=== PATIENT | female | born 1970 | race Caucasian/White ===

== ENCOUNTER 2022-05-16 16:11 | Outpatient (CLI) | payer OTHER, SELFPAY ==
[2022-05-16 20:01] LABS: Albumin* 4.2 g/dL (3.3-5.0); Chloride* 97 mmol/L (96-114); Sodium* 137 mmol/L (135-149)
[2022-05-16 20:02] LABS: Potassium* 4.3 mmol/L (3.6-5.1)
[2022-05-16 20:04] LABS: Alanine Aminotransferase* 15 U/L (4-35); Alkaline Phosphatase* 95 U/L (40-150); Aspartate Amino Transferase* 21 U/L (12-35); Bilirubin Total* 0.3 mg/dL (0.1-1.5); Blood Urea Nitrogen* 22 mg/dL (7-30); Calcium* 9.1 mg/dL (8.4-10.6); Carbon Dioxide* 30 mmol/L (20-32); Cholesterol* 161 mg/dL (90-199); Creatinine* 1.1 mg/dL (0.5-1.5); Estimated Glomerular Filt Rate 60 ml/min; Glucose* 94 mg/dL (60-115); Total Protein* 7.4 g/dL (6.0-8.3); Triglycerides* 257 mg/dL (40-149)
[2022-05-16 20:05] LABS: HDL Cholesterol* 47 mg/dL (>=50); LDL Cholesterol Calculated 63 mg/dL (<100)
[2022-05-16 20:25] LABS: Vitamin D 25 Hydroxy* 49 ng/mL (30-80)
[2022-05-16 22:07] LABS: Vitamin B12* 378 pg/mL (243-894)
== END 2022-05-16 16:12 | disposition home or self-care (01) ==
PROVIDERS: PCP Family Medicine; Visit Provider Family Medicine
DX: Z00.00 Encounter for general adult medical examination without abnormal findings (principal); I10 Essential (primary) hypertension; R53.83 Other fatigue; E78.5 Hyperlipidemia, unspecified; E53.8 Deficiency of other specified B group vitamins; N18.9 Chronic kidney disease, unspecified
CPT/HCPCS: 80053; 80061; 82306; 82607; 84443

== ENCOUNTER 2022-06-24 12:06 | Outpatient (CLI) | payer OTHER, SELFPAY | END 2022-06-24 12:07 | disposition home or self-care (01) | LOC: NFLDUCREF 06-29 09:51 | PROVIDERS: PCP Family Medicine; Visit Provider Family Medicine | DX: R05.9 Cough, unspecified (principal); R39.89 Other symptoms and signs involving the genitourinary system; N39.0 Urinary tract infection, site not specified | CPT/HCPCS: 87086; 87186 ==

== ENCOUNTER 2022-10-08 12:52 | Outpatient (CLI) | payer OTHER, SELFPAY ==
[2022-10-08 13:01] LABS: Bacteria Urine Few; Squamous Epithelial Cell Urine Few (None-Few); WBC Clumps Urine Few
== END 2022-10-08 12:53 | disposition home or self-care (01) ==
LOC: NFLDUCREF 12:52
PROVIDERS: PCP Family Medicine; Visit Provider Nurse Practitioner Family
DX: R30.0 Dysuria (principal); N39.0 Urinary tract infection, site not specified
CPT/HCPCS: 81015; 87086; 87186

== ENCOUNTER 2022-10-17 15:04 | Outpatient (CLI) | payer OTHER, SELFPAY | END 2022-10-17 15:05 | disposition home or self-care (01) | PROVIDERS: PCP Family Medicine; Visit Provider Family Medicine | DX: R30.0 Dysuria (principal); N39.0 Urinary tract infection, site not specified | CPT/HCPCS: 87086; 87186 ==

== ENCOUNTER 2023-03-29 07:46 | Outpatient (CLI) | payer OTHER, SELFPAY ==
--- NOTE | 2023-03-29 08:15 | CRLHL7_ITS ---
For Patients: As a result of the Century Cures Act, medical imaging exams and procedure reports are released immediately into your electronic medical record. You may view this report before your referring provider. If you have questions, please contact your health care provider. BILATERAL SCREENING MAMMOGRAM WITH COMPUTER-AIDED DETECTION AND TOMOSYNTHESIS TECHNIQUE: CC and MLO views were obtained. These mammographic images have been obtained using full-field digital technique. These mammographic images were interpreted with the benefit of computer-aided detection. Breast Tomosynthesis was used in this interpretation. COMPARISON FILM: 10/13/21, 09/27/20, 07/21/2019. FINDINGS: The breasts are heterogeneously dense, which may obscure small masses IMPRESSION: There is no radiographic evidence for malignancy. ASSESSMENT: BI-RADS Category 2: Benign RECOMMENDATION: Routine screening mammogram in 1 year. A lay language report of this examination will be provided to the patient. Kirk Plunkett M.D. Diagnostic Radiologist [email or web address] BRANDY/Dictated by: Kirk Plunkett MD @ 04/09/2023 8:21:00 AM (Electronically Signed)
== END 2023-03-29 07:47 | disposition home or self-care (01) ==
PROVIDERS: PCP Family Medicine; Visit Provider Family Medicine
DX: Z12.31 Encounter for screening mammogram for malignant neoplasm of breast (principal); R92.2 Inconclusive mammogram
CPT/HCPCS: 77063; 77067

== ENCOUNTER 2023-04-19 07:01 | Outpatient (CLI) | payer OTHER, SELFPAY | END 2023-04-19 07:02 | disposition home or self-care (01) | LOC: NFLDREF 07:02 | PROVIDERS: PCP Family Medicine; Visit Provider Family Medicine | DX: R30.0 Dysuria (principal); N39.0 Urinary tract infection, site not specified | CPT/HCPCS: 87086 ==

== ENCOUNTER 2023-09-13 14:31 | Emergency (ER) | payer OTHER, SELFPAY ==
[2023-09-13] VITALS (20 sets, daily range): BP systolic 111–149; BP diastolic 78–90; PULSE 66–85; RESP 20; TEMP 35.7; O2SAT 92–99; BMI 29.7
--- NOTE | 2023-09-13 16:12 | ED.GENADULT ---
HPI - General Adult General Chief complaint: Weakness Stated complaint: Covid+, weakness Time Seen by Provider: 09/13/23 15:45 History of Present Illness HPI narrative: This is a 52-year-old female with a past medical history including anxiety, depression, chronic pain syndrome (follows with [facility] and is on [place] 1 tablet daily p.r.n.), sleep apnea, vitamin B12 deficiency, migraine headaches, hyperlipidemia, GERD, fibromyalgia. She is positive for coronavirus and is currently on day 6 of illness. She has been vaccinated with the 1st 2 shots of the COVID series and 1 booster but has not had any booster for a couple of years. She 1st developed symptoms on Sunday that included sore throat. Since then she has also developed cough, nasal congestion. She has had fatigue, body aches, nausea and poor appetite. No vomiting. She has had some small volumes of watery diarrhea but no bloody or mucousy stool. She has been fatigued and sleepy or than normal. Today she has also developed a headache that she thinks is turning into 1 of her migraines. She has also developed some sharp and shooting pain affecting the right lateral side of her chest that radiates down to her right flank. This pain has been present throughout the day today continuously since this morning, now more than 8 hours. No clear exertional component. She is not on Paxlovid. Her mother is also ill with COVID. She think she may have picked up COVID at work. No swelling in her legs. No history of DVT or PE. No history of coronary disease. She has been having urinary frequency for the past few days and thinks that she has UTI. She has been using [id number] AZO and as a result her urine has been orange. Related Data Home Medications Medication Instructions Recorded Confirmed estradiol 0.01% (0.1 mg/gram) g vaginal 05/16/22 05/24/23 vaginal cream levetiracetam 500 mg tablet tab PO 05/16/22 05/24/23 medical cannabis PO 05/16/22 05/24/23 onabotulinumtoxinA [Botox] intradermal 05/16/22 05/24/23 pregabalin 150 mg capsule 150 mg PO QDAY 05/16/22 09/13/23 rimegepant 75 mg disintegrating 75 mg PO Q OTHER DAY 05/16/22 09/13/23 [facility]) vitamin B complex (B 1 tab PO QDAY 10/17/22 09/13/23 Complex-Vitamin B12 tablet) desvenlafaxine 100 mg 100 mg PO QDAY 04/19/23 09/13/23 tablet,extended release 24 hr folic acid 400 mcg tablet 0.4 mg PO QDAY 05/24/23 09/13/23 Previous Rx's Medication Instructions Recorded duloxetine 60 mg capsule,delayed 60 mg PO QDAY #90 caps 09/29/22 release trazodone 50 mg tablet 50 mg PO QDAY #90 tabs 09/29/22 lisinopril 20 1 tab PO QDAY #90 tabs 04/17/23 mg-hydrochlorothiazide 25 mg tablet epinephrine 0.3 mg/0.3 mL 0.3 mg (0.3 mL) IM ONCE PRN 05/24/23 injection, auto-injector hypersensitivity reaction #2 ea omeprazole 20 mg capsule,delayed 20 mg PO QDAY #90 caps 05/24/23 release omega-3 acid ethyl esters 1 gram 1 cap PO QDAY #90 caps 07/17/23 capsule metoprolol succinate 25 mg 25 mg PO QDAY #90 tabs 08/07/23 tablet,extended release 24 hr rosuvastatin 20 mg tablet 20 mg PO QDAY #90 tabs 08/17/23 bupropion HCl 150 mg 24 hr tablet, 450 mg (3 x 150 mg) PO QDAY #90 08/22/23 extended release tabs cephalexin 500 mg capsule 500 mg PO BID #10 caps 09/13/23 Allergies Allergy/AdvReac Type Severity Reaction Status Date / Time [facility] d Allergy Severe Uncoded 05/24/23 07:55 flagyl Allergy Intermediate Uncoded 05/24/23 07:55 [facility] Medical History (Updated 09/13/23 @ 19:51 by Osman Bird MD) Urinary tract infection ?N39.0 - Urinary tract infection, site not specified (ICD-10) Intertriginous candidiasis ?B37.2 - Candidiasis of skin and nail (ICD-10) History of diverticulitis of colon (2014) ?Z87.19 - Personal history of other diseases of the digestive system (ICD-10) Frequent UTI ?N39.0 - Urinary tract infection, site not specified (ICD-10) Persistent insomnia ?G47.00 - Insomnia, unspecified (ICD-10) CKD (chronic kidney disease) ?N18.9 - Chronic kidney disease, unspecified (ICD-10) History of basal cell carcinoma (BCC) (2013) ?Z85.828 - Personal history of other malignant neoplasm of skin (ICD-10) Post concussive syndrome (04/16/16) ?F07.81 - Postconcussional syndrome (ICD-10) Major depressive disorder, recurrent episode, moderate (1985) ?F33.1 - Major depressive disorder, recurrent, moderate (ICD-10) History of non anemic vitamin B12 deficiency ?Z86.39 - Personal history of other endocrine, nutritional and metabolic disease (ICD-10) Hyperlipidemia ?E78.5 - Hyperlipidemia, unspecified (ICD-10) History of adenomatous polyp of colon ?Z86.010 - Personal history of colonic polyps (ICD-10) GERD (gastroesophageal reflux disease) ?K21.9 - Gastro-esophageal reflux disease without esophagitis (ICD-10) Fibromyalgia ?M79.7 - Fibromyalgia (ICD-10) Essential hypertension ?I10 - Essential (primary) hypertension (ICD-10) Chronic pain syndrome ?G89.4 - Chronic pain syndrome (ICD-10) Surgical History (Updated 05/16/22 @ 17:01 by Lela Giraldo MD) History of appendectomy (1984) ?Z90.49 - Acquired absence of other specified parts of digestive tract (ICD-10) History of tonsillectomy (1974) ?Z90.89 - Acquired absence of other organs (ICD-10) History of open reduction and internal fixation (ORIF) procedure (2006) ?Z98.890 - Other specified postprocedural states (ICD-10) Hx of LASIK (1993) ?Z98.890 - Other specified postprocedural states (ICD-10) History of total abdominal hysterectomy (1999) ?Z90.710 - Acquired absence of both cervix and uterus (ICD-10) Swallowing study performed (11/24/21) ?Z13.810 - Encounter for screening for upper gastrointestinal disorder (ICD-10) History of lumbar fusion (07/06/16) ?Z98.1 - Arthrodesis status (ICD-10) Family History (Updated 05/16/22 @ 16:56 by Lela Giraldo MD) Unknown History of non anemic vitamin B12 deficiency Father Diabetes Coronary artery disease High blood pressure Anxiety and depression Neuroendocrine cancer Brother Diabetes Asthma High blood pressure Paternal Grandmother Diabetes Hyperlipidemia Mother History of anesthesia reaction Basal cell carcinoma Chronic fatigue syndrome Maternal Grandmother Osteoporosis Uncle Family history of prostate cancer Lymphoma Parkinsonism, Onset Age: 60 Aunt Breast cancer, Onset Age: 47 Ovarian cancer, Onset Age: 47 Family/Other Breast cancer, Onset Age: 62 Social History (Updated 05/24/23 @ 08:22 by Lela Giraldo MD) Narrative: Lives with significant other for of 9 years, 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 [employer], 2 adult children, [employer] daily work, Maritza Thomas smokes 1cigarettes a day started 12 months ago, before then quit at age 29 with 25 pack years, drinks 7 drinks a week, uses marijuana daily Smoking Status: Current every day smoker How often do you have a drink containing alcohol: 2-3 times a week How many standard drinks containing alcohol do you have on a typical day: 1 or 2 How often do you have six or more drinks on one occasion: Never AUDIT-C Alcohol total score: 3 Non-prescribed substance use: denies use Little interest or pleasure in doing things: several days Feeling down, depressed, or hopeless: not at all Exam Narrative: Exam Narrative: Constitutional: Appears well-developed and well-nourished. Alert. Conversant but flat affect. Poor eye contact. Keeping her eyes closed. HENT: Head: Atraumatic. Constitutional: Appears well-developed and well-nourished. Alert. Conversant. Non toxic. HENT: Head: Atraumatic. Nose: Nose normal. Mouth/Throat: Oral mucosa is clear and moist. no trismus. Wearing a face mask because she is COVID positive. Eyes: Conjunctivae normal. EOM normal. Pupils equal, round, and reactive to light. No scleral icterus. Neck: Normal range of motion. Neck supple. No tracheal deviation present. No JVD. Cardiovascular: Normal rate, regular rhythm. No gallop. No friction rub. No murmur heard. Symmetric radial and PT artery pulses Pulmonary/Chest: Effort normal. No stridor. No respiratory distress. No wheezes. No rales. No rhonchi . No ribcage tenderness. Abdominal: Soft. Bowel sounds normal. No distension. No mass. No tenderness. No rebound. No guarding. Musculoskeletal: RUE: Normal range of motion. No tenderness. No deformity LUE: Normal range of motion. No tenderness. No deformity RLE: Normal range of motion. No edema. No tenderness. No deformity LLE: Normal range of motion. No edema. No tenderness. No deformity Lymph: No cervical adenopathy. Neurological: Alert and oriented to person, place, and time. Normal strength. CN II-VII intact. No sensory deficit. GCS eye subscore is 4. GCS verbal subscore is 5. GCS motor subscore is 6. Normal coordination Skin: Skin is warm and dry. No rash noted. No pallor. Normal capillary refill. Psychiatric: Normal mood. Flat affect. Const: Vital Signs, click to edit/add: Vital Signs - 24 hr 09/13/23 14:42 09/13/23 15:47 09/13/23 15:48 Temperature 96.2 F L Pulse Rate 71 73 Pulse Rate [Pulse Oximeter] 85 Respiratory Rate 20 Blood Pressure 119/88 Blood Pressure [Ri ght Upper Arm] 119/81 Pulse Oximetry 97 99 99 Oxygen Delivery Me thod Room Air 09/13/23 16:00 09/13/23 16:01 09/13/23 16:15 Temperature Pulse Rate 73 70 73 Pulse Rate [Pulse Oximeter] Respiratory Rate Blood Pressure 125/89 Blood Pressure [Ri ght Upper Arm] Pulse Oximetry 95 94 92 Oxygen Delivery Me thod 09/13/23 16:30 09/13/23 16:32 09/13/23 16:45 Temperature Pulse Rate 79 78 75 Pulse Rate [Pulse Oximeter] Respiratory Rate Blood Pressure 129/90 H Blood Pressure [Ri ght Upper Arm] Pulse Oximetry 97 96 95 Oxygen Delivery Me thod 09/13/23 17:00 09/13/23 17:02 09/13/23 17:15 Temperature Pulse Rate 76 68 66 Pulse Rate [Pulse Oximeter] Respiratory Rate Blood Pressure 149/88 H Blood Pressure [Ri ght Upper Arm] Pulse Oximetry 99 97 98 Oxygen Delivery Me thod 09/13/23 17:30 09/13/23 17:45 09/13/23 18:00 Temperature Pulse Rate 67 73 77 Pulse Rate [Pulse Oximeter] Respiratory Rate Blood Pressure Blood Pressure [Ri ght Upper Arm] Pulse Oximetry 98 95 95 Oxygen Delivery Me thod 09/13/23 18:02 09/13/23 18:15 09/13/23 18:30 Temperature Pulse Rate 78 76 75 Pulse Rate [Pulse Oximeter] Respiratory Rate Blood Pressure 137/86 Blood Pressure [Ri ght Upper Arm] Pulse Oximetry 95 96 94 Oxygen Delivery Me thod 09/13/23 19:02 09/13/23 20:02 Temperature Pulse Rate Pulse Rate [Pulse Oximeter] Respiratory Rate Blood Pressure 111/78 113/78 Blood Pressure [Ri ght Upper Arm] Pulse Oximetry Oxygen Delivery Me thod Course Course ED Course: Recheck-smiling and more alert after medications for her headache. She endorses feeling much better. Vital Signs Vital signs: Initial Vital Signs Temperature 96.2 F L 09/13/23 14:42 Temperature Source Temporal Artery Scan 09/13/23 14:42 Pulse Rate 85 09/13/23 14:42 Respiratory Rate 20 09/13/23 14:42 Blood Pressure 119/81 09/13/23 14:42 Blood Pressure Mean 93 09/13/23 14:42 Blood Pressure Position Sitting 09/13/23 14:42 Pulse Oximetry 97 09/13/23 14:42 Oxygen Delivery Method Room Air 09/13/23 14:42 Vital Signs Temperature 96.2 F L 09/13/23 14:42 Pulse Rate 85 09/13/23 14:42 Respiratory Rate 20 09/13/23 14:42 Blood Pressure 119/81 09/13/23 14:42 Pulse Oximetry 97 09/13/23 14:42 Oxygen Delivery Method Room Air 09/13/23 14:42 Temperature 96.2 F L 09/13/23 14:42 Pulse Rate 75 09/13/23 18:30 Respiratory Rate 20 09/13/23 14:42 Blood Pressure 113/78 09/13/23 20:02 Pulse Oximetry 94 09/13/23 18:30 Oxygen Delivery Method Room Air 09/13/23 14:42 Medications Administered Medications: Discontinued Medications Generic Name Dose Route Start Last Admin Trade Name Freq PRN Reason Stop Dose Admin Cephalexin HCl 500 mg 09/13/23 19:51 09/13/23 20:00 Cephalexin 500 Mg Capsule PO 09/13/23 19:52 500 mg ONCE ONE Administration Diphenhydramine HCl 25 mg 09/13/23 16:37 09/13/23 17:00 Diphenhydramine 50 Mg/Ml Inj IVP 09/13/23 16:38 25 mg ONCE ONE Administration Sodium Chloride 1,000 mls @ 1,000 mls/hr 09/13/23 16:45 09/13/23 18:00 0.9 % Sodium Chloride 1000 Ml IV 09/13/23 17:44 Infused .Q1H EMIR Infusion Ketorolac Tromethamine 15 mg 09/13/23 16:37 09/13/23 17:00 Ketorolac 15 Mg/Ml Inj IVP 09/13/23 16:38 15 mg ONCE ONE Administration Metoclopramide HCl 10 mg 09/13/23 16:37 09/13/23 17:00 Metoclopramide Hcl 5 Mg/Ml Inj IVP 09/13/23 16:38 10 mg ONCE ONE Administration Medical Decision Making MDM Narrative Medical decision making narrative: This is a 52-year-old female who is generally healthy with a complex presentation. She is COVID positive and currently on day 8 of illness. She does not have any high risk clinical features but has not been on any antiviral treatment with Paxlovid. She now presents with worsening symptoms including right-sided chest pain, headache, as well as generalized weakness. In terms of her chest pain , Differential was broad. No evidence of palpitations, syncope or other cardiac dysrhythmia. We considered possible ACS, however workup with EKG and troponin is negative. Given time since onset of symptoms, I do not think the patient needs to be admitted for further sets of enzymes. EKG shows no evidence for pericarditis. Clinical presentation not suggestive of myocarditis. Chest x-ray shows no evidence for pneumonia, pneumothorax, pulmonary edema, pleural effusion, rib fracture, cardiomegaly. She is not hypoxic to suggest worsening respiratory failure in the setting of COVID. Mediastinum is normal on the x-ray. The patient has no ripping or tearing pain through to the back and has symmetric pulses on exam, no other acute neuro findings so I doubt aortic dissection. Risk of radiation and contrast exposure would outweigh the benefit of CT angiogram. We considered PE for this patient. Screening D-dimer is low low normal so would hold off on CT PA. No wheezing or bronchospasm to suggest COPD/asthma. No signs of chest wall cellulitis, shingles, injury. In terms of her headache, a broad differential diagnosis was considered including tension, migraine, analgesic rebound, occipital neuralgia, etc. Other less common but serious causes considered included meningitis, encephalitis, subarachnoid bleed, stroke, tumor, etc. The patient has no signs of serious headache etiologies at this point. I suspect headache is probably related to her coronavirus infection. No advanced imaging is indicated, nor is CT/lumbar puncture for SAH. Patients questions were answered and they feel improved after above interventions in ED. She was also complaining about possible UTI. Urinalysis shows positive nitrite but otherwise negative for pyuria. Will treat with a course of cephalexin. Clinically I do not think the patient's chest pain or back pain is related to pyelonephritis. At this point would hold off any CT imaging to look for obstructing kidney stones. Cephalexin 500 mg given orally here in the ER. Prescription for cephalexin 500 b.i.d. for 5 days provided. She is feeling better after fluids and meds given here in the ER. She is comfortable discharging home. Lab Data Labs: Lab Results 09/13/23 09/13/23 Range/Units 15:55 17:10 WBC 6.49 (4.50-11.00) K/uL RBC 4.73 (4.00-5.20) m/uL Hgb 14.8 (12.0-16.0) gm/dL Hct 44.1 (33.0-51.0) % MCV 93 (80-100) fL MCH 31 (26-34) pg MCHC 34 (32-36) gm/dL RDW Coeff of Thelma 12.0 (11.5-15.5) % Plt Count 252 (140-440) K/uL Neut % (Auto) 53.9 (42.0-72.0) % Lymph % (Auto) 36.4 (20-44) % [place] % (Auto) 5.7 (0.0-11.0) % Eos % (Auto) 3.5 (0.0-7.0) % Baso % (Auto) 0.5 (0.0-3.0) % Neut # (Auto) 3.50 (1.7-7.0) K/uL Lymph # (Auto) 2.36 (0.90-2.90) K/uL [place] # (Auto) 0.40 (0.00-0.90) K/UL Eos # (Auto) 0.23 (0.00-0.50) K/uL Baso # (Auto) 0.03 (0.00-0.30) K/uL Abs Immat Gran (auto) 0.00 (0.00-0.30) K/uL Imm/Tot Granulo (auto) 0.0 % D-Dimer Quant (PE/DVT) 0.43 (0.00-0.50) ug/ml Sodium 136 (135-149) mmol/L Potassium 3.4 L (3.6-5.1) mmol/L Chloride 101 (96-114) mmol/L Carbon Dioxide 27 (20-32) mmol/L Anion Gap 8 (7-15) mEq/L BUN 10 (7-30) mg/dL Creatinine 1.1 (0.5-1.5) mg/dL Estimated Creat Clear 55.37 Estimated GFR 60 ml/min Glucose 92 (60-115) mg/dL Calcium 8.6 (8.4-10.6) mg/dL Total Bilirubin 0.5 (0.1-1.5) mg/dL AST 33 (12-35) U/L ALT 33 (4-35) U/L Alkaline Phosphatase 102 (40-150) U/L Troponin I < 0.01 L (0.01-0.04) ng/mL Total Protein 7.6 (6.0-8.3) g/dL Albumin 4.5 (3.3-5.0) g/dL Urine Color Barry A (Yellow) Urine Appearance Clear (Clear) Urine pH 7.5 (5.0-8.5) Ur Specific [place] 1.015 (1.000-1.030) Urine Protein 1+ A (Negative) Urine Glucose (UA) Trace A (Negative) Urine Ketones Negative (Negative) Urine Blood Trace-intact A (Negative) Urine Nitrite Positive A (Negative) Urine Bilirubin Negative (Negative) Urine Urobilinogen 2.0 A (0.2-1.0) Ur Leukocyte Esterase Negative (Negative) Urine RBC 0-2 (0-2) Urine WBC 2-5 (0-5) Ur Squamous Epith Cells Few (None-Few) Urine Bacteria Few A (None) ECG Data Attestation: I personally reviewed and interpreted this ECG as follows: Interpretation: Normal sinus rhythm rate 82. Significant artifact from shivering obscures the baseline. OK 142 QRS axis normal axis. No pathologic Q-waves. ST segment/T wave: No ST segment elevation or depression. T-wave inversions leads V2, V3, V4 are nonspecific. QTc: 446 Discharge Plan Discharge Clinical Impression: UTI (urinary tract infection), COVID-19, Chest pain Patient Disposition: Home, Self-Care Condition: Stable Instructions: Chest Pain (DC), Urinary Tract Infection in Women (DC), COVID-19 (Coronavirus Disease 2019) (ED) Additional Instructions: Please return to the ER if you have worsening trouble breathing, oxygen levels below 90%, worsening chest pain, high fever, weakness, uncontrolled vomiting, or if you have any concerns. You do have a urinary tract infection. Please take your antibiotics twice a day for the next 5 days. Prescriptions: New cephalexin 500 mg capsule 500 mg PO BID Qty: 10 0RF No Action duloxetine 60 mg capsule,delayed release(DR/EC) 60 mg PO QDAY Qty: 90 4RF trazodone 50 mg tablet 50 mg PO QDAY Qty: 90 4RF desvenlafaxine 100 mg tablet extended release 24 hr 100 mg PO QDAY pregabalin 150 mg capsule 150 mg PO QDAY estradiol 0.01 % (0.1 mg/gram) cream vaginal levetiracetam 500 mg tablet PO Nurtec ODT 75 mg tablet,disintegrating 75 mg PO Q OTHER DAY onabotulinumtoxinA [Botox] intradermal Rx Instructions: q 3 months medical cannabis PO vitamin B complex [B Complex-Vitamin B12] Tablet 1 tab PO QDAY folic acid 400 mcg tablet 0.4 mg PO QDAY epinephrine 0.3 mg/0.3 mL auto-injector 0.3 mg IM ONCE PRN (Reason: hypersensitivity reaction) Qty: 2 0RF Rx Instructions: as a single dose; may repeat once omeprazole 20 mg capsule,delayed release(DR/EC) 20 mg PO QDAY Qty: 90 2RF lisinopril-hydrochlorothiazide 20-25 mg tablet 1 tab PO QDAY Qty: 90 0RF omega-3 acid ethyl esters 1 gram capsule 1 cap PO QDAY Qty: 90 0RF metoprolol succinate 25 mg tablet extended release 24 hr 25 mg PO QDAY Qty: 90 0RF rosuvastatin 20 mg tablet 20 mg PO QDAY Qty: 90 0RF bupropion HCl 150 mg tablet extended release 24 hr 450 mg PO QDAY Qty: 90 0RF Follow Up/Referrals: Lela Giraldo MD [Primary Care Provider] - Stand Alone Forms: [employer] Info Instructions
[2023-09-13 16:49] LABS: Basophils Absolute Auto 0.03 K/uL (0.00-0.30); Basophils Percent Auto 0.5 % (0.0-3.0); Eosinophils Absolute Auto 0.23 K/uL (0.00-0.50); Eosinophils Percent Auto 3.5 % (0.0-7.0); Hematocrit 44.1 % (33.0-51.0); Hemoglobin* 14.8 gm/dL (12.0-16.0); Lymphocytes Absolute Auto 2.36 K/uL (0.90-2.90); Lymphocytes Percent Auto 36.4 % (20-44); Mean Corpuscular HGB Conc 34 gm/dL (32-36); Mean Corpuscular Hemoglobin 31 pg (26-34); Mean Corpuscular Volume 93 fL (80-100); Monocytes Percent Auto 5.7 % (0.0-11.0); Neutrophils Percent Auto 53.9 % (42.0-72.0); Platelet Count* 252 K/uL (140-440); Red Blood Count 4.73 m/uL (4.00-5.20); White Blood Count* 6.49 K/uL (4.50-11.00)
[2023-09-13 16:52] LABS: Slide Review Reflex No
[2023-09-13] MEDS: diphenhydrAMINE 50 MG/ML inj 25 MG IVP (17:00)
[2023-09-13] MEDS: KETOROLAC 15 MG/ML inj IVP (17:00)
[2023-09-13] MEDS: 0.9 % SODIUM CHLORIDE 1000 ml 1,000 ML IV (17:00)
[2023-09-13] MEDS: METOCLOPRAMIDE HCL 5 MG/ML INJ 10 MG IVP (17:00)
[2023-09-13 17:04] LABS: Albumin* 4.5 g/dL (3.3-5.0); Chloride* 101 mmol/L (96-114); Potassium* 3.4 mmol/L (3.6-5.1); Sodium* 136 mmol/L (135-149)
[2023-09-13 17:06] LABS: Creatinine* 1.1 mg/dL (0.5-1.5); Est. Creatinine Clearance* 55.37; Estimated Glomerular Filt Rate 60 ml/min
[2023-09-13 17:07] LABS: Alanine Aminotransferase* 33 U/L (4-35); Alkaline Phosphatase* 102 U/L (40-150); Anion Gap 8 mEq/L (7-15); Aspartate Amino Transferase* 33 U/L (12-35); Bilirubin Total* 0.5 mg/dL (0.1-1.5); Blood Urea Nitrogen* 10 mg/dL (7-30); Carbon Dioxide* 27 mmol/L (20-32); Glucose* 92 mg/dL (60-115); Total Protein* 7.6 g/dL (6.0-8.3)
[2023-09-13 17:08] LABS: Calcium* 8.6 mg/dL (8.4-10.6); D Dimer Quantitative* 0.43 ug/ml (0.00-0.50)
[2023-09-13 17:20] LABS: Troponin I* < 0.01 ng/mL (0.01-0.04)
[2023-09-13 17:21] LABS: Appearance Urine Clear (Clear); Bilirubin Urine Negative (Negative); Blood Urine Trace-intact (Negative); Color Urine Orange (Yellow); Glucose Urine Trace (Negative); Ketones Urine Negative (Negative); Leukocyte Esterase Urine Negative (Negative); Nitrite Urine Positive (Negative); Protein Urine 1+ (Negative); Specific Gravity Urine 1.015 (1.000-1.030); pH Urine 7.5 (5.0-8.5)
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
--- OUTSIDE RECORDS SUMMARY | 2023-09-13 17:29 | XMS_ITS | Continuity of Care Document ---
Author Name Unknown Organization [facility] Address [address] [address] [place] [address] Phone Care Team Providers Care Supervisor Assembly Room Name Role Phone No Information Unavailable Unavailable [...] Encounter [facility] [address] [address], [place], [id number], [place] tel:[phone] No Information 2 No Information [facility], [address] [address], [place], [id number], [place] tel:[phone] [facility] No Information 0 Tamela Moffett. [address] [facility], [place] [address], [place], [place], [id number], [place]. tel:[phone] Referring Provider: Betina Knapp, [address], [address]. tel:[phone] Offic/outpt E&m Estab Low-mod [facility], [address] [address], [place], [id number], [place] tel:[phone] [facility] GI Symptoms or Concerns (chief complaint) DiarrheaDieta ry counseling and surveillanceE ssential (primary) hypertension 6 [facility] Shivani. [address] [place] [address], [id number], [place]. tel:[phone] Referring Provider: [place], [address] [place] [address], [address]. tel:[phone] [facility], [address] [address], [place], [id number], [place] tel:[phone] [facility] Diverticulosi s of colonDivertic ulosis Of Colon [address] [facility] [address], [id number], [place]. tel:[phone] Referring Provider: Referral Self, USE FOR SELF REFERRALS. Offic/outpt E&m Estab Mod-hi 2 [facility], [address] [address], [place], [id number], [place] tel:[phone] [facility] GI Symptoms or Concerns (chief complaint) DiarrheaDieta ry Surveil/couns el 4 Earle Aragon. [address] [facility], [address], [id number], [place]. tel:[phone] Alessia Wong CNP. tel:[phone] ng Provider: Alessia Wong CNP M, [address] [place], [address]. tel:[phone] [facility], [address] [address], [place], [place], [id number], [place] tel:[phone] [facility] Gastroesophag eal RefluxGastroe sophageal Reflux 3 Katie Mark. [address] [facility], [facility] [address], [place], [place], [id number], [place]. tel:[phone] Init Inpt Cons New/est Mod-hi [facility], [address] [address], [place], [place], [id number], [place] tel:[phone] No Information No Information Referring Provider: Gerson Dias, [address] [place], [address]. tel:[phone] Family History Family Member Type Diagnosis Age [...] free, 3 years or older Fluarix Quad [id number] administered Source: Other Provid er influenza virus [...] Registry Payers Payer name Insurance type Covered democrat ID Authoriza tion(s) No Information Social History [...]
--- OUTSIDE RECORDS SUMMARY | 2023-09-13 17:30 | XMS_ITS | Continuity of Care Document ---
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 Name Role Phone Christy Mendez CNP Unavailable Unavailable Allergies, Adverse Reactions, Alerts Substance Reaction Status Criticality metronidazole itching Active No Information CIPROFLOXACIN HCL itching Active No Informa tion ciprofloxacin itching Active No Information Medications Medication Instructions Dosage Effective Dates (start - stop) Status Comments Ubrelvy 100 mg tablet take 1 tablet by oral route once may repeat dose once after 2 hours if needed, not to exceed 200 mg in24 hours 100 MG - Active Qulipta 60 mg tablet take 1 tablet by oral route every day 60 MG - Active omeprazole 20 mg capsule,delayed release TAKE 1 CAPSULE(20 MG) BY MOUTH DAILY - Active METHYLPREDNISOLONE 4MG DOSPAK 21S FOLLOW PACKAGE DIRECTIONS - Active estradiol 0.01% (0.1 mg/gram) vaginal cream Apply small amount to the vaginal opening and urethra M, W, F @ bedtime - Active levetiracetam 500 mg tablet TAKE ONE TO TWO TABLETS BY MOUTH AT ONSET OF HEADACHE UP TO 7 TIMES PER MONTH - Active promethazine-DM 6.25 mg-15 mg/5 mL oral syrup Take 5 mLs by mouth every 4 hours as needed for cough - Active divalproex ER 250 mg tablet,extended release 24 hr TAKE 1 TABLET BY MOUTH AT NIGHT FOR 7 DAYS THEN TAKE 2 TABLETS BY MOUTH AT NIGHT - Active lisinopril 20 mg-hydrochlorothiazide 25 mg tablet TAKE ONE TABLET BY MOUTH ONCE DAILY - Active omega-3 acid ethyl esters 1 gram capsule Take 2 capsules (2 g) by mouth 2 times daily - Active nystatin 100,000 unit/gram topical cream Apply topically 2 times daily - Active metoprolol succinate ER 25 mg tablet,extended release 24 hr TAKE 1 TABLET(25 MG) BY MOUTH TWICE DAILY - Active rosuvastatin 20 mg tablet Take 1 tablet (20 mg) by mouth At Bedtime - Active EpiPen 2-Champ 0.3 mg/0.3 mL injection, auto-injector Inject 0.3 mLs (0.3 mg) into the muscle as needed for anaphylaxis - Active ondansetron 4 mg disintegrating tablet take 1 tablet by oral route every [address] on top of the tongue where they will dissolve, then swallow 4 MG - Active bupropion HCl XL 150 mg 24 hr tablet, extended release take 1 tablet by oral route every day 150 MG - Active PRILOSEC (unknown strength) Not Available - Active CALCIUM CITRATE-VIT D3 (unknown strength) Not Available - Active Wal-itin D 10 mg-240 mg tablet,extended release take 1 tablet by oral route every day 1.00 tablet - Active duloxetine 60 mg capsule,delayed release take 1 capsule by oral route every day 60 MG - Active trazodone 100 mg tablet take 1 tablet by oral route 2 times every day after meals 100 MG - Active Lyrica 150 mg capsule take 1 capsule by oral route 3 times every day 150 MG - Active pravastatin 20 mg tablet take 1 tablet by oral route every day 20 MG - Active diclofenac sodium 75 mg tablet,delayed release take 1 tablet by oral route 2 times every day 75 MG - Active hydrocodone 5 mg-acetaminophen 325 mg tablet take 1-2 tablets by oral route every 6 hours as needed for chronic pain - No Longer Active Nurtec ODT [address] 1 tablet by translingual route on top of tongue, allow to dissolve then swallow once as needed for migraine; max 1 dose/24 hrs 75 MG - No Longer Active Procedures Procedure Date INJ TRIGGER POINT, / MUSCL Kenalog Triamcinolone acetonide inj OFFICE/OUTPATIENT VISIT, EST Drug Urine Toxology With Chromatography Drug test def 8-14 classes Foll-up eval q3mo opiod tx OFFICE VISIT, EST TELEMEDICINE Foll-up eval q3mo opiod tx OFFICE VISIT, EST TELEMEDICINE Drug Urine Toxology With Chromatography Drug test def 8-14 classes INJ TRIGGER POINT, 09/18 [facility]OC[facility] Foll-up eval q3mo opiod tx OFFICE/OUTPATIENT VISIT, EST Foll-up eval q3mo opiod tx OFFICE VISIT, EST TELEMEDICINE Foll-up eval q3mo opiod tx OFFICE VISIT, EST TELEMEDICINE Drug Urine Toxology With Chromatography Drug test def 8-14 classes INJ TRIGGER POINT, 09/18 [facility] [place] Kenalog Triamcinolone acetonide inj Foll-up eval q3mo opiod tx OFFICE/OUTPATIENT VISIT, EST Foll-up eval q3mo opiod tx OFFICE VISIT, EST TELEMEDICINE Botulinum toxin a per unit Botulinum toxin a per unit Destroy Nerve Face For Chronic Migraine Foll-up eval q3mo opiod tx OFFICE VISIT, EST TELEMEDICINE Foll-up eval q3mo opiod tx OFFICE VISIT, EST TELEMEDICINE 21 Botulinum toxin a per unit Botulinum toxin a per unit Destroy Nerve Face For Chronic Migraine Foll-up eval q3mo opiod tx OFFICE VISIT, EST TELEMEDICINE 21 Foll-up eval q3mo opiod tx OFFICE VISIT, EST TELEMEDICINE 21 INJECT TRIGGER POINTS, =/> 3 Kenalog Triamcinolone acetonide inj Foll-up eval q3mo opiod tx OFFICE/OUTPATIENT VISIT, EST Botulinum toxin a per unit Destroy Nerve Face For Chronic Migraine Botulinum toxin a per unit OFFICE VISIT, EST TELEMEDICINE 21 Foll-up eval q3mo opiod tx INJECT TRIGGER POINTS, =/> 3 Kenalog Triamcinolone acetonide inj OFFICE/OUTPATIENT VISIT, EST Foll-up eval q3mo opiod tx Foll-up eval q3mo opiod tx OFFICE VISIT, EST TELEMEDICINE 21 Botulinum toxin a per unit Destroy Nerve Face For Chronic Migraine Botulinum toxin a per unit OFFICE VISIT, EST TELEMEDICINE 21 Foll-up eval q3mo opiod tx OFFICE VISIT, EST TELEMEDICINE 21 Foll-up eval q3mo opiod tx INJ TRIGGER POINT, 1/2 MUSCL Kenalog Triamcinolone acetonide inj OFFICE/OUTPATIENT VISIT, EST OFFICE VISIT, EST TELEMEDICINE 21 Foll-up eval q3mo opiod tx Drug Urine Toxology With Chromatography Drug test def 8-14 classes Botulinum toxin a per unit Destroy Nerve Face For Chronic Migraine Botulinum toxin a per unit OFFICE VISIT, EST TELEMEDICINE 20 Foll-up eval q3mo opiod tx Foll-up eval q3mo opiod tx OFFICE VISIT, EST TELEMEDICINE OFFICE VISIT, EST TELEMEDICINE 20 Foll-up eval q3mo opiod tx Botulinum toxin a per unit Destroy Nerve Face For Chronic Migraine OFFICE VISIT, EST TELEMEDICINE Foll-up eval q3mo opiod tx INJ TRIGGER POINT, 1/2 MUSCL Kenalog Triamcinolone acetonide inj Foll-up eval q3mo opiod tx OFFICE/OUTPATIENT VISIT, EST OFFICE VISIT, EST TELEMEDICINE 20 Foll-up eval q3mo opiod tx OFFICE VISIT, EST TELEMEDICINE 20 Foll-up eval q3mo opiod tx Botulinum toxin a per unit Destroy Nerve Face For Chronic Migraine Botulinum toxin a per unit INJ TRIGGER POINT, 1/2 MUSCL Kenalog Triamcinolone acetonide inj OFFICE/OUTPATIENT VISIT, EST Foll-up eval q3mo opiod tx OFFICE VISIT, EST TELEMEDICINE 20 Foll-up eval q3mo opiod tx OFFICE VISIT, EST TELEMEDICINE 20 Foll-up eval q3mo opiod tx OFFICE VISIT, EST TELEMEDICINE 20 RT Major Joint Or Bursa Inj With Ultraso und Injection, bupivicaine hydro Kenalog Triamcinolone acetonide inj Drug test def 15-21 classes Drug Urine Toxology With Chromatography Foll-up eval q3mo opiod tx OFFICE/OUTPATIENT VISIT, EST Botulinum toxin a per unit Destroy Nerve Face For Chronic Migraine Botulinum toxin a per unit Foll-up eval q3mo opiod tx OFFICE/OUTPATIENT VISIT, EST Foll-up eval q3mo opiod tx OFFICE/OUTPATIENT VISIT, EST OFFICE/OUTPATIENT VISIT, EST Botulinum toxin a per unit Destroy Nerve Face For Chronic Migraine RT Major Joint Or Bursa Inj With Ultraso und Injection, bupivicaine hydro Kenalog Triamcinolone acetonide inj Lidocaine injection OFFICE/OUTPATIENT VISIT, EST Drug test def 22+ classes Drug Urine Toxology With Chromatography PT-FOCUSED HLTH RISK ASSMT OFFICE CONSULTATION Advance Directives Directive Yes / No Effective Date File Name No Information Encounters Encounter Description Practice Location Reason(s) For Visit Diagnoses Date Provider Providers Copied on Encounter [facility], [address] [place] [address] [place], [id number] , [place] [phone] [facility] [place] No Information 3 Vanessa Christy. [address] [facility] [place], [id number] , [place]. [phone] OFFICE/OUTPAT IENT VISIT, EST [facility], [address] [place], [id number] , [place] [phone] [facility] [place] bilateral hip pain (chief complaint) Chronic migraine without aura, intractable, without status migrainosusChronic pain syndromeTrochanter ic bursitis, right hipMyalgia, other sitePostlaminectom y syndrome, not elsewhere classifiedLong term (current) use of opiate analgesicEncounter for therapeutic drug level monitoring 3 Jacquelyn Gupta. [address], [place], [id number] , [place]. [phone] Referring Provider: George Zurita, [address] [facility] [place], [address] . tel:[phone] [facility], [address] [place], [id number] , [place] tel: [phone] [facility] [place] No Information 3 Jacquelyn Gupta. [address] [place] [address] [address], [facility] [place], [id number] , [place]. tel: [phone] Referring Provider: George Zurita, [address] [place] [address] [place], [address] . tel:[phone] [facility], [address] [place] [address] [place], [id number] , [place] tel: [phone] [facility] No Information 3 Vanessa Harrison. [address] [facility] [place], [id number] , [place]. tel: [phone] OFFICE VISIT, EST TELEMEDICINE [facility], [address] [place] [address] [place], [id number] , [place] tel: [phone] [facility] bilateral hip pain (chief complaint) Chronic migraine without aura, intractable, without status migrainosusChronic pain syndromeTrochanter ic bursitis, right hipMyalgia, other sitePostlaminectom y syndrome, not elsewhere classifiedLong term (current) use of opiate analgesic 3 Jacquelyn Gupta. [address] [place] [address] [address], [facility] [place], [id number] , [place]. tel: [phone] Referring Provider: George Zurita, [address] [place] [address] [place], [address] . tel:[phone] OFFICE VISIT, EST TELEMEDICINE [facility], [address] [place] [address] [place], [id number] , [place] tel: [phone] [facility] [place] bilateral hip pain (chief complaint) Chronic migraine without aura, intractable, without status migrainosusChronic pain syndromeTrochanter ic bursitis, right hipMyalgia, other sitePostlaminectom y syndrome, not elsewhere classifiedLong term (current) use of opiate analgesic 3 Valladares Alonso. [address] [place] [address] [address], [place], [id number] , [place]. tel: [phone] Referring Provider: George Zurita, [address] [place], [address] . tel:[phone] [facility], [address] [place] [address] [place], [id number] , [place] tel: [phone] [facility] No Information 3 Valladares Alonso. [address], [place], [id number] , [place]. tel: [phone] OFFICE/OUTPAT IENT VISIT, [facility], [address] [place] [address] [place], [id number] , [place] tel: [phone] [facility] bilateral hip pain (chief complaint) Chronic migraine without aura, intractable, without status migrainosusChronic pain syndromeTrochanter ic bursitis, right hipMyalgia, other sitePostlaminectom y syndrome, not elsewhere classifiedLong term (current) use of opiate analgesicEncounter for therapeutic drug level monitoringEncounte r for screening for other disorder 3 Jacquelyn Gupta. [address], [place], [id number] , [place]. tel: [phone] Referring Provider: George Zurita, [address] [place] [address] [place], [address] . tel:[phone] OFFICE VISIT, [facility] TELEMEDICINE [facility], [address] [place] [address] [place], [id number] , [place] tel: [phone] [facility] Hip pain (chief complaint) Chronic migraine without aura, intractable, without status migrainosusChronic pain syndromeTrochanter ic bursitis, right hipMyalgia, other sitePostlaminectom y syndrome, not elsewhere classifiedLong term (current) use of opiate analgesic Aug- 2 Tigre Velasquez. [address], [place], [id number] , [place]. tel: [phone] Referring Provider: George Zurita, [address] [place] [address] [place], [address] . tel:[phone] OFFICE VISIT, [facility] TELEMEDICINE [facility], [address] [place] [address], [id number] , [place] tel: [phone] [facility] bilateral hip pain (chief complaint) Chronic migraine without aura, intractable, without status migrainosusChronic pain syndromeTrochanter ic bursitis, right hipMyalgia, other sitePostlaminectom y syndrome, not elsewhere classifiedLong term (current) use of opiate analgesic 0- 2 Tigre Royse. [address] [facility] [address], [place], [place], [id number] , [place]. tel: [phone] Referring Provider: George Zurita, [address] [place] [address] [place], [address] . tel:[phone] [facility], [address] [place] [address], [id number] , [place] tel: [phone] [facility] No Information Sep-0 2 Jacquelyn Gupta. [address] [place] [address] [address], [place], [place], [id number] , [place]. tel: [phone] OFFICE/OUTPAT IENT VISIT, [facility], [address] [place] [address], [id number] , [place] tel: [phone] [facility] bilateral hip pain (chief complaint) Chronic migraine without aura, intractable, without status migrainosusChronic pain syndromeTrochanter ic bursitis, right hipMyalgia, other sitePostlaminectom y syndrome, not elsewhere classifiedLong term (current) use of opiate analgesic Sep-0 2 Jacquelyn Lyleel. [address] [place] [address] [address], [facility] [place], [id number] , [place]. tel: [phone] Referring Provider: George Zurita, [address] [place] [address] [place], [address] . tel:[phone] OFFICE VISIT, EST TELEMEDICINE [facility], [address] [place] [address], [id number] , [place] tel: [phone] [facility] Hip Pain (chief complaint) Chronic migraine without aura, intractable, without status migrainosusChronic pain syndromeTrochanter ic bursitis, right hipMyalgia, other sitePostlaminectom y syndrome, not elsewhere classifiedLong term (current) use of opiate analgesic Nov- 2 Jacquelyn Gupta. [address] [place] [address] [address], [place], [place], [id number] , [place]. tel: [phone] [facility], [address] [place] [address], [id number] , [place] tel: [phone] [facility] Chronic migraine without aura, intractable, without status migrainosus 2 Jacquelyn Gupta. [address] [place] [address] [address], [place], [id number] , [place]. tel: [phone] Referring Provider: George Zurita, [address] [place], [place] [address], [address] . tel:[phone] OFFICE VISIT, EST TELEMEDICINE [facility], [address] [place] [address], [id number] , [place] tel: [phone] [facility] Hip Pain (chief complaint) Chronic pain syndromePostlamine ctomy syndrome, not elsewhere classifiedTrochant jatin bursitis, right hipLong term (current) use of opiate analgesicChronic migraine without aura, intractable, without status migrainosusMyalgia , other site 2 Jacquelyn Gupta. [address] [place] [address] [address], [place], [place], [id number] , [place]. tel: [phone] OFFICE VISIT, EST TELEMEDICINE [facility], [address] [place] [address], [id number] , [place] tel: [phone] [facility] bilateral hip pain (chief complaint) Chronic pain syndromePostlamine ctomy syndrome, not elsewhere classifiedTrochant jatin bursitis, right hipLong term (current) use of opiate analgesicChronic migraine without aura, intractable, without status migrainosusMyalgia , other site 1 Jacquelyn Gupta. [address] [place] [address] [address], [place], [id number] , [place]. tel: [phone] [facility], [address] [place] [address], [id number] , [place] tel: [phone] [facility] Chronic migraine without aura, intractable, without status migrainosus 1 Valladares Alonso. [address] [place] [address] [address], [place], [id number] , [place]. tel: [phone] Referring Provider: George Zurita, [address] [place], [place] [address], [address] . tel:[phone] OFFICE VISIT, EST TELEMEDICINE [facility], [address] [place] [address], [id number] , [place] tel: [phone] [facility] bilateral hip pain (chief complaint) Chronic pain syndromePostlamine ctomy syndrome, not elsewhere classifiedTrochant jatin bursitis, right hipLong term (current) use of opiate analgesicChronic migraine without aura, intractable, without status migrainosusMyalgia , other site 1 Valladares Alonso. [address] [place] [address] [address], [place], [id number] , [place]. tel: [phone] OFFICE VISIT, EST TELEMEDICINE [facility], [address] [place] [address], [id number] , [place] tel: [phone] [facility] Leg Pain (chief complaint) Chronic pain syndromePostlamine ctomy syndrome, not elsewhere classifiedTrochant jatin bursitis, right hipLong term (current) use of opiate analgesicChronic migraine without aura, intractable, without status migrainosusMyalgia , other site 0 1 Valladaresgreg Gupta. [address] [place] [address] [address], [place], [place], [id number] , [place]. tel: [phone] Referring Provider: George Zurita, [address] [place] [address] [place], [address] . tel:[phone] [facility], [address] [place] [address] [place], [id number] , [place] tel: [phone] [facility] [place] Postlaminectomy syndrome, not elsewhere classified 1 Valladares Alonso. [address] [place] [address] [address], [place], [id number] , [place]. tel: [phone] Referring Provider: George Zurita, [address] [place] [address] [place], [address] . tel:[phone] OFFICE/OUTPAT IENT VISIT, [facility], [address] [place] [address] [place], [id number] , [place] tel: [phone] [facility] right leg pain (chief complaint) Postlaminectomy syndrome, not elsewhere classifiedChronic pain syndromeTrochanter ic bursitis, right hipLong term (current) use of opiate analgesicChronic migraine without aura, intractable, without status migrainosusMyalgia , other site 1 Valladares Alonso. [address] [place] [address] [address], [place], [place], [id number] , [place]. tel: [phone] Referring Provider: George Zurita, [address] [place] [address] [place], [address] . tel:[phone] [facility], [address] [place] [address] [place], [place], [id number] , [place] tel: [phone] [facility] Chronic migraine without aura, intractable, without status migrainosus 1 Valladares Alonso. [address] [place] [address] [address], [place], [place], [id number] , [place]. tel: [phone] Referring Provider: George Zurita, [address] [place] [address] [place], [address] . tel:[phone] OFFICE VISIT, EST TELEMEDICINE [facility], [address] [place], [place], [id number] , [place] tel: [phone] [facility] Leg Pain (chief complaint) Postlaminectomy syndrome, not elsewhere classifiedChronic pain syndromeTrochanter ic bursitis, right hipLong term (current) use of opiate analgesicChronic migraine without aura, intractable, without status migrainosusMyalgia , other site 1 Jacquelyn Gupta. [address] [place] [address] [address], [place], [place], [id number] , [place]. tel: [phone] Referring Provider: George Zurita, [address] [place] [address] [place], [address] . tel:[phone] OFFICE/OUTPAT IENT VISIT, [facility], [address] [place] [address] [place], [place], [id number] , [place] tel: [phone] [facility] Leg Pain (chief complaint) Postlaminectomy syndrome, not elsewhere classifiedChronic pain syndromeTrochanter ic bursitis, right hipLong term (current) use of opiate analgesicChronic migraine without aura, intractable, without status migrainosusMyalgia , other site 1 Jacquelyn Gupta. [address] [place] [address] [address], [place], [id number] , [place]. tel: [phone] Referring Provider: George Zurita, [address] [place] [address] [place], [address] . tel:[phone] OFFICE VISIT, [facility], [address] [place] [address], [id number] , [place] tel: [phone] [facility] Leg Pain (chief complaint) Chronic migraine without aura, intractable, without status migrainosusMyalgia , other sitePostlaminectom y syndrome, not elsewhere classifiedChronic pain syndromeTrochanter ic bursitis, right hipLong term (current) use of opiate analgesic 1 Jacquelyn Gupta. [address] [place] [address] [address], [place], [place], [id number] , [place]. tel: [phone] Referring Provider: George Zuriat, [address] [place] [address] [place], [address] . tel:[phone] [facility], [address] [place] [address] [place], [id number] , [place] tel: [phone] [facility] Chronic migraine without aura, intractable, without status migrainosus Apr-0 1 Jacquelyn Gupta. [address] [place] [address] [address], [place], [id number] , [place]. tel: [phone] Referring Provider: George Zurita, [address] [place] [address] [place], [address] . tel:[phone] OFFICE VISIT, EST TELEMEDICINE [facility], [address] [place] [address] [place], [id number] , [place] tel: [phone] [facility] Leg Pain (chief complaint) Chronic migraine without aura, intractable, without status migrainosusMyalgia , other sitePostlaminectom y syndrome, not elsewhere classifiedTrochant jatin bursitis, right hipChronic pain syndromeLong term (current) use of opiate analgesic 1 Jacquelyn Gupta. [address] [place] [address] [address], [place], [id number] , [place]. tel: [phone] Referring Provider: George Zurita, [address] [place] [address] [place], [address] . tel:[phone] OFFICE VISIT, EST TELEMEDICINE [facility], [address] [place] [address] [place], [id number] , [place] tel: [phone] [facility] Leg Pain (chief complaint) Chronic migraine without aura, intractable, without status migrainosusMyalgia , other sitePostlaminectom y syndrome, not elsewhere classifiedTrochant jatin bursitis, right hipChronic pain syndromeLong term (current) use of opiate analgesic 1 Jacquelyn Gupta. [address] [place] [address] [address], [place], [place], [id number] , [place]. [phone] Referring Provider: George Zurita, [address] [place] [address] [place], [address] . tel:[phone] OFFICE/OUTPAT IENT VISIT, [facility], [address] [place] [address] [place], [place], [id number] , [place] tel: [phone] [facility] Leg Pain (chief complaint) Chronic migraine without aura, intractable, without status migrainosusMyalgia , other sitePostlaminectom y syndrome, not elsewhere classifiedTrochant jatin bursitis, right hipChronic pain syndromeLong term (current) use of opiate analgesic 1 Jacquelyn Gupta. [address] [place] [address] [address], SYED Turner, [id number] , [place]. tel: [phone] Referring Provider: George Zurita, [address] [place] [address] [place], [address] . tel:[phone] OFFICE VISIT, [facility] TELEMEDICINE [facility], [address] [place] [address] [place], [place], [id number] , [place] tel:[phone] [facility] Leg Pain (chief complaint) Chronic migraine without aura, intractable, without status migrainosusMyalgia , other sitePostlaminectom y syndrome, not elsewhere classifiedTrochant jaitn bursitis, right hipChronic pain syndromeLong term (current) use of opiate analgesic 1 Jacquelyn Gupta. [address] [place] [address] [address], SYED Turner, [id number] , [place]. tel:[phone] Referring Provider: George Zurita, [address] [place] [address] [place], [address] . tel:[phone] [facility], [address] [place] [address] [place], [place], [id number] , [place] tel:[phone] [facility] No Information 1 Jacquelyn Gupta. [address] [place] [address] [address], SYED Turner, [id number] , [place]. tel: [phone] Referring Provider: George Zurita, [address] [place] [address] [place], [address] . tel:[phone] [facility], [address] [place], [place] [address]Flor[place], [id number] , [place] tel: [phone] [facility] Chronic migraine without aura, intractable, without status migrainosus Jaylan-0 1 Jacquelyn Gupta. [address] [place] [address] [address], [place]i [place], [id number] , [place]. tel: [phone] Referring Provider: George Zurita, [address] [place] [address] [place], [address] . tel:[phone] OFFICE VISIT, EST TELEMEDICINE [facility], [address] [place] [address] [place], [id number] , [place] tel: [phone] [facility] Leg Pain (chief complaint) Myalgia, other siteChronic migraine without aura, intractable, without status migrainosusPostlam inectomy syndrome, not elsewhere classifiedChronic pain syndromeTrochanter ic bursitis, right hipLong term (current) use of opiate analgesic Aug-3 0 Jacquelyn Gupta. [address] [place] [address] [address], [place], [id number] , [place]. tel: [phone] Referring Provider: George Zurita, [address] [place] [address] [place], [address] . tel:[phone] OFFICE VISIT, EST TELEMEDICINE [facility], [address] [place] [address] [place], [id number] , [place] tel: [phone] [facility] [place] Leg Pain (chief complaint) Myalgia, other siteChronic migraine without aura, intractable, without status migrainosusPostlam inectomy syndrome, not elsewhere classifiedChronic pain syndromeTrochanter ic bursitis, right hipLong term (current) use of opiate analgesic Nov-2 0- 0 Jacquelyn Gupta. [address] [place] [address] [address], BurnsSYED shrestha, [id number] , [place]. tel: [phone] Referring Provider: George Zurita, [address] [place] [address] [place], [address] . tel:[phone] OFFICE VISIT, [facility] TELEMEDICINE [facility], [address] [place] [address] [place], [id number] , [place] tel: [phone] [facility] Leg Pain (chief complaint) Chronic migraine without aura, intractable, without status migrainosusPostlam inectomy syndrome, not elsewhere classifiedChronic pain syndromeTrochanter ic bursitis, right hipLong term (current) use of opiate analgesicMyalgia, other site 0 Jacquelyn Gupta. [address] [place] [address] [address], SYED Turner, [id number] , [place]. tel: [phone] Referring Provider: George Zurita, [address] [place] [address] [place], [address] . tel:[phone] [facility], [address] [place] [address] [place], [id number] , [place] tel: [phone] [facility] Chronic migraine without aura, intractable, without status migrainosus 0 Jacquelyn Gupta. [address] [place] [address] [address], SYED Turner, [id number] , [place]. tel: [phone] Referring Provider: George Zurita, [address] [place] [address] [place], [address] . tel:[phone] OFFICE VISIT, [facility] TELEMEDICINE [facility], [address] [place] [address] [place], [id number] , [place] tel: [phone] [facility] Leg Pain (chief complaint) Chronic migraine w/o aura, intractable, w/o stat migrPostlaminectom y syndrome, not elsewhere classifiedChronic pain syndromeTrochanter ic bursitis, right hipLong term (current) use of opiate analgesicMyalgia, other site 0 Jacquelyn Gupta. [address] [place] [address] [address], SYED Turner, [id number] , [place]. tel:[phone] Referring Provider: George Zurita, [address] [place] [address] [place], [address] . tel:[phone] OFFICE/OUTPAT IENT VISIT, [facility], [address] [place] [address] Chand[place], [id number] , [place] tel: [phone] [facility] Leg Pain (chief complaint) Chronic migraine w/o aura, intractable, w/o stat migrPostlaminectom y syndrome, not elsewhere classifiedChronic pain syndromeTrochanter ic bursitis, right hipLong term (current) use of opiate analgesicMyalgia, other site 0 Valladares Alonso. [address] [place] [address] [address], Yanci [place]ss [place], [id number] , [place]. tel: [phone] Referring Provider: George Zurita, [address] [place] [address] [place], [address] . tel:[phone] OFFICE VISIT, [facility], [address] [place] [address] [place], [place], [id number] , [place] tel: [phone] [facility] Leg Pain (chief complaint) Chronic migraine w/o aura, intractable, w/o stat migrPostlaminectom y syndrome, not elsewhere classifiedChronic pain syndromeTrochanter ic bursitis, right hipLong term (current) use of opiate analgesic 0 Jacquelyn Gupta. [address] [place] [address] [address], Yanci ross [place], [id number] , [place]. tel: [phone] Referring Provider: George Zurita, [address] [place] [address] [place], [address] . tel:[phone] OFFICE VISIT, [facility], [address] [place] [address] Chand[place], [id number] , [place] tel: [phone] [facility] Chronic migraine w/o aura, intractable, w/o stat migrPostlaminectom y syndrome, not elsewhere classifiedChronic pain syndromeTrochanter ic bursitis, right hipLong term (current) use of opiate analgesic 0 Jacquelyn Gupta. [address] [place] [address] [address], Yanci ross [place], [id number] , [place]. tel: [phone] Referring Provider: George Zurita, [address] [place] [address] [place], [address] . tel:[phone] [facility], [address] [place] [address] [place], [id number] , [place] tel: [phone] [facility] Chronic migraine w/o aura, intractable, w/o stat migr 0 Jacquelyn Gupta. [address] [place] [address] [address], Yanci [place]ss [place], [id number] , [place]. tel: [phone] Referring Provider: George Zurita, [address] [place] [address] [place], [address] . tel:[phone] OFFICE/OUTPAT IENT VISIT, [facility], [address] [place] [address] [place], [place], [id number] , [place] tel: [phone] [facility] Leg Pain (chief complaint) Postlaminectomy syndrome, not elsewhere classifiedTrochant jatin bursitis, right hipChronic migraine w/o aura, intractable, w/o stat migrLong term (current) use of opiate analgesicChronic pain syndromeMyalgia, other site 0 Jacquelyn Gupta. [address] [place] [address] [address], Y[place]i [place]ss [place], [id number] , [place]. tel: [phone] Referring Provider: George Zurita, [address] [place] [address] [place], [address] . tel:[phone] OFFICE VISIT, EST TELEMEDICINE [facility], [address] [place] [address] [place], [place], [id number] , [place] tel: [phone] [facility] Leg Pain (chief complaint) headache (chief complaint) Postlaminectomy syndrome, not elsewhere classifiedTrochant jatin bursitis, right hipChronic migraine w/o aura, intractable, w/o stat migrLong term (current) use of opiate analgesic 0 Jacquelyn Gupta. [address] [place] [address] [address], Y[place]i [place]ss, [place], [id number] , [place]. tel: [phone] Referring Provider: George Zurita, [address] [place] [address] [place], [address] . tel:[phone] OFFICE VISIT, EST TELEMEDICINE [facility], [address] [place] [address] [place], [place], [id number] , [place] tel: [phone] [facility] Leg Pain (chief complaint) Postlaminectomy syndrome, not elsewhere classifiedTrochant jatin bursitis, right hipChronic migraine w/o aura, intractable, w/o stat migrLong term (current) use of opiate analgesic 0 Valladaresgreg Gupta. [address] [place] [address] [address], Yanci ross [place], [id number] , [place]. tel: [phone] Referring Provider: George Zurita, [address] [place] [address] [place], [address] . tel:[phone] OFFICE VISIT, EST TELEMEDICINE [facility], [address] [place] [address] [place], [place], [id number] , [place] tel: [phone] [facility] Leg Pain (chief complaint) Postlaminectomy syndrome, not elsewhere classifiedTrochant jatin bursitis, right hipChronic migraine w/o aura, intractable, w/o stat migrLong term (current) use of opiate analgesic 0 Jacquelyn Gupta. [address] [place] [address] [address], [place], [place], [id number] , [place]. tel: [phone] Referring Provider: George Zurita, [address] [place] [address] [place], [address] . [phone] [facility], [address] [place] [address] [place], [place], [id number] , [place] tel: [phone] [facility] No Information 0 Glenys Mcfarlane. [facility], [address], [place], [address], [place]. tel: [phone] Referring Provider: George Zurita, [address] [place] [address] [place], [address] . tel:[phone] OFFICE/OUTPAT IENT VISIT, [facility], [address] [place] [address] [place], [place], [id number] , [place] tel: [phone] [facility] Leg Pain (chief complaint) long term acute care registered nurse (current) use of opiate analgesicPostlamin ectomy syndrome, not elsewhere classifiedTrochant jatin bursitis, right hipChronic migraine w/o aura, intractable, w/o stat migr Oct-0 3-202 0 Jacquelyn Gupta. [address] [place] [address] [address], [place], [place], [id number] , [place]. tel: [phone] Referring Provider: George Zurita, [address] [place] [address] [place], [address] . tel:[phone] [facility], [address] [place] [address] [place], [place], [id number] , [place] tel: [phone] [facility] Chronic migraine w/o aura, intractable, w/o stat migr Aug-3 0-201 9 Jacquelyn Gupta. [address] [place] [address] [address], [place], [place], [id number] , [place]. tel: [phone] Referring Provider: George Zurita, [address] [place] [address] [place], [address] . tel:[phone] OFFICE/OUTPAT IENT VISIT, [facility], [address] [place] [address] [place], [place], [id number] , [place] tel: [phone] [facility] Leg Pain (chief complaint) nursing home (current) use of opiate analgesicPostlamin ectomy syndrome, not elsewhere classifiedTrochant jatin bursitis, right hipChronic migraine w/o aura, intractable, w/o stat migr Dec-0 2-201 9 Valladaresgreg Gupta. [address] [place] [address] [address], [place], [place], [id number] , [place]. tel: [phone] Referring Provider: George Zurita, [address] [place], [address] . tel:[phone] OFFICE/OUTPAT IENT VISIT, [facility], [address] [place] [address] [place], [place], [id number] , [place] tel: [phone] [facility] Leg Pain (chief complaint) long term acute care registered nurse (current) use of opiate analgesicPostlamin ectomy syndrome, not elsewhere classifiedTrochant jatin bursitis, right hipChronic migraine w/o aura, intractable, w/o stat migr Nov-0 6-201 9 Jacquelyn Lyleel. [address] [place] [address] [address], [place], [place], [id number] , [place]. tel: [phone] Referring Provider: George Zurita, [address] [place] [address] [place], [address] . tel:[phone] OFFICE/OUTPAT IENT VISIT, [facility], [address] [place] [address] [place], [place], [id number] , [place] tel: [phone] [facility] Leg Pain (chief complaint) Chronic pain syndromeChronic migraine w/o aura, intractable, w/o stat migrTrochanteric bursitis, right hipPostlaminectomy syndrome, not elsewhere classifiedLong term (current) use of opiate analgesic Oct- 0-201 9 Jacquelyn Gupta. [address] [place] [address] [address], [place], [place], [id number] , [place]. tel: [phone] Referring Provider: George Zurita, [place], [address] . tel:[phone] [facility], [address] [place] [address] [place], [place], [id number] , [place] tel: [phone] [facility] Chronic migraine w/o aura, intractable, w/o stat migr Sep-2 3-201 9 Jacquelyn Gupta. [address] [place] [address] [address], [place], [place], [id number] , [place]. tel: [phone] Referring Provider: George Zurita, [address] [place] [address] [place], [address] . tel:[phone] [facility], [address] [place] [address], [id number] , [place] tel: [phone] [facility] No Information Veronicadony Mcfarlane. [facility], [address], [place], [address], [place]. tel: [phone] Referring Provider: George Zurita, [address] [place] [address] [place], [address] . tel:[phone] OFFICE/OUTPAT IENT VISIT, [facility], [address] [place] [address] [place], [place], [id number] , [place] tel: [phone] [facility] Leg Pain (chief complaint) Chronic pain syndromeTrochanter ic bursitis, right hipChronic migraine w/o aura, intractable, w/o stat migrPostlaminectom y syndrome, not elsewhere classifiedLong term (current) use of opiate analgesic Jacquelyn Gupta. [address] [place] [address] [address], [place], [place], [id number] , [place]. tel: [phone] Referring Provider: George Zurita, [address] [place], [place] [address], [address] . tel:[phone] OFFICE CONSULTATION [facility], [address] [place] [address], [id number] , [place] tel: [phone] [facility] Leg Pain (chief complaint) Chronic pain syndromeTrochanter ic bursitis, right hipChronic migraine w/o aura, intractable, w/o stat migrPostlaminectom y syndrome, not elsewhere classifiedEncounte r for therapeutic drug level monitoringLong term (current) use of opiate analgesic Veronicadony Mcfarlane. [facility], [address], [place], [address], [place]. tel: [phone] Referring Provider: Tan Chapa, [facility] [address], [address], [place], [address]. tel:[phone] Family History Family Member Type Diagnosis Age At Onset Father Problem (finding) back pain Payers Payer name Insurance type Covered constitution party ID Maegan osborn(s) [id number] Social History Type Description Quantity Date Captured Comments Alcohol Use Details Unknown Caffeine Use Details Unknown Tobacco Use Status No Information Smoking Status No Information Sex Female Chief Complaint And Reason For Visit No Information Reason For Referral Reason For Referral No Information Plan Of Treatment Date Type Action Status Goal Order Annual PT. 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 Due on due Goal OARS. Due on due Goal ALT (SGPT). Due on due Goal UDT. Due on due Goal SOCIETY EDITOR Scanned. Due on 020 due Goal AST (SGOT). Due on due Goal Creatinine. Due on due Goal Medication Recon ciliation. Due on due Goal Height. Due on d ue Goal Update Social History. Due o n due Goal Review Allergy List. Due on due Goal Weight. Due on d ue Goal Zoster vaccine (1st). Due on due Goal Lipid panel. Due on 023 due Goal HPV. Due on due Goal FIT. Due on due Goal CT-Colonography. Due on due Goal Tobacco Use. Due on due Goal PHQ-9. Due on du e Goal Unhealthy drug u se screening. Due on due Goal FIT-DNA. Due on due Goal Hepatitis C screening. Due o n due Goal Update Social History. Due o n due Goal UDT. Due on due Goal Weight. Due on d ue Goal PHQ-9. Due on du e Goal ALT (SGPT). 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 Due on due Goal Creatinine. Due on due Goal SOCIETY EDITOR Scanned. Due on due Goal FIT. Due on due Goal Lipid panel. Due on due Goal Tobacco Use. Due on due Goal CT-Colonography. Due on due Goal Height. Due on d ue Goal AST (SGOT). Due on due Goal Unhealthy drug u se screening. Due on due Goal Review Allergy List. Due on due Goal Order Annual PT. Due on due Goal OARS. Due on due Goal Medication Recon ciliation. Due on due Goal FIT-DNA. Due on due Goal Hepatitis C screening. Due o n due Goal HPV. Due on due Goal Zoster vaccine (). Due on due Goal Order Annual PT. Due on due Goal Tobacco Use. Due on 022 due Goal HPV. Due on due Goal ALT (SGPT). Due on due Goal AST (SGOT). Due on due Goal Height. Due on d ue Goal Lipid panel. Due on 023 due Goal SOCIETY EDITOR Scanned. Due on 020 due Goal PHQ-9. Due on du e Goal OARS. Due on due Goal FIT. Due on due Goal Creatinine. 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 Due on due Goal Zoster vaccine (1st). Due on due Goal UDT. Due on due Goal Medication Recon ciliation. Due on due Goal Unhealthy drug u se screening. Due on due Goal FIT-DNA. Due on due Goal Weight. Due on d ue Goal CT-Colonography. Due on due Goal Update Social History. Due o n due Goal Review Allergy List. Due on due Goal Hepatitis C screening. Due o n due Goal Creatinine. Due on due Goal Unhealthy drug u se screening. Due on due Goal Zoster vaccine (1st). Due on due Goal HPV. 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 Due on due Goal AST (SGOT). Due on due Goal UDT. Due on due Goal Tobacco Use. Due on due Goal ALT (SGPT). Due on due Goal FIT. Due on due Goal OARS. Due on due Goal FIT-DNA. Due on due Goal Weight. Due on d ue Goal Height. Due on d ue Goal SOCIETY EDITOR Scanned. Due on due Goal Review Allergy List. Due on due Goal Medication Recon ciliation. Due on due Goal Hepatitis C screening. Due o n due Goal Order Annual PT. Due on due Goal PHQ-9. Due on du e Goal Update Social History. Due o n due Goal CT-Colonography. Due on due Goal Lipid panel. Due on 023 due Goal Order Annual PT. 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 Due on due Goal AST (SGOT). Due on due Goal SOCIETY EDITOR Scanned. Due on 020 due Goal UDT. Due on due Goal OARS. Due on due Goal ALT (SGPT). Due on due Goal Medication Recon ciliation. Due on due Goal Creatinine. Due on due Goal Height. Due on d ue Goal Lipid panel. Due on due Goal FIT-DNA. Due on due Goal Unhealthy drug u se screening. Due on due Goal FIT. Due on due Goal HPV. Due on due Goal PHQ-9. Due on du e Goal Update Social History. Due o n due Goal Zoster vaccine (1st). Due on due Goal Weight. Due on d ue Goal Hepatitis C screening. Due o n due Goal Tobacco Use. Due on 022 due Goal Review Allergy List. Due on due Goal CT-Colonography. Due on due Goal SOCIETY EDITOR Scanned. Due on 020 due Goal Medication Recon ciliation. Due on due Goal CT-Colonography. Due on due Goal HPV. Due on due Goal Unhealthy drug u se screening. Due on due Goal FIT-DNA. Due on due Goal Order Annual PT. Due on due Goal FIT. Due on due Goal Creatinine. Due on due Goal AST (SGOT). Due on due Goal Hepatitis C screening. Due o n due Goal Update Social History. Due o n due Goal PHQ-9. Due on du e Goal Height. Due on d ue Goal Weight. Due on d ue Goal OARS. Due on due Goal UDT. Due on due Goal Lipid panel. Due on 023 due Goal Review Allergy List. Due on due Goal Tobacco Use. Due on 022 due Goal ALT (SGPT). 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 Due on due Goal Zoster vaccine (1st). Due on due Goal Tobacco Use. Due on 022 due Goal Review Allergy List. Due on due Goal Unhealthy drug u se screening. Due on due Goal Weight. Due on d ue Goal OARS. Due on due Goal UDT. Due on due Goal FIT. Due on due Goal Update Social History. Due o n due Goal Medication Recon ciliation. Due on due Goal PHQ-9. Due on du e Goal Order Annual PT. Due on due Goal CT-Colonography. Due on due Goal Lipid panel. Due on 023 due Goal AST (SGOT). Due on due Goal Hepatitis C screening. Due o n due Goal Height. Due on d ue Goal SOCIETY EDITOR Scanned. Due on 020 due Goal TRIMMER HELPER Paperwork. Due on due Goal Creatinine. Due on due Goal FIT-DNA. Due on due Goal ALT (SGPT). Due on due Goal HPV. Due on due Goal Zoster vaccine (1st). 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 Due on due Goal UDT. Due on due Goal OARS. Due on due Goal Creatinine. Due on due Goal Order Annual PT. Due on due Goal ALT (SGPT). Due on due Goal Height. Due on d ue Goal Tobacco Use. Due on due Goal Hepatitis C screening. Due o n due Goal HPV. Due on due Goal FIT-DNA. Due on due Goal FIT. Due on due Goal CT-Colonography. Due on due Goal Lipid panel. Due on due Goal Unhealthy drug u se screening. Due on due Goal PHQ-9. Due on du e Goal Medication Recon ciliation. Due on due Goal Update Social History. Due o n due Goal AST (SGOT). Due on due Goal SOCIETY EDITOR Scanned. Due on due Goal Weight. Due on d ue Goal Review Allergy List. Due on due Goal Zoster vaccine (1st). Due on due Goal UDT. Due on due Goal SOCIETY EDITOR Scanned. Due on due Goal OARS. Due on due Goal Creatinine. Due on due Goal ALT (SGPT). Due on due Goal AST (SGOT). 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 Due on due Goal Order Annual PT. Due on due Goal Medication Recon ciliation. Due on due Goal Height. Due on d ue Goal FIT. Due on due Goal Tobacco Use. Due on due Goal Lipid panel. Due on due Goal HPV. Due on due Goal Zoster vaccine (1st). Due on due Goal Unhealthy drug u se screening. Due on due Goal Update Social History. Due o n due Goal Review Allergy List. Due on due Goal Hepatitis C screening. Due o n due Goal FIT-DNA. Due on due Goal PHQ-9. Due on du e Goal CT-Colonography. Due on due Goal Weight. Due on d ue Goal Lipid panel. Due on due Goal ALT (SGPT). Due on due Goal FIT-DNA. Due on due Goal Height. Due on d ue Goal Unhealthy drug u se screening. 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 Due on due Goal Update Social History. Due o n due Goal Creatinine. Due on due Goal Tobacco Use. Due on due Goal OARS. Due on due Goal Hepatitis C screening. Due o n due Goal SOCIETY EDITOR Scanned. Due on due Goal CT-Colonography. Due on due Goal AST (SGOT). Due on due Goal Zoster vaccine (1st). Due on due Goal FIT. Due on due Goal Weight. Due on d ue Goal Review Allergy List. Due on due Goal HPV. Due on due Goal Medication Recon ciliation. Due on due Goal PHQ-9. Due on du e Goal Order Annual PT. Due on due Goal UDT. Due on due Goal UDT. Due on due Goal SOCIETY EDITOR Scanned. 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 Due on due Goal Medication Recon ciliation. Due on due Goal HPV. Due on due Goal Weight. Due on d ue Goal Unhealthy drug u se screening. Due on due Goal Review Allergy List. Due on due Goal CT-Colonography. Due on due Goal PHQ-9. Due on du e Goal Tobacco Use. Due on due Goal Order Annual PT. Due on due Goal Lipid panel. Due on due Goal Hepatitis C screening. Due o n due Goal Height. Due on d ue Goal Update Social History. Due o n due Goal FIT. Due on due Goal ALT (SGPT). Due on due Goal OARS. Due on due Goal AST (SGOT). Due on due Goal Creatinine. Due on due Goal Zoster vaccine (1st). Due on due Goal FIT-DNA. Due on due Goal SOCIETY EDITOR Scanned. Due on due Goal Update Social History. Due o n due Goal Weight. Due on d ue Goal PHQ-9. Due on du e Goal UDT. Due on due Goal Medication Recon ciliation. Due on due Goal Review Allergy List. Due on due Goal Order Annual PT. Due on due Goal Height. Due on d ue Goal Tobacco Use. 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 Due on due Goal ALT (SGPT). Due on due Goal AST (SGOT). Due on due Goal Creatinine. Due on due Goal OARS. Due on due Goal AST (SGOT). Due on due Goal SOCIETY EDITOR Scanned. Due on due Goal Order Annual PT. Due on due Goal Creatinine. 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 Due on due Goal OARS. Due on due Goal ALT (SGPT). Due on due Goal Weight. Due on d ue Goal Height. Due on d ue Goal Review Allergy List. Due on due Goal UDT. Due on due Goal PHQ-9. Due on du e Goal Update Social History. Due o n due Goal Medication Recon ciliation. Due on due Goal Tobacco Use. Due on due Goal Medication Recon ciliation. Due on due Goal Review Allergy List. Due on due Goal Creatinine. Due on due Goal Tobacco Use. Due on due Goal Update Social History. Due o n due Goal UDT. Due on due Goal OARS. Due on due Goal Height. Due on d ue Goal Weight. Due on d ue Goal Order Annual PT. Due on due Goal AST (SGOT). Due on due Goal SOCIETY EDITOR Scanned. 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 Due on due Goal ALT (SGPT). Due on due Goal PHQ-9. Due on du e Goal Order Annual PT. 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 Due on due Goal AST (SGOT). Due on due Goal SOCIETY EDITOR Scanned. Due on due Goal Height. Due on d ue Goal Medication Recon ciliation. Due on due Goal OARS. Due on due Goal Update Social History. Due o n due Goal Tobacco Use. Due on due Goal UDT. Due on due Goal ALT (SGPT). Due on due Goal Review Allergy List. Due on due Goal Weight. Due on d ue Goal Creatinine. Due on due Goal PHQ-9. Due on du e Goal Update Social History. Due o n due Goal TRIMMER HELPER Paperwork. Due on due Goal PHQ-9. Due on du e Goal Creatinine. Due on due Goal OARS. Due on due Goal Tobacco Use. Due on due Goal UDT. Due on due Goal SOCIETY EDITOR Scanned. Due on due Goal Order Annual PT. Due on due Goal Height. Due on d ue Goal Weight. Due on d ue Goal ALT (SGPT). Due on due Goal Review Allergy List. Due on due Goal AST (SGOT). Due on due Goal Medication Recon ciliation. Due on due Goal OARS. Due on due Goal Medication Recon ciliation. Due on due Goal Update Social History. Due o n due Goal PHQ-9. Due on du e Goal Order Annual PT. Due on due Goal Review Allergy List. Due on due Goal ALT (SGPT). Due on due Goal UDT. Due on due Goal Tobacco Use. Due on due Goal Creatinine. Due on due Goal AST (SGOT). 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 Due on due Goal Height. Due on d ue Goal Weight. Due on d ue Goal SOCIETY EDITOR Scanned. Due on due Goal ALT (SGPT). Due on due Goal Creatinine. Due on due Goal UDT. Due on due Goal Order Annual PT. Due on due Goal Tobacco Use. Due on due Goal Weight. Due on d ue Goal SOCIETY EDITOR Scanned. Due on due Goal Review Allergy List. Due on due Goal AST (SGOT). 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 Due on due Goal OARS. Due on due Goal Height. Due on d ue Goal Medication Recon ciliation. Due on due Goal PHQ-9. Due on du e Goal Update Social History. Due o n due Goal ALT (SGPT). Due on due Goal PHQ-9. Due on du e Goal Height. Due on d ue Goal Medication Recon ciliation. Due on due Goal OARS. Due on due Goal AST (SGOT). Due on due Goal Review Allergy List. Due on due Goal Creatinine. Due on due Goal SOCIETY EDITOR Scanned. 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 Due on due Goal Order Annual PT. Due on due Goal UDT. Due on due Goal Weight. Due on d ue Goal Update Social History. Due o n due Goal Tobacco Use. 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 Due on due Goal Order Annual PT. Due on due Goal AST (SGOT). Due on due Goal OARS. Due on due Goal SOCIETY EDITOR Scanned. Due on due Goal ALT (SGPT). Due on due Goal PHQ-9. Due on du e Goal Height. Due on d ue Goal Creatinine. Due on due Goal Review Allergy List. Due on due Goal UDT. Due on due Goal Update Social History. Due o n due Goal Medication Recon ciliation. Due on due Goal Tobacco Use. Due on due Goal Weight. Due on d ue Goal Tobacco Use. Due on due Goal Height. Due on d ue Goal Creatinine. Due on due Goal OARS. Due on due Goal AST (SGOT). Due on due Goal Weight. 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 Due on due Goal Order Annual PT. Due on due Goal Review Allergy List. Due on due Goal Medication Recon ciliation. Due on due Goal UDT. Due on due Goal ALT (SGPT). Due on due Goal SOCIETY EDITOR Scanned. Due on due Goal PHQ-9. Due on du e Goal Update Social History. Due o n due Goal SOCIETY EDITOR Scanned. Due on due Goal Review Allergy List. Due on due Goal Order Annual PT. Due on due Goal AST (SGOT). Due on due Goal PHQ-9. Due on du e Goal UDT. Due on due Goal Height. Due on d ue Goal Creatinine. Due on due Goal Tobacco Use. Due on due Goal ALT (SGPT). Due on due Goal Update Social History. Due o n due Goal Weight. 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 Due on due Goal OARS. Due on due Goal Medication Recon ciliation. Due on due Goal PHQ-9. Due on du e Goal Review Allergy List. Due on due Goal Height. Due on d ue Goal Medication Recon ciliation. Due on due Goal Update Social History. Due o n due Goal Weight. Due on d ue Goal Tobacco Use. Due on due Goal OARS. 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 Due on due Goal Creatinine. Due on due Goal ALT (SGPT). Due on due Goal UDT. Due on due Goal Order Annual PT. Due on due Goal SOCIETY EDITOR Scanned. Due on due Goal AST (SGOT). Due on due Referral Ordered: Kathy Glover -Family Medicine (related to Chronic migraine w/o aura, intractable, w/o stat migr) ordered Referral Referred To: Adalberto[facility] [address] [place], [address] [phone] Ordered: Referrals: Family Medicine. MelisatylerchrisWilliKathy ordered Future Order: Lab Order Drug Kasia t Def 22+ Classes (G0483), Ordered on: Ordered Future Order: Lab Order COMPLIAN CE DRUG ANALYSIS, URINE, WITH MED REPORT ([id number]), Ordered on: Ordered Future Order: Lab Order Drug Kasia t Def 22+ Classes ([id number]), Ordered on: Ordered History Of Present Illness Encounter Date Complaint History Of Prese nt Illness Comments: Yenni is a 52 y/o woman seen in clinic for follow up and medication refill regarding chronic bilateral hip pain and migraines. Also c/o lower back pain. She has not had a follow up since 12/04/2022. Pain has worsened since RADHA, primarily with her hips. Would like to have TPIs in her hips today.States migraines have been ongoing, but has been approved to have Botox at a higher dose and more often.Notes she is enjoying her new job at [employer] in [place]. She will be switching insurances at the end of the year. Also states she has hit her insurance deductible so she is able to have monthly visits.Current medication regimen provides significant pain relief and allows increased functionality. Presents with a small surplus of prescribed medications today as she has #3 tabs left from her November 2022 rx. Reports that she would like to trial Qulipta and Ubrelvy again. Denies side effects from current medication regimen. No other concerns today. bilateral hip pain Duration screen cleaner christine. The problem is worsening. The pain is recurring. Location of pain is bilateral. The client describes the pain as sharp. Symptom is aggravated by lifting weight, standing, housework and twisting. Relieving factors include ice and medications. Pertinent negatives include fever. bilateral hip pain Duration screen cleaner christine. The problem is worsening. It occurs constantly. Location of pain is bilateral lower back. Pertinent negatives include fever. Comments: Yenni is a 52 y/o woman seen virtually for follow up and medication refill regarding chronic bilateral hip pain and migraines. Also c/o lower back pain. Pain has worsened since RADHA and pain level averages 5/10. Continues HEP including stretching. Plans to f/w chiropractic d/t instances of her back going out this past month.Current medication regimen provides 85% pain relief and allows increased functionality. Presents with a small surplus of prescribed medications today. Reports that she decided to hold off on trialling Qulipta and Ubrelvy at this time. Denies side effects from current medication regimen. States that she may hold off on office visits for a few months d/t cost. No other concerns today. bilateral hip pain Severity leve l is mild. Duration chronic. The problem is worsening. It occurs constantly. Location of pain is bilateral. Comments: Yenni is a 51 y/o woman here for virtual follow up and medication refill regarding chronic bilateral hip pain and migraines. Pain has worsened since RADHA and pain level averages 5/10. Continues HEP including stretching. Continues to reports incidents of falls. States that her most recent fall was on 09/30/22 while out shoveling. TPIS completed RADHA provided significant benefit.Completed Botox at [facility] in [place] on 09/26/22.Current medication regimen provides 75% pain relief and allows increased functionality. Presents on track with prescribed medication. Will hold off on starting Qulipta and Ubrelvy for now. Denies side effects from current medication regimen. No other concerns today. bilateral hip pain Duration screen cleaner christine. Location of pain is bilateral. Pertinent negatives include fever. Comments: Yenni is a 51 y/o woman here for follow up consult and medication refill regarding chronic bilateral hip pain and migraines. Pain has worsened since RADHA and pain level averages 5/10. Continues HEP including stretching. Continues to reports incidents of falls. States that her most recent fall was on 09/30/22 while out shoveling.Completed Botox at [facility] in [place] on 09/26/22.Requests provider to check her back in the location where she is experiencing pain.Current medication regimen provides 85% pain relief and allows increased functionality. Denies side effects from current medication regimen.Of note, patient started a new job since last visit. States that it has not been going well thus far.No other concerns today. Comments: Yenni is a 51 y/o woman seen virtually for follow up consult and medication refill regarding chronic bilateral hip pain and migraines. Pain has worsened since RADHA and pain level averages 5/10. Continues HEP including stretching. Reports that she fell on ice last week (week of 08/28/22) which increased her pain level.Scheduled to have Botox at [facility] in [place] on 09/26/22.Current medication regimen provides 85% pain relief and allows increased functionality. Denies side effects from current medication regimen.No other concerns today. Hip pain Duration chronic . The problem is worsening. It occurs constantly. Location of pain is bilateral. Relieving factors include medications. Pertinent negatives include fever. Comments: Yenni is a 51 y/o woman seen virtually for follow up consult and medication refill regarding chronic bilateral hip pain and migraines. This is my first evaluation of the patient who is routinely followed by my colleague, Alonso HARE. Pain is worse since RADHA and pain level averages 7/10. Specifically reports that her migraines have worsened which she notes may be d/t not having Botox injections recently. Reports that she is scheduled to f/w neurologist, Dr. Cao, on 08/23/22 for Botox injections.Current medication regimen provides 80% pain relief and allows increased functionality. Denies side effects from current medication regimen.No other concerns today. bilateral hip pain Duration screen cleaner christine. The problem is worsening. It occurs constantly. Location of pain is bilateral. Pertinent negatives include fever. bilateral hip pain Severity leve l is moderate. Duration chronic. The problem is worsening. It occurs constantly. Location of pain is bilateral. Symptom is aggravated by active movement, climbing stairs, descending stairs, housework and twisting. Relieving factors include rest, lying down, changing positions, heat and meds. Pertinent negatives include fever. Comments: Yenni is here today for follow up and medication management, last seen 12/09/21. She is followed for bilateral hip pain and migraines. States her pain has been worse since last OV. Hopes to continue Botox elsewhere. Requests TPIs today.States she has started a new job and has new insurance. This is why she has not f/u since December. States she tried going without medication, but she struggled.Reports current medication regimen provides 90% pain relief and allows increased functionality. Denies side effects from current medication regimen. Presents d/t of prescribed medication, which is on track as she was d/o 01/07/22. Trialled CBD gummies with significant benefit. No other concerns today. Hip Pain (comments) Yenni is her e today for virtual follow up and medication management. She is followed for bilateral hip pain and migraines. States her pain has been relatively stable since last OV. She states that regular Botox injections continue to provide significant benefit for her chronic migraines. States they have significantly decreased severity and quantity of her migraines. States she has a consult scheduled with [facility] and is hopeful they will take over her Botox injection. Work, caring for her grandkids, and gardening continue to be her primary pain aggravators. Denies additional concerns since last OV. Reports current medication regimen provides 50% pain relief and allows increased functionality. Denies side effects from current medication regimen. No other concerns today. Hip Pain Severity level i s mild. Duration chronic. The problem is showing no change. It occurs constantly. Location of pain is hips, back, migraines. The patient describes the pain as an ache. Symptom is aggravated by lifting weight and housework. Relieving factors include heat, massage and medications. Pertinent negatives include fever. Hip Pain Severity level i s mild. Duration chronic. The problem is showing no change. It occurs constantly. Location of pain is lower back, migraine. The patient describes the pain as an ache. Symptom is aggravated by active movement, lifting weight, housework and bending. Relieving factors include chiro and medications. Pertinent negatives include fever. Hip Pain (comments) Yenni is her e today for follow up and medication management. She is followed for bilateral hip pain and migraines. States her hip pain has been stable and well-managed since last OV. Denies new concerns. States she has not yet established with neurology and requests [facility] to do one last Botox injection. Reports current medication regimen provides 50% pain relief and allows increased functionality. Denies side effects from current medication regimen. No other concerns today. bilateral hip pain Severity lizbet marshall is moderate. Duration chronic. The problem is showing no change. It occurs constantly. Location of pain is back, migraine. The patient describes the pain as an ache and sharp. Symptom is aggravated by bending, housework, lifting and movement. Relieving factors include chiropractic and medications. Pertinent negatives include fever. bilateral hip pain (comments) Funmi miranda is here today for follow up and medication management. Reports >50% relief with their current regimen and denies any side effects.Continues to have bilateral hip pain. States her pain has been stable since last OV. 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 Current medication provides significant relief and allows her to complete her ADLs. She requests a refill today. Patient is not accompanied today and has no other questions or concerns. bilateral hip pain Severity lizbet l is moderate. Duration chronic. It occurs occasionally. Location of pain is bilateral. Symptom is aggravated by active movement, jumping and passive movement. Relieving factors include rest and physical therapy. Pertinent negatives include fever. bilateral hip pain (comments) Funmi miranda is here today for follow up and medication management. Reports >50% relief with their current regimen and denies any side effects.Reports that her headaches has been worsening. Inquires today when she will be able to repeat Botox injections.Continues to have residual bilateral hip pain, s/p TPIs. However, TPIs did provide minimal relief to take the sharpness off. She is requesting imaging today of her hips since this has been present for more than 3 months. 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 Leg Pain Duration: chroni c. Severity level is 3. It occurs intermittently and is stable. Location: lower back and headaches. The pain is aching. The pain is aggravated by lifting and housework. The pain is relieved by chiropractic and medications. Leg Pain (comments) Yenni is her e for a follow up and medications refill. Low back, right leg, and right hip pain persists this month, but medication does help to some extent. Reports overall pain to be stable since last OV. Reports that hip pain worsened immediately following TPIs performed at last OV. However, she states that pain increased pain subsided in a couple days after the injections started working. Reports current medication regimen provides >50% pain relief and allows for increased functionality. Requests an increase in current pain medication regimen. Denies side effects from current medication regimen. 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 Patient is not accompanied. No other concerns today. right leg pain (comments) Yenni is here for a follow up and medications refill. Low back, right leg, and right hip pain persists this month, but medication does help to some extent. Reports that her headaches have improved since her Botox on 04/01. She requests repeat TPIs as her hips having been worse. States that she has been driving her mother back and forth from the [facility] which has aggravated her pain. Notes that she had TPIs on 01/2021 which were very beneficial for her hip and is requesting to repeat them today.Reports current medication regimen provides >50% pain relief and allows for increased functionality. Denies side effects from current medication regimen. Requests a refill of her Haworth which she uses sparingly.Patient is not accompanied. No other concerns today. right leg pain Duration: chroni c. It occurs constantly and is worsening. Location: right. The pain is aching and sharp. The pain is aggravated by bending, climbing (and descending) stairs, lifting, movement, sitting, walking and standing. The pain is relieved by pain/RX meds and rest. Leg Pain (comments) Yenni is her e for follow-up and medication refills. Ongoing back pain persists, tolerable with medication. Pain has returned to baseline since last OV. Notes TPIs started providing significant relief after two weeks. She is looking forward to Botox injections on 04/01/21. She requests a refill of her current medication regimen. Reports current medication regimen provides at least 50% pain relief. Denies side effects from current medication regimen. No other concerns today. Leg Pain Duration: chroni c. It occurs constantly and is stable. Location: bilateral. The pain is aching, burning and sharp. The pain is aggravated by bending, climbing (and descending) stairs, lifting, movement and walking. The pain is relieved by heat, ice, massage, pain/RX meds and rest. Leg Pain (comments) Yenni is her e for follow-up and medication refills. Ongoing hip and back pain persists, tolerable with medication. She reports an increase in L hip pain on both the inside and outside of her hips. She requests repeat TPIs today as they have provided significant relief in the past. She would like to continue with the current medication regimen as it allows her to complete her ADLs. Reports current medication regimen provides at least 50% pain relief. Denies side effects from current medication regimen. No other concerns today. Leg Pain Duration: chroni c. Severity level is 7. It occurs constantly and is stable. Location: bilateral. The pain is aching, burning and sharp. The pain is aggravated by bending, climbing (and descending) stairs, lifting, movement and walking. The pain is relieved by heat, ice, pain/RX meds and rest. Leg Pain Duration: chroni c. Severity level is 8. It occurs constantly and is stable. Location: bilateral. The pain is aching, burning and sharp. The pain is aggravated by bending, climbing (and descending) stairs, lifting, movement and walking. The pain is relieved by heat, ice, pain/RX meds and rest. Leg Pain (comments) Yenni is her e for virtual follow-up and medication refills. Ongoing low back pain persists, tolerable with medication. Pain has been stable. Botox injections administered on 12/24/20 have started providing relief. She requests a refill of her current medication regimen as it allows her to complete her ADLs.Reports current medication regimen provides at least 50% pain relief. Denies side effects from current medication regimen. No other concerns today. Leg Pain (comments) Yenni is her e for follow-up and medication refills. Ongoing low back pain persists, tolerable with medication. Pain has been fluctuating. She has been experiencing a diverticulitis flare and was given antibiotics. Migraines have been stable. She requests a refill of her current medication regimen as it allows her to comlete her ADLs.Reports current medication regimen provides at least 50% pain relief. Denies side effects from current medication regimen. No other concerns today. Leg Pain Duration: chroni c. Severity level is 7. It occurs constantly and is stable. Location: bilateral. The pain is aching, burning and sharp. The pain is aggravated by bending, climbing (and descending) stairs, lifting, movement, walking and standing. The pain is relieved by ice, pain/RX meds and rest. Leg Pain (comments) Yenni is her e for follow-up and medication refills. She presents with migraines which have been worse. She has been experiencing a migraine for the last 5 days but has not gone to the ER yet[facility] and [facility] her stay [facility] at night. Notes steroid paks have been helpful in the past. Requests a refill of her current medication regimen.Reports current medication regimen provides at least 50% pain relief. Denies side effects from current medication regimen. No other concerns today. Leg Pain Duration: chroni c. Severity level is 8. It occurs constantly and is worsening. Location: head and legs. The pain is aching. The pain is aggravated by bending and climbing (and descending) stairs. The pain is relieved by heat, ice and pain/RX meds. Leg Pain Duration: chroni c. It occurs constantly and is worsening. Location: headaches. The pain is aching, burning and sharp. The pain is aggravated by bending, climbing (and descending) stairs, lifting, movement, pushing and walking. The pain is relieved by heat, ice, pain/RX meds and rest. Leg Pain (comments) Yenni is her e for follow-up. She presents with a severe migraine localized behind her L eye which has been occurring since 10/09. She has tried Haworth, cannabis and Levetiracetam and the migraine is only getting worse. She was planning on going to ED this morning if she could not been seen today. She inquires about a Toradol injection or any alternative rescue medication she could trial.She is not accompanied. No other concerns today. Leg Pain Duration: chroni c. Severity level is 5. It occurs constantly and is stable. Location: back. The pain is aching, burning and sharp. The pain is aggravated by bending, climbing (and descending) stairs, lifting, movement, pushing, walking and standing. The pain is relieved by heat, ice and pain/RX meds. Leg Pain (comments) Yenni is her e today for follow up and medication management. Reports 50% relief with their current regimen and denies any side effects. Botox administered on 09/24/2020 provided significant relief of her ongoing headaches. Notes that for approximately 1 month now she has been seeing a chiropractor for her neck, low back and TMJ which has been helpful. Continues to use her Haworth sparingly to maintain her lowest effective dose.Patient is not accompanied today and has no other questions or concerns. Leg Pain Duration: chroni c. Severity level is 6. It occurs constantly and is worsening. Location: headache. The pain is aggravated by climbing (and descending) stairs, lifting, twisting and walking. The pain is relieved by pain/RX meds and chiropractic. Leg Pain (comments) Yenni is her e for virtual follow-up and medication refills. She presents with low back pain and persistent migraines. Pain has been relatively stable besides her low back going out last night. She is planning on going to the chiropractor [facility]. She is looking forward to Botox injections on 09/24. She requests to continue with the current medication regimen as it allows her to complete her ADLs and work without limitations.Reports current medication regimen provides at least 50% pain relief. Denies side effects from current medication regimen. No other concerns today. Leg Pain (comments) Yenni is her e for follow-up and medication refills. She presents with low back and leg pain which has been relatively stable. She notes the changes in the barometric pressure offset her migraines. She continues to follow up with chiropractics which has been beneficial. She would like to continue with the same medication regimen as it allows her to work and complete her ADLS. She is looking forward to Botox injections next month. Reports current medication regimen provides at least 50% pain relief. Denies side effects from current medication regimen. No other concerns today. Leg Pain Duration: chroni c. Severity level is 6. It occurs constantly and is stable. Location: low back. The pain is aggravated by bending, climbing (and descending) stairs, lifting and movement. The pain is relieved by changing positions, chiropractic and medication. Leg Pain Duration: chroni c. Severity level is 3. It occurs constantly and is stable. Location: low back pain. The pain is aching. The pain is aggravated by bending and climbing stairs. The pain is relieved by changing positions and lying down. Leg Pain (comments) Yenni is her e today for follow up and medication management. Reports >50% relief with their current regimen and denies any side effects.Reports that her lumbar pain has been fluctuating this month. Notes that she recently started going to the chiropractor last Sunday and is looking forward to the potential results. Describes her back pain as a constant dull achy which is aggravated with work and housework.Headaches have improved s/p Botox injection on 06/18/2020. Patient is not accompanied today and has no other questions or concerns. Leg Pain It occurs consta ntly and is stable. Location: back, migraines and head. The pain is aching and sharp. The pain is aggravated by lifting, standing and housework. The pain is relieved by lying down and sitting. Leg Pain (comments) Patient is h ere for follow-up and medication refills. She presents with low back pain and consistent migraines. Overall her pain has been stable with occasional flares. Her back pain has returned back to baseline since April. The current medication regimen allows her to function and complete her ADLs. She is looking forward to Botox injections on 06/15.Reports current medication regimen provides at least 50% pain relief. Denies side effects from current medication regimen. No other concerns today. Leg Pain Duration: chroni c. It occurs constantly and is worsening. Location: low back. The pain is sharp. The pain is aggravated by bending, climbing (and descending) stairs, lifting, movement, pushing, sitting, walking and standing. The pain is relieved by pain/RX meds. Leg Pain (comments) Yenni is her e for follow-up and medication refills. She presents with low back pain which radiates to the R leg. Her pain has been worse these last couple days. She requests a Toradol injection as that has helped in the ED. Also requests TPIs as they have been beneficial in the past.Reports current medication regimen provides 50% pain relief. Denies side effects from current medication regimen. No other concerns today. Leg Pain (comments) Patient is h ere for follow-up and medication refills. Ongoing headaches remain stable with occasional flares. She had a severe migraine last Sunday and went to the ED. They would not offer her Toradol shot due to low kidney function. Notes that she believes bariatric pressure contributes to the onset of migraines. She is looking forward to Botox injections scheduled for the end of May. She has also returned to work.Reports current medication regimen provides at least 50% pain relief. Denies side effects from current medication regimen. No other concerns today. Leg Pain Duration: chroni c. Severity level is 4. It occurs constantly and is stable. Location: back and migraines. The pain is aching. The pain is aggravated by lifting, movement and housework. The pain is relieved by ice and pain/RX meds. Leg Pain (comments) Patient is h ere for follow-up and medication refills. She presents with back pain and migraines. Pain is tolerable with the current medication regimen. She reports 3-4 migraines a week and is planning to schedule Botox injections in May. Reports current medication regimen provides #% pain relief. She is interested in medication taper after Botox injection, Denies side effects from current medication regimen. No other concerns today. Leg Pain Duration: chroni c. Severity level is 6. It occurs constantly and is stable. Location: back and head. The pain is aggravated by climbing (and descending) stairs, lifting, movement and housework. The pain is relieved by pain/RX meds, rest and lying down. Leg Pain Duration: chroni c. Severity level is 7. It occurs constantly and is changing in character. The pain is aching, burning and sharp. The pain is aggravated by bending, climbing (and descending) stairs, lifting, housework and twisting. The pain is relieved by pain/RX meds, rest and TENS sitting. Leg Pain (comments) Yenni is her e today for follow up and medication management. Reports >50% relief with their current regimen and denies any side effects.Reports that the side of her hips and migraines have been the most bothersome to her. She is looking forward to repeating Botox on 03/10/2020. 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 Continues to utilize Haworth 5mg tablets sparingly which has been very beneficial and helps her complete her ADLs and extra housework.Patient is not accompanied today and has no other questions or concerns. Leg Pain Duration: chroni c. Severity level is 7. Location: right low back. The pain is aching, burning and sharp. The pain is aggravated by bending, climbing (and descending) stairs, lifting, walking and standing. The pain is relieved by pain/RX meds, rest and sitting. Leg Pain (comments) Yenni presen ts for a followup and medication refill for persistent LE pain. Prescribed medications offer 80% pain relief. Denies SE.C/o worsening persistent migraine attributed to not being able to pursue repeat Botox injections and rainy weather. Lumbar pain has also been worsening and requests to trial TPIs at her next appointment. Describes her back pain has burning and sharp. Her last Botox was completed during August,. Ongoing benefit with medical cannabis at night. Patient is not accompanied today. No further questions or concerns. headache Duration: chroni c. The problem is worse. Pertinent negatives include fever, nausea and vomiting. Leg Pain Duration: chroni c. Severity level is 6. It occurs constantly and is worsening. The pain is aching. The pain is aggravated by bending, climbing (and descending) stairs, lifting, movement, sitting, standing, lying down and housework. The pain is relieved by pain/RX meds. Leg Pain (comments) Yenni presen ts for a followup and medication refill for persistent LE pain. Prescribed medications offer 60% pain relief. Denies SE.C/o worsening persistent migraine attributed to not being able to pursue repeat Botox injections and rainy weather. Also expresses interest in repeat R hip injection when able to schedule. Ongoing benefit with medical cannabis at night. No further questions or concerns. Leg Pain Duration: chroni c. Severity level is 5. It occurs intermittently and is stable. The pain is aching, sharp and numbness. The pain is aggravated by climbing (and descending) stairs, standing and housework. The pain is relieved by pain/RX meds, stretching and sitting. Leg Pain (comments) Yenni is her e today for a followup and medication refill for persistent LE pain. Prescribed medications offer 60% pain relief. Denies SE.LE pain is currently stable. Left GT bursa on 10/27 initially offered significant pain relief however her pain is starting to return. Would be willing to trial repeat when able. With regards to UDT being positive for Tramadol, she states that it was from an old prescription and that she did not realize what the medication was initially when taking it. She is aware that she is to no longer take this. No further questions or concerns. Leg Pain Duration: chroni c. Severity level is 2. It occurs constantly and is worsening. Location: low back. The pain is aching and burning. The pain is aggravated by bending, climbing (and descending) stairs, sitting, walking, standing and housework. Leg Pain (comments) Yenni is her e today for a followup and medication refill for persistent LE pain. She reports her pain today is worse, primarily in low back. Her headaches have been fluctuating, triggered by weather changes. States Botox remains helpful for relieving some of her pain. Also notes increased right hip pain today and requests to repeat right GT Bursa injection.Current medication regimen provides 50% relief and improves daily function. Denies side effects from current medication regimen. Patient is not accompanied today and has no further questions or other concerns. Leg Pain Duration: ongoin g. Severity level is moderate. It occurs constantly and is fluctuating. Location: right. The pain is aching. The pain is aggravated by daily activities. The pain is relieved by pain/RX meds and rest. Leg Pain (comments) Yenni is her e today for a followup and medication refill for ongoing RLE pain. Pain today is fluctuating, tolerable with medications. Migraines have increased in frequency and is looking forward to repeat Botox injections. Inquires today whether she may benefit from medical cannabis.Current medication regimen provides 50% relief and improves daily function. Denies side effects from current medication regimen. Patient is not accompanied today and has no further questions or other concerns. Leg Pain (comments) Yenni is her e today for a followup and medication refill for ongoing LE pain. Current medication regimen provides 60% relief. Denies side effects from current medication regimen. Rib fxs healing and symptoms are improving. Low back and LE pain is fluctuating. States she is receiving ongoing benefit from Botox injections with significant reduction in migraine frequency. Patient is not accompanied today and has no further questions or other concerns. Leg Pain Duration: chroni c. Severity level is 2. It occurs intermittently and is fluctuating. Location: low back. The pain is aggravated by bending, climbing (and descending) stairs, movement, walking, standing and prolonged positioning. The pain is relieved by changing positions, rest, stretching and walking. Leg Pain (comments) Yenni is her e today for a followup and medication refill. She presents with #1 Haworth- surplus. Current medication regimen provides 70% relief. Denies side effects from current medication regimen. Pain today is improving s/p Botox injections 06/09/19. States she has only had three migraines since her injections, and was previously having up to 6 migraines per week. Does report recent R rib fx and inquires about a temporary increase in her Haworth dose as she recovers.Patient is not accompanied today and has no further questions or other concerns. Leg Pain Duration: chroni c. Severity level is 2. It occurs intermittently and is improving. Location: left right rib. The pain is aggravated by climbing (and descending) stairs and standing. The pain is relieved by changing positions, medications and stretching. Leg Pain (comments) Yenni is her e today for a f/u after initial consult regarding RLE pain and chronic migraines. Continues to c/o pain in RLE into R hip. Inquires about PA status of R GT Bursa injection ordered last OV, as she is eager to proceed. States she would like to trial Botox injections for migraines as discussed last visit, noting she continues to have headaches >15 days per month without relief. Would also like to transfer regular SI joint injections, previously completed at [facility], to [facility] in the future. Patient is not accompanied today and has no further questions or other concerns. Leg Pain Duration: chroni c. Severity level is moderate. It occurs intermittently and is changing in character. Location: right head. The pain radiates to the right buttock. The pain is burning. The pain is aggravated by bending, climbing (and descending) stairs, lifting, movement, walking, standing and prolonged positioning. The pain is relieved by massage, pain/RX meds, rest, changing positions and sitting. Leg Pain Onset: gradual. Duration: chronic. Severity level is 5. It occurs intermittently. Location: right head. The pain is stabbing, numbness and stabbing. The pain is aggravated by climbing (and descending) stairs, standing, twisting and housework. The pain is relieved by pain/RX meds and stretching. Leg Pain (comments) Yenni is her e for an initial consult for RLE pain, referred by [facility]. Her pain began gradually 3 years ago without inciting event or injury. Worst of her pain is located in her RLE with radiating pain to R hip. S/p lumbar decompression in 1999, L4-5 fusion in 2015 and revision in 2017. Secondarily complains of chronic migraines and L ankle pain. S/p L ankle fusion which causes frequent swelling and pain at the end of the day.Underwent PT at [facility] in 2016 and [facility] in 2019-- helpful. Completed LESI with [facility]--helpful for 5 months. Reports previous imaging at [facility] imaging and [facility]. Currently managed on Lyrica 150mg 3 tabs nightly. Has also trialed and failed Gabapentin, Cymbalta, codeine, and oxycodone for additional pain relief. Previously following with PCP regarding hydrocodone 5/325mg for PRN use which effectively controls her RLE pain and chronic migraines.Yenni is interested in medication management and would like [facility] to assume management of pain care. Functional Status Date Functional Assessmen t No Information Instructions Date Instruction Additional Infor mation No Information Assessments Type Assessment Date No Information Patient Care Teams Name Effective Dates (start - stop) Status Members No Information
[2023-09-13 17:36] LABS: Bacteria Urine Few; RBC Urine 0-2 (0-2); Squamous Epithelial Cell Urine Few (None-Few)
--- NOTE | 2023-09-13 18:34 | CRLHL7_ITS ---
For Patients: As a result of the Century Cures Act, medical imaging exams and procedure reports are released immediately into your electronic medical record. You may view this report before your referring provider. If you have questions, please contact your health care provider. INDICATIONS: Chest pain. Cough. COVID positive. TECHNIQUE: Chest 1 AP view. COMPARISON: None FINDINGS: No pneumothorax or pleural effusion. Lungs are clear. Cardiac and mediastinal contours are within normal limits. Upper abdomen and osseous structures as imaged show no acute abnormality. IMPRESSION: No evidence of acute cardiopulmonary disease. Dictated by Justin Schwartz MD @ 09/13/2023 8:10:11 PM (Electronically Signed)
[2023-09-13] MEDS: cephALEXin 500 MG CAPSULE PO (20:00)
== END 2023-09-13 20:15 | disposition home or self-care (01) ==
PROVIDERS: Emergency Provider Emergency Medicine; PCP Family Medicine
DX: U07.1 COVID-19 (principal); N39.0 Urinary tract infection, site not specified; R07.9 Chest pain, unspecified
CPT/HCPCS: 36415; 71045; 80053; 81001; 84484; 85025; 85379; 87086; 96374; 96375; 99284; A9270; J1200; J1885; J2765; J7030

== ENCOUNTER 2023-10-02 15:44 | Outpatient (CLI) | payer BC, SELFPAY | END 2023-10-02 15:45 | disposition home or self-care (01) | LOC: NFLDREF 10-03 07:35 | PROVIDERS: PCP Family Medicine; Referring Provider Family Medicine; Visit Provider Internal Medicine | DX: N39.0 Urinary tract infection, site not specified (principal); B96.4 Proteus (mirabilis) (morganii) as the cause of diseases classified elsewhere | CPT/HCPCS: 87086; 87186 ==

== ENCOUNTER 2023-11-15 07:30 | Outpatient (CLI) | payer BC, SELFPAY | END 2023-11-15 07:31 | disposition home or self-care (01) | LOC: NFLDREF 11-30 11:52 | PROVIDERS: PCP Family Medicine; Referring Provider Family Medicine; Visit Provider Family Medicine | DX: E53.8 Deficiency of other specified B group vitamins (principal); E55.9 Vitamin D deficiency, unspecified; E78.5 Hyperlipidemia, unspecified; G89.4 Chronic pain syndrome | CPT/HCPCS: 80053; 80061; 82306; 82607 ==

== ENCOUNTER 2024-01-21 17:31 | Outpatient (CLI) | payer BC, SELFPAY ==
--- OUTSIDE RECORDS SUMMARY | 2024-01-23 09:24 | XMS_ITS ---
Author Name Unknown Organization [facility] Address [address] [place] [address] Care Team Providers Care Rental Representative Name Role Phone Unavailable Unavailable Unavailable Surgery Details Not on file Complications Check Surgery Details section. Procedure Estimated Blood Loss Check Surgery Details section. Procedure Findings Check Surgery Details section. Procedure Specimens Taken Check Surgery Details section.
--- OUTSIDE RECORDS SUMMARY | 2024-01-23 09:24 | XMS_ITS | Clinical Summary ---
Author Name Unknown Organization [facility] Address [address] [place] [phone] Phone Care Team Providers Care Employee Training Specialist Name Role Phone Kathy Glover MD Primary Care Provider Medications Medication Sig Dispensed Refills Start Date End Date Status HYDROcodone-acetamino phen (LORCET PLUS) 10-325 MG per tablet Take 3-4 tabs as needed 0 06/05/2017 Active DULoxetine (CYMBALTA) [address] capsule Take 1 capsule 2 times daily 0 06/05/2017 Active zolpidem (AMBIEN) 5 MG tablet Take 1 tablet by mouth at bedtime as needed for sleep 0 02/22/2017 Active Multiple Vitamins tablet Take 1 tab daily 0 11/23/2017 Active topiramate (TOPAMAX) 100 MG tablet Take 1 tab 2 times daily 0 11/23/2017 Active traZODone (DESYREL) 100 MG tablet Take 2 tablets by mouth at bedtime 0 02/22/2017 Active baclofen (LIORESAL) 10 MG tablet 1 po qhs 0 11/23/2017 Active cetirizine (ZyrTEC ALLERGY) 10 MG tablet 1 po qday 0 11/23/2017 Act danie doxepin (SINEquan) 10 MG capsule Take 1 capsule at bedtime 0 11/23/2017 Active calcium citrate-vitamin D (CALCIUM CITRATE + D) 315-200 MG-UNIT per tablet Take 2 tablets by mouth 2 times daily 0 02/22/2017 Active pravastatin (PRAVACHOL) 20 MG tablet Take 1 tab at bedtime 0 11/23/2017 Active ergocalciferol (VITAMIN D2) 1.25 MG (33489 UT) capsule Take 1 tab weekly 0 11/23/2017 Active omega-3 (FISH OIL) 1000 MG capsule Take 1 tab daily 0 11/23/2017 Act danie buPROPion XL (WELLBUTRIN XL) 150 MG 24 hr tablet Take 1 tab every morning 0 11/23/2017 Active levETIRAcetam (KEPPRA) 500 MG tablet Take 1 tab 2 times daily for migraines as needed 0 11/23/2017 Active raNITIdine (ZANTAC) 150 MG tablet Take 1 tab 2 times daily 0 11/23/2017 Active Active Problems Problem Noted Date Diagnosed Date Chronic kidney disease, stage 3 (moderate) 11/23 Essential (primary) hypertension 02/22/2017 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 Social History Tobacco Use Types Packs/Day Years Used Date Smoking Tobacco: Former Sex and Gender Information Value Date Recorded Sex Assigned at Not on file Gender Identity Not on file Sexual Orientation Not on file Last Filed Vital Signs Vital Sign Reading Time Taken Comments Blood Pressure 114/84 11/23/2017 12:01 AM [employer] Si tting, Left Pulse 80 11/23/2017 12:01 AM [employer] Brac hial Temperature 37 ??C (98.6 ??F) 11/23/2017 12:01 AM [employer] Respiratory Rate - - Oxygen Saturation - - Inhaled Oxygen Concentration - - Weight 79.4 kg (175 lb) 11/23/2017 12:01 AM [employer] Height 167.6 cm (5' 6) 11/23/2017 12:01 AM [employer] Body Mass Index 28.25 11/23/2017 12:01 AM [employer] Plan of Treatment Not on file Care Teams Employee Training Specialist Relationship Specialty Start Date End Date Kathy Glover MD [address] [place] [address] PCP - General 05/11/21
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
--- OUTSIDE RECORDS SUMMARY | 2024-01-23 09:24 | XMS_ITS | Clinical Summary ---
Author Name Unknown Organization [employer] [facility] Address [place], [place] [address] Care Team Providers Care Combustion Engineer Name Role Phone Kathy Glover MD Primary Care Provider [phone] Allergies Active Allergy Reactions Criticality Noted Date Comments Ciprofloxacin Itching 07/23/2017 Cipro and flagyl together Metronidazole In Nacl (Iso-Os) Itching 07/23/2017 Cipro and Flagyl together. Medications Medication Sig Dispensed Refills Start Date End Date Status MULTIVIT,THX,CALCI UM,IRON,MINS (THERA PAUL M ORAL) Take 1 tablet by mouth once daily. Active omega-3 fatty acids (FISH OIL) cap Take 1,000 mg by mouth once daily. Active DULoxetine (CYMBALTA) 60 mg Delayed-release capsule Take 60 mg by mouth 2 times daily. Active traZODone (DESYREL) 100 mg tablet Take 100 mg by mouth at bedtime if needed for Sleep. Active HYDROcodone-acetam inophen, 10-325 mg, (NORCO) 10-325 mg per tablet Take 1 tablet by mouth every 4 hours if needed for Pain Dose is based on hydroxycodone amount, 1 tablet = 10mg. Max acetaminophen 4000mg in 24 hours.( For moderate to severe pain, Max of 4 tablets daily ) Active ranitidine (ZANTAC) 150 mg tablet Take 150 mg by mouth 2 times daily. Active Cetirizine (ZYRTEC) 10 mg cap Take 1 capsule by mouth once daily. Active CALCIUM CITRATE/VITAMIN D3 (CALCIUM CITRATE + D ORAL) Take 2 tablets by mouth 2 times daily. Active ergocalciferol (VITAMIN D2) 50,000 unit capsule Take 50,000 Units by mouth once weekly. Active pravastatin (PRAVACHOL) 20 mg tablet Take 20 mg by mouth once daily with evening meal. Active levETIRAcetam (KEPPRA) 500 mg tablet Take 500 mg by mouth 2 times daily if needed (migraines). Active loperamide (IMODIUM A-D) 2 mg capsule Take 4mg by mouth with 1st loose stool, then 2mg with each subsequent loose stool. Max 16 mg in 24 hrs Active topiramate (TOPAMAX) 50 mg tablet Take 50 mg by mouth 2 times daily. Active doxepin 25 mg capsule TK 1 C PO 1 TIME PER DAY AT BEDTIME 0 08/23/2018 Active HYDROcodone-acetam inophen, 5-325 mg, (NORCO) per tablet TK 1 T PO Q 8 H PRF PAIN. MAX 3 PER DAY 0 08/15/2018 Active Multivits,Ca,[place] als-Iron-FA (THERA M PLUS, FERROUS FUMARAT,) 9 mg iron-400 mcg tablet Take 1 tablet by mouth. Active omega 9-feo-xye-fish oil (FISH OIL) 300-1,000 mg cpDR Take 1,000 mg by mouth. Active AFLURIA QUAD 9845-1249, PF, 60 mcg/0.5 mL IM syringe ADM 0.5ML IM UTD 0 06/20/2018 Active buPROPion (WELLBUTRIN XL) 300 mg Extended-Release tablet TK 1 T PO 1 TIME PER DAY IN THE MORNING 0 08/23/2018 Active amitriptyline (ELAVIL) 25 mg tablet TK 1 - 2 TS PO HS. 0 08/01/2018 Active lisinopril-hydroch lorothiazide (10-12.5 mg) tablet (PRINZIDE; ZESTORETIC)Indicat ions:Acute chest pain,Hypertension Take 1 Tablet by mouth once daily. 30 Tablet 05/27/2021 Active Active Problems Problem Noted Date Diagnosed Date Lumbar pseudoarthrosis Encounters Date Type Department Care Team Description 11/22/2023 Lab Requisition [facility] [phone] Lela Giraldo MD from Last 3 Months Immunizations Name Administration Dates Next Due Influenza Virus, Unspecified 07/03/2014,08/15/20 11 Influenza, IIV3 (Age >=3 years) 07/12/2013,09/30 Influenza, IIV4 07/25/2017,07/14/2016,07/02/2015 Tdap 08/15/2011 Social History Tobacco Use Types Packs/Day Years Used Date Smoking Tobacco: Former Cigarettes 1 20 Smokeless Tobacco: Never Alcohol Use Standard Drinks/Week Comments Yes 0 (1 standard drink = 0.6 oz pur e alcohol) glass wine daily Sex and Gender Information Value Date Recorded Sex Assigned at Not on file Gender Identity Not on file Sexual Orientation Not on file Obstetrics History Last Filed Vital Signs Vital Sign Reading Time Taken Comments Blood Pressure 132/81 05/27/2021 1:36 PM CDT Pulse 68 05/27/2021 11:52 AM CDT Temperature 36.6 ??C (97.8 ??F) 05/27/2021 9:38 AM CD T Respiratory Rate 18 05/27/2021 9:38 AM CDT Oxygen Saturation 96% 05/27/2021 11:45 AM CDT Inhaled Oxygen Concentration - - Weight 90.3 kg (199 lb) 05/27/2021 9:40 AM CDT Height 167.6 cm (5' 6) 05/27/2021 9:40 AM CDT Body Mass Index 32.12 05/27/2021 9:40 AM CDT Plan of Treatment Health Maintenance Due Date Last Done Comments Depression screening for age 12+ 1981 HIV for age 15-65 1984 BMI (ht and wt on same day) for age 18+ 1987 Hepatitis C screening for age 18-79 1987 Colonoscopy through age 75 2014 Lipids for age 45-75 2014 Mammogram for age 45-75 2014 Zoster (shingles) series for age 50+ (1 of 2) 2019 Tetanus booster 08/15/2021 08/15/2011 COVID-19 vaccine series (2022- season) 2023 11/15/2021, 01/30/2021, 01/09/2021 Influenza for age 50-64 05/18/2024 07/25/20 17, 07/14/2016, 07/02/2015, Additional history exists Pap test for age 21-65 11/21/2026 11/22/2023, 2023 Tdap Completed 08/15/2011 Pneumococcal series for age 6-64 Aged Out No longer eligible based on patient's age to complete this topic Medical Devices Implanted Type Area Paperhanger Contractor Device Identifier Shelf Expiration Date Model / Serial / Lot Bone Matrix Md Infuse Bmp - [id number] Implanted:Qty: 1 on 07/24/2017 by Danish Sosa MD at [facility] N/A: Spine Medtronic Spine/Ortho 11/14/2018 [id number]# / / [id number] Bone 15cc Allosource Crushed Canclls - [id number] Implanted:Qty: 1 on 07/24/2017 by Danish Sosa MD at [facility] N/A: Spine Allosource 11/21/2020 [id number]# / / [id number] Bone Matrix 5cc Progenix Plus Putty Dbm - [id number] Implanted:Qty: 1 on 07/24/2017 by Danish Sosa MD at [facility] N/A: Spine Medtronic Spine/Ortho 12/27/2018 [id number]# / / [id number] Plate Lmbr [place]-L Stand Alone Lock - [id number] Implanted:Qty: 1 on 07/24/2017 by Danish Sosa MD at [facility] N/A: Spine Jeromy Spine [id number] 00# / / Screw Lmbr 6x25mm Ancr-L Standalone - [id number] Implanted:Qty: 3 on 07/24/2017 by Danish Sosa MD at [facility] N/A: Spine [place] Spine [id number] 25# / / Spacer Lmbr [id number] 12deg Avs-L Stand Alone - [id number] Implanted:Qty: 1 on 07/24/2017 by Danish Sosa MD at [facility] N/A: Spine [place] Spine [id number] 62# / / Explanted Type Area Paperhanger Contractor Device Identifier Shelf Expiration Date Model / Serial / Lot Hardware Removal Explanted:Qty: 1 on 07/24/2017 by Danish Sosa MD at [facility] N/A: Spine Description:One Piece Spinal Hardware Removed Procedures Procedure Name Priority Date/Time Associated Diagnosis Comments LAB TRACKING EVENT Routine 11/22/2023 8: 06 AM RN GASTROENTEROLOGY LOG RAFT WORKER THIN PREP PAP SCREEN IMAGED Routine 11/22/2023 8:06 AM RN GASTROENTEROLOGY HPV THIN PREP Routine 11/22/2023 8:06 AM RN GASTROENTEROLOGY from Last 3 Months Results * LAB TRACKING EVENT (11/22/2023 8:06 AM RN GASTROENTEROLOGY) Other (Other) Client Collect / Unknown 11/22/2023 8:06 AM RN GASTROENTEROLOGY 11/22/2023 3:32 PM RN GASTROENTEROLOGY Lela Giraldo MD LAB BILL ONLY [facility] [address] [place] [address], * LOG RAFT WORKER THIN PREP PAP SCREEN IMAGED (11/22/2023 8:06 AM RN GASTROENTEROLOGY) Case Report Gynecologic Cytology Report ? Case: [id number] ? Authorizing Provider: ??Lela Giraldo MD ??Collected: ? 11/22/2023 0806 ? Ordering Location: ? [facility] ?Received: ?11/23/2023 0822 ? First Screen: ?Ella Pisano ? Specimen: ?LOG RAFT WORKER ThinPrep Vial Screening, Cervical/Vaginal ? 11/28/2023 5:36 PM CDT [facility] INTERPRETATION /RESULT NEGATIVE FOR INTRAEPITHELIAL LESION OR MALIGNANCY (NIL) (none) 11/28/2023 5:36 PM CDT [facility] IMEN ADEQUACY Satisfactory for evaluation Endocervical component present 11/28/2023 5:36 PM CDT [facility] HPV REQUEST HPV and PAP 11/28/2023 5:36 PM CDT [facility] Date of LMP 11/28/2023 5:36 PM CDT [facility] Comment:unk Last Pap Date 09/23/2020 11/28/2023 5:36 PM CDT [facility] Last Pap Result NIL 11/28/2023 5:36 PM CDT [facility] Abnormal Pap or [place] Bx in last 5 years No 11/28/2023 5:36 PM CDT [facility] Menstrual Status Postmenopausal 11/28/2023 5:36 PM CDT [facility] [place] Bx Done Today No 11/28/2023 5:36 PM CDT [facility] Additional Information 11/28/2023 5:36 PM CDT [facility] Comment: Interpreted at [facility], Central Laboratory - [address], [place] [address] Automated Review Failed 11/28/2023 5:36 PM CDT [facility] Comment:Processing failed, m anual screening required. ThinPrep Imaging System, [employer] ANCILLARY TESTING LOG RAFT WORKER HPV Ordered, Please see separate report 11/28/2023 5:[address] [facility] Note The pap test is a screening technique, not a diagnostic procedure. It is used primarily to screen for squamous cancers and precursor lesions. Published studies have shown that it is subject to both false negative and false positive results. The pap test should not be used as the sole means to diagnose or exclude pre-malignant and malignant lesions. 11/28/2023 5:36 PM CDT [facility] Other (Cervical/Vagina l) 11/22/2023 8:06 AM RN GASTROENTEROLOGY 11/23/2023 8:22 AM RN GASTROENTEROLOGY Lela Giraldo MD PATHOLOGY/CYTOLO GY Performing Organization Address [facility] Co de Phone Number [facility] [address] * HPV HIGH RISK (11/22/2023 8:06 AM RN GASTROENTEROLOGY) TYPE 16 Negative Negative 11/26/2023 5:04 PM CDT [facility] TYPE 18 Negative Negative 11/26/2023 5:04 PM CDT [facility] OTHER HIGH RISK TYPES Negative Negative 11/26/2023 5:04 PM CDT [facility] Other (Cervical/Vagina l) 11/22/2023 8:06 AM RN GASTROENTEROLOGY 11/23/2023 8:22 AM RN GASTROENTEROLOGY Narrative [facility] - 11/26/2023 5:04 PM CDT HPV types 16, 18, 31, 33, 35, 39, 45, 51, 52, 56, 58, 59, 66 and 68 DNA were undetectable or below the pre-set threshold. Methodology: Duane Fatoumata 4800 HPV Test Lela Giraldo MD MICROBIOLOGY Performing Organization Address [facility] Co de Phone Number [facility] [address] [place] [address], from Last 3 Months Advance Directives * Full Code (Latest Code Status on File) Date Activated Date Inactivated Comments 09/27/2018 3:08 PM 09/27/2018 5:47 PM Care Teams Combustion Engineer Relationship Specialty Start Date End Date Kathy Glover MD [address] [place] [id number] PCP - General Family Practice 09/25/18
--- OUTSIDE RECORDS SUMMARY | 2024-01-23 09:24 | XMS_ITS | Referral Summary ---
Author Name Unknown Organization [facility] Address [address] [place] [address] Care Team Providers Care Community Mental Health Worker Name Role Phone Elsewhere, Pcp Primary Care Provider Unavailabl e Source Comments Patient records contain information from all sites at [facility]. For routine questions regarding patient records, call [phone] during business hours, M-F 8:00 AM - 5:00 PM Central Time. Record requests for emergency care only can be directed to [phone] at any time.[facility] Allergies Active Allergy Reactions Criticality Noted Date Comments Cetirizine-Pseudoephedri ne Shortness of breath (Reselect Reaction) High 02/15/2019 Ciprofloxacin Itching,Rash 02/25/2014 Unsure if rash due to Cipro or Flagyl as patient started both at same time. Cipro and flagyl together cipro & flagyl together Metronidazole Itching,Rash 02/25/2014 Unsure if rash due to Cipro or Flagyl as patient started both at same time. cipro & flagyl together Sulfa (Sulfonamide Antibiotics) Itching 05/28/2015 Medications Medication Sig Dispensed Refills Start Date End Date Status UNABLE TO FIND See Admin Instructions (The purpose of this order is to document that the patient reports taking medical cannabis. This is not a prescription, and is not used to certify that the patient has a qualifying medical condition.) Active onabotulinumtoxinA (BOTOX) 200 unit injection Inject as directed every 3 months Active buPROPion XL (WELLBUTRIN XL) 150 mg 24 hr tablet Take 450 mg by mouth. 09/23/2020 Active rosuvastatin (CRESTOR) 20 mg tablet Take 20 mg by mouth. 09/23/2020 Active DULoxetine (CYMBALTA) [address] capsule Take 60 mg by mouth. 09/23/2020 Active omeprazole (PriLOSEC) [address] capsule Take 20 mg by mouth. 09/23/2020 Active HYDROcodone-acetamin ophen (NORCO) 5-325 mg per tablet take 1 tablet by oral route every 6 hours as needed for chronic pain 04/15/2015 Active divalproex (DEPAKOTE ER) 250 mg 24 hr tablet TAKE 1 TABLET BY MOUTH AT NIGHT FOR 7 DAYS THEN TAKE 2 TABLETS BY MOUTH AT NIGHT 12/14/2021 Active EPINEPHrine 0.3 mg/0.3 mL injection syringe Inject 0.3 mg intramuscularly. 02/24/2021 Active estradioL (ESTRACE) 0.1 mg/g (0.01%) vaginal cream Apply small amount to the vaginal opening and urethra M, W, F @ bedtime 12/02/2021 Active lisinopril-hydroCHLO ROthiazide (PRINZIDE,ZESTORETIC ) 20-25 mg per tablet Take 1 tablet by mouth daily. 12/13/2021 Active metoprolol succinate (TOPROL-XL) 25 mg 24 hr tablet Take 1 tablet by mouth 2 (two) times a day. 11/15/2021 Active nystatin (MYCOSTATIN) 100,000 unit/gram cream Apply topically as needed. 11/15/2021 Active omega-3 acid ethyl esters (LOVAZA) 1 gram capsule Take 2 g by mouth. 11/29/2021 Acti ve rimegepant (NURTEC ODT) 75 mg disintegrating tablet Dissolve 1 tablet in the mouth. 12/06/2021 Active traZODone (DESYREL) 50 mg tablet Take 1 tablet by mouth at bedtime. 11/15/2021 Active desvenlafaxine (PRISTIQ) 100 mg 24 hr tablet Take 1 tablet by mouth daily. 06/11/2023 Active tiZANidine (ZANAFLEX) 4 mg tablet Take 4 mg by mouth as needed. 03/30/2023 Active pregabalin (LYRICA) 150 mg capsule Take 1 capsule (150 mg total) by mouth daily. 90 capsule 1 10/18/2023 Active Active Problems Problem Noted Date Diagnosed Date Migraine Headache 08/01/2022 Immunizations Name Administration Dates Next Due Influenza, Unspecified 07/03/2014,07/13/2013, Tdap 08/15/2011 Social History Tobacco Use Types Packs/Day Years Used Date Smoking Tobacco: Every Day Cigarettes Smokeless Tobacco: Never Tobacco Cessation:Ready to Q uit: Not Asked; Counseling Given: Not Answered Alcohol Use Standard Drinks/Week Comments Yes 0 (1 standard drink = 0.6 oz pur e alcohol) 2 wine coolers daily Nutrition Answer Date Recorded Nutrition: EVOO Fat Source Unknown 02/05 Nutrition: Servings of Fruits/Vegetables per Day Not on file 02/05/2021 Dental Answer Date Recorded Dental: Regular Dentist Unknown 02/06/20 Sex and Gender Information Value Date Recorded Sex Assigned at Not on file Gender Identity Not on file Sexual Orientation Not on file Last Filed Vital Signs Vital Sign Reading Time Taken Comments Blood Pressure 117/79 08/01/2022 2:07 PM AUTOMOBILE RENTAL CLERK Pulse 101 08/01/2022 2:07 PM AUTOMOBILE RENTAL CLERK Temperature 36.8 ??C (98.2 ??F) 07/10/2022 4:00 AM CD T Respiratory Rate 18 07/10/2022 4:00 AM CDT Oxygen Saturation 90% 07/10/2022 7:00 AM CDT Inhaled Oxygen Concentration - - Weight 96.1 kg (211 lb 13.8 oz) 08/01/2022 2:07 PM AUTOMOBILE RENTAL CLERK Height 166.5 cm (5' 5.55) 08/01/2022 2:07 PM CS T Body Mass Index 34.67 08/01/2022 2:07 PM AUTOMOBILE RENTAL CLERK Plan of Treatment Not on file Procedures Procedure Name Priority Date/Time Associated Diagnosis Comments BASIC METABOLIC PANEL, S/P STAT 07/10/2022 4:20 AM CDT EXTI LIPID PANEL REFLEX TO DIRECT LDL Routine 11/17/2021 7:16 AM AUTOMOBILE RENTAL CLERK BI BREAST SCREENING BILATERAL WITH TOMOSYNTHESIS Routine 10/13/2021 3:39 PM AUTOMOBILE RENTAL CLERK from Last 3 Months or Most Recently Relevant to Health Maintenance Results * (ABNORMAL) Basic Metabolic Panel (07/10/2022 4:20 AM CDT) Potassium, P 3.6 3.6 - 5.2 mmol/L 07/10/2022 4:40 AM CDT [facility] Sodium, P 135 135 - 145 mmol/L 07/10/2022 4:40 AM CDT [facility] Chloride, P 95(L) 98 - 107 mmol/L 07/10/2022 4:40 AM CDT [facility] Bicarbonate, P 28 22 - 29 mmol/L 07/10/2022 4:40 AM CDT [facility] Anion Gap, P 12 7 - 15 07/10/2022 4:40 AM CDT [facility] BUN (Blood Urea Nitrogen), P 10 6 - 21 mg/dL 07/10/2022 4:40 AM CDT [facility] Creatinine 0.98 0.59 - 1.04 mg/dL 07/10/2022 4:40 AM CDT [facility] Estimated GFR (eGFR) 69 >=60 mL/min/BSA 07/10/2022 4:40 AM CDT [facility] Comment: Estimated GFR calculated using the 2020 CKD_EPI creatinine equation. Calcium, Total, P 8.9 8.6 - 10.0 mg/dL 07/10/2022 4:40 AM CDT [facility] Glucose, P 104 70 - 140 mg/dL 07/10/2022 4:40 AM CDT [facility] Blood (Blood, Venous) 07/10/2022 4:20 AM CDT 07/10/2022 4:23 AM CDT Jorge Browne D.O. LAB BLOOD ADD-ON [facility] [address] [place] [address], [place] NPRG [facility] [address] [place] [address] from Last 3 Months or Most Recently Relevant to Health Maintenance Care Teams Community Mental Health Worker Relationship Specialty Start Date End Date Elsewhere, Pcp PCP - General Internal Medicine 07/10/22
--- OUTSIDE RECORDS SUMMARY | 2024-01-23 09:24 | XMS_ITS | Clinical Summary ---
Author Name Unknown Organization [facility] Address [address] [place] [address] Care Team Providers Care Missing Persons Investigator Name Role Phone Elsewhere, Pcp Primary Care Provider Unavailabl e Source Comments Patient records contain information from all sites at [facility]. For routine questions regarding patient records, call [phone] during business hours, M-F 8:00 AM - 5:00 PM Central Time. Record requests for emergency care only can be directed to [phone] at any time.[facility] Allergies Active Allergy Reactions Criticality Noted Date [...] Next Due Influenza, Unspecified 07/03/2014,07/13/2013, Tdap 08/15/2011 Family History Medical History Relation Name Comments Ovarian cancer Aunt 1 Lucero Breast cancer Aunt 2 Mere Hypertension Brother Depression Father Diabetes Father Hypertension Father Lung cancer Father Cataracts Mother Relation Name Status Comments Aunt 1 Lucero Aunt 2 Mere Brother Father Mother Social History Tobacco Use Types Packs/Day Years [...] Date Recorded Dental: Regular Dentist Unknown 02/06/20 21 Sex and Gender Information Value Date Recorded Sex Assigned at Not on file Gender Identity Not on file Sexual Orientation Not on file Last Filed Vital Signs Vital Sign Reading Time Taken Comments Blood Pressure 117/79 08/01/2022 2:07 PM MACHINE SNELLER Pulse 101 08/01/2022 2:07 PM MACHINE SNELLER Temperature 36.8 ??C (98.2 ??F) 07/10/2022 4:00 AM CD T Respiratory Rate 18 07/10/2022 4:00 AM CDT Oxygen Saturation 90% 07/10/2022 7:00 AM CDT Inhaled Oxygen Concentration - - Weight 96.1 kg (211 lb 13.8 oz) 08/01/2022 2:07 PM MACHINE SNELLER Height 166.5 cm (5' 5.55) 08/01/2022 2:07 PM CS T Body Mass Index 34.67 08/01/2022 2:07 PM MACHINE SNELLER Plan of Treatment Health Maintenance Due Date Last Done Comments CT Colonography 1969 Cologuard 1969 Colonoscopy 1969 Colorectal Cancer Screening 1969 FIT 1969 HIV Screening 1969 Hepatitis C Screening 1969 Tobacco Cessation counseling 1969 Pneumococcal vaccine (0-64 y ears) (1 of 2 - PCV) 1975 Hepatitis B Vaccines (1 of 3 - 19+ 3-dose series) 1988 Mammogram 10/13/2022 10/13/2021, 09/17, 07/21/2019, Additional history exists COVID-19 Vaccine (4 - 2022-2 4 season) 2023 11/15/2021, 01/30/2021, 01/09/2021 Creatinine Level (Kidney Fun ction Test) 07/10/2023 07/10/2022, 11/17/2021, 06/06/2021, Additional history exists Potassium Level 07/10/2023 07/10/2022, 03/0 11/2021, 06/06/2021, Additional history exists Sodium Level 07/10/2023 07/10/2022, 03/0 11/2021, 06/06/2021, Additional history exists Depression Screening (Annual PHQ-2) 09/17/2023 Fasting Glucose for Diabetes Screening 07/10/2025 07/10/2022, 11/17/2021, 06/06/2021, Additional history exists Lipid (Cholesterol) Screening 11/17/2026, 09/23/2020, 01/20/2020, Additional history exists DTaP,Tdap,and Td Vaccines (3 - Td or Tdap) 11/16/2031 11/15/2021, 08/15/2011 Zoster Vaccines Completed 08/04/2020, 05/30/2020 Influenza Vaccine Completed 07/06/2023, , 07/07/2021, Additional history exists Procedures Procedure Name Priority Date/Time Associated Diagnosis Comments BASIC METABOLIC PANEL, S/P STAT 07/10/2022 4:20 AM CDT EXTI LIPID PANEL REFLEX TO DIRECT LDL Routine 11/17/2021 7:16 AM MACHINE SNELLER BI BREAST SCREENING BILATERAL WITH TOMOSYNTHESIS Routine 10/13/2021 3:39 PM MACHINE SNELLER from Last 3 Months or Most Recently [...] CDT Jorge Browne D.O. LAB BLOOD ADD-ON [facility] [address] [place] [address], [facility] [address] [place] [address] from Last 3 Months or Most Recently Relevant to Health Maintenance Care Teams Missing Persons Investigator Relationship Specialty Start Date End Date Elsewhere, Pcp PCP - General Internal Medicine 07/10/22
--- OUTSIDE RECORDS SUMMARY | 2024-01-23 09:24 | XMS_ITS | Encounter Summary ---
Author Name Unknown Organization [facility] Address [address] [place] [address] Care Team Providers Care Embedded Systems Developer Name Role Phone Elsewhere, Pcp Primary Care Provider Unavailabl e Reason for Visit * Reason Comments Med Refill Encounter Details Date Type Department Care Team (Late st Contact Info) Description 10/18/2023 Refill Department of Neurology in [place], [place] [address] [place] [address] Jas Schultz M.D. [address] [phone] Med Refill Social History Tobacco Use Types Packs/Day Years Used Date Smoking Tobacco: Every Day Cigarettes Smokeless Tobacco: Never Alcohol Use Standard Drinks/Week [...] on file Sexual Orientation Not on file documented as of this encounter Plan of Treatment Not on file documented as of this encounter Visit Diagnoses Not on filedocumented in this encounter Additional Health Concerns Assessment Noted Time PHQ-9 Depression Total Score: 8 01/14/20 14 9:14 AM CDT documented as of this encounter Care Teams Embedded Systems Developer Relationship Specialty Start Date End Date Elsewhere, Pcp PCP - General Internal Medicine 07/10/22 documented as of this encounter
--- OUTSIDE RECORDS SUMMARY | 2024-01-23 09:25 | XMS_ITS | Encounter Summary ---
Author Name Unknown [facility] Address [address] [facility] [place] [address] Care Team Providers Care Carpenter General Name Role Phone Toma Arguello YESICA Unavailable [phone] Laura Us MD Unavailable [facility] Primary Care Provider Haven Buckner CNP Unavailable [phone] Jenise España MD Unavailable Unavailable Tierra Cancino-C Unavailable [phone] Luh Acharya PA-C Primary Care Provider + Luh Acharya-C Unavailable [phone] Tierra Cancino-Melissa Unavailable [phone] Haven Buckner CNP Unavailable [phone] Luh Acharya PA-C Unavailable + [phone] Haven Buckner CNP Unavailable [phone] Reason for Visit * Reason Comments Medication Refill Encounter Details Date Type Department Care Team (Late st Contact Info) Description 10/20/[address] [phone] Luh Acharya PA-C [address] [place] [address] Medication Refill Social History Tobacco Use Types Packs/Day Years Used Date Smoking Tobacco: Former Cigarettes 1 20 0 03/17/1988 - 03/17/2008 Smokeless Tobacco: Never Alcohol Use Standard Drinks/Week Comments Yes 0 (1 standard drink = 0.6 oz pur e alcohol) 1-2 per week PHQ-2 Answer Date Recorded PHQ-2 Total Score (Adult) - Positive if 3 or more points; Administer PHQ-9 if positive 1 10/24/2021 Sex and Gender Information Value Date Recorded Sex Assigned at Female 01/18/2019 9:01 AM CDT Gender Identity Female 01/18/2019 9:01 AM CDT Sexual Orientation Straight 01/18/2019 9: 01 AM CDT COVID-19 Exposure Response Date Recorded In the last month, have you been in contact with someone who was confirmed or suspected to have Coronavirus / COVID-19? No / Unsure 10/13/2021 3:21 PM HAIR BOILER OPERATOR documented as of this encounter Miscellaneous Notes * Telephone Encounter - Ellen Retana RN - 10/21/2021 12:09 PM HAIR BOILER OPERATOR LDL Cholesterol Calculated Date Value Ref Range Status 09/23/2020 55 <100 mg/dL Final Comment: Desirable: <100 mg/dl Enedina refill of 30 days given Appointments in Next Year Nov 15, 2021 1:40 PM (Arrive by 1:20 PM) Adult Preventative Visit with Luh Acharya PA-C [facility] ([facility] ) [phone] Ellen Lemon RN [facility] Triage BOILER OPERATOR documented in this encounter Plan of Treatment Not on file documented as of this encounter Visit Diagnoses Diagnosis Hyperlipidemia LDL goal <130 Other and unspecified hyperlipidemia documented in this encounter Additional Health Concerns Infection Onset Date Last Indicated Resolved Time Rule Out COVID-19 12/19/2021 12/19/202112/2012/20/2021 1:02 PM CDT Assessment Noted Time PHQ-9 Depression Total Score: 2 02/23/20 21 8:02 AM CDT documented as of this encounter Care Teams Carpenter General Relationship Specialty Start Date End Date Clinic - [facility] [address] [place] [address] PCP - General 10/06/20 11/20/21 Luh Acharya PA-C [address] [place] [address] PCP - General Family Medicine 11/21/21 01/02/23 Toma Arguello NP [place] [address] [place], [place] [phone] Nurse Practitioner Nurse Practitioner Psych/Mental Health 04/11/17 Laura Us MD [place] [place], [place] [address] Gastroenterology 12/20/18 Haven Buckner, NICOLE [address] [place] [address] [phone] Assigned PCP 05/22/21 11/26/21 Jenise España MD Assigned Heart and Vascular Provider 07/24/21 11/17/22 Tierra Cancino PA-C [address] [place] [address] Physician Secretary Of State Urology 11/17/21 Luh Acharya PA-C [address] [place] [address] Assigned PCP 11/27/21 12/31/21 Tierra Cancino PA-C [address] [place] [address] Assigned Surgical Provider 12/11/21 06/08/23 Haven Buckner, SHELTERED WORKSHOP WORKER [address] [place] [address], [place] [address] Assigned PCP 01/01/22 12/22/22 Luh Acharya PA-C [address] [place] [address], [place] [address] Assigned PCP 12/23/22 05/18/23 Haven Buckner, SHELTERED WORKSHOP WORKER [address] [place] [address], [place] [address] Assigned PCP 05/19/23 documented as of this encounter
--- OUTSIDE RECORDS SUMMARY | 2024-01-23 09:25 | XMS_ITS | Encounter Summary ---
Author Name Unknown Organization [facility] Address [address] [facility] [place] [address] Care Team Providers Care Receiving Lead Name Role Phone Toma Arguello Arun ROBERT Unavailable [phone] Laura Us MD Unavailable Jenise España MD Unavailable Unavailable Tierra Cancino PA-C Unavailable Luh Acharya PA-C Primary Care Provider + Tierra Cancino PA-C Unavailable Haven Buckner CNP Unavailable Luh Acharya PA-C Unavailable Haven Buckner CHILDCARE TEACHER Unavailable Reason for Visit * Reason Comments Medication Refill Encounter Details Date Type Department Care Team (Late st Contact Info) Description 09/07/[address] [phone] Luh Acharya PA-C [address] [place] [address] [phone] Medication Refill Social History Tobacco Use Types Packs/Day Years Used Date Smoking Tobacco: Former Cigarettes 1 20 0 03/17/1988 - 03/17/2008 Smokeless Tobacco: Never Alcohol Use Standard Drinks/Week Comments Yes 0 (1 standard drink = 0.6 oz pur e alcohol) 1-2 per week PHQ-2 Answer Date Recorded PHQ-2 Score 2 12/29/2021 Sex and Gender Information Value Date Recorded Sex Assigned at Female 01/18/2019 9:01 AM CDT Gender Identity Female 01/18/2019 9:01 AM CDT Sexual Orientation Straight 01/18/2019 9: 01 AM CDT documented as of this encounter Miscellaneous Notes * Telephone Encounter - Ellen Retana RN - 09/08/2022 8:59 AM CST Refused-should have one refill on file Ellen Lemon RN [facility] Triage ER KIT ASSEMBLER documented in this encounter Plan of Treatment Not on file documented as of this encounter Visit Diagnoses Diagnosis Gastroesophageal reflux disease, unspecified whether esophagitis present documented in this encounter Additional Health Concerns Assessment Noted Time PHQ-9 Depression Total Score: 5 10/25/19 22 7:03 AM DEICER KIT ASSEMBLER documented as of this encounter Care Teams Receiving Lead Relationship Specialty Start Date End Date Luh Acharya PA-C [address] [place] [address] PCP - General Family Medicine 11/21/21 01/02/23 Toma Arguello NP [facility] [address] [place] [address] Nurse Practitioner Nurse Practitioner Psych/Mental Health 04/11/17 Laura Us MD [facility] [address] [place] [address] Gastroenterology 12/20/18 Jenise España MD Assigned Heart and Vascular Provider 07/24/21 11/17/22 Tierra Cancino PA-C [address] [place] [address] Physician Service Station Console Operator Urology 11/17/21 Tierra Cancino PA-C [address] [place] [address] Assigned Surgical Provider 12/11/21 06/08/23 Haven Buckner, NICOLE [address] [place] [address] Assigned PCP 01/01/22 12/22/22 Luh Acharya PA-C [address] [place] [address] Assigned PCP 12/23/22 05/18/23 Haven Buckner, NICOLE [address] [place] [address] Assigned PCP 05/19/23 documented as of this encounter
--- OUTSIDE RECORDS SUMMARY | 2024-01-23 09:25 | XMS_ITS | Encounter Summary ---
Author Name Unknown [facility] Address [address] [facility] [address] Care Team Providers Care Adjunct Physical Education Instructor Name Role Phone Toma Arguello YESICA Unavailable [phone] Laura Us MD Unavailable [facility] Primary Care Provider Haven Buckner CNP Unavailable [phone] Jenise España MD Unavailable Unavailable Tierra Cancino-C Unavailable [phone] Luh Acharya PA-C Primary Care Provider + Luh Acharya-C Unavailable [phone] Tierra Cancino-Melissa Unavailable [phone] Haven Buckner CNP Unavailable [phone] Luh Acharya PA-C Unavailable + [phone] Havne Buckner CNP Unavailable [phone] Reason for Visit * Reason Comments Medication Refill Encounter Details Date Type Department Care Team (Late st Contact Info) Description 10/14/[address] [phone] Luh Acharya PA-C [address] [place] [address] [place] [address] Medication Refill Social History Tobacco Use Types Packs/Day Years Used Date Smoking Tobacco: Former Cigarettes 1 20 0 03/17/1988 - 03/17/2008 Smokeless Tobacco: Never Alcohol Use Standard Drinks/Week Comments Yes 0 (1 standard drink = 0.6 oz pur e alcohol) 1-2 per week PHQ-2 Answer Date Recorded PHQ-2 Score 0 02/22/2021 Sex and Gender Information Value Date Recorded Sex Assigned at Female 01/18/2019 9:01 AM CDT Gender Identity Female 01/18/2019 9:01 AM CDT Sexual Orientation Straight 01/18/2019 9: 01 AM CDT COVID-19 Exposure Response Date Recorded In the last month, have you been in contact with someone who was confirmed or suspected to have Coronavirus / COVID-19? No / Unsure 10/13/2021 3:21 PM DEVELOPMENT EXPERT documented as of this encounter Miscellaneous Notes * Telephone Encounter - Nancy Monte RN - 10/17/2021 5:44 PM CST Prescription approved per [facility] Refill Protocol. Next 5 appointments (look out 90 days) Nov 15, 2021 1:40 PM (Arrive by 1:20 PM) Adult Preventative Visit with Luh Acharya PA-C [facility] ([facility] ) [address] [place] [address]. [place] [address] Nancy Monte RN [facility] LOPMENT EXPERT documented in this encounter Plan of Treatment Not on file documented as of this encounter Visit Diagnoses Diagnosis Gastroesophageal reflux disease, unspecified whether esophagitis present documented in this encounter Additional Health Concerns Infection Onset Date Last Indicated Resolved Time Rule Out COVID-19 12/19/2021 12/19/2021 12/20/2021 1:02 PM CDT Assessment Noted Time PHQ-9 Depression Total Score: 2 02/23/20 21 8:02 AM CDT documented as of this encounter Care Teams Adjunct Physical Education Instructor Relationship Specialty Start Date End Date Clinic - [facility] [address] [place] [address] [phone] PCP - General 10/06/20 11/20/21 Luh Acharya PA-C [address] [place] [address] [phone] PCP - General Family Medicine 11/21/21 01/02/23 Toma Arguello NP [address] [address] Nurse Practitioner Nurse Practitioner Psych/Mental Health 04/11/17 Laura Us MD [address] [address] Gastroenterology 12/20/18 Haven Buckner, BANDAGE MAKER [address] [place] [address] 886152 Assigned PCP 05/22/21 11/26/21 Jenise España MD Assigned Heart and Vascular Provider 07/24/21 11/17/22 Tierra Cancino PA-C [address] [place], [place] [address] Physician Home Based Assistant Urology 11/17/21 Luh Acharya PA-C [address] [place] [address] Assigned PCP 11/27/21 12/31/21 Tierra Cancino PA-C [address] [place] [address] Assigned Surgical Provider 12/11/21 06/08/23 Haven Buckner, BANDAGE MAKER [address] [place] [address] Assigned PCP 01/01/22 12/22/22 Luh Acharya PA-C [address] [place] [address] Assigned PCP 12/23/22 05/18/23 Haven Buckner, BANDAGE MAKER [address] [place] [address] Assigned PCP 05/19/23 documented as of this encounter
--- OUTSIDE RECORDS SUMMARY | 2024-01-23 09:25 | XMS_ITS | Encounter Summary ---
Author Name Unknown Organization [facility] Address [address] [facility] [place] [address] Care Team Providers Care Hand Stonecutter Name Role Phone Toma Arguello YESICA Unavailable [phone] Laura Us MD Unavailable Jenise España MD Unavailable Unavailable Tierra CancinoC Unavailable Luh Acharya PA-C Primary Care Provider + Luh Acharya PA-C Unavailable [phone] Tierra Cancino PA-C Unavailable Haven Buckner CNP Unavailable Luh Acharya PA-C Unavailable [phone] Haven Buckner CNP Unavailable Encounter Details Date Type Department Care Team (Late st Contact Info) Description 11/29/2021 [facility] [address] [phone] Luh Acharya PA-C [address] [place] [address] [phone] Social History Tobacco Use Types Packs/Day Years Used Date Smoking Tobacco: Former Cigarettes 1 20 0 03/17/1988 - 03/17/2008 Smokeless Tobacco: Never Alcohol Use Standard Drinks/Week Comments Yes 0 (1 standard drink = 0.6 oz pur e alcohol) 1-2 per week PHQ-2 Answer Date Recorded PHQ-2 Score 0 11/15/2021 Sex and Gender Information Value Date Recorded Sex Assigned at Female 01/18/2019 9:01 AM CDT Gender Identity Female 01/18/2019 9:01 AM CDT Sexual Orientation Straight 01/18/2019 9: 01 AM CDT COVID-19 Exposure Response Date Recorded In the last month, have you been in contact with someone who was confirmed or suspected to have Coronavirus / COVID-19? No / Unsure 12/02/2021 3:16 PM CDT documented as of this encounter Miscellaneous Notes * Telephone Encounter - Manisha Patel RN - 11/29/2021 1:04 PM CDT Please see my chart message below Please review and advise Thank you Manisha Patel RN, BSN [place] Triage documented in this encounter Plan of Treatment Not on file documented as of this encounter Visit Diagnoses Not on filedocumented in this encounter Additional Health Concerns Infection Onset Date Last Indicated Resolved Time Rule Out COVID-19 12/19/2021 12/19/2021 12/20/2021 1:02 PM CDT Assessment Noted Time PHQ-9 Depression Total Score: 5 10/25/19 22 7:03 AM DENTAL COORDINATOR documented as of this encounter Care Teams Hand Stonecutter Relationship Specialty Start Date End Date Luh Acharya PA-C [address] [place] [address] PCP - General Family Medicine 11/21/21 01/02/23 Toma Arguello NP [address] [phone] Nurse Practitioner Nurse Practitioner Psych/Mental Health 04/11/17 Laura Us MD [address] [address] Gastroenterology 12/20/18 Jenise España MD Assigned Heart and Vascular Provider 07/24/21 11/17/22 Tierra Cancino PA-C [address] [place] [address] Physician Account Solutions Analyst Urology 11/17/21 Luh Acharya PA-C [address] [place] [address] Assigned PCP 11/27/21 12/31/21 Tierra Cancino PA-C [address] [place] [address] Assigned Surgical Provider 12/11/21 06/08/23 Haven Buckner, NICOLE [address] [place] [address] Assigned PCP 01/01/22 12/22/22 Luh Acharya PA-C [address] [place] [address] Assigned PCP 12/23/22 05/18/23 Haven Buckner, NICOLE [address] [place] [address] Assigned PCP 05/19/23 documented as of this encounter
--- OUTSIDE RECORDS SUMMARY | 2024-01-23 09:25 | XMS_ITS | Encounter Summary ---
Author Name Unknown Organization [place] Address [address] [facility] [place] [place] [address] Care Team Providers Care Cash Management Specialist Name Role Phone Toma Arguello YESICA Unavailable [phone] Laura Us MD Unavailable Jenise España MD Unavailable Unavailable Tierra Cancino-C Unavailable Luh Acharya PA-C Primary Care Provider + Luh Acharya PA-C Unavailable Tierra Cancino-C Unavailable Haven Buckner CNP Unavailable Luh Acharya PA-C Unavailable [phone] Haven Buckner CNP Unavailable Reason for Visit * Reason Onset Date Comments MyChart Communication 12/06/2021 Encounter Details Date Type Department Care Team (Late st Contact Info) Description 12/06/2021 [facility] [address] [phone] Luh Acharya PA-C [address] [place] [address] [phone] MyChart Communication Social History Tobacco Use Types Packs/Day Years [...] PM CDT documented as of this encounter Plan of Treatment Not on file documented as of this encounter Visit Diagnoses Not on filedocumented in this encounter Additional Health Concerns Infection Onset Date Last Indicated Resolved Time Rule Out COVID-19 12/19/2021 12/19/2021 12/20/2021 1:02 PM CDT Assessment Noted Time PHQ-9 Depression Total Score: 5 10/25/19 22 7:03 AM COMBATANT DIVER QUALIFIED documented as of this encounter Care Teams Cash Management Specialist Relationship Specialty Start Date End Date Luh Acharya PA-C [address] [place], [place] [address] PCP - General Family Medicine 11/21/21 01/02/23 Toma Arguello NP [address] [address] Nurse Practitioner Nurse Practitioner Psych/Mental Health 04/11/17 Laura Us MD [address] [address] Gastroenterology 12/20/18 Jenise España MD Assigned Heart and Vascular Provider 07/24/21 11/17/22 Tierra Cancino PA-C [address] [place] [address] Physician Barrel Rifler Hook Urology 11/17/21 Luh Acharya PA-C [address] [place] [address], [place] [address] Assigned PCP 11/27/21 12/31/21 Tierra Cancino PA-C [address] [place] [address] Assigned Surgical Provider 12/11/21 06/08/23 Haven Buckner, MIXER OPERATOR VACUUM PAN SALT [address] [place] [address], [place] [address] Assigned PCP 01/01/22 12/22/22 Luh Acharya PA-C [address] [place] [address], [place] [address] Assigned PCP 12/23/22 05/18/23 Haven Bucnker, MIXER OPERATOR VACUUM PAN SALT [address] [place] [address], [place] [address] Assigned PCP 05/19/23 documented as of this encounter
--- OUTSIDE RECORDS SUMMARY | 2024-01-23 09:25 | XMS_ITS | Encounter Summary ---
Author Name Unknown [facility] Address [address] [facility] [place] [address] Care Team Providers Care Acetylene Plant Operator Name Role Phone Toma Arguello YESICA Unavailable [phone] Laura Us MD Unavailable [facility] Primary Care Provider Haven Buckner CNP Unavailable [phone] Jenise España MD Unavailable Unavailable Tierra Cancino-C Unavailable [phone] Luh Acharya PA-C Primary Care Provider + Luh Acharya-C Unavailable +[phone] Tierra Cancino-C Unavailable [phone] Haven Buckner CNP Unavailable [phone] Luh Acharya PA-C Unavailable [phone] Haven Buckner CNP Unavailable [phone] Reason for Visit * Reason Comments Medication Refill Encounter Details Date Type Department Care Team (Late st Contact Info) Description 10/19/2021 [facility] [address] [place] [phone] Luh Acharya PA-C [address] [place] [address] Medication Refill Social History Tobacco Use Types [...] COVID-19? No / Unsure 10/13/2021 3:21 PM POT OPERATOR documented as of this encounter Miscellaneous Notes * Telephone Encounter - Juan Pablo Hinton RN - 10/20/2021 1:29 PM CST Prescription approved per [facility] Refill Protocol. Juan Pablo Hinton RN [facility] Triage OPERATOR documented in this encounter Plan of Treatment Not on file documented as of this encounter Visit Diagnoses Diagnosis Tachycardia Tachycardia, unspecified Essential hypertension Unspecified essential hypertension LAZARO (generalized anxiety disorder) Generalized anxiety disorder documented in this encounter Additional Health Concerns Infection Onset Date Last Indicated Resolved Time Rule Out COVID-19 12/19/2021 12/19/2021 12/20/2021 1:02 PM CDT Assessment Noted Time PHQ-9 Depression Total Score: 2 02/23/20 21 8:02 AM CDT documented as of this encounter Care Teams Acetylene Plant Operator Relationship Specialty Start Date End Date Clinic - [facility] [address] [place] [address] PCP - General 10/06/20 11/20/21 Luh Acharya PA-C [address] [place] [address] PCP - General Family Medicine 11/21/21 01/02/23 Toma Arguello SHIP UNLOADER [place] [address] [place] [address] Nurse Practitioner Nurse Practitioner Psych/Mental Health 04/11/17 Laura Us MD [place] [address] [place] [address] Gastroenterology 12/20/18 Haven Buckner, LOT BOSS [address] [place] [address] Assigned PCP 05/22/21 11/26/21 Jenise España MD Assigned Heart and Vascular Provider 07/24/21 11/17/22 Tierra Cancino PA-C [address] [place] [address] Physician Athletic Shoe Designer Urology 11/17/21 Luh Acharya PA-C [address] [place] [address] Assigned PCP 11/27/21 12/31/21 Tierra Cancino PA-C [address] [place] [address] Assigned Surgical Provider 12/11/21 06/08/23 Haven Buckner CNP [address] [place] [address] Assigned PCP 01/01/22 12/22/22 Luh Acharya PA-C [address] [place] [address] Assigned PCP 12/23/22 05/18/23 Haven Buckner CNP [address] [place] [address] Assigned PCP 05/19/23 documented as of this encounter
--- OUTSIDE RECORDS SUMMARY | 2024-01-23 09:25 | XMS_ITS | Encounter Summary ---
Author Name Unknown Organization [place] Address [address] [facility] [place] [address] Care Team Providers Care Plant Operations Vice President Name Role Phone Toma Arguello Arun ROBERT Unavailable [phone] Laura Us MD Unavailable Tierra Cancino PA-C Unavailable Luh Acharya PA-C Primary Care Provider + Tierra Cancino PA-C Unavailable Luh Acharya PA-C Unavailable [phone] Haven Buckner CNP Unavailable Reason for Visit * Reason Comments Medication Refill Encounter Details Date Type Department Care Team (Late st Contact Info) Description 12/30/[address] [phone] Luh Acharya PA-C [address] [place] [address] [phone] Medication Refill Social History Tobacco Use Types [...] encounter Miscellaneous Notes * Telephone Encounter - Luh Acharya PA-C - 01/02/2023 4:37 PM CDT Images from the original note were not included. 90 days sent to pharmacy. Please advise pt due for fasting physical further fills. Luh Acharya MBA, MS, REFUGIO [facility] * Telephone Encounter - Haven Pike CMA - 01/02/2023 2:12 PM CDT No longer a patient here. She will call her pharmacy and have them update pcp Haven Pike CMA * Telephone Encounter - Ellen Retana RN - 01/02/2023 7:27 AM CDT Please call patient to schedule an appointment Due for an Office visit for further refills. Last yearly physical appointment was RADHA 12/29/21 Medication be be purchased over the counter. Please route to provider after appointment has been made so lesley refills can be provided Drug does not pass the [facility] refill protocol Thank you! Ellen Lemon RN [facility] Triage documented in this encounter Plan of Treatment Not on file documented as of this encounter Visit Diagnoses Diagnosis Gastroesophageal reflux disease, unspecified whether esophagitis present documented in this encounter Additional Health Concerns Assessment Noted Time PHQ-9 Depression Total Score: 5 10/25/19 22 7:03 AM CARD PUNCHING MACHINE OPERATOR documented as of this encounter Care Teams Plant Operations Vice President Relationship Specialty Start Date End Date Luh Acharya PA-C [address] [place] [address] PCP - General Family Medicine 11/21/21 01/02/23 Toma Arguello NP [place] [place] [address] Nurse Practitioner Nurse Practitioner Psych/Mental Health 04/11/17 Laura Us MD [place] [address] [place] [address] Gastroenterology 12/20/18 Tierra Cancino PA-C [address] [place] [address] Physician Radio Repairman Urology 11/17/21 Tierra Cancino PA-C [address] [place] [address] Assigned Surgical Provider 12/11/21 06/08/23 Luh Acharya PA-C [address] [place] [address] Assigned PCP 12/23/22 05/18/23 Haven Buckner, INTERNATIONAL TRAVEL CONSULTANT [address] [place] [address] Assigned PCP 05/19/23 documented as of this encounter
--- OUTSIDE RECORDS SUMMARY | 2024-01-23 09:25 | XMS_ITS | Encounter Summary ---
Author Name Unknown Organization [place] Address [address] [facility] [place] [address] Care Team Providers Care Elementary Math Tutor Name Role Phone Toma Arguello YESICA Unavailable [phone] Laura Us MD Unavailable [facility] Primary Care Provider Haven Buckner PRINT COLOR MATCHER Unavailable [phone] Jenise España MD Unavailable Unavailable Tierra Cancino-C Unavailable [phone] Luh Acharya-Melissa Primary Care Provider + Luh Acharya-C Unavailable [phone] Tierra Cancino-C Unavailable [phone] Haven Buckner CNP Unavailable [phone] Luh Acharya PA-C Unavailable [phone] Haven Buckner CNP Unavailable [phone] Encounter Details Date Type Department Care Team (Late st Contact Info) Description 10/23/2021 [facility] [address] [address] Shivani Sparrow RN Social History Tobacco Use Types Packs/Day Years [...] COVID-19? No / Unsure 10/13/2021 3:21 PM CLINICAL SAFETY SPECIALIST documented as of this encounter Plan of Treatment Not on file documented as of this encounter Visit Diagnoses Not on filedocumented in this encounter Additional Health Concerns Infection Onset Date Last Indicated Resolved Time Rule Out COVID-19 12/19/2021 12/19/2021 12/20/2021 1:02 PM CDT Assessment Noted Time PHQ-9 Depression Total Score: 5 10/25/19 22 7:03 AM CLINICAL SAFETY SPECIALIST documented as of this encounter Care Teams Elementary Math Tutor Relationship Specialty Start Date End Date [facility] - [address] [phone] PCP - General 10/06/20 11/20/21 Luh Acharya PA-C [address] [place] [address] [phone] PCP - General Family Medicine 11/21/21 01/02/23 Tmoa Arguello NP [address] [address] Nurse Practitioner Nurse Practitioner Psych/Mental Health 04/11/17 Laura Us MD [address] [address] Gastroenterology 12/20/18 Haven Buckner, PRINT COLOR MATCHER [address] [place] [address] Assigned PCP 05/22/21 11/26/21 Jenise España MD Assigned Heart and Vascular Provider 07/24/21 11/17/22 Tierra Cancino PA-C [address] [place] [address] Physician Ui Software Developer Urology 11/17/21 Luh Acharya PA-C [address] [place] [address] Assigned PCP 11/27/21 12/31/21 Tierra Cancino PA-C [address] [place] [address] Assigned Surgical Provider 12/11/21 06/08/23 Haven Buckner, PRINT COLOR MATCHER [address] [place] [address] Assigned PCP 01/01/22 12/22/22 Luh Acharya PA-C [address] [place] [address] Assigned PCP 12/23/22 05/18/23 Haven Buckner, PRINT COLOR MATCHER [address] [place] [address] Assigned PCP 05/19/23 documented as of this encounter
--- OUTSIDE RECORDS SUMMARY | 2024-01-23 09:25 | XMS_ITS | Encounter Summary ---
Author Name Unknown Organization [place] Address [address] [facility] [place] [address] Care Team Providers Care Small Engine Trainer Name Role Phone Toma Arguello YESIAC Unavailable [phone] Laura Us MD Unavailable [facility] Primary Care Provider Haven Buckner CNP Unavailable [phone] Jenise España MD Unavailable Unavailable Tierra Cancino-C Unavailable [phone] Luh Acharya PA-C Primary Care Provider + Luh Acharya PA-C Unavailable [phone] Tierra Cancino-Melissa Unavailable [phone] Haven Buckner CNP Unavailable [phone] Luh Acharya PA-C Unavailable [phone] Haven Buckner CNP Unavailable [phone] Reason for Visit * Reason Comments Medication Refill Encounter Details Date Type Department Care Team (Late st Contact Info) Description 09/07/[address] [phone] Haven Buckner, SCHOOL AIDE [address] [place], [place] [address] Medication Refill Social History Tobacco Use Types [...] encounter Miscellaneous Notes * Telephone Encounter - Tiffanie Hayward RN - 09/08/2021 3:35 PM CST Prescription approved per [facility] Refill Protocol. GN ARCHITECT documented in this encounter Plan of Treatment Not on file documented as of this encounter Visit Diagnoses Diagnosis Persistent insomnia Persistent disorder of initiating or maintaining sleep documented in this encounter Additional Health Concerns Infection Onset Date Last Indicated Resolved Time Rule Out COVID-19 12/19/2021 12/19/2021 12/20/2021 1:02 PM CDT Assessment Noted Time PHQ-9 Depression Total Score: 2 02/23/20 21 8:02 AM CDT documented as of this encounter Care Teams Small Engine Trainer Relationship Specialty Start Date End Date Clinic - [facility] [address] [place] [phone] PCP - General 10/06/20 11/20/21 Luh Acharya PA-C [address] [place] [address] PCP - General Family Medicine 11/21/21 01/02/23 Toma Arguello V/STOL LANDING SIGNAL OFFICER [facility] [address] [place] [address] Nurse Practitioner Nurse Practitioner Psych/Mental Health 04/11/[address] [facility] [address] [place] [address] Gastroenterology 12/20/18 Haven Buckner, SCHOOL AIDE [address] [place] [address] [phone] Assigned PCP 05/22/21 11/26/21 Jenise España MD Assigned Heart and Vascular Provider 07/24/21 11/17/22 Tierra Cancino PA-C [address] [place] [address] Physician Unloader Operator Urology 11/17/21 Luh Acharya PA-C [address] [place] [address] Assigned PCP 11/27/21 12/31/21 Tierra Cancino PA-C [address] [place] [address] Assigned Surgical Provider 12/11/21 06/08/23 Haven Buckner, SCHOOL AIDE [address] [place] [address] Assigned PCP 01/01/22 12/22/22 Luh Acharya PA-C [address] [place] [address] Assigned PCP 12/23/22 05/18/23 Haven Buckner, NICOLE [address] [place] [address] Assigned PCP 05/19/23 documented as of this encounter
--- OUTSIDE RECORDS SUMMARY | 2024-01-23 09:25 | XMS_ITS | Referral Summary ---
Author Name Unknown Organization [place] Address [address] [facility] [place] [address] Care Team Providers Care Global Marketing Intern Name Role Phone SaundraToyinTomagaetano Dias NP Unavailable [phone] Laura Us MD Unavailable Tierra Cancino PA-C Unavailable [phone] Haven Buckner ASSEMBLER FOR PULLER OVER MACHINE Unavailable [phone] Allergies Active Allergy Reactions Criticality Noted Date [...] 180 tablet 3 11/15/2021 Active nystatin (MYCOSTATIN) [id number] UNIT/GM external creamIndications:I ntertriginous candidiasis Apply topically [...] and replacement with titanium plate 07/24/2017 at [facility] 07/11/2017 Class 1 obesity with serious comorbidity [...] her. She's working with her neurologist at [facility] and [facility].for postconcussion therapy and evaluation. Did an EEG [...] .- discontinued by the chronic pain clinic -[facility] 04/2017 Maximum quantity per month: #30 Clinic visit frequency required: Q 6 months Controlled substance agreement on file: Yes Date(s): 01/05/2017 Pain Clinic evaluation in the past: No DIRE Total Score(s): 06/03/2015 [address] Score [address] [facility] website verification: done on 01/05/2017 https://[facility].Condition One/ Intractable migraine without aura and without status migrainosus- [facility] - every 4-6 weeks 06/03/2015 Chronic bilateral low back p ain with right-sided sciatica-- resolved s/p spine surgery with Dr. Sosa 07/24/2017 06/03/2015 Overview: Not going to [facility] at all for her chronic [...] c low back pain - managed by [facility] 06/03/2015 Skin cancer, basal [...] 11/15/2021,08/15/2011 Zoster recombinant adjuvante d (SHINGRIX) 08/04/2020,05/30/2020 Social History Tobacco Use Types Packs/Day Years [...] 12/19/2021 9:41 AM CDT Plan of Treatment Not on file Procedures Procedure Name Priority Date/Time Associated Diagnosis Comments URINALYSIS MACROSCOPIC Routine 12/02/2021 3:23 PM CDT Recurrent UTI TSH WITH FREE T4 REFLEX Routine 11/17/2021 7:16 AM MEETING FACILITATOR Other fatigue ALBUMIN RANDOM URINE QUANTITATIVE Routine 11/17/2021 7:16 AM MEETING FACILITATOR Essential hypertension LIPID REFLEX TO DIRECT LDL PANEL Routine 11/17/2021 7:16 AM MEETING FACILITATOR Hyperlipidemia LDL goal <130 COMPREHENSIVE METABOLIC PANEL Routine 11/17/2021 7:16 AM MEETING FACILITATOR Hyperlipidemia LDL goal <130 Essential hypertension Essential hypertension with goal blood pressure less than 140/90 MA SCREENING BILATERAL W/ SUNNY Routine 10/13/2021 3:39 PM MEETING FACILITATOR Visit for screening mammogram CBC WITH PLATELETS AND DIFFERENTIAL STAT 06/06/2021 1:10 PM CDT Tachycardia SOB (shortness of breath) CBC WITH PLATELETS & DIFFERENTIAL STAT 06/06/2021 1:10 PM CDT Tachycardia SOB (shortness of breath) HEPATITIS C SCREEN REFLEX TO HCV RNA QUANT AND GENOTYPE Routine 09/23/2020 9:03 AM MEETING FACILITATOR Need for hepatitis C screening test HPV HIGH RISK TYPES DNA CERVICAL Routine 09/23/2020 8:44 AM MEETING FACILITATOR Screening for malignant neoplasm of cervix PAP IMAGED THIN LAYER SCREEN Routine 09/23/2020 8:34 AM MEETING FACILITATOR Screening for malignant neoplasm of cervix COLONOSCOPY Routine 09/29/2019 8:14 AM MEETING FACILITATOR PHQ-9 DEPRESSION SCREENING ORDER Routine 07/23/2019 URINE [...] Maintenance Results * (ABNORMAL) UA without Microscopic [[id number]] (12/02/2021 3:23 PM CDT) Color Urine Yellow [...] 3:57 PM CDT [facility] Specific [place] Urine 1.020 1.003 - 1.035 12/02/2021 3:57 [...] URINE O RDERABLES [facility] [address] [facility] [address] [place] [address], [facility] [phone] * TSH with free T4 reflex (11/17/2021 7:16 AM MEETING FACILITATOR) TSH 0.69 0.40 - 4.00 mU/L 11/18/2021 4:49 PM MEETING FACILITATOR [facility] Blood STRUCTURE OF RIGHT UPPER LIMB / Unknown Venipuncture / Unknown 11/17/2021 7:16 AM MEETING FACILITATOR 11/17/2021 7:16 AM MEETING FACILITATOR Chance Bundy PA-C LAB - BLOOD ORDE JENNIFER [facility] [place] [facility] [address] [facility], [address] [place] [address], [facility] [phone] * Albumin Random Urine Quantitative with Creat Ratio (11/17/2021 7:16 AM MEETING FACILITATOR) Creatinine Urine mg/dL 70 mg/dL 11/17/2021 4:27 PM MEETING FACILITATOR [facility] Albumin Urine mg/L <5 mg/L 11/17/2021 4:27 PM MEETING FACILITATOR [facility] Albumin Urine mg/g Cr 11/17/2021 4:27 PM MEETING FACILITATOR [facility] Comment:Unable to calculate: ??Urine creatinine or albumin value below detectable level Urine MID-STREAM URINE SPECIMEN / Unknown Non-blood Collection / Unknown 11/17/2021 7:16 AM MEETING FACILITATOR 11/17/2021 7:16 AM MEETING FACILITATOR Chance Bundy PA-C LAB - URINE ORDE JENNIFER [facility] [address] Lab (no room number, 1st floor of clinic) [place] [address], [place] [phone] * (ABNORMAL) Lipid panel reflex to direct LDL Fasting (11/17/2021 7:16 AM MEETING FACILITATOR) Cholesterol 152 <200 mg/dL 11/18/2021 4:49 PM MEETING FACILITATOR [facility] Triglycerides 308(H) <150 mg/dL 11/18/2021 4:49 PM MEETING FACILITATOR [facility] Direct Measure HDL 36(L) >=50 mg/dL 11/18/2021 4:49 PM MEETING FACILITATOR [facility] LDL Cholesterol Calculated 54 <=100 mg/dL 11/18/2021 4:49 PM MEETING FACILITATOR [facility] Non HDL Cholesterol 116 <130 mg/dL 11/18/2021 4:49 PM MEETING FACILITATOR [facility] Patient Fasting > 8hrs? Yes 11/18/2021 4:49 PM MEETING FACILITATOR [facility] Blood STRUCTURE OF RIGHT UPPER LIMB / Unknown Venipuncture / Unknown 11/17/2021 7:16 AM MEETING FACILITATOR 11/17/2021 7:16 AM MEETING FACILITATOR Narrative [facility] - 11/18/2021 4:49 PM MEETING FACILITATOR Cholesterol Desirable: ??<200 mg/dL Triglycerides Normal: ??Less [...] LAB - BLOOD ANNA RODRIGUEZ [facility] [place] [facility] [address] [facility] [address], [address] [place] [address], [facility] [phone] LABORATORY [facility] [place] [facility] [address] Lab (no room number, 1st floor of clinic) [place] [address], [facility] [phone] * (ABNORMAL) Comprehensive metabolic panel (BMP + Alb, Alk Phos, ALT, AST, Total. Bili, TP) (11/17/2021 7:16 AM MEETING FACILITATOR) Sodium 138 133 - 144 mmol/L 11/18/2021 4:49 PM MEETING FACILITATOR [facility] Potassium 4.7 3.4 - 5.3 mmol/L 11/18/2021 4:49 PM MEETING FACILITATOR [facility] Chloride 103 94 - 109 mmol/L 11/18/2021 4:49 PM MEETING FACILITATOR [facility] Carbon Dioxide (CO2) 27 20 - 32 mmol/L 11/18/2021 4:49 PM MEETING FACILITATOR [facility] Anion Gap 8 3 - 14 mmol/L 11/18/2021 4:49 PM MEETING FACILITATOR [facility] Urea Nitrogen 16 7 - 30 mg/dL 11/18/2021 4:49 PM MEETING FACILITATOR [facility] Creatinine 1.24(H) 0.52 - 1.04 mg/dL 11/18/2021 4:49 PM MEETING FACILITATOR [facility] Calcium 9.1 8.5 - 10.1 mg/dL 11/18/2021 4:49 PM MEETING FACILITATOR [facility] Glucose 78 70 - 99 mg/dL 11/18/2021 4:49 PM MEETING FACILITATOR [facility] Alkaline Phosphatase 100 40 - 150 U/L 11/18/2021 4:49 PM MEETING FACILITATOR [facility] AST 21 0 - 45 U/L 11/18/2021 4:49 PM MEETING FACILITATOR [facility] ALT 26 0 - 50 U/L 11/18/2021 4:49 PM MEETING FACILITATOR [facility] Protein Total 7.4 6.8 - 8.8 g/dL 11/18/2021 4:49 PM MEETING FACILITATOR [facility] Albumin 3.6 3.4 - 5.0 g/dL 11/18/2021 4:49 PM MEETING FACILITATOR [facility] Bilirubin Total 0.4 0.2 - 1.3 mg/dL 11/18/2021 4:49 PM MEETING FACILITATOR [facility] GFR Estimate 52(L) >60 mL/min/1.7 3m2 11/18/2021 4:49 PM MEETING FACILITATOR [facility] Comment:Effective August 182020 eGFRcr in adults is calculated using the 2020 CKD-EPI creatinine equation which includes age and gender (Gloria et al., NEJM, DOI: 10.1056/GRRAox5140001) Blood STRUCTURE OF RIGHT UPPER LIMB / Unknown Venipuncture / Unknown 11/17/2021 7:16 AM MEETING FACILITATOR 11/17/2021 7:16 AM MEETING FACILITATOR Chance Bundy PA-C LAB - BLOOD ANNA RODRIGUEZ U LABORATORY [facility] Core Lab [address] [facility], [address] [address], [facility] [phone] * MA Screen Bilateral w/Sunny (10/13/2021 3:39 PM MEETING FACILITATOR) Anatomical Region Laterality Modality Breast Bilateral Mammography Narrative 10/14/2021 8:52 AM MEETING FACILITATOR BILATERAL FULL FIELD DIGITAL SCREENING MAMMOGRAM WITH [...] LAB - BLOOD ANNA RODRIGUEZ RH LABORAT[facility] Lab [address] Lab (1st floor, no room number) [place] [address], [facility] [phone] * Hepatitis C Screen Reflex to HCV RNA Quant and Genotype (09/23/2020 9:03 AM MEETING FACILITATOR) Hepatitis C Antibody Nonreactive NR^Nonre active 09/23/2020 4:55 PM MEETING FACILITATOR [facility] Comment: Assay performance characteristics have not been established for newborns, infants, and children Blood specimen (specimen) 09/23/2020 9:03 AM MEETING FACILITATOR 09/23/2020 9:04 AM MEETING FACILITATOR Chance Bundy PA-C LAB - BLOOD ANNA RODRIGUEZ [address] [address] * HPV High Risk Types DNA Cervical (09/23/2020 8:44 AM MEETING FACILITATOR) HPV Source [facility] 09/23/2020 8:34 AM MEETING FACILITATOR [facility] HPV 16 DNA Negative NEG^Nega tive 09/29/2020 3:34 PM MEETING FACILITATOR [facility] HPV 18 DNA Negative NEG^Nega tive 09/29/2020 3:34 PM MEETING FACILITATOR [facility] Other HR HPV Negative NEG^Nega tive 09/29/2020 3:34 PM MEETING FACILITATOR [facility] Final Diagnosis This patient's sample is negative for HPV DNA. 09/29/2020 3:34 PM MEETING FACILITATOR [facility] Comment: This test was developed and its performance characteristics determined by the [facility], Molecular Diagnostics Laboratory. It has [...] Specimen Description Cervical Cells 09/23/2020 8:34 AM MEETING FACILITATOR [facility] Cervical Cells CERVIX UTERI STRUCTURE / Unknown 09/23/2020 8:44 AM MEETING FACILITATOR 09/23/2020 9:03 AM MEETING FACILITATOR Chance Bundy PA-C LAB - BLOOD ANNA RODRIGUEZ [address] [address] [address] * Pap imaged thin layer screen with HPV - recommended age 30 - 65 years (select HPV order below) (09/23/2020 8:34 AM MEETING FACILITATOR) PAP ELISEO Pastor Report Patient Name: YENNI DYSON MR#: [id number] Specimen #: [id number] Collected: 09/23/2020 Received: 09/24/2020 [...] adenocarcinomas or other cancers. COLLECTION SITE: Client: ??[facility] Location: [facility] () The technical component of this testing was completed at the [facility], with the professional component performed at the [facility], [address] [place] [phone] ([phone]) COPATH Cytologic material (specimen) 09/23/2020 8:34 AM MEETING FACILITATOR 09/24/2020 11:15 AM MEETING FACILITATOR Chance Bundy PA-C LAB - OPTIME CLI NICAL SPECIMEN COPATH * COLONOSCOPY (09/29/2019 8:14 AM MEETING FACILITATOR) COLONOSCOPY [facility] Patient Name: Yenni Dyson ? Procedure Date: [...] # [id number], ?[place] # [id number], SN # [id number] was introduced through ?the anus and advanced [...] Note Initiated On: 09/29/2019 8:14 AM MRN: ?[id number] Procedure Date: ? 09/29/2019 8:14:18 AM Scope Withdrawal Time: 0 hours 13 minutes 33 seconds Total Procedure Duration: 0 hours 19 minutes 46 seconds Estimated Blood Loss: ? none Scope In: 9:00:41 AM Scope Out: 9:20:27 AM RADIOLOGY RESULTS 09/29/2019 8:14 AM MEETING FACILITATOR Heber Glover MD PROCEDURES RADIOLOGY RESULTS * PHQ-9 DEPRESSION SCREENING ORDER (07/23/2019) PHQ9 SCORE 5 Narrative Caro Marino - 07/23/2019 [facility] VISIT NOTE Provider Outside OTHER * (ABNORMAL) Drug Abuse Screen Panel 13, Urine (Pain Care Package) (07/11/2018 2:01 PM CDT) Cannabinoids (94-oge-5-carboxy- 9-THC) Not Detected NDET^Not Detected ng/mL 07/11/2018 5:33 PM CDT [facility] Comment:Cutoff for a negativ e cannabinoid is 50 ng/mL or less. Phencyclidine (Phencyclidine) Not Detected NDET^Not Detected ng/mL 07/11/2018 5:33 PM CDT [facility] Comment:Cutoff for a negativ e PCP is 25 ng/mL or less. Cocaine (Benzoylecgonine) Not Detected NDET^Not Detected ng/mL 07/11/2018 5:33 PM CDT [facility] Comment:Cutoff for a negativ e cocaine is 150 ng/ml or less. Methamphetamine (d-Methamphetamine ) Not Detected NDET^Not Detected ng/mL 07/11/2018 5:33 PM CDT [facility] Comment:Cutoff for a negativ e methamphetamine is 500 ng/ml or less. Opiates (Morphine) Detected, Abnormal Result(A) NDET^Not Detected ng/mL 07/11/2018 5:33 PM CDT [facility] Comment: Cutoff for a positive opiate is greater than 100 ng/ml. This is an unconfirmed screening result to be used for medical purposes only. Order [id number] for confirmation or individual confirmation tests to [facility]. Amphetamine (d-Amphetamine) Not Detected NDET^Not Detected ng/mL 07/11/2018 5:33 PM CDT [facility] Comment:Cutoff for a negativ e amphetamine is 500 ng/mL or less. Benzodiazepines (Nordiazepam) Not Detected NDET^Not Detected ng/mL 07/11/2018 5:33 PM CDT [facility] Comment:Cutoff for a negativ e benzodiazepine is 150 ng/ml or less. Tricyclic Antidepressants (Desipramine) Detected, Abnormal Result(A) NDET^Not Detected ng/mL 07/11/2018 5:33 PM CDT [facility] Comment: Cutoff for a positive tricyclic antidepressant is greater than 300 ng/ml. This is an unconfirmed screening result to be used for medical purposes only. Order [id number] for confirmation or individual confirmation tests to [facility]. Methadone (Methadone) Not Detected NDET^Not Detected ng/mL 07/11/2018 5:33 PM CDT [facility] Comment:Cutoff for a negativ e methadone is 200 ng/ml or less. Barbiturates (Butalbital) Not Detected NDET^Not Detected ng/mL 07/11/2018 5:33 PM CDT [facility] Comment:Cutoff for a negativ e barbituate is 200 ng/ml or less. Oxycodone (Oxycodone) Not Detected NDET^Not Detected ng/mL 07/11/2018 5:33 PM CDT [facility] Comment:Cutoff for a negativ e Oxycodone is 100 ng/mL or less. Propoxyphene (Norpropoxyphene) Not Detected NDET^Not Detected ng/mL 07/11/2018 5:33 PM CDT [facility] Comment:Cutoff for a negativ e propoxyphene is 300 ng/ml or less Buprenorphine (Buprenorphine) Not Detected NDET^Not Detected ng/mL 07/11/2018 5:33 PM CDT [facility] Comment:Cutoff for a negativ e buprenorphine is 10 ng/ml or less Urine specimen (specimen) 07/11/2018 2:01 PM CDT 07/11/2018 2:02 PM CDT Heber Glover MD LAB - URINE ORD ERABLES [facility] [address] [place] [address] * HIV Screening (07/11/2018 10:09 AM CDT) HIV Antigen Antibody Combo Nonreactive NR^Nonrea ctive 07/12/2018 9:42 AM CDT [facility] Comment:HIV-1 p24 Ag & HIV-1 /HIV-2 Ab Not Detected Blood specimen (specimen) 07/11/2018 10:09 AM CDT 07/11/2018 10:10 AM CDT Heber Glover MD LAB - BLOOD ORD ERABLES Performing Organization Address City/[facility]/ZIP Co de Phone Number [facility] [address] [place], [place] [address] * CT Chest/Abdomen/Pelvis w Contrast (04/16/2016 3:09 [...] Advance Directives For more information, please contact: [phone] * Full Code (Latest Code Status on File) Date Activated Date Inactivated Comments 06/27/2017 4:33 PM 06/28/2017 4:51 PM * Full Code Date Activated Date Inactivated Comments 07/07/2016 2:47 PM 06/27/2017 4:33 PM * Full Code Date Activated Date Inactivated Comments 07/06/2016 5:24 PM 07/07/2016 2:47 PM Care Teams Global Marketing Intern Relationship Specialty Start Date End Date Toma Arguello NP [facility] [address] [place] [address] Nurse Practitioner Nurse Practitioner Psych/Mental Health 04/11/17 Laura Us MD [facility] [address] [place] [address] Gastroenterology 12/20/18 Tierra Cancino PA-C [address] [facility] [address] [place] [address] Physician Informatics Nurse Urology 11/17/21 Haven Buckner, NICOLE [address] [place] [phone] Assigned PCP 05/19/23
--- OUTSIDE RECORDS SUMMARY | 2024-01-23 09:26 | XMS_ITS | Encounter Summary ---
Author Name Unknown Organization [facility] Address [address] [facility] [place] [address] Care Team Providers Care Insurance Defense Paralegal Name Role Phone Kathy Glover MD Primary Care Provider SaundraToma ruiz NP Unavailable Kathy Glover MD Unavailable [phone] Laura Us MD Unavailable Luh AcharyaC Unavailable + [phone] Kathy Glover MD Unavailable [phone] Luh Acharya-C Unavailable + [phone] Edward Marlow MD Unavailable [phone] [facility] Primary Care Provider Jas Bojorquez DO Unavailable +[phone] Haven Buckner CNP Unavailable +[phone] Jenise España MD Unavailable Unavailable Tierra Cancino PA-C Unavailable Luh AcharyaC Primary Care Provider + Luh Acharya-C Unavailable Tierra CancinoC Unavailable Haven Buckner CNP Unavailable +[phone] Marck Luh Enedina BAUTISTAC Unavailable +[phone] BucknerHaven lofton CNP Unavailable +[phone] Reason for Visit * Reason Onset Date Comments MyChart Communication 01/09/2019 fibromyalg ia testing Encounter Details Date Type Department Care Team (Latest Contact Info) Description 01/09/2019 MyC Medical Advice [address] [phone] Marcy Smith, KARMEN MyChart Communication (fibromyalgia testing) Social History Tobacco Use Types Packs/Day Years Used Date Smoking Tobacco: Former Cigarettes 1 20 0 03/17/1988 - 03/17/2008 Smokeless Tobacco: Never Alcohol Use Standard Drinks/Week Comments Yes 0 (1 standard drink = 0.6 oz pur e alcohol) glass of wine at night PHQ-2 Answer Date Recorded PHQ-2 Score 4 09/24/2018 Sex and Gender Information Value Date Recorded Sex Assigned at Female 01/18/2019 9:01 AM CDT Gender Identity Female 01/18/2019 9:01 AM CDT Sexual Orientation Straight 01/18/2019 9: 01 AM CDT documented as of this encounter Miscellaneous Notes * Telephone Encounter - Marcy Smith RN - 01/09/2019 2:36 PM CDT Noted. Dona Smith RN [place] Triage documented in this encounter Plan of Treatment Not on file documented as of this encounter Visit Diagnoses Not on filedocumented in this encounter Additional Health Concerns Infection Onset Date Last Indicated Resolved Time Rule Out COVID-19 06/06/2021 06/06/2021 06/06/2021 5:30 PM CDT Rule Out COVID-19 12/19/2021 12/19/2021 12/20/2021 1:02 PM CDT Assessment Noted Time PHQ-9 Depression Total Score: 5 11/22/19 19 7:06 AM THERAPIST documented as of this encounter Care Teams Insurance Defense Paralegal Relationship Specialty Start Date End Date Kathy Glover MD [address] [place] [address] PCP - General Family Practice 06/03/15 10/05/[address] [address] PCP - General 10/06/20 11/20/21 Luh Acharya PA-C [address] [place] [address] PCP - General Family Medicine 11/21/21 01/02/23 Toma Arguello NP [address] [address] Nurse Practitioner Nurse Practitioner Psych/Mental Health 04/11/17 Kathy Glover MD [address] [place] [address] 65347 Assigned PCP 07/25/15 12/20/19 Laura Us MD [address] [place] [address]401 Gastroenterology 12/20/18 Luh Acharya PA-C [address] [place] [address] 70233 Assigned PCP 12/21/19 01/17/20 Kathy Glover MD [address] [place] [address] 68124 Assigned PCP 01/18/20 06/19/20 Luh Acharya PA-C [address] [place] [address] 25813 Assigned PCP 06/20/20 03/31/21 Edward Marlow [place] [address] Assigned Surgical Provider 07/09/20 07/31/20 Jas Bojorquez DO [address] [place] [address]70 Assigned PCP 04/01/21 05/21/21 Haven Buckner CNP [address] [place] [address] 49136 Assigned PCP 05/22/21 11/26/21 Jenise España MD Assigned Heart and Vascular Provider 07/24/21 11/17/22 Tierra Cancino PA-C [address] [place] [address] Physician Lining Strap Closer Urology 11/17/21 Luh Acharya PA-C [address] [place] [address] Assigned PCP 11/27/21 12/31/21 Tierra Cancino PA-C [address] [place] [address] Assigned Surgical Provider 12/11/21 06/08/23 Haven Buckner, NICOLE [address] [place] [address] 32762 Assigned PCP 01/01/22 12/22/22 Luh Acharya PA-C [address] [place] [address]206 Assigned PCP 12/23/22 05/18/23 Haven Buckner, NICOLE [address] [place] [address] 10597 Assigned PCP 05/19/23 documented as of this encounter
--- OUTSIDE RECORDS SUMMARY | 2024-01-23 09:26 | XMS_ITS | Encounter Summary ---
Author Name Unknown Organization [facility] Address [address] [facility] [place] [address] Care Team Providers Care Social Worker Assistant Name Role Phone Kathy Glover MD Primary Care Provider Toma Arguello NP Unavailable [phone] Laura Us MD Unavailable Luh Acharya-C Unavailable + [phone] [facility] Primary Care Provider Jas Bojorquez DO Unavailable [phone] Haven Buckner AUTO BODY REPAIRER Unavailable +[phone] Jenise España MD Unavailable Unavailable Tierra Cancino-C Unavailable [phone] Luh Acharya-C Primary Care Provider + Luh Acharya-C Unavailable + [phone] Tierra Cancino-C Unavailable Haven Buckner AUTO BODY REPAIRER Unavailable +[phone] Luh Acharya-C Unavailable + [phone] Haven Buckner CNP Unavailable [phone] Reason for Visit * Reason Comments Medication Refill Encounter Details Date Type Department Care Team (Late st Contact Info) Description 08/15/[address] [phone] [place] [address] [place] [address] Medication Refill Social History Tobacco Use Types Packs/Day Years Used Date Smoking Tobacco: Former Cigarettes 1 20 0 03/17/1988 - 03/17/2008 Smokeless Tobacco: Never Alcohol Use Standard Drinks/Week Comments Yes 0 (1 standard drink = 0.6 oz pur e alcohol) 1-2 per week PHQ-2 Answer Date Recorded PHQ-2 Score 0 07/27/2020 Sex and Gender Information Value Date Recorded Sex Assigned at Female 01/18/2019 9:01 AM CDT Gender Identity Female 01/18/2019 9:01 AM CDT Sexual Orientation Straight 01/18/2019 9: 01 AM CDT documented as of this encounter Miscellaneous Notes * Telephone Encounter - Raina Thomas - 08/18/2020 9:23 AM CST [facility] message sent to patient to call and schedule follow up visit Raina Thomas/ Loading Rack Supervisor DOZER PRESS OPERATOR * Telephone Encounter - Haven Navarro APRN CNP - 08/16/2020 5:03 PM BULLDOZER PRESS OPERATOR Images from the original note were not included. Due for physical wellness exam with pap; please help patient get this set up. #90 day fill. STELLA Johnson-SINCERE DOZER PRESS OPERATOR * Telephone Encounter - Agustina Mares RN - 08/16/2020 2:09 PM CST Routing refill request to provider for review/approval because: Drug interaction warning DOZER PRESS OPERATOR documented in this encounter Plan of Treatment Not on file documented as of this encounter Visit Diagnoses Diagnosis Persistent insomnia- managed by [facility] - Dr. Cao Persistent disorder of initiating or maintaining sleep Major depressive disorder, recurrent episode, moderate (H) Major depressive disorder, recurrent episode, moderate LAZARO (generalized anxiety disorder) Generalized anxiety disorder documented in this encounter Additional Health Concerns Infection Onset Date Last Indicated Resolved Time Rule Out COVID-19 06/06/2021 06/06/2021 06/06/2021 5:30 PM CDT Rule Out COVID-19 12/19/2021 12/19/2021 12/20/2021 1:02 PM CDT Assessment Noted Time PHQ-9 Depression Total Score: 1 07/27/20 2:05 PM BULLDOZER PRESS OPERATOR documented as of this encounter Care Teams Social Worker Assistant Relationship Specialty Start Date End Date Kathy Glover MD [address] [place] [address] [phone] PCP - General Family Practice 06/03/15 10/05/20 Clinic - [address] 250432 PCP - General 10/06/20 11/20/21 Luh Acharya PA-C [address] [place] [address] [phone] PCP - General Family Medicine 11/21/21 01/02/23 Toma Arguello NP [address] 975377 Nurse Practitioner Nurse Practitioner Psych/Mental Health 04/11/17 Laura Us MD [address] [phone] Gastroenterology 12/20/18 Luh Acharya PA-C [address] [place] [address] Assigned PCP 06/20/20 03/31/21 Jas Bojorquez DO [address] [place] [address] Assigned PCP 04/01/21 05/21/21 Haven Buckner, AUTO BODY REPAIRER [address] [place] [address] Assigned PCP 05/22/21 11/26/21 Jenise España MD Assigned Heart and Vascular Provider 07/24/21 11/17/22 Tierra Cancino PA-C [address] [place] [address] Physician Technology Architect Urology 11/17/21 Luh Acharya PA-C [address] [place] [address] Assigned PCP 11/27/21 12/31/21 Tierra Cancino PA-C [address] [place] [address] Assigned Surgical Provider 12/11/21 06/08/23 Havne Buckner, AUTO BODY REPAIRER [address] [place] [address] Assigned PCP 01/01/22 12/22/22 Luh Acharya PA-C [address] [place] [address] Assigned PCP 12/23/22 05/18/23 Haven Buckner, NICOLE [address] [place] [address] Assigned PCP 05/19/23 documented as of this encounter
--- OUTSIDE RECORDS SUMMARY | 2024-01-23 09:26 | XMS_ITS | Encounter Summary ---
Author Name Unknown Organization [facility] Address [address] [facility] [place] [address] Care Team Providers Care Journeyman Pressman Name Role Phone Toma Arguello Arun ROBERT Unavailable [phone] Laura Us MD Unavailable [facility] Primary Care Provider aJs Bojorquez DO Unavailable [phone] BucknerHaven lofton MANUFACTURERS SERVICE REPRESENTATIVE Unavailable [phone] Jenise España MD Unavailable Unavailable Tierra Cancino PA-C Unavailable [phone] Luh Acharya-C Primary Care Provider + Luh Acharya-C Unavailable +[phone] Tierra Cancino-C Unavailable [phone] Haven Buckner CNP Unavailable [phone] Luh Acharya-C Unavailable +[phone] Haven Bucnker CNP Unavailable Encounter Details Date Type Department Care Team (Late st Contact Info) Description 04/15/2021 [facility] [place] [address] [place] [phone] Luh Acharya PA-C [address] [place] [address] [phone] Social History Tobacco Use Types Packs/Day Years [...] Telephone Encounter - Manisha Patel RN - 04/18/2021 4:25 PM CDT My chart message sent Awaiting reply Manisha Patel RN, [facility] [place] Triage documented in this encounter Plan of [...] documented as of this encounter Care Teams Journeyman Pressman Relationship Specialty Start Date End Date Clinic - [facility] [address] [address] PCP - General 10/06/20 11/20/21 Luh Acharya PA-C [address] [place] [address] PCP - General Family Medicine 11/21/21 01/02/23 Toma Arguello [employer] [place] [address] [place] [address] Nurse Practitioner Nurse Practitioner Psych/Mental Health 04/11/17 Laura Us MD [place] [address] [place], [place] 175937 Gastroenterology 12/20/18 Jas Bojorquez DO [address] [place] [address] [phone] Assigned PCP 04/01/21 05/21/21 Haven Buckner, MANUFACTURERS SERVICE REPRESENTATIVE [address] [place] [address] [phone] Assigned PCP 05/22/21 11/26/21 Jenise España MD Assigned Heart and Vascular Provider 07/24/21 11/17/22 Tierra Cancino PA-C [address] [address] Physician Greens Picker Urology 11/17/21 Luh Acharya PA-C [address] [place] [address] Assigned PCP 11/27/21 12/31/21 Tierra Cancino PA-C [address] [place], [place] [address] Assigned Surgical Provider 12/11/21 06/08/23 Haven Buckner, NICOLE [address] [place] [address], [place] [address] Assigned PCP 01/01/22 12/22/22 Luh Ahcarya PA-C [address] [place] [address], [place] [address] Assigned PCP 12/23/22 05/18/23 Haven Buckner, NICOLE [address] [place] [address], [place] [address] Assigned PCP 05/19/23 documented as of this encounter
--- OUTSIDE RECORDS SUMMARY | 2024-01-23 09:26 | XMS_ITS | Encounter Summary ---
Author Name Unknown Organization [facility] Address [address] [facility] [place] [address] Care Team Providers Care Supply Chain Design Manager Name Role Phone Kathy Glover MD Primary Care Provider SaundraToma ruiz NP Unavailable [phone] Laura Us MD Unavailable Luh Acharya-C Unavailable + [phone] Edward Marlow MD Unavailable [phone] [facility] Primary Care Provider Jas Bojorquez DO Unavailable [phone] Haven Buckner WASHING MACHINE MECHANIC Unavailable +[phone] Jenise España MD Unavailable Unavailable Tierra Cancino PA-C Unavailable [phone] Luh Acharya-C Primary Care Provider + Luh Acharya-C Unavailable + [phone] Tierra Cancino PA-C Unavailable Haven Buckner WASHING MACHINE MECHANIC Unavailable +-[phone] Luh Acharya-C Unavailable Haven Buckner WASHING MACHINE MECHANIC Unavailable Encounter Details Date Type Department Care Team (Late st Contact Info) Description 07/23/2020 [facility] [address] [phone] Juan Pablo Hinton RN Social History Tobacco Use Types Packs/Day [...] AM CDT documented as of this encounter Plan of Treatment Not on file documented as of this encounter Visit Diagnoses Not on filedocumented in this encounter Additional Health Concerns Infection Onset Date Last Indicated Resolved Time Rule Out COVID-19 06/06/2021 06/06/2021 06/06/2021 5:30 PM CDT Rule Out COVID-19 12/19/2021 12/19/2021 12/20/2021 1:02 PM CDT Assessment Noted Time PHQ-9 Depression Total Score: 1 07/27/20 20 2:05 PM DIALYSIS RN documented as of this encounter Care Teams Supply Chain Design Manager Relationship Specialty Start Date End Date Kathy Glover MD [address] [place] [phone] PCP - General Family Practice 06/03/15 10/05/20 Clinic - [place] [address] [address] PCP - General 10/06/20 11/20/21 Luh Acharya PA-C [address] [place] [address] PCP - General Family Medicine 11/21/21 01/02/23 Toma Arguello NP [facility] [address] [place] [address] Nurse Practitioner Nurse Practitioner Psych/Mental Health 04/11/17 Laura Us MD [facility] [address] [place] [address] Gastroenterology 12/20/18 Luh Acharya PA-C [address] [place] [address] [phone] Assigned PCP 06/20/20 03/31/21 Edward Marlow MD [address] [place] [address] Assigned Surgical Provider 07/09/20 07/31/20 Jas Bojorquez DO [address] [place] [address] [phone] Assigned PCP 04/01/21 05/21/21 Haven Buckner, NICOLE [address] [place] [address] [phone] Assigned PCP 05/22/21 11/26/21 Jenies España MD Assigned Heart and Vascular Provider 07/24/21 11/17/22 Tierra Cancino PA-C [address] [place] [address] Physician Colloid Mill Operator Urology 11/17/21 Luh Acharya PA-C [address] [place] [address], [place] [address] Assigned PCP 11/27/21 12/31/21 Tierra Cancino PA-C [address] [address] Assigned Surgical Provider 12/11/21 06/08/23 Haven Buckner, NICOLE [address] [place] [address] Assigned PCP 01/01/22 12/22/22 Luh Acharya PA-C [address] [place] [address], [place] [address] Assigned PCP 12/23/22 05/18/23 Haven Buckner, NICOLE [address] [place] [address] Assigned PCP 05/19/23 documented as of this encounter
--- OUTSIDE RECORDS SUMMARY | 2024-01-23 09:26 | XMS_ITS | Encounter Summary ---
Author Name Unknown Organization [place] Address [address] [facility] [place] [address] Care Team Providers Care Medical Sales Associate Name Role Phone Toma Arguello YESICA Unavailable [phone] Laura Us MD Unavailable Luh Acharya-C Unavailable +- [phone] [facility] Primary Care Provider Jas Bojorquez DO Unavailable +[phone] Haven Buckner CNP Unavailable +[phone] Jenise España MD Unavailable Unavailable Tierra Cancino-C Unavailable [phone] Luh Acharya-C Primary Care Provider + Luh Acharya-C Unavailable + [phone] Tierra Cancino-C Unavailable [phone] Haven Buckner CNP Unavailable [phone] Luh Acharya-C Unavailable + [phone] Haven Buckner CNP Unavailable +[phone] Reason for Visit * Reason Comments Medication Refill Encounter Details Date Type Department Care Team (Late st Contact Info) Description 02/01/2021 Refill [facility] [address] [place] [phone] Haven Buckner, EXTERNAL GRINDER [address] [place] [address] Medication Refill Social History Tobacco Use Types [...] encounter Miscellaneous Notes * Telephone Encounter - Renay Barlow RN - 02/01/2021 12:39 PM CDT Outpatient Medication Detail Disp Refills Start End NAIMA eszopiclone (LUNESTA) 1 MG tablet 30 tablet 0 01/06/2021 -- Sig - Route: Take 1 tablet (1 mg) by mouth At Bedtime - Oral Problem List Complete: Yes Last Office Visit with [facility] primary care provider: 01/06/2021 Future Office visit: Controlled substance agreement: Encounter-Level CSA - 01/05/2017: Controlled Substance Agreement - Scan on 01/12/2017 10:39 AM: CONTROLLED SUBSTANCE AGREEMENT Encounter-Level CSA - 06/03/2015: Controlled Substance Agreement - Scan on 06/09/2015 1:50 PM: Controlled Substance Agreement 06/03/15 Patient-Level CSA: There are no patient-level csa. Last Urine Drug Screen: No results found for: CDAUT, No results found for: COMDAT, Cannabinoids ([id number]) Date Value Ref Range Status 07/11/2018 Not Detected NDET^Not Detected ng/mL Final Comment: Cutoff for a negative cannabinoid is 50 ng/mL or less. Phencyclidine (Phencyclidine) Date Value Ref Range Status 07/11/2018 Not Detected NDET^Not Detected ng/mL Final Comment: Cutoff for a negative PCP is 25 ng/mL or less. Cocaine (Benzoylecgonine) Date Value Ref Range Status 07/11/2018 Not Detected NDET^Not Detected ng/mL Final Comment: Cutoff for a negative cocaine is 150 ng/ml or less. Methamphetamine (d-Methamphetamine) Date Value Ref Range Status 07/11/2018 Not Detected NDET^Not Detected ng/mL Final Comment: Cutoff for a negative methamphetamine is 500 ng/ml or less. Opiates (Morphine) Date Value Ref Range Status 07/11/2018 Detected, Abnormal Result (A) NDET^Not Detected ng/mL Final Comment: Cutoff for a positive opiate is greater than 100 ng/ml. This is an unconfirmed screening result to be used for medical purposes only. Order [id number] for confirmation or individual confirmation tests to [facility]. Amphetamine (d-Amphetamine) Date Value Ref Range Status 07/11/2018 Not Detected NDET^Not Detected ng/mL Final Comment: Cutoff for a negative amphetamine is 500 ng/mL or less. Benzodiazepines (Nordiazepam) Date Value Ref Range Status 07/11/2018 Not Detected NDET^Not Detected ng/mL Final Comment: Cutoff for a negative benzodiazepine is 150 ng/ml or less. Tricyclic Antidepressants (Desipramine) Date Value Ref Range Status 07/11/2018 Detected, Abnormal Result (A) NDET^Not Detected ng/mL Final Comment: Cutoff for a positive tricyclic antidepressant is greater than 300 ng/ml. This is an unconfirmed screening result to be used for medical purposes only. Order [id number] for confirmation or individual confirmation tests to [facility]. Methadone (Methadone) Date Value Ref Range Status 07/11/2018 Not Detected NDET^Not Detected ng/mL Final Comment: Cutoff for a negative methadone is 200 ng/ml or less. Barbiturates (Butalbital) Date Value Ref Range Status 07/11/2018 Not Detected NDET^Not Detected ng/mL Final Comment: Cutoff for a negative barbituate is 200 ng/ml or less. Oxycodone (Oxycodone) Date Value Ref Range Status 07/11/2018 Not Detected NDET^Not Detected ng/mL Final Comment: Cutoff for a negative Oxycodone is 100 ng/mL or less. Propoxyphene (Norpropoxyphene) Date Value Ref Range Status 07/11/2018 Not Detected NDET^Not Detected ng/mL Final Comment: Cutoff for a negative propoxyphene is 300 ng/ml or less Buprenorphine (Buprenorphine) Date Value Ref Range Status 07/11/2018 Not Detected NDET^Not Detected ng/mL Final Comment: Cutoff for a negative buprenorphine is 10 ng/ml or less Processing: Rx to be electronically transmitted to pharmacy by provider [email or web address] Routing refill request to provider for review/approval because: Drug not on the [facility] refill protocol Renay Barlow RN [facility] documented in this encounter Plan of Treatment [...] Total Score: 1 07/27/20 20 2:05 PM LIFT MECHANIC documented as of this encounter Care Teams Medical Sales Associate Relationship Specialty Start Date End Date Clinic - [facility] [address] [place] [address] PCP - General 10/06/20 11/20/21 Luh Acharya PA-C [address] [place] [address] PCP - General Family Medicine 11/21/21 01/02/23 Toma Arguello NP [address] [address] Nurse Practitioner Nurse Practitioner Psych/Mental Health 04/11/17 Laura Us MD [address] [address] Gastroenterology 12/20/18 Luh Acharya PA-C [address] [place] [address] 607902 Assigned PCP 06/20/20 03/31/21 Jas Bojorquez DO [address] [place] [address] [phone] Assigned PCP 04/01/21 05/21/21 Haven Buckner, NICOLE [address] [place] [address] [phone] Assigned PCP 05/22/21 11/26/21 Jenise España MD Assigned Heart and Vascular Provider 07/24/21 11/17/22 Tierra Cancino PA-C [address] [place] [address] Physician Offset Plate Preparation Supervisor Urology 11/17/21 Luh Acharya PA-C [address] [place] [address] Assigned PCP 11/27/21 12/31/21 Tierra Cancino PA-C [address] [place] [address] Assigned Surgical Provider 12/11/21 06/08/23 Haven Buckner, NICOLE [address] [place] [address] Assigned PCP 01/01/22 12/22/22 Luh Acharya PA-C [address] [place] [address] Assigned PCP 12/23/22 05/18/23 Haven Buckner, NICOLE [address] [place] [address] Assigned PCP 05/19/23 documented as of this encounter
--- OUTSIDE RECORDS SUMMARY | 2024-01-23 09:26 | XMS_ITS | Encounter Summary ---
Author Name Unknown Organization [place] Address [address] [facility] [place] [address] Care Team Providers Care Raimann Machine Operator Name Role Phone Kathy Glover MD Primary Care Provider Toma Arguello NP Unavailable [phone] Laura Us MD Unavailable Luh Acharya-C Unavailable + [phone] [facility] Primary Care Provider Jas Bojorquez DO Unavailable +[phone] Haven Buckner LINER ROLL CHANGER Unavailable +-[phone] Jenise España MD Unavailable Unavailable Tierra Cancino-C Unavailable [phone] Luh Acharya-C Primary Care Provider + Luh Acharya-C Unavailable + [phone] Tierra Cancino-C Unavailable Haven Buckner LINER ROLL CHANGER Unavailable +-[phone] Luh Acharya-C Unavailable + [phone] Haven Buckner CNP Unavailable +[phone] Encounter Details Date Type Department Care Team (Late st Contact Info) Description 08/18/2020 [facility] [place] [address] [phone] Raina Thomas Social History Tobacco Use Types Packs/Day Years [...] Total Score: 1 07/27/20 20 2:05 PM LOAN COORDINATOR documented as of this encounter Care Teams Raimann Machine Operator Relationship Specialty Start Date End Date Kathy Glover MD [address] [place] [address] PCP - General Family Practice 06/03/15 10/05/20 [facility] - [address] [address] PCP - General 10/06/20 11/20/21 Luh Acharya PA-C [address] [place] [address] PCP - General Family Medicine 11/21/21 01/02/23 Toma Arguello NP [address] [address] Nurse Practitioner Nurse Practitioner Psych/Mental Health 04/11/17 Laura Us MD [address] [address] Gastroenterology 12/20/18 Luh Acharya PA-C [address] [place] [address] 633552 Assigned PCP 06/20/20 03/31/21 Jas Bojorquez DO [address] [place] [address] [phone] Assigned PCP 04/01/21 05/21/21 Haven Bcukner CNP [address] [place] [address] [phone] Assigned PCP 05/22/21 11/26/21 Jenise España MD Assigned Heart and Vascular Provider 07/24/21 11/17/22 Tierra Cancino PA-C [address] [place], [place] [address] Physician Plant Breeder Scientist Urology 11/17/21 Luh Acharya PA-C [address] [place] [address]498 Assigned PCP 11/27/21 12/31/21 Tierra Cancnio PA-C [address] [place] [address] Assigned Surgical Provider 12/11/21 06/08/23 Haven Buckner, LINER ROLL CHANGER [address] [place] [address]63 Assigned PCP 01/01/22 12/22/22 Luh Acharya PA-C [address] [place] [address] Assigned PCP 12/23/22 05/18/23 Haven Buckner, LINER ROLL CHANGER [address] [place] [address]39 Assigned PCP 05/19/23 documented as of this encounter
--- OUTSIDE RECORDS SUMMARY | 2024-01-23 09:26 | XMS_ITS | Encounter Summary ---
Author Name Unknown Organization [place] Address [address] [facility] [place] [address] Care Team Providers Care Phlebotomist Supervisor/Instructor Name Role Phone Kathy Glover MD Primary Care Provider SaundraToma ruiz NP Unavailable [phone] Kathy Glover MD Unavailable +[phone] Laura Us MD Unavailable Luh AcharyaC Unavailable + [phone] Kathy Glover MD Unavailable +[phone] Luh cAharya-C Unavailable + [phone] Edward Marlow MD Unavailable [facility] Primary Care Provider Jas Bojorquez DO Unavailable +[phone] Haven Buckner CNP Unavailable +[phone] Jenise España MD Unavailable Unavailable Tierra Cancino PA-C Unavailable Luh AcharyaC Primary Care Provider + Luh Acharya-C Unavailable Tierra Cancino PA-C Unavailable [phone] Haven Buckner CNP Unavailable +[phone] Luh Acharya PA-C Unavailable [phone] Haven Buckner CNP Unavailable [phone] Encounter Details Date Type Department Care Team (Late st Contact Info) Description 07/14/2019 [facility] [address] [phone] Renay Barlow RN Social History Tobacco Use Types Packs/Day Years Used Date Smoking Tobacco: Former Cigarettes 1 20 0 03/17/1988 - 03/17/2008 Smokeless Tobacco: Never Alcohol Use Standard Drinks/Week Comments Yes 0 (1 standard drink = 0.6 oz pur e alcohol) SOCIAL PHQ-2 Answer Date Recorded PHQ-2 Score 0 07/03/2019 Sex and Gender Information Value Date Recorded [...] Assessment Noted Time PHQ-9 Depression Total Score: 0 07/10/20 19 10:06 AM CDT documented as of this encounter Care Teams Phlebotomist Supervisor/Instructor Relationship Specialty Start Date End Date Kathy Glover MD [address] [place] [address] [phone] PCP - General Family Practice 06/03/15 10/05/20 Clinic - [address] [address] PCP - General 10/06/20 11/20/21 Luh Acharya PA-C [address] [place] [address] PCP - General Family Medicine 11/21/21 01/02/23 Toma Arguello SALESPERSON AUTOMOBILES [address] [address] Nurse Practitioner Nurse Practitioner Psych/Mental Health 04/11/17 Kathy Glover MD [address] [place] [address]13 Assigned PCP 07/25/15 12/20/19 Laura Us MD [address] [place] [address] Gastroenterology 12/20/18 Luh Acharya PA-C [address] [place] [address] Assigned PCP 12/21/19 01/17/20 Kathy Glover MD [address] [place] [address] 26087 Assigned PCP 01/18/20 06/19/20 Luh Acharya PA-C [address] [place] [address] 25714 Assigned PCP 06/20/20 03/31/21 Edward Marlow MD [address] [place] [address] Assigned Surgical Provider 07/09/20 07/31/20 Jas Bojorquez DO [address] [place] [address] Assigned PCP 04/01/21 05/21/21 Haven Buckner, FRONT FACER [address] [place] [address] 924022 Assigned PCP 05/22/21 11/26/21 Jenise España MD Assigned Heart and Vascular Provider 07/24/21 11/17/22 Tierra Cancino PA-C [address] [place] [address] Physician Plant Utility Person Urology 11/17/21 Luh Acharya PA-C [address] [place] [address] Assigned PCP 11/27/21 12/31/21 Tierra Cancino PA-C [address] [place] [address] Assigned Surgical Provider 12/11/21 06/08/23 Haven Buckner, NICOLE [address] [place] [address] Assigned PCP 01/01/22 12/22/22 Luh Acharya PA-C [address] [place] [address] Assigned PCP 12/23/22 05/18/23 Haven Buckner, FRONT FACER [address] [place] [address] Assigned PCP 05/19/23 documented as of this encounter
--- OUTSIDE RECORDS SUMMARY | 2024-01-23 09:26 | XMS_ITS | Encounter Summary ---
Author Name Unknown Organization [place] Address [address] [facility] [place] [place] [address] Care Team Providers Care Electronics Department Manager Name Role Phone Kathy Glover MD Primary Care Provider SaundraToma ruiz NP Unavailable [phone] Kathy Glover MD Unavailable +[phone] Laura Us MD Unavailable Luh AcharyaC Unavailable + [phone] Kathy Glover MD Unavailable +[phone] Luh Acharya-C Unavailable + [phone] Edward Marlow MD Unavailable +[phone] [facility] Primary Care Provider Jas Bojorquez DO Unavailable +[phone] Haven Buckner CNP Unavailable +[phone] Jenise España MD Unavailable Unavailable Tierra Cancino PA-C Unavailable Luh AcharyaC Primary Care Provider + Luh Acharya-C Unavailable [phone] Tierra CancinoC Unavailable Haven Buckner MUSIC COMPOSER Unavailable +[phone] Acharya Luh Enedina BAUTISTAC Unavailable [phone] BucknerHaven lofton MUSIC COMPOSER Unavailable [phone] Reason for Visit * Reason Onset Date Comments MyChart Communication 01/17/2019 Encounter Details Date Type Department Care Team (Late st Contact Info) Description 01/17/2019 My[facility] Medical Advice [address] [phone] [place] [address] [place] [address] MyChart Communication Social History Tobacco Use Types [...] Telephone Encounter - Marcy Smith RN - 01/20/2019 7:23 AM CDT mychart sent. Dona Smith RN [place] Triage * Telephone Encounter - Renay Barlow RN - 01/17/2019 4:55 PM CDT MyChart Message sent Awaiting response Rneay Barlow RN [place] Triage * Telephone Encounter - Coty Doan RN - 01/17/2019 9:40 AM CDT Mychart note sent to patient. TAYLA Simmons, RN, PHN [facility] Triage ) [phone] documented in this encounter Plan of Treatment Not on file documented as of this encounter Visit Diagnoses Not on filedocumented in this encounter Additional Health Concerns Infection Onset Date Last Indicated Resolved Time Rule Out COVID-19 06/06/2021 06/06/2021 06/06/2021 5:30 PM CDT Rule Out COVID-19 12/19/2021 12/19/2021 12/20/2021 1:02 PM CDT Assessment Noted Time PHQ-9 Depression Total Score: 5 11/22/19 19 7:06 AM SNUFF GRINDER documented as of this encounter Care Teams Electronics Department Manager Relationship Specialty Start Date End Date Kathy Glover MD [address] [place] [address] [phone] PCP - General Family Practice 06/03/15 10/05/[address] 810352 PCP - General 10/06/20 11/20/21 Luh Acharya PA-C [address] [place] [address] [phone] PCP - General Family Medicine 11/21/21 01/02/23 Toma Arguello NP [address] [address] Nurse Practitioner Nurse Practitioner Psych/Mental Health 04/11/17 Kathy Glover MD [address] [place] [address], [place] [address] Assigned PCP 07/25/15 12/20/19 Laura Us MD [address] [place] [address], [place] [address] Gastroenterology 12/20/18 Luh Acharya PA-C [address] [place] [address], [place] [phone] Assigned PCP 12/21/19 01/17/20 Kathy Glover MD [address] [place] [address] Assigned PCP 01/18/20 06/19/20 Luh Acharya, REFUGIO [address] [place] [address], [place] [phone] Assigned PCP 06/20/20 03/31/21 Edward Marlow MD [facility] [place] [address] Assigned Surgical Provider 07/09/20 07/31/20 Jas Bojorquez DO [address] [place] [address], [place] 390352 Assigned PCP 04/01/21 05/21/21 Haven Buckner, MUSIC COMPOSER [address] [place] [address], [place] [address] Assigned PCP 05/22/21 11/26/21 Jenise España MD Assigned Heart and Vascular Provider 07/24/21 11/17/22 Tierra Cancino PA-C [address] [place] [address] Physician Air Battle Manager Urology 11/17/21 Luh Acharya PA-C [address] [place] [address], [place] [address] Assigned PCP 11/27/21 12/31/21 Tierra Cancino PA-C [address] [place] [address] Assigned Surgical Provider 12/11/21 06/08/23 Haven Buckner, NICOLE [address] [place] [address], [place] [address] Assigned PCP 01/01/22 12/22/22 Luh Acharya PA-C [address] [place] [address] Assigned PCP 12/23/22 05/18/23 Haven Buckner, MUSIC COMPOSER [address] [place] [address], [place] [address] Assigned PCP 05/19/23 documented as of this encounter
--- OUTSIDE RECORDS SUMMARY | 2024-01-23 09:26 | XMS_ITS | Encounter Summary ---
Author Name Unknown Organization [place] Address [address] [facility] [place] [address] Care Team Providers Care Manager Enterprise Content Management Name Role Phone Toma Arguello YESICA Unavailable [phone] Laura Us MD Unavailable Luh Acharya-C Unavailable +- [phone] [facility] Primary Care Provider Jas Bojorquez DO Unavailable +[phone] Haven Buckner CNP Unavailable +[phone] Jenise España MD Unavailable Unavailable Tierra Cancino-C Unavailable [phone] Luh Acharya-C Primary Care Provider + Luh Acharya-C Unavailable +- [phone] Tierra Cancino-C Unavailable [phone] Haven Buckner CNP Unavailable +[phone] Luh Acharya-C Unavailable +- [phone] Haven Buckner CNP Unavailable Reason for Visit * Reason Onset Date Comments MyChart Communication 02/21/2021 Encounter Details Date Type Department Care Team (Late st Contact Info) Description 02/21/2021 MyC Medical Advice [address] [phone] Haven Bcukner, SUPERVISOR MOLD YARD [address] [place] [address] MyChart Communication Social History Tobacco Use Types [...] have Coronavirus / COVID-19? No / Unsure 02/24/2021 7:52 AM CDT documented as of this encounter Miscellaneous Notes * Telephone Encounter - Manisha Patel RN - 02/22/2021 1:18 PM CDT Please see my chart message below Please review and advise Thank you Manisha Patel RN, BSN [place] Triage documented in this encounter Plan of Treatment Not on file documented as of this encounter Visit Diagnoses Diagnosis Persistent insomnia- Primary Persistent disorder of initiating or maintaining sleep documented in this encounter Additional Health Concerns Infection Onset Date Last Indicated Resolved Time Rule Out COVID-19 06/06/2021 06/06/2021 06/06/2021 5:30 PM CDT Rule Out COVID-19 12/19/2021 12/19/2021 12/20/2021 1:02 PM CDT Assessment Noted Time PHQ-9 Depression Total Score: 1 07/27/20 20 2:05 PM PARTS ADMINISTRATOR documented as of this encounter Care Teams Manager Enterprise Content Management Relationship Specialty Start Date End Date Clinic - [address] [address] PCP - General 10/06/20 11/20/21 Luh Acharya PA-C [address] [place] [address] PCP - General Family Medicine 11/21/21 01/02/23 Toma Arguello NP [address] [address] Nurse Practitioner Nurse Practitioner Psych/Mental Health 04/11/17 Laura Us MD [address] [address] Gastroenterology 12/20/18 Luh Acharya PA-C [address] [place] [address] Assigned PCP 06/20/20 03/31/21 Jas Bojorquez DO [address] [place] [address] Assigned PCP 04/01/21 05/21/21 Haven Buckner, NICOLE [address] [place] [address] Assigned PCP 05/22/21 11/26/21 Jenise España MD Assigned Heart and Vascular Provider 07/24/21 11/17/22 Tierra Cancino PA-C [address] [place] [address] Physician Bogger Operator Urology 11/17/21 Luh Acharya PA-C [address] [place] [address] Assigned PCP 11/27/21 12/31/21 Tierra Cancino PA-C [address] [place] [address] Assigned Surgical Provider 12/11/21 06/08/23 Haven Buckner, NICOLE [address] [place] [address] Assigned PCP 01/01/22 12/22/22 Luh Acharya PA-C [address] [place] [address] Assigned PCP 12/23/22 05/18/23 Haven Buckner, NICOLE [address] [place] [address] Assigned PCP 05/19/23 documented as of this encounter
--- OUTSIDE RECORDS SUMMARY | 2024-01-23 09:26 | XMS_ITS | Encounter Summary ---
Author Name Unknown Organization [place] Address [address] [facility] [place] [address] Care Team Providers Care Photographic Artist Name Role Phone Kathy Glover MD Primary Care Provider SaundraToma ruiz NP Unavailable [phone] Laura Us MD Unavailable Luh AcharyaC Unavailable + [phone] Kathy Glover MD Unavailable +[phone] Luh AcharyaC Unavailable + [phone] Edward Marlow MD Unavailable [phone] [facility] Primary Care Provider Jas Bojorquez DO Unavailable +[phone] Haven Buckner CNP Unavailable +[phone] Jenise España MD Unavailable Unavailable Tierra Cancino-C Unavailable [phone] Luh AcharyaC Primary Care Provider + Luh Acharya-C Unavailable + [phone] Tierra Cancino-Melissa Unavailable Haven Buckner NICOLE Unavailable +1-- Luh Acharya PA-C Unavailable +[phone] Haven Buckner INSTALLATION TECHNICIAN Unavailable +1- Encounter Details Date Type Department Care Team (Late st Contact Info) Description 01/09/2020 MyC Medical Advice [address] [phone] Amber Marc Social History Tobacco Use Types Packs/Day Years Used Date Smoking Tobacco: Former Cigarettes 1 20 0 03/17/1988 - 03/17/2008 Smokeless Tobacco: Never Alcohol Use Standard Drinks/Week Comments Yes 0 (1 standard drink = 0.6 oz pur e alcohol) 1-2 per week PHQ-2 Answer Date Recorded PHQ-2 Score 2 01/09/2020 Sex and Gender Information Value Date Recorded [...] Assessment Noted Time PHQ-9 Depression Total Score: 3 01/09/20 20 2:35 PM CDT documented as of this encounter Care Teams Photographic Artist Relationship Specialty Start Date End Date Kathy Glover MD [address] [place] [address] [phone] PCP - General Family Practice 06/03/15 10/05/20 Clinic - [address] [phone] PCP - General 10/06/20 11/20/21 Luh Acharya PA-C [address] [place] [address] PCP - General Family Medicine 11/21/21 01/02/23 Toma Arguello NP [address] [address] Nurse Practitioner Nurse Practitioner Psych/Mental Health 04/11/17 Laura Us MD [address] [address] Gastroenterology 12/20/18 Luh Acharya PA-C [address] [place] [address] Assigned PCP 12/21/19 01/17/20 Kathy Glover MD [address] [place] [address] Assigned PCP 01/18/20 06/19/20 Luh Acharya PA-C [address] [place] [address] Assigned PCP 06/20/20 03/31/21 Edward Marlow MD [address] [place] [address] Assigned Surgical Provider 07/09/20 07/31/20 Jas Bojorquez DO [address] [place] [address] Assigned PCP 04/01/21 05/21/21 Haven Buckner, NICOLE [address] [place] [address] Assigned PCP 05/22/21 11/26/21 Jenise España MD Assigned Heart and Vascular Provider 07/24/21 11/17/22 Tierra Cancino PA-C [address] [place] [address] Physician Residency Director Urology 11/17/21 Luh Acharya PA-C [address] [place] [address] Assigned PCP 11/27/21 12/31/21 Tierra Cancino PA-C [address] [place] [address] Assigned Surgical Provider 12/11/21 06/08/23 Haven Buckner CNP [address] [place] [address] Assigned PCP 01/01/22 12/22/22 Luh Acharya PA-C [address] [place] [address] Assigned PCP 12/23/22 05/18/23 Haven Buckner, NICOLE [address] [place] [address] Assigned PCP 05/19/23 documented as of this encounter
--- OUTSIDE RECORDS SUMMARY | 2024-01-23 09:26 | XMS_ITS | Encounter Summary ---
Author Name Unknown Organization [place] Address [address] [facility] [place] [address] Care Team Providers Care Caregivers Non Medical Name Role Phone Toma Arguello YESICA Unavailable [phone] Laura Us MD Unavailable Luh Acharya-C Unavailable +- [phone] [facility] Primary Care Provider Jas Bojorquez DO Unavailable +[phone] Haven Buckner CNP Unavailable +[phone] Jenise España MD Unavailable Unavailable Tierra Cancino-C Unavailable [phone] Luh Acharya-C Primary Care Provider + Luh Acharya-C Unavailable +- [phone] Tierra Cancino-C Unavailable +[phone] Haven Buckner CNP Unavailable +[phone] Luh Acharya-C Unavailable +- [phone] Haven Buckner CNP Unavailable +[phone] Reason for Visit * Reason Onset Date Comments MyChart Communication 12/22/2020 Encounter Details Date Type Department Care Team (Late st Contact Info) Description 12/22/2020 MyC Medical Advice M [address] [phone] Luh Acharya PA-C [address] [place] [address] [phone] MyChart Communication Social History Tobacco Use Types [...] Encounter - Juan Pablo Hinton RN - 12/23/2020 1:18 PM CDT Mychart sent to advise OV/VV Awaiting reply. Juan Pablo Hernandez RN [facility] Triage * Telephone Encounter - Haven Navarro APRN CNP - 12/23/2020 12:57 PM CDT Images from the original note were not included. Would not recommend doubling trazodone without advisement from her PCP given all her other medicaitons. Trazodone and duloxetine can have an interaction and I would not advise her to be on high dose trazodone. Per Luh Acharya's last office notes. Persistent insomnia- managed by [facility] - Dr. Nash Chin. No longer following with neurology. Continue current regimen. - traZODone (DESYREL) 100 MG tablet; Take 1 tablet (100 mg) by mouth At Bedtime - LYRICA 50 MG capsule; Take 3 capsules (150 mg) by mouth At Bedtime Takes 3 tablet at night Please have her continue current 100 mg trazodone as prescribed. Can help her set up virtual or office visit with Luh upon her return to discuss this and possible alternatives. Haven Navarro, STELLA- * Telephone Encounter - Manisha Patel RN - 12/22/2020 10:55 AM CDT 11/18/2020 Please see my chart message below Please review and advise Thank you Manisha Patel RN, BSN [place] Triage documented in this encounter Plan of [...] Total Score: 1 07/27/20 20 2:05 PM VIDEO NETWORK ENGINEER documented as of this encounter Care Teams Caregivers Non Medical Relationship Specialty Start Date End Date Clinic - [address] [address] PCP - General 10/06/20 11/20/21 Luh Acharya PA-C [address] [place] [address] 614842 PCP - General Family Medicine 11/21/21 01/02/23 Toma Arguelol NP [address] [address] Nurse Practitioner Nurse Practitioner Psych/Mental Health 04/11/17 Laura Us MD [address] [address] Gastroenterology 12/20/18 Luh Acharya PA-C [address] [place] [address] Assigned PCP 06/20/20 03/31/21 Jas Bojorquez DO [address] [place] [address] Assigned PCP 04/01/21 05/21/21 Haven Buckner CNP [address] [place] [address] Assigned PCP 05/22/21 11/26/21 Jenise España MD Assigned Heart and Vascular Provider 07/24/21 11/17/22 Tierra Cancino PA-C [address] [place] [address] Physician Surveyor Rod Helper Urology 11/17/21 Luh Acharya PA-C [address] [place] [address] Assigned PCP 11/27/21 12/31/21 Tierra Cancino PA-C [address] [place] [address] Assigned Surgical Provider 12/11/21 06/08/23 Haven Buckner, NICOLE [address] [place] [address] Assigned PCP 01/01/22 12/22/22 Luh Acharya PA-C [address] [place] [address] 108402 Assigned PCP 12/23/22 05/18/23 Haven Buckner, NICOLE [address] [place] [address] Assigned PCP 05/19/23 documented as of this encounter
--- OUTSIDE RECORDS SUMMARY | 2024-01-23 09:26 | XMS_ITS | Encounter Summary ---
Author Name Unknown Organization [place] Address [address] [place] [address] Care Team Providers Care Security Alarm Installer Name Role Phone Kathy Glover MD Primary Care Provider SaundraToma ruiz NP Unavailable [phone] Kathy Glover MD Unavailable +[phone] Laura Us MD Unavailable Luh AcharyaC Unavailable + [phone] Kathy Glover MD Unavailable [phone] Luh Acharya-C Unavailable + [phone] Edward Marlow MD Unavailable [facility] Primary Care Provider Jas Bojorquez DO Unavailable +[phone] Haven Buckner CNP Unavailable +[phone] Jenise España MD Unavailable Unavailable Tierra Cancino PA-C Unavailable [phone] Luh AcharyaC Primary Care Provider + Luh Acharya-C Unavailable Tierra Cancino PA-C Unavailable +[phone] Haven Buckner CNP Unavailable [phone] Luh Acharya PA-C Unavailable +[phone] Haven Buckner CNP Unavailable +[phone] Reason for Visit * Reason Comments Medication Refill Encounter Details Date Type Department Care Team (Late st Contact Info) Description 12/10/2019 [facility] [address] [phone] Luh Acharya PA-C [address] [place] [address] Medication Refill Social History Tobacco Use Types [...] Time PHQ-9 Depression Total Score: 0 07/10/20 10:06 AM CDT documented as of this encounter Care Teams Security Alarm Installer Relationship Specialty Start Date End Date Kathy Glover MD [address] [place] [address] 18968 PCP - General Family Practice 06/03/15 10/05/[address] [address] PCP - General 10/06/20 11/20/21 Luh Acharya PA-C [address] [place] [address] 20723 PCP - General Family Medicine 11/21/21 01/02/23 Toma Arguello NP [address] [address] Nurse Practitioner Nurse Practitioner Psych/Mental Health 04/11/17 Kathy Glover MD [address] [place] [address] 12868 Assigned PCP 07/25/15 12/20/19 Laura Us MD [address] [place] [address]69 Gastroenterology 12/20/18 Luh Acharya PA-C [address] [place] [address] 47929 Assigned PCP 12/21/19 01/17/20 Kathy Glover MD [address] [place] [address] 75956 Assigned PCP 01/18/20 06/19/20 Luh Acharya PA-C [address] [place] [address] 11387 Assigned PCP 06/20/20 03/31/21 Edward Mar[place] [address] Assigned Surgical Provider 07/09/20 07/31/20 Jas Bojorquez DO [address] [place] [address] [phone] Assigned PCP 04/01/21 05/21/21 Haven Buckner, VICE SQUAD POLICE OFFICER [address] [place] [address] 32493 Assigned PCP 05/22/21 11/26/21 Jenise España MD Assigned Heart and Vascular Provider 07/24/21 11/17/22 Tierra Cancino PA-C [address] [place] [address] Physician Sales Account Manager Urology 11/17/21 Luh Acharya PA-C [address] [place] [address] Assigned PCP 11/27/21 12/31/21 Tierra Cancino PA-C [address] [place] [address] Assigned Surgical Provider 12/11/21 06/08/23 Haven Buckner CNP [address] [place] [address] [place] [address] Assigned PCP 01/01/22 12/22/22 Luh Acharya PA-C [address] [place] [address] Assigned PCP 12/23/22 05/18/23 Haven Buckner, VICE SQU[employer] POLICE OFFICER [address] [place] [address] Assigned PCP 05/19/23 documented as of this encounter
--- OUTSIDE RECORDS SUMMARY | 2024-01-23 09:26 | XMS_ITS | Encounter Summary ---
Author Name Unknown Organization [place] Address [address] [facility] [place] [address] Care Team Providers Care Used Car Make Ready Mechanic Name Role Phone Toma Arguello YESICA Unavailable [phone] Laura Us MD Unavailable [facility] Primary Care Provider Jas Bojorquez DO Unavailable +[phone] Haven Buckner DESIZING MACHINE OPERATOR HEAD END Unavailable +[phone] Jenise España MD Unavailable Unavailable Tierra Cancino PA-C Unavailable [phone] Luh Acharya-C Primary Care Provider + Luh Acharya-C Unavailable +- [phone] Tierra Cancino-C Unavailable [phone] Haven Buckner CNP Unavailable +[phone] Luh Acharya-C Unavailable +- [phone] Haven Buckner CNP Unavailable Reason for Visit * Reason Onset Date Comments MyChart Communication 04/14/2021 Encounter Details Date Type Department Care Team (Latest Contact Info) Description 04/14/2021 MyC Medical Advice [address] [phone] Judd Waller Communication Social History Tobacco Use Types Packs/Day [...] documented as of this encounter Care Teams Used Car Make Ready Mechanic Relationship Specialty Start Date End Date [facility] - [address] [phone] PCP - General 10/06/20 11/20/21 Luh Acharya PA-C [address] [place] [address] [phone] PCP - General Family Medicine 11/21/21 01/02/23 Toma Arguello NP [place] [address] [place] [address] Nurse Practitioner Nurse Practitioner Psych/Mental Health 04/11/17 Laura Us MD [address] [address] Gastroenterology 12/20/18 Jas Bojorquez DO [address] [place] [address] Assigned PCP 04/01/21 05/21/21 Haven Buckner, DESIZING MACHINE OPERATOR HEAD END [address] [place] [address] Assigned PCP 05/22/21 11/26/21 Jenise España MD Assigned Heart and Vascular Provider 07/24/21 11/17/22 Tierra Cancino PA-C [address] [place] [address] Physician Collection Team Lead Urology 11/17/21 Luh Acharya PA-C [address] [place] [address] Assigned PCP 11/27/21 12/31/21 Tierra Cancino PA-C [address] [place] [address] Assigned Surgical Provider 12/11/21 06/08/23 Haven Buckner, NICOLE [address] [place] [address] Assigned PCP 01/01/22 12/22/22 Luh Acharya PA-C [address] [place] [address] Assigned PCP 12/23/22 05/18/23 Haven Buckner, NICOLE [address] [place] [address] Assigned PCP 05/19/23 documented as of this encounter
--- OUTSIDE RECORDS SUMMARY | 2024-01-23 09:26 | XMS_ITS | Encounter Summary ---
Author Name Unknown Organization [place] Address [address] [facility] [place] [address] Care Team Providers Care Manager Social Work Name Role Phone Toma Arguello YESICA Unavailable [phone] Laura Us MD Unavailable [facility] Primary Care Provider Haven Buckner CNP Unavailable [phone] Jenise España MD Unavailable Unavailable Tierra Cancino-C Unavailable [phone] Luh Acharya PA-C Primary Care Provider + Luh Acharya PA-C Unavailable +- [phone] Tierra Cancino-Melissa Unavailable [phone] Haven Buckner CNP Unavailable [phone] Luh Acharya PA-C Unavailable + [phone] Haven Buckner CNP Unavailable [phone] Reason for Visit * Reason Comments Medication Refill Encounter Details Date Type Department Care Team (Late st Contact Info) Description 08/30/[address] [phone] Haven Buckner, CRYPTOANALYSIS TEACHER [address] [place] [address] Medication Refill Social History Tobacco Use Types [...] Telephone Encounter - Manisha Patel RN - 09/01/2021 10:07 PM POLISHING WHEEL SETTER Due for an Office visit for further refills, only fill for 30 days Manisha Patel RN, BSN [facility] Triage SHING WHEEL SETTER documented in this encounter Plan of Treatment Not on file documented as of this encounter Visit Diagnoses Diagnosis Essential hypertension with goal blood pressure less than 140/90 documented in this encounter Additional Health Concerns Infection Onset Date Last Indicated Resolved Time Rule Out COVID-19 12/19/2021 12/19/2021 12/20/2021 1:02 PM CDT Assessment Noted Time PHQ-9 Depression Total Score: 2 02/23/20 21 8:02 AM CDT documented as of this encounter Care Teams Manager Social Work Relationship Specialty Start Date End Date Clinic - [facility] [address] 958222 PCP - General 10/06/20 11/20/21 Luh Acharya PA-C [address] [place] [address] 549652 PCP - General Family Medicine 11/21/21 01/02/23 Toma Arguello LAUNDRY OPERATOR [place] [address] [place] [address] Nurse Practitioner Nurse Practitioner Psych/Mental Health 04/11/17 Laura Us MD [place] [address] [place] [address] Gastroenterology 12/20/18 Haven Buckner, CRYPTOANALYSIS TEACHER [address] [place] [address] Assigned PCP 05/22/21 11/26/21 Jenise España MD Assigned Heart and Vascular Provider 07/24/21 11/17/22 Tierra Cancino PA-C [address] [place] [address] Physician Recruitment Assistant Urology 11/17/21 Luh Acharya PA-C [address] [place] [address] Assigned PCP 11/27/21 12/31/21 Tierra Cancino PA-C [address] [place] [address] Assigned Surgical Provider 12/11/21 06/08/23 Haven Buckner, NICOLE [address] [place] [address] Assigned PCP 01/01/22 12/22/22 Luh Acharya PA-C [address] [place] [address] Assigned PCP 12/23/22 05/18/23 Haven Buckner, CRYPTOANALYSIS TEACHER [address] [place] [address] Assigned PCP 05/19/23 documented as of this encounter
--- OUTSIDE RECORDS SUMMARY | 2024-01-23 09:26 | XMS_ITS | Encounter Summary ---
Author Name Unknown Organization [place] Address [address] [place] [address] Care Team Providers Care Residential Case Manager Name Role Phone Kathy lGover MD Primary Care Provider Toma Arguello NP Unavailable [phone] Laura Us MD Unavailable Luh Acharya-C Unavailable + [phone] [facility] Primary Care Provider Jas Bojorquez DO Unavailable [phone] Haven Buckner HEDGE FUND TRADER Unavailable +-[phone] Jenise España MD Unavailable Unavailable Tierra Cancino-C Unavailable [phone] Luh Acharya-C Primary Care Provider + Luh Acharya-C Unavailable + [phone] Tierra Cancino-C Unavailable Haven Buckner HEDGE FUND TRADER Unavailable +-[phone] Luh Acharya-C Unavailable + [phone] Haven Buckner CNP Unavailable [phone] Encounter Details Date Type Department Care Team (Late st Contact Info) Description 09/28/2020 Orders [place] [address] [place] [phone] Diaz Camargo MD [facility] [address] [place] [address] Encounter for screening for other viral diseases Social History Tobacco Use Types Packs/Day Years [...] have Coronavirus / COVID-19? No / Unsure 09/27/2020 9:59 AM HELPER METAL HANGING documented as of this encounter Plan of Treatment Not on file documented as of this encounter Results * Asymptomatic COVID-19 Virus (Coronavirus) by PCR (10/03/2020 1:26 PM HELPER METAL HANGING) COVID-19 Virus PCR to [facility] - Source Nasopharyngeal 10/03/2020 1:26 PM HELPER METAL HANGING [facility] COVID-19 Virus PCR to [facility] - Result Test received-See reflex to IDDL test SARS CoV2 (COVID-19) Virus RT-PCR 10/03/2020 3:28 PM HELPER METAL HANGING [facility], [facility] Specimen from nasopharyngeal structure (specimen) 10/03/2020 1:26 PM HELPER METAL HANGING 10/03/2020 1:27 PM HELPER METAL HANGING Diaz Camargo MD LAB - MICRO GENERAL ORDERABLES [facility] [address] [place] [address], [facility] [address] [place], [place] [address] [phone] documented in this encounter Visit Diagnoses Diagnosis Encounter for screening for other viral diseases documented in this encounter Additional Health Concerns Infection Onset Date Last Indicated Resolved Time Rule Out COVID-19 06/06/2021 06/06/2021 06/06/2021 5:30 PM CDT Rule Out COVID-19 12/19/2021 12/19/2021 12/20/2021 1:02 PM CDT Assessment Noted Time PHQ-9 Depression Total Score: 1 07/27/20 2:05 PM HELPER METAL HANGING documented as of this encounter Care Teams Residential Case Manager Relationship Specialty Start Date End Date Kathy Glover MD [address] [place] [address] [phone] PCP - General Family Practice 06/03/15 10/05/20 Clinic - [address] [phone] PCP - General 10/06/20 11/20/21 Luh Acharya PA-C [address] [place] [address] [phone] PCP - General Family Medicine 11/21/21 01/02/23 Toma Arguello NP [facility] [address] [place] [address] Nurse Practitioner Nurse Practitioner Psych/Mental Health 04/11/17 Laura Us MD [facility] [address] [place] [address] Gastroenterology 12/20/18 Luh Acharya PA-C [address] [place] [address], [place] [address] Assigned PCP 06/20/20 03/31/21 Jas Bojorquez DO [address] [place] [address], [place] [address] Assigned PCP 04/01/21 05/21/21 Haven Buckner, HEDGE FUND TRADER [address] [place] [address], [place] [address] Assigned PCP 05/22/21 11/26/21 Jenise España MD Assigned Heart and Vascular Provider 07/24/21 11/17/22 Tierra Cancino PA-C [address] [place] [address] Physician National Insurance Officer Urology 11/17/21 Luh Acharya PA-C [address] [place] [address] Assigned PCP 11/27/21 12/31/21 Tierra Cancino PA-C [address] [place] [address] Assigned Surgical Provider 12/11/21 06/08/23 Haven Buckner, HEDGE FUND TRADER [address] [place] [address], [place] [address] Assigned PCP 01/01/22 12/22/22 Luh Acharya PA-C [address] [place] [address] Assigned PCP 12/23/22 05/18/23 Haven Buckner, HEDGE FUND TRADER [address] [place] [address] Assigned PCP 05/19/23 documented as of this encounter
--- OUTSIDE RECORDS SUMMARY | 2024-01-23 09:26 | XMS_ITS | Encounter Summary ---
Author Name Unknown Organization [place] Address [address] [facility] [place] [address] Care Team Providers Care Postal Inspector Name Role Phone Kathy Glover MD Primary Care Provider SaundraToma ruiz NP Unavailable [phone] Laura Us MD Unavailable Kathy Glover MD Unavailable [phone] Luh AcharyaC Unavailable + [phone] Edward Marlow MD Unavailable [phone] [facility] Primary Care Provider Jas Bojorquez DO Unavailable +[phone] Haven Buckner CNP Unavailable +-[phone] Jneise España MD Unavailable Unavailable Tierra Cancino-C Unavailable [phone] Luh Acharya PA-C Primary Care Provider + Luh Acharya-C Unavailable + [phone] Tierra Cancino-C Unavailable Haven Buckner CNP Unavailable +1- Luh Acharya PA-C Unavailable +[phone] Haven Buckner CNP Unavailable [phone] Encounter Details Date Type Department Care Team (Late st Contact Info) Description 04/14/2020 MyC Medical Advice [address] [phone] Kathy Glover MD [address] [place] [address] [phone] Social History Tobacco Use Types Packs/Day Years [...] documented as of this encounter Care Teams Postal Inspector Relationship Specialty Start Date End Date Kathy Glover MD [address] [place] [address] [phone] PCP - General Family Practice 06/03/15 10/05/20 Clinic - [address] [address] PCP - General 10/06/20 11/20/21 Luh Acharya PA-C [address] [place] [address] PCP - General Family Medicine 11/21/21 01/02/23 Toma Arguello NP [address] [address] Nurse Practitioner Nurse Practitioner Psych/Mental Health 04/11/17 Laura Us MD [address] [address] Gastroenterology 12/20/18 Kathy Glover MD [address] [place] [address] Assigned PCP 01/18/20 06/19/20 Luh Acharya PA-C [address] [place] [address] Assigned PCP 06/20/20 03/31/21 Edward Marlow MD [address] [place] [address] Assigned Surgical Provider 07/09/20 07/31/20 Jas Bojorquez DO [address] [place] [address] Assigned PCP 04/01/21 05/21/21 Haven Buckner CNP [address] [place] [address], [place] [address] Assigned PCP 05/22/21 11/26/21 Jenise España MD Assigned Heart and Vascular Provider 07/24/21 11/17/22 Tierra Cancino PA-C [address] [place] [address] Physician Armament Repairer Urology 11/17/21 Luh Acharya PA-C [address] [place] [address], [place] [address] Assigned PCP 11/27/21 12/31/21 Tierra Cancino PA-C [address] [place] [address] Assigned Surgical Provider 12/11/21 06/08/23 Haven Buckner CNP [address] [place] [address], [place] [address] Assigned PCP 01/01/22 12/22/22 Luh Acharya PA-C [address] [place] [address], [place] [address] Assigned PCP 12/23/22 05/18/23 Haven Buckner, NICOLE [address] [place] [address], [place] [address] Assigned PCP 05/19/23 documented as of this encounter
--- OUTSIDE RECORDS SUMMARY | 2024-01-23 09:26 | XMS_ITS | Encounter Summary ---
Author Name Unknown [facility] Address [address] [facility] [place] [place] [address] Care Team Providers Care Overhauler Bus Truck Name Role Phone Toma Arguello YESICA Unavailable [phone] Laura Us MD Unavailable [facility] Primary Care Provider Haven Buckner CNP Unavailable +[phone] Jenise España MD Unavailable Unavailable Tierra Cancino-C Unavailable [phone] Luh Acharya PA-C Primary Care Provider + Luh Acharya-C Unavailable +[phone] Tierra Cancino-C Unavailable [phone] Haven Buckner CNP Unavailable +[phone] Luh Acharya PA-C Unavailable +[phone] Haven Buckner CNP Unavailable [phone] Reason for Visit * Reason Comments Medication Refill Encounter Details Date Type Department Care Team (Late st Contact Info) Description 07/20/2021 [facility] [address] [place] [phone] Luh Acharya PA-C [address] [place] [address] Medication Refill Social History Tobacco Use Types [...] have Coronavirus / COVID-19? No / Unsure 07/14/2021 3:21 PM CDT documented as of this encounter Miscellaneous Notes * Telephone Encounter - Manisha Patel RN - 07/23/2021 11:44 PM CDT Refill per RN protocol Manisha Patel RN, BSN [place] Triage documented in this encounter Plan of Treatment Not on file documented as of this encounter Visit Diagnoses Diagnosis Tachycardia Tachycardia, unspecified Essential hypertension Unspecified essential hypertension documented in this encounter Additional Health Concerns Infection Onset Date Last Indicated Resolved Time Rule Out COVID-19 12/19/2021 12/19/2021 12/20/2021 1:02 PM CDT Assessment Noted Time PHQ-9 Depression Total Score: 2 02/23/20 21 8:02 AM CDT documented as of this encounter Care Teams Overhauler Bus Truck Relationship Specialty Start Date End Date Clinic - [facility] [address] [place] [address] PCP - General 10/06/20 11/20/21 Luh Acharya PA-C [address] [place] [address] PCP - General Family Medicine 11/21/21 01/02/23 Toma Arguello CLIENT EXPERIENCE MANAGER [facility] [address] [place] [address] Nurse Practitioner Nurse Practitioner Psych/Mental Health 04/11/17 Laura Us MD [facility] [address] [place] [address] Gastroenterology 12/20/18 Haven Buckner, MATERIALS PLANNING ANALYST [address] [place] [address] Assigned PCP 05/22/21 11/26/21 Jenise España MD Assigned Heart and Vascular Provider 07/24/21 11/17/22 Tierra Cancino PA-C [address] [place] [address] Physician Poultry Offal Icer Urology 11/17/21 Luh Acharya PA-C [address] [place] [address] Assigned PCP 11/27/21 12/31/21 Tierra Cancino PA-C [address] [place] [address] Assigned Surgical Provider 12/11/21 06/08/23 Haven Buckner, NICOLE [address] [place] [address], [place] [address] Assigned PCP 01/01/22 12/22/22 Luh Acharya PA-C [address] [place] [address], [place] [address] Assigned PCP 12/23/22 05/18/23 Haven Buckner, NICOLE [address] [place] [address], [place] [address] Assigned PCP 05/19/23 documented as of this encounter
--- OUTSIDE RECORDS SUMMARY | 2024-01-23 09:26 | XMS_ITS | Encounter Summary ---
Author Name Unknown Organization [place] Address [address] [place] [address] Care Team Providers Care Technical Marketing Engineer Name Role Phone Toma Arguello YESICA Unavailable [phone] Laura Us MD Unavailable [facility] Primary Care Provider Haven Buckner CNP Unavailable [phone] Jenise España MD Unavailable Unavailable Tierra Cancino-C Unavailable [phone] Luh Acharya PA-C Primary Care Provider + Luh Acharya-C Unavailable +- [phone] Tierra Cancino-C Unavailable +[phone] Haven Buckner CNP Unavailable [phone] Luh Acharya PA-C Unavailable + [phone] Haven Buckner CNP Unavailable [phone] Reason for Visit * Reason Onset Date Comments Refill Request 08/26/2021 Encounter Details Date Type Department Care Team (Late st Contact Info) Description [facility]2021 [facility] [address] [place] [phone] Luh Acharya PA-C [address] [place] [address] [phone] Refill Request Social History Tobacco Use Types Packs/Day Years [...] Telephone Encounter - Manisha Patel RN - 08/31/2021 10:35 AM GUEST SERVICES MANAGER Due for an Office visit for further refills, only fill for 30 days aMnisha Patel RN, BSN [facility] [place] Triage T SERVICES MANAGER documented in this encounter Plan of Treatment Not on file documented as of this encounter Visit Diagnoses Diagnosis LAZARO (generalized anxiety disorder) Generalized anxiety disorder Major depressive disorder, recurrent episode, moderate (H) Major depressive disorder, recurrent episode, moderate documented in this encounter Additional Health Concerns Infection Onset Date Last Indicated Resolved Time Rule Out COVID-19 12/19/2021 12/19/2021 12/20/2021 1:02 PM CDT Assessment Noted Time PHQ-9 Depression Total Score: 2 02/23/20 21 8:02 AM CDT documented as of this encounter Care Teams Technical Marketing Engineer Relationship Specialty Start Date End Date Clinic - [facility] [address] [address] PCP - General 10/06/20 11/20/21 Luh Acharya PA-C [address] [place] [address] PCP - General Family Medicine 11/21/21 01/02/23 Toma Arguello NP [place] [place] [address] Nurse Practitioner Nurse Practitioner Psych/Mental Health 04/11/17 Laura Us MD [place] [address] [place], [place] [address] Gastroenterology 12/20/18 Haven Buckner, [employer] [address] [place] [address] Assigned PCP 05/22/21 11/26/21 Jensie España MD Assigned Heart and Vascular Provider 07/24/21 11/17/22 Tierra Cancino PA-C [address] [place] [address] Physician Vendor Management Consultant Urology 11/17/21 Luh Acharya PA-C [address] [place] [address] Assigned PCP 11/27/21 12/31/21 Tierra Cancino PA-C [address] [place] [address] Assigned Surgical Provider 12/11/21 06/08/23 Haven Buckner, [employer] [address] [place] [address] Assigned PCP 01/01/22 12/22/22 Luh Acharya PA-C [address] [place] [address], [place] [address] Assigned PCP 12/23/22 05/18/23 Haven Buckner, NICOLE [address] [place] [address], [place] [address] Assigned PCP 05/19/23 documented as of this encounter
--- OUTSIDE RECORDS SUMMARY | 2024-01-23 09:27 | XMS_ITS | Encounter Summary ---
Author Name Unknown Organization [place] Address [address] [facility] [place] [address] Care Team Providers Care Funeral Home Attendant Name Role Phone Kathy Glover MD Primary Care Provider SaundraToma ruiz NP Unavailable [phone] Kathy Glover MD Unavailable [phone] Kathy Glover MD Unavailable +[phone] Laura Us MD Unavailable Luh AcharyaC Unavailable + [phone] Kathy Glover MD Unavailable +[phone] Luh AcharyaC Unavailable + [phone] Edward Marlow MD Unavailable [phone] [facility] Primary Care Provider Jas Bojorquez DO Unavailable +[phone] Haven Buckner CNP Unavailable +[phone] Jenise España MD Unavailable Unavailable Tierra Cancino-C Unavailable Luh Acharya PA-C Primary Care Provider + Luh Acharya PA-C Unavailable [phone] Tierra Cancino PA-C Unavailable Haven Buckner CNP Unavailable +1--2 Luh Acharya PA-C Unavailable +1- BucknerHaven lofton CNP Unavailable +1-- Encounter Details Date Type Department Care Team (Latest Contact Info) Description 01/02/2017 Historic Results Social History Tobacco Use Types Packs/Day Years Used Date Smoking Tobacco: Former Cigarettes 1 20 Smokeless Tobacco: Never Alcohol Use Standard Drinks/Week Comments Yes 0 (1 standard drink = 0.6 oz pur e alcohol) 1 glass wine daily Sex and Gender Information [...] Assessment Noted Time PHQ-9 Depression Total Score: 9 07/01/20 16 7:21 AM CDT documented as of this encounter Care Teams Funeral Home Attendant Relationship Specialty Start Date End Date Kathy Glover MD [address] [place] [address] [phone] PCP - General Family Practice 06/03/15 10/05/20 Kathy Glover MD [address] [place] [address] [phone] PCP - Assigned PCP 07/25/15 11/19/18 [facility] [address] [place] [address] 16605 PCP - General 10/06/20 11/20/21 Luh Acharya PA-C [address] [place] [address] 04349 PCP - General Family Medicine 11/21/21 01/02/23 Toma Arguello C D REACTOR OPERATOR [address] [address] Nurse Practitioner Nurse Practitioner Psych/Mental Health 04/11/17 Kathy Glover MD [address] [place] [address] 56540 Assigned PCP 07/25/15 12/20/19 Laura Us MD [address] [place] [address] [phone] Gastroenterology 12/20/18 Luh Acharya PA-C [address] [place] [address] 27577 Assigned PCP 12/21/19 01/17/20 Kathy Glover MD [address] [place] [address] 25938 Assigned PCP 01/18/20 06/19/20 Luh Acharya PA-C [address] [place] [address] 05154 Assigned PCP 06/20/20 03/31/21 Edward Marlow MD [address] [place] [address] Assigned Surgical Provider 07/09/20 07/31/20 Jas Bojorquez DO [address] [place] [address] [phone] Assigned PCP 04/01/21 05/21/21 Haven Buckner, FIELD SERVICE TECHNICIAN [address] [place] [address] [phone] Assigned PCP 05/22/21 11/26/21 Jenise España MD Assigned Heart and Vascular Provider 07/24/21 11/17/22 Tierra Cancino PA-C [address] [place] [address] Physician Hand Scraper Urology 11/17/21 Luh Acharya PA-C [address] [place] [address] 03047 Assigned PCP 11/27/21 12/31/21 Tierra Cancino PA-C [address] [place] [address] Assigned Surgical Provider 12/11/21 06/08/23 Haven Buckner, FIELD SERVICE TECHNICIAN [address] [place] [address]24 Assigned PCP 01/01/22 12/22/22 Luh Acharya PA-C [address] [place] [address] Assigned PCP 12/23/22 05/18/23 Haven Buckner, FIELD SERVICE TECHNICIAN [address] [place] [address]89 Assigned PCP 05/19/23 documented as of this encounter
--- OUTSIDE RECORDS SUMMARY | 2024-01-23 09:27 | XMS_ITS | Encounter Summary ---
Author Name Unknown Organization [place] Address [address] [facility] [place] [address] Care Team Providers Care Commercial Leasing Manager Name Role Phone Kathy Glover MD Primary Care Provider SaundraToma ruiz NP Unavailable [phone] Kathy Glover MD Unavailable [phone] Kathy Glover MD Unavailable +[phone] Laura Us MD Unavailable Luh AcharyaC Unavailable + [phone] Kathy Glover MD Unavailable +[phone] Luh AcharyaC Unavailable + [phone] Edward Marlow MD Unavailable [phone] [facility] Primary Care Provider Jas Bojorquez DO Unavailable +[phone] Haven Buckner CNP Unavailable +[phone] Jenise España MD Unavailable Unavailable Tierra Cancino-C Unavailable [phone] Luh Acharya PA-C Primary Care Provider + Luh Acharya PA-C Unavailable [phone] Barak Tierra Man PA-C Unavailable Haven Buckner CNP Unavailable +1--2 Luh Acharya PA-C Unavailable [phone] BucknerHaven lofton CNP Unavailable +1-- Encounter Details Date Type Department Care Team (Late st Contact Info) Description 03/16/2017 MyC Medical Advice [address] [address] Kathy Glover MD [address] [place] [address] Social History Tobacco Use Types Packs/Day Years [...] Assessment Noted Time PHQ-9 Depression Total Score: 22 017 7:05 AM CDT documented as of this encounter Care Teams Commercial Leasing Manager Relationship Specialty Start Date End Date Kathy Glover MD [address] [place] [address] PCP - General Family Practice 06/03/15 10/05/20 Kathy Glover MD [address] [place] [address] [phone] PCP - Assigned PCP 07/25/15 11/19/[address] [phone] PCP - General 10/06/20 11/20/21 Luh Acharya PA-C [address] [place] [address] [phone] PCP - General Family Medicine 11/21/21 01/02/23 Toma Arguello NP [address] [phone] Nurse Practitioner Nurse Practitioner Psych/Mental Health 04/11/17 Kathy Glover MD [address] [place] [address] [phone] Assigned PCP 07/25/15 12/20/19 Laura Us MD [address] [place] [address] 57642 Gastroenterology 12/20/18 Luh Acharya PA-C [address] [place] [address] 60465 Assigned PCP 12/21/19 01/17/20 Kathy Glover MD [address] [place] [address] [phone] Assigned PCP 01/18/20 06/19/20 Luh Acharya PA-C [address] [place] [address] 22610 Assigned PCP 06/20/20 03/31/21 Edward Marlow [place] [address] Assigned Surgical Provider 07/09/20 07/31/20 Jas Bojorquez DO [address] [place] [address] 15174 Assigned PCP 04/01/21 05/21/21 Haven Buckner CNP [address] [place] [address] Assigned PCP 05/22/21 11/26/21 Jenise España MD Assigned Heart and Vascular Provider 07/24/21 11/17/22 Tierra Cancino PA-C [address] [place] [address] Physician Dewatering Filtering Supervisor Urology 11/17/21 Luh Acharya PA-C [address] [place] [address] Assigned PCP 11/27/21 12/31/21 Tierra Cancino PA-C [address] [place] [address] Assigned Surgical Provider 12/11/21 06/08/23 Haven Buckner CNP [address] [place] [address] Assigned PCP 01/01/22 12/22/22 Luh Acharya PA-C [address] [place] [address] 15836 Assigned PCP 12/23/22 05/18/23 Haven Buckner CNP [address] [place] [address] Assigned PCP 05/19/23 documented as of this encounter
--- OUTSIDE RECORDS SUMMARY | 2024-01-23 09:27 | XMS_ITS | Encounter Summary ---
Author Name Unknown Organization [place] Address [address] [place] [address] Care Team Providers Care Manager Card Name Role Phone Kathy Glover MD Primary Care Provider SaundraToma ruiz NP Unavailable [phone] Kathy Glover MD Unavailable [phone] Kathy Glover MD Unavailable +[phone] Laura Us MD Unavailable Luh AcharyaC Unavailable + [phone] Kathy Glover MD Unavailable +[phone] Luh AcharyaC Unavailable + [phone] Edward Marlow MD Unavailable [phone] [facility] Primary Care Provider Jas Bojorquez DO Unavailable +[phone] Haven Buckner CNP Unavailable +[phone] Jenise España MD Unavailable Unavailable Tierra Cancino-C Unavailable [phone] Luh Acharya PA-C Primary Care Provider + AcharyaLuhC Unavailable [phone] Tierra Cancinojose guadalupe BAUTISTAC Unavailable Haven Buckner CNP Unavailable [phone] Karri Acharyakirsty BAUTISTAC Unavailable [phone] BucknerHaven lofton CNP Unavailable [phone] Reason for Visit * Reason Onset Date Comments MyChart Communication 01/18/2017 referrals Encounter Details Date Type Department Care Team (Late st Contact Info) Description 01/18/2017 MyC Medical Advice [address] [address] [place] [address] [place] [address] MyChart Communication (referrals) Social History Tobacco Use Types Packs/Day Years [...] Telephone Encounter - Marcy Smith RN - 01/18/2017 12:44 PM CDT mychart sent with information. Dona Smith RN documented in this encounter Plan of Treatment Not on file documented as of this encounter Visit Diagnoses Not on filedocumented in this encounter Additional Health Concerns Infection Onset Date Last Indicated Resolved Time Rule Out COVID-19 06/06/2021 06/06/2021 06/06/2021 5:30 PM CDT Rule Out COVID-19 12/19/2021 12/19/2021 12/20/2021 1:02 PM CDT Assessment Noted Time PHQ-9 Depression Total Score: 017 7:05 AM CDT documented as of this encounter Care Teams Manager Card Relationship Specialty Start Date End Date Kathy Glover MD [address] [place] [address] PCP - General Family Practice 06/03/15 10/05/20 Kathy Glover MD [address] [place] [address] [phone] PCP - Assigned PCP 07/25/15 11/19/[address] [phone] PCP - General 10/06/20 11/20/21 Luh Acharya PA-C [address] [place] [address] [phone] PCP - General Family Medicine 11/21/21 01/02/23 Toma Arguello NP [address] [address] Nurse Practitioner Nurse Practitioner Psych/Mental Health 04/11/17 Kathy Glover MD [address] [place] [address] 24761 Assigned PCP 07/25/15 12/20/19 Laura Us MD [address] [place] [address] 22451 Gastroenterology 12/20/18 Luh Acharya PA-C [address] [place] [address] [phone] Assigned PCP 12/21/19 01/17/20 Kathy Glover MD [address] [place] [address] 640392 Assigned PCP 01/18/20 06/19/20 Luh Acharya PA-C [address] [place] [address] 614502 Assigned PCP 06/20/20 03/31/21 Edward Marlow MD [address] [place], [place] 140867 Assigned Surgical Provider 07/09/20 07/31/20 Jas Bojorquez DO [address] [place] [address] 347002 Assigned PCP 04/01/21 05/21/21 Haven Bukcner, NICOLE [address] [place] [address] [phone] Assigned PCP 05/22/21 11/26/21 Jenise España MD Assigned Heart and Vascular Provider 07/24/21 11/17/22 Tierra Cancino PA-C [address] [facility] [address] [address] Physician Rounding Machine Operator Urology 11/17/21 Luh Acharya PA-C [address] [place] [place] [address] Assigned PCP 11/27/21 12/31/21 Tierra Cancino PA-C [address] [place] [address] Assigned Surgical Provider 12/11/21 06/08/23 Haven Buckner, CREDIT UNION TELLER [address] [facility] [place] [address] Assigned PCP 01/01/22 12/22/22 Luh Acharya PA-C [address] [facility] [place] [address] Assigned PCP 12/23/22 05/18/23 Haven Buckner, CREDIT UNION TELLER [facility] [place] [place] [address] Assigned PCP 05/19/23 documented as of this encounter
--- OUTSIDE RECORDS SUMMARY | 2024-01-23 09:27 | XMS_ITS | Encounter Summary ---
Author Name Unknown Organization [place] Address [address] [facility] [place] [address] Care Team Providers Care Intermediate Teacher Name Role Phone Kathy Glover MD Primary Care Provider SaundraToma ruiz NP Unavailable [phone] Kathy Glover MD Unavailable [phone] Kathy Glover MD Unavailable +[phone] Laura Us MD Unavailable Luh AcharyaC Unavailable + [phone] Kathy Glover MD Unavailable +[phone] Luh AcharyaC Unavailable + [phone] Edward Marlow MD Unavailable [phone] [facility] Primary Care Provider Jas Bojorquez DO Unavailable [phone] Haven Buckner CNP Unavailable +[phone] Jenise España MD Unavailable Unavailable Tierra Cancino-C Unavailable Luh Acharya PA-C Primary Care Provider + Luh Acharya PA-C Unavailable [phone] Tierra Cancinojose guadalupe HUFF Unavailable [phone] Haven Buckner CNP Unavailable +1--2 Luh Acharya PA-C Unavailable +1- BucknerHaven lofton CNP Unavailable +[phone] Reason for Referral * Diagnostic Imaging MRI - Closed Specialty Diagnoses / Procedures Referred By Contac t Referred To Contact Radiology. Diagnoses Complex cyst of right ovary Procedures MR Pelvis (KEYBOARD INSTRUMENT REPAIRER) wo & w Contrast MR Pelvis (KEYBOARD INSTRUMENT REPAIRER) w Contrast Kathy Glover MD [address] [place] [address] M[address] [place] [address] Referral ID Status Reason Start Date Expiration Date Visits Re quested Visits Authorized [id number] Closed 08/19/2018 08/19/2019 1 1 LITHOGRAPHER Reason for Visit * Reason Onset Date Comments MyChart Communication 08/15/2018 Re: MRI re sults back specialist Encounter Details Date Type Department Care Team (Late st Contact Info) Description 08/15/2018 MyC Medical Advice [address] [place] [phone] Kathy Glover MD [address] [place] [address] MyChart Communication (Re: MRI results bennett... Social History Tobacco Use Types Packs/Day Years Used Date Smoking Tobacco: Former Cigarettes 1 20 Smokeless Tobacco: Never Alcohol Use Standard Drinks/Week Comments Yes 0 (1 standard drink = 0.6 oz pur e alcohol) glass of wine at night Sex and Gender Information Value Date Recorded Sex Assigned at Female 01/18/2019 9:01 AM CDT Gender Identity Female 01/18/2019 9:01 AM CDT Sexual Orientation Straight 01/18/2019 9: 01 AM CDT documented as of this encounter Miscellaneous Notes * Telephone Encounter - Coty Doan RN - 08/19/2018 9:42 AM CST [place] message sent to patient with recommendation below. TAYLA Simmons, RN, PHN [facility] [phone] LITHOGRAPHER * Telephone Encounter - Kathy Glover MD - 08/19/2018 6:19 AM JOB LITHOGRAPHER Possible hemorrhagic right adnexal cysts noted on MRI lumbar spine - radiology recommended MR of pelvis to better discern. Ordered. Please inform patient. LITHOGRAPHER * Telephone Encounter - Coty Doan RN - 08/15/2018 12:56 PM JOB LITHOGRAPHER Forwarded to J. Please review patient's [employer] message and advise. Coty Doan RN, BS, PHN LITHOGRAPHER documented in this encounter Plan of Treatment Not on file documented as of this encounter Results * MR Pelvis (KEYBOARD INSTRUMENT REPAIRER) wo & w Contrast (08/27/2018 8:13 AM JOB LITHOGRAPHER) Anatomical Region Laterality Modality Abdomen/Pelvis, SUBRAD MR BODY, UMP MR BODY, RAD MR Magnetic Resonance Impressions 08/27/2018 4:09 PM JOB LITHOGRAPHER IMPRESSION: 1. Grouping of cysts at the right upper pelvis may arise from the right ovary versus adnexa. Two of these have elevated T1 signal suggesting hemorrhagic cysts while another is a small simple cyst. 2. The uterus is absent. The left ovary is not visualized for assessment. 3. A few scattered colonic diverticula. JAXON STAPLES MD Narrative 08/27/2018 4:09 PM JOB LITHOGRAPHER MR PELVIS (KEYBOARD INSTRUMENT REPAIRER) WITH AND WITHOUT CONTRAST August 27, 2018 8:13 AM HISTORY: Complex cysts near right adnexa noted on MRI lumbar spine. Rule out hemorrhagic/endometriosis. TECHNIQUE: Multiplanar, multiecho MRI was performed using T1, T2, and in- and mdx-al-fzbqm imaging. Pre- and postcontrast T1 images were acquired after the administration of 8 mL Gadavist IV. COMPARISON: CT abdomen and pelvis 04/04/2019. FINDINGS: Uterus is absent. Grouping of cystic structures at the right upper pelvis anterior to the external iliac vasculature noted. Two of these appear to have elevated T1 signal with the largest measuring 2.1 cm series 10 image 20. The second small lesion with elevated T1 signal is 0.7 cm on series 10 image 9. A more simple cystic lesion is identified on series 7 image 13 on the right measuring 1.7 cm. The left ovary is not able to be identified. A few colonic diverticula. No acute inflammatory change. No free pelvic fluid. No evidence for lymph node enlargement. Spine surgical changes. Procedure Note Jaxon Staples MD - 08/27/2018 MR PELVIS (KEYBOARD INSTRUMENT REPAIRER) WITH AND WITHOUT CONTRAST August 27, 2018 8:13 AM HISTORY: Complex cysts near right adnexa noted on MRI lumbar spine. Rule out hemorrhagic/endometriosis. TECHNIQUE: Multiplanar, multiecho MRI was performed using T1, T2, and in- and ewj-jq-ytzes imaging. Pre- and postcontrast T1 images were acquired after the administration of 8 mL Gadavist IV. COMPARISON: CT abdomen and pelvis 04/04/2019. FINDINGS: Uterus is absent. Grouping of cystic structures at the right upper pelvis anterior to the external iliac vasculature noted. Two of these appear to have elevated T1 signal with the largest measuring 2.1 cm series 10 image 20. The second small lesion with elevated T1 signal is 0.7 cm on series 10 image 9. A more simple cystic lesion is identified on series 7 image 13 on the right measuring 1.7 cm. The left ovary is not able to be identified. A few colonic diverticula. No acute inflammatory change. No free pelvic fluid. No evidence for lymph node enlargement. Spine surgical changes. IMPRESSION: 1. Grouping of cysts at the right upper pelvis may arise from the right ovary versus adnexa. Two of these have elevated T1 signal suggesting hemorrhagic cysts while another is a small simple cyst. 2. The uterus is absent. The left ovary is not visualized for assessment. 3. A few scattered colonic diverticula. JAXON STAPLES MD Kathy Glover MD IMG MRI ORDERAB LES documented in this encounter Visit Diagnoses Diagnosis Complex cysts of right ovary /adnexa - ? endometriosis vs. other- Primary Complex cysts of right ovary /adnexa - ? endometriosis vs. other documented in this encounter Additional Health Concerns Infection Onset Date Last Indicated Resolved Time Rule Out COVID-19 06/06/2021 06/06/2021 06/06/2021 5:30 PM CDT Rule Out COVID-19 12/19/2021 12/19/2021 12/20/2021 1:02 PM CDT Assessment Noted Time PHQ-9 Depression Total Score: 11 07/11/ 018 3:34 PM CDT documented as of this encounter Care Teams Intermediate Teacher Relationship Specialty Start Date End Date Kathy Glover MD [address] [place] [address] [phone] PCP - General Family Practice 06/03/15 10/05/20 Kathy Glover MD [address] [place] [address] [phone] PCP - Assigned PCP 07/25/15 11/19/[address] 155892 PCP - General 10/06/20 11/20/21 Luh Acharya PA-C [address] [place] [address] [phone] PCP - General Family Medicine 11/21/21 01/02/23 Toma Arguello NP [address] [address] Nurse Practitioner Nurse Practitioner Psych/Mental Health 04/11/17 Kathy Glover MD [address] [place] [address] Assigned PCP 07/25/15 12/20/19 Laura Us MD [address] [place] [address] Gastroenterology 12/20/18 Luh Acharya PA-C [address] [place] [address] 91605 Assigned PCP 12/21/19 01/17/20 Kathy Glover MD [address] [place] [address] Assigned PCP 01/18/20 06/19/20 Luh Acharya PA-C [address] [place] [address] Assigned PCP 06/20/20 03/31/21 Edward Marlow MD [facility] [place] [address] Assigned Surgical Provider 07/09/20 07/31/20 Jas Bojorquez DO [address] [place] [address] Assigned PCP 04/01/21 05/21/21 Haven Buckner, IP LITIGATION PARALEGAL [address] [place] [address], [place] [address] Assigned PCP 05/22/21 11/26/21 Jenise España MD Assigned Heart and Vascular Provider 07/24/21 11/17/22 Tierra Cancino PA-C [address] [place] [address] Physician Solar Technician Urology 11/17/21 Luh Acharya PA-C [address] [place] [address] Assigned PCP 11/27/21 12/31/21 Tierra Cancino PA-C [address] [place] [address] Assigned Surgical Provider 12/11/21 06/08/23 Haven Buckner CNP [address] [place] [address] Assigned PCP 01/01/22 12/22/22 Luh Acharya PA-C [address] [place] [address] 147[address] Assigned PCP 12/23/22 05/18/23 Haven Buckner CNP [address] [place] [address] Assigned PCP 05/19/23 documented as of this encounter
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
--- OUTSIDE RECORDS SUMMARY | 2024-01-23 09:27 | XMS_ITS | Encounter Summary ---
Author Name Unknown Organization [place] Address [address] [facility] [place] [address] Care Team Providers Care Accounting Technician Name Role Phone Kathy Glover MD Primary Care Provider SaundraToma ruiz NP Unavailable [phone] Kathy Glover MD Unavailable +[phone] Kathy Glover MD Unavailable +[phone] Laura Us MD Unavailable Luh AcharyaC Unavailable + [phone] Kathy Glover MD Unavailable +[phone] Luh AcharyaC Unavailable + [phone] Edward Marlow MD Unavailable [phone] [facility] Primary Care Provider Jas Bojorquez DO Unavailable +[phone] Haven Buckner CNP Unavailable +[phone] Jenise España MD Unavailable Unavailable Tierra Cancino-C Unavailable Luh Acharya PA-C Primary Care Provider + Luh AcharyaC Unavailable +[phone] Shaniamando Tierra Magda HUFF Unavailable +[phone] BucknerHaven lofton CNP Unavailable +1--2 Luh AcharyaC Unavailable +1- BucknerHaven lofton CNP Unavailable +[phone] Reason for Visit * Reason Comments Medication Refill Encounter Details Date Type Department Care Team (Late st Contact Info) Description 06/27/2018 Refill [facility] & [facility] [address] [facility] [address] [place] [address] [place] [address] [place] [address] Medication Refill Social History Tobacco Use Types Packs/Day Years Used Date Smoking Tobacco: Former Cigarettes 1 20 Smokeless Tobacco: Never Alcohol Use Standard Drinks/Week Comments No 0 (1 standard drink = 0.6 oz pur e alcohol) Sex and Gender Information Value Date Recorded [...] Assessment Noted Time PHQ-9 Depression Total Score: 16 018 7:37 AM CDT documented as of this encounter Care Teams Accounting Technician Relationship Specialty [place] [address] [place] [address] [phone] PCP - General Family Practice 06/03/15 10/05/20 Kathy Glover MD [address] [place] [address] PCP - Assigned PCP 07/25/15 11/19/[address] [phone] PCP - General 10/06/20 11/20/21 Luh Acharya PA-C [address] [place] [address] PCP - General Family Medicine 11/21/21 01/02/23 Toma Arguello NP [address] [address] Nurse Practitioner Nurse Practitioner Psych/Mental Health 04/11/17 Kathy Glover MD [address] [place] [address] Assigned PCP 07/25/15 12/20/19 Laura Us MD [address] [place] [address] Gastroenterology 12/20/18 Luh Acharya PA-C [address] [place] [address] Assigned PCP 12/21/19 01/17/20 Kathy Glover MD [address] [place] [address] Assigned PCP 01/18/20 06/19/20 Luh Acharya PA-C [address] [place] [address] Assigned PCP 06/20/20 03/31/21 Edward Marlow [place] [address] Assigned Surgical Provider 07/09/20 07/31/20 Jas Bojorquez DO [address] [place] [address] Assigned PCP 04/01/21 05/21/21 Haven Buckner CNP [address] [place] [address] Assigned PCP 05/22/21 11/26/21 Jenise España MD Assigned Heart and Vascular Provider 07/24/21 11/17/22 Tierra Cancino PA-C [address] [place] [address] Physician Valve Setter Urology 11/17/21 Luh Acharya PA-C [address] [place] [address] Assigned PCP 11/27/21 12/31/21 Tierra Cancino PA-C [address] [place] [address] Assigned Surgical Provider 12/11/21 06/08/23 Haven Buckner, NICOLE [address] [place] [address] Assigned PCP 01/01/22 12/22/22 Luh Acharya PA-C [address] [place] [address] Assigned PCP 12/23/22 05/18/23 Haven Buckner, NICOLE [address] [place] [address] Assigned PCP 05/19/23 documented as of this encounter
--- OUTSIDE RECORDS SUMMARY | 2024-01-23 09:27 | XMS_ITS | Encounter Summary ---
Author Name Unknown Organization [place] Address [address] [place] [address] Care Team Providers Care Inserting Press Operator Name Role Phone Kathy Glover MD Primary Care Provider SaundraToma ruiz NP Unavailable [phone] Kathy Glover MD Unavailable +[phone] Kathy Glover MD Unavailable +[phone] Laura Us MD Unavailable Luh AcharyaC Unavailable + [phone] Kathy Glover MD Unavailable +[phone] Luh AcharyaC Unavailable + [phone] Edward Marlow MD Unavailable [phone] [facility] Primary Care Provider Jas Bojorquez DO Unavailable +[phone] Haven Buckner CNP Unavailable +[phone] Jenise España MD Unavailable Unavailable Tierra Cancino-C Unavailable Luh Acharya PA-C Primary Care Provider + Luh Acharya PA-C Unavailable Shaniamando Tierra Magdajose guadalupe HUFF Unavailable BucknerHaven lofton CNP Unavailable [phone] Luh Acharya PA-C Unavailable [phone] BucknerHaven lofton CNP Unavailable +[phone] Reason for Visit * Reason Comments Medication Refill Gabapentin Encounter Details Date Type Department Care Team (Late st Contact Info) Description 03/05/[address] [address] [place] [address] [place] [address] Medication Refill (Gabapentin) Social History Tobacco Use Types Packs/Day Years [...] encounter Miscellaneous Notes * Telephone Encounter - Gracie Gipson CMA - 03/05/2017 2:13 PM CDT Controlled Substance Refill Request for Gabapentin Problem List Complete: Yes Last Written Prescription Date: 02/07/2017 Last Fill Quantity: 90, # refills: 0 Last Office Visit with [facility] primary care provider: 02/22/17 (evisit) 01/05/17 (in- office visit) Clinic visit frequency required: Q 6 months Future Office visit: Controlled substance agreement on file: Yes: Date 01/05/17. Processing: Fax Rx to [facility] pharmacy SUPERVISOR BUFFING AND PASTING checked in past 6 months? No, route to KARMEN Gipson CMA documented in this encounter Plan of Treatment Not on file documented as of this encounter Visit Diagnoses Diagnosis Other chronic pain documented in this encounter Additional Health Concerns Infection Onset Date Last Indicated Resolved Time Rule Out COVID-19 06/06/2021 06/06/2021 06/06/2021 5:30 PM CDT Rule Out COVID-19 12/19/2021 12/19/2021 12/20/2021 1:02 PM CDT Assessment Noted Time PHQ-9 Depression Total Score: 017 7:05 AM CDT documented as of this encounter Care Teams Inserting Press Operator Relationship Specialty Start Date End Date Kathy Glover MD [address] [place] [address] 935702 PCP - General Family Practice 06/03/15 10/05/20 Kathy Glover MD [address] [place] [address] 805172 PCP - Assigned PCP 07/25/15 11/19/[address] 942182 PCP - General 10/06/20 11/20/21 Luh Acharya PA-C [address] [place] [address] 729862 PCP - General Family Medicine 11/21/21 01/02/23 Toma Arguello NP [address] [address] Nurse Practitioner Nurse Practitioner Psych/Mental Health 04/11/17 Kathy Glover MD [address] [place] [address], [place] [address] Assigned PCP 07/25/15 12/20/19 Laura Us MD [address] [place] [address], [place] [address] Gastroenterology 12/20/18 Luh Acharya PA-C [address] [place] [address], [place] [address] Assigned PCP 12/21/19 01/17/20 Kathy Glover MD [address] [place] [address], [place] [address] Assigned PCP 01/18/20 06/19/20 Luh Acharya PA-C [address] [place] [address], [place] [address] Assigned PCP 06/20/20 03/31/21 [place] [address] Assigned Surgical Provider 07/09/20 07/31/20 Jas Bojorquez DO [address] [place] [address], [place] [address] Assigned PCP 04/01/21 05/21/21 Haven Buckner, SALES ASSISTANT DISPLAYS [address] [place] [address], [place] [address] Assigned PCP 05/22/21 11/26/21 Jenise España MD Assigned Heart and Vascular Provider 07/24/21 11/17/22 Tierra Cancino PA-C [address] [place] [address] Physician Quill Stripper Urology 11/17/21 Luh Acharya PA-C [address] [place] [address] Assigned PCP 11/27/21 12/31/21 Tierra Cancino PA-C [address] [place] [address] Assigned Surgical Provider 12/11/21 06/08/23 Haven Buckner CNP [address] [place] [address] Assigned PCP 01/01/22 12/22/22 Luh Acharya PA-C [address] [place] [address] Assigned PCP 12/23/22 05/18/23 Haven Buckner CNP [address] [place] [address] Assigned PCP 05/19/23 documented as of this encounter
--- OUTSIDE RECORDS SUMMARY | 2024-01-23 09:27 | XMS_ITS | Encounter Summary ---
Author Name Unknown Organization [place] Address [address] [facility] [place] [address] Care Team Providers Care Behaviorist Name Role Phone Kathy Glover MD Primary Care Provider SaundraToma ruiz NP Unavailable [phone] Kathy Glover MD Unavailable +[phone] Kathy Glover MD Unavailable +[phone] Laura Us MD Unavailable Luh AcharyaC Unavailable + [phone] Kathy Glover MD Unavailable +[phone] Luh AcharyaC Unavailable + [phone] Edward Marlow MD Unavailable [phone] [facility] Primary Care Provider Jas Bojorquez DO Unavailable +[phone] Haven Buckner CNP Unavailable +[phone] Jenise España MD Unavailable Unavailable Tierra Cancino-C Unavailable [phone] Luh Acharya PA-C Primary Care Provider + Luh AcharyaC Unavailable Barak Tierra BAUTISTAC Unavailable Haven Buckner CNP Unavailable +[phone] Luh AcharyaC Unavailable [phone] BucknerHaven lofton CNP Unavailable [phone] Reason for Visit * Reason Onset Date Comments Call To Schedule Appointment 07/29/2018 Lef t message to schedule DEXA Encounter Details Date Type Department Care Team (Late st Contact Info) Description 07/29/[address] [place] [address] Kathy Glover MD [address] [place] [address] Call To Schedule Appointment (Left message to schedule DEXA) Social History Tobacco Use Types Packs/Day Years [...] encounter Miscellaneous Notes * Telephone Encounter - Aminah Montero - 07/29/2018 4:25 PM CST Left message to schedule DEXA 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 ROD MECHANIC documented in this encounter Plan of Treatment Not on file documented as of this encounter Visit Diagnoses Not on filedocumented in this encounter Additional Health Concerns Infection Onset Date Last Indicated Resolved Time Rule Out COVID-19 06/06/2021 06/06/2021 06/06/2021 5:30 PM CDT Rule Out COVID-19 12/19/2021 12/19/2021 12/20/2021 1:02 PM CDT Assessment Noted Time PHQ-9 Depression Total Score: 11 018 3:34 PM CDT documented as of this encounter Care Teams Behaviorist Relationship Specialty Start Date End Date Kathy Glover MD [address] [place] [address] PCP - General Family Practice 06/03/15 10/05/20 Kathy Glover MD [address] [place] [address] PCP - Assigned PCP 07/25/15 11/19/[address] [address] PCP - General 10/06/20 11/20/21 Luh Acharya PA-C [address] [place] [address] 423752 PCP - General Family Medicine 11/21/21 01/02/23 Toma Arguello NP [address] [phone] Nurse Practitioner Nurse Practitioner Psych/Mental Health 04/11/17 Kathy Glover MD [address] [place] [address] Assigned PCP 07/25/15 12/20/19 Laura Us MD [address] [place] [address] Gastroenterology 12/20/18 Luh Acharya PA-C [address] [place] [address] Assigned PCP 12/21/19 01/17/20 Kathy Glover MD [address] [place] [address] 033542 Assigned PCP 01/18/20 06/19/20 Luh Acharya PA-C [address] [place] [address] 897362 Assigned PCP 06/20/20 03/31/21 Edward Marlow MD [address] [place] [address] Assigned Surgical Provider 07/09/20 07/31/20 Jas Bojorquez DO [address] [place] [address] 972252 Assigned PCP 04/01/21 05/21/21 Haven Buckner, NICOLE [address] [place] [address] 125442 Assigned PCP 05/22/21 11/26/21 Jenise España MD Assigned Heart and Vascular Provider 07/24/21 11/17/22 Tierra Cancino PA-C [address] [facility] [place] [address] Physician Assistant Corporate Secretary Urology 11/17/21 Luh Acharya PA-C [address] [place] [address], [place] [address] Assigned PCP 11/27/21 12/31/21 Tierra Cancino PA-C [address] [place] [address] Assigned Surgical Provider 12/11/21 06/08/23 Haven Buckner, EGG CRATER [address] [place] [address], [place] [address] Assigned PCP 01/01/22 12/22/22 Luh Acharya PA-C [address] [place] [address], [place] [address] Assigned PCP 12/23/22 05/18/23 Haven Buckner, EGG CRATER [address] [place] [address], [place] [address] Assigned PCP 05/19/23 documented as of this encounter
--- OUTSIDE RECORDS SUMMARY | 2024-01-23 09:27 | XMS_ITS | Encounter Summary ---
Author Name Unknown Organization [place] Address [address] [place] [address] Care Team Providers Care Associate Of Science In Nursing Name Role Phone Kathy Glover MD Primary Care Provider SaundraToma ruiz NP Unavailable Kathy Glover MD Unavailable [phone] Kathy Glover MD Unavailable +[phone] Laura Us MD Unavailable Luh AcharyaC Unavailable + [phone] Kathy Glover MD Unavailable +[phone] Luh AcharyaC Unavailable + [phone] Edward Marlow MD Unavailable [phone] [facility] Primary Care Provider Jas Bojorquez DO Unavailable +[phone] Haven Buckner CNP Unavailable +[phone] Jenise España MD Unavailable Unavailable Tierra Cancino-C Unavailable Luh Acharya PA-C Primary Care Provider + Luh Acharya PA-C Unavailable +[phone] Tierra Cancino PA-C Unavailable +[phone] Haven Buckner CNP Unavailable +1--2 Luh Acharya PA-C Unavailable +1- BucknerHaven lofton CNP Unavailable +1--2 Encounter Details Date Type Department Care Team (Late st Contact Info) Description 01/11/2017 Records - [facility] CONVERSION Scan, Non-Provider Social History Tobacco Use Types Packs/Day Years [...] documented as of this encounter Care Teams Associate Of Science In Nursing Relationship Specialty Start Date End Date Kathy Glover MD [address] [place] [address] 240432 PCP - General Family Practice 06/03/15 10/05/20 Kathy Glover MD [address] [place] [address] PCP - Assigned PCP 07/25/15 11/19/[address] [address] PCP - General 10/06/20 11/20/21 Luh Acharya PA-C [address] [place] [address] PCP - General Family Medicine 11/21/21 01/02/23 Toma Arguello STOCK SUPERVISOR [address] [address] Nurse Practitioner Nurse Practitioner Psych/Mental Health 04/11/17 Kathy Glover MD [address] [place] [address] Assigned PCP 07/25/15 12/20/19 Laura Us MD [address] [place] [address] [phone] Gastroenterology 12/20/18 Luh Acharya PA-C [address] [place] [address] Assigned PCP 12/21/19 01/17/20 Kathy Glover MD [address] [place] [address] 76876 Assigned PCP 01/18/20 06/19/20 Luh Acharya PA-C [address] [place] [address] 19369 Assigned PCP 06/20/20 03/31/21 Edward Marlow [place] [address] Assigned Surgical Provider 07/09/20 07/31/20 Jas Bojorquez DO [address] [place] [address] 533712 Assigned PCP 04/01/21 05/21/21 Haven Buckner, SENIOR MASTER SCHEDULER [address] [place] [address] 461732 Assigned PCP 05/22/21 11/26/21 Jenise España MD Assigned Heart and Vascular Provider 07/24/21 11/17/22 Tierra Cancino PA-C [address] [place] [address] Physician Mower Operator Urology 11/17/21 Luh Acharya PA-C [address] [place] [address] Assigned PCP 11/27/21 12/31/21 Tierra Cancino PA-C [address] [place] [address] Assigned Surgical Provider 12/11/21 06/08/23 Haven Buckner, SENIOR MASTER SCHEDULER [address] [place] [address] Assigned PCP 01/01/22 12/22/22 Luh Acharya PA-C [address] [place] [address] Assigned PCP 12/23/22 05/18/23 Haven Buckner, NICOLE [address] [place] [address] Assigned PCP 05/19/23 documented as of this encounter
--- OUTSIDE RECORDS SUMMARY | 2024-01-23 09:27 | XMS_ITS | Encounter Summary ---
Author Name Unknown Organization [place] Address [address] [facility] [place] [address] Care Team Providers Care Weigher Bulker Name Role Phone Kathy Glover MD Primary Care Provider SaundraToma ruiz NP Unavailable [phone] Kathy Glover MD Unavailable [phone] Kathy Glover MD Unavailable [phone] Laura Us MD Unavailable Luh AcharyaC Unavailable + [phone] Kathy Glover MD Unavailable +[phone] Luh AcharyaC Unavailable + [phone] Edward Marlow MD Unavailable [phone] [facility] Primary Care Provider Jas Bojorquez DO Unavailable [phone] Haven Buckner CNP Unavailable +[phone] Jenise España MD Unavailable Unavailable Tierra Cancino-C Unavailable [phone] Luh Acharya PA-C Primary Care Provider + Luh AcharyaC Unavailable [phone] Tierra Cancinovandana BAUTISTAC Unavailable Haven Buckner CNP Unavailable [phone] Acharya Luhkirsty BAUTISTAC Unavailable [phone] BucknerHaven lofton CNP Unavailable [phone] Reason for Visit * Reason Onset Date Comments MyChart Communication 02/15/2017 migraine t reatments Encounter Details Date Type Department Care Team (Late st Contact Info) Description 02/15/2017 MyC Medical Advice [address] [address] [place] [address] [place] [address] MyChart Communication (migraine treatments) Social History Tobacco Use Types Packs/Day Years [...] Telephone Encounter - Coty Doan RN - 02/26/2017 8:53 AM CDT Mychart reply sent to patient with PCP recommendations. TAYLA Simmons, RN, N [place] Triage * Telephone Encounter - Kathy Glover MD - 02/23/2017 5:43 PM CDT midrin is no longer being manufactured and is off the market , per our pharmacist. Other option besides the hydrocodone/apap would be fioricet with codeine . Please offer that to pt. * Telephone Encounter - Coty Doan RN - 02/21/2017 10:04 AM CDT RN spoke with patient and advised her of PCP recommendations below. Script walked to [facility]. Patient asked if appeal letter had been written for her Midrin. I see that Midrin PA was denied on 01/17/2017. I do not see an appeal letter in chart so unsure of status. Will route to . TAYLA Simmons, RN, [place] Triage * Telephone Encounter - Marcy Smith RN - 02/21/2017 8:28 AM CDT Received signed script. Attempt #1 to call pt. Marcy Smith contacted Yenni on 02/21/17 and left a message. If patient calls back please contact RN team. Put script on [facility] desk incase pt calls back. Dona Smith RN * Telephone Encounter - Marcy Smith RN - 02/21/2017 7:55 AM CDT Prescription put on [facility] desk for signature to then give to triage to alert pt of below. Dona Smith RN * Telephone Encounter - Kathy Glover MD - 02/21/2017 12:20 AM CDT Done for #20 tabs for severe pain - try to just take 1/2 tab for migraines, if needed. rx at [facility], please bring to me later this am when back in clinic and I'll sign. rx needs to bi picked up or walked over to our pharmacy. Await results of referral from neurology. * Telephone Encounter - Coty Doan RN - 02/16/2017 3:28 PM CDT Please review patient's mychart message. TAYLA Simmons, RN, PHN [place] Triage * Telephone Encounter - Coty Doan RN - 02/16/2017 2:40 PM CDT Mychart note sent to patient with provider recommendations below. TAYLA Simmons, RN, PHN [place] Triage * Telephone Encounter - Kathy Glover MD - 02/16/2017 2:29 PM CDT ? Is pt doing the postconcussion program either through [facility] or via [facility] concussion cafeteria aide? Would highly recommend the [facility] program. If pt desires to do medical marijuana, unfortunately, we cannot prescribe this , nor can we certifyfor it. Pt needs to find an authorized certifying provider and dispensary on her own. Sorry! Is pt out of midrin and/or hydrocodone for severe pain? * Telephone Encounter - Marcy Smith RN - 02/15/2017 4:09 PM CDT Routing to PCP for further review/recommendations/orders. Dona Smith RN documented in this encounter Plan of Treatment Not on file documented as of this encounter Visit Diagnoses Diagnosis Chronic pain syndrome-Chronic low back pain - CSA - 06/03/2015 - #30 norco /month -see q6 month med check appointments Chronic pain syndrome Status post lumbar spinal fusion Arthrodesis status documented in this encounter Additional Health Concerns Infection Onset Date Last Indicated Resolved Time Rule Out COVID-19 06/06/2021 06/06/2021 06/06/2021 5:30 PM CDT Rule Out COVID-19 12/19/2021 12/19/2021 12/20/2021 1:02 PM CDT Assessment Noted Time PHQ-9 Depression Total Score: 017 7:05 AM CDT documented as of this encounter Care Teams Weigher Bulker Relationship Specialty Start Date End Date Kathy Glover MD [address] [place] [address] PCP - General Family Practice 06/03/15 10/05/20 Kathy Glover MD [address] [place] [address] [id number] PCP - Assigned PCP 07/25/15 11/19/[address] 341102 PCP - General 10/06/20 11/20/21 Luh Acharya PA-C [address] [place] [address] [phone] PCP - General Family Medicine 11/21/21 01/02/23 Toma Arguello NP [address] [address] Nurse Practitioner Nurse Practitioner Psych/Mental Health 04/11/17 Kathy Glover MD [address] [place] [address] Assigned PCP 07/25/15 12/20/19 Laura Us MD [address] [place] [address] [id number] Gastroenterology 12/20/18 Luh Acharya PA-C [address] [place] [address] [phone] Assigned PCP 12/21/19 01/17/20 Kathy Glover MD [address] [place] [address] 146802 Assigned PCP 01/18/20 06/19/20 Luh Acharya PA-C [address] [place] [address] [phone] Assigned PCP 06/20/20 03/31/21 Edward [place] [address] Assigned Surgical Provider 07/09/20 07/31/20 Jas Bojorquez DO [address] [place] [address] [id number] Assigned PCP 04/01/21 05/21/21 Haven Buckner, LOGISTICS PLANNER [address] [place] [address] 395672 Assigned PCP 05/22/21 11/26/21 Jenise España MD Assigned Heart and Vascular Provider 07/24/21 11/17/22 Tierra Cancino PA-C [address] [place] [address] Physician Management Lead Urology 11/17/21 Luh Acharya PA-C [address] [place] [address], [place] [address] Assigned PCP 11/27/21 12/31/21 Tierra Cancino PA-C [address] [place] [address] Assigned Surgical Provider 12/11/21 06/08/23 Haven Buckner, LOGISTICS PLANNER [address] [place] [address] Assigned PCP 01/01/22 12/22/22 Luh Acharya PA-C [address] [place] [address], [place] [address] Assigned PCP 12/23/22 05/18/23 Haven Buckner, LOGISTICS PLANNER [address] [place] [address] Assigned PCP 05/19/23 documented as of this encounter
--- OUTSIDE RECORDS SUMMARY | 2024-01-23 09:27 | XMS_ITS | Encounter Summary ---
Author Name Unknown Organization [place] Address [address] [facility] [place] [address] Care Team Providers Care Secretary Name Role Phone Kathy Glover MD Primary Care Provider SaundraToma ruiz NP Unavailable [phone] Kathy Glover MD Unavailable [phone] Kathy Glover MD Unavailable [phone] Laura Us MD Unavailable Luh AcharyaC Unavailable + [phone] Kathy Glover MD Unavailable +[phone] Luh AcharyaC Unavailable + [phone] Edward Marlow MD Unavailable [phone] [facility] Primary Care Provider Jas Bojorquez DO Unavailable [phone] Haven Buckner CNP Unavailable [phone] Jenise España MD Unavailable Unavailable Tierra Cancino-C Unavailable Luh Acharya PA-C Primary Care Provider + Luh Acharya-C Unavailable Tierra Cancinovonnvandana DUMONT-C Unavailable [phone] Haven Buckner CNP Unavailable +[phone] Luh Acharya-C Unavailable [phone] BucknerHaven lofton CNP Unavailable [phone] Reason for Visit * Reason Onset Date Comments Refill Request 04/18/2018 topiramate (TOPA MAX) 50 MG tablet Encounter Details Date Type Department Care Team (Late st Contact Info) Description 04/18/2018 Refill [facility] [address] [place] [address] [place] [address] [place] [address] Refill Request (topiramate (TOPAMAX) 50 MG tablet) Social History Tobacco Use Types Packs/Day Years [...] encounter Miscellaneous Notes * Telephone Encounter - Kathy Glover MD - 04/25/2018 12:49 PM CDT Wt Readings from Last 5 Encounters: 04/25/18 178 lb 8 oz (81 kg) 01/17/18 173 lb (78.5 kg) 12/05/17 178 lb 14.4 oz (81.1 kg) 11/02/17 176 lb (79.8 kg) 10/09/17 181 lb (82.1 kg) * Telephone Encounter - Marcy Smith RN - 04/25/2018 8:12 AM CDT Pt seen for appt this am. See note that was forwarded from weight check today. Dona Smith RN [place] Triage * Telephone Encounter - Giovanna Casey - 04/24/2018 3:24 PM CDT Left non-detailed message for patient to call back. Please schedule follow up when patient calls back. (see previous notes for details) Giovanna Casey Security Systems Administrator * Telephone Encounter - Tiffanie Darby RN - 04/23/2018 10:58 AM CDT Giovanna, can you find an appointment for her? Franca Darby RN- Triage [employer] * Telephone Encounter - Kathy Glover MD - 04/19/2018 5:29 PM CDT Nope this is from - for weight loss and migraines. Wt Readings from Last 5 Encounters: 01/17/18 173 lb (78.5 kg) 12/05/17 178 lb 14.4 oz (81.1 kg) 11/02/17 176 lb (79.8 kg) 10/09/17 181 lb (82.1 kg) 10/01/17 179 lb 9.6 oz (81.5 kg) Need to have pt come in for weight check this month and needs to see me back this fall - 05/2018 or 06/2018 for recheck on this medication to see how it is or is not working for her. Please assist pt in making appt to be seen. * Telephone Encounter - Coty Doan RN - 04/19/2018 4:14 PM CDT Routing refill request to provider for review/approval because: Should patient be getting this from neurology? TAYLA Simmons, RN, N [facility] [phone] * Telephone Encounter - Nery Chua - 04/19/2018 8:34 AM CDT Requested Prescriptions Pending Prescriptions Disp Refills ??? topiramate (TOPAMAX) 50 MG tablet [Pharmacy Med Name: TOPIRAMATE 50MG TABLETS] Last Written Prescription Date: 03/26/18 Last Fill Quantity: 120, # refills: 0 Last office visit: 01/07/2018 with prescribing provider: Adalberto Future Office Visit: 120 tablet 0 Sig: TAKE 2 TABLETS BY MOUTH TWICE DAILY Anti-Seizure Meds Protocol Failed 04/18/2018 2:05 PM Failed - Review Authorizing provider's last note. Refer to last progress notes: confirm request is for original authorizing provider (cannot be through other providers). Passed - Recent (12 mo) or future (30 days) visit within the authorizing provider's specialty Patient had office visit in the last 12 months or has a visit in the next 30 days with authorizing provider or within the authorizing provider's specialty. See Patient Info tab in inbasket, or Choose Columns in Meds & Orders section of the refill encounter. Passed - Normal CBC on file in past 26 months Recent Labs Lab Test 08/23/17 1040 WBC 7.1 RBC 3.94 HGB 12.6 HCT 38.9 PLT 342 For [facility] ONLY: FSCT304 = WBC, MFZF749 = RBC Passed - Normal ALT or AST on file in past 26 months Recent Labs Lab Test 09/24/17 1004 ALT 42 Recent Labs Lab Test 09/24/17 1004 AST 27 Passed - Normal platelet count on file in past 26 months Recent Labs Lab Test 08/23/17 1040 PLT 342 Passed - No active on record Passed - No positive test in last 12 months documented in this encounter Plan of Treatment Not on file documented as of this encounter Visit Diagnoses Diagnosis Loss of weight- with Topamax and s/p surgery on her back 07/24/2017- Primary Loss of weight Intractable migraine without aura and without status migrainosus- now seeing Dr. Damian - BRANDI - used to see Dr. Eliseo Dubon [facility] clinic of Neurology Migraine without aura, with intractable migraine, so stated, without mention of status migrainosus documented in this encounter Additional Health Concerns Infection Onset Date Last Indicated Resolved Time Rule Out COVID-19 06/06/2021 06/06/2021 06/06/2021 5:30 PM CDT Rule Out COVID-19 12/19/2021 12/19/2021 12/20/2021 1:02 PM CDT Assessment Noted Time PHQ-9 Depression Total Score: 16 018 7:37 AM CDT documented as of this encounter Care Teams Secretary Relationship Specialty Start Date End Date Kathy Glover MD [address] [place] [address] [phone] PCP - General Family Practice 06/03/15 10/05/20 Kathy Glover MD [address] [place] [address] [phone] PCP - Assigned PCP 07/25/15 11/19/[address] 213682 PCP - General 10/06/20 11/20/21 Luh Acharya PA-C [address] [place] [address] [phone] PCP - General Family Medicine 11/21/21 01/02/23 Toma Arguello NP [address] [address] Nurse Practitioner Nurse Practitioner Psych/Mental Health 04/11/17 Kathy Glover MD [address] [place] [address] Assigned PCP 07/25/15 12/20/19 Laura Us MD [address] [place] [address] Gastroenterology 12/20/18 Luh Acharya PA-C [address] [place] [address] Assigned PCP 12/21/19 01/17/20 Kathy Glover MD [address] [place] [address] Assigned PCP 01/18/20 06/19/20 Luh Acharya PA-C [address] [place] [address] Assigned PCP 06/20/20 03/31/21 Edward Marlow MD [address] [place] [address] Assigned Surgical Provider 07/09/20 07/31/20 Jas Bojorquez DO [address] [place] [address] Assigned PCP 04/01/21 05/21/21 Haven Buckner, CREDIT VERIFIER [address] [place] [address], [place] [address] Assigned PCP 05/22/21 11/26/21 Jenise España MD Assigned Heart and Vascular Provider 07/24/21 11/17/22 Tierra Cancino PA-C [address] [place] [address] Physician Retirement Benefits Specialist Urology 11/17/21 Luh Acharya PA-C [address] [place] [address] Assigned PCP 11/27/21 12/31/21 Tierra Cancino PA-C [address] [place] [address] Assigned Surgical Provider 12/11/21 06/08/23 Haven Buckner CNP [address] [place] [address] Assigned PCP 01/01/22 12/22/22 Luh Acharya PA-C [address] [place] [address] Assigned PCP 12/23/22 05/18/23 Haven Buckner, NICOLE [address] [place] [address] Assigned PCP 05/19/23 documented as of this encounter
--- OUTSIDE RECORDS SUMMARY | 2024-01-23 09:27 | XMS_ITS | Encounter Summary ---
Author Name Unknown Organization [place] Address [address] [facility] [place] [address] Care Team Providers Care Exhibition Designer Name Role Phone Kathy Glover MD Primary Care Provider SaundraToma ruiz NP Unavailable Kathy Glover MD Unavailable [phone] Kathy Glover MD Unavailable [phone] Laura Us MD Unavailable Luh AcharyaC Unavailable + [phone] Kathy Glover MD Unavailable [phone] Luh AcharyaC Unavailable + [phone] Edward Marlow MD Unavailable [phone] [facility] Primary Care Provider Jas Bojorquez DO Unavailable [phone] Haven Buckner CNP Unavailable [phone] Jenise España MD Unavailable Unavailable Tierra Cancino-C Unavailable Luh Acharya PA-C Primary Care Provider + Luh AcharyaC Unavailable [phone] Barak Tierra Man PA-C Unavailable Haven Buckner CNP Unavailable +1-- Luh AcharyaC Unavailable +1- BucknerHaven lofton CNP Unavailable +1- Encounter Details Date Type Department Care Team (Late st Contact Info) Description 02/28/2017 MyC Medical Advice [address] [phone] Marcy Smith RN Social History Tobacco Use Types Packs/Day [...] documented as of this encounter Care Teams Exhibition Designer Relationship Specialty Start Date End Date Kathy Glover MD [address] [place] [address] PCP - General Family Practice 06/03/15 10/05/20 Kathy Glover MD [address] [place] [address] PCP - Assigned PCP 07/25/15 11/19/[address] [address] PCP - General 10/06/20 11/20/21 Luh Acharya PA-C [address] [place] [address] PCP - General Family Medicine 11/21/21 01/02/23 Toma Arguello NP [address] [address] Nurse Practitioner Nurse Practitioner Psych/Mental Health 04/11/17 Kathy Glover MD [address] [place] [address] Assigned PCP 07/25/15 12/20/19 Laura Us MD [address] [place] [address] Gastroenterology 12/20/18 Luh Acharya PA-C [address] [place] [address] Assigned PCP 12/21/19 01/17/20 Kathy Glover MD [address] [place] [address] Assigned PCP 01/18/20 06/19/20 Luh Acharya PA-C [address] [place] [address] Assigned PCP 06/20/20 03/31/21 Edward Marlow [place] [address] Assigned Surgical Provider 07/09/20 07/31/20 Jas Bojorquez DO [address] [place] [address] 311782 Assigned PCP 04/01/21 05/21/21 Haven Buckner, NICOLE [address] [place] [address] Assigned PCP 05/22/21 11/26/21 Jenise España MD Assigned Heart and Vascular Provider 07/24/21 11/17/22 Tierra Cancino PA-C [address] [place] [address] Physician Restaurant Area Director Urology 11/17/21 Luh Acharya PA-C [address] [place] [address] Assigned PCP 11/27/21 12/31/21 Tierra Cancino PA-C [address] [place] [address] Assigned Surgical Provider 12/11/21 06/08/23 Haven Buckner CNP [address] [place] [address] Assigned PCP 01/01/22 12/22/22 Luh Acharya PA-C [address] [place] [address], [place] [address] Assigned PCP 12/23/22 05/18/23 Haven Buckner, ENGRAVING PLATE MAKER [address] [place] [address], [place] [address] Assigned PCP 05/19/23 documented as of this encounter
--- OUTSIDE RECORDS SUMMARY | 2024-01-23 09:27 | XMS_ITS | Encounter Summary ---
Author Name Unknown Organization [place] Address [address] [facility] [place] [address] Care Team Providers Care Logistics Manager Name Role Phone Kathy Glover MD Primary Care Provider SaundraToma ruiz NP Unavailable Kathy Glover MD Unavailable [phone] Kathy Glover MD Unavailable [phone] Laura Us MD Unavailable Luh AcharyaC Unavailable + [phone] Kathy Glover MD Unavailable [phone] Luh AcharyaC Unavailable + [phone] Edward Marlow MD Unavailable [phone] [facility] Primary Care Provider Jas Bojorquez DO Unavailable [phone] Haven Buckner CNP Unavailable +[phone] Jenise España MD Unavailable Unavailable Tierra Cancino-C Unavailable Luh Acharya PA-C Primary Care Provider + Luh Acharya PA-C Unavailable Tierra Cancino MICHELEC Unavailable Haven Buckner CNP Unavailable [phone] Luh AcharyaC Unavailable [phone] BucknerHaven lofton CNP Unavailable [phone] Reason for Visit * Reason Onset Date Comments MyChart Communication 01/23/2017 Re: TIM for [facility] Encounter Details Date Type Department Care Team (Late st Contact Info) Description 01/23/2017 MyC Medical Advice [address] [address] [place] [address] [place] [address] MyChart Communication (Re: TIM for [place]) Social History Tobacco Use Types Packs/Day Years [...] Telephone Encounter - Coty Doan RN - 01/30/2017 2:59 PM CDT I spoke with [facility] and was advised it would need to be a doctor to doctor call to discuss if sooner appointment is needed. You can call [phone] and ask that on-call provider be paged. Coty Doan, BS, RN, PHN [place] Triage * Telephone Encounter - Coty Doan RN - 01/26/2017 4:17 PM CDT VM left for nurses line at [facility] to call us back. Detailed message left with PCP note below. TAYLA Simmons, RN, PHN [place] Triage * Telephone Encounter - Kathy Glover MD - 01/26/2017 3:26 PM CDT BP Readings from Last 6 Encounters: 01/05/17 130/80 10/16/16 132/85 09/16/16 116/82 07/14/16 116/66 07/07/16 116/66 06/30/16 120/86 bp well controlled. Please call [facility]ants re: pt's increasing creatinine and decreasing GFR of unknown causesince - worsening slowly , to see if pt ok to wait to 04/17/2017 to be seen by nephrology there. I think with slow rate of increase, it is ok, but just want to confirm with them. I'm happy to speak with one of the nephrologists about this. Pt desiring to be seen sooner, worried. Creatinine Date Value Ref Range Status 01/18/2017 1.25 (H) 0.52 - 1.04 mg/dL Final 01/05/2017 1.18 (H) 0.52 - 1.04 mg/dL Final 10/16/2016 1.09 (H) 0.52 - 1.04 mg/dL Final 06/27/2016 0.98 0.52 - 1.04 mg/dL Final 04/27/2016 0.86 0.52 - 1.04 mg/dL Final GFR Estimate Date Value Ref Range Status 01/18/2017 46 (L) >60 mL/min/1.7m2 Final Comment: Non GFR Calc 01/05/2017 49 (L) >60 mL/min/1.7m2 Final Comment: Non GFR Calc 10/16/2016 54 (L) >60 mL/min/1.7m2 Final Comment: Non GFR Calc * Telephone Encounter - Coty Doan RN - 01/26/2017 11:03 AM CDT Forwarded to Dr. Glover. Please review patient's Mychart message and advise. Coty Doan, RN, BS, PHN * Telephone Encounter - Marcy Smith RN - 01/25/2017 3:35 PM CDT Routing to PCP for further [...] documented as of this encounter Care Teams Logistics Manager Relationship Specialty Start Date End Date Kathy Glover MD [address] [place] [address] PCP - General Family Practice 06/03/15 10/05/20 Kathy Glover MD [address] [place] [address] PCP - Assigned PCP 07/25/15 11/19/[address] [address] PCP - General 10/06/20 11/20/21 Luh Acharya PA-C [address] [place] [address] PCP - General Family Medicine 11/21/21 01/02/23 Toma Arguello [facility] [place] [address] [place] [address] Nurse Practitioner Nurse Practitioner Psych/Mental Health 04/11/17 Kathy Glover MD [address] [place] [address] Assigned PCP 07/25/15 12/20/19 Laura Us MD [address] [place] [address] 999322 Gastroenterology 12/20/18 Luh Acharya PA-C [address] [place] [address] 082212 Assigned PCP 12/21/19 01/17/20 Kathy Glover MD [address] [place] [address] [phone] Assigned PCP 01/18/20 06/19/20 Luh Acharya PA-C [address] [place] [address] 774502 Assigned PCP 06/20/20 03/31/21 Edward Marlow MD [facility] [place] [address] Assigned Surgical Provider 07/09/20 07/31/20 Jas Bojorquez DO [address] [place] [address], [place] [address] Assigned PCP 04/01/21 05/21/21 Haven Buckner, FRONT WORKER [address] [place] [address], [place] [address] Assigned PCP 05/22/21 11/26/21 Jenise España MD Assigned Heart and Vascular Provider 07/24/21 11/17/22 Tierra Cancino PA-C [address] [place] [address] Physician Image Scientist Urology 11/17/21 Luh Acharya PA-C [address] [place] [address], [place] [address] Assigned PCP 11/27/21 12/31/21 Tierra Cancino PA-C [address] [place] [address] Assigned Surgical Provider 12/11/21 06/08/23 Haven Buckner, FRONT WORKER [address] [place] [address], [place] [address] Assigned PCP 01/01/22 12/22/22 Luh Acharya PA-C [address] [place] [address], [place] [address] Assigned PCP 12/23/22 05/18/23 Haven Buckner, FRONT WORKER [address] [place] [address] Assigned PCP 05/19/23 documented as of this encounter
--- OUTSIDE RECORDS SUMMARY | 2024-01-23 09:27 | XMS_ITS | Encounter Summary ---
Author Name Unknown Organization [place] Address [address] [facility] [place] [address] Care Team Providers Care Automotive Tire Worker Name Role Phone Kathy Glover MD Primary Care Provider SaundraToma ruiz NP Unavailable [phone] Kathy Glover MD Unavailable +[phone] Laura Us MD Unavailable Luh AcharyaC Unavailable + [phone] Kathy Glover MD Unavailable +[phone] Luh Acharya-C Unavailable + [phone] Edward Marlow MD Unavailable [facility] Primary Care Provider Jas Bojorquez DO Unavailable +[phone] Haven Buckner CNP Unavailable +[phone] Jenise España MD Unavailable Unavailable Tierar Cancino PA-C Unavailable Luh AcharyaC Primary Care Provider + Luh Acharya-C Unavailable +[phone] Tierra Cancino PA-C Unavailable +[phone] Haven Buckner CNP Unavailable +[phone]- Luh Acharya PA-C Unavailable +[phone] Haven Buckner CNP Unavailable +[phone] Encounter Details Date Type Department Care Team (Late st Contact Info) Description 01/08/2019 [facility] [address] [phone] Marcy Smith RN Social History Tobacco Use [...] Total Score: 5 11/22/19 19 7:06 AM BEAM DYER RECESSED VAT documented as of this encounter Care Teams Automotive Tire Worker Relationship Specialty Start Date End Date Kathy Glover MD [address] [place] [address] [phone] PCP - General Family Practice 06/03/15 10/05/20 Clinic - [address] [place] [address] PCP - General 10/06/20 11/20/21 Luh Acharya PA-C [address] [place] [address] PCP - General Family Medicine 11/21/21 01/02/23 Toma Arguello [employer] [address] [address] Nurse Practitioner Nurse Practitioner Psych/Mental Health 04/11/17 Kathy Glover MD [address] [place] [address] 18558 Assigned PCP 07/25/15 12/20/19 Laura Us MD [address] [place] [address] Gastroenterology 12/20/18 Luh Acharya PA-C [address] [place] [address] 23190 Assigned PCP 12/21/19 01/17/20 Kathy Glover MD [address] [place] [address] 17823 Assigned PCP 01/18/20 06/19/20 Luh Acharya PA-C [address] [place] [address] 80934 Assigned PCP 06/20/20 03/31/21 Edward Marlow MD [address] [place] [address] Assigned Surgical Provider 07/09/20 07/31/20 Jas Bojorquez DO [address] [place] [address] [phone] Assigned PCP 04/01/21 05/21/21 Haven Buckner, LOSS PREVENTION RESEARCH ENGINEER [address] [place] [address] [phone] Assigned PCP 05/22/21 11/26/21 Jenise España MD Assigned Heart and Vascular Provider 07/24/21 11/17/22 Tierra Cancino PA-C [address] [place] [address] Physician Chainstitch Seat Joiner Urology 11/17/21 Luh Acharya PA-C [address] [place] [address] Assigned PCP 11/27/21 12/31/21 Tierra Cancino PA-C [address] [place] [address] Assigned Surgical Provider 12/11/21 06/08/23 Haven Buckner, LOSS PREVENTION RESEARCH ENGINEER [address] [place] [address] 39[address] Assigned PCP 01/01/22 12/22/22 Luh Acharya PA-C [facility] [place] [address] Assigned PCP 12/23/22 05/18/23 Haven Buckner, LOSS PREVENTION RESEARCH ENGINEER [address] [place] [address] Assigned PCP 05/19/23 documented as of this encounter
--- OUTSIDE RECORDS SUMMARY | 2024-01-23 09:27 | XMS_ITS | Encounter Summary ---
Author Name Unknown Organization [place] Address [address] [facility] [place] [address] Care Team Providers Care Research Quality Assurance Specialist Name Role Phone Kathy Glover MD Primary Care Provider SaundraToma ruiz NP Unavailable [phone] Kathy Glover MD Unavailable +[phone] Kathy Glover MD Unavailable +[phone] Laura Us MD Unavailable Luh AcharyaC Unavailable + [phone] Kathy Glover MD Unavailable +[phone] Luh AcharyaC Unavailable + [phone] Edward Marlow MD Unavailable +[phone] [facility] Primary Care Provider Jas Bojorquez DO Unavailable +[phone] Haven Buckner CNP Unavailable +[phone] Jenise España MD Unavailable Unavailable Tierra Cancino-C Unavailable Luh Acharya PA-C Primary Care Provider + Luh Acharya PA-C Unavailable +1- Tierra Cancinojose guadalupe HUFF Unavailable BucknerHaven loftonzarosa maria RIVERA Unavailable +1--2 Luh Acharya PA-C Unavailable +1- BucknerHaven lofton CNP Unavailable +1-2 Reason for Visit * Reason Comments Medication Refill Encounter Details Date Type Department Care Team (Late st Contact Info) Description 03/14/2018 Refill [facility] [address] [facility] [address] [place] [address] [place] [address] [place], [place] [phone] Medication Refill Social History Tobacco Use Types [...] encounter Miscellaneous Notes * Telephone Encounter - Nessa Qiuntana RN - 03/14/2018 11:43 AM CDT Will forward to PCP for review and to address refill request. Patient was unable to follow-up with Toma Arguello, due to provider being on medical leave. documented in this encounter Plan of Treatment [...] documented as of this encounter Care Teams Research Quality Assurance Specialist Relationship Specialty Start Date End Date Kathy Glover MD [address] [place] [address] 268[address] PCP - General Family Practice 06/03/15 10/05/20 Kathy Glover MD [address] [place] [address] [phone] PCP - Assigned PCP 07/25/15 11/19/[address] 615262 PCP - General 10/06/20 11/20/21 Luh Acharya PA-C [address] [place] [address] [phone] PCP - General Family Medicine 11/21/21 01/02/23 Toma Arguello NP [address] [address] Nurse Practitioner Nurse Practitioner Psych/Mental Health 04/11/17 Kathy Glover MD [address] [place] [address] 19974 Assigned PCP 07/25/15 12/20/19 Laura Us MD [address] [place] [address] Gastroenterology 12/20/18 Luh Acharya PA-C [address] [place] [address] [phone] Assigned PCP 12/21/19 01/17/20 Kathy Glover MD [address] [place] [address] 039362 Assigned PCP 01/18/20 06/19/20 Luh Acharya PA-C [address] [place] [address] 775842 Assigned PCP 06/20/20 03/31/21 Edward Marlow MD [address] [place] [address] Assigned Surgical Provider 07/09/20 07/31/20 Jas Bojorquez DO [address] [place] [address] 404252 Assigned PCP 04/01/21 05/21/21 Haven Buckner, SCHEDULE ANALYST [address] [place] [address] 760202 Assigned PCP 05/22/21 11/26/21 Jenise España MD Assigned Heart and Vascular Provider 07/24/21 11/17/22 Tierra Cancino PA-C [address] [facility] [place] [address] Physician Shirt Cleaner Urology 11/17/21 Luh Acharya PA-C [address] [place] [address], [place] [address] Assigned PCP 11/27/21 12/31/21 Tierra Cancino PA-C [address] [place] [address] Assigned Surgical Provider 12/11/21 06/08/23 Haven Buckner, SCHEDULE ANALYST [address] [place] [address], [place] [address] Assigned PCP 01/01/22 12/22/22 Luh Acharya PA-C [address] [place] [address], [place] [address] Assigned PCP 12/23/22 05/18/23 Haven Buckner, SCHEDULE ANALYST [address] [place] [address], [place] [address] Assigned PCP 05/19/23 documented as of this encounter
--- OUTSIDE RECORDS SUMMARY | 2024-01-23 09:27 | XMS_ITS | Encounter Summary ---
Author Name Unknown Organization [place] Address [address] [place] [address] Care Team Providers Care Hydraulic Bull Riveter Operator Name Role Phone Kathy Glover MD Primary Care Provider SaundraToma ruiz NP Unavailable Kathy Glover MD Unavailable +[phone] Kathy Glover MD Unavailable +[phone] Laura Us MD Unavailable Luh AcharyaC Unavailable + [phone] Kathy Glover MD Unavailable +[phone] Luh AcharyaC Unavailable + [phone] Edward Marlow MD Unavailable [phone] [facility] Primary Care Provider Jas Bojorquez DO Unavailable +[phone] Haven Buckner CNP Unavailable +[phone] Jenise España MD Unavailable Unavailable Tierra Cancino-C Unavailable Luh Acharya PA-C Primary Care Provider + Karri Acharyaa Enedina BAUTISTAC Unavailable Tierra Cancinovandana BAUTISTAC Unavailable BucknerHaven lofton CNP Unavailable +1-2-2 Luh Acharya Enedina BAUTISTAC Unavailable [phone] BucknerHaven lofton CNP Unavailable [phone] Reason for Visit * Reason Onset Date Comments MyChart Communication 02/22/[address] recommendation Encounter Details Date Type Department Care Team (Late st Contact Info) Description 02/22/2017 MyC Medical Advice [address] [address] [place] [address] [place] [address] MyChart Communication (psychiatrist recomm... Social History Tobacco Use Types Packs/Day Years [...] Telephone Encounter - Marcy Smith RN - 02/22/2017 1:26 PM CDT Noted, see Evisit request. Dona Smith RN * Telephone Encounter - Marcy Smith RN - 02/22/2017 11:20 AM CDT Routing to PCP for further review/recommendations/orders. [...] documented as of this encounter Care Teams Hydraulic Bull Riveter Operator Relationship Specialty Start Date End Date Kathy Glover MD [address] [place] [address] [phone] PCP - General Family Practice 06/03/15 10/05/20 Kathy Glover MD [address] [place] [address] 564672 PCP - Assigned PCP 07/25/15 11/19/[address] 734262 PCP - General 10/06/20 11/20/21 Luh Acharya PA-C [address] [place] [address] [phone] PCP - General Family Medicine 11/21/21 01/02/23 Toma Arguello NP [address] [address] Nurse Practitioner Nurse Practitioner Psych/Mental Health 04/11/17 Kathy Glover MD [address] [place] [address] 33213 Assigned PCP 07/25/15 12/20/19 Laura Us MD [address] [place] [address] Gastroenterology 12/20/18 Luh Acharya PA-C [address] [place] [address] 31038 Assigned PCP 12/21/19 01/17/20 Kathy Glover MD [address] [place] [address] Assigned PCP 01/18/20 06/19/20 Luh Acharya PA-C [address] [place] [address] Assigned PCP 06/20/20 03/31/21 Edward Marlow MD [facility] [place] [address] Assigned Surgical Provider 07/09/20 07/31/20 Jas Bojorquez DO [address] [place] [address]2025 Assigned PCP 04/01/21 05/21/21 Haven Buckner, STEAM OVEN OPERATOR [address] [place] [address] Assigned PCP 05/22/21 11/26/21 Jenise España MD Assigned Heart and Vascular Provider 07/24/21 11/17/22 Tierra Cancino PA-C [address] [place] [address] Physician Ophthalmology Surgical Technician Urology 11/17/21 Luh Acahrya PA-C [address] [place] [address] Assigned PCP 11/27/21 12/31/21 Tierra Cancino PA-C [address] [place] [address] Assigned Surgical Provider 12/11/21 06/08/23 Haven Buckner, NICOLE [address] [place] [address] 15458 Assigned PCP 01/01/22 12/22/22 Luh Acharya PA-C [address] [place] [address] Assigned PCP 12/23/22 05/18/23 Haven Buckner, NICOLE [address] [place] [address] Assigned PCP 05/19/23 documented as of this encounter
--- OUTSIDE RECORDS SUMMARY | 2024-01-23 09:28 | XMS_ITS | Encounter Summary ---
Author Name Unknown Organization [place] Address [address] [facility] [place] [address] Care Team Providers Care Beater Tender Name Role Phone Kathy Glover MD Primary Care Provider SaundraToma ruiz NP Unavailable [phone] Kathy Glover MD Unavailable +[phone] Kathy Glover MD Unavailable +[phone] Laura Us MD Unavailable Luh AcharyaC Unavailable + [phone] Kathy Glover MD Unavailable +[phone] Luh AcharyaC Unavailable + [phone] Edward Marlow MD Unavailable [phone] [facility] Primary Care Provider aJs Bojorquez DO Unavailable +[phone] Haven Buckner CNP Unavailable +[phone] Jenise España MD Unavailable Unavailable Tierra Cancino-C Unavailable Luh Acharya PA-C Primary Care Provider + Luh AcharyaC Unavailable [phone] ShaniTierra goel Magda BAUTISTAC Unavailable Haven Buckner CNP Unavailable +1-2-2 Luh AcharyaC Unavailable [phone] BucknerHaven lofton CNP Unavailable +1--2 Reason for Visit * Reason Comments Medication Refill traZODone (DESYREL) 100 MG tablet Encounter Details Date Type Department Care Team (Late st Contact Info) Description 01/19/[address] [address] [place] [address] [place] [address] Medication Refill (traZODone (DESYREL) 100 MG tablet ) Social History Tobacco Use Types Packs/Day Years [...] Telephone Encounter - Manisha Patel RN - 01/20/2016 3:43 PM CDT Please see message below Please review and advise Thank you Manisha Patel RN, BSN [place] Triage * Telephone Encounter - Renay Barlow RN - 01/20/2016 11:32 AM CDT traZODone (DESYREL) 100 MG tablet Rx was D/C on 11/18/15 due to Dosage Adjustment - Pt wanted to go down to 50mg Last Written Prescription Date: 06/02/15 Last Fill Quantity: n/a; # refills: n/a Last [facility] Visit with [facility] or [facility] prescribing provider: 11/18/15 Next 5 appointments (look out 90 days) January 29, 2016 8:45 AM Office Visit with Kathy Glover MD [facility] [address] [place] [phone] Last PHQ-9 score on record= PHQ-9 SCORE 11/18/2015 Total Score 5 AST 39 11/18/2015 ALT 78 11/18/2015 Renay Barlow Patient Assistant County Engineer documented in this encounter Plan of Treatment Not on file documented as of this encounter Visit Diagnoses Diagnosis Primary insomnia- Primary Persistent disorder of initiating or maintaining sleep documented in this encounter Additional Health Concerns Infection Onset Date Last Indicated Resolved Time Rule Out COVID-19 06/06/2021 06/06/2021 06/06/2021 5:30 PM CDT Rule Out COVID-19 12/19/2021 12/19/2021 12/20/2021 1:02 PM CDT Assessment Noted Time PHQ-9 Depression Total Score: 5 11/19/19 16 7:51 AM LADLE HANDLER documented as of this encounter Care Teams Beater Tender Relationship Specialty Start Date End Date Kathy Glover MD [address] [place] [address] PCP - General Family Practice 06/03/15 10/05/20 Kathy Glover MD [address] [place] [address]80 PCP - Assigned PCP 07/25/15 11/19/[address] [address] PCP - General 10/06/20 11/20/21 Luh Acharya PA-C [address] [place] [address] PCP - General Family Medicine 11/21/21 01/02/23 Toma Arguello NP [address] [address] Nurse Practitioner Nurse Practitioner Psych/Mental Health 04/11/17 Kathy Glover MD [address] [place] [address]05 Assigned PCP 07/25/15 12/20/19 Laura Us MD [address] [place] [address] Gastroenterology 12/20/18 Luh Acharya PA-C [address] [place] [address]752 Assigned PCP 12/21/19 01/17/20 Kathy Glover MD [address] [place] [address] 20052 Assigned PCP 01/18/20 06/19/20 Luh Acharya PA-C [address] [place] [address] 28172 Assigned PCP 06/20/20 03/31/21 Edward Marlow MD [address] [place] [address] Assigned Surgical Provider 07/09/20 07/31/20 Jas Bojorquez DO [address] [place] [address] Assigned PCP 04/01/21 05/21/21 Haven Buckner, EDUCATION REVIEWER [address] [place] [address]851 Assigned PCP 05/22/21 11/26/21 Jenise España MD Assigned Heart and Vascular Provider 07/24/21 11/17/22 Tierra Cancino PA-C [address] [place] [address] Physician Insurance Verify Rep Urology 11/17/21 Luh Acharya PA-C [address] [place] [address] Assigned PCP 11/27/21 12/31/21 Tierra Cancino PA-C [address] [place] [address] Assigned Surgical Provider 12/11/21 06/08/23 Haven Buckner, NICOLE [address] [place] [address] Assigned PCP 01/01/22 12/22/22 Luh Acharya PA-C [address] [place] [address] Assigned PCP 12/23/22 05/18/23 Haven Buckner, EDUCATION REVIEWER [address] [place] [address] Assigned PCP 05/19/23 documented as of this encounter
--- OUTSIDE RECORDS SUMMARY | 2024-01-23 09:28 | XMS_ITS | Encounter Summary ---
Author Name Unknown Organization [place] Address [address] [facility] [place] [address] Care Team Providers Care Beauty Specialist Name Role Phone Kathy Glover MD Primary Care Provider SaundraToma uriz NP Unavailable [phone] Kathy Glover MD Unavailable +[phone] Kathy Glover MD Unavailable +[phone] Laura Us MD Unavailable Luh AcharyaC Unavailable + [phone] Kathy Glover MD Unavailable +[phone] Luh AcharyaC Unavailable + [phone] Edward Marlow MD Unavailable [phone] [facility] Primary Care Provider Jas Bojorquez DO Unavailable +[phone] Haven Buckner CNP Unavailable +[phone] Jenise España MD Unavailable Unavailable Tierra Cancino-C Unavailable Luh Acharya PA-C Primary Care Provider + Luh Acharya PA-C Unavailable [phone] Shaniamando Tierra Magda HUFF Unavailable [phone] Haven Buckner CNP Unavailable +1-2-2 Luh Acharya PA-C Unavailable +[phone] BucknerHaven lofton CNP Unavailable +1-83-2 Reason for Visit * Reason Comments Medication Refill Encounter Details Date Type Department Care Team (Late st Contact Info) Description 05/09/[address] [address] Kathy Glovre MD [address] [place] [address] Medication Refill Social History Tobacco Use [...] Total Score: 5 11/19/19 16 7:51 AM SURGICAL GARMENT ASSEMBLY SUPERVISOR documented as of this encounter Care Teams Beauty Specialist Relationship Specialty Start Date End Date Kathy Glover MD [address] [place] [address] PCP - General Family Practice 06/03/15 10/05/20 Kathy Glover MD [address] [place] [address] 032442 PCP - Assigned PCP 07/25/15 11/19/[address] [phone] PCP - General 10/06/20 11/20/21 Luh Acharya PA-C [address] [place] [address] 113132 PCP - General Family Medicine 11/21/21 01/02/23 Toma Arguello NP [address] [address] Nurse Practitioner Nurse Practitioner Psych/Mental Health 04/11/17 Kathy Glover MD [address] [place] [address]654 Assigned PCP 07/25/15 12/20/19 Laura Us MD [address] [place] [address]90 Gastroenterology 12/20/18 Luh Acharya PA-C [address] [place] [address] 6[address] Assigned PCP 12/21/19 01/17/20 Kathy Glover MD [address] [place] [address] 83986 Assigned PCP 01/18/20 06/19/20 Luh Acharya PA-C [address] [place] [address] 61559 Assigned PCP 06/20/20 03/31/21 Edward Marlow [place] [address] Assigned Surgical Provider 07/09/20 07/31/20 Jas Bojorquez DO [address] [place] [address] 45278 Assigned PCP 04/01/21 05/21/21 Haven Buckner, CHILD DEVELOPMENT SPECIALIST [address] [place] [address] 67[address] Assigned PCP 05/22/21 11/26/21 Jenise España MD Assigned Heart and Vascular Provider 07/24/21 11/17/22 Tierra Cancino PA-C [address] [place] [address] Physician Diagnostic Radiologic Technologist Urology 11/17/21 Luh Acharya PA-C [address] [place] [address] Assigned PCP 11/27/21 12/31/21 Tierra Cancino PA-C [address] [place] [address] Assigned Surgical Provider 12/11/21 06/08/23 Haven Buckner CNP [address] [place] [address] 65598 Assigned PCP 01/01/22 12/22/22 Luh Acharya PA-C [address] [place] [address] Assigned PCP 12/23/22 05/18/23 Haven Buckner CNP [address] [place] [address] 35513 Assigned PCP 05/19/23 documented as of this encounter
--- OUTSIDE RECORDS SUMMARY | 2024-01-23 09:28 | XMS_ITS | Encounter Summary ---
Author Name Unknown Organization [place] Address [address] [facility] [place] [address] Care Team Providers Care Home [employer]ot Rep Name Role Phone Kathy Glover MD Primary Care Provider SaundraToma ruiz NP Unavailable [phone] Kathy Glover MD Unavailable +[phone] Kathy Glover MD Unavailable +[phone] Laura Us MD Unavailable Luh AcharyaC Unavailable + [phone] Kathy Glover MD Unavailable +[phone] Luh AcharyaC Unavailable + [phone] Edward Marlow MD Unavailable [phone] [facility] Primary Care Provider Jas Bojorquez DO Unavailable +[phone] Haven Buckner CNP Unavailable +[phone] Jenise España MD Unavailable Unavailable Tierra Cancino-C Unavailable [phone] Luh Acharya PA-C Primary Care Provider + Luh Acharya PA-C Unavailable Tierra Cancino PA-C Unavailable +[phone] Haven Buckner CNP Unavailable +[phone] Luh Acharya PA-C Unavailable [phone] BucknerHaven lofton CNP Unavailable +1-32-2 Reason for Visit * Reason Onset Date Comments Refill Request 05/09/2016 flexeril Encounter Details Date Type Department Care Team (Late st Contact Info) Description 05/09/[address] [address] Kathy Glover MD [address] [place] [address] Refill Request (flexeril) Social History Tobacco Use Types Packs/Day Years [...] Telephone Encounter - Marcy Smith RN - 05/09/2016 2:10 PM CDT Routing refill request to provider for review/approval because: Drug not on the [facility] refill protocol not on med list for RN protocol. Dona Smith RN * Telephone Encounter - Krunal Whitehead - 05/09/2016 9:18 AM CDT cyclobenzaprine (FLEXERIL) 5 MG tablet Last Written Prescription Date: 01.01.16 Last Fill Quantity: 42, # refills: 0 Last Office Visit with [facility] provider: 04.27.16 documented in this encounter Plan of Treatment Not on file documented as of this encounter Visit Diagnoses Diagnosis Essential hypertension with goal blood pressure less than 140/90- Primary Intractable migraine without aura and without status migrainosus Migraine without aura, with intractable migraine, so stated, without mention of status migrainosus documented in this encounter Additional Health Concerns Infection Onset Date Last Indicated Resolved Time Rule Out COVID-06/06/2021 06/06/2021 06/06/2021 5:30 PM CDT Rule Out COVID-19 12/19/2021 12/19/2021 12/20/2021 1:02 PM CDT Assessment Noted Time PHQ-9 Depression Total Score: 5 11/19/19 16 7:51 AM HAIR SPINNING MACHINE OPERATOR documented as of this encounter Care Teams Home [employer]ot Rep Relationship Specialty Start Date End Date Kathy Glover MD [address] [place] [address] PCP - General Family Practice 06/03/15 10/05/20 Kathy Glover MD [address] [place] [address] PCP - Assigned PCP 07/25/15 11/19/[address] [address] PCP - General 10/06/20 11/20/21 Luh Acharya PA-C [address] [place] [address] PCP - General Family Medicine 11/21/21 01/02/23 Toma Arguello NP [facility] [address] [place] [address] Nurse Practitioner Nurse Practitioner Psych/Mental Health 04/11/17 Kathy Glover MD [address] [place] [address] Assigned PCP 07/25/15 12/20/19 Laura Us MD [address] [place] [address] [phone] Gastroenterology 12/20/18 Luh Acharya PA-C [address] [place] [address]45 Assigned PCP 12/21/19 01/17/20 Kathy Glover MD [address] [place] [address] 980272 Assigned PCP 01/18/20 06/19/20 Luh Acharya PA-C [address] [place] [address] Assigned PCP 06/20/20 03/31/21 Edward Marlow MD [address] [place] [address] Assigned Surgical Provider 07/09/20 07/31/20 Jas Bojorquez DO [address] [place] [address] Assigned PCP 04/01/21 05/21/21 Haven Buckner, NICOLE [address] [place] [address], [place] [address] Assigned PCP 05/22/21 11/26/21 Jenise España MD Assigned Heart and Vascular Provider 07/24/21 11/17/22 Tierra Cancino PA-C [address] [place] [address] Physician Numerical Analysis Group Manager Urology 11/17/21 Luh Acharya PA-C [address] [place] [address], [place] [address] Assigned PCP 11/27/21 12/31/21 Tierra Cancino PA-C [address] [place] [address] Assigned Surgical Provider 12/11/21 06/08/23 Haven Buckner CNP [address] [place] [address], [place] [address] Assigned PCP 01/01/22 12/22/22 Luh Acharya PA-C [address] [place] [address], [place] [address] Assigned PCP 12/23/22 05/18/23 Haven Buckner, NICOLE [address] [place] [address], [place] [address] Assigned PCP 05/19/23 documented as of this encounter
--- OUTSIDE RECORDS SUMMARY | 2024-01-23 09:28 | XMS_ITS | Encounter Summary ---
Author Name Unknown Organization [facility] Address [address] [facility] [place] [address] Care Team Providers Care Electric Relay Tester Name Role Phone Kathy Glover MD Primary Care Provider SaundraToma ruiz NP Unavailable [phone] Kathy Glover MD Unavailable [phone] Kathy Glover MD Unavailable +[phone] Laura Us MD Unavailable Luh AcharyaC Unavailable + [phone] Kathy Glover MD Unavailable +[phone] Luh AcharyaC Unavailable + [phone] Edward Marlow MD Unavailable [phone] [facility] Primary Care Provider Jas Bojorquez DO Unavailable +[phone] Haven Buckner CNP Unavailable +[phone] Jenise España MD Unavailable Unavailable Tierra Cancino-C Unavailable Luh Acharya PA-C Primary Care Provider + Luh Acharya Enedina BAUTISTAC Unavailable Tierra Cancinovandana BAUTISTAC Unavailable Haven Buckner CNP Unavailable +-2 Karri Acharyakirsty BAUTISTAC Unavailable + SitaHaven CNP Unavailable +- Reason for Visit * Reason Onset Date Comments Medication Request 05/23/2016 Encounter Details Date Type Department Care Team (Late st Contact Info) Description 05/23/2016 MyC Medical Advice [address] [phone] Dona Davidson, plate conditioner Request Social History Tobacco Use Types Packs/Day [...] encounter Miscellaneous Notes * Telephone Encounter - Dona Davidson RN - 06/01/2016 4:28 PM CDT Medication had been sent to Luh Acharya for review and refilled Dona Davidson RN, BSN [facility] documented in this encounter Plan of Treatment Not on file documented as of this encounter Visit Diagnoses Not on filedocumented in this encounter Additional Health Concerns Infection Onset Date Last Indicated Resolved Time Rule Out COVID-19 06/06/2021 06/06/2021 06/06/2021 5:30 PM CDT Rule Out COVID-19 12/19/2021 12/19/2021 12/20/2021 1:02 PM CDT Assessment Noted Time PHQ-9 Depression Total Score: 11 016 7:20 AM CDT documented as of this encounter Care Teams Electric Relay Tester Relationship Specialty Start Date End Date Kathy Glover MD [address] [place] [address] 12084 PCP - General Family Practice 06/03/15 10/05/20 Kathy Glover MD [address] [place] [address] 095[address] PCP - Assigned PCP 07/25/15 11/19/[address] [id number] PCP - General 10/06/20 11/20/21 Luh Acharya PA-C [address] [place] [address] 11820 PCP - General Family Medicine 11/21/21 01/02/23 Toam Arguello NP [address] [address] Nurse Practitioner Nurse Practitioner Psych/Mental Health 04/11/17 Kahty Glover MD [address] [place] [address]339 Assigned PCP 07/25/15 12/20/19 Laura Us MD [address] [place] [address]66 Gastroenterology 12/20/18 Luh Acharya PA-C [address] [place] [address] 8[address]34 Assigned PCP 12/21/19 01/17/20 Kathy Glover MD [address] [place] [address] 81418 Assigned PCP 01/18/20 06/19/20 Luh Acharya PA-C [address] [place] [address] 05684 Assigned PCP 06/20/20 03/31/21 [place] [address] Assigned Surgical Provider 07/09/20 07/31/20 Jas Bojorquez DO [address] [place] [address] 607452 Assigned PCP 04/01/21 05/21/21 Haven Buckner, NICOLE [address] [place] [address] [phone] Assigned PCP 05/22/21 11/26/21 Jenise España MD Assigned Heart and Vascular Provider 07/24/21 11/17/22 Tierra Cancino PA-C [address] [place], [place] [address] Physician Photo Checker And Assembler Urology 11/17/21 Luh Acharya PA-C [address] [place] [address] [phone] Assigned PCP 11/27/21 12/31/21 Tierra Cancino PA-C [address] [place] [address] Assigned Surgical Provider 12/11/21 06/08/23 Haven Buckner, WELDER ASSISTANT [address] [place] [address] 30018 Assigned PCP 01/01/22 12/22/22 Luh Acharya PA-C [address] [place] [address] 8[address]28 Assigned PCP 12/23/22 05/18/23 Haven Buckner, WELDER ASSISTANT [address] [place] [address] 81504 Assigned PCP 05/19/23 documented as of this encounter
--- OUTSIDE RECORDS SUMMARY | 2024-01-23 09:28 | XMS_ITS | Encounter Summary ---
Author Name Unknown Organization [facility] Address [address] [facility] [place] [address] Care Team Providers Care Baggageman Name Role Phone Kathy Glover MD Primary Care Provider SaundraToma ruiz NP Unavailable [phone] Kathy Glover MD Unavailable [phone] Kathy Glover MD Unavailable +[phone] Laura Us MD Unavailable Luh AcharyaC Unavailable + [phone] Kathy Glover MD Unavailable +[phone] Luh AcharyaC Unavailable + [phone] Edward Marlow MD Unavailable [phone] [facility] Primary Care Provider Jas Bojorquez DO Unavailable +[phone] Haven Buckner CNP Unavailable +[phone] Jenise España MD Unavailable Unavailable Tierra Cancino-C Unavailable Luh Acharya PA-C Primary Care Provider + Luh Acharya PA-C Unavailable [phone] Barak Tierra Man PA-C Unavailable Haven Buckner CNP Unavailable +1-2-2 Luh Acharya PA-C Unavailable [phone] BucknerHaven lofton CNP Unavailable +[phone] Encounter Details Date Type Department Care Team (Late st Contact Info) Description 06/30/2016 MyC Medical Advice [address] [phone] Mahesh Cuevas Jr., MD [address] [place] [address] Social History Tobacco Use Types Packs/Day [...] documented as of this encounter Care Teams Baggageman Relationship Specialty Start Date End Date Kathy Glover MD [address] [place] [address] PCP - General Family Practice 9/17/15 1/19/21 Kathy Glover MD [address] [place] [address]06 PCP - Assigned PCP 07/25/15 11/19/[address] [address] PCP - General 10/06/20 11/20/21 Luh Acharya PA-C [address] [place] [address] [phone] PCP - General Family Medicine 11/21/21 01/02/23 Toma Arguello NP [address] [phone] Nurse Practitioner Nurse Practitioner Psych/Mental Health 04/11/17 Kathy Glover MD [address] [place] [address] [phone] Assigned PCP 07/25/15 12/20/19 Laura Us MD [address] [place] [address] Gastroenterology 12/20/18 Luh Acharya PA-C [address] [place] [address] 35391 Assigned PCP 12/21/19 01/17/20 Kathy Glover MD [address] [place] [address] Assigned PCP 01/18/20 06/19/20 Luh Acharya PA-C [address] [place] [address] Assigned PCP 06/20/20 03/31/21 Edward Marlow [place] [address] Assigned Surgical Provider 07/09/20 07/31/20 Jas Bojorquez DO [address] [place] [address] Assigned PCP 04/01/21 05/21/21 Haven Buckner CNP [address] [place] [address] Assigned PCP 05/22/21 11/26/21 Jenise España MD Assigned Heart and Vascular Provider 07/24/21 11/17/22 Tierra Cancino PA-C [address] [place] [address] Physician Jboss Architect Urology 11/17/21 Luh Acharya PA-C [address] [place] [address] Assigned PCP 11/27/21 12/31/21 Tierra Cancino PA-C [address] [place] [address] Assigned Surgical Provider 12/11/21 06/08/23 Haven Buckner CNP [address] [place] [address] Assigned PCP 01/01/22 12/22/22 Luh Acharya PA-C [address] [place] [address] Assigned PCP 12/23/22 05/18/23 Haven Buckner CNP [address] [place] [address] Assigned PCP 05/19/23 documented as of this encounter
== END 2024-01-21 17:32 | disposition home or self-care (01) ==
LOC: NFLDREF 01-23 09:22
PROVIDERS: PCP Family Medicine; Referring Provider Family Medicine; Visit Provider Nurse Practitioner
DX: N30.01 Acute cystitis with hematuria (principal); B96.20 Unspecified Escherichia coli [E. coli] as the cause of diseases classified elsewhere
CPT/HCPCS: 87086; 87186

== ENCOUNTER 2024-03-26 15:22 | Outpatient (CLI) | payer BC, SELFPAY | END 2024-03-26 15:23 | disposition home or self-care (01) | LOC: NFLDREF 03-27 07:53 | PROVIDERS: PCP Family Medicine; Referring Provider Family Medicine; Visit Provider Physician Assistant | DX: N39.0 Urinary tract infection, site not specified (principal) | CPT/HCPCS: 87086; 87186 ==

== ENCOUNTER 2024-04-10 08:13 | Outpatient (CLI) | payer BC, SELFPAY ==
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
--- OUTSIDE RECORDS SUMMARY | 2024-04-10 08:18 | XMS_ITS | Continuity of Care Document ---
Author Organization [facility] christine Address [address] [facility] [place] [address] Phone Care Team Providers Care Line Prep Cook Name Role Phone Alonso Dillon Unavailable Unavailable Allergies, Adverse Reactions, Alerts Substance Reaction Status Criticality metronidazole itching Active No Information CIPROFLOXACIN HCL itching Active No Informa tion ciprofloxacin itching Active No Information Medications Medication Instructions Dosage Effective Dates (start - stop) Status Comments UBRELVY 100MG TABLETS TAKE 1 TABLET BY MOUTH 1 TIME. MAY REPEAT DOSE 1 TIME AFTER 2 HOURS NEEDED. NOT TO EXCEED 200 MG IN 24 HOURS - Active omeprazole 20 mg capsule,delayed release [...] by mouth 2 times daily - Active rosuvastatin 20 mg tablet Take 1 tablet (20 mg) by mouth At Bedtime - Active metoprolol succinate ER 25 mg tablet,extended release 24 hr TAKE 1 TABLET(25 MG) BY MOUTH TWICE DAILY - Active nystatin 100,000 unit/gram topical cream Apply topically 2 times daily - Active EpiPen 2-Champ 0.3 mg/0.3 mL injection, auto-injector Inject 0.3 mLs (0.3 mg) into the muscle as needed for anaphylaxis - Active ondansetron 4 mg disintegrating tablet take 1 tablet by oral route every [address] on top of the tongue where they will dissolve, then swallow 4 MG - Active duloxetine 20 mg capsule,delayed release take 1 capsule by oral route 2 times every day 20 MG - Active bupropion HCl XL 150 mg 24 hr tablet, extended release take 1 tablet by oral route every day 150 MG - Active CALCIUM CITRATE-VIT D3 (unknown strength) Not Available - Active Wal-itin D 10 mg-240 mg tablet,extended release take 1 tablet by oral route every day 1.00 tablet - Active diclofenac sodium 75 mg tablet,delayed release take 1 tablet by oral route 2 times every day 75 MG - Active pravastatin 20 mg tablet take 1 tablet by oral route every day 20 MG - Active Lyrica 150 mg capsule take 1 capsule by oral route 3 times every day 150 MG - Active hydrocodone 5 mg-acetaminophen 325 mg tablet take 1-2 tablets by oral route every 6 hours as needed for chronic pain - No Longer Active Procedures Procedure Date OFFICE/OUTPATIENT VISIT, EST INJ TRIGGER POINT, 09/18 [facility] OFFICE/OUTPATIENT VISIT, EST Drug test def 8-14 classes Drug Urine Toxology With Chromatography INJ TRIGGER POINT, 09/18 [facility] Kenalog Triamcinolone acetonide inj OFFICE/OUTPATIENT VISIT, EST Drug test def 8-14 classes Drug Urine Toxology With Chromatography Foll-up eval q3mo opiod tx OFFICE VISIT, EST TELEMEDICINE Foll-up eval q3mo opiod tx OFFICE VISIT, EST TELEMEDICINE Drug Urine Toxology With Chromatography Drug test def 8-14 classes INJ TRIGGER POINT, 1/2 [facility] PT-FOCUSED HLTH RISK ASSMT Foll-up eval q3mo opiod tx OFFICE/OUTPATIENT VISIT, EST Foll-up eval q3mo opiod tx OFFICE VISIT, EST TELEMEDICINE Foll-up eval q3mo opiod tx OFFICE VISIT, EST TELEMEDICINE Drug Urine Toxology With Chromatography Drug test def 8-14 classes INJ TRIGGER POINT, / MUSCL Kenalog Triamcinolone acetonide inj Foll-up eval [...] q3mo opiod tx OFFICE VISIT, EST TELEMEDICINE INJECT TRIGGER POINTS, =/> 3 Kenalog Triamcinolone [...] VISIT, EST TELEMEDICINE OFFICE VISIT, EST TELEMEDICINE Oct-19-20 20 Foll-up eval q3mo opiod tx Botulinum toxin a per unit Destroy Nerve Face For Chronic Migraine OFFICE VISIT, EST TELEMEDICINE 20 Foll-up eval q3mo opiod tx INJ TRIGGER POINT, 1/2 [facility] Kenalog Triamcinolone acetonide inj Foll-up eval q3mo opiod tx OFFICE/OUTPATIENT VISIT, EST OFFICE VISIT, EST TELEMEDICINE 20 Foll-up eval q3mo opiod tx OFFICE VISIT, EST TELEMEDICINE 20 Foll-up eval q3mo opiod tx Botulinum toxin a per unit Destroy Nerve Face For Chronic Migraine Botulinum toxin a per unit INJ TRIGGER POINT, /2 MUSCL Kenalog Triamcinolone acetonide inj OFFICE/OUTPATIENT VISIT, [...] Diagnoses Date Provider Providers Copied on Encounter [facility], [address] [place] [address], [id number] , [place] tel:[phone] Telehealth No Information 4 Jacquelyn Gupta. 1455 [facility] [address], [id number], [place]. tel:[phone] OFFICE/OUTPAT IENT VISIT, [facility], [address] [place] [address], [id number] , [place] tel:[phone] [facility] low back pain (chief complaint) Chronic pain syndromePostlami nectomy syndrome, not elsewhere classifiedMyalgi a, other siteLong term (current) use of opiate analgesic 4 Leatha Rosette. [address] [facility] 11, [facility] [address], [place], [id number], [place]. tel:[phone] Referring Provider: George Zurita, [address] [facility], [address] . tel:[phone] OFFICE/OUTPAT IENT VISIT, [facility], [address] [place] [address], [id number] , [place] tel:[phone] [facility] low back pain (chief complaint) Chronic pain syndromePostlami nectomy syndrome, not elsewhere classifiedMyalgi a, other siteLong term (current) use of opiate analgesicEncount er for therapeutic drug level monitoring 4 Jin Summers. [address] [facility] [address], [place], [place], [id number], [place]. tel:[phone] Referring Provider: George Zurita, [address] [place] [address] [place], [address] . tel:[phone] OFFICE/OUTPAT IENT VISIT, EST [facility], [address] [place] [address] [place], [id number] , [place] tel:[phone] [facility] [place] bilateral hip pain (chief complaint) Chronic migraine without aura, intractable, without status migrainosusChron ic pain syndromeTrochant jatin bursitis, right hipMyalgia, other sitePostlaminect asuncion syndrome, not elsewhere classifiedLong term (current) use of opiate analgesicEncount er for therapeutic drug level monitoring 3 Valladares Alonso. 1455 [facility] [address], [place], [id number], [place]. tel:[phone] Referring Provider: George Zurita, [address] [place] [address] [place], [address] . tel:[phone] [facility], [address] [place] [address] [place], [id number] , [place] [phone] [facility] No Information 3 Jacquelyn Gupta. 1455 [facility] [address], [place], [place], [id number], [place]. tel:[phone] Referring Provider: George Zurita, [address] [place] [address] [place], [address] . tel:[phone] [facility], [address] [place] [address] [place], [id number] , [place] [phone] Telehealth No Information 3 Vanessa Harrison. [address] [place] [address] [place], [id number], [place]. tel:[phone] OFFICE VISIT, EST TELEMEDICINE [facility], [address] [place] [address] [place], [place], [id number] , [place] tel:[phone] [facility] bilateral hip pain (chief complaint) Chronic migraine without aura, intractable, without status migrainosusChron ic pain syndromeTrochant jatin bursitis, right hipMyalgia, other sitePostlaminect asuncion syndrome, not elsewhere classifiedLong term (current) use of opiate analgesic 3 Valladaresgreg Gupta. [address] [facility] [address], [place], [place], [id number], [place]. tel:[phone] Referring Provider: George Zurita, [address] [place] [address] [place], [address] . tel:[phone] OFFICE VISIT, EST TELEMEDICINE [facility], [address] [place] [address], [id number] , [place] tel:[phone] [facility] bilateral hip pain (chief complaint) Chronic migraine without aura, intractable, without status migrainosusChron ic pain syndromeTrochant jatin bursitis, right hipMyalgia, other sitePostlaminect asuncion syndrome, not elsewhere classifiedLong term (current) use of opiate analgesic 3 Valladares Alonso. [address] [place] [address] [address], [place], [id number], [place]. tel:[phone] Referring Provider: George Zurita, [address] [place] [address] [place], [address] . tel:[phone] [facility], [address] [place] [address], [id number] , [place] tel:[phone] [facility] No Information 3 Valladares Alonso. [address] [place] [address] [address], [place], [id number], [place]. tel:[phone] OFFICE/OUTPAT IENT VISIT, EST [facility], [address] [place] [address], [id number] , [place] [phone] [facility] bilateral hip pain (chief complaint) Chronic migraine without aura, intractable, without status migrainosusChron ic pain syndromeTrochant jatin bursitis, right hipMyalgia, other sitePostlaminect asuncion syndrome, not elsewhere classifiedLong term (current) use of opiate analgesicEncount er for therapeutic drug level monitoringEncoun ter for screening for other disorder 3 Jacquelyn Lyleel. 1455 [facility] [address], [place], [id number], [place]. tel:[phone] Referring Provider: George Zurita, [address] [place] [address] [place], [address] . tel:[phone] OFFICE VISIT, EST TELEMEDICINE [facility], [address] [place] [address], [id number] , [place] tel:[phone] [facility] Hip pain (chief complaint) Chronic migraine without aura, intractable, without status migrainosusChron ic pain syndromeTrochant jatin bursitis, right hipMyalgia, other sitePostlaminect asuncion syndrome, not elsewhere classifiedLong term (current) use of opiate analgesic 2 Tigre Eva. [address] [facility] [address], [id number], [place]. tel:[phone] Referring Provider: George Zurita, [address] [place] [address] [place], [address] . tel:[phone] OFFICE VISIT, [facility] TELEMEDICINE [facility], [address] [place] [address], [id number] , [place] tel:[phone] [facility] bilateral hip pain (chief complaint) Chronic migraine without aura, intractable, without status migrainosusChron ic pain syndromeTrochant jatin bursitis, right hipMyalgia, other sitePostlaminect asuncion syndrome, not elsewhere classifiedLong term (current) use of opiate analgesic 2 Tigre Eva. [address] [facility] 11 [facility] [address], [place], [id number], [place]. tel:[phone] Referring Provider: George Zurita, [address] [facility] [place], [address] . tel:[phone] [facility], [address] [place] [address], [id number] , [place] tel: [phone] [facility] [place] No Information Sep-0 2 Jacquelyn Gupta. 1455 [facility] [address], [place], [id number], [place]. tel:[phone] OFFICE/OUTPAT IENT VISIT, [facility], [address] [place] [address], [id number] , [place] tel: [phone] [facility] bilateral hip pain (chief complaint) Chronic migraine without aura, intractable, without status migrainosusChron ic pain syndromeTrochant jatin bursitis, right hipMyalgia, other sitePostlaminect asuncion syndrome, not elsewhere classifiedLong term (current) use of opiate analgesic Sep-0 2 Valladaresgreg Gupta. [address] [place] [address], [id number], [place]. tel:[phone] Referring Provider: George Zurita, [address] [place] [address], [address] . tel:[phone] OFFICE VISIT, [facility] TELEMEDICINE [facility], [address] [place] [address], [id number] , [place] tel: [phone] [facility] Hip Pain (chief complaint) Chronic migraine without aura, intractable, without status migrainosusChron ic pain syndromeTrochant jatni bursitis, right hipMyalgia, other sitePostlaminect asuncion syndrome, not elsewhere classifiedLong term (current) use of opiate analgesic Nov-2 2 Valladares Alonso. [address] [place] [address] [address], [place], [id number], [place]. tel:[phone] [facility], [address] [place] [address], [id number] , [place] tel:[phone] [facility] Chronic migraine without aura, intractable, without status migrainosus Feb- 2 Valladaresdony Gupta. 1455 [facility] [address], [place], [place], [id number], [place]. tel: [phone] Referring Provider: George Zurita, [address] [place] [address] [place], [address] . tel:[phone] OFFICE VISIT, EST TELEMEDICINE [facility], [address] [place] [address], [id number] , [place] tel: [phone] [facility] Hip Pain (chief complaint) Chronic pain syndromePostlami nectomy syndrome, not elsewhere classifiedTrocha nteric bursitis, right hipLong term (current) use of opiate analgesicChronic migraine without aura, intractable, without status migrainosusMyalg ia, other site 2 Jacquelyn Gupta. [address] [place] [address] [address], [place], [id number], [place]. tel: [phone] OFFICE VISIT, EST TELEMEDICINE [facility], [address] [place] [address], [id number] , [place] tel: [phone] [facility] bilateral hip pain (chief complaint) Chronic pain syndromePostlami nectomy syndrome, not elsewhere classifiedTrocha nteric bursitis, right hipLong term (current) use of opiate analgesicChronic migraine without aura, intractable, without status migrainosusMyalg ia, other site 1 Jacquelyn Gupta. [address] [place] [address] [address], [place], [id number], [place]. tel: [phone] [facility], [address] [place] [address], [id number] , [place] tel: [phone] [facility] Chronic migraine without aura, intractable, without status migrainosus 1 Jacquelyn Gupta. [address] [place] [address] [address], [place], [id number], [place]. tel:[phone] Referring Provider: George Zurita, [address] [place] [address] [place], [address] . tel:[phone] OFFICE VISIT, EST TELEMEDICINE [facility], [address] [place] [address], [id number] , [place] tel: [phone] [facility] bilateral hip pain (chief complaint) Chronic pain syndromePostlami nectomy syndrome, not elsewhere classifiedTrocha nteric bursitis, right hipLong term (current) use of opiate analgesicChronic migraine without aura, intractable, without status migrainosusMyalg ia, other site 1 Valladaresgreg Gupta. [address] [place] [address] [address], [place], [id number], [place]. tel:[phone] OFFICE VISIT, EST TELEMEDICINE [facility], [address] [place] [address], [id number] , [place] tel:[phone] [facility] Leg Pain (chief complaint) Chronic pain syndromePostlami nectomy syndrome, not elsewhere classifiedTrocha nteric bursitis, right hipLong term (current) use of opiate analgesicChronic migraine without aura, intractable, without status migrainosusMyalg ia, other site 0 1 Valladares Alonso. [address] [place] [address] 11 [facility] [address], [place], [id number], [place]. tel:[phone] Referring Provider: George Zurita, [address] [place] [address], [address] . tel:[phone] [facility], [address] [place] [address], [id number] , [place] tel:[phone] [facility] Postlaminectomy syndrome, not elsewhere classified 1 Jacquelyn Gupta. [address] [place] [address] [address], [place], [id number], [place]. [phone] Referring Provider: George Zurita, [address] [place] [address], [address] . tel:[phone] OFFICE/OUTPAT IENT VISIT, [facility], [address] [place] [address], [id number] , [place] tel:[phone] [facility] right leg pain (chief complaint) Postlaminectomy syndrome, not elsewhere classifiedChroni c pain syndromeTrochant jatin bursitis, right hipLong term (current) use of opiate analgesicChronic migraine without aura, intractable, without status migrainosusMyalg ia, other site 1 Valladaresgreg Lyleel. [address] [place] [address], [id number], . tel:[phone] Referring Provider: George Zurita, [address] [place] [address] [place], [address] . tel:[phone] [facility], [address] [place] [address], [id number] , [place] tel:[phone] [facility] Chronic migraine without aura, intractable, without status migrainosus 1 Valladares Alonso. [address] [place] [address], [id number], [place]. tel:[phone] Referring Provider: George Zurita, [address] [place] [address] [place], [address] . tel:[phone] OFFICE VISIT, [facility], [address] [place] [address], [id number] , [place] [phone] [facility] Leg Pain (chief complaint) Postlaminectomy syndrome, not elsewhere classifiedChroni c pain syndromeTrochant jatin bursitis, right hipLong term (current) use of opiate analgesicChronic migraine without aura, intractable, without status migrainosusMyalg ia, other site 1 Jacquelyn Gupta. [address] [place] [address] 11 [facility] [address], [place], [id number], [place]. tel:[phone] Referring Provider: George Zurita, [address] [place], [place] [address], [address] . tel:[phone] OFFICE/OUTPAT IENT VISIT, [facility], [address] [place] [address], [id number] , [place] [phone] [facility] Leg Pain (chief complaint) Postlaminectomy syndrome, not elsewhere classifiedChroni c pain syndromeTrochant jatin bursitis, right hipLong term (current) use of opiate analgesicChronic migraine without aura, intractable, without status migrainosusMyalg ia, other site May- 1 Jacquelyn Gupta. [address] [place] [address], [id number], . tel:[phone] Referring Provider: George Zurita, [address] [place], [place] [address], [address] . tel:[phone] OFFICE VISIT, [facility] TELEMEDICINE [facility], [address] [place] [address], [id number] , [place] [phone] [facility] Leg Pain (chief complaint) Chronic migraine without aura, intractable, without status migrainosusMyalg ia, other sitePostlaminect asuncion syndrome, not elsewhere classifiedChroni c pain syndromeTrochant jatin bursitis, right hipLong term (current) use of opiate analgesic Apr- 1 Jacquelyn Gupta. [address] [place] [address], [id number], [place]. tel:[phone] Referring Provider: George Zurita, [address] [place], [place] [address], [address] . tel:[phone] [facility], [address] [place] [address], [id number] , [place] tel:[phone] [facility] Chronic migraine without aura, intractable, without status migrainosus Apr-0 1 Jacquelyn Gupta. [address] [place] [address], [id number], [place]. tel:[phone] Referring Provider: George Zurita, [address] [place], [place] [address], [address] . tel:[phone] OFFICE VISIT, [facility] TELEMEDICINE [facility], [address] [place] [address], [id number] , [place] tel:[phone] [facility] Leg Pain (chief complaint) Chronic migraine without aura, intractable, without status migrainosusMyalg ia, other sitePostlaminect asuncion syndrome, not elsewhere classifiedTrocha nteric bursitis, right hipChronic pain syndromeLong term (current) use of opiate analgesic 1 Valladaresgreg Lyelel. [address] [place] [address], [id number], [place]. tel:[phone] Referring Provider: George Zurita, [address] [place] [address] [place], [address] . tel:[phone] OFFICE VISIT, [facility], [address] [place] [address], [id number] , [place] tel:[phone] [facility] Leg Pain (chief complaint) Chronic migraine without aura, intractable, without status migrainosusMyalg ia, other sitePostlaminect asuncion syndrome, not elsewhere classifiedTrocha nteric bursitis, right hipChronic pain syndromeLong term (current) use of opiate analgesic 1 Jacquelyn Gupta. [address] [place] [address], [id number], [place]. tel:[phone] Referring Provider: George Zurita, [address] [place] [address] [place], [address] . tel:[phone] OFFICE/OUTPAT IENT VISIT, [facility], [address] [place] [address], [id number] , [place] [phone] [facility] Leg Pain (chief complaint) Chronic migraine without aura, intractable, without status migrainosusMyalg ia, other sitePostlaminect asuncion syndrome, not elsewhere classifiedTrocha nteric bursitis, right hipChronic pain syndromeLong term (current) use of opiate analgesic 1 Jacquelyn Gupta. [address] [place] [address], [id number], [place]. tel:[phone] Referring Provider: George Zurita, [address] [place] [address] [place], [address] . tel:[phone] OFFICE VISIT, [facility], [address] [place] [address], [id number] , [place] tel:[phone] [facility] Leg Pain (chief complaint) Chronic migraine without aura, intractable, without status migrainosusMyalg ia, other sitePostlaminect asuncion syndrome, not elsewhere classifiedTrocha nteric bursitis, right hipChronic pain syndromeLong term (current) use of opiate analgesic 1 Jacquelyn Gupta. [address] [place] [address], [place], [id number], [place]. tel:[phone] Referring Provider: George Zurita, [address] [place], [place] [address], [address] . tel:[phone] [facility], [address] [place] [address] [place], [id number] , [place] tel:[phone] [facility] No Information 1 Jacquelyn Gupta. [address] [place] [address], [id number], [place]. tel:[phone] Referring Provider: George Zurita, [address] [place] [address] [place], [address] . tel:[phone] [facility], [address] [place] [address], [id number] , [place] tel:[phone] [facility] Chronic migraine without aura, intractable, without status migrainosus 1 Jacquelyn Gupta. [address] [place] [address], [id number], [place]. tel:[phone] Referring Provider: George Zurita, [address] [place] [address] [place], [address] . tel:[phone] OFFICE VISIT, EST TELEMEDICINE [facility], [address] [place] [address] [place], [id number] , [place] tel:[phone] [facility] Leg Pain (chief complaint) Myalgia, other siteChronic migraine without aura, intractable, without status migrainosusPostl aminectomy syndrome, not elsewhere classifiedChroni c pain syndromeTrochant jatin bursitis, right hipLong term (current) use of opiate analgesic Aug-3 0- 0 Valladares Alonso. [facility], [place], [place], [id number], [place]. tel:[phone] Referring Provider: George Zurita, [address] [place] [address] [place], [address] . tel:[phone] OFFICE VISIT, [facility] TELEMEDICINE [facility], [address] [place] [address], [id number] , [place] [phone] [facility] Leg Pain (chief complaint) Myalgia, other siteChronic migraine without aura, intractable, without status migrainosusPostl aminectomy syndrome, not elsewhere classifiedChroni c pain syndromeTrochant jatin bursitis, right hipLong term (current) use of opiate analgesic Jul- 0 Valladares Alonso. [address] [place] [address] [address], [place], [place], [id number], [place]. tel:[phone] Referring Provider: George Zurita, [address] [place] [address] [place], [address] . tel:[phone] OFFICE VISIT, [facility] TELEMEDICINE [facility], [address] [place] [address], [id number] , [place] [phone] [facility] Leg Pain (chief complaint) Chronic migraine without aura, intractable, without status migrainosusPostl aminectomy syndrome, not elsewhere classifiedChroni c pain syndromeTrochant jatin bursitis, right hipLong term (current) use of opiate analgesicMyalgia , other site 0 Valladares Alonso. [address] [place] [address] [address], [place], [place], [id number], [place]. tel:[phone] Referring Provider: George Zurita, [address] [place] [address] [place], [address] . tel:[phone] [facility], [address] [place] [address], [id number] , [place] [phone] [facility] Chronic migraine without aura, intractable, without status migrainosus 2 0 Jacquelyn Gupta. [address], [place], [place], [id number], [place]. tel:[phone] Referring Provider: George Zurita, [address] [facility] [place], [address] . tel:[phone] OFFICE VISIT, [facility] TELEMEDICINE [facility], [address] [place] [address], [id number] , [place] [phone] [facility] Leg Pain (chief complaint) Chronic migraine w/o aura, intractable, w/o stat migrPostlaminect asuncion syndrome, not elsewhere classifiedChroni c pain syndromeTrochant jatin bursitis, right hipLong term (current) use of opiate analgesicMyalgia , other site 0 Jacquelyn Gupta. [address] [facility] [address], [place], [place], [id number], [place]. tel:[phone] Referring Provider: George Zurita, [address] [place] [address] [place], [address] . tel:[phone] OFFICE/OUTPAT IENT VISIT, [facility], [address] [place] [address], [id number] , [place] tel:[phone] [facility] Leg Pain (chief complaint) Chronic migraine w/o aura, intractable, w/o stat migrPostlaminect asuncion syndrome, not elsewhere classifiedChroni c pain syndromeTrochant jatin bursitis, right hipLong term (current) use of opiate analgesicMyalgia , other site 0 Valladaresgreg Gupta. [address], [place], [place], [id number], [place]. tel:[phone] Referring Provider: George Zurita, [address] [place] [address] [place], [address] . tel:[phone] OFFICE VISIT, [facility], [address] [place] [address], [id number] , [place] tel:[phone] [facility] Leg Pain (chief complaint) Chronic migraine w/o aura, intractable, w/o stat migrPostlaminect asuncion syndrome, not elsewhere classifiedChroni c pain syndromeTrochant jatin bursitis, right hipLong term (current) use of opiate analgesic 0 Valladares Alonso. [address] [place] [address] [address], [place], [place], [id number], . [phone] Referring Provider: George Zurita, [address] [place] [address] [place], [address] . tel:[phone] OFFICE VISIT, EST TELEMEDICINE [facility], [address] [place] [address], [id number] , [place] tel: [phone] [facility] Leg Pain (chief complaint) Chronic migraine w/o aura, intractable, w/o stat migrPostlaminect asuncion syndrome, not elsewhere classifiedChroni c pain syndromeTrochant jatin bursitis, right hipLong term (current) use of opiate analgesic 0 Valladares Alonso. [address] [place] [address] [address], [place], [id number], [place]. [phone] Referring Provider: George Zurita, [address] [place] [address] [place], [address] . tel:[phone] [facility], [address] [place] [address] [place], [id number] , [place] tel: [phone] [facility] Chronic migraine w/o aura, intractable, w/o stat migr Feb- 0 Valladares Alonso. [address] [place] [address] [address], [place], [id number], [place]. [phone] Referring Provider: George Zurita, [address] [place] [address] [place], [address] . tel:[phone] OFFICE/OUTPAT IENT VISIT, EST [facility], [address] [place] [address] [place], [place], [id number] , [place] tel: [phone] [facility] (chief complaint) Postlaminectomy syndrome, not elsewhere classifiedTrocha nteric bursitis, right hipChronic migraine w/o aura, intractable, w/o stat migrLong term (current) use of opiate analgesicChronic pain syndromeMyalgia, other site 0 Jacquelyn Gupta. [address] [facility] [address], [place], [place], [id number], [place]. tel:[phone] Referring Provider: George Zurita, [address] [place] [address] [place], [address] . tel:[phone] OFFICE VISIT, EST TELEMEDICINE [facility], [address] [place] [address], [id number] , [place] tel:[phone] [facility] Leg Pain (chief complaint) headache (chief complaint) Postlaminectomy syndrome, not elsewhere classifiedTrocha nteric bursitis, right hipChronic migraine w/o aura, intractable, w/o stat migrLong term (current) use of opiate analgesic 0 Jacquelyn Gupta. [address] [place] [address] [address], [place], [id number], [place]. tel:[phone] Referring Provider: George Zurita, [address] [place], [place] [address], [address] . tel:[phone] OFFICE VISIT, EST TELEMEDICINE [facility], [address] [place] [address], [id number] , [place] tel:[phone] [facility] Leg Pain (chief complaint) Postlaminectomy syndrome, not elsewhere classifiedTrocha nteric bursitis, right hipChronic migraine w/o aura, intractable, w/o stat migrLong term (current) use of opiate analgesic 0 Valladares Alonso. [address] [facility] [address], [place], [id number], [place]. tel:[phone] Referring Provider: George Zurita, [address] [place], [place] [address], [address] . tel:[phone] OFFICE VISIT, EST TELEMEDICINE [facility], [address] [place] [address], [id number] , [place] [phone] [facility] Leg Pain (chief complaint) Postlaminectomy syndrome, not elsewhere classifiedTrocha nteric bursitis, right hipChronic migraine w/o aura, intractable, w/o stat migrLong term (current) use of opiate analgesic Nov-3 0- 0 Valladaresgreg Lyleel. [address], [place], [place], [id number], [place]. tel:[phone] Referring Provider: George Zurita, [address] [place], [place] [address], [address] . tel:[phone] [facility], [address] [place] [address], [id number] , [place] tel:[phone] [facility] No Information 0 Glenys Mcfarlane. [facility], [address] [facility] [address], [place], [address], [place]. tel:[phone] Referring Provider: George Zurita, [address] [place] [address] [place], [address] . tel:[phone] OFFICE/OUTPAT IENT VISIT, [facility], [address] [place] [address], [id number] , [place] [phone] [facility] Leg Pain (chief complaint) halfway (current) use of opiate analgesicPostlam inectomy syndrome, not elsewhere classifiedTrocha nteric bursitis, right hipChronic migraine w/o aura, intractable, w/o stat migr Feb-0 - 0 Jacquelyn Gupta. [address] [place] [address] [address], [place], [place], [id number], [place]. tel:[phone] Referring Provider: George Zurita, [address] [place] [address] [place], [address] . tel:[phone] [facility], [address] [place] [address], [id number] , [place] tel:[phone] [facility] Chronic migraine w/o aura, intractable, w/o stat migr Dec-3 0-201 9 Valladares Alonso. [address] [place] [address] [address], [place], [id number], [place]. tel:[phone] Referring Provider: George Zurita, [address] [place] [address] [place], [address] . tel:[phone] OFFICE/OUTPAT IENT VISIT, [facility], [address] [place] [address], [id number] , [place] tel: [phone] [facility] Leg Pain (chief complaint) continuous churn buttermaker (current) use of opiate analgesicPostlam inectomy syndrome, not elsewhere classifiedTrocha nteric bursitis, right hipChronic migraine w/o aura, intractable, w/o stat migr Dec-0 2-201 9 Valladares Alonso. [address] [place] [address], [id number], [place]. [phone] Referring Provider: George Zurita, [address] [place], [place] [address], [address] . tel:[phone] OFFICE/OUTPAT IENT VISIT, [facility], [address] [place] [address], [id number] , [place] tel: [phone] [facility] Leg Pain (chief complaint) halfway (current) use of opiate analgesicPostlam inectomy syndrome, not elsewhere classifiedTrocha nteric bursitis, right hipChronic migraine w/o aura, intractable, w/o stat migr Nov-0 6-201 9 Valladares Alonso. [address] [place] [address], [id number], [place]. tel:[phone] Referring Provider: George Zurita, [address] [place] [address] [place], [address] . tel:[phone] OFFICE/OUTPAT IENT VISIT, [facility], [address] [place] [address], [id number] , [place] tel: [phone] [facility] Leg Pain (chief complaint) Chronic pain syndromeChronic migraine w/o aura, intractable, w/o stat migrTrochanteric bursitis, right hipPostlaminecto my syndrome, not elsewhere classifiedLong term (current) use of opiate analgesic Oct 0-201 9 Jacquelyn Gupta. [address] [place] [address] [address], [place], [id number], [place]. tel:[phone] Referring Provider: George Zurita, [address] [place], [place] [address], [address] . [phone] [facility], [address] [place] [address], [id number] , [place] tel:[phone] [facility] Chronic migraine w/o aura, intractable, w/o stat migr Sep-2 3 9 Jacquelyn Gupta. [address] [place] [address] [address], [place], [id number], [place]. tel:[phone] Referring Provider: George Zurita, [address] [place] [address] [place], [address] . tel:[phone] [facility], [address] [place] [address], [id number] , [place] tel:[phone] [facility] No Information May-0 - 9 Glenys Mcfarlane. [facility], [address] [facility] [address] [facility] [address], [place], [address], [place]. tel:[phone] Referring Provider: George Zurita, [address] [place], [place] [address], [address] . tel:[phone] OFFICE/OUTPAT IENT VISIT, EST [facility], [address] [place] [address], [id number] , [place] tel:[phone] [facility] Leg Pain (chief complaint) Chronic pain syndromeTrochant jatin bursitis, right hipChronic migraine w/o aura, intractable, w/o stat migrPostlaminect asuncion syndrome, not elsewhere classifiedLong term (current) use of opiate analgesic 9 Jacquelyn Gupta. [address], [place], [place], [id number], [place]. tel:[phone] Referring Provider: George Zurita, [address] [facility] [place], [address] . tel:[phone] OFFICE CONSULTATION [facility], [address] [place], [place], [id number] , [place] tel:[phone] [facility] [place] Leg Pain (chief complaint) Chronic pain syndromeTrochant jatin bursitis, right hipChronic migraine w/o aura, intractable, w/o stat migrPostlaminect asuncion syndrome, not elsewhere classifiedEncoun ter for therapeutic drug level monitoringLong term (current) use of opiate analgesic Veronicamary ann Mcfarlane. [facility], [address], [place], [address], [place]. tel:[phone] Referring Provider: Tan Chapa, [facility] [address], [address], [place], [address]. tel:[phone] Family History Family Member Type Diagnosis Age At Onset Father Problem (finding) back pain Payers Payer name Insurance type Covered alliance party ID Authoriza timinnie(s) [facility] [id number] Social History Type Description Quantity Date Captured Comments Sex Female Smoking Status No Information Chief Complaint And Reason For Visit No Information Reason For Referral Reason For Referral No Information Plan Of Treatment Date Type Action Status Goal SAUSAGE INSPECTOR Scanned. Due on 020 due Goal FIBER GLASS WORKER Paperwork. Due on due Goal AST (SGOT). Due on [address]-Colonography. Due on due Goal FIT. Due on due Goal Hepatitis C scre ening. Due on due Goal Lipid panel. Due on 024 due Goal PHQ-9. Due on du e Goal Height. Due on d ue Goal Review Allergy List. Due on due Goal Medication Recon ciliation. Due on due Goal Zoster vaccine ( 1st). Due on due Goal Update Social Hi story. Due on due Goal Weight. Due on d ue Goal Tobacco Use. Due on 022 due Goal Unhealthy drug u se screening. Due on due Goal FIT-DNA. Due on due Goal Order Annual PT. Due on due Goal UDT. Due on due Goal Creatinine. Due on due Goal ALT (SGPT). Due on due Goal OARS. Due on due Goal Order Annual PT. Due on due Goal Zoster vaccine ( 1st). Due on due Goal Lipid panel. Due on due Goal OARS. Due on due Goal ALT (SGPT). Due on due Goal FIBER GLASS WORKER Paperwork. Due on due Goal UDT. Due on due Goal SAUSAGE INSPECTOR Scanned. Due on due Goal AST (SGOT). Due on due Goal Creatinine. Due on due Goal FIT-DNA. Due on due Goal Tobacco Use. Due on due Goal PHQ-9. Due on du e Goal Hepatitis C scre ening. Due on due Goal Unhealthy drug u se screening. Due on due Goal CT-Colonography. Due on due Goal HPV. Due on due Goal FIT. Due on due Goal Medication Recon ciliation. Due on due Goal Height. Due on d ue Goal Update Social Hi story. Due on due Goal Review Allergy List. Due on due Goal Weight. Due on d ue Goal Lifestyle education regardin g diet completed Goal Creatinine. Due on due Goal FIBER GLASS WORKER Paperwork. Due on due Goal Tobacco Use. Due on due Goal HPV. Due on due Goal Update Social Hi story. Due on due Goal Zoster vaccine ( 1st). Due on due Goal Medication Recon ciliation. Due on due Goal Unhealthy drug u se screening. Due on due Goal FIT-DNA. Due on due Goal Review Allergy List. Due on due Goal Hepatitis C scre ening. Due on due Goal Height. Due on d ue Goal Lipid panel. Due on due Goal PHQ-9. Due on du e Goal FIT. Due on due Goal Weight. Due on d ue Goal CT-Colonography. Due on due Goal ALT (SGPT). Due on due Goal Order Annual PT. Due on due Goal UDT. Due on due Goal AST (SGOT). Due on due Goal SAUSAGE INSPECTOR Scanned. Due on due Goal OARS. Due on due Goal SAUSAGE INSPECTOR Scanned. Due on due Goal Creatinine. Due on due Goal Zoster vaccine ( 1st). Due on due Goal Lipid panel. Due on due Goal Height. Due on d ue Goal Medication Recon ciliation. Due on due Goal FIT. Due on due Goal HPV. Due on due Goal Tobacco Use. Due on due Goal PHQ-9. Due on du e Goal UDT. Due on due Goal FIBER GLASS WORKER Paperwork. Due on due Goal AST (SGOT). Due on due Goal Order Annual PT. Due on due Goal OARS. Due on due Goal ALT (SGPT). Due on due Goal Update Social Hi story. Due on due Goal Review Allergy List. Due on due Goal CT-Colonography. Due on due Goal Hepatitis C scre ening. Due on due Goal Weight. Due on d ue Goal FIT-DNA. Due on due Goal Unhealthy drug u se screening. Due on due Goal Order Annual PT. Due on due Goal Zoster vaccine ( 1st). Due on due Goal Weight. Due on d ue Goal FIBER GLASS WORKER Paperwork. Due on due Goal AST (SGOT). Due on due Goal SAUSAGE INSPECTOR Scanned. Due on due Goal UDT. Due on due Goal OARS. Due on due Goal ALT (SGPT). Due on due Goal Creatinine. Due on due Goal Tobacco Use. Due on due Goal Review Allergy List. Due on due Goal Hepatitis C scre ening. Due on due Goal CT-Colonography. Due on due Goal Unhealthy drug u se screening. Due on due Goal FIT. Due on due Goal HPV. Due on due Goal PHQ-9. Due on du e Goal Update Social Hi story. Due on due Goal Medication Recon ciliation. Due on due Goal Height. Due on d ue Goal Lipid panel. Due on 023 due Goal FIT-DNA. Due on due Goal SAUSAGE INSPECTOR Scanned. Due on 020 due Goal Tobacco Use. Due on 022 due Goal Zoster vaccine ( 1st). Due on due Goal Order Annual PT. Due on due Goal Creatinine. Due on due Goal AST (SGOT). Due on due Goal OARS. Due on due Goal UDT. Due on due Goal ALT (SGPT). Due on due Goal FIBER GLASS WORKER Paperwork. Due on due Goal Medication Recon ciliation. Due on due Goal CT-Colonography. Due on due Goal HPV. Due on due Goal Unhealthy drug u se screening. Due on due Goal FIT-DNA. Due on due Goal FIT. Due on due Goal Hepatitis C scre ening. Due on due Goal Update Social Hi story. Due on due Goal PHQ-9. Due on du e Goal Height. Due on d ue Goal Weight. Due on d ue Goal Lipid panel. Due on 023 due Goal Review Allergy List. Due on due Goal FIT-DNA. Due on due Goal FIT. Due on due Goal PHQ-9. Due on du e Goal CT-Colonography. Due on due Goal Review Allergy List. Due on due Goal Height. Due on d ue Goal Weight. Due on d ue Goal Medication Recon ciliation. Due on due Goal Update Social Hi story. Due on due Goal Tobacco Use. Due on 022 due Goal Unhealthy drug u se screening. Due on due Goal Hepatitis C scre ening. Due on due Goal HPV. Due on due Goal Zoster vaccine ( 1st). Due on due Goal AST (SGOT). Due on due Goal Order Annual PT. Due on due Goal Creatinine. Due on due Goal FIBER GLASS WORKER Paperwork. Due on due Goal UDT. Due on due Goal SAUSAGE INSPECTOR Scanned. Due on due Goal OARS. Due on due Goal ALT (SGPT). Due on due Goal Lipid panel. Due on due Goal FIBER GLASS WORKER Paperwork. Due on due Goal Hepatitis C scre ening. Due on due Goal Tobacco Use. Due on due Goal SAUSAGE INSPECTOR Scanned. Due on due Goal CT-Colonography. Due on due Goal Lipid panel. Due on due Goal Unhealthy drug u se screening. Due on due Goal PHQ-9. Due on du e Goal Height. Due on d ue Goal Review Allergy List. Due on due Goal HPV. Due on due Goal Weight. Due on d ue Goal Medication Recon ciliation. Due on due Goal Update Social Hi story. Due on due Goal Zoster vaccine ( 1st). Due on due Goal FIT. Due on due Goal FIT-DNA. Due on due Goal Creatinine. Due on due Goal Order Annual PT. Due on due Goal ALT (SGPT). Due on due Goal AST (SGOT). Due on due Goal OARS. Due on due Goal UDT. Due on due Goal Zoster vaccine ( 1st). Due on due Goal Update Social Hi story. Due on due Goal Height. Due on d ue Goal FIT-DNA. Due on due Goal Lipid panel. Due on due Goal PHQ-9. Due on du e Goal Unhealthy drug u se screening. Due on due Goal Review Allergy List. Due on due Goal Tobacco Use. Due on due Goal Medication Recon ciliation. Due on due Goal FIBER GLASS WORKER Paperwork. Due on due Goal ALT (SGPT). Due on due Goal HPV. Due on due Goal Weight. Due on d ue Goal FIT. Due on due Goal Hepatitis C scre ening. Due on due Goal CT-Colonography. Due on due Goal Order Annual PT. Due on due Goal OARS. Due on due Goal Creatinine. Due on due Goal UDT. Due on due Goal AST (SGOT). Due on due Goal SAUSAGE INSPECTOR Scanned. Due on due Goal Order Annual PT. Due on due Goal Medication Recon ciliation. Due on due Goal PHQ-9. Due on du e Goal UDT. Due on due Goal Lipid panel. Due on due Goal FIT-DNA. Due on due Goal Height. Due on d ue Goal ALT (SGPT). Due on due Goal FIBER GLASS WORKER Paperwork. Due on due Goal Creatinine. Due on due Goal OARS. Due on due Goal SAUSAGE INSPECTOR Scanned. Due on due Goal AST (SGOT). Due on due Goal Unhealthy drug u se screening. Due on due Goal Update Social Hi story. Due on due Goal Tobacco Use. Due on due Goal Hepatitis C scre ening. Due on due Goal CT-Colonography. Due on due Goal Zoster vaccine ( 1st). Due on due Goal FIT. Due on due Goal Weight. Due on d ue Goal Review Allergy List. Due on due Goal HPV. Due on due Goal AST (SGOT). Due on due Goal CT-Colonography. Due on due Goal PHQ-9. Due on du e Goal Creatinine. Due on due Goal UDT. Due on due Goal Order Annual PT. Due on due Goal ALT (SGPT). Due on due Goal OARS. Due on due Goal SAUSAGE INSPECTOR Scanned. Due on due Goal FIBER GLASS WORKER Paperwork. Due on due Goal Tobacco Use. Due on due Goal Zoster vaccine ( 1st). Due on due Goal FIT-DNA. Due on due Goal Lipid panel. Due on due Goal Hepatitis C scre ening. Due on due Goal Height. Due on d ue Goal Update Social Hi story. Due on due Goal FIT. Due on due Goal Medication Recon ciliation. Due on due Goal HPV. Due on due Goal Weight. Due on d ue Goal Unhealthy drug u se screening. Due on due Goal Review Allergy List. Due on due Goal SAUSAGE INSPECTOR Scanned. Due on due Goal Unhealthy drug u se screening. Due on due Goal Zoster vaccine ( 1st). Due on due Goal UDT. Due on due Goal Order Annual PT. Due on due Goal FIBER GLASS WORKER Paperwork. Due on due Goal ALT (SGPT). Due on due Goal AST (SGOT). Due on due Goal Creatinine. Due on due Goal OARS. Due on due Goal Update Social Hi story. Due on due Goal Weight. Due on d ue Goal PHQ-9. Due on du e Goal Medication Recon ciliation. Due on due Goal Review Allergy List. Due on due Goal Height. Due on d ue Goal Tobacco Use. Due on due Goal CT-Colonography. Due on due Goal FIT. Due on due Goal FIT-DNA. Due on due Goal Hepatitis C scre ening. Due on due Goal HPV. Due on due Goal Lipid panel. Due on due Goal Order Annual PT. Due on due Goal SAUSAGE INSPECTOR Scanned. Due on due Goal AST (SGOT). Due on due Goal FIBER GLASS WORKER Paperwork. Due on due Goal Creatinine. Due on due Goal ALT (SGPT). Due on due Goal UDT. Due on due Goal OARS. Due on due Goal PHQ-9. Due on du e Goal Review Allergy List. Due on due Goal Height. Due on d ue Goal Medication Recon ciliation. Due on due Goal Weight. Due on d ue Goal Tobacco Use. Due on due Goal Update Social Hi story. Due on due Goal Height. Due on d ue Goal Medication Recon ciliation. Due on due Goal Weight. Due on d ue Goal Tobacco Use. Due on due Goal Update Social Hi story. Due on due Goal Order Annual PT. Due on due Goal SAUSAGE INSPECTOR Scanned. Due on due Goal AST (SGOT). Due on due Goal FIBER GLASS WORKER Paperwork. Due on due Goal Creatinine. Due on due Goal ALT (SGPT). Due on due Goal UDT. Due on due Goal OARS. Due on due Goal PHQ-9. Due on du e Goal Review Allergy List. Due on due Goal UDT. Due on due Goal OARS. Due on due Goal PHQ-9. Due on du e Goal Review Allergy List. Due on due Goal Height. Due on d ue Goal Medication Recon ciliation. Due on due Goal Weight. Due on d ue Goal Tobacco Use. Due on due Goal Update Social Hi story. Due on due Goal Order Annual PT. Due on due Goal SAUSAGE INSPECTOR Scanned. Due on due Goal AST (SGOT). Due on due Goal FIBER GLASS WORKER Paperwork. Due on due Goal Creatinine. Due on due Goal ALT (SGPT). Due on due Goal SAUSAGE INSPECTOR Scanned. Due on due Goal AST (SGOT). Due on due Goal FIBER GLASS WORKER Paperwork. Due on due Goal Order Annual PT. Due on due Goal ALT (SGPT). Due on due Goal UDT. Due on due Goal OARS. Due on due Goal PHQ-9. Due on du e Goal Review Allergy List. Due on due Goal Height. Due on d ue Goal Medication Recon ciliation. Due on due Goal Weight. Due on d ue Goal Tobacco Use. Due on due Goal Update Social Hi story. Due on due Goal Creatinine. Due on due Goal Weight. Due on d ue Goal Tobacco Use. Due on due Goal Update Social Hi story. Due on due Goal Order Annual PT. Due on due Goal SAUSAGE INSPECTOR Scanned. Due on due Goal AST (SGOT). Due on due Goal FIBER GLASS WORKER Paperwork. Due on due Goal Creatinine. Due on due Goal ALT (SGPT). Due on due Goal UDT. Due on due Goal OARS. Due on due Goal PHQ-9. Due on du e Goal Review Allergy List. Due on due Goal Height. Due on d ue Goal Medication Recon ciliation. Due on due Goal UDT. Due on due Goal OARS. Due on due Goal PHQ-9. Due on du e Goal Review Allergy List. Due on due Goal Height. Due on d ue Goal Medication Recon ciliation. Due on due Goal Weight. Due on d ue Goal Tobacco Use. Due on due Goal Update Social Hi story. Due on due Goal Order Annual PT. Due on due Goal SAUSAGE INSPECTOR Scanned. Due on due Goal AST (SGOT). Due on due Goal FIBER GLASS WORKER Paperwork. Due on due Goal Creatinine. Due on due Goal ALT (SGPT). Due on due Goal UDT. Due on due Goal OARS. Due on due Goal PHQ-9. Due on du e Goal Review Allergy List. Due on due Goal Height. Due on d ue Goal Medication Recon ciliation. Due on due Goal Weight. Due on d ue Goal Tobacco Use. Due on due Goal Order Annual PT. Due on due Goal SAUSAGE INSPECTOR Scanned. Due on due Goal AST (SGOT). Due on due Goal FIBER GLASS WORKER Paperwork. Due on due Goal Creatinine. Due on due Goal ALT (SGPT). Due on due Goal Update Social Hi story. Due on due Goal Order Annual PT. Due on due Goal SAUSAGE INSPECTOR Scanned. Due on due Goal AST (SGOT). Due on due Goal FIBER GLASS WORKER Paperwork. Due on due Goal Creatinine. Due on due Goal ALT (SGPT). Due on due Goal UDT. Due on due Goal OARS. Due on due Goal PHQ-9. Due on du e Goal Review Allergy List. Due on due Goal Height. Due on d ue Goal Medication Recon ciliation. Due on due Goal Weight. Due on d ue Goal Tobacco Use. Due on due Goal Update Social Hi story. Due on due Goal UDT. Due on due Goal OARS. Due on due Goal PHQ-9. Due on du e Goal Order Annual PT. Due on due Goal SAUSAGE INSPECTOR Scanned. Due on due Goal AST (SGOT). Due on due Goal FIBER GLASS WORKER Paperwork. Due on due Goal Creatinine. Due on due Goal ALT (SGPT). Due on due Goal Review Allergy List. Due on due Goal Height. Due on d ue Goal Medication Recon ciliation. Due on due Goal Weight. Due on d ue Goal Tobacco Use. Due on due Goal Update Social Hi story. Due on due Goal UDT. Due on due Goal OARS. Due on due Goal PHQ-9. Due on du e Goal Review Allergy List. Due on due Goal Height. Due on d ue Goal Medication Recon ciliation. Due on due Goal Weight. Due on d ue Goal Tobacco Use. Due on due Goal Update Social Hi story. Due on due Goal Order Annual PT. Due on due Goal SAUSAGE INSPECTOR Scanned. Due on due Goal AST (SGOT). Due on due Goal FIBER GLASS WORKER Paperwork. Due on due Goal Creatinine. Due on due Goal ALT (SGPT). Due on due Goal UDT. Due on due Goal OARS. Due on due Goal PHQ-9. Due on du e Goal Review Allergy List. Due on due Goal Height. Due on d ue Goal Medication Recon ciliation. Due on due Goal Weight. Due on d ue Goal Tobacco Use. Due on due Goal Update Social Hi story. Due on due Goal Order Annual PT. Due on due Goal SAUSAGE INSPECTOR Scanned. Due on due Goal AST (SGOT). Due on due Goal FIBER GLASS WORKER Paperwork. Due on due Goal Creatinine. Due on due Goal ALT (SGPT). Due on due Goal OARS. Due on due Goal UDT. Due on due Goal ALT (SGPT). Due on due Goal Creatinine. Due on due Goal FIBER GLASS WORKER Paperwork. Due on due Goal AST (SGOT). Due on due Goal SAUSAGE INSPECTOR Scanned. Due on due Goal Order Annual PT. Due on due Goal Update Social Hi story. Due on due Goal Tobacco Use. Due on 021 due Goal Weight. Due on d ue Goal Medication Recon ciliation. Due on due Goal Height. Due on d ue Goal Review Allergy List. Due on due Goal PHQ-9. Due on du e Referral Ordered: Kathy Glover -Family Medicine (related to Chronic migraine w/o aura, intractable, w/o stat migr) ordered Referral Referred To: Kathy Glover [address] [place] [address], [id number] [phone] Ordered: Referrals: Family Medicine. Kathy Glover ordered Future Order: Lab Order Drug Kasia t Def 22+ Classes ([id number]), Ordered on: Ordered Future Order: Lab Order COMPLIAN CE DRUG ANALYSIS, URINE, WITH MED REPORT ([id number]), Ordered on: Ordered Future Order: Lab Order Drug Kasia t Def 22+ Classes ([id number]), Ordered on: Ordered History Of Present Illness Encounter Date Complaint History Of Prese nt Illness low back pain Severity level i s 4. Duration: chronic. Location of pain is lower back and legs. Symptoms are aggravated by standing and housework. Symptoms are relieved by pain meds/drugs and rest. Comments: This i s my first evaluation of the patient whose care is routinely managed by my colleague, Jf Valladares PA-C. Yenni is a 53 y/o female who presents for follow up and pain management in the setting of chronic migraines, low back pain with radiation into the RLE, and BL hip pain (R>L). Was last seen on 12/10/23. Pain has been stable this month.Denies any other health or medication changes since last visit. Pain well controlled with current plan of care. No changes to her pain. Continues to use Rewey sparingly. May use up to QID some days, but otherwise can go days without use. Is on Lyrica for fibro through her psychiatrist. Found this addition helpful. No other concerns today. Comments: This i s my first evaluation of the patient whose care is routinely managed by my colleague, Jf Valladares PA-C. All previous clinic notes and records were reviewed.Yenni is a 53 y/o female who presents for follow up and pain management in the setting of chronic migraines, low back pain with radiation into the RLE, and BL hip pain (R>L). Was last seen on 05/10/23. 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 Notes she was trying to vacuum the cobwebs and had strained herself trying to reach up. She states bending forward and backwards aggravates the pain. Willing to be prescribed a muscle relaxant and receive TPIs. No other concerns today. low back pain Severity level i s 5. Duration: chronic. The problem is worsening. It occurs persistently. The client describes the pain as sharp. Symptoms are aggravated by bending, lifting, sitting, standing, twisting, walking, housework, movement, rising from sitting position, stairs and prolonged positioning. Comments: Yenni is a 52 y/o woman [...] she is enjoying her new job at [employer] in [place]. She will be switching insurances at the [...] other concerns today. 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 The problem is worsening. The pain is recurring. Location of pain is bilateral. The client describes the pain as sharp. Symptom is aggravated by lifting weight, standing, housework and twisting. Relieving factors include ice and medications. Pertinent negatives include fever. 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 The problem is worsening. It occurs [...] completed RADHA provided significant benefit.Completed Botox at [facility] in [place] on 09/26/22.Current medication regimen provides 75% pain relief and allows increased functionality. Presents on track with prescribed medication. Will hold off on starting Qulipta and Ubrelvy for now. Denies side effects from current medication regimen. No other concerns today. Comments: Yenni is a 51 y/o woman here for follow up consult and medication refill regarding chronic bilateral hip pain and migraines. Pain has worsened since RADHA and pain level averages 5/10. Continues HEP including stretching. Continues to reports incidents of falls. States that her most recent fall was on 09/30/22 while out shoveling.Completed Botox at [facility] in [place] on 09/26/22.Requests provider to check her back in the location where she is experiencing pain.Current medication regimen provides 85% pain relief and allows increased functionality. Denies side effects from current medication regimen.Of note, patient started a new job since last visit. States that it has not been going well thus far.No other concerns today. 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 Location of pain is bilateral. Pertinent [...] her pain level.Scheduled to have Botox at [facility] in [place] on 09/26/22.Current medication regimen provides 85% pain [...] other concerns today. 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 The problem is worsening. It occurs [...] benefit. No other concerns today. Hip Pain Severity [...] States she has a consult scheduled with [facility] and is hopeful they will [...] not yet established with neurology and requests [facility] to do one last Botox injection. Reports current medication regimen provides 50% pain relief and allows increased functionality. Denies side effects from current medication regimen. No other concerns today. bilateral hip pain (comments) Funmi miranda is here today for follow up and medication management. Reports >50% relief with their current regimen and denies any side effects.Continues to have bilateral hip pain. States her pain has been stable since last OV. 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 Current medication provides significant relief and allows her to complete her ADLs. She requests a refill today. Patient is not accompanied today and has no other questions or concerns. bilateral hip pain Severity leve l is [...] Severity leve l is moderate. Duration chronic. It occurs [...] more than 3 months. 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 Leg Pain (comments) Yenni is her [...] medication regimen. She has been participating in skin care specialist which has also helped with her pain. Patient is not accompanied. No other concerns today. Leg Pain Duration: chroni c. Severity level is 3. It occurs intermittently and is stable. Location: lower back and headaches. The pain is aching. The pain is aggravated by lifting and housework. The pain is relieved by chiropractic and medications. right leg pain (comments) Yenni is here [...] her mother back and forth from the [facility] which has aggravated her pain. Notes that she had TPIs on 01/2021 which were very beneficial for her hip and is requesting to repeat them today.Reports current medication regimen provides >50% pain relief and allows for increased functionality. Denies side effects from current medication regimen. Requests a refill of her Rewey which she uses sparingly.Patient is not accompanied. [...] has not gone to the ER yet. [facility] and [facility] [...] been occurring since 10/09. She has tried Rewey, cannabis and Levetiracetam and the migraine is [...] has been helpful. Continues to use her Rewey sparingly to maintain her lowest effective dose.Patient [...] is planning on going to the chiropractor [facility]. She is looking forward to Botox injections [...] changing positions, chiropractic and medication. Leg Pain (comments) Yenni is her e [...] changing positions and lying down. Leg Pain It occurs consta ntly and [...] relieved by pain/RX meds. Leg Pain (comments) Patient is [...] by ice and pain/RX meds. Leg Pain Duration: chroni c. Severity level is 6. It occurs constantly and is stable. Location: back and head. The pain is aggravated by climbing (and descending) stairs, lifting, movement and housework. The pain is relieved by pain/RX meds, rest and lying down. 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 Continues to utilize Rewey 5mg tablets sparingly which has been very [...] No further questions or concerns. Leg Pain (comments) Yenni is her [...] sitting, walking, standing and housework. Leg Pain Duration: ongoin g. Severity level [...] and medication refill. She presents with #1 Rewey- surplus. Current medication regimen provides 70% relief. Denies side effects from current medication regimen. Pain today is improving s/p Botox injections 06/09/19. States she has only had three migraines since her injections, and was previously having up to 6 migraines per week. Does report recent R rib fx and inquires about a temporary increase in her Rewey dose as she recovers.Patient is not accompanied [...] rest, changing positions and sitting. Leg Pain (comments) Yenni is [...] regular SI joint injections, previously completed at [facility], to [facility] in the future. Patient is not accompanied today and has no further questions or other concerns. Leg Pain Onset: gradual. Duration: chronic. Severity [...] to R hip. S/p lumbar decompression in 2000, L4-5 fusion in 2015 and revision in 2017. Secondarily complains of chronic migraines and L ankle pain. S/p L ankle fusion which causes frequent swelling and pain at the end of the day.Underwent PT at [facility] in 2016 and [facility] in 2019-- helpful. Completed LESI with [facility]--helpful for 5 months. Reports previous imaging at [facility] [place] [facility] and [facility]. Currently managed on Lyrica 150mg 3 tabs nightly. Has also trialed and failed Gabapentin, Cymbalta, codeine, and oxycodone for additional pain relief. Previously following with PCP regarding hydrocodone 5/325mg for PRN use which effectively controls her RLE pain and chronic migraines.Yenni is interested in medication management and would like [facility] to assume management of pain care. Functional Status Date Functional Assessmen t No Information Instructions Date Instruction Additional Infor lara Lifestyle education regarding di et Related to Body mass index [BMI] 28.0-28.9, adult Assessments Type Assessment Date No Information Patient Care Teams Name Effective Dates (start - stop) Status Members No Information
--- OUTSIDE RECORDS SUMMARY | 2024-04-10 08:19 | XMS_ITS | Referral Summary ---
Author Organization [facility] Address [address] [facility] [address] Care Team Providers Care Price Lister Name Role Phone Saundra Toma Dias NP Unavailable [phone] Laura Us MD Unavailable Tierra Cancino PA-C Unavailable [phone] Haven Buckner STUFFING MACHINE OPERATOR Unavailable [phone] Allergies Active Allergy Reactions Criticality Noted Date [...] 180 tablet 3 11/15/2021 Active nystatin (MYCOSTATIN) [id number] UNIT/GM external creamIndications:I ntertriginous candidiasis Apply topically [...] and replacement with titanium plate 07/24/2017 at [place] 07/11/2017 Class 1 obesity with serious comorbidity [...] her. She's working with her neurologist at [facility] and [place].for postconcussion therapy and evaluation. Did an EEG [...] .- discontinued by the chronic pain clinic -[facility] 04/2017 Maximum quantity per month: #30 Clinic visit frequency required: Q 6 months Controlled substance agreement on file: Yes Date(s): 01/05/2017 Pain Clinic evaluation in the past: No DIRE Total Score(s): 06/03/2015 Total Score 20 Last [facility] website verification: done on 01/05/2017 [email or web address] Intractable migraine without aura and without status migrainosus- [facility] - every 4-6 weeks 06/03/2015 Chronic bilateral low back p ain with right-sided sciatica-- resolved s/p spine surgery with Dr. Sosa 07/24/2017 06/03/2015 Overview: Not going to [facility] at all for her chronic pain - [...] c low back pain - managed by [facility] 06/03/2015 Skin cancer, basal cell [...] FREE T4 REFLEX Routine 11/17/2021 7:16 AM STONE TRIMMER Other fatigue ALBUMIN RANDOM URINE QUANTITATIVE Routine 11/17/2021 7:16 AM STONE TRIMMER Essential hypertension LIPID REFLEX TO DIRECT LDL PANEL Routine 11/17/2021 7:16 AM STONE TRIMMER Hyperlipidemia LDL goal <130 COMPREHENSIVE METABOLIC PANEL Routine 11/17/2021 7:16 AM STONE TRIMMER Hyperlipidemia LDL goal <130 Essential hypertension Essential hypertension with goal blood pressure less than 140/90 MA SCREENING BILATERAL W/ SUNNY Routine 10/13/2021 3:39 PM STONE TRIMMER Visit for screening mammogram CBC WITH PLATELETS AND DIFFERENTIAL STAT 06/06/2021 1:10 PM CDT Tachycardia SOB (shortness of breath) CBC WITH PLATELETS & DIFFERENTIAL STAT 06/06/2021 1:10 PM CDT Tachycardia SOB (shortness of breath) HEPATITIS C SCREEN REFLEX TO HCV RNA QUANT AND GENOTYPE Routine 09/23/2020 9:03 AM STONE TRIMMER Need for hepatitis C screening test HPV HIGH RISK TYPES DNA CERVICAL Routine 09/23/2020 8:44 AM STONE TRIMMER Screening for malignant neoplasm of cervix PAP IMAGED THIN LAYER SCREEN Routine 09/23/2020 8:34 AM STONE TRIMMER Screening for malignant neoplasm of cervix COLONOSCOPY Routine 09/29/2019 8:14 AM STONE TRIMMER PHQ-9 DEPRESSION SCREENING ORDER Routine 07/23/2019 URINE [...] Maintenance Results * (ABNORMAL) UA without Microscopic [[id number]] (12/02/2021 3:23 PM CDT) Color Urine Yellow [...] 3:57 PM CDT [facility] CONTRER[facility] Specific [place] Urine 1.020 1.003 - 1.035 12/02/2021 3:57 [...] LAB - URINE O RDERABLES [facility] [address] [place] [address], [facility] [phone] * TSH with free T4 reflex (11/17/2021 7:16 AM STONE TRIMMER) TSH 0.69 0.40 - 4.00 mU/L 11/18/2021 4:49 PM STONE TRIMMER [facility] Blood STRUCTURE OF RIGHT UPPER LIMB / Unknown Venipuncture / Unknown 11/17/2021 7:16 AM STONE TRIMMER 11/17/2021 7:16 AM STONE TRIMMER Chance Bundy PA-C LAB - BLOOD ORDE JENNIFER [facility] Core Lab [address] [facility], [address] [place] [address], [facility] [phone] * Albumin Random Urine Quantitative with Creat Ratio (11/17/2021 7:16 AM STONE TRIMMER) Creatinine Urine mg/dL 70 mg/dL 11/17/2021 4:27 PM STONE TRIMMER [facility] Albumin Urine mg/L <5 mg/L 11/17/2021 4:27 PM STONE TRIMMER [facility] Albumin Urine mg/g Cr 11/17/2021 4:27 PM STONE TRIMMER [facility] Comment:Unable to calculate: ??Urine creatinine or albumin value below detectable level Urine MID-STREAM URINE SPECIMEN / Unknown Non-blood Collection / Unknown 11/17/2021 7:16 AM STONE TRIMMER 11/17/2021 7:16 AM STONE TRIMMER Chance Bundy PA-C LAB - URINE ORDE JENNIFER [facility] [address] Lab (no room number, 1st floor of clinic) [place] [address], [place] [phone] * (ABNORMAL) Lipid panel reflex to direct LDL Fasting (11/17/2021 7:16 AM STONE TRIMMER) Cholesterol 152 <200 mg/dL 11/18/2021 4:49 PM STONE TRIMMER [facility] Triglycerides 308(H) <150 mg/dL 11/18/2021 4:49 PM STONE TRIMMER [facility] Direct Measure HDL 36(L) >=50 mg/dL 11/18/2021 4:49 PM STONE TRIMMER [facility] LDL Cholesterol Calculated 54 <=100 mg/dL 11/18/2021 4:49 PM STONE TRIMMER [facility] Non HDL Cholesterol 116 <130 mg/dL 11/18/2021 4:49 PM STONE TRIMMER [facility] Patient Fasting > 8hrs? Yes 11/18/2021 4:49 PM STONE TRIMMER [facility] Blood STRUCTURE OF RIGHT UPPER LIMB / Unknown Venipuncture / Unknown 11/17/2021 7:16 AM STONE TRIMMER 11/17/2021 7:16 AM STONE TRIMMER Narrative [facility] - 11/18/2021 4:49 PM STONE TRIMMER Cholesterol Desirable: ??<200 mg/dL Triglycerides Normal: ??Less [...] LAB - BLOOD ANNA RODRIGUEZ [facility] [place] Core Lab [address] [facility], [address] [place] [address], [place] [phone] LABORATORY [facility] [place] [address] Lab (no room number, 1st floor of clinic) [place] [address], [facility] [phone] * (ABNORMAL) Comprehensive metabolic panel (BMP + Alb, Alk Phos, ALT, AST, Total. Bili, TP) (11/17/2021 7:16 AM STONE TRIMMER) Sodium 138 133 - 144 mmol/L 11/18/2021 4:49 PM STONE TRIMMER [facility] Potassium 4.7 3.4 - 5.3 mmol/L 11/18/2021 4:49 PM STONE TRIMMER [facility] Chloride 103 94 - 109 mmol/L 11/18/2021 4:49 PM STONE TRIMMER [facility] Carbon Dioxide (CO2) 27 20 - 32 mmol/L 11/18/2021 4:49 PM STONE TRIMMER [facility] Anion Gap 8 3 - 14 mmol/L 11/18/2021 4:49 PM STONE TRIMMER [facility] Urea Nitrogen 16 7 - 30 mg/dL 11/18/2021 4:49 PM STONE TRIMMER [facility] Creatinine 1.24(H) 0.52 - 1.04 mg/dL 11/18/2021 4:49 PM STONE TRIMMER [facility] Calcium 9.1 8.5 - 10.1 mg/dL 11/18/2021 4:49 PM STONE TRIMMER [facility] Glucose 78 70 - 99 mg/dL 11/18/2021 4:49 PM STONE TRIMMER [facility] Alkaline Phosphatase 100 40 - 150 U/L 11/18/2021 4:49 PM STONE TRIMMER [facility] AST 21 0 - 45 U/L 11/18/2021 4:49 PM STONE TRIMMER [facility] ALT 26 0 - 50 U/L 11/18/2021 4:49 PM STONE TRIMMER [facility] Protein Total 7.4 6.8 - 8.8 g/dL 11/18/2021 4:49 PM STONE TRIMMER [facility] Albumin 3.6 3.4 - 5.0 g/dL 11/18/2021 4:49 PM STONE TRIMMER [facility] Bilirubin Total 0.4 0.2 - 1.3 mg/dL 11/18/2021 4:49 PM STONE TRIMMER [facility] GFR Estimate 52(L) >60 mL/min/1.7 3m2 11/18/2021 4:49 PM STONE TRIMMER [facility] Comment:Effective August 182020 eGFRcr in adults is calculated using the 2020 CKD-EPI creatinine equation which includes age and gender (Gloria et al., NEJM, DOI: 10.1056/GXPLmk1546488) Blood STRUCTURE OF RIGHT UPPER LIMB / Unknown Venipuncture / Unknown 11/17/2021 7:16 AM STONE TRIMMER 11/17/2021 7:16 AM STONE TRIMMER Chance Bundy PA-C LAB - BLOOD ANNA RODRIGUEZ LABORATORY [facility] Core Lab [address] [facility], [address] [place] [address], [facility] [phone] * MA Screen Bilateral w/Sunny (10/13/2021 3:39 PM STONE TRIMMER) Anatomical Region Laterality Modality Breast Bilateral Mammography Narrative 10/14/2021 8:52 AM STONE TRIMMER BILATERAL FULL FIELD DIGITAL SCREENING MAMMOGRAM WITH [...] NRBCs 0.0 10e3/uL 06/06/2021 1:21 PM CDT LABORATORY Blood STRUCTURE OF LEFT UPPER LIMB / Unknown Venipuncture / Unknown 06/06/2021 1:10 PM CDT 06/06/2021 1:18 PM CDT Chance Bundy PA-C LAB - BLOOD ANNA RODRIGUEZ RH LABORATORY [facility] Lab [address] Lab (1st floor, no room number) [place] [address], [facility] [phone] * Hepatitis C Screen Reflex to HCV RNA Quant and Genotype (09/23/2020 9:03 AM STONE TRIMMER) Hepatitis C Antibody Nonreactive NR^Nonre active 09/23/2020 4:55 PM STONE TRIMMER [facility] Comment: Assay performance characteristics have not been established for newborns, infants, and children Blood specimen (specimen) 09/23/2020 9:03 AM STONE TRIMMER 09/23/2020 9:04 AM STONE TRIMMER Chance Bundy PA-C LAB - BLOOD ANNA RODRIGUEZ [facility] [address] [place] [address] * HPV High Risk Types DNA Cervical (09/23/2020 8:44 AM STONE TRIMMER) HPV Source [facility] 09/23/2020 8:34 AM STONE TRIMMER [facility] HPV 16 DNA Negative NEG^Nega tive 09/29/2020 3:34 PM STONE TRIMMER [facility] HPV 18 DNA Negative NEG^Nega tive 09/29/2020 3:34 PM STONE TRIMMER [facility] Other HR HPV Negative NEG^Nega tive 09/29/2020 3:34 PM STONE TRIMMER [facility] Final Diagnosis This patient's sample is negative for HPV DNA. 09/29/2020 3:34 PM STONE TRIMMER [facility] Comment: This test was developed and its performance characteristics determined by the [facility], Molecular Diagnostics Laboratory. It has not been [...] Specimen Description Cervical Cells 09/23/2020 8:34 AM STONE TRIMMER [facility] Cervical Cells CERVIX UTERI STRUCTURE / Unknown 09/23/2020 8:44 AM STONE TRIMMER 09/23/2020 9:03 AM STONE TRIMMER Chance Bundy PA-C LAB - BLOOD ANNA RODRIGUEZ [address] [address] * Pap imaged thin layer screen with HPV - recommended age 30 - 65 years (select HPV order below) (09/23/2020 8:34 AM STONE TRIMMER) PAP ELISEO Pastor Report Patient Name: YENNI DYSON MR#: [id number] Specimen #: [id number] Collected: 09/23/2020 Received: 09/24/2020 [...] adenocarcinomas or other cancers. COLLECTION SITE: Client: ??[facility] Location: [facility] () The technical component of this testing was [facility], with the professional component performed at the [facility], [address] [place] [id number] ([phone]) COPATH Cytologic material (specimen) 09/23/2020 8:34 AM STONE TRIMMER 09/24/2020 11:15 AM STONE TRIMMER Chance Bundy PA-C LAB - OPTIME CLI NICAL SPECIMEN COPATH * COLONOSCOPY (09/29/2019 8:14 AM STONE TRIMMER) COLONOSCOPY [facility] Patient Name: Yenni Dyson ? Procedure Date: [...] # [id number], ?[place] # [id number], SN # [id number] was introduced through ?the anus and advanced [...] Note Initiated On: 09/29/2019 8:14 AM MRN: ?[id number] Procedure Date: ? 09/29/2019 8:14:18 AM Scope Withdrawal Time: 0 hours 13 minutes 33 seconds Total Procedure Duration: 0 hours 19 minutes 46 seconds Estimated Blood Loss: ? none Scope In: 9:00:41 AM Scope Out: 9:20:27 AM RADIOLOGY RESULTS 09/29/2019 8:14 AM STONE TRIMMER Heber Glover MD PROCEDURES RADIOLOGY RESULTS * PHQ-9 DEPRESSION SCREENING ORDER (07/23/2019) PHQ9 SCORE 5 Narrative Caro Marino - 07/23/2019 [facility] VISIT NOTE Provider Outside OTHER * (ABNORMAL) Drug Abuse Screen Panel 13, Urine (Pain Care Package) (07/11/2018 2:01 PM CDT) Cannabinoids (51-eya-5-carboxy- 9-THC) Not Detected NDET^Not Detected ng/mL 07/11/2018 5:[address] [facility] Comment:Cutoff for a negativ e cannabinoid is 50 ng/mL or less. Phencyclidine (Phencyclidine) Not Detected NDET^Not Detected ng/mL 07/11/2018 5:[address] [facility] Comment:Cutoff for a negativ e PCP is 25 ng/mL or less. Cocaine (Benzoylecgonine) Not Detected NDET^Not Detected ng/mL 07/11/2018 5:[address] [facility] Comment:Cutoff for a negativ e cocaine is 150 ng/ml or less. Methamphetamine (d-Methamphetamine ) Not Detected NDET^Not Detected ng/mL 07/11/2018 5:[address] [facility] Comment:Cutoff for a negativ e methamphetamine is 500 ng/ml or less. Opiates (Morphine) Detected, Abnormal Result(A) NDET^Not Detected ng/mL 07/11/2018 5:[address] [facility] Comment: Cutoff for a positive opiate is greater than 100 ng/ml. This is an unconfirmed screening result to be used for medical purposes only. Order [id number] for confirmation or individual confirmation tests to [facility]. Amphetamine (d-Amphetamine) Not Detected NDET^Not Detected ng/mL 07/11/2018 5:[address] [facility] Comment:Cutoff for a negativ e amphetamine is 500 ng/mL or less. Benzodiazepines (Nordiazepam) Not Detected NDET^Not Detected ng/mL 07/11/2018 5:[address] [facility] Comment:Cutoff for a negativ e benzodiazepine is 150 ng/ml or less. Tricyclic Antidepressants (Desipramine) Detected, Abnormal Result(A) NDET^Not Detected ng/mL 07/11/2018 5:[address] [facility] Comment: Cutoff for a positive tricyclic antidepressant is greater than 300 ng/ml. This is an unconfirmed screening result to be used for medical purposes only. Order [id number] for confirmation or individual confirmation tests to [facility]. Methadone (Methadone) Not Detected NDET^Not Detected ng/mL 07/11/2018 5:[address] [facility] Comment:Cutoff for a negativ e methadone is 200 ng/ml or less. Barbiturates (Butalbital) Not Detected NDET^Not Detected ng/mL 07/11/2018 5:[address] [facility] Comment:Cutoff for a negativ e barbituate is 200 ng/ml or less. Oxycodone (Oxycodone) Not Detected NDET^Not Detected ng/mL 07/11/2018 5:[address] [facility] Comment:Cutoff for a negativ e Oxycodone is 100 ng/mL or less. Propoxyphene (Norpropoxyphene) Not Detected NDET^Not Detected ng/mL 07/11/2018 5:[address] [facility] Comment:Cutoff for a negativ e propoxyphene is 300 ng/ml or less Buprenorphine (Buprenorphine) Not Detected NDET^Not Detected ng/mL 07/11/2018 5:[address] [facility] Comment:Cutoff for a negativ e buprenorphine is 10 ng/ml or less Urine specimen (specimen) 07/11/2018 2:01 PM CDT 07/11/2018 2:02 PM CDT Heber Glover MD LAB - URINE ORD ERABLES [facility] [address] [place] [address] * HIV Screening (07/11/2018 10:09 AM CDT) HIV Antigen Antibody Combo Nonreactive NR^Nonrea ctive 07/12/2018 9:42 AM CDT [facility] Comment:HIV-1 p24 Ag & HIV-1 /HIV-2 Ab Not Detected Blood specimen (specimen) 07/11/2018 10:09 AM CDT 07/11/2018 10:10 AM CDT Heber Glover MD LAB - BLOOD ORD ERABLES Performing Organization Address City/[facility]/ZIP Co de Phone Number [facility] [address] [place], [place] [address] * CT Chest/Abdomen/Pelvis w Contrast (04/16/2016 3:09 [...] Advance Directives For more information, please contact: [phone] * Full Code (Latest Code Status on File) Date Activated Date Inactivated Comments 06/27/2017 4:33 PM 06/28/2017 4:51 PM * Full Code Date Activated Date Inactivated Comments 07/07/2016 2:47 PM 06/27/2017 4:33 PM * Full Code Date Activated Date Inactivated Comments 07/06/2016 5:24 PM 07/07/2016 2:47 PM Care Teams Price Lister Relationship Specialty Start Date End Date Toma Arguello NP [address] [place] [address] Nurse Practitioner Nurse Practitioner Psych/Mental Health 04/11/17 Laura Us MD [facility] [address] [place] [address] Gastroenterology 12/20/18 Tierra Cancino PA-C [address] [facility] [address] [address] Physician Pump Servicer Urology 11/17/21 Haven Buckner, NICOLE [address] [place] [address] [id number] Assigned PCP 05/19/23
--- OUTSIDE RECORDS SUMMARY | 2024-04-10 08:19 | XMS_ITS | Referral Summary ---
Author Organization [facility] Address [address] [place] [address] Care Team Providers Care Grocery Department Manager Name Role Phone Elsewhere, Pcp Primary Care Provider Unavailabl e Source Comments Patient records contain information from all sites at [facility]. For routine questions regarding patient records, call [phone] during business hours, M-F 8:00 AM - 5:00 PM Central Time. Record requests for emergency care only can be directed to [phone] at any time.[facility] Allergies Active Allergy Reactions Criticality Noted [...] Comments Blood Pressure 117/79 08/01/2022 2:07 PM TOUR GUIDE Pulse 101 08/01/2022 2:07 PM TOUR GUIDE Temperature 36.8 ??C (98.2 ??F) 07/10/2022 4:00 AM CD T Respiratory Rate 18 07/10/2022 4:00 AM CDT Oxygen Saturation 90% 07/10/2022 7:00 AM CDT Inhaled Oxygen Concentration - - Weight 96.1 kg (211 lb 13.8 oz) 08/01/2022 2:07 PM TOUR GUIDE Height 166.5 cm (5' 5.55) 08/01/2022 2:07 PM CS T Body Mass Index 34.67 08/01/2022 2:07 PM TOUR GUIDE Plan of Treatment Not on file Procedures Procedure Name Priority Date/Time Associated Diagnosis Comments BASIC METABOLIC PANEL, S/P STAT 07/10/2022 4:20 AM CDT BI BREAST SCREENING BILATERAL Routine 01/21/2015 8:30 AM CDT LIPID PANEL, S Routine 12/17/2014 9:20 AM CDT from Last 3 Months or Most [...] CDT Jorge Browne D.O. LAB BLOOD ADD-ON [facility] [address] [place] [address], [facility] NPRG [facility] [address] [place] [address] * BI Breast Screening Bilateral (01/21/2015 8:30 AM CDT) Anatomical Region Laterality Modality Breast Bilateral Mammography 01/21/2015 8:30 AM CDT Impressions 01/21/2015 9:03 AM CDT 1. Stable examination with no mammographic evidence of malignancy. 2. Annual screening mammography is recommended. BIRADS: Code 2, ??Benign Findings BREAST MAMMOGRAPHY-GENERAL OBSERVATION: The false negative rate for mammography is 15 to 20%. It cannot be used, therefore, to replace regular physical examination. A normal or noncontributory mammogram report should also not deter the aggressive further workup of any suspected palpable masses. Narrative 01/21/2015 9:03 AM CDT Bilateral craniocaudal and oblique views of the breasts were obtained digitally, and compared to the patient's prior studies of January 14, 2014 and prior. Previous right breast ultrasound studies reviewed. FINDINGS: The breast parenchyma remains heterogeneously dense with a stable appearance relative to prior studies. Scar marker overlies the upper outer quadrant right breast. There are no new or suspicious grouping of calcifications, dominant nodules, areas of skin thickening or nipple retraction to suggest malignancy. Stable bilateral calcifications. Computer Aided Detection was utilized during the interpretation of this exam. Procedure Note Ortiz Mcbride M.D. / Ondina Choi M.D. - 01/24/2017 Bilateral craniocaudal and oblique views of the breasts were obtained digitally, and compared to the patient's prior studies of January 14, 2014 and prior. Previous right breast ultrasound studies reviewed. FINDINGS: The breast parenchyma remains heterogeneously dense with a stable appearance relative to prior studies. Scar marker overlies the upper outer quadrant right breast. There are no new or suspicious grouping of calcifications, dominant nodules, areas of skin thickening or nipple retraction to suggest malignancy. Stable bilateral calcifications. Computer Aided Detection was utilized during the interpretation of this exam. IMPRESSION: 1. Stable examination with no mammographic evidence of malignancy. 2. Annual screening mammography is recommended. BIRADS: Code 2, Benign Findings BREAST MAMMOGRAPHY-GENERAL OBSERVATION: The false negative rate for mammography is 15 to 20%. It cannot be used, therefore, to replace regular physical examination. A normal or noncontributory mammogram report should also not deter the aggressive further workup of any suspected palpable masses. Alessia Hernandez(R)(CT), RKodiTKodi(R)(M) IMG BI PROCEDURES * (ABNORMAL) Lipid Panel (12/17/2014 9:20 AM CDT) Cholesterol, Total 220(H) <=199 MGDL POWERCHART Comment: The National Cholesterol Education Program (NCEP) has set the following guidelines for Cholesterol in adults age 18 and up: Desirable < 200 mg/dL Borderline High 200-239 mg/dL High > or = 240 mg/dL The National Cholesterol Education Program (NCEP) has set the following guidelines for Cholesterol in children ages 2 to 17: Desirable < 170 mg/dL Borderline High 170-199 mg/dL High > or = 200 mg/dL HX HDL 37(L) >=40 MGDL POWERCHART Comment: The National Cholesterol Education Program (NCEP) has set the following guidelines for HDL in adults age 18 and up: Low < 40 mg/dL Normal 40-60 mg/dL High > 60 mg/dL The National Cholesterol Education Program (NCEP) has set the following guidelines for HDL in children ages 2 to 17: Low < 40 mg/dL Borderline Low 40-59 mg/dL Normal > or = 60 mg/dL Values > 60 mg/dL are considered a negative risk factor for coronary heart disease (CHD) and are considered protective. Values < 40 mg/dL correlate with increased risk for CHD. Triglycerides 400(H) <=149 MGDL POWERCHART Comment: The National Cholesterol Education Program (NCEP) has set the following guidelines for Triglycerides in adults ages 18 and up: Normal <150 mg/dL Borderline 150-199 mg/dL High 200-499 mg/dL Very High > or = 500 mg/dL The National Cholesterol Education Program (NCEP) has set the following guidelines for Triglycerides in children ages 2 to 17. Normal <90 mg/dL Borderline 90-129 mg/dL High > or = 130 mg/dL Calculated LDL 103(H) <=99 MGDL POWERCHART Comment: The National Cholesterol Education Program (NCEP) has set the following guidelines for LDL-C in adults age 18 and up: Optimal < 100 mg/dL* Near Optimal 100-129 mg/dL Borderline High 130-159 mg/dL High 160-189 mg/dL Very High > or = 190 mg/dL *In patients with a history of heart disease and/or diabetes an LDL-C goal of < 70 mg/dL should be considered. The National Cholesterol Education Program (NCEP) has set the following guidelines for LDL-C in children ages 2 to 17: Desirable < 110 mg/dL Borderline High 110-129 mg/dL High > or = 130 mg/dL Blood 12/17/2014 9:20 AM CDT Fabiola E Tiegs M.D. LAB BLOOD ADD-ON POWERCHART from Last 3 Months or Most Recently Relevant to Health Maintenance Care Teams Grocery Department Manager Relationship Specialty Start Date End Date Elsewhere, Pcp PCP - General Internal Medicine 07/10/22
--- OUTSIDE RECORDS SUMMARY | 2024-04-10 08:19 | XMS_ITS | Clinical Summary ---
Author Organization [facility] Address [address] [place] [address] Phone Care Team Providers Care Outcome Analyst Name Role Phone Kathy Golver MD Primary Care Provider Medications Medication Sig [...] 11/23/2017 Active ergocalciferol (VITAMIN D2) 1.25 MG (87138 UT) capsule Take 1 tab weekly 0 [...] Comments Blood Pressure 114/84 11/23/2017 12:01 AM CEO AND PRESIDENT Si tting, Left Pulse 80 11/23/2017 12:01 AM CEO AND PRESIDENT Brac hial Temperature 37 ??C (98.6 ??F) 11/23/2017 12:01 AM CEO AND PRESIDENT Respiratory Rate - - Oxygen Saturation - - Inhaled Oxygen Concentration - - Weight 79.4 kg (175 lb) 11/23/2017 12:01 AM CEO AND PRESIDENT Height 167.6 cm (5' 6) 11/23/2017 12:01 AM CEO AND PRESIDENT Body Mass Index 28.25 11/23/2017 12:01 AM CEO AND PRESIDENT Plan of Treatment Not on file Care Teams Outcome Analyst Relationship Specialty Start Date End Date Kathy Glover MD [address] [place] [address] PCP - General 05/11/21
--- OUTSIDE RECORDS SUMMARY | 2024-04-10 08:19 | XMS_ITS | Clinical Summary ---
Author Organization [facility] Address [place], [place] [address] Care Team Providers Care Market Risk Manager Name Role Phone Kathy Glover MD Primary Care Provider [phone] Allergies Active Allergy Reactions Criticality Noted Date [...] MAX 3 PER DAY 0 08/15/2018 Active Multivits,Ca,Chickaloon als-Iron-FA (THERA M PLUS, FERROUS FUMARAT,) 9 mg iron-400 mcg tablet Take 1 tablet by mouth. Active omega 9-via-srw-fish oil (FISH OIL) 300-1,000 mg cpDR Take 1,000 mg by mouth. Active AFLURIA QUAD 4734-3052, PF, 60 mcg/0.5 mL IM syringe ADM [...] Problem Noted Date Diagnosed Date Lumbar pseudoarthrosis Immunizations Name Administration Dates Next Due Influenza [...] Tetanus booster 08/15/2021 08/15/2011 COVID-19 vaccine series ( season) 2023 11/15/2021, 01/30/2021, 01/09/2021 Influenza for age 50-64 05/18/2024 07/25/20 17, 07/14/2016, 07/02/2015, Additional history exists Pap test for age 21-65 11/21/2026 11/22/2023, 2023 Tdap Completed 08/15/2011 Pneumococcal series for age 6-64 Aged Out No longer eligible based on patient's age to complete this topic Medical Devices Implanted Type Area Slitter Cut Off Operator Device Identifier Shelf Expiration Date Model / Serial / Lot Bone Matrix Md Infuse Bmp - [id number] Implanted:Qty: 1 on 07/24/2017 by Danish Sosa MD at [facility] N/A: Spine Medtronic Spine/Ortho 11/14/2018 [id number] / / [id number] Bone 15cc Allosource Crushed Canclls - [id number] Implanted:Qty: 1 on 07/24/2017 by Danish Sosa MD at [facility] N/A: Spine Allosource 11/21/2020 [id number]# / / [id number] Bone Matrix 5cc Progenix Plus Putty Dbm - [id number] Implanted:Qty: 1 on 07/24/2017 by Danish Sosa MD at [facility] N/A: Spine Medtronic Spine/Ortho 12/27/2018 [id number]# / / [id number] Plate Lmbr Milton-L Stand Alone Lock - [id number] Implanted:Qty: 1 on 07/24/2017 by Danish Sosa MD at [facility] N/A: Spine Quecreek Spine [id number] 00# / / Screw Lmbr 6x25mm Ancr-L Standalone - [id number] Implanted:Qty: 3 on 07/24/2017 by Danish Sosa MD at [facility] N/A: Spine Quecreek Spine [id number] 25# / / Spacer Lmbr [id number] 12deg Avs-L Stand Alone - [id number] Implanted:Qty: 1 on 07/24/2017 by Danish Sosa MD at [facility] N/A: Spine Jeromy Spine [id number] 62# / / Explanted Type Area Slitter Cut Off Operator Device Identifier Shelf Expiration Date Model / Serial / Lot Hardware Removal Explanted:Qty: 1 on 07/24/2017 by Danish Sosa MD at [facility] N/A: Spine Description:One Piece Spinal Hardware Removed Procedures Procedure Name Priority Date/Time Associated Diagnosis Comments HPV THIN PREP Routine 11/22/2023 8:06 AM VOLCANOLOGY TEACHER from Last 3 Months or Most Recently Relevant to Health Maintenance Results * HPV HIGH RISK (11/22/2023 8:06 AM VOLCANOLOGY TEACHER) TYPE 16 Negative Negative 11/26/2023 5:04 PM CDT [facility] TYPE 18 Negative Negative 11/26/2023 5:04 PM CDT [facility] OTHER HIGH RISK TYPES Negative Negative 11/26/2023 5:04 PM CDT [facility] Other (Cervical/Vagina l) 11/22/2023 8:06 AM VOLCANOLOGY TEACHER 11/23/2023 8:22 AM VOLCANOLOGY TEACHER Narrative [facility] - 11/26/2023 5:04 PM CDT HPV types 16, 18, 31, 33, 35, 39, 45, 51, 52, 56, 58, 59, 66 and 68 DNA were undetectable or below the pre-set threshold. Methodology: Duane Fatoumata 4800 HPV Test Lela Giraldo MD MICROBIOLOGY [facility] [address] [place] [address], from Last 3 Months or Most Recently Relevant to Health Maintenance Advance Directives * Full Code (Latest Code Status on File) Date Activated Date Inactivated Comments 09/27/2018 3:08 PM 09/27/2018 5:47 PM Care Teams Market Risk Manager Relationship Specialty Start Date End Date Kathy Glover MD [address] [place] [id number] PCP - General Family Practice 09/25/18
--- OUTSIDE RECORDS SUMMARY | 2024-04-10 08:19 | XMS_ITS | Encounter Summary ---
Author Organization [facility] Address [address] [facility] [place] [address] Care Team Providers Care Upper Shaper Name Role Phone Toma Arguello Arun ROBERT Unavailable [phone] Laura Us MD Unavailable Tierra Cancino PA-C Unavailable Luh Acharya PA-C Primary Care Provider + iTerra Cancino PA-C Unavailable Luh Acharya PA-C Unavailable Haven Buckner CNP Unavailable Reason for Visit * Reason Comments Medication Refill Encounter Details Date Type Department Care Team (Late st Contact Info) Description 12/30/[address] [phone] Luh Acharya PA-C [address] [place] [address] [phone] Medication Refill Social History Tobacco Use Types [...] further fills. Luh Acharya MBA, MS, REFUGIO [facility] * Telephone Encounter - Haven Pike CMA [...] be provided Drug does not pass the [facility] refill protocol Thank you! Ellen Lemon RN [facility] Triage documented in this encounter Plan of Treatment Not on file documented as of this encounter Visit Diagnoses Diagnosis Gastroesophageal reflux disease, unspecified whether esophagitis present documented in this encounter Additional Health Concerns Assessment Noted Time PHQ-9 Depression Total Score: 5 02/08/20 22 7:03 AM BIODIESEL PRODUCTION ASSOCIATE documented as of this encounter Care Teams Upper Shaper Relationship Specialty Start Date End Date Luh Acharya PA-C [address] [place] [phone] PCP - General Family Medicine 11/21/21 01/02/23 Toma Arguello NP [address] [place] [address] Nurse Practitioner Nurse Practitioner Psych/Mental Health 04/11/17 Laura Us MD [address] [place] [address] Gastroenterology 12/20/18 iTerra Cancino PA-C [address] [place] [address] Physician String Studies Director Urology 11/17/21 Tierra Cancino PA-C [address] [place] [address] Assigned Surgical Provider 12/11/21 06/08/23 Luh Acharya PA-C [address] [place] [phone] Assigned PCP 12/23/22 05/18/23 Haven Buckner, NICOLE [address] [place] [phone] Assigned PCP 05/19/23 documented as of this encounter
--- OUTSIDE RECORDS SUMMARY | 2024-04-10 08:19 | XMS_ITS | Clinical Summary ---
Author Organization [facility] Address [address] [facility] [address] Care Team Providers Care Gym Teacher Name Role Phone Saundra Toma Dias NP Unavailable [phone] Laura Us MD Unavailable Tierra Cancino PA-C Unavailable Haven Buckner ASBESTOS REMOVER Unavailable [phone] Allergies Active Allergy Reactions Criticality Noted Date [...] 180 tablet 3 11/15/2021 Active nystatin (MYCOSTATIN) 186167 UNIT/GM external creamIndications:I ntertriginous candidiasis Apply topically [...] and replacement with titanium plate 07/24/2017 at [place] 07/11/2017 Class 1 obesity with serious comorbidity [...] her. She's working with her neurologist at [facility] and [place].for postconcussion therapy and evaluation. Did an EEG [...] .- discontinued by the chronic pain clinic -[facility] 04/2017 Maximum quantity per month: #30 Clinic visit frequency required: Q 6 months Controlled substance agreement on file: Yes Date(s): 01/05/2017 Pain Clinic evaluation in the past: No DIRE Total Score(s): 06/03/2015 Total Score 20 Last [facility] website verification: done on 01/05/2017 [email or web address] ([email or web address] Intractable migraine without aura and without status migrainosus- [facility] pain [facility] - every 4-6 weeks 06/03/2015 Chronic bilateral low back p ain with right-sided sciatica-- resolved s/p spine surgery with Dr. Sosa 07/24/2017 06/03/2015 Overview: Not going to [facility] at all for her chronic pain [...] c low back pain - managed by [facility] 06/03/2015 Skin cancer, basal cell [...] 11/18/2020, Additional history exists LIPID 11/17/2022 11/17/2021, 0 03/2021, 01/20/2020, Additional history exists MICROALBUMIN 11/17/2022 11/17/2021, 0 03/2021, 01/20/2020, Additional history exists TSH W/FREE T4 REFLEX 11/17/2022 11/17/2021, 06/06/2021, 05/13/2021, Additional history exists COVID-19 Vaccine ( season) 2023 11/15/2021, 01/30/2021, 01/09/2021 INFLUENZA VACCINE (#1) 2024 , 05/30/2020, 07/10/2019, Additional history exists COLONOSCOPY 09/29/2024 09/29/2019, 09/17, 08/24/2014 COLORECTAL CANCER SCREENING 09/29/2024 GLUCOSE 11/17/2024 11/17/2021, 05/19, 05/27/2021, Additional history exists HPV TEST 09/23/2025 09/23/2020, 01/05/2017 PAP 09/23/2025 09/23/2020, 12/17, 01/03/2013, Additional history [...] 11/18/2020, Additional history exists URINALYSIS Completed 12/02/2021, 11/2021, 05/30/2021, Additional history exists HPV IMMUNIZATION [...] FREE T4 REFLEX Routine 11/17/2021 7:16 AM SOFTWARE DEVELOPER Other fatigue ALBUMIN RANDOM URINE QUANTITATIVE Routine 11/17/2021 7:16 AM SOFTWARE DEVELOPER Essential hypertension LIPID REFLEX TO DIRECT LDL PANEL Routine 11/17/2021 7:16 AM SOFTWARE DEVELOPER Hyperlipidemia LDL goal <130 COMPREHENSIVE METABOLIC PANEL Routine 11/17/2021 7:16 AM SOFTWARE DEVELOPER Hyperlipidemia LDL goal <130 Essential hypertension Essential hypertension with goal blood pressure less than 140/90 MA SCREENING BILATERAL W/ SUNNY Routine 10/13/2021 3:39 PM SOFTWARE DEVELOPER Visit for screening mammogram CBC WITH PLATELETS AND DIFFERENTIAL STAT 06/06/2021 1:10 PM CDT Tachycardia SOB (shortness of breath) CBC WITH PLATELETS & DIFFERENTIAL STAT 06/06/2021 1:10 PM CDT Tachycardia SOB (shortness of breath) HEPATITIS C SCREEN REFLEX TO HCV RNA QUANT AND GENOTYPE Routine 09/23/2020 9:03 AM SOFTWARE DEVELOPER Need for hepatitis C screening test HPV HIGH RISK TYPES DNA CERVICAL Routine 09/23/2020 8:44 AM SOFTWARE DEVELOPER Screening for malignant neoplasm of cervix PAP IMAGED THIN LAYER SCREEN Routine 09/23/2020 8:34 AM SOFTWARE DEVELOPER Screening for malignant neoplasm of cervix COLONOSCOPY Routine 09/29/2019 8:14 AM SOFTWARE DEVELOPER PHQ-9 DEPRESSION SCREENING ORDER Routine 07/23/2019 URINE [...] Maintenance Results * (ABNORMAL) UA without Microscopic [[id number]] (12/02/2021 3:23 PM CDT) Color Urine Yellow [...] 3:57 PM CDT [facility] Specific [place] Urine 1.020 1.003 - 1.035 12/02/2021 3:57 [...] URINE O RDERABLES [facility] [address] [facility] [phone] * TSH with free T4 reflex (11/17/2021 7:16 AM SOFTWARE DEVELOPER) TSH 0.69 0.40 - 4.00 mU/L 11/18/2021 4:49 PM SOFTWARE DEVELOPER [facility] Blood STRUCTURE OF RIGHT UPPER LIMB / Unknown Venipuncture / Unknown 11/17/2021 7:16 AM SOFTWARE DEVELOPER 11/17/2021 7:16 AM SOFTWARE DEVELOPER Chance Bundy PA-C LAB - BLOOD ORDE JENNIFER [facility] [address] [facility], [address] [place] [phone], [facility] [phone] * Albumin Random Urine Quantitative with Creat Ratio (11/17/2021 7:16 AM SOFTWARE DEVELOPER) Creatinine Urine mg/dL 70 mg/dL 11/17/2021 4:27 PM SOFTWARE DEVELOPER [facility] Albumin Urine mg/L <5 mg/L 11/17/2021 4:27 PM SOFTWARE DEVELOPER [facility] Albumin Urine mg/g Cr 11/17/2021 4:27 PM SOFTWARE DEVELOPER [facility] Comment:Unable to calculate: ??Urine creatinine or albumin value below detectable level Urine MID-STREAM URINE SPECIMEN / Unknown Non-blood Collection / Unknown 11/17/2021 7:16 AM SOFTWARE DEVELOPER 11/17/2021 7:16 AM SOFTWARE DEVELOPER Chance Bundy PA-C LAB - URINE ORDE RABAMANDA [facility] [address] [place] [address] Lab (no room number, 1st floor of clinic) [place] [address], [facility] [phone] * (ABNORMAL) Lipid panel reflex to direct LDL Fasting (11/17/2021 7:16 AM SOFTWARE DEVELOPER) Cholesterol 152 <200 mg/dL 11/18/2021 4:49 PM SOFTWARE DEVELOPER [facility] Triglycerides 308(H) <150 mg/dL 11/18/2021 4:49 PM SOFTWARE DEVELOPER [facility] Direct Measure HDL 36(L) >=50 mg/dL 11/18/2021 4:49 PM SOFTWARE DEVELOPER [facility] LDL Cholesterol Calculated 54 <=100 mg/dL 11/18/2021 4:49 PM SOFTWARE DEVELOPER [facility] Non HDL Cholesterol 116 <130 mg/dL 11/18/2021 4:49 PM SOFTWARE DEVELOPER [facility] Patient Fasting > 8hrs? Yes 11/18/2021 4:49 PM SOFTWARE DEVELOPER [facility] Blood STRUCTURE OF RIGHT UPPER LIMB / Unknown Venipuncture / Unknown 11/17/2021 7:16 AM SOFTWARE DEVELOPER 11/17/2021 7:16 AM SOFTWARE DEVELOPER Narrative [facility] - 11/18/2021 4:49 PM SOFTWARE DEVELOPER Cholesterol Desirable: ??<200 mg/dL Triglycerides Normal: ??Less [...] BLOOD ANNA RODRIGUEZ [facility] [address] [facility] [address], [address] [place] [address], [place] [phone] LABORATORY [facility] [address] Lab (no room number, 1st floor of clinic) [place] [address], [place] [phone] * (ABNORMAL) Comprehensive metabolic panel (BMP + Alb, Alk Phos, ALT, AST, Total. Bili, TP) (11/17/2021 7:16 AM SOFTWARE DEVELOPER) Sodium 138 133 - 144 mmol/L 11/18/2021 4:49 PM SOFTWARE DEVELOPER [facility] Potassium 4.7 3.4 - 5.3 mmol/L 11/18/2021 4:49 PM SOFTWARE DEVELOPER [facility] Chloride 103 94 - 109 mmol/L 11/18/2021 4:49 PM SOFTWARE DEVELOPER [facility] Carbon Dioxide (CO2) 27 20 - 32 mmol/L 11/18/2021 4:49 PM SOFTWARE DEVELOPER [facility] Anion Gap 8 3 - 14 mmol/L 11/18/2021 4:49 PM SOFTWARE DEVELOPER [facility] Urea Nitrogen 16 7 - 30 mg/dL 11/18/2021 4:49 PM SOFTWARE DEVELOPER [facility] Creatinine 1.24(H) 0.52 - 1.04 mg/dL 11/18/2021 4:49 PM SOFTWARE DEVELOPER [facility] Calcium 9.1 8.5 - 10.1 mg/dL 11/18/2021 4:49 PM SOFTWARE DEVELOPER [facility] Glucose 78 70 - 99 mg/dL 11/18/2021 4:49 PM SOFTWARE DEVELOPER [facility] Alkaline Phosphatase 100 40 - 150 U/L 11/18/2021 4:49 PM SOFTWARE DEVELOPER [facility] AST 21 0 - 45 U/L 11/18/2021 4:49 PM SOFTWARE DEVELOPER [facility] ALT 26 0 - 50 U/L 11/18/2021 4:49 PM SOFTWARE DEVELOPER [facility] Protein Total 7.4 6.8 - 8.8 g/dL 11/18/2021 4:49 PM SOFTWARE DEVELOPER [facility] Albumin 3.6 3.4 - 5.0 g/dL 11/18/2021 4:49 PM SOFTWARE DEVELOPER [facility] Bilirubin Total 0.4 0.2 - 1.3 mg/dL 11/18/2021 4:49 PM SOFTWARE DEVELOPER [facility] GFR Estimate 52(L) >60 mL/min/1.7 3m2 11/18/2021 4:49 PM SOFTWARE DEVELOPER [facility] Comment:Effective August 182020 eGFRcr in adults is calculated using the 2020 CKD-EPI creatinine equation which includes age and gender (Gloria et al., NEJ, DOI: 10.1056/TIEOse7104306) Blood STRUCTURE OF RIGHT UPPER LIMB / Unknown Venipuncture / Unknown 11/17/2021 7:16 AM SOFTWARE DEVELOPER 11/17/2021 7:16 AM SOFTWARE DEVELOPER Chance Bundy PA-C LAB - BLOOD ANNA RODRIGUEZ [facility] [address] [facility], [address] [phone] [phone] * MA Screen Bilateral w/Sunny (10/13/2021 3:39 PM SOFTWARE DEVELOPER) Anatomical Region Laterality Modality Breast Bilateral Mammography Narrative 10/14/2021 8:52 AM SOFTWARE DEVELOPER BILATERAL FULL FIELD DIGITAL SCREENING MAMMOGRAM WITH [...] LAB - BLOOD ANNA RODRIGUEZ RH LABORATORY [facility] [address] Lab (1st floor, no room number) [place] [address], [facility] [phone] * Hepatitis C Screen Reflex to HCV RNA Quant and Genotype (09/23/2020 9:03 AM SOFTWARE DEVELOPER) Hepatitis C Antibody Nonreactive NR^Nonre active 09/23/2020 4:55 PM SOFTWARE DEVELOPER [facility] Comment: Assay performance characteristics have not been established for newborns, infants, and children Blood specimen (specimen) 09/23/2020 9:03 AM SOFTWARE DEVELOPER 09/23/2020 9:04 AM SOFTWARE DEVELOPER Chance Bundy PA-C LAB - BLOOD ANNA RODRIGUEZ [facility] [address] [place] [address] * HPV High Risk Types DNA Cervical (09/23/2020 8:44 AM SOFTWARE DEVELOPER) HPV Source [facility] 09/23/2020 8:34 AM SOFTWARE DEVELOPER [facility] HPV 16 DNA Negative NEG^Nega tive 09/29/2020 3:34 PM SOFTWARE DEVELOPER [facility] HPV 18 DNA Negative NEG^Nega tive 09/29/2020 3:34 PM SOFTWARE DEVELOPER [facility] Other HR HPV Negative NEG^Nega tive 09/29/2020 3:34 PM SOFTWARE DEVELOPER [facility] Final Diagnosis This patient's sample is negative for HPV DNA. 09/29/2020 3:34 PM SOFTWARE DEVELOPER [facility] Comment: This test was developed and its performance characteristics determined by the [facility], Molecular Diagnostics Laboratory. It has not [...] Specimen Description Cervical Cells 09/23/2020 8:34 AM SOFTWARE DEVELOPER [facility] Cervical Cells CERVIX UTERI STRUCTURE / Unknown 09/23/2020 8:44 AM SOFTWARE DEVELOPER 09/23/2020 9:03 AM SOFTWARE DEVELOPER Chance Bundy PA-C LAB - BLOOD ANNA RODRIGUEZ [address] [address] * Pap imaged thin layer screen with HPV - recommended age 30 - 65 years (select HPV order below) (09/23/2020 8:34 AM SOFTWARE DEVELOPER) PAP ELISEO Pastor Report Patient Name: YENNI DYSON MR#: [id number] Specimen #: [id number] Collected: 09/23/2020 Received: 09/24/2020 [...] adenocarcinomas or other cancers. COLLECTION SITE: Client: ??[facility] Location: [facility]) The technical component of this testing was completed at the [facility], with the professional component performed at the [facility], [address] [place] [phone] ([phone]) COPATH Cytologic material (specimen) 09/23/2020 8:34 AM SOFTWARE DEVELOPER 09/24/2020 11:15 AM SOFTWARE DEVELOPER Chance Bundy PA-C LAB - OPTIME CLI NICAL SPECIMEN COPATH * COLONOSCOPY (09/29/2019 8:14 AM SOFTWARE DEVELOPER) COLONOSCOPY [facility] Patient Name: Yenni Dyson ? Procedure Date: [...] # [id number], ?[place] # [id number], SN # [id number] was introduced through ?the anus and advanced [...] Electronically signed by Danielle Rapp M.D. _ Beitna Rapp MD 09/29/2019 9:24:22 AM I was physically present for the entire viewing portion of the exam. Betina Rapp MD Number of Addenda: 0 Note Initiated On: 09/29/2019 8:14 AM MRN: ?[id number] Procedure Date: ? 09/29/2019 8:14:18 AM Scope Withdrawal Time: 0 hours 13 minutes 33 seconds Total Procedure Duration: 0 hours 19 minutes 46 seconds Estimated Blood Loss: ? none Scope In: 9:00:41 AM Scope Out: 9:20:27 AM RADIOLOGY RESULTS 09/29/2019 8:14 AM SOFTWARE DEVELOPER Heber Glover MD PROCEDURES RADIOLOGY RESULTS * PHQ-9 DEPRESSION SCREENING ORDER (07/23/2019) Pathologist [facility] PHQ9 SCORE 5 Narrative Caro Marino - 07/23/2019 [facility] VISIT NOTE Provider Outside OTHER * (ABNORMAL) Drug Abuse Screen Panel 13, Urine (Pain Care Package) (07/11/2018 2:01 PM CDT) Pathologist [facility] Cannabinoids (99-pfw-0-carboxy- 9-THC) Not Detected NDET^Not Detected ng/mL 07/11/2018 5:33 PM CDT [facility] Comment:Cutoff for a negativ e cannabinoid is 50 ng/mL or less. Phencyclidine (Phencyclidine) Not Detected NDET^Not Detected ng/mL 07/11/2018 5:33 PM CDT [facility] Comment:Cutoff for a negativ e PCP is 25 ng/mL or less. Cocaine (Benzoylecgonine) Not Detected NDET^Not Detected ng/mL 07/11/2018 5:33 PM CDT [facility] Comment:Cutoff for a negativ e cocaine is 150 ng/ml or less. Methamphetamine (d-Methamphetamine ) Not Detected NDET^Not Detected ng/mL 07/11/2018 5:33 PM CDT [facility] Comment:Cutoff for a negativ e methamphetamine is 500 ng/ml or less. Opiates (Morphine) Detected, Abnormal Result(A) NDET^Not Detected ng/mL 07/11/2018 5:33 PM CDT [facility] Comment: Cutoff for a positive opiate is greater than 100 ng/ml. This is an unconfirmed screening result to be used for medical purposes only. Order [id number] for confirmation or individual confirmation tests to [facility]. Amphetamine (d-Amphetamine) Not Detected NDET^Not Detected ng/mL 07/11/2018 5:33 PM CDT [facility] Comment:Cutoff for a negativ e amphetamine is 500 ng/mL or less. Benzodiazepines (Nordiazepam) Not Detected NDET^Not Detected ng/mL 07/11/2018 5:33 PM CDT [facility] Comment:Cutoff for a negativ e benzodiazepine is 150 ng/ml or less. Tricyclic Antidepressants (Desipramine) Detected, Abnormal Result(A) NDET^Not Detected ng/mL 07/11/2018 5:33 PM CDT [facility] Comment: Cutoff for a positive tricyclic antidepressant is greater than 300 ng/ml. This is an unconfirmed screening result to be used for medical purposes only. Order [id number] for confirmation or individual confirmation tests to [facility]. Methadone (Methadone) Not Detected NDET^Not Detected ng/mL 07/11/2018 5:33 PM CDT [facility] Comment:Cutoff for a negativ e methadone is 200 ng/ml or less. Barbiturates (Butalbital) Not Detected NDET^Not Detected ng/mL 07/11/2018 5:33 PM CDT [facility] Comment:Cutoff for a negativ e barbituate is 200 ng/ml or less. Oxycodone (Oxycodone) Not Detected NDET^Not Detected ng/mL 07/11/2018 5:33 PM CDT [facility] Comment:Cutoff for a negativ e Oxycodone is 100 ng/mL or less. Propoxyphene (Norpropoxyphene) Not Detected NDET^Not Detected ng/mL 07/11/2018 5:33 PM CDT [facility] Comment:Cutoff for a negativ e propoxyphene is 300 ng/ml or less Buprenorphine (Buprenorphine) Not Detected NDET^Not Detected ng/mL 07/11/2018 5:33 PM CDT [facility] Comment:Cutoff for a negativ e buprenorphine is 10 ng/ml or less Urine specimen (specimen) 07/11/2018 2:01 PM CDT 07/11/2018 2:02 PM CDT Heber Glover MD LAB - URINE ORD ERABLES [facility] [address] [place] [address] * HIV Screening (07/11/2018 10:09 AM CDT) HIV Antigen Antibody Combo Nonreactive NR^Nonrea ctive 07/12/2018 9:42 AM CDT [facility] Comment:HIV-1 p24 Ag & HIV-1 /HIV-2 Ab Not Detected Blood specimen (specimen) 07/11/2018 10:09 AM CDT 07/11/2018 10:10 AM CDT Heber Glover MD LAB - BLOOD ORD ERABLES Performing Organization Address City/[facility] Co de Phone Number [facility] [address] [place], [place] [phone] [place] [address] * CT Chest/Abdomen/Pelvis w Contrast (04/16/2016 3:09 [...] Advance Directives For more information, please contact: [phone] * Full Code (Latest Code Status on File) Date Activated Date Inactivated Comments 06/27/2017 4:33 PM 06/28/2017 4:51 PM * Full Code Date Activated Date Inactivated Comments 07/07/2016 2:47 PM 06/27/2017 4:33 PM * Full Code Date Activated Date Inactivated Comments 07/06/2016 5:24 PM 07/07/2016 2:47 PM Care Teams Gym Teacher Relationship Specialty Start Date End Date Toma Arguello NP [facility] [address] [place] [address] Nurse Practitioner Nurse Practitioner Psych/Mental Health 04/11/17 Laura Us MD [facility] [address] [place] [address] Gastroenterology 12/20/18 Tierra Cancino PA-C [address] [place] [address] Physician Teaching Music Lessons Urology 11/17/21 Haven Buckner, ASBESTOS REMOVER [address] [place] [address] [id number] Assigned PCP 05/19/23
--- OUTSIDE RECORDS SUMMARY | 2024-04-10 08:19 | XMS_ITS | Clinical Summary ---
Author Organization [facility] Address [address] [place] [address] Care Team Providers Care Reuse Technician Name Role Phone Elsewhere, Pcp Primary Care Provider Unavailabl e Source Comments Patient records contain information from all sites at [facility]. For routine questions regarding patient records, call [phone] during business hours, M-F 8:00 AM - 5:00 PM Central Time. Record requests for emergency care only can be directed to [phone] at any time.[facility] Allergies Active Allergy Reactions Criticality Noted Date [...] Comments Blood Pressure 117/79 08/01/2022 2:07 PM POWER HAIR CLIPPER Pulse 101 08/01/2022 2:07 PM POWER HAIR CLIPPER Temperature 36.8 ??C (98.2 ??F) 07/10/2022 4:00 AM CD T Respiratory Rate 18 07/10/2022 4:00 AM CDT Oxygen Saturation 90% 07/10/2022 7:00 AM CDT Inhaled Oxygen Concentration - - Weight 96.1 kg (211 lb 13.8 oz) 08/01/2022 2:07 PM POWER HAIR CLIPPER Height 166.5 cm (5' 5.55) 08/01/2022 2:07 PM CS T Body Mass Index 34.67 08/01/2022 2:07 PM POWER HAIR CLIPPER Plan of Treatment Health Maintenance Due Date [...] history exists Depression Screening (Annual PHQ-2) 09/17/2023 Influenza Vaccine (#1) 2024 , 07/27/2022, 07/07/2021, Additional history exists Fasting Glucose for Diabetes Screening 07/10/2025 07/10/2022, 11/17/2021, 06/06/2021, Additional history exists Lipid (Cholesterol) Screening 11/17/2026, 09/23/2020, 01/20/2020, Additional history exists DTaP,Tdap,and Td Vaccines (3 - Td or Tdap) 11/16/2031 11/15/2021, 08/15/2011 Zoster Vaccines Completed 08/04/2020, 05/30/2020 Procedures Procedure Name Priority Date/Time Associated Diagnosis [...] CDT Jorge Browne D.O. LAB BLOOD ADD-ON [facility] [address] [place] [address], [facility] NPRG [facility] [address] [place] [address] * BI Breast Screening Bilateral (01/21/2015 8:30 [...] mg/dL Blood 12/17/2014 9:20 AM CDT Fabiola Zapata M.D. LAB BLOOD ADD-ON POWERCHART from Last 3 Months or Most Recently Relevant to Health Maintenance Care Teams Reuse Technician Relationship Specialty Start Date End Date Elsewhere, Pcp PCP - General Internal Medicine 07/10/22
--- OUTSIDE RECORDS SUMMARY | 2024-04-10 08:19 | XMS_ITS ---
Author Organization [facility] Address [address] [place] [address] Care Team Providers Care Quality Cloth Tester Name Role Phone Unavailable Unavailable Unavailable Surgery Details Not on file Complications Check Surgery Details section. Procedure Estimated Blood Loss Check Surgery Details section. Procedure Findings Check Surgery Details section. Procedure Specimens Taken Check Surgery Details section.
--- OUTSIDE RECORDS SUMMARY | 2024-04-10 08:20 | XMS_ITS | Encounter Summary ---
Author Organization [place] Address [address] [facility] [place] [address] Care Team Providers Care Entry Level Java Developer Name Role Phone Toma Arguello Arun ROBERT Unavailable [phone] Laura Us MD Unavailable [facility] Primary Care Provider Jas Bojorquez DO Unavailable [phone] CNP Unavailable [phone] Jenise España MD Unavailable Unavailable Tierra Cancino PA-C Unavailable [phone] Luh Acharya-C Primary Care Provider + Luh Acharya PA-C Unavailable [phone] Tierra Cancino PA-C Unavailable [phone] Haven Buckner CNP Unavailable Luh Acharya-C Unavailable [phone] Haven Buckner CNP Unavailable Reason for Visit * Reason Onset Date Comments everbillt Communication 04/14/2021 Encounter Details Date Type Department Care Team (Latest Contact Info) Description 04/14/2021 MyC Medical Advice [address] [phone] Judd Waller Communication Social History Tobacco Use [...] documented as of this encounter Care Teams Entry Level Java Developer Relationship Specialty Start Date End Date [facility] - [address] [phone] PCP - General 10/06/20 11/20/21 Luh Acharya PA-C [address] [place] [address] [phone] PCP - General Family Medicine 11/21/21 01/02/23 Toma Arguello NP [address] 992177 Nurse Practitioner Nurse Practitioner Psych/Mental Health 04/11/17 Laura Us MD [address] [address] Gastroenterology 12/20/18 Jas Bojorquez DO [address] [place] [address] Assigned PCP 04/01/21 05/21/21 Haven Buckner, HOSPITAL MORTICIAN [address] [place] [address] Assigned PCP 05/22/21 11/26/21 Jenise España MD Assigned Heart and Vascular Provider 07/24/21 11/17/22 Tierra Cancino PA-C [address] [place] [address] Physician Floral Designer Salesperson Urology 11/17/21 Luh Acharya PA-C [address] [place] [address] Assigned PCP 11/27/21 12/31/21 Tierra Cancino PA-C [address] [place] [address] Assigned Surgical Provider 12/11/21 06/08/23 Haven Buckner, HOSPITAL MORTICIAN [address] [place] [address] Assigned PCP 01/01/22 12/22/22 Luh Acharya PA-C [address] [place] [address] Assigned PCP 12/23/22 05/18/23 Haven Buckner, NICOLE [address] [place] [address] Assigned PCP 05/19/23 documented as of this encounter
--- OUTSIDE RECORDS SUMMARY | 2024-04-10 08:20 | XMS_ITS | Encounter Summary ---
Author Organization [place] Address [address] [place] [address] Care Team Providers Care Insolvency Practitioner Name Role Phone Toma Arguello YESICA Unavailable [phone] Laura Us MD Unavailable Luh Acharya-C Unavailable +- [phone] [facility] Primary Care Provider Jas Bojorquez DO Unavailable +[phone] Haven Buckner CNP Unavailable [phone] Jenise España MD Unavailable Unavailable Tierra Cancino PA-C Unavailable [phone] Luh Acharya-C Primary Care Provider + Luh Acharya-C Unavailable +- [phone] Tierra Cancino-C Unavailable [phone] Haven Buckner CNP Unavailable [phone] Luh Acharya-C Unavailable [phone] Haven Buckner CNP Unavailable Reason for Visit * Reason Onset Date Comments MyChart Communication 02/21/2021 Encounter Details Date Type Department Care Team (Late st Contact Info) Description 02/21/2021 MyC Medical Advice [address] [phone] Haven Buckner, ELECTRONIC COILS SUPERVISOR [address] [place] [address] MyChart Communication Social History Tobacco Use Types [...] advise Thank you Manisha Patel RN, BSN [place] Triage documented in this encounter Plan of [...] Total Score: 1 07/27/20 20 2:05 PM PRESS HAND SUPERVISOR documented as of this encounter Care Teams Insolvency Practitioner Relationship Specialty Start Date End Date Clinic - [address] [address] PCP - General 10/06/20 11/20/21 Luh Acharya PA-C [address] [place] [address] PCP - General Family Medicine 11/21/21 01/02/23 Toma Arguello NP [address] [address] Nurse Practitioner Nurse Practitioner Psych/Mental Health 04/11/17 Laura Us MD [address] [address] Gastroenterology 12/20/18 Luh Acharya PA-C [address] [place] [address] Assigned PCP 06/20/20 03/31/21 Jas Bojorquez DO [address] [place] [address] Assigned PCP 04/01/21 05/21/21 Haven Buckner, NICOLE [address] [place] [address] Assigned PCP 05/22/21 11/26/21 Jenise España MD Assigned Heart and Vascular Provider 07/24/21 11/17/22 Tierra Cancino PA-C [address] [place] [address] Physician Supervisor Offset Plate Preparation Urology 11/17/21 Luh Acharya PA-C [address] [place] [address], [place] [address] Assigned PCP 11/27/21 12/31/21 Tierra Cancino PA-C [address] [place] [address] Assigned Surgical Provider 12/11/21 06/08/23 Haven Buckner, NICOLE [address] [place] [address] Assigned PCP 01/01/22 12/22/22 Luh Acharya PA-C [address] [place] [address] Assigned PCP 12/23/22 05/18/23 Haven Buckner, NICOLE [address] [place] [address] Assigned PCP 05/19/23 documented as of this encounter
--- OUTSIDE RECORDS SUMMARY | 2024-04-10 08:20 | XMS_ITS | Encounter Summary ---
Author Organization [place] Address [address] [place] [address] Care Team Providers Care Beam Saw Operator Name Role Phone Toma Arguello YESICA Unavailable [phone] Laura Us MD Unavailable [facility] Primary Care Provider Haven Buckner CNP Unavailable [phone] Jenise España MD Unavailable Unavailable Tierra Cancino-C Unavailable [phone] Luh Acharya-C Primary Care Provider + Luh Acharya PA-C Unavailable +- [phone] Tierra Cancino-C Unavailable [phone] Haven Buckner CNP Unavailable [phone] Luh Acharya PA-C Unavailable + [phone] Haven Buckner CNP Unavailable [phone] Reason for Visit * Reason Comments Medication Refill Encounter Details Date Type Department Care Team (Late st Contact Info) Description 10/20/[address] [phone] Luh Acharya PA-C [address] [place], [place] [address] Medication Refill Social History Tobacco Use Types [...] COVID-19? No / Unsure 10/13/2021 3:21 PM SINGING TELEGRAM PERFORMER documented as of this encounter Miscellaneous Notes * Telephone Encounter - Ellen Retana RN - 10/21/2021 12:09 PM SINGING TELEGRAM PERFORMER LDL Cholesterol Calculated Date Value Ref Range Status 09/23/2020 55 <100 mg/dL Final Comment: Desirable: <100 mg/dl Enedina refill of 30 days given Appointments in Next Year Nov 15, 2021 1:40 PM (Arrive by 1:20 PM) Adult Preventative Visit with Luh Acharya PA-C [facility] ([facility] ) [phone] Ellen Lemon RN [facility] Triage ING TELEGRAM PERFORMER documented in this encounter Plan of Treatment Not on file documented as of this encounter Visit Diagnoses Diagnosis Hyperlipidemia LDL goal <130 Other and unspecified hyperlipidemia documented in this encounter Additional Health Concerns Infection Onset Date Last Indicated Resolved Time Rule Out COVID-19 12/19/2021 12/19/2021 12/20/2021 1:02 PM CDT Assessment Noted Time PHQ-9 Depression Total Score: 2 02/23/20 8:02 AM CDT documented as of this encounter Care Teams Beam Saw Operator Relationship Specialty Start Date End Date Clinic - [facility] [address] [place] [address] PCP - General 10/06/20 11/20/21 Luh Acharya PA-C [address] [place] [address] PCP - General Family Medicine 11/21/21 01/02/23 Toma Arguello NP [address] [address] [place] [address] Nurse Practitioner Nurse Practitioner Psych/Mental Health 04/11/17 Laura Us MD [address] [place], [place] 742947 Gastroenterology 12/20/18 Haven Buckner, NICOLE [address] [place] [address] [phone] Assigned PCP 05/22/21 11/26/21 Jenise España MD Assigned Heart and Vascular Provider 07/24/21 11/17/22 Tierra Cancino PA-C [address] [place] [address] Physician Printing Roller Polisher Urology 11/17/21 Luh Acharya PA-C [address] [place] [address] Assigned PCP 11/27/21 12/31/21 Tierra Cancino PA-C [address] [place] [address] Assigned Surgical Provider 12/11/21 06/08/23 Haven Buckner, INFRASTRUCTURE SOLUTIONS ARCHITECT [address] [place] [address] Assigned PCP 01/01/22 12/22/22 Luh Acharya PA-C [address] [place] [address] Assigned PCP 12/23/22 05/18/23 Haven Buckner, INFRASTRUCTURE SOLUTIONS ARCHITECT [address] [place] [address] Assigned PCP 05/19/23 documented as of this encounter
--- OUTSIDE RECORDS SUMMARY | 2024-04-10 08:20 | XMS_ITS | Encounter Summary ---
Author Organization [place] Address [address] [facility] [place] [address] Care Team Providers Care Lithographing Machine Operator Name Role Phone Toma Arguello YESICA Unavailable [phone] Laura Us MD Unavailable Luh Acharya-C Unavailable +- [phone] [facility] Primary Care Provider Jas Bojorquez DO Unavailable +[phone] Haven Buckner CNP Unavailable +[phone] Jenise España MD Unavailable Unavailable Tierra Cancino-C Unavailable [phone] Luh Acharya-C Primary Care Provider + Luh Acharya-C Unavailable + [phone] Tierra Cancino-C Unavailable [phone] Haven Buckner CNP Unavailable [phone] Luh Acharya-C Unavailable + [phone] Haven Buckner CNP Unavailable [phone] Reason for Visit * Reason Comments Medication Refill Encounter Details Date Type Department Care Team ([facility] st Contact Info) Description 02/01/2021 Refill [facility] [address] [place] [address] [phone] Haven Buckner, MINK RANCHER [address] [place] [address] Medication Refill Social History Tobacco Use Types [...] List Complete: Yes Last Office Visit with [facility] primary care provider: 01/06/2021 Future Office visit: [...] CDAUT, No results found for: COMDAT, Cannabinoids (50-[id number]-5-[id number]) Date Value Ref Range Status 07/11/2018 Not [...] be used for medical purposes only. Order [id number] for confirmation or individual confirmation tests to [facility]. Amphetamine (d-Amphetamine) Date Value Ref Range Status [...] be used for medical purposes only. Order [id number] for confirmation or individual confirmation tests to [facility]. Methadone (Methadone) Date Value Ref Range Status [...] be electronically transmitted to pharmacy by provider [email or web address] Routing refill request to provider for review/approval because: Drug not on the [facility] refill protocol Renay Barlow RN [facility] documented in this encounter Plan of Treatment [...] Total Score: 1 07/27/20 20 2:05 PM LEAD SOLUTIONS ARCHITECT documented as of this encounter Care Teams Lithographing Machine Operator Relationship Specialty Start Date End Date Clinic - [address] [address] PCP - General 10/06/20 11/20/21 Luh Acharya PA-C [address] [place] [address] 080532 PCP - General Family Medicine 11/21/21 01/02/23 Toma Arguello NP [address] [address] [place] [address] Nurse Practitioner Nurse Practitioner Psych/Mental Health 04/11/17 Laura Us MD [address] [address] Gastroenterology 12/20/18 Luh Acharya, REFUGIO [address] [place] [address] 947192 Assigned PCP 06/20/20 03/31/21 Jas Bojorquez DO [address] [place] [address] [id number] Assigned PCP 04/01/21 05/21/21 Haven Buckner CNP [address] [place] [address] [phone] Assigned PCP 05/22/21 11/26/21 Jenise España MD Assigned Heart and Vascular Provider 07/24/21 11/17/22 Tierra Cancino PA-C [address] [place] [address] Physician Dissolver Operator Urology 11/17/21 Luh Acharya PA-C [address] [place] [address] Assigned PCP 11/27/21 12/31/21 Tierra Cancino PA-C [address] [place] [address] Assigned Surgical Provider 12/11/21 06/08/23 Haven Buckner, MINK RANCHER [address] [facility] [place] [address] Assigned PCP 01/01/22 12/22/22 Luh Acharya PA-C [address] [place] [place] [address], [place] [address] Assigned PCP 12/23/22 05/18/23 Haven Buckner, MINK RANCHER [address] [place] [place] [address], [place] [address] Assigned PCP 05/19/23 documented as of this encounter
--- OUTSIDE RECORDS SUMMARY | 2024-04-10 08:20 | XMS_ITS | Encounter Summary ---
Author Organization [place] Address [address] [facility] [place] [address] Care Team Providers Care Shellfish Shucker Name Role Phone Toma Arguello YESICA Unavailable [phone] Laura Us MD Unavailable Jenise España [...] st Contact Info) Description 12/06/2021 [facility] [address] [phone] Luh Acharya PA-C [address] [place] [address] 198492 MyChart Communication Social History Tobacco Use Types [...] Total Score: 5 10/25/19 22 7:03 AM PLASTIC SHEETING CUTTER documented as of this encounter Care Teams Shellfish Shucker Relationship Specialty Start Date End Date Luh Acharya PA-C [address] [place] [address] 899262 PCP - General Family Medicine 11/21/21 01/02/23 Toma Arguello NP [address] [address] Nurse Practitioner Nurse Practitioner Psych/Mental Health 04/11/17 Laura Us MD [place] [place] [address] Gastroenterology 12/20/18 Jenise España MD Assigned Heart and Vascular Provider 07/24/21 11/17/22 Tierra Cancino PA-C [address] [place] [address] Physician Scheduling Administrator Urology 11/17/21 Luh Acharya PA-C [address] [place] [address], [place] [address] Assigned PCP 11/27/21 12/31/21 Tierra Cancino PA-C [address] [place] [address] Assigned Surgical Provider 12/11/21 06/08/23 Haven Buckner, IT PROGRAM MANAGER [address] [place] [address], [place] [address] Assigned PCP 01/01/22 12/22/22 Luh Acharya PA-C [address] [place] [address], [place] [address] Assigned PCP 12/23/22 05/18/23 Haven Buckner, IT PROGRAM MANAGER [address] [place] [address], [place] [address] Assigned PCP 05/19/23 documented as of this encounter
--- OUTSIDE RECORDS SUMMARY | 2024-04-10 08:20 | XMS_ITS | Encounter Summary ---
Author Organization [place] Address [address] [facility] [place] [address] Care Team Providers Care Roller Name Role Phone Toma Arguello YESICA Unavailable [phone] Laura Us MD Unavailable Luh Acharya-C Unavailable +- [phone] [facility] Primary Care Provider Jas Bojorquez DO Unavailable +[phone] Haven Buckner CNP Unavailable [phone] Jneise España MD Unavailable Unavailable Tierra Cancino PA-C Unavailable [phone] Luh Acharya-C Primary Care Provider + Luh Acharya-C Unavailable +- [phone] Tierra Cancino-C Unavailable [phone] Haven Buckner CNP Unavailable [phone] Luh Acharya-C Unavailable [phone] Haven Buckner CNP Unavailable Reason for Visit * Reason Onset Date Comments MyChart Communication 12/22/2020 Encounter Details Date Type Department Care Team (Late st Contact Info) Description 12/22/2020 MyC Medical Advice M [address] [phone] Luh Acharya PA-C [address] [place] [address] MyChart Communication Social History Tobacco Use Types [...] Hinton RN - 12/23/2020 1:18 PM CDT [employer] sent to advise OV/VV Awaiting reply. Juan Pablo Hernandez RN [facility] Triage * Telephone Encounter - Haven Navarro [...] last office notes. Persistent insomnia- managed by [facility] of Neurology - Dr. Nash Chin. [...] discuss this and possible alternatives. Haven Navarro, ROD HANGER-BC * Telephone Encounter - Manisha Patel RN - 12/22/2020 10:55 AM CDT 11/18/2020 Please see my chart message below Please review and advise Thank you Manisha Patel RN, BSN [place] Triage documented in this encounter Plan of [...] Total Score: 1 07/27/20 20 2:05 PM AUTO ADJUDICATION SPECIALIST documented as of this encounter Care Teams Roller Relationship Specialty Start Date End Date Clinic - [address] [phone] PCP - General 10/06/20 11/20/21 Luh Acharya PA-C [address] [place] [address] [phone] PCP - General Family Medicine 11/21/21 01/02/23 Toma Arguello NP [address] [address] Nurse Practitioner Nurse Practitioner Psych/Mental Health 04/11/17 Laura Us MD [address] [address] Gastroenterology 12/20/18 Luh Acharya PA-C [address] [place] [address] Assigned PCP 06/20/20 03/31/21 Jas Bojorquez DO [address] [place] [address] Assigned PCP 04/01/21 05/21/21 Haven Buckner CNP [address] [place] [address] Assigned PCP 05/22/21 11/26/21 Jenise España MD Assigned Heart and Vascular Provider 07/24/21 11/17/22 Tierra Cancino PA-C [address] [place] [address] Physician Dray Truck Driver Urology 11/17/21 Luh Acharya PA-C [address] [place] [address] Assigned PCP 11/27/21 12/31/21 Tierra Cancino PA-C [address] [place] [address] Assigned Surgical Provider 12/11/21 06/08/23 Haven Buckner CNP [address] [place] [address] Assigned PCP 01/01/22 12/22/22 Luh Acharya PA-C [address] [place] [address] Assigned PCP 12/23/22 05/18/23 Haven Buckner CNP [address] [place] [address] Assigned PCP 05/19/23 documented as of this encounter
--- OUTSIDE RECORDS SUMMARY | 2024-04-10 08:20 | XMS_ITS | Encounter Summary ---
Author Organization [place] Address [address] [facility] [place] [address] Care Team Providers Care Hairspring Studder Name Role Phone Toma Arguello Arun ROBERT Unavailable [phone] Laura Us MD Unavailable [facility] Primary Care Provider Jas Bojorquez DO Unavailable +[phone] BACKUP OPERATOR Unavailable [phone] Jenise España MD Unavailable Unavailable Tierra Cancino PA-C Unavailable [phone] Luh Acharya-C Primary Care Provider + Luh Acharya PA-C Unavailable +- [phone] Tierra Cancino PA-C Unavailable [phone] Haven Buckner CNP Unavailable [phone] Luh Acharya-C Unavailable +- [phone] Haven Buckner CNP Unavailable Encounter Details Date Type Department Care Team (Late st Contact Info) Description 04/15/2021 MyC Medical Advice [address] [facility] [place] [phone] Luh Acharya PA-C [address] [place] [address] [phone] Social History Tobacco Use Types Packs/Day Years [...] message sent Awaiting reply Manisha Patel RN, BSN [facility] [place] Triage documented in this encounter Plan of [...] documented as of this encounter Care Teams Hairspring Studder Relationship Specialty Start Date End Date Clinic - [facility] [address] [address] PCP - General 10/06/20 11/20/21 Luh Acharya PA-C [address] [place] [address] PCP - General Family Medicine 11/21/21 01/02/23 Toma Arguello PEOPLESOFT ANALYST [place] [place] [address] Nurse Practitioner Nurse Practitioner Psych/Mental Health 04/11/17 Laura Us MD [place] [address] [place], [place] 0850[address] Gastroenterology 12/20/18 Jas Bojorquez DO [address] [place] [address] [phone] Assigned PCP 04/01/21 05/21/21 Haven Buckner, BACKUP OPERATOR [address] [place] [address] 285322 Assigned PCP 05/22/21 11/26/21 Jenise España MD Assigned Heart and Vascular Provider 07/24/21 11/17/22 Tierra Cancino PA-C [address] [place] [address] Physician Reporting Coordinator Urology 11/17/21 Lhu Acharya PA-C [address] [place] [address] Assigned PCP 11/27/21 12/31/21 Tierra Cancino PA-C [address] [place], [place] [address] Assigned Surgical Provider 12/11/21 06/08/23 Haven Buckner, NICOLE [address] [place] [address], [place] [address] Assigned PCP 01/01/22 12/22/22 Luh Acharya PA-C [address] [place] [address], [place] [address] Assigned PCP 12/23/22 05/18/23 Haven Buckner, NICOLE [address] [place] [address] Assigned PCP 05/19/23 documented as of this encounter
--- OUTSIDE RECORDS SUMMARY | 2024-04-10 08:20 | XMS_ITS | Encounter Summary ---
Author Organization [place] Address [address] [facility] [place] [address] Care Team Providers Care Undercover Agent Name Role Phone Kathy Glover MD Primary Care Provider Toma Arguello NP Unavailable [phone] Laura Us MD Unavailable Luh Acharya-C Unavailable + [phone] [facility] Primary Care Provider Jas Bojorquez DO Unavailable [phone] MATE FIRST Unavailable +[phone] Jenise España MD Unavailable Unavailable Tierra Cancino-C Unavailable [phone] Luh Acharya-C Primary Care Provider + Luh Acharya-C Unavailable + [phone] Tierra Cancino-C Unavailable Haven Buckner MATE FIRST Unavailable [phone] Luh Acharya-C Unavailable +[phone] Haven Buckner MATE FIRST Unavailable [phone] Encounter Details Date Type Department Care Team (Late st Contact Info) Description 08/18/2020 MyC Medical Advice [address] [phone] Raina Thomas Social History Tobacco Use Types [...] Total Score: 1 07/27/20 20 2:05 PM BUILD MANAGER documented as of this encounter Care Teams Undercover Agent Relationship Specialty Start Date End Date Kathy Glover MD [address] [place] [address] PCP - General Family Practice 06/03/15 10/05/20 Clinic - [address] [address] PCP - General 10/06/20 11/20/21 Luh Acharya PA-C [address] [place] [address] 235[address] PCP - General Family Medicine 11/21/21 01/02/23 Toma Arguello NP [address] [address] Nurse Practitioner Nurse Practitioner Psych/Mental Health 04/11/17 Laura Us MD [address] [address] Gastroenterology 12/20/18 Luh Acharya PA-C [address] [place] [address] [phone] Assigned PCP 06/20/20 03/31/21 Jas Bojorquez DO [address] [place] [address] [phone] Assigned PCP 04/01/21 05/21/21 Haven Buckner, NICOLE [address] [place] [address] 476812 Assigned PCP 05/22/21 11/26/21 Jenise España MD Assigned Heart and Vascular Provider 07/24/21 11/17/22 Tierra Cancino PA-C [address] [place], [place] 515[address] Physician It Engineer Urology 11/17/21 Luh Acharya PA-C [address] [place] [address] 388962 Assigned PCP 11/27/21 12/31/21 Tierra Cancino PA-C [address] [place] [address] Assigned Surgical Provider 12/11/21 06/08/23 Haven Buckner, MATE FIRST [address] [place] [address]663 Assigned PCP 01/01/22 12/22/22 Luh Acharya PA-C [address] [place] [address] Assigned PCP 12/23/22 05/18/23 Haven Buckner, MATE FIRST [address] [place] [address] 22872 Assigned PCP 05/19/23 documented as of this encounter
--- OUTSIDE RECORDS SUMMARY | 2024-04-10 08:20 | XMS_ITS | Encounter Summary ---
Author Organization [place] Address [address] [facility] [place] [place] [address] Care Team Providers Care Interventional Radiology Rn Name Role Phone Toma Arguello YESICA Unavailable [phone] Laura Us MD Unavailable [facility] Primary Care Provider Haven Buckner CNP Unavailable [phone] Jenise España MD Unavailable Unavailable Tierra Cancino-C Unavailable [phone] Luh Acharya-C Primary Care Provider + Luh Acharya-C Unavailable +[phone] Tierra Cancino-C Unavailable [phone] Haven Buckner CNP Unavailable [phone] Luh Acharya PA-C Unavailable +[phone] Haven Buckner CNP Unavailable [phone] Reason for Visit * Reason Comments Medication Refill Encounter Details Date Type Department Care Team (Late st Contact Info) Description 07/20/2021 [facility] [address] [facility] [address] [place] [phone] Luh Acharya PA-C [address] [place] [address] Medication Refill Social History Tobacco Use Types [...] per RN protocol Manisha Patel RN, BSN [place] Triage documented in this encounter Plan of [...] documented as of this encounter Care Teams Interventional Radiology Rn Relationship Specialty Start Date End Date Clinic - [facility] [address] [place] [address] PCP - General 10/06/20 11/20/21 Luh Acharya PA-C [address] [place] [address] PCP - General Family Medicine 11/21/21 01/02/23 Toma Arguello TILE SETTER SUPERVISOR [facility] [address] [place] [address] Nurse Practitioner Nurse Practitioner Psych/Mental Health 04/11/17 Laura Us MD [facility] [address] [place] [address] Gastroenterology 12/20/18 Haven Buckner, NICOLE [address] [place] [address] Assigned PCP 05/22/21 11/26/21 Jenise España MD Assigned Heart and Vascular Provider 07/24/21 11/17/22 Tierra Cancino PA-C [address] [place] [address] Physician Drop Hammer Pile Driver Operator Urology 11/17/21 Luh Acharya PA-C [address] [place] [address] Assigned PCP 11/27/21 12/31/21 Tierra Cancino PA-C [address] [place] [address] Assigned Surgical Provider 12/11/21 06/08/23 Haven Buckner, NICOLE [address] [place] [address], [place] [address] Assigned PCP 01/01/22 12/22/22 Luh Acharya PA-C [address] [place] [address], [place] [address] Assigned PCP 12/23/22 05/18/23 Haven Buckner, NICOLE [address] [place] [address], [place] [address] Assigned PCP 05/19/23 documented as of this encounter
--- OUTSIDE RECORDS SUMMARY | 2024-04-10 08:20 | XMS_ITS | Encounter Summary ---
Author Organization [place] Address [address] [facility] [place] [address] Care Team Providers Care Retail Shift Leader Name Role Phone Toma Arguello YESICA Unavailable Laura Us MD Unavailable [facility] Primary Care Provider Haven Buckner CNP Unavailable [phone] Jenise España MD Unavailable Unavailable Tierra Cancino-C Unavailable [phone] Luh Acharya-C Primary Care Provider + Luh Acharya-C Unavailable +- [phone] Tierra Cancino-C Unavailable [phone] Haven Buckner CNP Unavailable [phone] Luh Acharya PA-C Unavailable [phone] Haven Buckner CNP Unavailable [phone] Reason for Visit * Reason Onset Date Comments Refill Request 08/26/2021 Encounter Details Date Type Department Care Team (Late st Contact Info) Description 08/26/2021 [address] [place] [phone] Luh Acharya PA-C [address] [place] [address] [phone] Refill Request Social History Tobacco Use Types [...] Manisha Patel RN - 08/31/2021 10:35 AM ARMATURE INSPECTOR Due for an Office visit for further refills, only fill for 30 days Manisha Patel RN, BSN [facility] [place] Triage TURE INSPECTOR documented in this encounter Plan of Treatment [...] documented as of this encounter Care Teams Retail Shift Leader Relationship Specialty Start Date End Date Clinic - [facility] [address] [address] PCP - General 10/06/20 11/20/21 Luh Acharya PA-C [address] [place] [address] PCP - General Family Medicine 11/21/21 01/02/23 Toma Arguello NP [place] [address] [place] [address] Nurse Practitioner Nurse Practitioner Psych/Mental Health 04/11/17 Laura Us MD [place] [address] [place], [place] 732697 Gastroenterology 12/20/18 Haven Buckner, SERVER ADMINISTRATOR [address] [place] [address] Assigned PCP 05/22/21 11/26/21 Jenise España MD Assigned Heart and Vascular Provider 07/24/21 11/17/22 Tierra Cancino PA-C [address] [place] [address] Physician Semiconductor Testing Group Leader Urology 11/17/21 Luh Acharya PA-C [address] [place] [address] Assigned PCP 11/27/21 12/31/21 Tierra Cancino PA-C [address] [place] [address] Assigned Surgical Provider 12/11/21 06/08/23 Haven Buckner, NICOLE [address] [facility] [place] [address] Assigned PCP 01/01/22 12/22/22 Luh Acharya PA-C [address] [facility] [place] [address] Assigned PCP 12/23/22 05/18/23 Haven Buckner, SERVER ADMINISTRATOR [address] [place] [address], [place] [address] Assigned PCP 05/19/23 documented as of this encounter
--- OUTSIDE RECORDS SUMMARY | 2024-04-10 08:20 | XMS_ITS | Encounter Summary ---
Author Organization [place] Address [address] [facility] [place] [address] Care Team Providers Care Crate Builder Name Role Phone Toma Arguello YESICA Unavailable [phone] Laura Us MD Unavailable [facility] Primary Care Provider Haven Buckner CNP Unavailable [phone] Jenise España MD Unavailable Unavailable Tierra Cancino-C Unavailable [phone] Luh Acharya-C Primary Care Provider + Luh Acharya PA-C Unavailable +- [phone] Tierra Cancino-C Unavailable [phone] Haven Buckner CNP Unavailable [phone] Luh Acharya PA-C Unavailable + [phone] Haven Buckner CNP Unavailable [phone] Reason for Visit * Reason Comments Medication Refill Encounter Details Date Type Department Care Team (Late st Contact Info) Description 09/07/[address] [phone] Haven Buckner, SHANK BURNISHER [address] [place] [address] [phone] Medication Refill Social History Tobacco Use Types [...] 09/08/2021 3:35 PM CST Prescription approved per [facility] Refill Protocol. NCE WHEEL ARM BURNISHER documented in this encounter Plan of Treatment [...] documented as of this encounter Care Teams Crate Builder Relationship Specialty Start Date End Date Clinic - [address] [address] PCP - General 10/06/20 11/20/21 Luh Acharya PA-C [address] [place] [address] PCP - General Family Medicine 11/21/21 01/02/23 Toma Arguello TENNIS CAMP INSTRUCTOR [facility] [address] [place] [address] Nurse Practitioner Nurse Practitioner Psych/Mental Health 04/11/17 Laura Us MD [facility] [address] [place] [address] Gastroenterology 12/20/18 Haven Buckner, SHANK BURNISHER [address] [place] [address] Assigned PCP 05/22/21 11/26/21 Jenise España MD Assigned Heart and Vascular Provider 07/24/21 11/17/22 Tierra Cancino PA-C [address] [place] [address] Physician Commercial Account Executive Urology 11/17/21 Luh Acharya PA-C [address] [place] [address] Assigned PCP 11/27/21 12/31/21 Tierra Cancino PA-C [address] [place] [address] Assigned Surgical Provider 12/11/21 06/08/23 Haven Buckner, SHANK BURNISHER [address] [place] [address] Assigned PCP 01/01/22 12/22/22 Luh Acharya PA-C [address] [place] [address] Assigned PCP 12/23/22 05/18/23 Haven Buckner, NICOLE [address] [place] [address] Assigned PCP 05/19/23 documented as of this encounter
--- OUTSIDE RECORDS SUMMARY | 2024-04-10 08:20 | XMS_ITS | Encounter Summary ---
Author Organization [place] Address [address] [facility] [place] [address] Care Team Providers Care Credit Charge Authorizer Name Role Phone Toma Arguello YESICA Unavailable [phone] Laura Us MD Unavailable [facility] Primary Care Provider Haven Buckner CNP Unavailable [phone] Jenise España MD Unavailable Unavailable Tierra Cancino-C Unavailable [phone] Luh Acharya-C Primary Care Provider + Luh Acharya-C Unavailable +- [phone] Tierra Cancino-C Unavailable [phone] Haven Buckner CNP Unavailable [phone] Luh Acharya PA-C Unavailable +-[phone] Haven Buckner CNP Unavailable [phone] Reason for Visit * Reason Comments Medication Refill Encounter Details Date Type Department Care Team (Late st Contact Info) Description 10/19/2021 [facility] [address] [facility] [address] [place] [address] Luh Acharya PA-C [address] [place] [address] Medication Refill Social History Tobacco Use Types [...] COVID-19? No / Unsure 10/13/2021 3:21 PM BRICK LAYER documented as of this encounter Miscellaneous Notes * Telephone Encounter - Juan Pablo Hinton RN - 10/20/2021 1:29 PM CST Prescription approved per [facility] Refill Protocol. Juan Pablo Hinton RN [facility] Triage K LAYER documented in this encounter Plan of Treatment [...] documented as of this encounter Care Teams Credit Charge Authorizer Relationship Specialty Start Date End Date Clinic - [facility] [address] [place] [address] PCP - General 10/06/20 11/20/21 Luh Acharya PA-C [address] [place] [address] PCP - General Family Medicine 11/21/21 01/02/23 Toma Arguello QUALITY ASSURANCE MONITOR [facility] [place] [address] [place] [address] Nurse Practitioner Nurse Practitioner Psych/Mental Health 04/11/17 Laura Us MD [place] [address] [place] [address] Gastroenterology 12/20/18 Haven Buckner, FREEZING MACHINE OPERATOR [address] [place] [address] Assigned PCP 05/22/21 11/26/21 Jenise España MD Assigned Heart and Vascular Provider 07/24/21 11/17/22 Tierra Cancino PA-C [address] [place] [address] Physician Lining Maker Urology 11/17/21 Luh Acharya PA-C [address] [place] [address] Assigned PCP 11/27/21 12/31/21 Tierra Cancino PA-C [address] [place] [address] Assigned Surgical Provider 12/11/21 06/08/23 Haven Buckner, NICOLE [address] [place] [address] Assigned PCP 01/01/22 12/22/22 Luh Acharya PA-C [address] [place] [address] Assigned PCP 12/23/22 05/18/23 Haven Buckner, NICOLE [address] [place] [address] Assigned PCP 05/19/23 documented as of this encounter
--- OUTSIDE RECORDS SUMMARY | 2024-04-10 08:20 | XMS_ITS | Encounter Summary ---
Author Organization [place] Address [address] [facility] [place] [address] Care Team Providers Care Fiberglass Dowel Drawing Operator Name Role Phone Toma Arguello Arun ROBERT Unavailable [phone] Laura Us MD Unavailable Jenise España MD Unavailable Unavailable Tierra Cancino PA-C Unavailable Luh Acharya PA-C Primary Care Provider + Tierra Cancino PA-C Unavailable Haven Buckner CNP Unavailable [phone] Luh Acharya PA-C Unavailable [phone] Haven Buckner CNP Unavailable Reason for Visit * Reason Comments Medication Refill Encounter Details Date Type Department Care Team (Late st Contact Info) Description 09/07/[address] [phone] Luh Acharya PA-C [address] [place] [address] [phone] Medication Refill Social History Tobacco Use Types [...] one refill on file Ellen Lemon RN [facility] Triage ACE TAPPER documented in this encounter Plan of Treatment Not on file documented as of this encounter Visit Diagnoses Diagnosis Gastroesophageal reflux disease, unspecified whether esophagitis present documented in this encounter Additional Health Concerns Assessment Noted Time PHQ-9 Depression Total Score: 5 10/25/19 22 7:03 AM FURNACE TAPPER documented as of this encounter Care Teams Fiberglass Dowel Drawing Operator Relationship Specialty Start Date End Date Luh Acharya PA-C [address] [place] [address] PCP - General Family Medicine 11/21/21 01/02/23 Toma Arguello NP [address] [address] Nurse Practitioner Nurse Practitioner Psych/Mental Health 04/11/17 Laura Us MD [place] [address] [place] [address] Gastroenterology 12/20/18 Jenise España MD Assigned Heart and Vascular Provider 07/24/21 11/17/22 Tierra Cancino PA-C [address] [place] [address] Physician Block Handler Urology 11/17/21 Tierra Cancino PA-C [address] [place] [address] Assigned Surgical Provider 12/11/21 06/08/23 Haven Buckner, JOB DEVELOPER [address] [place] [address] Assigned PCP 01/01/22 12/22/22 Luh Acharya PA-C [address] [place] [address] Assigned PCP 12/23/22 05/18/23 Haven Buckner, NICOLE [address] [place] [address] Assigned PCP 05/19/23 documented as of this encounter
--- OUTSIDE RECORDS SUMMARY | 2024-04-10 08:20 | XMS_ITS | Encounter Summary ---
Author Organization [place] Address [address] [facility] [place] [address] Care Team Providers Care Police Reserves Commander Name Role Phone Toma Arguello YESICA Unavailable [phone] Laura Us MD Unavailable Jenise España MD Unavailable Unavailable Tierra Cancino PA-C Unavailable Luh Acharya PA-C Primary Care Provider + Luh Acharya PA-C Unavailable [phone] Tierra Cancino PA-C Unavailable Haven Buckner CNP Unavailable Luh Acharya PA-C Unavailable [phone] Haven Buckner CNP Unavailable Encounter Details Date Type Department Care Team (Late st Contact Info) Description 11/29/2021 [facility] [address] [place] [address] Luh Acharya PA-C [address] [place] [address] 112152 Social History Tobacco Use Types Packs/Day Years [...] advise Thank you Manisha Patel RN, BSN [place] Triage documented in this encounter Plan of Treatment Not on file documented as of this encounter Visit Diagnoses Not on filedocumented in this encounter Additional Health Concerns Infection Onset Date Last Indicated Resolved Time Rule Out COVID-19 12/19/2021 12/19/2021 12/20/2021 1:02 PM CDT Assessment Noted Time PHQ-9 Depression Total Score: 5 10/25/19 22 7:03 AM MEDIA SUPERVISOR documented as of this encounter Care Teams Police Reserves Commander Relationship Specialty Start Date End Date Luh Acharya PA-C [address] [place] [address] [phone] PCP - General Family Medicine 11/21/21 01/02/23 Toma Arguello NP [place] [address] [place], [place] 526897 Nurse Practitioner Nurse Practitioner Psych/Mental Health 04/11/17 Laura Us MD [address] [address] Gastroenterology 12/20/18 Jenise España MD Assigned Heart and Vascular Provider 07/24/21 11/17/22 Tierra Cancino PA-C [address] [place] [address] Physician Piercing Machine Operator Urology 11/17/21 Luh Acharya PA-C [address] [place] [address] Assigned PCP 11/27/21 12/31/21 Tierra Cancino PA-C [address] [place] [address] Assigned Surgical Provider 12/11/21 06/08/23 Haven Buckner, NICOLE [address] [place] [address] Assigned PCP 01/01/22 12/22/22 Luh Acharya PA-C [address] [place] [address] Assigned PCP 12/23/22 05/18/23 Haven Buckner, NICOLE [address] [place] [address] Assigned PCP 05/19/23 documented as of this encounter
--- OUTSIDE RECORDS SUMMARY | 2024-04-10 08:20 | XMS_ITS | Encounter Summary ---
Author Organization [place] Address [address] [facility] [address] Care Team Providers Care Lime Mixer Tender Name Role Phone Toma Arguello YESICA Unavailable [phone] Laura Us MD Unavailable [facility] Primary Care Provider Haven Buckner CNP Unavailable [phone] Jenise España MD Unavailable Unavailable Tierra Cancino-C Unavailable [phone] Luh Acharya-C Primary Care Provider + Luh Acharya PA-C Unavailable +[phone] Tierra Cancino-C Unavailable [phone] Haven Buckner CNP Unavailable [phone] Luh Acharya PA-C Unavailable + [phone] Haven Buckner CNP Unavailable [phone] Reason for Visit * Reason Comments Medication Refill Encounter Details Date Type Department Care Team (Late st Contact Info) Description 10/14/[address] [phone] Luh Acharya PA-C [address] [place] [address] Medication Refill Social History Tobacco Use Types [...] COVID-19? No / Unsure 10/13/2021 3:21 PM RACING CAR DRIVER documented as of this encounter Miscellaneous Notes * Telephone Encounter - Nancy Monte RN - 10/17/2021 5:44 PM CST Prescription approved per [facility] Refill Protocol. Next 5 appointments (look out 90 days) Nov 15, 2021 1:40 PM (Arrive by 1:20 PM) Adult Preventative Visit with Luh Acharya PA-C [facility] [address] [place] [address]. [facility] [phone] Nancy Monte RN [facility] NG CAR DRIVER documented in this encounter Plan of Treatment [...] documented as of this encounter Care Teams Lime Mixer Tender Relationship Specialty Start Date End Date Clinic - [facility] [address] [place] [address] [phone] PCP - General 10/06/20 11/20/21 Luh Acharya PA-C [address] [place] [address] 724282 PCP - General Family Medicine 11/21/21 01/02/23 Toma Arguello NP [address] 252197 Nurse Practitioner Nurse Practitioner Psych/Mental Health 04/11/17 Laura Us MD [address] [address] Gastroenterology 12/20/18 Haven Buckner, NICOLE [address] [place] [address] 952332 Assigned PCP 05/22/21 11/26/21 Jenise España MD Assigned Heart and Vascular Provider 07/24/21 11/17/22 Tierra Cancino PA-C [address] [place], [place] [address] Physician Staff Trainer Urology 11/17/21 Luh Acharya PA-C [address] [place] [address] Assigned PCP 11/27/21 12/31/21 Tierra Cancino PA-C [address] [place] [address] Assigned Surgical Provider 12/11/21 06/08/23 Haven Buckner, VETERINARIAN EPIDEMIOLOGIST [address] [place] [address] Assigned PCP 01/01/22 12/22/22 Luh Acharya PA-C [address] [place] [address] Assigned PCP 12/23/22 05/18/23 Haven Buckner, VETERINARIAN EPIDEMIOLOGIST [address] [place] [address] Assigned PCP 05/19/23 documented as of this encounter
--- OUTSIDE RECORDS SUMMARY | 2024-04-10 08:20 | XMS_ITS | Encounter Summary ---
Author Organization [place] Address [address] [facility] [place] [address] Care Team Providers Care Echo Vascular Tech Name Role Phone Toma Arguello YESICA Unavailable [phone] Laura Us MD Unavailable [facility] Primary Care Provider Haven Buckner CNP Unavailable [phone] Jenise España MD Unavailable Unavailable Tierra Cancino-C Unavailable [phone] Luh Acharya-C Primary Care Provider + Luh Acharya PA-C Unavailable +- [phone] Tierra Cancino-C Unavailable [phone] Haven Buckner CNP Unavailable [phone] Luh Acharya PA-C Unavailable + [phone] Haven Buckner CNP Unavailable [phone] Reason for Visit * Reason Comments Medication Refill Encounter Details Date Type Department Care Team (Late st Contact Info) Description 08/30/[address] [phone] Haven Buckner, MEAT COUNTER WORKER [address] [place], [place] [phone] Medication Refill Social History Tobacco Use Types [...] Manisha Patel RN - 09/01/2021 10:07 PM SILK SCREEN FRAME ASSEMBLER Due for an Office visit for further refills, only fill for 30 days Manisha Patel RN, BSN [facility] Triage SCREEN FRAME ASSEMBLER documented in this encounter Plan of [...] documented as of this encounter Care Teams Echo Vascular Tech Relationship Specialty Start Date End Date Clinic - Home [address] [address] PCP - General 10/06/20 11/20/21 Luh Acharya PA-C [address] [place] [address] 134852 PCP - General Family Medicine 11/21/21 01/02/23 Toma Arguello NP [address] [address] Nurse Practitioner Nurse Practitioner Psych/Mental Health 04/11/17 Laura Us MD [address] [address] Gastroenterology 12/20/18 Haven Buckner, MEAT COUNTER WORKER [address] [place] [address] Assigned PCP 05/22/21 11/26/21 Jenise España MD Assigned Heart and Vascular Provider 07/24/21 11/17/22 Tierra Cancino PA-C [address] [place] [address] Physician Expeller Operator Urology 11/17/21 Luh Acharya PA-C [address] [place] [address] Assigned PCP 11/27/21 12/31/21 Tierra Cancino PA-C [address] [place] [address] Assigned Surgical Provider 12/11/21 06/08/23 Haven Buckner, NICOLE [address] [place] [address] Assigned PCP 01/01/22 12/22/22 Luh Acharya PA-C [address] [place] [address] 216272 Assigned PCP 12/23/22 05/18/23 Haven Buckner, MEAT COUNTER WORKER [address] [place] [address] 618692 Assigned PCP 05/19/23 documented as of this encounter
--- OUTSIDE RECORDS SUMMARY | 2024-04-10 08:20 | XMS_ITS | Encounter Summary ---
Author Organization [place] Address [address] [facility] [place] [address] Care Team Providers Care Senior Physician Name Role Phone Toma Arguello YESICA Unavailable [phone] Laura Us MD Unavailable [facility] Primary Care Provider Haven Buckner FIELD TRAINER Unavailable [phone] Jenise España MD Unavailable Unavailable Tierra Cancino-C Unavailable +[phone] Luh Acharya-C Primary Care Provider + Luh Acharya-C Unavailable +- [phone] Tierra Cancino-C Unavailable [phone] Haven Buckner CNP Unavailable [phone] Luh AcharyaC Unavailable + [phone] Haven Buckner CNP Unavailable [phone] Encounter Details Date Type Department Care Team (Late st Contact Info) Description 10/23/2021 [facility] [address] [address] Shivani Sparrow RN Social History [...] COVID-19? No / Unsure 10/13/2021 3:21 PM PRECISION MACHINE OPERATOR documented as of this encounter Plan of Treatment Not on file documented as of this encounter Visit Diagnoses Not on filedocumented in this encounter Additional Health Concerns Infection Onset Date Last Indicated Resolved Time Rule Out COVID-19 12/19/2021 12/19/2021 12/20/2021 1:02 PM CDT Assessment Noted Time PHQ-9 Depression Total Score: 5 10/25/19 22 7:03 AM PRECISION MACHINE OPERATOR documented as of this encounter Care Teams Senior Physician Relationship Specialty Start Date End Date [facility] - [address] [phone] PCP - General 10/06/20 11/20/21 Luh Acharya PA-C [address] [place] [address] 469102 PCP - General Family Medicine 11/21/21 01/02/23 Toma Arguello NP [facility] [address] [place] [address] Nurse Practitioner Nurse Practitioner Psych/Mental Health 04/11/17 Laura Us MD [address] [address] Gastroenterology 12/20/18 Haven Buckner, FIELD TRAINER [address] [place] [address] Assigned PCP 05/22/21 11/26/21 Jenise España MD Assigned Heart and Vascular Provider 07/24/21 11/17/22 Tierra Cancino PA-C [address] [place] [address] Physician Pole Tester Urology 11/17/21 Luh Acharya PA-C [address] [place] [address] Assigned PCP 11/27/21 12/31/21 Tierra Cancino PA-C [address] [place] [address] Assigned Surgical Provider 12/11/21 06/08/23 Haven Buckner, FIELD TRAINER [address] [place] [address] Assigned PCP 01/01/22 12/22/22 Luh Acharya PA-C [address] [place] [address] Assigned PCP 12/23/22 05/18/23 Haven Buckner, FIELD TRAINER [address] [place] [address] Assigned PCP 05/19/23 documented as of this encounter
--- OUTSIDE RECORDS SUMMARY | 2024-04-10 08:20 | XMS_ITS | Encounter Summary ---
Author Organization [place] Address [address] [facility] [place] [address] Care Team Providers Care Remotely Piloted Vehicle Controller Name Role Phone Kathy Glover MD Primary Care Provider Toma Arguello NP Unavailable [phone] Laura Us MD Unavailable Luh Acharya-C Unavailable + [phone] [facility] Primary Care Provider Jas Bojorquez DO Unavailable +[phone] BucknerHaven lofton SUPERVISOR GARAGE Unavailable +-[phone] Jenise España MD Unavailable Unavailable Tierra Cancino-C Unavailable [phone] Luh Acharya-C Primary Care Provider + Luh Acharya-C Unavailable + [phone] Tierra Cancino-C Unavailable Haven Buckner SUPERVISOR GARAGE Unavailable +[phone] Luh Acharya-C Unavailable +[phone] Haven Bcukner SUPERVISOR GARAGE Unavailable +[phone] Encounter Details Date Type Department Care Team (Late st Contact Info) Description 09/28/2020 Orders Only [address] [place] [address] Diaz Camargo MD [facility] [address] [place] [address] Encounter for screening for other viral diseases [...] COVID-19? No / Unsure 09/27/2020 9:59 AM COMPLAINT EVALUATION OFFICER documented as of this encounter Plan of Treatment Not on file documented as of this encounter Results * Asymptomatic COVID-19 Virus (Coronavirus) by PCR (10/03/2020 1:26 PM COMPLAINT EVALUATION OFFICER) COVID-19 Virus PCR to [facility] - Source Nasopharyngeal 10/03/2020 1:26 PM COMPLAINT EVALUATION OFFICER [facility] COVID-19 Virus PCR to [facility] - Result Test received-See reflex to IDDL test SARS CoV2 (COVID-19) Virus RT-PCR 10/03/2020 3:28 PM COMPLAINT EVALUATION OFFICER [facility] Specimen from nasopharyngeal structure (specimen) 10/03/2020 1:26 PM COMPLAINT EVALUATION OFFICER 10/03/2020 1:27 PM COMPLAINT EVALUATION OFFICER Diaz Camargo MD LAB - MICRO GENERAL ORDERABLES [facility], [facility] [address] [place] [address], [facility] [address] [place], [place] [address] [phone] documented in this encounter Visit Diagnoses Diagnosis Encounter for screening for other viral diseases documented in this encounter Additional Health Concerns Infection Onset Date Last Indicated Resolved Time Rule Out COVID-19 06/06/2021 06/06/2021 06/06/2021 5:30 PM CDT Rule Out COVID-19 12/19/2021 12/19/2021 12/20/2021 1:02 PM CDT Assessment Noted Time PHQ-9 Depression Total Score: 1 07/27/20 2:05 PM COMPLAINT EVALUATION OFFICER documented as of this encounter Care Teams Remotely Piloted Vehicle Controller Relationship Specialty Start Date End Date Kathy Glover MD [address] [place] [address] [phone] PCP - General Family Practice 06/03/15 10/05/20 Clinic - [facility] [address] [place] [address] 109772 PCP - General 10/06/20 11/20/21 Luh Acharya PA-C [address] [place] [address] [phone] PCP - General Family Medicine 11/21/21 01/02/23 Toma Arguello NP [facility] [address] [place] [address] Nurse Practitioner Nurse Practitioner Psych/Mental Health 04/11/17 Laura Us MD [facility] [address] [place] [address] Gastroenterology 12/20/18 Luh Acharya PA-C [facility] [place] [address] Assigned PCP 06/20/20 03/31/21 Jas Bojorquez DO [address] [place] [address], [place] [address] Assigned PCP 04/01/21 05/21/21 Haven Buckner, SUPERVISOR GARAGE [address] [place] [address], [place] [address] Assigned PCP 05/22/21 11/26/21 Jenise España MD Assigned Heart and Vascular Provider 07/24/21 11/17/22 Tierra Cancino PA-C [address] [place] [address] Engineer Urology 11/17/21 Luh Acharya PA-C [address] [place] [address], [place] [address] Assigned PCP 11/27/21 12/31/21 Tierra Cancino PA-C [address] [place] [address] Assigned Surgical Provider 12/11/21 06/08/23 Haven Buckner, SUPERVISOR GARAGE [address] [place] [address], [place] [address] Assigned PCP 01/01/22 12/22/22 Luh Acharya PA-C [address] [place] [address] Assigned PCP 12/23/22 05/18/23 Haven Buckner, NICOLE [address] [place] [address] Assigned PCP 05/19/23 documented as of this encounter
--- OUTSIDE RECORDS SUMMARY | 2024-04-10 08:21 | XMS_ITS | Encounter Summary ---
Author Organization [place] Address [address] [facility] [place] [address] Care Team Providers Care Account Developer Name Role Phone Kathy Glover MD Primary Care Provider Toma Arguello NP Unavailable [phone] Laura Us MD Unavailable Luh Acharya-C Unavailable + [phone] Edward Marlow MD Unavailable [phone] [facility] Primary Care Provider Jas Bojorquez DO Unavailable +[phone] Haven Buckner VP BIOLOGY Unavailable +-[phone] Jenise España MD Unavailable Unavailable Tierra Cancino PA-C Unavailable [phone] Luh Acharya-C Primary Care Provider + Luh Acharya-C Unavailable + [phone] Tierra Cancino-C Unavailable Haven Buckner CNP Unavailable +-[phone] Luh Acharya-C Unavailable [phone] Haven Buckner VP BIOLOGY Unavailable Encounter Details Date Type Department Care Team (Late st Contact Info) Description 07/23/2020 MyC Medical Advice [address] [phone] Juan Pablo Hinton RN Social History Tobacco [...] Total Score: 1 07/27/20 20 2:05 PM EXECUTIVE PERSONAL ASSISTANT documented as of this encounter Care Teams Account Developer Relationship Specialty Start Date End Date Kathy Glover MD [address] [place] [address] PCP - General Family Practice 06/03/15 10/05/20 Clinic - [address] [address] PCP - General 10/06/20 11/20/21 Luh Acharya PA-C [address] [place] [address] PCP - General Family Medicine 11/21/21 01/02/23 Toma Arguello NP [facility] [address] [place] [address] Nurse Practitioner Nurse Practitioner Psych/Mental Health 04/11/17 Laura Us MD [facility] [address] [place] [address] Gastroenterology 12/20/18 Luh Acharya PA-C [address] [place] [address] Assigned PCP 06/20/20 03/31/21 Edward Marlow MD [facility] [place] [address] Assigned Surgical Provider 07/09/20 07/31/20 Jas Bojorquez DO [address] [place] [address] 070762 Assigned PCP 04/01/21 05/21/21 Haven Buckner, NICOLE [address] [place] [address] [phone] Assigned PCP 05/22/21 11/26/21 Jenise España MD Assigned Heart and Vascular Provider 07/24/21 11/17/22 Tierra Cancino PA-C [address] [place] [address] Physician Activities Manager Urology 11/17/21 Luh Acharya PA-C [address] [place] [address], [place] [address] Assigned PCP 11/27/21 12/31/21 Tierra Cancino PA-C [address] [place] [address] Assigned Surgical Provider 12/11/21 06/08/23 Haven Buckner, NICOLE [address] [place] [address], [place] [address] Assigned PCP 01/01/22 12/22/22 Luh Acharya PA-C [address] [place] [address], [place] [address] Assigned PCP 12/23/22 05/18/23 Haven Buckner, NICOLE [address] [place] [address], [place] [address] Assigned PCP 05/19/23 documented as of this encounter
--- OUTSIDE RECORDS SUMMARY | 2024-04-10 08:21 | XMS_ITS | Encounter Summary ---
Author Organization [place] Address [address] [facility] [address] Care Team Providers Care Home Visitor Name Role Phone Kathy Glover MD Primary Care Provider Toma Arguello NP Unavailable Kathy Glover MD Unavailable [phone] Kathy Glover MD Unavailable +[phone] Laura Us MD Unavailable Luh AcharyaC Unavailable + [phone] Kathy Glover MD Unavailable + [phone] Luh AcharyaC Unavailable + [phone] Edward Marlow MD Unavailable +[phone] [facility] Primary Care Provider Jas Bojorquez DO Unavailable +[phone] Haven Buckner CNP Unavailable +[phone] Jenise España MD Unavailable Unavailable Tierra Cancino PA-C Unavailable Luh AcharyaC Primary Care Provider + Luh AcharyaC Unavailable [phone] Shaniamando Tierra Magda HUFF Unavailable +[phone] Haven Buckner CNP Unavailable +1-2-2 Luh AcharyaC Unavailable +[phone] BucknerHaven lofton CNP Unavailable +1--2 Encounter Details Date Type Department Care Team (Late st Contact Info) Description 03/16/2017 MyC Medical Advice [address] [address] Kathy Glover MD [address] [place] [address] [phone] Social History Tobacco Use Types Packs/Day Years [...] as of this encounter Care Teams Home Visitor Relationship Specialty Start Date End Date Kathy Glover MD [address] [place] [address] [phone] PCP - General Family Practice 06/03/15 10/05/20 Kathy Glover MD [address] [place] [address] PCP - Assigned PCP 07/25/15 11/19/[address] [address] PCP - General 10/06/20 11/20/21 Luh Acharya PA-C [address] [place] [address] [phone] PCP - General Family Medicine 11/21/21 01/02/23 Toma Arguello NP [address] 004[address] Nurse Practitioner Nurse Practitioner Psych/Mental Health 04/11/17 Kahty Glover MD [address] [place] [address] Assigned PCP 07/25/15 12/20/19 Laura Us MD [address] [place] [address] Gastroenterology 12/20/18 Luh Acharya PA-C [address] [place] [address] Assigned PCP 12/21/19 01/17/20 Kathy Glover MD [address] [place] [address] Assigned PCP 01/18/20 06/19/20 Luh Acharya PA-C [address] [place] [address] Assigned PCP 06/20/20 03/31/21 [place] [address] Assigned Surgical Provider 07/09/20 07/31/20 Jas Bojorquez DO [address] [place] [address] 155672 Assigned PCP 04/01/21 05/21/21 Haven Buckner CNP [address] [place] [address] Assigned PCP 05/22/21 11/26/21 Jenise España MD Assigned Heart and Vascular Provider 07/24/21 11/17/22 Tierra Cancino PA-C [address] [place] [address] Physician Neurology Teacher Urology 11/17/21 Luh Acharya PA-C [address] [place] [address] Assigned PCP 11/27/21 12/31/21 Tierra Cancino PA-C [address] [place] [address] Assigned Surgical Provider 12/11/21 06/08/23 Haven Buckner CNP [address] [place] [address] Assigned PCP 01/01/22 12/22/22 Luh Acharya PA-C [address] [place] [address] Assigned PCP 12/23/22 05/18/23 Haven Buckner CNP [address] [place] [address] Assigned PCP 05/19/23 documented as of this encounter
--- OUTSIDE RECORDS SUMMARY | 2024-04-10 08:21 | XMS_ITS | Encounter Summary ---
Author Organization [place] Address [address] [facility] [place] [address] Care Team Providers Care Charter Bus Driver Name Role Phone Kathy Glover MD Primary Care Provider Toma Arguello NP Unavailable [phone] Laura Us MD Unavailable Kathy Glover MD Unavailable +[phone] Luh AcharyaC Unavailable + [phone] Edward Marlow MD Unavailable [phone] [facility] Primary Care Provider Jas Bojorquez DO Unavailable +[phone] Haven Buckner CNP Unavailable +-[phone] Jenise España MD Unavailable Unavailable Tierra Cancino-C Unavailable +[phone] Luh Acharya PA-C Primary Care Provider + Luh Acharya PA-C Unavailable + [phone] Tierra Cancino-C Unavailable Haven Buckner CNP Unavailable +1- Luh Acharya PA-C Unavailable +[phone] Haven Buckner CNP Unavailable +-[phone] Encounter Details Date Type Department Care Team (Late st Contact Info) Description 04/14/2020 MyC Medical Advice [address] [phone] Kathy Glover MD [address] [place] [address] [phone] Social History Tobacco Use Types Packs/Day Years [...] documented as of this encounter Care Teams Charter Bus Driver Relationship Specialty Start Date End Date Kathy Glover MD [address] [place] [address] [phone] PCP - General Family Practice 06/03/15 10/05/20 Clinic - [address] [address] PCP - General 10/06/20 11/20/21 Luh Acharya PA-C [address] [place] [address] PCP - General Family Medicine 11/21/21 01/02/23 Toma Arguello NP [address] [address] Nurse Practitioner Nurse Practitioner Psych/Mental Health 04/11/17 Laura Us MD [address] [address] Gastroenterology 12/20/18 Kathy Glover MD [address] [place] [address] Assigned PCP 01/18/20 06/19/20 Luh Acharya PA-C [address] [place] [address] Assigned PCP 06/20/20 03/31/21 Edward Marlow MD [address] [place] [address] Assigned Surgical Provider 07/09/20 07/31/20 Jas Bojorquez DO [address] [place] [address] Assigned PCP 04/01/21 05/21/21 Haven Buckner, NOVELTY TWISTER OPERATOR [address] [place] [address], [place] [address] Assigned PCP 05/22/21 11/26/21 Jenise Epsaña MD Assigned Heart and Vascular Provider 07/24/21 11/17/22 Tierra Cancino PA-C [address] [place] [address] Physician Space Scheduler Urology 11/17/21 Luh Acharya PA-C [address] [place] [address], [place] [address] Assigned PCP 11/27/21 12/31/21 Tierra Cancino PA-C [address] [place] [address] Assigned Surgical Provider 12/11/21 06/08/23 Haven Buckner CNP [address] [place] [address], [place] [address] Assigned PCP 01/01/22 12/22/22 Luh Acharya PA-C [address] [place] [address], [place] [address] Assigned PCP 12/23/22 05/18/23 Haven Buckner CNP [address] [place] [address], [place] [address] Assigned PCP 05/19/23 documented as of this encounter
--- OUTSIDE RECORDS SUMMARY | 2024-04-10 08:21 | XMS_ITS | Encounter Summary ---
Author Organization [place] Address [address] [place] [address] Care Team Providers Care Grease Man Name Role Phone Kathy Glover MD Primary Care Provider Toma Arguello NP Unavailable [phone] Kathy Glover MD Unavailable [phone] Kathy Glover MD Unavailable +[phone] Laura Us MD Unavailable Luh AcharyaC Unavailable + [phone] Kathy Glover MD Unavailable + [phone] Luh AcharyaC Unavailable + [phone] Edward Marlow MD Unavailable [phone] [facility] Primary Care Provider Jas Bojorquez DO Unavailable +[phone] Haven Buckner CNP Unavailable +[phone] Jenise España MD Unavailable Unavailable Tierra Cancino PA-C Unavailable Luh AcharyaC Primary Care Provider + Luh AcharyaC Unavailable +[phone] EdchandanTierra goeljose guadalupe BAUTISTAC Unavailable Haven Buckner CNP Unavailable +1-- Luh AcharyaC Unavailable +1- BucknerHaven lofton CNP Unavailable +1 Encounter Details Date Type Department Care Team (Late st Contact Info) Description 02/28/2017 MyC Medical Advice [address] [phone] Marcy Smith RN Social History Tobacco Use [...] documented as of this encounter Care Teams Grease Man Relationship Specialty Start Date End Date Kathy Glover MD [address] [place] [address] 268642 PCP - General Family Practice 06/03/15 10/05/20 Kathy Glover MD [address] [place] [address] PCP - Assigned PCP 07/25/15 11/19/[address] [address] PCP - General 10/06/20 11/20/21 Luh Acharya PA-C [address] [place] [address] PCP - General Family Medicine 11/21/21 01/02/23 Toma Arguello NP [address] [address] Nurse Practitioner Nurse Practitioner Psych/Mental Health 04/11/17 Kathy Glover MD [address] [place] [address]651 Assigned PCP 07/25/15 12/20/19 Laura Us MD [address] [place] [address] Gastroenterology 12/20/18 Luh Acharya PA-C [address] [place] [address] Assigned PCP 12/21/19 01/17/20 Kathy Glover MD [address] [place] [address] Assigned PCP 01/18/20 06/19/20 Luh Acharya PA-C [address] [place] [address] Assigned PCP 06/20/20 03/31/21 Edward [place] [address] Assigned Surgical Provider 07/09/20 07/31/20 Jas Bojorquez DO [address] [place] [address] 933162 Assigned PCP 04/01/21 05/21/21 Haven Buckner, NICOLE [address] [place] [address] Assigned PCP 05/22/21 11/26/21 Jenise España MD Assigned Heart and Vascular Provider 07/24/21 11/17/22 Tierra Cancino PA-C [address] [place] [address] Physician [employer] Urology 11/17/21 Luh Acharya PA-C [address] [place] [address] Assigned PCP 11/27/21 12/31/21 Tierra Cancino PA-C [address] [place] [address] Assigned Surgical Provider 12/11/21 06/08/23 Haven Buckner CNP [address] [place] [address], [place] [address] Assigned PCP 01/01/22 12/22/22 Luh Acharya PA-C [address] [place] [address] Assigned PCP 12/23/22 05/18/23 Haven Buckner, WORKSITE WELLNESS PRACTITIONER [address] [place] [address] Assigned PCP 05/19/23 documented as of this encounter
--- OUTSIDE RECORDS SUMMARY | 2024-04-10 08:21 | XMS_ITS | Encounter Summary ---
Author Organization [place] Address [address] [facility] [place] [address] Care Team Providers Care Aquaculture Program Director Name Role Phone Kathy Glover MD Primary Care Provider Toma Arguello NP Unavailable [phone] Kathy Glover MD Unavailable +[phone] Laura Us MD Unavailable Luh AcharyaC Unavailable + [phone] Kathy Glover MD Unavailable +[phone] Luh AcharyaC Unavailable + [phone] Edward Marlow MD Unavailable [phone] [facility] Primary Care Provider Jas Bojorquez DO Unavailable +[phone] Haven Buckner CNP Unavailable +[phone] Jenise España MD Unavailable Unavailable Tierra Cancino-C Unavailable Luh Acharya PA-C Primary Care Provider + Luh AcharyaC Unavailable Tierra Cancino PA-C Unavailable Haven Buckner CNP Unavailable +[phone] Marck Luhkirsty Mcconnell PA-C Unavailable [phone] BucknerHaven lofton CNP Unavailable +-2 Reason for Visit * Reason Onset Date Comments MyChart Communication 01/09/2019 fibromyalg ia testing Encounter Details Date Type Department Care Team (Latest Contact Info) Description 01/09/2019 MyC Medical Advice [address] [phone] Marcy Smith, KARMEN MyChart Communication (fibromyalgia testing) [...] 2:36 PM CDT Noted. Dona Smith RN Hood Triage documented in this encounter Plan of [...] Total Score: 5 11/22/19 19 7:06 AM ACCESSIONER documented as of this encounter Care Teams Aquaculture Program Director Relationship Specialty Start Date End Date Kathy Glover MD [address] [place] [address] PCP - General Family Practice 06/03/15 10/05/[address] 835112 PCP - General 10/06/20 11/20/21 Luh Acharya PA-C [address] [place] [address] 561942 PCP - General Family Medicine 11/21/21 01/02/23 Toma Arguello NP [address] [address] Nurse Practitioner Nurse Practitioner Psych/Mental Health 04/11/17 Kathy Glover MD [address] [place] [address] Assigned PCP 07/25/15 12/20/19 Laura Us MD [address] [place] [address] Gastroenterology 12/20/18 Luh Acharya PA-C [address] [place] [address] Assigned PCP 12/21/19 01/17/20 Kathy Glover MD [address] [place] [address] Assigned PCP 01/18/20 06/19/20 Luh Acharya PA-C [address] [place] [address] Assigned PCP 06/20/20 03/31/21 [place] [address] Assigned Surgical Provider 07/09/20 07/31/20 Jas Bojorquez DO [address] [place] [address] Assigned PCP 04/01/21 05/21/21 Haven Buckner CNP [address] [place] [address] Assigned PCP 05/22/21 11/26/21 Jenise España MD Assigned Heart and Vascular Provider 07/24/21 11/17/22 Tierra Cancion PA-C [address] [place] [address] Physician Supervisor [employer] Urology 11/17/21 Luh Acharya PA-C [address] [place] [address] Assigned PCP 11/27/21 12/31/21 Tierra Cancino PA-C [address] [place] [address] Assigned Surgical Provider 12/11/21 06/08/23 Haven Buckner, NICOLE [address] [place] [address] Assigned PCP 01/01/22 12/22/22 Luh Acharya PA-C [address] [place] [address] Assigned PCP 12/23/22 05/18/23 Haven Buckner, NICOLE [address] [place] [address] Assigned PCP 05/19/23 documented as of this encounter
--- OUTSIDE RECORDS SUMMARY | 2024-04-10 08:21 | XMS_ITS | Encounter Summary ---
Author Organization [place] Address [address] [facility] [place] [address] Care Team Providers Care Parimutuel Clerk Name Role Phone Kathy Glover MD Primary Care Provider Toma Arguello NP Unavailable [phone] Katyh Glover MD Unavailable +[phone] Kathy Glover MD Unavailable +[phone] Laura Us MD Unavailable Luh AcharyaC Unavailable + [phone] Kathy Glover MD Unavailable + [phone] Luh AcharyaC Unavailable + [phone] Edward Marlow MD Unavailable +[phone] [facility] Primary Care Provider Jas Bojorquez DO Unavailable +[phone] Haven Bukcner CNP Unavailable +[phone] Jenise España MD Unavailable Unavailable Tierra Cancino PA-C Unavailable Luh AcharyaC Primary Care Provider + Luh AcharyaC Unavailable ShaniTierra goel Magda BAUTISTAC Unavailable Haven Buckner CNP Unavailable +1-2-2 Luh Acharya-C Unavailable +[phone] BucknerHaven lofton CNP Unavailable +[phone] Reason for Visit * Reason Onset Date Comments Call To Schedule Appointment 07/29/2018 Lef t message to schedule DEXA Encounter Details Date Type Department Care Team (Late st Contact Info) Description 07/29/[address] [place] [address] Kathy Glover MD [address] [place] [address] Call To Schedule Appointment (Left [...] PM CST Left message to schedule DEXA H TOOL MAKER documented in this encounter Plan of Treatment [...] documented as of this encounter Care Teams Parimutuel Clerk Relationship Specialty Start Date End Date Kathy Glover MD [address] [place] [address] 32959 PCP - General Family Practice 06/03/15 10/05/20 Kathy Glover MD [address] [place] [address] 61484 PCP - Assigned PCP 07/25/15 11/19/[address] [address] PCP - General 10/06/20 11/20/21 Luh Acharya PA-C [address] [place] [address] 20692 PCP - General Family Medicine 11/21/21 01/02/23 Toma Arguello NP [address] [address] Nurse Practitioner Nurse Practitioner Psych/Mental Health 04/11/17 Kathy Glover MD [address] [place] [address] 45076 Assigned PCP 07/25/15 12/20/19 Laura Us MD [address] [place] [address] 98548 Gastroenterology 12/20/18 Luh Acharya PA-C [address] [place] [address] 24212 Assigned PCP 12/21/19 01/17/20 Kathy Glover MD [address] [place] [address] [phone] Assigned PCP 01/18/20 06/19/20 Luh Acharya PA-C [address] [place] [address] 212562 Assigned PCP 06/20/20 03/31/21 Edward Mar[place] [address] Assigned Surgical Provider 07/09/20 07/31/20 Jas Bojorquez DO [address] [place] [address] [phone] Assigned PCP 04/01/21 05/21/21 Haven Buckner, ELECTRICAL CONSTRUCTION PROJECT MANAGER [address] [place] [address] [phone] Assigned PCP 05/22/21 11/26/21 Jenise España MD Assigned Heart and Vascular Provider 07/24/21 11/17/22 Tierra Cancino PA-C [address] [facility] [place] [address] Physician Lithographic Proofer Urology 11/17/21 Luh Acharya PA-C [address] [place] [address] [place] [address] Assigned PCP 11/27/21 12/31/21 Tierra Cancino PA-C [address] [place] [address] Assigned Surgical Provider 12/11/21 06/08/23 Haven Buckner, ELECTRICAL CONSTRUCTION PROJECT MANAGER [address] [place] [address], [place] [address] Assigned PCP 01/01/22 12/22/22 Luh Acharya PA-C [address] [place] [address], [place] [address] Assigned PCP 12/23/22 05/18/23 Haven Buckner, ELECTRICAL CONSTRUCTION PROJECT MANAGER [address] [place] [address], [place] [address] Assigned PCP 05/19/23 documented as of this encounter
--- OUTSIDE RECORDS SUMMARY | 2024-04-10 08:21 | XMS_ITS | Encounter Summary ---
Author Organization [place] Address [address] [facility] [place] [address] Care Team Providers Care Fence Installer Name Role Phone Kathy Glover MD Primary Care Provider Toma Arguello NP Unavailable [phone] Kathy Glover MD Unavailable +[phone] Laura Us MD Unavailable Luh AcharyaC Unavailable + [phone] Kathy Glover MD Unavailable +[phone] Luh AcharyaC Unavailable + [phone] Edward Marlow MD Unavailable +[phone] [facility] Primary Care Provider Jas Bojorquez DO Unavailable +[phone] Haven Buckner CNP Unavailable +[phone] Jenise España MD Unavailable Unavailable Tierra Cancino-C Unavailable Luh Acharya PA-C Primary Care Provider + Luh AcharyaC Unavailable Tierra Cancino PA-C Unavailable Haven Buckner LIFESTYLE DIRECTOR Unavailable +[phone] Acharya Luh Enedina BAUTISTAC Unavailable +[phone] BucknerHaven lofton LIFESTYLE DIRECTOR Unavailable [phone] Reason for Visit * Reason Onset Date Comments MyChart Communication 01/17/2019 Encounter Details Date Type Department Care Team (Late st Contact Info) Description 01/17/2019 MyC Medical Advice [address] [address] [place] [address] [place] [address] MyChart Communication Social History Tobacco Use [...] AM CDT mychart sent. Dona Smith RN Standard Triage * Telephone Encounter - Renay Barlow RN - 01/17/2019 4:55 PM CDT MyChart Message sent Awaiting response Renay Barlow RN Standard Triage * Telephone Encounter - Coty Doan RN - 01/17/2019 9:40 AM CDT Mychart note sent to patient. Coty Doan BS, RN, PHN [facility] Triage ) [phone] documented in this encounter Plan of Treatment Not on file documented as of this encounter Visit Diagnoses Not on filedocumented in this encounter Additional Health Concerns Infection Onset Date Last Indicated Resolved Time Rule Out COVID-19 06/06/2021 06/06/2021 06/06/2021 5:30 PM CDT Rule Out COVID-19 12/19/2021 12/19/2021 12/20/2021 1:02 PM CDT Assessment Noted Time PHQ-9 Depression Total Score: 5 11/22/19 19 7:06 AM FOREST AND CONSERVATION WORKER documented as of this encounter Care Teams Fence Installer Relationship Specialty Start Date End Date Kathy Glover MD [address] [place] [address] 872152 PCP - General Family Practice 06/03/15 10/05/[address] [phone] PCP - General 10/06/20 11/20/21 Luh Acharya PA-C [address] [place] [address] 244952 PCP - General Family Medicine 11/21/21 01/02/23 Toma Arguello NP [address] [address] Nurse Practitioner Nurse Practitioner Psych/Mental Health 04/11/17 Kathy Glover MD [address] [place] [address], [place] [address] Assigned PCP 07/25/15 12/20/19 Laura Us MD [address] [place] [address] Gastroenterology 12/20/18 Luh Acharya PA-C [address] [place] [address], [place] [address] Assigned PCP 12/21/19 01/17/20 Kathy Glover MD [address] [place] [address] Assigned PCP 01/18/20 06/19/20 Luh Acharya, REFUGIO [address] [place] [address] [phone] Assigned PCP 06/20/20 03/31/21 Edward Marlow MD [facility] [place] [address] Assigned Surgical Provider 07/09/20 07/31/20 Jas Bojorquez DO [address] [place] [address] 979502 Assigned PCP 04/01/21 05/21/21 Haven Buckner, LIFESTYLE DIRECTOR [address] [place] [address] Assigned PCP 05/22/21 11/26/21 Jenise España MD Assigned Heart and Vascular Provider 07/24/21 11/17/22 Tierra Cancino PA-C [address] [place] [address] Physician Web Design Intern Urology 11/17/21 Luh Acharya PA-C [address] [place] [address], [place] [address] Assigned PCP 11/27/21 12/31/21 Tierra Cancino PA-C [address] [place] [address] Assigned Surgical Provider 12/11/21 06/08/23 Haven Buckner, NICOLE [address] [place] [address], [place] [address] Assigned PCP 01/01/22 12/22/22 Luh Acharya PA-C [address] [place] [address], [place] [address] Assigned PCP 12/23/22 05/18/23 Haven Buckner, NICOLE [address] [place] [address], [place] [address] Assigned PCP 05/19/23 documented as of this encounter
--- OUTSIDE RECORDS SUMMARY | 2024-04-10 08:21 | XMS_ITS | Encounter Summary ---
Author Organization [place] Address [address] [facility] [place] [address] Care Team Providers Care Directional Survey Drafter Name Role Phone Kathy Glover MD Primary Care Provider Toma Arguello NP Unavailable Laura Us MD Unavailable Luh Acharya-C Unavailable + [phone] [facility] Primary Care Provider Jas Bojorquez DO Unavailable +[phone] BucknerHaven lofton CRYSTAL CUTTER Unavailable +-[phone] Jenise España MD Unavailable Unavailable Tierra Cancino-C Unavailable [phone] Luh Acharya-C Primary Care Provider + Luh Acharya-C Unavailable + [phone] Tierra Cancino-C Unavailable Haven Buckner CRYSTAL CUTTER Unavailable +12-2 [phone] Luh Acharya-C Unavailable +[phone] Haven Buckner CRYSTAL CUTTER Unavailable +[phone] Reason for Visit * Reason Comments Medication Refill Encounter Details Date Type Department Care Team (Late st Contact Info) Description 08/15/[address] [address] [place] [address] [place] [address] Medication Refill Social History Tobacco Use Types [...] Raina Thomas - 08/18/2020 9:23 AM CST [employer] message sent to patient to call and schedule follow up visit Raina Thomas/ Back End Web Developer HER AIDE * Telephone Encounter - Haven Navarro APRN CNP - 08/16/2020 5:03 PM TEACHER AIDE Images from the original note were not included. Due for physical wellness exam with pap; please help patient get this set up. #90 day fill. NIDIA Johnson HER AIDE * Telephone Encounter - Agustina Mares RN - 08/16/2020 2:09 PM CST Routing refill request to provider for review/approval because: Drug interaction warning HER AIDE documented in this encounter Plan of Treatment Not on file documented as of this encounter Visit Diagnoses Diagnosis Persistent insomnia- managed by [facility] Clinic of Neurology - Dr. Cao Persistent [...] Depression Total Score: 1 07/27/20 2:05 PM TEACHER AIDE documented as of this encounter Care Teams Directional Survey Drafter Relationship Specialty Start Date End Date Kathy Glover MD [address] [place] [address] [phone] PCP - General Family Practice 06/03/15 10/05/20 Clinic - [address] [phone] PCP - General 10/06/20 11/20/21 Luh Acharya PA-C [address] [place] [address] 501702 PCP - General Family Medicine 11/21/21 01/02/23 Toma Arguello NP [address] 450647 Nurse Practitioner Nurse Practitioner Psych/Mental Health 04/11/17 Laura Us MD [address] 075967 Gastroenterology 12/20/18 Luh Acharya PA-C [address] [place] [address] Assigned PCP 06/20/20 03/31/21 Jas Bojorquez DO [address] [place] [address] 576482 Assigned PCP 04/01/21 05/21/21 Haven Buckner, CRYSTAL CUTTER [address] [place] [address] 227462 Assigned PCP 05/22/21 11/26/21 Jenise España MD Assigned Heart and Vascular Provider 07/24/21 11/17/22 Tierra Cancino PA-C [address] [place] [address] Physician Assurance Assistant Urology 11/17/21 Luh Acharya PA-C [address] [place] [address] Assigned PCP 11/27/21 12/31/21 Tierra Cancino PA-C [address] [place] [address] Assigned Surgical Provider 12/11/21 06/08/23 Haven Buckner, CRYSTAL CUTTER [address] [place] [address] 31444 Assigned PCP 01/01/22 12/22/22 Luh Acharya PA-C [address] [place] [address] Assigned PCP 12/23/22 05/18/23 Haven Buckner, CRYSTAL CUTTER [address] [place] [address] Assigned PCP 05/19/23 documented as of this encounter
--- OUTSIDE RECORDS SUMMARY | 2024-04-10 08:21 | XMS_ITS | Encounter Summary ---
Author Organization [place] Address [address] [facility] [place] [address] Care Team Providers Care Drainage Engineer Name Role Phone Kathy Glover MD Primary Care Provider Toma Arguello NP Unavailable [phone] Kathy Glover MD Unavailable +[phone] Kathy Glover MD Unavailable +[phone] Laura Us MD Unavailable Luh AcharyaC Unavailable + [phone] Kathy Glover MD Unavailable + -[phone] Luh AcharyaC Unavailable + [phone] Edward Marlow MD Unavailable [phone] [facility] Primary Care Provider Jas Bojorquez DO Unavailable +[phone] Haven Buckner CNP Unavailable +2-2 [phone] Jenise España MD Unavailable Unavailable Tierra Cancino PA-C Unavailable +[phone] Luh AcharyaC Primary Care Provider + Luh Acharya-C Unavailable [phone] Tierra Cancinojose guadalupe BAUTISTAC Unavailable +[phone] BucknerHaven lofton CNP Unavailable +1--2 AcharyaLuh jerome-C Unavailable +1- BucknerHaven lofton CNP Unavailable +1-2 Reason for Visit * Reason Comments Medication Refill Encounter Details Date Type Department Care Team (Late st Contact Info) Description 06/27/2018 Refill [facility] [address] [facility] [address] [place] [address] [place] [address] [place], [place] [phone] Medication Refill Social History Tobacco Use Types [...] documented as of this encounter Care Teams Drainage Engineer Relationship Specialty [place] [address] [place] [address] PCP - General Family Practice 06/03/15 10/05/20 Kathy Glover MD [address] [place] [address] PCP - Assigned PCP 07/25/15 11/19/[address] 756582 PCP - General 10/06/20 11/20/21 Luh Acharya PA-C [address] [place] [address] [phone] PCP - General Family Medicine 11/21/21 01/02/23 Toma Arguello NP [address] [address] Nurse Practitioner Nurse Practitioner Psych/Mental Health 04/11/17 Kathy Glover MD [address] [place] [address] Assigned PCP 07/25/15 12/20/19 Laura Us MD [address] [place] [address]68 Gastroenterology 12/20/18 Luh Acharya PA-C [address] [place] [address]375 Assigned PCP 12/21/19 01/17/20 Kathy Glover MD [address] [place] [address]17 Assigned PCP 01/18/20 06/19/20 Luh Acharya PA-C [address] [place] [address] Assigned PCP 06/20/20 03/31/21 Edward Marlow [place] [address] Assigned Surgical Provider 07/09/20 07/31/20 Jas Bojorquez DO [address] [place] [address] Assigned PCP 04/01/21 05/21/21 Haven Buckner CNP [address] [place] [address] Assigned PCP 05/22/21 11/26/21 Jenise España MD Assigned Heart and Vascular Provider 07/24/21 11/17/22 Tierra Cancino PA-C [address] [place] [address] Physician Retirement Plan Counselor Urology 11/17/21 Luh Acharya PA-C [address] [place] [address] Assigned PCP 11/27/21 12/31/21 Tierra Cancino PA-C [address] [place] [address] Assigned Surgical Provider 12/11/21 06/08/23 Haven Buckner, NICOLE [address] [place] [address] Assigned PCP 01/01/22 12/22/22 Luh Acharya PA-C [address] [place] [address] Assigned PCP 12/23/22 05/18/23 Haven Buckner, NICOLE [address] [place] [address] Assigned PCP 05/19/23 documented as of this encounter
--- OUTSIDE RECORDS SUMMARY | 2024-04-10 08:21 | XMS_ITS | Encounter Summary ---
Author Organization [place] Address [address] [facility] [place] [address] Care Team Providers Care Security Officer Name Role Phone Kathy Glover MD Primary Care Provider Toma Arguello NP Unavailable [phone] Kathy Glover MD Unavailable +[phone] Laura Us MD Unavailable Luh AcharyaC Unavailable + [phone] Kathy Glover MD Unavailable +[phone] Luh AcharyaC Unavailable + [phone] Edward Marlow MD Unavailable [phone] [facility] Primary Care Provider Jas Bojorquez DO Unavailable +[phone] Haven Buckner CNP Unavailable +[phone] Jenise España MD Unavailable Unavailable Tierra Cancino-C Unavailable Luh Acharya PA-C Primary Care Provider + Luh AcharyaC Unavailable + [phone] Tierra Cancino PA-C Unavailable +[phone] Haven Buckner CNP Unavailable +1-13-2 Luh Acharya PA-C Unavailable +[phone] BucknerHaven lofton CNP Unavailable +[phone]- Encounter Details Date Type Department Care Team (Late st Contact Info) Description 07/14/2019 [facility] [address] [phone] Renay Barlow RN Social History Tobacco Use [...] as of this encounter Care Teams Security Officer Relationship Specialty Start Date End Date Kathy Glover MD [address] [place] [address] [phone] PCP - General Family Practice 06/03/15 10/05/20 Clinic - [address] [address] PCP - General 10/06/20 11/20/21 Luh Acharya PA-C [address] [place] [address] PCP - General Family Medicine 11/21/21 01/02/23 Toma Arguello NP [address] [address] Nurse Practitioner Nurse Practitioner Psych/Mental Health 04/11/17 Kathy Glover MD [address] [place] [address] 13097 Assigned PCP 07/25/15 12/20/19 Laura Us MD [address] [place] [address]197 Gastroenterology 12/20/18 Luh Acharya PA-C [address] [place] [address] 32080 Assigned PCP 12/21/19 01/17/20 Kathy Glover MD [address] [place] [address] Assigned PCP 01/18/20 06/19/20 Luh Acharya PA-C [address] [place] [address] 5[address] Assigned PCP 06/20/20 03/31/21 Edward Marlow MD [place] [address] Assigned Surgical Provider 07/09/20 07/31/20 Jas Bojorquez DO [address] [place] [address] Assigned PCP 04/01/21 05/21/21 Haven Buckner, PROCEDURE TECH [address] [place] [address] 936222 Assigned PCP 05/22/21 11/26/21 Jenise España MD Assigned Heart and Vascular Provider 07/24/21 11/17/22 Tierra Cancino PA-C [address] [place] [address] Physician Yard Switch Operator Urology 11/17/21 Luh Acharya PA-C [address] [place] [address] Assigned PCP 11/27/21 12/31/21 Tierra Cancino PA-C [address] [facility] [address] [place] [address] Assigned Surgical Provider 12/11/21 06/08/23 Havne Buckner, NICOLE [address] [place] [address] 489[address] Assigned PCP 01/01/22 12/22/22 Luh Acharya PA-C [address] [place] [address] Assigned PCP 12/23/22 05/18/23 Haven Buckner, PROCEDURE TECH [address] [place] [address] Assigned PCP 05/19/23 documented as of this encounter
--- OUTSIDE RECORDS SUMMARY | 2024-04-10 08:21 | XMS_ITS | Encounter Summary ---
Author Organization [place] Address [address] [facility] [place] [address] Care Team Providers Care Battery Recharger Name Role Phone Kathy Glover MD Primary Care Provider Toma Arguello NP Unavailable Kathy Glover MD Unavailable [phone] Kathy Glover MD Unavailable +[phone] Laura Us MD Unavailable Luh AcharyaC Unavailable + [phone] Kathy Glover MD Unavailable + [phone] Luh AcharyaC Unavailable + [phone] Edward Marlow MD Unavailable +[phone] [facility] Primary Care Provider Jas Bojorquez DO Unavailable +[phone] Haven Buckner CNP Unavailable +2-2 [phone] Jenise España MD Unavailable Unavailable Tierra Cancino PA-C Unavailable +[phone] Luh AcharyaC Primary Care Provider + Luh Acharya PA-C Unavailable ShaniTierra goeljose guadalupe HUFF Unavailable Haven Buckner CNP Unavailable +[phone] Luh Acharya PA-C Unavailable +[phone] BucknerHaven loftno CNP Unavailable +[phone] Reason for Visit * Reason Comments Medication Refill Gabapentin Encounter Details Date Type Department Care Team (Late st Contact Info) Description 03/05/[address] [address] Kathy Glover MD [address] [place] [address] Medication Refill (Gabapentin) Social History Tobacco [...] # refills: 0 Last Office Visit with [facility] primary care provider: 02/22/17 (evisit) 01/05/17 (in- office visit) Clinic visit frequency required: Q 6 months Future Office visit: Controlled substance agreement on file: Yes: Date 01/05/17. Processing: Fax Rx to [facility] pharmacy PSYCHOLOGY FELLOW checked in past 6 months? No, route to KARMEN Gispon CMA documented in this encounter Plan of [...] documented as of this encounter Care Teams Battery Recharger Relationship Specialty Start Date End Date Kathy Glover MD [address] [place] [address] PCP - General Family Practice 06/03/15 10/05/20 Kathy Golver MD [address] [place] [address] 25545 PCP - Assigned PCP 07/25/15 11/19/[address] 939512 PCP - General 10/06/20 11/20/21 Luh Acharya PA-C [address] [place] [address] 232642 PCP - General Family Medicine 11/21/21 01/02/23 Toma Arguello NP [address] [address] Nurse Practitioner Nurse Practitioner Psych/Mental Health 04/11/17 Kathy Glover MD [address] [place] [address] [place] [address] Assigned PCP 07/25/15 12/20/19 Laura Us MD [address] [place] [address], [place] [address] Gastroenterology 12/20/18 Luh Acharya PA-C [address] [place] [address], [place] [address] Assigned PCP 12/21/19 01/17/20 Kathy Glover MD [address] [place] [address] Assigned PCP 01/18/20 06/19/20 Luh Acharya PA-C [address] [place] [address], [place] [address] Assigned PCP 06/20/20 03/31/21 Edward Marlow MD [facility] [place] [address] Assigned Surgical Provider 07/09/20 07/31/20 Jas Bojorquez DO [address] [place] [address], [place] [address] Assigned PCP 04/01/21 05/21/21 Haven Buckner, COMEDIAN [address] [place] [address] Assigned PCP 05/22/21 11/26/21 Jenise España MD Assigned Heart and Vascular Provider 07/24/21 11/17/22 Tierra Cancino PA-C [address] [place] [address] Physician Psychologist Educational Urology 11/17/21 Luh Acharya PA-C [address] [place] [address] Assigned PCP 11/27/21 12/31/21 Tierra Cancino PA-C [address] [place] [address] Assigned Surgical Provider 12/11/21 06/08/23 Haven Buckner, NICOLE [address] [place] [address] Assigned PCP 01/01/22 12/22/22 Luh Acharya PA-C [address] [place] [address] Assigned PCP 12/23/22 05/18/23 Haven Buckner, COMEDIAN [address] [place] [address] Assigned PCP 05/19/23 documented as of this encounter
--- OUTSIDE RECORDS SUMMARY | 2024-04-10 08:21 | XMS_ITS | Encounter Summary ---
Author Organization [place] Address [address] [place] [address] Care Team Providers Care Boiler Repairman Name Role Phone Kathy Glover MD Primary Care Provider Toma Arguello NP Unavailable [phone] Kathy Glover MD Unavailable +[phone] Kathy Glover MD Unavailable +[phone] Laura Us MD Unavailable Luh AcharyaC Unavailable + [phone] Kathy Glover MD Unavailable + -[phone] Luh AcharyaC Unavailable + [phone] Edward Marlow MD Unavailable +[phone] [facility] Primary Care Provider Jas Bojorquez DO Unavailable +-[phone] Haven Buckner CNP Unavailable +2-2 [phone] Jenise España MD Unavailable Unavailable Tierra Cancino PA-C Unavailable Luh AcharyaC Primary Care Provider + Luh Acharya PA-C Unavailable [phone] Tierra Cancinoe PA-C Unavailable Haven Buckner INSTALLER INTERIOR ASSEMBLIES Unavailable +1-2-2 [phone] Luh Acharya PA-C Unavailable [phone] BucknerHaven lofton INSTALLER INTERIOR ASSEMBLIES Unavailable +1-2-2 [phone] Reason for Visit * Reason Onset Date Comments Refill Request 04/18/2018 topiramate (TOPA MAX) 50 MG tablet Encounter Details Date Type Department Care Team (Late st Contact Info) Description 04/18/2018 Refill [facility] Heart [address] [place] [address] Kathy Glover MD [address] [place] [address] Refill Request (topiramate (TOPAMAX) 50 MG [...] from weight check today. Dona Smith RN [place] Triage * Telephone Encounter - Giovanna Casey - 04/24/2018 3:24 PM CDT Left non-detailed message for patient to call back. Please schedule follow up when patient calls back. (see previous notes for details) Giovanna Casey Training Representative * Telephone Encounter - Tiffanie Darby RN - 04/23/2018 10:58 AM CDT Giovanna, can you find an appointment for her? Franca Darby RN- Triage [employer] * Telephone Encounter - Kathy Glover MD - 04/19/2018 5:29 PM CDT Nope this is from us - for weight loss and migraines. Wt [...] getting this from neurology? TAYLA Simmons, RN, PHN [facility] [phone] * Telephone Encounter - Nery Chua - [...] HCT 38.9 PLT 342 For GICH ONLY: [id number] = WBC, [id number] = RBC Passed - Normal ALT or [...] status migrainosus- now seeing Dr. Damian - [facility] - used to see Dr. Eliseo Dubon [email or web address] clinic of Neurology Migraine without aura, with [...] documented as of this encounter Care Teams Boiler Repairman Relationship Specialty Start Date End Date Kathy Glover MD [address] [place] [address] [phone] PCP - General Family Practice 06/03/15 10/05/20 Kathy Glover MD [address] [place] [address] 387462 PCP - Assigned PCP 07/25/15 11/19/[address] [phone] PCP - General 10/06/20 11/20/21 Luh Acharya PA-C [address] [place] [address] [phone] PCP - General Family Medicine 11/21/21 01/02/23 Toma Arguello NP [address] [address] Nurse Practitioner Nurse Practitioner Psych/Mental Health 04/11/17 Kathy Glover MD [address] [place] [address] 81247 Assigned PCP 07/25/15 12/20/19 Laura Us MD [address] [place] [address] 66135 Gastroenterology 12/20/18 Luh Acharya PA-C [address] [place] [address] 44149 Assigned PCP 12/21/19 01/17/20 Kathy Glover MD [address] [place] [address] 65557 Assigned PCP 01/18/20 06/19/20 Luh Acharya PA-C [address] [place] [address] 95033 Assigned PCP 06/20/20 03/31/21 Edward Marlow MD [address] [place] [address] 52203 Assigned Surgical Provider 07/09/20 07/31/20 Jas Bojorquez DO [address] [place] [address] 55422 Assigned PCP 04/01/21 05/21/21 Haven Buckner, INSTALLER INTERIOR ASSEMBLIES [address] [place] [address] 22220 Assigned PCP 05/22/21 11/26/21 Jenise España MD Assigned Heart and Vascular Provider 07/24/21 11/17/22 Tirera Cancino PA-C [address] [place] [address] Physician Auto Clutch Rebuilder Urology 11/17/21 Luh Acharya PA-C [address] [place] [address] 70171 Assigned PCP 11/27/21 12/31/21 Tierra Cancino PA-C [address] [place] [address] Assigned Surgical Provider 12/11/21 06/08/23 Haven Buckner CNP [address] [place] [address] 27731 Assigned PCP 01/01/22 12/22/22 Luh Acharya PA-C [address] [place] [address] 93224 Assigned PCP 12/23/22 05/18/23 Haven Buckner CNP [address] [place] [address] 55819 Assigned PCP 05/19/23 documented as of this encounter
--- OUTSIDE RECORDS SUMMARY | 2024-04-10 08:21 | XMS_ITS | Encounter Summary ---
Author Organization [place] Address [address] [facility] [place] [address] Care Team Providers Care Signal And Communications Maintainer Name Role Phone Kathy Glover MD Primary Care Provider Toma Arguello NP Unavailable [phone] Laura Us MD Unavailable Luh Acharya-C Unavailable + [phone] Kathy Glover MD Unavailable +-[phone] Luh Acharya-C Unavailable + [phone] Edward Marlow MD Unavailable [phone] [facility] Primary Care Provider Jas Bojorquez DO Unavailable +[phone] Haven Buckner CNP Unavailable +2-2 [phone] Jenise España MD Unavailable Unavailable Tierra Cancino-C Unavailable +[phone] Luh AcharyaC Primary Care Provider + Luh Acharya-C Unavailable + [phone] Tierra Cancino-C Unavailable BucknerHavenzarosa maria RIVERA Unavailable +1- Luh Acharya PA-C Unavailable +1- Haven Bucknerlolita RIVERA Unavailable +1 Encounter Details Date Type Department Care Team (Late st Contact Info) Description 01/09/2020 [facility] Medical Advice [address] [phone] Amber Marc Social History Tobacco Use Types [...] documented as of this encounter Care Teams Signal And Communications Maintainer Relationship Specialty Start Date End Date Kathy Glover MD [address] [place] [address] [phone] PCP - General Family Practice 06/03/15 10/05/20 Clinic - [address] [phone] PCP - General 10/06/20 11/20/21 Luh Acharya PA-C [address] [place] [address] 74483 PCP - General Family Medicine 11/21/21 01/02/23 Toma Arguello NP [address] [address] Nurse Practitioner Nurse Practitioner Psych/Mental Health 04/11/17 Laura Us MD [address] [address] Gastroenterology 12/20/18 Luh Acharya PA-C [address] [place] [address] 51120 Assigned PCP 12/21/19 01/17/20 Kathy Glover MD [address] [place] [address] 04530 Assigned PCP 01/18/20 06/19/20 Luh Acharya PA-C [address] [place] [address] 72538 Assigned PCP 06/20/20 03/31/21 Edward Marlow MD [address] [place] [address] 37662 Assigned Surgical Provider 07/09/20 07/31/20 Jas Bojorquez DO [address] [place] [address] 93646 Assigned PCP 04/01/21 05/21/21 Haven Buckner, NICOLE [address] [place] [address], [place] [address] Assigned PCP 05/22/21 11/26/21 Jenise España MD Assigned Heart and Vascular Provider 07/24/21 11/17/22 Tierra Cancino PA-C [address] [place] [address] Physician Audio Visual Facilities Engineer Urology 11/17/21 Luh Acharya PA-C [address] [place] [address] 36065 Assigned PCP 11/27/21 12/31/21 Tierra Cancino PA-C [address] [place] [address] Assigned Surgical Provider 12/11/21 06/08/23 Haven Buckner CNP [address] [place] [address], [place] [address] Assigned PCP 01/01/22 12/22/22 uLh Acharya PA-C [address] [place] [address], [place] [address] Assigned PCP 12/23/22 05/18/23 Haven Buckner, NICOLE [address] [place] [address] 97153 Assigned PCP 05/19/23 documented as of this encounter
--- OUTSIDE RECORDS SUMMARY | 2024-04-10 08:21 | XMS_ITS | Encounter Summary ---
Author Organization [place] Address [address] [facility] [place] [address] Care Team Providers Care Cloth Baler Name Role Phone Kathy Glover MD Primary Care Provider Toma Arguello NP Unavailable [phone] Kathy Glover MD Unavailable +[phone] Kathy Glover MD Unavailable +[phone] Laura Us MD Unavailable Luh AcharyaC Unavailable + [phone] Kathy Glover MD Unavailable + -[phone] Luh AcharyaC Unavailable + [phone] Edward Marlow MD Unavailable +[phone] [facility] Primary Care Provider Jas Bojorquez DO Unavailable +-[phone] Haven Buckner CNP Unavailable +2-2 26-2600 Jenise España MD Unavailable Unavailable Tierra Cancino PA-C Unavailable [phone] Luh AcharyaC Primary Care Provider + Luh AcharyaC Unavailable +1-- [phone] iTerra Cancinovandana BAUTISTAC Unavailable +[phone] BucknerHaven lofton Meaghan CNP Unavailable +12-2 Luh AcharyaC Unavailable +1-- [phone] BucknerHaven lofton CNP Unavailable +12-2 Reason for Visit * Reason Comments Medication Refill Encounter Details Date Type Department Care Team (Late st Contact Info) Description 03/14/2018 Refill [facility] Mental Health & [facility] [address] [facility] [address] [place] [address] [place] [address] [place] [address] Medication Refill Social History Tobacco Use Types [...] Miscellaneous Notes * Telephone Encounter - Nessa Quintana RN - 03/14/2018 11:43 AM CDT Will [...] documented as of this encounter Care Teams Cloth Baler Relationship Specialty Start Date End Date Kathy Glover MD [address] [place] [address] 36658 PCP - General Family Practice 06/03/15 10/05/20 Kathy Glover MD [address] [place] [address] [phone] PCP - Assigned PCP 07/25/15 11/19/[address] 701872 PCP - General 10/06/20 11/20/21 Luh Acharya PA-C [address] [place] [address] 082832 PCP - General Family Medicine 11/21/21 01/02/23 Toma Arguello NP [address] [address] Nurse Practitioner Nurse Practitioner Psych/Mental Health 04/11/17 Kathy Glover MD [address] [place] [address] 35853 Assigned PCP 07/25/15 12/20/19 Laura Us MD [address] [place] [address] 27727 Gastroenterology 12/20/18 Luh Acharya PA-C [address] [place] [address] 585412 Assigned PCP 12/21/19 01/17/20 Kathy Glover MD [address] [place] [address] 575692 Assigned PCP 01/18/20 06/19/20 Luh Acharya PA-C [address] [place] [address] [phone] Assigned PCP 06/20/20 03/31/21 Edward Marlow MD [address] [place], [place] 936727 Assigned Surgical Provider 07/09/20 07/31/20 Jas Bojorquez DO [address] [place] [address] 373232 Assigned PCP 04/01/21 05/21/21 Haven Buckner, CANDY DIPPER [address] [place] [address] 188412 Assigned PCP 05/22/21 11/26/21 Jenise España MD Assigned Heart and Vascular Provider 07/24/21 11/17/22 Tierra Cancino PA-C [address] [address] Physician Senior Commissions Analyst Urology 11/17/21 Luh Acharya PA-C [address] [facility] [place] [address] Assigned PCP 11/27/21 12/31/21 Tierra Cancino PA-C [address] [place] [address] Assigned Surgical Provider 12/11/21 06/08/23 Haven Buckner, CANDY DIPPER [facility] [place] [address] Assigned PCP 01/01/22 12/22/22 Luh Acharya PA-C [address] [place] [address], [place] [address] Assigned PCP 12/23/22 05/18/23 Haven Buckner, CANDY DIPPER [address] [place] [address], [place] [address] Assigned PCP 05/19/23 documented as of this encounter
--- OUTSIDE RECORDS SUMMARY | 2024-04-10 08:21 | XMS_ITS | Encounter Summary ---
Author Organization [place] Address [address] [facility] [place] [address] Care Team Providers Care Senior Research Project Manager Name Role Phone Kathy Glover MD Primary Care Provider Toma Arguello NP Unavailable [phone] Kathy Glover MD Unavailable +[phone] Laura Us MD Unavailable Luh AcharyaC Unavailable + [phone] Kathy Glover MD Unavailable +[phone] Luh AcharyaC Unavailable + [phone] Edward Marlow MD Unavailable +[phone] [facility] Primary Care Provider Jas Bojorquez DO Unavailable +-[phone] Haven Buckner CNP Unavailable +[phone] Jenise España MD Unavailable Unavailable Tierra Cancino-C Unavailable Luh Acharya PA-C Primary Care Provider + Luh AcharyaC Unavailable +[phone] Tierra Cancino PA-C Unavailable Haven Buckner CNP Unavailable +1-08-2 Luh Acharya PA-C Unavailable +[phone] Haven Buckner CNP Unavailable +1-84- Encounter Details Date Type Department Care Team (Late st Contact Info) Description 01/08/[address] [facility] [address] [phone] Marcy Smith RN Social History Tobacco Use [...] Total Score: 5 11/22/19 19 7:06 AM OLD COIN DEALER documented as of this encounter Care Teams Senior Research Project Manager Relationship Specialty Start Date End Date Kathy Glover MD [address] [place] [address] [phone] PCP - General Family Practice 06/03/15 10/05/20 Clinic - [address] [address] PCP - General 10/06/20 11/20/21 Luh Acharya PA-C [address] [place] [address] 99927 PCP - General Family Medicine 11/21/21 01/02/23 Toma Arguello STOCK CHASER [address] [address] Nurse Practitioner Nurse Practitioner Psych/Mental Health 04/11/17 Kathy Glover MD [address] [place] [address] 29055 Assigned PCP 07/25/15 12/20/19 Laura Us MD [address] [place] [address] Gastroenterology 12/20/18 Luh Acharya PA-C [address] [place] [address] 98879 Assigned PCP 12/21/19 01/17/20 Kathy Glover MD [address] [place] [address] 52792 Assigned PCP 01/18/20 06/19/20 Luh Acharya PA-C [address] [place] [address] 81931 Assigned PCP 06/20/20 03/31/21 Edward Marlow MD [address] [place] [address] Assigned Surgical Provider 07/09/20 07/31/20 Jas Bojorquez DO [address] [place] [address] 082872 Assigned PCP 04/01/21 05/21/21 Haven Buckner, ASSEMBLY CLEANER [address] [place] [address] 102182 Assigned PCP 05/22/21 11/26/21 Jenise España MD Assigned Heart and Vascular Provider 07/24/21 11/17/22 Tierra Cancino PA-C [address] [place] [address] Physician Devops Engineer Urology 11/17/21 Luh Acharya PA-C [address] [place] [address] 43922 Assigned PCP 11/27/21 12/31/21 Tierra Cancino PA-C [address] [facility] [address] [place] [address] Assigned Surgical Provider 12/11/21 06/08/23 Haven Buckner, NICOLE [address] [place] [address] Assigned PCP 01/01/22 12/22/22 Luh Acharya PA-C [address] [facility] [place] [address] Assigned PCP 12/23/22 05/18/23 Haven Buckner, ASSEMBLY CLEANER [address] [facility] [place] [address] Assigned PCP 05/19/23 documented as of this encounter
--- OUTSIDE RECORDS SUMMARY | 2024-04-10 08:21 | XMS_ITS | Encounter Summary ---
Author Organization [place] Address [address] [facility] [place] [address] Care Team Providers Care Washer Carcass Name Role Phone Kathy Glover MD Primary Care Provider Toma Arguello NP Unavailable [phone] Kathy Glover MD Unavailable +[phone] Kathy Glover MD Unavailable +[phone] Laura Us MD Unavailable Luh AcharyaC Unavailable + [phone] Kathy Glover MD Unavailable + -[phone] Luh AcharyaC Unavailable + [phone] Edward Marlow MD Unavailable +[phone] [facility] Primary Care Provider Jas Bojorquez DO Unavailable +-[phone] Haven Buckner CNP Unavailable +2-2 26-2600 Jenise España MD Unavailable Unavailable Tierra Cancino PA-C Unavailable Luh AcharyaC Primary Care Provider + Luh Acharyace PA-C Unavailable +[phone] Tierra Cancinovandana BAUTISTAC Unavailable BucknerHaven lofton CORPORATE STRATEGY INTERN Unavailable +1-2-2 260 Luh Acharya Enedina DUMONT-C Unavailable +[phone] BucknerHaven lofton CORPORATE STRATEGY INTERN Unavailable +12-2 Reason for Visit * Reason Onset Date Comments MyChart Communication 02/22/[address] recommendation Encounter Details Date Type Department Care Team (Late st Contact Info) Description 02/22/2017 MyC Medical Advice [address] [phone] Kathy Glover MD [address] [place] [address] MyChart Communication (psychiatrist recomm... Social History [...] documented as of this encounter Care Teams Washer Carcass Relationship Specialty Start Date End Date Kathy Glover MD [address] [place] [address] [phone] PCP - General Family Practice 06/03/15 10/05/20 Kathy Glover MD [address] [place] [address] [phone] PCP - Assigned PCP 07/25/15 11/19/[address] 530882 PCP - General 10/06/20 11/20/21 Luh Acharya PA-C [address] [place] [address] 979192 PCP - General Family Medicine 11/21/21 01/02/23 Toma Arguello NP [address] 440077 Nurse Practitioner Nurse Practitioner Psych/Mental Health 04/11/17 Kathy Glover MD [address] [place] [address] 32883 Assigned PCP 07/25/15 12/20/19 Laura Us MD [address] [place] [address]389 Gastroenterology 12/20/18 Luh Acharya PA-C [address] [place] [address] 47262 Assigned PCP 12/21/19 01/17/20 Kathy Glover MD [address] [place] [address]324 Assigned PCP 01/18/20 06/19/20 Luh Acharya PA-C [address] [place] [address] 56347 Assigned PCP 06/20/20 03/31/21 Edward Marlow MD [address] [place] [address] Assigned Surgical Provider 07/09/20 07/31/20 Jas Bojorquez DO [address] [place] [address] 24519 Assigned PCP 04/01/21 05/21/21 Haven Buckner, CORPORATE STRATEGY INTERN [address] [place] [address] Assigned PCP 05/22/21 11/26/21 Jenise España MD Assigned Heart and Vascular Provider 07/24/21 11/17/22 Tierra Cancino PA-C [address] [place] [address] Physician Auditor/Quality Urology 11/17/21 Luh Acharya PA-C [address] [place] [address], [place] [address] Assigned PCP 11/27/21 12/31/21 Tierra Cancino PA-C [address] [place] [address] Assigned Surgical Provider 12/11/21 06/08/23 Haven Buckner, NICOLE [address] [place] [address] 69185 Assigned PCP 01/01/22 12/22/22 Luh Acharya PA-C [address] [place] [address] 71930 Assigned PCP 12/23/22 05/18/23 Haven Buckner, NICOLE [address] [place] [address] 18464 Assigned PCP 05/19/23 documented as of this encounter
--- OUTSIDE RECORDS SUMMARY | 2024-04-10 08:21 | XMS_ITS | Encounter Summary ---
Author Organization [place] Address [address] [facility] [place] [address] Care Team Providers Care Cut Off Saw Operator Metal Name Role Phone Kathy Glover MD Primary Care Provider Toma Arguello NP Unavailable [phone] Kathy Glover MD Unavailable +[phone] Kathy Glover MD Unavailable +[phone] Laura Us MD Unavailable Luh AcharyaC Unavailable + [phone] Kathy Glover MD Unavailable + -[phone] Luh AcharyaC Unavailable + [phone] Edward Marlow MD Unavailable +[phone] [facility] Primary Care Provider Jas Bojorquez DO Unavailable +-[phone] Haven Buckner CNP Unavailable +2-2 26-2600 Jenise España MD Unavailable Unavailable Tierra Cancino PA-C Unavailable +[phone] Luh AcharyaC Primary Care Provider + Luh AcharyaC Unavailable +[phone] Tierra Cancinojose guadalupe BAUTISTAC Unavailable +[phone] Haven Buckner CNP Unavailable +1--2 Luh AcharyaC Unavailable +1- BucknerHaven lofton CNP Unavailable +1- Reason for Referral * Diagnostic Imaging MRI - Closed Specialty Diagnoses / Procedures Referred By Contlidia t Referred To Contact Radiology. Diagnoses Complex cyst of right ovary Procedures MR Pelvis (HOTEL SERVER) wo & w Contrast MR Pelvis (HOTEL SERVER) w Contrast Kathy Glover MD [address] [place] [address] Mri [address] [place] [address] Referral ID Status Reason Start Date Expiration Date Visits Re quested Visits Authorized [id number] Closed 08/19/2018 08/19/2019 1 1 D MAP EDITOR Reason for Visit * Reason Onset Date Comments MyChart Communication 08/15/2018 Re: MRI re sults back specialist Encounter Details Date Type Department Care Team (Late st Contact Info) Description 08/15/2018 MyC Medical Advice [address] [place] [address] Kathy Glover MD [address] [place] [address] MyChart Communication (Re: MRI results bennett... [...] Doan RN - 08/19/2018 9:42 AM CST [employer] message sent to patient with recommendation below. TAYLA Simmons, RN, PHN [facility] [phone] D MAP EDITOR * Telephone Encounter - Kathy Glover MD - 08/19/2018 6:19 AM FIELD MAP EDITOR Possible hemorrhagic right adnexal cysts noted on MRI lumbar spine - radiology recommended MR of pelvis to better discern. Ordered. Please inform patient. D MAP EDITOR * Telephone Encounter - Coty Doan RN - 08/15/2018 12:56 PM FIELD MAP EDITOR Forwarded to . Please review patient's [employer] message and advise. Coty Dona RN, BS, PHN D MAP EDITOR documented in this encounter Plan of Treatment Not on file documented as of this encounter Results * MR Pelvis (HOTEL SERVER) wo & w Contrast (08/27/2018 8:13 AM FIELD MAP EDITOR) Anatomical Region Laterality Modality Abdomen/Pelvis, SUBRAD MR BODY, UMP MR BODY, RAD MR Magnetic Resonance Impressions 08/27/2018 4:09 PM FIELD MAP EDITOR IMPRESSION: 1. Grouping of cysts at the right upper pelvis may arise from the right ovary versus adnexa. Two of these have elevated T1 signal suggesting hemorrhagic cysts while another is a small simple cyst. 2. The uterus is absent. The left ovary is not visualized for assessment. 3. A few scattered colonic diverticula. JAXON STAPLES MD Narrative 08/27/2018 4:09 PM FIELD MAP EDITOR MR PELVIS (HOTEL SERVER) WITH AND WITHOUT CONTRAST August 27, 2018 8:13 AM HISTORY: Complex cysts near right adnexa noted on MRI lumbar spine. Rule out hemorrhagic/endometriosis. TECHNIQUE: Multiplanar, multiecho MRI was performed using T1, T2, and in- and tqc-ts-osnfy imaging. Pre- and postcontrast T1 images were [...] Jaxon Staples MD - 08/27/2018 MR PELVIS (HOTEL SERVER) WITH AND WITHOUT CONTRAST August 27, 2018 8:13 AM HISTORY: Complex cysts near right adnexa noted on MRI lumbar spine. Rule out hemorrhagic/endometriosis. TECHNIQUE: Multiplanar, multiecho MRI was performed using T1, T2, and in- and sqm-ek-tjong imaging. Pre- and postcontrast T1 images were [...] documented as of this encounter Care Teams Cut Off Saw Operator Metal Relationship Specialty Start Date End Date Kathy Glover MD [address] [place] [address] [phone] PCP - General Family Practice 06/03/15 10/05/20 Kathy Glover MD [address] [place] [address] 980272 PCP - Assigned PCP 07/25/15 11/19/[address] 109302 PCP - General 10/06/20 11/20/21 Luh Acharya PA-C [address] [place] [address] [phone] PCP - General Family Medicine 11/21/21 01/02/23 Toma Arguello NP [address] 839477 Nurse Practitioner Nurse Practitioner Psych/Mental Health 04/11/17 Kathy Glover MD [address] [place] [address] Assigned PCP 07/25/15 12/20/19 Laura Us MD [address] [place] [address] Gastroenterology 12/20/18 Luh Acharya PA-C [address] [place] [address] 550[address] Assigned PCP 12/21/19 01/17/20 Kathy Glover MD [address] [place] [address] 23483 Assigned PCP 01/18/20 06/19/20 Luh Acharya PA-C [address] [place] [address] 31659 Assigned PCP 06/20/20 03/31/21 Edward Marlow MD [address] [place] [address] Assigned Surgical Provider 07/09/20 07/31/20 Jas Bojorquez DO [address] [place] [address] Assigned PCP 04/01/21 05/21/21 Haven Buckner, LATEX DIPPER [address] [place] [address] [place] [address] Assigned PCP 05/22/21 11/26/21 Jenise España MD Assigned Heart and Vascular Provider 07/24/21 11/17/22 Tierra Cancino PA-C [address] [place] [address] Physician Enrollment Management Manager Urology 11/17/21 Luh Acharya PA-C [address] [place] [address] Assigned PCP 11/27/21 12/31/21 Tierra Cancino PA-C [address] [place] [address] Assigned Surgical Provider 12/11/21 06/08/23 Haven Buckner CNP [address] [place] [address] Assigned PCP 01/01/22 12/22/22 Luh Acharya PA-C [address] [place] [address] Assigned PCP 12/23/22 05/18/23 Haven Buckner CNP [address] [place] [address] Assigned PCP 05/19/23 documented as of this encounter
--- OUTSIDE RECORDS SUMMARY | 2024-04-10 08:21 | XMS_ITS | Encounter Summary ---
Author Organization [place] Address [address] [facility] [place] [address] Care Team Providers Care Licensed Sales Assistant Name Role Phone Kathy Glover MD Primary Care Provider Toma Arguello NP Unavailable [phone] Kathy Glover MD Unavailable +[phone] Laura Us MD Unavailable Luh AcharyaC Unavailable + [phone] Kathy Glover MD Unavailable +[phone] Luh AcharyaC Unavailable + [phone] Edward Marlow MD Unavailable +[phone] [facility] Primary Care Provider Jas Bojorquez DO Unavailable +[phone] Haven Buckner CNP Unavailable +[phone] Jenise España MD Unavailable Unavailable Tierra Cancino-C Unavailable Luh Acharya PA-C Primary Care Provider + Luh AcharyaC Unavailable Tierra Cancino PA-C Unavailable Haven Buckner CNP Unavailable +[phone] Luh Acharya PA-C Unavailable [phone] Haven Buckner CNP Unavailable +[phone] Reason for Visit * Reason Comments Medication Refill Encounter Details Date Type Department Care Team (Late st Contact Info) Description [facility] [address] [phone] Luh Acharya PA-C [address] [place] [address] Medication Refill Social History Tobacco Use [...] documented as of this encounter Care Teams Licensed Sales Assistant Relationship Specialty Start Date End Date Kathy Glover MD [address] [place] [address] 70773 PCP - General Family Practice 06/03/15 10/05/[address] [address] PCP - General 10/06/20 11/20/21 Luh Acharya PA-C [address] [place] [address]37 PCP - General Family Medicine 11/21/21 01/02/23 Toma Arguello NP [address] [address] Nurse Practitioner Nurse Practitioner Psych/Mental Health 04/11/17 Kathy Glover MD [address] [place] [address] 45248 Assigned PCP 07/25/15 12/20/19 Laura Us MD [address] [place] [address] 44999 Gastroenterology 12/20/18 Luh Acharya PA-C [address] [place] [address] 76844 Assigned PCP 12/21/19 01/17/20 Kathy Glover MD [address] [place] [address] 13334 Assigned PCP 01/18/20 06/19/20 Luh Acharya PA-C [address] [place] [address] 80068 Assigned PCP 06/20/20 03/31/21 Edward [place] [address] Assigned Surgical Provider 07/09/20 07/31/20 Jas Bojorquez DO [address] [place] [address] 65788 Assigned PCP 04/01/21 05/21/21 Haven Buckner, AFTER SCHOOL COUNSELOR [address] [place] [address] 68233 Assigned PCP 05/22/21 11/26/21 Jenise España MD Assigned Heart and Vascular Provider 07/24/21 11/17/22 Tierra Cancino PA-C [address] [place] [address] Physician Clean Out Driller Helper Urology 11/17/21 Luh Acharya PA-C [address] [place] [address] 67516 Assigned PCP 11/27/21 12/31/21 Tierra Cancino PA-C [address] [place] [address] Assigned Surgical Provider 12/11/21 06/08/23 Haven Buckner, NICOLE [address] [place] [address] 92418 Assigned PCP 01/01/22 12/22/22 Luh Acharya PA-C [address] [place] [address] 61799 Assigned PCP 12/23/22 05/18/23 Haven Buckner, AFTER SCHOOL COUNSELOR [address] [place] [address] 11914 Assigned PCP 05/19/23 documented as of this encounter
--- OUTSIDE RECORDS SUMMARY | 2024-04-10 08:22 | XMS_ITS | Encounter Summary ---
Author Organization [place] Address [address] [facility] [place] [address] Care Team Providers Care Noc Engineer Name Role Phone Kathy Glover MD Primary Care Provider Toma Arguello NP Unavailable [phone] Kathy Glover MD Unavailable +[phone] Kathy Glover MD Unavailable +[phone] Laura Us MD Unavailable Luh AcharyaC Unavailable + [phone] Kathy Glover MD Unavailable + [phone] Luh AcharyaC Unavailable + [phone] Edward Marlow MD Unavailable [phone] [facility] Primary Care Provider Jas Bojorquez DO Unavailable +[phone] Haven Buckner CNP Unavailable +[phone] Jenise España MD Unavailable Unavailable Tierra Cancino PA-C Unavailable [phone] Luh AcharyaC Primary Care Provider + Luh AcharyaC Unavailable +[phone] Tierra Cancinojose guadalupe HUFF Unavailable +[phone] Haven Buckner CNP Unavailable +1--2 Luh AcharyaC Unavailable +[phone] BucknerHaven lofton CNP Unavailable +[phone] Reason for Visit * Reason Comments Medication Refill Encounter Details Date Type Department Care Team (Late st Contact Info) Description 05/09/[address] [phone] Kathy Glover MD [address] [place] [address] [phone] Medication Refill Social History Tobacco Use Types [...] Total Score: 5 11/19/19 16 7:51 AM BOARD FINISHER documented as of this encounter Care Teams Noc Engineer Relationship Specialty Start Date End Date Kathy Glover MD [address] [place] [address] PCP - General Family Practice 06/03/15 10/05/20 Kathy Glover MD [address] [place] [address] [phone] PCP - Assigned PCP 07/25/15 11/19/[address] 820802 PCP - General 10/06/20 11/20/21 Luh Acharya PA-C [address] [place] [address] 233882 PCP - General Family Medicine 11/21/21 01/02/23 Toma Arguello NP [address] [address] Nurse Practitioner Nurse Practitioner Psych/Mental Health 04/11/17 Kathy Glover MD [address] [place] [address] 13689 Assigned PCP 07/25/15 12/20/19 Laura Us MD [address] [place] [address] 07550 Gastroenterology 12/20/18 Luh Acharya PA-C [address] [place] [address] 83996 Assigned PCP 12/21/19 01/17/20 Kathy Glover MD [address] [place] [address] 11747 Assigned PCP 01/18/20 06/19/20 Luh Acharya PA-C [address] [place] [address] 07451 Assigned PCP 06/20/20 03/31/21 Edward [place] [address] Assigned Surgical Provider 07/09/20 07/31/20 Jas Bojorquez DO [address] [place] [address] 40339 Assigned PCP 04/01/21 05/21/21 Haven Buckner, NICOLE [address] [place] [address] 32395 Assigned PCP 05/22/21 11/26/21 Jenise España MD Assigned Heart and Vascular Provider 07/24/21 11/17/22 Tierra Cancino PA-C [address] [place] [address] Physician Aboriginal Community Council Member Urology 11/17/21 Luh Acharya PA-C [address] [place] [address] 18321 Assigned PCP 11/27/21 12/31/21 Tierra Cancino PA-C [address] [place] [address] Assigned Surgical Provider 12/11/21 06/08/23 Haven Buckner, NICOLE [address] [place] [address] 38357 Assigned PCP 01/01/22 12/22/22 Luh Acharya PA-C [address] [place] [address] 84002 Assigned PCP 12/23/22 05/18/23 Haven Buckner CNP [address] [place] [address] 65812 Assigned PCP 05/19/23 documented as of this encounter
--- OUTSIDE RECORDS SUMMARY | 2024-04-10 08:22 | XMS_ITS | Encounter Summary ---
Author Organization [place] Address [address] [place] [address] Care Team Providers Care Men'S Furnishings Salesperson Name Role Phone Kathy Glover MD Primary Care Provider Toma Arguello NP Unavailable [phone] Kathy Glover MD Unavailable +[phone] Kathy Glover MD Unavailable +[phone] Laura Us MD Unavailable Luh AcharyaC Unavailable + [phone] Kathy Glover MD Unavailable + [phone] Luh AcharyaC Unavailable + [phone] Edward Marlow MD Unavailable +[phone] [facility] Primary Care Provider Jas Bojorquez DO Unavailable +[phone] Haven Buckner CNP Unavailable +2-2 [phone] Jenise España MD Unavailable Unavailable Tierra Cancino PA-C Unavailable Luh AcharyaC Primary Care Provider + Luh AcharyaC Unavailable [phone] Tierra Cancino MICHELEC Unavailable +[phone] Haven Buckner CNP Unavailable +1-2-2 [phone] Karri Acharyakirsty BAUTISTAC Unavailable +[phone] BucknerHaven lofton CNP Unavailable +12-2 Reason for Visit * Reason Onset Date Comments MyChart Communication 02/15/2017 migraine t reatments Encounter Details Date Type Department Care Team (Late st Contact Info) Description 02/15/2017 MyC Medical Advice [address] [phone] Kathy Glover MD [address] [place] [address] MyChart Communication (migraine treatments) Social History [...] with PCP recommendations. TAYLA Simmons, RN, [place] Triage * Telephone Encounter - Kathy Glover [...] of PCP recommendations below. Script walked to [facility]. Patient asked if appeal letter had been written for her Midrin. I see that Midrin PA was denied on 01/17/2017. I do not see an appeal letter in chart so unsure of status. Will route to . TAYLA Simmons, RN, [place] Triage * Telephone Encounter - Marcy Smith RN - 02/21/2017 8:28 AM CDT Received signed script. Attempt #1 to call pt. Marcy Smith contacted Yenni on 02/21/17 and left a message. If patient calls back please contact RN team. Put script on [facility] desk incase pt calls back. Dona Smith RN * Telephone Encounter - Marcy Smith RN - 02/21/2017 7:55 AM CDT Prescription put on [facility] desk for signature to then give to triage to alert pt of below. Dona Smith RN * Telephone Encounter - Kathy Glover MD - 02/21/2017 12:20 AM CDT Done for #20 tabs for severe pain - try to just take 1/2 tab for migraines, if needed. rx at [facility], please bring to me later this am when back in clinic and I'll sign. rx needs to bi picked up or walked over to our pharmacy. Await results of referral from neurology. * Telephone Encounter - Coty Doan RN - 02/16/2017 3:28 PM CDT Please review patient's mychart message. TAYLA Simmons, RN, PHN [place] Triage * Telephone Encounter - Coty Doan RN - 02/16/2017 2:40 PM CDT Mychart note sent to patient with provider recommendations below. TAYLA Simmons, RN, PHN [place] Triage * Telephone Encounter - Kathy Glover MD - 02/16/2017 2:29 PM CDT ? Is pt doing the postconcussion program either through [facility] or via [facility] concussion wellness ambassador? Would highly recommend the [facility] program. If pt desires to do medical [...] - CSA - 06/03/2015 - #30 norco 5//month -see q6 month med check appointments Chronic [...] documented as of this encounter Care Teams Men'S Furnishings Salesperson Relationship Specialty Start Date End Date Kathy Glover MD [address] [place] [address] PCP - General Family Practice 06/03/15 10/05/20 Kathy Glover MD [address] [place] [address] 472162 PCP - Assigned PCP 07/25/15 11/19/[address] [phone] PCP - General 10/06/20 11/20/21 Luh Acharya PA-C [address] [place] [address] 627912 PCP - General Family Medicine 11/21/21 01/02/23 Toma Arguello NP [address] [address] Nurse Practitioner Nurse Practitioner Psych/Mental Health 04/11/17 Kathy Glover MD [address] [place] [address]38 Assigned PCP 07/25/15 12/20/19 Laura Us MD [address] [place] [address] 08337 Gastroenterology 12/20/18 Luh Acharya PA-C [address] [place] [address] 09859 Assigned PCP 12/21/19 01/17/20 Kathy Glover MD [address] [place] [address] 832382 Assigned PCP 01/18/20 06/19/20 Luh Acharya PA-C [address] [place] [address] 488462 Assigned PCP 06/20/20 03/31/21 [place] [address] Assigned Surgical Provider 07/09/20 07/31/20 Jas Bojorquez DO [address] [place] [address] 796832 Assigned PCP 04/01/21 05/21/21 Haven Buckner, NICOLE [address] [place] [address] 192592 Assigned PCP 05/22/21 11/26/21 Jenise España MD Assigned Heart and Vascular Provider 07/24/21 11/17/22 Tierra Cancino PA-C [address] [place] [address] Physician Automotive Brake Specialist Urology 11/17/21 Luh Acharya PA-C [address] [place] [address], [place] [address] Assigned PCP 11/27/21 12/31/21 Tierra Cancino PA-C [address] [place] [address] Assigned Surgical Provider 12/11/21 06/08/23 Havne Buckner, FLOAT PHLEBOTOMIST [address] [place] [address], [place] [address] Assigned PCP 01/01/22 12/22/22 Luh Acharya PA-C [address] [place] [address], [place] [address] Assigned PCP 12/23/22 05/18/23 Haven Buckner, FLOAT PHLEBOTOMIST [address] [place] [address]44 Assigned PCP 05/19/23 documented as of this encounter
--- OUTSIDE RECORDS SUMMARY | 2024-04-10 08:22 | XMS_ITS | Encounter Summary ---
Author Organization [place] Address [address] [facility] [place] [address] Care Team Providers Care Evp Managing Director Name Role Phone Kathy Glover MD Primary Care Provider Toma Arguello NP Unavailable [phone] Kathy Glover MD Unavailable +[phone] Kathy Glover MD Unavailable +[phone] Laura Us MD Unavailable Luh AcharyaC Unavailable + [phone] Katyh Glover MD Unavailable + [phone] Luh AcharyaC Unavailable + [phone] Edward Marlow MD Unavailable +[phone] [facility] Primary Care Provider Jas Bojorquez DO Unavailable +[phone] Haven Buckner CNP Unavailable +2-2 [phone] Jenise España MD Unavailable Unavailable Tierra Cancino PA-C Unavailable Lhu AcharyaC Primary Care Provider + Luh Acharyace PA-C Unavailable [phone] Tierra Cancinovandana DUMONT-C Unavailable +[phone] BucknerHaven lofton CNP Unavailable +[phone] Luh Acharya Enedina DUMONT-C Unavailable [phone] Sita Haven Harding CNP Unavailable +1-2-2 [phone] Reason for Visit * Reason Onset Date Comments MyChart Communication 01/18/2017 referrals Encounter Details Date Type Department Care Team (Late st Contact Info) Description 01/18/2017 MyC Medical Advice [address] [phone] [place] [address] [place] [address] MyChart Communication (referrals) Social History Tobacco [...] Smith RN - 01/18/2017 12:44 PM CDT [facility] sent with information. Dona Smith RN documented [...] documented as of this encounter Care Teams Evp Managing Director Relationship Specialty Start Date End Date Kathy Glover MD [address] [place] [address]47 PCP - General Family Practice 06/03/15 10/05/20 Kathy Glover MD [address] [place] [address] 394672 PCP - Assigned PCP 07/25/15 11/19/[address] 742102 PCP - General 10/06/20 11/20/21 Luh Acharya PA-C [address] [place] [address] 309392 PCP - General Family Medicine 11/21/21 01/02/23 Toma Arguello NP [address] [address] Nurse Practitioner Nurse Practitioner Psych/Mental Health 04/11/17 Kathy Glover MD [address] [place] [address] Assigned PCP 07/25/15 12/20/19 Laura Us MD [address] [place] [address] 07781 Gastroenterology 12/20/18 Luh Acharya PA-C [address] [place] [address] 19554 Assigned PCP 12/21/19 01/17/20 Kathy Glover MD [address] [place] [address] 652082 Assigned PCP 01/18/20 06/19/20 Luh Acharya PA-C [address] [place] [address] 752122 Assigned PCP 06/20/20 03/31/21 Edward Marlow MD [address] [place] [address] Assigned Surgical Provider 07/09/20 07/31/20 Jas Bojorquez DO [address] [place] [address] 139902 Assigned PCP 04/01/21 05/21/21 Haven Buckner, NICOLE [address] [place] [address] 855532 Assigned PCP 05/22/21 11/26/21 Jenise España MD Assigned Heart and Vascular Provider 07/24/21 11/17/22 Tierra Cancino PA-C [address] [address] Physician Quality Assurance Qa Lab Technician Urology 11/17/21 Luh Acharya PA-C [address] [facility] [place] [address] Assigned PCP 11/27/21 12/31/21 Tierra Cancino PA-C [address] [place] [address] Assigned Surgical Provider 12/11/21 06/08/23 Haven Buckner, ADULT SERVICES LIBRARIAN [address] [facility] [place] [address] Assigned PCP 01/01/22 12/22/22 Luh Acharya PA-C [address] [facility] [place] [address] Assigned PCP 12/23/22 05/18/23 Haven Buckner, ADULT SERVICES LIBRARIAN [facility] [facility] [place] [address] Assigned PCP 05/19/23 documented as of this encounter
--- OUTSIDE RECORDS SUMMARY | 2024-04-10 08:22 | XMS_ITS | Encounter Summary ---
Author Organization [place] Address [address] [facility] [address] Care Team Providers Care Administrative Operations Coordinator Name Role Phone Kathy Glover MD Primary Care Provider Toma Arguello NP Unavailable [phone] Kathy Glover MD Unavailable +[phone] Kathy Glover MD Unavailable +[phone] Laura Us MD Unavailable Luh AcharyaC Unavailable + [phone] Kathy Glover MD Unavailable + [phone] Luh AcharyaC Unavailable + [phone] Edward Marlow MD Unavailable [phone] [facility] Primary Care Provider Jas Bojorquez DO Unavailable +[phone] Haven Buckner CNP Unavailable +2-2 [phone] Jenise España MD Unavailable Unavailable Tierra Cancino PA-C Unavailable Luh AcharyaC Primary Care Provider + Luh AcharyaC Unavailable Barak Tierra Man PA-C Unavailable [phone] Haven Buckner CNP Unavailable +1-2-2 Luh AcharyaC Unavailable +[phone] BucknerHaven lofton CNP Unavailable +[phone] Reason for Visit * Reason Onset Date Comments Refill Request 05/09/2016 flexeril Encounter Details Date Type Department Care Team (Late st Contact Info) Description 05/09/[address] [phone] [place] [address] [place] [address] Refill Request (flexeril) Social History Tobacco [...] for review/approval because: Drug not on the [facility] refill protocol not on med list for RN protocol. 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 documented as of this encounter Care Teams Administrative Operations Coordinator Relationship Specialty Start Date End Date Kathy Glover MD [address] [place] [address] PCP - General Family Practice 06/03/15 10/05/20 Kathy Glover MD [address] [place] [address] PCP - Assigned PCP 07/25/15 11/19/[address] [address] PCP - General 10/06/20 11/20/21 Luh Acharya PA-C [address] [place] [address] PCP - General Family Medicine 11/21/21 01/02/23 Toma Arguello NP [facility] [address] [place] [address] Nurse Practitioner Nurse Practitioner Psych/Mental Health 04/11/17 Kathy Glover MD [address] [place] [address] Assigned PCP 07/25/15 12/20/19 Laura Us MD [address] [place] [address] 495[address] Gastroenterology 12/20/18 Luh Acharya PA-C [address] [place] [address] Assigned PCP 12/21/19 01/17/20 Kathy Glover MD [address] [place] [address] 442252 Assigned PCP 01/18/20 06/19/20 Luh Acharya PA-C [address] [place] [address] Assigned PCP 06/20/20 03/31/21 Edward Marlow MD [address] [place] [address] Assigned Surgical Provider 07/09/20 07/31/20 Jas Bojorquez DO [address] [place] [address] Assigned PCP 04/01/21 05/21/21 Haven Buckner, NICOLE [address] [place] [address], [place] [address] Assigned PCP 05/22/21 11/26/21 Jenise España MD Assigned Heart and Vascular Provider 07/24/21 11/17/22 Tierra Cancino PA-C [address] [place] [address] Physician Flying Ii Instructor Urology 11/17/21 Luh Acharya PA-C [address] [place] [address], [place] [address] Assigned PCP 11/27/21 12/31/21 Tierra Cancino PA-C [address] [place] [address] Assigned Surgical Provider 12/11/21 06/08/23 Haven Buckner CNP [address] [place] [address], [place] [address] Assigned PCP 01/01/22 12/22/22 Luh Acharya PA-C [address] [place] [address], [place] [address] Assigned PCP 12/23/22 05/18/23 Haven Buckner, NICOLE [address] [place] [address], [place] [address] Assigned PCP 05/19/23 documented as of this encounter
--- OUTSIDE RECORDS SUMMARY | 2024-04-10 08:22 | XMS_ITS | Encounter Summary ---
Author Organization [place] Address [address] [facility] [place] [address] Care Team Providers Care Health Unit Clerk Name Role Phone Kathy Glover MD Primary Care Provider Toma Arguello NP Unavailable [phone] Kathy Glover MD Unavailable +[phone] Kathy Glover MD Unavailable +[phone] Laura Us MD Unavailable Luh AcharyaC Unavailable + [phone] Kathy Glover MD Unavailable + -[phone] Luh AcharyaC Unavailable + [phone] Edward Marlow MD Unavailable +[phone] [facility] Primary Care Provider Jas Bojorquez DO Unavailable +[phone] Haven Buckner CNP Unavailable +[phone] Jenise España MD Unavailable Unavailable Tierra Cancino PA-C Unavailable Luh AcharyaC Primary Care Provider + Luh AcharyaC Unavailable Tierra Cancino MICHELEC Unavailable Haven Buckner CNP Unavailable [phone] Luh Acharya-C Unavailable +[phone] BucknerHaven lofton CNP Unavailable +[phone] Reason for Visit * Reason Onset Date Comments MyChart Communication 01/23/2017 Re: TIM for Midtheresa Encounter Details Date Type Department Care Team (Late st Contact Info) Description 01/23/2017 My[facility] [address] [address] [place] [address] [place] [address] MyChart Communication (Re: TIM for Midrin) Social History Tobacco Use Types Packs/Day Years [...] sooner appointment is needed. You can call [phone] and ask that on-call provider be paged. Coty Doan, BS, RN, PHN [place] Triage * Telephone Encounter - Coty Doan RN - 01/26/2017 4:17 PM CDT VM left for nurses line at [facility] to call us back. Detailed message left with PCP note below. TAYLA Simmons, RN, PHN [place] Triage * Telephone Encounter - Kathy Glover MD - 01/26/2017 3:26 PM CDT BP Readings from Last 6 Encounters: 01/05/17 130/80 10/16/16 132/85 09/16/16 116/82 07/14/16 116/66 07/07/16 116/66 06/30/16 120/86 bp well controlled. Please call [facility] re: pt's increasing creatinine and decreasing [...] Non GFR Calc * Telephone Encounter - Ctoy Doan RN - 01/26/2017 11:03 AM CDT [...] documented as of this encounter Care Teams Health Unit Clerk Relationship Specialty Start Date End Date Kathy Glover MD [address] [place] [address] PCP - General Family Practice 06/03/15 10/05/20 Kathy Glover MD [address] [place] [address] 61455 PCP - Assigned PCP 07/25/15 11/19/[address] [address] PCP - General 10/06/20 11/20/21 Luh Acharya PA-C [address] [place] [address] 56509 PCP - General Family Medicine 11/21/21 01/02/23 Toma Arguello NP [place] [address] [place] [address] Nurse Practitioner Nurse Practitioner Psych/Mental Health 04/11/17 Kathy Glover MD [address] [place] [address] 35028 Assigned PCP 07/25/15 12/20/19 Laura Us MD [address] [place] [address] 888312 Gastroenterology 12/20/18 Luh Acharya PA-C [address] [place] [address] 239232 Assigned PCP 12/21/19 01/17/20 Kathy Glover MD [address] [place] [address] [phone] Assigned PCP 01/18/20 06/19/20 Luh Acharya PA-C [address] [place] [address] 088362 Assigned PCP 06/20/20 03/31/21 Edward Marlow MD [facility] [place] [address] Assigned Surgical Provider 07/09/20 07/31/20 Jas Bojorquez DO [address] [place] [address], [place] [address] Assigned PCP 04/01/21 05/21/21 Haven Buckner, HUMAN RESOURCES EXECUTIVE [address] [place] [address], [place] [address] Assigned PCP 05/22/21 11/26/21 Jenise España MD Assigned Heart and Vascular Provider 07/24/21 11/17/22 Tierra Cancino PA-C [address] [place] [address] Physician Tobacco Roller Urology 11/17/21 Luh Acharya PA-C [address] [place] [address], [place] [address] Assigned PCP 11/27/21 12/31/21 Tierra Cancino PA-C [address] [place] [address] Assigned Surgical Provider 12/11/21 06/08/23 Haven Buckner, HUMAN RESOURCES EXECUTIVE [address] [place] [address], [place] [address] Assigned PCP 01/01/22 12/22/22 Luh Acharya PA-C [address] [place] [address], [place] [address] Assigned PCP 12/23/22 05/18/23 Haven Buckner, NICOLE [address] [place] [address] Assigned PCP 05/19/23 documented as of this encounter
--- OUTSIDE RECORDS SUMMARY | 2024-04-10 08:22 | XMS_ITS | Encounter Summary ---
Author Organization [place] Address [address] [facility] [place] [address] Care Team Providers Care Boat Engines Installer Name Role Phone Kathy Glover MD Primary Care Provider Toma Arguello NP Unavailable [phone] Kathy Glover MD Unavailable +[phone] Kathy Glover MD Unavailable +[phone] Laura Us MD Unavailable Luh AcharyaC Unavailable + [phone] Kathy Glover MD Unavailable + [phone] Luh AcharyaC Unavailable + [phone] Edward Marlow MD Unavailable +[phone] [facility] Primary Care Provider Jas Bojorquez DO Unavailable +[phone] Haven Buckner CNP Unavailable +[phone] Jenise España MD Unavailable Unavailable Tierra Cancino PA-C Unavailable [phone] Luh AcharyaC Primary Care Provider + Luh Acharyace PA-C Unavailable +[phone] Tierra Cancino TIM-C Unavailable BucknerHaven lofton Meaghan CNP Unavailable +- Luh Acharya Enedina DUMONT-C Unavailable + Haven Buckner PRECISION MACHINE OPERATOR Unavailable +- Reason for Visit * Reason Onset Date Comments Medication Request 05/23/2016 Encounter Details Date Type Department Care Team (Late st Contact Info) Description 05/23/2016 MyC Medical Advice [address] [phone] oDna Davidson, package delivery driver Request Social History Tobacco Use Types Packs/Day [...] review and refilled Dona Davidson RN, BSN [facility] documented in this encounter Plan of [...] documented as of this encounter Care Teams Boat Engines Installer Relationship Specialty Start Date End Date Kathy Glover MD [address] [place] [address] PCP - General Family Practice 06/03/15 10/05/20 Kathy Glover MD [address] [place] [address] [phone] PCP - Assigned PCP 07/25/15 11/19/[address] [phone] PCP - General 10/06/20 11/20/21 Luh Acharya PA-C [address] [place] [address] PCP - General Family Medicine 11/21/21 01/02/23 Tmoa Arguello NP [address] [address] Nurse Practitioner Nurse Practitioner Psych/Mental Health 04/11/17 Kathy Glover MD [address] [place] [address] Assigned PCP 07/25/15 12/20/19 Laura Us MD [address] [place] [address] 54081 Gastroenterology 12/20/18 Luh Acharya PA-C [address] [place] [address] 24633 Assigned PCP 12/21/19 01/17/20 Kathy Glover MD [address] [place] [address] 23211 Assigned PCP 01/18/20 06/19/20 Luh Acharya PA-C [address] [place] [address] 00403 Assigned PCP 06/20/20 03/31/21 [place] [address] Assigned Surgical Provider 07/09/20 07/31/20 Jas Bojorquez DO [address] [place] [address] [phone] Assigned PCP 04/01/21 05/21/21 Haven Buckner, NICOLE [address] [place] [address] [phone] Assigned PCP 05/22/21 11/26/21 Jenise España MD Assigned Heart and Vascular Provider 07/24/21 11/17/22 Tierra Cancino PA-C [address] [place] [address] Physician Substitute Teacher Urology 11/17/21 Luh Acharya PA-C [address] [place] [address] 108322 Assigned PCP 11/27/21 12/31/21 Tierra Cancino PA-C [address] [place] [address] Assigned Surgical Provider 12/11/21 06/08/23 Haven Buckner, PRECISION MACHINE OPERATOR [address] [place] [address] 77448 Assigned PCP 01/01/22 12/22/22 Luh Acharya PA-C [address] [place] [address] Assigned PCP 12/23/22 05/18/23 Haven Buckner, PRECISION MACHINE OPERATOR [address] [place] [address] 27335 Assigned PCP 05/19/23 documented as of this encounter
--- OUTSIDE RECORDS SUMMARY | 2024-04-10 08:22 | XMS_ITS | Encounter Summary ---
Author Organization [place] Address [address] [facility] [place] [address] Care Team Providers Care Acting Section Chief Name Role Phone Kathy Glover MD Primary Care Provider Toma Arguello NP Unavailable [phone] Kathy Glover MD Unavailable +[phone] Kathy Glover MD Unavailable +[phone] Laura Us MD Unavailable Luh AcharyaC Unavailable + [phone] Katyh Glover MD Unavailable + -[phone] Luh AcharyaC Unavailable + [phone] Edward Marlow MD Unavailable +[phone] [facility] Primary Care Provider Jas Bojorquez DO Unavailable +[phone] Haven Buckner CNP Unavailable +2-2 [phone] Jenise España MD Unavailable Unavailable Tierra Cancino PA-C Unavailable [phone] Luh AcharyaC Primary Care Provider + Luh AcharyaC Unavailable +[phone] Shaniamando Tierra Magda HUFF Unavailable Haven Buckner CNP Unavailable +1-2-2 Luh AcharyaC Unavailable +[phone] BucknerHaven lofton CNP Unavailable +[phone] Encounter Details Date Type Department Care Team (Late st Contact Info) Description 06/30/2016 MyC Medical Advice [address] [address] Mahesh Cuevas Jr., MD [address] [place] [address] [phone] Social History Tobacco Use Types Packs/Day Years [...] documented as of this encounter Care Teams Acting Section Chief Relationship Specialty Start Date End Date Kathy Glover MD [address] [place] [address] [phone] PCP - General Family Practice 06/03/15 10/05/20 Kathy Glover MD [address] [place] [address] 8[address]11 PCP - Assigned PCP 07/25/15 11/19/[address] [address] PCP - General 10/06/20 11/20/21 Luh Acharya PA-C [address] [place] [address] [phone] PCP - General Family Medicine 11/21/21 01/02/23 Toma Arguello NP [address] 819157 Nurse Practitioner Nurse Practitioner Psych/Mental Health 04/11/17 Kathy Glover MD [address] [place] [address] Assigned PCP 07/25/15 12/20/19 Laura Us MD [address] [place] [address] 17534 Gastroenterology 12/20/18 Luh Acharya PA-C [address] [place] [address] 40443 Assigned PCP 12/21/19 01/17/20 Kathy Glover MD [address] [place] [address] 42128 Assigned PCP 01/18/20 06/19/20 Luh Acharya PA-C [address] [place] [address] 49188 Assigned PCP 06/20/20 03/31/21 Edward Marlow [place] [address] Assigned Surgical Provider 07/09/20 07/31/20 Jas Bojorquez DO [address] [place] [address] 97506 Assigned PCP 04/01/21 05/21/21 Haven Buckner CNP [address] [place] [address] 99221 Assigned PCP 05/22/21 11/26/21 Jenise España MD Assigned Heart and Vascular Provider 07/24/21 11/17/22 Tierra Cancino PA-C [address] [place] [address] Physician Machine Plaster Mixer Urology 11/17/21 Luh Acharya PA-C [address] [place] [address] 67697 Assigned PCP 11/27/21 12/31/21 Tierra Cancino PA-C [address] [place] [address] Assigned Surgical Provider 12/11/21 06/08/23 Haven Buckner, NICOLE [address] [place] [address] 36349 Assigned PCP 01/01/22 12/22/22 Luh Acharya PA-C [address] [place] [address] 487542 Assigned PCP 12/23/22 05/18/23 Haven Buckner, NICOLE [address] [place] [address] 38232 Assigned PCP 05/19/23 documented as of this encounter
--- OUTSIDE RECORDS SUMMARY | 2024-04-10 08:22 | XMS_ITS | Encounter Summary ---
Author Organization [place] Address [address] [place] [address] Care Team Providers Care Transformation Manager Name Role Phone Kathy Glover MD Primary Care Provider Toma Arguello NP Unavailable [phone] Kathy Glover MD Unavailable +[phone] Kathy Glover MD Unavailable +[phone] Laura Us MD Unavailable Luh AcharyaC Unavailable + [phone] Kathy Glover MD Unavailable + -[phone] Luh AcharyaC Unavailable + [phone] Edward Marlow MD Unavailable [phone] [facility] Primary Care Provider Jas Bojorquez DO Unavailable +[phone] Haven Buckner CNP Unavailable +[phone] Jenise España MD Unavailable Unavailable Tierra Cancino PA-C Unavailable Luh AcharyaC Primary Care Provider + Luh AcharyaC Unavailable [phone] Barak Tierra Man PA-C Unavailable Haven Buckner [...] documented as of this encounter Care Teams Transformation Manager Relationship Specialty Start Date End Date Kathy Glover MD [address] [place] [address] [phone] PCP - General Family Practice 06/03/15 10/05/20 Kathy Glover MD [address] [place] [address] [phone] PCP - Assigned PCP 07/25/15 11/19/[address] [address] PCP - General 10/06/20 11/20/21 Luh Acharya PA-C [address] [place] [address] 31497 PCP - General Family Medicine 11/21/21 01/02/23 Toma Arguello ROLLER CHECKER [address] 436857 Nurse Practitioner Nurse Practitioner Psych/Mental Health 04/11/17 Kathy Glover MD [address] [place] [address] 209132 Assigned PCP 07/25/15 12/20/19 Laura Us MD [address] [place] [address] [phone] Gastroenterology 12/20/18 Lhu Acharya PA-C [address] [place] [address] 657932 Assigned PCP 12/21/19 01/17/20 Kathy Glover MD [address] [place] [address] 55077 Assigned PCP 01/18/20 06/19/20 Luh Acharya PA-C [address] [place] [address] 18740 Assigned PCP 06/20/20 03/31/21 Edward Marlow MD [address] [place], [place] 912[address] Assigned Surgical Provider 07/09/20 07/31/20 Jas Bojorquez DO [address] [place] [address] [phone] Assigned PCP 04/01/21 05/21/21 Haven Buckner, SUPERINTENDENT HOUSE [address] [place] [address] [phone] Assigned PCP 05/22/21 11/26/21 Jenise España MD Assigned Heart and Vascular Provider 07/24/21 11/17/22 Tierra Cancino PA-C [address] [place] [address] Physician Bobbin Sorter Urology 11/17/21 Luh Acharya PA-C [address] [place] [address] 03165 Assigned PCP 11/27/21 12/31/21 Tierra Cancino PA-C [address] [place] [address] Assigned Surgical Provider 12/11/21 06/08/23 Haven Buckner, SUPERINTENDENT HOUSE [address] [place] [address] 72793 Assigned PCP 01/01/22 12/22/22 Luh Acharya PA-C [address] [place] [address] Assigned PCP 12/23/22 05/18/23 Haven Buckner, NICOLE [address] [place] [address] 23416 Assigned PCP 05/19/23 documented as of this encounter
--- OUTSIDE RECORDS SUMMARY | 2024-04-10 08:22 | XMS_ITS | Encounter Summary ---
Author Organization [place] Address [address] [facility] [place] [address] Care Team Providers Care Driver Service Technician Name Role Phone Kathy Glover MD Primary Care Provider Toma Arguello NP Unavailable [phone] Kathy Glover MD Unavailable +[phone] Kathy Glover MD Unavailable +[phone] Laura Us MD Unavailable Luh AcharyaC Unavailable + [phone] Kathy Glover MD Unavailable + -[phone] Luh AcharyaC Unavailable + [phone] Edward Marlow MD Unavailable [phone] [facility] Primary Care Provider Jas Bojorquez DO Unavailable +[phone] Haven Buckner CNP Unavailable +2-2 [phone] Jenise España MD Unavailable Unavailable Tierra Cancino PA-C Unavailable +[phone] Luh AcharyaC Primary Care Provider + Luh AcharyaC Unavailable Tierra Cancinojose guadalupe BAUTISTAC Unavailable Haven Buckner CNP Unavailable +1-2-2 Luh AcharyaC Unavailable +[phone] BucknerHaven lofton CNP Unavailable +1--2 Reason for Visit * Reason Comments Medication Refill traZODone (DESYREL) 100 MG tablet Encounter Details Date Type Department Care Team (Late st Contact Info) Description 01/19/[address] [phone] Kathy Glover MD [address] [place] [address] Medication Refill (traZODone (DESYREL) 100 MG [...] advise Thank you Manisha Patel RN, BSN [place] Triage * Telephone Encounter - Renay Barlow RN - 01/20/2016 11:32 AM CDT traZODone (DESYREL) 100 MG tablet Rx was D/C on 11/18/15 due to Dosage Adjustment - Pt wanted to go down to 50mg Last Written Prescription Date: 06/02/15 Last Fill Quantity: n/a; # refills: n/a Last Office Visit with [facility], [facility] or [facility] prescribing provider: 11/18/15 Next 5 appointments (look out 90 days) January 29, 2016 8:45 AM Office Visit with Kathy Glover MD [facility] ([facility] [address] [place] [phone] Last PHQ-9 score on record= PHQ-9 SCORE 11/18/2015 Total Score 5 AST 39 11/18/2015 ALT 78 11/18/2015 Renay Barlow Patient Fashion Intern documented in this encounter Plan of Treatment [...] Total Score: 5 11/19/19 16 7:51 AM BARLEY STEEPER documented as of this encounter Care Teams Driver Service Technician Relationship Specialty Start Date End Date Kathy Glover MD [address] [place] [address]34 PCP - General Family Practice 06/03/15 10/05/20 Kathy Glover MD [address] [place] [address] 38901 PCP - Assigned PCP 07/25/15 11/19/[address] [address] PCP - General 10/06/20 11/20/21 Luh Acharya PA-C [address] [place] [address]258 PCP - General Family Medicine 11/21/21 01/02/23 Toma Arguello NP [address] [address] Nurse Practitioner Nurse Practitioner Psych/Mental Health 04/11/17 Kathy Glover MD [address] [place] [address] 33474 Assigned PCP 07/25/15 12/20/19 Laura Us MD [address] [place] [address] 00166 Gastroenterology 12/20/18 Luh Acharya PA-C [address] [place] [address] Assigned PCP 12/21/19 01/17/20 Kathy Glover MD [address] [place] [address] 24777 Assigned PCP 01/18/20 06/19/20 Luh Acharya PA-C [address] [place] [address] 90113 Assigned PCP 06/20/20 03/31/21 Edward Marlow MD [address] [place] [address] Assigned Surgical Provider 07/09/20 07/31/20 Jas Bojorquez DO [address] [place] [address] 06789 Assigned PCP 04/01/21 05/21/21 Haven Buckner, MANAGER DOCUMENT [address] [place] [address] 58554 Assigned PCP 05/22/21 11/26/21 Jenise España MD Assigned Heart and Vascular Provider 07/24/21 11/17/22 Tierra Cancino PA-C [address] [place] [address] Physician Homoeopath Urology 11/17/21 Luh Acharya PA-C [address] [place] [address] 79894 Assigned PCP 11/27/21 12/31/21 Tierra Cancino PA-C [address] [facility] [address] [place] [address] Assigned Surgical Provider 12/11/21 06/08/23 Haven Buckner, NICOLE [address] [place] [address] 68689 Assigned PCP 01/01/22 12/22/22 Luh Acharya PA-C [address] [place] [address] 11726 Assigned PCP 12/23/22 05/18/23 Haven Buckner, MANAGER DOCUMENT [address] [place] [address] 39618 Assigned PCP 05/19/23 documented as of this encounter
--- OUTSIDE RECORDS SUMMARY | 2024-04-10 08:22 | XMS_ITS | Encounter Summary ---
Author Organization [place] Address [address] [facility] [place] [address] Care Team Providers Care Manager Telemetry Name Role Phone Kathy Glover MD Primary Care Provider Toma Arguello NP Unavailable Kathy Glover MD Unavailable [phone] Kathy Glover MD Unavailable +[phone] Laura Us MD Unavailable Luh AcharyaC Unavailable + [phone] Kathy Glover MD Unavailable + [phone] Luh AcharyaC Unavailable + [phone] Edward Marlow MD Unavailable +[phone] [facility] Primary Care Provider Jas Bojorquez DO Unavailable +[phone] Haven Buckner CNP Unavailable +[phone] Jenise España MD Unavailable Unavailable Tierra Cancino PA-C Unavailable Luh AcharyaC Primary Care Provider + Luh Acharya PA-C Unavailable [phone] Barak Tierra Man PA-C Unavailable +[phone] Haven Buckner CNP Unavailable +1--2 Luh Acharay PA-C Unavailable +1- BucknerHaven lofton CNP Unavailable [...] as of this encounter Care Teams Manager Telemetry Relationship Specialty [place] [address] [place] [address] 224352 PCP - General Family Practice 06/03/15 10/05/20 Kathy Glover MD [address] [place] [address] [phone] PCP - Assigned PCP 07/25/15 11/19/[address] [address] PCP - General 10/06/20 11/20/21 Luh Acharya PA-C [address] [place] [address] 42746 PCP - General Family Medicine 11/21/21 01/02/23 Toma Arguello NP [address] [address] Nurse Practitioner Nurse Practitioner Psych/Mental Health 04/11/17 Kathy Glover MD [address] [place] [address] 42619 Assigned PCP 07/25/15 12/20/19 Laura Us MD [address] [place] [address] 18421 Gastroenterology 12/20/18 Luh Acharya PA-C [address] [place] [address] 62753 Assigned PCP 12/21/19 01/17/20 Kathy Glover MD [address] [place] [address] 89275 Assigned PCP 01/18/20 06/19/20 Luh Acharya PA-C [address] [place] [address] 33530 Assigned PCP 06/20/20 03/31/21 Edward Marlow MD [address] [place] [address] Assigned Surgical Provider 07/09/20 07/31/20 Jas Bojorquez DO [address] [place] [address] 27664 Assigned PCP 04/01/21 05/21/21 Haven Buckner, BAIT MAN [address] [place] [address] 27884 Assigned PCP 05/22/21 11/26/21 Jenise España MD Assigned Heart and Vascular Provider 07/24/21 11/17/22 Tierra Cancino PA-C [address] [place] [address] Physician Plate Put In Worker Urology 11/17/21 Luh Acharya PA-C [address] [place] [address]66 Assigned PCP 11/27/21 12/31/21 Tierra Cancino PA-C [address] [place] [address] Assigned Surgical Provider 12/11/21 06/08/23 Haven Buckner, BAIT MAN [address] [place] [address] Assigned PCP 01/01/22 12/22/22 Luh Acharya PA-C [address] [place] [address] Assigned PCP 12/23/22 05/18/23 Haven Buckner, BAIT MAN [address] [place] [address] 16191 Assigned PCP 05/19/23 documented as of this encounter
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
--- NOTE | 2024-04-10 08:45 | CRLHL7_ITS ---
For Patients: As a result of the Century Cures Act, medical imaging exams and procedure reports are released immediately into your electronic medical record. You may view this report before your referring provider. If you have questions, please contact your health care provider. BILATERAL SCREENING MAMMOGRAM WITH COMPUTER-AIDED DETECTION AND TOMOSYNTHESIS TECHNIQUE: CC and MLO views were obtained. These mammographic images have been obtained using full-field digital technique. These mammographic images were interpreted with the benefit of computer-aided detection. Breast tomosynthesis was used in this interpretation. COMPARISON FILM: 03/29/23, 10/13/21, 09/27/20. FINDINGS: The breasts are heterogeneously dense, which may obscure small masses. IMPRESSION: There is no radiographic evidence for malignancy. ASSESSMENT: BI-RADS Category 2: Benign RECOMMENDATION: Routine screening mammogram in 1 year. A lay language report of this examination will be provided to the patient. KIRK ISRAEL M.D. Diagnostic Radiologist [email or web address] Transcribed: 2:[address]/Dictated by: Kirk Israel MD @ 04/10/2024 9:31:00 AM (Electronically Signed)
== END 2024-04-10 08:14 | disposition home or self-care (01) ==
LOC: MAMMO 08:13
PROVIDERS: PCP Family Medicine; Visit Provider Family Medicine
DX: Z12.31 Encounter for screening mammogram for malignant neoplasm of breast (principal); R92.2 Inconclusive mammogram
CPT/HCPCS: 77063; 77067

== ENCOUNTER 2024-04-20 10:04 | Outpatient (CLI) | payer BC, SELFPAY | END 2024-04-20 10:05 | disposition home or self-care (01) | LOC: NFLDREF 04-21 13:00 | PROVIDERS: PCP Family Medicine; Referring Provider Family Medicine; Visit Provider Family Medicine | DX: R30.0 Dysuria (principal); N15.9 Renal tubulo-interstitial disease, unspecified; N39.0 Urinary tract infection, site not specified; N12 Tubulo-interstitial nephritis, not specified as acute or chronic | CPT/HCPCS: 87086; 87186 ==

== ENCOUNTER 2024-05-01 06:06 | Outpatient (CLI) | payer BC, SELFPAY ==
--- OUTSIDE RECORDS SUMMARY | 2024-05-01 06:10 | XMS_ITS | Referral Summary ---
Author Organization [facility] Address [address] [place] [address] Care Team Providers Care Edger Technician Name Role Phone Elsewhere, Pcp Primary Care Provider Unavailabl e Source Comments Patient records contain information from all sites at [facility]. For routine questions regarding patient records, call [phone] during business hours, M-F 8:00 AM - 5:00 PM Central Time. Record requests for emergency care only can be directed to [phone] at any time.[facility] Allergies Active Allergy Reactions Criticality Noted Date [...] Comments Blood Pressure 117/79 08/01/2022 2:07 PM SLEEVE TAILOR Pulse 101 08/01/2022 2:07 PM SLEEVE TAILOR Temperature 36.8 ??C (98.2 ??F) 07/10/2022 4:00 AM CD T Respiratory Rate 18 07/10/2022 4:00 AM CDT Oxygen Saturation 90% 07/10/2022 7:00 AM CDT Inhaled Oxygen Concentration - - Weight 96.1 kg (211 lb 13.8 oz) 08/01/2022 2:07 PM SLEEVE TAILOR Height 166.5 cm (5' 5.55) 08/01/2022 2:07 PM CS T Body Mass Index 34.67 08/01/2022 2:07 PM SLEEVE TAILOR Plan of Treatment Not on file Procedures [...] CDT Jorge Browne D.O. LAB BLOOD ADD-ON [facility] [address] [place] [address], [facility] NPRG [facility] [address] [place] [address] * BI Breast Screening Bilateral (01/21/2015 8:30 [...] Recently Relevant to Health Maintenance Care Teams Edger Technician Relationship Specialty Start Date End Date Elsewhere, Pcp PCP - General Internal Medicine 07/10/22
--- OUTSIDE RECORDS SUMMARY | 2024-05-01 06:10 | XMS_ITS ---
Author Organization [facility] Address [address] [place] [address] Care Team Providers Care Racing Secretary Name Role Phone Unavailable Unavailable Unavailable Surgery Details Not on file Complications Check Surgery Details section. Procedure Estimated Blood Loss Check Surgery Details section. Procedure Findings Check Surgery Details section. Procedure Specimens Taken Check Surgery Details section.
--- OUTSIDE RECORDS SUMMARY | 2024-05-01 06:10 | XMS_ITS | Clinical Summary ---
Author Organization [facility] Address [address] [place] [address] Care Team Providers Care Director Of Graduate Medical Education Name Role Phone Elsewhere, Pcp Primary Care Provider Unavailabl e Source Comments Patient records contain information from all sites at [facility]. For routine questions regarding patient records, call [phone] during business hours, M-F 8:00 AM - 5:00 PM Central Time. Record requests for emergency care only can be directed to [phone] at any time.[facility] Allergies Active Allergy Reactions Criticality Noted Date [...] Comments Blood Pressure 117/79 08/01/2022 2:07 PM CHIEF ACCOUNTING OFFICER Pulse 101 08/01/2022 2:07 PM CHIEF ACCOUNTING OFFICER Temperature 36.8 ??C (98.2 ??F) 07/10/2022 4:00 AM CD T Respiratory Rate 18 07/10/2022 4:00 AM CDT Oxygen Saturation 90% 07/10/2022 7:00 AM CDT Inhaled Oxygen Concentration - - Weight 96.1 kg (211 lb 13.8 oz) 08/01/2022 2:07 PM CHIEF ACCOUNTING OFFICER Height 166.5 cm (5' 5.55) 08/01/2022 2:07 PM CS T Body Mass Index 34.67 08/01/2022 2:07 PM CHIEF ACCOUNTING OFFICER Plan of Treatment Health Maintenance Due Date [...] CDT Jorge Browne D.O. LAB BLOOD ADD-ON [facility] [address] [place] [address], [facility] NPRG [facility] [address] [place] [address] * BI Breast Screening Bilateral (01/21/2015 8:30 [...] Recently Relevant to Health Maintenance Care Teams Director Of Graduate Medical Education Relationship Specialty Start Date End Date Elsewhere, Pcp PCP - General Internal Medicine 07/10/22
--- OUTSIDE RECORDS SUMMARY | 2024-05-01 06:10 | XMS_ITS | Clinical Summary ---
Author Organization [facility] Address [place], [place] [address] Care Team Providers Care Medical Collector Name Role Phone Kathy Glover MD Primary Care Provider [phone] Allergies Active Allergy Reactions Criticality Noted Date [...] MAX 3 PER DAY 0 08/15/2018 Active Multivits,Ca,Needle Polisher als-Iron-FA (THERA M PLUS, FERROUS FUMARAT,) 9 mg iron-400 mcg tablet Take 1 tablet by mouth. Active omega 7-hwk-sew-fish oil (FISH OIL) 300-1,000 mg cpDR Take 1,000 mg by mouth. Active AFLURIA QUAD 0401-5996, PF, 60 mcg/0.5 mL IM syringe ADM [...] this topic Medical Devices Implanted Type Area Combination Welder Device Identifier Shelf Expiration Date Model / Serial / Lot Bone Matrix Md Infuse Bmp - [id number] Implanted:Qty: 1 on 07/24/2017 by Danish Sosa MD at [facility] N/A: Spine Medtronic Spine/Ortho 11/14/2018 [id number]# / / [id number] Bone 15cc Allosource Crushed Canclls - [id number] Implanted:Qty: 1 on 07/24/2017 by Danish Sosa MD at [facility] N/A: Spine Allosource 11/21/2020 [id number]# / / [id number] Bone Matrix 5cc Progenix Plus Putty Dbm - [id number] Implanted:Qty: 1 on 07/24/2017 by Danish Sosa MD at [facility] N/A: Spine Medtronic Spine/Ortho 12/27/2018 [id number]# / / [id number] Plate Lmbr [place]-L Stand Alone Lock - [id number] Implanted:Qty: 1 on 07/24/2017 by Danish Sosa MD at [facility] N/A: Spine Jeromy Spine [id number] 00# / / Screw Lmbr 6x25mm Ancr-L Standalone - [id number] Implanted:Qty: 3 on 07/24/2017 by Danish Sosa MD at [facility] N/A: Spine Jeromy Spine [id number] 25# / / Spacer Lmbr [id number] 12deg Avs-L Stand Alone - [id number] Implanted:Qty: 1 on 07/24/2017 by Danish Sosa MD at [facility] N/A: Spine Jeromy Spine [id number] 62# / / Explanted Type Area Combination Welder Device Identifier Shelf Expiration Date Model / Serial / Lot Hardware Removal Explanted:Qty: 1 on 07/24/2017 by Danish Sosa MD at [facility] N/A: Spine Description:One Piece Spinal Hardware Removed Procedures Procedure Name Priority Date/Time Associated Diagnosis Comments HPV THIN PREP Routine 11/22/2023 8:06 AM LABOR COMMISSIONER from Last 3 Months or Most Recently Relevant to Health Maintenance Results * HPV HIGH RISK (11/22/2023 8:06 AM LABOR COMMISSIONER) TYPE 16 Negative Negative 11/26/2023 5:04 PM CDT [facility] TRAL LABORATORY TYPE 18 Negative Negative 11/26/2023 5:04 PM CDT [facility] TRAL LABORATORY OTHER HIGH RISK TYPES Negative Negative 11/26/2023 5:04 PM CDT [facility] TRA LABORATORY Other (Cervical/Vagina l) 11/22/2023 8:06 AM LABOR COMMISSIONER 11/23/2023 8:22 AM LABOR COMMISSIONER Narrative [facility] - 11/26/2023 5:04 PM CDT HPV types 16, 18, 31, 33, 35, 39, 45, 51, 52, 56, 58, 59, 66 and 68 DNA were undetectable or below the pre-set threshold. Methodology: Duane Fatoumata 4800 HPV Test Lela Giraldo MD MICROBIOLOGY [facility] [address] [place] [address], from Last 3 Months or Most Recently Relevant to Health Maintenance Advance Directives * Full Code (Latest Code Status on File) Date Activated Date Inactivated Comments 09/27/2018 3:08 PM 09/27/2018 5:47 PM Care Teams Medical Collector Relationship Specialty Start Date End Date Kathy Glover MD [address] [place] [address] PCP - General Family Practice 09/25/18
--- OUTSIDE RECORDS SUMMARY | 2024-05-01 06:10 | XMS_ITS | Clinical Summary ---
Author Organization [facility] Address [address] [place] [address] Phone Care Team Providers Care Director Of Religious Life Name Role Phone Kathy Glover MD Primary [...] 11/23/2017 Active ergocalciferol (VITAMIN D2) 1.25 MG (65411 UT) capsule Take 1 tab weekly 0 [...] Comments Blood Pressure 114/84 11/23/2017 12:01 AM PRICING STRATEGIST Si tting, Left Pulse 80 11/23/2017 12:01 AM PRICING STRATEGIST Brac hial Temperature 37 ??C (98.6 ??F) 11/23/2017 12:01 AM PRICING STRATEGIST Respiratory Rate - - Oxygen Saturation - - Inhaled Oxygen Concentration - - Weight 79.4 kg (175 lb) 11/23/2017 12:01 AM PRICING STRATEGIST Height 167.6 cm (5' 6) 11/23/2017 12:01 AM PRICING STRATEGIST Body Mass Index 28.25 11/23/2017 12:01 AM PRICING STRATEGIST Plan of Treatment Not on file Care Teams Director Of Religious Life Relationship Specialty Start Date End Date Kathy Glover MD [address] [place] [address] PCP - General 05/11/21
--- OUTSIDE RECORDS SUMMARY | 2024-05-01 06:10 | XMS_ITS | Clinical Summary ---
Author Organization [place] Address [address] [facility] [place] [address] Care Team Providers Care Loan Workout Officer Name Role Phone Saundra Toma Dias NP Unavailable [phone] Laura Us MD Unavailable Tierra Cancino PA-C Unavailable Haven Buckner REAR LOAD TRUCK DRIVER Unavailable [phone] Allergies Active Allergy Reactions Criticality Noted Date [...] 180 tablet 3 11/15/2021 Active nystatin (MYCOSTATIN) [id number] UNIT/GM external creamIndications:I ntertriginous candidiasis Apply topically [...] and replacement with titanium plate 07/24/2017 at [place] 07/11/2017 Class 1 obesity with serious comorbidity [...] her. She's working with her neurologist at [facility] and [place].for postconcussion therapy and evaluation. Did an EEG [...] .- discontinued by the chronic pain clinic -[facility] 04/2017 Maximum quantity per month: #30 Clinic visit frequency required: Q 6 months Controlled substance agreement on file: Yes Date(s): 01/05/2017 Pain Clinic evaluation in the past: No DIRE Total Score(s): 06/03/2015 Total Score 20 Last [facility] website verification: done on 01/05/2017 [email or web address] Intractable migraine without aura and without status migrainosus- [facility] - every 4-6 weeks 06/03/2015 Chronic bilateral low back p ain with right-sided sciatica-- resolved s/p spine surgery with Dr. Sosa 07/24/2017 06/03/2015 Overview: Not going to [facility] at all for her chronic pain [...] c low back pain - managed by [facility] 06/03/2015 Skin cancer, basal [...] FREE T4 REFLEX Routine 11/17/2021 7:16 AM NEEDLE LOOM TENDER Other fatigue ALBUMIN RANDOM URINE QUANTITATIVE Routine 11/17/2021 7:16 AM NEEDLE LOOM TENDER Essential hypertension LIPID REFLEX TO DIRECT LDL PANEL Routine 11/17/2021 7:16 AM NEEDLE LOOM TENDER Hyperlipidemia LDL goal <130 COMPREHENSIVE METABOLIC PANEL Routine 11/17/2021 7:16 AM NEEDLE LOOM TENDER Hyperlipidemia LDL goal <130 Essential hypertension Essential hypertension with goal blood pressure less than 140/90 MA SCREENING BILATERAL W/ SUNNY Routine 10/13/2021 3:39 PM NEEDLE LOOM TENDER Visit for screening mammogram CBC WITH PLATELETS AND DIFFERENTIAL STAT 06/06/2021 1:10 PM CDT Tachycardia SOB (shortness of breath) CBC WITH PLATELETS & DIFFERENTIAL STAT 06/06/2021 1:10 PM CDT Tachycardia SOB (shortness of breath) HEPATITIS C SCREEN REFLEX TO HCV RNA QUANT AND GENOTYPE Routine 09/23/2020 9:03 AM NEEDLE LOOM TENDER Need for hepatitis C screening test HPV HIGH RISK TYPES DNA CERVICAL Routine 09/23/2020 8:44 AM NEEDLE LOOM TENDER Screening for malignant neoplasm of cervix PAP IMAGED THIN LAYER SCREEN Routine 09/23/2020 8:34 AM NEEDLE LOOM TENDER Screening for malignant neoplasm of cervix COLONOSCOPY Routine 09/29/2019 8:14 AM NEEDLE LOOM TENDER PHQ-9 DEPRESSION SCREENING ORDER Routine 07/23/2019 URINE [...] Maintenance Results * (ABNORMAL) UA without Microscopic [[id number]] (12/02/2021 3:23 PM CDT) Color Urine Yellow [...] 3:57 PM CDT [facility] Specific [place] Urine 1.020 1.003 - 1.035 12/02/2021 3:57 [...] URINE O RDERABLES [facility] [address] [facility] [phone] * TSH with free T4 reflex (11/17/2021 7:16 AM NEEDLE LOOM TENDER) TSH 0.69 0.40 - 4.00 mU/L 11/18/2021 4:49 PM NEEDLE LOOM TENDER [facility] Blood STRUCTURE OF RIGHT UPPER LIMB / Unknown Venipuncture / Unknown 11/17/2021 7:16 AM NEEDLE LOOM TENDER 11/17/2021 7:16 AM NEEDLE LOOM TENDER Chance Bundy PA-C LAB - BLOOD ORDE JENNIFER [facility] [place] [facility] [address] [facility], [address] [place] [address], [facility] [phone] * Albumin Random Urine Quantitative with Creat Ratio (11/17/2021 7:16 AM NEEDLE LOOM TENDER) Creatinine Urine mg/dL 70 mg/dL 11/17/2021 4:27 PM NEEDLE LOOM TENDER [facility] Albumin Urine mg/L <5 mg/L 11/17/2021 4:27 PM NEEDLE LOOM TENDER [facility] Albumin Urine mg/g Cr 11/17/2021 4:27 PM NEEDLE LOOM TENDER [facility] Comment:Unable to calculate: ??Urine creatinine or albumin value below detectable level Urine MID-STREAM URINE SPECIMEN / Unknown Non-blood Collection / Unknown 11/17/2021 7:16 AM NEEDLE LOOM TENDER 11/17/2021 7:16 AM NEEDLE LOOM TENDER Chance Bundy PA-C LAB - URINE ORDE RABAMANDA [facility] [address] [place] [address] Lab (no room number, 1st floor of clinic) [place] [address], [facility] [phone] * (ABNORMAL) Lipid panel reflex to direct LDL Fasting (11/17/2021 7:16 AM NEEDLE LOOM TENDER) Cholesterol 152 <200 mg/dL 11/18/2021 4:49 PM NEEDLE LOOM TENDER [facility] Triglycerides 308(H) <150 mg/dL 11/18/2021 4:49 PM NEEDLE LOOM TENDER [facility] Direct Measure HDL 36(L) >=50 mg/dL 11/18/2021 4:49 PM NEEDLE LOOM TENDER [facility] LDL Cholesterol Calculated 54 <=100 mg/dL 11/18/2021 4:49 PM NEEDLE LOOM TENDER [facility] Non HDL Cholesterol 116 <130 mg/dL 11/18/2021 4:49 PM NEEDLE LOOM TENDER [facility] Patient Fasting > 8hrs? Yes 11/18/2021 4:49 PM NEEDLE LOOM TENDER [facility] Blood STRUCTURE OF RIGHT UPPER LIMB / Unknown Venipuncture / Unknown 11/17/2021 7:16 AM NEEDLE LOOM TENDER 11/17/2021 7:16 AM NEEDLE LOOM TENDER Narrative [facility] - 11/18/2021 4:49 PM NEEDLE LOOM TENDER Cholesterol Desirable: ??<200 mg/dL Triglycerides Normal: ??Less [...] LAB - BLOOD ANNA RODRIGUEZ [facility] [place] [facility] [address] [facility] [address], [address] [place] [address], [place] [phone] [facility] [address] Lab (no room number, 1st floor of clinic) [place] [address], [place] [phone] * (ABNORMAL) Comprehensive metabolic panel (BMP + Alb, Alk Phos, ALT, AST, Total. Bili, TP) (11/17/2021 7:16 AM NEEDLE LOOM TENDER) Sodium 138 133 - 144 mmol/L 11/18/2021 4:49 PM NEEDLE LOOM TENDER [facility] Potassium 4.7 3.4 - 5.3 mmol/L 11/18/2021 4:49 PM NEEDLE LOOM TENDER [facility] Chloride 103 94 - 109 mmol/L 11/18/2021 4:49 PM NEEDLE LOOM TENDER [facility] Carbon Dioxide (CO2) 27 20 - 32 mmol/L 11/18/2021 4:49 PM NEEDLE LOOM TENDER [facility] Anion Gap 8 3 - 14 mmol/L 11/18/2021 4:49 PM NEEDLE LOOM TENDER [facility] Urea Nitrogen 16 7 - 30 mg/dL 11/18/2021 4:49 PM NEEDLE LOOM TENDER [facility] Creatinine 1.24(H) 0.52 - 1.04 mg/dL 11/18/2021 4:49 PM NEEDLE LOOM TENDER [facility] Calcium 9.1 8.5 - 10.1 mg/dL 11/18/2021 4:49 PM NEEDLE LOOM TENDER [facility] Glucose 78 70 - 99 mg/dL 11/18/2021 4:49 PM NEEDLE LOOM TENDER [facility] Alkaline Phosphatase 100 40 - 150 U/L 11/18/2021 4:49 PM NEEDLE LOOM TENDER [facility] AST 21 0 - 45 U/L 11/18/2021 4:49 PM NEEDLE LOOM TENDER [facility] ALT 26 0 - 50 U/L 11/18/2021 4:49 PM NEEDLE LOOM TENDER [facility] Protein Total 7.4 6.8 - 8.8 g/dL 11/18/2021 4:49 PM NEEDLE LOOM TENDER [facility] Albumin 3.6 3.4 - 5.0 g/dL 11/18/2021 4:49 PM NEEDLE LOOM TENDER [facility] Bilirubin Total 0.4 0.2 - 1.3 mg/dL 11/18/2021 4:49 PM NEEDLE LOOM TENDER [facility] GFR Estimate 52(L) >60 mL/min/1.7 3m2 11/18/2021 4:49 PM NEEDLE LOOM TENDER [facility] Comment:Effective August 182020 eGFRcr in adults is calculated using the 2020 CKD-EPI creatinine equation which includes age and gender (Gloria et al., NEJ, DOI: 10.1056/SOFYju3991272) Blood STRUCTURE OF RIGHT UPPER LIMB / Unknown Venipuncture / Unknown 11/17/2021 7:16 AM NEEDLE LOOM TENDER 11/17/2021 7:16 AM NEEDLE LOOM TENDER Chance Bundy PA-C LAB - BLOOD ANNA RODRIGUEZ [facility] [place] [facility] [address] [facility], [address] [phone] [phone] * MA Screen Bilateral w/Sunny (10/13/2021 3:39 PM NEEDLE LOOM TENDER) Anatomical Region Laterality Modality Breast Bilateral Mammography Narrative 10/14/2021 8:52 AM NEEDLE LOOM TENDER BILATERAL FULL FIELD DIGITAL SCREENING MAMMOGRAM WITH [...] LAB - BLOOD ANNA RODRIGUEZ RH LABORATORY [facility] [address] Lab (1st floor, no room number) [place] [address], [facility] [phone] * Hepatitis C Screen Reflex to HCV RNA Quant and Genotype (09/23/2020 9:03 AM NEEDLE LOOM TENDER) Hepatitis C Antibody Nonreactive NR^Nonre active 09/23/2020 4:55 PM NEEDLE LOOM TENDER [facility] Comment: Assay performance characteristics have not been established for newborns, infants, and children Blood specimen (specimen) 09/23/2020 9:03 AM NEEDLE LOOM TENDER 09/23/2020 9:04 AM NEEDLE LOOM TENDER Chance Bundy PA-C LAB - BLOOD ANNA RODRIGUEZ [facility] [address] [place] [address] * HPV High Risk Types DNA Cervical (09/23/2020 8:44 AM NEEDLE LOOM TENDER) HPV Source [facility] 09/23/2020 8:34 AM NEEDLE LOOM TENDER [facility] HPV 16 DNA Negative NEG^Nega tive 09/29/2020 3:34 PM NEEDLE LOOM TENDER [facility] HPV 18 DNA Negative NEG^Nega tive 09/29/2020 3:34 PM NEEDLE LOOM TENDER [facility] Other HR HPV Negative NEG^Nega tive 09/29/2020 3:34 PM NEEDLE LOOM TENDER [facility] Final Diagnosis This patient's sample is negative for HPV DNA. 09/29/2020 3:34 PM NEEDLE LOOM TENDER [facility] Comment: This test was developed and its performance characteristics determined by the [facility], Molecular Diagnostics Laboratory. It has [...] Specimen Description Cervical Cells 09/23/2020 8:34 AM NEEDLE LOOM TENDER [facility] Cervical Cells CERVIX UTERI STRUCTURE / Unknown 09/23/2020 8:44 AM NEEDLE LOOM TENDER 09/23/2020 9:03 AM NEEDLE LOOM TENDER Chance Bundy PA-C LAB - BLOOD ANNA RODRIGUEZ [address] [address] * Pap imaged thin layer screen with HPV - recommended age 30 - 65 years (select HPV order below) (09/23/2020 8:34 AM NEEDLE LOOM TENDER) PAP ELISEO Pastor Report Patient Name: YENNI DYSON MR#: [id number] Specimen #: [id number] Collected: 09/23/2020 Received: 09/24/2020 [...] adenocarcinomas or other cancers. COLLECTION SITE: Client: ??[facility] Location: [facility]) The technical component of this testing was completed at the [facility], with the professional component performed at the [facility], [address] [place] [phone] ([phone]) COPATH Cytologic material (specimen) 09/23/2020 8:34 AM NEEDLE LOOM TENDER 09/24/2020 11:15 AM NEEDLE LOOM TENDER Chance Bundy PA-C LAB - OPTIME CLI NICAL SPECIMEN COPATH * COLONOSCOPY (09/29/2019 8:14 AM NEEDLE LOOM TENDER) COLONOSCOPY [facility] Patient Name: [...] # [id number], ?[place] # [id number], SN # [id number] was introduced through ?the anus and advanced [...] Note Initiated On: 09/29/2019 8:14 AM MRN: ?[id number] Procedure Date: ? 09/29/2019 8:14:18 AM Scope Withdrawal Time: 0 hours 13 minutes 33 seconds Total Procedure Duration: 0 hours 19 minutes 46 seconds Estimated Blood Loss: ? none Scope In: 9:00:41 AM Scope Out: 9:20:27 AM RADIOLOGY RESULTS 09/29/2019 8:14 AM NEEDLE LOOM TENDER Heber Glover MD PROCEDURES RADIOLOGY RESULTS * PHQ-9 DEPRESSION SCREENING ORDER (07/23/2019) Pathologist [facility] PHQ9 SCORE 5 Narrative Caro Marino - 07/23/2019 [facility] PAIN [facility] VISIT NOTE Provider Outside OTHER * (ABNORMAL) Drug Abuse Screen Panel 13, Urine (Pain Care Package) (07/11/2018 2:01 PM CDT) Pathologist [facility] Cannabinoids (11-fht-1-carboxy- 9-THC) Not Detected NDET^Not Detected ng/mL 07/11/2018 5:33 PM CDT [facility] Comment:Cutoff for a negativ e cannabinoid is 50 ng/mL or less. Phencyclidine (Phencyclidine) Not Detected NDET^Not Detected ng/mL 07/11/2018 5:33 PM CDT [facility] Comment:Cutoff for a negativ e PCP is 25 ng/mL or less. Cocaine (Benzoylecgonine) Not Detected NDET^Not Detected ng/mL 07/11/2018 5:33 PM CDT [facility] Comment:Cutoff for a negativ e cocaine is 150 ng/ml or less. Methamphetamine (d-Methamphetamine ) Not Detected NDET^Not Detected ng/mL 07/11/2018 5:33 PM CDT [facility] Comment:Cutoff for a negativ e methamphetamine is 500 ng/ml or less. Opiates (Morphine) Detected, Abnormal Result(A) NDET^Not Detected ng/mL 07/11/2018 5:33 PM CDT [facility] Comment: Cutoff for a positive opiate is greater than 100 ng/ml. This is an unconfirmed screening result to be used for medical purposes only. Order [id number] for confirmation or individual confirmation tests to [facility]. Amphetamine (d-Amphetamine) Not Detected NDET^Not Detected ng/mL 07/11/2018 5:33 PM CDT [facility] Comment:Cutoff for a negativ e amphetamine is 500 ng/mL or less. Benzodiazepines (Nordiazepam) Not Detected NDET^Not Detected ng/mL 07/11/2018 5:33 PM CDT [facility] Comment:Cutoff for a negativ e benzodiazepine is 150 ng/ml or less. Tricyclic Antidepressants (Desipramine) Detected, Abnormal Result(A) NDET^Not Detected ng/mL 07/11/2018 5:33 PM CDT [facility] Comment: Cutoff for a positive tricyclic antidepressant is greater than 300 ng/ml. This is an unconfirmed screening result to be used for medical purposes only. Order [id number] for confirmation or individual confirmation tests to [facility]. Methadone (Methadone) Not Detected NDET^Not Detected ng/mL 07/11/2018 5:33 PM CDT [facility] Comment:Cutoff for a negativ e methadone is 200 ng/ml or less. Barbiturates (Butalbital) Not Detected NDET^Not Detected ng/mL 07/11/2018 5:33 PM CDT [facility] Comment:Cutoff for a negativ e barbituate is 200 ng/ml or less. Oxycodone (Oxycodone) Not Detected NDET^Not Detected ng/mL 07/11/2018 5:33 PM CDT [facility] Comment:Cutoff for a negativ e Oxycodone is 100 ng/mL or less. Propoxyphene (Norpropoxyphene) Not Detected NDET^Not Detected ng/mL 07/11/2018 5:33 PM CDT [facility] Comment:Cutoff for a negativ e propoxyphene is 300 ng/ml or less Buprenorphine (Buprenorphine) Not Detected NDET^Not Detected ng/mL 07/11/2018 5:33 PM CDT [facility] Comment:Cutoff for a negativ e buprenorphine is 10 ng/ml or less Urine specimen (specimen) 07/11/2018 2:01 PM CDT 07/11/2018 2:02 PM CDT Heber Glover MD LAB - URINE ORD ERABLES [facility] [address] [place] [address] [place] [address] * HIV Screening (07/11/2018 10:09 AM CDT) HIV Antigen Antibody Combo Nonreactive NR^Nonrea ctive 07/12/2018 9:42 AM CDT [facility] Comment:HIV-1 p24 Ag & HIV-1 /HIV-2 Ab Not Detected Blood specimen (specimen) 07/11/2018 10:09 AM CDT 07/11/2018 10:10 AM CDT Heber Glover MD LAB - BLOOD ORD ERABLES Performing Organization Address City/[facility] Co de Phone Number [facility] [address] [place], [place] [id number] [place] [address] * CT Chest/Abdomen/Pelvis w Contrast (04/16/2016 3:09 [...] Advance Directives For more information, please contact: [phone] * Full Code (Latest Code Status on File) Date Activated Date Inactivated Comments 06/27/2017 4:33 PM 06/28/2017 4:51 PM * Full Code Date Activated Date Inactivated Comments 07/07/2016 2:47 PM 06/27/2017 4:33 PM * Full Code Date Activated Date Inactivated Comments 07/06/2016 5:24 PM 07/07/2016 2:47 PM Care Teams Loan Workout Officer Relationship Specialty Start Date End Date Toma Arguello NP [facility] [address] [place] [address] Nurse Practitioner Nurse Practitioner Psych/Mental Health 04/11/17 Laura Us MD [facility] [address] [place] [address] Gastroenterology 12/20/18 Tierra Cancino PA-C [address] [place] [address] Physician Senior Scheduler Urology 11/17/21 Haven Buckner, REAR LOAD TRUCK DRIVER [address] [place] [address] [phone] Assigned PCP 05/19/23
--- OUTSIDE RECORDS SUMMARY | 2024-05-01 06:11 | XMS_ITS | Encounter Summary ---
Author Organization [place] Address [address] [facility] [place] [address] Care Team Providers Care Exterior Interior Specialist Name Role Phone Toma Arguello YESICA Unavailable [phone] Laura Us MD Unavailable Luh Acharya-C Unavailable [phone] [facility] Primary Care Provider Jas Bojorquez DO Unavailable [phone] Haven Buckner CNP Unavailable [phone] Jenise España MD Unavailable Unavailable Tierra Cancino PA-C Unavailable [phone] Luh Acharya-C Primary Care Provider + Luh Acharya-C Unavailable [phone] Tierra Cancino-C Unavailable [phone] Haven Buckner CNP Unavailable [phone] Luh Acharya-C Unavailable [phone] Haven Buckner CNP Unavailable Reason for Visit * Reason Onset Date Comments MyChart Communication 02/21/2021 Encounter Details Date Type Department Care Team (Late st Contact Info) Description 02/21/2021 MyC Medical Advice [address] [phone] Haven Buckner, APPRAISER IRRIGATION TAX [address] [place] [address] MyChart Communication Social History Tobacco Use Types [...] advise Thank you Manisha Patel RN, BSN [place] Triage documented in this encounter Plan of [...] Total Score: 1 07/27/20 20 2:05 PM PROPERTY CLERK documented as of this encounter Care Teams Exterior Interior Specialist Relationship Specialty Start Date End Date Clinic - [address] [address] PCP - General 10/06/20 11/20/21 Luh Acharya PA-C [address] [place] [address] PCP - General Family Medicine 11/21/21 01/02/23 Toma Arguello NP [address] [address] Nurse Practitioner Nurse Practitioner Psych/Mental Health 04/11/17 Laura Us MD [address] [address] Gastroenterology 12/20/18 Luh Acharya PA-C [address] [place] [address] Assigned PCP 06/20/20 03/31/21 Jas Bojorquez DO [address] [place] [phone] Assigned PCP 04/01/21 05/21/21 Haven Buckner, NICOLE [address] [place] [address] Assigned PCP 05/22/21 11/26/21 Jenise España MD Assigned Heart and Vascular Provider 07/24/21 11/17/22 Tierra Cancino PA-C [address] [place] [address] Physician Smooth Stucco Resurfacer Urology 11/17/21 Luh Acharya PA-C [address] [place] [address], [place] [address] Assigned PCP 11/27/21 12/31/21 Tierra Cancino PA-C [address] [place] [address] Assigned Surgical Provider 12/11/21 06/08/23 Haven Buckner, NICOLE [address] [place] [address] Assigned PCP 01/01/22 12/22/22 Luh Acharya PA-C [address] [place] [phone] Assigned PCP 12/23/22 05/18/23 Haven Buckner, NICOLE [address] [place] [phone] Assigned PCP 05/19/23 documented as of this encounter
--- OUTSIDE RECORDS SUMMARY | 2024-05-01 06:11 | XMS_ITS | Encounter Summary ---
Author Organization [place] Address [address] [place] [address] Care Team Providers Care Sales Assistant Entertainment And Media Name Role Phone Toma Arguello YESICA Unavailable [phone] Laura Us MD Unavailable Luh Acharya-C Unavailable [phone] [facility] Primary Care Provider [...] Encounter Details Date Type Department Care Team ([facility] st Contact Info) Description 02/01/2021 Refill [facility] [address] [place] [phone] Haven Buckner, GRADER PATROL [address] [place] [address] Medication Refill Social History Tobacco Use Types [...] List Complete: Yes Last Office Visit with [facility] primary care provider: 01/06/2021 Future Office visit: [...] CDAUT, No results found for: COMDAT, Cannabinoids (45-bup-5-tuvbgdg-5-SCP) Date Value Ref Range Status 07/11/2018 Not [...] be used for medical purposes only. Order [id number] for confirmation or individual confirmation tests to [facility]. Amphetamine (d-Amphetamine) Date Value Ref Range Status [...] be used for medical purposes only. Order [id number] for confirmation or individual confirmation tests to [facility]. Methadone (Methadone) Date Value Ref Range Status [...] be electronically transmitted to pharmacy by provider [email or web address] Routing refill request to provider for review/approval because: Drug not on the [facility] refill protocol Renay Barlow RN [facility] documented in this encounter Plan of [...] Total Score: 1 07/27/20 20 2:05 PM ELECTROLESS PLATER documented as of this encounter Care Teams Sales Assistant Entertainment And Media Relationship Specialty Start Date End Date Clinic - [address] [address] PCP - General 10/06/20 11/20/21 Luh Acharya PA-C [address] [place] [address] [phone] PCP - General Family Medicine 11/21/21 01/02/23 Toma Arguello NP [place] [address] [place] [address] Nurse Practitioner Nurse Practitioner Psych/Mental Health 04/11/17 Laura Us MD [address] [address] Gastroenterology 12/20/18 Luh Acharya, REFUGIO [address] [place] [address] [phone] Assigned PCP 06/20/20 03/31/21 Jas Bojorquez DO [address] [place] [address] [phone] Assigned PCP 04/01/21 05/21/21 Haven Buckner CNP [address] [place] [address] [phone] Assigned PCP 05/22/21 11/26/21 Jenise España MD Assigned Heart and Vascular Provider 07/24/21 11/17/22 Tierra Cancino PA-C [address] [place] [address] Physician Director Of Quality Urology 11/17/21 Luh Acharya PA-C [address] [place] [address] Assigned PCP 11/27/21 12/31/21 Tierra Cancino PA-C [address] [place] [address] Assigned Surgical Provider 12/11/21 06/08/23 Haven Buckner, GRADER PATROL [address] [place] [address] Assigned PCP 01/01/22 12/22/22 Luh Acharya PA-C [address] [place] [address], [place] [address] Assigned PCP 12/23/22 05/18/23 Haven Buckner, GRADER PATROL [address] [place] [address], [place] [address] Assigned PCP 05/19/23 documented as of this encounter
--- OUTSIDE RECORDS SUMMARY | 2024-05-01 06:11 | XMS_ITS | Encounter Summary ---
Author Organization [place] Address [address] [facility] [place] [address] Care Team Providers Care Accounts Payable Administrator Name Role Phone Toma Arguello YESICA Unavailable [phone] Laura Us MD Unavailable [facility] Primary Care Provider Haven Buckner CNP Unavailable [phone] Jenise España MD Unavailable Unavailable Tierra Cancino-C Unavailable [phone] Luh Acharya-C Primary Care Provider + Luh Acharya PA-C Unavailable +- [phone] Tierra Cancino-Melissa Unavailable [phone] Haven Buckner CNP Unavailable [phone] Luh Acharya PA-C Unavailable + [phone] Haven Buckner CNP Unavailable [phone] Reason for Visit * Reason Comments Medication Refill Encounter Details Date Type Department Care Team (Late st Contact Info) Description 08/30/[address] [phone] Haven Buckner, UM RN [address] [place], [place] [phone] Medication Refill Social History Tobacco Use Types [...] Manisha Patel RN - 09/01/2021 10:07 PM GOVERNMENT AFFAIRS FELLOW Due for an Office visit for further refills, only fill for 30 days Manisha Patel RN, BSN [facility] Triage RNMENT AFFAIRS FELLOW documented in this encounter Plan of Treatment [...] documented as of this encounter Care Teams Accounts Payable Administrator Relationship Specialty Start Date End Date Clinic - Home [address] [phone] PCP - General 10/06/20 11/20/21 Luh Acharya PA-C [address] [place] [address] [phone] PCP - General Family Medicine 11/21/21 01/02/23 Toma Arguello NP [address] [address] Nurse Practitioner Nurse Practitioner Psych/Mental Health 04/11/17 Laura Us MD [address] [address] Gastroenterology 12/20/18 Haven Buckner, UM RN [address] [place] [address]19 Assigned PCP 05/22/21 11/26/21 Jenise España MD Assigned Heart and Vascular Provider 07/24/21 11/17/22 Tierra Cancino PA-C [address] [place] [address] Physician Jet Aircraft Servicer Urology 11/17/21 Luh Acharya PA-C [address] [place] [address] Assigned PCP 11/27/21 12/31/21 Tierra Cancino PA-C [address] [place] [address] Assigned Surgical Provider 12/11/21 06/08/23 Haven Buckner, NICOLE [address] [place] [address] Assigned PCP 01/01/22 12/22/22 Luh Acharya PA-C [address] [place] [address] 888122 Assigned PCP 12/23/22 05/18/23 Haven Buckner, UM RN [address] [place] [address] [phone] Assigned PCP 05/19/23 documented as of this encounter
--- OUTSIDE RECORDS SUMMARY | 2024-05-01 06:11 | XMS_ITS | Encounter Summary ---
Author Organization [place] Address [address] [facility] [address] Care Team Providers Care Disk Grinder Name Role Phone Toma Arguello Arun ROBERT Unavailable [phone] Laura Us MD Unavailable Jenise España MD Unavailable Unavailable Tierra Cancino PA-C Unavailable Luh Acharya PA-C Primary Care Provider + Tierra Cancino PA-C Unavailable Haven Buckner CNP Unavailable [phone] Luh Acharya PA-C Unavailable [phone] Haven Buckner CNP Unavailable Reason for Visit * Reason Comments Medication Refill Encounter Details Date Type Department Care Team (Late st Contact Info) Description 09/07/[address] [phone] Luh Acharya PA-C [address] [place] [address] [phone] Medication Refill Social History Tobacco Use Types [...] one refill on file Ellen Lemon RN [facility] Triage ARY MONITOR documented in this encounter Plan of Treatment Not on file documented as of this encounter Visit Diagnoses Diagnosis Gastroesophageal reflux disease, unspecified whether esophagitis present documented in this encounter Additional Health Concerns Assessment Noted Time PHQ-9 Depression Total Score: 5 10/25/19 22 7:03 AM LIBRARY MONITOR documented as of this encounter Care Teams Disk Grinder Relationship Specialty Start Date End Date Luh Acharya PA-C [address] [place] [address] PCP - General Family Medicine 11/21/21 01/02/23 Toma Arguello NP [address] [address] Nurse Practitioner Nurse Practitioner Psych/Mental Health 04/11/17 Laura Us MD [place] [address] [place] [address] Gastroenterology 12/20/18 Jenise España MD Assigned Heart and Vascular Provider 07/24/21 11/17/22 Tierra Cancino PA-C [address] [place] [address] Physician Veneer Drier Urology 11/17/21 Tierra Cancino PA-C [address] [place] [address] Assigned Surgical Provider 12/11/21 06/08/23 Haven Buckner, CREDIT NEGOTIATOR [address] [place] [address] Assigned PCP 01/01/22 12/22/22 Luh Acharya PA-C [address] [place] [address] 28770 Assigned PCP 12/23/22 05/18/23 Haven Buckner, CREDIT NEGOTIATOR [address] [place] [address] Assigned PCP 05/19/23 documented as of this encounter
--- OUTSIDE RECORDS SUMMARY | 2024-05-01 06:11 | XMS_ITS | Encounter Summary ---
Author Organization [place] Address [address] [facility] [place] [address] Care Team Providers Care Cellophane Bag Machine Operator Name Role Phone Toma Arguello YESICA Unavailable [phone] Laura Us MD Unavailable [facility] Primary Care Provider Haven Buckner CNP Unavailable [phone] Jenise España MD Unavailable Unavailable Tierra Cancino-C Unavailable [phone] Luh Acharya-C Primary Care Provider + Luh Acharya PA-C Unavailable +[phone] Tierra Cancino-C Unavailable [phone] Haven Buckner CNP Unavailable [phone] Luh Acharya PA-C Unavailable + [phone] Haven Buckner CNP Unavailable [phone] Reason for Visit * Reason Comments Medication Refill Encounter Details Date Type Department Care Team (Late st Contact Info) Description 10/20/[address] [phone] Luh Acharya PA-C [address] [place], [place] [phone] Medication Refill Social History Tobacco Use Types [...] COVID-19? No / Unsure 10/13/2021 3:21 PM FRONT CLERK documented as of this encounter Miscellaneous Notes * Telephone Encounter - Ellen Retana RN - 10/21/2021 12:09 PM FRONT CLERK LDL Cholesterol Calculated Date Value Ref Range Status 09/23/2020 55 <100 mg/dL Final Comment: Desirable: <100 mg/dl Enedina refill of 30 days given Appointments in Next Year Nov 15, 2021 1:40 PM (Arrive by 1:20 PM) Adult Preventative Visit with Luh Acharya PA-C [facility] ([facility] ) [phone] Ellen Lemon RN [facility] Triage T CLERK documented in this encounter Plan of Treatment [...] documented as of this encounter Care Teams Cellophane Bag Machine Operator Relationship Specialty Start Date End Date Clinic - [facility] [address] [place] [address] PCP - General 10/06/20 11/20/21 Luh Acharya PA-C [address] [place] [address] PCP - General Family Medicine 11/21/21 01/02/23 Toma Arguello NP [place] [address] [place] [address] Nurse Practitioner Nurse Practitioner Psych/Mental Health 04/11/17 Laura Us MD [place] [address] [place], [place] [address] Gastroenterology 12/20/18 Haven Buckner, NICOLE [address] [place] [address] [phone] Assigned PCP 05/22/21 11/26/21 Jenise España MD Assigned Heart and Vascular Provider 07/24/21 11/17/22 Tierra Cancino PA-C [address] [place] [address] Physician Ammunition Supervisor Urology 11/17/21 Luh Acharya PA-C [address] [place] [address] Assigned PCP 11/27/21 12/31/21 Tierra Cancino PA-C [address] [place] [address] Assigned Surgical Provider 12/11/21 06/08/23 Haven Buckner, HERBICIDE SERVICE SALES REPRESENTATIVE [address] [place] [address] Assigned PCP 01/01/22 12/22/22 Luh Acharya PA-C [address] [place] [address] Assigned PCP 12/23/22 05/18/23 Haven Buckner, HERBICIDE SERVICE SALES REPRESENTATIVE [address] [place] [address] Assigned PCP 05/19/23 documented as of this encounter
--- OUTSIDE RECORDS SUMMARY | 2024-05-01 06:11 | XMS_ITS | Encounter Summary ---
Author Organization [place] Address [address] [facility] [place] [address] Care Team Providers Care Incinerator Operator Name Role Phone Toma Arguello Arun ROBERT Unavailable [phone] Laura Us MD Unavailable [facility] Primary Care Provider Jas Bojorquez DO Unavailable [phone] BRAKE LINING DRILLER Unavailable [phone] Jenise España MD Unavailable Unavailable Tierra Cancino PA-C Unavailable [phone] Luh Acharya-C Primary Care Provider + Luh Acharya-C Unavailable +[phone] Tierra Cancino PA-C Unavailable [phone] Haven Buckner CNP Unavailable [phone] Luh Acharya-C Unavailable +[phone] Haven Buckner CNP Unavailable Encounter Details Date Type Department Care Team (Late st Contact Info) Description 04/15/2021 MyC Medical Advice [address] [facility] [place] [phone] Luh Acharya PA-C [address] [place] [address] [phone] Social History Tobacco Use Types Packs/Day Years [...] sent Awaiting reply Manisha Patel RN, BSN [facility] [place] Triage documented in this encounter Plan of [...] documented as of this encounter Care Teams Incinerator Operator Relationship Specialty Start Date End Date Clinic - Home [facility] [address] [address] PCP - General 10/06/20 11/20/21 Luh Acharya PA-C [address] [place] [address] PCP - General Family Medicine 11/21/21 01/02/23 Toma Arguello FERTILIZER MIXER [place] [address] [place] [address] Nurse Practitioner Nurse Practitioner Psych/Mental Health 04/11/17 Laura Us MD [place] [address] [place], [place] 446[address] Gastroenterology 12/20/18 Jas Bojorquez DO [address] [place] [address] 238302 Assigned PCP 04/01/21 05/21/21 Haven Buckner, BRAKE LINING DRILLER [address] [place] [address] [phone] Assigned PCP 05/22/21 11/26/21 Jenise España MD Assigned Heart and Vascular Provider 07/24/21 11/17/22 Tierra Cancino PA-C [address] [place] [address] Physician Genetic Technologist Urology 11/17/21 Luh Acharya PA-C [address] [place] [address] Assigned PCP 11/27/21 12/31/21 Tierra Cancino PA-C [address] [place], [place] [address] Assigned Surgical Provider 12/11/21 06/08/23 Haven Buckner, NICOLE [address] [place] [address], [place] [address] Assigned PCP 01/01/22 12/22/22 Luh Acharya PA-C [address] [place] [address], [place] [address] Assigned PCP 12/23/22 05/18/23 Haven Buckner, NICOLE [address] [place] [address] Assigned PCP 05/19/23 documented as of this encounter
--- OUTSIDE RECORDS SUMMARY | 2024-05-01 06:11 | XMS_ITS | Encounter Summary ---
Author Organization [place] Address [address] [facility] [place] [address] Care Team Providers Care Trailer Park Manager Name Role Phone Toma Arguello YESICA Unavailable [phone] Laura Us MD Unavailable [facility] Primary Care Provider Haven Buckner WELCOME WAGON HOST/HOSTESS Unavailable [phone] Jenise España MD Unavailable Unavailable Tierra Cancino-C Unavailable [phone] Luh Acharya-C Primary Care Provider + Luh Acharya-C Unavailable +[phone] Tierra Cancino-C Unavailable [phone] Haven Buckner CNP Unavailable [phone] Luh Acharya PA-C Unavailable + [phone] Haven Buckner CNP Unavailable [phone] Encounter Details Date Type Department Care Team (Late st Contact Info) Description 10/23/2021 [facility] [address] [phone] Shivani Sparrow RN Social History [...] COVID-19? No / Unsure 10/13/2021 3:21 PM OPERATION MANAGER documented as of this encounter Plan of Treatment Not on file documented as of this encounter Visit Diagnoses Not on filedocumented in this encounter Additional Health Concerns Infection Onset Date Last Indicated Resolved Time Rule Out COVID-19 12/19/2021 12/19/2021 12/20/2021 1:02 PM CDT Assessment Noted Time PHQ-9 Depression Total Score: 5 10/25/19 22 7:03 AM OPERATION MANAGER documented as of this encounter Care Teams Trailer Park Manager Relationship Specialty Start Date End Date [facility] - [address] [phone] PCP - General 10/06/20 11/20/21 Luh Acharya PA-C [address] [place] [address] [phone] PCP - General Family Medicine 11/21/21 01/02/23 Toma Arguello NP [place] [address] [place] [address] Nurse Practitioner Nurse Practitioner Psych/Mental Health 04/11/17 Laura Us MD [address] [address] Gastroenterology 12/20/18 Haven Buckner, WELCOME WAGON HOST/HOSTESS [address] [place] [address] Assigned PCP 05/22/21 11/26/21 Jenise España MD Assigned Heart and Vascular Provider 07/24/21 11/17/22 Tierra Cancino PA-C [address] [place] [address] Physician Extension Division Director Urology 11/17/21 Luh Acharya PA-C [address] [place] [address] Assigned PCP 11/27/21 12/31/21 Tierra Cancino PA-C [address] [place] [address] Assigned Surgical Provider 12/11/21 06/08/23 Haven Buckenr, WELCOME WAGON HOST/HOSTESS [address] [place] [address] Assigned PCP 01/01/22 12/22/22 Luh Acharya PA-C [address] [place] [address] Assigned PCP 12/23/22 05/18/23 Haven Buckner, WELCOME WAGON HOST/HOSTESS [address] [place] [address] Assigned PCP 05/19/23 documented as of this encounter
--- OUTSIDE RECORDS SUMMARY | 2024-05-01 06:11 | XMS_ITS | Encounter Summary ---
Author Organization [place] Address [address] [facility] [place] [address] Care Team Providers Care Berry Grower Name Role Phone Toma Arguello Arun ROBERT Unavailable [phone] Laura Us MD Unavailable [facility] Primary Care Provider Jas Bojorquez DO Unavailable [phone] CNP Unavailable [phone] Jenise España MD Unavailable Unavailable Tierra Cancino PA-C Unavailable [phone] Luh Acharya-C Primary Care Provider + Luh Acharya PA-C Unavailable [phone] Tierra Cancino PA-C Unavailable [phone] Haven Buckner CNP Unavailable Luh Acharya-C Unavailable [phone] Haven Buckner CNP Unavailable Reason for Visit * Reason Onset Date Comments Metailt Communication 04/14/2021 Encounter Details Date Type Department Care Team (Latest Contact Info) Description 04/14/2021 MyC Medical Advice [address] [phone] Judd Waller Communication Social History Tobacco Use [...] documented as of this encounter Care Teams Berry Grower Relationship Specialty Start Date End Date [facility] - [address] [phone] PCP - General 10/06/20 11/20/21 Luh Acharya PA-C [address] [place] [address] [phone] PCP - General Family Medicine 11/21/21 01/02/23 Toma Arguello NP [address] 590227 Nurse Practitioner Nurse Practitioner Psych/Mental Health 04/11/17 Laura Us MD [address] [address] Gastroenterology 12/20/18 Jas Bojorquez DO [address] [place] [address] Assigned PCP 04/01/21 05/21/21 Haven Buckner, TELETYPE OPERATOR [address] [place] [address]30 Assigned PCP 05/22/21 11/26/21 Jenise España MD Assigned Heart and Vascular Provider 07/24/21 11/17/22 Tierra Cancino PA-C [address] [place] [address] Physician Pasteurizer Urology 11/17/21 Luh Acharya PA-C [address] [place] [address] Assigned PCP 11/27/21 12/31/21 Tierra Cancino PA-C [address] [place] [address] Assigned Surgical Provider 12/11/21 06/08/23 Haven Buckner, TELETYPE OPERATOR [address] [place] [address] 19876 Assigned PCP 01/01/22 12/22/22 Luh Acharya PA-C [address] [place] [address] Assigned PCP 12/23/22 05/18/23 Haven Buckner, NICOLE [address] [place] [address] Assigned PCP 05/19/23 documented as of this encounter
--- OUTSIDE RECORDS SUMMARY | 2024-05-01 06:11 | XMS_ITS | Encounter Summary ---
Author Organization [place] Address [address] [facility] [place] [address] Care Team Providers Care Property Management Coordinator Name Role Phone Toma Arguello YESICA Unavailable [phone] Laura Us MD Unavailable Jenise España [...] st Contact Info) Description 12/06/2021 [facility] [address] [phone] Luh Acharya PA-C [address] [place] [address] [phone] MyChart Communication Social History Tobacco Use Types [...] Total Score: 5 10/25/19 22 7:03 AM DATA COMMUNICATIONS ENGINEER documented as of this encounter Care Teams Property Management Coordinator Relationship Specialty Start Date End Date Luh Acharya PA-C [address] [place] [address] [phone] PCP - General Family Medicine 11/21/21 01/02/23 Toma Arguello NP [address] [address] Nurse Practitioner Nurse Practitioner Psych/Mental Health 04/11/17 Laura Us MD [place] [place] [address] Gastroenterology 12/20/18 Jenise España MD Assigned Heart and Vascular Provider 07/24/21 11/17/22 Tierra Cancino PA-C [address] [place] [address] Physician Human Insights Lead Ads Marketing Urology 11/17/21 Luh Acharya PA-C [address] [place] [address], [place] [address] Assigned PCP 11/27/21 12/31/21 Tierra Cancino PA-C [address] [place] [address] Assigned Surgical Provider 12/11/21 06/08/23 Haven Buckner, EYE DROPPER ASSEMBLER [address] [place] [address], [place] [address] Assigned PCP 01/01/22 12/22/22 Luh Acharya PA-C [address] [place] [address], [place] [address] Assigned PCP 12/23/22 05/18/23 Haven Buckner, EYE DROPPER ASSEMBLER [address] [place] [address], [place] [address] Assigned PCP 05/19/23 documented as of this encounter
--- OUTSIDE RECORDS SUMMARY | 2024-05-01 06:11 | XMS_ITS | Encounter Summary ---
Author Organization [place] Address [address] [facility] [place] [address] Care Team Providers Care Glass Glazier Name Role Phone Toma Arguello YESICA Unavailable [phone] Laura Us MD Unavailable [facility] Primary Care Provider Haven Buckner CNP Unavailable [phone] Jenise España MD Unavailable Unavailable Tierra Cancino-C Unavailable [phone] Luh Acharya-C Primary Care Provider + Luh Acharya-C Unavailable +[phone] Tierra Cancino-C Unavailable [phone] Haven Buckner CNP Unavailable [phone] Luh Acharya PA-C Unavailable [phone] Haven Buckner CNP Unavailable [phone] Reason for Visit * Reason Onset Date Comments Refill Request 08/26/2021 Encounter Details Date Type Department Care Team (Late st Contact Info) Description 08/26/2021 Cyndie [facility] [address] [place] [phone] Luh Acharya PA-C [address] [place] [address] 980902 Refill Request Social History Tobacco Use Types [...] Manisha Patel RN - 08/31/2021 10:35 AM COLD HEADER OPERATOR Due for an Office visit for further refills, only fill for 30 days Manisha Patel RN, BSN [facility] [place] Triage HEADER OPERATOR documented in this encounter Plan of [...] documented as of this encounter Care Teams Glass Glazier Relationship Specialty Start Date End Date Clinic - Home [facility] [address] [address] PCP - General 10/06/20 11/20/21 Luh Acharya PA-C [address] [place] [address] PCP - General Family Medicine 11/21/21 01/02/23 Toma Arguello NP [place] [address] [place] [address] Nurse Practitioner Nurse Practitioner Psych/Mental Health 04/11/17 Laura Us MD [place] [address] [place], [place] 846[address] Gastroenterology 12/20/18 Haven Buckner, PRESS TOOL MAKER [address] [place] [address] Assigned PCP 05/22/21 11/26/21 Jenise España MD Assigned Heart and Vascular Provider 07/24/21 11/17/22 Tierra Cancino PA-C [address] [place] [address] Physician Teacher'S Aide Urology 11/17/21 Luh Acharya PA-C [address] [place] [address] Assigned PCP 11/27/21 12/31/21 Tierra Cancino PA-C [address] [place] [address] Assigned Surgical Provider 12/11/21 06/08/23 Haven Buckner, NICOLE [address] [facility] [place] [address] Assigned PCP 01/01/22 12/22/22 Luh Acharya PA-C [address] [facility] [place] [address] Assigned PCP 12/23/22 05/18/23 Haven Buckner, PRESS TOOL MAKER [address] [place] [address], [place] [address] Assigned PCP 05/19/23 documented as of this encounter
--- OUTSIDE RECORDS SUMMARY | 2024-05-01 06:11 | XMS_ITS | Encounter Summary ---
Author Organization [place] Address [address] [facility] [place] [address] Care Team Providers Care Elevator Repair Mechanic Name Role Phone Toma Arguello YESICA Unavailable [phone] Laura Us MD Unavailable [facility] [...] Team (Late st Contact Info) Description 09/07/[address] [phone] Haven Buckner, CERTIFIED CORPORATE TRAVEL EXECUTIVE [address] [place] [address] [phone] Medication Refill Social History Tobacco Use Types [...] 09/08/2021 3:35 PM CST Prescription approved per [facility] Refill Protocol. L ENGINE TRAINER documented in this encounter Plan of Treatment [...] documented as of this encounter Care Teams Elevator Repair Mechanic Relationship Specialty Start Date End Date Clinic - [address] [address] PCP - General 10/06/20 11/20/21 Luh Acharya PA-C [address] [place] [address] PCP - General Family Medicine 11/21/21 01/02/23 Toma Arguello DESKTOP SUPPORT MANAGER [facility] [address] [place] [address] Nurse Practitioner Nurse Practitioner Psych/Mental Health 04/11/17 Laura Us MD [facility] [address] [place] [address] Gastroenterology 12/20/18 Haven Buckner, CERTIFIED CORPORATE TRAVEL EXECUTIVE [address] [place] [address] Assigned PCP 05/22/21 11/26/21 Jenise España MD Assigned Heart and Vascular Provider 07/24/21 11/17/22 Tierra Cancino PA-C [address] [place] [address] Physician News Clipping Cutter Urology 11/17/21 Luh Acharya PA-C [address] [place] [address] Assigned PCP 11/27/21 12/31/21 Tierra Cancino PA-C [address] [place] [address] Assigned Surgical Provider 12/11/21 06/08/23 Haven Buckner, CERTIFIED CORPORATE TRAVEL EXECUTIVE [address] [place] [address] Assigned PCP 01/01/22 12/22/22 Luh Acharya PA-C [address] [place] [address] Assigned PCP 12/23/22 05/18/23 Haven Buckner, NICOLE [address] [place] [address] Assigned PCP 05/19/23 documented as of this encounter
--- OUTSIDE RECORDS SUMMARY | 2024-05-01 06:11 | XMS_ITS | Referral Summary ---
Author Organization [place] Address [address] [facility] [place] [address] Care Team Providers Care Pipe Connector Name Role Phone Saundra Toma Dias NP Unavailable [phone] Laura Us MD Unavailable Tierra Cancino PA-C Unavailable Haven Buckner UNDERGROUND UTILITY LOCATOR Unavailable [phone] Allergies Active Allergy Reactions Criticality Noted Date [...] 180 tablet 3 11/15/2021 Active nystatin (MYCOSTATIN) [id number] UNIT/GM external creamIndications:I ntertriginous candidiasis Apply topically [...] and replacement with titanium plate 07/24/2017 at [place] 07/11/2017 Class 1 obesity with serious comorbidity [...] her. She's working with her neurologist at [facility] and [place].for postconcussion therapy and evaluation. Did an EEG [...] .- discontinued by the chronic pain clinic -[facility] 04/2017 Maximum quantity per month: #30 Clinic visit frequency required: Q 6 months Controlled substance agreement on file: Yes Date(s): 01/05/2017 Pain Clinic evaluation in the past: No DIRE Total Score(s): 06/03/2015 Total Score 20 Last [facility] website verification: done on 01/05/2017 [email or web address] Intractable migraine without aura and without status migrainosus- [facility] - every 4-6 weeks 06/03/2015 Chronic bilateral low back p ain with right-sided sciatica-- resolved s/p spine surgery with Dr. Sosa 07/24/2017 06/03/2015 Overview: Not going to [facility] at all for her chronic pain [...] c low back pain - managed by [facility] 06/03/2015 Skin cancer, basal [...] FREE T4 REFLEX Routine 11/17/2021 7:16 AM ASSET PROTECTION GREETER Other fatigue ALBUMIN RANDOM URINE QUANTITATIVE Routine 11/17/2021 7:16 AM ASSET PROTECTION GREETER Essential hypertension LIPID REFLEX TO DIRECT LDL PANEL Routine 11/17/2021 7:16 AM ASSET PROTECTION GREETER Hyperlipidemia LDL goal <130 COMPREHENSIVE METABOLIC PANEL Routine 11/17/2021 7:16 AM ASSET PROTECTION GREETER Hyperlipidemia LDL goal <130 Essential hypertension Essential hypertension with goal blood pressure less than 140/90 MA SCREENING BILATERAL W/ SUNNY Routine 10/13/2021 3:39 PM ASSET PROTECTION GREETER Visit for screening mammogram CBC WITH PLATELETS AND DIFFERENTIAL STAT 06/06/2021 1:10 PM CDT Tachycardia SOB (shortness of breath) CBC WITH PLATELETS & DIFFERENTIAL STAT 06/06/2021 1:10 PM CDT Tachycardia SOB (shortness of breath) HEPATITIS C SCREEN REFLEX TO HCV RNA QUANT AND GENOTYPE Routine 09/23/2020 9:03 AM ASSET PROTECTION GREETER Need for hepatitis C screening test HPV HIGH RISK TYPES DNA CERVICAL Routine 09/23/2020 8:44 AM ASSET PROTECTION GREETER Screening for malignant neoplasm of cervix PAP IMAGED THIN LAYER SCREEN Routine 09/23/2020 8:34 AM ASSET PROTECTION GREETER Screening for malignant neoplasm of cervix COLONOSCOPY Routine 09/29/2019 8:14 AM ASSET PROTECTION GREETER PHQ-9 DEPRESSION SCREENING ORDER Routine 07/23/2019 URINE [...] Maintenance Results * (ABNORMAL) UA without Microscopic [[id number]] (12/02/2021 3:23 PM CDT) Color Urine Yellow [...] 3:57 PM CDT [facility] Specific [place] Urine 1.020 1.003 - 1.035 12/02/2021 3:57 [...] LAB - URINE O RDERABLES [facility] [address] [place] [address], [facility] [phone] * TSH with free T4 reflex (11/17/2021 7:16 AM ASSET PROTECTION GREETER) TSH 0.69 0.40 - 4.00 mU/L 11/18/2021 4:49 PM ASSET PROTECTION GREETER [facility] Blood STRUCTURE OF RIGHT UPPER LIMB / Unknown Venipuncture / Unknown 11/17/2021 7:16 AM ASSET PROTECTION GREETER 11/17/2021 7:16 AM ASSET PROTECTION GREETER Chance Bundy PA-C LAB - BLOOD ORDE JENNIFER [facility] Core Lab [address] [facility], [address] [place] [address], [facility] [phone] * Albumin Random Urine Quantitative with Creat Ratio (11/17/2021 7:16 AM ASSET PROTECTION GREETER) Creatinine Urine mg/dL 70 mg/dL 11/17/2021 4:27 PM ASSET PROTECTION GREETER [facility] Albumin Urine mg/L <5 mg/L 11/17/2021 4:27 PM ASSET PROTECTION GREETER [facility] Albumin Urine mg/g Cr 11/17/2021 4:27 PM ASSET PROTECTION GREETER [facility] Comment:Unable to calculate: ??Urine creatinine or albumin value below detectable level Urine MID-STREAM URINE SPECIMEN / Unknown Non-blood Collection / Unknown 11/17/2021 7:16 AM ASSET PROTECTION GREETER 11/17/2021 7:16 AM ASSET PROTECTION GREETER Chance Bundy PA-C LAB - URINE ORDE JENNIFER [facility] [address] Lab (no room number, 1st floor of clinic) [place] [address], [place] [phone] * (ABNORMAL) Lipid panel reflex to direct LDL Fasting (11/17/2021 7:16 AM ASSET PROTECTION GREETER) Cholesterol 152 <200 mg/dL 11/18/2021 4:49 PM ASSET PROTECTION GREETER [facility] Triglycerides 308(H) <150 mg/dL 11/18/2021 4:49 PM ASSET PROTECTION GREETER [facility] Direct Measure HDL 36(L) >=50 mg/dL 11/18/2021 4:49 PM ASSET PROTECTION GREETER [facility] LDL Cholesterol Calculated 54 <=100 mg/dL 11/18/2021 4:49 PM ASSET PROTECTION GREETER [facility] Non HDL Cholesterol 116 <130 mg/dL 11/18/2021 4:49 PM ASSET PROTECTION GREETER [facility] Patient Fasting > 8hrs? Yes 11/18/2021 4:49 PM ASSET PROTECTION GREETER [facility] Blood STRUCTURE OF RIGHT UPPER LIMB / Unknown Venipuncture / Unknown 11/17/2021 7:16 AM ASSET PROTECTION GREETER 11/17/2021 7:16 AM ASSET PROTECTION GREETER Narrative [facility] - 11/18/2021 4:49 PM ASSET PROTECTION GREETER Cholesterol Desirable: ??<200 mg/dL Triglycerides Normal: ??Less [...] LAB - BLOOD ANNA RODRIGUEZ [facility] Core Lab [address] [facility], [address] [place] [address], [place] [phone] LABORATORY [facility] [address] Lab (no room number, 1st floor of clinic) [place] [address], [facility] [phone] * (ABNORMAL) Comprehensive metabolic panel (BMP + Alb, Alk Phos, ALT, AST, Total. Bili, TP) (11/17/2021 7:16 AM ASSET PROTECTION GREETER) Sodium 138 133 - 144 mmol/L 11/18/2021 4:49 PM ASSET PROTECTION GREETER [facility] Potassium 4.7 3.4 - 5.3 mmol/L 11/18/2021 4:49 PM ASSET PROTECTION GREETER [facility] Chloride 103 94 - 109 mmol/L 11/18/2021 4:49 PM ASSET PROTECTION GREETER [facility] Carbon Dioxide (CO2) 27 20 - 32 mmol/L 11/18/2021 4:49 PM ASSET PROTECTION GREETER [facility] Anion Gap 8 3 - 14 mmol/L 11/18/2021 4:49 PM ASSET PROTECTION GREETER [facility] Urea Nitrogen 16 7 - 30 mg/dL 11/18/2021 4:49 PM ASSET PROTECTION GREETER [facility] Creatinine 1.24(H) 0.52 - 1.04 mg/dL 11/18/2021 4:49 PM ASSET PROTECTION GREETER [facility] Calcium 9.1 8.5 - 10.1 mg/dL 11/18/2021 4:49 PM ASSET PROTECTION GREETER [facility] Glucose 78 70 - 99 mg/dL 11/18/2021 4:49 PM ASSET PROTECTION GREETER [facility] Alkaline Phosphatase 100 40 - 150 U/L 11/18/2021 4:49 PM ASSET PROTECTION GREETER [facility] AST 21 0 - 45 U/L 11/18/2021 4:49 PM ASSET PROTECTION GREETER [facility] ALT 26 0 - 50 U/L 11/18/2021 4:49 PM ASSET PROTECTION GREETER [facility] Protein Total 7.4 6.8 - 8.8 g/dL 11/18/2021 4:49 PM ASSET PROTECTION GREETER [facility] Albumin 3.6 3.4 - 5.0 g/dL 11/18/2021 4:49 PM ASSET PROTECTION GREETER [facility] Bilirubin Total 0.4 0.2 - 1.3 mg/dL 11/18/2021 4:49 PM ASSET PROTECTION GREETER [facility] GFR Estimate 52(L) >60 mL/min/1.7 3m2 11/18/2021 4:49 PM ASSET PROTECTION GREETER [facility] Comment:Effective August 182020 eGFRcr in adults is calculated using the 2020 CKD-EPI creatinine equation which includes age and gender (Gloria et al., NEJM, DOI: 10.1056/PQDGoq8377926) Blood STRUCTURE OF RIGHT UPPER LIMB / Unknown Venipuncture / Unknown 11/17/2021 7:16 AM ASSET PROTECTION GREETER 11/17/2021 7:16 AM ASSET PROTECTION GREETER Chance Bundy PA-C LAB - BLOOD ANNA RODRIGUEZ LAB[facility]AT[facility] Core Lab [address] [facility], Room [address] [place] [address], [facility] [phone] * MA Screen Bilateral w/Sunny (10/13/2021 3:39 PM ASSET PROTECTION GREETER) Anatomical Region Laterality Modality Breast Bilateral Mammography Narrative 10/14/2021 8:52 AM ASSET PROTECTION GREETER BILATERAL FULL FIELD DIGITAL SCREENING MAMMOGRAM WITH [...] LAB - BLOOD ANNA RODRIGUEZ RH [facility]ORAT[facility] Acute Care Lab [address] Lab (1st floor, no room number) [place] [address], [facility] [phone] * Hepatitis C Screen Reflex to HCV RNA Quant and Genotype (09/23/2020 9:03 AM ASSET PROTECTION GREETER) Hepatitis C Antibody Nonreactive NR^Nonre active 09/23/2020 4:55 PM ASSET PROTECTION GREETER [facility] Comment: Assay performance characteristics have not been established for newborns, infants, and children Blood specimen (specimen) 09/23/2020 9:03 AM ASSET PROTECTION GREETER 09/23/2020 9:04 AM ASSET PROTECTION GREETER Chance Bundy PA-C LAB - BLOOD ANNA RODRIGUEZ [facility] [address] [place] [address] * HPV High Risk Types DNA Cervical (09/23/2020 8:44 AM ASSET PROTECTION GREETER) HPV Source [facility] 09/23/2020 8:34 AM ASSET PROTECTION GREETER [facility] HPV 16 DNA Negative NEG^Nega tive 09/29/2020 3:34 PM ASSET PROTECTION GREETER [facility] HPV 18 DNA Negative NEG^Nega tive 09/29/2020 3:34 PM ASSET PROTECTION GREETER [facility] Other HR HPV Negative NEG^Nega tive 09/29/2020 3:34 PM ASSET PROTECTION GREETER [facility] Final Diagnosis This patient's sample is negative for HPV DNA. 09/29/2020 3:34 PM ASSET PROTECTION GREETER [facility] Comment: This test was developed and its performance characteristics determined by the [facility], Molecular Diagnostics Laboratory. It has not been [...] Specimen Description Cervical Cells 09/23/2020 8:34 AM ASSET PROTECTION GREETER [facility] Cervical Cells CERVIX UTERI STRUCTURE / Unknown 09/23/2020 8:44 AM ASSET PROTECTION GREETER 09/23/2020 9:03 AM ASSET PROTECTION GREETER Chance Bundy PA-C LAB - BLOOD ANNA RODRIGUEZ [address] [address] [address] * Pap imaged thin layer screen with HPV - recommended age 30 - 65 years (select HPV order below) (09/23/2020 8:34 AM ASSET PROTECTION GREETER) PAP ELISEO Pastor Report Patient Name: YENNI DYSON MR#: [id number] Specimen #: [id number] Collected: 09/23/2020 Received: 09/24/2020 [...] or other cancers. COLLECTION SITE: Client: ??[facility] Location: [facility] () The technical component of this testing was completed at the [facility], with the professional component performed at the [facility], [address] [place] [phone] ([phone]) [facility] Cytologic material (specimen) 09/23/2020 8:34 AM ASSET PROTECTION GREETER 09/24/2020 11:15 AM ASSET PROTECTION GREETER Chance Bundy PA-C LAB - OPTIME CLI NICAL SPECIMEN COPATH * COLONOSCOPY (09/29/2019 8:14 AM ASSET PROTECTION GREETER) COLONOSCOPY [facility] Patient Name: Yenni Dyson ? [...] # [id number], ?[place] # [id number], SN # [id number] was introduced through ?the anus and advanced [...] Note Initiated On: 09/29/2019 8:14 AM MRN: ?[id number] Procedure Date: ? 09/29/2019 8:14:18 AM Scope Withdrawal Time: 0 hours 13 minutes 33 seconds Total Procedure Duration: 0 hours 19 minutes 46 seconds Estimated Blood Loss: ? none Scope In: 9:00:41 AM Scope Out: 9:20:27 AM RADIOLOGY RESULTS 09/29/2019 8:14 AM ASSET PROTECTION GREETER Heber Glover MD PROCEDURES RADIOLOGY RESULTS * PHQ-9 DEPRESSION SCREENING ORDER (07/23/2019) PHQ9 SCORE 5 Narrative Caro Marino - 07/23/2019 [facility]IN [facility] VISIT NOTE Provider Outside OTHER * (ABNORMAL) Drug Abuse Screen Panel 13, Urine (Pain Care Package) (07/11/2018 2:01 PM CDT) Cannabinoids (58-seq-0-carboxy- 9-THC) Not Detected NDET^Not Detected ng/mL 07/11/2018 5:33 PM CDT [facility] Comment:Cutoff for a negativ e cannabinoid is 50 ng/mL or less. Phencyclidine (Phencyclidine) Not Detected NDET^Not Detected ng/mL 07/11/2018 5:33 PM CDT [facility] Comment:Cutoff for a negativ e PCP is 25 ng/mL or less. Cocaine (Benzoylecgonine) Not Detected NDET^Not Detected ng/mL 07/11/2018 5:33 PM CDT [facility] Comment:Cutoff for a negativ e cocaine is 150 ng/ml or less. Methamphetamine (d-Methamphetamine ) Not Detected NDET^Not Detected ng/mL 07/11/2018 5:33 PM CDT [facility] Comment:Cutoff for a negativ e methamphetamine is 500 ng/ml or less. Opiates (Morphine) Detected, Abnormal Result(A) NDET^Not Detected ng/mL 07/11/2018 5:33 PM CDT [facility] Comment: Cutoff for a positive opiate is greater than 100 ng/ml. This is an unconfirmed screening result to be used for medical purposes only. Order [id number] for confirmation or individual confirmation tests to [facility]. Amphetamine (d-Amphetamine) Not Detected NDET^Not Detected ng/mL 07/11/2018 5:33 PM CDT [facility] Comment:Cutoff for a negativ e amphetamine is 500 ng/mL or less. Benzodiazepines (Nordiazepam) Not Detected NDET^Not Detected ng/mL 07/11/2018 5:33 PM CDT [facility] Comment:Cutoff for a negativ e benzodiazepine is 150 ng/ml or less. Tricyclic Antidepressants (Desipramine) Detected, Abnormal Result(A) NDET^Not Detected ng/mL 07/11/2018 5:33 PM CDT [facility] Comment: Cutoff for a positive tricyclic antidepressant is greater than 300 ng/ml. This is an unconfirmed screening result to be used for medical purposes only. Order [id number] for confirmation or individual confirmation tests to [facility]. Methadone (Methadone) Not Detected NDET^Not Detected ng/mL 07/11/2018 5:33 PM CDT [facility] Comment:Cutoff for a negativ e methadone is 200 ng/ml or less. Barbiturates (Butalbital) Not Detected NDET^Not Detected ng/mL 07/11/2018 5:33 PM CDT [facility] Comment:Cutoff for a negativ e barbituate is 200 ng/ml or less. Oxycodone (Oxycodone) Not Detected NDET^Not Detected ng/mL 07/11/2018 5:33 PM CDT [facility] Comment:Cutoff for a negativ e Oxycodone is 100 ng/mL or less. Propoxyphene (Norpropoxyphene) Not Detected NDET^Not Detected ng/mL 07/11/2018 5:33 PM CDT [facility] Comment:Cutoff for a negativ e propoxyphene is 300 ng/ml or less Buprenorphine (Buprenorphine) Not Detected NDET^Not Detected ng/mL 07/11/2018 5:33 PM CDT [facility] Comment:Cutoff for a negativ e buprenorphine is 10 ng/ml or less Urine specimen (specimen) 07/11/2018 2:01 PM CDT 07/11/2018 2:02 PM CDT Heber Glover MD LAB - URINE ORD ERABLES [facility] [address] [place] [address] * HIV Screening (07/11/2018 10:09 AM CDT) HIV Antigen Antibody Combo Nonreactive NR^Nonrea ctive 07/12/2018 9:42 AM CDT [facility] Comment:HIV-1 p24 Ag & HIV-1 /HIV-2 Ab Not Detected Blood specimen (specimen) 07/11/2018 10:09 AM CDT 07/11/2018 10:10 AM CDT Heber Glover MD LAB - BLOOD ORD ERABLES Performing Organization Address City/[facility]/ZIP Co de Phone Number [facility] [address] [place], [place] [address] * CT Chest/Abdomen/Pelvis w Contrast (04/16/2016 3:09 [...] Advance Directives For more information, please contact: [phone] * Full Code (Latest Code Status on File) Date Activated Date Inactivated Comments 06/27/2017 4:33 PM 06/28/2017 4:51 PM * Full Code Date Activated Date Inactivated Comments 07/07/2016 2:47 PM 06/27/2017 4:33 PM * Full Code Date Activated Date Inactivated Comments 07/06/2016 5:24 PM 07/07/2016 2:47 PM Care Teams Pipe Connector Relationship Specialty Start Date End Date Toma Arguello NP [address] [place] [address] Nurse Practitioner Nurse Practitioner Psych/Mental Health 04/11/17 Laura Us MD [facility] [address] [place] [address] Gastroenterology 12/20/18 Tierra Cancino PA-C [address] [facility] [address] [address] Physician Windows Vmware Engineer Urology 11/17/21 Haven Buckner, NICOLE [address] [place] [address] [phone] Assigned PCP 05/19/23
--- OUTSIDE RECORDS SUMMARY | 2024-05-01 06:11 | XMS_ITS | Encounter Summary ---
Author Organization [place] Address [address] [facility] [place] [address] Care Team Providers Care Visor Installer Name Role Phone Toma Arguello YESICA Unavailable [phone] Laura Us MD Unavailable Jenise España MD Unavailable Unavailable Tierra Cancino PA-C Unavailable Luh Acharya PA-C Primary Care Provider + Luh Acharya PA-C Unavailable [phone] Tierra Cancino PA-C Unavailable Haven Buckner CNP Unavailable Luh Acharya PA-C Unavailable [phone] Haven Buckner CNP Unavailable Encounter Details Date Type Department Care Team (Late st Contact Info) Description 11/29/2021 [facility] [address] [place] [address] Luh Acharya PA-C [address] [place] [address] [phone] Social History Tobacco Use Types Packs/Day Years [...] advise Thank you Manisha Patel RN, BSN [place] Triage documented in this encounter Plan of Treatment Not on file documented as of this encounter Visit Diagnoses Not on filedocumented in this encounter Additional Health Concerns Infection Onset Date Last Indicated Resolved Time Rule Out COVID-19 12/19/2021 12/19/2021 12/20/2021 1:02 PM CDT Assessment Noted Time PHQ-9 Depression Total Score: 5 10/25/19 22 7:03 AM DRY ROOM OPERATOR documented as of this encounter Care Teams Visor Installer Relationship Specialty Start Date End Date Luh Acharya PA-C [address] [place] [address] [phone] PCP - General Family Medicine 11/21/21 01/02/23 Toma Arguello NP [place] [address] [place], [place] [phone] Nurse Practitioner Nurse Practitioner Psych/Mental Health 04/11/17 Laura Us MD [address] [address] Gastroenterology 12/20/18 Jenise España MD Assigned Heart and Vascular Provider 07/24/21 11/17/22 Tierra Cancino PA-C [address] [place] [address] Physician Workers Compensation Claims Adjuster Urology 11/17/21 Luh Acharya PA-C [address] [place] [address] Assigned PCP 11/27/21 12/31/21 Tierra Cancino PA-C [address] [place] [address] Assigned Surgical Provider 12/11/21 06/08/23 Haven Buckner, NICOLE [address] [place] [phone] Assigned PCP 01/01/22 12/22/22 Luh Acharya PA-C [address] [place] [id number] Assigned PCP 12/23/22 05/18/23 Haven Buckner, NICOLE [address] [place] [phone] Assigned PCP 05/19/23 documented as of this encounter
--- OUTSIDE RECORDS SUMMARY | 2024-05-01 06:11 | XMS_ITS | Encounter Summary ---
Author Organization [place] Address [address] [facility] [place] [address] Care Team Providers Care Outside Machinist Helper Name Role Phone Toma Arguello Arun ROBERT Unavailable [phone] Laura Us MD Unavailable Tierra Cancino PA-C Unavailable [phone] Luh Acharya PA-C Primary Care Provider + Tierra Cancino PA-C Unavailable Luh Acharya PA-C Unavailable [phone] Haven Buckner CNP Unavailable Reason for Visit * Reason Comments Medication Refill Encounter Details Date Type Department Care Team (Late st Contact Info) Description 12/30/[address] [phone] Luh Acharya PA-C [address] [place] [address] [phone] Medication Refill Social History Tobacco Use Types [...] further fills. Luh Acharya MBA, MS, REFUGIO [facility] * Telephone Encounter - Haven Pike CMA [...] provided Drug does not pass the [facility] refill protocol Thank you! Ellen Lemon RN [facility] Triage documented in this encounter Plan of Treatment Not on file documented as of this encounter Visit Diagnoses Diagnosis Gastroesophageal reflux disease, unspecified whether esophagitis present documented in this encounter Additional Health Concerns Assessment Noted Time PHQ-9 Depression Total Score: 5 02/08/20 22 7:03 AM COAT CHECKER documented as of this encounter Care Teams Outside Machinist Helper Relationship Specialty Start Date End Date Luh Acharya PA-C [address] [place] [phone] PCP - General Family Medicine 11/21/21 01/02/23 Toma Arguello NP [place] [address] [place] [address] Nurse Practitioner Nurse Practitioner Psych/Mental Health 04/11/17 Laura Us MD [place] [address] [place] [address] Gastroenterology 12/20/18 Tierra Cancino PA-C [address] [place] [address] Physician Hand Ii Thermal Cutter Urology 11/17/21 Tierra Cancino PA-C [address] [place] [address] Assigned Surgical Provider 12/11/21 06/08/23 Luh Acharya PA-C [address] [place] [id number] Assigned PCP 12/23/22 05/18/23 Haven Buckner, NICOLE [address] [place] [phone] Assigned PCP 05/19/23 documented as of this encounter
--- OUTSIDE RECORDS SUMMARY | 2024-05-01 06:11 | XMS_ITS | Encounter Summary ---
Author Organization [place] Address [address] [facility] [address] Care Team Providers Care Pipe Roller Name Role Phone Toma Arguello YESICA Unavailable Laura Us MD Unavailable Luh Acharya-C Unavailable +- [phone] [facility] Primary Care Provider Jas Bojorquez DO Unavailable +[phone] Haven Buckner CNP Unavailable +[phone] Jenise España MD Unavailable Unavailable Tierra Cancino PA-C Unavailable [phone] Luh Acharya-C Primary Care Provider + Luh Acharya-C Unavailable +- [phone] Tierra Cancino-C Unavailable [phone] Haven Buckner CNP Unavailable +[phone] Luh Acharya-C Unavailable +[phone] Haven Buckner CNP Unavailable Reason for Visit * Reason Onset Date Comments MyChart Communication 12/22/2020 Encounter Details Date Type Department Care Team (Late st Contact Info) Description 12/22/2020 MyC Medical Advice M [address] [phone] Luh Acharya PA-C [address] [place] [address] MyChart Communication Social History Tobacco Use Types [...] Hinton RN - 12/23/2020 1:18 PM CDT [employer] sent to advise OV/VV Awaiting reply. Juan Pablo Hernandez RN [facility] [place] Triage * Telephone Encounter - Haven Navarro [...] last office notes. Persistent insomnia- managed by [facility] Clinic of Neurology - Dr. [...] discuss this and possible alternatives. Haven Navarro, THIRD GRADE TEACHER-BC * Telephone Encounter - Manisha Patel RN - 12/22/2020 10:55 AM CDT 11/18/2020 Please see my chart message below Please review and advise Thank you Manisha Patel RN, BSN [place] Triage documented in this encounter Plan of [...] Total Score: 1 07/27/20 20 2:05 PM MANAGER COMMUNITY RELATIONS documented as of this encounter Care Teams Pipe Roller Relationship Specialty Start Date End Date Clinic - [address] [phone] PCP - General 10/06/20 11/20/21 Luh Acharya PA-C [address] [place] [address] [phone] PCP - General Family Medicine 11/21/21 01/02/23 Toma Arguello NP [address] [address] Nurse Practitioner Nurse Practitioner Psych/Mental Health 04/11/17 Laura Us MD [address] [address] Gastroenterology 12/20/18 uLh Acharya PA-C [address] [place] [address] Assigned PCP 06/20/20 03/31/21 Jas Bojorquez DO [address] [place] [address] Assigned PCP 04/01/21 05/21/21 Haven Buckner CNP [address] [place] [address] Assigned PCP 05/22/21 11/26/21 Jenise España MD Assigned Heart and Vascular Provider 07/24/21 11/17/22 Tierra Cancino PA-C [address] [place] [address] Physician Senior Consumer Insights Consultant Urology 11/17/21 Luh Acharya PA-C [address] [place] [address] Assigned PCP 11/27/21 12/31/21 Tierra Cancino PA-C [address] [place] [address] Assigned Surgical Provider 12/11/21 06/08/23 Haven Buckner CNP [address] [place] [address] Assigned PCP 01/01/22 12/22/22 Luh Acharya PA-C [address] [place] [address]60 Assigned PCP 12/23/22 05/18/23 Haven Buckner CNP [address] [place] [address] Assigned PCP 05/19/23 documented as of this encounter
--- OUTSIDE RECORDS SUMMARY | 2024-05-01 06:11 | XMS_ITS | Encounter Summary ---
Author Organization [place] Address [address] [facility] [place] [address] Care Team Providers Care Tail Sawyer Name Role Phone Toma Arguello YESICA Unavailable [phone] Laura Us MD Unavailable [facility] Primary Care Provider Haven Buckner CNP Unavailable +[phone] Jenise España MD Unavailable Unavailable Tierra Cancino-C Unavailable [phone] Luh Acharya-C Primary Care Provider + Luh Acharya-Melissa Unavailable +-[phone] Tierra Cancino-C Unavailable [phone] Haven Buckner CNP Unavailable +[phone] Luh Acharya PA-C Unavailable +-[phone] Haven Buckner CNP Unavailable [phone] Reason for Visit * Reason Comments Medication Refill Encounter Details Date Type Department Care Team (Late st Contact Info) Description 07/20/2021 [facility] [address] [facility] [address] [place] [phone] Luh Acharya PA-C [address] [place] [address] Medication Refill Social History Tobacco Use Types [...] per RN protocol Manisha Patel RN, BSN [place] Triage documented in this encounter Plan of [...] documented as of this encounter Care Teams Tail Sawyer Relationship Specialty Start Date End Date Clinic - [facility] [address] [place] [address] PCP - General 10/06/20 11/20/21 Luh Acharya PA-C [address] [place] [address] PCP - General Family Medicine 11/21/21 01/02/23 Toma Arguello SCARF AND ANNEAL OPERATOR [facility] [address] [place] [address] Nurse Practitioner Nurse Practitioner Psych/Mental Health 04/11/17 Laura Us MD [facility] [address] [place] [address] Gastroenterology 12/20/18 Haven Buckner, NICOLE [address] [place] [address] Assigned PCP 05/22/21 11/26/21 Jenise España MD Assigned Heart and Vascular Provider 07/24/21 11/17/22 Tierra Cancino PA-C [address] [place] [address] Physician Automobile Or Truck Rental Dispatcher Urology 11/17/21 Luh Acharya PA-C [address] [place] [address] Assigned PCP 11/27/21 12/31/21 Tierra Cancino PA-C [address] [place] [address] Assigned Surgical Provider 12/11/21 06/08/23 Haven Buckner, NICOLE [address] [place] [address], [place] [address] Assigned PCP 01/01/22 12/22/22 Luh Acharya PA-C [address] [place] [address], [place] [address] Assigned PCP 12/23/22 05/18/23 Haven Buckner, NICOLE [address] [place] [address], [place] [address] Assigned PCP 05/19/23 documented as of this encounter
--- OUTSIDE RECORDS SUMMARY | 2024-05-01 06:11 | XMS_ITS | Encounter Summary ---
Author Organization [place] Address [address] [facility] [place] [address] Care Team Providers Care Charge Histotechnologist Name Role Phone Toma Arguello YESICA Unavailable [phone] Laura Us MD Unavailable [facility] Primary Care Provider Haven Buckner CNP Unavailable +[phone] Jenise España MD Unavailable Unavailable Tierra Cancino-C Unavailable [phone] Luh Acharya-C Primary Care Provider + Luh Acharya-C Unavailable +-[phone] Tierra Cancino-C Unavailable [phone] Haven Buckner CNP Unavailable +[phone] Luh Acharya PA-C Unavailable +-[phone] Haven Buckner CNP Unavailable [phone] Reason for Visit * Reason Comments Medication Refill Encounter Details Date Type Department Care Team (Late st Contact Info) Description 10/19/2021 [facility] [address] [facility] [address] [place] [address] Luh Acharya PA-C [address] [place] [address] Medication Refill Social History Tobacco Use Types [...] COVID-19? No / Unsure 10/13/2021 3:21 PM CENTRAL COMMUNICATIONS SPECIALIST documented as of this encounter Miscellaneous Notes * Telephone Encounter - Juan Pablo Hinton RN - 10/20/2021 1:29 PM CST Prescription approved per [facility] Refill Protocol. Juan Pablo Hinton RN [facility] Triage RAL COMMUNICATIONS SPECIALIST documented in this encounter Plan of Treatment [...] documented as of this encounter Care Teams Charge Histotechnologist Relationship Specialty Start Date End Date Clinic - [facility] [address] [place] [address] PCP - General 10/06/20 11/20/21 Luh Acharya PA-C [address] [place] [address] PCP - General Family Medicine 11/21/21 01/02/23 Toma Arguello STUDIO RECEPTIONIST [place] [address] [place] [address] Nurse Practitioner Nurse Practitioner Psych/Mental Health 04/11/17 Laura Us MD [place] [address] [place] [address] Gastroenterology 12/20/18 Haven Buckner, POWER LINEMAN [address] [place] [address] Assigned PCP 05/22/21 11/26/21 Jenise España MD Assigned Heart and Vascular Provider 07/24/21 11/17/22 Tierra Cancino PA-C [address] [place] [address] Physician Pre Fabricator Urology 11/17/21 Luh Acharya PA-C [address] [place] [address] Assigned PCP 11/27/21 12/31/21 Tierra Cancino PA-C [address] [place] [address] Assigned Surgical Provider 12/11/21 06/08/23 Haven Buckner, NICOLE [address] [place] [address] Assigned PCP 01/01/22 12/22/22 Luh Acharya PA-C [address] [place] [address] Assigned PCP 12/23/22 05/18/23 Haven Buckner, NICOLE [address] [place] [address] Assigned PCP 05/19/23 documented as of this encounter
--- OUTSIDE RECORDS SUMMARY | 2024-05-01 06:11 | XMS_ITS | Encounter Summary ---
Author Organization [place] Address [address] [facility] [place] [address] Care Team Providers Care Distribution Engineering Technologist Name Role Phone Kathy Glover MD Primary Care Provider Toma Arguello NP Unavailable [phone] Laura Us MD Unavailable Luh Acharya-C Unavailable + [phone] [facility] Primary Care Provider Jas Bojorquez DO Unavailable [phone] BucknerHaven lofton INSTITUTION DIRECTOR Unavailable +-[phone] Jenise España MD Unavailable Unavailable Tierra Cancino-C Unavailable [phone] Luh Acharya-C Primary Care Provider + Luh Acharya-C Unavailable + [phone] Tierra Cancino-C Unavailable Haven Buckner INSTITUTION DIRECTOR Unavailable +[phone] Luh Acharya-C Unavailable +[phone] Haven Buckner INSTITUTION DIRECTOR Unavailable [phone] Encounter Details Date Type Department Care Team (Late st Contact Info) Description 09/28/2020 Orders Only [address] [place] [address] Diaz Camargo MD [facility] [address] [place] [address] Encounter for screening for other viral diseases [...] COVID-19? No / Unsure 09/27/2020 9:59 AM INSTALLATION SUPERVISOR documented as of this encounter Plan of Treatment Not on file documented as of this encounter Results * Asymptomatic COVID-19 Virus (Coronavirus) by PCR (10/03/2020 1:26 PM INSTALLATION SUPERVISOR) COVID-19 Virus PCR to [facility] - Source Nasopharyngeal 10/03/2020 1:26 PM INSTALLATION SUPERVISOR [facility] COVID-19 Virus PCR to [facility] - Result Test received-See reflex to IDDL test SARS CoV2 (COVID-19) Virus RT-PCR 10/03/2020 3:28 PM INSTALLATION SUPERVISOR [facility] Specimen from nasopharyngeal structure (specimen) 10/03/2020 1:26 PM INSTALLATION SUPERVISOR 10/03/2020 1:27 PM INSTALLATION SUPERVISOR Diaz Camargo MD LAB - MICRO GENERAL ORDERABLES [facility] [address] [place] [address], [facility] [address] [place], [place] [address] [phone] documented in this encounter Visit Diagnoses Diagnosis Encounter for screening for other viral diseases documented in this encounter Additional Health Concerns Infection Onset Date Last Indicated Resolved Time Rule Out COVID-19 06/06/2021 06/06/2021 06/06/2021 5:30 PM CDT Rule Out COVID-19 12/19/2021 12/19/2021 12/20/2021 1:02 PM CDT Assessment Noted Time PHQ-9 Depression Total Score: 1 07/27/20 2:05 PM INSTALLATION SUPERVISOR documented as of this encounter Care Teams Distribution Engineering Technologist Relationship Specialty Start Date End Date Kathy Glover MD [address] [place] [address] [phone] PCP - General Family Practice 06/03/15 10/05/20 Clinic - [facility] [address] [place] [address] [phone] PCP - General 10/06/20 11/20/21 Luh Acharya PA-C [address] [place] [address] [phone] PCP - General Family Medicine 11/21/21 01/02/23 Toma Arguello NP [facility] [address] [place] [address] Nurse Practitioner Nurse Practitioner Psych/Mental Health 04/11/17 Laura Us MD [facility] [address] [place] [address] Gastroenterology 12/20/18 Luh Acharya PA-C [facility] [place] [address] Assigned PCP 06/20/20 03/31/21 Jas Bojorquez DO [address] [place] [address], [place] [address] Assigned PCP 04/01/21 05/21/21 Haven Buckner, INSTITUTION DIRECTOR [address] [place] [address], [place] [address] Assigned PCP 05/22/21 11/26/21 Jenise España MD Assigned Heart and Vascular Provider 07/24/21 11/17/22 Tierra Cancino PA-C [address] [place] [address] Physician Leather Goods Sales Representative Urology 11/17/21 Luh Acharya PA-C [address] [place] [address], [place] [address] Assigned PCP 11/27/21 12/31/21 Tierra Cancino PA-C [address] [place] [address] Assigned Surgical Provider 12/11/21 06/08/23 Havne Buckner, INSTITUTION DIRECTOR [address] [place] [address], [place] [address] Assigned PCP 01/01/22 12/22/22 Luh Acharya PA-C [address] [place] [address] Assigned PCP 12/23/22 05/18/23 Haven Buckner, NICOLE [address] [place] [address] Assigned PCP 05/19/23 documented as of this encounter
--- OUTSIDE RECORDS SUMMARY | 2024-05-01 06:11 | XMS_ITS | Encounter Summary ---
Author Organization [place] Address [address] [place] [address] Care Team Providers Care Blanker Press Operator Name Role Phone Toma Arguello YESICA Unavailable [phone] Laura sU MD Unavailable [facility] Primary Care Provider Haven Buckner CNP Unavailable [...] Team (Late st Contact Info) Description 10/14/[address] [phone] Luh Acharya PA-C [address] [place] [address] Medication Refill Social History Tobacco Use Types [...] COVID-19? No / Unsure 10/13/2021 3:21 PM ROCK CRUSHING MACHINE OPERATOR documented as of this encounter Miscellaneous Notes * Telephone Encounter - Nancy Monte RN - 10/17/2021 5:44 PM CST Prescription approved per [facility] [place] Refill Protocol. Next 5 appointments (look out 90 days) Nov 15, 2021 1:40 PM (Arrive by 1:20 PM) Adult Preventative Visit with Luh Acharya PA-C [facility] ([facility] ) [address] [place] [address]. [facility] [phone] Nancy Monte RN [facility] CRUSHING MACHINE OPERATOR documented in this encounter Plan of [...] documented as of this encounter Care Teams Blanker Press Operator Relationship Specialty Start Date End Date Clinic - [facility] [address] [place] [address] [phone] PCP - General 10/06/20 11/20/21 Luh Acharya PA-C [address] [place] [address] 240262 PCP - General Family Medicine 11/21/21 01/02/23 Toma Arguello NP [address] 649387 Nurse Practitioner Nurse Practitioner Psych/Mental Health 04/11/17 Laura Us MD [address] [address] Gastroenterology 12/20/18 Haven Buckner, NICOLE [address] [place] [address] [phone] Assigned PCP 05/22/21 11/26/21 Jenise España MD Assigned Heart and Vascular Provider 07/24/21 11/17/22 Tierra Cancino PA-C [address] [place], [place] 126[address] Physician Computer Systems Auditor Urology 11/17/21 Luh Acharya PA-C [address] [place] [address] Assigned PCP 11/27/21 12/31/21 Tierra Cancino PA-C [address] [place] [address] Assigned Surgical Provider 12/11/21 06/08/23 Haven Buckner, DIRECTOR OF VALUATION [address] [place] [address] Assigned PCP 01/01/22 12/22/22 Luh Acharya PA-C [address] [place] [address]661 Assigned PCP 12/23/22 05/18/23 Haven Buckner, DIRECTOR OF VALUATION [address] [place] [address] Assigned PCP 05/19/23 documented as of this encounter
--- OUTSIDE RECORDS SUMMARY | 2024-05-01 06:12 | XMS_ITS | Encounter Summary ---
Author Organization [place] Address [address] [facility] [place] [address] Care Team Providers Care Veterinary Attendant Name Role Phone Kathy Glover MD Primary Care Provider Toma Arguello NP Unavailable [phone] Kathy Glover MD Unavailable [phone] Kathy Glover MD Unavailable +[phone] Laura Us MD Unavailable Luh AcharyaC Unavailable + [phone] Kathy Glover MD Unavailable + [phone] Luh AcharyaC Unavailable + [phone] Edward Marlow MD Unavailable [phone] [facility] Primary Care Provider Jas Bojorquez DO Unavailable +[phone] Haven Buckner CNP Unavailable +[phone] Jenise España MD Unavailable Unavailable Tierra Cancino PA-C Unavailable [phone] Luh AcharyaC Primary Care Provider + Luh AcharyaC Unavailable [phone] Shaniamando Tierra Magda HUFF Unavailable Haven Buckner CNP Unavailable +1-2-2 Luh AcharyaC Unavailable +[phone] BucknerHaven lofton CNP Unavailable +1--2 Encounter Details Date Type Department Care Team (Late st Contact Info) Description 03/16/2017 MyC Medical Advice [address] [address] Kathy Glover MD [address] [place] [address] [phone] Social History Tobacco Use Types Packs/Day Years [...] documented as of this encounter Care Teams Veterinary Attendant Relationship Specialty Start Date End Date Kathy Glover MD [address] [place] [address] [phone] PCP - General Family Practice 06/03/15 10/05/20 Kathy Glover MD [address] [place] [address] 42968 PCP - Assigned PCP 07/25/15 11/19/[address] [address] PCP - General 10/06/20 11/20/21 Luh Acharya PA-C [address] [place] [address] 150312 PCP - General Family Medicine 11/21/21 01/02/23 Toma Arguello NP [address] 276927 Nurse Practitioner Nurse Practitioner Psych/Mental Health 04/11/17 Kathy Glover MD [address] [place] [address] Assigned PCP 07/25/15 12/20/19 Laura Us MD [address] [place] [address] Gastroenterology 12/20/18 Luh Acharya PA-C [address] [place] [address] 97138 Assigned PCP 12/21/19 01/17/20 Kathy Glover MD [address] [place] [address] Assigned PCP 01/18/20 06/19/20 Luh Acharya PA-C [address] [place] [address] 14942 Assigned PCP 06/20/20 03/31/21 Edward [place] [address] Assigned Surgical Provider 07/09/20 07/31/20 Jas Bojorquez DO [address] [place] [address] [phone] Assigned PCP 04/01/21 05/21/21 Haven Buckner CNP [address] [place] [address]115 Assigned PCP 05/22/21 11/26/21 Jenise España MD Assigned Heart and Vascular Provider 07/24/21 11/17/22 Tierra Cancino PA-C [address] [place] [address] Physician School Bus Mechanic Urology 11/17/21 Luh Acharya PA-C [address] [place] [address] Assigned PCP 11/27/21 12/31/21 Tierra Cancino PA-C [address] [place] [address] Assigned Surgical Provider 12/11/21 06/08/23 Haven Buckner CNP [address] [place] [address]87 Assigned PCP 01/01/22 12/22/22 Luh Acharya PA-C [address] [place] [address] 77843 Assigned PCP 12/23/22 05/18/23 Haven Buckner CNP [address] [place] [address] 49453 Assigned PCP 05/19/23 documented as of this encounter
--- OUTSIDE RECORDS SUMMARY | 2024-05-01 06:12 | XMS_ITS | Encounter Summary ---
Author Organization [place] Address [address] [facility] [place] [address] Care Team Providers Care Internal Consultant Name Role Phone Kathy Glover MD Primary Care Provider Toma Arguello NP Unavailable [phone] Kathy Glover MD Unavailable [phone] Laura Us MD Unavailable Luh AcharyaC Unavailable + [phone] Kathy Glover MD Unavailable +[phone] Luh AcharyaC Unavailable + [phone] Edward Marlow MD Unavailable [phone] [facility] Primary Care Provider Jas Bojorquez DO Unavailable +[phone] Haven Buckner CNP Unavailable +[phone] Jenise España MD Unavailable Unavailable Tierra Cancino-C Unavailable Luh Acharya PA-C Primary Care Provider + Luh AcharyaC Unavailable [phone] Tierra Cancino PA-C Unavailable Haven Buckner MEDICAL HISTORIAN Unavailable +[phone] Acharya Luh Enedina BAUTISTAC Unavailable +[phone] BucknerHaven lofton MEDICAL HISTORIAN Unavailable [phone] Reason for Visit * Reason Onset Date Comments MyChart Communication 01/17/2019 Encounter Details Date Type Department Care Team (Late st Contact Info) Description 01/17/2019 MyC Medical Advice [address] [address] [place] [address] [place] [address] MyChart Communication Social History Tobacco Use [...] AM CDT mychart sent. Dona Smith RN [place] Triage * Telephone Encounter - Renay Barlow RN - 01/17/2019 4:55 PM CDT MyChart Message sent Awaiting response Renay Barlow RN [place] Triage * Telephone Encounter - Coty Doan RN - 01/17/2019 9:40 AM CDT Mychart note sent to patient. Coty Doan BS, RN, PHN [facility] Triage ) [phone] documented in this encounter Plan of Treatment Not on file documented as of this encounter Visit Diagnoses Not on filedocumented in this encounter Additional Health Concerns Infection Onset Date Last Indicated Resolved Time Rule Out COVID-19 06/06/2021 06/06/2021 06/06/2021 5:30 PM CDT Rule Out COVID-19 12/19/2021 12/19/2021 12/20/2021 1:02 PM CDT Assessment Noted Time PHQ-9 Depression Total Score: 5 11/22/19 19 7:06 AM DIRECTOR OF PHARMACY documented as of this encounter Care Teams Internal Consultant Relationship Specialty Start Date End Date Kathy Glover MD [address] [place] [address] [phone] PCP - General Family Practice 06/03/15 10/05/[address] [phone] PCP - General 10/06/20 11/20/21 Luh Acharya PA-C [address] [place] [address] [phone] PCP - General Family Medicine 11/21/21 01/02/23 Toma Arguello NP [address] [address] Nurse Practitioner Nurse Practitioner Psych/Mental Health 04/11/17 Kathy Glover MD [address] [place] [address], [place] [address] Assigned PCP 07/25/15 12/20/19 Lauar Us MD [address] [place] [address] Gastroenterology 12/20/18 Luh Acharya PA-C [address] [place] [address], [place] [address] Assigned PCP 12/21/19 01/17/20 Kathy Glover MD [address] [place] [address] 28[address] Assigned PCP 01/18/20 06/19/20 Luh Acharya, REFUGIO [address] [place] [address] 827952 Assigned PCP 06/20/20 03/31/21 Edward Marlow MD [facility] [place] [address] Assigned Surgical Provider 07/09/20 07/31/20 Jas Bojorquez DO [address] [place] [address] [phone] Assigned PCP 04/01/21 05/21/21 Haven Buckner, MEDICAL HISTORIAN [address] [place] [address] 5[address] Assigned PCP 05/22/21 11/26/21 Jenise España MD Assigned Heart and Vascular Provider 07/24/21 11/17/22 Tierra Cancino PA-C [address] [place] [address] Physician Chiropractor Assistant Urology 11/17/21 Luh Acharya PA-C [address] [place] [address], [place] [address] Assigned PCP 11/27/21 12/31/21 Tierra Cancino PA-C [address] [place] [address] Assigned Surgical Provider 12/11/21 06/08/23 Havne Buckner, NICOLE [address] [place] [address], [place] [address] Assigned PCP 01/01/22 12/22/22 Luh Acharya PA-C [address] [place] [address], [place] [address] Assigned PCP 12/23/22 05/18/23 Haven Buckner, NICOLE [address] [place] [address], [place] [address] Assigned PCP 05/19/23 documented as of this encounter
--- OUTSIDE RECORDS SUMMARY | 2024-05-01 06:12 | XMS_ITS | Encounter Summary ---
Author Organization [place] Address [address] [facility] [place] [address] Care Team Providers Care Talent Acquisition Administrator Name Role Phone Kathy Glover MD Primary Care Provider Toma Arguello NP Unavailable [phone] Kathy Glover MD Unavailable +[phone] Kathy Glover MD Unavailable +[phone] Laura Us MD Unavailable Luh AcharyaC Unavailable + [phone] Kathy Glover MD Unavailable + -[phone] Luh AcharyaC Unavailable + [phone] Edward Marlow MD Unavailable [phone] [facility] Primary Care Provider Jas Bojorquez DO Unavailable +[phone] Haven Buckner CNP Unavailable +[phone] Jenise España MD Unavailable Unavailable Tierra Cancino PA-C Unavailable Luh AcharyaC Primary Care Provider + Luh Acharya PA-C Unavailable [phone] T[place] PA-C Unavailable Haven Buckner SEAFOOD PROCESS WORKER Unavailable +[phone] Luh Acharya PA-C Unavailable [phone] BucknerHaven lofton SEAFOOD PROCESS WORKER Unavailable +[phone] Reason for Visit * Reason Onset Date Comments Refill Request 04/18/2018 topiramate (TOPA MAX) 50 MG tablet Encounter Details Date Type Department Care Team (Late st Contact Info) Description 04/18/2018 Refill [facility] [address] [place] [address] Kathy Glover MD [address] [place] [address] Refill Request (topiramate (TOPAMAX) 50 [...] from weight check today. Dona Smith RN [place] Triage * Telephone Encounter - Giovanna Casey - 04/24/2018 3:24 PM CDT Left non-detailed message for patient to call back. Please schedule follow up when patient calls back. (see previous notes for details) Giovanna Casey Sponsorship Manager * Telephone Encounter - Tiffanie Darby RN [...] this from neurology? TAYLA Simmons, RN, [facility] [phone] * Telephone Encounter - Nery Chua - [...] HCT 38.9 PLT 342 For GICH ONLY: GATZ004 = WBC, CMTW564 = RBC Passed - Normal ALT or [...] status migrainosus- now seeing Dr. Damian - [facility] - used to see Dr. Eliseo Dubon [facility] clinic of Neurology Migraine without aura, with [...] documented as of this encounter Care Teams Talent Acquisition Administrator Relationship Specialty Start Date End Date Kathy Glover MD [address] [place] [address] [phone] PCP - General Family Practice 06/03/15 10/05/20 Kathy Glover MD [address] [place] [address] [phone] PCP - Assigned PCP 07/25/15 11/19/[address] 677122 PCP - General 10/06/20 11/20/21 Luh Acharya PA-C [address] [place] [address] 692322 PCP - General Family Medicine 11/21/21 01/02/23 Toma Arguello NP [address] [address] Nurse Practitioner Nurse Practitioner Psych/Mental Health 04/11/17 Kathy Glover MD [address] [place] [address] 26493 Assigned PCP 07/25/15 12/20/19 Laura Us MD [address] [place] [address] 82221 Gastroenterology 12/20/18 Luh Acharya PA-C [address] [place] [address] 67887 Assigned PCP 12/21/19 01/17/20 Kathy Glover MD [address] [place] [address] 00736 Assigned PCP 01/18/20 06/19/20 Luh Acharya PA-C [address] [place] [address] 45171 Assigned PCP 06/20/20 03/31/21 Edward Marlow MD [address] [place] [address] 46937 Assigned Surgical Provider 07/09/20 07/31/20 Jas Bojorquez DO [address] [place] [address] 06676 Assigned PCP 04/01/21 05/21/21 Haven Buckner, SEAFOOD PROCESS WORKER [address] [place] [address] 55754 Assigned PCP 05/22/21 11/26/21 Jenise España MD Assigned Heart and Vascular Provider 07/24/21 11/17/22 Tierra Cancino PA-C [address] [place] [address] Physician Thread Winder Automatic Urology 11/17/21 Luh Acharya PA-C [address] [place] [address] 51980 Assigned PCP 11/27/21 12/31/21 Tierra Cancino PA-C [address] [place] [address] Assigned Surgical Provider 12/11/21 06/08/23 Haven Buckner CNP [address] [place] [address] 95346 Assigned PCP 01/01/22 12/22/22 Luh Acharya PA-C [address] [place] [address] 25785 Assigned PCP 12/23/22 05/18/23 Haven Buckner CNP [address] [place] [address] 49694 Assigned PCP 05/19/23 documented as of this encounter
--- OUTSIDE RECORDS SUMMARY | 2024-05-01 06:12 | XMS_ITS | Encounter Summary ---
Author Organization [place] Address [address] [facility] [address] Care Team Providers Care Fire Hydrant Operator Name Role Phone Kathy Glover MD Primary Care Provider Toma Arguello NP Unavailable [phone] Kathy Glover MD Unavailable +[phone] Laura Us MD Unavailable Luh AcharyaC Unavailable + [phone] Kathy Glover MD Unavailable +[phone] Luh AcharyaC Unavailable + [phone] Edward Marlow MD Unavailable +[phone] [facility] Primary Care Provider Jas Bojorquez DO Unavailable +[phone] Haven Buckner CNP Unavailable +[phone] Jenise España MD Unavailable Unavailable Tierra Cancino-C Unavailable Luh Acharya PA-C Primary Care Provider + Luh AcharyaC Unavailable Tierra Cancino PA-C Unavailable Haven Buckner CNP Unavailable +[phone] Luh Acharya PA-C Unavailable [phone] Haven Buckner CNP Unavailable +[phone] Reason for Visit * Reason Comments Medication Refill Encounter Details Date Type Department Care Team (Late st Contact Info) Description [facility]/10/[facility] [address] [phone] Luh Acharya PA-C [address] [place] [address] Medication Refill Social History Tobacco Use [...] documented as of this encounter Care Teams Fire Hydrant Operator Relationship Specialty Start Date End Date Kathy Glover MD [address] [place] [address] 38396 PCP - General Family Practice 06/03/15 10/05/[address] [address] PCP - General 10/06/20 11/20/21 Luh Acharya PA-C [address] [place] [address] 40761 PCP - General Family Medicine 11/21/21 01/02/23 Toma Arguello NP [address] [address] Nurse Practitioner Nurse Practitioner Psych/Mental Health 04/11/17 Kathy Glover MD [address] [place] [address] 34903 Assigned PCP 07/25/15 12/20/19 Laura Us MD [address] [place] [address] 34851 Gastroenterology 12/20/18 Luh Acharya PA-C [address] [place] [address] 23323 Assigned PCP 12/21/19 01/17/20 Kathy Glover MD [address] [place] [address] 91300 Assigned PCP 01/18/20 06/19/20 Luh Acharya PA-C [address] [place] [address] 73933 Assigned PCP 06/20/20 03/31/21 Edward Marlow MD [place] [address] Assigned Surgical Provider 07/09/20 07/31/20 Jas Bojorquez DO [address] [place] [address] 48525 Assigned PCP 04/01/21 05/21/21 Haven Buckner, MICROWAVE OVEN ASSEMBLER [address] [place] [address] 59502 Assigned PCP 05/22/21 11/26/21 Jenise España MD Assigned Heart and Vascular Provider 07/24/21 11/17/22 Tierra Cancino PA-C [address] [place] [address] Physician Painter And Body Mechanic Apprentice Urology 11/17/21 Luh Acharya PA-C [address] [place] [address] 71977 Assigned PCP 11/27/21 12/31/21 Tierra Cancino PA-C [address] [place] [address] Assigned Surgical Provider 12/11/21 06/08/23 Haven Buckner, NICOLE [address] [place] [address] 64405 Assigned PCP 01/01/22 12/22/22 Luh Acharya PA-C [address] [place] [address] 41067 Assigned PCP 12/23/22 05/18/23 Haven Buckner, MICROWAVE OVEN ASSEMBLER [address] [place] [address] 92892 Assigned PCP 05/19/23 documented as of this encounter
--- OUTSIDE RECORDS SUMMARY | 2024-05-01 06:12 | XMS_ITS | Encounter Summary ---
Author Organization [place] Address [address] [facility] [place] [address] Care Team Providers Care Set Up Worker Name Role Phone Kathy Glover MD Primary Care Provider Toma Arguello NP Unavailable [phone] Laura Us MD Unavailable Luh Acharya-C Unavailable + [phone] [facility] Primary Care Provider Jas Bojorquez DO Unavailable +[phone] BucknerHaven lofton ENTRY LEVEL TRUCK DRIVER Unavailable +-[phone] Jenise España MD Unavailable Unavailable Tierra Cancino-C Unavailable [phone] Luh Acharya-C Primary Care Provider + Luh Acharya-C Unavailable + [phone] Tierra Cancino-C Unavailable Haven Buckner ENTRY LEVEL TRUCK DRIVER Unavailable +[phone] Luh Acharya-C Unavailable +[phone] Haven uBckner ENTRY LEVEL TRUCK DRIVER Unavailable +[phone] Reason for Visit * Reason Comments Medication Refill Encounter Details Date Type Department Care Team (Late st Contact Info) Description 08/15/[address] [phone] [place] [address] [place] [address] Medication Refill Social History Tobacco Use Types [...] Raina Thomas - 08/18/2020 9:23 AM CST Carma message sent to patient to call and schedule follow up visit Raina Thoams/ Steam Oven Operator ING COUNSELOR * Telephone Encounter - Haven Navarro APRN CNP - 08/16/2020 5:03 PM HOUSING COUNSELOR Images from the original note were not included. Due for physical wellness exam with pap; please help patient get this set up. #90 day fill. NIDIA Johnson ING COUNSELOR * Telephone Encounter - Agustina Mares RN - 08/16/2020 2:09 PM CST Routing refill request to provider for review/approval because: Drug interaction warning ING COUNSELOR documented in this encounter Plan of Treatment Not on file documented as of this encounter Visit Diagnoses Diagnosis Persistent insomnia- managed by [facility] Clinic of Neurology - Dr. Cao [...] Depression Total Score: 1 07/27/20 2:05 PM HOUSING COUNSELOR documented as of this encounter Care Teams Set Up Worker Relationship Specialty Start Date End Date Kathy Glover MD [address] [place] [address] 363802 PCP - General Family Practice 06/03/15 10/05/20 Clinic - [address] 394172 PCP - General 10/06/20 11/20/21 Luh Acharya PA-C [address] [place] [address] 132182 PCP - General Family Medicine 11/21/21 01/02/23 Toma Arguello NP [address] 052357 Nurse Practitioner Nurse Practitioner Psych/Mental Health 04/11/17 Laura Us MD [address] 209427 Gastroenterology 12/20/18 Luh Acharya PA-C [address] [place] [address] 75803 Assigned PCP 06/20/20 03/31/21 Jas Bojorquez DO [address] [place] [address] 839762 Assigned PCP 04/01/21 05/21/21 Haven Buckner, ENTRY LEVEL TRUCK DRIVER [address] [place] [address] 278712 Assigned PCP 05/22/21 11/26/21 Jenise España MD Assigned Heart and Vascular Provider 07/24/21 11/17/22 Tierra Cancino PA-C [address] [place] [address] Physician Stunt Person Urology 11/17/21 Luh Acharya PA-C [address] [place] [address] 93139 Assigned PCP 11/27/21 12/31/21 Tierra Cancino PA-C [address] [place] [address] Assigned Surgical Provider 12/11/21 06/08/23 Haven Buckner, ENTRY LEVEL TRUCK DRIVER [address] [place] [address]258 Assigned PCP 01/01/22 12/22/22 Luh Acharya PA-C [address] [place] [address] Assigned PCP 12/23/22 05/18/23 Haven Buckner, ENTRY LEVEL TRUCK DRIVER [address] [place] [address] 36259 Assigned PCP 05/19/23 documented as of this encounter
--- OUTSIDE RECORDS SUMMARY | 2024-05-01 06:12 | XMS_ITS | Encounter Summary ---
Author Organization [place] Address [address] [facility] [place] [address] Care Team Providers Care Electrician Wiring Name Role Phone Kathy Glover MD Primary Care Provider Toma Arguello NP Unavailable [phone] Laura Us MD Unavailable Luh Acharya-C Unavailable + [phone] Edward Marlow MD Unavailable [phone] [facility] Primary Care Provider Jas Bojorquez DO Unavailable +[phone] Haven Buckner RECRUITMENT AND OUTREACH ASSISTANT Unavailable +-[phone] Jenise España MD Unavailable Unavailable Tierra Cancino PA-C Unavailable [phone] Luh Acharya-C Primary Care Provider + Luh Acharya-C Unavailable + [phone] Tierra Cancino-C Unavailable Haven Buckner CNP Unavailable +-[phone] Luh Acharya-C Unavailable Haven Buckner RECRUITMENT AND OUTREACH ASSISTANT Unavailable Encounter Details Date Type Department Care Team (Late st Contact Info) Description 07/23/2020 MyC Medical Advice [address] [phone] Juan Pablo Hinton RN Social History Tobacco [...] Total Score: 1 07/27/20 20 2:05 PM PROGRAM PROJECT MANAGER documented as of this encounter Care Teams Electrician Wiring Relationship Specialty Start Date End Date Kathy Glover MD [address] [place] [address] PCP - General Family Practice 06/03/15 10/05/20 Clinic - [address] [address] PCP - General 10/06/20 11/20/21 Luh Acharya PA-C [address] [place] [address] PCP - General Family Medicine 11/21/21 01/02/23 Toma Arguello NP [facility] [address] [place] [address] Nurse Practitioner Nurse Practitioner Psych/Mental Health 04/11/17 Laura Us MD [facility] [address] [place] [address] Gastroenterology 12/20/18 Luh Acharya PA-C [address] [place] [address] Assigned PCP 06/20/20 03/31/21 Edward Marlow MD [facility] [place] [address] Assigned Surgical Provider 07/09/20 07/31/20 Jas Bojorquez DO [address] [place] [address] 950712 Assigned PCP 04/01/21 05/21/21 Haven Buckner, NICOLE [address] [place] [address] 910042 Assigned PCP 05/22/21 11/26/21 Jenise España MD Assigned Heart and Vascular Provider 07/24/21 11/17/22 Tierra Cancino PA-C [address] [place] [address] Physician Supervisor Instrument Repair Urology 11/17/21 Luh Acharya PA-C [address] [place] [address], [place] [address] Assigned PCP 11/27/21 12/31/21 Tierra Cancino PA-C [address] [place] [address] Assigned Surgical Provider 12/11/21 06/08/23 Haven Buckner, NICOLE [address] [place] [address], [place] [address] Assigned PCP 01/01/22 12/22/22 Luh Acharya PA-C [address] [place] [address], [place] [address] Assigned PCP 12/23/22 05/18/23 Haven Buckner, NICOLE [address] [place] [address], [place] [address] Assigned PCP 05/19/23 documented as of this encounter
--- OUTSIDE RECORDS SUMMARY | 2024-05-01 06:12 | XMS_ITS | Encounter Summary ---
Author Organization [place] Address [address] [facility] [place] [address] Care Team Providers Care Lawn Sprinkler Installer Name Role Phone Kathy Glover MD Primary Care Provider Toma Arguello NP Unavailable [phone] Kathy Glover MD Unavailable +[phone] Kathy Glover MD Unavailable +[phone] Laura Us MD Unavailable Luh AcharyaC Unavailable + [phone] Kathy Glover MD Unavailable + [phone] Luh AcharyaC Unavailable + [phone] Edward Marlow MD Unavailable [phone] [facility] Primary Care Provider Jas Bojorquez DO Unavailable +[phone] Haven Buckner CNP Unavailable +[phone] Jenise España MD Unavailable Unavailable Tierra Cancino PA-C Unavailable [phone] Luh AcharyaC Primary Care Provider + Luh AcharyaC Unavailable +[phone] EdchandanTierra goeljose guadalupe BAUTISTAC Unavailable Haven Buckner CNP Unavailable +1-- Luh AcharyaC Unavailable +1- BucknerHaven lofton CNP Unavailable +1 Encounter Details Date Type Department Care Team (Late st Contact Info) Description 02/28/2017 MyC Medical Advice [address] [phone] Marcy Smith RN Social History Tobacco Use [...] documented as of this encounter Care Teams Lawn Sprinkler Installer Relationship Specialty Start Date End Date Kathy Glover MD [address] [place] [address] 833752 PCP - General Family Practice 06/03/15 10/05/20 Kathy Glover MD [address] [place] [address] 77789 PCP - Assigned PCP 07/25/15 11/19/[address] [address] PCP - General 10/06/20 11/20/21 Luh Acharya PA-C [address] [place] [address]63 PCP - General Family Medicine 11/21/21 01/02/23 Toma Arguello NP [address] [address] Nurse Practitioner Nurse Practitioner Psych/Mental Health 04/11/17 Kathy Glover MD [address] [place] [address] 75377 Assigned PCP 07/25/15 12/20/19 Laura Us MD [address] [place] [address] 95242 Gastroenterology 12/20/18 Luh Acharya PA-C [address] [place] [address] 50620 Assigned PCP 12/21/19 01/17/20 Kathy Glover MD [address] [place] [address] 89694 Assigned PCP 01/18/20 06/19/20 Luh Acharya PA-C [address] [place] [address] 96562 Assigned PCP 06/20/20 03/31/21 Edward Marlow MD [place] [address] Assigned Surgical Provider 07/09/20 07/31/20 Jas Bojorquez DO [address] [place] [address] 861342 Assigned PCP 04/01/21 05/21/21 Haven Buckner, NICOLE [address] [place] [address] 65515 Assigned PCP 05/22/21 11/26/21 Jenise España MD Assigned Heart and Vascular Provider 07/24/21 11/17/22 Tierra Cacnino PA-C [address] [place] [address] Physician Celebrity Manager Urology 11/17/21 Luh Acharya PA-C [address] [place] [address] 36927 Assigned PCP 11/27/21 12/31/21 Tierra Cancino PA-C [address] [place] [address] Assigned Surgical Provider 12/11/21 06/08/23 Haven Buckner CNP [address] [place] [address], [place] [address] Assigned PCP 01/01/22 12/22/22 Luh Acharya PA-C [address] [place] [address] 49083 Assigned PCP 12/23/22 05/18/23 Haven Buckner, COATING OPERATOR [address] [place] [address] 22380 Assigned PCP 05/19/23 documented as of this encounter
--- OUTSIDE RECORDS SUMMARY | 2024-05-01 06:12 | XMS_ITS | Encounter Summary ---
Author Organization [place] Address [address] [facility] [place] [address] Care Team Providers Care Deputy K 9 Name Role Phone Kathy Glover MD Primary Care Provider Toma Arguello NP Unavailable [phone] Kathy Glover MD Unavailable +[phone] Laura Us MD Unavailable Luh AcharyaC Unavailable + [phone] Kathy Glover MD Unavailable +[phone] Luh AcharyaC Unavailable + [phone] Edward Marlow MD Unavailable [phone] [facility] Primary Care Provider Jas Bojorquez DO Unavailable +[phone] Haven Buckner CNP Unavailable +[phone] Jenise España MD Unavailable Unavailable Tierra Cancino-C Unavailable Luh Acharya PA-C Primary Care Provider + Luh AcharyaC Unavailable + [phone] Tierra Cancino PA-C Unavailable Haven Buckner CNP Unavailable +[phone] Luh Acharya PA-C Unavailable +[phone] BucknerHaven lofton CNP Unavailable +1-16- Encounter Details Date Type Department Care Team (Late st Contact Info) Description 07/14/2019 [facility] [address] [phone] Renay Barlow RN Social History Tobacco Use [...] documented as of this encounter Care Teams Deputy K 9 Relationship Specialty Start Date End Date Kathy Glvoer MD [address] [place] [address] 400952 PCP - General Family Practice 06/03/15 10/05/20 Clinic - [address] [address] PCP - General 10/06/20 11/20/21 Luh Acharya PA-C [address] [place] [address] 32980 PCP - General Family Medicine 11/21/21 01/02/23 Toma Arguello NP [address] [address] Nurse Practitioner Nurse Practitioner Psych/Mental Health 04/11/17 Kathy Glover MD [address] [place] [address] 20564 Assigned PCP 07/25/15 12/20/19 Laura Us MD [address] [place] [address] 21269 Gastroenterology 12/20/18 Luh Acharya PA-C [address] [place] [address] 15013 Assigned PCP 12/21/19 01/17/20 Kathy Glover MD [address] [place] [address] 95331 Assigned PCP 01/18/20 06/19/20 Luh Acharya PA-C [address] [place] [address] 0[address]35 Assigned PCP 06/20/20 03/31/21 Edward [place] [address] Assigned Surgical Provider 07/09/20 07/31/20 Jas Bojorquez DO [address] [place] [address] 88366 Assigned PCP 04/01/21 05/21/21 Haven Buckner, VALVE INSPECTOR [address] [place] [address] 660192 Assigned PCP 05/22/21 11/26/21 Jenise España MD Assigned Heart and Vascular Provider 07/24/21 11/17/22 Tierra Cancino PA-C [address] [place] [address] Physician Associate Merchandiser Urology 11/17/21 Luh Acharya PA-C [address] [place] [address] 18548 Assigned PCP 11/27/21 12/31/21 Tierra Cancino PA-C [address] [facility] [address] [place] [address] Assigned Surgical Provider 12/11/21 06/08/23 Haven Buckner, NICOLE [address] [place] [address] Assigned PCP 01/01/22 12/22/22 Luh Acharya PA-C [address] [place] [address] Assigned PCP 12/23/22 05/18/23 Haven Buckner, VALVE INSPECTOR [address] [place] [address] 15376 Assigned PCP 05/19/23 documented as of this encounter
--- OUTSIDE RECORDS SUMMARY | 2024-05-01 06:12 | XMS_ITS | Encounter Summary ---
Author Organization [place] Address [address] [facility] [place] [address] Care Team Providers Care Food Analyst Name Role Phone Kathy Glover MD Primary Care Provider Toma Arguello NP Unavailable [phone] Kathy Glover MD Unavailable +[phone] Laura Us MD Unavailable Luh AcharyaC Unavailable + [phone] Kathy Glover MD Unavailable +[phone] Luh AcharyaC Unavailable + [phone] Edward Marlow MD Unavailable [phone] [facility] Primary Care Provider Jas Bojorquez DO Unavailable +[phone] Haven Buckner CNP Unavailable +[phone] Jenise España MD Unavailable Unavailable Tierra Cancino-C Unavailable +[phone] Luh Acharya PA-C Primary Care Provider + Luh AcharyaC Unavailable +[phone] Tierra Cancino PA-C Unavailable Haven Buckner CNP Unavailable +1-90-2 Luh Acharya PA-C Unavailable +[phone] Haven Buckner CNP Unavailable +1-54- Encounter Details Date Type Department Care Team (Late st Contact Info) Description 01/08/2019 [facility] [address] [phone] Marcy Smith RN Social History Tobacco Use [...] Total Score: 5 11/22/19 19 7:06 AM COOK MAYONNAISE documented as of this encounter Care Teams Food Analyst Relationship Specialty Start Date End Date Kathy Glover MD [address] [place] [address] 724862 PCP - General Family Practice 06/03/15 10/05/20 Clinic - [address] [address] PCP - General 10/06/20 11/20/21 Luh Acharya PA-C [address] [place] [address] PCP - General Family Medicine 11/21/21 01/02/23 Toma Arguello CANDLE WICKER [address] [address] Nurse Practitioner Nurse Practitioner Psych/Mental Health 04/11/17 Kathy Glover MD [address] [place] [address]225[address] Assigned PCP 07/25/15 12/20/19 Laura Us MD [address] [place] [address] Gastroenterology 12/20/18 Luh Acharya PA-C [address] [place] [address] 43513 Assigned PCP 12/21/19 01/17/20 Kathy Glover MD [address] [place] [address] 40392 Assigned PCP 01/18/20 06/19/20 Luh Acharya PA-C [address] [place] [address] 19393 Assigned PCP 06/20/20 03/31/21 Edward Marlow MD [address] [place] [address] Assigned Surgical Provider 07/09/20 07/31/20 Jas Bojorquez DO [address] [place] [address] 927152 Assigned PCP 04/01/21 05/21/21 Haven Buckner, WAX ROOM SUPERVISOR [address] [place] [address] 234742 Assigned PCP 05/22/21 11/26/21 Jenise España MD Assigned Heart and Vascular Provider 07/24/21 11/17/22 Tierra Cancino PA-C [address] [place] [address] Physician Orthopedic Nurse Practitioner Urology 11/17/21 Luh Acharya PA-C [address] [place] [address] 40732 Assigned PCP 11/27/21 12/31/21 Tierra Cancino PA-C [address] [facility] [address] [place] [address] Assigned Surgical Provider 12/11/21 06/08/23 Haven Buckner, NICOLE [address] [place] [address] Assigned PCP 01/01/22 12/22/22 Luh Acharya PA-C [address] [facility] [place] [place] [address] Assigned PCP 12/23/22 05/18/23 Haven Buckner, WAX ROOM SUPERVISOR [address] [facility] [place] [address] Assigned PCP 05/19/23 documented as of this encounter
--- OUTSIDE RECORDS SUMMARY | 2024-05-01 06:12 | XMS_ITS | Encounter Summary ---
Author Organization [place] Address [address] [facility] [place] [address] Care Team Providers Care Patient Escort Name Role Phone Kathy Glover MD Primary Care Provider Toma Arguello NP Unavailable [phone] Kathy Glover MD Unavailable [phone] Kathy Glover MD Unavailable +[phone] Laura Us MD Unavailable Luh AcharyaC Unavailable + [phone] Kathy Glover MD Unavailable + -[phone] Luh AcharyaC Unavailable + [phone] Edward Marlow MD Unavailable [phone] [facility] Primary Care Provider Jas Bojorquez DO Unavailable +[phone] Haven Buckner CNP Unavailable +[phone] Jenise España MD Unavailable Unavailable Tierra Cancino PA-C Unavailable Luh AcharyaC Primary Care Provider + Luh AcharyaC Unavailable +[phone] ShaniTierra goel Magda BAUTISTAC Unavailable Haven Buckner CNP Unavailable +1-2-2 Luh Acharya-C Unavailable +[phone] BucknerHaven lofton CNP Unavailable [phone] Reason for Visit * Reason Onset Date Comments Call To Schedule Appointment 07/29/2018 Lef t message to schedule DEXA Encounter Details Date Type Department Care Team (Late st Contact Info) Description 07/29/[address] [place] [address] Kathy Glover MD [address] [place] [address] Call To Schedule Appointment (Left [...] PM CST Left message to schedule DEXA LEATER documented in this encounter Plan of Treatment [...] documented as of this encounter Care Teams Patient Escort Relationship Specialty Start Date End Date Kathy Glover MD [address] [place] [address] 61087 PCP - General Family Practice 06/03/15 10/05/20 Kathy Glover MD [address] [place] [address] 89051 PCP - Assigned PCP 07/25/15 11/19/[address] [address] PCP - General 10/06/20 11/20/21 Luh Acharya PA-C [address] [place] [address] 10137 PCP - General Family Medicine 11/21/21 01/02/23 Toma Arguello NP [address] [address] Nurse Practitioner Nurse Practitioner Psych/Mental Health 04/11/17 Kathy Glover MD [address] [place] [address] 30062 Assigned PCP 07/25/15 12/20/19 Laura Us MD [address] [place] [address] 66830 Gastroenterology 12/20/18 Luh Acharya PA-C [address] [place] [address] 92638 Assigned PCP 12/21/19 01/17/20 Kathy Glover MD [address] [place] [address] [phone] Assigned PCP 01/18/20 06/19/20 Luh Acharya PA-C [address] [place] [address] 779772 Assigned PCP 06/20/20 03/31/21 [place] [address] Assigned Surgical Provider 07/09/20 07/31/20 Jas Bojorquez DO [address] [place] [address] [phone] Assigned PCP 04/01/21 05/21/21 Haven Buckner, HYDROELECTRIC POWERPLANT SUPERVISOR [address] [place] [address] 865372 Assigned PCP 05/22/21 11/26/21 Jenise España MD Assigned Heart and Vascular Provider 07/24/21 11/17/22 Tierra Cancino PA-C [address] [facility] [place] [address] Physician Dispatcher Bus And Trolley Urology 11/17/21 Luh Acharya PA-C [address] [place] [address] [place] [address] Assigned PCP 11/27/21 12/31/21 Tierra Cancino PA-C [address] [place] [place] [address] Assigned Surgical Provider 12/11/21 06/08/23 Haven Buckner, HYDROELECTRIC POWERPLANT SUPERVISOR [address] [place] [address], [place] [address] Assigned PCP 01/01/22 12/22/22 Luh Acharya PA-C [address] [place] [address], [place] [address] Assigned PCP 12/23/22 05/18/23 Haven Buckner, HYDROELECTRIC POWERPLANT SUPERVISOR [address] [place] [address], [place] [address] Assigned PCP 05/19/23 documented as of this encounter
--- OUTSIDE RECORDS SUMMARY | 2024-05-01 06:12 | XMS_ITS | Encounter Summary ---
Author Organization [place] Address [address] [facility] [place] [address] Care Team Providers Care Kitchen Operator Name Role Phone Kathy Glover MD Primary Care Provider Toma Arguello NP Unavailable [phone] Laura Us MD Unavailable Luh Acharya-C Unavailable + [phone] Kathy Glover MD Unavailable +[phone] Luh AcharyaC Unavailable + [phone] Edward Marlow MD Unavailable [phone] [facility] Primary Care [...] Team (Late st Contact Info) Description 01/09/2020 [facility] [place] [address] [phone] Amber Marc Social History Tobacco Use Types [...] documented as of this encounter Care Teams Kitchen Operator Relationship Specialty Start Date End Date Kathy Glover MD [address] [place] [address] 528362 PCP - General Family Practice 06/03/15 10/05/20 Clinic - [address] 384902 PCP - General 10/06/20 11/20/21 Luh Acharya PA-C [address] [place] [address] PCP - General Family Medicine 11/21/21 01/02/23 Toma Arguello NP [address] [address] Nurse Practitioner Nurse Practitioner Psych/Mental Health 04/11/17 Laura Us MD [address] [address] Gastroenterology 12/20/18 Luh Acharya PA-C [address] [place] [address] 20806 Assigned PCP 12/21/19 01/17/20 Kathy Glover MD [address] [place] [address] 51082 Assigned PCP 01/18/20 06/19/20 Luh Acharya PA-C [address] [place] [address] 89045 Assigned PCP 06/20/20 03/31/21 Edward Marlow MD [address] [place] [address] Assigned Surgical Provider 07/09/20 07/31/20 Jas Bojorquez DO [address] [place] [address] 46590 Assigned PCP 04/01/21 05/21/21 Haven Buckner, NICOLE [address] [place] [address], [place] [address] Assigned PCP 05/22/21 11/26/21 Jenise España MD Assigned Heart and Vascular Provider 07/24/21 11/17/22 Tierra Cancino PA-C [address] [place] [address] Physician Pecan Sheller Urology 11/17/21 Luh Acharya PA-C [address] [place] [address] Assigned PCP 11/27/21 12/31/21 Tierra Cancino PA-C [address] [place] [address] Assigned Surgical Provider 12/11/21 06/08/23 Haven Buckner CNP [address] [place] [address], [place] [address] Assigned PCP 01/01/22 12/22/22 Luh Acharya PA-C [address] [place] [address], [place] [address] Assigned PCP 12/23/22 05/18/23 Haven Buckner, NICOLE [address] [place] [address] Assigned PCP 05/19/23 documented as of this encounter
--- OUTSIDE RECORDS SUMMARY | 2024-05-01 06:12 | XMS_ITS | Encounter Summary ---
Author Organization [place] Address [address] [facility] [place] [address] Care Team Providers Care Product/Device Technologist Name Role Phone Kathy Glover MD Primary Care Provider Toma Arguello NP Unavailable [phone] Laura Us MD Unavailable Kathy Glover MD Unavailable +[phone] Luh AcharyaC Unavailable + [phone] Edward Marlow MD Unavailable [phone] [facility] Primary Care Provider Jas Bojorquez DO Unavailable +[phone] Haven Buckner CNP Unavailable +-[phone] Jenise España MD Unavailable Unavailable Tierra Cancino-C Unavailable [phone] Luh Acharya PA-C Primary Care Provider + Luh Acharya PA-C Unavailable + [phone] Tierra Cancino-C Unavailable Haven Buckner CNP Unavailable +1- Luh Acharya PA-C Unavailable +[phone] Haven Buckner CNP Unavailable [phone] Encounter Details Date Type Department Care Team (Late st Contact Info) Description 04/14/2020 MyC Medical Advice [address] [phone] Kathy Glover MD [address] [place] [address] [phone] Social History Tobacco Use Types Packs/Day Years [...] documented as of this encounter Care Teams Product/Device Technologist Relationship Specialty Start Date End Date Kathy Glover MD [address] [place] [address] 193162 PCP - General Family Practice 06/03/15 10/05/20 Clinic - [address] [address] PCP - General 10/06/20 11/20/21 Luh Acharya PA-C [address] [place] [address] PCP - General Family Medicine 11/21/21 01/02/23 Toma Arguello NP [address] [address] Nurse Practitioner Nurse Practitioner Psych/Mental Health 04/11/17 Laura Us MD [address] [address] Gastroenterology 12/20/18 Kathy Glover MD [address] [place] [address] Assigned PCP 01/18/20 06/19/20 Luh Acharya PA-C [address] [place] [address]555 Assigned PCP 06/20/20 03/31/21 Edward Marlow MD [address] [place] [address] Assigned Surgical Provider 07/09/20 07/31/20 Jas Bojorquez DO [address] [place] [address] 28683 Assigned PCP 04/01/21 05/21/21 Haven Buckner, WEB APPLICATIONS PROGRAMMER [address] [place] [address], [place] [address] Assigned PCP 05/22/21 11/26/21 Jenise España MD Assigned Heart and Vascular Provider 07/24/21 11/17/22 Tierra Cancino PA-C [address] [place] [address] Physician Dimension Quarry Supervisor Urology 11/17/21 Luh Acharya PA-C [address] [place] [address], [place] [address] Assigned PCP 11/27/21 12/31/21 Tierra Cancino PA-C [address] [place] [address] Assigned Surgical Provider 12/11/21 06/08/23 Haven Buckner CNP [address] [place] [address], [place] [address] Assigned PCP 01/01/22 12/22/22 Luh Acharya PA-C [address] [place] [address], [place] [address] Assigned PCP 12/23/22 05/18/23 Haven Buckner CNP [address] [place] [address], [place] [address] Assigned PCP 05/19/23 documented as of this encounter
--- OUTSIDE RECORDS SUMMARY | 2024-05-01 06:12 | XMS_ITS | Encounter Summary ---
Author Organization [place] Address [address] [facility] [place] [address] Care Team Providers Care Territory Outside Sales Manager Name Role Phone Kathy Glover MD Primary Care Provider Toma Arguello NP Unavailable [phone] Kathy Glover MD Unavailable +[phone] Kathy Glover MD Unavailable +[phone] Laura Us MD Unavailable Luh AcharyaC Unavailable + [phone] Kathy Glover MD Unavailable + [phone] Luh AcharyaC Unavailable + [phone] Edward Marlow MD Unavailable [phone] [facility] Primary Care Provider Jas Bojorquez DO Unavailable +[phone] Haven Buckner CNP Unavailable +2-2 [phone] Jenise España MD Unavailable Unavailable Tierra Cancino PA-C Unavailable Luh AcharyaC Primary Care Provider + Luh Acharya-C Unavailable [phone] Tierra Cancinojose guadalupe BAUTISTAC Unavailable BucknerHaven lofton CNP Unavailable +1--2 AcharyaLuh jerome-C Unavailable +1- BuckneraHven lofton CNP Unavailable +1-2 Reason for Visit * Reason Comments Medication Refill Encounter Details Date Type Department Care Team (Late st Contact Info) Description 06/27/2018 Refill [facility] Mental Health & Addiction [facility] [address] [facility] [address] [place] [address] [place] [address] [place], [place] [phone] Medication Refill Social History Tobacco Use Types [...] documented as of this encounter Care Teams Territory Outside Sales Manager Relationship Specialty [place] [address] [place] [address] PCP - General Family Practice 06/03/15 10/05/20 Kathy Glover MD [address] [place] [address]016 PCP - Assigned PCP 07/25/15 11/19/[address] 720452 PCP - General 10/06/20 11/20/21 Luh Acharya PA-C [address] [place] [address] 936342 PCP - General Family Medicine 11/21/21 01/02/23 Toma Arguello NP [address] [address] Nurse Practitioner Nurse Practitioner Psych/Mental Health 04/11/17 Kathy Glover MD [address] [place] [address] 95858 Assigned PCP 07/25/15 12/20/19 Laura Us MD [address] [place] [address]707 Gastroenterology 12/20/18 Luh Acharya PA-C [address] [place] [address] 38982 Assigned PCP 12/21/19 01/17/20 Kathy Glover MD [address] [place] [address]61 Assigned PCP 01/18/20 06/19/20 Luh Acharya PA-C [address] [place] [address] 14760 Assigned PCP 06/20/20 03/31/21 [place] [address] Assigned Surgical Provider 07/09/20 07/31/20 Jas Bojorquez DO [address] [place] [address]4630 Assigned PCP 04/01/21 05/21/21 Haven Buckner CNP [address] [place] [address] 85798 Assigned PCP 05/22/21 11/26/21 Jenise España MD Assigned Heart and Vascular Provider 07/24/21 11/17/22 Tierra Cancino PA-C [address] [place] [address] Physician Integrity Analyst Urology 11/17/21 Luh Acharya PA-C [address] [place] [address]1653 Assigned PCP 11/27/21 12/31/21 Tierra Cancino PA-C [address] [place] [address] Assigned Surgical Provider 12/11/21 06/08/23 Haven Buckner, NICOLE [address] [place] [address] 30759 Assigned PCP 01/01/22 12/22/22 Luh Acharya PA-C [address] [place] [address] 92748 Assigned PCP 12/23/22 05/18/23 Haven Buckner, NICOLE [address] [place] [address] 33800 Assigned PCP 05/19/23 documented as of this encounter
--- OUTSIDE RECORDS SUMMARY | 2024-05-01 06:12 | XMS_ITS | Encounter Summary ---
Author Organization [place] Address [address] [facility] [place] [address] Care Team Providers Care Hand Cloth Examiner Name Role Phone Kathy Glover MD Primary Care Provider Toma Arguello NP Unavailable [phone] Laura Us MD Unavailable Luh Acharya-C Unavailable + [phone] [facility] Primary Care Provider Jas Bojorquez DO Unavailable +[phone] BucknerHaven lofton CONCIERGE RECEPTIONIST Unavailable +-2 [phone] Jenise España MD Unavailable Unavailable Tierra Cancino-C Unavailable [phone] Luh Acharya-C Primary Care Provider + Luh Acharya-C Unavailable + [phone] Tierra Cancino-C Unavailable Haven Buckner CONCIERGE RECEPTIONIST Unavailable +[phone] Luh Acharya-C Unavailable +1 [phone] Haven Buckner CONCIERGE RECEPTIONIST Unavailable +[phone] Encounter Details Date Type Department Care Team (Late st Contact Info) Description 08/18/2020 MyC Medical Advice [address] [phone] Raina Thomas Social History Tobacco Use Types [...] Total Score: 1 07/27/20 20 2:05 PM PRODUCTION MAINTENANCE MECHANIC documented as of this encounter Care Teams Hand Cloth Examiner Relationship Specialty Start Date End Date Kathy Glover MD [address] [place] [address] PCP - General Family Practice 06/03/15 10/05/20 Clinic - [address] [address] PCP - General 10/06/20 11/20/21 Luh Acharya PA-C [address] [place] [address] PCP - General Family Medicine 11/21/21 01/02/23 Toma Arguello NP [address] [address] Nurse Practitioner Nurse Practitioner Psych/Mental Health 04/11/17 Laura Us MD [address] [address] Gastroenterology 12/20/18 Luh Acharya PA-C [address] [place] [address] 399652 Assigned PCP 06/20/20 03/31/21 Jas Bojorquez DO [address] [place] [address] [phone] Assigned PCP 04/01/21 05/21/21 Haven Buckner, NICOLE [address] [place] [address] 148932 Assigned PCP 05/22/21 11/26/21 Jenise España MD Assigned Heart and Vascular Provider 07/24/21 11/17/22 Tierra Cancino PA-C [address] [place] [place], [place] 2675[address] Physician Spinning Bath Patroller Urology 11/17/21 Luh Acharya PA-C [address] [place] [address] 335042 Assigned PCP 11/27/21 12/31/21 Tierra Cancino PA-C [address] [place] [address] Assigned Surgical Provider 12/11/21 06/08/23 Haven Buckner, CONCIERGE RECEPTIONIST [address] [place] [address] Assigned PCP 01/01/22 12/22/22 Luh Acharya PA-C [address] [place] [address]78 Assigned PCP 12/23/22 05/18/23 Haven Buckner, CONCIERGE RECEPTIONIST [address] [place] [address]156 Assigned PCP 05/19/23 documented as of this encounter
--- OUTSIDE RECORDS SUMMARY | 2024-05-01 06:12 | XMS_ITS | Encounter Summary ---
Author Organization [place] Address [address] [facility] [place] [address] Care Team Providers Care Liquid Yeast Supervisor Name Role Phone Kathy Glover MD Primary Care Provider Toma Arguello NP Unavailable [phone] Kathy Glover MD Unavailable +[phone] Kathy Glover MD Unavailable +[phone] Laura Us MD Unavailable Luh AcharyaC Unavailable + [phone] Kathy Glover MD Unavailable + [phone] Luh AcharyaC Unavailable + [phone] Edward Marlow MD Unavailable [phone] [facility] Primary Care Provider Jas Bojorquez DO Unavailable +[phone] Haven Buckner CNP Unavailable +2-2 [phone] Jenise España MD Unavailable Unavailable Tierra Cancino PA-C Unavailable Luh AcharyaC Primary Care Provider + Luh AcharyaC Unavailable [phone] Tierra Cancinojose guadalupe BAUTISTAC Unavailable Haven Buckner CNP Unavailable +1--2 Luh AcharyaC Unavailable +1- BucknerHaven lofton CNP Unavailable +1- Reason for Referral * Diagnostic Imaging MRI - Closed Specialty Diagnoses / Procedures Referred By Contlidia t Referred To Contact Radiology. Diagnoses Complex cyst of right ovary Procedures MR Pelvis (SALOON KEEPER) wo & w Contrast MR Pelvis (SALOON KEEPER) w Contrast Kathy Glover MD [address] [place] [address] Mri [address] [place] [address] Referral ID Status Reason Start Date Expiration Date Visits Re quested Visits Authorized [id number] Closed 08/19/2018 08/19/2019 1 1 GER TESTING Reason for Visit * Reason Onset Date Comments MyChart Communication 08/15/2018 Re: MRI re sults back specialist Encounter Details Date Type Department Care Team (Late st Contact Info) Description 08/15/2018 MyC Medical Advice [address] [place] [address] Kathy Glover MD [address] [place] [address] MyChart Communication (Re: MRI results bennett... [...] Doan RN - 08/19/2018 9:42 AM CST PAK message sent to patient with recommendation below. TAYLA Simmosn, RN, PHN [facility] [phone] GER TESTING * Telephone Encounter - Kathy Glover MD - 08/19/2018 6:19 AM MANAGER TESTING Possible hemorrhagic right adnexal cysts noted on MRI lumbar spine - radiology recommended MR of pelvis to better discern. Ordered. Please inform patient. GER TESTING * Telephone Encounter - Coty Doan RN - 08/15/2018 12:56 PM MANAGER TESTING Forwarded to . Please review patient's Talentodayhart message and advise. Coty Doan RN, BS, PHN GER TESTING documented in this encounter Plan of Treatment Not on file documented as of this encounter Results * MR Pelvis (SALOON KEEPER) wo & w Contrast (08/27/2018 8:13 AM MANAGER TESTING) Anatomical Region Laterality Modality Abdomen/Pelvis, SUBRAD MR BODY, UMP MR BODY, RAD MR Magnetic Resonance Impressions 08/27/2018 4:09 PM MANAGER TESTING IMPRESSION: 1. Grouping of cysts at the right upper pelvis may arise from the right ovary versus adnexa. Two of these have elevated T1 signal suggesting hemorrhagic cysts while another is a small simple cyst. 2. The uterus is absent. The left ovary is not visualized for assessment. 3. A few scattered colonic diverticula. JAXON STAPLES MD Narrative 08/27/2018 4:09 PM MANAGER TESTING MR PELVIS (SALOON KEEPER) WITH AND WITHOUT CONTRAST August 27, 2018 8:13 AM HISTORY: Complex cysts near right adnexa noted on MRI lumbar spine. Rule out hemorrhagic/endometriosis. TECHNIQUE: Multiplanar, multiecho MRI was performed using T1, T2, and in- and uuh-wo-ahoqi imaging. Pre- and postcontrast T1 images were [...] Jaxon Staples MD - 08/27/2018 MR PELVIS (SALOON KEEPER) WITH AND WITHOUT CONTRAST August 27, 2018 8:13 AM HISTORY: Complex cysts near right adnexa noted on MRI lumbar spine. Rule out hemorrhagic/endometriosis. TECHNIQUE: Multiplanar, multiecho MRI was performed using T1, T2, and in- and tsw-jp-[id number] imaging. Pre- and postcontrast T1 images were [...] documented as of this encounter Care Teams Liquid Yeast Supervisor Relationship Specialty Start Date End Date Kathy Glover MD [address] [place] [address] [phone] PCP - General Family Practice 06/03/15 10/05/20 Kathy Glover MD [address] [place] [address] [phone] PCP - Assigned PCP 07/25/15 11/19/[address] [phone] PCP - General 10/06/20 11/20/21 Luh Acharya PA-C [address] [place] [address] [phone] PCP - General Family Medicine 11/21/21 01/02/23 Toma Arguello NP [address] 584207 Nurse Practitioner Nurse Practitioner Psych/Mental Health 04/11/17 Kathy Glover MD [address] [place] [address] Assigned PCP 07/25/15 12/20/19 Laura Us MD [address] [place] [address] Gastroenterology 12/20/18 Luh Acharya PA-C [address] [place] [address] 43076 Assigned PCP 12/21/19 01/17/20 Kathy Glover MD [address] [place] [address] 00528 Assigned PCP 01/18/20 06/19/20 Luh Acharya PA-C [address] [place] [address] 57956 Assigned PCP 06/20/20 03/31/21 Edward Marlow MD [address] [place] [address] 12897 Assigned Surgical Provider 07/09/20 07/31/20 Jas Bojorquez DO [address] [place] [address] 66832 Assigned PCP 04/01/21 05/21/21 Haven Buckner, PUBLIC SAFETY DIRECTOR [address] [place] [address] [place] [address] Assigned PCP 05/22/21 11/26/21 Jenise España MD Assigned Heart and Vascular Provider 07/24/21 11/17/22 Tierra Cancino PA-C [address] [place] [address] Physician Admitting Counselor Urology 11/17/21 Luh Acharya PA-C [address] [place] [address] Assigned PCP 11/27/21 12/31/21 Tierra Cancino PA-C [address] [place] [address] Assigned Surgical Provider 12/11/21 06/08/23 Haven Buckner CNP [address] [place] [address] Assigned PCP 01/01/22 12/22/22 Luh Acharya PA-C [address] [place] [address]46 Assigned PCP 12/23/22 05/18/23 Haven Buckner CNP [address] [place] [address]23 Assigned PCP 05/19/23 documented as of this encounter
--- OUTSIDE RECORDS SUMMARY | 2024-05-01 06:12 | XMS_ITS | Encounter Summary ---
Author Organization [place] Address [address] [facility] [place] [address] Care Team Providers Care Lottery Office Manager Name Role Phone Kathy Glover MD Primary Care Provider Toma Arguello NP Unavailable [phone] Kathy Glover MD Unavailable +[phone] Kathy Glover MD Unavailable +[phone] Laura Us MD Unavailable Luh AcharyaC Unavailable + [phone] Kathy Glover MD Unavailable + [phone] Luh AcharyaC Unavailable + [phone] Edward Marlow MD Unavailable [phone] [facility] Primary Care Provider Jas Bojorquez DO Unavailable +[phone] Haven Buckner CNP Unavailable +2-2 [phone] Jenise España MD Unavailable Unavailable Tierra Cancino PA-C Unavailable Luh AcharyaC Primary Care Provider + Luh AcharyaC Unavailable +1-- [phone] Tierra Cancinovandana BAUTISTAC Unavailable BucknerHaven lofton Meaghan CNP Unavailable +12-2 Luh AcharyaC Unavailable +1-- [phone] BucknerHaven lofton CNP Unavailable +12-2 Reason for Visit * Reason Comments Medication Refill Encounter Details Date Type Department Care Team (Late st Contact Info) Description 03/14/2018 Refill [facility] [address] [facility] [address] [place] [address] [place] [address] [place] [address] Medication Refill Social History Tobacco Use Types [...] documented as of this encounter Care Teams Lottery Office Manager Relationship Specialty Start Date End Date Kathy Glover MD [address] [place] [address] PCP - General Family Practice 06/03/15 10/05/20 Kathy Glover MD [address] [place] [address] [id number] PCP - Assigned PCP 07/25/15 11/19/[address] 214502 PCP - General 10/06/20 11/20/21 Luh Acharya PA-C [address] [place] [address] 400632 PCP - General Family Medicine 11/21/21 01/02/23 Toma Arguello NP [address] [address] Nurse Practitioner Nurse Practitioner Psych/Mental Health 04/11/17 Kathy Glover MD [address] [place] [address] 04926 Assigned PCP 07/25/15 12/20/19 Laura Us MD [address] [place] [address] 78407 Gastroenterology 12/20/18 Luh Acharya PA-C [address] [place] [address] 832072 Assigned PCP 12/21/19 01/17/20 Kathy Glover MD [address] [place] [address] 137032 Assigned PCP 01/18/20 06/19/20 Luh Acharya PA-C [address] [place] [address] 615042 Assigned PCP 06/20/20 03/31/21 Edward Marlow MD [address] [place], [place] 939547 Assigned Surgical Provider 07/09/20 07/31/20 Jas Bojorquez DO [address] [place] [address] 700182 Assigned PCP 04/01/21 05/21/21 Haven Buckner, EXECUTIVE ADMIN [address] [place] [address] 938932 Assigned PCP 05/22/21 11/26/21 Jenise España MD Assigned Heart and Vascular Provider 07/24/21 11/17/22 Tierra Cancino PA-C [address] [address] Physician Cigarette Lighter Repairer Urology 11/17/21 Luh Acharya PA-C [address] [place] [address] Assigned PCP 11/27/21 12/31/21 Tierra Cancino PA-C [address] [place] [address] Assigned Surgical Provider 12/11/21 06/08/23 Haven Buckner, EXECUTIVE ADMIN [facility] [place] [address] Assigned PCP 01/01/22 12/22/22 Luh Acharya PA-C [address] [place] [address], [place] [address] Assigned PCP 12/23/22 05/18/23 Haven Buckner, EXECUTIVE ADMIN [address] [place] [address], [place] [address] Assigned PCP 05/19/23 documented as of this encounter
--- OUTSIDE RECORDS SUMMARY | 2024-05-01 06:12 | XMS_ITS | Encounter Summary ---
Author Organization [place] Address [address] [facility] [place] [address] Care Team Providers Care Transitional Nurse Name Role Phone Kathy Glover MD Primary Care Provider Toma Arguello NP Unavailable [phone] Kathy Glover MD Unavailable +[phone] Kathy Glover MD Unavailable +[phone] Laura Us MD Unavailable Luh AcharyaC Unavailable + [phone] Kathy Glover MD Unavailable + -[phone] Luh AcharyaC Unavailable + [phone] Edward Marlow MD Unavailable [phone] [facility] Primary Care Provider Jas Bojorquez DO Unavailable +[phone] Haven Buckner CNP Unavailable +2-2 [phone] Jenise España MD Unavailable Unavailable Tierra Cancino PA-C Unavailable Luh AcharyaC Primary Care Provider + Luh Acharya PA-C Unavailable +[phone] ShaniTierra goeljose guadalupe HUFF Unavailable +[phone] Haven Buckner CNP Unavailable +[phone] Luh Acharya PA-C Unavailable +[phone] BucknerHaven lofton CNP Unavailable +145-2 Reason for Visit * Reason Comments Medication Refill Gabapentin Encounter Details Date Type Department Care Team (Late st Contact Info) Description 03/05/[address] [address] Kathy Glover MD [address] [place] [address] Medication Refill (Gabapentin) Social History [...] # refills: 0 Last Office Visit with [facility] primary care provider: 02/22/17 (evisit) 01/05/17 (in- office visit) Clinic visit frequency required: Q 6 months Future Office visit: Controlled substance agreement on file: Yes: Date 01/05/17. Processing: Fax Rx to [facility] pharmacy TERMITE RENEWAL INSPECTOR checked in past 6 months? No, route [...] documented as of this encounter Care Teams Transitional Nurse Relationship Specialty Start Date End Date Kathy Glover MD [address] [place] [address] PCP - General Family Practice 06/03/15 10/05/20 Kathy Glover MD [address] [place] [address] PCP - Assigned PCP 07/25/15 11/19/[address] 110812 PCP - General 10/06/20 11/20/21 Luh Acharya PA-C [address] [place] [address] 487762 PCP - General Family Medicine 11/21/21 01/02/23 Toma Arguello NP [address] [address] Nurse Practitioner Nurse Practitioner Psych/Mental Health 04/11/17 Kathy Glover MD [address] [place] [address] [place] [address] Assigned PCP 07/25/15 12/20/19 Laura Us MD [address] [place] [address], [place] [address] Gastroenterology 12/20/18 Luh Acharya PA-C [address] [place] [address], [place] [address] Assigned PCP 12/21/19 01/17/20 Kathy Glover MD [address] [place] [address] Assigned PCP 01/18/20 06/19/20 Luh Acharya PA-C [address] [place] [address], [place] [address] Assigned PCP 06/20/20 03/31/21 Edward Marlow [place] [address] Assigned Surgical Provider 07/09/20 07/31/20 Jas Bojorquez DO [address] [place] [address], [place] [address] Assigned PCP 04/01/21 05/21/21 Haven Buckner, COMMUNICATIONS CONSULTANT [address] [place] [address]19 Assigned PCP 05/22/21 11/26/21 Jenise España MD Assigned Heart and Vascular Provider 07/24/21 11/17/22 Tierra Cancino PA-C [address] [place] [address] Physician Deputy Coroner Investigator Urology 11/17/21 Luh Acharya PA-C [address] [place] [address] Assigned PCP 11/27/21 12/31/21 Tierra Cancino PA-C [address] [place] [address] Assigned Surgical Provider 12/11/21 06/08/23 Haven Buckner, NICOLE [address] [place] [address] Assigned PCP 01/01/22 12/22/22 Luh Acharya PA-C [address] [place] [address] 549[address] Assigned PCP 12/23/22 05/18/23 Haven Buckner, COMMUNICATIONS CONSULTANT [address] [place] [address] Assigned PCP 05/19/23 documented as of this encounter
--- OUTSIDE RECORDS SUMMARY | 2024-05-01 06:12 | XMS_ITS | Encounter Summary ---
Author Organization [place] Address [address] [facility] [place] [address] Care Team Providers Care Clinical Informatics Spec Name Role Phone Kathy Glover MD Primary Care Provider Toma Arguello NP Unavailable [phone] Kathy Glover MD Unavailable +[phone] Laura Us MD Unavailable Luh AcharyaC Unavailable + [phone] Kathy Glover MD Unavailable +[phone] Luh AcharyaC Unavailable + [phone] Edward Marlow MD Unavailable +[phone] [facility] Primary Care Provider Jas Bojorquez DO Unavailable +-[phone] Haven Buckner CNP Unavailable +12-2 [phone] Jenise España MD Unavailable Unavailable Tierra Cancino-C Unavailable +[phone] Luh Acharya PA-C Primary Care Provider + Luh AcharyaC Unavailable Tierra Cancino PA-C Unavailable Haven Buckner CNP Unavailable +[phone] Marck Luhkirsty Mcconnell PA-C Unavailable [phone] BucknerHaven lofton CNP Unavailable +-2 Reason for Visit * Reason Onset Date Comments MyChart Communication 01/09/2019 fibromyalg ia testing Encounter Details Date Type Department Care Team (Latest Contact Info) Description 01/09/2019 MyC Medical Advice [address] [address] Marcy Smith, KARMEN MyChart Communication [...] 2:36 PM CDT Noted. Dona Smith RN [place] Triage documented in this encounter Plan of [...] Total Score: 5 11/22/19 19 7:06 AM MUNICIPAL SERVICES MANAGER documented as of this encounter Care Teams Clinical Informatics Spec Relationship Specialty Start Date End Date Kathy Glover MD [address] [place] [address] PCP - General Family Practice 06/03/15 10/05/[address] [phone] PCP - General 10/06/20 11/20/21 Luh Acharya PA-C [address] [place] [address] 429162 PCP - General Family Medicine 11/21/21 01/02/23 Toma Arguello NP [address] [address] Nurse Practitioner Nurse Practitioner Psych/Mental Health 04/11/17 Kathy Glover MD [address] [place] [address] Assigned PCP 07/25/15 12/20/19 Laura Us MD [address] [place] [address]51 Gastroenterology 12/20/18 Luh Acharya PA-C [address] [place] [address] 50230 Assigned PCP 12/21/19 01/17/20 Kathy Glover MD [address] [place] [address]26 Assigned PCP 01/18/20 06/19/20 Luh Acharya PA-C [address] [place] [address] 7[address] Assigned PCP 06/20/20 03/31/21 [place] [address] Assigned Surgical Provider 07/09/20 07/31/20 Jas Bojorquez DO [address] [place] [address] Assigned PCP 04/01/21 05/21/21 Haven Buckner CNP [address] [place] [address] 95256 Assigned PCP 05/22/21 11/26/21 Jenise España MD Assigned Heart and Vascular Provider 07/24/21 11/17/22 Tierra Cancino PA-C [address] [place] [address] Physician Merchandise Clerk Urology 11/17/21 Luh Acharya PA-C [address] [place] [address] 467[address] Assigned PCP 11/27/21 12/31/21 Tierra Cancino PA-C [address] [place] [address] Assigned Surgical Provider 12/11/21 06/08/23 Haven Buckner, NICOLE [address] [place] [address] 85[address] Assigned PCP 01/01/22 12/22/22 Luh Acharya PA-C [address] [place] [address] 6[address]12 Assigned PCP 12/23/22 05/18/23 Haven Buckner, NICOLE [address] [place] [address] 9[address]43 Assigned PCP 05/19/23 documented as of this encounter
--- OUTSIDE RECORDS SUMMARY | 2024-05-01 06:13 | XMS_ITS | Encounter Summary ---
Author Organization [place] Address [address] [facility] [place] [address] Care Team Providers Care Sketcher Name Role Phone Kathy Glover MD Primary Care Provider Toma Arguello NP Unavailable Kathy Glover MD Unavailable [phone] Kathy Glover MD Unavailable +[phone] Laura Us MD Unavailable Luh AcharyaC Unavailable + [phone] Kathy Glover MD Unavailable + -[phone] Luh AcharyaC Unavailable + [phone] Edward Marlow MD Unavailable +[phone] [facility] Primary Care Provider Jas Bojorquez DO Unavailable +-[phone] Haven Buckner CNP Unavailable +2-2 [phone] Jenise España MD Unavailable Unavailable Tierra Cancino PA-C Unavailable Luh AcharyaC Primary Care Provider + Luh AcharyaC Unavailable [phone] Tierra Cancino MICHELEC Unavailable Haven Buckner CNP Unavailable +1-2-2 [phone] Karri Acharyakirsty BAUTISTAC Unavailable +1-260 BucknerHaven lofton CNP Unavailable +12-2 Reason for Visit * Reason Onset Date Comments MyChart Communication 02/15/2017 migraine t reatments Encounter Details Date Type Department Care Team (Late st Contact Info) Description 02/15/2017 MyC Medical Advice [address] [address] Kathy Glover MD [address] [place] [address] MyChart Communication (migraine treatments) Social History [...] with PCP recommendations. TAYLA Simmons, RN, N [place] Triage * Telephone Encounter - Kathy Glover [...] of PCP recommendations below. Script walked to [facility]. Patient asked if appeal letter had been written for her Midrin. I see that Midrin PA was denied on 01/17/2017. I do not see an appeal letter in chart so unsure of status. Will route to . TAYLA Simmons, RN, [place] Triage * Telephone Encounter - Marcy Smith RN - 02/21/2017 8:28 AM CDT Received signed script. Attempt #1 to call pt. Marcy Smith contacted Yenni on 02/21/17 and left a message. If patient calls back please contact RN team. Put script on [facility] desk incase pt calls back. Dona Smith RN * Telephone Encounter - Marcy Smith RN - 02/21/2017 7:55 AM CDT Prescription put on [facility] desk for signature to then give to triage to alert pt of below. Dona Smith RN * Telephone Encounter - Kathy Glover MD - 02/21/2017 12:20 AM CDT Done for #20 tabs for severe pain - try to just take 1/2 tab for migraines, if needed. rx at [facility], please bring to me later this am when back in clinic and I'll sign. rx needs to bi picked up or walked over to our pharmacy. Await results of referral from neurology. * Telephone Encounter - Coty Doan RN - 02/16/2017 3:28 PM CDT Please review patient's mychart message. TAYLA Simmons, RN, PHN [place] Triage * Telephone Encounter - Coty Doan RN - 02/16/2017 2:40 PM CDT Mychart note sent to patient with provider recommendations below. TAYLA Simmons, RN, PHN [place] Triage * Telephone Encounter - Kathy Glover MD - 02/16/2017 2:29 PM CDT ? Is pt doing the postconcussion program either through [facility] or via [place] concussion planner chief? Would highly recommend the [place] program. If pt desires to do medical [...] documented as of this encounter Care Teams Sketcher Relationship Specialty Start Date End Date Kathy Glover MD [address] [place] [address] PCP - General Family Practice 06/03/15 10/05/20 Kathy Glover MD [address] [place] [address] 826672 PCP - Assigned PCP 07/25/15 11/19/[address] [phone] PCP - General 10/06/20 11/20/21 uLh Acharya PA-C [address] [place] [address] 351302 PCP - General Family Medicine 11/21/21 01/02/23 Toma Arguello NP [address] [address] Nurse Practitioner Nurse Practitioner Psych/Mental Health 04/11/17 Kathy Glover MD [address] [place] [address] 08686 Assigned PCP 07/25/15 12/20/19 Laura Us MD [address] [place] [address] 49531 Gastroenterology 12/20/18 Luh Acharya PA-C [address] [place] [address] Assigned PCP 12/21/19 01/17/20 Kathy Glover MD [address] [place] [address] 346562 Assigned PCP 01/18/20 06/19/20 Luh Acharya PA-C [address] [place] [address] 051992 Assigned PCP 06/20/20 03/31/21 [place] [address] Assigned Surgical Provider 07/09/20 07/31/20 Jas Bojorquez DO [address] [place] [address] 286962 Assigned PCP 04/01/21 05/21/21 Haven Buckner, NICOLE [address] [place] [address] 931622 Assigned PCP 05/22/21 11/26/21 Jenise España MD Assigned Heart and Vascular Provider 07/24/21 11/17/22 Tierra Cancino PA-C [address] [place] [address] Physician Chassis Engineer Urology 11/17/21 Luh Acharya PA-C [address] [place] [address], [place] [address] Assigned PCP 11/27/21 12/31/21 Tierra Cancino PA-C [address] [place] [address] Assigned Surgical Provider 12/11/21 06/08/23 Haven Buckner, MANAGER [employer] [address] [place] [address], [place] [address] Assigned PCP 01/01/22 12/22/22 Luh Acharya PA-C [address] [place] [address], [place] [address] Assigned PCP 12/23/22 05/18/23 Haven Buckner, MANAGER [employer] [address] [place] [address] Assigned PCP 05/19/23 documented as of this encounter
--- OUTSIDE RECORDS SUMMARY | 2024-05-01 06:13 | XMS_ITS | Encounter Summary ---
Author Organization [place] Address [address] [place] [address] Care Team Providers Care Professor Of Biological Sciences Name Role Phone Kathy Glover MD Primary Care Provider Toma Arguello NP Unavailable [phone] Kathy Glover MD Unavailable +[phone] Kathy Glover MD Unavailable +[phone] Laura Us MD Unavailable Luh AcharyaC Unavailable + [phone] Kathy Glover MD Unavailable + -[phone] Luh AcharyaC Unavailable + [phone] Edward Marlow MD Unavailable [phone] [facility] Primary Care Provider Jas Bojorquez DO Unavailable +-[phone] Haven Buckner CNP Unavailable +2-2 [phone] Jenise España MD Unavailable Unavailable Tierra Cancino PA-C Unavailable Luh AcharyaC Primary Care Provider + Luh AcharyaC Unavailable [phone] Tierra Cancinojose guadalupe HUFF Unavailable +[phone] Haven Buckner CNP Unavailable +1--2 Luh AcharyaC Unavailable +1-260 BucknerHaven lofton CNP Unavailable +113-2 Reason for Visit * Reason Comments Medication Refill Encounter Details Date Type Department Care Team (Late st Contact Info) Description 05/09/[address] [phone] Kathy Glover MD [address] [place] [address] [phone] Medication Refill Social History Tobacco Use Types [...] Total Score: 5 11/19/19 16 7:51 AM POWER PLANT ENGINEER documented as of this encounter Care Teams Professor Of Biological Sciences Relationship Specialty Start Date End Date Kathy Glover MD [address] [place] [address] PCP - General Family Practice 06/03/15 10/05/20 Kathy Glover MD [address] [place] [address] 946842 PCP - Assigned PCP 07/25/15 11/19/[address] [address] PCP - General 10/06/20 11/20/21 Luh Acharya PA-C [address] [place] [address] 193812 PCP - General Family Medicine 11/21/21 01/02/23 Toma Arguello NP [address] [address] Nurse Practitioner Nurse Practitioner Psych/Mental Health 04/11/17 Kathy Glover MD [address] [place] [address] Assigned PCP 07/25/15 12/20/19 Luara Us MD [address] [place] [address] Gastroenterology 12/20/18 Luh Acharya PA-C [address] [place] [address] Assigned PCP 12/21/19 01/17/20 Kathy Glover MD [address] [place] [address] Assigned PCP 01/18/20 06/19/20 Luh Acharya PA-C [address] [place] [address] Assigned PCP 06/20/20 03/31/21 Edward Marlow [place] [address] Assigned Surgical Provider 07/09/20 07/31/20 Jas Bojorquez DO [address] [place] [address] Assigned PCP 04/01/21 05/21/21 Haven Buckner, NICOLE [address] [place] [address] 77925 Assigned PCP 05/22/21 11/26/21 Jenise España MD Assigned Heart and Vascular Provider 07/24/21 11/17/22 Tierra Cancino PA-C [address] [place] [address] Physician Computer Systems Auditor Urology 11/17/21 Luh Acharya PA-C [address] [place] [address] Assigned PCP 11/27/21 12/31/21 Tierra Cancino PA-C [address] [place] [address] Assigned Surgical Provider 12/11/21 06/08/23 Haven Buckner, NICOLE [address] [place] [address] Assigned PCP 01/01/22 12/22/22 Luh Acharya PA-C [address] [place] [address]65 Assigned PCP 12/23/22 05/18/23 Haven Buckner CNP [address] [place] [address] Assigned PCP 05/19/23 documented as of this encounter
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
--- OUTSIDE RECORDS SUMMARY | 2024-05-01 06:13 | XMS_ITS | Encounter Summary ---
Author Organization [place] Address [address] [facility] [place] [address] Care Team Providers Care Improvement Intern Name Role Phone Kathy Glover MD Primary Care Provider Toma Arguello NP Unavailable [phone] Kathy Glover MD Unavailable +[phone] Kathy Glvoer MD Unavailable +[phone] Laura Us MD Unavailable Luh AcharyaC Unavailable + [phone] Kathy Glover MD Unavailable + [phone] Luh AcharyaC Unavailable + [phone] Edward Marlow MD Unavailable [phone] [facility] Primary Care Provider Jas Bojorquez DO Unavailable +[phone] Haven Buckner CNP Unavailable +[phone] Jenise España MD Unavailable Unavailable Tierra Cancino PA-C Unavailable Luh AcharyaC Primary Care Provider + Luh Acharyace PA-C Unavailable [phone] Tierra Cancinovandana BAUTISTAC Unavailable BucknerHaven lofton PAYMENT PROCESSOR Unavailable +[phone] Luh Acharya Enedina DUMONT-C Unavailable [phone] BucknerHaven lofton PAYMENT PROCESSOR Unavailable +12-2 Reason for Visit * Reason Onset Date Comments MyChart Communication 02/22/[address] recommendation Encounter Details Date Type Department Care Team (Late st Contact Info) Description 02/22/2017 MyC Medical Advice [address] [address] Kathy Glover MD [address] [place] [address] MyChart Communication (psychiatrist recomm... Social History [...] documented as of this encounter Care Teams Improvement Intern Relationship Specialty Start Date End Date Kathy Glover MD [address] [place] [address] 479302 PCP - General Family Practice 06/03/15 10/05/20 Kathy Glover MD [address] [place] [address] 340802 PCP - Assigned PCP 07/25/15 11/19/[address] 354002 PCP - General 10/06/20 11/20/21 Luh Acharya PA-C [address] [place] [address] 686102 PCP - General Family Medicine 11/21/21 01/02/23 Toma Arguello NP [address] [phone] Nurse Practitioner Nurse Practitioner Psych/Mental Health 04/11/17 Kathy Glover MD [address] [place] [address] 67169 Assigned PCP 07/25/15 12/20/19 Laura Us MD [address] [place] [address] 31829 Gastroenterology 12/20/18 Luh Acharya PA-C [address] [place] [address] 24936 Assigned PCP 12/21/19 01/17/20 Kathy Glover MD [address] [place] [address] 10779 Assigned PCP 01/18/20 06/19/20 Luh Acharya PA-C [address] [place] [address] 58712 Assigned PCP 06/20/20 03/31/21 Edward Marlow MD [address] [place] [address] 60541 Assigned Surgical Provider 07/09/20 07/31/20 Jas Bojorquez DO [address] [place] [address] 43069 Assigned PCP 04/01/21 05/21/21 Haven Buckner, PAYMENT PROCESSOR [address] [place] [address] 34293 Assigned PCP 05/22/21 11/26/21 Jenise España MD Assigned Heart and Vascular Provider 07/24/21 11/17/22 Tierra Cancino PA-C [address] [place] [address] Physician Accountant Helper Urology 11/17/21 Luh Acharya PA-C [address] [place] [address], [place] [address] Assigned PCP 11/27/21 12/31/21 Tierra Cancino PA-C [address] [place] [address] Assigned Surgical Provider 12/11/21 06/08/23 Haven Buckner, NICOLE [address] [place] [address] 34618 Assigned PCP 01/01/22 12/22/22 Luh Acharya PA-C [address] [place] [address] 73265 Assigned PCP 12/23/22 05/18/23 Haven Buckner, NICOLE [address] [place] [address] 13577 Assigned PCP 05/19/23 documented as of this encounter
--- OUTSIDE RECORDS SUMMARY | 2024-05-01 06:13 | XMS_ITS | Encounter Summary ---
Author Organization [place] Address [address] [place] [address] Care Team Providers Care Blower Feeder Dyed Raw Stock Name Role Phone Kathy Glover MD Primary Care Provider Toma Arguello NP Unavailable [phone] Kathy Glover MD Unavailable +[phone] Kathy Glover MD Unavailable +[phone] Laura Us MD Unavailable Luh AcharyaC Unavailable + [phone] Kathy Glover MD Unavailable + [phone] Luh AcharyaC Unavailable + [phone] Edward Marlow MD Unavailable [phone] [facility] Primary Care Provider Jas Bojorquez DO Unavailable +[phone] Haven Buckner CNP Unavailable +[phone] Jenise España MD Unavailable Unavailable Tierra Cancino PA-C Unavailable [phone] Luh AcharyaC Primary Care Provider + Luh Acharyace PA-C Unavailable +[phone] Tierra Cancino TIM-C Unavailable BucknerHaven lofton Meaghan CNP Unavailable +- Luh Acharya Enedina DUMONT-C Unavailable + Haven Buckner DIGITAL SALES ASSISTANT Unavailable +- Reason for Visit * Reason Onset Date Comments Medication Request 05/23/2016 Encounter Details Date Type Department Care Team (Late st Contact Info) Description 05/23/2016 MyC Medical Advice [address] [phone] Dona Davidson, ergonomics engineer Request Social History Tobacco Use Types Packs/Day [...] review and refilled Dona Davidson RN, BSN [facility] documented in this encounter Plan of Treatment [...] documented as of this encounter Care Teams Blower Feeder Dyed Raw Stock Relationship Specialty Start Date End Date Kathy Glover MD [address] [place] [address] 66071 PCP - General Family Practice 06/03/15 10/05/20 Kathy Glover MD [address] [place] [address] 734192 PCP - Assigned PCP 07/25/15 11/19/[address] 446372 PCP - General 10/06/20 11/20/21 Luh Acharya PA-C [address] [place] [address] 50647 PCP - General Family Medicine 11/21/21 01/02/23 Toma Arguello NP [address] [address] Nurse Practitioner Nurse Practitioner Psych/Mental Health 04/11/17 Kathy Glover MD [address] [place] [address] 51769 Assigned PCP 07/25/15 12/20/19 Laura Us MD [address] [place] [address] 44695 Gastroenterology 12/20/18 Luh Acharya PA-C [address] [place] [address] 89153 Assigned PCP 12/21/19 01/17/20 Kathy Glover MD [address] [place] [address] 79990 Assigned PCP 01/18/20 06/19/20 Luh Acharya PA-C [address] [place] [address] 88973 Assigned PCP 06/20/20 03/31/21 [place] [address] Assigned Surgical Provider 07/09/20 07/31/20 Jas Bojorquez DO [address] [place] [address] 385732 Assigned PCP 04/01/21 05/21/21 Haven Buckner, NICOLE [address] [place] [address] [phone] Assigned PCP 05/22/21 11/26/21 Jenise España MD Assigned Heart and Vascular Provider 07/24/21 11/17/22 Tierra Cancino PA-C [address] [place], [place] 5[address] Physician Dope Edger Urology 11/17/21 Luh Acharya PA-C [address] [place] [address] 653542 Assigned PCP 11/27/21 12/31/21 Tierra Cancino PA-C [address] [place] [place] [address] Assigned Surgical Provider 12/11/21 06/08/23 Haven Buckner, DIGITAL SALES ASSISTANT [address] [place] [address] 17206 Assigned PCP 01/01/22 12/22/22 Luh Acharya PA-C [address] [place] [address] 56239 Assigned PCP 12/23/22 05/18/23 Haven Buckner, DIGITAL SALES ASSISTANT [address] [place] [address] 75596 Assigned PCP 05/19/23 documented as of this encounter
--- OUTSIDE RECORDS SUMMARY | 2024-05-01 06:13 | XMS_ITS | Encounter Summary ---
Author Organization [place] Address [address] [facility] [place] [address] Care Team Providers Care Computer Systems Analyst Name Role Phone Kathy Glover MD Primary Care Provider Toma Arguello NP Unavailable [phone] Kathy Glover MD Unavailable +[phone] Kathy Glover MD Unavailable +[phone] Laura Us MD Unavailable Luh AcharyaC Unavailable + [phone] Kathy Glover MD Unavailable + -[phone] Luh AcharyaC Unavailable + [phone] Edward Marlow MD Unavailable +[phone] [facility] Primary Care Provider Jas Bojorquez DO Unavailable +-[phone] Haven Buckner CNP Unavailable +[phone] Jenise España MD Unavailable Unavailable Tierra Cancino PA-C Unavailable Luh AcharyaC Primary Care Provider + Luh AcharyaC Unavailable Tierra Cancinojose guadalupe BAUTISTAC Unavailable [phone] Haven Buckner CNP Unavailable +1-2-2 Luh AcharyaC Unavailable +[phone] BucknerHaven lofton CNP Unavailable +1--2 Reason for Visit * Reason Comments Medication Refill traZODone (DESYREL) 100 MG tablet Encounter Details Date Type Department Care Team (Late st Contact Info) Description 01/19/[address] [address] Kathy Glover MD [address] [place] [address] Medication Refill (traZODone (DESYREL) 100 MG [...] advise Thank you Manisha Patel RN, BSN [place] Triage * Telephone Encounter - Renay Barlow RN - 01/20/2016 11:32 AM CDT traZODone (DESYREL) 100 MG tablet Rx was D/C on 11/18/15 due to Dosage Adjustment - Pt wanted to go down to 50mg Last Written Prescription Date: 06/02/15 Last Fill Quantity: n/a; # refills: n/a Last Office Visit with [facility], [facility] or [facility] prescribing provider: 11/18/15 Next 5 appointments (look out 90 days) January 29, 2016 8:45 AM Office Visit with Kathy Glover MD [facility] [address] [place] [phone] Last PHQ-9 score on record= PHQ-9 SCORE 11/18/2015 Total Score 5 AST 39 11/18/2015 ALT 78 11/18/2015 Renay Barlow Patient Infrastructure Engineer documented in this encounter Plan of [...] Total Score: 5 11/19/19 16 7:51 AM LINOTYPER documented as of this encounter Care Teams Computer Systems Analyst Relationship Specialty Start Date End Date Kathy Glover MD [address] [place] [address]23 PCP - General Family Practice 06/03/15 10/05/20 Kathy Glover MD [address] [place] [address]191 PCP - Assigned PCP 07/25/15 11/19/[address] [address] PCP - General 10/06/20 11/20/21 Luh Acharya PA-C [address] [place] [address] 33111 PCP - General Family Medicine 11/21/21 01/02/23 Toma Arguello NP [address] [address] Nurse Practitioner Nurse Practitioner Psych/Mental Health 04/11/17 Kathy Glover MD [address] [place] [address] 74641 Assigned PCP 07/25/15 12/20/19 Laura Us MD [address] [place] [address] 48411 Gastroenterology 12/20/18 Luh Acharya PA-C [address] [place] [address] 83369 Assigned PCP 12/21/19 01/17/20 Kathy Glover MD [address] [place] [address]6587 Assigned PCP 01/18/20 06/19/20 Luh Acharya PA-C [address] [place] [address] 83030 Assigned PCP 06/20/20 03/31/21 Edward Marlow MD [address] [place] [address] Assigned Surgical Provider 07/09/20 07/31/20 Jas Bojorquez DO [address] [place] [address] 14174 Assigned PCP 04/01/21 05/21/21 Haven Buckner, DREDGE MECHANIC [address] [place] [address] 81459 Assigned PCP 05/22/21 11/26/21 Jenise España MD Assigned Heart and Vascular Provider 07/24/21 11/17/22 Tierra Cancino PA-C [address] [place] [address] Physician Stem Setter Urology 11/17/21 Luh Acharya PA-C [address] [place] [address] 30100 Assigned PCP 11/27/21 12/31/21 Tierra Cancino PA-C [address] [facility] [address] [place] [address] Assigned Surgical Provider 12/11/21 06/08/23 Haven Buckner, NICOLE [address] [place] [address] 08889 Assigned PCP 01/01/22 12/22/22 Luh Acharya PA-C [address] [place] [address] 54367 Assigned PCP 12/23/22 05/18/23 Haven Buckner, DREDGE MECHANIC [address] [place] [address] Assigned PCP 05/19/23 documented as of this encounter
--- OUTSIDE RECORDS SUMMARY | 2024-05-01 06:13 | XMS_ITS | Encounter Summary ---
Author Organization [place] Address [address] [facility] [place] [address] Care Team Providers Care Home Sales Consultant Name Role Phone Kathy Glover MD Primary Care Provider Toma Arguello NP Unavailable [phone] Kathy Glover MD Unavailable +[phone] Kathy Glover MD Unavailable +[phone] Laura Us MD Unavailable Luh AcharyaC Unavailable + [phone] Kathy Glover MD Unavailable + -[phone] Luh AcharyaC Unavailable + [phone] Edward Marlow MD Unavailable [phone] [facility] Primary Care Provider Jas Bojorquez DO Unavailable +-[phone] Haven Buckner CNP Unavailable +2-2 [phone] Jenise Esapña MD Unavailable Unavailable Tierra Cancino PA-C Unavailable Luh AcharyaC Primary Care Provider + Luh AcharyaC Unavailable [phone] Barak Tierra Man PA-C Unavailable Haven Buckner CNP Unavailable +1-2-2 Luh AcharyaC Unavailable +[phone] BucknerHaven lofton CNP Unavailable +[phone] Reason for Visit * Reason Onset Date Comments Refill Request 05/09/2016 flexeril Encounter Details Date Type Department Care Team (Late st Contact Info) Description 05/09/[address] [address] [place] [address] [place] [address] Refill Request (flexeril) Social History Tobacco [...] for review/approval because: Drug not on the [facility] refill protocol not on med list for RN protocol. Dona Smith RN * Telephone Encounter - Krunal Whitehead - 05/09/2016 9:18 AM CDT cyclobenzaprine (FLEXERIL) 5 MG tablet Last Written Prescription Date: 01.01.16 Last Fill Quantity: 42, # refills: 0 Last Office Visit with G, [facility] or [facility] prescribing provider: 8.11.16 documented in this [...] Total Score: 5 11/19/19 16 7:51 AM FLIPPING MACHINE OPERATOR documented as of this encounter Care Teams Home Sales Consultant Relationship Specialty Start Date End Date Kathy Glover MD [address] [place] [address] 12070 PCP - General Family Practice 06/03/15 10/05/20 Kathy Glover MD [address] [place] [address] 51596 PCP - Assigned PCP 07/25/15 11/19/[address] [address] PCP - General 10/06/20 11/20/21 Luh Acharya PA-C [address] [place] [address] 56567 PCP - General Family Medicine 11/21/21 01/02/23 Toma Argulelo NP [facility] [address] [place] [address] Nurse Practitioner Nurse Practitioner Psych/Mental Health 04/11/17 Kathy Glover MD [address] [place] [address] 14941 Assigned PCP 07/25/15 12/20/19 Laura Us MD [address] [place] [address] 58119 Gastroenterology 12/20/18 Luh Acharya PA-C [address] [place] [address] 79228 Assigned PCP 12/21/19 01/17/20 Kathy Glover MD [address] [place] [address] 525652 Assigned PCP 01/18/20 06/19/20 Luh Acharya PA-C [address] [place] [address] 49964 Assigned PCP 06/20/20 03/31/21 Edward Marlow MD [address] [place] [address] Assigned Surgical Provider 07/09/20 07/31/20 Jas Bojorquez DO [address] [place] [address] 09286 Assigned PCP 04/01/21 05/21/21 Haven Buckner, NICOLE [address] [place] [address], [place] [address] Assigned PCP 05/22/21 11/26/21 Jenise España MD Assigned Heart and Vascular Provider 07/24/21 11/17/22 Tierra Cancino PA-C [address] [place] [address] Physician Transfer Worker Urology 11/17/21 Luh Acharya PA-C [address] [place] [address], [place] [address] Assigned PCP 11/27/21 12/31/21 Tierra Cancino PA-C [address] [place] [address] Assigned Surgical Provider 12/11/21 06/08/23 Haven Buckner CNP [address] [place] [address], [place] [address] Assigned PCP 01/01/22 12/22/22 Luh Acharya PA-C [address] [place] [address], [place] [address] Assigned PCP 12/23/22 05/18/23 Haven Buckner, NICOLE [address] [place] [address], [place] [address] Assigned PCP 05/19/23 documented as of this encounter
--- OUTSIDE RECORDS SUMMARY | 2024-05-01 06:13 | XMS_ITS | Encounter Summary ---
Author Organization [place] Address [address] [facility] [place] [address] Care Team Providers Care Retread Technician Name Role Phone Kathy Glover MD Primary Care Provider Toma Arguello NP Unavailable [phone] Kathy Glover MD Unavailable [phone] Kathy Glover MD Unavailable +[phone] Laura Us MD Unavailable Luh AcharyaC Unavailable + [phone] Kathy Glover MD Unavailable + -[phone] Luh AcharyaC Unavailable + [phone] Edward Marlow MD Unavailable [phone] [facility] Primary Care Provider Jas Bojorquez DO Unavailable +[phone] Haven Buckner CNP Unavailable +2-2 26-2600 Jenise España MD Unavailable Unavailable Tierra Cancino PA-C Unavailable Luh AcharyaC Primary Care Provider + Luh Acharyace PA-C Unavailable Tierra Cancinovandana DUMONT-C Unavailable BucknerHaven lofton CNP Unavailable [phone] Luh Acharya Enedina DUMONT-C Unavailable +[phone] Sita Haven Harding CNP Unavailable [phone] Reason for Visit * Reason Onset Date Comments MyChart Communication 01/18/2017 referrals Encounter Details Date Type Department Care Team (Late st Contact Info) Description 01/18/2017 MyC Medical Advice [address] [phone] [place] [address] [place] [address] MyChart Communication (referrals) Social History Tobacco [...] Smith RN - 01/18/2017 12:44 PM CDT [employer] sent with information. Dona Smith RN documented [...] documented as of this encounter Care Teams Retread Technician Relationship Specialty Start Date End Date Kathy Glover MD [address] [place] [address] PCP - General Family Practice 06/03/15 10/05/20 Kathy Glover MD [address] [place] [address] 736802 PCP - Assigned PCP 07/25/15 11/19/[address] [phone] PCP - General 10/06/20 11/20/21 Luh Acharya PA-C [address] [place] [address] 039382 PCP - General Family Medicine 11/21/21 01/02/23 Toma Arguello NP [address] [address] Nurse Practitioner Nurse Practitioner Psych/Mental Health 04/11/17 Kathy Glover MD [address] [place] [address] 28386 Assigned PCP 07/25/15 12/20/19 Laura Us MD [address] [place] [address] 65078 Gastroenterology 12/20/18 Luh Acharya PA-C [address] [place] [address] 27540 Assigned PCP 12/21/19 01/17/20 Kathy Glover MD [address] [place] [address] 531782 Assigned PCP 01/18/20 06/19/20 Luh Acharya PA-C [address] [place] [address] 860382 Assigned PCP 06/20/20 03/31/21 Edward Marlow MD [address] [place] [address] Assigned Surgical Provider 07/09/20 07/31/20 Jas Bojorquez DO [address] [place] [address] 713812 Assigned PCP 04/01/21 05/21/21 Haven Buckner, NICOLE [address] [place] [address] 492852 Assigned PCP 05/22/21 11/26/21 Jenise España MD Assigned Heart and Vascular Provider 07/24/21 11/17/22 Tierra Cancino PA-C [address] [address] Physician Supervisor Compressed Yeast Urology 11/17/21 Luh Acharya PA-C [address] [facility] [place] [address] Assigned PCP 11/27/21 12/31/21 Tierra Cancino PA-C [address] [place] [address] Assigned Surgical Provider 12/11/21 06/08/23 Haven Buckner, HEDIS COORDINATOR [address] [facility] [place] [address] Assigned PCP 01/01/22 12/22/22 Luh Acharya PA-C [address] [facility] [place] [address] Assigned PCP 12/23/22 05/18/23 Haven Buckner, HEDIS COORDINATOR [facility] [facility] [place] [place] [address] Assigned PCP 05/19/23 documented as of this encounter
--- OUTSIDE RECORDS SUMMARY | 2024-05-01 06:13 | XMS_ITS | Encounter Summary ---
Author Organization [place] Address [address] [facility] [place] [address] Care Team Providers Care Generator Repairer Name Role Phone Kathy Glover MD Primary Care Provider Toma Arguello NP Unavailable [phone] Kathy Glover MD Unavailable [phone] Kathy Glover MD Unavailable +[phone] Laura Us MD Unavailable Luh AcharyaC Unavailable + [phone] Kathy Glover MD Unavailable + -[phone] Luh AcharyaC Unavailable + [phone] Edward Marlow MD Unavailable [phone] [facility] Primary Care Provider Jas Bojorquez DO Unavailable +[phone] Haven Buckner CNP Unavailable +[phone] Jenise España MD Unavailable Unavailable Tierra Cancino PA-C Unavailable Luh AcharyaC Primary Care Provider + Luh AcharyaC Unavailable [phone] Tierra Cancino MICHELEC Unavailable Haven Buckner CNP Unavailable +[phone] Luh Acharya-C Unavailable +[phone] BucknerHaven lofton CNP Unavailable +[phone] Reason for Visit * Reason Onset Date Comments MyChart Communication 01/23/2017 Re: TIM for Midtheresa Encounter Details Date Type Department Care Team (Late st Contact Info) Description 01/23/2017 MyC Medical [address] [address] [place] [address] [place] [address] MyChart Communication (Re: TIM for Midrin) [...] sooner appointment is needed. You can call [phone] and ask that on-call provider be paged. Coty Doan, BS, RN, PHN [place] Triage * Telephone Encounter - Coty Doan RN - 01/26/2017 4:17 PM CDT VM left for nurses line at [facility] to call us back. Detailed message left with PCP note below. TAYLA Simmons, RN, PHN [place] Triage * Telephone Encounter - Kathy Glover MD - 01/26/2017 3:26 PM CDT BP Readings from Last 6 Encounters: 01/05/17 130/80 10/16/16 132/85 09/16/16 116/82 07/14/16 116/66 07/07/16 116/66 06/30/16 120/86 bp well controlled. Please call [facility] Consultants re: pt's increasing creatinine [...] documented as of this encounter Care Teams Generator Repairer Relationship Specialty Start Date End Date Kathy Glvoer MD [address] [place] [address] PCP - General Family Practice 06/03/15 10/05/20 Kathy Glover MD [address] [place] [address] PCP - Assigned PCP 07/25/15 11/19/[address] [address] PCP - General 10/06/20 11/20/21 Luh Acharya PA-C [address] [place] [address]45[address] PCP - General Family Medicine 11/21/21 01/02/23 Toma Arguello NP [place] [place] [address] [place] [address] Nurse Practitioner Nurse Practitioner Psych/Mental Health 04/11/17 Kathy Glover MD [address] [place] [address] Assigned PCP 07/25/15 12/20/19 Laura Us MD [address] [place] [address] 763162 Gastroenterology 12/20/18 Luh Acharya PA-C [address] [place] [address] 386352 Assigned PCP 12/21/19 01/17/20 Kathy Glover MD [address] [place] [address] 055262 Assigned PCP 01/18/20 06/19/20 Luh Acharya PA-C [address] [place] [address] 762312 Assigned PCP 06/20/20 03/31/21 Edward Marlow MD [facility] [place] [address] Assigned Surgical Provider 07/09/20 07/31/20 Jas Bojorquez DO [address] [place] [address], [place] [address] Assigned PCP 04/01/21 05/21/21 Haven Buckner, APPLIED EXERCISE PHYSIOLOGIST [address] [place] [address], [place] [address] Assigned PCP 05/22/21 11/26/21 Jenise España MD Assigned Heart and Vascular Provider 07/24/21 11/17/22 Tierra Cancino PA-C [address] [place] [address] Physician Component Assembler Supervisor Urology 11/17/21 Luh Acharya PA-C [address] [place] [address], [place] [address] Assigned PCP 11/27/21 12/31/21 Tierra Cancino PA-C [address] [place] [address] Assigned Surgical Provider 12/11/21 06/08/23 Haven Buckner, APPLIED EXERCISE PHYSIOLOGIST [address] [place] [address], [place] [address] Assigned PCP 01/01/22 12/22/22 Luh Acharya PA-C [address] [place] [address], [place] [address] Assigned PCP 12/23/22 05/18/23 Haven Buckner, NICOLE [address] [place] [address] Assigned PCP 05/19/23 documented as of this encounter
--- OUTSIDE RECORDS SUMMARY | 2024-05-01 06:13 | XMS_ITS | Encounter Summary ---
Author Organization [facility] Address [address] [place] [address] Care Team Providers Care Bakery Decorator Name Role Phone Kathy Glover MD Primary Care Provider Toma Arguello NP Unavailable [phone] Kathy Glover MD Unavailable [phone] Kathy Glover MD Unavailable [phone] Laura Us MD Unavailable Luh AcharyaC Unavailable + [phone] Kathy Glover MD Unavailable + [phone] Luh AcharyaC Unavailable + [phone] Edward Marlow MD Unavailable [phone] [facility] Primary Care Provider Jas Bojorquez DO Unavailable +[phone] Haven Buckner CNP Unavailable +[phone] Jenise España MD Unavailable Unavailable Tierra Cancino PA-C Unavailable [phone] Luh AcharyaC Primary Care Provider + Luh AcharyaC Unavailable [phone] Barak Tierra Man PA-C Unavailable Haven Buckner [...] documented as of this encounter Care Teams Bakery Decorator Relationship Specialty Start Date End Date Kathy Glover MD [address] [place] [address] [phone] PCP - General Family Practice 06/03/15 10/05/20 Kathy Glover MD [address] [place] [address] [phone] PCP - Assigned PCP 07/25/15 11/19/[address] [address] PCP - General 10/06/20 11/20/21 Luh Acharya PA-C [address] [place] [address] 91528 PCP - General Family Medicine 11/21/21 01/02/23 Toma Arguello EXERCISE EQUIPMENT SPECIALIST [address] [id number] Nurse Practitioner Nurse Practitioner Psych/Mental Health 04/11/17 Kathy Glover MD [address] [place] [address] [phone] Assigned PCP 07/25/15 12/20/19 Laura Us MD [address] [place] [address] [phone] Gastroenterology 12/20/18 Luh Acharya PA-C [address] [place] [address] [phone] Assigned PCP 12/21/19 01/17/20 Kathy Glover MD [address] [place] [address] 08353 Assigned PCP 01/18/20 06/19/20 Luh Acharya PA-C [address] [place] [address] 01083 Assigned PCP 06/20/20 03/31/21 Edward Marlow MD [address] [place], [place] 773487 Assigned Surgical Provider 07/09/20 07/31/20 Jas Bojorquez DO [address] [place] [address] [phone] Assigned PCP 04/01/21 05/21/21 Haven Buckner, POT PRESS OPERATOR [address] [place] [address] [phone] Assigned PCP 05/22/21 11/26/21 Jenise España MD Assigned Heart and Vascular Provider 07/24/21 11/17/22 Tierra Cancino PA-C [address] [place] [address] Physician Hot Punch Press Operator Urology 11/17/21 Luh Acharya PA-C [address] [place] [address]24 Assigned PCP 11/27/21 12/31/21 Tierra Cancino PA-C [address] [place] [address] Assigned Surgical Provider 12/11/21 06/08/23 Haven Buckner, POT PRESS OPERATOR [address] [place] [address] 90128 Assigned PCP 01/01/22 12/22/22 Luh Acharya PA-C [address] [place] [address] Assigned PCP 12/23/22 05/18/23 Haven Buckner, NICOLE [address] [place] [address] 30837 Assigned PCP 05/19/23 documented as of this encounter
--- OUTSIDE RECORDS SUMMARY | 2024-05-01 06:13 | XMS_ITS | Encounter Summary ---
Author Organization [facility] Address [address] [place] [address] Care Team Providers Care Turning Sander Tender Name Role Phone Kathy Glover MD Primary Care Provider Toma Arguello NP Unavailable [phone] Kathy Glover MD Unavailable [phone] Kathy Glover MD Unavailable [phone] Laura Us MD Unavailable Luh AcharyaC Unavailable + [phone] Kathy Glover MD Unavailable + [phone] Luh AcharyaC Unavailable + [phone] Edward Marlow MD Unavailable [phone] [facility] Primary Care Provider Jas Bojorquez DO Unavailable +[phone] Haven Buckner CNP Unavailable [phone] Jenise España MD Unavailable Unavailable Tierra Cancino PA-C Unavailable Luh AcharyaC Primary Care Provider + Luh AcharyaC Unavailable [phone] Shaniamando Tierra Magda HUFF Unavailable Haven Buckner CNP Unavailable +[phone] Luh AcharyaC Unavailable [phone] BucknerHaven lofton CNP Unavailable [phone] Encounter Details Date Type Department Care Team (Late st Contact Info) Description 06/30/2016 [facility] Medical Advice [address] [address] Mahesh Cuevas Jr., MD [address] [place] [address] [phone] Social History Tobacco Use Types Packs/Day Years [...] documented as of this encounter Care Teams Turning Sander Tender Relationship Specialty Start Date End Date Kathy Glover MD [address] [place] [address] [phone] PCP - General Family Practice 06/03/15 10/05/20 Kathy Glover MD [address] [place] [address] PCP - Assigned PCP 07/25/15 11/19/[address] [address] PCP - General 10/06/20 11/20/21 Luh Acharya PA-C [address] [place] [address] [phone] PCP - General Family Medicine 11/21/21 01/02/23 Toma Arguello NP [address] [phone] Nurse Practitioner Nurse Practitioner Psych/Mental Health 04/11/17 Kathy Glover MD [address] [place] [address] Assigned PCP 07/25/15 12/20/19 Laura Us MD [address] [place] [address] Gastroenterology 12/20/18 Luh Acahrya PA-C [address] [place] [address] 02646 Assigned PCP 12/21/19 01/17/20 Kathy Glover MD [address] [place] [address] 58374 Assigned PCP 01/18/20 06/19/20 Luh Acharya PA-C [address] [place] [address] 23909 Assigned PCP 06/20/20 03/31/21 [place] [address] Assigned Surgical Provider 07/09/20 07/31/20 Jas Bojorquez DO [address] [place] [address]46 Assigned PCP 04/01/21 05/21/21 Haven Buckner CNP [address] [place] [address] 21689 Assigned PCP 05/22/21 11/26/21 Jenise España MD Assigned Heart and Vascular Provider 07/24/21 11/17/22 Tierra Cancino PA-C [address] [place] [address] Physician Compensation Supervisor Urology 11/17/21 Luh Acharya PA-C [address] [place] [address] Assigned PCP 11/27/21 12/31/21 Tierra Cancino PA-C [address] [place] [address] Assigned Surgical Provider 12/11/21 06/08/23 Haven Buckner, NICOLE [address] [place] [address] Assigned PCP 01/01/22 12/22/22 Luh Acharya PA-C [address] [place] [address] [phone] Assigned PCP 12/23/22 05/18/23 Haven Buckner, NICOLE [address] [place] [address] 66[address] Assigned PCP 05/19/23 documented as of this encounter
--- OUTSIDE RECORDS SUMMARY | 2024-05-01 06:13 | XMS_ITS | Encounter Summary ---
Author Organization [facility] Address [address] [place] [address] Care Team Providers Care Personal Coach Name Role Phone Kathy Glover MD Primary Care Provider Toma Arguello NP Unavailable [phone] Kathy Glover MD Unavailable [phone] Kathy Glover MD Unavailable [phone] Laura Us MD Unavailable Luh AcharyaC Unavailable + [phone] Kathy Glover MD Unavailable + [phone] Luh AcharyaC Unavailable + [phone] Edward Marlow MD Unavailable [phone] [facility] Primary Care Provider Jas Bojorquez DO Unavailable +[phone] Haven Buckner CNP Unavailable +[phone] Jenise España MD Unavailable Unavailable Tierra Cancino PA-C Unavailable Luh AcharyaC Primary Care Provider + Luh Acharya PA-C Unavailable [phone] Barak Tierra Man PA-C Unavailable Haven Buckner [...] documented as of this encounter Care Teams Personal Coach Relationship Specialty [place] [address] [place] [address] [phone] PCP - General Family Practice 06/03/15 10/05/20 Kathy Glover MD [address] [place] [address] 247652 PCP - Assigned PCP 07/25/15 11/19/[address] [address] PCP - General 10/06/20 11/20/21 Luh Acharya PA-C [address] [place] [address]92 PCP - General Family Medicine 11/21/21 01/02/23 Toma Arguello NP [address] [address] Nurse Practitioner Nurse Practitioner Psych/Mental Health 04/11/17 Kathy Glover MD [address] [place] [address]1966 Assigned PCP 07/25/15 12/20/19 Laura Us MD [address] [place] [address] Gastroenterology 12/20/18 Luh Acharya PA-C [address] [place] [address] 58359 Assigned PCP 12/21/19 01/17/20 Kathy Glover MD [address] [place] [address]93 Assigned PCP 01/18/20 06/19/20 Luh Acharya PA-C [address] [place] [address] 18665 Assigned PCP 06/20/20 03/31/21 Edward Marlow MD [address] [place] [address] Assigned Surgical Provider 07/09/20 07/31/20 Jas Bojorquez DO [address] [place] [address] 11363 Assigned PCP 04/01/21 05/21/21 Haven Buckner, NEEDLE BOARD REPAIRER [address] [place] [address] 93389 Assigned PCP 05/22/21 11/26/21 Jenise España MD Assigned Heart and Vascular Provider 07/24/21 11/17/22 Tierra Cancino PA-C [address] [place] [address] Physician Centrifugal Spinner Urology 11/17/21 Luh Acharya PA-C [address] [place] [address] 05359 Assigned PCP 11/27/21 12/31/21 Tierra Cancino PA-C [address] [place] [address] Assigned Surgical Provider 12/11/21 06/08/23 Haven Buckner, NEEDLE BOARD REPAIRER [address] [place] [address] 14530 Assigned PCP 01/01/22 12/22/22 Luh Acharya PA-C [address] [place] [address] Assigned PCP 12/23/22 05/18/23 Haven Buckner, NEEDLE BOARD REPAIRER [address] [place] [address] 7[address] Assigned PCP 05/19/23 documented as of this encounter
== END 2024-05-01 06:07 | disposition home or self-care (01) ==
PROVIDERS: PCP Family Medicine; Visit Provider Family Medicine
DX: N39.0 Urinary tract infection, site not specified (principal)
CPT/HCPCS: 87086

== ENCOUNTER 2024-05-06 07:29 | Outpatient (CLI) | payer BC, SELFPAY ==
--- OUTSIDE RECORDS SUMMARY | 2024-05-06 07:32 | XMS_ITS | Clinical Summary ---
Author Organization [facility] Address [address] [place] [address] Care Team Providers Care Terrazzo Finisher Name Role Phone Elsewhere, Pcp Primary Care Provider Unavailabl e Source Comments Patient records contain information from all sites at [facility]. For routine questions regarding patient records, call [phone] during business hours, M-F 8:00 AM - 5:00 PM Central Time. Record requests for emergency care only can be directed to [phone] at any time.[facility] Allergies Active Allergy Reactions Criticality Noted Date [...] Comments Blood Pressure 117/79 08/01/2022 2:07 PM DEVELOPER ADVISOR Pulse 101 08/01/2022 2:07 PM DEVELOPER ADVISOR Temperature 36.8 ??C (98.2 ??F) 07/10/2022 4:00 AM CD T Respiratory Rate 18 07/10/2022 4:00 AM CDT Oxygen Saturation 90% 07/10/2022 7:00 AM CDT Inhaled Oxygen Concentration - - Weight 96.1 kg (211 lb 13.8 oz) 08/01/2022 2:07 PM DEVELOPER ADVISOR Height 166.5 cm (5' 5.55) 08/01/2022 2:07 PM CS T Body Mass Index 34.67 08/01/2022 2:07 PM DEVELOPER ADVISOR Plan of Treatment Health Maintenance Due Date [...] CDT Jorge Browne D.O. LAB BLOOD ADD-ON [facility] [address] [place] [address], [email or web address] NPRG [facility] [address] [place] [address] * BI Breast Screening Bilateral (01/21/2015 8:30 [...] Recently Relevant to Health Maintenance Care Teams Terrazzo Finisher Relationship Specialty Start Date End Date Elsewhere, Pcp PCP - General Internal Medicine 07/10/22
--- OUTSIDE RECORDS SUMMARY | 2024-05-06 07:32 | XMS_ITS | Clinical Summary ---
Author Organization [facility] Address [address] [place] [phone] Phone Care Team Providers Care Multimedia Designer Name Role Phone Kathy Glover MD [...] 11/23/2017 Active ergocalciferol (VITAMIN D2) 1.25 MG (58825 UT) capsule Take 1 tab weekly 0 [...] Comments Blood Pressure 114/84 11/23/2017 12:01 AM DIESEL POWERPLANT MECHANIC Si tting, Left Pulse 80 11/23/2017 12:01 AM DIESEL POWERPLANT MECHANIC Brac hial Temperature 37 ??C (98.6 ??F) 11/23/2017 12:01 AM DIESEL POWERPLANT MECHANIC Respiratory Rate - - Oxygen Saturation - - Inhaled Oxygen Concentration - - Weight 79.4 kg (175 lb) 11/23/2017 12:01 AM DIESEL POWERPLANT MECHANIC Height 167.6 cm (5' 6) 11/23/2017 12:01 AM DIESEL POWERPLANT MECHANIC Body Mass Index 28.25 11/23/2017 12:01 AM DIESEL POWERPLANT MECHANIC Plan of Treatment Not on file Care Teams Multimedia Designer Relationship Specialty Start Date End Date Kathy Glover MD [address] [place] [address] PCP - General 05/11/21
--- OUTSIDE RECORDS SUMMARY | 2024-05-06 07:33 | XMS_ITS | Encounter Summary ---
Author Organization [place] Address [address] [place] [address] Care Team Providers Care Light Out Examiner Name Role Phone Toma Arguello Arun ROBERT Unavailable [phone] Laura Us MD Unavailable Tierra Cancino PA-C Unavailable Luh Acharya PA-C Primary Care Provider + Tierra Cancino PA-C Unavailable Luh Acharya PA-C Unavailable Haven Buckner CNP Unavailable Reason for Visit * Reason Comments Medication Refill Encounter Details Date Type Department Care Team (Late st Contact Info) Description 12/30/[address] [phone] Luh Acharya PA-C [address] [place] [address] [phone] Medication Refill Social History Tobacco Use Types [...] further fills. Luh Acharya MBA, MS, REFUGIO [facility] * Telephone Encounter - Haven Pike CMA [...] be provided Drug does not pass the [facility] [place] Thank you! Ellen Lemon RN [facility] Triage documented in this encounter Plan of Treatment Not on file documented as of this encounter Visit Diagnoses Diagnosis Gastroesophageal reflux disease, unspecified whether esophagitis present documented in this encounter Additional Health Concerns Assessment Noted Time PHQ-9 Depression Total Score: 5 02/08/20 22 7:03 AM CUSTOMER SERVICE REPRESENTATIVE TELLER documented as of this encounter Care Teams Light Out Examiner Relationship Specialty Start Date End Date Luh Acharya PA-C [address] [place] [address] PCP - General Family Medicine 11/21/21 01/02/23 Toma Arguello NP [place] [address] [place] [address] Nurse Practitioner Nurse Practitioner Psych/Mental Health 04/11/17 Laura Us MD [place] [place] [address] Gastroenterology 12/20/18 Tierra Cancino PA-C [address] [place] [address] Physician Underwriting Service Representative Urology 11/17/21 Tierra Cancino PA-C [address] [place] [address] Assigned Surgical Provider 12/11/21 06/08/23 Luh Acharya PA-C [address] [place] [address] Assigned PCP 12/23/22 05/18/23 Haven Buckner, NICOLE [address] [place] [address] Assigned PCP 05/19/23 documented as of this encounter
--- OUTSIDE RECORDS SUMMARY | 2024-05-06 07:33 | XMS_ITS | Encounter Summary ---
Author Organization [facility] Address [address] [facility] [place] [address] Care Team Providers Care Senior Landscape Architect Name Role Phone Toam Arguello YESICA Unavailable Laura Us MD Unavailable Jenise España MD [...] st Contact Info) Description 12/06/2021 [facility] [address] [address] Luh Acharya PA-C [address] [place] [address] [phone] MyChart Communication Social History Tobacco Use Types [...] Total Score: 5 10/25/19 22 7:03 AM MAIL PROCESSING ASSOCIATE documented as of this encounter Care Teams Senior Landscape Architect Relationship Specialty Start Date End Date Luh Acharya PA-C [address] [place] [address] 398772 PCP - General Family Medicine 11/21/21 01/02/23 Toma Arguello NP [address] [address] Nurse Practitioner Nurse Practitioner Psych/Mental Health 04/11/17 Laura Us MD [place] [address] [place] [address] Gastroenterology 12/20/18 Jenise España MD Assigned Heart and Vascular Provider 07/24/21 11/17/22 Tierra Cancino PA-C [address] [place] [address] Physician Director Radio News Urology 11/17/21 Luh Acharya PA-C [address] [place] [address], [place] [address] Assigned PCP 11/27/21 12/31/21 Tierra Cancino PA-C [address] [place] [address] Assigned Surgical Provider 12/11/21 06/08/23 Haven Buckner, CHEMICAL RECOVERY OPERATOR [address] [place] [address], [place] [address] Assigned PCP 01/01/22 12/22/22 Luh Acharya PA-C [address] [place] [address], [place] [address] Assigned PCP 12/23/22 05/18/23 Haven Buckner, CHEMICAL RECOVERY OPERATOR [address] [place] [address], [place] [address] Assigned PCP 05/19/23 documented as of this encounter
--- OUTSIDE RECORDS SUMMARY | 2024-05-06 07:33 | XMS_ITS | Referral Summary ---
Author Organization [facility] Address [address] [place] [address] Care Team Providers Care Transportation Engineering Technician Name Role Phone Elsewhere, Pcp Primary Care Provider Unavailabl e Source Comments Patient records contain information from all sites at [facility]. For routine questions regarding patient records, call [phone] during business hours, M-F 8:00 AM - 5:00 PM Central Time. Record requests for emergency care only can be directed to [phone] at any time.[facility] Allergies Active Allergy Reactions Criticality [...] Comments Blood Pressure 117/79 08/01/2022 2:07 PM SLABBER Pulse 101 08/01/2022 2:07 PM SLABBER Temperature 36.8 ??C (98.2 ??F) 07/10/2022 4:00 AM CD T Respiratory Rate 18 07/10/2022 4:00 AM CDT Oxygen Saturation 90% 07/10/2022 7:00 AM CDT Inhaled Oxygen Concentration - - Weight 96.1 kg (211 lb 13.8 oz) 08/01/2022 2:07 PM SLABBER Height 166.5 cm (5' 5.55) 08/01/2022 2:07 PM CS T Body Mass Index 34.67 08/01/2022 2:07 PM SLABBER Plan of Treatment Not on file Procedures [...] CDT Jorge Browne D.O. LAB BLOOD ADD-ON [facility] [address] [place] [address], [facility] NPRG [facility] [address] [place] [address] * BI Breast Screening Bilateral (01/21/2015 8:30 [...] Recently Relevant to Health Maintenance Care Teams Transportation Engineering Technician Relationship Specialty Start Date End Date Elsewhere, Pcp PCP - General Internal Medicine 07/10/22
--- OUTSIDE RECORDS SUMMARY | 2024-05-06 07:33 | XMS_ITS | Encounter Summary ---
Author Organization [place] Address [address] [facility] [place] [address] Care Team Providers Care C++ Professor Name Role Phone Toma Arguello Arun ROBERT Unavailable [phone] Laura Us MD Unavailable Jenise España MD Unavailable Unavailable iTerra Cancino PA-C Unavailable Luh Acharya PA-C Primary Care Provider + Tierra Cancino PA-C Unavailable Haven Buckner CNP Unavailable Luh Acharya PA-C Unavailable [phone] Haven Buckner CNP Unavailable Reason for Visit * Reason Comments Medication Refill Encounter Details Date Type Department Care Team (Late st Contact Info) Description 09/07/[address] [phone] Luh Acharya PA-C [address] [place] [address] [phone] Medication Refill Social History Tobacco Use Types [...] one refill on file Ellen Lemon RN [facility] Triage HT MECHANIC documented in this encounter Plan of Treatment Not on file documented as of this encounter Visit Diagnoses Diagnosis Gastroesophageal reflux disease, unspecified whether esophagitis present documented in this encounter Additional Health Concerns Assessment Noted Time PHQ-9 Depression Total Score: 5 10/25/19 22 7:03 AM FLIGHT MECHANIC documented as of this encounter Care Teams C++ Professor Relationship Specialty Start Date End Date Luh Acharya PA-C [address] [place] [address] PCP - General Family Medicine 11/21/21 01/02/23 Toma Arguello NP [address] [address] Nurse Practitioner Nurse Practitioner Psych/Mental Health 04/11/17 Laura Us MD [place] [place] [address] Gastroenterology 12/20/18 Jenise España MD Assigned Heart and Vascular Provider 07/24/21 11/17/22 Tierra Cancino PA-C [address] [place] [address] Physician Supplier Engineer Urology 11/17/21 Tierra Cancino PA-C [address] [place] [address] Assigned Surgical Provider 12/11/21 06/08/23 Haven Buckner, MECHANICAL LEAD [address] [place] [address] Assigned PCP 01/01/22 12/22/22 Luh Acharya PA-C [address] [place] [address] Assigned PCP 12/23/22 05/18/23 Haven Buckner, MECHANICAL LEAD [address] [place] [address] Assigned PCP 05/19/23 documented as of this encounter
--- OUTSIDE RECORDS SUMMARY | 2024-05-06 07:33 | XMS_ITS | Clinical Summary ---
Author Organization [facility] Address [address] [place] [address] Care Team Providers Care Electric Motor Control Assembler Name Role Phone Saundra Toma Dias NP Unavailable [phone] Laura Us MD Unavailable Tierra Cancino PA-C Unavailable [phone] Haven Buckner FISH AND WILDLIFE BIOLOGIST Unavailable [phone] Allergies Active Allergy Reactions Criticality Noted Date [...] 180 tablet 3 11/15/2021 Active nystatin (MYCOSTATIN) 134329 UNIT/GM external creamIndications:I ntertriginous candidiasis Apply topically [...] and replacement with titanium plate 07/24/2017 at [place] 07/11/2017 Class 1 obesity with serious comorbidity [...] her. She's working with her neurologist at [facility] and [facility].for postconcussion therapy and evaluation. Did an EEG [...] .- discontinued by the chronic pain clinic -[facility] 04/2017 Maximum quantity per month: #30 Clinic visit frequency required: Q 6 months Controlled substance agreement on file: Yes Date(s): 01/05/2017 Pain Clinic evaluation in the past: No DIRE Total Score(s): 06/03/2015 Total Score 20 Last [facility] website verification: done on 01/05/2017 [email or web address] Intractable migraine without aura and without status migrainosus- [facility] - every 4-6 weeks 06/03/2015 Chronic bilateral low back p ain with right-sided sciatica-- resolved s/p spine surgery with Dr. Sosa 07/24/2017 06/03/2015 Overview: Not going to [facility] at all for her chronic [...] low back pain - managed by [facility] 06/03/2015 Skin cancer, basal [...] FREE T4 REFLEX Routine 11/17/2021 7:16 AM CHANNEL CEMENTER Other fatigue ALBUMIN RANDOM URINE QUANTITATIVE Routine 11/17/2021 7:16 AM CHANNEL CEMENTER Essential hypertension LIPID REFLEX TO DIRECT LDL PANEL Routine 11/17/2021 7:16 AM CHANNEL CEMENTER Hyperlipidemia LDL goal <130 COMPREHENSIVE METABOLIC PANEL Routine 11/17/2021 7:16 AM CHANNEL CEMENTER Hyperlipidemia LDL goal <130 Essential hypertension Essential hypertension with goal blood pressure less than 140/90 MA SCREENING BILATERAL W/ SUNNY Routine 10/13/2021 3:39 PM CHANNEL CEMENTER Visit for screening mammogram CBC WITH PLATELETS AND DIFFERENTIAL STAT 06/06/2021 1:10 PM CDT Tachycardia SOB (shortness of breath) CBC WITH PLATELETS & DIFFERENTIAL STAT 06/06/2021 1:10 PM CDT Tachycardia SOB (shortness of breath) HEPATITIS C SCREEN REFLEX TO HCV RNA QUANT AND GENOTYPE Routine 09/23/2020 9:03 AM CHANNEL CEMENTER Need for hepatitis C screening test HPV HIGH RISK TYPES DNA CERVICAL Routine 09/23/2020 8:44 AM CHANNEL CEMENTER Screening for malignant neoplasm of cervix PAP IMAGED THIN LAYER SCREEN Routine 09/23/2020 8:34 AM CHANNEL CEMENTER Screening for malignant neoplasm of cervix COLONOSCOPY Routine 09/29/2019 8:14 AM CHANNEL CEMENTER PHQ-9 DEPRESSION SCREENING ORDER Routine 07/23/2019 URINE [...] Maintenance Results * (ABNORMAL) UA without Microscopic [[id number]] (12/02/2021 3:23 PM CDT) Color Urine Yellow [...] 3:57 PM CDT [facility] Specific [place] Urine 1.020 1.003 - 1.035 12/02/2021 3:57 [...] URINE O RDERABLES [facility] [address] [facility] [phone] * TSH with free T4 reflex (11/17/2021 7:16 AM CHANNEL CEMENTER) TSH 0.69 0.40 - 4.00 mU/L 11/18/2021 4:49 PM CHANNEL CEMENTER [facility] Blood STRUCTURE OF RIGHT UPPER LIMB / Unknown Venipuncture / Unknown 11/17/2021 7:16 AM CHANNEL CEMENTER 11/17/2021 7:16 AM CHANNEL CEMENTER Chance Bundy PA-C LAB - BLOOD ORDE JENNIFER [facility] [address] [facility], [address] [place] [address], [facility] [phone] * Albumin Random Urine Quantitative with Creat Ratio (11/17/2021 7:16 AM CHANNEL CEMENTER) Creatinine Urine mg/dL 70 mg/dL 11/17/2021 4:27 PM CHANNEL CEMENTER [facility] Albumin Urine mg/L <5 mg/L 11/17/2021 4:27 PM CHANNEL CEMENTER [facility] Albumin Urine mg/g Cr 11/17/2021 4:27 PM CHANNEL CEMENTER [facility] Comment:Unable to calculate: ??Urine creatinine or albumin value below detectable level Urine MID-STREAM URINE SPECIMEN / Unknown Non-blood Collection / Unknown 11/17/2021 7:16 AM CHANNEL CEMENTER 11/17/2021 7:16 AM CHANNEL CEMENTER Chance Bundy PA-C LAB - URINE ORDE RABAMANDA [facility] [address] [place] [address] Lab (no room number, 1st floor of clinic) [place] [address], [facility] [phone] * (ABNORMAL) Lipid panel reflex to direct LDL Fasting (11/17/2021 7:16 AM CHANNEL CEMENTER) Cholesterol 152 <200 mg/dL 11/18/2021 4:49 PM CHANNEL CEMENTER [facility] Triglycerides 308(H) <150 mg/dL 11/18/2021 4:49 PM CHANNEL CEMENTER [facility] Direct Measure HDL 36(L) >=50 mg/dL 11/18/2021 4:49 PM CHANNEL CEMENTER [facility] LDL Cholesterol Calculated 54 <=100 mg/dL 11/18/2021 4:49 PM CHANNEL CEMENTER [facility] Non HDL Cholesterol 116 <130 mg/dL 11/18/2021 4:49 PM CHANNEL CEMENTER [facility] Patient Fasting > 8hrs? Yes 11/18/2021 4:49 PM CHANNEL CEMENTER [facility] Blood STRUCTURE OF RIGHT UPPER LIMB / Unknown Venipuncture / Unknown 11/17/2021 7:16 AM CHANNEL CEMENTER 11/17/2021 7:16 AM CHANNEL CEMENTER Narrative [facility] - 11/18/2021 4:49 PM CHANNEL CEMENTER Cholesterol Desirable: ??<200 mg/dL Triglycerides Normal: ??Less [...] LAB - BLOOD ANNA RODRIGUEZ [facility] [address] [facility] [address], [address] [place] [address], [place] [phone] LABORATORY [facility] [address] Lab (no room number, 1st floor of clinic) [place] [address], [place] [phone] * (ABNORMAL) Comprehensive metabolic panel (BMP + Alb, Alk Phos, ALT, AST, Total. Bili, TP) (11/17/2021 7:16 AM CHANNEL CEMENTER) Sodium 138 133 - 144 mmol/L 11/18/2021 4:49 PM CHANNEL CEMENTER [facility] Potassium 4.7 3.4 - 5.3 mmol/L 11/18/2021 4:49 PM CHANNEL CEMENTER [facility] Chloride 103 94 - 109 mmol/L 11/18/2021 4:49 PM CHANNEL CEMENTER [facility] Carbon Dioxide (CO2) 27 20 - 32 mmol/L 11/18/2021 4:49 PM CHANNEL CEMENTER [facility] Anion Gap 8 3 - 14 mmol/L 11/18/2021 4:49 PM CHANNEL CEMENTER [facility] Urea Nitrogen 16 7 - 30 mg/dL 11/18/2021 4:49 PM CHANNEL CEMENTER [facility] Creatinine 1.24(H) 0.52 - 1.04 mg/dL 11/18/2021 4:49 PM CHANNEL CEMENTER [facility] Calcium 9.1 8.5 - 10.1 mg/dL 11/18/2021 4:49 PM CHANNEL CEMENTER [facility] Glucose 78 70 - 99 mg/dL 11/18/2021 4:49 PM CHANNEL CEMENTER [facility] Alkaline Phosphatase 100 40 - 150 U/L 11/18/2021 4:49 PM CHANNEL CEMENTER [facility] AST 21 0 - 45 U/L 11/18/2021 4:49 PM CHANNEL CEMENTER [facility] ALT 26 0 - 50 U/L 11/18/2021 4:49 PM CHANNEL CEMENTER [facility] Protein Total 7.4 6.8 - 8.8 g/dL 11/18/2021 4:49 PM CHANNEL CEMENTER [facility] Albumin 3.6 3.4 - 5.0 g/dL 11/18/2021 4:49 PM CHANNEL CEMENTER [facility] Bilirubin Total 0.4 0.2 - 1.3 mg/dL 11/18/2021 4:49 PM CHANNEL CEMENTER [facility] GFR Estimate 52(L) >60 mL/min/1.7 3m2 11/18/2021 4:49 PM CHANNEL CEMENTER [facility] Comment:Effective August 182020 eGFRcr in adults is calculated using the 2020 CKD-EPI creatinine equation which includes age and gender (Gloria et al., NEJ, DOI: 10.1056/GRZTpy4937119) Blood STRUCTURE OF RIGHT UPPER LIMB / Unknown Venipuncture / Unknown 11/17/2021 7:16 AM CHANNEL CEMENTER 11/17/2021 7:16 AM CHANNEL CEMENTER Chance Bundy PA-C LAB - BLOOD ANNA RODRIGUEZ [facility] [address] [facility], [address] [address] [phone] * MA Screen Bilateral w/Sunny (10/13/2021 3:39 PM CHANNEL CEMENTER) Anatomical Region Laterality Modality Breast Bilateral Mammography Narrative 10/14/2021 8:52 AM CHANNEL CEMENTER BILATERAL FULL FIELD DIGITAL SCREENING MAMMOGRAM WITH [...] examination will be communicated to the patient. hCance Bundy PA-C IMG MAMMOGRAPHY ORDERABLES * (ABNORMAL) [...] LAB - BLOOD ANNA RODRIGUEZ RH [facility]ORATORY [facility] [address] Lab (1st floor, no room number) [place] [address], [facility] [phone] * Hepatitis C Screen Reflex to HCV RNA Quant and Genotype (09/23/2020 9:03 AM CHANNEL CEMENTER) Hepatitis C Antibody Nonreactive NR^Nonre active 09/23/2020 4:55 PM CHANNEL CEMENTER [facility] Comment: Assay performance characteristics have not been established for newborns, infants, and children Blood specimen (specimen) 09/23/2020 9:03 AM CHANNEL CEMENTER 09/23/2020 9:04 AM CHANNEL CEMENTER Chance Bundy PA-C LAB - BLOOD ANNA RODRIGUEZ [facility] [address] [place] [address] * HPV High Risk Types DNA Cervical (09/23/2020 8:44 AM CHANNEL CEMENTER) HPV Source SurePath 09/23/2020 8:34 AM CHANNEL CEMENTER [facility] HPV 16 DNA Negative NEG^Nega tive 09/29/2020 3:34 PM CHANNEL CEMENTER [facility] HPV 18 DNA Negative NEG^Nega tive 09/29/2020 3:34 PM CHANNEL CEMENTER [facility] Other HR HPV Negative NEG^Nega tive 09/29/2020 3:34 PM CHANNEL CEMENTER [facility] Final Diagnosis This patient's sample is negative for HPV DNA. 09/29/2020 3:34 PM CHANNEL CEMENTER [facility] Comment: This test was developed and [...] Specimen Description Cervical Cells 09/23/2020 8:34 AM CHANNEL CEMENTER [facility] Cervical Cells CERVIX UTERI STRUCTURE / Unknown 09/23/2020 8:44 AM CHANNEL CEMENTER 09/23/2020 9:03 AM CHANNEL CEMENTER Chance Bundy PA-C LAB - BLOOD ANNA RODRIGUEZ [address] [address] * Pap imaged thin layer screen with HPV - recommended age 30 - 65 years (select HPV order below) (09/23/2020 8:34 AM CHANNEL CEMENTER) PAP ELISEO Pastor Report Patient Name: YENNI DYSON MR#: [id number] Specimen #: [id number] Collected: 09/23/2020 Received: 09/24/2020 [...] COLLECTION SITE: Client: ??[facility] Location: [facility]) The technical component of this testing was completed at the [facility], with the professional component performed at the [facility], [address] [place] [phone] ([phone]) COPATH Cytologic material (specimen) 09/23/2020 8:34 AM CHANNEL CEMENTER 09/24/2020 11:15 AM CHANNEL CEMENTER Chance Bundy PA-C LAB - OPTIME CLI NICAL SPECIMEN COPATH * COLONOSCOPY (09/29/2019 8:14 AM CHANNEL CEMENTER) COLONOSCOPY [facility] Patient Name: Yenni Dyson ? Procedure Date: [...] # [id number], ?[place] # [id number], SN # [id number] was introduced through ?the anus and advanced [...] Note Initiated On: 09/29/2019 8:14 AM MRN: ?[id number] Procedure Date: ? 09/29/2019 8:14:18 AM Scope Withdrawal Time: 0 hours 13 minutes 33 seconds Total Procedure Duration: 0 hours 19 minutes 46 seconds Estimated Blood Loss: ? none Scope In: 9:00:41 AM Scope Out: 9:20:27 AM RADIOLOGY RESULTS 09/29/2019 8:14 AM CHANNEL CEMENTER Heber Glover MD PROCEDURES RADIOLOGY RESULTS * PHQ-9 DEPRESSION SCREENING ORDER (07/23/2019) Pathologist [facility] PHQ9 SCORE 5 Narrative Caro Marino - 07/23/2019 [facility] VISIT NOTE Provider Outside OTHER * (ABNORMAL) Drug Abuse Screen Panel 13, Urine (Pain Care Package) (07/11/2018 2:01 PM CDT) Pathologist [facility] Cannabinoids (09-hhe-3-carboxy- 9-THC) Not Detected NDET^Not Detected ng/mL 07/11/2018 5:33 PM CDT [facility] Comment:Cutoff for a negativ e cannabinoid is 50 ng/mL or less. Phencyclidine (Phencyclidine) Not Detected NDET^Not Detected ng/mL 07/11/2018 5:33 PM CDT [facility] Comment:Cutoff for a negativ e PCP is 25 ng/mL or less. Cocaine (Benzoylecgonine) Not Detected NDET^Not Detected ng/mL 07/11/2018 5:33 PM CDT [facility] Comment:Cutoff for a negativ e cocaine is 150 ng/ml or less. Methamphetamine (d-Methamphetamine ) Not Detected NDET^Not Detected ng/mL 07/11/2018 5:33 PM CDT [facility] Comment:Cutoff for a negativ e methamphetamine is 500 ng/ml or less. Opiates (Morphine) Detected, Abnormal Result(A) NDET^Not Detected ng/mL 07/11/2018 5:33 PM CDT [facility] Comment: Cutoff for a positive opiate is greater than 100 ng/ml. This is an unconfirmed screening result to be used for medical purposes only. Order [id number] for confirmation or individual confirmation tests to [facility]. Amphetamine (d-Amphetamine) Not Detected NDET^Not Detected ng/mL 07/11/2018 5:33 PM CDT [facility] Comment:Cutoff for a negativ e amphetamine is 500 ng/mL or less. Benzodiazepines (Nordiazepam) Not Detected NDET^Not Detected ng/mL 07/11/2018 5:33 PM CDT [facility] Comment:Cutoff for a negativ e benzodiazepine is 150 ng/ml or less. Tricyclic Antidepressants (Desipramine) Detected, Abnormal Result(A) NDET^Not Detected ng/mL 07/11/2018 5:33 PM CDT [facility] Comment: Cutoff for a positive tricyclic antidepressant is greater than 300 ng/ml. This is an unconfirmed screening result to be used for medical purposes only. Order [id number] for confirmation or individual confirmation tests to [facility]. Methadone (Methadone) Not Detected NDET^Not Detected ng/mL 07/11/2018 5:33 PM CDT [facility] Comment:Cutoff for a negativ e methadone is 200 ng/ml or less. Barbiturates (Butalbital) Not Detected NDET^Not Detected ng/mL 07/11/2018 5:33 PM CDT [facility] Comment:Cutoff for a negativ e barbituate is 200 ng/ml or less. Oxycodone (Oxycodone) Not Detected NDET^Not Detected ng/mL 07/11/2018 5:33 PM CDT [facility] Comment:Cutoff for a negativ e Oxycodone is 100 ng/mL or less. Propoxyphene (Norpropoxyphene) Not Detected NDET^Not Detected ng/mL 07/11/2018 5:33 PM CDT [facility] Comment:Cutoff for a negativ e propoxyphene is 300 ng/ml or less Buprenorphine (Buprenorphine) Not Detected NDET^Not Detected ng/mL 07/11/2018 5:33 PM CDT [facility] Comment:Cutoff for a negativ e buprenorphine is 10 ng/ml or less Urine specimen (specimen) 07/11/2018 2:01 PM CDT 07/11/2018 2:02 PM CDT Heber Glover MD LAB - URINE ORD ERABLES [facility] [address] [place] [address] * HIV Screening (07/11/2018 10:09 AM CDT) HIV Antigen Antibody Combo Nonreactive NR^Nonrea ctive 07/12/2018 9:42 AM CDT [facility] Comment:HIV-1 p24 Ag & HIV-1 /HIV-2 Ab Not Detected Blood specimen (specimen) 07/11/2018 10:09 AM CDT 07/11/2018 10:10 AM CDT Heber Glover MD LAB - BLOOD ORD ERABLES Performing Organization Address City/[facility] Co de Phone Number [facility] [address] [place], [place] [phone] [place] [address] * CT Chest/Abdomen/Pelvis w Contrast (04/16/2016 3:09 [...] Advance Directives For more information, please contact: [phone] * Full Code (Latest Code Status on File) Date Activated Date Inactivated Comments 06/27/2017 4:33 PM 06/28/2017 4:51 PM * Full Code Date Activated Date Inactivated Comments 07/07/2016 2:47 PM 06/27/2017 4:33 PM * Full Code Date Activated Date Inactivated Comments 07/06/2016 5:24 PM 07/07/2016 2:47 PM Care Teams Electric Motor Control Assembler Relationship Specialty Start Date End Date Toma Arguello NP [facility] [address] [place] [address] Nurse Practitioner Nurse Practitioner Psych/Mental Health 04/11/17 Laura Us MD [facility] [address] [place] [address] Gastroenterology 12/20/18 Tierra Cancino PA-C [address] [place] [address] Physician Geophysicist Urology 11/17/21 Haven Buckner, FISH AND WILDLIFE BIOLOGIST [address] [place] [id number] Assigned PCP 05/19/23
--- OUTSIDE RECORDS SUMMARY | 2024-05-06 07:33 | XMS_ITS ---
Author Organization [facility] Address [address] [place] [address] Care Team Providers Care Grade Foreman Name Role Phone Unavailable Unavailable Unavailable Surgery Details Not on file Complications Check Surgery Details section. Procedure Estimated Blood Loss Check Surgery Details section. Procedure Findings Check Surgery Details section. Procedure Specimens Taken Check Surgery Details section.
--- OUTSIDE RECORDS SUMMARY | 2024-05-06 07:33 | XMS_ITS | Clinical Summary ---
Author Organization [employer] [facility] Address [place], [place] [address] Care Team Providers Care Forestry Worker Name Role Phone Kathy Glover MD Primary Care Provider [phone] Allergies Active Allergy Reactions Criticality Noted Date [...] MAX 3 PER DAY 0 08/15/2018 Active Multivits,Ca,Water Safety Instructor als-Iron-FA (THERA M PLUS, FERROUS FUMARAT,) 9 mg iron-400 mcg tablet Take 1 tablet by mouth. Active omega 3-kgu-hkh-fish oil (FISH OIL) 300-1,000 mg cpDR Take 1,000 mg by mouth. Active AFLURIA QUAD 1732-3270, PF, 60 mcg/0.5 mL IM syringe ADM [...] this topic Medical Devices Implanted Type Area Astronomy Professor Device Identifier Shelf Expiration Date Model / Serial / Lot Bone Matrix Md Infuse Bmp - [id number] Implanted:Qty: 1 on 07/24/2017 by Danish Sosa MD at [facility] N/A: Spine Medtronic Spine/Ortho 11/14/2018 [id number]# / / [id number] Bone 15cc Allosource Crushed Canclls - [id number] Implanted:Qty: 1 on 07/24/2017 by Danish Sosa MD at [facility] N/A: Spine Allosource 11/21/2020 [id number]# / / [id number] Bone Matrix 5cc Progenix Plus Putty Dbm - [id number] Implanted:Qty: 1 on 07/24/2017 by Danish Sosa MD at [facility] N/A: Spine Medtronic Spine/Ortho 12/27/2018 [id number]# / / [id number] Plate Lmbr Ovid-L Stand Alone Lock - [id number] Implanted:Qty: 1 on 07/24/2017 by Danish Sosa MD at [facility] N/A: Spine Jeromy Spine [id number] 00# / / Screw Lmbr 6x25mm Ancr-L Standalone - [id number] Implanted:Qty: 3 on 07/24/2017 by Danish Sosa MD at [facility] N/A: Spine Jeromy Spine [id number] 25# / / Spacer Lmbr [id number] 12deg Avs-L Stand Alone - [id number] Implanted:Qty: 1 on 07/24/2017 by Danish Sosa MD at [facility] N/A: Spine Jeromy Spine [id number] 62# / / Explanted Type Area Astronomy Professor Device Identifier Shelf Expiration Date Model / Serial / Lot Hardware Removal Explanted:Qty: 1 on 07/24/2017 by Danish Sosa MD at [facility] N/A: Spine Description:One Piece Spinal Hardware Removed Procedures Procedure Name Priority Date/Time Associated Diagnosis Comments HPV THIN PREP Routine 11/22/2023 8:06 AM INSTRUCTOR ADJUNCT SURGICAL TECHNICIAN from Last 3 Months or Most Recently Relevant to Health Maintenance Results * HPV HIGH RISK (11/22/2023 8:06 AM INSTRUCTOR ADJUNCT SURGICAL TECHNICIAN) TYPE 16 Negative Negative 11/26/2023 5:04 PM CDT [facility] TYPE 18 Negative Negative 11/26/2023 5:04 PM CDT [facility] OTHER HIGH RISK TYPES Negative Negative 11/26/2023 5:04 PM CDT [facility] Other (Cervical/Vagina l) 11/22/2023 8:06 AM INSTRUCTOR ADJUNCT SURGICAL TECHNICIAN 11/23/2023 8:22 AM INSTRUCTOR ADJUNCT SURGICAL TECHNICIAN Narrative [facility] - 11/26/2023 5:04 PM CDT HPV types 16, 18, 31, 33, 35, 39, 45, 51, 52, 56, 58, 59, 66 and 68 DNA were undetectable or below the pre-set threshold. Methodology: Duane Fatoumata 4800 HPV Test Lela Giraldo MD MICROBIOLOGY [facility] [address] [place] [address], from Last 3 Months or Most Recently Relevant to Health Maintenance Advance Directives * Full Code (Latest Code Status on File) Date Activated Date Inactivated Comments 09/27/2018 3:08 PM 09/27/2018 5:47 PM Care Teams Forestry Worker Relationship Specialty Start Date End Date Kathy Glover MD [address] [place] [id number] PCP - General Family Practice 09/25/18
--- OUTSIDE RECORDS SUMMARY | 2024-05-06 07:33 | XMS_ITS | Referral Summary ---
Author Organization [place] Address [address] [facility] [place] [address] Care Team Providers Care Farm Contractor Buyer Name Role Phone Saundra Toma Dias NP Unavailable Laura Us MD Unavailable Tierra Cancino PA-C Unavailable Haven Buckner COURTESY CAR DRIVER Unavailable [phone] Allergies Active Allergy Reactions Criticality Noted Date [...] 180 tablet 3 11/15/2021 Active nystatin (MYCOSTATIN) 465517 UNIT/GM external creamIndications:I ntertriginous candidiasis Apply topically [...] and replacement with titanium plate 07/24/2017 at [place] 07/11/2017 Class 1 obesity with serious comorbidity [...] her. She's working with her neurologist at [facility] and [place].for postconcussion therapy and evaluation. 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 Sosa 07/24/2017 06/03/2015 Overview: Not going to [facility] at all for her chronic pain [...] c low back pain - managed by [facility] Pain [facility] 06/03/2015 Skin cancer, [...] FREE T4 REFLEX Routine 11/17/2021 7:16 AM GROUND SUPPORT AGENT Other fatigue ALBUMIN RANDOM URINE QUANTITATIVE Routine 11/17/2021 7:16 AM GROUND SUPPORT AGENT Essential hypertension LIPID REFLEX TO DIRECT LDL PANEL Routine 11/17/2021 7:16 AM GROUND SUPPORT AGENT Hyperlipidemia LDL goal <130 COMPREHENSIVE METABOLIC PANEL Routine 11/17/2021 7:16 AM GROUND SUPPORT AGENT Hyperlipidemia LDL goal <130 Essential hypertension Essential hypertension with goal blood pressure less than 140/90 MA SCREENING BILATERAL W/ SUNNY Routine 10/13/2021 3:39 PM GROUND SUPPORT AGENT Visit for screening mammogram CBC WITH PLATELETS AND DIFFERENTIAL STAT 06/06/2021 1:10 PM CDT Tachycardia SOB (shortness of breath) CBC WITH PLATELETS & DIFFERENTIAL STAT 06/06/2021 1:10 PM CDT Tachycardia SOB (shortness of breath) HEPATITIS C SCREEN REFLEX TO HCV RNA QUANT AND GENOTYPE Routine 09/23/2020 9:03 AM GROUND SUPPORT AGENT Need for hepatitis C screening test HPV HIGH RISK TYPES DNA CERVICAL Routine 09/23/2020 8:44 AM GROUND SUPPORT AGENT Screening for malignant neoplasm of cervix PAP IMAGED THIN LAYER SCREEN Routine 09/23/2020 8:34 AM GROUND SUPPORT AGENT Screening for malignant neoplasm of cervix COLONOSCOPY Routine 09/29/2019 8:14 AM GROUND SUPPORT AGENT PHQ-9 DEPRESSION SCREENING ORDER Routine 07/23/2019 URINE [...] Maintenance Results * (ABNORMAL) UA without Microscopic [[id number]] (12/02/2021 3:23 PM CDT) Color Urine Yellow [...] 3:57 PM CDT [facility] CONTR[place] Specific [place] Urine 1.020 1.003 - 1.035 12/02/2021 3:57 [...] LAB - URINE O RDERABLES [facility] [address] [place] [address], [facility] [phone] * TSH with free T4 reflex (11/17/2021 7:16 AM GROUND SUPPORT AGENT) TSH 0.69 0.40 - 4.00 mU/L 11/18/2021 4:49 PM GROUND SUPPORT AGENT [facility] Blood STRUCTURE OF RIGHT UPPER LIMB / Unknown Venipuncture / Unknown 11/17/2021 7:16 AM GROUND SUPPORT AGENT 11/17/2021 7:16 AM GROUND SUPPORT AGENT Chance Bundy PA-C LAB - BLOOD ORDE JENNIFER [facility] Core Lab [address] [facility], [address] [place] [address], [facility] [phone] * Albumin Random Urine Quantitative with Creat Ratio (11/17/2021 7:16 AM GROUND SUPPORT AGENT) Creatinine Urine mg/dL 70 mg/dL 11/17/2021 4:27 PM GROUND SUPPORT AGENT [facility] Albumin Urine mg/L <5 mg/L 11/17/2021 4:27 PM GROUND SUPPORT AGENT [facility] Albumin Urine mg/g Cr 11/17/2021 4:27 PM GROUND SUPPORT AGENT [facility] Comment:Unable to calculate: ??Urine creatinine or albumin value below detectable level Urine MID-STREAM URINE SPECIMEN / Unknown Non-blood Collection / Unknown 11/17/2021 7:16 AM GROUND SUPPORT AGENT 11/17/2021 7:16 AM GROUND SUPPORT AGENT Chance Bundy PA-C LAB - URINE ORDE JENNIFER [facility] [address] Lab (no room number, 1st floor of clinic) [place] [address], [place] [phone] * (ABNORMAL) Lipid panel reflex to direct LDL Fasting (11/17/2021 7:16 AM GROUND SUPPORT AGENT) Cholesterol 152 <200 mg/dL 11/18/2021 4:49 PM GROUND SUPPORT AGENT [facility] Triglycerides 308(H) <150 mg/dL 11/18/2021 4:49 PM GROUND SUPPORT AGENT [facility] Direct Measure HDL 36(L) >=50 mg/dL 11/18/2021 4:49 PM GROUND SUPPORT AGENT [facility] LDL Cholesterol Calculated 54 <=100 mg/dL 11/18/2021 4:49 PM GROUND SUPPORT AGENT [facility] Non HDL Cholesterol 116 <130 mg/dL 11/18/2021 4:49 PM GROUND SUPPORT AGENT [facility] Patient Fasting > 8hrs? Yes 11/18/2021 4:49 PM GROUND SUPPORT AGENT [facility] Blood STRUCTURE OF RIGHT UPPER LIMB / Unknown Venipuncture / Unknown 11/17/2021 7:16 AM GROUND SUPPORT AGENT 11/17/2021 7:16 AM GROUND SUPPORT AGENT Narrative [facility] - 11/18/2021 4:49 PM GROUND SUPPORT AGENT Cholesterol Desirable: ??<200 mg/dL Triglycerides Normal: ??Less [...] LAB - BLOOD ANNA RODRIGUEZ [facility] Core Lab [address] [facility] [address] [facility], [address] [place] [address], [place] [phone] LABORATORY [facility] Lab [address] Lab (no room number, 1st floor of clinic) [place] [address], [facility] [phone] * (ABNORMAL) Comprehensive metabolic panel (BMP + Alb, Alk Phos, ALT, AST, Total. Bili, TP) (11/17/2021 7:16 AM GROUND SUPPORT AGENT) Sodium 138 133 - 144 mmol/L 11/18/2021 4:49 PM GROUND SUPPORT AGENT [facility] Potassium 4.7 3.4 - 5.3 mmol/L 11/18/2021 4:49 PM GROUND SUPPORT AGENT [facility] Chloride 103 94 - 109 mmol/L 11/18/2021 4:49 PM GROUND SUPPORT AGENT [facility] Carbon Dioxide (CO2) 27 20 - 32 mmol/L 11/18/2021 4:49 PM GROUND SUPPORT AGENT [facility] Anion Gap 8 3 - 14 mmol/L 11/18/2021 4:49 PM GROUND SUPPORT AGENT [facility] Urea Nitrogen 16 7 - 30 mg/dL 11/18/2021 4:49 PM GROUND SUPPORT AGENT [facility] Creatinine 1.24(H) 0.52 - 1.04 mg/dL 11/18/2021 4:49 PM GROUND SUPPORT AGENT [facility] Calcium 9.1 8.5 - 10.1 mg/dL 11/18/2021 4:49 PM GROUND SUPPORT AGENT [facility] Glucose 78 70 - 99 mg/dL 11/18/2021 4:49 PM GROUND SUPPORT AGENT [facility] Alkaline Phosphatase 100 40 - 150 U/L 11/18/2021 4:49 PM GROUND SUPPORT AGENT [facility] AST 21 0 - 45 U/L 11/18/2021 4:49 PM GROUND SUPPORT AGENT [facility] ALT 26 0 - 50 U/L 11/18/2021 4:49 PM GROUND SUPPORT AGENT [facility] Protein Total 7.4 6.8 - 8.8 g/dL 11/18/2021 4:49 PM GROUND SUPPORT AGENT [facility] Albumin 3.6 3.4 - 5.0 g/dL 11/18/2021 4:49 PM GROUND SUPPORT AGENT [facility] Bilirubin Total 0.4 0.2 - 1.3 mg/dL 11/18/2021 4:49 PM GROUND SUPPORT AGENT [facility] GFR Estimate 52(L) >60 mL/min/1.7 3m2 11/18/2021 4:49 PM GROUND SUPPORT AGENT [facility] Comment:Effective August 182020 eGFRcr in adults is calculated using the 2020 CKD-EPI creatinine equation which includes age and gender (Gloria et al., NEJM, DOI: 10.1056/IKUPdg2609266) Blood STRUCTURE OF RIGHT UPPER LIMB / Unknown Venipuncture / Unknown 11/17/2021 7:16 AM GROUND SUPPORT AGENT 11/17/2021 7:16 AM GROUND SUPPORT AGENT Chance Bundy PA-C LAB - BLOOD ANNA RODRIGUEZ LABORATORY [facility] Core Lab [address] [facility], [address] [place] [address], [facility] [phone] * MA Screen Bilateral w/Sunny (10/13/2021 3:39 PM GROUND SUPPORT AGENT) Anatomical Region Laterality Modality Breast Bilateral Mammography Narrative 10/14/2021 8:52 AM GROUND SUPPORT AGENT BILATERAL FULL FIELD DIGITAL SCREENING MAMMOGRAM WITH [...] LAB - BLOOD ANNA RODRIGUEZ RH LABORATORY [facility] Lab [address] Lab (1st floor, no room number) [place] [address], [facility] [phone] * Hepatitis C Screen Reflex to HCV RNA Quant and Genotype (09/23/2020 9:03 AM GROUND SUPPORT AGENT) Hepatitis C Antibody Nonreactive NR^Nonre active 09/23/2020 4:55 PM GROUND SUPPORT AGENT [facility] Comment: Assay performance characteristics have not been established for newborns, infants, and children Blood specimen (specimen) 09/23/2020 9:03 AM GROUND SUPPORT AGENT 09/23/2020 9:04 AM GROUND SUPPORT AGENT Chance Bundy PA-C LAB - BLOOD ANNA RODRIGUEZ [facility] [address] [place] [address] * HPV High Risk Types DNA Cervical (09/23/2020 8:44 AM GROUND SUPPORT AGENT) HPV Source [facility] 09/23/2020 8:34 AM GROUND SUPPORT AGENT [facility] HPV 16 DNA Negative NEG^Nega tive 09/29/2020 3:34 PM GROUND SUPPORT AGENT [facility] HPV 18 DNA Negative NEG^Nega tive 09/29/2020 3:34 PM GROUND SUPPORT AGENT [facility] Other HR HPV Negative NEG^Nega tive 09/29/2020 3:34 PM GROUND SUPPORT AGENT [facility] Final Diagnosis This patient's sample is negative for HPV DNA. 09/29/2020 3:34 PM GROUND SUPPORT AGENT [facility] Comment: This test was developed and its performance characteristics determined by the [facility], Molecular Diagnostics Laboratory. It has not [...] Specimen Description Cervical Cells 09/23/2020 8:34 AM GROUND SUPPORT AGENT [facility] Cervical Cells CERVIX UTERI STRUCTURE / Unknown 09/23/2020 8:44 AM GROUND SUPPORT AGENT 09/23/2020 9:03 AM GROUND SUPPORT AGENT Chance Bundy PA-C LAB - BLOOD ANNA RODRIGUEZ [address] [address] * Pap imaged thin layer screen with HPV - recommended age 30 - 65 years (select HPV order below) (09/23/2020 8:34 AM GROUND SUPPORT AGENT) PAP ELISEO Pastor Report Patient Name: YENNI DYSON MR#: [id number] Specimen #: [id number] Collected: 09/23/2020 Received: 09/24/2020 [...] adenocarcinomas or other cancers. COLLECTION SITE: Client: ??[facility] Location: [facility] () The technical component of this testing was completed at the [facility], with the professional component performed at the [facility], [address] [place] [phone] ([phone]) COPATH Cytologic material (specimen) 09/23/2020 8:34 AM GROUND SUPPORT AGENT 09/24/2020 11:15 AM GROUND SUPPORT AGENT Chance Bundy PA-C LAB - OPTIME CLI NICAL SPECIMEN COPATH * COLONOSCOPY (09/29/2019 8:14 AM GROUND SUPPORT AGENT) COLONOSCOPY [facility] Patient Name: Yenni Dyson ? Procedure [...] # [id number], ?[place] # [id number], SN # [id number] was introduced through ?the anus and advanced [...] Note Initiated On: 09/29/2019 8:14 AM MRN: ?[id number] Procedure Date: ? 09/29/2019 8:14:18 AM Scope Withdrawal Time: 0 hours 13 minutes 33 seconds Total Procedure Duration: 0 hours 19 minutes 46 seconds Estimated Blood Loss: ? none Scope In: 9:00:41 AM Scope Out: 9:20:27 AM RADIOLOGY RESULTS 09/29/2019 8:14 AM GROUND SUPPORT AGENT Heber Glover MD PROCEDURES RADIOLOGY RESULTS * PHQ-9 DEPRESSION SCREENING ORDER (07/23/2019) PHQ9 SCORE 5 Narrative Caro Marino - 07/23/2019 [facility] VISIT NOTE Provider Outside OTHER * (ABNORMAL) Drug Abuse Screen Panel 13, Urine (Pain Care Package) (07/11/2018 2:01 PM CDT) Cannabinoids (94-uxc-6-carboxy- 9-THC) Not Detected NDET^Not Detected ng/mL 07/11/2018 5:[address] [facility] Comment:Cutoff for a negativ e cannabinoid is 50 ng/mL or less. Phencyclidine (Phencyclidine) Not Detected NDET^Not Detected ng/mL 07/11/2018 5:[address] [facility] Comment:Cutoff for a negativ e PCP is 25 ng/mL or less. Cocaine (Benzoylecgonine) Not Detected NDET^Not Detected ng/mL 07/11/2018 5:[address] [facility] Comment:Cutoff for a negativ e cocaine is 150 ng/ml or less. Methamphetamine (d-Methamphetamine ) Not Detected NDET^Not Detected ng/mL 07/11/2018 5:[address] [facility] Comment:Cutoff for a negativ e methamphetamine is 500 ng/ml or less. Opiates (Morphine) Detected, Abnormal Result(A) NDET^Not Detected ng/mL 07/11/2018 5:[address] [facility] Comment: Cutoff for a positive opiate is greater than 100 ng/ml. This is an unconfirmed screening result to be used for medical purposes only. Order [id number] for confirmation or individual confirmation tests to [facility]. Amphetamine (d-Amphetamine) Not Detected NDET^Not Detected ng/mL 07/11/2018 5:[address] [facility] Comment:Cutoff for a negativ e amphetamine is 500 ng/mL or less. Benzodiazepines (Nordiazepam) Not Detected NDET^Not Detected ng/mL 07/11/2018 5:[address] [facility] Comment:Cutoff for a negativ e benzodiazepine is 150 ng/ml or less. Tricyclic Antidepressants (Desipramine) Detected, Abnormal Result(A) NDET^Not Detected ng/mL 07/11/2018 5:[address] [facility] Comment: Cutoff for a positive tricyclic antidepressant is greater than 300 ng/ml. This is an unconfirmed screening result to be used for medical purposes only. Order [id number] for confirmation or individual confirmation tests to [facility]. Methadone (Methadone) Not Detected NDET^Not Detected ng/mL 07/11/2018 5:[address] [facility] Comment:Cutoff for a negativ e methadone is 200 ng/ml or less. Barbiturates (Butalbital) Not Detected NDET^Not Detected ng/mL 07/11/2018 5:[address] [facility] Comment:Cutoff for a negativ e barbituate is 200 ng/ml or less. Oxycodone (Oxycodone) Not Detected NDET^Not Detected ng/mL 07/11/2018 5:[address] [facility] Comment:Cutoff for a negativ e Oxycodone is 100 ng/mL or less. Propoxyphene (Norpropoxyphene) Not Detected NDET^Not Detected ng/mL 07/11/2018 5:[address] [facility] Comment:Cutoff for a negativ e propoxyphene is 300 ng/ml or less Buprenorphine (Buprenorphine) Not Detected NDET^Not Detected ng/mL 07/11/2018 5:[address] [facility] Comment:Cutoff for a negativ e buprenorphine is 10 ng/ml or less Urine specimen (specimen) 07/11/2018 2:01 PM CDT 07/11/2018 2:02 PM CDT Heber Glover MD LAB - URINE ORD ERABLES [facility] [address] [place] [address] * HIV Screening (07/11/2018 10:09 AM CDT) HIV Antigen Antibody Combo Nonreactive NR^Nonrea ctive 07/12/2018 9:42 AM CDT [facility] Comment:HIV-1 p24 Ag & HIV-1 /HIV-2 Ab Not Detected Blood specimen (specimen) 07/11/2018 10:09 AM CDT 07/11/2018 10:10 AM CDT Heber Glover MD LAB - BLOOD ORD ERABLES Performing Organization Address City/[facility]/ZIP Co de Phone Number [facility] [address] [place], [place] [address] * CT Chest/Abdomen/Pelvis w Contrast (04/16/2016 3:09 [...] Advance Directives For more information, please contact: [phone] * Full Code (Latest Code Status on File) Date Activated Date Inactivated Comments 06/27/2017 4:33 PM 06/28/2017 4:51 PM * Full Code Date Activated Date Inactivated Comments 07/07/2016 2:47 PM 06/27/2017 4:33 PM * Full Code Date Activated Date Inactivated Comments 07/06/2016 5:24 PM 07/07/2016 2:47 PM Care Teams Farm Contractor Buyer Relationship Specialty Start Date End Date Toma Arguello NP [address] [place] [address] Nurse Practitioner Nurse Practitioner Psych/Mental Health 04/11/17 Laura Us MD [facility] [address] [place] [address] Gastroenterology 12/20/18 Tierra Cancino PA-C [address] [facility] [address] [address] Physician Catering Truck Driver Urology 11/17/21 Haven Buckner, NICOLE [address] [place] [address] [phone] Assigned PCP 05/19/23
--- OUTSIDE RECORDS SUMMARY | 2024-05-06 07:33 | XMS_ITS | Encounter Summary ---
Author Organization [place] Address [address] [place] [address] Care Team Providers Care Hospice Fellow Name Role Phone Toma Arguello YESICA Unavailable [phone] Laura Us MD Unavailable Jenise España MD Unavailable Unavailable Tierra Cancino PA-C Unavailable Luh Acharya PA-C Primary Care Provider + Luh Acharya PA-C Unavailable [phone] Tierra Cancino PA-C Unavailable Haven Buckner CNP Unavailable Luh Acharya PA-C Unavailable [phone] Haven Buckner CNP Unavailable Encounter Details Date Type Department Care Team (Late st Contact Info) Description 11/29/2021 [facility] [address] [place] [address] Luh Acharya PA-C [address] [place] [address] [phone] Social History Tobacco Use Types Packs/Day Years [...] advise Thank you Manisha Patel RN, BSN [place] Triage documented in this encounter Plan of Treatment Not on file documented as of this encounter Visit Diagnoses Not on filedocumented in this encounter Additional Health Concerns Infection Onset Date Last Indicated Resolved Time Rule Out COVID-19 12/19/2021 12/19/2021 12/20/2021 1:02 PM CDT Assessment Noted Time PHQ-9 Depression Total Score: 5 10/25/19 22 7:03 AM INFORMATION ARCHITECT documented as of this encounter Care Teams Hospice Fellow Relationship Specialty Start Date End Date Luh Acharya PA-C [address] [place] [address] [phone] PCP - General Family Medicine 11/21/21 01/02/23 Toma Arguello NP [facility] [address] [place], [place] [phone] Nurse Practitioner Nurse Practitioner Psych/Mental Health 04/11/17 Laura Us MD [address] [address] Gastroenterology 12/20/18 Jenise España MD Assigned Heart and Vascular Provider 07/24/21 11/17/22 Tierra Cancino PA-C [address] [place] [address] Physician School Guidance Counselor Urology 11/17/21 Luh Acharya PA-C [address] [place] [address] Assigned PCP 11/27/21 12/31/21 Tierra Cancino PA-C [address] [place] [address] Assigned Surgical Provider 12/11/21 06/08/23 Haven Buckner, NICOLE [address] [place] [address] Assigned PCP 01/01/22 12/22/22 Luh Acharya PA-C [address] [place] [address] Assigned PCP 12/23/22 05/18/23 Haven Buckner, NICOLE [address] [place] [address] Assigned PCP 05/19/23 documented as of this encounter
--- OUTSIDE RECORDS SUMMARY | 2024-05-06 07:34 | XMS_ITS | Encounter Summary ---
Author Organization [place] Address [address] [facility] [place] [address] Care Team Providers Care Guest Services Attendant Name Role Phone Toma Arguello YESICA Unavailable [phone] Laura Us MD Unavailable [facility] Primary Care Provider Haven Buckner CNP Unavailable [phone] Jenise España MD Unavailable Unavailable Tierra Cancino-C Unavailable [phone] Luh Acharya-C Primary Care Provider + Luh Acharya PA-C Unavailable [phone] Tierra Cancino-C Unavailable [phone] Haven Buckner CNP Unavailable [phone] Luh Acharya PA-C Unavailable [phone] Haven Buckner CNP Unavailable [phone] Reason for Visit * Reason Comments Medication Refill Encounter Details Date Type Department Care Team (Late st Contact Info) Description 10/14/[address] [phone] Luh Acharya PA-C [address] [place] [phone] Medication Refill Social History Tobacco Use Types [...] COVID-19? No / Unsure 10/13/2021 3:21 PM ELECTRICIAN JOURNEYMAN WIREMAN documented as of this encounter Miscellaneous Notes * Telephone Encounter - Nancy Monte RN - 10/17/2021 5:44 PM CST Prescription approved per [facility] Refill Protocol. Next 5 appointments (look out 90 days) Nov 15, 2021 1:40 PM (Arrive by 1:20 PM) Adult Preventative Visit with Luh Acharya PA-C [facility] [address] [place] [address]. [facility] [phone] Nancy Monte RN [facility] TRICIAN JOURNEYMAN WIREMAN documented in this encounter Plan of Treatment [...] documented as of this encounter Care Teams Guest Services Attendant Relationship Specialty Start Date End Date Clinic - [facility] [address] [place] [address] [phone] PCP - General 10/06/20 11/20/21 Luh Acharya PA-C [address] [place] [address] [phone] PCP - General Family Medicine 11/21/21 01/02/23 Toma Arguello NP [address] [phone] Nurse Practitioner Nurse Practitioner Psych/Mental Health 04/11/17 Laura Us MD [address] [address] Gastroenterology 12/20/18 Haven Buckner, NICOLE [address] [place] [address] [phone] Assigned PCP 05/22/21 11/26/21 Jenise España MD Assigned Heart and Vascular Provider 07/24/21 11/17/22 Tierra Cancino PA-C [address] [place], [place] [address] Physician Sole Rounding Machine Operator Urology 11/17/21 Luh Acharya PA-C [address] [place] [address] Assigned PCP 11/27/21 12/31/21 Tierra Cancino PA-C [address] [place] [address] Assigned Surgical Provider 12/11/21 06/08/23 Haven Buckner, CHIROPRACTOR ASSISTANT [address] [place] [address] Assigned PCP 01/01/22 12/22/22 Luh Acharya PA-C [address] [place] [address] Assigned PCP 12/23/22 05/18/23 Haven Buckner, CHIROPRACTOR ASSISTANT [address] [place] [address] Assigned PCP 05/19/23 documented as of this encounter
--- OUTSIDE RECORDS SUMMARY | 2024-05-06 07:34 | XMS_ITS | Encounter Summary ---
Author Organization [place] Address [address] [facility] [place] [address] Care Team Providers Care Clinical Office Technician Name Role Phone Toma Arguello YESICA Unavailable [phone] Laura Us MD Unavailable [facility] Primary Care Provider Haven Buckner STUDENT Unavailable [phone] Jenise España MD Unavailable Unavailable Tierra Cancino-C Unavailable [phone] Luh Acharya-C Primary Care Provider + Luh Acharya-C Unavailable +[phone] Tierra Cancino-C Unavailable [phone] Haven Buckner CNP Unavailable [phone] Luh Acharya PA-C Unavailable + [phone] Haven Buckner CNP Unavailable [phone] Encounter Details Date Type Department Care Team (Late st Contact Info) Description 10/23/2021 [facility] [address] [address] Shivani Sparrow RN Social History [...] COVID-19? No / Unsure 10/13/2021 3:21 PM CELL TUBER MACHINE documented as of this encounter Plan of Treatment Not on file documented as of this encounter Visit Diagnoses Not on filedocumented in this encounter Additional Health Concerns Infection Onset Date Last Indicated Resolved Time Rule Out COVID-19 12/19/2021 12/19/2021 12/20/2021 1:02 PM CDT Assessment Noted Time PHQ-9 Depression Total Score: 5 10/25/19 22 7:03 AM CELL TUBER MACHINE documented as of this encounter Care Teams Clinical Office Technician Relationship Specialty Start Date End Date [facility] - [address] 248222 PCP - General 10/06/20 11/20/21 Luh Acharya PA-C [address] [place] [address] [phone] PCP - General Family Medicine 11/21/21 01/02/23 Toma Arguello NP [place] [address] [place] [address] Nurse Practitioner Nurse Practitioner Psych/Mental Health 04/11/17 Laura Us MD [address] [address] Gastroenterology 12/20/18 Haven Buckner, STUDENT [address] [place] [address] Assigned PCP 05/22/21 11/26/21 Jenise España MD Assigned Heart and Vascular Provider 07/24/21 11/17/22 Tierra Cancino PA-C [address] [place] [address] Physician Woodyard Operator Urology 11/17/21 Luh Acharya PA-C [address] [place] [address] Assigned PCP 11/27/21 12/31/21 Tierra Cancino PA-C [address] [place] [address] Assigned Surgical Provider 12/11/21 06/08/23 Haven Buckner, STUDENT [address] [place] [address] Assigned PCP 01/01/22 12/22/22 Luh Acharya PA-C [address] [place] [address] Assigned PCP 12/23/22 05/18/23 Haven Buckner, STUDENT [address] [place] [address] Assigned PCP 05/19/23 documented as of this encounter
--- OUTSIDE RECORDS SUMMARY | 2024-05-06 07:34 | XMS_ITS | Encounter Summary ---
Author Organization [place] Address [address] [facility] [place] [address] Care Team Providers Care Sheetmetal Worker Name Role Phone Toma Arguello YESICA Unavailable [phone] Laura Us MD Unavailable [facility] Primary Care Provider Haven Buckner CNP [...] 10/19/2021 [facility] [address] [facility] [address] [place] [address] Luh Acharya PA-C [address] [place] [address] Medication Refill Social History Tobacco Use Types [...] COVID-19? No / Unsure 10/13/2021 3:21 PM SELENIUM PLANT OPERATOR documented as of this encounter Miscellaneous Notes * Telephone Encounter - Juan Pablo Hinton RN - 10/20/2021 1:29 PM CST Prescription approved per [facility] Refill Protocol. Juan Pablo Hinton RN [facility] Triage NIUM PLANT OPERATOR documented in this encounter Plan of [...] documented as of this encounter Care Teams Sheetmetal Worker Relationship Specialty Start Date End Date Clinic - [facility] [address] [place] [address] PCP - General 10/06/20 11/20/21 Luh Acharya PA-C [address] [place] [address] PCP - General Family Medicine 11/21/21 01/02/23 Toma Arguello LOSS CONTROL TECHNICIAN [place] [address] [place] [address] Nurse Practitioner Nurse Practitioner Psych/Mental Health 04/11/17 Laura Us MD [place] [address] [place] [address] Gastroenterology 12/20/18 Haven Buckner, POOLING OPERATOR [address] [place] [address] Assigned PCP 05/22/21 11/26/21 Jenise España MD Assigned Heart and Vascular Provider 07/24/21 11/17/22 Tierra Cancino PA-C [address] [place] [address] Physician Leather Patcher Urology 11/17/21 Luh Acharya PA-C [address] [place] [address] Assigned PCP 11/27/21 12/31/21 Tierra Cancino PA-C [address] [place] [address] Assigned Surgical Provider 12/11/21 06/08/23 Haven Buckner, NICOLE [address] [place] [address] Assigned PCP 01/01/22 12/22/22 Luh Acharya PA-C [address] [place] [address] Assigned PCP 12/23/22 05/18/23 Haven Buckner, NICOLE [address] [place] [address] Assigned PCP 05/19/23 documented as of this encounter
--- OUTSIDE RECORDS SUMMARY | 2024-05-06 07:34 | XMS_ITS | Encounter Summary ---
Author Organization [place] Address [address] [facility] [place] [address] Care Team Providers Care Operator Automated Process Name Role Phone Toma Arguello Arun ROBERT Unavailable [phone] Laura Us MD Unavailable [facility] Primary Care Provider [...] for Visit * Reason Onset Date Comments [email or web address] Communication 04/14/2021 Encounter Details Date Type Department Care Team (Latest Contact Info) Description 04/14/2021 MyC Medical Advice [address] [phone] Judd Waller Communication Social History Tobacco Use [...] documented as of this encounter Care Teams Operator Automated Process Relationship Specialty Start Date End Date [facility] - [address] [phone] PCP - General 10/06/20 11/20/21 Luh Acharya PA-C [address] [place] [address] 089962 PCP - General Family Medicine 11/21/21 01/02/23 Toma Arguello NP [address] [phone] Nurse Practitioner Nurse Practitioner Psych/Mental Health 04/11/17 Laura Us MD [address] [address] Gastroenterology 12/20/18 Jas Bojorquez DO [address] [place] [address] Assigned PCP 04/01/21 05/21/21 Haven Buckner, VIOLIN TEACHER [address] [place] [address] Assigned PCP 05/22/21 11/26/21 Jenise España MD Assigned Heart and Vascular Provider 07/24/21 11/17/22 Tierra Cancino PA-C [address] [place] [address] Physician Accounts Receivable Supervisor Urology 11/17/21 Luh Acharya PA-C [address] [place] [address] Assigned PCP 11/27/21 12/31/21 Tierra Cancino PA-C [address] [place] [address] Assigned Surgical Provider 12/11/21 06/08/23 Haven Buckner, VIOLIN TEACHER [address] [place] [address] Assigned PCP 01/01/22 12/22/22 Luh Acharya PA-C [address] [place] [address] Assigned PCP 12/23/22 05/18/23 Haven Buckner, NICOLE [address] [place] [address] Assigned PCP 05/19/23 documented as of this encounter
--- OUTSIDE RECORDS SUMMARY | 2024-05-06 07:34 | XMS_ITS | Encounter Summary ---
Author Organization [place] Address [address] [facility] [place] [address] Care Team Providers Care Recreational Therapist Name Role Phone Toma Arguello YESICA Unavailable Laura Us MD Unavailable Luh Acharya-C Unavailable [phone] [facility] Primary Care Provider [...] Encounter Details Date Type Department Care Team ([facility] st Contact Info) Description 02/01/[address] [facility] [address] [place] [phone] Haven Buckner, GALLEY WORKER [address] [place] [address] Medication Refill Social History Tobacco Use Types [...] List Complete: Yes Last Office Visit with [facility] [place] care [place]: 01/06/2021 Future Office visit: [...] CDAUT, No results found for: COMDAT, Cannabinoids ([id number]) Date Value Ref Range Status 07/11/2018 Not [...] be used for medical purposes only. Order [id number] for confirmation or individual confirmation tests to [facility]. Amphetamine (d-Amphetamine) Date Value Ref Range Status [...] be used for medical purposes only. Order [id number] for confirmation or individual confirmation tests to [facility] Methadone (Methadone) Date Value Ref Range Status [...] be electronically transmitted to pharmacy by provider [email or web address] Routing refill request to provider for review/approval because: Drug not on the [facility] refill protocol Renay Barlow RN [facility] documented in this encounter Plan of [...] Total Score: 1 07/27/20 20 2:05 PM TANK PUMPER documented as of this encounter Care Teams Recreational Therapist Relationship Specialty Start Date End Date Clinic - [address] [address] PCP - General 10/06/20 11/20/21 Luh Acharya PA-C [address] [place] [address] 207192 PCP - General Family Medicine 11/21/21 01/02/23 Toma Arguello NP [place] [address] [place] [address] Nurse Practitioner Nurse Practitioner Psych/Mental Health 04/11/17 Laura Us MD [address] [address] Gastroenterology 12/20/18 Luh Acharya, REFUGIO [address] [place] [address] 677622 Assigned PCP 06/20/20 03/31/21 Jas Bojorquez DO [address] [place] [address] 682362 Assigned PCP 04/01/21 05/21/21 Haven Buckner CNP [address] [place] [address] 602692 Assigned PCP 05/22/21 11/26/21 Jenise España MD Assigned Heart and Vascular Provider 07/24/21 11/17/22 Tierra Cancino PA-C [address] [place] [address] Physician Story Editor Urology 11/17/21 Luh Acharya PA-C [address] [place] [address] Assigned PCP 11/27/21 12/31/21 Tierra Cancino PA-C [address] [place] [address] Assigned Surgical Provider 12/11/21 06/08/23 Haven Buckner, GALLEY WORKER [address] [place] [address] Assigned PCP 01/01/22 12/22/22 Luh Acharya PA-C [address] [place] [address], [place] [address] Assigned PCP 12/23/22 05/18/23 Haven Buckner, GALLEY WORKER [address] [place] [address], [place] [address] Assigned PCP 05/19/23 documented as of this encounter
--- OUTSIDE RECORDS SUMMARY | 2024-05-06 07:34 | XMS_ITS | Encounter Summary ---
Author Organization [place] Address [address] [facility] [place] [address] Care Team Providers Care Arts And Crafts Instructor Name Role Phone Toma Arguello Arun ROBERT Unavailable [phone] Laura Us MD Unavailable [facility] Primary Care Provider Jas Bojorquez DO Unavailable [phone] OFFICE ADMINISTRATION INSTRUCTOR Unavailable [phone] Jenise España MD Unavailable Unavailable Tierra Cancino PA-C Unavailable [phone] Luh Acharya-C Primary Care Provider + Luh Acharya-C Unavailable +- [phone] Tierra Cancino PA-C Unavailable [phone] Haven Buckner CNP Unavailable [phone] Luh Acharya-C Unavailable +- [phone] Haven Buckner CNP Unavailable Encounter Details Date Type Department Care Team (Late st Contact Info) Description 04/15/2021 MyC Medical Advice [address] [facility] [place] [phone] Luh Acharya PA-C [address] [place] [address] [phone] Social History Tobacco Use Types Packs/Day Years [...] sent Awaiting reply Manisha Patel RN, BSN [facility] [place] Triage documented in this encounter Plan of [...] documented as of this encounter Care Teams Arts And Crafts Instructor Relationship Specialty Start Date End Date Clinic - [facility] [address] [address] PCP - General 10/06/20 11/20/21 Luh Acharya PA-C [address] [place] [address] PCP - General Family Medicine 11/21/21 01/02/23 Toma Arguello TRAUMA DOCTOR [place] [place] [address] Nurse Practitioner Nurse Practitioner Psych/Mental Health 04/11/17 Laura Us MD [place] [address] [place], [place] 063787 Gastroenterology 12/20/18 Jas Bojorquez DO [address] [place] [address] 938952 Assigned PCP 04/01/21 05/21/21 Haven Buckner, OFFICE ADMINISTRATION INSTRUCTOR [address] [place] [address] 607682 Assigned PCP 05/22/21 11/26/21 Jenise España MD Assigned Heart and Vascular Provider 07/24/21 11/17/22 Tierra Cancino PA-C [address] [place] [address] Physician Public Health Outreach Worker Urology 11/17/21 Luh Acharya PA-C [address] [place] [address] Assigned PCP 11/27/21 12/31/21 Tierra Cancino PA-C [address] [place], [place] [address] Assigned Surgical Provider 12/11/21 06/08/23 Haven Buckner, NICOLE [address] [place] [address], [place] [address] Assigned PCP 01/01/22 12/22/22 Luh Acharya PA-C [address] [place] [address], [place] [address] Assigned PCP 12/23/22 05/18/23 Haven Buckner, NICOLE [address] [place] [address] Assigned PCP 05/19/23 documented as of this encounter
--- OUTSIDE RECORDS SUMMARY | 2024-05-06 07:34 | XMS_ITS | Encounter Summary ---
Author Organization [place] Address [address] [place] [address] Care Team Providers Care Electrophysiology Tech Name Role Phone Kathy Glover MD Primary Care Provider Toma Arguello NP Unavailable [phone] Laura Us MD Unavailable Luh Acharya-C Unavailable + [phone] [facility] Primary Care Provider Jas Bojorquez DO Unavailable [phone] TRANSPORTATION SPECIALIST Unavailable [phone] Jenise España MD Unavailable Unavailable Tierra Cancino-C Unavailable [phone] Luh Acharya-C Primary Care Provider + Luh Acharya-C Unavailable + [phone] Tierra Cancino-C Unavailable Haven Buckner TRANSPORTATION SPECIALIST Unavailable [phone] Luh Acharya-C Unavailable +[phone] Haven Buckner TRANSPORTATION SPECIALIST Unavailable [phone] Encounter Details Date Type Department Care Team (Late st Contact Info) Description 09/28/2020 Orders Only [address] [place] [address] Diaz Camargo MD [facility] [address] [place] [address] Encounter for screening for other viral diseases [...] COVID-19? No / Unsure 09/27/2020 9:59 AM PORT SURVEYOR documented as of this encounter Plan of Treatment Not on file documented as of this encounter Results * Asymptomatic COVID-19 Virus (Coronavirus) by PCR (10/03/2020 1:26 PM PORT SURVEYOR) COVID-19 Virus PCR to [facility] - Source Nasopharyngeal 10/03/2020 1:26 PM PORT SURVEYOR [facility] COVID-19 Virus PCR to [facility] - Result Test received-See reflex to IDDL test SARS CoV2 (COVID-19) Virus RT-PCR 10/03/2020 3:28 PM PORT SURVEYOR [facility], [facility] Specimen from nasopharyngeal structure (specimen) 10/03/2020 1:26 PM PORT SURVEYOR 10/03/2020 1:27 PM PORT SURVEYOR Diaz Camargo MD LAB - MICRO GENERAL ORDERABLES INFECTIOUS DISEASES [facility], [facility] [address] [place] [address], [facility] [address] [place], [place] [address] [phone] documented in this encounter Visit Diagnoses Diagnosis Encounter for screening for other viral diseases documented in this encounter Additional Health Concerns Infection Onset Date Last Indicated Resolved Time Rule Out COVID-19 06/06/2021 06/06/2021 06/06/2021 5:30 PM CDT Rule Out COVID-19 12/19/2021 12/19/2021 12/20/2021 1:02 PM CDT Assessment Noted Time PHQ-9 Depression Total Score: 1 07/27/20 2:05 PM PORT SURVEYOR documented as of this encounter Care Teams Electrophysiology Tech Relationship Specialty Start Date End Date Kathy Glover MD [address] [place] [address] 709182 PCP - General Family Practice 06/03/15 10/05/20 Clinic - [facility] [address] [place] [address] [phone] PCP - General 10/06/20 11/20/21 Luh Acharya PA-C [address] [place] [address] 374222 PCP - General Family Medicine 11/21/21 01/02/23 Toma Arguello NP [facility] [address] [place] [address] Nurse Practitioner Nurse Practitioner Psych/Mental Health 04/11/17 Laura Us MD [facility] [address] [place] [address] Gastroenterology 12/20/18 Luh Acharya PA-C [facility] [place] [address] Assigned PCP 06/20/20 03/31/21 Jas Bojorquez DO [address] [place] [address], [place] [address] Assigned PCP 04/01/21 05/21/21 Haven Buckner, TRANSPORTATION SPECIALIST [address] [place] [address], [place] [address] Assigned PCP 05/22/21 11/26/21 Jenise España MD Assigned Heart and Vascular Provider 07/24/21 11/17/22 Tierra Cancino PA-C [address] [place] [address] Physician Pipe Caulker Urology 11/17/21 Luh Acharya PA-C [address] [place] [address], [place] [address] Assigned PCP 11/27/21 12/31/21 Tierra Cancino PA-C [address] [place] [address] Assigned Surgical Provider 12/11/21 06/08/23 Haven Buckner, TRANSPORTATION SPECIALIST [address] [place] [address], [place] [address] Assigned PCP 01/01/22 12/22/22 Luh Acharya PA-C [address] [place] [address] Assigned PCP 12/23/22 05/18/23 Haven Buckner, NICOLE [address] [place] [address] Assigned PCP 05/19/23 documented as of this encounter
--- OUTSIDE RECORDS SUMMARY | 2024-05-06 07:34 | XMS_ITS | Encounter Summary ---
Author Organization [place] Address [address] [facility] [place] [address] Care Team Providers Care Spiral Spring Winder Name Role Phone Kathy Glover MD Primary Care Provider Toma Arguello NP Unavailable Kathy Glover MD Unavailable [phone] Laura Us MD Unavailable Luh AcharyaC Unavailable + [phone] Kathy Glover MD Unavailable [phone] Luh AcharyaC Unavailable + [phone] Edward Marlow MD Unavailable [phone] [facility] Primary Care Provider Jas Bojorquez DO Unavailable [phone] Haven Buckner CNP Unavailable [phone] Jenise España MD Unavailable Unavailable Tierra Cancino-C Unavailable Luh Acharya PA-C Primary Care Provider + Luh AcharyaC Unavailable Tierra Cancino PA-C Unavailable [phone] Haven Buckner CNP Unavailable [phone] Luh Acharya PA-C Unavailable [phone] Haven Buckner CNP Unavailable +[phone] Reason for Visit * Reason Comments Medication Refill Encounter Details Date Type Department Care Team (Late st Contact Info) Description [facility] [address] [phone] Luh Acharya PA-C [address] [place] [address] Medication Refill Social History Tobacco Use [...] documented as of this encounter Care Teams Spiral Spring Winder Relationship Specialty Start Date End Date Kathy Glover MD [address] [place] [address] PCP - General Family Practice 06/03/15 10/05/[address] [address] PCP - General 10/06/20 11/20/21 Luh Acharya PA-C [address] [place] [address] PCP - General Family Medicine 11/21/21 01/02/23 Toma Arguello NP [address] [address] Nurse Practitioner Nurse Practitioner Psych/Mental Health 04/11/17 Kathy Glover MD [address] [place] [address] Assigned PCP 07/25/15 12/20/19 Laura Us MD [address] [place] [address] Gastroenterology 12/20/18 Luh Acharya PA-C [address] [place] [address] Assigned PCP 12/21/19 01/17/20 Kathy Glover MD [address] [place] [address] Assigned PCP 01/18/20 06/19/20 Luh Acharya PA-C [address] [place] [address] Assigned PCP 06/20/20 03/31/21 Edward Marlow MD [place] [address] Assigned Surgical Provider 07/09/20 07/31/20 Jas Bojorquez DO [address] [place] [address] Assigned PCP 04/01/21 05/21/21 Haven Buckner, TURNER SPLITTER MACHINE OPERATOR [address] [place] [address] Assigned PCP 05/22/21 11/26/21 Jenise España MD Assigned Heart and Vascular Provider 07/24/21 11/17/22 Tierra Cancino PA-C [address] [place] [address] Physician Signal Integrity Engineer Urology 11/17/21 Luh Acharya PA-C [address] [place] [address] Assigned PCP 11/27/21 12/31/21 Tierra Cancino PA-C [address] [place] [address] Assigned Surgical Provider 12/11/21 06/08/23 Haven Buckner, NICOLE [address] [place] [address] Assigned PCP 01/01/22 12/22/22 Luh Acharya PA-C [address] [place] [address] Assigned PCP 12/23/22 05/18/23 Haven Buckner, TURNER SPLITTER MACHINE OPERATOR [address] [place] [address] Assigned PCP 05/19/23 documented as of this encounter
--- OUTSIDE RECORDS SUMMARY | 2024-05-06 07:34 | XMS_ITS | Encounter Summary ---
Author Organization [place] Address [address] [facility] [place] [address] Care Team Providers Care Statement Clerks Manager Name Role Phone Kathy Glover MD Primary Care Provider Toma Arguello NP Unavailable [phone] Laura Us MD Unavailable Luh Acharya-C Unavailable + [phone] Kathy Glover MD Unavailable [phone] Luh AcharyaC Unavailable + [phone] Edward Marlow MD Unavailable [phone] [facility] Primary Care Provider Jas Bojorquez DO Unavailable [...] Team (Late st Contact Info) Description 01/09/2020 [facility] Medical Advice [address] [phone] Amber Marc Social History Tobacco Use Types [...] documented as of this encounter Care Teams Statement Clerks Manager Relationship Specialty Start Date End Date Kathy Glover MD [address] [place] [address] 386392 PCP - General Family Practice 06/03/15 10/05/20 Clinic - [address] 069592 PCP - General 10/06/20 11/20/21 Luh Acharya PA-C [address] [place] [address] PCP - General Family Medicine 11/21/21 01/02/23 Toma Arguello NP [address] [address] Nurse Practitioner Nurse Practitioner Psych/Mental Health 04/11/17 Laura Us MD [address] [address] Gastroenterology 12/20/18 Luh Acharya PA-C [address] [place] [address] Assigned PCP 12/21/19 01/17/20 Kathy Glover MD [address] [place] [address] Assigned PCP 01/18/20 06/19/20 Luh Acharya PA-C [address] [place] [address] Assigned PCP 06/20/20 03/31/21 Edward Marlow MD [address] [place] [address] Assigned Surgical Provider 07/09/20 07/31/20 Jas Bojorquez DO [address] [place] [address] Assigned PCP 04/01/21 05/21/21 Haven Buckner, NICOLE [address] [place] [address], [place] [address] Assigned PCP 05/22/21 11/26/21 Jenise España MD Assigned Heart and Vascular Provider 07/24/21 11/17/22 Tierra Cancino PA-C [address] [place] [address] Physician Yoghurt Maker Urology 11/17/21 Luh Acharya PA-C [address] [place] [address] Assigned PCP 11/27/21 12/31/21 Tierra Cancino PA-C [address] [place] [address] Assigned Surgical Provider 12/11/21 06/08/23 Haven Buckner CNP [address] [place] [address], [place] [address] Assigned PCP 01/01/22 12/22/22 Luh Acharya PA-C [address] [place] [address], [place] [address] Assigned PCP 12/23/22 05/18/23 Haven Buckner, NICOLE [address] [place] [address] Assigned PCP 05/19/23 documented as of this encounter
--- OUTSIDE RECORDS SUMMARY | 2024-05-06 07:34 | XMS_ITS | Encounter Summary ---
Author Organization [place] Address [address] [facility] [place] [address] Care Team Providers Care Court Recording Monitor Name Role Phone Toma Arguello YESICA Unavailable [phone] Laura Us MD Unavailable Luh Acharya-C Unavailable +- [phone] [facility] Primary Care Provider Jas Bojorquez DO Unavailable +[phone] Haven Buckner CNP Unavailable +[phone] Jenise España MD Unavailable Unavailable Tierra Cancino PA-C Unavailable [phone] Luh Acharya-C Primary Care Provider + Luh Acharya-C Unavailable +- [phone] Tierra Cancino-C Unavailable [phone] Haven Buckner CNP Unavailable +[phone] Luh Acharya-C Unavailable +[phone] Haven Buckner CNP Unavailable Reason for Visit * Reason Onset Date Comments MyChart Communication 12/22/2020 Encounter Details Date Type Department Care Team (Late st Contact Info) Description 12/22/2020 MyC Medical Advice M [address] [phone] Luh Acharya PA-C [address] [place] [address] MyChart Communication Social History Tobacco Use Types [...] Hinton RN - 12/23/2020 1:18 PM CDT Vortalhart sent to advise OV/VV Awaiting reply. Juan Pablo Hernandez RN [facility] [place] Triage * Telephone Encounter - Haven Navarro [...] last office notes. Persistent insomnia- managed by [facility] Neurology - Dr. Nash [...] discuss this and possible alternatives. Haven Navarro, CODING AUDITOR-BC * Telephone Encounter - Manisha Patel RN - 12/22/2020 10:55 AM CDT 11/18/2020 Please see my chart message below Please review and advise Thank you Manisha Patel RN, BSN [place] Triage documented in this encounter Plan of [...] Total Score: 1 07/27/20 20 2:05 PM ASSISTANT MEN'S LACROSSE COACH documented as of this encounter Care Teams Court Recording Monitor Relationship Specialty Start Date End Date Clinic - [address] [phone] PCP - General 10/06/20 11/20/21 Luh Acharya PA-C [address] [place] [address] [phone] PCP - General Family Medicine 11/21/21 01/02/23 Toma Arguello NP [address] [address] Nurse Practitioner Nurse Practitioner Psych/Mental Health 04/11/17 Laura Us MD [address] [address] Gastroenterology 12/20/18 Luh Acharya PA-C [address] [place] [address] Assigned PCP 06/20/20 03/31/21 Jas Bojorquez DO [address] [place] [address]22 Assigned PCP 04/01/21 05/21/21 Haven Buckner CNP [address] [place] [address] Assigned PCP 05/22/21 11/26/21 Jenise España MD Assigned Heart and Vascular Provider 07/24/21 11/17/22 Tierra Cancino PA-C [address] [place] [address] Physician Wrapper Hands Sprayer Urology 11/17/21 Luh Acharya PA-C [address] [place] [address] Assigned PCP 11/27/21 12/31/21 Tierra Cancino PA-C [address] [place] [address] Assigned Surgical Provider 12/11/21 06/08/23 Haven Buckner CNP [address] [place] [address] Assigned PCP 01/01/22 12/22/22 Luh Acharya PA-C [address] [place] [address] Assigned PCP 12/23/22 05/18/23 Haven Buckner CNP [address] [place] [address] Assigned PCP 05/19/23 documented as of this encounter
--- OUTSIDE RECORDS SUMMARY | 2024-05-06 07:34 | XMS_ITS | Encounter Summary ---
Author Organization [place] Address [address] [facility] [place] [address] Care Team Providers Care Assistant Corporate Controller Name Role Phone Kathy Glover MD Primary Care Provider Toma Arguello NP Unavailable [phone] Laura Us MD Unavailable Luh Acharya-C Unavailable + [phone] [facility] Primary Care Provider Jas Bojorquez DO Unavailable +[phone] BucknerHaven lofton JOB INTERVIEWER Unavailable +-[phone] Jenise España MD Unavailable Unavailable Tierra Cancino-C Unavailable [phone] Luh Acharya-C Primary Care Provider + Lhu Acharya-C Unavailable + [phone] Tierra Cancino-C Unavailable Haven Buckner JOB INTERVIEWER Unavailable +[phone] Luh Acharya-C Unavailable +[phone] Haven Buckner JOB INTERVIEWER Unavailable +[phone] Encounter Details Date Type Department Care Team (Late st Contact Info) Description 08/18/2020 MyC Medical Advice [address] [phone] Raina Thomas Social History Tobacco Use Types [...] Total Score: 1 07/27/20 20 2:05 PM MARKETING ROTATION ASSOCIATE documented as of this encounter Care Teams Assistant Corporate Controller Relationship Specialty Start Date End Date Kathy Glover MD [address] [place] [address] PCP - General Family Practice 06/03/15 10/05/20 Clinic - [address] [address] PCP - General 10/06/20 11/20/21 Luh Acharya PA-C [address] [place] [address] PCP - General Family Medicine 11/21/21 01/02/23 Toma Arguello NP [address] [address] Nurse Practitioner Nurse Practitioner Psych/Mental Health 04/11/17 Laura Us MD [address] [address] Gastroenterology 12/20/18 Luh Acharya PA-C [address] [place] [address] 724672 Assigned PCP 06/20/20 03/31/21 Jas Bojorquez DO [address] [place] [address] 294172 Assigned PCP 04/01/21 05/21/21 Haven Buckner, NICOLE [address] [place] [address] [phone] Assigned PCP 05/22/21 11/26/21 Jenise España MD Assigned Heart and Vascular Provider 07/24/21 11/17/22 Tierra Cancino PA-C [address] [place], [place] 45[address] Physician Deployment Specialist Urology 11/17/21 Luh Acharya PA-C [address] [place] [address] 426272 Assigned PCP 11/27/21 12/31/21 Tierra Cancino PA-C [address] [place] [address] Assigned Surgical Provider 12/11/21 06/08/23 Haven Buckner, JOB INTERVIEWER [address] [place] [address] Assigned PCP 01/01/22 12/22/22 Luh Acharya PA-C [address] [place] [address] Assigned PCP 12/23/22 05/18/23 Haven Buckner, JOB INTERVIEWER [address] [place] [address] Assigned PCP 05/19/23 documented as of this encounter
--- OUTSIDE RECORDS SUMMARY | 2024-05-06 07:34 | XMS_ITS | Encounter Summary ---
Author Organization [place] Address [address] [facility] [place] [address] Care Team Providers Care Conveyor Tender Concrete Mixing Plant Name Role Phone Toma Arguello YESICA Unavailable [phone] Laura Us MD Unavailable [facility] Primary Care Provider Haven Buckner CNP Unavailable [phone] Jenise España MD Unavailable Unavailable Tierra Cancino-C Unavailable [phone] Luh Acharya-C Primary Care Provider + Luh Acharya PA-C Unavailable +- [phone] Tierra Cancino-Melissa Unavailable [phone] Haven Buckner CNP Unavailable [phone] Luh Acharya PA-C Unavailable + [phone] Haven Buckner CNP Unavailable +[phone] Reason for Visit * Reason Comments Medication Refill Encounter Details Date Type Department Care Team (Late st Contact Info) Description 08/30/[address] [phone] Haven Buckner, REHABILITATION PHYSICIAN [address] [place], [place] 8[address] Medication Refill Social History Tobacco Use Types [...] Manisha Patel RN - 09/01/2021 10:07 PM AGENT TICKETING GATE Due for an Office visit for further refills, only fill for 30 days Manisha Patel RN, BSN [facility] Triage T TICKETING GATE documented in this encounter Plan of Treatment [...] documented as of this encounter Care Teams Conveyor Tender Concrete Mixing Plant Relationship Specialty Start Date End Date Clinic - [address] [phone] PCP - General 10/06/20 11/20/21 Luh Acharya PA-C [address] [place] [address] [phone] PCP - General Family Medicine 11/21/21 01/02/23 Toma Arguello NP [address] [address] Nurse Practitioner Nurse Practitioner Psych/Mental Health 04/11/17 Laura Us MD [address] [address] Gastroenterology 12/20/18 Haven Buckner, REHABILITATION PHYSICIAN [address] [place] [address] Assigned PCP 05/22/21 11/26/21 Jenise España MD Assigned Heart and Vascular Provider 07/24/21 11/17/22 Tierra Cancino PA-C [address] [place] [address] Physician Stem Dryer Maintainer Urology 11/17/21 Luh Acharya PA-C [address] [place] [address] Assigned PCP 11/27/21 12/31/21 Tierra Cancino PA-C [address] [place] [address] Assigned Surgical Provider 12/11/21 06/08/23 Haven Buckner, NICOLE [address] [place] [address] Assigned PCP 01/01/22 12/22/22 Luh Acharya PA-C [address] [place] [address] [phone] Assigned PCP 12/23/22 05/18/23 Haven Buckner, REHABILITATION PHYSICIAN [address] [place] [address] 505862 Assigned PCP 05/19/23 documented as of this encounter
--- OUTSIDE RECORDS SUMMARY | 2024-05-06 07:34 | XMS_ITS | Encounter Summary ---
Author Organization [place] Address [address] [facility] [place] [address] Care Team Providers Care Noc Technician Name Role Phone Toma Arguello YESICA Unavailable [phone] Laura Us MD Unavailable [facility] Primary Care Provider Haven [...] Team (Late st Contact Info) Description 07/20/2021 [facility] [address] [facility] [address] [place] [phone] Luh Acharya PA-C [address] [place] [address] Medication Refill Social History Tobacco Use Types [...] per RN protocol Manisha Patel RN, BSN [place] Triage documented in this encounter Plan of [...] as of this encounter Care Teams Noc Technician Relationship Specialty Start Date End Date Clinic - [facility] [address] [place] [address] PCP - General 10/06/20 11/20/21 Luh Acharya PA-C [address] [place] [address] PCP - General Family Medicine 11/21/21 01/02/23 Toma Arguello DIRECTOR OF RESTAURANTS [facility] [address] [place] [address] Nurse Practitioner Nurse Practitioner Psych/Mental Health 04/11/17 Laura Us MD [facility] [address] [place] [address] Gastroenterology 12/20/18 Haven Buckner, NICOLE [address] [place] [address] Assigned PCP 05/22/21 11/26/21 Jenise España MD Assigned Heart and Vascular Provider 07/24/21 11/17/22 Tierra Cancino PA-C [address] [place] [address] Physician Hazardous Waste Technician Urology 11/17/21 Luh Acharya PA-C [address] [place] [address] Assigned PCP 11/27/21 12/31/21 Tierra Cancino PA-C [address] [place] [address] Assigned Surgical Provider 12/11/21 06/08/23 Haven Buckner, NICOLE [address] [place] [address], [place] [address] Assigned PCP 01/01/22 12/22/22 Luh Acharya PA-C [address] [place] [address], [place] [address] Assigned PCP 12/23/22 05/18/23 Haven Buckner, NICOLE [address] [place] [address], [place] [address] Assigned PCP 05/19/23 documented as of this encounter
--- OUTSIDE RECORDS SUMMARY | 2024-05-06 07:34 | XMS_ITS | Encounter Summary ---
Author Organization [place] Address [address] [facility] [place] [address] Care Team Providers Care Local Company Flatbed Truck Driver Name Role Phone Kathy Glover MD Primary Care Provider Toma Arguello NP Unavailable [phone] Kathy Glover MD Unavailable [phone] Laura Us MD Unavailable Luh AcharyaC Unavailable + [phone] Kathy Glover MD Unavailable +[phone] Luh AcharyaC Unavailable + [phone] Edward Marlow MD Unavailable [phone] [facility] Primary Care Provider Jas Bojorquez DO Unavailable +[phone] Haven Buckner CNP Unavailable +[phone] Jenise España MD Unavailable Unavailable Tierra Cancino-C Unavailable Luh Acharya PA-C Primary Care Provider + Luh AcharyaC Unavailable + [phone] Tierra Cancino PA-C Unavailable Haven Buckner CNP Unavailable +[phone] Luh Acharya PA-C Unavailable +[phone] BucknerHaven lofton CNP Unavailable +[phone]- Encounter Details Date Type Department Care Team (Late st Contact Info) Description 07/14/2019 [facility] [address] [phone] Renay Barlow RN Social History Tobacco Use [...] documented as of this encounter Care Teams Local Company Flatbed Truck Driver Relationship Specialty Start Date End Date Kathy Glover MD [address] [place] [address] 670482 PCP - General Family Practice 06/03/15 10/05/20 Clinic - [address] [address] PCP - General 10/06/20 11/20/21 Luh Acharya PA-C [address] [place] [address] PCP - General Family Medicine 11/21/21 01/02/23 Toma Arguello NP [address] [address] Nurse Practitioner Nurse Practitioner Psych/Mental Health 04/11/17 Kathy Glover MD [address] [place] [address] Assigned PCP 07/25/15 12/20/19 Laura Us MD [address] [place] [address] Gastroenterology 12/20/18 Luh Acharya PA-C [address] [place] [address] Assigned PCP 12/21/19 01/17/20 Kathy Glover MD [address] [place] [address] Assigned PCP 01/18/20 06/19/20 Luh Acharya PA-C [address] [place] [address]37 Assigned PCP 06/20/20 03/31/21 Edward Marlow [place] [address] Assigned Surgical Provider 07/09/20 07/31/20 Jas Bojorquez DO [address] [place] [address] Assigned PCP 04/01/21 05/21/21 Haven Buckner, RAILROAD SUPERVISOR OF ENGINES [address] [place] [address] [phone] Assigned PCP 05/22/21 11/26/21 Jenise España MD Assigned Heart and Vascular Provider 07/24/21 11/17/22 Tierra Cancino PA-C [address] [place] [address] Physician Director Of Strategy & Mobile Urology 11/17/21 Luh Acharya PA-C [address] [place] [address] Assigned PCP 11/27/21 12/31/21 Tierra Cancino PA-C [address] [facility] [facility] [address] [place] [address] Assigned Surgical Provider 12/11/21 06/08/23 Haven Buckner, NICOLE [address] [place] [address] Assigned PCP 01/01/22 12/22/22 Luh Acharya PA-C [address] [place] [address] Assigned PCP 12/23/22 05/18/23 Haven Buckner, RAILROAD SUPERVISOR OF ENGINES [address] [place] [address] Assigned PCP 05/19/23 documented as of this encounter
--- OUTSIDE RECORDS SUMMARY | 2024-05-06 07:34 | XMS_ITS | Encounter Summary ---
Author Organization [place] Address [address] [place] [address] Care Team Providers Care Workforce Development Vice President Name Role Phone Kathy Glover MD Primary Care Provider Toma Arguello NP Unavailable [phone] Laura Us MD Unavailable Luh Acharya-C Unavailable + [phone] Edward Marlow MD Unavailable [phone] [facility] Primary Care Provider Jas Bojorquez DO Unavailable +[phone] Haven Buckner HELPER SHEAR OPERATOR Unavailable +-[phone] Jenise España MD Unavailable Unavailable Tierra Cancino PA-C Unavailable [phone] Luh Acharya-C Primary Care Provider + Luh Acharya-C Unavailable + [phone] Tierra Cancino-C Unavailable Haven Buckner CNP Unavailable +-[phone] Luh Acharya-C Unavailable Haven Buckner HELPER SHEAR OPERATOR Unavailable Encounter Details Date Type Department Care Team (Late st Contact Info) Description 07/23/2020 MyC Medical Advice [address] [phone] Juan Pablo Hinton RN Social History Tobacco [...] Total Score: 1 07/27/20 20 2:05 PM CLIMATE CHANGE ANALYST documented as of this encounter Care Teams Workforce Development Vice President Relationship Specialty Start Date End Date Kathy Glover MD [address] [place] [address] PCP - General Family Practice 06/03/15 10/05/20 Clinic - [address] [address] PCP - General 10/06/20 11/20/21 Luh Acharya PA-C [address] [place] [address] PCP - General Family Medicine 11/21/21 01/02/23 Toma Arguello NP [facility] [address] [place] [address] Nurse Practitioner Nurse Practitioner Psych/Mental Health 04/11/17 Laura Us MD [facility] [address] [place] [address] Gastroenterology 12/20/18 Luh Acharya PA-C [address] [place] [address] Assigned PCP 06/20/20 03/31/21 Edward Marlow MD [facility] [place] [address] Assigned Surgical Provider 07/09/20 07/31/20 Jas Bojorquez DO [address] [place] [address] 793232 Assigned PCP 04/01/21 05/21/21 Haven Buckner, NICOLE [address] [place] [address] 467162 Assigned PCP 05/22/21 11/26/21 Jenise España MD Assigned Heart and Vascular Provider 07/24/21 11/17/22 Tierra Cancino PA-C [address] [place] [address] Physician Edi Consultant Urology 11/17/21 Luh Acharya PA-C [address] [place] [address], [place] [address] Assigned PCP 11/27/21 12/31/21 Tierra Cancino PA-C [address] [place] [address] Assigned Surgical Provider 12/11/21 06/08/23 Haven Buckner, NICOLE [address] [place] [address], [place] [address] Assigned PCP 01/01/22 12/22/22 Luh Acharya PA-C [address] [place] [address], [place] [address] Assigned PCP 12/23/22 05/18/23 Haven Buckner, NICOLE [address] [place] [address], [place] [address] Assigned PCP 05/19/23 documented as of this encounter
--- OUTSIDE RECORDS SUMMARY | 2024-05-06 07:34 | XMS_ITS | Encounter Summary ---
Author Organization [place] Address [address] [facility] [place] [address] Care Team Providers Care Supervisor Cigar Processing Name Role Phone Toma Arguello YESICA Unavailable [phone] Laura Us MD Unavailable Luh Acharya-C Unavailable +- [phone] [facility] Primary Care Provider Jas Bojorquez DO Unavailable +[phone] Haven Buckner CNP Unavailable +[phone] Jenise España MD Unavailable Unavailable Tierra Cancino PA-C Unavailable [phone] Luh Acharya-C Primary Care Provider + Luh Acharya-C Unavailable +- [phone] Tierra Cancino-C Unavailable +[phone] Haven Buckner CNP Unavailable +[phone] Luh Acharya-C Unavailable +[phone] Haven Buckner CNP Unavailable Reason for Visit * Reason Onset Date Comments MyChart Communication 02/21/2021 Encounter Details Date Type Department Care Team (Late st Contact Info) Description 02/21/2021 MyC Medical Advice [address] [phone] Haven Buckner, DATABASE MARKETING SPECIALIST [address] [place] [address] MyChart Communication Social History Tobacco Use Types [...] advise Thank you Manisha Patel RN, BSN [place] Triage documented in this encounter Plan of [...] Total Score: 1 07/27/20 20 2:05 PM POULTRY SCIENTIST documented as of this encounter Care Teams Supervisor Cigar Processing Relationship Specialty Start Date End Date Clinic - [address] [address] PCP - General 10/06/20 11/20/21 Luh Acharya PA-C [address] [place] [address] PCP - General Family Medicine 11/21/21 01/02/23 Toma Arguello NP [address] [address] Nurse Practitioner Nurse Practitioner Psych/Mental Health 04/11/17 Laura Us MD [address] [address] Gastroenterology 12/20/18 Luh Acharya PA-C [address] [place] [address] Assigned PCP 06/20/20 03/31/21 Jas Bojorquez DO [address] [place] [address] Assigned PCP 04/01/21 05/21/21 Haven Buckner, NICOLE [address] [place] [address] Assigned PCP 05/22/21 11/26/21 Jenise España MD Assigned Heart and Vascular Provider 07/24/21 11/17/22 Tierra Cancino PA-C [address] [place] [address] Physician Back Tender Insulation Board Urology 11/17/21 Luh Acharya PA-C [address] [place] [address], [place] [address] Assigned PCP 11/27/21 12/31/21 Tierra Cancino PA-C [address] [place] [address] Assigned Surgical Provider 12/11/21 06/08/23 Haven Buckner, NICOLE [address] [place] [address] Assigned PCP 01/01/22 12/22/22 Luh Acharya PA-C [address] [place] [address] Assigned PCP 12/23/22 05/18/23 Haven Buckner, NICOLE [address] [place] [address] Assigned PCP 05/19/23 documented as of this encounter
--- OUTSIDE RECORDS SUMMARY | 2024-05-06 07:34 | XMS_ITS | Encounter Summary ---
Author Organization [place] Address [address] [facility] [place] [address] Care Team Providers Care Barrel Roller Name Role Phone Toma Arguello YESICA Unavailable [phone] Laura Us MD Unavailable [facility] Primary Care Provider Haven Buckner CNP [...] Team (Late st Contact Info) Description 10/20/[address] [phone] Luh Acharya PA-C [address] [place], [place] 8[address] Medication Refill Social History Tobacco Use Types [...] COVID-19? No / Unsure 10/13/2021 3:21 PM FRAMING MACHINE TENDER documented as of this encounter Miscellaneous Notes * Telephone Encounter - Ellen Retana RN - 10/21/2021 12:09 PM FRAMING MACHINE TENDER LDL Cholesterol Calculated Date Value Ref Range Status 09/23/2020 55 <100 mg/dL Final Comment: Desirable: <100 mg/dl Enedina refill of 30 days given Appointments in Next Year Nov 15, 2021 1:40 PM (Arrive by 1:20 PM) Adult Preventative Visit with Luh Acharya PA-C [facility] ) [phone] [facility] Triage ING MACHINE TENDER documented in this encounter Plan of Treatment [...] documented as of this encounter Care Teams Barrel Roller Relationship Specialty Start Date End Date Clinic - [facility] [address] [place] [address] PCP - General 10/06/20 11/20/21 Luh Acharya PA-C [address] [place] [address] PCP - General Family Medicine 11/21/21 01/02/23 Toma Arguello NP [place] [address] [place] [address] Nurse Practitioner Nurse Practitioner Psych/Mental Health 04/11/17 Laura Us MD [place] [address] [place], [place] 0589[address] Gastroenterology 12/20/18 Haven Buckner, NICOLE [address] [place] [address] 296302 Assigned PCP 05/22/21 11/26/21 Jenise España MD Assigned Heart and Vascular Provider 07/24/21 11/17/22 Tierra Cancino PA-C [address] [place] [address] Physician Junior Automation Engineer Urology 11/17/21 Luh Acharya PA-C [address] [place] [address] Assigned PCP 11/27/21 12/31/21 Tierra Cancino PA-C [address] [address] Assigned Surgical Provider 12/11/21 06/08/23 Haven Buckner, TRIMMING CUTTER MACHINE [address] [place] [address] Assigned PCP 01/01/22 12/22/22 Luh Acharay PA-C [address] [place] [address] Assigned PCP 12/23/22 05/18/23 Haven Buckner, TRIMMING CUTTER MACHINE [address] [place] [address] Assigned PCP 05/19/23 documented as of this encounter
--- OUTSIDE RECORDS SUMMARY | 2024-05-06 07:34 | XMS_ITS | Encounter Summary ---
Author Organization [place] Address [address] [facility] [place] [place] [address] Care Team Providers Care Museum Specialist Name Role Phone Kathy Glover MD Primary Care Provider Toma Arguello NP Unavailable [phone] Laura sU MD Unavailable Luh Acharya-C Unavailable + [phone] [facility] Primary Care Provider Jas Bojorquez DO Unavailable +[phone] [facility] CORPORATE RESPONSIBILITY OFFICER Unavailable +[phone] Jenise España MD Unavailable Unavailable Tierra Cancino-C Unavailable [phone] Luh Acharya-C Primary Care Provider + Luh Acharya-C Unavailable + [phone] Tierra Cancino-C Unavailable Haven Buckner CORPORATE RESPONSIBILITY OFFICER Unavailable +[phone] Luh Acharya-C Unavailable +[phone] Haven Buckner CORPORATE RESPONSIBILITY OFFICER Unavailable +[phone] Reason for Visit * Reason Comments Medication Refill Encounter Details Date Type Department Care Team (Late st Contact Info) Description 08/15/[address] [phone] [place] [address] [place] [address] Medication Refill Social History Tobacco Use Types [...] Raina Thomas - 08/18/2020 9:23 AM CST [employer] message sent to patient to call and schedule follow up visit Raina Thomas/ Latex Dipper RER OPERATOR * Telephone Encounter - Haven Navarro APRN CNP - 08/16/2020 5:03 PM LABORER OPERATOR Images from the original note were not included. Due for physical wellness exam with pap; please help patient get this set up. #90 day fill. NIDIA Johnson RER OPERATOR * Telephone Encounter - Agustina Mares RN - 08/16/2020 2:09 PM CST Routing refill request to provider for review/approval because: Drug interaction warning RER OPERATOR documented in this encounter Plan of Treatment Not on file documented as of this encounter Visit Diagnoses Diagnosis Persistent insomnia- managed by [facility] Clinic of Neurology - Dr. Cao Persistent [...] Depression Total Score: 1 07/27/20 2:05 PM LABORER OPERATOR documented as of this encounter Care Teams Museum Specialist Relationship Specialty Start Date End Date Kathy Glover MD [address] [place] [address] 344502 PCP - General Family Practice 06/03/15 10/05/20 Clinic - [address] 597482 PCP - General 10/06/20 11/20/21 Luh Acharya PA-C [address] [place] [address] 975222 PCP - General Family Medicine 11/21/21 01/02/23 Toma Arguello NP [address] 016697 Nurse Practitioner Nurse Practitioner Psych/Mental Health 04/11/17 Laura Us MD [address] 480907 Gastroenterology 12/20/18 Luh Acharya PA-C [address] [place] [address] 11743 Assigned PCP 06/20/20 03/31/21 Jas Bojorquez DO [address] [place] [address] 670602 Assigned PCP 04/01/21 05/21/21 Haven Buckner, CORPORATE RESPONSIBILITY OFFICER [address] [place] [address] [phone] Assigned PCP 05/22/21 11/26/21 Jenise España MD Assigned Heart and Vascular Provider 07/24/21 11/17/22 Tierra Cancino PA-C [address] [place] [address] Physician Data Communications Engineer Urology 11/17/21 Luh Acharya PA-C [address] [place] [address] 13653 Assigned PCP 11/27/21 12/31/21 Tierra Cancino PA-C [address] [place] [address] Assigned Surgical Provider 12/11/21 06/08/23 Haven Buckner, CORPORATE RESPONSIBILITY OFFICER [address] [place] [address] Assigned PCP 01/01/22 12/22/22 Luh Acharya PA-C [address] [place] [address] Assigned PCP 12/23/22 05/18/23 Haven Buckner, CORPORATE RESPONSIBILITY OFFICER [address] [place] [address]876 Assigned PCP 05/19/23 documented as of this encounter
--- OUTSIDE RECORDS SUMMARY | 2024-05-06 07:34 | XMS_ITS | Encounter Summary ---
Author Organization [place] Address [address] [facility] [place] [place] [address] Care Team Providers Care Investment Professional Name Role Phone Toma Arguello YESICA Unavailable Laura Us MD Unavailable [facility] [...] Team (Late st Contact Info) Description 09/07/[address] [phone] Haven Buckner, HAIR COLORIST [address] [place] [address] [phone] Medication Refill Social History Tobacco Use Types [...] 09/08/2021 3:35 PM CST Prescription approved per [facility] Refill Protocol. SORSHIP MANAGER documented in this encounter Plan of [...] documented as of this encounter Care Teams Investment Professional Relationship Specialty Start Date End Date Clinic - [address] [address] PCP - General 10/06/20 11/20/21 Luh Acharya PA-C [address] [place] [address] PCP - General Family Medicine 11/21/21 01/02/23 Toma Arguello RESTAURANT INSPECTOR [facility] [address] [place] [address] Nurse Practitioner Nurse Practitioner Psych/Mental Health 04/11/17 Laura Us MD [facility] [address] [place] [address] Gastroenterology 12/20/18 Haven Buckner, HAIR COLORIST [address] [place] [address]22 Assigned PCP 05/22/21 11/26/21 Jenise España MD Assigned Heart and Vascular Provider 07/24/21 11/17/22 Tierra Cancino PA-C [address] [place] [address] Physician Creative Art Director Urology 11/17/21 Luh Acharya PA-C [address] [place] [address] Assigned PCP 11/27/21 12/31/21 Tierra Cancino PA-C [address] [place] [address] Assigned Surgical Provider 12/11/21 06/08/23 Haven Buckner, HAIR COLORIST [address] [place] [address] Assigned PCP 01/01/22 12/22/22 Luh Acharya PA-C [address] [place] [address] Assigned PCP 12/23/22 05/18/23 Haven Buckner, NICOLE [address] [place] [address]94 Assigned PCP 05/19/23 documented as of this encounter
--- OUTSIDE RECORDS SUMMARY | 2024-05-06 07:34 | XMS_ITS | Encounter Summary ---
Author Organization [place] Address [address] [place] [address] Care Team Providers Care Encyclopedia Research Worker Name Role Phone Toma Arguello YESICA Unavailable [phone] Laura Us MD Unavailable [facility] Primary Care Provider Haven Buckner CNP Unavailable [phone] Jenise España MD Unavailable Unavailable Tierra Cancino-C Unavailable [phone] Luh Acharya-C Primary Care Provider + Luh Acharya-C Unavailable +- [phone] Tierra Cancino-C Unavailable [phone] Haven Buckner CNP Unavailable [phone] Luh Acharya PA-C Unavailable +[phone] Haven Buckner CNP Unavailable [phone] Reason for Visit * Reason Onset Date Comments Refill Request 08/26/2021 Encounter Details Date Type Department Care Team (Late st Contact Info) Description 08/26/2021 Cyndie Kow[address] [place] [phone] Luh Acharya PA-C [address] [place] [address] [phone] Refill Request Social History Tobacco Use Types [...] Manisha Patel RN - 08/31/2021 10:35 AM PITCH WORKER Due for an Office visit for further refills, only fill for 30 days Manisha Patel RN, BSN [facility] [place] Triage H WORKER documented in this encounter Plan of Treatment [...] documented as of this encounter Care Teams Encyclopedia Research Worker Relationship Specialty Start Date End Date Clinic - [facility] [place] [address] [address] PCP - General 10/06/20 11/20/21 Luh Acharya PA-C [address] [place] [address] PCP - General Family Medicine 11/21/21 01/02/23 Toma Arguello NP [address] [place] [address] Nurse Practitioner Nurse Practitioner Psych/Mental Health 04/11/17 Laura Us MD [address] [place], [place] 448007 Gastroenterology 12/20/18 Haven Buckner, BEHAVIORAL TECHNICIAN [address] [place] [address] Assigned PCP 05/22/21 11/26/21 Jenise España MD Assigned Heart and Vascular Provider 07/24/21 11/17/22 Tierra Cancino PA-C [address] [place] [address] Physician Metal Furnace Operator Urology 11/17/21 Luh Acharya PA-C [address] [place] [address] Assigned PCP 11/27/21 12/31/21 Tierra Cancino PA-C [address] [place] [address] Assigned Surgical Provider 12/11/21 06/08/23 Haven Buckner, NICOLE [address] [facility] [place] [address] Assigned PCP 01/01/22 12/22/22 Luh Acharya PA-C [address] [facility] [place] [address] Assigned PCP 12/23/22 05/18/23 Haven Buckner, BEHAVIORAL TECHNICIAN [address] [place] [address], [place] [address] Assigned PCP 05/19/23 documented as of this encounter
--- OUTSIDE RECORDS SUMMARY | 2024-05-06 07:34 | XMS_ITS | Encounter Summary ---
Author Organization [place] Address [address] [place] [address] Care Team Providers Care Advanced Clinical Specialist Name Role Phone Kathy Glover MD Primary Care Provider Toma Arguello NP Unavailable [phone] Laura Us MD Unavailable Kathy Glover MD Unavailable [phone] Luh AcharyaC Unavailable + [phone] Edward Marlow MD Unavailable [phone] [facility] Primary Care Provider Jas Bojorquez DO Unavailable +[phone] Haven Buckner CNP Unavailable +[phone] Jenise España MD Unavailable Unavailable Tierra Cancino-C Unavailable [phone] Luh Acharya PA-C Primary Care Provider + Luh Acharya PA-C Unavailable + [phone] Tierra Cancino-Melissa Unavailable Haven Buckner CNP Unavailable +1- Luh Acharya PA-C Unavailable +[phone] Haven Buckner CNP Unavailable [phone] Encounter Details Date Type Department Care Team (Late st Contact Info) Description 04/14/2020 MyC Medical Advice [address] [phone] Kathy Glover MD [address] [place] [address] [phone] Social History Tobacco Use Types Packs/Day Years [...] documented as of this encounter Care Teams Advanced Clinical Specialist Relationship Specialty Start Date End Date Kathy Glover MD [address] [place] [address] 518102 PCP - General Family Practice 06/03/15 10/05/20 Clinic - [address] [address] PCP - General 10/06/20 11/20/21 Luh Acharya PA-C [address] [place] [address] PCP - General Family Medicine 11/21/21 01/02/23 Toma Arguello NP [address] [address] Nurse Practitioner Nurse Practitioner Psych/Mental Health 04/11/17 Laura Us MD [address] [address] Gastroenterology 12/20/18 Kathy Glover MD [address] [place] [address] Assigned PCP 01/18/20 06/19/20 Luh Acharya PA-C [address] [place] [address] Assigned PCP 06/20/20 03/31/21 Edward Marlow MD [address] [place] [address] Assigned Surgical Provider 07/09/20 07/31/20 Jas Bojorquez DO [address] [place] [address] Assigned PCP 04/01/21 05/21/21 Haven Buckner, WIND UP OPERATOR [address] [place] [address], [place] [address] Assigned PCP 05/22/21 11/26/21 Jenise España MD Assigned Heart and Vascular Provider 07/24/21 11/17/22 Tierra Cancino PA-C [address] [place] [address] Physician Dewaxer Urology 11/17/21 Luh Acharya PA-C [address] [place] [address], [place] [address] Assigned PCP 11/27/21 12/31/21 Tierra Cancino PA-C [address] [place] [address] Assigned Surgical Provider 12/11/21 06/08/23 Haven Buckner CNP [address] [place] [address], [place] [address] Assigned PCP 01/01/22 12/22/22 Luh Acharya PA-C [address] [place] [address], [place] [address] Assigned PCP 12/23/22 05/18/23 Haven Buckner CNP [address] [place] [address], [place] [address] Assigned PCP 05/19/23 documented as of this encounter
--- OUTSIDE RECORDS SUMMARY | 2024-05-06 07:35 | XMS_ITS | Encounter Summary ---
Author Organization [place] Address [address] [place] [address] Care Team Providers Care Tool Tender Name Role Phone Kathy Glover MD Primary Care Provider Toma Arguello NP Unavailable Kathy Glover MD Unavailable [phone] Laura Us MD Unavailable Luh AcharyaC Unavailable + [phone] Kathy Glover MD Unavailable +[phone] Luh AcharyaC Unavailable + [phone] Edward Marlow MD Unavailable [phone] [facility] Primary Care Provider Jas Bojorquez DO Unavailable +[phone] Haven Buckner CNP Unavailable +[phone] Jenise España MD Unavailable Unavailable Tierra Cancino-C Unavailable Luh Acharya PA-C Primary Care Provider + Luh AcharyaC Unavailable Tierra Cancino PA-C Unavailable [phone] Haven Buckner CNP Unavailable +[phone] [phone] Luhkirsty Mcconnell PA-C Unavailable [phone] BucknerHaven lofton CNP Unavailable +-2 Reason for Visit * Reason Onset Date Comments MyChart Communication 01/09/2019 fibromyalg ia testing Encounter Details Date Type Department Care Team (Latest Contact Info) Description 01/09/2019 MyC Medical Advice [address] [phone] Marcy Smith, KARMEN MyChart Communication [...] 2:36 PM CDT Noted. Dona Smith RN [place] Triage documented in this encounter Plan of [...] Total Score: 5 11/22/19 19 7:06 AM MANAGER MANAGEMENT documented as of this encounter Care Teams Tool Tender Relationship Specialty Start Date End Date Kathy Glover MD [address] [place] [address] PCP - General Family Practice 06/03/15 10/05/[address] 677472 PCP - General 10/06/20 11/20/21 Luh Acharya PA-C [address] [place] [address] 247382 PCP - General Family Medicine 11/21/21 01/02/23 Toma Arguello NP [address] [address] Nurse Practitioner Nurse Practitioner Psych/Mental Health 04/11/17 Kathy Glover MD [address] [place] [address] Assigned PCP 07/25/15 12/20/19 Laura Us MD [address] [place] [address] Gastroenterology 12/20/18 Luh Acharya PA-C [address] [place] [address] Assigned PCP 12/21/19 01/17/20 Kathy lGover MD [address] [place] [address]41 Assigned PCP 01/18/20 06/19/20 Luh Acharya PA-C [address] [place] [address] 23535 Assigned PCP 06/20/20 03/31/21 Edward [place] [address] Assigned Surgical Provider 07/09/20 07/31/20 Jas Bojorquez DO [address] [place] [address] Assigned PCP 04/01/21 05/21/21 Hvaen Buckner CNP [address] [place] [address] Assigned PCP 05/22/21 11/26/21 Jenise España MD Assigned Heart and Vascular Provider 07/24/21 11/17/22 Tierra Cancino PA-C [address] [place] [address] Physician Bull Driver Urology 11/17/21 Luh Acharya PA-C [address] [place] [address] Assigned PCP 11/27/21 12/31/21 Tierra Cancino PA-C [address] [place] [address] Assigned Surgical Provider 12/11/21 06/08/23 Haven Buckner, NICOLE [address] [place] [address] Assigned PCP 01/01/22 12/22/22 Luh Acharya PA-C [address] [place] [address] Assigned PCP 12/23/22 05/18/23 Haven Buckner, NICOLE [address] [place] [address] Assigned PCP 05/19/23 documented as of this encounter
--- OUTSIDE RECORDS SUMMARY | 2024-05-06 07:35 | XMS_ITS | Encounter Summary ---
Author Organization [place] Address [address] [facility] [place] [address] Care Team Providers Care Pre Owned Sales Consultant Name Role Phone Kathy Glover MD Primary Care Provider Toma Arguello NP Unavailable [phone] Kathy Glover MD Unavailable [phone] Kathy Glover MD Unavailable +[phone] Laura Us MD Unavailable Luh AcharyaC Unavailable + [phone] Kathy Glover MD Unavailable + [phone] Luh AcharyaC Unavailable + [phone] Edward Marlow MD Unavailable [phone] [facility] Primary Care Provider Jas Bojorquez DO Unavailable +[phone] Haven Buckner CNP Unavailable +[phone] Jenise España MD Unavailable Unavailable Tierra Cancino PA-C Unavailable [phone] Luh AcharyaC Primary Care Provider + Luh Acharyace PA-C Unavailable +[phone] Tierra Cancinovandana BAUTISTAC Unavailable BucknerHaven lofton PRINTED CIRCUIT PHOTOGRAPHER Unavailable +[phone] Luh Acharya Enedina DUMONT-C Unavailable [phone] BucknerHaven lofton PRINTED CIRCUIT PHOTOGRAPHER Unavailable +12-2 Reason for Visit * Reason Onset Date Comments MyChart Communication 02/22/[address] recommendation Encounter Details Date Type Department Care Team (Late st Contact Info) Description 02/22/2017 MyC Medical Advice [address] [phone] Kathy Glover MD [address] [place] [address] MyChart Communication (psychiatrist recomm... Social History [...] documented as of this encounter Care Teams Pre Owned Sales Consultant Relationship Specialty Start Date End Date Kathy Glover MD [address] [place] [address] 618762 PCP - General Family Practice 06/03/15 10/05/20 Kathy Glover MD [address] [place] [address] 260672 PCP - Assigned PCP 07/25/15 11/19/[address] 129942 PCP - General 10/06/20 11/20/21 Luh Acharya PA-C [address] [place] [address] 289922 PCP - General Family Medicine 11/21/21 01/02/23 Toma Arguello NP [address] 428137 Nurse Practitioner Nurse Practitioner Psych/Mental Health 04/11/17 Kathy Glover MD [address] [place] [address] Assigned PCP 07/25/15 12/20/19 Laura Us MD [address] [place] [address] Gastroenterology 12/20/18 Luh Acharya PA-C [address] [place] [address] 48557 Assigned PCP 12/21/19 01/17/20 Kathy Glover MD [address] [place] [address] Assigned PCP 01/18/20 06/19/20 Luh Acharya PA-C [address] [place] [address] Assigned PCP 06/20/20 03/31/21 Edward Marlow MD [address] [place] [address] Assigned Surgical Provider 07/09/20 07/31/20 Jas Bojorquez DO [address] [place] [address]649 Assigned PCP 04/01/21 05/21/21 Haven Buckner, PRINTED CIRCUIT PHOTOGRAPHER [address] [place] [address] 264[address] Assigned PCP 05/22/21 11/26/21 Jenise España MD Assigned Heart and Vascular Provider 07/24/21 11/17/22 Tierra Cancino PA-C [address] [place] [address] Physician Senior Financial Consultant Urology 11/17/21 Luh Acharya PA-C [address] [place] [address], [place] [address] Assigned PCP 11/27/21 12/31/21 Tierra Cancino PA-C [address] [place] [address] Assigned Surgical Provider 12/11/21 06/08/23 Haven Buckner, NICOLE [address] [place] [address] Assigned PCP 01/01/22 12/22/22 Luh Acharya PA-C [address] [place] [address] 08694 Assigned PCP 12/23/22 05/18/23 Haven Buckner, NICOLE [address] [place] [address] 35745 Assigned PCP 05/19/23 documented as of this encounter
--- OUTSIDE RECORDS SUMMARY | 2024-05-06 07:35 | XMS_ITS | Encounter Summary ---
Author Organization [place] Address [address] [facility] [place] [address] Care Team Providers Care Chute Puller Name Role Phone Kathy Glover MD Primary Care Provider Toma Arguello NP Unavailable [phone] Kathy Glover MD Unavailable [phone] Kathy Glover MD Unavailable [phone] Laura Us MD Unavailable Luh AcharyaC Unavailable + [phone] Kathy Glover MD Unavailable + [phone] Luh AcharyaC Unavailable + [phone] Edward Marlow MD Unavailable [phone] [facility] Primary Care Provider Jas Bojorquez [...] (Late st Contact Info) Description 03/14/2018 Refill [facility] Mental Health & [facility] [address] [facility] [address] [place] [address] [place] [address] [place] [address] Medication Refill Social History Tobacco Use Types [...] documented as of this encounter Care Teams Chute Puller Relationship Specialty Start Date End Date Kathy Glover MD [address] [place] [address] PCP - General Family Practice 06/03/15 10/05/20 Kathy Glover MD [address] [place] [address] [phone] PCP - Assigned PCP 07/25/15 11/19/[address] 507342 PCP - General 10/06/20 11/20/21 Lhu Acharya PA-C [address] [place] [address] 753172 PCP - General Family Medicine 11/21/21 01/02/23 Toma Arguello NP [address] [address] Nurse Practitioner Nurse Practitioner Psych/Mental Health 04/11/17 Kathy Glover MD [address] [place] [address] Assigned PCP 07/25/15 12/20/19 Laura Us MD [address] [place] [address] Gastroenterology 12/20/18 Luh Acharya PA-C [address] [place] [address] 410402 Assigned PCP 12/21/19 01/17/20 Kathy Glover MD [address] [place] [address] 674382 Assigned PCP 01/18/20 06/19/20 Luh Acharya PA-C [address] [place] [address] 239612 Assigned PCP 06/20/20 03/31/21 Edward Marlow MD [address] [place], [place] 282267 Assigned Surgical Provider 07/09/20 07/31/20 Jas Bojorquez DO [address] [place] [address] 669592 Assigned PCP 04/01/21 05/21/21 Haven Buckner, PHOTOGRAPHY AND PRINTS CURATOR [address] [place] [address] 561612 Assigned PCP 05/22/21 11/26/21 Jenise España MD Assigned Heart and Vascular Provider 07/24/21 11/17/22 Tierra Cancino PA-C [address] [address] Physician Giant Tire Repairer Urology 11/17/21 Luh Acharya PA-C [address] [place] [address] Assigned PCP 11/27/21 12/31/21 Tierra Cancino PA-C [address] [place] [address] Assigned Surgical Provider 12/11/21 06/08/23 Haven Buckner, PHOTOGRAPHY AND PRINTS CURATOR [facility] [place] [address] Assigned PCP 01/01/22 12/22/22 Luh Acharya PA-C [address] [place] [address], [place] [address] Assigned PCP 12/23/22 05/18/23 Haven Buckner, PHOTOGRAPHY AND PRINTS CURATOR [address] [place] [address], [place] [address] Assigned PCP 05/19/23 documented as of this encounter
--- OUTSIDE RECORDS SUMMARY | 2024-05-06 07:35 | XMS_ITS | Encounter Summary ---
Author Organization [place] Address [address] [place] [address] Care Team Providers Care Flame Burner Name Role Phone Kathy Glover MD Primary Care Provider Toma Arguello NP Unavailable [phone] Kathy Glover MD Unavailable [phone] Kathy Glover MD Unavailable +[phone] Laura Us MD Unavailable Luh AcharyaC Unavailable + [phone] Kathy Glover MD Unavailable + [phone] Luh AcharyaC Unavailable + [phone] Edward Marlow MD Unavailable +[phone] [facility] Primary Care Provider Jas Bojorquez DO Unavailable +[phone] Haven Buckner CNP Unavailable +[phone] Jenise España MD Unavailable Unavailable Tierra Cancino PA-C Unavailable Luh AcharyaC Primary Care Provider + Luh AcharyaC Unavailable [phone] Tierra Cancino MICHELEC Unavailable Haven Buckner CNP Unavailable +[phone] Karri Acharyakirsty BAUTISTAC Unavailable +[phone] BucknerHaven lofton CNP Unavailable +12-2 Reason for Visit * Reason Onset Date Comments MyChart Communication 02/15/2017 migraine t reatments Encounter Details Date Type Department Care Team (Late st Contact Info) Description 02/15/2017 MyC Medical Advice [address] [address] Kathy Glover MD [address] [place] [address] MyChart Communication (migraine treatments) Social History [...] with PCP recommendations. TAYLA Simmons, RN, [place] Triage * Telephone Encounter - Kathy Glover [...] of PCP recommendations below. Script walked to [facility]. Patient asked if appeal letter had been written for her Midrin. I see that Midrin PA was denied on 01/17/2017. I do not see an appeal letter in chart so unsure of status. Will route to . TAYLA Simmons, RN, [place] Triage * Telephone Encounter - Marcy Smith RN - 02/21/2017 8:28 AM CDT Received signed script. Attempt #1 to call pt. Marcy Smith contacted Yenni on 02/21/17 and left a message. If patient calls back please contact RN team. Put script on [facility] desk incase pt calls back. Dona Smith RN * Telephone Encounter - Marcy Smith RN - 02/21/2017 7:55 AM CDT Prescription put on [facility] desk for signature to then give to triage to alert pt of below. Dona Smith RN * Telephone Encounter - Kathy Glover MD - 02/21/2017 12:20 AM CDT Done for #20 tabs for severe pain - try to just take 1/2 tab for migraines, if needed. rx at [facility], please bring to me later this am when back in clinic and I'll sign. rx needs to bi picked up or walked over to our pharmacy. Await results of referral from neurology. * Telephone Encounter - Coty Doan RN - 02/16/2017 3:28 PM CDT Please review patient's mychart message. TAYLA Simmons, RN, PHN [place] Triage * Telephone Encounter - Coty Doan RN - 02/16/2017 2:40 PM CDT Mychart note sent to patient with provider recommendations below. TAYLA Simmons, RN, PHN [place] Triage * Telephone Encounter - Kathy Glover MD - 02/16/2017 2:29 PM CDT ? Is pt doing the postconcussion program either through [facility] or via [place] concussion powerhouse operator? Would highly recommend the [place] program. If pt desires to do medical [...] documented as of this encounter Care Teams Flame Burner Relationship Specialty Start Date End Date Kathy Glover MD [address] [place] [address] PCP - General Family Practice 06/03/15 10/05/20 Kathy Glover MD [address] [place] [address] [phone] PCP - Assigned PCP 07/25/15 11/19/[address] 306002 PCP - General 10/06/20 11/20/21 Luh Acharya PA-C [address] [place] [address] 411182 PCP - General Family Medicine 11/21/21 01/02/23 Toma Arguello NP [address] [address] Nurse Practitioner Nurse Practitioner Psych/Mental Health 04/11/17 Kathy Glover MD [address] [place] [address] 48231 Assigned PCP 07/25/15 12/20/19 Laura Us MD [address] [place] [address] 42148 Gastroenterology 12/20/18 Luh Acharya PA-C [address] [place] [address] 43793 Assigned PCP 12/21/19 01/17/20 Kathy Glover MD [address] [place] [address] 837312 Assigned PCP 01/18/20 06/19/20 Luh Acharya PA-C [address] [place] [address] 830602 Assigned PCP 06/20/20 03/31/21 [place] [address] Assigned Surgical Provider 07/09/20 07/31/20 Jas Bojorquez DO [address] [place] [address] 739032 Assigned PCP 04/01/21 05/21/21 Haven Buckner, NICOLE [address] [place] [address] 488162 Assigned PCP 05/22/21 11/26/21 Jenise España MD Assigned Heart and Vascular Provider 07/24/21 11/17/22 Tierra Cancino PA-C [address] [place] [address] Physician Knot Borer Urology 11/17/21 Luh Acharya PA-C [address] [place] [address], [place] [address] Assigned PCP 11/27/21 12/31/21 Tierra Cancino PA-C [address] [place] [address] Assigned Surgical Provider 12/11/21 06/08/23 Haven Buckner, RESIDENT CARE TECHNICIAN [address] [place] [address], [place] [address] Assigned PCP 01/01/22 12/22/22 Luh Acharya PA-C [address] [place] [address], [place] [address] Assigned PCP 12/23/22 05/18/23 Haven Buckner, RESIDENT CARE TECHNICIAN [address] [place] [address] Assigned PCP 05/19/23 documented as of this encounter
--- OUTSIDE RECORDS SUMMARY | 2024-05-06 07:35 | XMS_ITS | Encounter Summary ---
Author Organization [place] Address [address] [place] [address] Care Team Providers Care Corporate Legal Manager Name Role Phone Kathy Glover MD Primary Care Provider Toma Arguello NP Unavailable [phone] Kathy Glover MD Unavailable [phone] Kathy Glover MD Unavailable +[phone] Laura Us MD Unavailable Luh AcharyaC Unavailable + [phone] Kathy Glover MD Unavailable + [phone] Luh AcharyaC Unavailable + [phone] Edward Marlow MD Unavailable [phone] [facility] [place] Primary Care Provider Jas Bojorquez DO Unavailable +[phone] Haven Buckner CNP Unavailable +[phone] Jenise España MD Unavailable Unavailable Tierra Cancino PA-C Unavailable [phone] Luh AcharyaC Primary Care Provider + Luh Acharya-C Unavailable [phone] Tierra Cancinojose guadalupe BAUTISTAC Unavailable [phone] BucknerHaven lofton CNP Unavailable +1--2 AcharyaLuh jerome-C Unavailable +1- BucknerHaven lofton CNP Unavailable +1-2 Reason for Visit * Reason Comments Medication Refill Encounter Details Date Type Department Care Team (Late st Contact Info) Description 06/27/2018 Refill [facility] [address] [facility] [address] [place] [address] [place] [address] [place], [place] [phone] Medication Refill Social History Tobacco Use Types [...] documented as of this encounter Care Teams Corporate Legal Manager Relationship Specialty [place] [address] [place] [address] PCP - General Family Practice 06/03/15 10/05/20 Kathy Glover MD [address] [place] [address] PCP - Assigned PCP 07/25/15 11/19/[address] 826982 PCP - General 10/06/20 11/20/21 Luh Acharya PA-C [address] [place] [address] 952072 PCP - General Family Medicine 11/21/21 01/02/23 Toma Arguello NP [address] [address] Nurse Practitioner Nurse Practitioner Psych/Mental Health 04/11/17 Kathy Glover MD [address] [place] [address] 41915 Assigned PCP 07/25/15 12/20/19 Laura Us MD [address] [place] [address] 82995 Gastroenterology 12/20/18 Luh Acharya PA-C [address] [place] [address] 94378 Assigned PCP 12/21/19 01/17/20 Kathy Glover MD [address] [place] [address] 50209 Assigned PCP 01/18/20 06/19/20 Luh Acharya PA-C [address] [place] [address] 26866 Assigned PCP 06/20/20 03/31/21 Edward Mar[place] [address] Assigned Surgical Provider 07/09/20 07/31/20 Jas Bojorquez DO [address] [place] [address] 49427 Assigned PCP 04/01/21 05/21/21 Haven Buckner CNP [address] [place] [address] 05727 Assigned PCP 05/22/21 11/26/21 Jenise España MD Assigned Heart and Vascular Provider 07/24/21 11/17/22 Tierra Cancino PA-C [address] [place] [address] Physician Procurement Accountant Urology 11/17/21 Luh Acharya PA-C [address] [place] [address] 31471 Assigned PCP 11/27/21 12/31/21 Tierra Cancino PA-C [address] [place] [address] Assigned Surgical Provider 12/11/21 06/08/23 Haven Buckner, NICOLE [address] [place] [address] 66680 Assigned PCP 01/01/22 12/22/22 Luh Acharya PA-C [address] [place] [address] Assigned PCP 12/23/22 05/18/23 Haven Buckner, NICOLE [address] [place] [address] 99303 Assigned PCP 05/19/23 documented as of this encounter
--- OUTSIDE RECORDS SUMMARY | 2024-05-06 07:35 | XMS_ITS | Encounter Summary ---
Author Organization [place] Address [address] [facility] [address] Care Team Providers Care Tool Designer Apprentice Name Role Phone Kathy Glover MD Primary Care Provider Toma Arguello NP Unavailable [phone] Kathy Glover MD Unavailable +[phone] Laura Us MD Unavailable Luh AcharyaC Unavailable + [phone] Kathy Glover MD Unavailable +[phone] Luh AcharyaC Unavailable + [phone] Edward Marlow MD Unavailable [phone] [facility] Primary Care Provider Jas Bojorquez DO Unavailable +[phone] Haven Buckner CNP Unavailable +[phone] Jenise España MD Unavailable Unavailable Tierra Cancino-C Unavailable [phone] Luh Acharya PA-C Primary Care Provider + Luh AcharyaC Unavailable [phone] Tierra Cancino PA-C Unavailable Haven Buckner PNEUMATIC TUBE OPERATOR Unavailable +[phone] Acharya Luh Enedina BAUTISTAC Unavailable [phone] BucknerHaven lofton PNEUMATIC TUBE OPERATOR Unavailable [phone] Reason for Visit * Reason Onset Date Comments MyChart Communication 01/17/2019 Encounter Details Date Type Department Care Team (Late st Contact Info) Description 01/17/2019 MyC Medical Advice [address] [address] [place] [address] [place] [address] MyChart Communication Social History Tobacco Use [...] AM CDT mychart sent. Dona Smith RN [place] Triage * Telephone Encounter - Renay Barlow RN - 01/17/2019 4:55 PM CDT MyChart Message sent Awaiting response Renay Barlow RN [place] Triage * Telephone Encounter - Coty Doan RN - 01/17/2019 9:40 AM CDT Mychart note sent to patient. Coty Doan BS, RN, PHN [facility] Triage ) [phone] documented in this encounter Plan of Treatment Not on file documented as of this encounter Visit Diagnoses Not on filedocumented in this encounter Additional Health Concerns Infection Onset Date Last Indicated Resolved Time Rule Out COVID-19 06/06/2021 06/06/2021 06/06/2021 5:30 PM CDT Rule Out COVID-19 12/19/2021 12/19/2021 12/20/2021 1:02 PM CDT Assessment Noted Time PHQ-9 Depression Total Score: 5 11/22/19 19 7:06 AM OFFENSIVE COORDINATOR documented as of this encounter Care Teams Tool Designer Apprentice Relationship Specialty Start Date End Date Kathy Glover MD [address] [place] [address] [phone] PCP - General Family Practice 06/03/15 10/05/[address] 034012 PCP - General 10/06/20 11/20/21 Luh Acharya PA-C [address] [place] [address] 472932 PCP - General Family Medicine 11/21/21 01/02/23 Toma Arguello NP [address] [address] Nurse Practitioner Nurse Practitioner Psych/Mental Health 04/11/17 aKthy Glover MD [address] [place] [address], [place] [address] Assigned PCP 07/25/15 12/20/19 Laura Us MD [address] [place] [address] 76899 Gastroenterology 12/20/18 Luh Acharya PA-C [address] [place] [address], [place] [address] Assigned PCP 12/21/19 01/17/20 Kathy Glover MD [address] [place] [address] 36[address] Assigned PCP 01/18/20 06/19/20 Luh Acharya, REFUGIO [address] [place] [address] 719142 Assigned PCP 06/20/20 03/31/[address] [facility] [place] [address] Assigned Surgical Provider 07/09/20 07/31/20 Jas Bojorquez DO [address] [place] [address] 660302 Assigned PCP 04/01/21 05/21/21 Haven Buckner, PNEUMATIC TUBE OPERATOR [address] [place] [address] Assigned PCP 05/22/21 11/26/21 Jenise España MD Assigned Heart and Vascular Provider 07/24/21 11/17/22 Tierra Cancino PA-C [address] [place] [address] Physician Meat And Poultry Inspector Urology 11/17/21 Luh Acharya PA-C [address] [place] [address], [place] [address] Assigned PCP 11/27/21 12/31/21 Tierra Cancino PA-C [address] [place] [address] Assigned Surgical Provider 12/11/21 06/08/23 Haven Buckner, NICOLE [address] [place] [address], [place] [address] Assigned PCP 01/01/22 12/22/22 Luh Acharya PA-C [address] [place] [address], [place] [address] Assigned PCP 12/23/22 05/18/23 Haven Buckner, NICOLE [address] [place] [address], [place] [address] Assigned PCP 05/19/23 documented as of this encounter
--- OUTSIDE RECORDS SUMMARY | 2024-05-06 07:35 | XMS_ITS | Encounter Summary ---
Author Organization [place] Address [address] [facility] [place] [address] Care Team Providers Care Leather Production Machine Operator Name Role Phone Kathy Glover MD Primary Care Provider Toma Arguello NP Unavailable [phone] Kathy Glover MD Unavailable [phone] Kathy Glover MD Unavailable +[phone] Laura Us MD Unavailable Luh AcharyaC Unavailable + [phone] Kathy Glover MD Unavailable + [phone] Luh AcharyaC Unavailable + [phone] Edward Marlow MD Unavailable [phone] [facility] Primary Care Provider Jas Bojorquez DO Unavailable +[phone] Haven Buckner CNP Unavailable +[phone] Jenise España MD Unavailable Unavailable Tierra Cancino PA-C Unavailable Luh AcharyaC Primary Care Provider + Luh AcharyaC Unavailable [phone] Tierra Cancinojose guadalupe BAUTISTAC Unavailable Haven Buckner CNP Unavailable +1--2 Luh AcharyaC Unavailable +1- BucknerHaven lofton CNP Unavailable +1- Reason for Referral * Diagnostic Imaging MRI - Closed Specialty Diagnoses / Procedures Referred By Contlidia t Referred To Contact Radiology. Diagnoses Complex cyst of right ovary Procedures MR Pelvis (MANAGER SOURCING) wo & w Contrast MR Pelvis (MANAGER SOURCING) w Contrast Kathy Glover MD [address] [place] [address] Mri [address] [place] [address] Referral ID Status Reason Start Date Expiration Date Visits Re quested Visits Authorized [id number] Closed 08/19/2018 08/19/2019 1 1 LE TAILSTOCK TURRET LATHE OPERATOR Reason for Visit * Reason Onset Date Comments MyChart Communication 08/15/2018 Re: MRI re sults back specialist Encounter Details Date Type Department Care Team (Late st Contact Info) Description 08/15/2018 MyC Medical Advice [address] [place] [address] Kathy Glover MD [address] [place] [address] MyChart Communication (Re: MRI results bennett... [...] Doan RN - 08/19/2018 9:42 AM CST [employer] message sent to patient with recommendation below. TAYLA Simmons, RN, PHN [facility] [phone] LE TAILSTOCK TURRET LATHE OPERATOR * Telephone Encounter - Kathy Glover MD - 08/19/2018 6:19 AM TUMBLE TAILSTOCK TURRET LATHE OPERATOR Possible hemorrhagic right adnexal cysts noted on MRI lumbar spine - radiology recommended MR of pelvis to better discern. Ordered. Please inform patient. LE TAILSTOCK TURRET LATHE OPERATOR * Telephone Encounter - Coty Doan RN - 08/15/2018 12:56 PM TUMBLE TAILSTOCK TURRET LATHE OPERATOR Forwarded to . Please review patient's Hyper [employer] Level User [employer] message and advise. Coty Doan RN, BS, PHN LE TAILSTOCK TURRET LATHE OPERATOR documented in this encounter Plan of Treatment Not on file documented as of this encounter Results * MR Pelvis (MANAGER SOURCING) wo & w Contrast (08/27/2018 8:13 AM TUMBLE TAILSTOCK TURRET LATHE OPERATOR) Anatomical Region Laterality Modality Abdomen/Pelvis, SUBRAD MR BODY, UMP MR BODY, RAD MR Magnetic Resonance Impressions 08/27/2018 4:09 PM TUMBLE TAILSTOCK TURRET LATHE OPERATOR IMPRESSION: 1. Grouping of cysts at the right upper pelvis may arise from the right ovary versus adnexa. Two of these have elevated T1 signal suggesting hemorrhagic cysts while another is a small simple cyst. 2. The uterus is absent. The left ovary is not visualized for assessment. 3. A few scattered colonic diverticula. JAXON STAPLES MD Narrative 08/27/2018 4:09 PM TUMBLE TAILSTOCK TURRET LATHE OPERATOR MR PELVIS (MANAGER SOURCING) WITH AND WITHOUT CONTRAST August 27, 2018 8:13 AM HISTORY: Complex cysts near right adnexa noted on MRI lumbar spine. Rule out hemorrhagic/endometriosis. TECHNIQUE: Multiplanar, multiecho MRI was performed using T1, T2, and in- and fwt-xh-jxnlc imaging. Pre- and postcontrast T1 images were [...] Jaxon Staples MD - 08/27/2018 MR PELVIS (MANAGER SOURCING) WITH AND WITHOUT CONTRAST August 27, 2018 8:13 AM HISTORY: Complex cysts near right adnexa noted on MRI lumbar spine. Rule out hemorrhagic/endometriosis. TECHNIQUE: Multiplanar, multiecho MRI was performed using T1, T2, and in- and oqz-co-dkeom imaging. Pre- and postcontrast T1 images were [...] documented as of this encounter Care Teams Leather Production Machine Operator Relationship Specialty Start Date End Date Kathy Glover MD [address] [place] [address] [phone] PCP - General Family Practice 06/03/15 10/05/20 Kathy Glover MD [address] [place] [address] [phone] PCP - Assigned PCP 07/25/15 11/19/[address] 578402 PCP - General 10/06/20 11/20/21 Luh Acharya PA-C [address] [place] [address] [phone] PCP - General Family Medicine 11/21/21 01/02/23 Toma Arguello NP [address] 477637 Nurse Practitioner Nurse Practitioner Psych/Mental Health 04/11/17 Kathy Glover MD [address] [place] [address] 9[address]11 Assigned PCP 07/25/15 12/20/19 Laura Us MD [address] [place] [address] 23969 Gastroenterology 12/20/18 Luh Acharya PA-C [address] [place] [address] 04708 Assigned PCP 12/21/19 01/17/20 Kathy Glover MD [address] [place] [address] 36990 Assigned PCP 01/18/20 06/19/20 Luh Acharya PA-C [address] [place] [address] 80616 Assigned PCP 06/20/20 03/31/21 Edward Marlow MD [address] [place] [address] 12618 Assigned Surgical Provider 07/09/20 07/31/20 Jas Bojorquez DO [address] [place] [address] 55845 Assigned PCP 04/01/21 05/21/21 Haven Buckner, TRAIN STATION SERVER [address] [place] [address] [place] [address] Assigned PCP 05/22/21 11/26/21 Jenise España MD Assigned Heart and Vascular Provider 07/24/21 11/17/22 Tierra Cancino PA-C [address] [place] [address] Physician Sewer Line Repairer Urology 11/17/21 Luh Acharya PA-C [address] [place] [address] 21369 Assigned PCP 11/27/21 12/31/21 Tierra Cancino PA-C [address] [place] [address] Assigned Surgical Provider 12/11/21 06/08/23 Haven Buckner CNP [address] [place] [address] 40150 Assigned PCP 01/01/22 12/22/22 Luh Acharya PA-C [address] [place] [address] 26973 Assigned PCP 12/23/22 05/18/23 Haven Buckner CNP [address] [place] [address] 34213 Assigned PCP 05/19/23 documented as of this encounter
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
--- OUTSIDE RECORDS SUMMARY | 2024-05-06 07:35 | XMS_ITS | Encounter Summary ---
Author Organization [place] Address [address] [place] [address] Care Team Providers Care Fashion Editor Name Role Phone Kathy Glover MD Primary Care Provider Toma Arguello NP Unavailable [phone] Kathy Glover MD Unavailable +[phone] Kathy Glover MD Unavailable +[phone] Laura Us MD Unavailable Luh AcharyaC Unavailable + [phone] Kathy Glover MD Unavailable + [phone] Luh AcharyaC Unavailable + [phone] Edward Marlow MD Unavailable +[phone] [facility] Primary Care Provider Jas Bojorquez DO Unavailable +[phone] Haven Buckner CNP Unavailable +[phone] Jenise España MD Unavailable Unavailable Tierra Cancino PA-C Unavailable Luh AcharyaC Primary Care Provider + Luh AcharyaC Unavailable ShaniTierra goel Magda BAUTISTAC Unavailable Haven Buckner CNP Unavailable +1-2-2 Luh Acharya-C Unavailable +[phone] BucknerHaven lofton CNP Unavailable [phone] Reason for Visit * Reason Onset Date Comments Call To Schedule Appointment 07/29/2018 Lef t message to schedule DEXA Encounter Details Date Type Department Care Team (Late st Contact Info) Description 07/29/[address] [place] [address] Kathy Glover MD [address] [place] [address] Call To Schedule Appointment (Left [...] PM CST Left message to schedule DEXA ER SERVICES REPRESENTATIVE documented in this encounter Plan of Treatment [...] documented as of this encounter Care Teams Fashion Editor Relationship Specialty Start Date End Date Kathy Glover MD [address] [place] [address]147 PCP - General Family Practice 06/03/15 10/05/20 Kathy Glover MD [address] [place] [address] PCP - Assigned PCP 07/25/15 11/19/[address] [address] PCP - General 10/06/20 11/20/21 Luh Acharya PA-C [address] [place] [address] 25141 PCP - General Family Medicine 11/21/21 01/02/23 Toma Arguello NP [address] [address] Nurse Practitioner Nurse Practitioner Psych/Mental Health 04/11/17 Kathy Glover MD [address] [place] [address] 98292 Assigned PCP 07/25/15 12/20/19 Laura Us MD [address] [place] [address] 73396 Gastroenterology 12/20/18 Luh Acharya PA-C [address] [place] [address] 63415 Assigned PCP 12/21/19 01/17/20 Kathy Glover MD [address] [place] [address] 632452 Assigned PCP 01/18/20 06/19/20 Luh Acharya PA-C [address] [place] [address] 097152 Assigned PCP 06/20/20 03/31/21 [place] [address] Assigned Surgical Provider 07/09/20 07/31/20 Jas Bojorquez DO [address] [place] [address] 226762 Assigned PCP 04/01/21 05/21/21 Haven Buckner, WIRE PULLER [address] [place] [address] 389212 Assigned PCP 05/22/21 11/26/21 Jenise España MD Assigned Heart and Vascular Provider 07/24/21 11/17/22 Tierra Cancino PA-C [address] [facility] [place] [address] Physician Hematology Oncology Consultant Urology 11/17/21 Luh Acharya PA-C [address] [place] [address] [place] [address] Assigned PCP 11/27/21 12/31/21 Tierra Cancino PA-C [address] [place] [place] [address] Assigned Surgical Provider 12/11/21 06/08/23 Haven Buckner, WIRE PULLER [address] [place] [address], [place] [address] Assigned PCP 01/01/22 12/22/22 Luh Acharya PA-C [address] [place] [address], [place] [address] Assigned PCP 12/23/22 05/18/23 Haven Buckner, WIRE PULLER [address] [place] [address], [place] [address] Assigned PCP 05/19/23 documented as of this encounter
--- OUTSIDE RECORDS SUMMARY | 2024-05-06 07:35 | XMS_ITS | Encounter Summary ---
Author Organization [place] Address [address] [facility] [place] [address] Care Team Providers Care Journalist Name Role Phone Kathy Glover MD Primary Care Provider Toma Arguello NP Unavailable [phone] Kathy Glover MD Unavailable +[phone] Laura Us MD Unavailable Luh AcharyaC Unavailable + [phone] Kathy Glover MD Unavailable +[phone] Luh AcharyaC Unavailable + [phone] Edward Marlow MD Unavailable +[phone] [facility] Primary Care Provider Jas Bojorquez DO Unavailable +[phone] Haven Buckner CNP Unavailable +[phone] Jenise España MD Unavailable Unavailable Tierra Cancino-C Unavailable [phone] Luh Acharya PA-C Primary Care Provider + Luh AcharyaC Unavailable +[phone] Tierra Cancino PA-C Unavailable Haven Buckner CNP Unavailable +[phone] Luh Acharya PA-C Unavailable +[phone] Haven Buckner CNP Unavailable +[phone] Encounter Details Date Type Department Care Team (Late st Contact Info) Description 01/08/2019 [facility] [address] [phone] Marcy Smith RN Social History Tobacco Use [...] Total Score: 5 11/22/19 19 7:06 AM SALES ACCOUNT SPECIALIST documented as of this encounter Care Teams Journalist Relationship Specialty Start Date End Date Kathy Glover MD [address] [place] [address] 688602 PCP - General Family Practice 06/03/15 10/05/20 Clinic - [address] [address] PCP - General 10/06/20 11/20/21 Luh Acharya PA-C [address] [place] [address] PCP - General Family Medicine 11/21/21 01/02/23 Toma Arguello LICENSED LOAN OFFICER [address] [address] Nurse Practitioner Nurse Practitioner Psych/Mental Health 04/11/17 Kathy Glover MD [address] [place] [address]154 Assigned PCP 07/25/15 12/20/19 Laura Us MD [address] [place] [address] 0[address]67 Gastroenterology 12/20/18 Luh Acharya PA-C [address] [place] [address] 51552 Assigned PCP 12/21/19 01/17/20 Kathy Glover MD [address] [place] [address] 32072 Assigned PCP 01/18/20 06/19/20 Luh Acharya PA-C [address] [place] [address] 54282 Assigned PCP 06/20/20 03/31/21 Edward Marlow MD [address] [place] [address] Assigned Surgical Provider 07/09/20 07/31/20 Jas Bojorquez DO [address] [place] [address] 692412 Assigned PCP 04/01/21 05/21/21 Haven Buckner, RAG GRADER [address] [place] [address] 382742 Assigned PCP 05/22/21 11/26/21 Jenise España MD Assigned Heart and Vascular Provider 07/24/21 11/17/22 Tierra Cancino PA-C [address] [place] [address] Physician Management Developer Urology 11/17/21 Luh Acharya PA-C [address] [place] [address] 12550 Assigned PCP 11/27/21 12/31/21 Tierra Cancino PA-C [facility] [facility] [address] [place] [address] Assigned Surgical Provider 12/11/21 06/08/23 Haven Buckner, NICOLE [address] [place] [address] 29850 Assigned PCP 01/01/22 12/22/22 Luh Acharya PA-C [address] [place] [address] Assigned PCP 12/23/22 05/18/23 Haven Buckner, RAG GRADER [address] [place] [address] Assigned PCP 05/19/23 documented as of this encounter
--- OUTSIDE RECORDS SUMMARY | 2024-05-06 07:35 | XMS_ITS | Encounter Summary ---
Author Organization [place] Address [address] [place] [address] Care Team Providers Care Machine Stone Polisher Apprentice Name Role Phone Kathy Glover MD Primary Care Provider Toma Arguello NP Unavailable [phone] Kathy Glover MD Unavailable +[phone] Kathy Glover MD Unavailable +[phone] Laura Us MD Unavailable Luh AcharyaC Unavailable + [phone] Kathy Glover MD Unavailable + [phone] Luh AcharyaC Unavailable + [phone] Edward Marlow MD Unavailable +[phone] [facility] Primary Care Provider Jas Bojorquez DO Unavailable +[phone] Haven Buckner CNP Unavailable +[phone] Jenise España MD Unavailable Unavailable Tierra Cancino PA-C Unavailable Luh AcharyaC Primary Care Provider + Luh Acharya PA-C Unavailable [phone] Barak Tierra Man PA-C Unavailable Haven Buckner [...] documented as of this encounter Care Teams Machine Stone Polisher Apprentice Relationship Specialty [place] [address] [place] [address] 440482 PCP - General Family Practice 06/03/15 10/05/20 Kathy Glover MD [address] [place] [address] 846342 PCP - Assigned PCP 07/25/15 11/19/[address] [address] PCP - General 10/06/20 11/20/21 Luh Acharya PA-C [address] [place] [address] 88015 PCP - General Family Medicine 11/21/21 01/02/23 Toma Arguello NP [address] [address] Nurse Practitioner Nurse Practitioner Psych/Mental Health 04/11/17 Kathy Glover MD [address] [place] [address] 24669 Assigned PCP 07/25/15 12/20/19 Laura Us MD [address] [place] [address] 44164 Gastroenterology 12/20/18 Luh Acharya PA-C [address] [place] [address] 02475 Assigned PCP 12/21/19 01/17/20 Kathy Glover MD [address] [place] [address] 19690 Assigned PCP 01/18/20 06/19/20 Luh Acharya PA-C [address] [place] [address] 70669 Assigned PCP 06/20/20 03/31/21 Edward Marlow MD [address] [place] [address] Assigned Surgical Provider 07/09/20 07/31/20 Jas Bojorquez DO [address] [place] [address] 70168 Assigned PCP 04/01/21 05/21/21 Haven Buckner, INDOOR LANDSCAPER/GARDENER [address] [place] [address] 0[address]62 Assigned PCP 05/22/21 11/26/21 Jenise España MD Assigned Heart and Vascular Provider 07/24/21 11/17/22 Tierra Cancino PA-C [address] [place] [address] Physician Instant Potato Processing Supervisor Urology 11/17/21 Luh Acharya PA-C [address] [place] [address] 416[address] Assigned PCP 11/27/21 12/31/21 Tierra Cancino PA-C [address] [place] [address] Assigned Surgical Provider 12/11/21 06/08/23 Haven Buckner, INDOOR LANDSCAPER/GARDENER [address] [place] [address] Assigned PCP 01/01/22 12/22/22 Luh Acharya PA-C [address] [place] [address] Assigned PCP 12/23/22 05/18/23 Haven Buckner, INDOOR LANDSCAPER/GARDENER [address] [place] [address] 17269 Assigned PCP 05/19/23 documented as of this encounter
--- OUTSIDE RECORDS SUMMARY | 2024-05-06 07:35 | XMS_ITS | Encounter Summary ---
Author Organization [place] Address [address] [facility] [place] [address] Care Team Providers Care Top Lift Scourer Name Role Phone Kathy Glover MD Primary Care Provider Toma Arguello NP Unavailable Kathy Glover MD Unavailable [phone] Kathy Glover MD Unavailable +[phone] Laura Us MD Unavailable Luh AcharyaC Unavailable + [phone] Kathy Glover MD Unavailable + [phone] Luh AcharyaC Unavailable + [phone] Edward Marlow MD Unavailable [phone] [facility] Primary Care Provider Jas Bojorquez DO Unavailable +[phone] Haven Buckner CNP Unavailable +[phone] Jenise España MD Unavailable Unavailable Tierra Cancino PA-C Unavailable Luh AcharyaC Primary Care Provider + Luh AcharyaC Unavailable Tierra Cancino MICHELEC Unavailable Haven Buckner CNP Unavailable [phone] Luh Acharya-C Unavailable [phone] BucknerHaven lofton CNP Unavailable +[phone] Reason for Visit * Reason Onset Date Comments MyChart Communication 01/23/2017 Re: TIM for Midtheresa Encounter Details Date Type Department Care Team (Late st Contact Info) Description 01/23/2017 My[facility] [address] [address] [place] [address] [place] [address] MyChart Communication (Re: TIM for Midrin) [...] sooner appointment is needed. You can call [phone] and ask that on-call provider be paged. Coty Doan, BS, RN, PHN Kimberly Triage * Telephone Encounter - Coty Doan RN - 01/26/2017 4:17 PM CDT VM left for nurses line at [facility] to call us back. Detailed message left with PCP note below. TAYLA Simmons, RN, PHN Kimberly Triage * Telephone Encounter - Kathy Glover MD - 01/26/2017 3:26 PM CDT BP Readings from Last 6 Encounters: 01/05/17 130/80 10/16/16 132/85 09/16/16 116/82 07/14/16 116/66 07/07/16 116/66 06/30/16 120/86 bp well controlled. Please call [facility] Consultants re: pt's increasing creatinine and decreasing [...] CDT Routing to PCP for further review/recommendations/orders. Dnoa Smith RN documented in this encounter Plan [...] documented as of this encounter Care Teams Top Lift Scourer Relationship Specialty Start Date End Date Kathy Glover MD [address] [place] [address] PCP - General Family Practice 06/03/15 10/05/20 Kathy Glover MD [address] [place] [address] PCP - Assigned PCP 07/25/15 11/19/[address] [address] PCP - General 10/06/20 11/20/21 Luh Acharya PA-C [address] [place] [address] PCP - General Family Medicine 11/21/21 01/02/23 Toma Arguello NP [place] [address] [place] [address] Nurse Practitioner Nurse Practitioner Psych/Mental Health 04/11/17 Kathy Glover MD [address] [place] [address] Assigned PCP 07/25/15 12/20/19 Laura Us MD [address] [place] [address] 121632 Gastroenterology 12/20/18 Luh Acharya PA-C [address] [place] [address] 517422 Assigned PCP 12/21/19 01/17/20 Kathy Glover MD [address] [place] [address] 575222 Assigned PCP 01/18/20 06/19/20 Luh Acharya PA-C [address] [place] [address] 289012 Assigned PCP 06/20/20 03/31/21 Edward Marlow MD [facility] [place] [address] Assigned Surgical Provider 07/09/20 07/31/20 Jas Bojorquez DO [address] [place] [address], [place] [address] Assigned PCP 04/01/21 05/21/21 Haven Buckner, PHOTOENGRAVER [address] [place] [address], [place] [address] Assigned PCP 05/22/21 11/26/21 Jenise España MD Assigned Heart and Vascular Provider 07/24/21 11/17/22 Tierra Cancino PA-C [address] [place] [address] Physician Director Of Analytical Development Urology 11/17/21 Luh Acharya PA-C [address] [place] [address], [place] [address] Assigned PCP 11/27/21 12/31/21 Tierra Cancino PA-C [address] [place] [address] Assigned Surgical Provider 12/11/21 06/08/23 Haven Buckner, PHOTOENGRAVER [address] [place] [address], [place] [address] Assigned PCP 01/01/22 12/22/22 Luh Acharya PA-C [address] [place] [address], [place] [address] Assigned PCP 12/23/22 05/18/23 Haven Buckner, NICOLE [address] [place] [address] Assigned PCP 05/19/23 documented as of this encounter
--- OUTSIDE RECORDS SUMMARY | 2024-05-06 07:35 | XMS_ITS | Encounter Summary ---
Author Organization [place] Address [address] [facility] [place] [address] Care Team Providers Care Fish Skinning Machine Feeder Name Role Phone Kathy Glover MD Primary Care Provider Toma Arguello NP Unavailable [phone] Kathy Glover MD Unavailable +[phone] Kathy Glover MD Unavailable +[phone] Laura Us MD Unavailable Luh AcharyaC Unavailable + [phone] Kathy Glover MD Unavailable + [phone] Luh AcharyaC Unavailable + [phone] Edward Marlow MD Unavailable [phone] [facility] Primary Care Provider Jas Bojorquez DO Unavailable +[phone] Haven Buckner CNP Unavailable +[phone] Jenise España MD Unavailable Unavailable Tierra Cancino PA-C Unavailable Luh AcharyaC Primary Care Provider + Luh AcharyaC Unavailable +[phone] Shaniamando Tierra Magda HUFF Unavailable +[phone] Haven Buckner CNP Unavailable +1-2-2 Luh AcharyaC Unavailable +[phone] BucknerHaven lofton CNP Unavailable +1--2 Encounter Details Date Type Department Care Team (Late st Contact Info) Description 03/16/2017 MyC Medical Advice [address] [address] Kathy Glover MD [address] [place] [address] [phone] Social History Tobacco Use Types Packs/Day Years [...] documented as of this encounter Care Teams Fish Skinning Machine Feeder Relationship Specialty Start Date End Date Kathy Glover MD [address] [place] [address] [id number] PCP - General Family Practice 06/03/15 10/05/20 Kathy Glover MD [address] [place] [address] 22599 PCP - Assigned PCP 07/25/15 11/19/[address] [address] PCP - General 10/06/20 11/20/21 Luh Acharya PA-C [address] [place] [address] [phone] PCP - General Family Medicine 11/21/21 01/02/23 Toma Arguello NP [address] 546037 Nurse Practitioner Nurse Practitioner Psych/Mental Health 04/11/17 Kathy Glover MD [address] [place] [address] Assigned PCP 07/25/15 12/20/19 Laura Us MD [address] [place] [address]68 Gastroenterology 12/20/18 Luh Acharya PA-C [address] [place] [address] Assigned PCP 12/21/19 01/17/20 Kathy Glover MD [address] [place] [address] 19985 Assigned PCP 01/18/20 06/19/20 Luh Acharya PA-C [address] [place] [address] 43301 Assigned PCP 06/20/20 03/31/21 Edward Mar[place] [address] Assigned Surgical Provider 07/09/20 07/31/20 Jas Bojorquez DO [address] [place] [address] 828392 Assigned PCP 04/01/21 05/21/21 Haven Buckner CNP [address] [place] [address]96 Assigned PCP 05/22/21 11/26/21 Jenise España MD Assigned Heart and Vascular Provider 07/24/21 11/17/22 Tierra Cancino PA-C [address] [place] [address] Physician Director Of Outpatient Services Urology 11/17/21 Luh Acharya PA-C [address] [place] [address] Assigned PCP 11/27/21 12/31/21 Tierra Cancino PA-C [address] [place] [address] Assigned Surgical Provider 12/11/21 06/08/23 Haven Buckner CNP [address] [place] [address]654 Assigned PCP 01/01/22 12/22/22 Luh Acharya PA-C [address] [place] [address] 45063 Assigned PCP 12/23/22 05/18/23 Haven Buckner CNP [address] [place] [address]40 Assigned PCP 05/19/23 documented as of this encounter
--- OUTSIDE RECORDS SUMMARY | 2024-05-06 07:35 | XMS_ITS | Encounter Summary ---
Author Organization [place] Address [address] [facility] [place] [address] Care Team Providers Care Blood Splatter Analyst Name Role Phone Kathy Glover MD Primary Care Provider Toma Arguello NP Unavailable [phone] Kathy Glover MD Unavailable +[phone] Kathy Glover MD Unavailable +[phone] Laura Us MD Unavailable Luh AcharyaC Unavailable + [phone] Kathy Glover MD Unavailable + [phone] Luh AcharyaC Unavailable + [phone] Edward Marlow MD Unavailable [phone] [facility] Primary Care Provider Jas Bojorquez DO Unavailable +[phone] Haven Buckner CNP Unavailable +[phone] Jenise España MD Unavailable Unavailable Tierra Cancino PA-C Unavailable Luh AcharyaC Primary Care Provider + Luh Acharyace PA-C Unavailable [phone] Tierra Cancinovandana DUMONT-C Unavailable BucknerHaven lofton CNP Unavailable [phone] Luh Acharya Enedina DUMONT-C Unavailable +[phone] Sita Haven Harding CNP Unavailable [phone] Reason for Visit * Reason Onset Date Comments MyChart Communication 01/18/2017 referrals Encounter Details Date Type Department Care Team (Late st Contact Info) Description 01/18/2017 MyC Medical Advice [address] [address] [place] [address] [place] [address] MyChart Communication (referrals) Social History Tobacco [...] Smith RN - 01/18/2017 12:44 PM CDT [employer] sent with information. Dona Smith RN documented [...] documented as of this encounter Care Teams Blood Splatter Analyst Relationship Specialty Start Date End Date Kathy Glover MD [address] [place] [address] PCP - General Family Practice 06/03/15 10/05/20 Kathy Glover MD [address] [place] [address] 895162 PCP - Assigned PCP 07/25/15 11/19/[address] 104982 PCP - General 10/06/20 11/20/21 Luh Acharya PA-C [address] [place] [address] 169442 PCP - General Family Medicine 11/21/21 01/02/23 Toma Arguello NP [address] [address] Nurse Practitioner Nurse Practitioner Psych/Mental Health 04/11/17 Kathy Glover MD [address] [place] [address] Assigned PCP 07/25/15 12/20/19 Laura Us MD [address] [place] [address] Gastroenterology 12/20/18 Luh Acharya PA-C [address] [place] [address] 64[address] Assigned PCP 12/21/19 01/17/20 Kathy Glover MD [address] [place] [address] 477492 Assigned PCP 01/18/20 06/19/20 Luh Acharya PA-C [address] [place] [address] 903632 Assigned PCP 06/20/20 03/31/21 Edward Marlow MD [address] [place] [address] Assigned Surgical Provider 07/09/20 07/31/20 Jas Bojorquez DO [address] [place] [address] [id number] Assigned PCP 04/01/21 05/21/21 Haven Buckner, NICOLE [address] [place] [address] 291612 Assigned PCP 05/22/21 11/26/21 Jenise España MD Assigned Heart and Vascular Provider 07/24/21 11/17/22 Tierra Cancino PA-C [address] [address] Physician Automation Qtp Tester Urology 11/17/21 Luh Acharya PA-C [address] [facility] [place] [address] Assigned PCP 11/27/21 12/31/21 Tierra Cancino PA-C [address] [place] [address] Assigned Surgical Provider 12/11/21 06/08/23 Haven Buckner, WEB PRESS OPERATOR HELPER OFFSET [address] [facility] [place] [address] Assigned PCP 01/01/22 12/22/22 Luh Acharya PA-C [address] [facility] [place] [address] Assigned PCP 12/23/22 05/18/23 Haven Buckner, WEB PRESS OPERATOR HELPER OFFSET [facility] [place] [address] Assigned PCP 05/19/23 documented as of this encounter
--- OUTSIDE RECORDS SUMMARY | 2024-05-06 07:35 | XMS_ITS | Encounter Summary ---
Author Organization [place] Address [address] [facility] [place] [address] Care Team Providers Care Entry Tech Name Role Phone Kathy Glover MD Primary Care Provider Toma Arguello NP Unavailable [phone] Kathy Glover MD Unavailable [phone] Kathy Glover MD Unavailable +[phone] Laura Us MD Unavailable Luh AcharyaC Unavailable + [phone] Kathy Glover MD Unavailable + [phone] Luh AcharyaC Unavailable + [phone] Edward Marlow MD Unavailable [phone] [facility] Primary Care Provider Jas Bojorquez DO Unavailable +[phone] Haven Buckner CNP Unavailable +[phone] Jenise España MD Unavailable Unavailable Tierra Cancino PA-C Unavailable [phone] Luh AcharyaC Primary Care Provider + Luh AcharyaC Unavailable [phone] Barak Tierra Man PA-C Unavailable Haven Buckner [...] as of this encounter Care Teams Entry Tech Relationship Specialty Start Date End Date Kathy Glover MD [address] [place] [address] [phone] PCP - General Family Practice 06/03/15 10/05/20 Kathy Glover MD [address] [place] [address] [phone] PCP - Assigned PCP 07/25/15 11/19/[address] [address] PCP - General 10/06/20 11/20/21 Luh Acharya PA-C [address] [place] [address] PCP - General Family Medicine 11/21/21 01/02/23 Toma Arguello TIN CAN LABORER [address] 478847 Nurse Practitioner Nurse Practitioner Psych/Mental Health 04/11/17 Kathy Glvoer MD [address] [place] [address] [phone] Assigned PCP 07/25/15 12/20/19 Laura Us MD [address] [place] [address] 725092 Gastroenterology 12/20/18 Luh Acharya PA-C [address] [place] [address] [phone] Assigned PCP 12/21/19 01/17/20 Kathy Glover MD [address] [place] [address] 06658 Assigned PCP 01/18/20 06/19/20 Luh Acharya PA-C [address] [place] [address] 038[address] Assigned PCP 06/20/20 03/31/21 Edward Marlow MD [address] [place], [place] 484297 Assigned Surgical Provider 07/09/20 07/31/20 Jas Bojorquez DO [address] [place] [address] 179882 Assigned PCP 04/01/21 05/21/21 Haven Buckner, OB/GYN [address] [place] [address] 573172 Assigned PCP 05/22/21 11/26/21 Jenise España MD Assigned Heart and Vascular Provider 07/24/21 11/17/22 Tierra Cancino PA-C [address] [facility] [place] [address] Physician Floor Representative Urology 11/17/21 Luh Acharya PA-C [address] [place] [address] Assigned PCP 11/27/21 12/31/21 Tierra Cancino PA-C [address] [place] [address] Assigned Surgical Provider 12/11/21 06/08/23 Haven Buckner, OB/GYN [address] [place] [address] Assigned PCP 01/01/22 12/22/22 Luh Acharya PA-C [address] [place] [address] Assigned PCP 12/23/22 05/18/23 Haven Buckner, NICOLE [address] [place] [address] Assigned PCP 05/19/23 documented as of this encounter
--- OUTSIDE RECORDS SUMMARY | 2024-05-06 07:35 | XMS_ITS | Encounter Summary ---
Author Organization [place] Address [address] [facility] [place] [address] Care Team Providers Care Lens Engraver Name Role Phone Kathy Glover MD Primary Care Provider Toma Arguello NP Unavailable [phone] Kathy Glover MD Unavailable +[phone] Kathy Glover MD Unavailable +[phone] Laura Us MD Unavailable Luh AcharyaC Unavailable + [phone] Kathy Glover MD Unavailable + -[phone] Luh AcharyaC Unavailable + [phone] Edward Marlow MD Unavailable +[phone] [facility] Primary Care Provider Jas Bojorquez DO Unavailable +[phone] Haven Buckner CNP Unavailable +2-2 [phone] Jenise España MD Unavailable Unavailable Tierra Cancino PA-C Unavailable Luh AcharyaC Primary Care Provider + Luh Acharya PA-C Unavailable [phone] Tierra Cancinoe PA-C Unavailable Haven Buckner CONTOUR STITCHER Unavailable +1-2-2 [phone] Luh Acharya PA-C Unavailable [phone] BucknerHaven lofton CONTOUR STITCHER Unavailable +1-2-2 [phone] Reason for Visit * Reason Onset Date Comments Refill Request 04/18/2018 topiramate (TOPA MAX) 50 MG tablet Encounter Details Date Type Department Care Team (Late st Contact Info) Description 04/18/2018 Refill [facility] [address] [place] [address] Kathy Glover MD [address] [place] [address] Refill Request (topiramate (TOPAMAX) 50 [...] from weight check today. Dona Smith RN [place] Triage * Telephone Encounter - Giovanna Casey - 04/24/2018 3:24 PM CDT Left non-detailed message for patient to call back. Please schedule follow up when patient calls back. (see previous notes for details) [facility] Pediatric Physician * Telephone Encounter - Tiffanie Darby RN [...] this from neurology? TAYLA Simmons, RN, PHN [facility] [phone] * Telephone Encounter - Nery Chua - [...] HCT 38.9 PLT 342 For GICH ONLY: [id number] = WBC, [id number] = RBC Passed - Normal ALT or [...] status migrainosus- now seeing Dr. Damian - [facility] - used to see Dr. Eliseo Dubon [facility] clinic of Neurology Migraine without aura, with [...] documented as of this encounter Care Teams Lens Engraver Relationship Specialty Start Date End Date Kathy Glover MD [address] [place] [address] [phone] PCP - General Family Practice 06/03/15 10/05/20 Kathy Glover MD [address] [place] [address] [phone] PCP - Assigned PCP 07/25/15 11/19/[address] 131272 PCP - General 10/06/20 11/20/21 Luh Acharya PA-C [address] [place] [address] [phone] PCP - General Family Medicine 11/21/21 01/02/23 Toma Arguello NP [address] [address] Nurse Practitioner Nurse Practitioner Psych/Mental Health 04/11/17 Kathy Glover MD [address] [place] [address] 19430 Assigned PCP 07/25/15 12/20/19 Laura Us MD [address] [place] [address] 04119 Gastroenterology 12/20/18 Luh Acharya PA-C [address] [place] [address] 77772 Assigned PCP 12/21/19 01/17/20 Kathy Glover MD [address] [place] [address] 67667 Assigned PCP 01/18/20 06/19/20 Luh Acharya PA-C [address] [place] [address] 84691 Assigned PCP 06/20/20 03/31/21 Edward Marlow MD [address] [place] [address] 03467 Assigned Surgical Provider 07/09/20 07/31/20 Jas Bojorquez DO [address] [place] [address] 79028 Assigned PCP 04/01/21 05/21/21 Haven Buckner, CONTOUR STITCHER [address] [place] [address] 37990 Assigned PCP 05/22/21 11/26/21 Jenise España MD Assigned Heart and Vascular Provider 07/24/21 11/17/22 Tierra Cancino PA-C [address] [place] [address] Physician Ground Crew Chief Urology 11/17/21 Luh Acharya PA-C [address] [place] [address] 62878 Assigned PCP 11/27/21 12/31/21 Tierra Cancino PA-C [address] [place] [address] Assigned Surgical Provider 12/11/21 06/08/23 Haven Buckenr CNP [address] [place] [address] 95163 Assigned PCP 01/01/22 12/22/22 Luh Acharya PA-C [address] [place] [address] 37422 Assigned PCP 12/23/22 05/18/23 Haven Buckner CNP [address] [place] [address] 45295 Assigned PCP 05/19/23 documented as of this encounter
--- OUTSIDE RECORDS SUMMARY | 2024-05-06 07:35 | XMS_ITS | Encounter Summary ---
Author Organization [place] Address [address] [facility] [place] [address] Care Team Providers Care Spearer Name Role Phone Kathy Glover MD Primary Care Provider Toma Arguello NP Unavailable Kathy Glover MD Unavailable [phone] Kathy Glover MD Unavailable +[phone] Laura Us MD Unavailable Luh AcharyaC Unavailable + [phone] Kathy Glover MD Unavailable + [phone] Luh AcharyaC Unavailable + [phone] Edward Marlow MD Unavailable [phone] [facility] Primary Care Provider Jas Bojorquez DO Unavailable +[phone] Haven Buckner CNP Unavailable +2-2 [phone] Jenise España MD Unavailable Unavailable Tierra Cancino PA-C Unavailable Luh AcharyaC Primary Care Provider + Luh AcharyaC Unavailable [phone] EdchandanTierra goeljose guadalupe BAUTISTAC Unavailable Haven Buckner CNP Unavailable +1-- Luh AcharyaC Unavailable +1- BucknerHaven lofton CNP Unavailable +1 Encounter Details Date Type Department Care Team (Late st Contact Info) Description 02/28/2017 My[facility] Medical Advice [address] [phone] Marcy Smith RN Social History Tobacco Use [...] documented as of this encounter Care Teams Spearer Relationship Specialty Start Date End Date Kathy Glover MD [address] [place] [address] [phone] PCP - General Family Practice 06/03/15 10/05/20 Kathy Glover MD [address] [place] [address] 82999 PCP - Assigned PCP 07/25/15 11/19/[address] [address] PCP - General 10/06/20 11/20/21 Luh Acharya PA-C [address] [place] [address] 99375 PCP - General Family Medicine 11/21/21 01/02/23 Toma Arguello NP [address] [address] Nurse Practitioner Nurse Practitioner Psych/Mental Health 04/11/17 Kathy Glover MD [address] [place] [address] 91732 Assigned PCP 07/25/15 12/20/19 Laura Us MD [address] [place] [address] 86027 Gastroenterology 12/20/18 Luh Acharya PA-C [address] [place] [address] 23870 Assigned PCP 12/21/19 01/17/20 Kathy Glover MD [address] [place] [address] 54696 Assigned PCP 01/18/20 06/19/20 Luh Acharya PA-C [address] [place] [address] 56895 Assigned PCP 06/20/20 03/31/21 Edward Mar[place] [address] Assigned Surgical Provider 07/09/20 07/31/20 Jas Bojorquez DO [address] [place] [address] [phone] Assigned PCP 04/01/21 05/21/21 Haven Buckner, NICOLE [address] [place] [address] 03111 Assigned PCP 05/22/21 11/26/21 Jenise España MD Assigned Heart and Vascular Provider 07/24/21 11/17/22 Tierra Cancino PA-C [address] [place] [address] Physician Buckle Assembler Urology 11/17/21 Luh Acharya PA-C [address] [place] [address] 85758 Assigned PCP 11/27/21 12/31/21 Tierra Cancino PA-C [address] [place] [address] Assigned Surgical Provider 12/11/21 06/08/23 Haven Buckner CNP [address] [place] [address], [place] [address] Assigned PCP 01/01/22 12/22/22 Luh Acharya PA-C [address] [place] [address] 53576 Assigned PCP 12/23/22 05/18/23 Haven Buckner, MANAGER CT [address] [place] [address] 25873 Assigned PCP 05/19/23 documented as of this encounter
--- OUTSIDE RECORDS SUMMARY | 2024-05-06 07:35 | XMS_ITS | Encounter Summary ---
Author Organization [place] Address [address] [facility] [place] [address] Care Team Providers Care Garbage Collector Driver Name Role Phone Kathy Glover MD Primary Care Provider Toma Arguello NP Unavailable [phone] Kathy Glover MD Unavailable +[phone] Kathy Glover MD Unavailable +[phone] Laura Us MD Unavailable Luh AcharyaC Unavailable + [phone] Kathy Glover MD Unavailable + -[phone] Luh AcharyaC Unavailable + [phone] Edward Marlow MD Unavailable [phone] [facility] Primary Care Provider Jas Bojorquez DO Unavailable +[phone] Haven Buckner CNP Unavailable +2-2 [phone] Jenise España MD Unavailable Unavailable Tierra Cancino PA-C Unavailable Luh AcharyaC Primary Care Provider + Luh Acharya PA-C Unavailable ShaniTierra goeljose guadalupe HUFF Unavailable Haven Buckner CNP Unavailable +12-2 [phone] Luh Acharya PA-C Unavailable +[phone] BucknerHaven lofton CNP Unavailable +118-2 Reason for Visit * Reason Comments Medication Refill Gabapentin Encounter Details Date Type Department Care Team (Late st Contact Info) Description 03/05/[address] [address] Kathy Glover MD [address] [place] [address] Medication Refill (Gabapentin) Social History [...] # refills: 0 Last Office Visit with [facility] primary care provider: 02/22/17 (evisit) 01/05/17 (in- office visit) Clinic visit frequency required: Q 6 months Future Office visit: Controlled substance agreement on file: Yes: Date 01/05/17. Processing: Fax Rx to [facility] pharmacy [employer] POL[employer] RESERVES checked in past 6 months? No, route [...] documented as of this encounter Care Teams Garbage Collector Driver Relationship Specialty Start Date End Date Kathy Glover MD [address] [place] [address]80 PCP - General Family Practice 06/03/15 10/05/20 Kathy Glover MD [address] [place] [address] 36696 PCP - Assigned PCP 07/25/15 11/19/[address] 975352 PCP - General 10/06/20 11/20/21 Luh Acharya PA-C [address] [place] [address] 050082 PCP - General Family Medicine 11/21/21 01/02/23 Toma Arguello NP [address] [address] Nurse Practitioner Nurse Practitioner Psych/Mental Health 04/11/17 Kathy Glover MD [address] [place] [address] [place] [address] Assigned PCP 07/25/15 12/20/19 Laura Us MD [address] [place] [address], [place] [address] Gastroenterology 12/20/18 Luh Acharya PA-C [address] [place] [address], [place] [address] Assigned PCP 12/21/19 01/17/20 Kathy Glover MD [address] [place] [address] 31726 Assigned PCP 01/18/20 06/19/20 Luh Acharya PA-C [address] [place] [address], [place] [address] Assigned PCP 06/20/20 03/31/21 Edward Marlow MD [facility] [place] [address] Assigned Surgical Provider 07/09/20 07/31/20 Jas Bojorquez DO [address] [place] [address], [place] [address] Assigned PCP 04/01/21 05/21/21 Haven Buckner, BENCH WORKER APPRENTICE [address] [place] [address] 24594 Assigned PCP 05/22/21 11/26/21 Jenise España MD Assigned Heart and Vascular Provider 07/24/21 11/17/22 Tierra Cancino PA-C [address] [place] [address] Physician Inspector Open Die Urology 11/17/21 Luh Acharya PA-C [address] [place] [address] 86903 Assigned PCP 11/27/21 12/31/21 Tierra Cancino PA-C [address] [place] [address] Assigned Surgical Provider 12/11/21 06/08/23 Haven Buckner, NICOLE [address] [place] [address] 20543 Assigned PCP 01/01/22 12/22/22 Luh Acharya PA-C [address] [place] [address] 93583 Assigned PCP 12/23/22 05/18/23 Haven Buckner, BENCH WORKER APPRENTICE [address] [place] [address] 65407 Assigned PCP 05/19/23 documented as of this encounter
--- OUTSIDE RECORDS SUMMARY | 2024-05-06 07:36 | XMS_ITS | Encounter Summary ---
Author Organization [place] Address [address] [facility] [place] [address] Care Team Providers Care Hospital Medicine Director Name Role Phone Kathy Glover MD Primary Care Provider Toma Arguello NP Unavailable [phone] Kathy Glover MD Unavailable +[phone] Kathy Glover MD Unavailable +[phone] Laura Us MD Unavailable Luh AcharyaC Unavailable + [phone] Kathy Glover MD Unavailable + -[phone] Luh AcharyaC Unavailable + [phone] Edward Marlow MD Unavailable [phone] [facility] Primary Care Provider Jas Bojorquez DO Unavailable +-[phone] Haven Buckner CNP Unavailable +2-2 26-2600 Jenise España MD Unavailable Unavailable Tierra Cancino PA-C Unavailable [phone] Luh AcharyaC Primary Care Provider + Luh AcharyaC Unavailable [phone] Barak Tierra Man PA-C Unavailable Haven Buckner CNP Unavailable +1-2-2 Luh AcharyaC Unavailable +[phone] BucknerHaven lofton CNP Unavailable +181-2 Reason for Visit * Reason Onset Date Comments Refill Request 05/09/2016 flexeril Encounter Details Date Type Department Care Team (Late st Contact Info) Description 05/09/[address] [address] [place] [address] [place] [address] Refill Request (flexeril) Social History Tobacco [...] for review/approval because: Drug not on the [facility] [place] not on med list for RN protocol. Dona Smith RN * Telephone Encounter - Krunal Whitehead - 05/09/2016 9:18 AM CDT cyclobenzaprine (FLEXERIL) 5 MG tablet Last Written Prescription Date: 01.01.16 Last Fill Quantity: 42, # refills: 0 Last Office Visit with [facility] or [facility] prescribing provider: 8.11.16 documented in this [...] Total Score: 5 11/19/19 16 7:51 AM LIDAR SCIENTIST documented as of this encounter Care Teams Hospital Medicine Director Relationship Specialty Start Date End Date Kathy Glover MD [address] [place] [address] PCP - General Family Practice 06/03/15 10/05/20 Kathy Glover MD [address] [place] [address] PCP - Assigned PCP 07/25/15 11/19/[address] [address] PCP - General 10/06/20 11/20/21 Luh Acharya PA-C [address] [place] [address] PCP - General Family Medicine 11/21/21 01/02/23 Toma Arguello NP [facility] [address] [place] [address] Nurse Practitioner Nurse Practitioner Psych/Mental Health 04/11/17 Kathy Glover MD [address] [place] [address] Assigned PCP 07/25/15 12/20/19 Laura Us MD [address] [place] [address] Gastroenterology 12/20/18 Luh Acharya PA-C [address] [place] [address]57 Assigned PCP 12/21/19 01/17/20 Kathy Glover MD [address] [place] [address] 244122 Assigned PCP 01/18/20 06/19/20 Luh Acharya PA-C [address] [place] [address] Assigned PCP 06/20/20 03/31/21 Edward Marlow MD [address] [place] [address] Assigned Surgical Provider 07/09/20 07/31/20 Jas Bojorquez DO [address] [place] [address]325 Assigned PCP 04/01/21 05/21/21 Haven Buckner, NICOLE [address] [place] [address], [place] [address] Assigned PCP 05/22/21 11/26/21 Jenise España MD Assigned Heart and Vascular Provider 07/24/21 11/17/22 Tierra Cancino PA-C [address] [place] [address] Physician Direct Care Professional Urology 11/17/21 Luh Acharya PA-C [address] [place] [address], [place] [address] Assigned PCP 11/27/21 12/31/21 Tierra Cancino PA-C [address] [place] [address] Assigned Surgical Provider 12/11/21 06/08/23 Haven Buckner CNP [address] [place] [address], [place] [address] Assigned PCP 01/01/22 12/22/22 Luh Acharya PA-C [address] [place] [address], [place] [address] Assigned PCP 12/23/22 05/18/23 Haven Buckner, NICOLE [address] [place] [address], [place] [address] Assigned PCP 05/19/23 documented as of this encounter
--- OUTSIDE RECORDS SUMMARY | 2024-05-06 07:36 | XMS_ITS | Encounter Summary ---
Author Organization [place] Address [address] [facility] [place] [address] Care Team Providers Care Culinary Instructor Name Role Phone Kathy Glover MD Primary Care Provider Toma Arguello NP Unavailable Kathy Glover MD Unavailable [phone] Kathy Glover MD Unavailable +[phone] Laura Us MD Unavailable Luh AcharyaC Unavailable + [phone] Kathy Glover MD Unavailable + [phone] Luh AcharyaC Unavailable + [phone] Edward Marlow MD Unavailable [phone] [facility] Primary Care Provider Jas Bojorquez DO Unavailable +[phone] Haven Buckner CNP Unavailable +2-2 [phone] Jenise España MD Unavailable Unavailable Tierra Cancino PA-C Unavailable Luh AcharyaC Primary Care Provider + Luh AcharyaC Unavailable [phone] Tierra Cancinojose guadalupe HUFF Unavailable Haven Buckner CNP Unavailable +1--2 Luh AcharyaC Unavailable +[phone] BucknerHaven lofton CNP Unavailable +162-2 Reason for Visit * Reason Comments Medication Refill Encounter Details Date Type Department Care Team (Late st Contact Info) Description 05/09/[address] [phone] Kathy Glover MD [address] [place] [address] [phone] Medication Refill Social History Tobacco Use Types [...] Total Score: 5 11/19/19 16 7:51 AM IT INFRASTRUCTURE SPECIALIST documented as of this encounter Care Teams Culinary Instructor Relationship Specialty Start Date End Date Kathy Glover MD [address] [place] [address] PCP - General Family Practice 06/03/15 10/05/20 Kathy Glover MD [address] [place] [address] [phone] PCP - Assigned PCP 07/25/15 11/19/[address] 354822 PCP - General 10/06/20 11/20/21 Luh Acharya PA-C [address] [place] [address] [phone] PCP - General Family Medicine 11/21/21 01/02/23 Toma Arguello NP [address] [address] Nurse Practitioner Nurse Practitioner Psych/Mental Health 04/11/17 Kathy Glover MD [address] [place] [address] 34480 Assigned PCP 07/25/15 12/20/19 Laura Us MD [address] [place] [address] 51065 Gastroenterology 12/20/18 Luh Acharya PA-C [address] [place] [address] 34828 Assigned PCP 12/21/19 01/17/20 Kathy Glover MD [address] [place] [address] 21141 Assigned PCP 01/18/20 06/19/20 Luh Acharya PA-C [address] [place] [address] 11185 Assigned PCP 06/20/20 03/31/21 Edward Mar[place] [address] Assigned Surgical Provider 07/09/20 07/31/20 Jas Bojorquez DO [address] [place] [address]11 Assigned PCP 04/01/21 05/21/21 Haven Buckner, NICOLE [address] [place] [address] 19017 Assigned PCP 05/22/21 11/26/21 Jenise España MD Assigned Heart and Vascular Provider 07/24/21 11/17/22 Tierra Cancino PA-C [address] [place] [address] Physician Retort Furnace Helper Urology 11/17/21 Luh Acharya PA-C [address] [place] [address] 42718 Assigned PCP 11/27/21 12/31/21 Tierra Cancino PA-C [address] [place] [address] Assigned Surgical Provider 12/11/21 06/08/23 Haven Buckner, NICOLE [address] [place] [address]62 Assigned PCP 01/01/22 12/22/22 Luh Acharya PA-C [address] [place] [address] 34333 Assigned PCP 12/23/22 05/18/23 Haven Buckner CNP [address] [place] [address] 26969 Assigned PCP 05/19/23 documented as of this encounter
--- OUTSIDE RECORDS SUMMARY | 2024-05-06 07:36 | XMS_ITS | Encounter Summary ---
Author Organization [place] Address [address] [facility] [place] [address] Care Team Providers Care Network Technician Name Role Phone Kathy Glover MD Primary Care Provider Toma Arguello NP Unavailable [phone] Kathy Glover MD Unavailable [phone] Kathy Glover MD Unavailable +[phone] Laura Us MD Unavailable Luh AcharyaC Unavailable + [phone] Kathy Glover MD Unavailable + -[phone] Luh AcharyaC Unavailable + [phone] Edward Marlow MD Unavailable [phone] [facility] Primary Care Provider Jas Bojorquez DO Unavailable +[phone] Haven Buckner CNP Unavailable +2-2 [phone] Jenise España MD Unavailable Unavailable Tierra Cancino PA-C Unavailable [phone] Luh AcharyaC Primary Care Provider + Luh AcharyaC Unavailable Tierra Cancinojose guadalupe BAUTISTAC Unavailable Haven Buckner CNP Unavailable +1-2-2 Luh AcharyaC Unavailable +[phone] BucknerHaven lofton CNP Unavailable +1--2 Reason for Visit * Reason Comments Medication Refill traZODone (DESYREL) 100 MG tablet Encounter Details Date Type Department Care Team (Late st Contact Info) Description 01/19/[address] [phone] Kathy Glover MD [address] [place] [address] Medication Refill (traZODone (DESYREL) 100 MG [...] advise Thank you Manisha Patel RN, BSN [place] Triage * Telephone Encounter - Renay Barlow RN - 01/20/2016 11:32 AM CDT traZODone (DESYREL) 100 MG tablet Rx was D/C on 11/18/15 due to Dosage Adjustment - Pt wanted to go down to 50mg Last Written Prescription Date: 06/02/15 Last Fill Quantity: n/a; # refills: n/a Last Office Visit with [facility] or [facility] prescribing provider: 11/18/15 Next 5 appointments (look out 90 days) January 29, 2016 8:45 AM Office Visit with Kathy Glover MD [facility] [address] [place] [phone] Last PHQ-9 score on record= PHQ-9 SCORE 11/18/2015 Total Score 5 AST 39 11/18/2015 ALT 78 11/18/2015 Renay Barlow Patient Associate Spa Director documented in this encounter Plan of Treatment [...] Total Score: 5 11/19/19 16 7:51 AM ANSWERING SERVICE OPERATOR documented as of this encounter Care Teams Network Technician Relationship Specialty Start Date End Date Kathy Glover MD [address] [place] [address] PCP - General Family Practice 06/03/15 10/05/20 Kathy Glover MD [address] [place] [address] PCP - Assigned PCP 07/25/15 11/19/[address] [address] PCP - General 10/06/20 11/20/21 Luh Acharya PA-C [address] [place] [address] 30987 PCP - General Family Medicine 11/21/21 01/02/23 Toma Arguello NP [address] [address] Nurse Practitioner Nurse Practitioner Psych/Mental Health 04/11/17 Kathy Glover MD [address] [place] [address] Assigned PCP 07/25/15 12/20/19 Laura Us MD [address] [place] [address]326 Gastroenterology 12/20/18 Luh Acharya PA-C [address] [place] [address] Assigned PCP 12/21/19 01/17/20 Kathy Glover MD [address] [place] [address]1984 Assigned PCP 01/18/20 06/19/20 Luh Acharya PA-C [address] [place] [address] Assigned PCP 06/20/20 03/31/21 Edward Marlow MD [address] [place] [address]219 Assigned Surgical Provider 07/09/20 07/31/20 Jas Bojorquez DO [address] [place] [address] Assigned PCP 04/01/21 05/21/21 Haven Buckner, PIERCE AND SHAVE PRESS OPERATOR [address] [place] [address] Assigned PCP 05/22/21 11/26/21 Jenise España MD Assigned Heart and Vascular Provider 07/24/21 11/17/22 Tierra Cancino PA-C [address] [place] [address] Physician Student Outreach Coordinator Urology 11/17/21 Luh Acharya PA-C [address] [place] [address] Assigned PCP 11/27/21 12/31/21 Tierra Cancino PA-C [address] [facility] [address] [place] [address] Assigned Surgical Provider 12/11/21 06/08/23 Haven Buckner, NICOLE [address] [place] [address] Assigned PCP 01/01/22 12/22/22 Luh Acharya PA-C [address] [place] [address] Assigned PCP 12/23/22 05/18/23 Haven Buckner, PIERCE AND SHAVE PRESS OPERATOR [address] [place] [address] Assigned PCP 05/19/23 documented as of this encounter
--- OUTSIDE RECORDS SUMMARY | 2024-05-06 07:36 | XMS_ITS | Encounter Summary ---
Author Organization [place] Address [address] [facility] [place] [address] Care Team Providers Care Cost Control Supervisor Name Role Phone Kathy Glover MD Primary Care Provider Toma Arguello NP Unavailable [phone] Kathy Glover MD Unavailable [phone] Kathy Glover MD Unavailable +[phone] Laura Us MD Unavailable Luh AcharyaC Unavailable + [phone] Kathy Glover MD Unavailable + [phone] Luh AcharyaC Unavailable + [phone] Edward Marlow MD Unavailable [phone] [facility] Primary Care Provider Jas Bojorquez DO Unavailable +[phone] Haven Buckner CNP Unavailable +2-2 [phone] Jenise España MD Unavailable Unavailable Tierra Cancino PA-C Unavailable Luh AcharyaC Primary Care Provider + Luh AcharyaC Unavailable [phone] Shaniamando Tierra Magda HUFF Unavailable Haven Buckner CNP Unavailable +1-2-2 Luh AcharyaC Unavailable +[phone] BucknerHaven lofton CNP Unavailable +[phone] Encounter Details Date Type Department Care Team (Late st Contact Info) Description 06/30/2016 MyC Medical Advice [address] [phone] Mahesh Cuevas Jr., MD [address] [place] [address] [phone] Social History Tobacco Use Types Packs/Day Years [...] documented as of this encounter Care Teams Cost Control Supervisor Relationship Specialty Start Date End Date Kathy Glover MD [address] [place] [address] [phone] PCP - General Family Practice 06/03/15 10/05/20 Kathy Glover MD [address] [place] [id number] PCP - Assigned PCP 07/25/15 11/19/[address] [address] PCP - General 10/06/20 11/20/21 Luh Acharya PA-C [address] [place] [address] [phone] PCP - General Family Medicine 11/21/21 01/02/23 Toma Arguello NP [address] [phone] Nurse Practitioner Nurse Practitioner Psych/Mental Health 04/11/17 Kathy Glover MD [address] [place] [address] Assigned PCP 07/25/15 12/20/19 Laura Us MD [address] [place] [address]17 Gastroenterology 12/20/18 Luh Acharya PA-C [address] [place] [address] 47183 Assigned PCP 12/21/19 01/17/20 Kathy Glover MD [address] [place] [address] Assigned PCP 01/18/20 06/19/20 Luh Acharya PA-C [address] [place] [address] 75235 Assigned PCP 06/20/20 03/31/21 Edward Marlow MD [place] [address] Assigned Surgical Provider 07/09/20 07/31/20 Jas Bojorquez DO [address] [place] [address] 52955 Assigned PCP 04/01/21 05/21/21 Haven Buckner CNP [address] [place] [address] 08371 Assigned PCP 05/22/21 11/26/21 Jenise España MD Assigned Heart and Vascular Provider 07/24/21 11/17/22 Tierra Cancino PA-C [address] [place] [address] Physician Cardiograph Operator Urology 11/17/21 Luh Acharya PA-C [address] [place] [address] Assigned PCP 11/27/21 12/31/21 Tierra Cancino PA-C [address] [place] [address] Assigned Surgical Provider 12/11/21 06/08/23 Haven Buckner, NICOLE [address] [place] [address] 60994 Assigned PCP 01/01/22 12/22/22 Luh Acharya PA-C [address] [place] [address] [phone] Assigned PCP 12/23/22 05/18/23 Haven Buckner, NICOLE [address] [place] [address] Assigned PCP 05/19/23 documented as of this encounter
--- OUTSIDE RECORDS SUMMARY | 2024-05-06 07:36 | XMS_ITS | Encounter Summary ---
Author Organization [place] Address [address] [facility] [place] [address] Care Team Providers Care Optimization Specialist Name Role Phone Kathy Glover MD Primary Care Provider Toma Arguello NP Unavailable [phone] Kathy Glover MD Unavailable [phone] Kathy Glover MD Unavailable +[phone] Laura Us MD Unavailable Luh AcharyaC Unavailable + [phone] Kathy Glover MD Unavailable + [phone] Luh AcharyaC Unavailable + [phone] Edward Marlow MD Unavailable [phone] [facility] Primary Care Provider Jas Bojorquez DO Unavailable +[phone] Haven Buckner CNP Unavailable +[phone] Jenise España MD Unavailable Unavailable Tierra Cancino PA-C Unavailable Luh AcharyaC Primary Care Provider + Luh Acharyace PA-C Unavailable [phone] Tierra Cancino TIM-C Unavailable BucknerHaven lofton Meaghan CNP Unavailable +- Luh Acharay Enedina DUMONT-C Unavailable + Haven Buckner HVAC SERVICE MANAGER Unavailable +- Reason for Visit * Reason Onset Date Comments Medication Request 05/23/2016 Encounter Details Date Type Department Care Team (Late st Contact Info) Description 05/23/2016 MyC Medical Advice [address] [phone] Dona Davidson, micro computer data processor Request Social History Tobacco Use Types Packs/Day [...] review and refilled Dona Davidson RN, BSN [facility] documented in this encounter Plan of Treatment [...] documented as of this encounter Care Teams Optimization Specialist Relationship Specialty Start Date End Date Kathy Glover MD [address] [place] [address] PCP - General Family Practice 06/03/15 10/05/20 Kathy Glover MD [address] [place] [address] [phone] PCP - Assigned PCP 07/25/15 11/19/[address] [phone] PCP - General 10/06/20 11/20/21 Luh Acharya PA-C [address] [place] [address]74 PCP - General Family Medicine 11/21/21 01/02/23 Toma Arguello NP [address] [address] Nurse Practitioner Nurse Practitioner Psych/Mental Health 04/11/17 Kathy Glover MD [address] [place] [address] 55548 Assigned PCP 07/25/15 12/20/19 Laura Us MD [address] [place] [address] Gastroenterology 12/20/18 Luh Acharya PA-C [address] [place] [address] 21484 Assigned PCP 12/21/19 01/17/20 Kathy Glover MD [address] [place] [address] 29622 Assigned PCP 01/18/20 06/19/20 Luh Acharya PA-C [address] [place] [address] 77709 Assigned PCP 06/20/20 03/31/21 [place] [address] Assigned Surgical Provider 07/09/20 07/31/20 Jas Bojorquez DO [address] [place] [address] [phone] Assigned PCP 04/01/21 05/21/21 Haven Buckner, NICOLE [address] [place] [address] [phone] Assigned PCP 05/22/21 11/26/21 Jenise España MD Assigned Heart and Vascular Provider 07/24/21 11/17/22 Tierra Cancino PA-C [address] [place], [place] [phone] Physician Buoy Tender Urology 11/17/21 Luh Acharya PA-C [address] [place] [address] [phone] Assigned PCP 11/27/21 12/31/21 Tierra Cancino PA-C [address] [place] [address] Assigned Surgical Provider 12/11/21 06/08/23 Haven Buckner, HVAC SERVICE MANAGER [address] [place] [address] Assigned PCP 01/01/22 12/22/22 Luh Acharya PA-C [address] [place] [address] 72700 Assigned PCP 12/23/22 05/18/23 Haven Buckner, HVAC SERVICE MANAGER [address] [place] [address] 36546 Assigned PCP 05/19/23 documented as of this encounter
== END 2024-05-06 07:30 | disposition home or self-care (01) ==
PROVIDERS: PCP Family Medicine; Visit Provider Family Medicine
DX: N39.0 Urinary tract infection, site not specified (principal)
CPT/HCPCS: 87086; 87186

== ENCOUNTER 2024-11-11 16:32 | Outpatient (CLI) | payer BC, SELFPAY | END 2024-11-11 16:33 | disposition home or self-care (01) | LOC: NFLDREF 11-13 06:42 | PROVIDERS: PCP Family Medicine; Referring Provider Family Medicine | DX: N39.0 Urinary tract infection, site not specified (principal); R10.9 Unspecified abdominal pain; N12 Tubulo-interstitial nephritis, not specified as acute or chronic | CPT/HCPCS: 87086 ==

== ENCOUNTER 2024-11-14 08:49 | Outpatient (CLI) | payer BC, SELFPAY | END 2024-11-14 08:50 | disposition home or self-care (01) | LOC: NFLDREF 08:50 | PROVIDERS: PCP Family Medicine; Visit Provider Family Medicine | DX: I10 Essential (primary) hypertension (principal); E87.6 Hypokalemia; D64.9 Anemia, unspecified | CPT/HCPCS: 80048 ==

== ENCOUNTER 2024-11-20 07:35 | Outpatient (CLI) | payer BC, SELFPAY | END 2024-11-20 07:36 | disposition home or self-care (01) | LOC: NFLDREF 11-21 07:19 | PROVIDERS: PCP Family Medicine; Referring Provider Family Medicine; Visit Provider Family Medicine | DX: E53.8 Deficiency of other specified B group vitamins (principal); E78.5 Hyperlipidemia, unspecified; I10 Essential (primary) hypertension; D64.9 Anemia, unspecified; M81.0 Age-related osteoporosis without current pathological fracture; Z86.39 Personal history of other endocrine, nutritional and metabolic disease | CPT/HCPCS: 80053; 80061; 82306; 82607 ==

== ENCOUNTER 2024-12-04 12:46 | Outpatient (CLI) | payer BC, SELFPAY ==
--- NOTE | 2024-12-04 13:52 | P.ANES_ITS ---
Anesthesia Charges Start Date/Time Anesthesia Start Date: 12/04/24 Anesthesia Start Time: 14:00 Stop Date/Time Anesthesia Stop Date: 12/04/24 Anesthesia Stop Time: 14:35 Coding CPT Codes CPT Codes: GUILLERMO LWTiki INTST NDSC NOS - 47437 ([id number]) P2 - PATIENT W/MILD SYST DISEASE, QX - WELDER/INSTALLER SVC W/ MD MED DIRECTION, QK - APPLICATIONS TRAINER 2-4 CNCRNT ANES PROC
--- NOTE | 2024-12-04 13:52 | W.ANESCHARGE ---
Anesthesia Charges Start Date/Time Anesthesia Start Date: 12/04/24 Anesthesia Start Time: 14:00 Stop Date/Time Anesthesia Stop Date: 12/04/24 Anesthesia Stop Time: 14:35 Coding CPT Codes CPT Codes: GUILLERMO LWTiki INTST NDSC NOS - 59812 ([id number]) P2 - PATIENT W/MILD SYST DISEASE, QX - PRESS PIPE INSPECTOR SVC W/ MD MED DIRECTION, QK - IMMIGRATION SERVICES OFFICER 2-4 CNCRNT ANES PROC
--- NOTE | 2024-12-04 15:04 | P.ANES_ITS ---
Anesthesia Charges Start Date/Time Anesthesia Start Date: 12/04/24 Anesthesia Start Time: 14:00 Stop Date/Time Anesthesia Stop Date: 12/04/24 Anesthesia Stop Time: 14:35 Coding CPT Codes CPT Codes: GUILLERMO LWR INTST NDSC NOS - 41128 ([id number]) P2 - PATIENT W/MILD SYST DISEASE, QK - SIDE GLUER 2-4 CNCRNT ANES PROC, QX - WATCH PARTS GRINDER SVC W/ MD MED DIRECTION
--- NOTE | 2024-12-04 15:04 | W.ANESCHARGE ---
Anesthesia Charges Start Date/Time Anesthesia Start Date: 12/04/24 Anesthesia Start Time: 14:00 Stop Date/Time Anesthesia Stop Date: 12/04/24 Anesthesia Stop Time: 14:35 Coding CPT Codes CPT Codes: GUILLERMO LWR INTST NDSC NOS - 99403 ([id number]) P2 - PATIENT W/MILD SYST DISEASE, QK - SNOWMOBILE MECHANIC 2-4 CNCRNT ANES PROC, QX - TOWER AIR TRAFFIC CONTROL SPECIALIST SVC W/ MD MED DIRECTION
== END 2024-12-04 12:47 | disposition home or self-care (01) ==
LOC: OP CLINIC 12:47
PROVIDERS: PCP Family Medicine; Visit Provider Surgery
DX: Z12.11 Encounter for screening for malignant neoplasm of colon (principal); D12.3 Benign neoplasm of transverse colon; D12.5 Benign neoplasm of sigmoid colon; K63.89 Other specified diseases of intestine; K57.30 Diverticulosis of large intestine without perforation or abscess without bleeding; Z86.0100 Personal history of colon polyps, unspecified
CPT/HCPCS: 00811; 45380; 45385; 88305; J2704

== ENCOUNTER 2025-03-30 17:42 | Outpatient (CLI) | payer BC, SELFPAY | END 2025-03-30 17:43 | disposition home or self-care (01) | LOC: NFLDREF 04-01 15:31 | PROVIDERS: PCP Family Medicine; Referring Provider Family Medicine | DX: N30.90 Cystitis, unspecified without hematuria (principal); B96.20 Unspecified Escherichia coli [E. coli] as the cause of diseases classified elsewhere | CPT/HCPCS: 87086 ==

== ENCOUNTER 2025-04-02 11:04 | Emergency (ER) | payer BC, SELFPAY ==
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
--- OUTSIDE RECORDS SUMMARY | 2021-12-09 23:30 | XMS_ITS | Continuity of Care Document ---
Author Organization [facility] Address [address] [address] [place] [address] Phone Care Team Providers Care M1 Armor Crewman Name Role Phone No Information Unavailable Unavailable [...] Encounter [facility] [address] [address], [place], [id number], [place] tel:[phone] No Information Mar-2 6-202 2 No Information [facility], [address] [address], [place], [id number], [place] tel:[phone] [facility] No Information 0 Tamela Moffett. [address] [facility], [address] [address], [place], [place], [id number], [place]. tel:[phone] Referring Provider: Betina Knapp, [address] [address], [place], [address]. tel:[phone] Offic/outpt E&m Estab Low-mod [facility], [address] [address], [place], [id number], [place] tel:[phone] [facility] GI Symptoms or Concerns (chief complaint) DiarrheaDieta ry counseling and surveillanceE ssential (primary) hypertension 6 [place] [facility] Shivani. [address] [facility], [address], [id number], [place]. tel:[phone] Referring Provider: [place], [address] [place] [address], [address]. tel:[phone] [facility], [address] [address], [place], [id number], [place] tel:[phone] [facility] Diverticulosi s of colonDivertic ulosis Of Colon 4 Tamela Moffett. [address] [facility], [address], [id number], [place]. tel:[phone] Referring Provider: Referral Self, USE FOR SELF REFERRALS. Offic/outpt E&m Estab Mod-hi [address] [facility], [address] [address], [place], [id number], [place] tel:[phone] [facility] GI Symptoms or Concerns (chief complaint) DiarrheaDieta ry Surveil/couns el 6201 4 Earle [place]. [address] [facility], [address] [address], [place], [place], [id number], [place]. tel:[phone] Alessia Wong CNP. tel:[phone] ng Provider: Alessia Wong CNP M, [address], [place], [address]. tel:[phone] [facility], [address] [address], [place], [place], [id number], [place] tel:[phone] [facility] Gastroesophag eal RefluxGastroe sophageal Reflux 3 Katie Mark. [address] [facility], [facility] [address], [place], [id number], [place]. tel:[phone] Init Inpt Cons New/est Mod-hi [facility], [address] [address], [place], [place], [id number], [place] tel:[phone] No Information No Information Referring Provider: Gerson Dias, [address] [place], [address]. tel:[phone] Family History Family Member Type Diagnosis Age [...] free, 3 years or older Fluarix Quad [id number] administered Source: Other Provid er influenza virus [...] Registry Payers Payer name Insurance type Covered alliance party ID Authoriza tion(s) No Information Social History [...]
--- OUTSIDE RECORDS SUMMARY | 2021-12-09 23:30 | XMS_ITS | Continuity of Care Document ---
Author Organization [facility] Address [address] [address] [place] [address] Phone Care Team Providers Care Dumpcart Driver Name Role Phone No Information Unavailable Unavailable [...] Encounter [facility] [address] [address], [place], [id number], [place] tel:[phone] No Information Mar-2 6-202 2 No Information [facility], [address] [address], [place], [id number], [place] tel:[phone] [facility] No Information 0 Tamela Moffett. [address] [facility], [address] [address], [place], [place], [id number], [place]. tel:[phone] Referring Provider: Betina Knapp, [address] [address], [place], [address]. tel:[phone] Offic/outpt E&m Estab Low-mod [facility], [address] [address], [place], [id number], [place] tel:[phone] [facility] GI Symptoms or Concerns (chief complaint) DiarrheaDieta ry counseling and surveillanceE ssential (primary) hypertension 6 [place] [facility] Shivani. [address] [facility], [address], [id number], [place]. tel:[phone] Referring Provider: [place], [address] [place] [address], [address]. tel:[phone] [facility], [address] [address], [place], [id number], [place] tel:[phone] [facility] Diverticulosi s of colonDivertic ulosis Of Colon 4 Tamela Moffett. [address] [facility], [address], [id number], [place]. tel:[phone] Referring Provider: Referral Self, USE FOR SELF REFERRALS. Offic/outpt E&m Estab Mod-hi 2 [facility], [address] [address], [place], [id number], [place] tel:[phone] [facility] GI Symptoms or Concerns (chief complaint) DiarrheaDieta ry Surveil/couns el 6201 4 Earle [place]. [address] [facility], [address] [address], [place], [place], [id number], [place]. tel:[phone] Alessia Wong CNP. tel:[phone] ng Provider: Alessia Wong CNP M, [address], [place], [address]. tel:[phone] [facility], [address] [address], [place], [place], [id number], [place] tel:[phone] [facility] Gastroesophag eal RefluxGastroe sophageal Reflux 3 Katie Mark. [address] [facility], [facility] [address], [place], [id number], [place]. tel:[phone] Init Inpt Cons New/est Mod-hi [facility], [address] [address], [place], [place], [id number], [place] tel:[phone] No Information No Information Referring Provider: Gerson Dias, [address] [place], [address]. tel:[phone] Family History Family Member Type Diagnosis Age [...] free, 3 years or older Fluarix Quad [id number] administered Source: Other Provid er influenza virus [...] Registry Payers Payer name Insurance type Covered green party ID Authoriza tion(s) No Information Social [...]
--- OUTSIDE RECORDS SUMMARY | 2025-03-31 06:32 | XMS_ITS | Continuity of Care Document ---
Author Organization [facility] christine Address [address] [place] [address] Phone Care Team Providers Care Adobe Flex Developer Name Role Phone Will MD VILLARREAL, George [...] route every day 1.00 tablet - Active pravastatin 20 mg tablet take 1 tablet b y oral route every day 20 MG - Active diclofenac sodium 75 mg tablet,delayed release take 1 tablet by oral route 2 times every day 75 MG - Active Procedures Procedure Date OFFICE [...] Diagnoses Date Provider Providers Copied on Encounter [facility], [address] [place] [address], [id number] , [place] tel:[phone] [facility] No Information 5 Evelio Vazquez. [address] [place] [address], [id number], [place]. tel:[phone] OFFICE VISIT, [facility] TELEMEDICINE [facility], [address] [place] [address], [id number] , [place] tel:[phone] [facility] low back pain (chief complaint) Chronic pain syndromePostlami nectomy syndrome, not elsewhere classifiedMyalgi a, other siteLong term (current) use of opiate analgesicPain in left hipPain in right hip Nov-0 5 Fernando Oliver. [address], [address], [place], [place], [id number], [place]. tel:[phone] Referring Provider: George Zurita, [address] [facility] [place], [address] . tel:[phone] OFFICE/OUTPAT IENT VISIT, [facility], [address] [place] [address], [id number] , [place] tel:[phone] [facility] low back pain (chief complaint) Chronic pain syndromePostlami nectomy syndrome, not elsewhere classifiedMyalgi a, other siteLong term (current) use of opiate analgesic 4 Jin Summers. [address], [place], [place], [id number], [place]. tel:[phone] Referring Provider: George Zurita, [address] [place] [address] [place], [address] . tel:[phone] OFFICE/OUTPAT IENT VISIT, [facility], [address] [place] [address], [id number] , [place] tel:[phone] [facility] low back pain (chief complaint) Chronic pain syndromePostlami nectomy syndrome, not elsewhere classifiedMyalgi a, other siteLong term (current) use of opiate analgesicBody mass index [BMI]30.0-30.9, adultEncounter for therapeutic drug level monitoring 4 Andrew Gallardo. [address] [place] [address], [id number], [place]. tel:[phone] Referring Provider: George Zurita, [address] [place] [address] [place], [address] . tel:[phone] [facility], [address] [place] [address], [id number] , [place] tel:[phone] [facility] No Information 4 Jacquelyn Rhoades. [place], [address] [place], [address], [place]. tel:[phone] OFFICE/OUTPAT IENT VISIT, [facility], [address] [place] [address], [id number] , [place] tel:[phone] [facility] low back pain (chief complaint) Chronic pain syndromePostlami nectomy syndrome, not elsewhere classifiedMyalgi a, other siteLong term (current) use of opiate analgesic 4 Leatha Dinero. [address], [address], [place], [place], [id number], [place]. tel:[phone] Referring Provider: George Zurita, [address] [facility] [place], [address] . tel:[phone] OFFICE/OUTPAT IENT VISIT, [facility], [address] [place] [address], [id number] , [place] tel: [phone] [facility] low back pain (chief complaint) Chronic pain syndromePostlami nectomy syndrome, not elsewhere classifiedMyalgi a, other siteLong term (current) use of opiate analgesicEncount er for therapeutic drug level monitoring 4 Idcholo Summers. [address], [place], [place], [id number], [place]. [phone] Referring Provider: George Zurita, [address] [place] [address] [place], [address] . tel:[phone] OFFICE/OUTPAT IENT VISIT, [facility], [address] [place] [address], [id number] , [place] tel: [phone] [facility] bilateral hip pain (chief complaint) Chronic migraine without aura, intractable, without status migrainosusChron ic pain syndromeTrochant jatin bursitis, right hipMyalgia, other sitePostlaminect asuncion syndrome, not elsewhere classifiedLong term (current) use of opiate analgesicEncount er for therapeutic drug level monitoring 3 Jacquelyn Rhoades. [place], [address] [place], [address], [place]. [phone] Referring Provider: George Zurita, [address] [place] [address] [place], [address] . tel:[phone] [facility], [address] [place] [address], [id number] , [place] tel:[phone] [facility] No Information 3 Jacquelyn Rhoades. [place], [address] [place], [address], [place]. [phone] Referring Provider: George Zurita, [address] [place] [address] [place], [address] . tel:[phone] [facility], [address] [facility] [place], [id number] , [place] tel:[phone] [facility] No Information 3 Vanessa Harrison. [address] [facility] [place], [place], [id number], [place]. [phone] OFFICE VISIT, EST TELEMEDICINE [facility], [address] [place] [address] [place], [place], [id number] , [place] tel:[phone] [facility] bilateral hip pain (chief complaint) Chronic migraine without aura, intractable, without status migrainosusChron ic pain syndromeTrochant jatin bursitis, right hipMyalgia, other sitePostlaminect asuncion syndrome, not elsewhere classifiedLong term (current) use of opiate analgesic 3 Jacquelyn Hutson [place], [address] [place], [address], [place]. tel:[phone] Referring Provider: George Zurita, [address] [place] [address] [place], [address] . tel:[phone] OFFICE VISIT, EST TELEMEDICINE [facility], [address] [place] [address], [id number] , [place] tel:[phone] [facility] bilateral hip pain (chief complaint) Chronic migraine without aura, intractable, without status migrainosusChron ic pain syndromeTrochant jatin bursitis, right hipMyalgia, other sitePostlaminect asuncion syndrome, not elsewhere classifiedLong term (current) use of opiate analgesic 3 Jacquelyn Hutson [place], [address] [place], [address], [place]. tel:[phone] Referring Provider: George Zurita, [address] [place] [address] [place], [address] . tel:[phone] [facility], [address] [place] [address], [id number] , [place] tel:[phone] [facility] No Information 3 Jacquelyn Hutson [place], [address], [place], [facility], [place]. tel:[phone] OFFICE/OUTPAT IENT VISIT, [facility], [address] [place] [address], [id number] , [place] [phone] [facility] bilateral hip pain (chief complaint) Chronic migraine without aura, intractable, without status migrainosusChron ic pain syndromeTrochant jatin bursitis, right hipMyalgia, other sitePostlaminect asuncion syndrome, not elsewhere classifiedLong term (current) use of opiate analgesicEncount er for therapeutic drug level monitoringEncoun ter for screening for other disorder 3 Jacquelyn Hutson [place], [address], [place], [facility], [place]. tel:[phone] Referring Provider: George Zurita, [address] [place], [place] [address], [address] . tel:[phone] OFFICE VISIT, [facility], [address] [place] [address], [id number] , [place] tel:[phone] [facility] Hip pain (chief complaint) Chronic migraine without aura, intractable, without status migrainosusChron ic pain syndromeTrochant jatin bursitis, right hipMyalgia, other sitePostlaminect asuncion syndrome, not elsewhere classifiedLong term (current) use of opiate analgesic 2 Tigre Velasquez. [address], [place], [place], [id number], [place]. tel:[phone] Referring Provider: George Zurita, [address] [place], [place] [address], [address] . tel:[phone] OFFICE VISIT, [facility], [address] [place] [address], [id number] , [place] tel:[phone] [facility] bilateral hip pain (chief complaint) Chronic migraine without aura, intractable, without status migrainosusChron ic pain syndromeTrochant jatin bursitis, right hipMyalgia, other sitePostlaminect asuncion syndrome, not elsewhere classifiedLong term (current) use of opiate analgesic Nov-1 0- 2 Tigre Velasquez. [address], [place], [place], [id number], [place]. tel:[phone] Referring Provider: George Zruita, [address] [place], [place] [address], [address] . tel:[phone] [facility], [address] [place] [address], [id number] , [place] tel:[phone] [facility] No Information Sep-0 2 Jacquelyn [place], [address] [place], [address], [place]. [phone] OFFICE/OUTPAT IENT VISIT, [facility], [address] [place] [address], [id number] , [place] tel:[phone] [facility] bilateral hip pain (chief complaint) Chronic migraine without aura, intractable, without status migrainosusChron ic pain syndromeTrochant jatin bursitis, right hipMyalgia, other sitePostlaminect asuncion syndrome, not elsewhere classifiedLong term (current) use of opiate analgesic Sep-0 2 Jacquelyn [place], [address] [facility], [place], [address], [place]. [phone] Referring Provider: George Zurita, [address] [facility] [place], [address] . tel:[phone] OFFICE VISIT, EST TELEMEDICINE [facility], [address] [place] [address], [id number] , [place] tel:[phone] [facility] Hip Pain (chief complaint) Chronic migraine without aura, intractable, without status migrainosusChron ic pain syndromeTrochant jatin bursitis, right hipMyalgia, other sitePostlaminect asuncion syndrome, not elsewhere classifiedLong term (current) use of opiate analgesic Mar-2 2 Jacquelyn Suggs, [address] [place], [address], [place]. tel:[phone] [facility], [address] [place] [address], [id number] , [place] tel: [phone] [facility] Chronic migraine without aura, intractable, without status migrainosus 2 Valladaresgreg [place], [address] [facility] [facility], [place], [address], [place]. tel: [phone] Referring Provider: George Zurita, [address] [place], [place] [address], [address] . tel:[phone] OFFICE VISIT, [facility] TELEMEDICINE [facility], [address] [place] [address], [id number] , [place] tel: [phone] [facility] Hip Pain (chief complaint) Chronic pain syndromePostlami nectomy syndrome, not elsewhere classifiedTrocha nteric bursitis, right hipLong term (current) use of opiate analgesicChronic migraine without aura, intractable, without status migrainosusMyalg ia, other site 2 Valladaresgreg [place], [address] [facility], [place], [address], [place]. tel:[phone] OFFICE VISIT, EST TELEMEDICINE [facility], [address] [place] [address], [id number] , [place] tel: [phone] [facility] bilateral hip pain (chief complaint) Chronic pain syndromePostlami nectomy syndrome, not elsewhere classifiedTrocha nteric bursitis, right hipLong term (current) use of opiate analgesicChronic migraine without aura, intractable, without status migrainosusMyalg ia, other site 1 Valladaresgreg [place], [address], [place], [address], [place]. tel:[phone] [facility], [address] [place] [address], [id number] , [place] tel: [phone] [facility] Chronic migraine without aura, intractable, without status migrainosus 1 Jacquelyn Suggs, [address] [place], [address], [place]. tel:[phone] Referring Provider: George Zurita, [address] [place] [address] [place], [address] . tel:[phone] OFFICE VISIT, [facility] TELEMEDICINE [facility], [address] [place] [address], [id number] , [place] tel:[phone] [facility] bilateral hip pain (chief complaint) Chronic pain syndromePostlami nectomy syndrome, not elsewhere classifiedTrocha nteric bursitis, right hipLong term (current) use of opiate analgesicChronic migraine without aura, intractable, without status migrainosusMyalg ia, other site 1 Valladaresgreg Rhoades. [place], [address] [place], [address], [place]. tel:[phone] OFFICE VISIT, EST [facility], [address] [place] [address], [id number] , [place] tel:[phone] [facility] Leg Pain (chief complaint) Chronic pain syndromePostlami nectomy syndrome, not elsewhere classifiedTrocha nteric bursitis, right hipLong term (current) use of opiate analgesicChronic migraine without aura, intractable, without status migrainosusMyalg ia, other site 1 Jacquelyn Rhoades. [place], [address] [place], [address], [place]. [phone] Referring Provider: George Zurita, [address] [place], [place] [address], [address] . tel:[phone] [facility], [address] [place] [address], [id number] , [place] [phone] [facility] Postlaminectomy syndrome, not elsewhere classified 1 Jacquelyn Hutson [place], [address] [place], [address], [place]. [phone] Referring Provider: George Zurita, [address] [place] [address] [place], [address] . tel:[phone] OFFICE/OUTPAT IENT VISIT, [facility], [address] [place] [address], [id number] , [place] [phone] [facility] right leg pain (chief complaint) Postlaminectomy syndrome, not elsewhere classifiedChroni c pain syndromeTrochant jatin bursitis, right hipLong term (current) use of opiate analgesicChronic migraine without aura, intractable, without status migrainosusMyalg ia, other site 1 Jacquelyn Hutson [place], [address] [place], [address], [place]. tel:[phone] Referring Provider: George Zurita, [address] [place], [place] [address], [address] . tel:[phone] [facility], [address] [place] [address], [id number] , [place] [phone] [facility] Chronic migraine without aura, intractable, without status migrainosus 1 Jacquelyn Hutson [place], [address] [place], [address], [place]. tel:[phone] Referring Provider: George Zurita, [address] [place], [place] [address], [address] . tel:[phone] OFFICE VISIT, [facility] TELEMEDICINE [facility], [address] [place], [place], [id number] , [place] [phone] [facility] Leg Pain (chief complaint) Postlaminectomy syndrome, not elsewhere classifiedChroni c pain syndromeTrochant jatin bursitis, right hipLong term (current) use of opiate analgesicChronic migraine without aura, intractable, without status migrainosusMyalg ia, other site 1 Jacquelyn Hutson [place], [address] [place], [address], [place]. tel:[phone] Referring Provider: George Zurita, [address] [facility] [place], [address] . tel:[phone] OFFICE/OUTPAT IENT VISIT, [facility], [address] [place] [address], [id number] , [place] tel: [phone] [facility] Leg Pain (chief complaint) Postlaminectomy syndrome, not elsewhere classifiedChroni c pain syndromeTrochant jatin bursitis, right hipLong term (current) use of opiate analgesicChronic migraine without aura, intractable, without status migrainosusMyalg ia, other site 1 Valladares Jf. [place], [address] [place], [address], [place]. tel:[phone] Referring Provider: George Zurita, [address] [place], [place] [address], [address] . tel:[phone] OFFICE VISIT, [facility] TELEMEDICINE [facility], [address] [place] [address], [id number] , [place] tel: [phone] [facility] Leg Pain (chief complaint) Chronic migraine without aura, intractable, without status migrainosusMyalg ia, other sitePostlaminect asuncion syndrome, not elsewhere classifiedChroni c pain syndromeTrochant jatin bursitis, right hipLong term (current) use of opiate analgesic Dec- 1 Valladares Jf. [place], [address] [place], [address], [place]. tel:[phone] Referring Provider: George Zurita, [address] [place], [place] [address], [address] . tel:[phone] [facility], [address] [place] [address], [id number] , [place] [phone] [facility] Chronic migraine without aura, intractable, without status migrainosus Apr-0 1 Valladares Jf. [place], [address] [place], [address], [place]. tel:[phone] Referring Provider: George Zurita, [address] [place] [address] [place], [address] . tel:[phone] OFFICE VISIT, [facility], [address] [place], [place], [id number] , [place] tel:[phone] [facility] Leg Pain (chief complaint) Chronic migraine without aura, intractable, without status migrainosusMyalg ia, other sitePostlaminect asuncion syndrome, not elsewhere classifiedTrocha nteric bursitis, right hipChronic pain syndromeLong term (current) use of opiate analgesic 1 Jacquelyn Hutson [place], [address] [place], [address], [place]. tel:[phone] Referring Provider: George Zurita, [address] [place], [place] [address], [address] . tel:[phone] OFFICE VISIT, [facility], [address] [place] [address], [id number] , [place] tel:[phone] [facility] Leg Pain (chief complaint) Chronic migraine without aura, intractable, without status migrainosusMyalg ia, other sitePostlaminect asuncion syndrome, not elsewhere classifiedTrocha nteric bursitis, right hipChronic pain syndromeLong term (current) use of opiate analgesic 1 Jacquelyn [place], [address] [place], [address], [place]. tel:[phone] Referring Provider: George Zurita, [address] [facility] [place], [address] . tel:[phone] OFFICE/OUTPAT IENT VISIT, [facility], [address] [place] [address], [id number] , [place] [phone] [facility] Leg Pain (chief complaint) Chronic migraine without aura, intractable, without status migrainosusMyalg ia, other sitePostlaminect asuncion syndrome, not elsewhere classifiedTrocha nteric bursitis, right hipChronic pain syndromeLong term (current) use of opiate analgesic 1 Jacquelyn Hutson [place], [address] [place], [address], [place]. tel:[phone] Referring Provider: George Zurita, [address] [place] [address] [place], [address] . tel:[phone] OFFICE VISIT, [facility] TELEMEDIC[facility], [address] [place] [address], [id number] , [place] [phone] [facility] Leg Pain (chief complaint) Chronic migraine without aura, intractable, without status migrainosusMyalg ia, other sitePostlaminect asuncion syndrome, not elsewhere classifiedTrocha nteric bursitis, right hipChronic pain syndromeLong term (current) use of opiate analgesic 1 Jacquelyn Rhoades. [place], [address] [place], [address], [place]. tel:[phone] Referring Provider: George Zurita, [address] [place] [address] [place], [address] . tel:[phone] [facility], [address] [place] [address], [id number] , [place] [phone] [facility] No Information 1 Jacquelyn Rhoades. [place], [address] [place], [address], [place]. tel:[phone] Referring Provider: George Zurita, [address] [place] [address] [place], [address] . tel:[phone] [facility], [address] [place] [address], [id number] , [place] [phone] [facility] Chronic migraine without aura, intractable, without status migrainosus 1 Jacquelyn Hutson [place], [address] [place], [address], [place]. tel:[phone] Referring Provider: George Zurita, [address] [place] [address] [place], [address] . tel:[phone] OFFICE VISIT, EST TELEMEDICINE [facility], [address] [place], [place], [id number] , [place] tel: [phone] [facility] [place] Leg Pain (chief complaint) Myalgia, other siteChronic migraine without aura, intractable, without status migrainosusPostl aminectomy syndrome, not elsewhere classifiedChroni c pain syndromeTrochant jatin bursitis, right hipLong term (current) use of opiate analgesic Dec-3 0- 0 Jacquelyn [place], [address] [place], [address], [place]. [phone] Referring Provider: George Zurita, [address] [place], [place] [address], [address] . tel:[phone] OFFICE VISIT, [facility], [address] [place] [address], [id number] , [place] tel:[phone] [facility] [place] Leg Pain (chief complaint) Myalgia, other siteChronic migraine without aura, intractable, without status migrainosusPostl aminectomy syndrome, not elsewhere classifiedChroni c pain syndromeTrochant jatin bursitis, right hipLong term (current) use of opiate analgesic Nov-2 0 0 Jacquelyn Suggs, [address] [place], [address], [place]. [phone] Referring Provider: George Zurita, [address] [place], [place] [address], [address] . tel:[phone] OFFICE VISIT, EST TELEMEDICINE [facility], [address] [place] [address], [id number] , [place] tel:[phone] [facility] Leg Pain (chief complaint) Chronic migraine without aura, intractable, without status migrainosusPostl aminectomy syndrome, not elsewhere classifiedChroni c pain syndromeTrochant jatin bursitis, right hipLong term (current) use of opiate analgesicMyalgia , other site Oct- 0 Jacquelyn Suggs, [address] [place], [address], [place]. tel:[phone] Referring Provider: George Zurita, [address] [place], [place] [address], [address] . tel:[phone] [facility], [address] [place] [address], [id number] , [place] tel:[phone] [facility] Chronic migraine without aura, intractable, without status migrainosus 0 Jacquelyn [place], [address] [place], [address], [place]. tel:[phone] Referring Provider: George Zurita, [address] [place], [place] [address], [address] . tel:[phone] OFFICE VISIT, [facility] TELE[facility]ICINE [facility], [address] [place] [address], [id number] , [place] [phone] [facility] Leg Pain (chief complaint) Chronic migraine w/o aura, intractable, w/o stat migrPostlaminect asuncion syndrome, not elsewhere classifiedChroni c pain syndromeTrochant jatin bursitis, right hipLong term (current) use of opiate analgesicMyalgia , other site 0 Jacquelyn Suggs, [address] [place], [address], [place]. tel:[phone] Referring Provider: George Zurita, [address] [place], [place] [address], [address] . tel:[phone] OFFICE/OUTPAT IENT VISIT, [facility], [address] [place] [address], [id number] , [place] [phone] [facility] Leg Pain (chief complaint) Chronic migraine w/o aura, intractable, w/o stat migrPostlaminect asuncion syndrome, not elsewhere classifiedChroni c pain syndromeTrochant jatin bursitis, right hipLong term (current) use of opiate analgesicMyalgia , other site 0 Jacquelyn [place], [address] [place], [address], [place]. tel:[phone] Referring Provider: Goerge Zurita, [address] [place], [place] [address], [address] . tel:[phone] OFFICE VISIT, [facility] TELE[facility], [address] [place] [address], [id number] , [place] [phone] [facility] Leg Pain (chief complaint) Chronic migraine w/o aura, intractable, w/o stat migrPostlaminect asuncion syndrome, not elsewhere classifiedChroni c pain syndromeTrochant jatin bursitis, right hipLong term (current) use of opiate analgesic Apr- 0 Valladares Dan. [place], [address] [place], [address], [place]. tel:[phone] Referring Provider: George Zurita, [address] [place], [place] [address], [address] . tel:[phone] OFFICE VISIT, [facility]LE[facility], [address] [place] [address], [id number] , [place] [phone] [facility] (chief complaint) Chronic migraine w/o aura, intractable, w/o stat migrPostlaminect asuncion syndrome, not elsewhere classifiedChroni c pain syndromeTrochant jatin bursitis, right hipLong term (current) use of opiate analgesic 0 Jacquelyn [place], [address] [place], [address], [place]. tel:[phone] Referring Provider: George Zurita, [address] [place], [place] [address], [address] . tel:[phone] [facility], [address] [place] [address], [id number] , [place] tel:[phone] [facility] Chronic migraine w/o aura, intractable, w/o stat migr Dell- 0 Valladaresgreg Hutson [place], [address] [place], [address], [place]. tel:[phone] Referring Provider: George Zurita, [address] [place] [address] [facility] [place], [address] . tel:[phone] OFFICE/OUTPAT IENT VISIT, [facility], [address] [place] [address], [id number] , tel:[phone] [facility] Leg Pain (chief complaint) Postlaminectomy syndrome, not elsewhere classifiedTrocha nteric bursitis, right hipChronic migraine w/o aura, intractable, w/o stat migrLong term (current) use of opiate analgesicChronic pain syndromeMyalgia, other site 0 Jacquelyn [place], [address] [place], [address], [place]. tel:[phone] Referring Provider: George Zurita, [address] [place] [address] [place], [address] . tel:[phone] OFFICE VISIT, [facility], [address] [place] [address], [id number] , [place] tel:[phone] [facility] Leg Pain (chief complaint) headache (chief complaint) Postlaminectomy syndrome, not elsewhere classifiedTrocha nteric bursitis, right hipChronic migraine w/o aura, intractable, w/o stat migrLong term (current) use of opiate analgesic 0 Jacquelyn Suggs, [address] [place], [address], [place]. tel:[phone] Referring Provider: George Zurita, [address] [place] [address] [facility] [place], [address] . tel:[phone] OFFICE VISIT, [facility], [address] [place] [address], [id number] , [place] tel:[phone] [facility] Leg Pain (chief complaint) Postlaminectomy syndrome, not elsewhere classifiedTrocha nteric bursitis, right hipChronic migraine w/o aura, intractable, w/o stat migrLong term (current) use of opiate analgesic 0 Jacquelyn Suggs, [address] [facility], [place], [address], [place]. [phone] Referring Provider: George Zurita, [address] [place] [address] [place], [address] . tel:[phone] OFFICE VISIT, [facility], [address] [place] [address], [id number] , [place] tel:[phone] [facility] Leg Pain (chief complaint) Postlaminectomy syndrome, not elsewhere classifiedTrocha nteric bursitis, right hipChronic migraine w/o aura, intractable, w/o stat migrLong term (current) use of opiate analgesic Mar-3 0- 0 Jacquelyn [place], [address] [place], [address], [place]. tel:[phone] Referring Provider: George Zurita, [address] [place] [address] [place], [address] . tel:[phone] [facility], [address] [place] [address], [id number] , [place] tel:[phone] [facility] No Information 0 Glenys Mcfarlane. [facility], [address] [facility] [address] [facility] [address], [place], [address], [place]. tel:[phone] Referring Provider: George Zurita, [address] [place] [address] [place], [address] . tel:[phone] OFFICE/OUTPAT IENT VISIT, [facility], [address] [place] [address], [id number] , [place] [phone] [facility] Leg Pain (chief complaint) emt intermediate (current) use of opiate analgesicPostlam inectomy syndrome, not elsewhere classifiedTrocha nteric bursitis, right hipChronic migraine w/o aura, intractable, w/o stat migr Feb-0 0 Jacquelyn [place], [address] [facility], [place], [address], [place]. tel:[phone] Referring Provider: George Zurita, [address] [place] [address] [place], [address] . tel:[phone] [facility], [address] [place] [address], [id number] , tel:[phone] [facility] Chronic migraine w/o aura, intractable, w/o stat migr Dec-3 0-201 9 Valladares JfKodi [place], [address], [place], [facility], [place]. [phone] Referring Provider: George Zurita, [address] [place] [address] [place], [address] . tel:[phone] OFFICE/OUTPAT IENT VISIT, [facility], [address] [place] [address], [id number] , [place] tel: [phone] [facility] Leg Pain (chief complaint) custodial (current) use of opiate analgesicPostlam inectomy syndrome, not elsewhere classifiedTrocha nteric bursitis, right hipChronic migraine w/o aura, intractable, w/o stat migr Dec-0 2-201 9 Valladares Jf. [place], [address], [place], [facility], [place]. [phone] Referring Provider: George Zurita, [address] [place] [address] [place], [address] . tel:[phone] OFFICE/OUTPAT IENT VISIT, [facility], [address] [place] [address], [id number] , [place] tel:[phone] [facility] Leg Pain (chief complaint) custodial (current) use of opiate analgesicPostlam inectomy syndrome, not elsewhere classifiedTrocha nteric bursitis, right hipChronic migraine w/o aura, intractable, w/o stat migr Nov-0 6-201 9 Valladares Jf. [place], [address], [place], [facility], [place]. [phone] Referring Provider: George Zurita, [address] [place] [address] [place], [address] . tel:[phone] OFFICE/OUTPAT IENT VISIT, [facility], [address] [place] [address] [place], [id number] , [place] tel:[phone] [facility] Leg Pain (chief complaint) Chronic pain syndromeChronic migraine w/o aura, intractable, w/o stat migrTrochanteric bursitis, right hipPostlaminecto my syndrome, not elsewhere classifiedLong term (current) use of opiate analgesic Oct- 0-201 9 Valladares Jf. [place], [address] [place], [address], [place]. [phone] Referring Provider: George Zurita, [address] [place] [address] [place], [address] . [phone] [facility], [address] [place] [address], [id number] , [place] tel:[phone] [facility] Chronic migraine w/o aura, intractable, w/o stat migr Sep-2 3-201 9 Valladares Jf. [place], [address] [place], [address], [place]. tel:[phone] Referring Provider: George Zurita, [address] [place] [address] [place], [address] . [phone] [facility], [address] [place] [address], [id number] , [place] [phone] [facility] No Information Sep-0 9-201 9 Glenys Mcfarlane. [facility], [address] [facility] [address] [facility] [address], [place], [address], [place]. tel:[phone] Referring Provider: George Zurita, [address] [place] [address] [place], [address] . tel:[phone] OFFICE/OUTPAT IENT VISIT, [facility], [address] [place] [address] [place], [id number] , [place] tel:[phone] [facility] [place] Leg Pain (chief complaint) Chronic pain syndromeTrochant jatin bursitis, right hipChronic migraine w/o aura, intractable, w/o stat migrPostlaminect asuncion syndrome, not elsewhere classifiedLong term (current) use of opiate analgesic 9 Jacquelyn Rhoades. [place], [address] [facility], [place], [address], [place]. tel:[phone] Referring Provider: George Zurita, [address] [place], [address] . tel:[phone] [facility], [address] [place], [place], [id number] , [place] [phone] [facility] Leg Pain (chief complaint) Chronic pain syndromeTrochant jatin bursitis, right hipChronic migraine w/o aura, intractable, w/o stat migrPostlaminect asuncion syndrome, not elsewhere classifiedEncoun ter for therapeutic drug level monitoringLong term (current) use of opiate analgesic 9 Veronica Denys. [employer] [facility], [address] [facility] [address], [place], [address], [place]. tel:[phone] Referring Provider: Tan Chapa, [facility] [address], [address], [place], [address]. tel:[phone] Family History Family Member Type Diagnosis Age At Onset Father Problem (finding) back pain Payers Payer name Insurance type Covered democrat ID Maegan osborn(s) [facility] [id number] Social History Type Description Quantity Date Captured Comments Alcohol Use Details Unknown Caffeine Use Details Unknown Tobacco Use Status Smoking Status No Information Sex Female Chief Complaint And Reason For Visit No Information Reason For Referral Reason For Referral No Information Plan Of Treatment Date Type Action Status Goal UDT. Due on due Goal Order Annual PT. Due on due Goal ORDNANCE MECHANIC Scanned. Due on due Goal OARS. Due on due Goal ALT (SGPT). Due on due Goal AST (SGOT). Due on due Goal Creatinine. Due on due Goal CATCHER HELPER Paperwork. Due on due Goal Weight. Due [...] due Goal UDT. Due on due Goal ORDNANCE MECHANIC Scanned. Due on due Goal OARS. Due on due Goal Creatinine. Due on due Goal AST (SGOT). Due on due Goal ALT (SGPT). Due on due Goal CATCHER HELPER Paperwork. Due on due Goal Order [...] Tobacco Use. Due on 022 due Goal Update Social Hi story. Due on due Goal PHQ-9. Due on du e Goal CT-Colonography. Due on due Goal Zoster vaccine ( 1st). Due on due Goal Unhealthy drug u se screening. Due on due Goal CATCHER HELPER Paperwork. Due on due Goal AST (SGOT). Due on due Goal Creatinine. Due on due Goal OARS. Due on due Goal UDT. Due on due Goal Order Annual PT. Due on due Goal ALT (SGPT). Due on due Goal ORDNANCE MECHANIC Scanned. Due on due Goal Height. Due on d ue Goal Medication Recon ciliation. Due on due Goal FIT. Due on due Goal Zoster vaccine ( 1st). Due on due Goal Unhealthy drug u [...] Goal Lipid panel. Due on due Goal Weight. Due on d ue Goal Creatinine. Due on due Goal ORDNANCE MECHANIC Scanned. Due on due Goal UDT. Due on due Goal Order Annual PT. Due on due Goal OARS. Due on due Goal AST (SGOT). Due on due Goal CATCHER HELPER Paperwork. Due on due Goal ALT (SGPT). Due on due Goal Medication Recon ciliation. Due on due Goal Hepatitis C scre ening. Due on due Goal Review Allergy L ist. Due on due Goal Unhealthy drug u se screening. Due on due Goal Zoster vaccine ( 1st). Due on due Goal Height. Due on d ue Goal FIT. Due on due Goal Weight. Due on d ue Goal Lipid panel. Due on due Goal Tobacco Use. Due on due Goal Update Social Hi story. Due on due Goal CT-Colonography. Due on due Goal FIT-DNA. Due on due Goal PHQ-9. Due on du e Goal Lifestyle educat ion regarding diet completed Goal Tobacco cessation counseling completed Goal OARS. Due on due Goal ALT (SGPT). Due on due Goal Creatinine. Due on due Goal UDT. Due on due Goal Order Annual PT. Due on due Goal ORDNANCE MECHANIC Scanned. Due on due Goal CATCHER HELPER Paperwork. Due on due Goal AST [...] Goal ALT (SGPT). Due on due Goal CATCHER HELPER Paperwork. Due on due Goal UDT. Due on due Goal ORDNANCE MECHANIC Scanned. Due on due Goal AST (SGOT). [...] on d ue Goal Zoster vaccine ( ). Due on due Goal Lipid panel. Due on due Goal Lifestyle educat ion regarding diet completed Goal ALT (SGPT). Due on due Goal Order Annual PT. Due on due Goal UDT. Due on due Goal AST (SGOT). Due on due Goal ORDNANCE MECHANIC Scanned. Due on due Goal OARS. Due on due Goal Creatinine. Due on due Goal CATCHER HELPER Paperwork. Due on due Goal Tobacco Use. [...] ue Goal CT-Colonography. Due on due Goal UDT. Due on due Goal CATCHER HELPER Paperwork. Due on due Goal AST (SGOT). Due on due Goal Order Annual PT. Due on due Goal OARS. Due on due Goal ALT (SGPT). Due on due Goal ORDNANCE MECHANIC Scanned. Due on due Goal Creatinine. Due on due Goal Zoster vaccine ( 1st). Due on due Goal Lipid panel. Due on 023 due Goal Height. Due on d ue Goal Medication Recon ciliation. Due on due Goal FIT. Due on due Goal HPV. Due on due Goal Tobacco Use. Due on 022 due Goal PHQ-9. Due on du e Goal CT-Colonography. Due on due Goal Hepatitis C scre ening. Due on due Goal Weight. Due on d ue Goal FIT-DNA. Due on due Goal Unhealthy drug u se screening. Due on due Goal Update Social Hi story. Due on due Goal Review Allergy L ist. Due on due Goal Order Annual PT. Due on due Goal CATCHER HELPER Paperwork. Due on due Goal AST (SGOT). Due on due Goal ORDNANCE MECHANIC Scanned. Due on due Goal UDT. Due on due Goal OARS. Due on due Goal ALT (SGPT). Due on due Goal Creatinine. Due on due Goal Tobacco Use. Due on 022 due Goal Review Allergy L ist. Due [...] due Goal FIT-DNA. Due on due Goal Zoster vaccine ( 1st). Due on due Goal Weight. Due on d ue Goal ORDNANCE MECHANIC Scanned. Due on 020 due Goal Order Annual PT. Due on due Goal Creatinine. Due on due Goal AST (SGOT). Due on due Goal OARS. Due on due Goal UDT. Due on due Goal ALT (SGPT). Due on due Goal CATCHER HELPER Paperwork. Due on due Goal Medication [...] due Goal Creatinine. Due on due Goal CATCHER HELPER Paperwork. Due on due Goal UDT. Due on due Goal ORDNANCE MECHANIC Scanned. Due on due Goal OARS. Due [...] vaccine ( ). Due on due Goal Creatinine. Due on due Goal Order Annual PT. Due on due Goal ALT (SGPT). Due on due Goal AST (SGOT). Due on due Goal OARS. Due on due Goal UDT. Due on due Goal CATCHER HELPER Paperwork. Due on due Goal ORDNANCE MECHANIC Scanned. Due on [address]-Colonography. Due on due Goal Lipid panel. Due on 023 due Goal Unhealthy drug u se screening. [...] Goal Tobacco Use. Due on due Goal CATCHER HELPER Paperwork. Due on due Goal ALT (SGPT). Due on due Goal Order Annual PT. Due on due Goal OARS. Due on due Goal Creatinine. Due on due Goal UDT. Due on due Goal AST (SGOT). Due on due Goal ORDNANCE MECHANIC Scanned. Due on due Goal Zoster vaccine [...] Goal ALT (SGPT). Due on due Goal CATCHER HELPER Paperwork. Due on due Goal Creatinine. Due on due Goal OARS. Due on due Goal ORDNANCE MECHANIC Scanned. Due on due Goal AST (SGOT). [...] Goal PHQ-9. Due on du e Goal AST (SGOT). Due on due Goal Creatinine. Due on due Goal UDT. Due on due Goal Order Annual PT. Due on due Goal ALT (SGPT). Due on due Goal OARS. Due on due Goal ORDNANCE MECHANIC Scanned. Due on due Goal CATCHER HELPER Paperwork. Due on due Goal Tobacco Use. [...] Goal PHQ-9. Due on du e Goal ORDNANCE MECHANIC Scanned. Due on due Goal UDT. Due on due Goal Order Annual PT. Due on due Goal CATCHER HELPER Paperwork. Due on due Goal ALT [...] Order Annual PT. Due on due Goal ORDNANCE MECHANIC Scanned. Due on due Goal AST (SGOT). Due on due Goal CATCHER HELPER Paperwork. Due on due Goal Creatinine. [...] Tobacco Use. Due on 022 due Goal Update Social Hi story. Due on due Goal Order Annual PT. Due on due Goal ORDNANCE MECHANIC Scanned. Due on 020 due Goal AST (SGOT). Due on due Goal CATCHER HELPER Paperwork. Due on due Goal Creatinine. [...] Order Annual PT. Due on due Goal ORDNANCE MECHANIC Scanned. Due on due Goal AST (SGOT). Due on due Goal CATCHER HELPER Paperwork. Due on due Goal Creatinine. [...] Order Annual PT. Due on due Goal ORDNANCE MECHANIC Scanned. Due on due Goal AST (SGOT). Due on due Goal CATCHER HELPER Paperwork. Due on due Goal Creatinine. [...] Order Annual PT. Due on due Goal ORDNANCE MECHANIC Scanned. Due on due Goal AST (SGOT). Due on due Goal CATCHER HELPER Paperwork. Due on due Goal Creatinine. [...] Order Annual PT. Due on due Goal ORDNANCE MECHANIC Scanned. Due on due Goal AST (SGOT). Due on due Goal CATCHER HELPER Paperwork. Due on due Goal Creatinine. [...] Order Annual PT. Due on due Goal ORDNANCE MECHANIC Scanned. Due on due Goal AST (SGOT). Due on due Goal CATCHER HELPER Paperwork. Due on due Goal Creatinine. [...] Order Annual PT. Due on due Goal ORDNANCE MECHANIC Scanned. Due on due Goal AST (SGOT). Due on due Goal CATCHER HELPER Paperwork. Due on due Goal Creatinine. [...] Order Annual PT. Due on due Goal ORDNANCE MECHANIC Scanned. Due on due Goal AST (SGOT). Due on due Goal CATCHER HELPER Paperwork. Due on due Goal Creatinine. [...] Order Annual PT. Due on due Goal ORDNANCE MECHANIC Scanned. Due on due Goal AST (SGOT). Due on due Goal CATCHER HELPER Paperwork. Due on due Goal Creatinine. [...] Order Annual PT. Due on due Goal ORDNANCE MECHANIC Scanned. Due on due Goal AST (SGOT). Due on due Goal CATCHER HELPER Paperwork. Due on due Goal Creatinine. [...] Order Annual PT. Due on due Goal ORDNANCE MECHANIC Scanned. Due on due Goal AST (SGOT). Due on due Goal CATCHER HELPER Paperwork. Due on due Goal Creatinine. Due on due Goal ALT (SGPT). Due on due Goal UDT. Due on due Goal OARS. Due on due Referral Ordered: Kathy Glover -Family Medicine (related to Chronic migraine w/o aura, intractable, w/o stat migr) ordered Referral Referred To: Kathy Glover [address] [place], [address] [phone] Ordered: Referrals: Family Medicine. Kathy Glover ordered Future Order: Radiology Order XR Hips [employer] Pelvis 2V ([id number]), Sent on: Sent Future Order: Lab Order Drug Kasia t Def 22+ Classes (G0483), Ordered on: Ordered Future Order: Lab Order COMPLIAN CE DRUG ANALYSIS, URINE, WITH MED REPORT ([id number]), Ordered on: Ordered Future Order: Lab Order Drug Kasia t Def 22+ Classes ([id number]), Ordered on: Ordered History Of Present Illness Encounter Date Complaint History Of Prese nt Illness Comments: This i s my first evaluation [...] allowing for increased functionality. Continues to use Vancleve 5/325 sparingly. Presents on track today. No SE noted. No other concerns today. low back pain [...] interested at this time. Continues to use Vancleve sparingly. Presents with a surplus. Also utilizes [...] changes to her pain. Continues to use Vancleve sparingly. No other concerns today. low back [...] changes to her pain. Continues to use Vancleve sparingly. May use up to QID some days, but otherwise can go days without use. Is on Lyrica for fibro through her psychiatrist. Found this addition helpful. No other concerns today. low back pain Severity level i s 5. Duration: chronic. The problem is worsening. It occurs persistently. The client describes the pain as sharp. Symptoms are aggravated by bending, lifting, sitting, standing, twisting, walking, housework, movement, rising from sitting position, stairs and prolonged positioning. 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 Notes she was trying to vacuum the cobwebs and had strained herself trying to reach up. She states bending forward and backwards aggravates the pain. Willing to be prescribed a muscle relaxant and receive TPIs. No other concerns today. Comments: Yenni is a 52 y/o woman seen in clinic for follow up and medication refill regarding chronic bilateral hip pain and migraines. Also c/o lower back pain. She has not had a follow up since 12/04/2022. Pain has worsened since [facility], primarily with her hips. Would like to have TPIs in her hips today.States migraines have been ongoing, but has been approved to have Botox at a higher dose and more often.Notes she is enjoying her new job at [employer] in [place]. She will be switching insurances at the [...] other concerns today. bilateral hip pain Duration personal development coach christine. The problem is worsening. The pain is recurring. Location of pain is bilateral. The client describes the pain as sharp. Symptom is aggravated by lifting weight, standing, housework and twisting. Relieving factors include ice and medications. Pertinent negatives include fever. bilateral hip pain Duration personal development coach christine. The problem is worsening. It occurs constantly. Location of pain is bilateral lower back. Pertinent negatives include fever. Comments: Yenni is a 52 y/o woman seen virtually for follow up and medication refill regarding chronic bilateral hip pain and migraines. Also c/o lower back pain. Pain has worsened since [facility] and pain level averages 5/10. Continues HEP [...] completed RADHA provided significant benefit.Completed Botox at [facility] in [place] on 09/26/22.Current medication regimen provides 75% pain relief and allows increased functionality. Presents on track with prescribed medication. Will hold off on starting Qulipta and Ubrelvy for now. Denies side effects from current medication regimen. No other concerns today. bilateral hip pain Duration personal development coach christine. Location of pain is bilateral. Pertinent [...] on 09/30/22 while out shoveling.Completed Botox at [facility] in [place] on 09/26/22.Requests provider to check her back [...] her pain level.Scheduled to have Botox at [facility] in [place] on 09/26/22.Current medication regimen provides 85% pain [...] other concerns today. bilateral hip pain Duration personal development coach christine. The problem is worsening. It occurs [...] States she has a consult scheduled with [facility] and is hopeful they will [...] not yet established with neurology and requests [facility] to do one last Botox [...] stable since last OV. 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 Current medication provides significant relief and allows her to complete her ADLs. She requests a refill today. Patient is not accompanied today and has no other questions or concerns. bilateral hip pain Severity lizbet marshall is moderate. Duration chronic. It occurs occasionally. [...] more than 3 months. 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 She has been participating in acute care assistant which has also helped with her pain. [...] her mother back and forth from the [facility] which has aggravated her pain. Notes that she had TPIs on 01/2021 which were very beneficial for her hip and is requesting to repeat them today.Reports current medication regimen provides >50% pain relief and allows for increased functionality. Denies side effects from current medication regimen. Requests a refill of her Vancleve which she uses sparingly.Patient is not accompanied. [...] [facility] not [facility] [...] been occurring since 10/09. She has tried Vancleve, cannabis and Levetiracetam and the migraine is [...] has been helpful. Continues to use her Vancleve sparingly to maintain her lowest effective dose.Patient [...] is planning on going to the chiropractor [facility]. 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 Continues to utilize Vancleve 5mg tablets sparingly which has been very [...] by pain/RX meds. Leg Pain (comments) Yenni cong loyola for a followup and medication refill for [...] and medication refill. She presents with #1 Vancleve- surplus. Current medication regimen provides 70% relief. Denies side effects from current medication regimen. Pain today is improving s/p Botox injections 06/09/19. States she has only had three migraines since her injections, and was previously having up to 6 migraines per week. Does report recent R rib fx and inquires about a temporary increase in her Vancleve dose as she recovers.Patient is not accompanied [...] regular SI joint injections, previously completed at [facility], to [facility] in the future. Patient is [...] the end of the day.Underwent PT at [facility] in 2016 and [facility] in 2019-- helpful. Completed LESI with [facility]--helpful for 5 months. Reports previous imaging at [facility] and [facility]. Currently managed on Lyrica 150mg 3 tabs nightly. Has also trialed and failed Gabapentin, Cymbalta, codeine, and oxycodone for additional pain relief. Previously following with PCP regarding hydrocodone 5/325mg for PRN use which effectively controls her RLE pain and chronic migraines.Yenni is interested in medication management and would like [facility] to assume management of pain [...]
--- OUTSIDE RECORDS SUMMARY | 2025-03-31 06:32 | XMS_ITS | Continuity of Care Document ---
Author Organization [facility] christine Address [address] [facility] [place] [address] Phone Care Team Providers Care Part Maker Name Role Phone Will MD VILLARREAL, George [...] opiod tx OFFICE VISIT, EST TELEMEDICINE Drug test def 8-14 classes Drug Urine Toxology With Chromatography INJ TRIGGER POINT, / MUSCL Kenalog Triamcinolone [...] Diagnoses Date Provider Providers Copied on Encounter [facility], [address] [place] [address], [id number] , [place] tel:[phone] [facility] No Information 5 Evelio Vazquez. [address] [place] [address], [id number], [place]. tel:[phone] OFFICE VISIT, [facility] TELEMEDICINE [facility], [address] [place] [address], [id number] , [place] tel:[phone] [facility] low back pain (chief complaint) Chronic pain syndromePostlami nectomy syndrome, not elsewhere classifiedMyalgi a, other siteLong term (current) use of opiate analgesicPain in left hipPain in right hip Nov-0 5 Fernando Oliver. [address], [address], [place], [place], [id number], [place]. tel:[phone] Referring Provider: George Zurita, [address] [facility] [place], [address] . tel:[phone] OFFICE/OUTPAT IENT VISIT, [facility], [address] [place] [address], [id number] , [place] tel:[phone] [facility] low back pain (chief complaint) Chronic pain syndromePostlami nectomy syndrome, not elsewhere classifiedMyalgi a, other siteLong term (current) use of opiate analgesic 4 Jin Summers. [address] [facility] [address] [address], [place], [place], [id number], [place]. tel:[phone] Referring Provider: George Zurita, [address] [place] [address] [place], [address] . tel:[phone] OFFICE/OUTPAT IENT VISIT, [facility], [address] [place] [address], [id number] , [place] tel:[phone] [facility] low back pain (chief complaint) Chronic pain syndromePostlami nectomy syndrome, not elsewhere classifiedMyalgi a, other siteLong term (current) use of opiate analgesicBody mass index [BMI]30.0-30.9, adultEncounter for therapeutic drug level monitoring 4 Andrew Gallardo. [address] [place] [address], [id number], [place]. tel:[phone] Referring Provider: George Zurita, [address] [place] [address] [place], [address] . tel:[phone] [facility], [address] [place] [address], [id number] , [place] tel:[phone] [facility] No Information 4 Jacquelyn Rhoades. [place], [address] [place], [address], [place]. tel:[phone] OFFICE/OUTPAT IENT VISIT, [facility], [address] [place] [address], [id number] , [place] tel:[phone] [facility] low back pain (chief complaint) Chronic pain syndromePostlami nectomy syndrome, not elsewhere classifiedMyalgi a, other siteLong term (current) use of opiate analgesic 4 Leatha Dinero. [address], [place], [place], [id number], [place]. tel:[phone] Referring Provider: George Zurita, [address] [facility] [place], [address] . tel:[phone] OFFICE/OUTPAT IENT VISIT, [facility], [address] [place] [address], [id number] , [place] tel: [phone] [facility] low back pain (chief complaint) Chronic pain syndromePostlami nectomy syndrome, not elsewhere classifiedMyalgi a, other siteLong term (current) use of opiate analgesicEncount er for therapeutic drug level monitoring 4 Flcholo Summers. [address] [facility] [facility] [address] [facility] [address] [address], [place], [place], [id number], [place]. [phone] Referring Provider: George Zurita, [address] [place] [address] [place], [address] . tel:[phone] OFFICE/OUTPAT IENT VISIT, [facility], [address] [place] [address], [id number] , [place] tel: [phone] [facility] bilateral hip pain (chief complaint) Chronic migraine without aura, intractable, without status migrainosusChron ic pain syndromeTrochant jatin bursitis, right hipMyalgia, other sitePostlaminect asuncion syndrome, not elsewhere classifiedLong term (current) use of opiate analgesicEncount er for therapeutic drug level monitoring 3 Jacquelyn Rhoades. [place], [address] [place], [address], [place]. [phone] Referring Provider: George Zurita, [address] [place] [address] [place], [address] . tel:[phone] [facility], [address] [place] [address], [id number] , [place] tel:[phone] [facility] No Information 3 Jacquelyn Rhoades. [place], [address] [place], [address], [place]. [phone] Referring Provider: George Zurita, [address] [place] [address] [place], [address] . tel:[phone] [facility], [address] [facility] [place], [id number] , [place] tel:[phone] [facility] No Information 3 Vanessa Harrison. [address] [facility] [place], [place], [id number], [place]. [phone] OFFICE VISIT, EST TELEMEDICINE [facility], [address] [place] [address] [place], [place], [id number] , [place] tel:[phone] [facility] bilateral hip pain (chief complaint) Chronic migraine without aura, intractable, without status migrainosusChron ic pain syndromeTrochant jatin bursitis, right hipMyalgia, other sitePostlaminect asuncion syndrome, not elsewhere classifiedLong term (current) use of opiate analgesic 3 Jacquelyn Hutson [place], [address] [place], [address], [place]. tel:[phone] Referring Provider: George Zurita, [address] [place] [address] [place], [address] . tel:[phone] OFFICE VISIT, EST TELEMEDICINE [facility], [address] [place] [address], [id number] , [place] tel:[phone] [facility] bilateral hip pain (chief complaint) Chronic migraine without aura, intractable, without status migrainosusChron ic pain syndromeTrochant jatin bursitis, right hipMyalgia, other sitePostlaminect asuncion syndrome, not elsewhere classifiedLong term (current) use of opiate analgesic 3 Jacquelyn Hutson [place], [address] [place], [address], [place]. tel:[phone] Referring Provider: George Zurita, [address] [place] [address] [place], [address] . tel:[phone] [facility], [address] [place] [address], [id number] , [place] tel:[phone] [facility] No Information 3 Jacquelyn Hutson [place], [address] [place], [place], [facility], [place]. tel:[phone] OFFICE/OUTPAT IENT VISIT, [facility], [address] [place] [address], [id number] , [place] [phone] [facility] bilateral hip pain (chief complaint) Chronic migraine without aura, intractable, without status migrainosusChron ic pain syndromeTrochant jatin bursitis, right hipMyalgia, other sitePostlaminect asuncion syndrome, not elsewhere classifiedLong term (current) use of opiate analgesicEncount er for therapeutic drug level monitoringEncoun ter for screening for other disorder 3 Jacquelyn Hutson [place], [address] [place], [place], [facility], [place]. tel:[phone] Referring Provider: George Zurita, [address] [place], [place] [address], [address] . tel:[phone] OFFICE VISIT, [facility], [address] [place] [address], [id number] , [place] tel:[phone] [facility] Hip pain (chief complaint) Chronic migraine without aura, intractable, without status migrainosusChron ic pain syndromeTrochant jatin bursitis, right hipMyalgia, other sitePostlaminect asuncion syndrome, not elsewhere classifiedLong term (current) use of opiate analgesic 2 Tigre Velasquez. [address] [address], [place], [place], [id number], [place]. tel:[phone] Referring Provider: George Zurita, [address] [place], [place] [address], [address] . tel:[phone] OFFICE VISIT, [facility], [address] [place] [address], [id number] , [place] tel:[phone] [facility] bilateral hip pain (chief complaint) Chronic migraine without aura, intractable, without status migrainosusChron ic pain syndromeTrochant jatin bursitis, right hipMyalgia, other sitePostlaminect asuncion syndrome, not elsewhere classifiedLong term (current) use of opiate analgesic Nov-1 0- 2 Tigre Velasquez. [address] [facility] [address] [facility] [address] [address], [place], [place], [id number], [place]. tel:[phone] Referring Provider: George Zurita, [address] [place], [place] [address], [address] . tel:[phone] [facility], [address] [place] [address], [id number] , [place] tel:[phone] [facility] No Information Sep-0 2 Jacquelyn [place], [address] [place], [address], [place]. [phone] OFFICE/OUTPAT IENT VISIT, [facility], [address] [place] [address], [id number] , [place] tel:[phone] [facility] bilateral hip pain (chief complaint) Chronic migraine without aura, intractable, without status migrainosusChron ic pain syndromeTrochant jatni bursitis, right hipMyalgia, other sitePostlaminect asuncion syndrome, not elsewhere classifiedLong term (current) use of opiate analgesic Sep-0 2 Jacquelyn [place], [address] [facility], [place], [address], [place]. [phone] Referring Provider: George Zurita, [address] [facility], [address] . tel:[phone] OFFICE VISIT, EST TELEMEDICINE [facility], [address] [place] [address], [id number] , [place] tel:[phone] [facility] Hip Pain (chief complaint) Chronic migraine without aura, intractable, without status migrainosusChron ic pain syndromeTrochant jatin bursitis, right hipMyalgia, other sitePostlaminect asuncion syndrome, not elsewhere classifiedLong term (current) use of opiate analgesic Mar-2 2 Jacquelyn Suggs, [address] [place], [address], [place]. tel:[phone] [facility], [address] [place] [address], [id number] , [place] tel: [phone] [facility] Chronic migraine without aura, intractable, without status migrainosus 2 Valladaresgreg [place], [address] [facility], [place], [address], [place]. tel: [phone] Referring Provider: George Zurita, [address] [place], [place] [address], [address] . tel:[phone] OFFICE VISIT, [facility] TELEMEDICINE [facility], [address] [place] [address], [id number] , [place] tel: [phone] [facility] Hip Pain (chief complaint) Chronic pain syndromePostlami nectomy syndrome, not elsewhere classifiedTrocha nteric bursitis, right hipLong term (current) use of opiate analgesicChronic migraine without aura, intractable, without status migrainosusMyalg ia, other site 2 Valladaresgreg [place], [address] [facility], [place], [address], [place]. tel:[phone] OFFICE VISIT, EST TELEMEDICINE [facility], [address] [place] [address], [id number] , [place] tel: [phone] [facility] bilateral hip pain (chief complaint) Chronic pain syndromePostlami nectomy syndrome, not elsewhere classifiedTrocha nteric bursitis, right hipLong term (current) use of opiate analgesicChronic migraine without aura, intractable, without status migrainosusMyalg ia, other site 1 Valladaresgreg [place], [address], [place], [address], [place]. tel:[phone] [facility], [address] [place] [address], [id number] , [place] tel: [phone] [facility] Chronic migraine without aura, intractable, without status migrainosus 1 Jacquelyn Suggs, [address] [place], [address], [place]. tel:[phone] Referring Provider: George Zurita, [address] [place] [address] [place], [address] . tel:[phone] OFFICE VISIT, [facility] TELEMEDICINE [facility], [address] [place] [address], [id number] , [place] tel:[phone] [facility] bilateral hip pain (chief complaint) Chronic pain syndromePostlami nectomy syndrome, not elsewhere classifiedTrocha nteric bursitis, right hipLong term (current) use of opiate analgesicChronic migraine without aura, intractable, without status migrainosusMyalg ia, other site 1 Valladaresgreg Rhoades. [place], [address] [place], [address], [place]. tel:[phone] OFFICE VISIT, EST [facility], [address] [place] [address], [id number] , [place] tel:[phone] [facility] Leg Pain (chief complaint) Chronic pain syndromePostlami nectomy syndrome, not elsewhere classifiedTrocha nteric bursitis, right hipLong term (current) use of opiate analgesicChronic migraine without aura, intractable, without status migrainosusMyalg ia, other site 1 Jacquelyn Rhoades. [place], [address] [place], [address], [place]. [phone] Referring Provider: George Zurita, [address] [place], [place] [address], [address] . tel:[phone] [facility], [address] [place] [address], [id number] , [place] [phone] [facility] Postlaminectomy syndrome, not elsewhere classified 1 Jacquelyn Hutson [place], [address] [place], [address], [place]. [phone] Referring Provider: George Zurita, [address] [place] [address] [place], [address] . tel:[phone] OFFICE/OUTPAT IENT VISIT, [facility], [address] [place] [address], [id number] , [place] [phone] [facility] right leg pain (chief complaint) Postlaminectomy syndrome, not elsewhere classifiedChroni c pain syndromeTrochant jatin bursitis, right hipLong term (current) use of opiate analgesicChronic migraine without aura, intractable, without status migrainosusMyalg ia, other site 1 Jacquelyn Hutson [place], [address] [place], [address], [place]. tel:[phone] Referring Provider: George Zurita, [address] [place], [place] [address], [address] . tel:[phone] [facility], [address] [place] [address], [id number] , [place] [phone] [facility] Chronic migraine without aura, intractable, without status migrainosus 1 Jacquelyn Hutson [place], [address] [place], [address], [place]. tel:[phone] Referring Provider: George Zurita, [address] [place], [place] [address], [address] . tel:[phone] OFFICE VISIT, [facility] TELEMEDICINE [facility], [address] [place], [id number] , [place] [phone] [facility] Leg Pain (chief complaint) Postlaminectomy syndrome, not elsewhere classifiedChroni c pain syndromeTrochant jatin bursitis, right hipLong term (current) use of opiate analgesicChronic migraine without aura, intractable, without status migrainosusMyalg ia, other site 1 Jacquelny Hutson [place], [address] [place], [address], [place]. tel:[phone] Referring Provider: George Zurita, [address] [facility] [place], [address] . tel:[phone] OFFICE/OUTPAT IENT VISIT, [facility], [address] [place] [address], [id number] , [place] tel: [phone] [facility] Leg Pain (chief complaint) Postlaminectomy syndrome, not elsewhere classifiedChroni c pain syndromeTrochant jatin bursitis, right hipLong term (current) use of opiate analgesicChronic migraine without aura, intractable, without status migrainosusMyalg ia, other site 1 Valladares Jf. [place], [address] [place], [address], [place]. tel:[phone] Referring Provider: George Zurita, [address] [place], [place] [address], [address] . tel:[phone] OFFICE VISIT, [facility] TELEMEDICINE [facility], [address] [place] [address], [id number] , [place] tel: [phone] [facility] Leg Pain (chief complaint) Chronic migraine without aura, intractable, without status migrainosusMyalg ia, other sitePostlaminect asuncion syndrome, not elsewhere classifiedChroni c pain syndromeTrochant jatin bursitis, right hipLong term (current) use of opiate analgesic Dec- 1 Valladares Jf. [place], [address] [place], [address], [place]. tel:[phone] Referring Provider: George Zurita, [address] [place], [place] [address], [address] . tel:[phone] [facility], [address] [place] [address], [id number] , [place] [phone] [facility] Chronic migraine without aura, intractable, without status migrainosus Apr-0 1 Valladares Jf. [place], [address] [place], [address], [place]. tel:[phone] Referring Provider: George Zurita, [address] [place] [address] [place], [address] . tel:[phone] OFFICE VISIT, [facility], [address] [place], [place], [id number] , [place] tel:[phone] [facility] Leg Pain (chief complaint) Chronic migraine without aura, intractable, without status migrainosusMyalg ia, other sitePostlaminect asuncion syndrome, not elsewhere classifiedTrocha nteric bursitis, right hipChronic pain syndromeLong term (current) use of opiate analgesic 1 Jacquelyn Hutson [place], [address] [place], [address], [place]. tel:[phone] Referring Provider: George Zurita, [address] [place], [place] [address], [address] . tel:[phone] OFFICE VISIT, [facility], [address] [place] [address], [id number] , [place] tel:[phone] [facility] Leg Pain (chief complaint) Chronic migraine without aura, intractable, without status migrainosusMyalg ia, other sitePostlaminect asuncion syndrome, not elsewhere classifiedTrocha nteric bursitis, right hipChronic pain syndromeLong term (current) use of opiate analgesic 1 Jacquelyn [place], [address] [place], [address], [place]. tel:[phone] Referring Provider: George Zurita, [address] [place], [address] . tel:[phone] OFFICE/OUTPAT IENT VISIT, [facility], [address] [place] [address], [id number] , [place] [phone] [facility] Leg Pain (chief complaint) Chronic migraine without aura, intractable, without status migrainosusMyalg ia, other sitePostlaminect asuncion syndrome, not elsewhere classifiedTrocha nteric bursitis, right hipChronic pain syndromeLong term (current) use of opiate analgesic 1 Jacquelyn Hutson [place], [address] [place], [address], [place]. tel:[phone] Referring Provider: George Zurita, [address] [place] [address] [place], [address] . tel:[phone] OFFICE VISIT, [facility] TELEMEDICINE [facility], [address] [place] [address], [id number] , [place] [phone] [facility] Leg Pain (chief complaint) Chronic migraine without aura, intractable, without status migrainosusMyalg ia, other sitePostlaminect asuncion syndrome, not elsewhere classifiedTrocha nteric bursitis, right hipChronic pain syndromeLong term (current) use of opiate analgesic 1 Jacquelyn Rhoades. [place], [address] [place], [address], [place]. tel:[phone] Referring Provider: George Zurita, [address] [place] [address] [place], [address] . tel:[phone] [facility], [address] [place] [address], [id number] , [place] [phone] [facility] No Information 1 Jacquelyn Rhoades. [place], [address] [place], [address], [place]. tel:[phone] Referring Provider: George Zurita, [address] [place] [address] [place], [address] . tel:[phone] [facility], [address] [place] [address], [id number] , [place] [phone] [facility] Chronic migraine without aura, intractable, without status migrainosus 1 Jacquelyn Hutson [place], [address] [place], [address], [place]. tel:[phone] Referring Provider: George Zurita, [address] [place] [address] [place], [address] . tel:[phone] OFFICE VISIT, EST TELEMEDICINE [facility], [address] [place], [place], [id number] , [place] tel: [phone] [facility] Leg Pain (chief complaint) Myalgia, other siteChronic migraine without aura, intractable, without status migrainosusPostl aminectomy syndrome, not elsewhere classifiedChroni c pain syndromeTrochant jatin bursitis, right hipLong term (current) use of opiate analgesic Dec-3 0- 0 Jacquelyn [place], [address] [place], [address], [place]. [phone] Referring Provider: George Zurita, [address] [place], [place] [address], [address] . tel:[phone] OFFICE VISIT, [facility], [address] [place] [address], [id number] , [place] tel:[phone] [facility] Leg Pain (chief complaint) Myalgia, other siteChronic migraine without aura, intractable, without status migrainosusPostl aminectomy syndrome, not elsewhere classifiedChroni c pain syndromeTrochant jatin bursitis, right hipLong term (current) use of opiate analgesic Nov-2 0 0 Jacquelyn Suggs, [address] [place], [address], [place]. [phone] Referring Provider: George Zurita, [address] [place], [place] [address], [address] . tel:[phone] OFFICE VISIT, EST TELEMEDICINE [facility], [address] [place] [address], [id number] , [place] tel:[phone] [facility] Leg Pain (chief complaint) Chronic migraine without aura, intractable, without status migrainosusPostl aminectomy syndrome, not elsewhere classifiedChroni c pain syndromeTrochant jatin bursitis, right hipLong term (current) use of opiate analgesicMyalgia , other site Oct- 0 Jacquelyn Suggs, [address] [place], [address], [place]. tel:[phone] Referring Provider: George Zurita, [address] [place], [place] [address], [address] . tel:[phone] [facility], [address] [place] [address], [id number] , [place] tel:[phone] [facility] Chronic migraine without aura, intractable, without status migrainosus 0 Jacquelyn [place], [address] [place], [address], [place]. tel:[phone] Referring Provider: George Zurita, [address] [place], [place] [address], [address] . tel:[phone] OFFICE VISIT, [facility] TELEMEDICINE [facility], [address] [place] [address], [id number] , [place] [phone] [facility] Leg Pain (chief complaint) Chronic migraine w/o aura, intractable, w/o stat migrPostlaminect asuncion syndrome, not elsewhere classifiedChroni c pain syndromeTrochant jatin bursitis, right hipLong term (current) use of opiate analgesicMyalgia , other site 0 Jacquelyn Suggs, [address] [place], [address], [place]. tel:[phone] Referring Provider: George Zurita, [address] [place], [place] [address], [address] . tel:[phone] OFFICE/OUTPAT IENT VISIT, [facility], [address] [place] [address], [id number] , [place] [phone] [facility] Leg Pain (chief complaint) Chronic migraine w/o aura, intractable, w/o stat migrPostlaminect asuncion syndrome, not elsewhere classifiedChroni c pain syndromeTrochant jatin bursitis, right hipLong term (current) use of opiate analgesicMyalgia , other site 0 Jacquelyn [place], [address] [place], [address], [place]. tel:[phone] Referring Provider: George Zurita, [address] [place], [place] [address], [address] . tel:[phone] OFFICE VISIT, [facility] TELEMEDICINE [facility], [address] [place] [address], [id number] , [place] [phone] [facility] Leg Pain (chief complaint) Chronic migraine w/o aura, intractable, w/o stat migrPostlaminect asuncion syndrome, not elsewhere classifiedChroni c pain syndromeTrochant jatin bursitis, right hipLong term (current) use of opiate analgesic Apr- 0 Valladares Dan. [place], [address] [place], [address], [place]. tel:[phone] Referring Provider: George Zurita, [address] [place], [place] [address], [address] . tel:[phone] OFFICE VISIT, [facility] TELEMEDICINE [facility], [address] [place] [address], [id number] , [place] [phone] [facility] (chief complaint) Chronic migraine w/o aura, intractable, w/o stat migrPostlaminect asuncion syndrome, not elsewhere classifiedChroni c pain syndromeTrochant jatin bursitis, right hipLong term (current) use of opiate analgesic 0 Jacquelyn [place], [address] [place], [address], [place]. tel:[phone] Referring Provider: George Zurita, [address] [place], [place] [address], [address] . tel:[phone] [facility], [address] [place] [address], [id number] , [place] tel:[phone] [facility] Chronic migraine w/o aura, intractable, w/o stat migr Dell- 0 Valladaresgreg [place], [address] [place], [address], [place]. tel:[phone] Referring Provider: George Zurita, [address] [place] [address] [facility] [place], [address] . tel:[phone] OFFICE/OUTPAT IENT VISIT, [facility], [address] [place] [address], [id number] , tel:[phone] [facility] Leg Pain (chief complaint) Postlaminectomy syndrome, not elsewhere classifiedTrocha nteric bursitis, right hipChronic migraine w/o aura, intractable, w/o stat migrLong term (current) use of opiate analgesicChronic pain syndromeMyalgia, other site 0 Jacquelyn [place], [address] [place], [address], [place]. tel:[phone] Referring Provider: George Zurita, [address] [place] [address] [place], [address] . tel:[phone] OFFICE VISIT, [facility], [address] [place] [address], [id number] , [place] tel:[phone] [facility] Leg Pain (chief complaint) headache (chief complaint) Postlaminectomy syndrome, not elsewhere classifiedTrocha nteric bursitis, right hipChronic migraine w/o aura, intractable, w/o stat migrLong term (current) use of opiate analgesic 0 Jacquelyn Suggs, [address] [place], [address], [place]. tel:[phone] Referring Provider: George Zurita, [address] [place] [address] [facility], [address] . tel:[phone] OFFICE VISIT, [facility], [address] [place] [address], [id number] , [place] tel:[phone] [facility] Leg Pain (chief complaint) Postlaminectomy syndrome, not elsewhere classifiedTrocha nteric bursitis, right hipChronic migraine w/o aura, intractable, w/o stat migrLong term (current) use of opiate analgesic 0 Jacquelyn Suggs, [address] [facility], [place], [address], [place]. [phone] Referring Provider: George Zuriat, [address] [place] [address] [place], [address] . tel:[phone] OFFICE VISIT, [facility] TELEMEDICINE [facility], [address] [place] [address], [id number] , [place] tel:[phone] [facility] Leg Pain (chief complaint) Postlaminectomy syndrome, not elsewhere classifiedTrocha nteric bursitis, right hipChronic migraine w/o aura, intractable, w/o stat migrLong term (current) use of opiate analgesic Mar-3 0- 0 Jacquelyn [place], [address] [place], [address], [place]. tel:[phone] Referring Provider: George Zurita, [address] [place] [address] [place], [address] . tel:[phone] [facility], [address] [place] [address], [id number] , [place] tel:[phone] [facility] No Information 0 Glenys Mcfarlane. [facility], [address] [facility] [address] [facility] [address], [place], [address], [place]. tel:[phone] Referring Provider: George Zurita, [address] [place] [address] [place], [address] . 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 tel:[phone] Referring Provider: George Zurita, [address] [place] [address] [place], [address] . tel:[phone] [facility], [address] [place] [address], [id number] , tel:[phone] [facility] Chronic migraine w/o aura, intractable, w/o stat migr Dec-3 0-201 9 Valladares JfKodi [place], [address] [place], [place], [facility], [place]. [phone] Referring Provider: George Zurita, [address] [place] [address] [place], [address] . tel:[phone] OFFICE/OUTPAT IENT VISIT, [facility], [address] [place] [address], [id number] , [place] tel: [phone] [facility] Leg Pain (chief complaint) penitentiary (current) use of opiate analgesicPostlam inectomy syndrome, not elsewhere classifiedTrocha nteric bursitis, right hipChronic migraine w/o aura, intractable, w/o stat migr Dec-0 2-201 9 Valladares Jf. [place], [address] [place], [place], [facility], [place]. [phone] Referring Provider: George Zurita, [address] [place] [address] [place], [address] . tel:[phone] OFFICE/OUTPAT IENT VISIT, [facility], [address] [place] [address], [id number] , [place] [phone] [facility] Leg Pain (chief complaint) penitentiary (current) use of opiate analgesicPostlam inectomy syndrome, not elsewhere classifiedTrocha nteric bursitis, right hipChronic migraine w/o aura, intractable, w/o stat migr Nov-0 6-201 9 Valladares Jf. [place], [address] [place], [place], [facility], [place]. [phone] Referring Provider: George Zurita, [address] [place] [address] [place], [address] . tel:[phone] OFFICE/OUTPAT IENT VISIT, [facility], [address] [place] [address] [place], [id number] , [place] tel:[phone] [facility] Leg Pain (chief complaint) Chronic pain syndromeChronic migraine w/o aura, intractable, w/o stat migrTrochanteric bursitis, right hipPostlaminecto my syndrome, not elsewhere classifiedLong term (current) use of opiate analgesic Oct- 0-201 9 Valladares Jf. [place], [address] [place], [address], [place]. [phone] Referring Provider: George Zurita, [address] [place] [address] [place], [address] . [phone] [facility], [address] [place] [address], [id number] , [place] tel:[phone] [facility] Chronic migraine w/o aura, intractable, w/o stat migr Sep-2 3-201 9 Valladares Jf. [place], [address] [place], [address], [place]. tel:[phone] Referring Provider: George Zurita, [address] [place] [address] [place], [address] . tel:[phone] [facility], [address] [place] [address], [id number] , [place] tel:[phone] [facility] No Information Sep-0 9-201 9 Glenys Mcfarlane. [facility], [address] [facility] [address] [facility] [address], [place], [address], [place]. tel:[phone] Referring Provider: George Zurita, [address] [place] [address] [place], [address] . tel:[phone] OFFICE/OUTPAT IENT VISIT, [facility], [address] [place] [address] [place], [id number] , [place] tel:[phone] [facility] Leg Pain (chief complaint) Chronic pain syndromeTrochant jatin bursitis, right hipChronic migraine w/o aura, intractable, w/o stat migrPostlaminect asuncion syndrome, not elsewhere classifiedLong term (current) use of opiate analgesic 9 Jacquelyn Rhoades. [place], [address] [facility], [place], [address], [place]. tel:[phone] Referring Provider: George Zurita, [address] [place], [address] . tel:[phone] OFFICE CONSULTATION [facility], [address] [place], [place], [id number] , [place] [phone] [facility] Leg Pain (chief complaint) Chronic pain syndromeTrochant jatin bursitis, right hipChronic migraine w/o aura, intractable, w/o stat migrPostlaminect asuncion syndrome, not elsewhere classifiedEncoun ter for therapeutic drug level monitoringLong term (current) use of opiate analgesic 9 Veronica Denys. [facility], [address], [place], [address], [place]. tel:[phone] Referring Provider: Tan Chapa, [facility] [address], [place], [address]. tel:[phone] Family History Family Member Type Diagnosis Age At Onset Father Problem (finding) back pain Payers Payer name Insurance type Covered republican ID Maegan osborn(s) [facility] [id number] Social History Type Description Quantity Date Captured Comments Alcohol Use Details Unknown Caffeine Use Details Unknown Tobacco Use Status Smoking Status No Information Sex Female Chief Complaint And Reason For Visit No Information Reason For Referral Reason For Referral No Information Plan Of Treatment Date Type Action Status Goal Review Allergy L ist. Due on [...] Order Annual PT. Due on due Goal GEOSPATIAL PROGRAM MANAGEMENT OFFICER Scanned. Due on due Goal OARS. Due on due Goal ALT (SGPT). Due on due Goal AST (SGOT). Due on due Goal Creatinine. Due on due Goal INDUSTRIAL BOILERMAKER Paperwork. Due on due Goal Weight. Due on d ue Goal Zoster vaccine ( 1st). Due on due Goal GEOSPATIAL PROGRAM MANAGEMENT OFFICER Scanned. Due on due Goal OARS. Due on due Goal Creatinine. Due on due Goal AST (SGOT). Due on due Goal ALT (SGPT). Due on 25 due Goal INDUSTRIAL BOILERMAKER Paperwork. Due on due Goal Order Annual [...] due Goal UDT. Due on due Goal Unhealthy drug u [...] Goal Lipid panel. Due on due Goal INDUSTRIAL BOILERMAKER Paperwork. Due on due Goal AST (SGOT). Due on due Goal Creatinine. Due on due Goal OARS. Due on due Goal UDT. Due on due Goal Order Annual PT. Due on due Goal ALT (SGPT). Due on due Goal GEOSPATIAL PROGRAM MANAGEMENT OFFICER Scanned. Due on due Goal Height. Due [...] e Goal Creatinine. Due on due Goal GEOSPATIAL PROGRAM MANAGEMENT OFFICER Scanned. Due on due Goal UDT. Due on due Goal Order Annual PT. Due on due Goal OARS. Due on due Goal AST (SGOT). Due on due Goal INDUSTRIAL BOILERMAKER Paperwork. Due on due Goal Lifestyle educat ion regarding diet completed Goal Tobacco cessation counseling completed Goal GEOSPATIAL PROGRAM MANAGEMENT OFFICER Scanned. Due on due Goal INDUSTRIAL BOILERMAKER Paperwork. Due on due Goal AST (SGOT). [...] Goal ALT (SGPT). Due on due Goal INDUSTRIAL BOILERMAKER Paperwork. Due on due Goal UDT. Due on due Goal GEOSPATIAL PROGRAM MANAGEMENT OFFICER Scanned. Due on due Goal AST (SGOT). Due on due Goal Creatinine. Due on due Goal FIT-DNA. Due on due Goal Tobacco Use. Due on due Goal PHQ-9. Due on du e Goal Hepatitis C scre ening. Due on due Goal Lifestyle educat ion regarding diet completed Goal Height. Due on d ue Goal Lipid panel. Due on due Goal PHQ-9. Due on du e Goal FIT. Due on due Goal Weight. Due on d ue Goal CT-Colonography. Due on due Goal FIT-DNA. Due on due Goal Review Allergy L ist. Due on due Goal Hepatitis C scre ening. Due on due Goal ALT (SGPT). Due on due Goal Order Annual PT. Due on due Goal UDT. Due on due Goal AST (SGOT). Due on due Goal GEOSPATIAL PROGRAM MANAGEMENT OFFICER Scanned. Due on due Goal OARS. Due on due Goal Creatinine. Due on due Goal INDUSTRIAL BOILERMAKER Paperwork. Due on due Goal Tobacco Use. Due on due Goal HPV. Due on due Goal Update Social Hi story. Due on due Goal Zoster vaccine ( ). Due on due Goal Medication Recon ciliation. Due on due Goal Unhealthy drug u se screening. Due on due Goal OARS. Due on due Goal GEOSPATIAL PROGRAM MANAGEMENT OFFICER Scanned. Due on due Goal Creatinine. Due [...] e Goal UDT. Due on due Goal INDUSTRIAL BOILERMAKER Paperwork. Due on due Goal AST (SGOT). [...] Goal Weight. Due on d ue Goal GEOSPATIAL PROGRAM MANAGEMENT OFFICER Scanned. Due on 020 due Goal UDT. [...] Order Annual PT. Due on due Goal INDUSTRIAL BOILERMAKER Paperwork. Due on due Goal UDT. Due on due Goal ALT (SGPT). Due on due Goal INDUSTRIAL BOILERMAKER Paperwork. Due on due Goal Medication Recon ciliation. Due on due Goal GEOSPATIAL PROGRAM MANAGEMENT OFFICER Scanned. Due on 020 due Goal Order Annual PT. Due on due Goal Creatinine. Due on due Goal AST (SGOT). Due on due Goal OARS. Due on due Goal Tobacco Use. Due on 022 due Goal Zoster vaccine ( 1st). Due on due Goal CT-Colonography. Due on [...] Allergy L ist. Due on due Goal FIT. Due on [...] due Goal Creatinine. Due on due Goal INDUSTRIAL BOILERMAKER Paperwork. Due on due Goal UDT. Due on due Goal GEOSPATIAL PROGRAM MANAGEMENT OFFICER Scanned. Due on 020 due Goal OARS. Due on due Goal ALT (SGPT). Due on due Goal Lipid panel. Due on due Goal FIT-DNA. Due on due Goal OARS. Due on due Goal INDUSTRIAL BOILERMAKER Paperwork. Due on due Goal GEOSPATIAL PROGRAM MANAGEMENT OFFICER Scanned. Due on due Goal CT-Colonography. Due [...] Goal AST (SGOT). Due on due Goal HPV. Due on due Goal Weight. Due on d ue Goal FIT. Due on due Goal Hepatitis C scre ening. Due on due Goal CT-Colonography. Due on due Goal Update Social Hi story. Due on due Goal Height. Due on d ue Goal Creatinine. Due on due Goal UDT. Due on due Goal AST (SGOT). Due on due Goal INDUSTRIAL BOILERMAKER Paperwork. Due on due Goal ALT (SGPT). Due on due Goal Order Annual PT. Due on due Goal OARS. Due on due Goal GEOSPATIAL PROGRAM MANAGEMENT OFFICER Scanned. Due on due Goal Zoster vaccine [...] Tobacco Use. Due on 022 due Goal Hepatitis C scre ening. Due [...] Goal ALT (SGPT). Due on due Goal INDUSTRIAL BOILERMAKER Paperwork. Due on due Goal Creatinine. Due on due Goal OARS. Due on due Goal GEOSPATIAL PROGRAM MANAGEMENT OFFICER Scanned. Due on due Goal AST (SGOT). Due on due Goal Order Annual PT. Due on due Goal UDT. Due on due Goal FIT-DNA. Due on due Goal Lipid panel. Due on 022 due Goal AST (SGOT). Due on due Goal CT-Colonography. Due on due Goal PHQ-9. Due on du e Goal Creatinine. Due on due Goal UDT. Due on due Goal Order Annual PT. Due on due Goal ALT (SGPT). Due on due Goal OARS. Due on due Goal GEOSPATIAL PROGRAM MANAGEMENT OFFICER Scanned. Due on due Goal INDUSTRIAL BOILERMAKER Paperwork. Due on due Goal Tobacco Use. Due on due Goal Zoster vaccine ( ). Due on due Goal FIT-DNA. Due on [...] Allergy L ist. Due on due Goal OARS. Due on due Goal Unhealthy drug u se screening. Due on due Goal Zoster vaccine ( ). Due on due Goal Update Social Hi story. Due on due Goal GEOSPATIAL PROGRAM MANAGEMENT OFFICER Scanned. Due on due Goal UDT. Due [...] Order Annual PT. Due on due Goal INDUSTRIAL BOILERMAKER Paperwork. Due on due Goal ALT (SGPT). Due on due Goal AST (SGOT). Due on due Goal Creatinine. Due on due Goal Order Annual PT. Due on due Goal GEOSPATIAL PROGRAM MANAGEMENT OFFICER Scanned. Due on due Goal AST (SGOT). Due on due Goal INDUSTRIAL BOILERMAKER Paperwork. Due on due Goal Creatinine. Due [...] Order Annual PT. Due on due Goal GEOSPATIAL PROGRAM MANAGEMENT OFFICER Scanned. Due on due Goal AST (SGOT). [...] Goal Tobacco Use. Due on due Goal INDUSTRIAL BOILERMAKER Paperwork. Due on due Goal Update Social Hi story. Due on due Goal OARS. Due on [...] Order Annual PT. Due on due Goal GEOSPATIAL PROGRAM MANAGEMENT OFFICER Scanned. Due on due Goal AST (SGOT). Due on due Goal INDUSTRIAL BOILERMAKER Paperwork. Due on due Goal Creatinine. Due on due Goal ALT (SGPT). Due on due Goal Review Allergy L ist. Due on due Goal Height. Due on d ue Goal Medication Recon ciliation. Due on due Goal Weight. Due on d ue Goal Tobacco Use. Due on due Goal Update Social Hi story. Due on due Goal Order Annual PT. Due on due Goal GEOSPATIAL PROGRAM MANAGEMENT OFFICER Scanned. Due on due Goal AST (SGOT). Due on due Goal INDUSTRIAL BOILERMAKER Paperwork. Due on due Goal Creatinine. Due [...] Order Annual PT. Due on due Goal GEOSPATIAL PROGRAM MANAGEMENT OFFICER Scanned. Due on due Goal AST (SGOT). Due on due Goal INDUSTRIAL BOILERMAKER Paperwork. Due on due Goal Creatinine. Due on due Goal ALT (SGPT). Due on due Goal UDT. Due on due Goal OARS. Due on due Goal PHQ-9. Due on du e Goal Review Allergy L ist. Due on due Goal Height. Due on d ue Goal AST (SGOT). Due on due Goal INDUSTRIAL BOILERMAKER Paperwork. Due on due Goal Creatinine. Due [...] Order Annual PT. Due on due Goal GEOSPATIAL PROGRAM MANAGEMENT OFFICER Scanned. Due on due Goal Order Annual PT. Due on due Goal GEOSPATIAL PROGRAM MANAGEMENT OFFICER Scanned. Due on due Goal AST (SGOT). Due on due Goal INDUSTRIAL BOILERMAKER Paperwork. Due on due Goal Creatinine. Due [...] Medication Recon ciliation. Due on due Goal Order Annual PT. Due on due Goal GEOSPATIAL PROGRAM MANAGEMENT OFFICER Scanned. Due on due Goal AST (SGOT). Due on due Goal INDUSTRIAL BOILERMAKER Paperwork. Due on due Goal Creatinine. Due on due Goal ALT (SGPT). Due on due Goal UDT. Due on due Goal OARS. Due on due Goal Weight. Due on d ue Goal Tobacco Use. Due on due Goal Update Social Hi story. Due on due Goal UDT. Due on due Goal OARS. Due on due Goal PHQ-9. Due on du e Goal Review Allergy L ist. Due on due Goal Order Annual PT. Due on due Goal GEOSPATIAL PROGRAM MANAGEMENT OFFICER Scanned. Due on due Goal AST (SGOT). Due on due Goal INDUSTRIAL BOILERMAKER Paperwork. Due on due Goal Creatinine. Due on due Goal ALT (SGPT). Due on due Goal Height. Due on d ue Goal Medication Recon ciliation. Due on due Goal Weight. Due on d ue Goal Tobacco Use. Due on due Goal Update Social Hi story. Due on due Goal AST (SGOT). Due on due Goal INDUSTRIAL BOILERMAKER Paperwork. Due on due Goal Creatinine. Due [...] Social Hi story. Due on due Goal GEOSPATIAL PROGRAM MANAGEMENT OFFICER Scanned. Due on due Goal Order Annual PT. Due on due Goal Height. Due on d ue Goal Medication Recon ciliation. Due on due Goal Weight. Due on d ue Goal Tobacco Use. Due on due Goal Update Social Hi story. Due on due Goal Order Annual PT. Due on due Goal GEOSPATIAL PROGRAM MANAGEMENT OFFICER Scanned. Due on due Goal AST (SGOT). Due on due Goal INDUSTRIAL BOILERMAKER Paperwork. Due on due Goal Creatinine. Due on due Goal ALT (SGPT). Due on due Goal UDT. Due on due Goal OARS. Due on due Goal PHQ-9. Due on du e Goal Review Allergy L ist. Due on due Goal OARS. Due on due Goal UDT. Due on due Goal ALT (SGPT). Due on due Goal Creatinine. Due on due Goal INDUSTRIAL BOILERMAKER Paperwork. Due on due Goal AST (SGOT). Due on due Goal GEOSPATIAL PROGRAM MANAGEMENT OFFICER Scanned. Due on due Goal Order Annual [...] migr) ordered Referral Referred To: Kathy Glover [facility] [place], [address] [phone] Ordered: Referrals: Family Medicine. Kathy Glover ordered Future Order: Radiology Order XR Hips [employer] Pelvis 2V ([id number]), Sent on: Sent Future Order: Lab Order Drug Kasia t Def 22+ Classes ([id number]), Ordered on: Ordered Future Order: Lab Order COMPLIAN CE DRUG ANALYSIS, URINE, WITH MED REPORT ([id number]), Ordered on: Ordered Future Order: Lab Order [...] allowing for increased functionality. Continues to use [place] 5/325 sparingly. Presents on track today. No [...] interested at this time. Continues to use [place] sparingly. Presents with a surplus. Also utilizes [...] changes to her pain. Continues to use [place] sparingly. No other concerns today. low back [...] changes to her pain. Continues to use [place] sparingly. 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 Notes she was trying to vacuum the [...] she is enjoying her new job at [employer] in [place]. She will be switching insurances at the [...] other concerns today. bilateral hip pain Duration pasteurizing supervisor christine. The problem is worsening. The pain is recurring. Location of pain is bilateral. The client describes the pain as sharp. Symptom is aggravated by lifting weight, standing, housework and twisting. Relieving factors include ice and medications. Pertinent negatives include fever. Comments: Yenni [...] other concerns today. bilateral hip pain Duration pasteurizing supervisor christine. The problem is worsening. It occurs constantly. Location of pain is bilateral lower back. Pertinent negatives include fever. bilateral hip pain [...] completed RADHA provided significant benefit.Completed Botox at [facility] in [place] on 09/26/22.Current medication regimen provides 75% pain [...] on 09/30/22 while out shoveling.Completed Botox at [facility] in [place] on 09/26/22.Requests provider to check her back in the location where she is experiencing pain.Current medication regimen provides 85% pain relief and allows increased functionality. Denies side effects from current medication regimen.Of note, patient started a new job since last visit. States that it has not been going well thus far.No other concerns today. bilateral hip pain Duration pasteurizing supervisor christine. Location of pain is bilateral. Pertinent [...] her pain level.Scheduled to have Botox at [facility] in [place] on 09/26/22.Current medication regimen provides 85% pain relief and allows increased functionality. Denies side effects from current medication regimen.No other concerns today. Hip pain Duration chronic . The problem is worsening. It occurs constantly. Location of pain is bilateral. Relieving factors include medications. Pertinent negatives include fever. Nov-10-2022 bilateral hip pain Duration pasteurizing supervisor christine. The problem is worsening. It occurs [...] regimen.No other concerns today. bilateral hip pain Severity [...] States she has a consult scheduled with [facility] and is hopeful they [...] not yet established with neurology and requests [facility] to do one last Botox [...] stable since last OV. 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 Current medication provides significant relief and allows her to complete her ADLs. She requests a refill today. Patient is not accompanied today and has no other questions or concerns. bilateral hip pain (comments) Funmi miranda is [...] more than 3 months. 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 bilateral hip pain Severity lizbet marshall is moderate. Duration chronic. It occurs occasionally. Location of pain is bilateral. Symptom is aggravated by active movement, jumping and passive movement. Relieving factors include rest and physical therapy. Pertinent negatives include fever. Leg Pain (comments) Yenni is her e [...] medication regimen. She has been participating in caretaker grounds which has also helped with her pain. [...] her mother back and forth from the [facility] which has aggravated her pain. Notes that she had TPIs on 01/2021 which were very beneficial for her hip and is requesting to repeat them today.Reports current medication regimen provides >50% pain relief and allows for increased functionality. Denies side effects from current medication regimen. Requests a refill of her Ledgewood which she uses sparingly.Patient is not accompanied. [...] has not gone to the ER yet. [place] has been providing some relief and helping [...] been occurring since 10/09. She has tried Ledgewood, cannabis and Levetiracetam and the migraine is [...] has been helpful. Continues to use her Ledgewood sparingly to maintain her lowest effective dose.Patient [...] is planning on going to the chiropractor [facility]. 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 Continues to utilize Ledgewood 5mg tablets sparingly which has been very beneficial and helps her complete her ADLs and extra housework.Patient is not accompanied today and has no other questions or concerns. Leg Pain (comments) Yenni presen ts for [...] accompanied today. No further questions or concerns. Leg Pain Duration: chroni c. Severity level is 7. Location: right low back. The pain is aching, burning and sharp. The pain is aggravated by bending, climbing (and descending) stairs, lifting, walking and standing. The pain is relieved by pain/RX meds, rest and sitting. headache Duration: chroni c. The problem is worse. Pertinent negatives include fever, nausea and vomiting. Leg Pain (comments) Yenni presen ts for [...] questions or other concerns. Leg Pain Duration: cornelius torres Severity level is moderate. It occurs constantly [...] questions or other concerns. Leg Pain Duration: surekha velasco. Severity level is 2. It occurs intermittently [...] and medication refill. She presents with #1 Ledgewood- surplus. Current medication regimen provides 70% relief. Denies side effects from current medication regimen. Pain today is improving s/p Botox injections 06/09/19. States she has only had three migraines since her injections, and was previously having up to 6 migraines per week. Does report recent R rib fx and inquires about a temporary increase in her Ledgewood dose as she recovers.Patient is not accompanied [...] regular SI joint injections, previously completed at [facility], to [facility] in the future. Patient is [...] the end of the day.Underwent PT at [facility] in 2016 and [facility] in 2019-- helpful. Completed LESI with [facility]--helpful for 5 months. Reports previous imaging at [facility] and [facility]. Currently managed on Lyrica 150mg 3 tabs nightly. Has also trialed and failed Gabapentin, Cymbalta, codeine, and oxycodone for additional pain relief. Previously following with PCP regarding hydrocodone 5/325mg for PRN use which effectively controls her RLE pain and chronic migraines.Yenni is interested in medication management and would like [facility] to assume management of pain [...]
--- OUTSIDE RECORDS SUMMARY | 2025-04-02 11:07 | XMS_ITS | Encounter Summary ---
Author Organization [place] Address [address] [facility] [place] [address] Care Team Providers Care Take Away Worker Name Role Phone Toma Arguello YESICA Unavailable [phone] Laura Us MD Unavailable Tierra Cancino PA-C Unavailable Luh Acharya PA-C Primary Care Provider + Tierra Cancino PA-C Unavailable [phone] Luh Acharya PA-C Unavailable [phone] Haven Buckner CNP Unavailable Reason for Visit * Reason Comments Medication Refill Encounter Details Date Type Department Care Team (Late st Contact Info) Description 12/30/[address] [phone] Luh Acharya PA-C [address] [place] [address] [phone] Medication Refill Social History Tobacco Use Types Packs/Day Years Used Date Smoking Tobacco: Former Cigarettes 1 20 0 03/17/1988 - 03/17/2008 Smokeless Tobacco: Never Alcohol Use Standard Drinks/Week Comments Yes 0 (1 standard drink = 0.6 oz pur e alcohol) 1-2 per week PHQ-2 Answer Date Recorded PHQ-2 Score 2 12/29/2021 Comments No Sex and Gender Information Value Date Recorded Sex Assigned at Female 01/18/2019 9:01 AM CDT Legal Sex Female 3:41 AM DRAFTER REFRIGERATION Gender Identity Female 01/18/2019 9:01 AM CDT Sexual Orientation Straight 01/18/2019 9: 01 AM CDT 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 90 days sent to pharmacy. Please advise pt due for fasting physical further fills. Luh Acharya MBA, MS, PAC[facility]uelo [facility] * Telephone Encounter - Haven Pike CMA [...] be provided Drug does not pass the [facility] refill protocol Thank you! Ellen Lemon RN [facility] Triage documented in this encounter Plan of Treatment Not on file documented as of this encounter Visit Diagnoses Diagnosis Gastroesophageal reflux disease, unspecified whether esophagitis present documented in this encounter Additional Health Concerns Assessment Noted Time PHQ-9 Depression Total Score: 5 10/25/19 22 7:03 AM DRAFTER REFRIGERATION documented as of this encounter Care Teams Take Away Worker Relationship Specialty Start Date End Date Luh Acharya PA-C [address] [place] [address] PCP - General Family Medicine 11/21/21 01/02/23 Toma Arguello NP [address] [place] [address] Nurse Practitioner Nurse Practitioner Psych/Mental Health 04/11/17 Laura Us MD [address] [place] [address] Gastroenterology 12/20/18 Tierra Cancino PA-C [address] [place] [address] Physician Online Facilitator Urology 11/17/21 Tierra Cancino PA-C [address] [place] [address] Assigned Surgical Provider 12/11/21 06/08/23 Luh Acharya PA-C [address] [place] [address] 39410 Assigned PCP 12/23/22 05/18/23 Haven Buckner, APPLICATIONS SYSTEM ANALYST [address] [place] [address] 30487 Assigned PCP 05/19/23 02/05/25 documented as of this encounter
--- OUTSIDE RECORDS SUMMARY | 2025-04-02 11:07 | XMS_ITS | Patient Health Record ---
Author Organization [facility] Address [address] [place] [address] Care Team Providers Care Cardiographer Name Role Phone Kathy Glover Primary Care Provider KARISSA Velasquez Unavailable [phone] Allergies Allergen (clinical drug ingredient) Drug/Non Drug Allergy documented on EMR Reaction Allergy Type Onset Date Status metronidazole Flagyl Unknown Drug Allergy Act danie Adhesive Bandages Unknown Drug Allergy Active Reason For Referral No Information Medications Medication SIG (Take, Route, Frequency, Duration) Notes Start Date End Date Status Metoprolol Succinate ER Active Yzueitnkojfje-Mxqxeknsn-NPOL Active HYDROcodone-Acetaminophen Active Calcium Active Vitamin D3 Active Pantoprazole Sodium Active hydroCHLOROthiazide Active tiZANidine HCl Activ e Venlafaxine HCl ER A ctive Ginkoba Active Gabapentin Active Vitamin D Active Zolpidem Tartrate Ac tive Narcosoft Herbal Lax Active traZODone HCl Active Naproxen Active Social History Social History : Social Info Question Answer Notes How often do you consume alcohol? Answer: less th an 6 per week Recreational drug use Social Info Question Answer Notes Did you ever use recreational drugs? Answer: No Problems Problem Type SNOMED Code ICD Code Onset Dates Problem Status W/U Status Risk Notes Problem Mass in neck (R22.1) Active confirmed Plan Of Treatment No Information Insurance Providers Payer Name Payer Address Payer Phone Subscriber Number Group Number Insured Name Patient Relationship to Insured Coverage Start Date Coverage End Date PREFERRED ONE [address] [facility] [id number] Yenni Dyson Self - patient is the insured Medical (General) History Medical History History ICD Code Sleep apnea Easy bleeding or bruising Surgical History Surgery Date(Month/Year) Back fusion 2016 Tonsilectomy 1974 Appendectomy 1984 Partial hysterectomy 1992
--- OUTSIDE RECORDS SUMMARY | 2025-04-02 11:07 | XMS_ITS | Encounter Summary ---
Author Organization [place] Address [address] [facility] [place] [address] Care Team Providers Care Customs Port Director Name Role Phone Kathy Glover MD Primary Care Provider Toma Arguello NP Unavailable [phone] Kathy Glover MD Unavailable [phone] Laura Us MD Unavailable Luh AcharyaC Unavailable + [phone] Kathy Glover MD Unavailable [phone] Luh AcharyaC Unavailable + [phone] Edward Marlow MD Unavailable [phone] [facility] Primary Care Provider Jas Bojorquez DO Unavailable [phone] Haven Buckner DEPUTY FIRE CHIEF Unavailable [phone] Jenise España MD Unavailable Unavailable Tierra Cancino-C Unavailable [phone] Luh AcharyaC Primary Care Provider + Luh AcharyaC Unavailable + [phone] Tierra Cancino PA-C Unavailable [phone] Haven Buckner CNP Unavailable + Luh Acharya PA-C Unavailable + BucknerHaven lofton CNP Unavailable + Encounter Details Date Type Department Care Team (Late st Contact Info) Description 07/14/2019 MyC Medical Advice [address] [place] [phone] Renay Barlow RN Social History Tobacco Use Types Packs/Day Years Used Date Smoking Tobacco: Former Cigarettes 1 20 0 03/17/1988 - 03/17/2008 Smokeless Tobacco: Never Alcohol Use Standard Drinks/Week Comments Yes 0 (1 standard drink = 0.6 oz pur e alcohol) SOCIAL PHQ-2 Answer Date Recorded PHQ-2 Score 0 07/03/2019 Comments No Sex and Gender Information Value Date Recorded Sex Assigned at Female 01/18/2019 9:01 AM CDT 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 Gender Identity Female 01/18/2019 9:01 AM CDT [...] documented as of this encounter Care Teams Customs Port Director Relationship Specialty Start Date End Date Kathy Glover MD [address] [place] [address] [phone] PCP - General Family Practice 06/03/15 10/05/20 [facility] - [address] [phone] PCP - General 10/06/20 11/20/21 Luh Acharya PA-C [address] [place] [address] 16514 PCP - General Family Medicine 11/21/21 01/02/23 Toma Arguello NP [address] [address] Nurse Practitioner Nurse Practitioner Psych/Mental Health 04/11/17 Kathy Glover MD [address] [place] [address] 18815 Assigned PCP 07/25/15 12/20/19 Laura Us MD [address] [place] [address] 07697 Gastroenterology 12/20/18 Luh Acharya PA-C [address] [place] [address] 18600 Assigned PCP 12/21/19 01/17/20 Kathy Glover MD [address] [place] [address] 55510 Assigned PCP 01/18/20 06/19/20 Luh Acharya PA-C [address] [place] [address] 29207 Assigned PCP 06/20/20 03/31/21 Edward Marlow [place] [address] Assigned Surgical Provider 07/09/20 07/31/20 Jas Bojorquez DO [address] [place] [address] 14108 Assigned PCP 04/01/21 05/21/21 Haven Buckner, DEPUTY FIRE CHIEF [address] [place] [address] 13851 Assigned PCP 05/22/21 11/26/21 Jenise España MD Assigned Heart and Vascular Provider 07/24/21 11/17/22 Tierra Cancino PA-C [address] [place] [address] Physician Sterile Preparation Technician Urology 11/17/21 Luh Acharya PA-C [address] [place] [address] 05995 Assigned PCP 11/27/21 12/31/21 Tierra Cancino PA-C [address] [place] [address] Assigned Surgical Provider 12/11/21 06/08/23 Haven Buckner CNP [address] [place] [address] 24516 Assigned PCP 01/01/22 12/22/22 Luh Acharya PA-C [address] [place] [address] 60640 Assigned PCP 12/23/22 05/18/23 Haven Buckner, DEPUTY FIRE CHIEF [address] [place] [address] 70095 Assigned PCP 05/19/23 02/05/25 documented as of this encounter
--- OUTSIDE RECORDS SUMMARY | 2025-04-02 11:07 | XMS_ITS | Encounter Summary ---
Author Organization [place] Address [address] [facility] [place] [address] Care Team Providers Care Accountant Cost Name Role Phone Kathy Glover MD Primary Care Provider Toma Arguello NP Unavailable Kathy Glover MD Unavailable +[phone] Laura Us MD Unavailable Luh AcharyaC Unavailable + [phone] Kathy Glover MD Unavailable [phone] Luh AcharyaC Unavailable + [phone] Edward Marlow MD Unavailable [phone] [facility] Primary Care Provider Jas Bojorquez DO Unavailable [phone] Haven Buckner MEDICAL ASSISTING INSTRUCTOR Unavailable [phone] Jenise España MD Unavailable Unavailable Tierra Cancino-C Unavailable Luh AcharyaC Primary Care Provider + Luh AcharyaC Unavailable + [phone] Tierra Cancino PA-C Unavailable Haven Buckner CNP Unavailable + Luh Acharya PA-C Unavailable + Haven Buckner CNP Unavailable + Encounter Details Date Type Department Care Team (Late st Contact Info) Description 01/08/2019 MyC Medical Advice [address] [phone] Marcy Smith RN Social History Tobacco Use Types Packs/Day Years Used Date Smoking Tobacco: Former Cigarettes 1 20 0 03/17/1988 - 03/17/2008 Smokeless Tobacco: Never Alcohol Use Standard Drinks/Week Comments Yes 0 (1 standard drink = 0.6 oz pur e alcohol) glass of wine at night PHQ-2 Answer Date Recorded PHQ-2 Score 4 09/24/2018 Comments No Sex and Gender Information Value Date Recorded Sex Assigned at Female 01/18/2019 9:01 AM CDT 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 Female 3:41 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 DATA 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 Gender Identity Female 01/18/2019 9:01 AM CDT [...] Score: 5 11/22/19 19 7:06 AM DIRECTOR DATA ANALYTICS documented as of this encounter Care Teams Accountant Cost Relationship Specialty Start Date End Date Kathy Glover MD [address] [place] [address] [id number] PCP - General Family Practice 06/03/15 10/05/20 [facility] - [address] [phone] PCP - General 10/06/20 11/20/21 Luh Acharya PA-C [address] [place] [address] 61707 PCP - General Family Medicine 11/21/21 01/02/23 Toma Arguello NP [address] [address] Nurse Practitioner Nurse Practitioner Psych/Mental Health 04/11/17 Kathy Glover MD [address] [place] [address] 43023 Assigned PCP 07/25/15 12/20/19 Laura Us MD [address] [place] [address] 81598 Gastroenterology 12/20/18 Luh Acharya PA-C [address] [place] [address] 47204 Assigned PCP 12/21/19 01/17/20 Kathy Glover MD [address] [place] [address] 31715 Assigned PCP 01/18/20 06/19/20 Luh Acharya PA-C [address] [place] [address] 61394 Assigned PCP 06/20/20 03/31/21 Edward Mar[place] [address] Assigned Surgical Provider 07/09/20 07/31/20 Jas Bojorquez DO [address] [place] [address] 35059 Assigned PCP 04/01/21 05/21/21 Haven Buckner, MEDICAL ASSISTING INSTRUCTOR [address] [place] [address] 69335 Assigned PCP 05/22/21 11/26/21 Jenise España MD Assigned Heart and Vascular Provider 07/24/21 11/17/22 Tierra Cancino PA-C [address] [place] [address] Physician Mechanic Field Service Urology 11/17/21 Luh Acharya PA-C [address] [place] [address] 64532 Assigned PCP 11/27/21 12/31/21 Tierra Cancino PA-C [address] [place] [address] Assigned Surgical Provider 12/11/21 06/08/23 Haven Buckner, NICOLE [address] [place] [address] 10484 Assigned PCP 01/01/22 12/22/22 Luh Acahrya PA-C [address] [place] [address], [place] [address] Assigned PCP 12/23/22 05/18/23 Haven Buckner, MEDICAL ASSISTING INSTRUCTOR [address] [place] [address], [place] [address] Assigned PCP 05/19/23 02/05/25 documented as of this encounter
--- OUTSIDE RECORDS SUMMARY | 2025-04-02 11:07 | XMS_ITS | Encounter Summary ---
Author Organization [place] Address [address] [facility] [place] [address] Care Team Providers Care Cable Hooker Name Role Phone Kathy Glover MD Primary Care Provider [place] Arguello NP Unavailable [phone] Kathy Glover MD Unavailable +[phone] Laura Us MD Unavailable Luh AcharyaC Unavailable + [phone] Kathy Glover MD Unavailable +[phone] Luh AcharyaC Unavailable + [phone] Edward Marlow MD Unavailable [phone] [facility] Primary Care Provider Jas Bojorquez DO Unavailable +[phone] Haven Buckner BACK DIGGER OPERATOR Unavailable +[phone] Jenise España MD Unavailable Unavailable Tierra Cancino-C Unavailable Luh AcharyaC Primary Care Provider + Luh AcharyaC Unavailable + [phone] Tierra Cancino PA-C Unavailable Haven Buckner CNP Unavailable [phone] Marck Luhkirsty BAUTISTAC Unavailable [phone] BucknerHaven lofton BACK DIGGER OPERATOR Unavailable +[phone] Reason for Visit * Reason Onset Date Comments MyChart Communication 01/17/2019 Encounter Details Date Type Department Care Team (Late st Contact Info) Description 01/17/2019 MyC Medical Advice [address] [phone] [place] [address] [place] [address] MyChart Communication Social History Tobacco Use [...] AM CDT 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 Dona Smith RN [facility] * Telephone Encounter - Renay Barlow RN - 01/17/2019 4:55 PM CDT MyChart Message sent Awaiting response Renay Barlow RN [facility] * Telephone Encounter - Coty Doan RN - 01/17/2019 9:40 AM CDT Mychart note sent to patient. TAYLA Simmons, RN, [facility] Triage ) [phone] documented in this encounter Plan of Treatment Not on file documented as of this encounter Visit Diagnoses Not on filedocumented in this encounter Additional Health Concerns Infection Onset Date Last Indicated Resolved Time Rule Out COVID-19 06/06/2021 06/06/2021 06/06/2021 5:30 PM CDT Rule Out COVID-19 12/19/2021 12/19/2021 12/20/2021 1:02 PM CDT Assessment Noted Time PHQ-9 Depression Total Score: 5 11/22/19 19 7:06 AM OUTPATIENT SURGERY RN documented as of this encounter Care Teams Cable Hooker Relationship Specialty Start Date End Date Kathy Glover MD [address] [place] [address] [phone] PCP - General Family Practice 06/03/15 10/05/[address] [address] PCP - General 10/06/20 11/20/21 Luh Acharya PA-C [address] [place] [address] 101202 PCP - General Family Medicine 11/21/21 01/02/23 Toma Arguello NP [address] [address] Nurse Practitioner Nurse Practitioner Psych/Mental Health 04/11/17 Kathy Glover MD [address] [place] [address] 99193 Assigned PCP 07/25/15 12/20/19 Laura Us MD [address] [place] [address]3966 Gastroenterology 12/20/18 Luh Acharya PA-C [address] [place] [address] 21701 Assigned PCP 12/21/19 01/17/20 Kathy Glover MD [address] [place] [address] 80741 Assigned PCP 01/18/20 06/19/20 Luh Acharya PA-C [address] [place] [address] 19291 Assigned PCP 06/20/20 03/31/21 [place] [address] Assigned Surgical Provider 07/09/20 07/31/20 Jas Bojorquez DO [address] [place] [address] 25817 Assigned PCP 04/01/21 05/21/21 Haven Buckner, BACK DIGGER OPERATOR [address] [place] [address], [place] [address] Assigned PCP 05/22/21 11/26/21 Jenise España MD Assigned Heart and Vascular Provider 07/24/21 11/17/22 Tierra Cancino PA-C [address] [place] [address] Physician Paper Bag Inspector Urology 11/17/21 Luh Acharya PA-C [address] [place] [address], [place] [address] Assigned PCP 11/27/21 12/31/21 Tierra Cancino PA-C [address] [place] [address] Assigned Surgical Provider 12/11/21 06/08/23 Haven Buckner, NICOLE [address] [place] [address], [place] [address] Assigned PCP 01/01/22 12/22/22 Luh Acharya PA-C [address] [place] [address], [place] [address] Assigned PCP 12/23/22 05/18/23 Haven Buckner, NICOLE [address] [place] [address], [place] [address] Assigned PCP 05/19/23 02/05/25 documented as of this encounter
--- OUTSIDE RECORDS SUMMARY | 2025-04-02 11:07 | XMS_ITS | Encounter Summary ---
Author Organization [place] Address [address] [facility] [place] [address] Care Team Providers Care Patternmaker Sample Name Role Phone Kathy Glover MD Primary Care Provider Toma Arguello NP Unavailable [phone] Kathy Glover MD Unavailable +[phone] Kathy Glover MD Unavailable [phone] Laura Us MD Unavailable Luh Acharya PA-C Unavailable +[phone] Kathy Glover MD Unavailable [phone] Luh Acharya PA-C Unavailable +[phone] Edward Marlow MD Unavailable [facility] Primary Care Provider Jas Bojorquez DO Unavailable [phone] Haven Buckner CNP Unavailable Jenise España MD Unavailable Unavailable Tierra CancinoC Unavailable [phone] Luh Acharya PA-C Primary Care Provider + Luh AcharyaC Unavailable +[phone] Tierra Cancinojose guadalupe BAUTISTAC Unavailable Haven Buckner CNP Unavailable +[phone] Marck Luh DUMONT-C Unavailable +1- BucknerHaven lofton CNP Unavailable +1- Encounter Details Date Type Department Care Team (Late st Contact Info) Description 06/30/2016 MyC Medical Advice [address] [phone] Mahesh Cuevas Jr., MD [address] [place] [address] Social History Tobacco Use Types Packs/Day Years Used Date Smoking Tobacco: Former Cigarettes 1 20 Smokeless Tobacco: Never Alcohol Use Standard Drinks/Week Comments Yes 0 (1 standard drink = 0.6 oz pur e alcohol) 1 glass wine daily Comments No Sex and Gender Information Value Date Recorded Sex Assigned at Female 01/18/2019 9:01 AM CDT 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 Gender Identity Female 01/18/2019 9:01 AM CDT [...] documented as of this encounter Care Teams Patternmaker Sample Relationship Specialty Start Date End Date Kathy Glover MD [address] [place] [address] PCP - General Family Practice 06/03/15 10/05/20 Kathy Glover MD [address] [place] [address] 465122 PCP - Assigned PCP 07/25/15 11/19/[address] [phone] PCP - General 10/06/20 11/20/21 Luh Acharya PA-C [address] [place] [address] 827442 PCP - General Family Medicine 11/21/21 01/02/23 Toma Arguello NP [address] [address] Nurse Practitioner Nurse Practitioner Psych/Mental Health 04/11/17 Kathy Glover MD [address] [place] [address] 52696 Assigned PCP 07/25/15 12/20/19 Laura Us MD [address] [place] [address] 04368 Gastroenterology 12/20/18 Luh Acharya PA-C [address] [place] [address] 03179 Assigned PCP 12/21/19 01/17/20 Kathy Glover MD [address] [place] [address]3515 Assigned PCP 01/18/20 06/19/20 Luh Acharya PA-C [address] [place] [address] 19155 Assigned PCP 06/20/20 03/31/21 Edward Marlow MD [address] [place] [address] Assigned Surgical Provider 07/09/20 07/31/20 Jas Bojorquez DO [address] [place] [address]6417 Assigned PCP 04/01/21 05/21/21 Haven Buckner, NICOLE [address] [place] [address] 13092 Assigned PCP 05/22/21 11/26/21 Jenise España MD Assigned Heart and Vascular Provider 07/24/21 11/17/22 Tierra Cancino PA-C [address] [place] [address] Physician Literacy Specialist Urology 11/17/21 Luh Acharya PA-C [address] [place] [address]76 Assigned PCP 11/27/21 12/31/21 Tierra Cancino PA-C [address] [place] [address] Assigned Surgical Provider 12/11/21 06/08/23 Haven Buckner, NICOLE [address] [place] [address] 32858 Assigned PCP 01/01/22 12/22/22 Luh Acharya PA-C [address] [place] [address] 6[address]64 Assigned PCP 12/23/22 05/18/23 Haven Buckner, NICOLE [address] [place] [address] 23145 Assigned PCP 05/19/23 02/05/25 documented as of this encounter
--- OUTSIDE RECORDS SUMMARY | 2025-04-02 11:07 | XMS_ITS | Encounter Summary ---
Author Organization [place] Address [address] [facility] [place] [address] Care Team Providers Care Trade Sales Assistant Name Role Phone Kathy Glover MD Primary Care Provider [place] Arguello NP Unavailable [phone] Kathy Glover MD Unavailable +[phone] Kathy Glover MD Unavailable [phone] Laura Us MD Unavailable Luh Acharya PA-C Unavailable +[phone] Kathy Glover MD Unavailable [phone] Luh Acharya PA-C Unavailable +[phone] Edward Marlow MD Unavailable [phone] [facility] Primary Care Provider Jas Bojorquez DO Unavailable [phone] Haven Buckner CNP Unavailable Jenise España MD Unavailable Unavailable Tierra CancinoC Unavailable Luh Acharya PA-C Primary Care Provider + Luh Acharya-C Unavailable [phone] Tierra Cancinovandana DUMONT-C Unavailable BucknerHaven Meaghan CNP Unavailable +[phone] Luh Acharya Enedina DUMONT-C Unavailable [phone] Haven Bucknerlolita RIVERA Unavailable [phone] Reason for Visit * Reason Onset Date Comments MyChart Communication 01/18/2017 referrals Encounter Details Date Type Department Care Team (Late st Contact Info) Description 01/18/2017 MyC Medical Advice [address] [phone] [place] [address] [place] [address] MyChart Communication (referrals) Social History Tobacco [...] AM CDT 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 Female 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 AM 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 Gender Identity Female 01/18/2019 9:01 AM CDT [...] documented as of this encounter Care Teams Trade Sales Assistant Relationship Specialty Start Date End Date Kathy Glover MD [address] [place] [address] PCP - General Family Practice 06/03/15 10/05/20 Kathy Glover MD [address] [place] [address] [phone] PCP - Assigned PCP 07/25/15 11/19/[address] [phone] PCP - General 10/06/20 11/20/21 Luh Acharya PA-C [address] [place] [address] [phone] PCP - General Family Medicine 11/21/21 01/02/23 Toma Arguello NP [address] 598477 Nurse Practitioner Nurse Practitioner Psych/Mental Health 04/11/17 Kathy Glover MD [address] [place] [address] [phone] Assigned PCP 07/25/15 12/20/19 Laura Us MD [address] [place] [address] 555992 Gastroenterology 12/20/18 Luh Acharya PA-C [address] [place] [address] 087572 Assigned PCP 12/21/19 01/17/20 Kathy Glover MD [address] [place] [address] 448202 Assigned PCP 01/18/20 06/19/20 Luh Acharya PA-C [address] [place] [address] 523902 Assigned PCP 06/20/20 03/31/21 Edward Marlow MD [address] [place] [address] Assigned Surgical Provider 07/09/20 07/31/20 Jas Bojorquez DO [address] [place] [address] [phone] Assigned PCP 04/01/21 05/21/21 Haven Buckner, COIL ASSEMBLER [address] [place] [address] [phone] Assigned PCP 05/22/21 11/26/21 Jenise España MD Assigned Heart and Vascular Provider 07/24/21 11/17/22 Tierra Cancino PA-C [address] [facility] [address] Physician Medical Care Manager Urology 11/17/21 Luh Acharya PA-C [address] [place] [address], [place] [address] Assigned PCP 11/27/21 12/31/21 Tierra Cancino PA-C [address] [place] [address] Assigned Surgical Provider 12/11/21 06/08/23 Haven Buckner, COIL ASSEMBLER [address] [place] [address], [place] [address] Assigned PCP 01/01/22 12/22/22 Luh Acharya PA-C [address] [place] [address], [place] [address] Assigned PCP 12/23/22 05/18/23 Haven Buckner, COIL ASSEMBLER [address] [place] [address], [place] [address] Assigned PCP 05/19/23 02/05/25 documented as of this encounter
--- OUTSIDE RECORDS SUMMARY | 2025-04-02 11:07 | XMS_ITS | Encounter Summary ---
Author Organization [place] Address [address] [facility] [place] [address] Care Team Providers Care Electric Sign Wirer Name Role Phone Kathy Glover MD Primary Care Provider Toma Arguello NP Unavailable [phone] Kathy Glover MD Unavailable [phone] Kathy Glover MD Unavailable [phone] Laura Us MD Unavailable Luh Acharya PA-C Unavailable [phone] Kathy Glover MD Unavailable [phone] Luh Acharya PA-C Unavailable [phone] Edward Marlow MD Unavailable [facility] Primary Care Provider Jas Bojorquez DO Unavailable [phone] Haven Buckner CNP Unavailable Jenise España MD Unavailable Unavailable Tierra CancinoC Unavailable Luh Acharya PA-C Primary Care Provider + Luh Acharya-C Unavailable [phone] Tierra Cancino TIM-C Unavailable SitaHaven Meaghan VULCANIZING MACHINE OPERATOR Unavailable [phone] Luh Acharya Enedina PA-C Unavailable [phone] Haven Bucknerth VULCANIZING MACHINE OPERATOR Unavailable [phone] Reason for Visit * Reason Onset Date Comments MyChart Communication 02/22/[address] recommendation Encounter Details Date Type Department Care Team (Late st Contact Info) Description 02/22/2017 MyC Medical Advice [address] [address] [place] [address] [place] [address] MyChart Communication (psychiatrist recomm... 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 Dona Smith RN * Telephone Encounter - Marcy Smith RN - 02/22/2017 11:20 AM CDT Routing to PCP for further review/recommendations/orders. Dona Batdorf, RN documented in this encounter Plan of [...] as of this encounter Care Teams Electric Sign Wirer Relationship Specialty Start Date End Date Kathy Glover MD [address] [place] [address]231 PCP - General Family Practice 06/03/15 10/05/20 Kathy Glover MD [address] [place] [address] 25275 PCP - Assigned PCP 07/25/15 11/19/[address] 383182 PCP - General 10/06/20 11/20/21 Luh Acharya PA-C [address] [place] [address] [phone] PCP - General Family Medicine 11/21/21 01/02/23 Toma Arguello NP [address] [address] Nurse Practitioner Nurse Practitioner Psych/Mental Health 04/11/17 Kathy Glover MD [address] [place] [address], [place] [address] Assigned PCP 07/25/15 12/20/19 Laura Us MD [address] [place] [address], [place] [address] Gastroenterology 12/20/18 Luh Acharya PA-C [address] [place] [address], [place] [address] Assigned PCP 12/21/19 01/17/20 Kathy Glover MD [address] [place] [address], [place] [address] Assigned PCP 01/18/20 06/19/20 Luh Acharya PA-C [address] [place] [address], [place] [address] Assigned PCP 06/20/20 03/31/21 Edward [place] [address] Assigned Surgical Provider 07/09/20 07/31/20 Jas Bojorquez DO [address] [place] [address], [place] [address] Assigned PCP 04/01/21 05/21/21 Haven Buckner, VULCANIZING MACHINE OPERATOR [address] [place] [address], [place] [address] Assigned PCP 05/22/21 11/26/21 Jenise España MD Assigned Heart and Vascular Provider 07/24/21 11/17/22 Tierra Cancino PA-C [address] [place] [address] Physician Park Interpreter Urology 11/17/21 Luh Acharya PA-C [address] [place] [address]702 Assigned PCP 11/27/21 12/31/21 Tierra Cancino PA-C [address] [place] [address] Assigned Surgical Provider 12/11/21 06/08/23 Haven Buckner, NICOLE [address] [place] [address] 16164 Assigned PCP 01/01/22 12/22/22 Luh Acharya PA-C [address] [place] [address] Assigned PCP 12/23/22 05/18/23 Haven Buckner, NICOLE [address] [place] [address] Assigned PCP 05/19/23 02/05/25 documented as of this encounter
--- OUTSIDE RECORDS SUMMARY | 2025-04-02 11:07 | XMS_ITS | Encounter Summary ---
Author Organization [place] Address [address] [facility] [place] [address] Care Team Providers Care Customer Training Specialist Name Role Phone Kathy Glover MD Primary Care Provider Toma Arguello NP Unavailable [phone] Kathy Glover MD Unavailable [phone] Laura Us MD Unavailable Luh AcharyaC Unavailable + [phone] Kathy Glover MD Unavailable [phone] Luh AcharyaC Unavailable + [phone] Edward Marlow MD Unavailable [phone] [facility] Primary Care Provider Jas Bojorquez DO Unavailable [phone] Haven Buckner NUT PACKER Unavailable [phone] Jenise España MD Unavailable Unavailable Tierra Cancino-C Unavailable Luh AcharyaC Primary Care Provider + Luh AcharyaC Unavailable + [phone] Tierra CancinoC Unavailable Haven Buckner CNP Unavailable +-[phone] Luh Acharya PA-C Unavailable +1 BucknerHaven lofton CNP Unavailable +- Reason for Visit * Reason Onset Date Comments MyChart Communication 01/09/2019 fibromyalg ia testing Encounter Details Date Type Department Care Team (Latest Contact Info) Description 01/09/2019 MyC Medical Advice [address] [address] Marcy Smith, RN MyChart Communication (fibromyalgia testing) Social History Tobacco [...] AM CDT Legal Sex Female 3:41 AM 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 Dona Smith RN [place] Triage documented in this encounter Plan of [...] Total Score: 5 11/22/19 19 7:06 AM GRAIN ELEVATOR OPERATOR documented as of this encounter Care Teams Customer Training Specialist Relationship Specialty Start Date End Date Kathy Glover MD [address] [place] [address] PCP - General Family Practice 06/03/15 10/05/[address] 553132 PCP - General 10/06/20 11/20/21 Luh Acharya PA-C [address] [place] [address] 580352 PCP - General Family Medicine 11/21/21 01/02/23 Toma Arguello NP [address] 249797 Nurse Practitioner Nurse Practitioner Psych/Mental Health 04/11/17 Kathy Glover MD [address] [place] [address] 930762 Assigned PCP 07/25/15 12/20/19 Laura Us MD [address] [place] [address] [phone] Gastroenterology 12/20/18 Luh Acharya, PA-C [address] [place] [address] 173112 Assigned PCP 12/21/19 01/17/20 Kathy Glover MD [address] [place] [address] 568242 Assigned PCP 01/18/20 06/19/20 Luh Acharya PA-C [address] [place] [address] [phone] Assigned PCP 06/20/20 03/31/21 [place] [address] Assigned Surgical Provider 07/09/20 07/31/20 Jas Bojorquez DO [address] [place] [address] [phone] Assigned PCP 04/01/21 05/21/21 Haven Buckner, NUT PACKER [address] [place] [address] [phone] Assigned PCP 05/22/21 11/26/21 Jenise España MD Assigned Heart and Vascular Provider 07/24/21 11/17/22 Tierra Cancino PA-C [address] [phone] Physician Language Tutor Urology 11/17/21 Luh Acharya PA-C [address] [place] [address] Assigned PCP 11/27/21 12/31/21 Tierra Cancino PA-C [address] [place] [address] Assigned Surgical Provider 12/11/21 06/08/23 Haven Buckner, NUT PACKER [address] [place] [address] Assigned PCP 01/01/22 12/22/22 Luh Acharya PA-C [address] [place] [address]79 Assigned PCP 12/23/22 05/18/23 Haven Buckner, NUT PACKER [address] [place] [address] Assigned PCP 05/19/23 02/05/25 documented as of this encounter
--- OUTSIDE RECORDS SUMMARY | 2025-04-02 11:07 | XMS_ITS | Encounter Summary ---
Author Organization [place] Address [address] [facility] [place] [address] Care Team Providers Care Paint Roller Covers Supervisor Name Role Phone Kathy Glover MD Primary Care Provider Toma Arguello NP Unavailable [phone] Kathy Glover MD Unavailable [phone] Kathy Glover MD Unavailable [phone] Laura Us MD Unavailable Luh Acharya PA-C Unavailable [phone] Kathy Glover MD Unavailable [phone] Luh Acharya PA-C Unavailable [phone] dEward Marlow MD Unavailable [facility] Primary Care Provider Jas Bojorquez DO Unavailable [phone] Haven Buckner CNP Unavailable Jenise España MD Unavailable Unavailable Tierra CancnioC Unavailable Luh Acharya PA-C Primary Care Provider + Luh Acharya-C Unavailable [phone] Tierra Cancinojose guadalupe DUMONT-C Unavailable Haven Buckner CNP Unavailable +[phone] Marck Luh DUMONT-C Unavailable +1- BucknerHaven lofton CNP Unavailable +1- Encounter Details Date Type Department Care Team (Late st Contact Info) Description 02/28/2017 MyC Medical Advice [address] [address] Marcy Smith RN Social History Tobacco Use Types Packs/Day Years Used Date Smoking Tobacco: Former Cigarettes 1 20 Smokeless Tobacco: Never Alcohol Use Standard Drinks/Week Comments Yes 0 (1 standard drink = 0.6 oz pur e alcohol) 1 glass wine daily Comments No Sex and Gender Information Value Date Recorded Sex Assigned at Female 01/18/2019 9:01 AM CDT Legal Sex Female 3:41 AM 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 CAPTAIN Gender Identity Female 01/18/2019 9:01 AM CDT [...] documented as of this encounter Care Teams Paint Roller Covers Supervisor Relationship Specialty Start Date End Date Kathy Glover MD [address] [place] [address] [phone] PCP - General Family Practice 06/03/15 10/05/20 Kathy Glover MD [address] [place] [address] PCP - Assigned PCP 07/25/15 11/19/[address] [address] PCP - General 10/06/20 11/20/21 Luh Acharya PA-C [address] [place] [address] 94[address] PCP - General Family Medicine 11/21/21 01/02/23 Toma Arguello NP [address] [phone] Nurse Practitioner Nurse Practitioner Psych/Mental Health 04/11/17 Kathy Glover MD [address] [place] [address] 49796 Assigned PCP 07/25/15 12/20/19 Laura Us MD [address] [place] [address] 09387 Gastroenterology 12/20/18 Luh Acharya PA-C [address] [place] [address] 44422 Assigned PCP 12/21/19 01/17/20 Kathy Glover MD [address] [place] [address] 21633 Assigned PCP 01/18/20 06/19/20 Luh Acharya PA-C [address] [place] [address] Assigned PCP 06/20/20 03/31/21 Edward [place] [address] Assigned Surgical Provider 07/09/20 07/31/20 Jas Bojorquez DO [address] [place] [address] [phone] Assigned PCP 04/01/21 05/21/21 Haven Buckner, CARD MOUNTER [address] [place] [address] 740502 Assigned PCP 05/22/21 11/26/21 Jenise España MD Assigned Heart and Vascular Provider 07/24/21 11/17/22 Tierra Cancino PA-C [address] [place] [address] Physician Department Administrator Urology 11/17/21 Luh Acharya PA-C [address] [place] [address] Assigned PCP 11/27/21 12/31/21 Tierra Cancino PA-C [address] [place] [address] Assigned Surgical Provider 12/11/21 06/08/23 Haven Buckner, CARD MOUNTER [address] [place] [address] Assigned PCP 01/01/22 12/22/22 Luh Acharya PA-C [address] [place] [address], [place] [address] Assigned PCP 12/23/22 05/18/23 Haven Buckner, CARD MOUNTER [address] [place] [address], [place] [address] Assigned PCP 05/19/23 02/05/25 documented as of this encounter
--- OUTSIDE RECORDS SUMMARY | 2025-04-02 11:07 | XMS_ITS | Encounter Summary ---
Author Organization [place] Address [address] [facility] [place] [address] Care Team Providers Care Filling Mixer Name Role Phone Kathy Glover MD Primary Care Provider Toma Arguello NP Unavailable Kathy Glover MD Unavailable [phone] Kathy Glover MD Unavailable [phone] Laura Us MD Unavailable Luh Acharya PA-C Unavailable [phone] Kathy Glover MD Unavailable [phone] Luh Acharya PA-C Unavailable [phone] Edward Marlow MD Unavailable [facility] Primary Care Provider Jas Bojorquez DO Unavailable [phone] Haven Buckner CNP Unavailable Jenise España MD Unavailable Unavailable Tierra CancinoC Unavailable Luh Acharya PA-C Primary Care Provider + Luh Acharya-C Unavailable [phone] Tierra Cancino MICHELEC Unavailable Haven Buckner CNP Unavailable [phone] Luh Acharya-C Unavailable [phone] BucknerHaven lofton CNP Unavailable [phone] Reason for Visit * Reason Onset Date Comments MyChart Communication 01/23/2017 Re: TIM for Midtheresa Encounter Details Date Type Department Care Team (Late st Contact Info) Description 01/23/2017 [facility] Medical Advice [address] [address] Kathy Glover MD [address] [place] [address] MyChart Communication (Re: TIM for Midrin) [...] AM CDT Legal Sex Female 3:41 AM 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 You can call [phone] and ask that on-call provider be paged. Coty Doan, BS, RN, PHN [place] Triage * Telephone Encounter - Coty Doan RN - 01/26/2017 4:17 PM CDT VM left for nurses line at [facility] to call us back. Detailed message left with PCP note below. Coty Doan, BS, RN, PHN [place] Triage * Telephone Encounter - Kathy Glover MD - 01/26/2017 3:26 PM CDT BP Readings from Last 6 Encounters: 01/05/17 130/80 10/16/16 132/85 09/16/16 116/82 07/14/16 116/66 07/07/16 116/66 06/30/16 120/86 bp well controlled. Please call [facility] re: pt's increasing creatinine and decreasing [...] review patient's Mychart message and advise. Coty Doan RN, BS, PHN * Telephone Encounter - [...] documented as of this encounter Care Teams Filling Mixer Relationship Specialty Start Date End Date Kathy Glover MD [address] [place] [address] [phone] PCP - General Family Practice 06/03/15 10/05/20 Kathy Glover MD [address] [place] [address] [phone] PCP - Assigned PCP 07/25/15 11/19/[address] 334982 PCP - General 10/06/20 11/20/21 Luh Acharya PA-C [address] [place] [address] PCP - General Family Medicine 11/21/21 01/02/23 Toma Arguello NP [address] 849277 Nurse Practitioner Nurse Practitioner Psych/Mental Health 04/11/17 Kathy Glover MD [address] [place] [address] Assigned PCP 07/25/15 12/20/19 Laura Us MD [address] [place] [address] Gastroenterology 12/20/18 Luh Acharya PA-C [address] [place] [address] 45261 Assigned PCP 12/21/19 01/17/20 Kathy Glover MD [address] [place] [address] Assigned PCP 01/18/20 06/19/20 Luh Acharya PA-C [address] [place] [address] 79366 Assigned PCP 06/20/20 03/31/21 Edward Marlow MD [address] [place] [address]643 Assigned Surgical Provider 07/09/20 07/31/20 Jas Bojorquez DO [address] [place] [address] Assigned PCP 04/01/21 05/21/21 Haven Buckner, GROOVER AND STRIPER OPERATOR [address] [place] [address] Assigned PCP 05/22/21 11/26/21 Jenise España MD Assigned Heart and Vascular Provider 07/24/21 11/17/22 Tierra Cancino PA-C [address] [place] [address] Physician Prepared Foods Service Team Member Urology 11/17/21 Luh Acharya PA-C [address] [place] [address] Assigned PCP 11/27/21 12/31/21 Tierra Cancino PA-C [address] [place] [address] Assigned Surgical Provider 12/11/21 06/08/23 Haven Buckner, NICOLE [address] [place] [address] 46721 Assigned PCP 01/01/22 12/22/22 Luh Acharya PA-C [address] [place] [address] 19849 Assigned PCP 12/23/22 05/18/23 Haven Buckner, GROOVER AND STRIPER OPERATOR [address] [place] [address] Assigned PCP 05/19/23 02/05/25 documented as of this encounter
--- OUTSIDE RECORDS SUMMARY | 2025-04-02 11:07 | XMS_ITS | Clinical Summary ---
Author Organization [employer] Address [address] [place] [address] Care Team Providers Care Dental Prosthetist Name Role Phone Kathy Glover MD Primary Care Provider [phone] Allergies Active Allergy Reactions Criticality Noted Date Comments Ciprofloxacin Itching 07/23/2017 Cipro and flagyl together Metronidazole In Nacl (Iso-Os) Itching 07/23/2017 Cipro and Flagyl together. Medications MULTIVIT,THX,C ALCIUM,IRON,IA NS (THERA PAUL M ORAL) Take 1 tablet by mouth once daily. Active omega-3 fatty acids (FISH OIL) cap Take 1,000 mg by mouth once daily. Active DULoxetine (CYMBALTA) 60 mg Delayed-releas e capsule Take 60 mg by mouth 2 times daily. Active traZODone (DESYREL) 100 mg tablet Take 100 mg by mouth at bedtime if needed for Sleep. Active HYDROcodone-ac etaminophen, 10-325 mg, (NORCO) 10-325 mg per tablet [...] capsule by mouth once daily. Active CALCIUM CITRATE/VITAMI N D3 (CALCIUM CITRATE + D ORAL) Take [...] 1 TIME PER DAY AT BEDTIME 0 8 Active HYDROcodone-ac etaminophen, 5-325 mg, (NORCO) per tablet TK 1 T PO Q 8 H PRF PAIN. MAX 3 PER DAY 0 8 Active Multivits,Ca,M fshpszu-Tzlx-X A (THERA M PLUS, FERROUS FUMARAT,) 9 mg iron-400 mcg tablet Take 1 tablet by mouth. Active omega 8-bao-kwr-fish oil (FISH OIL) 300-1,000 mg cpDR Take 1,000 mg by mouth. Active AFLURIA QUAD 9148-3839, PF, 60 mcg/0.5 mL IM syringe ADM 0.5ML IM UTD 0 8 Active buPROPion (WELLBUTRIN XL) 300 mg Extended-Relea se tablet TK 1 T PO 1 TIME PER DAY IN THE MORNING 0 8 Active amitriptyline (ELAVIL) 25 mg tablet TK 1 - 2 TS PO HS. 0 8 Active lisinopril-hyd rochlorothiazi de (10-12.5 mg) tablet (PRINZIDE; ZESTORETIC)Ind ications:Acute chest pain,Hypertens ion Take 1 Tablet by mouth once daily. 30 Tablet 1 Active Active Problems Problem Noted Date Diagnosed Date Lumbar pseudoarthrosis Immunizations Immunization Administration Dates Next Due Influenza Virus, Unspecified 07/03/2014,08/15/20 11 Influenza, IIV3 (Age >=3 years) 07/12/2013,09/30 Influenza, IIV4 07/25/2017,07/14/2016,07/02/2015 Tdap 08/15/2011 Social History Tobacco Use Types Packs/Day Years Used Date Smoking Tobacco: Former Cigarettes 1 20 Smokeless Tobacco: Never Alcohol Use Standard Drinks/Week Comments Yes 0 (1 standard drink = 0.6 oz pur e alcohol) glass wine daily Comments No Sex and Gender Information Value Date Recorded Sex Assigned at Not on file Legal Sex Female 6:50 AM MORTGAGE LOAN ORIGINATOR Gender Identity Not on file Sexual Orientation Not on file Obstetrics History Last Filed Vital Signs Vital Sign Reading Time Taken Comments Blood Pressure 132/81 05/27/2021 1:36 PM CDT Pulse 68 05/27/2021 11:52 AM CDT Temperature 36.6 C (97.8 F) 05/27/2021 9:38 AM CDT Respiratory Rate 18 05/27/2021 9:38 AM CDT [...] age 18+ 1987 Hepatitis C screening for ag e 18-79 1987 Hepatitis B series for 19+ ( 1 of 3 - 19+ 3-dose series) 1988 Colonoscopy through age 75 2014 Lipids for age 45-75 2014 Mammogram for age 45-75 2014 Pneumococcal series for age 50+ (1 of 1 - PCV) 2019 Zoster (shingles) series for age 50+ (1 of 2) 2019 Tetanus booster 08/15/2021 08/15/2011 COVID-19 vaccine series ( - 2023- season) 2024 11/15/2021, 01/30/2021, 01/09/2021 Influenza Vaccine (#1) 2025 7, 07/14/2016, 07/02/2015, Additional history exists Pap test for age 21-65 11/21/2026 11/22/2023, 2023 Medical Devices Implanted Type Area Hot Dip Plater Device Identifier Shelf Expiration Date Model / Serial / Lot Bone Matrix Md Infuse Bmp - [id number] Implanted:Qty: 1 on 07/24/2017 by Danish Sosa MD at [facility] N/A: Spine Medtronic Spine/Ortho 11/14/2018 [id number]# / / [id number] Bone 15cc Allosource Crushed Canclls - [id number] Implanted:Qty: 1 on 07/24/2017 by Danish Sosa MD at [facility] N/A: Spine Allosource 11/21/2020 [id number]# / / [id number] Bone Matrix 5cc Progenix Plus Putty Dbm - [id number] Implanted:Qty: 1 on 07/24/2017 by Danish Sosa MD at [facility] N/A: Spine Medtronic Spine/Ortho 12/27/2018 [id number]# / / [id number] Plate Lmbr Garrett-L Stand Alone Lock - [id number] Implanted:Qty: 1 on 07/24/2017 by Danish Sosa MD at [facility] N/A: Spine [employer] Spine [id number] 00# / / Screw Lmbr 6x25mm Ancr-L Standalone - [id number] Implanted:Qty: 3 on 07/24/2017 by Danish Sosa MD at [facility] N/A: Spine [employer] Spine [id number]# / / Spacer Lmbr [id number] 12deg Avs-L Stand Alone - [id number] Implanted:Qty: 1 on 07/24/2017 by Danish Sosa MD at [facility] N/A: Spine [employer] Spine [id number] 62# / / Explanted Type Area Hot Dip Plater Device Identifier Shelf Expiration Date Model / Serial / Lot Hardware Removal Explanted:Qty: 1 on 07/24/2017 by Danish Sosa MD at [facility] N/A: Spine Description:One Piece Spinal Hardware Removed Procedures Procedure Name Priority Date/Time Associated Diagnosis Comments HPV HIGH RISK Routine 11/22/2023 8:06 AM MORTGAGE LOAN ORIGINATOR from Last 3 Months or Most Recently Relevant to Health Maintenance Results * HPV HIGH RISK (11/22/2023 8:06 AM MORTGAGE LOAN ORIGINATOR) TYPE 16 Negative Negative 11/26/2023 5:04 PM CDT [facility] TYPE 18 Negative Negative 11/26/2023 5:04 PM CDT [facility] OTHER HIGH RISK TYPES Negative Negative 11/26/2023 5:04 PM CDT [facility] TRA [facility] Other (Cervical/Vagina l) 11/22/2023 8:06 AM MORTGAGE LOAN ORIGINATOR 11/23/2023 8:22 AM MORTGAGE LOAN ORIGINATOR Narrative [facility] - 11/26/2023 5:04 PM CDT HPV types 16, 18, 31, 33, 35, 39, 45, 51, 52, 56, 58, 59, 66 and 68 DNA were undetectable or below the pre-set threshold. Methodology: Duane Fatoumata 4800 HPV Test us Lela Giraldo MD MICROBIOLOGY Final Re sult [facility] [address] [place] [address], from Last 3 Months or Most Recently Relevant to Health Maintenance Advance Directives * Full Code (Latest Code Status on File) Date Activated Date Inactivated Comments 09/27/2018 3:08 PM 09/27/2018 5:47 PM Care Teams Dental Prosthetist Relationship Specialty Start Date End Date Kathy Glover MD PCP - General Family Practice 09/25/18
--- OUTSIDE RECORDS SUMMARY | 2025-04-02 11:07 | XMS_ITS | Encounter Summary ---
Author Organization [place] Address [address] [place] [address] Care Team Providers Care Slipper Maker Name Role Phone Toma Arguello YESICA Unavailable [phone] Laura Us MD Unavailable [facility] Primary Care Provider Jas Bojorquez DO Unavailable [phone] lofton BUMBOATER Unavailable +[phone] Jenise España MD Unavailable Unavailable Tierra Cancino PA-C Unavailable [phone] Luh Acharya-C Primary Care Provider + Luh Acharya-C Unavailable + [phone] Tierra Cancino-C Unavailable [phone] Haven Buckner BUMBOATER Unavailable +[phone] Luh Acharya-C Unavailable + [phone] Haven Buckner CNP Unavailable +[phone] Encounter Details Date Type Department Care Team (Late st Contact Info) Description 04/15/2021 [facility] Medical Advice [address] [place] [address] Luh Acharya PA-C [address] [place] [address] [id number] Social History Tobacco Use Types Packs/Day Years Used Date Smoking Tobacco: Former Cigarettes 1 20 0 03/17/1988 - 03/17/2008 Smokeless Tobacco: Never Alcohol Use Standard Drinks/Week Comments Yes 0 (1 standard drink = 0.6 oz pur e alcohol) 1-2 per week PHQ-2 Answer Date Recorded PHQ-2 Score 0 02/22/2021 Comments No Sex and Gender Information Value Date Recorded Sex Assigned at Female 01/18/2019 9:01 AM CDT Legal Sex Female 3:41 AM JAVA SECURITY ENGINEER Gender Identity Female 01/18/2019 9:01 AM CDT [...] sent Awaiting reply Manisha Patel RN, BSN [facility] Triage documented in this encounter Plan [...] documented as of this encounter Care Teams Slipper Maker Relationship Specialty Start Date End Date Clinic - Home [facility] [address] [address] PCP - General 10/06/20 11/20/21 Luh Acharya PA-C [address] [place] [address] PCP - General Family Medicine 11/21/21 01/02/23 Toma Arguello, SALES REPRESENTATIVE SUPERVISOR [place] [address] [place] [address] Nurse Practitioner Nurse Practitioner Psych/Mental Health 04/11/17 Laura Us MD [place] [address] [place] [address] Gastroenterology 12/20/18 Jas Bojorquez DO [address] [place] [address] Assigned PCP 04/01/21 05/21/21 Haven Buckner, NICOLE [address] [place] [address] Assigned PCP 05/22/21 11/26/21 Jenise España MD Assigned Heart and Vascular Provider 07/24/21 11/17/22 Tierra Cancino PA-C [address] [place], [place] [phone] Physician Heavy Media Operator Urology 11/17/21 Luh Acharya PA-C [address] [place] [address] Assigned PCP 11/27/21 12/31/21 Tierra Cancino PA-C [address] [place] [address] Assigned Surgical Provider 12/11/21 06/08/23 Haven Buckner, BUMBOATER [address] [place] [address] Assigned PCP 01/01/22 12/22/22 Luh Acharya PA-C [address] [place] [address] Assigned PCP 12/23/22 05/18/23 Haven Buckner, BUMBOATER [address] [place] [address] Assigned PCP 05/19/23 02/05/25 documented as of this encounter
--- OUTSIDE RECORDS SUMMARY | 2025-04-02 11:07 | XMS_ITS | Encounter Summary ---
Author Organization [place] Address [address] [place] [address] Care Team Providers Care Song Plugger Name Role Phone Kathy Glover MD Primary Care Provider Toma Arguello NP Unavailable [phone] Kathy Glover MD Unavailable [phone] Kathy Glover MD Unavailable [phone] Laura Us MD Unavailable Luh Acharya PA-C Unavailable +[phone] Kathy Glover MD Unavailable [phone] Luh Acharya PA-C Unavailable +[phone] Edward Marlow MD Unavailable [phone] [facility] Primary Care Provider Jas Bojorquez DO Unavailable [phone] Haven Buckner CNP Unavailable Jenise España MD Unavailable Unavailable Tierra CancinoC Unavailable Luh Acharya PA-C Primary Care Provider + Luh Acharya-C Unavailable [phone] Tierra Cancinovandana BAUTISTAC Unavailable BucknerHaven lofton Meaghan CNP Unavailable +-2 Luh Acharya Enedina DUMONT-C Unavailable + Sita Haven Harding CNP Unavailable +- Reason for Visit * Reason Onset Date Comments Medication Request 05/23/2016 Encounter Details Date Type Department Care Team (Late st Contact Info) Description 05/23/2016 [facility] Medical Advice [address] [phone] Dona Davidson, roving hauler Request Social History Tobacco Use Types Packs/Day Years Used Date Smoking Tobacco: Former Cigarettes 1 20 Smokeless Tobacco: Never Alcohol Use Standard Drinks/Week Comments Yes 0 (1 standard drink = 0.6 oz pur e alcohol) 1 glass wine daily Comments No Sex and Gender Information Value Date Recorded Sex Assigned at Female 01/18/2019 9:01 AM CDT Legal Sex Female 3:41 AM SENIOR INSTRUCTIONAL DESIGNER Gender Identity Female 01/18/2019 9:01 AM CDT Sexual Orientation Straight 01/18/2019 9: 01 AM CDT documented as of this encounter Miscellaneous Notes * Telephone Encounter - Dona Davidson RN - 06/01/2016 4:28 PM CDT Medication had been sent to Luh Acharya for review and refilled Dona Davidson RN, BSN [facility] documented in this encounter Plan of [...] documented as of this encounter Care Teams Song Plugger Relationship Specialty Start Date End Date Kathy Glover MD [address] [place] [address] PCP - General Family Practice 06/03/15 10/05/20 Kathy Glover MD [address] [place] [address] PCP - Assigned PCP 07/25/15 11/19/[address] [address] PCP - General 10/06/20 11/20/21 Luh Ahcarya PA-C [address] [place] [address] PCP - General Family Medicine 11/21/21 01/02/23 Toma Arguello NP [address] [address] Nurse Practitioner Nurse Practitioner Psych/Mental Health 04/11/17 Kathy Glover MD [address] [place] [address] Assigned PCP 07/25/15 12/20/19 Laura Us MD [address] [place] [address] Gastroenterology 12/20/18 Luh Acharya PA-C [address] [place] [address], [place] [address] Assigned PCP 12/21/19 01/17/20 Kathy Glover MD [address] [place] [address] Assigned PCP 01/18/20 06/19/20 Luh Acharya PA-C [address] [place] [address] 720162 Assigned PCP 06/20/20 03/31/21 Edward Marlow [place] [address] Assigned Surgical Provider 07/09/20 07/31/20 Jas Bojorquez DO [address] [place] [address] 589182 Assigned PCP 04/01/21 05/21/21 Haven Buckner, NICOLE [address] [place] [address] 971782 Assigned PCP 05/22/21 11/26/21 Jenise España MD Assigned Heart and Vascular Provider 07/24/21 11/17/22 Tierra Cancino PA-C [address] [place] [address] Physician Scuba Instructor Urology 11/17/21 Luh Acharya PA-C [address] [place] [address] Assigned PCP 11/27/21 12/31/21 Tierra Cancino PA-C [address] [place] [place] [address] Assigned Surgical Provider 12/11/21 06/08/23 Haven Buckner, ESTIMATING ENGINEER [address] [place] [address], [place] [address] Assigned PCP 01/01/22 12/22/22 Luh Acharya PA-C [address] [place] [address], [place] [address] Assigned PCP 12/23/22 05/18/23 Haven Buckner, ESTIMATING ENGINEER [address] [place] [address], [place] [address] Assigned PCP 05/19/23 02/05/25 documented as of this encounter
--- OUTSIDE RECORDS SUMMARY | 2025-04-02 11:07 | XMS_ITS | Encounter Summary ---
Author Organization [place] Address [address] [facility] [place] [address] Care Team Providers Care Industrial Trainer Name Role Phone Kathy Glover MD Primary Care Provider Toma Arguello NP Unavailable [phone] Laura Us MD Unavailable Luh Acharya-C Unavailable +[phone] Kathy Glover MD Unavailable +[phone] Luh Acharya-C Unavailable + [phone] Edward Marlow MD Unavailable [phone] [facility] Primary Care Provider Jas Bojorquez DO Unavailable [phone] Haven Buckner CNP Unavailable [phone] Jenise España MD Unavailable Unavailable Tierra Cancino-C Unavailable [phone] Luh Acharya-C Primary Care Provider + Luh Acharya-C Unavailable + [phone] Tierra Cancino-C Unavailable [phone] BucknerHaven lofton CNP Unavailable + Luh Acharya PA-C Unavailable +[phone] SitaHavenzarosa maria RIVERA Unavailable [phone] Encounter Details Date Type Department Care Team (Late st Contact Info) Description 01/09/2020 [facility] Medical Advice [address] [phone] Amber Marc Social History Tobacco Use Types Packs/Day Years Used Date Smoking Tobacco: Former Cigarettes 1 20 0 03/17/1988 - 03/17/2008 Smokeless Tobacco: Never Alcohol Use Standard Drinks/Week Comments Yes 0 (1 standard drink = 0.6 oz pur e alcohol) 1-2 per week PHQ-2 Answer Date Recorded PHQ-2 Score 2 01/09/2020 Comments No Sex and Gender Information Value Date Recorded Sex Assigned at Female 01/18/2019 9:01 AM CDT 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 Gender Identity Female 01/18/2019 9:01 AM CDT [...] documented as of this encounter Care Teams Industrial Trainer Relationship Specialty Start Date End Date Kathy Glover MD [address] [place] [address] 274682 PCP - General Family Practice 06/03/15 10/05/20 Clinic - [facility] [address] [place] [address] PCP - General 10/06/20 11/20/21 Luh Acharya PA-C [address] [place] [address] PCP - General Family Medicine 11/21/21 01/02/23 Toma Arguello NP [address] [address] Nurse Practitioner Nurse Practitioner Psych/Mental Health 04/11/17 Laura Us MD [address] [address] Gastroenterology 12/20/18 Luh Acharya PA-C [address] [place] [address] Assigned PCP 12/21/19 01/17/20 Kathy Glover MD [address] [place] [address] Assigned PCP 01/18/20 06/19/20 Luh Acharya PA-C [address] [place] [address] Assigned PCP 06/20/20 03/31/21 Edward Marlow MD [address] [place] [address] Assigned Surgical Provider 07/09/20 07/31/20 Jas Bojorquez DO [address] [place] [address], [place] [address] Assigned PCP 04/01/21 05/21/21 Havne Buckner, SPOUTER [address] [place] [address], [place] [address] Assigned PCP 05/22/21 11/26/21 Jenise España MD Assigned Heart and Vascular Provider 07/24/21 11/17/22 Tierra Cancino PA-C [address] [place] [address] Physician Decision Support Analyst Urology 11/17/21 Luh Acharya PA-C [address] [place] [address], [place] [address] Assigned PCP 11/27/21 12/31/21 Tierra aCncino PA-C [address] [place] [address] Assigned Surgical Provider 12/11/21 06/08/23 Haven Buckner, SPOUTER [address] [place] [address], [place] [address] Assigned PCP 01/01/22 12/22/22 Luh Acharya PA-C [address] [place] [address], [place] [address] Assigned PCP 12/23/22 05/18/23 Haven Buckner, SPOUTER [address] [place] [address] Assigned PCP 05/19/23 02/05/25 documented as of this encounter
--- OUTSIDE RECORDS SUMMARY | 2025-04-02 11:07 | XMS_ITS | Encounter Summary ---
Author Organization [place] Address [address] [facility] [place] [address] Care Team Providers Care Medical Director Name Role Phone Kathy Glover MD Primary Care Provider Toma Arguello NP Unavailable Kathy Glover MD Unavailable [phone] Kathy Glover MD Unavailable [phone] Laura Us MD Unavailable Luh Acharya PA-C Unavailable [phone] Kathy Glover MD Unavailable [phone] Luh Acharya PA-C Unavailable +[phone] Edward Marlow MD Unavailable [facility] Primary Care Provider Jas Bojorquez DO Unavailable [phone] Haven Buckner CNP Unavailable Jenise España MD Unavailable Unavailable Tierra CancinoC Unavailable Luh Acharya PA-C Primary Care Provider + Luh AcharyaC Unavailable +[phone] Tierra Cancinojose guadalupe BAUTISTAC Unavailable [phone] Haven Buckner CNP Unavailable +[phone] Luh AcharyaC Unavailable +1- BucknerHaven lofton CNP Unavailable +1- Encounter Details Date Type Department Care Team (Late st Contact Info) Description 03/16/2017 [facility] Medical Advice [address] [phone] Kathy Glover MD [address] [place] [address] Social History Tobacco Use Types Packs/Day Years Used Date Smoking Tobacco: Former Cigarettes 1 20 Smokeless Tobacco: Never Alcohol Use Standard Drinks/Week Comments Yes 0 (1 standard drink = 0.6 oz pur e alcohol) 1 glass wine daily Comments No Sex and Gender Information Value Date Recorded Sex Assigned at Female 01/18/2019 9:01 AM CDT 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 Gender Identity Female 01/18/2019 9:01 AM CDT [...] as of this encounter Care Teams Medical Director Relationship Specialty Start Date End Date Kathy Glover MD [address] [place] [address] PCP - General Family Practice 06/03/15 10/05/20 Kathy Glover MD [address] [place] [address] PCP - Assigned PCP 07/25/15 11/19/[address] 701312 PCP - General 10/06/20 11/20/21 Luh Acharya PA-C [address] [place] [address] 436012 PCP - General Family Medicine 11/21/21 01/02/23 Toma Arguello NP [address] [address] Nurse Practitioner Nurse Practitioner Psych/Mental Health 04/11/17 Kathy Glover MD [address] [place] [address] Assigned PCP 07/25/15 12/20/19 Laura Us MD [address] [place] [address] Gastroenterology 12/20/18 Luh Acharya PA-C [address] [place] [address] Assigned PCP 12/21/19 01/17/20 Kathy Glover MD [address] [place] [address] Assigned PCP 01/18/20 06/19/20 Luh Acharya PA-C [address] [place] [address] Assigned PCP 06/20/20 03/31/21 Edward [place] [address] Assigned Surgical Provider 07/09/20 07/31/20 Jas Bojorquez DO [address] [place] [address] Assigned PCP 04/01/21 05/21/21 Haven Buckner CNP [address] [place] [address] Assigned PCP 05/22/21 11/26/21 Jenise España MD Assigned Heart and Vascular Provider 07/24/21 11/17/22 Tierra Cancino PA-C [address] [place] [address] Physician Mining Plant Operator Urology 11/17/21 Luh Acharya PA-C [address] [place] [address] Assigned PCP 11/27/21 12/31/21 Tierra Cancino PA-C [address] [place] [address] Assigned Surgical Provider 12/11/21 06/08/23 Haven Buckner, NICOLE [address] [place] [address] Assigned PCP 01/01/22 12/22/22 Luh Acharya PA-C [address] [place] [address] Assigned PCP 12/23/22 05/18/23 Haven Buckner, NICOLE [address] [place] [address] Assigned PCP 05/19/23 02/05/25 documented as of this encounter
--- OUTSIDE RECORDS SUMMARY | 2025-04-02 11:07 | XMS_ITS | Encounter Summary ---
Author Organization [place] Address [address] [facility] [place] [address] Care Team Providers Care Priest Name Role Phone Kathy Glover MD Primary Care Provider Toma Arguello NP Unavailable [phone] Kathy Glover MD Unavailable +[phone] Kathy Glover MD Unavailable [phone] Laura Us MD Unavailable Luh Acharya PA-C Unavailable +[phone] Kathy Glover MD Unavailable [phone] Luh Acharya PA-C Unavailable +[phone] Edward Marlow MD Unavailable [phone] [facility] Primary Care Provider Jas Bojorquez DO Unavailable [phone] Haven Buckner CNP Unavailable Jenise España MD Unavailable Unavailable Tierra CancinoC Unavailable Luh Acharya PA-C Primary Care Provider + Luh AcharyaC Unavailable [phone] Tierra Cancinovonnvandana BAUTISTAC Unavailable Haven Buckner CNP Unavailable +[phone] AcharyaLuh-C Unavailable +[phone] BucknerHaven lofton CNP Unavailable +[phone] Reason for Referral * Diagnostic Imaging MRI - Closed Specialty Diagnoses / Procedures Referred By Rafa t Referred To Contact Radiology. Diagnoses Complex cyst of right ovary Procedures MR Pelvis (REGISTRAR MUSEUM) wo & w Contrast MR Pelvis (REGISTRAR MUSEUM) w Contrast Kathy Glover MD [address] [place] [address] Phone: tel: fax: [facility] [address] [place] [address] Phone: tel: fax: Referral ID Status Reason Start Date Expiration Date Visits Re quested Visits Authorized [id number] Closed 08/19/2018 08/19/2019 1 1 CE SUPERVISOR Reason for Visit * Reason Onset Date Comments MyChart Communication 08/15/2018 Re: MRI re sults back specialist Encounter Details Date Type Department Care Team (Late st Contact Info) Description 08/15/2018 [facility] Medical Advice [address] [place] [phone] Kathy Glover MD [address] [place] [address] MyChart Communication (Re: MRI results bennett... 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 TAYLA Simmons, RN, PHN [facility] [phone] CE SUPERVISOR * Telephone Encounter - Kathy Glover MD - 08/19/2018 6:19 AM OFFICE SUPERVISOR Possible hemorrhagic right adnexal cysts noted on MRI lumbar spine - radiology recommended MR of pelvis to better discern. Ordered. Please inform patient. CE SUPERVISOR * Telephone Encounter - Coty Doan RN - 08/15/2018 12:56 PM OFFICE SUPERVISOR Forwarded to J. Please review patient's [employer] message and advise. Coty Doan RN, BS, PHN CE SUPERVISOR documented in this encounter Plan of Treatment Not on file documented as of this encounter Results * MR Pelvis (REGISTRAR MUSEUM) wo & w Contrast (08/27/2018 8:13 AM OFFICE SUPERVISOR) Anatomical Region Laterality Modality Abdomen/Pelvis, SUBRAD MR BODY, UMP MR BODY, RAD MR Magnetic Resonance Impressions 08/27/2018 4:09 PM OFFICE SUPERVISOR IMPRESSION: 1. Grouping of cysts at the right upper pelvis may arise from the right ovary versus adnexa. Two of these have elevated T1 signal suggesting hemorrhagic cysts while another is a small simple cyst. 2. The uterus is absent. The left ovary is not visualized for assessment. 3. A few scattered colonic diverticula. JAXON STAPLES MD Narrative 08/27/2018 4:09 PM OFFICE SUPERVISOR MR PELVIS (REGISTRAR MUSEUM) WITH AND WITHOUT CONTRAST August 27, 2018 8:13 AM HISTORY: Complex cysts near right adnexa noted on MRI lumbar spine. Rule out hemorrhagic/endometriosis. TECHNIQUE: Multiplanar, multiecho MRI was performed using T1, T2, and in- and [id number] imaging. Pre- and postcontrast T1 images were [...] Jaxon Staples MD - 08/27/2018 MR PELVIS (REGISTRAR MUSEUM) WITH AND WITHOUT CONTRAST August 27, 2018 8:13 AM HISTORY: Complex cysts near right adnexa noted on MRI lumbar spine. Rule out hemorrhagic/endometriosis. TECHNIQUE: Multiplanar, multiecho MRI was performed using T1, T2, and in- and [id number]-bx-[id number] imaging. Pre- and postcontrast T1 images were [...] few scattered colonic diverticula. JAXON STAPLES MD us Kathy Glover MD IMG MRI ORDERABLES Adalgisa l Result documented in this encounter Visit Diagnoses Diagnosis [...] documented as of this encounter Care Teams Priest Relationship Specialty Start Date End Date Kathy Glover MD [address] [place] [address] PCP - General Family Practice 06/03/15 10/05/20 Kathy Glover MD [address] [place] [address] PCP - Assigned PCP 07/25/15 11/19/[address] [address] PCP - General 10/06/20 11/20/21 Luh Acharya PA-C [address] [place] [address] PCP - General Family Medicine 11/21/21 01/02/23 Toma Arguello NP [address] [address] Nurse Practitioner Nurse Practitioner Psych/Mental Health 04/11/17 Kathy Glover MD [address] [place] [address] Assigned PCP 07/25/15 12/20/19 Laura Us MD [address] [place] [address] Gastroenterology 12/20/18 Luh Acharya PA-C [address] [place] [address] Assigned PCP 12/21/19 01/17/20 Kathy Glover MD [address] [place] [address] Assigned PCP 01/18/20 06/19/20 Luh Acharya PA-C [address] [place] [address] Assigned PCP 06/20/20 03/31/21 Edward Marlow MD [address] [place] [address] Assigned Surgical Provider 07/09/20 07/31/20 Jas Bojorquez DO [address] [place] [address], [place] [address] Assigned PCP 04/01/21 05/21/21 Haven Buckner, NICOLE [address] [place] [address], [place] [address] Assigned PCP 05/22/21 11/26/21 Jenise España MD Assigned Heart and Vascular Provider 07/24/21 11/17/22 Tierra Cancino PA-C [address] [place] [address] Physician Snuff Packing Machine Operator Urology 11/17/21 Luh Acharya PA-C [address] [place] [address] Assigned PCP 11/27/21 12/31/21 Tierra Cancino PA-C [address] [place] [address] Assigned Surgical Provider 12/11/21 06/08/23 Haven Buckner, NICOLE [address] [place] [address], [place] [address] Assigned PCP 01/01/22 12/22/22 Luh Acharya PA-C [address] [place] [address], [place] [address] Assigned PCP 12/23/22 05/18/23 Haven Buckner, NICOLE [address] [place] [address] Assigned PCP 05/19/23 02/05/25 documented as of this encounter
--- OUTSIDE RECORDS SUMMARY | 2025-04-02 11:07 | XMS_ITS | Encounter Summary ---
Author Organization [place] Address [address] [facility] [place] [address] Care Team Providers Care Nurse Name Role Phone Kathy Glover MD Primary Care Provider Toma Arguello NP Unavailable [phone] Kathy Glover MD Unavailable [phone] Kathy Glover MD Unavailable [phone] Laura Us MD Unavailable Luh Acharya PA-C Unavailable [phone] Kathy Glover MD Unavailable [phone] Luh Acharya PA-C Unavailable [phone] Edward Marlow MD Unavailable [facility] Primary Care Provider Jas Bojorquez DO Unavailable [phone] Haven Buckner CNP Unavailable Jenise España MD Unavailable Unavailable Tierra CancinoC Unavailable [phone] Luh Acharya PA-C Primary Care Provider + Luh Acharya-C Unavailable [phone] Tierra Cancino TIM-C Unavailable [phone] Sita Haven Harding BID WRITER Unavailable [phone] Luh Acharya Enedina DUMONT-C Unavailable [phone] Haven Buckner BID WRITER Unavailable [phone] Reason for Visit * Reason Onset Date Comments MyChart Communication 02/15/2017 migraine t reatments Encounter Details Date Type Department Care Team (Late st Contact Info) Description 02/15/2017 MyC Medical Advice [address] [phone] Kathy Glover MD [address] [place] [address] MyChart Communication (migraine treatments) Social History [...] AM CDT 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 TAYLA Simmons, RN, PHN [place] Triage * Telephone Encounter - Kathy Glover [...] of PCP recommendations below. Script walked to [facility]. Patient asked if appeal letter had been written for her Midrin. I see that Midrin PA was denied on 01/17/2017. I do not see an appeal letter in chart so unsure of status. Will route to . TAYLA Simmons, RN, N [place] Triage * Telephone Encounter - Marcy Smith RN - 02/21/2017 8:28 AM CDT Received signed script. Attempt #1 to call pt. Marcy Smith contacted Yenni on 02/21/17 and left a message. If patient calls back please contact RN team. Put script on [facility] desk incase pt calls back. Dona Smith RN * Telephone Encounter - Marcy Smith RN - 02/21/2017 7:55 AM CDT Prescription put on [facility] desk for signature to then give to triage to alert pt of below. Dona Smith RN * Telephone Encounter - Kathy Glover MD - 02/21/2017 12:20 AM CDT Done for #20 tabs for severe pain - try to just take 1/2 tab for migraines, if needed. rx at [facility], please bring to me later this am when back in clinic and I'll sign. rx needs to bi picked up or walked over to our pharmacy. Await results of referral from neurology. * Telephone Encounter - Coty Doan RN - 02/16/2017 3:28 PM CDT Please review patient's AfterStepshart message. TAYLA Simmons, RN, PHN [place] Triage * Telephone Encounter - Coty Doan RN - 02/16/2017 2:40 PM CDT Mychart note sent to patient with provider recommendations below. TAYLA Simmons, RN, PHN [place] Triage * Telephone Encounter - Kathy Glover MD - 02/16/2017 2:29 PM CDT ? Is pt doing the postconcussion program either through [facility] or via [facility] concussion product marketing intern? Would highly recommend the [facility] program. If pt desires to do medical [...] - CSA - 06/03/2015 - #30 norco 5/325/month -see q6 month med check appointments Chronic [...] documented as of this encounter Care Teams Nurse Relationship Specialty Start Date End Date Kathy Glover MD [address] [place] [address] [id number] PCP - General Family Practice 06/03/15 10/05/20 Kathy Glover MD [address] [place] [address] 630572 PCP - Assigned PCP 07/25/15 11/19/[address] [id number] PCP - General 10/06/20 11/20/21 Luh Acharya PA-C [address] [place] [address] [phone] PCP - General Family Medicine 11/21/21 01/02/23 Toma Arguello NP [address] 498347 Nurse Practitioner Nurse Practitioner Psych/Mental Health 04/11/17 Kathy Glover MD [address] [place] [address] 906332 Assigned PCP 07/25/15 12/20/19 Laura Us MD [address] [place] [address] Gastroenterology 12/20/18 Luh Acharya PA-C [address] [place] [address] Assigned PCP 12/21/19 01/17/20 Kathy Glover MD [address] [place] [address] Assigned PCP 01/18/20 06/19/20 Luh Acharya PA-C [address] [place] [address] 48063 Assigned PCP 06/20/20 03/31/21 Edward Marlow MD [address] [place] [address] 86279 Assigned Surgical Provider 07/09/20 07/31/20 Jas Bojorquez DO [address] [place] [address] Assigned PCP 04/01/21 05/21/21 Haven Buckner, BID WRITER [address] [place] [address] 41300 Assigned PCP 05/22/21 11/26/21 Jenise España MD Assigned Heart and Vascular Provider 07/24/21 11/17/22 Tierra Cancino PA-C [address] [place] [address] Physician Poultry Farm Manager Urology 11/17/21 Luh Acharya PA-C [address] [place] [address], [place] [address] Assigned PCP 11/27/21 12/31/21 Tierra Cancino PA-C [address] [place] [address] Assigned Surgical Provider 12/11/21 06/08/23 Haven Buckner, NICOLE [address] [place] [address], [place] [address] Assigned PCP 01/01/22 12/22/22 Luh Acharya PA-C [address] [place] [address], [place] [address] Assigned PCP 12/23/22 05/18/23 Haven Buckner, BID WRITER [address] [place] [address], [place] [address] Assigned PCP 05/19/23 02/05/25 documented as of this encounter
--- OUTSIDE RECORDS SUMMARY | 2025-04-02 11:08 | XMS_ITS | Encounter Summary ---
Author Organization [place] Address [address] [facility] [place] [address] Care Team Providers Care Head Packager Name Role Phone Toma Arguello YESICA Unavailable [phone] Laura Us MD Unavailable Jenise España MD Unavailable Unavailable Tierra Cancino PA-C Unavailable [phone] Luh Acharya PA-C Primary Care Provider + Luh Acharya PA-C Unavailable Tierra Cancino PA-C Unavailable Haven Buckner CNP Unavailable [phone] Luh Acharya PA-C Unavailable [phone] Haven Buckner CNP Unavailable Encounter Details Date Type Department Care Team (Late st Contact Info) Description 11/29/2021 MyC Medical Advice [address] [place] [phone] Luh Acharya PA-C [address] [place] [address] Social History Tobacco Use Types Packs/Day Years Used Date Smoking Tobacco: Former Cigarettes 1 20 0 03/17/1988 - 03/17/2008 Smokeless Tobacco: Never Alcohol Use Standard Drinks/Week Comments Yes 0 (1 standard drink = 0.6 oz pur e alcohol) 1-2 per week PHQ-2 Answer Date Recorded PHQ-2 Score 0 11/15/2021 Comments No Sex and Gender Information Value Date Recorded Sex Assigned at Female 01/18/2019 9:01 AM CDT 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 Gender Identity Female 01/18/2019 9:01 AM CDT Sexual Orientation Straight 01/18/2019 9: 01 AM CDT 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 , 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 Not on file Not on file Not o n file Not on file Not on file Not on file Not on file COVID-19 Exposure Response Date Recorded In the [...] advise Thank you Manisha Patel RN, BSN [place] Triage documented in this encounter Plan of Treatment Not on file documented as of this encounter Visit Diagnoses Not on filedocumented in this encounter Additional Health Concerns Infection Onset Date Last Indicated Resolved Time Rule Out COVID-19 12/19/2021 12/19/2021 12/20/2021 1:02 PM CDT Assessment Noted Time PHQ-9 Depression Total Score: 5 10/25/19 22 7:03 AM CELEBRITY CHEF ENTREPRENEUR MEDIA PERSONALITY documented as of this encounter Care Teams Head Packager Relationship Specialty Start Date End Date Luh Acharya PA-C [address] [place] [address] PCP - General Family Medicine 11/21/21 01/02/23 Toma Arguello SKIN DIVING TEACHER [facility] [address] [place] [address] Nurse Practitioner Nurse Practitioner Psych/Mental Health 04/11/17 Laura Us MD [facility] [address] [place] [address] Gastroenterology 12/20/18 Jenise España MD Assigned Heart and Vascular Provider 07/24/21 11/17/22 Tierra Cancino PA-C [address] [place] [address] Physician Financial Administrator Urology 11/17/21 Luh Acharya PA-C [address] [place] [address] Assigned PCP 11/27/21 12/31/21 Tierra Cancino PA-C [address] [place] [address] Assigned Surgical Provider 12/11/21 06/08/23 Haven Buckner, NICOLE [address] [place] [address] [phone] Assigned PCP 01/01/22 12/22/22 Luh Acharya PA-C [address] [place] [address] Assigned PCP 12/23/22 05/18/23 Haven Buckner, SIGNALING DESIGN ENGINEER [address] [place] [address] Assigned PCP 05/19/23 02/05/25 documented as of this encounter
--- OUTSIDE RECORDS SUMMARY | 2025-04-02 11:08 | XMS_ITS | Encounter Summary ---
Author Organization [place] Address [address] [facility] [place] [address] Care Team Providers Care Entry Level Project Engineer Name Role Phone Toma Arguello YESICA Unavailable [phone] Laura Us MD Unavailable [facility] Primary Care Provider Haven Buckner CNP Unavailable [phone] Jenise España MD Unavailable Unavailable Tierra Cancino-C Unavailable [phone] Luh Acharya-C Primary Care Provider + Luh Acharya-Melissa Unavailable [phone] Tierra Cancino-Melissa Unavailable [phone] Haven Buckner CNP Unavailable [phone] Luh Acharya PA-C Unavailable [phone] Haven Buckner CNP Unavailable [phone] Reason for Visit * Reason Comments Medication Refill Encounter Details Date Type Department Care Team (Late st Contact Info) Description 09/07/[address] [phone] Haven Buckner, QUALITY COMPLIANCE CONSULTANT [address] [place], [place] [phone] Medication Refill Social History Tobacco Use Types [...] AM CDT 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 NRY INSTALLER documented in this encounter Plan of Treatment [...] of this encounter Care Teams Entry Level Project Engineer Relationship Specialty Start Date End Date Clinic - [facility] [address] 477252 PCP - General 10/06/20 11/20/21 Luh Acharya PA-C [address] [place] [address] PCP - General Family Medicine 11/21/21 01/02/23 Toma Arguello [facility] [address] [place] [address] Nurse Practitioner Nurse Practitioner Psych/Mental Health 04/11/17 Laura Us MD [facility] [address] [place] [address] Gastroenterology 12/20/18 Haven Buckner, NICOLE [address] [place] [address] Assigned PCP 05/22/21 11/26/21 Jenise España MD Assigned Heart and Vascular Provider 07/24/21 11/17/22 Tierra Cancino PA-C [address] [place] [address] Physician Malted Milk Mixer Urology 11/17/21 Luh Acharya PA-C [address] [place] [address] Assigned PCP 11/27/21 12/31/21 Tierra Cancino PA-C [address] [place] [address] Assigned Surgical Provider 12/11/21 06/08/23 Haven Buckner, NICOLE [address] [place] [address], [place] [address] Assigned PCP 01/01/22 12/22/22 Luh Acharya PA-C [address] [place] [address] Assigned PCP 12/23/22 05/18/23 Haven Buckner, QUALITY COMPLIANCE CONSULTANT [address] [place] [address] 00501 Assigned PCP 05/19/23 02/05/25 documented as of this encounter
--- OUTSIDE RECORDS SUMMARY | 2025-04-02 11:08 | XMS_ITS | Encounter Summary ---
Author Organization [place] Address [address] [facility] [place] [address] Care Team Providers Care Manager Purchasing Name Role Phone Toma Arguello YESICA Unavailable [phone] Laura Us MD Unavailable Jenise España MD Unavailable Unavailable Tierra Cancino PA-C Unavailable Luh Acharya PA-C Primary Care Provider + Tierra Cancino PA-C Unavailable Haven Buckner CNP Unavailable Luh Acharya PA-C Unavailable Haven Buckner CNP Unavailable Reason for Visit * Reason Comments Medication Refill Encounter Details Date Type Department Care Team (Late st Contact Info) Description 09/07/[address] [phone] Luh Acharya PA-C [address] [place] [address] [phone] Medication Refill Social History Tobacco Use Types [...] AM CDT 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 Gender Identity Female 01/18/2019 9:01 AM CDT [...] one refill on file Ellen Lemon RN [facility] Triage ERCIAL PILOT documented in this encounter Plan of Treatment Not on file documented as of this encounter Visit Diagnoses Diagnosis Gastroesophageal reflux disease, unspecified whether esophagitis present documented in this encounter Additional Health Concerns Assessment Noted Time PHQ-9 Depression Total Score: 5 10/25/19 22 7:03 AM COMMERCIAL PILOT documented as of this encounter Care Teams Manager Purchasing Relationship Specialty Start Date End Date Luh Acharya PA-C [address] [place] [address] PCP - General Family Medicine 11/21/21 01/02/23 Toma Arguello NP [address] [address] Nurse Practitioner Nurse Practitioner Psych/Mental Health 04/11/17 Laura Us MD [address] [place] [address] Gastroenterology 12/20/18 Jenise España MD Assigned Heart and Vascular Provider 07/24/21 11/17/22 Tierra Cancino PA-C [address] [place] [address] Physician Sourcing Internship Urology 11/17/21 Tierra Cancino PA-C [address] [place] [address] Assigned Surgical Provider 12/11/21 06/08/23 Haven Buckner CNP [address] [place] [address] Assigned PCP 01/01/22 12/22/22 Luh Acharya PA-C [address] [place] [address] Assigned PCP 12/23/22 05/18/23 Haven Buckner CNP [address] [place] [address] Assigned PCP 05/19/23 02/05/25 documented as of this encounter
--- OUTSIDE RECORDS SUMMARY | 2025-04-02 11:08 | XMS_ITS | Encounter Summary ---
Author Organization [place] Address [address] [facility] [place] [address] Care Team Providers Care Board Handler Name Role Phone Toma Arguello YESICA Unavailable [phone] Laura Us MD Unavailable [facility] Primary Care Provider Haven Buckner CNP Unavailable [phone] Jenise España MD Unavailable Unavailable Tierra Cancino-C Unavailable [phone] Luh Acharya-C Primary Care Provider + Luh Acharya-Melissa Unavailable [phone] Tierra Cancino-Melissa Unavailable [phone] Haven Buckner CNP Unavailable [phone] Luh Acharya PA-C Unavailable [phone] Haven Buckner CNP Unavailable [phone] Reason for Visit * Reason Comments Medication Refill Encounter Details Date Type Department Care Team (Late st Contact Info) Description 10/14/[address] [phone] Luh Acharya PA-C [address] [place] [address] Medication Refill Social History Tobacco Use Types [...] AM CDT 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 No / Unsure 10/13/2021 3:21 PM FEED IN WORKER documented as of this encounter Miscellaneous Notes * Telephone Encounter - Nancy Monte RN - 10/17/2021 5:44 PM CST Prescription approved per [facility] Refill Protocol. Next 5 appointments (look out 90 days) Nov 15, 2021 1:40 PM (Arrive by 1:20 PM) Adult Preventative Visit with Luh Acharya PA-C [facility] [address] [place] [address]. [facility] [phone] Nancy Monte RN [facility] IN WORKER documented in this encounter Plan of [...] documented as of this encounter Care Teams Board Handler Relationship Specialty Start Date End Date Clinic - [facility] [address] [place] [address] [id number] PCP - General 10/06/20 11/20/21 Luh Acharya PA-C [address] [place] [address] 552322 PCP - General Family Medicine 11/21/21 01/02/23 Toma Arguello NP [place] [address] [place], [place] 230877 Nurse Practitioner Nurse Practitioner Psych/Mental Health 04/11/17 Laura Us MD [address] 711057 Gastroenterology 12/20/18 Haven Buckner, EAR NOSE AND THROAT SPECIALIST [address] [place] [address] 774452 Assigned PCP 05/22/21 11/26/21 Jenise España MD Assigned Heart and Vascular Provider 07/24/21 11/17/22 Tierra Cancino PA-C [address] [place] [address] Physician Tank Furnace Operator Urology 11/17/21 Luh Acharya PA-C [facility] [place] [address] Assigned PCP 11/27/21 12/31/21 Tierra Cancino PA-C [address] [place] [address] [place] [address] Assigned Surgical Provider 12/11/21 06/08/23 Haven Buckner, EAR NOSE AND THROAT SPECIALIST [address] [facility] [place] [address] Assigned PCP 01/01/22 12/22/22 Luh Acharya PA-C [address] [place] [address], [place] [address] Assigned PCP 12/23/22 05/18/23 Haven Buckner, EAR NOSE AND THROAT SPECIALIST [facility] [place] [address] Assigned PCP 05/19/23 02/05/25 documented as of this encounter
--- OUTSIDE RECORDS SUMMARY | 2025-04-02 11:08 | XMS_ITS | Encounter Summary ---
Author Organization [place] Address [address] [facility] [place] [address] Care Team Providers Care Stripper Apprentice Name Role Phone Kathy Glover MD Primary Care Provider Toma Arguello NP Unavailable [phone] Kathy Glover MD Unavailable [phone] Kathy Glover MD Unavailable [phone] Laura Us MD Unavailable Luh Acharya PA-C Unavailable [phone] Kathy Glover MD Unavailable [phone] Luh Acharya PA-C Unavailable [phone] Edward Marlow MD Unavailable [phone] [facility] Primary Care Provider Jas Bojorquez DO Unavailable [phone] Haven Buckner CNP Unavailable Jenise España MD Unavailable Unavailable Tierra CancinoC Unavailable Luh Acharya PA-C Primary Care Provider + Luh Acharya-C Unavailable [phone] Tierra Cancinovonnvandana BAUTISTAC Unavailable BucknerHaven loftonzarosa maria RIVERA Unavailable [phone] Luh Acharya Enedina DUMONT-C Unavailable [phone] SitaHaven CNP Unavailable [phone] Reason for Visit * Reason Comments Medication Refill Encounter Details Date Type Department Care Team (Late st Contact Info) Description 06/27/2018 Refill [facility] [address] [place] [address] [place] [address] [place] [address] Medication Refill Social History Tobacco Use Types Packs/Day Years Used Date Smoking Tobacco: Former Cigarettes 1 20 Smokeless Tobacco: Never Alcohol Use Standard Drinks/Week Comments No 0 (1 standard drink = 0.6 oz pur e alcohol) Comments No Sex and Gender Information Value Date Recorded Sex Assigned at Female 01/18/2019 9:01 AM CDT 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 Gender Identity Female 01/18/2019 9:01 AM CDT Sexual Orientation Straight 01/18/2019 9: 01 AM CDT Occupation Industry Job Start Date Job End Date Not on file Not on file Not [...] documented as of this encounter Care Teams Stripper Apprentice Relationship Specialty Start Date End Date Kathy Glover MD [address] [place] [address] PCP - General Family Practice 06/03/15 10/05/20 Kathy Glover MD [address] [place] [address] 99955 PCP - Assigned PCP 07/25/15 11/19/[address] [phone] PCP - General 10/06/20 11/20/21 Luh Acharya PA-C [address] [place] [address] 900672 PCP - General Family Medicine 11/21/21 01/02/23 Toma Arguello NP [address] 718997 Nurse Practitioner Nurse Practitioner Psych/Mental Health 04/11/17 Kathy Glover MD [address] [place] [address] 78245 Assigned PCP 07/25/15 12/20/19 Laura Us MD [address] [place] [address] 337452 Gastroenterology 12/20/18 Luh Acharya PA-C [address] [place] [address] 54455 Assigned PCP 12/21/19 01/17/20 Kathy Glover MD [address] [place] [address] [phone] Assigned PCP 01/18/20 06/19/20 Luh Acharya PA-C [address] [place] [address] [phone] Assigned PCP 06/20/20 03/31/21 Edward Marlow [place] [address] Assigned Surgical Provider 07/09/20 07/31/20 Jas Bojorquez DO [address] [place] [address] [phone] Assigned PCP 04/01/21 05/21/21 Haven Buckner, NICOLE [address] [place] [address] [phone] Assigned PCP 05/22/21 11/26/21 Jenise España MD Assigned Heart and Vascular Provider 07/24/21 11/17/22 Tierra Cancino PA-C [address] [address] Physician Rip Tailer Urology 11/17/21 Luh Acharya PA-C [address] [place] [address] 85[address] Assigned PCP 11/27/21 12/31/21 Tierra Cancino PA-C [address] [place] [address] Assigned Surgical Provider 12/11/21 06/08/23 Haven Buckner, EMPLOYMENT TRAINER [address] [place] [address], [place] [address] Assigned PCP 01/01/22 12/22/22 Luh Acharya PA-C [address] [place] [address] [phone] Assigned PCP 12/23/22 05/18/23 Haven Buckner, EMPLOYMENT TRAINER [address] [place] [address] Assigned PCP 05/19/23 02/05/25 documented as of this encounter
--- OUTSIDE RECORDS SUMMARY | 2025-04-02 11:08 | XMS_ITS | Encounter Summary ---
Author Organization [place] Address [address] [facility] [place] [address] Care Team Providers Care Director Of Training Name Role Phone Toma Arguello YESICA Unavailable [phone] Laura Us MD Unavailable [facility] Primary Care Provider Jas Bojorquez DO Unavailable [phone] OFFICE WORKFORCE PLANNER Unavailable +-[phone] Jenise España MD Unavailable Unavailable Tierra Cancino PA-C Unavailable [phone] Luh Acharya-C Primary Care Provider + Luh Acharya PA-C Unavailable +- [phone] Tierra Cancino PA-C Unavailable [phone] Haven Buckner OFFICE WORKFORCE PLANNER Unavailable +[phone] Luh Acharya-C Unavailable + [phone] Haven Buckner CNP Unavailable +[phone] Reason for Visit * Reason Onset Date Comments [facility] Communication 04/14/2021 Encounter Details Date Type Department Care Team (Latest Contact Info) Description 04/14/2021 [facility] [address] [phone] Judd Waller Communication Social History Tobacco Use [...] AM CDT 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 Gender Identity Female 01/18/2019 9:01 AM [...] documented as of this encounter Care Teams Director Of Training Relationship Specialty Start Date End Date Clinic - [address] [phone] PCP - General 10/06/20 11/20/21 Luh Acharya PA-C [address] [place] [address] [phone] PCP - General Family Medicine 11/21/21 01/02/23 Toma Arguello NP [place] [address] [place] [address] Nurse Practitioner Nurse Practitioner Psych/Mental Health 04/11/17 Laura Us MD [place] [address] [place] [address] Gastroenterology 12/20/18 Jas Bojorquez DO [address] [place] [address] [phone] Assigned PCP 04/01/21 05/21/21 Haven Buckner, NICOLE [address] [place] [address] 13772 Assigned PCP 05/22/21 11/26/21 Jenise España MD Assigned Heart and Vascular Provider 07/24/21 11/17/22 Tierra Cancino PA-C [address] [place] [address] Physician Sole Trimmer Urology 11/17/21 Luh Acharya PA-C [address] [place] [address] 82033 Assigned PCP 11/27/21 12/31/21 Tierra Cancino PA-C [address] [place] [address] Assigned Surgical Provider 12/11/21 06/08/23 Haven Buckner CNP [address] [place] [address], [place] [address] Assigned PCP 01/01/22 12/22/22 Luh Acharya PA-C [address] [place] [address] Assigned PCP 12/23/22 05/18/23 Haven Buckner, OFFICE WORKFORCE PLANNER [address] [place] [address] 65550 Assigned PCP 05/19/23 02/05/25 documented as of this encounter
--- OUTSIDE RECORDS SUMMARY | 2025-04-02 11:08 | XMS_ITS | Encounter Summary ---
Author Organization [place] Address [address] [facility] [place] [address] Care Team Providers Care Crosstie Inspector Name Role Phone Toma Arguello YESICA Unavailable [phone] Laura Us MD Unavailable [facility] Primary Care Provider Haven Buckner CNP Unavailable +[phone] Jenise España MD Unavailable Unavailable Tierra Cancino-C Unavailable [phone] Luh Acharya-C Primary Care Provider + Luh Acharya-Melissa Unavailable +- [phone] Tierra Cancino-Melissa Unavailable [phone] Haven Buckner CNP Unavailable [phone] Luh Acharya PA-C Unavailable +[phone] Haven Buckner CNP Unavailable +[phone] Reason for Visit * Reason Comments Medication Refill Encounter Details Date Type Department Care Team (Late st Contact Info) Description 10/20/[address] [phone] Luh Acharya PA-C [address] [place] [address] Medication Refill Social History Tobacco Use Types [...] points; Administer PHQ-9 if positive 1 10/24/2021 Comments No Sex and Gender Information Value Date Recorded Sex Assigned at Female 01/18/2019 9:01 AM CDT 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 No / Unsure 10/13/2021 3:21 PM ESTATE PLANNING COUNSELOR documented as of this encounter Miscellaneous Notes * Telephone Encounter - Ellen Retana RN - 10/21/2021 12:09 PM ESTATE PLANNING COUNSELOR LDL Cholesterol Calculated Date Value Ref Range Status 09/23/2020 55 <100 mg/dL Final Comment: Desirable: <100 mg/dl Enedina refill of 30 days given Appointments in Next Year Nov 15, 2021 1:40 PM (Arrive by 1:20 PM) Adult Preventative Visit with Luh Acharya PA-C [facility] ([facility] ) [phone] Ellen Lemon RN [facility] Triage TE PLANNING COUNSELOR documented in this encounter Plan of [...] documented as of this encounter Care Teams Crosstie Inspector Relationship Specialty Start Date End Date Clinic - [address] [phone] PCP - General 10/06/20 11/20/21 Luh Acharya PA-C [address] [place] [address] [phone] PCP - General Family Medicine 11/21/21 01/02/23 Toma Arguello NP [address] [address] Nurse Practitioner Nurse Practitioner Psych/Mental Health 04/11/17 Laura Us MD [address] [address] Gastroenterology 12/20/18 Haven Buckner, NICOLE [address] [place] [address] 646382 Assigned PCP 05/22/21 11/26/21 Jenise España MD Assigned Heart and Vascular Provider 07/24/21 11/17/22 Tierra Cancino PA-C [address] [place] [address] Physician Supervisor Major Appliance Assembly Urology 11/17/21 Luh Acharya PA-C [address] [place] [address]07 Assigned PCP 11/27/21 12/31/21 Tierra Cancino PA-C [address] [place] [address] Assigned Surgical Provider 12/11/21 06/08/23 Haven Buckner, BOATWRIGHT [address] [place] [address] Assigned PCP 01/01/22 12/22/22 Luh Acharya PA-C [address] [place] [address] Assigned PCP 12/23/22 05/18/23 Haven Buckner, BOATWRIGHT [address] [place] [address] Assigned PCP 05/19/23 02/05/25 documented as of this encounter
--- OUTSIDE RECORDS SUMMARY | 2025-04-02 11:08 | XMS_ITS | Encounter Summary ---
Author Organization [place] Address [address] [facility] [place] [address] Care Team Providers Care Manager Of Training And Development Name Role Phone Kathy Glover MD Primary Care Provider Toma Arguello NP Unavailable Laura Us MD Unavailable Luh Acharya PA-C Unavailable +-[phone] Edward Marlow MD Unavailable [phone] [facility] Primary Care Provider Jas Bojorquez DO Unavailable [phone] NAPHTHA WASHING SYSTEM OPERATOR Unavailable +[phone] Jenise España MD Unavailable Unavailable Tierra Cancino PA-C Unavailable [phone] Luh Acharya PA-C Primary Care Provider + Luh Acharya-C Unavailable +-[phone] Tierra Cancino PA-C Unavailable Haven Buckner CNP Unavailable +-[phone] Luh Acharya-C Unavailable Haven Buckner NAPHTHA WASHING SYSTEM OPERATOR Unavailable Encounter Details Date Type Department Care Team (Late st Contact Info) Description 07/23/2020 MyC Medical Advice [address] [phone] Juan Pablo Hinton RN Social History Tobacco Use Types Packs/Day Years Used Date Smoking Tobacco: Former Cigarettes 1 20 0 03/17/1988 - 03/17/2008 Smokeless Tobacco: Never Alcohol Use Standard Drinks/Week Comments Yes 0 (1 standard drink = 0.6 oz pur e alcohol) 1-2 per week PHQ-2 Answer Date Recorded PHQ-2 Score 0 07/27/2020 Comments No Sex and Gender Information Value Date Recorded Sex Assigned at Female 01/18/2019 9:01 AM CDT 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 Gender Identity Female 01/18/2019 9:01 AM [...] Total Score: 1 07/27/20 20 2:05 PM SEISMOGRAPH OPERATOR documented as of this encounter Care Teams Manager Of Training And Development Relationship Specialty Start Date End Date Kathy Glover MD [address] [place] [address] PCP - General Family Practice 06/03/15 10/05/20 Clinic - [address] [phone] PCP - General 10/06/20 11/20/21 Luh Acharya PA-C [address] [place] [address] PCP - General Family Medicine 11/21/21 01/02/23 Toma Arguello NP [address] [address] Nurse Practitioner Nurse Practitioner Psych/Mental Health 04/11/17 Laura Us MD [address] [address] Gastroenterology 12/20/18 Luh Acharya PA-C [address] [place] [address]61 Assigned PCP 06/20/20 03/31/21 Edward Marlow MD [address] [place] [address] Assigned Surgical Provider 07/09/20 07/31/20 Jas Bojorquez DO [address] [place] [address] 21457 Assigned PCP 04/01/21 05/21/21 Haven Buckner, NAPHTHA WASHING SYSTEM OPERATOR [address] [place] [address] Assigned PCP 05/22/21 11/26/21 Jenise España MD Assigned Heart and Vascular Provider 07/24/21 11/17/22 Tierra Cancino PA-C [address] [place] [address] Physician Studio Technician Video Operator Urology 11/17/21 Luh Acharya PA-C [address] [place] [address] Assigned PCP 11/27/21 12/31/21 Tierra Cancino PA-C [address] [place] [address] Assigned Surgical Provider 12/11/21 06/08/23 Haven Buckner, NICOLE [address] [place] [address] 77728 Assigned PCP 01/01/22 12/22/22 Luh Acharya PA-C [address] [place] [address] Assigned PCP 12/23/22 05/18/23 Haven Buckner, NICOLE [address] [place] [address]43 Assigned PCP 05/19/23 02/05/25 documented as of this encounter
--- OUTSIDE RECORDS SUMMARY | 2025-04-02 11:08 | XMS_ITS | Encounter Summary ---
Author Organization [place] Address [address] [place] [address] Care Team Providers Care Greek Professor Name Role Phone Toma Arguello YESICA Unavailable [phone] Laura Us MD Unavailable [facility] Primary Care Provider Haven Buckner CNP Unavailable +-2 Jenise España MD Unavailable Unavailable Tierra Cancino-C Unavailable [phone] Luh Acharya-C Primary Care Provider + Luh Acharya-C Unavailable +-[phone] Tierra Cancino-C Unavailable [phone] Haven Buckner CNP Unavailable +-[phone] Luh AcharyaC Unavailable +[phone] Haven Buckner CNP Unavailable [phone] Reason for Visit * Reason Comments Medication Refill Encounter Details Date Type Department Care Team (Late st Contact Info) Description 10/19/2021 [place] [address] 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 No / Unsure 10/13/2021 3:21 PM MOTORCYCLE SALES ASSOCIATE documented as of this encounter Miscellaneous Notes * Telephone Encounter - Juan Pablo Hinton RN - 10/20/2021 1:29 PM CST Prescription approved per [facility] Refill Protocol. Juan Pablo Hinton RN [facility] Triage RCYCLE SALES ASSOCIATE documented in this encounter Plan of Treatment [...] documented as of this encounter Care Teams Greek Professor Relationship Specialty Start Date End Date Clinic - [facility] [address] [place] [address] 624752 PCP - General 10/06/20 11/20/21 Luh Acharya PA-C [address] [place] [address] PCP - General Family Medicine 11/21/21 01/02/23 Toma Arguello NP [place] [address] [place], [place] 328867 Nurse Practitioner Nurse Practitioner Psych/Mental Health 04/11/17 Laura Us MD [place] [address] [place], [place] 727037 Gastroenterology 12/20/18 Haven Buckner, TURNTABLE MAN [address] [place] [address] 499032 Assigned PCP 05/22/21 11/26/21 Jenise España MD Assigned Heart and Vascular Provider 07/24/21 11/17/22 Tierra Cancino PA-C [address] [address] Physician Train Director Urology 11/17/21 Luh Acharya PA-C [address] [place] [address] 89366 Assigned PCP 11/27/21 12/31/21 Tierra Cancino PA-C [address] [place] [address] Assigned Surgical Provider 12/11/21 06/08/23 Haven Buckner, TURNTABLE MAN [address] [place] [address], [place] [address] Assigned PCP 01/01/22 12/22/22 Luh Acharya PA-C [address] [place] [address], [place] 935512 Assigned PCP 12/23/22 05/18/23 Haven Buckner, TURNTABLE MAN [address] [place] [address] Assigned PCP 05/19/23 02/05/25 documented as of this encounter
--- OUTSIDE RECORDS SUMMARY | 2025-04-02 11:08 | XMS_ITS | Encounter Summary ---
Author Organization [place] Address [address] [place] [address] Care Team Providers Care Bath Mix Operator Name Role Phone Toma Arguello YESICA Unavailable [phone] Laura Us MD Unavailable [facility] Primary Care Provider Haven Buckner CNP Unavailable +[phone] Jenise España MD Unavailable Unavailable Tierra Cancino-C Unavailable [phone] Luh Acharya-C Primary Care Provider + Luh Acharya-Melissa Unavailable +- [phone] Tierra Cancino-Melissa Unavailable [phone] Haven Buckner CNP Unavailable [phone] Luh Acharya PA-C Unavailable [phone] Haven Buckner CNP Unavailable [phone] Reason for Visit * Reason Comments Medication Refill Encounter Details Date Type Department Care Team (Late st Contact Info) Description 08/30/[address] [phone] Buckner[address] lofton Meaghan, RETAIL PHARMACY MERCHANDISER [address] [place], [place] 957892 Medication Refill Social History Tobacco Use Types [...] AM CDT Legal Sex Female 3:41 AM ELECTRICAL CAD TECHNICIAN Gender Identity Female 01/18/2019 9:01 AM CDT [...] Manisha Patel RN - 09/01/2021 10:07 PM ELECTRICAL CAD TECHNICIAN Due for an Office visit for further refills, only fill for 30 days Manisha Patel RN, BSN [facility] Triage TRICAL CAD TECHNICIAN documented in this encounter Plan of Treatment [...] documented as of this encounter Care Teams Bath Mix Operator Relationship Specialty Start Date End Date Clinic - Home [facility] [address] [place] [address] PCP - General 10/06/20 11/20/21 Luh Acharya PA-C [address] [place] [address] PCP - General Family Medicine 11/21/21 01/02/23 Toma Arguello CREDIT REPORT CHECKER [place] [address] [place] [address] Nurse Practitioner Nurse Practitioner Psych/Mental Health 04/11/17 Laura Us MD [place] [address] [place] [address] Gastroenterology 12/20/18 Haven Buckner, RETAIL PHARMACY MERCHANDISER [address] [place] [address] Assigned PCP 05/22/21 11/26/21 Jenise España MD Assigned Heart and Vascular Provider 07/24/21 11/17/22 Tierra Cancino PA-C [address] [place] [address] Physician Frame Maker Urology 11/17/21 Luh Acharya PA-C [address] [place] [address] Assigned PCP 11/27/21 12/31/21 Tierra Cancino PA-C [address] [place] [address] Assigned Surgical Provider 12/11/21 06/08/23 Haven Buckner, RETAIL PHARMACY MERCHANDISER [address] [place] [address] Assigned PCP 01/01/22 12/22/22 Luh Acharya PA-C [address] [place] [address] Assigned PCP 12/23/22 05/18/23 Haven Buckner, RETAIL PHARMACY MERCHANDISER [address] [place] [address] Assigned PCP 05/19/23 02/05/25 documented as of this encounter
--- OUTSIDE RECORDS SUMMARY | 2025-04-02 11:08 | XMS_ITS | Encounter Summary ---
Author Organization [place] Address [address] [facility] [address] Care Team Providers Care Senior Associate Name Role Phone Toma Arguello TRACTION POWER ENGINEER Unavailable [phone] Laura Us MD Unavailable [facility] Primary Care Provider Haven Buckner DATA QUALITY CONSULTANT Unavailable +-[phone] Jenise España MD Unavailable Unavailable Tierra Cancino-C Unavailable [phone] Luh Acharya-C Primary Care Provider + Luh Acharya-C Unavailable +-[phone] Tierra Cancino-C Unavailable +[phone] Haven Buckner DATA QUALITY CONSULTANT Unavailable +-[phone] Luh AcharyaC Unavailable +[phone] Haven Buckner CNP Unavailable [phone] Encounter Details Date Type Department Care Team (Late st Contact Info) Description 10/23/2021 [facility] [address] [phone] Shivani Sparrow RN Social History [...] AM CDT Legal Sex Female 3:41 AM ADOLESCENT PSYCHIATRIST Gender Identity Female 01/18/2019 9:01 AM CDT [...] COVID-19? No / Unsure 10/13/2021 3:21 PM ADOLESCENT PSYCHIATRIST documented as of this encounter Plan of Treatment Not on file documented as of this encounter Visit Diagnoses Not on filedocumented in this encounter Additional Health Concerns Infection Onset Date Last Indicated Resolved Time Rule Out COVID-19 12/19/2021 12/19/2021 12/20/2021 1:02 PM CDT Assessment Noted Time PHQ-9 Depression Total Score: 5 10/25/19 22 7:03 AM ADOLESCENT PSYCHIATRIST documented as of this encounter Care Teams Senior Associate Relationship Specialty Start Date End Date Clinic - [address] [phone] PCP - General 10/06/20 11/20/21 Luh Acharya PA-C [address] [place] [address] 169942 PCP - General Family Medicine 11/21/21 01/02/23 Toma Arguello NP [facility] [address] [place] [address] Nurse Practitioner Nurse Practitioner Psych/Mental Health 04/11/17 Laura Us MD [place] [address] [place] [address] Gastroenterology 12/20/18 Haven Buckner, DATA QUALITY CONSULTANT [address] [place] [address] 755762 Assigned PCP 05/22/21 11/26/21 Jenise España MD Assigned Heart and Vascular Provider 07/24/21 11/17/22 Tierra Cancino PA-C [address] [place] [address] Physician Panelbeater Urology 11/17/21 Luh Acharya PA-C [address] [place] [address] Assigned PCP 11/27/21 12/31/21 Tierra Cancino PA-C [address] [facility] [address] [place] [address] Assigned Surgical Provider 12/11/21 06/08/23 Haven Buckner, NICOLE [address] [place] [address] Assigned PCP 01/01/22 12/22/22 Luh Acharya PA-C [address] [place] [address] Assigned PCP 12/23/22 05/18/23 Haven Buckner, DATA QUALITY CONSULTANT [address] [place] [address] Assigned PCP 05/19/23 02/05/25 documented as of this encounter
--- OUTSIDE RECORDS SUMMARY | 2025-04-02 11:08 | XMS_ITS | Encounter Summary ---
Author Organization [place] Address [address] [facility] [place] [address] Care Team Providers Care Hydro Plant Operator Name Role Phone Kathy Glover MD Primary Care Provider Toma Arguello NP Unavailable [phone] Laura Us MD Unavailable Luh Acharya-C Unavailable +-[phone] [facility] Primary Care Provider Jas Bojorquez DO Unavailable +[phone] STEAM CLEANING MACHINE OPERATOR Unavailable +[phone] Jenise España MD Unavailable Unavailable Tierra Cancino-C Unavailable +[phone] Luh Acharya-C Primary Care Provider + Luh Acharya-C Unavailable + [phone] Tierra Cancino-C Unavailable +[phone] Haven Buckner STEAM CLEANING MACHINE OPERATOR Unavailable +[phone] Luh Acharya-C Unavailable +[phone] Haven Buckner STEAM CLEANING MACHINE OPERATOR Unavailable [phone] Encounter Details Date Type Department Care Team (Late st Contact Info) Description 08/18/2020 MyC Medical Advice [address] [phone] Raina Thomas Social History Tobacco Use Types [...] AM CDT Legal Sex Female 3:41 AM LABOR REPRESENTATIVE Gender Identity Female 01/18/2019 9:01 AM CDT [...] Total Score: 1 07/27/20 20 2:05 PM LABOR REPRESENTATIVE documented as of this encounter Care Teams Hydro Plant Operator Relationship Specialty Start Date End Date Kathy Glover MD [address] [place] [address] PCP - General Family Practice 06/03/15 10/05/20 [facility] [address] [place] [address] PCP - General 10/06/20 11/20/21 Luh Acharya PA-C [address] [place] [address] PCP - General Family Medicine 11/21/21 01/02/23 Toma Arguello NP [facility] [address] [place] [address] Nurse Practitioner Nurse Practitioner Psych/Mental Health 04/11/17 Laura Us MD [place] [place] [address] Gastroenterology 12/20/18 Luh Acharya PA-C [address] [place] [address] 550862 Assigned PCP 06/20/20 03/31/21 Jas Bojorquez DO [address] [place] [address] [id number] Assigned PCP 04/01/21 05/21/21 Haven Buckner, NICOLE [address] [place] [address] 277752 Assigned PCP 05/22/21 11/26/21 Jenise España MD Assigned Heart and Vascular Provider 07/24/21 11/17/22 Tierra Cancino PA-C [address] [facility] [address] [address] Physician Pin Maker Urology 11/17/21 Luh Acharya PA-C [address] [place] [address] Assigned PCP 11/27/21 12/31/21 Tierra Cancino PA-C [address] [place] [address] [place] [address] Assigned Surgical Provider 12/11/21 06/08/23 Haven Buckner, STEAM CLEANING MACHINE OPERATOR [address] [place] [address] Assigned PCP 01/01/22 12/22/22 Luh Acharya PA-C [facility] [place] [address] Assigned PCP 12/23/22 05/18/23 Haven Buckner, STEAM CLEANING MACHINE OPERATOR [facility] [place] [address] Assigned PCP 05/19/23 02/05/25 documented as of this encounter
--- OUTSIDE RECORDS SUMMARY | 2025-04-02 11:08 | XMS_ITS | Encounter Summary ---
Author Organization [place] Address [address] [facility] [place] [address] Care Team Providers Care Ed Tech Name Role Phone Toma Arguello YESICA Unavailable [phone] Laura Us MD Unavailable [facility] Primary Care Provider Haven Buckner CNP Unavailable +[phone] Jenise España MD Unavailable Unavailable Tierra Cancino-C Unavailable [phone] Luh Acharya-C Primary Care Provider + Luh Acharya-C Unavailable + [phone] Tierra Cancino-C Unavailable [phone] Haven Buckner CNP Unavailable [phone] Luh Acharya PA-C Unavailable [phone] Haven Buckner CNP Unavailable [phone] Reason for Visit * Reason Onset Date Comments Refill Request 08/26/2021 Encounter Details Date Type Department Care Team (Late st Contact Info) Description 08/26/2021 Cyndie Kowalski [facility] [address] [place] [address] Luh Acharya PA-C [address] [place] [address] [id number] Refill Request Social History Tobacco Use Types [...] AM CDT Legal Sex Female 3:41 AM EDUCATIONAL TECHNOLOGY SPECIALIST Gender Identity Female 01/18/2019 9:01 AM CDT [...] Manisha Patel RN - 08/31/2021 10:35 AM EDUCATIONAL TECHNOLOGY SPECIALIST Due for an Office visit for further refills, only fill for 30 days Manisha Patel RN, BSN [facility] Triage ATIONAL TECHNOLOGY SPECIALIST documented in this encounter Plan of [...] documented as of this encounter Care Teams Ed Tech Relationship Specialty Start Date End Date Clinic - Home [facility] [address] [address] PCP - General 10/06/20 11/20/21 Luh Acharay PA-C [address] [place] [address] PCP - General Family Medicine 11/21/21 01/02/23 Toma Arguello, HAND BOX COVERER [place] [place] [address] Nurse Practitioner Nurse Practitioner Psych/Mental Health 04/11/17 Laura Us MD [place] [address] [place] [address] Gastroenterology 12/20/18 Haven Buckner, NICOLE [address] [place] [address] Assigned PCP 05/22/21 11/26/21 Jenise España MD Assigned Heart and Vascular Provider 07/24/21 11/17/22 Tierra Cancino PA-C [address] [place] [address] Physician Saloon Keeper Urology 11/17/21 Luh Acharya PA-C [address] [place] [address] 660932 Assigned PCP 11/27/21 12/31/21 Tierra Cancino PA-C [address] [place] [address] Assigned Surgical Provider 12/11/21 06/08/23 Haven Buckner, NICOLE [address] [place] [address] Assigned PCP 01/01/22 12/22/22 Luh Acharya PA-C [address] [place] [address] Assigned PCP 12/23/22 05/18/23 Haven Buckner, NICOLE [address] [place] [address] Assigned PCP 05/19/23 02/05/25 documented as of this encounter
--- OUTSIDE RECORDS SUMMARY | 2025-04-02 11:08 | XMS_ITS | Encounter Summary ---
Author Organization [place] Address [address] [facility] [place] [address] Care Team Providers Care Replenishment Specialist Name Role Phone Toma Arguello YESICA Unavailable [phone] Laura Us MD Unavailable uLh Acharya-C Unavailable + [phone] [facility] Primary Care Provider Jas Bojorquez DO Unavailable [phone] Haven Buckner CNP Unavailable [phone] Jenise España MD Unavailable Unavailable Tierra Cancino-C Unavailable Luh Acharya-C Primary Care Provider + Luh Acharya-C Unavailable + [phone] T[place] Cancino-C Unavailable [phone] Haven Buckner CNP Unavailable [phone] Luh Acharya-C Unavailable + [phone] Haven Buckner CNP Unavailable +[phone] Reason for Visit * Reason Onset Date Comments MyChart Communication 02/21/2021 Encounter Details Date Type Department Care Team (Late st Contact Info) Description 02/21/2021 MyC Medical Advice [facility] [address] [place] [address] [phone] Haven Buckner, MECHANICAL ENGINEERING DRAFTSPERSON [address] [place] [address] MyChart Communication Social History Tobacco Use Types [...] AM CDT Legal Sex Female 3:41 AM GLASS SAGGER Gender Identity Female 01/18/2019 9:01 AM CDT [...] advise Thank you Manisha Patel RN, BSN [place] Triage documented in this encounter Plan of [...] Total Score: 1 07/27/20 20 2:05 PM GLASS SAGGER documented as of this encounter Care Teams Replenishment Specialist Relationship Specialty Start Date End Date Clinic - [facility] [address] [place] [id number] PCP - General 10/06/20 11/20/21 Luh Acharya PA-C [address] [place] [address] PCP - General Family Medicine 11/21/21 01/02/23 Toma Arguello NP [address] [address] Nurse Practitioner Nurse Practitioner Psych/Mental Health 04/11/17 Laura Us MD [address] [address] Gastroenterology 12/20/18 Luh Acharya PA-C [address] [place] [address] Assigned PCP 06/20/20 03/31/21 Jas Bojorquez DO [address] [place] [address] [phone] Assigned PCP 04/01/21 05/21/21 Haven Buckner, NICOLE [address] [place] [address] [id number] Assigned PCP 05/22/21 11/26/21 Jenise España MD Assigned Heart and Vascular Provider 07/24/21 11/17/22 Tierra Cancino PA-C [address] [place] [address] Physician Poultry Trimmer Urology 11/17/21 Luh Achayra PA-C [address] [place] [address], [place] [address] Assigned PCP 11/27/21 12/31/21 Tierra Cancino PA-C [address] [place] [address] Assigned Surgical Provider 12/11/21 06/08/23 Haven Buckner, MECHANICAL ENGINEERING DRAFTSPERSON [address] [place] [address] Assigned PCP 01/01/22 12/22/22 Luh Acharya PA-C [address] [place] [address] Assigned PCP 12/23/22 05/18/23 Haven Buckner, MECHANICAL ENGINEERING DRAFTSPERSON [address] [place] [address] Assigned PCP 05/19/23 02/05/25 documented as of this encounter
--- OUTSIDE RECORDS SUMMARY | 2025-04-02 11:08 | XMS_ITS | Encounter Summary ---
Author Organization [place] Address [address] [facility] [place] [address] Care Team Providers Care Spearer Name Role Phone Toma Arguello YESICA Unavailable [phone] Laura Us MD Unavailable [facility] Primary Care Provider Haven Buckner CNP Unavailable +-2 Jenise España MD Unavailable Unavailable Tierra Cancino-C Unavailable [phone] Luh Acharya-C Primary Care Provider + Luh Acharya-C Unavailable +[phone] Tierra Cancino-C Unavailable [phone] Haven Buckner CNP Unavailable +[phone] Luh Acharya PA-C Unavailable +[phone] Haven Buckner CNP Unavailable [phone] Reason for Visit * Reason Comments Medication Refill Encounter Details Date Type Department Care Team (Late st Contact Info) Description 07/20/2021 [place] [address] [facility] [address] [place] [address] Luh Acharya PA-C [address] [place] [address] [phone] Medication Refill Social History Tobacco Use Types [...] AM CDT Legal Sex Female 3:41 AM FOCUS PULLER Gender Identity Female 01/18/2019 9:01 AM CDT [...] Miscellaneous Notes * Telephone Encounter - Manisha aPtel RN - 07/23/2021 11:44 PM CDT Refill per RN protocol Manisha Patel RN, BSN [place] Triage documented in this encounter Plan of [...] Spearer Relationship Specialty Start Date End Date Clinic - [address] [place] [address] PCP - General 10/06/20 11/20/21 Luh Acharya PA-C [address] [place] [address] PCP - General Family Medicine 11/21/21 01/02/23 Toma Arguello, COMMERCIAL AIRLINE P[employer]OT [place] [address] [place] [address] Nurse Practitioner Nurse Practitioner Psych/Mental Health 04/11/17 Laura Us MD [address] [address] Gastroenterology 12/20/18 Haven Buckner, CENTRAL SERVICE TECHNICIAN [address] [place] [address] [phone] Assigned PCP 05/22/21 11/26/21 Jenise España MD Assigned Heart and Vascular Provider 07/24/21 11/17/22 Tierra Cancino PA-C [address] [place] [address] Physician Detective Urology 11/17/21 Luh Acharya PA-C [address] [place] [address] Assigned PCP 11/27/21 12/31/21 Tierra Cancino PA-C [address] [place] [address] Assigned Surgical Provider 12/11/21 06/08/23 Haven Buckner, NICOLE [address] [place] [address] Assigned PCP 01/01/22 12/22/22 Luh Acharya PA-C [address] [place] [address], [place] [address] Assigned PCP 12/23/22 05/18/23 Haven Buckner, NICOLE [address] [place] [address] Assigned PCP 05/19/23 02/05/25 documented as of this encounter
--- OUTSIDE RECORDS SUMMARY | 2025-04-02 11:08 | XMS_ITS | Encounter Summary ---
Author Organization [employer] Address [address] [facility] [place] [address] Care Team Providers Care Pet Care Technician Name Role Phone Kathy Glover MD Primary Care Provider Toma Arguello NP Unavailable [phone] Kathy Glover MD Unavailable [phone] Kathy Glover MD Unavailable [phone] Laura Us MD Unavailable Luh Acharya PA-C Unavailable [phone] Kathy Glover MD Unavailable [phone] Luh Acharya PA-C Unavailable +[phone] Edward Marlow MD Unavailable [phone] [facility] Primary Care Provider Jas Bojorquez DO Unavailable [phone] Haven Buckner CNP Unavailable Jenise España MD Unavailable Unavailable Tierra CancinoC Unavailable [phone] Luh Acharya PA-C Primary Care Provider + Luh Acharya PA-C Unavailable [phone] Barak Tierra Man PA-C Unavailable BucknerHaven lofton CNP Unavailable [phone] Luh Acharya PA-C Unavailable [phone] BucknerHaven lofton CNP Unavailable +[phone] Reason for Visit * Reason Comments Medication Refill Gabapentin Encounter Details Date Type Department Care Team (Late st Contact Info) Description 03/05/[address] [address] [place] [address] [place] [address] [phone] Medication Refill (Gabapentin) Social History Tobacco Use Types Packs/Day Years Used Date Smoking Tobacco: Former Cigarettes 1 20 Smokeless Tobacco: Never Alcohol Use Standard Drinks/Week Comments Yes 0 (1 standard drink = 0.6 oz pur e alcohol) 1 glass wine daily Comments No Sex and Gender Information Value Date Recorded Sex Assigned at Female 01/18/2019 9:01 AM CDT Legal Sex Female 3:41 AM MANAGER UTILIZATION MANAGEMENT Gender Identity Female 01/18/2019 9:01 AM CDT Sexual Orientation Straight 01/18/2019 9: 01 AM CDT documented as of this encounter Miscellaneous Notes * Telephone Encounter - Gracie Gipson CMA - 03/05/2017 2:13 PM CDT Controlled Substance Refill Request for Gabapentin Problem List Complete: Yes Last Written Prescription Date: 02/07/2017 Last Fill Quantity: 90, # refills: 0 [place] [facility]: 02/22/17 (evisit) 01/05/17 (in- office visit) Clinic visit frequency required: Q 6 months Future Office visit: Controlled substance agreement on file: Yes: Date 01/05/17. [facility] checked in past 6 months? No, route to RN Gracie Gipson CMA documented in this encounter Plan [...] documented as of this encounter Care Teams Pet Care Technician Relationship Specialty Start Date End Date Kathy Glover MD [address] [place] [id number] PCP - General Family Practice 06/03/15 10/05/20 Kathy Glover MD [address] [place] [address] PCP - Assigned PCP 07/25/15 11/19/[address] [address] PCP - General 10/06/20 11/20/21 Luh Acharya PA-C [address] [place] [address] PCP - General Family Medicine 11/21/21 01/02/23 Toma Arguello NP [address] [address] Nurse Practitioner Nurse Practitioner Psych/Mental Health 04/11/17 Kathy Glover MD [address] [place] [address], [place] [address] Assigned PCP 07/25/15 12/20/19 Laura Us MD [address] [place] [address], [place] [address] Gastroenterology 12/20/18 Luh Acharya PA-C [address] [place] [address], [place] [phone] Assigned PCP 12/21/19 01/17/20 Kathy Glover MD [address] [place] [address] Assigned PCP 01/18/20 06/19/20 Luh Acharya, ERFUGIO [address] [place] [address] 188432 Assigned PCP 06/20/20 03/31/21 Edward Marlow MD [facility] [address] Assigned Surgical Provider 07/09/20 07/31/20 Jas Bojorquez DO [address] [place] [address] [phone] Assigned PCP 04/01/21 05/21/21 Haven Buckner, BRASS SORTER [address] [place] [address] Assigned PCP 05/22/21 11/26/21 Jenise España MD Assigned Heart and Vascular Provider 07/24/21 11/17/22 Tierra Cancino PA-C [address] [place] [address] Physician Armhole Baster Jumpbasting Urology 11/17/21 Luh Acharya PA-C [address] [place] [address], [place] [address] Assigned PCP 11/27/21 12/31/21 Tierra Cancino PA-C [address] [place] [address] Assigned Surgical Provider 12/11/21 06/08/23 Haven Buckner, NICOLE [address] [place] [address], [place] [address] Assigned PCP 01/01/22 12/22/22 Luh Acharya PA-C [address] [place] [address] Assigned PCP 12/23/22 05/18/23 Haven Buckner, BRASS SORTER [address] [place] [address], [place] [address] Assigned PCP 05/19/23 02/05/25 documented as of this encounter
--- OUTSIDE RECORDS SUMMARY | 2025-04-02 11:08 | XMS_ITS | Encounter Summary ---
Author Organization [place] Address [address] [place] [address] Care Team Providers Care Implement Mechanic Name Role Phone Toma Arguello YESICA Unavailable [phone] Laura Us MD Unavailable Jenise España MD Unavailable Unavailable Tierra CancinoC Unavailable Luh Acharya PA-C Primary Care Provider + Luh Acharya PA-C Unavailable [phone] Tierra CancinoC Unavailable Haven Buckner CNP Unavailable [phone] Luh Acharya PA-C Unavailable [phone] Haven Buckner CNP Unavailable Reason for Visit * Reason Onset Date Comments MyChart Communication 12/06/2021 Encounter Details Date Type Department Care Team (Late st Contact Info) Description 12/06/2021 [facility] [address] [address] Luh Acharya PA-C [address] [place] [address] MyChart Communication Social History Tobacco Use Types [...] AM CDT Legal Sex Female 3:41 AM ACCOUNTING METHODS ANALYST Gender Identity Female 01/18/2019 9:01 AM CDT [...] Total Score: 5 10/25/19 22 7:03 AM ACCOUNTING METHODS ANALYST documented as of this encounter Care Teams Implement Mechanic Relationship Specialty Start Date End Date Luh Acharya PA-C [address] [place] [address] PCP - General Family Medicine 11/21/21 01/02/23 Toma Arguello NP [place] [address] [place] [address] Nurse Practitioner Nurse Practitioner Psych/Mental Health 04/11/17 Laura Us MD [place] [address] [place] [address] Gastroenterology 12/20/18 Jenise España MD Assigned Heart and Vascular Provider 07/24/21 11/17/22 Tierra Cancino PA-C [address] [place] [address] Physician Toolroom Machinist Urology 11/17/21 Luh Acharya PA-C [address] [place] [address] Assigned PCP 11/27/21 12/31/21 Tierra Cancino PA-C [address] [place] [address] Assigned Surgical Provider 12/11/21 06/08/23 Haven Buckner CNP [address] [place] [address] Assigned PCP 01/01/22 12/22/22 Luh Acharya PA-C [address] [place] [address] Assigned PCP 12/23/22 05/18/23 Haven Buckner CNP [address] [place] [address] Assigned PCP 05/19/23 02/05/25 documented as of this encounter
--- OUTSIDE RECORDS SUMMARY | 2025-04-02 11:08 | XMS_ITS | Data Portability ---
Author Organization [place] [facility] Address [address] [facility] [address] [place] [address] Care Team Providers Care Medical Records Clerk Name Role Phone CRISTA YOUNG Primary Care Provider Assessment No assessment recorded. Plan of Treatment Reminders Order Date Submit Date Provider Last Modified By Organization Details Last Modified Time Details Appointments None recorded. Lab urinalysis, dipstick 2023 024 hprim [facility], [address], [address], [place], [address], 09:57:43 urinalysis, dipstick 2023 024 [email or web address] 4 [facility], [address], [place], [address], 15:05:25 Referral colon & rectal surgeon referral - for colonoscopy and rule out of possible colovesical fistula..Pl ease call pt 2023 024 [email or web address] [facility], [address], [address], [place], [address], 12:55:41 Procedures None recorded. Surgeries None recorded. Imaging CT, abdomen + pelvis, w/o contrast 2023 024 [place] [facility], [address], [address], [place], [address], 19:56:22 Medication Orders None recorded. Patient TargetsNo targets recorded. Patient InstructionsNo instructions recorded. Reason for Referral Colon & Rectal Surgeon Refer ral for Recurrent urinary tract infection for colonoscopy and rule out of possible colovesical fistula..Please call pt Referring Physician: Tan Matt, Urology, Encounter Date: 06/25/2024 Results Created Date Observation Date Name Description Value Unit Range Abnormal Flag Note LastModifiedBy Organization Detail LastModifiedTime 05/22/20 24 05/22/2024 urina lysis , dipst ick BLOOD Negati ve Not Available [facility] [address], [place], [address], 05/22/2024 15:03:50 05/22/20 24 05/22/2024 urina lysis , dipst ick BILIRUBIN Negati ve Not Available [facility] [address], [place], [address], 05/22/2024 15:03:50 05/22/20 24 05/22/2024 urina lysis , dipst ick UROBILINOGEN 0.2 mg/dL (Norm) Not Available [facility] [address], [place], [address], 05/22/2024 15:03:50 05/22/20 24 05/22/2024 urina lysis , dipst ick KETONES Negati ve Not Available [facility] [address], [place], [address], 05/22/2024 15:03:50 05/22/20 24 05/22/2024 urina lysis , dipst ick PROTEIN Negati ve Not Available [facility] [address], [place], [address], 05/22/2024 15:03:50 05/22/20 24 05/22/2024 urina lysis , dipst ick NITRITES Negati ve Not Available [facility] [address], [place], [address], 05/22/2024 15:03:50 05/22/20 24 05/22/2024 urina lysis , dipst ick GLUCOSE Negati ve Not Available [facility] [address], [place], [address], 05/22/2024 15:03:50 05/22/20 24 05/22/2024 urina lysis , dipst ick p.H. 6.0 Not Available [facility] [address], [place], [address], 05/22/2024 15:03:50 05/22/20 24 05/22/2024 urina lysis , dipst ick S.G. (Specific Cypress) 1.015 Not Available [facility] [address], [place], [address], 05/22/2024 15:03:50 05/22/20 24 05/22/2024 urina lysis , dipst ick LEUKOCYTES Negati ve Not Available [facility] [address], [place], [address], 05/22/2024 15:03:50 06/25/20 24 06/25/2024 urina lysis , dipst ick Color-Status Yellow Not Available [facility] [address], [place], [address], 06/25/2024 09:57:03 06/25/2006/25/2024 urina lysis , dipst ick Clarity-Stat us Clear Not Available [facility] [address], [place], [address], 06/25/2024 09:57:03 06/25/2006/25/2024 urina lysis , dipst ick Glucose-Stat us Negati ve Not Available [address], [place], [address], 06/25/2024 09:57:03 06/25/2006/25/2024 urina lysis , dipst ick Bilirubin-St atus Negati ve Not Available [address], [place], [address], 06/25/2024 09:57:03 06/25/2006/25/2024 urina lysis , dipst ick Ketones-Stat us Negati ve Not Available [address], [place], [address], 06/25/2024 09:57:03 06/25/2006/25/2024 urina lysis , dipst ick Sp Cypress-Stat us 1.015 Not Available [address], [place], [address], 06/25/2024 09:57:03 06/25/2006/25/2024 urina lysis , dipst ick pH-Status 7.5 Not Available [address], [place], [address], 06/25/2024 09:57:03 06/25/2006/25/2024 urina lysis , dipst ick Nitrates-Sta tus negati ve Not Available [address], [place], [address], 06/25/2024 09:57:03 06/25/2006/25/2024 urina lysis , dipst ick Blood-Status Negati ve Not Available [address], [place], [address], 06/25/2024 09:57:03 06/25/20 24 06/25/2024 urina lysis , dipst ick Leuko-Status Modera te Not Available [address], [place], [address], 06/25/2024 09:57:03 06/25/2006/25/2024 urina lysis , dipst ick Specimen Type Voided Not Available [address], [place], [address], 06/25/2024 09:57:03 06/25/20 24 06/25/2024 urina lysis , dipst ick Performed by hprim Not Available [address], [place], [address], 06/25/2024 09:57:03 05/28/20 24 05/28/2024 CT, abdom en + pelvi s, w/o contr ast No observ ation record ed. [facility] [address], [place], [address], 05/30/2024 08:25:09 Result Notes None recorded. Problems Name Problem SNOMED Code Status Onset Date Resolution Date Notes Provider Name and Address Organization Details Recorded Time Recurrent urinary tract infection 338467971 Active 2023 Tan Matt MD [address] [address], [place], [address], [place] [facility] 16:04:06 Microscopic hematuria 402387164 Active 2023 Tan Matt MD [address], [place], [address], [facility] 4 11:08:34 Problem Notes None recorded. Procedures Surgical History Date Name Laterality Status Provider Name and Address Organization Details Recorded Time 4 Cystoscopy- female completed Tan Matt MD [address], [place], [address], [facility] 06/25/2024 11:06:57 4 Urinalysis completed Sylvia Prim [facility] 06/25/2024 09:56:48 Bladder Scan completed Rhiannon GriffithalCuong eugeneo [facility] 05/22/2024 15:14:19 Imaging Results None recorded. Procedure Notes None recorded. Medical Equipment None Reported. Allergies Allergen ID Allergen Name Allergen Category Reaction Reaction Severity Criticality Documentation Date Start Date Code Code System Note Provider Name and Address Organization Details Recorded Time 475949 Zyrtec medicatio n Not available Not available Not available 05/22/2024 09306 RxNorm G[address] Saadia [facility] 4 15:09:40 647542 Flagyl medicatio n Not available Not available Not available 05/22/2024 23760 6 RxNorm Gise[address]jelani Hammondida Zee [facility] 4 15:09:46 Medications Name Sig Start Date Stop Date Status Note LastModified by Organization Details LastModified Time tizanidine 2 mg tablet TAKE 1 TO 2 TABLETS BY MOUTH EVERY 6 TO 8 HOURS NEEDED. NOT TO EXCEED 3 DOSES IN 24 HOURS 05/22 completed Not Available Not Available Not Available trazodone 50 mg tablet TAKE 1 TABLET BY MOUTH DAILY 05/22 completed Not Available Not Available Not Available hydrocodone 5 mg-acetamin ophen 325 mg tablet TAKE 1 TO 2 TABLETS BY MOUTH EVERY 6 HOURS NEEDED FOR CHRONIC PAIN 2023 active Not Available Not Available Not Avai lable prednisone 20 mg tablet TAKE 2 TABLETS BY MOUTH EVERY DAY FOR 3 DAYS 05/22 completed Not Available Not Available Not Available ciprofloxac in 250 mg tablet TAKE 1 TABLET BY MOUTH TWICE DAILY 05/22 completed Not Available Not Available Not Available ciprofloxac in 500 mg tablet TAKE 1 TABLET BY MOUTH TWICE DAILY FOR 7 DAYS 05/22 completed Not Available Not Available Not Available sulfamethox azole 800 mg-trimetho prim 160 mg tablet TAKE 1 TABLET BY MOUTH TWICE DAILY FOR 2 WEEKS 06/25 completed Not Available Not Available Not Available amitriptyli ne 25 mg tablet TAKE 1 TABLET BY MOUTH EVERY NIGHT AT BEDTIME active Not Available Not Available No t Available cephalexin 500 mg capsule TAKE 1 CAPSULE BY MOUTH TWICE DAILY 05/22 completed Not Available Not Available Not Available polymyxin B sulfate 10,000 unit-trimet hoprim 1 mg/mL eye drops 05/22 completed Not Available Not Available Not Available omeprazole 20 mg capsule,del ayed release TAKE 1 CAPSULE BY MOUTH EVERY DAY active Not Available Not Available No t Available lisinopril 20 mg-hydrochl orothiazide 25 mg tablet TAKE 1 TABLET BY MOUTH DAILY active Not Available Not Available No t Available topiramate 200 mg tablet TAKE 1 TABLET BY MOUTH ONCE DAILY active Not Available Not Available No t Available metoprolol succinate ER 25 mg tablet,exte nded release 24 hr TAKE 1 TABLET BY MOUTH EVERY DAY 05/22 completed Not Available Not Available Not Available epinephrine 0.3 mg/0.3 mL injection, auto-inject or 05/22 completed Not Available Not Available Not Available cefuroxime axetil 500 mg tablet TAKE 1 TABLET BY MOUTH TWICE DAILY FOR 10 DAYS 05/22 completed Not Available Not Available Not Available topiramate 100 mg tablet TAKE 1 TABLET BY MOUTH ONCE DAILY active Not Available Not Available No t Available rosuvastati n 20 mg tablet TAKE 1 TABLET BY MOUTH EVERY DAY active Not Available Not Available No t Available bupropion HCl XL 150 mg 24 hr tablet, extended release TAKE 3 TABLETS BY MOUTH EVERY DAY 05/22 completed Not Available Not Available Not Available topiramate 50 mg tablet TAKE 1 TABLET BY MOUTH DAILY 05/22 completed Not Available Not Available Not Available nitrofurant oin monohydrate /macrocryst als 100 mg capsule TAKE 1 CAPSULE BY MOUTH EVERY 12 HOURS FOR 5 DAYS - WITH MEAL/FOOD . 05/22 completed Not Available Not Available Not Available duloxetine 20 mg capsule,del ayed release TAKE 1 CAPSULE BY MOUTH DAILY active Not Available Not Available No t Available duloxetine 30 mg capsule,del ayed release TAKE 1 CAPSULE BY MOUTH ONCE DAILY 05/22 completed Not Available Not Available Not Available duloxetine 60 mg capsule,del ayed release TAKE 1 CAPSULE BY MOUTH EVERY DAY 05/22 completed Not Available Not Available Not Available omega-3 acid ethyl esters 1 gram capsule TAKE 1 CAPSULE BY MOUTH EVERY DAY 05/22 completed Not Available Not Available Not Available pregabalin 50 mg capsule TAKE 1 CAPSULE BY MOUTH EVERY MORNING 05/22 completed Not Available Not Available Not Available pregabalin 150 mg capsule TAKE 1 CAPSULE BY MOUTH DAILY 05/22 completed Not Available Not Available Not Available pregabalin 225 mg capsule TAKE 1 CAPSULE BY MOUTH ONCE DAILY active Not Available Not Available No t Available desvenlafax ine succinate ER 100 mg tablet,exte nded release 24 hr TAKE 1 TABLET BY MOUTH DAILY 05/22 completed Not Available Not Available Not Available estradiol 10 mcg vaginal tablet INSERT 1 TABLET VAGINALLY EVERY NIGHT AT BEDTIME FOR 2 WEEKS THEN INSERT 1 TABLET VAGINALLY 2 TIMES A WEEK 05/22 completed Not Available Not Available Not Available duloxetine 40 mg capsule,del ayed release TAKE 1 CAPSULE BY MOUTH EVERY NIGHT 05/22 completed Not Available Not Available Not Available Ubrelvy 100 mg tablet TAKE 1 TABLET BY MOUTH 1 TIME. MAY REPEAT DOSE 1 TIME AFTER 2 HOURS NEEDED. NOT TO EXCEED 200 MG IN 24 HOURS 05/22 completed Not Available Not Available Not Available Vitals Date Recorded Body height Body mass index (BMI) Body weight Provider Name and Address Organization Details Last Updated DateTime 05/22/2024 167.64 cm 30.8 kg/m2 43540.14 brad veras [facility] 05/22/2024 15:08:48 Date Recorded Body height Body mass index (BMI) Body weight Provider Name and Address Organization Details Last Updated DateTime 06/25/2024 167.64 cm 30.8 kg/m2 73611.14 rbad Lombardo [facility] 06/25/2024 09:56:02 Social History Question Answer Notes LastModified by Organizat ion Details LastModified Time Tobacco Smoking Status Current Every Day Smoker Rhiannon yi, [facility] 05/22/2024 15:13:58 What Is Your Level Of Caffeine Consumption? Moderate Information not available 05/22/2024 Which Illicit Or Recreational Drugs Have You Used? Gummies Information not available 05/22/2024 What Was The Date Of Your Most Recent Tobacco Screening? 06/25/2024 Information not available 06/25/2024 Has Tobacco Cessation Counseling Been Provided? Yes Information not available 06/25/2024 On What Date Was Tobacco Cessation Counseling Provided? 06/25/2024 Information not available 06/25/2024 Sex: Unknown Functional Status Question Answer Note LastModified by Organizat ion Details LastModified Time Do you use any illicit or recreational drugs? Yes Information not available 05/22/2024 Do you or have you ever used any other forms of tobacco or nicotine? No Information not available 05/22/2024 What is your level of alcohol consumption? Moderate 1 wine cooler/ni ght Information not available 05/22/2024 Mental Status None recorded. Family History Nothing Reported. Medical History Condition Response Kidney Stones N Gynecological HistoryNo gynecological history recorded. Obstetrics History GPAL:G 0 P 0 0 0 0 Immunizations Vaccine Type Date Status Note Provider Nam e and Address Organization Details Recorded Time Influenza, MDCK, quadrivalent, preservative 3 completed Miletzi Hammond-[place] ro null, [facility] 05/22/2024 15:08:53 zoster recombinant 0 completed Miletzi Hammond-[place] ro null, [facility] 05/22/2024 15:08:53 zoster recombinant 0 completed Miletzi Hammond-[place] ro null, [facility] 05/22/2024 15:08:53 COVID-19, mRNA, LNP-S, PF, 100 mcg/0.5mL dose or 50 mcg/0.25mL dose 2 completed Miletzi Hammond-Apple ro null, [facility] 05/22/2024 15:08:53 COVID-19, mRNA, LNP-S, PF, 30 mcg/0.3 mL dose 1 completed Miletzi Hammond-[place] ro null, [facility] 05/22/2024 15:08:53 COVID-19, mRNA, LNP-S, PF, 30 mcg/0.3 mL dose 1 completed Miletzi Hammond-[place] ro null, [facility] 05/22/2024 15:08:53 influenza, unspecified formulation 4 completed Miletzi Hammond-Apple ro null, [facility] 05/22/2024 15:08:53 influenza, unspecified formulation 1 completed Miletzi Hammond-[place] ro null, [facility] 05/22/2024 15:08:53 Tdap 2 completed Miletzi Hammond-Apple ro null, [facility] 05/22/2024 15:08:53 Tdap 1 completed Miletzi Hammond-[place] ro null, [facility] 05/22/2024 15:08:53 Influenza, split virus, trivalent, preservative 3 completed Miletzi Hammond-Apple ro null, [facility] 05/22/2024 15:08:53 Influenza, split virus, trivalent, preservative 3 completed Miletzi Hammond-[place] ro null, [facility] 05/22/2024 15:08:53 Influenza, split virus, quadrivalent, PF 0 completed Miletzi Hammond-Apple ro null, [facility] 05/22/2024 15:08:53 Influenza, split virus, quadrivalent, PF 8 completed Miletzi Hammond-[place] ro null, [facility] 05/22/2024 15:08:53 Influenza, split virus, quadrivalent, PF 5 completed Miletzi Hammond-[place] ro null, [facility] 05/22/2024 15:08:53 Influenza, split virus, quadrivalent, PF 1 completed Miletzi Hammond-[place] ro null, [facility] 05/22/2024 15:08:53 Influenza, split virus, quadrivalent, PF 9 completed Rhiannon [place]rig[place]-Apple ro null, [facility] 05/22/2024 15:08:53 Influenza, split virus, quadrivalent, PF 6 completed Rhiannon Hammond-Apple ro null, [facility] 05/22/2024 15:08:53 Influenza, split virus, quadrivalent, PF 7 completed Rhiannon Hammond-Apple ro null, [facility] 05/22/2024 15:08:53 Influenza, split virus, quadrivalent, PF 2 completed Rhiannon [place]-Apple ro null, [facility] 05/22/2024 15:08:53 Past Encounters Encounter ID Performer Location Encounter Start Date Encounter Closed Date Diagnosis/Indication Diagnosis SNOMED-CT Code Diagnosis ICD10 Code Diagnosis Note [id number] Tan Matt MD [address] [place] [address] 05/22/2024 14:38:48 05/26/2024 14:14:40 Recurrent urinary tract infection 267487288 N39.0 - Bladder empties well- Suspect origin from gut/stool earnest - consistent ly hwang sensitive E Coli- Recommende d CT abdomen/pe lvis to r/o other anatomic etiology- Start Theracran cranberry supplement - If CT scan negative, plan to start vaginal estrogen cream 3x/week [id number] [facility] [address] [place] [address] 06/25/2024 09:39:19 06/26/2024 16:48:15 Recurrent urinary tract infection 991917566 N39.0 - Exact etiology for her recurrent infections is unknown.-R ecurrent infections with pansensiti ve E. coli suggests reinfectio n with gut earnest. I think it is unlikely that she has a colovesica l fistula but she has not had any recent colonoscop y and so I am referring her to colorectal surgery for further evaluation . There is no obvious fistula site seen on cystoscopy , but this is not diagnostic . Microscopic hematuria 19 [id number] R31.29 - Cystoscopy and CT scan are unremarkab le except possible colovesica l fistula. There was not a fistula visualized on cystoscopy today. Health Concerns Section Related Observation LastModified by Organization Detai ls LastModified Time None Recorded Concern Status LastModified by Organization Details LastModified Time None Recorded Advance Directives Directive None Recorded Payers Insurance Date Sequence Insurance Name Policy Number Policy Briggs Covered Member ID Briggs Member ID Guarantor Name 06/25/2024 1 [place] [id number] Yenni E Odenthal [id number] Yenni Odenthal Notes Date Note Type Note Provider Name and Address Organization Details Recorded Time 05/22/2024 text/html Referred for recurrent urinary tract infections. I reviewed extensive clinic notes and urine cultures from [facility]. This includes the most recent clinic note from Dr. Young dated 11/22/2023 and urine culture results showing pansensitive E. coli dated 04/20/2024, 03/26/2024 and 01/21/2024. She reports issues with frequent UTIs over the last 6 to 7 years, which she attributes to flareups of diarrhea causing issues with perineal hygiene. She has been menopausal for about 7 years or more. She is not sexually active. Infections have presented with urgency, dysuria and frequency and she did have 1 febrile UTI with flank pain in recent months. This was treated as an outpatient. She reports seeing a urologist with [facility] in [place] a few years ago but I do not have those records. She denies have any imaging or invasive testing done. She reports normal force of stream and no difficulty emptying. Urinalysis today is normal. Postvoid residual 108 mL. Tan Matt MD [address], [place], [address], [place] [facility] 05/22/2024 16:04:31 06/25/2024 text/html 05/22/24: Referred for recurrent urinary tract infections. I reviewed extensive clinic notes and urine cultures from [facility]. This includes the most recent clinic note from Dr. Young dated 11/22/2023 and urine culture results showing pansensitive E. coli dated 04/20/2024, 03/26/2024 and 01/21/2024. She reports issues with frequent UTIs over the last 6 to 7 years, which she attributes to flareups of diarrhea causing issues with perineal hygiene. She has been menopausal for about 7 years or more. She is not sexually active. Infections have presented with urgency, dysuria and frequency and she did have 1 febrile UTI with flank pain in recent months. This was treated as an outpatient. She reports seeing a urologist with [facility] in [place] a few years ago but I do not have those records. She denies have any imaging or invasive testing done. She reports normal force of stream and no difficulty emptying. Urinalysis today is normal. Postvoid residual 108 mL. 06/25/24: CT scan reviewed from 05/28/2024 shows gas within the bladder lumen and colonic diverticula without acute diverticulitis. No inflammatory changes or loculated fluid collections. She presents today for further workup with cystoscopy. Tan Matt MD [address], [place], [address], [facility] 06/25/2024 11:10:40 OBGyn Episode No OBEpisode recorded.
--- OUTSIDE RECORDS SUMMARY | 2025-04-02 11:08 | XMS_ITS | Encounter Summary ---
Author Organization [place] Address [address] [facility] [place] [address] Care Team Providers Care Home Service Demonstrator Name Role Phone Toma Arguello YESICA Unavailable Laura Us MD Unavailable Luh Acharya-C Unavailable + [phone] [facility] Primary Care Provider Jas Bojorquez DO Unavailable [phone] Haven Buckner CNP Unavailable [phone] Jenise España MD Unavailable Unavailable Tierra Cancino-C Unavailable Luh Acharya-C Primary Care Provider + Luh Acharya-C Unavailable + [phone] Tierra Cancino-C Unavailable [phone] Haven Buckner CNP Unavailable +[phone] Luh Acharya-C Unavailable + [phone] Haven Buckner CNP Unavailable +[phone] Reason for Visit * Reason Onset Date Comments MyChart Communication 12/22/2020 Encounter Details Date Type Department Care Team (Late st Contact Info) Description 12/22/2020 MyC Medical Advice [address] [phone] Luh Acharya PA-C [address] [place] [address] [phone] MyChart Communication Social History Tobacco Use Types [...] AM CDT Legal 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 Juan Pablo Hernandez RN [facility] [place] Triage * Telephone Encounter - Haven Navarro [...] last office notes. Persistent insomnia- managed by [facility] Clinic of Neurology - Dr. Nash Chin. [...] discuss this and possible alternatives. 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 documented as of this encounter Care Teams Home Service Demonstrator Relationship Specialty Start Date End Date Clinic - [facility] [address] [place] [address] [id number] PCP - General 10/06/20 11/20/21 Luh Acharya PA-C [address] [place] [address] PCP - General Family Medicine 11/21/21 01/02/23 Toma Arguello NP [place] [address] [place] [address] Nurse Practitioner Nurse Practitioner Psych/Mental Health 04/11/17 Laura Us MD [place] [address] [place] [address] Gastroenterology 12/20/18 Luh Acharya PA-C [address] [place] [address] [phone] Assigned PCP 06/20/20 03/31/21 Jas Bojorquez DO [address] [place] [address] [phone] Assigned PCP 04/01/21 05/21/21 Haven Buckner, SUPERVISOR TYPE DISK QUALITY CONTROL [address] [place] [address] [phone] Assigned PCP 05/22/21 11/26/21 Jenise España MD Assigned Heart and Vascular Provider 07/24/21 11/17/22 Tierra Cancino PA-C [address] [address] Physician Superintendent Terminal Urology 11/17/21 Luh Acharya PA-C [address] [place] [address] Assigned PCP 11/27/21 12/31/21 Tierra Cancino PA-C [address] [place] [address] Assigned Surgical Provider 12/11/21 06/08/23 Haven Buckner, SUPERVISOR TYPE DISK QUALITY CONTROL [address] [place] [address] 41825 Assigned PCP 01/01/22 12/22/22 Luh Acharya PA-C [address] [place] [address] 43841 Assigned PCP 12/23/22 05/18/23 Haven Buckner, SUPERVISOR TYPE DISK QUALITY CONTROL [address] [place] [address] 87634 Assigned PCP 05/19/23 02/05/25 documented as of this encounter
--- OUTSIDE RECORDS SUMMARY | 2025-04-02 11:08 | XMS_ITS | Clinical Summary ---
Author Organization [facility] Address [address] [place] [address] Phone Care Team Providers Care Perishable Freight Inspector Name Role Phone Kathy Glover MD Primary Care Provider Medications HYDROcodone-elysia taminophen (LORCET PLUS) 10-325 MG per tablet Take 3-4 tabs as needed 0 7 Active DULoxetine (CYMBALTA) [address] capsule Take 1 capsule 2 times daily 0 7 Active zolpidem (AMBIEN) 5 MG tablet Take 1 tablet by mouth at bedtime as needed for sleep 0 7 Active Multiple Vitamins tablet Take 1 tab daily 0 8 Active topiramate (TOPAMAX) 100 MG tablet Take 1 tab 2 times daily 0 8 Active traZODone (DESYREL) 100 MG tablet Take 2 tablets by mouth at bedtime 0 7 Active baclofen (LIORESAL) 10 MG tablet 1 po qhs 0 8 Active cetirizine (ZyrTEC ALLERGY) 10 MG tablet 1 po qday 0 8 Active doxepin (SINEquan) 10 MG capsule Take 1 capsule at bedtime 0 8 Active calcium citrate-vitamin D (CALCIUM CITRATE + D) 315-200 MG-UNIT per tablet Take 2 tablets by mouth 2 times daily 0 7 Active pravastatin (PRAVACHOL) 20 MG tablet Take 1 tab at bedtime 0 8 Active ergocalciferol (VITAMIN D2) 1.25 MG (75176 UT) capsule Take 1 tab weekly 0 8 Active omega-3 (FISH OIL) 1000 MG capsule Take 1 tab daily 0 8 Active buPROPion XL (WELLBUTRIN XL) 150 MG 24 hr tablet Take 1 tab every morning 0 8 Active levETIRAcetam (KEPPRA) 500 MG tablet Take 1 tab 2 times daily for migraines as needed 0 8 Active raNITIdine (ZANTAC) 150 MG tablet Take 1 tab 2 times daily 0 8 Active Active Problems Problem Noted Date Diagnosed Date Chronic kidney disease, stage 3 (moderate) 11/23 Essential (primary) hypertension 02/22/2017 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 Social History Tobacco Use Types Packs/Day Years Used Date Smoking Tobacco: Former Comments Unknown Sex and Gender Information Value Date Recorded Sex Assigned at Not on file Legal Sex Female 3:44 PM MDT Gender Identity Not on file Sexual Orientation Not on file Last Filed Vital Signs Vital Sign Reading Time Taken Comments Blood Pressure 114/84 11/23/2017 12:01 AM SINGLE STAYER OPERATOR Si tting, Left Pulse 80 11/23/2017 12:01 AM SINGLE STAYER OPERATOR Brac hial Temperature 37 C (98.6 F) 11/23/2017 12:01 AM SINGLE STAYER OPERATOR Respiratory Rate - - Oxygen Saturation - - Inhaled Oxygen Concentration - - Weight 79.4 kg (175 lb) 11/23/2017 12:01 AM SINGLE STAYER OPERATOR Height 167.6 cm (5' 6) 11/23/2017 12:01 AM SINGLE STAYER OPERATOR Body Mass Index 28.25 11/23/2017 12:01 AM SINGLE STAYER OPERATOR Plan of Treatment Not on file Insurance PM [employer] Care Teams Perishable Freight Inspector Relationship Specialty Start Date End Date Kathy Glover MD [address] [place] [address] PCP - General 05/11/21
--- OUTSIDE RECORDS SUMMARY | 2025-04-02 11:08 | XMS_ITS | Encounter Summary ---
Author Organization [place] Address [address] [facility] [place] [address] Care Team Providers Care Snailer Name Role Phone Kathy Glover MD Primary Care Provider Toma Arguello NP Unavailable [phone] Laura Us MD Unavailable Kathy Glover MD Unavailable [phone] Luh Acharya-C Unavailable +[phone] Edward Marlow MD Unavailable [phone] [facility] Primary Care Provider Jas Bojorquez DO Unavailable [phone] Haven Buckner SUPPORT TEACHER Unavailable [phone] Jenise España MD Unavailable Unavailable Tierra Cancino-C Unavailable [phone] Luh Acharya PA-C Primary Care Provider + Luh Acharya-C Unavailable +[phone] Tierra Cancino-C Unavailable [phone] Haven Buckner CNP Unavailable +[phone] Luh Acharya PA-C Unavailable BucknerHavenflakito RIVERA Unavailable Encounter Details Date Type Department Care Team (Late st Contact Info) Description 04/14/2020 MyC Medical Advice [address] [phone] Kathy Glover MD [address] [place] [address] Social History Tobacco Use Types Packs/Day [...] AM CDT Legal Sex Female 3:41 AM SHALLOT CLEANER Gender Identity Female 01/18/2019 9:01 AM CDT [...] documented as of this encounter Care Teams Snailer Relationship Specialty Start Date End Date Kathy Glover MD [address] [place] [address] PCP - General Family Practice 06/03/15 10/05/20 Clinic - [address] 332112 PCP - General 10/06/20 11/20/21 Luh Acharya PA-C [address] [place] [address] PCP - General Family Medicine 11/21/21 01/02/23 Toma Arguello NP [address] [address] Nurse Practitioner Nurse Practitioner Psych/Mental Health 04/11/17 Laura Us MD [address] [address] Gastroenterology 12/20/18 Kathy Glover MD [address] [place] [address] Assigned PCP 01/18/20 06/19/20 Luh Acharya PA-C [address] [place] [address] Assigned PCP 06/20/20 03/31/21 Edward Marlow MD [address] [place] [address] Assigned Surgical Provider 07/09/20 07/31/20 Jas Bojorquez DO [address] [place] [address] Assigned PCP 04/01/21 05/21/21 Haven Buckner, NICOLE [address] [place] [address], [place] [address] Assigned PCP 05/22/21 11/26/21 Jenise España MD Assigned Heart and Vascular Provider 07/24/21 11/17/22 Tierra Cancino PA-C [address] [place] [address] Physician Textile Bag Sewer Urology 11/17/21 Luh Acharya PA-C [address] [place] [address]34 Assigned PCP 11/27/21 12/31/21 Tierra Cancino PA-C [address] [place] [address] Assigned Surgical Provider 12/11/21 06/08/23 Haven Buckner CNP [address] [place] [address], [place] [address] Assigned PCP 01/01/22 12/22/22 Luh Acharya PA-C [address] [place] [address], [place] [address] Assigned PCP 12/23/22 05/18/23 Haven Buckner, NICOLE [address] [place] [address] Assigned PCP 05/19/23 02/05/25 documented as of this encounter
--- OUTSIDE RECORDS SUMMARY | 2025-04-02 11:09 | XMS_ITS | Clinical Summary ---
Author Organization [facility] Address [address] [place] [address] Care Team Providers Care Technical Project Manager Name Role Phone Elsewhere, Pcp Primary Care Provider Unavailabl e Source Comments Patient records contain information from all sites at [facility]. For routine questions regarding patient records, call [phone] during business hours, M-F 8:00 AM - 5:00 PM Central Time. Record requests for emergency care only can be directed to [phone] at any time.[facility] Allergies Active Allergy Reactions Criticality Noted [...] together Sulfa (Sulfonamide Antibiotics) Itching 05/28/2015 Medications * This document contains information received from the source organization and may not represent a complete record from that organization. UNABLE TO FIND See Admin Instructions (The [...] hr tablet Take 450 mg by mouth. 09/23/19 21 Active rosuvastatin (CRESTOR) 20 mg tablet Take 20 mg by mouth. 09/23/19 21 Active DULoxetine (CYMBALTA) [address] capsule Take 60 mg by mouth. 09/23/19 21 Active omeprazole (PriLOSEC) [address] capsule Take 20 mg by mouth. 09/23/19 21 Active HYDROcodone-acetam inophen (NORCO) 5-325 mg per tablet take 1 tablet by oral route every 6 hours as needed for chronic pain 04/15/20 15 Active divalproex (DEPAKOTE ER) 250 mg 24 hr tablet TAKE 1 TABLET BY MOUTH AT NIGHT FOR 7 DAYS THEN TAKE 2 TABLETS BY MOUTH AT NIGHT 12/15/19 22 Active EPINEPHrine 0.3 mg/0.3 mL injection syringe Inject 0.3 mg intramuscularly. 02/25/20 21 Active estradioL (ESTRACE) 0.1 mg/g (0.01%) vaginal cream Apply small amount to the vaginal opening and urethra M, W, F @ bedtime 12/03/19 22 Active lisinopril-hydroCH LOROthiazide (PRINZIDE,ZESTORET IC) 20-25 mg per tablet Take 1 tablet by mouth daily. 12/14/19 22 Active metoprolol succinate (TOPROL-XL) 25 mg 24 hr tablet Take 1 tablet by mouth 2 (two) times a day. 11/16/19 22 Active nystatin (MYCOSTATIN) 100,000 unit/gram cream Apply topically as needed. 11/16/19 22 Active omega-3 acid ethyl esters (LOVAZA) 1 gram capsule Take 2 g by mouth. 11/30/19 22 Active rimegepant (NURTEC ODT) 75 mg disintegrating tablet Dissolve 1 tablet in the mouth. 12/07/19 22 Active traZODone (DESYREL) 50 mg tablet Take 1 tablet by mouth at bedtime. 11/16/19 22 Active desvenlafaxine (PRISTIQ) 100 mg 24 hr tablet Take 1 tablet by mouth daily. 06/11/20 23 Active tiZANidine (ZANAFLEX) 4 mg tablet Take 4 mg by mouth as needed. 03/30/20 23 Active pregabalin (LYRICA) 150 mg capsule Take 1 capsule (150 mg total) by mouth daily. 90 capsule 1 10/18/19 24 Active Active Problems Problem Noted Date Diagnosed Date Migraine Headache 08/01/2022 Immunizations Immunization Administration Dates Next Due Influenza, Unspecified 07/03/2014,07/13/2013, [...] pur e alcohol) 2 wine coolers daily Comments No Sex and Gender Information Value Date Recorded Sex Assigned at Not on file Legal Sex Female 6:34 PM NOC TECHNICIAN Gender Identity Not on file Sexual Orientation Not on file Last Filed Vital Signs Vital Sign Reading Time Taken Comments Blood Pressure 117/79 08/01/2022 2:07 PM NOC TECHNICIAN Pulse 101 08/01/2022 2:07 PM NOC TECHNICIAN Temperature 36.8 C (98.2 F) 07/10/2022 4:00 AM CDT Respiratory Rate 18 07/10/2022 4:00 AM CDT Oxygen Saturation 90% 07/10/2022 7:00 AM CDT Inhaled Oxygen Concentration - - Weight 96.1 kg (211 lb 13.8 oz) 08/01/2022 2:07 PM NOC TECHNICIAN Height 166.5 cm (5' 5.55) 08/01/2022 2:07 PM CS T Body Mass Index 34.67 08/01/2022 2:07 PM NOC TECHNICIAN Plan of Treatment Health Maintenance Due Date Last Done Comments CT Colonography 1969 Cologuard 1969 FIT 1969 HIV Screening 1969 Hepatitis C Screening 1969 Hepatitis B Vaccines (1 of 3 - 19+ 3-dose series) 1988 Pneumococcal vaccine (50+ years) (1 of 2 - PCV) 1988 Mammogram 10/13/2022 10/13/2021, 09/18, 09/27/2020, Additional history exists Creatinine Level (Kidney Function Test) 07/10/2023 07/10/2022, 11/17/2021, 06/06/2021, Additional history exists Potassium Level 07/10/2023 07/10/2022, 03/0 11/2021, 06/06/2021, Additional history exists Sodium Level 07/10/2023 07/10/2022, 03/0 11/2021, 06/06/2021, Additional history exists COVID-19 Vaccine ( season) 2024 11/15/2021, 01/30/2021, 01/09/2021 Depression Screening (Annual PHQ-2) 09/17/2024 Influenza Vaccine (#1) 2025 , 07/27/2022, 07/07/2021, Additional history exists Fasting Glucose for Diabetes Screening 07/10/2025 07/10/2022, 11/17/2021, 06/06/2021, Additional history exists Lipid (Cholesterol) Screening 11/17/2026 11/17/2021, 09/23/2020, 01/20/2020, Additional history exists Colonoscopy 09/29/2029 09/29/2019 Colorectal Cancer Screening 09/29/2029 DTaP,Tdap,and Td Vaccines (3 - Td or Tdap) 11/16/2031 11/15/2021, 08/15/2011 Zoster Vaccines Completed 08/04/2020, 05/30/2020 IPV Vaccines Aged Out No longer eligi ble based on patient's age to complete this [...] CDT 07/10/2022 4:23 AM CDT Jorge Browne D.O., M.S. LAB BLOOD ADD-ON Adalgisa l Result [facility] [address] [place] [address], [facility] NPRG [facility] [address] [place] [address] * BI Breast Screening Bilateral (01/21/2015 8:30 [...] further workup of any suspected palpable masses. us Alessia Hernandez(R)(CT), RLizet(R)(M) [facility] PROC EDURES Edited Result - Final * (ABNORMAL) Lipid Panel (12/17/2014 9:20 AM [...] 130 mg/dL Blood 12/17/2014 9:20 AM CDT us Fabiola Zapata M.D. LAB BLOOD ADD-ON Final Resu lt POWERCHART from Last 3 Months or Most Recently Relevant to Health Maintenance Insurance [address] [place] [id number] [facility] [place] [id number] Care Teams Technical Project Manager Relationship Specialty Start Date End Date Elsewhere, Pcp PCP - General Internal Medicine 07/10/22
--- OUTSIDE RECORDS SUMMARY | 2025-04-02 11:09 | XMS_ITS | Encounter Summary ---
Author Organization [place] Address [address] [place] [address] Care Team Providers Care Reservations Manager Name Role Phone Kathy Glover MD Primary Care Provider Toma Arguello NP Unavailable [phone] Kathy Glover MD Unavailable [phone] Kathy Glover MD Unavailable [phone] Laura Us MD Unavailable Luh Acharya PA-C Unavailable [phone] Kathy Glover MD Unavailable [phone] Luh Acharya PA-C Unavailable [phone] Edward Marlow MD Unavailable [facility] Primary Care Provider Jas Bojorquez DO Unavailable [phone] Haven Buckner CNP Unavailable Jenise España MD Unavailable Unavailable Tierra CancinoC Unavailable Luh Acharya PA-C Primary Care Provider + Luh AcharyaC Unavailable [phone] Shaniamando Tierra BAUTISTAC Unavailable Haven Buckner CNP Unavailable +[phone] Luh AcharyaC Unavailable +[phone] BucknerHaven lofton CNP Unavailable +1-2 Encounter Details Date Type Department Care Team [...] AM CDT Legal Sex Female 3:41 AM ORNAMENTAL PLASTER STICKER Gender Identity Female 01/18/2019 9:01 AM CDT [...] documented as of this encounter Care Teams Reservations Manager Relationship Specialty Start Date End Date Kathy Glover MD [address] [place] [address] [phone] PCP - General Family Practice 06/03/15 10/05/20 Kathy Glover MD [address] [place] [address] [phone] PCP - Assigned PCP 11/8/15 3/5/[address] [address] PCP - General 10/06/20 11/20/21 Luh Acharya PA-C [address] [place] [address] PCP - General Family Medicine 11/21/21 01/02/23 Toma Arguello NP [address] [address] Nurse Practitioner Nurse Practitioner Psych/Mental Health 04/11/17 Kathy Glover MD [address] [place] [address] Assigned PCP 07/25/15 12/20/19 Laura Us MD [address] [place] [address] Gastroenterology 12/20/18 Luh Acharya PA-C [address] [place] [address] 68326 Assigned PCP 12/21/19 01/17/20 Kathy Glover MD [address] [place] [address] 30752 Assigned PCP 01/18/20 06/19/20 Luh Acharya PA-C [address] [place] [address] 82273 Assigned PCP 06/20/20 03/31/21 Edward Marlow [place] [address] Assigned Surgical Provider 07/09/20 07/31/20 Jas Bojorquez DO [address] [place] [address] Assigned PCP 04/01/21 05/21/21 Haven Buckner, POLICE DISPATCHER [address] [place] [address] 50485 Assigned PCP 05/22/21 11/26/21 Jenise España MD Assigned Heart and Vascular Provider 07/24/21 11/17/22 Tierra Cancino PA-C [address] [place] [address] Physician Special Education Curriculum Specialist Urology 11/17/21 Luh Acharya PA-C [address] [place] [address] Assigned PCP 11/27/21 12/31/21 Tierra Cancino PA-C [address] [place] [address] Assigned Surgical Provider 12/11/21 06/08/23 Haven Buckner, NICOLE [address] [place] [address]27 Assigned PCP 01/01/22 12/22/22 Luh Acharya PA-C [address] [place] [address] Assigned PCP 12/23/22 05/18/23 Haven Buckner, NICOLE [address] [place] [address] 401152 Assigned PCP 05/19/23 02/05/25 documented as of this encounter
--- OUTSIDE RECORDS SUMMARY | 2025-04-02 11:09 | XMS_ITS | Encounter Summary ---
Author Organization [place] Address [address] [place] [address] Care Team Providers Care Manager Life Insurance Name Role Phone Kathy Glover MD Primary Care Provider Toma Arguello NP Unavailable [phone] Kathy Glover MD Unavailable [phone] Kathy Glover MD Unavailable [phone] Laura Us MD Unavailable Luh Acharya PA-C Unavailable [phone] Kathy Glover MD Unavailable [phone] Luh Acharya PA-C Unavailable [phone] Edward Marlow MD Unavailable [facility] Primary Care Provider Jas Bojorquez DO Unavailable [phone] Haven Buckner CNP Unavailable Jenise España MD Unavailable Unavailable Tierra CancinoC Unavailable [phone] Luh Acharya PA-C Primary Care Provider + Luh AcharyaC Unavailable [phone] Tierra Cacninovandana BAUTISTAC Unavailable BucknerHaven lofton CNP Unavailable [phone] Marck Luh DUMONT-C Unavailable [phone] SitaHaven CNP Unavailable +1-2 Reason for Visit * Reason Comments Medication Refill traZODone (DESYREL) 100 MG tablet Encounter Details Date Type Department Care Team (Late st Contact Info) Description 01/19/[address] [phone] [place] [address] [place] [address] Medication Refill (traZODone (DESYREL) 100 MG [...] AM CDT Legal Sex Female 3:41 AM CHIEF LOCK OPERATOR Gender Identity Female 01/18/2019 9:01 AM CDT Sexual Orientation Straight 01/18/2019 9: 01 AM CDT documented as of this encounter Miscellaneous Notes * Telephone Encounter - Manisha Patel RN - 01/20/2016 3:43 PM CDT Please see message below Please review and advise Thank you Manisha Patel RN, BSN [place] Triage * Telephone Encounter - Renay Barlow RN - 01/20/2016 11:32 AM CDT traZODone (DESYREL) 100 MG tablet Rx was D/C on 11/18/15 due to Dosage Adjustment - Pt wanted to go down to 50mg Last Written Prescription Date: 06/02/15 Last Fill Quantity: n/a; # refills: n/a Last Office Visit with [facility] or [facility] prescribing provider: 11/18/15 Next 5 appointments (look out 90 days) January 29, 2016 8:45 AM [facility] Visit with [facility] [address] [place] [phone] Last PHQ-9 score on record= PHQ-9 SCORE 11/18/2015 Total Score 5 AST 39 11/18/2015 ALT 78 11/18/2015 Renay Barlow Patient Molded Grid And Parts Inspector documented in this encounter Plan of Treatment [...] Total Score: 5 11/19/19 16 7:51 AM CHIEF LOCK OPERATOR documented as of this encounter Care Teams Manager Life Insurance Relationship Specialty Start Date End Date Kathy Glover MD [address] [place] [address] PCP - General Family Practice 06/03/15 10/05/20 Kathy Glover MD [address] [place] [address] PCP - Assigned PCP 07/25/15 11/19/[address] [address] PCP - General 10/06/20 11/20/21 Luh Acharya PA-C [address] [place] [address] PCP - General Family Medicine 11/21/21 01/02/23 Toma Arguello HEEL SEAT LASTER [address] [address] Nurse Practitioner Nurse Practitioner Psych/Mental Health 04/11/17 Kathy Glover MD [address] [place] [address] Assigned PCP 07/25/15 12/20/19 Laura Us MD [address] [place] [address] Gastroenterology 12/20/18 Luh Acharya PA-C [address] [place] [address] 97[address] Assigned PCP 12/21/19 01/17/20 Kathy Glover MD [address] [place] [address] Assigned PCP 01/18/20 06/19/20 Luh Acharya PA-C [address] [place] [address] 51421 Assigned PCP 06/20/20 03/31/21 Edward Marlow MD [facility] [place] [address] Assigned Surgical Provider 07/09/20 07/31/20 Jas Bojorquez DO [address] [place] [address] Assigned PCP 04/01/21 05/21/21 Haven Buckner, DATA TECHNICIAN [address] [place] [address] Assigned PCP 05/22/21 11/26/21 Jenise España MD Assigned Heart and Vascular Provider 07/24/21 11/17/22 Tierra Cancino PA-C [address] [place] [address] Physician Fire Protection Fabricator Urology 11/17/21 Luh Acharya PA-C [address] [place] [address] Assigned PCP 11/27/21 12/31/21 Tierra Cancino PA-C [address] [place] [address] Assigned Surgical Provider 12/11/21 06/08/23 Haven Buckner, DATA TECHNICIAN [address] [place] [address] Assigned PCP 01/01/22 12/22/22 Luh Acharya PA-C [address] [place] [address] [place] [address] Assigned PCP 12/23/22 05/18/23 Haven Buckner, DATA TECHNICIAN [address] [place] [address] Assigned PCP 05/19/23 02/05/25 documented as of this encounter
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
--- OUTSIDE RECORDS SUMMARY | 2025-04-02 11:09 | XMS_ITS | Encounter Summary ---
Author Organization [place] Address [address] [facility] [place] [address] Care Team Providers Care Wire Repairer Name Role Phone Kathy Glover MD Primary Care Provider Toma Agruello NP Unavailable [phone] Kathy Glover MD Unavailable [phone] Kathy Glover MD Unavailable [phone] Laura Us MD Unavailable Luh Acharya PA-C Unavailable [phone] Kathy Glover MD Unavailable [phone] Luh Acharya PA-C Unavailable [phone] Edward Marlow MD Unavailable [facility] Primary Care Provider Jas Bojorquez DO Unavailable [phone] Haven Buckner CNP Unavailable Jenise España MD Unavailable Unavailable Tierra CancinoC Unavailable Luh Acharya PA-C Primary Care Provider + Luh AcharyaC Unavailable [phone] Tierra Cancinovonnvandana BAUTISTAC Unavailable Haven Buckner CNP Unavailable +[phone] Marck Luh BAUTISTAC Unavailable [phone] BucknerHaven lofton CNP Unavailable +[phone] Reason for Visit * Reason Comments Medication Refill Encounter Details Date Type Department Care Team (Late st Contact Info) Description 03/14/2018 Refill [facility] [address] 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 Gender Identity Female 01/18/2019 9:01 AM CDT [...] documented as of this encounter Care Teams Wire Repairer Relationship Specialty Start Date End Date Kathy Glover MD [address] [place] [address] PCP - General Family Practice 06/03/15 10/05/20 Kathy Glover MD [address] [place] [address] PCP - Assigned PCP 07/25/15 11/19/[address] [address] PCP - General 10/06/20 11/20/21 Luh Acharya PA-C [address] [place] [address] PCP - General Family Medicine 11/21/21 01/02/23 Toma Arguello NP [address] [address] Nurse Practitioner Nurse Practitioner Psych/Mental Health 04/11/17 Kathy Glover MD [address] [place] [address] Assigned PCP 07/25/15 12/20/19 Laura Us MD [address] [place] [address], [place] [address] Gastroenterology 12/20/18 Luh Acharya PA-C [address] [place] [address] Assigned PCP 12/21/19 01/17/20 Kathy Glover MD [address] [place] [address], [place] 363802 Assigned PCP 01/18/20 06/19/20 Luh Acharya PA-C [address] [place] [address] [phone] Assigned PCP 06/20/20 03/31/21 Edward Marlow MD [address] [place] [address] Assigned Surgical Provider 07/09/20 07/31/20 Jas Bojorquez DO [address] [place] [address] [id number] Assigned PCP 04/01/21 05/21/21 Haven Buckner, STEAM BRUSH OPERATOR [address] [place] [address], [place] 799852 Assigned PCP 05/22/21 11/26/21 Jenise España MD Assigned Heart and Vascular Provider 07/24/21 11/17/22 Tierra Cancino PA-C [address] [place] [address] Physician Sock And Stocking Ironer Urology 11/17/21 Luh Acharya PA-C [address] [place] [address], [place] [address] Assigned PCP 11/27/21 12/31/21 Tierra Cancino PA-C [address] [place] [address] Assigned Surgical Provider 12/11/21 06/08/23 Haven Buckner, NICOLE [address] [place] [address] Assigned PCP 01/01/22 12/22/22 Luh Acharya PA-C [address] [place] [address], [place] [address] Assigned PCP 12/23/22 05/18/23 Haven Buckner, NICOLE [address] [place] [address] Assigned PCP 05/19/23 02/05/25 documented as of this encounter
--- OUTSIDE RECORDS SUMMARY | 2025-04-02 11:09 | XMS_ITS | Encounter Summary ---
Author Organization [place] Address [address] [place] [address] Care Team Providers Care Service And Repair Supervisor Name Role Phone Kathy Glover MD Primary Care Provider Toma Arguello NP Unavailable [phone] Kathy Glover MD Unavailable [phone] Laura Us MD Unavailable Luh AcharyaC Unavailable + [phone] Kathy Glover MD Unavailable [phone] Luh AcharyaC Unavailable + [phone] Edward Marlow MD Unavailable [phone] [facility] Primary Care Provider Jas Bojorquez DO Unavailable [phone] Haven Buckner TREE FRUIT AND NUT CROPS FARMER Unavailable [phone] Jenise España MD Unavailable Unavailable Tierra Cancino-C Unavailable Luh AcharyaC Primary Care Provider + Luh AcharyaC Unavailable + [phone] Tierra Cancino PA-C Unavailable [phone] Haven Buckner CNP Unavailable [phone] Luh Acharya PA-C Unavailable + [phone] Haven Buckner CNP Unavailable [phone] Reason for Visit * Reason Comments Medication Refill Encounter Details Date Type Department Care Team (Late st Contact Info) Description 12/10/[address] [phone] Luh Acharya PA-C [address] [place] [address] Medication Refill Social History Tobacco Use [...] AM CDT 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 Gender Identity Female 01/18/2019 9:01 AM [...] documented as of this encounter Care Teams Service And Repair Supervisor Relationship Specialty Start Date End Date Kathy Glover MD [address] [place] [address] PCP - General Family Practice 06/03/15 10/05/[address] [phone] PCP - General 10/06/20 11/20/21 Luh Acharya PA-C [address] [place] [address] 159852 PCP - General Family Medicine 11/21/21 01/02/23 Toma Arguello NP [address] [address] Nurse Practitioner Nurse Practitioner Psych/Mental Health 04/11/17 Kathy Glover MD [address] [place] [address] Assigned PCP 07/25/15 12/20/19 Laura Us MD [address] [place] [address] Gastroenterology 12/20/18 Luh Acharya PA-C [address] [place] [address] Assigned PCP 12/21/19 01/17/20 Kathy Glover MD [address] [place] [address] Assigned PCP 01/18/20 06/19/20 Luh Acharya PA-C [address] [place] [address] Assigned PCP 06/20/20 03/31/21 Edward Marlow [place] [address] Assigned Surgical Provider 07/09/20 07/31/20 Jas Bojorquez DO [address] [place] [address] Assigned PCP 04/01/21 05/21/21 Haven Buckner CNP [address] [place] [address] Assigned PCP 05/22/21 11/26/21 Jenise España MD Assigned Heart and Vascular Provider 07/24/21 11/17/22 Tierra Cancino PA-C [address] [place] [address] Physician Paint Factory Worker Urology 11/17/21 Luh Acharya PA-C [address] [place] [address] Assigned PCP 11/27/21 12/31/21 Tierra Cancino PA-C [address] [place] [address] Assigned Surgical Provider 12/11/21 06/08/23 Haven Buckner, NICOLE [address] [place] [address] Assigned PCP 01/01/22 12/22/22 Luh Acharya PA-C [address] [place] [address] Assigned PCP 12/23/22 05/18/23 Haven Buckner, NICOLE [address] [place] [address] Assigned PCP 05/19/23 02/05/25 documented as of this encounter
--- OUTSIDE RECORDS SUMMARY | 2025-04-02 11:09 | XMS_ITS | Clinical Summary ---
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 Comment:Cutoff for a negativ e Oxycodone is 100 ng/mL or less. Propoxyphene (Norpropoxyphene) Not Detected NDET^Not Detected ng/mL 07/11/2018 5:33 PM CDT [facility] Comment:Cutoff for a negativ e propoxyphene is 300 ng/ml or less Buprenorphine (Buprenorphine) Not Detected NDET^Not Detected ng/mL 07/11/2018 5:33 PM CDT [facility] Comment:Cutoff for a negativ e buprenorphine is 10 ng/ml or less Urine specimen (specimen) 07/11/2018 2:01 PM CDT 07/11/2018 2:02 PM CDT Heber Glover MD LAB - URINE ORDERABLES Final Result [facility] [address] [place] [address] * HIV Screening (07/11/2018 10:09 AM CDT) HIV Antigen Antibody Combo Nonreactive NR^Nonrea ctive 07/12/2018 9:42 AM CDT [facility] Comment:HIV-1 p24 Ag & HIV-1 /HIV-2 Ab Not Detected Blood specimen (specimen) 07/11/2018 10:09 AM CDT 07/11/2018 10:10 AM CDT us Heber Glover MD LAB - BLOOD ORDERABLES Final Result [address] [address], [facility] * CT Chest/Abdomen/Pelvis w Contrast (04/16/2016 3:09 [...] CONDON Arnaud Mari MD IMG CT ORDERABLES Final Re sult from Last 3 Months or Most Recently Relevant to Health Maintenance Advance Directives For more information, please contact: [phone] * Full Code (Latest Code Status on File) Date Activated Date Inactivated Comments 06/27/2017 4:33 PM 06/28/2017 4:51 PM * Full Code Date Activated Date Inactivated Comments 07/07/2016 2:47 PM 06/27/2017 4:33 PM * Full Code Date Activated Date Inactivated Comments 07/06/2016 5:24 PM 07/07/2016 2:47 PM Care Teams Field Operations Technician Relationship Specialty Start Date End Date Toma Arguello NP [facility] [address] [place] [address] Nurse Practitioner Nurse Practitioner Psych/Mental Health 04/11/17 Laura Us MD [facility] [address] [place] [address] Gastroenterology 12/20/18 Tierra Cancino PA-C [address] [place] [address] [place] [address] Physician Product Test Specialist Urology 3/3/22
--- OUTSIDE RECORDS SUMMARY | 2025-04-02 11:09 | XMS_ITS | Encounter Summary ---
Author Organization [place] Address [address] [facility] [place] [address] Care Team Providers Care Wave Soldering Machine Operator Name Role Phone Toma Arguello YESICA Unavailable [phone] Laura Us MD Unavailable Luh Acharya-C Unavailable +[phone] [facility] Primary Care Provider Jas Bojorquez DO Unavailable +[phone] Haven Buckner CNP Unavailable +[phone] Jenise España MD Unavailable Unavailable Tierra Cancino-C Unavailable [phone] Luh Acharya-C Primary Care Provider + Luh Acharya-C Unavailable + [phone] Tierra Cancino-C Unavailable [phone] Haven Buckner CNP Unavailable +[phone] Luh Acharya-C Unavailable +[phone] Haven Buckner CNP Unavailable +[phone] Reason for Visit * Reason Comments Medication Refill Encounter Details Date Type Department Care Team ([facility] st Contact Info) Description 02/01/2021 Refill [facility] [address] [place] [address] [phone] Haven Buckner, UM RN [address] [place] [address] Medication Refill Social History Tobacco Use Types [...] AM CDT 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 Order [id number] for confirmation or individual confirmation tests to [facility]. Amphetamine (d-Amphetamine) Date Value Ref Range Status [...] be used for medical purposes only. Order [id number] for confirmation or individual confirmation tests to [...] be electronically transmitted to pharmacy by provider [email or web address] Routing refill request to provider for review/approval because: Drug not on the [facility] refill protocol Renay Barlow RN [facility] documented in this encounter Plan of [...] Total Score: 1 07/27/20 20 2:05 PM PRODUCT MARKETER documented as of this encounter Care Teams Wave Soldering Machine Operator Relationship Specialty Start Date End Date Clinic - [address] [address] PCP - General 10/06/20 11/20/21 Luh Acharya PA-C [address] [place] [address] PCP - General Family Medicine 11/21/21 01/02/23 Toma Arguello MARKETING STRATEGIST [place] [address] [place] [address] Nurse Practitioner Nurse Practitioner Psych/Mental Health 04/11/17 Laura Us MD [place] [address] [place] [address] Gastroenterology 12/20/18 Luh Acharya PA-C [address] [place] [address] 070822 Assigned PCP 06/20/20 03/31/21 Jas Bojorquez DO [address] [place] [address] 436372 Assigned PCP 04/01/21 05/21/21 Haven Buckner, UM RN [address] [place] [address] [phone] Assigned PCP 05/22/21 11/26/21 Jenise España MD Assigned Heart and Vascular Provider 07/24/21 11/17/22 Tierra Cancino PA-C [address] [address] Physician Hangar Attendant Urology 11/17/21 Luh Acharya PA-C [address] [place] [address] Assigned PCP 11/27/21 12/31/21 Tierra Cancino PA-C [address] [place] [address] Assigned Surgical Provider 12/11/21 06/08/23 Haven Buckner, NICOLE [address] [place] [address], [place] [address] Assigned PCP 01/01/22 12/22/22 Luh Acharya PA-C [address] [place] [address] Assigned PCP 12/23/22 05/18/23 Haven Buckner, NICOLE [address] [place] [address] Assigned PCP 05/19/23 02/05/25 documented as of this encounter
--- OUTSIDE RECORDS SUMMARY | 2025-04-02 11:09 | XMS_ITS | Encounter Summary ---
Author Organization [place] Address [address] [facility] [place] [address] Care Team Providers Care Hammersmith Helper Name Role Phone Kathy Glover MD Primary Care Provider Toma Arguello NP Unavailable [phone] Kathy Glover MD Unavailable [phone] Kathy Glover MD Unavailable [phone] Laura Us MD Unavailable Luh Acharya PA-C Unavailable [phone] Kathy Glover MD Unavailable [phone] Luh Acharya PA-C Unavailable +[phone] Edward Marlow MD Unavailable [facility] Primary Care Provider Jas Bojorquez DO Unavailable [phone] Haven Buckner CNP Unavailable Jenise España MD Unavailable Unavailable Tierra CancinoC Unavailable [phone] Luh Acharya PA-C Primary Care Provider + Luh AcharyaC Unavailable +[phone] ShaniTierra goeljose guadalupe BAUTISTAC Unavailable Haven Buckner ENTRY CLERK Unavailable +[phone] Luh AcharyaC Unavailable +1- BucknerHaven lofton ENTRY CLERK Unavailable +1--2 Encounter Details Date Type Department [...] AM CDT Legal Sex Female 3:41 AM 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 Gender Identity Female 01/18/2019 9:01 AM CDT [...] documented as of this encounter Care Teams Hammersmith Helper Relationship Specialty Start Date End Date Kathy Glover MD [address] [place] [address] [phone] PCP - General Family Practice 06/03/15 10/05/20 Kathy Glover MD [address] [place] [address] [phone] PCP - Assigned PCP 07/25/15 11/19/[address] [phone] PCP - General 10/06/20 11/20/21 Luh Acharya PA-C [address] [place] [address] PCP - General Family Medicine 11/21/21 01/02/23 Toma Arguello NP [address] [address] Nurse Practitioner Nurse Practitioner Psych/Mental Health 04/11/17 Kathy Glover MD [address] [place] [address] Assigned PCP 07/25/15 12/20/19 Laura Us MD [address] [place] [address] Gastroenterology 12/20/18 Luh Acharya PA-C [address] [place] [address] Assigned PCP 12/21/19 01/17/20 Kathy Glover MD [address] [place] [address] Assigned PCP 01/18/20 06/19/20 Luh Acharya PA-C [address] [place] [address] Assigned PCP 06/20/20 03/31/21 Edward Marlow MD [place] [address] Assigned Surgical Provider 07/09/20 07/31/20 Jas Bojorquez DO [address] [place] [address] Assigned PCP 04/01/21 05/21/21 Haven Buckner, ENTRY CLERK [address] [place] [address] Assigned PCP 05/22/21 11/26/21 Jenise España MD Assigned Heart and Vascular Provider 07/24/21 11/17/22 Tierra Cancino PA-C [address] [place] [address] Physician Printing Technician Urology 11/17/21 Luh Acharya PA-C [address] [place] [address] Assigned PCP 11/27/21 12/31/21 Tierra Cancino PA-C [address] [place] [address] Assigned Surgical Provider 12/11/21 06/08/23 Haven Buckner, NICOLE [address] [place] [address] Assigned PCP 01/01/22 12/22/22 Luh Acharya PA-C [address] [place] [address] Assigned PCP 12/23/22 05/18/23 Haven Buckner, ENTRY CLERK [address] [place] [address] Assigned PCP 05/19/23 02/05/25 documented as of this encounter
--- OUTSIDE RECORDS SUMMARY | 2025-04-02 11:09 | XMS_ITS | Encounter Summary ---
Author Organization [place] Address [address] [facility] [place] [address] Care Team Providers Care Machine Stitcher Name Role Phone Kathy Glover MD Primary Care Provider Toma Arguello NP Unavailable [phone] Kathy Glover MD Unavailable [phone] Kathy Glover MD Unavailable [phone] Laura Us MD Unavailable Luh Acharya PA-C Unavailable [phone] Kathy Glover MD Unavailable [phone] Luh Acharya PA-C Unavailable +[phone] Edward Marlow MD Unavailable [facility] Primary Care Provider Jas Bojorquez DO Unavailable [phone] Haven Buckner CNP Unavailable Jenise España MD Unavailable Unavailable Tierra CancinoC Unavailable Luh Acharya PA-C Primary Care Provider + Luh AcharyaC Unavailable [phone] Barak Tierra BAUTISTAC Unavailable Haven Buckner CNP Unavailable [phone] Luh AcharyaC Unavailable [phone] BucknerHaven lofton CNP Unavailable [phone] Reason for Visit * Reason Onset Date Comments Refill Request 05/09/2016 flexeril Encounter Details Date Type Department Care Team (Late st Contact Info) Description 05/09/[address] [address] [place] [address] [place] [address] Refill Request (flexeril) Social History Tobacco [...] AM CDT Legal Sex Female 3:41 AM LINUX UNIX SYSTEM ADMINISTRATOR Gender Identity Female 01/18/2019 9:01 AM CDT Sexual Orientation Straight 01/18/2019 9: 01 AM CDT documented as of this encounter Miscellaneous Notes * Telephone Encounter - Marcy Smith RN - 05/09/2016 2:10 PM CDT Routing refill request to provider for review/approval because: Drug not on the [facility] refill protocol not on med list for RN protocol. Dona Smith RN * Telephone Encounter - Krunal Whitehead - 05/09/2016 9:18 AM CDT cyclobenzaprine (FLEXERIL) 5 MG tablet Last Written Prescription Date: 01.01.16 Last Fill Quantity: 42, # refills: 0 Last Office Visit with G, P or [facility] prescribing provider: 04.27.16 documented in this encounter [...] Total Score: 5 11/19/19 16 7:51 AM LINUX UNIX SYSTEM ADMINISTRATOR documented as of this encounter Care Teams Machine Stitcher Relationship Specialty Start Date End Date Kathy Glover MD [address] [place] [address] PCP - General Family Practice 06/03/15 10/05/20 Kathy Glover MD [address] [place] [address] PCP - Assigned PCP 07/25/15 11/19/[address] [address] PCP - General 10/06/20 11/20/21 Luh Acharya PA-C [address] [place] [address] PCP - General Family Medicine 11/21/21 01/02/23 Toma Arguello NP [facility] [address] [place] [address] Nurse Practitioner Nurse Practitioner Psych/Mental Health 04/11/17 Kathy Glover MD [address] [place] [address] Assigned PCP 07/25/15 12/20/19 Laura Us MD [address] [place] [address] Gastroenterology 12/20/18 Luh Acharya PA-C [address] [place] [address] Assigned PCP 12/21/19 01/17/20 Kathy Glover MD [address] [place] [address] Assigned PCP 01/18/20 06/19/20 Luh Acharya PA-C [address] [place] [address] Assigned PCP 06/20/20 03/31/21 Edward Marlow MD [address] [place] [address] Assigned Surgical Provider 07/09/20 07/31/20 Jas Bojorquez DO [address] [place] [address] Assigned PCP 04/01/21 05/21/21 Haven Buckner, APPLICATION DEVELOPMENT PROJECT MANAGER [address] [place] [address], [place] [address] Assigned PCP 05/22/21 11/26/21 Jenise España MD Assigned Heart and Vascular Provider 07/24/21 11/17/22 Tierra Cancino PA-C [address] [place] [address] Physician Gray Mixing Operator Urology 11/17/21 Luh Acharya PA-C [address] [place] [address], [place] [address] Assigned PCP 11/27/21 12/31/21 Tierra Cancino PA-C [address] [place] [address] Assigned Surgical Provider 12/11/21 06/08/23 Haven Buckner, APPLICATION DEVELOPMENT PROJECT MANAGER [address] [place] [address], [place] [address] Assigned PCP 01/01/22 12/22/22 Luh Acharya PA-C [address] [place] [address], [place] [address] Assigned PCP 12/23/22 05/18/23 Haven Buckner, APPLICATION DEVELOPMENT PROJECT MANAGER [address] [place] [address], [place] [address] Assigned PCP 05/19/23 02/05/25 documented as of this encounter
--- OUTSIDE RECORDS SUMMARY | 2025-04-02 11:09 | XMS_ITS | Encounter Summary ---
Author Organization [place] Address [address] [facility] [place] [address] Care Team Providers Care Pants Cutter Name Role Phone Kathy Glover MD Primary Care Provider Toma Arguello NP Unavailable [phone] Kathy Glover MD Unavailable [phone] Kathy Glover MD Unavailable [phone] Laura Us MD Unavailable Luh Acharya PA-C Unavailable [phone] Kathy Glover MD Unavailable [phone] Luh Acharya PA-C Unavailable +[phone] Edward Marlow MD Unavailable [phone] [facility] Primary Care Provider Jas Bojorquez DO Unavailable [phone] Haven Buckner CNP Unavailable Jenise España MD Unavailable Unavailable Tierra CancinoC Unavailable [phone] Luh Acharya PA-C Primary Care Provider + Luh Acharya-C Unavailable [phone] Tierra Cancinojose guadalupe DUMONT-C Unavailable Haven Buckner VOCATIONAL EDUCATION TEACHER Unavailable +[phone] Luh Acharya-C Unavailable [phone] BucknerHaven lofton CNP Unavailable [phone] Reason for Visit * Reason Onset Date Comments Refill Request 04/18/2018 topiramate (TOPA MAX) 50 MG tablet Encounter Details Date Type Department Care Team (Late st Contact Info) Description 04/18/[address] [facility] [address] [place] [address] Kathy Glover MD [address] [place] [address] Refill Request (topiramate (TOPAMAX) 50 [...] AM CDT Legal Sex Female 3:41 AM IT APPLICATION ADMINISTRATOR Gender Identity Female 01/18/2019 9:01 AM [...] from weight check today. Dona Smith RN [facility] Triage * Telephone Encounter - Giovanna Casey - 04/24/2018 3:24 PM CDT Left non-detailed message for patient to call back. Please schedule follow up when patient calls back. (see previous notes for details) Giovanna Casey Sergeant Of Officers * Telephone Encounter - Tiffanie Darby RN [...] this from neurology? TAYLA Simmons, RN, PHN [facility]) [phone] * Telephone Encounter - Nery Chua - [...] HCT 38.9 PLT 342 For GICH ONLY: [id number] = WBC, PGXN189 = RBC Passed - Normal ALT or [...] status migrainosus- now seeing Dr. Damian - [facility] - used to see Dr. Eliseo Dubon [facility] clinic of Neurology Migraine without aura, [...] documented as of this encounter Care Teams Pants Cutter Relationship Specialty Start Date End Date Kathy Glover MD [address] [place] [address] PCP - General Family Practice 06/03/15 10/05/20 Kathy Glover MD [address] [place] [address] PCP - Assigned PCP 07/25/15 11/19/[address] [address] PCP - General 10/06/20 11/20/21 Luh Acharya PA-C [address] [place] [address] PCP - General Family Medicine 11/21/21 01/02/23 Toma Arguello NP [facility] [address] [place] [address] Nurse Practitioner Nurse Practitioner Psych/Mental Health 04/11/17 Kathy Glover MD [address] [place] [address] Assigned PCP 07/25/15 12/20/19 Laura Us MD [address] [place] [address] 340512 Gastroenterology 12/20/18 Luh Acharya PA-C [address] [place] [address] Assigned PCP 12/21/19 01/17/20 Kathy Glover MD [address] [place] [address] Assigned PCP 01/18/20 06/19/20 Luh Acharya PA-C [address] [place] [address] Assigned PCP 06/20/20 03/31/21 Edward Marlow MD [address] [place] [address] Assigned Surgical Provider 07/09/20 07/31/20 Jas Bojorquez DO [address] [place] [address] Assigned PCP 04/01/21 05/21/21 Haven Buckner, VOCATIONAL EDUCATION TEACHER [address] [place] [address], [place] [address] Assigned PCP 05/22/21 11/26/21 Jenise España MD Assigned Heart and Vascular Provider 07/24/21 11/17/22 Tierra Cancino PA-C [address] [place] [address] Physician Account Executive Metalworking Urology 11/17/21 Luh Acharya PA-C [address] [place] [address], [place] [address] Assigned PCP 11/27/21 12/31/21 Tierra Cancino PA-C [address] [place] [address] Assigned Surgical Provider 12/11/21 06/08/23 Haven Buckner, NICOLE [address] [place] [address], [place] [address] Assigned PCP 01/01/22 12/22/22 Luh Acharya PA-C [address] [place] [address], [place] [address] Assigned PCP 12/23/22 05/18/23 Haven Buckner, VOCATIONAL EDUCATION TEACHER [address] [place] [address], [place] [address] Assigned PCP 05/19/23 02/05/25 documented as of this encounter
--- OUTSIDE RECORDS SUMMARY | 2025-04-02 11:09 | XMS_ITS | Encounter Summary ---
Author Organization [place] Address [address] [facility] [place] [address] Care Team Providers Care Manager Spa Name Role Phone Kathy Glover MD Primary Care Provider Toma Arguello NP Unavailable [phone] Kathy Glover MD Unavailable [phone] Kathy Glover MD Unavailable [phone] Laura Us MD Unavailable Luh Acharya PA-C Unavailable [phone] Kathy Glover MD Unavailable [phone] Luh Acharya PA-C Unavailable +[phone] Edward Marlow MD Unavailable [facility] Primary Care Provider Jas Bojorquez DO Unavailable [phone] Haven Buckner CNP Unavailable Jenise España MD Unavailable Unavailable Tierra CancinoC Unavailable [phone] Luh Acharya PA-C Primary Care Provider + Luh Acharya-C Unavailable [phone] Tierra Cancinovonnvandana BAUTISTAC Unavailable Haven Buckner CNP Unavailable [phone] Karri Acharyakirsty DUMONT-C Unavailable +[phone] SitaHaven CNP Unavailable +1-2 Reason for Visit * Reason Comments Medication Refill Encounter Details Date Type Department Care Team (Late st Contact Info) Description 05/09/[address] [address] Kathy Glover MD [address] [place] [address] Medication Refill Social History Tobacco Use Types Packs/Day Years Used Date Smoking Tobacco: Former Cigarettes 1 20 Smokeless Tobacco: Never Alcohol Use Standard Drinks/Week Comments Yes 0 (1 standard drink = 0.6 oz pur e alcohol) 1 glass wine daily Comments No Sex and Gender Information Value Date Recorded Sex Assigned at Female 01/18/2019 9:01 AM CDT Legal Sex Female 3:41 AM POT FILLER Gender Identity Female 01/18/2019 9:01 AM CDT [...] Total Score: 5 11/19/19 16 7:51 AM POT FILLER documented as of this encounter Care Teams Manager Spa Relationship Specialty Start Date End Date Kathy Glover MD [address] [place] [address] PCP - General Family Practice 06/03/15 10/05/20 Kathy Glover MD [address] [place] [address] PCP - Assigned PCP 07/25/15 11/19/[address] [address] PCP - General 10/06/20 11/20/21 Luh Acharya PA-C [address] [place] [address] PCP - General Family Medicine 11/21/21 01/02/23 Toma Arguello NP [address] [address] Nurse Practitioner Nurse Practitioner Psych/Mental Health 04/11/17 Kathy Glover MD [address] [place] [address] Assigned PCP 07/25/15 12/20/19 Laura Us MD [address] [place] [address] Gastroenterology 12/20/18 Luh Acharya PA-C [address] [place] [address] Assigned PCP 12/21/19 01/17/20 Kathy Glover MD [address] [place] [address], [place] [address] Assigned PCP 01/18/20 06/19/20 Luh Acharya PA-C [address] [place] [address], [place] [address] Assigned PCP 06/20/20 03/31/21 Edward Mar[place] [address] Assigned Surgical Provider 07/09/20 07/31/20 Jas Bojorquez DO [address] [place] [address] Assigned PCP 04/01/21 05/21/21 Haven Buckner, NICOLE [address] [place] [address], [place] 839072 Assigned PCP 05/22/21 11/26/21 Jenise España MD Assigned Heart and Vascular Provider 07/24/21 11/17/22 Tierra Cancino PA-C [address] [place] [address] Physician Tax Collector Urology 11/17/21 Luh Acharya PA-C [address] [place] [address], [place] [address] Assigned PCP 11/27/21 12/31/21 Tierra Cancino PA-C [address] [place] [address] Assigned Surgical Provider 12/11/21 06/08/23 Haven Buckner, NICOLE [address] [place] [address] Assigned PCP 01/01/22 12/22/22 Luh Acharya PA-C [address] [place] [address] Assigned PCP 12/23/22 05/18/23 Haven Buckner, NICOLE [address] [place] [address] Assigned PCP 05/19/23 02/05/25 documented as of this encounter
[2025-04-02 11:10] VITALS: BP 108/74; PULSE 76; RESP 18; TEMP 36.3; O2SAT 95; BMI 30.3
--- NOTE | 2025-04-02 11:38 | CRLHL7_ITS ---
For Patients: As a result of the Century Cures Act, medical imaging exams and procedure reports are released immediately into your electronic medical record. You may view this report before your referring provider. If you have questions, please contact your health care provider. Indication: RIGHT FLANK PAIN, UTI Technique: CT abdomen/pelvis with IV contrast utilizing 92 mL Isovue 370 Comparison: None Findings: Lower thorax: Trace dependent and bibasilar atelectasis. 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 No suspicious hepatic lesions. The gallbladder and biliary system are unremarkable. The spleen, pancreas, and adrenal glands are unremarkable. The kidneys and ureters are unremarkable. Trace intraluminal fluid in the bladder, likely secondary to prior catheterization, correlate with history. Minimal circumferential bladder wall thickening, likely secondary to underdistention. Status post hysterectomy. No suspicious adnexal lesions. There is no bowel obstruction or inflammation. The appendix is not visualized. Colonic diverticulosis without CT evidence of acute diverticulitis. No free air, free fluid, or abscess. No abdominopelvic lymphadenopathy. Vasculature is unremarkable. Soft tissue/musculoskeletal: Fat containing umbilical hernia diastasis recti. No acute fracture or malalignment. L5-S1 fusion hardware. No suspicious osseous lesions. Impression: 1. Minimal circumferential bladder wall thickening, likely secondary to underdistention, but can be seen with cystitis. 2. No renal calculi or hydroureteronephrosis. 3. No bowel obstruction or inflammation. Please note that all CT scans at this facility use dose modulation, iterative reconstruction, and/or weight-based dosing when appropriate to reduce radiation dose to as low as reasonably achievable. Dictated by Juan Pablo Lakhani MD @ 04/02/2025 1:02:02 PM (Electronically Signed)
--- NOTE | 2025-04-02 11:47 | ED.GENADULT ---
HPI - General Adult General Date Seen: 04/02/25 Chief complaint: Back Injury/Pain Stated complaint: kidney infection and pain is getting worst Time Seen by Provider: 04/02/25 11:33 Source: patient Mode of arrival: ambulatory Limitations: no limitations History of Present Illness HPI narrative: Patient is a 54-year-old female presenting to emergency department for bilateral flank pain. She states about weeks ago she started having right flank pain that is now radiated to the left flank. She was also having polyuria and dysuria. She decided to go to urgent care 3 days ago and was diagnosed with a UTI start Cipro. She states yesterday the cultures and urinalysis came back and they added on Bactrim according to the patient. She states the dysuria and polyuria have improved but she still having quite a bit of flank pain now bilaterally but worse on the right side. She feels like her muscles are getting tight. She has been working 10 hour shifts with this and states is been excruciating. Takes CBD at night to go to bed. Has not had any fevers. Denies abdominal pain. Had a headache yesterday but she states that is normal for her. Denies any vision changes. Denies chest pain, diarrhea, or constipation. No other concerns noted at this time. Related Data Home Medications ?Medication ?Instructions ?Recorded ?Confirmed vitamin B complex (B 1 tab PO QDAY 10/17/22 03/30/25 Complex-Vitamin B12 tablet) ubrogepant 100 mg tablet (Ubrelvy) 100 mg PO ONCE PRN 11/22/23 03/30/25 amitriptyline 25 mg tablet 25 mg PO QDAY 01/21/24 03/30/25 topiramate 50 mg tablet 50 mg PO DAILY 03/26/24 03/30/25 buspirone 15 mg tablet 15 mg PO BID 09/11/24 03/30/25 duloxetine 20 mg capsule,delayed 20 mg PO QDAY 09/11/24 03/30/25 release pregabalin 225 mg capsule 225 mg PO DAILY 10/13/24 04/02/25 buspirone 30 mg tablet mg PO 03/30/25 03/30/25 topiramate 200 mg tablet mg PO 03/30/25 03/30/25 metoprolol succinate 25 mg 25 mg PO DAILY 04/02/25 04/02/25 tablet,extended release 24 hr omeprazole 20 mg capsule,delayed 20 mg PO DAILY 04/02/25 04/02/25 release rosuvastatin 20 mg tablet 20 mg PO DAILY 04/02/25 04/02/25 Previous Rx's ?Medication ?Instructions ?Recorded epinephrine 0.3 mg/0.3 mL 0.3 mg (0.3 mL) IM ONCE PRN 05/24/23 injection, auto-injector hypersensitivity reaction #2 ea lisinopril 10 1 tab PO QDAY #90 tabs 11/27/24 mg-hydrochlorothiazide 12.5 mg tablet omega-3 acid ethyl esters 1 gram 1 cap PO QDAY #90 caps 11/27/24 capsule ciprofloxacin HCl 500 mg tablet 500 mg PO BID 7 days #14 tabs 03/30/25 Allergies Allergy/AdvReac Type Severity Reaction Status Date / Time metronidazole (From Flagyl) Allergy Intermediate Verified 04/02/25 11:40 cetirizine (From Zyrtec-D) Allergy Verified 03/30/25 17:47 pseudoephedrine (From Allergy Verified 03/30/25 17:47 Zyrtec-D) Review of Systems Status of ROS: Reports: 10 or more systems reviewed and unremarkable except as noted in History and below [facility] Medical History Chronic migraine Cigarette smoker ?F17.210 - Nicotine dependence, cigarettes, uncomplicated (ICD-10) COVID-19 ?U07.1 - COVID-19 (ICD-10) Urinary tract infection ?N39.0 - Urinary tract infection, site not specified (ICD-10) Intertriginous candidiasis ?B37.2 - Candidiasis of skin and nail (ICD-10) History of diverticulitis of colon (2014) ?Z87.19 - Personal history of other diseases of the digestive system (ICD-10) Frequent UTI ?N39.0 - Urinary tract infection, site not specified (ICD-10) Persistent insomnia ?G47.00 - Insomnia, unspecified (ICD-10) CKD (chronic kidney disease) ?N18.9 - Chronic kidney disease, unspecified (ICD-10) History of basal cell carcinoma (BCC) (2013) ?Z85.828 - Personal history of other malignant neoplasm of skin (ICD-10) Post concussive syndrome (04/16/16) ?F07.81 - Postconcussional syndrome (ICD-10) Major depressive disorder, recurrent episode, moderate (1985) ?F33.1 - Major depressive disorder, recurrent, moderate (ICD-10) History of non anemic vitamin B12 deficiency ?Z86.39 - Personal history of other endocrine, nutritional and metabolic disease (ICD-10) Hyperlipidemia ?E78.5 - Hyperlipidemia, unspecified (ICD-10) History of adenomatous polyp of colon ?Z86.010 - Personal history of colonic polyps (ICD-10) GERD (gastroesophageal reflux disease) ?K21.9 - Gastro-esophageal reflux disease without esophagitis (ICD-10) Fibromyalgia ?M79.7 - Fibromyalgia (ICD-10) Essential hypertension ?I10 - Essential (primary) hypertension (ICD-10) Chronic pain syndrome ?G89.4 - Chronic pain syndrome (ICD-10) Surgical History History of cystoscopy (06/2024) ?Z98.890 - Other specified postprocedural states (ICD-10) History of appendectomy (1984) ?Z90.49 - Acquired absence of other specified parts of digestive tract (ICD-10) History of tonsillectomy (1974) ?Z90.89 - Acquired absence of other organs (ICD-10) History of open reduction and internal fixation (ORIF) procedure (2006) ?Z98.890 - Other specified postprocedural states (ICD-10) Hx of LASIK (1993) ?Z98.890 - Other specified postprocedural states (ICD-10) History of total abdominal hysterectomy (1999) ?Z90.710 - Acquired absence of both cervix and uterus (ICD-10) Swallowing study performed (11/24/21) ?Z13.810 - Encounter for screening for upper gastrointestinal disorder (ICD-10) History of lumbar fusion (07/06/16) ?Z98.1 - Arthrodesis status (ICD-10) Family History Unknown History of non anemic vitamin B12 deficiency Father Diabetes Coronary artery disease High blood pressure Anxiety and depression Neuroendocrine cancer Brother Diabetes Asthma High blood pressure Paternal Grandmother Diabetes Hyperlipidemia Mother History of anesthesia reaction Basal cell carcinoma Chronic fatigue syndrome Maternal Grandmother Osteoporosis Uncle Family history of prostate cancer Lymphoma Parkinsonism, Onset Age: 60 Aunt Breast cancer, Onset Age: 47 Ovarian cancer, Onset Age: 47 Family/Other Breast cancer, Onset Age: 62 Social History Narrative: Lives with significant other for of 9 years, 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 [employer], 2 adult children, 6000 steps daily work, Maritza Thomas quit smoking 09/2024 before then quit at age 29 with 25 pack years, drinks 7 drinks a week, uses marijuana daily What is your current living situation?: I presently have a place to live Problems where you live: no known problems In the past 12 months, utilities in danger of being shut off: no In past 12 months, lack of transportation kept you from medical appts, meetings, work, or getting things needed for daily living: no In the past 12 mos, have been you worried that your food would run out before you had money to buy more?: never true In the past 12 mos, the food you bought just didn't last and you didn't have money to buy more?: never true Smoking Status: Current every day smoker How often do you have a drink containing alcohol: 2-3 times a week How many standard drinks containing alcohol do you have on a typical day: 1 or 2 How often do you have six or more drinks on one occasion: Never AUDIT-C Alcohol total score: 3 Non-prescribed substance use: denies use How often does anyone, including family, friends and others, physically hurt you: never How often does anyone, including family, friends and others, insult or talk down to you: never How often does anyone, including family, friends and others, threaten you with harm: never How often does anyone, including family, friends and others, scream or curse at you: never Exam Narrative: Exam Narrative: Const: Well-nourished, Well-developed, in mild distress Eyes: PERRL, no conjunctival injection, and symmetrical lids HENT: Atraumatic external nose and ears. Moist mucous membranes. Neck: Symmetric, trachea midline, No thyromegaly. CVS: RRR, No murmurs or gallops. Peripheral pulses 2+ and equal in all extremities RESP: Unlabored respiratory effort. Clear to auscultation bilaterally. GI: Nontender/Nondistended, No rebound or guarding. Right CVA tenderness MSK:Extremities w/o deformity, Normal Active ROM Skin: Warm, Dry. No rashes or lesions. Neuro: Normal Muscle tone, No focal neurological deficits. Psych: Awake, Alert, & Oriented x3. Appropriate mood and affect. Const: Vital Signs, click to edit/add: Vital Signs - 24 hr 04/02/25 11:10 Temperature 97.4 F L Pulse Rate [Pulse Oximeter] 76 Respiratory Rate 18 Blood Pressure [Ri ght Upper Arm] 108/74 Pulse Oximetry 95 Oxygen Delivery Me thod Room Air Course Vital Signs Vital signs: Initial Vital Signs Temperature 97.4 F L 04/02/25 11:10 Temperature Source Temporal Artery Scan 04/02/25 11:10 Pulse Rate 76 04/02/25 11:10 Respiratory Rate 18 04/02/25 11:10 Blood Pressure 108/74 04/02/25 11:10 Blood Pressure Mean 85 04/02/25 11:10 Pulse Oximetry 95 04/02/25 11:10 Oxygen Delivery Method Room Air 04/02/25 11:10 Vital Signs Temperature 97.4 F L 04/02/25 11:10 Pulse Rate 76 04/02/25 11:10 Respiratory Rate 18 04/02/25 11:10 Blood Pressure 108/74 04/02/25 11:10 Pulse Oximetry 95 04/02/25 11:10 Oxygen Delivery Method Room Air 04/02/25 11:10 Temperature 97.4 F L 04/02/25 11:10 Pulse Rate 76 04/02/25 11:10 Respiratory Rate 18 04/02/25 11:10 Blood Pressure 108/74 04/02/25 11:10 Pulse Oximetry 95 04/02/25 11:10 Oxygen Delivery Method Room Air 04/02/25 11:10 Medications Administered Medications: Discontinued Medications Generic Name Dose Route Start Last Admin Trade Name Freq PRN Reason Stop Dose Admin Ketorolac Tromethamine 15 mg 04/02/25 11:37 04/02/25 12:08 Ketorolac 15 Mg/Ml Inj IVP 04/02/25 11:38 15 mg ONCE ONE Administration Medical Decision Making MDM Narrative Medical decision making narrative: Patient is a 54-year-old female presenting to emergency department for flank pain. The differential diagnosis of flank pain including vascular causes such as aortic aneurysm, renal vascular issues, aortic dissection, mesenteric ischemia, nephrolithiasis, ureter stricture, pyelonephritis, along with several other GI and gynecological/ causes. Considering her history of seems most likely pyelonephritis. Seems a all the pain is in the right flank with referred pain to the left flank. She was only tender in the right flank on my exam. Will give her some Toradol for pain along with a CBC, CMP, urinalysis. Lab work returned showing no concerning abnormalities. UTI seems to have resolved. Rest of her labs showed no concerning findings. CT scan returned showing no acute concerning abnormalities. There is some minimal circumferential bladder wall thickening that could be from under distention and/or cystitis. Either way she is recovering from her UTI. I do believe her pain was related to pyelonephritis and just has residual pain and tenderness from it currently. She should get better over the next few days. Considering how much pain she is having with it though I will prescribe her some oxycodone via instymeds. She is agreeable to this plan Lab Data Labs: Lab Results 04/02/25 04/02/25 Range/Units 11:54 12:00 WBC 6.76 (4.50-11.00) K/uL RBC 4.32 (4.00-5.20) m/uL Hgb 13.7 (12.0-16.0) gm/dL Hct 41.3 (33.0-51.0) % MCV 96 (80-100) fL MCH 32 (26-34) pg MCHC 33 (32-36) gm/dL RDW Coeff of Thelma 12.5 (11.5-15.5) % Plt Count 287 (140-440) K/uL Neut % (Auto) 52.2 (42.0-72.0) % Lymph % (Auto) 32.1 (20-44) % Miller % (Auto) 6.7 (0.0-11.0) % Eos % (Auto) 7.7 H (0.0-7.0) % Baso % (Auto) 1.2 (0.0-3.0) % Neut # (Auto) 3.53 (1.7-7.0) K/uL Lymph # (Auto) 2.17 (0.90-2.90) K/uL Miller # (Auto) 0.50 (0.00-0.90) K/UL Eos # (Auto) 0.50 (0.00-0.50) K/uL Baso # (Auto) 0.08 (0.00-0.30) K/uL Abs Immat Gran (auto) 0.01 (0.00-0.30) K/uL Imm/Tot Granulo (auto) 0.1 % Sodium 138 (135-149) mmol/L Potassium 3.4 L (3.6-5.1) mmol/L Chloride 105 (96-114) mmol/L Carbon Dioxide 25 (20-32) mmol/L Anion Gap 8 (7-15) mEq/L BUN 11 (7-30) mg/dL Creatinine 1.3 (0.5-1.5) mg/dL Estimated Creat Clear 45.77 Estimated GFR 49 ml/min Glucose 104 (60-115) mg/dL Calcium 9.1 (8.4-10.6) mg/dL Total Bilirubin 0.6 (0.1-1.5) mg/dL AST 30 (12-35) U/L ALT 24 (4-35) U/L Alkaline Phosphatase 86 (40-150) U/L Total Protein 7.5 (6.0-8.3) g/dL Albumin 4.4 (3.3-5.0) g/dL Urine Color Yellow (Yellow) Urine Appearance Clear (Clear) Urine pH 8.0 (5.0-8.5) Ur Specific [place] 1.015 (1.000-1.030) Urine Protein Negative (Negative) Urine Glucose (UA) Negative (Negative) Urine Ketones Negative (Negative) Urine Blood Trace-intact A (Negative) Urine Nitrite Negative (Negative) Urine Bilirubin Negative (Negative) Urine Urobilinogen 0.2 (0.2-1.0) Ur Leukocyte Esterase Negative (Negative) Urine RBC 0-2 (0-2) Urine WBC 0-2 (0-5) Ur Squamous Epith Cells Few (None-Few) Urine Bacteria None (None) Imaging Data CT scan abdomen pelvis: Attestation: I have reviewed the pertinent imaging results. Radiologist's impression: 1. Minimal circumferential bladder wall thickening, likely secondary to underdistention, but can be seen with cystitis. 2. No renal calculi or hydroureteronephrosis. 3. No bowel obstruction or inflammation. Please note that all CT scans at this facility use dose modulation, iterative reconstruction, and/or weight-based dosing when appropriate to reduce radiation dose to as low as reasonably achievable. Dictated by Juan Pablo Lakhani MD @ 04/02/2025 1:02:02 PM Discharge Plan Discharge Clinical Impression: Pyelonephritis Patient Disposition: Home, Self-Care Condition: Stable Instructions: Kidney Infection (ED) Additional Instructions: I do believe your flank pain is related to your resolving kidney infection. Your urine does not show any obvious urinary tract infection at this time but everything is likely still recovering considering her previous urinalysis did show UTI. Will prescribe oxycodone via instymeds for pain control. Your not be able to get further narcotic prescription for this condition in this emergency department and you will need to follow-up with your primary care provider. Return to emergency department for any new worsening symptoms. Continue taking your prescribed antibiotics. Prescriptions: No Action amitriptyline 25 mg tablet 25 mg PO QDAY duloxetine 20 mg capsule,delayed release(DR/EC) 20 mg PO QDAY buspirone 15 mg tablet 15 mg PO BID buspirone 30 mg tablet PO topiramate 200 mg tablet PO ciprofloxacin HCl 500 mg tablet 500 mg PO BID 7 Days Qty: 14 0RF vitamin B complex [B Complex-Vitamin B12] Tablet 1 tab PO QDAY epinephrine 0.3 mg/0.3 mL auto-injector 0.3 mg IM ONCE PRN (Reason: hypersensitivity reaction) Qty: 2 0RF Rx Instructions: as a single dose; may repeat once Ubrelvy 100 mg tablet 100 mg PO ONCE PRN Rx Instructions: as a single dose; may repeat once in >=2 hours after first dose if needed lisinopril-hydrochlorothiazide 10-12.5 mg tablet 1 tab PO QDAY Qty: 90 3RF omega-3 acid ethyl esters 1 gram capsule 1 cap PO QDAY Qty: 90 3RF topiramate 50 mg tablet 50 mg PO DAILY pregabalin 225 mg capsule 225 mg PO DAILY omeprazole 20 mg capsule,delayed release(DR/EC) 20 mg PO DAILY metoprolol succinate 25 mg tablet extended release 24 hr 25 mg PO DAILY rosuvastatin 20 mg tablet 20 mg PO DAILY Follow Up/Referrals: Lela Giraldo MD [Primary Care Provider, Family Practice] Stand Alone Forms: [facility] Info Instructions
[2025-04-02 12:01] LABS: Appearance Urine Clear (Clear)
--- OUTSIDE RECORDS SUMMARY | 2025-04-02 12:02 | XMS_ITS | Encounter Summary ---
Author Organization [facility] Address [address] [address] Care Team Providers Care Operator [employer] Name Role Phone Kathy Glover MD Primary Care Provider Toma Arguello NP Unavailable [phone] Laura Us MD Unavailable Luh Acharya-C Unavailable [phone] [facility] Primary Care Provider Jas Bojorquez DO Unavailable [phone] [employer]UX CONSULTANT Unavailable [phone] Jenise España MD Unavailable Unavailable Tierra Cancino-C Unavailable [phone] Luh Acharya-C Primary Care Provider + Luh Acharya-C Unavailable [phone] Tierra Cancino-C Unavailable [phone] Haven Buckner LINUX CONSULTANT Unavailable [phone] Luh Acharya-C Unavailable [phone] Haven Buckner LINUX CONSULTANT Unavailable [phone] Encounter Details Date Type Department Care Team (Late st Contact Info) Description 09/28/2020 Orders Only [facility] [address] [place] [address] Diaz Camargo MD [facility] [address] [place] [address] Encounter for screening for other viral diseases [...] AM CDT Legal Sex Female 3:41 AM COMPENSATION AND HRIS ANALYST Gender Identity Female 01/18/2019 9:01 AM [...] COVID-19? No / Unsure 09/27/2020 9:59 AM COMPENSATION AND HRIS ANALYST documented as of this encounter Plan of Treatment Not on file documented as of this encounter Results * Asymptomatic COVID-19 Virus (Coronavirus) by PCR (10/03/2020 1:26 PM COMPENSATION AND HRIS ANALYST) COVID-19 Virus PCR to [facility] - Source Nasopharyngeal 10/03/2020 1:26 PM COMPENSATION AND HRIS ANALYST [facility] COVID-19 Virus PCR to [facility] - Result Test received-See reflex to IDDL test SARS CoV2 (COVID-19) Virus RT-PCR 10/03/2020 3:28 PM COMPENSATION AND HRIS ANALYST [facility] Specimen from nasopharyngeal structure (specimen) 10/03/2020 1:26 PM COMPENSATION AND HRIS ANALYST 10/03/2020 1:27 PM COMPENSATION AND HRIS ANALYST us Diaz Camargo MD LAB - MICRO GENERAL ORDERABL ES Final Result [facility] [address] [place] [address], [facility] [address] [place], [place] [address] [phone] documented in this encounter Visit Diagnoses Diagnosis Encounter for screening for other viral diseases documented in this encounter Additional Health Concerns Infection Onset Date Last Indicated Resolved Time Rule Out COVID-19 06/06/2021 06/06/2021 06/06/2021 5:30 PM CDT Rule Out COVID-19 12/19/2021 12/19/2021 12/20/2021 1:02 PM CDT Assessment Noted Time PHQ-9 Depression Total Score: 1 07/27/20 20 2:05 PM COMPENSATION AND HRIS ANALYST documented as of this encounter Care Teams Operator [employer]arer Systems Relationship Specialty Start Date End Date Kathy Glover MD [address] [place] [id number] PCP - General Family Practice 06/03/15 10/05/[address] [address] PCP - General 10/06/20 11/20/21 Luh Acharya PA-C [address] [place] [id number] PCP - General Family Medicine 11/21/21 01/02/23 Toma Arguello NP [facility] [address] [place] [address] Nurse Practitioner Nurse Practitioner Psych/Mental Health 04/11/17 Laura Us MD [address] [address] Gastroenterology 12/20/18 Luh Acharya PA-C [address] [place] [address] [id number] Assigned PCP 06/20/20 03/31/21 Jas Bojorquez DO [address] [place] [address] [id number] Assigned PCP 04/01/21 05/21/21 Haven Buckner, LINUX CONSULTANT [address] [place] [address] [id number] Assigned PCP 05/22/21 11/26/21 Jenise España MD Assigned Heart and Vascular Provider 07/24/21 11/17/22 Tierra Cancino PA-C [address] [place] [address] Physician Head Of Ict Urology 11/17/21 Luh Acharya PA-C [address] [place] [id number] Assigned PCP 11/27/21 12/31/21 Tierra Cancino PA-C [address] [place] [address] Assigned Surgical Provider 12/11/21 06/08/23 Haven Buckner, NICOLE [address] [facility] [place] [facility] [place] [address] Assigned PCP 01/01/22 12/22/22 Luh Acharya PA-C [address] [place] [address], [place] [address] Assigned PCP 12/23/22 05/18/23 Haven Buckner CNP [address] [place] [address], [place] [address] Assigned PCP 05/19/23 02/05/25 documented as of this encounter
--- OUTSIDE RECORDS SUMMARY | 2025-04-02 12:02 | XMS_ITS | Encounter Summary ---
Author Organization [place] Address [address] [place] [address] Care Team Providers Care Ecological Economist Name Role Phone Kathy Glover MD Primary Care Provider Toma Arguello NP Unavailable [phone] Laura Us MD Unavailable Luh Acharya-C Unavailable +[phone] [facility] Primary Care Provider Jas Bojorquez DO Unavailable [phone] BucknerHaven lofton EMERGENCY SERVICE WORKER Unavailable [phone] Jenise España MD Unavailable Unavailable Tierra Cancino-C Unavailable [phone] Luh Acharya-C Primary Care Provider + Luh Acharya-C Unavailable + [phone] Tierra Cancino-C Unavailable [phone] Haven Buckner EMERGENCY SERVICE WORKER Unavailable [phone] Luh Acharya-C Unavailable [phone] Haven Buckner EMERGENCY SERVICE WORKER Unavailable [phone] Reason for Visit * Reason Comments Medication Refill Encounter Details Date Type Department Care Team (Late st Contact Info) Description 08/15/[address] [phone] Kathy Glover MD [address] [place], [place] [phone] Medication Refill Social History Tobacco Use Types [...] AM CDT Legal Sex Female 3:41 AM SPINNING ROOM WORKER Gender Identity Female 01/18/2019 9:01 AM [...] Raina Thomas - 08/18/2020 9:23 AM CST Exie message sent to patient to call and schedule follow up visit Raina Thomas/ Yeast Stacker NING ROOM WORKER * Telephone Encounter - Haven Navarro APRN CNP - 08/16/2020 5:03 PM SPINNING ROOM WORKER Images from the original note were not included. Due for physical wellness exam with pap; please help patient get this set up. #90 day fill. STELLA Johnson-SINCERE NING ROOM WORKER * Telephone Encounter - Agustina Mares RN - 08/16/2020 2:09 PM CST Routing refill request to provider for review/approval because: Drug interaction warning NING ROOM WORKER documented in this encounter Plan of Treatment Not on file documented as of this encounter Visit Diagnoses Diagnosis Persistent insomnia- managed by [facility] Neurology - Dr. [...] Total Score: 1 07/27/20 20 2:05 PM SPINNING ROOM WORKER documented as of this encounter Care Teams Ecological Economist Relationship Specialty Start Date End Date Kathy Glover MD [address] [place] [address] [phone] PCP - General Family Practice 06/03/15 10/05/20 [facility] [address] [place] [address] PCP - General 10/06/20 11/20/21 Luh Acharya PA-C [address] [place] [address] PCP - General Family Medicine 11/21/21 01/02/23 Toma Arguello NP [address] [address] Nurse Practitioner Nurse Practitioner Psych/Mental Health 04/11/17 Laura sU MD [address] [address] Gastroenterology 12/20/18 Luh Acharya PA-C [address] [place] [address]26 Assigned PCP 06/20/20 03/31/21 Jas Bojorquez DO [address] [place] [address] 428202 Assigned PCP 04/01/21 05/21/21 Haven Buckner, EMERGENCY SERVICE WORKER [address] [place] [address] 15864 Assigned PCP 05/22/21 11/26/21 Jenise España MD Assigned Heart and Vascular Provider 07/24/21 11/17/22 Tierra Cancino PA-C [address] [place] [address] Physician Sem Manager Urology 11/17/21 Luh Acharya PA-C [address] [place] [address] 29913 Assigned PCP 11/27/21 12/31/21 Tierra Cancino PA-C [address] [place] [address] Assigned Surgical Provider 12/11/21 06/08/23 Haven Buckner, EMERGENCY SERVICE WORKER [address] [facility] [place] [address] Assigned PCP 01/01/22 12/22/22 Luh Acharya PA-C [address] [place] [address], [place] [address] Assigned PCP 12/23/22 05/18/23 Haven Buckner, EMERGENCY SERVICE WORKER [address] [place] [address], [place] [address] Assigned PCP 05/19/23 02/05/25 documented as of this encounter
[2025-04-02 12:12] LABS: Hematocrit 41.3 % (33.0-51.0); Hemoglobin* 13.7 gm/dL (12.0-16.0); Immature Granulocytes Abs Auto 0.01 K/uL (0.00-0.30); Immature Granulocytes Pct Auto 0.1 %; Lymphocytes Absolute Auto 2.17 K/uL (0.90-2.90); Mean Corpuscular HGB Conc 33 gm/dL (32-36); Mean Corpuscular Hemoglobin 32 pg (26-34); Mean Corpuscular Volume 96 fL (80-100); RDW Coefficient of Variation % 12.5 % (11.5-15.5); Red Blood Count 4.32 m/uL (4.00-5.20); White Blood Count* 6.76 K/uL (4.50-11.00)
[2025-04-02 12:18] LABS: Slide Review Reflex No
[2025-04-02 12:22] LABS: Albumin* 4.4 g/dL (3.3-5.0); Chloride* 105 mmol/L (96-114); Potassium* 3.4 mmol/L (3.6-5.1); Sodium* 138 mmol/L (135-149)
[2025-04-02 12:25] LABS: Alanine Aminotransferase* 24 U/L (4-35); Alkaline Phosphatase* 86 U/L (40-150); Anion Gap 8 mEq/L (7-15); Aspartate Amino Transferase* 30 U/L (12-35); Bilirubin Total* 0.6 mg/dL (0.1-1.5); Blood Urea Nitrogen* 11 mg/dL (7-30); Calcium* 9.1 mg/dL (8.4-10.6); Carbon Dioxide* 25 mmol/L (20-32); Creatinine* 1.3 mg/dL (0.5-1.5); Est. Creatinine Clearance* 45.77; Estimated Glomerular Filt Rate 49 ml/min; Glucose* 104 mg/dL (60-115); Total Protein* 7.5 g/dL (6.0-8.3)
== END 2025-04-02 14:07 | disposition home or self-care (01) ==
PROVIDERS: Emergency Provider Student in an Organized Health Care Education/Training Program; PCP Family Medicine
DX: N10 Acute pyelonephritis (principal)
CPT/HCPCS: 36415; 74177; 80053; 81001; 85025; 96374; 99284; J1885; Q9967

== ENCOUNTER 2025-04-03 06:40 | Emergency (ER) | payer BC, SELFPAY ==
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
--- OUTSIDE RECORDS SUMMARY | 2021-12-09 23:30 | XMS_ITS | Continuity of Care Document ---
Author Organization [facility] Address [address] [address] [place] [address] Phone Care Team Providers Care Trend Investigator Name Role Phone No Information Unavailable Unavailable Allergies, Adverse Reactions, Alerts Substance Reaction Status Criticality ciprofloxacin Rash Active No Information BANDAGES, COHESIVE Blisters Active No Inform ation Medications Medication Instructions Dosage Effective Dates (start - stop) Status Comments gabapentin 600 mg tablet take 2 tablets in the evening and one in the morning - Active lisinopril 10 mg tablet take 1 tablet by oral route every day 10 MG - Active cholestyramine (with sugar) 4 gram powder for susp in a packet Use 1-2 packets daily for diarrhea, take 1 hour before or 4 hours after your home medications. - Active venlafaxine ER 150 mg capsule,extended release 24 hr take 1 capsule by oral route every day 150 MG - Active Vitamin D3 5,000 unit tablet take 1 Tablet by Oral route every day 1 Tablet - Active GLUCOSAMINE SULFATE (unknown strength) take 1 Tablet by Oral route every day Not Available - Active tramadol 50 mg tablet take 1 Tablet by ORAL route every 6 hours as needed 50 MG - Active Vicodin 5 mg-300 mg tablet take 1 Tablet by oral route every day as needed 1 Tablet - Active isometheptene-dichlor alphen-acetaminophen 65 mg-100 mg-325 mg capsule take 1 capsule by oral route PRN - Active SUMATRIPTAN (unknown strength) spray 1 spray by intranasal route once; if headache returns, dose may be repeated once after 2 hours, not to exceed 40 mg per day Not Available - Active trazodone 50 mg tablet take 1 tablet (50MG) by ORAL route every day at bed time 50 MG - Active AMBIEN (unknown strength) take 1 Tablet (50MG) by ORAL route every day as needed Not Available - Active Multivitamin unknown Oral take 1 Capsule by oral route every day - Active B-100 Complex tablet take 1 Tablet by Oral route every day 1 Tablet - Active VITAMIN C (unknown strength) take 1 by Oral route every day Not Available - Active pantoprazole 20 mg tablet,delayed release take 1 tablet (20MG) by ORAL route every day 20 MG - Active magnesium 250 mg tablet take 1 Tablet by Oral route every day 1 Tablet - Active Calcium with Vitamin D 600 mg (1,500 mg)-400 unit tablet take 1 by Oral route every day 1 - Active Procedures Procedure Date Colonoscopy Flex; Dx (sep Pro) 20 Moderate Sedation, Initial 15 minutes Ja Offic/outpt E&m Estab Low-mod 6 Colonoscopy Flex; W/bx 1/mx Level Iv-surg Path Gross/micro 14 Offic/outpt E&m Estab Mod-hi 2 14 Routine Serum Collection Bld Ct; Hg/pltlt Ct Auto/compl 14 Ugi Endo; Dx W/wo Collec Specm 13 Sigmoidoscopy Flex; W/bx 1/mx 7 Init Inpt Cons New/est Mod-hi 7 Advance Directives Directive Yes / No Effective Date File Name No Information Encounters Encounter Description Practice Location Reason(s) For Visit Diagnoses Date Provider Providers Copied on Encounter [facility] [address] [address], [place], [id number], [place] tel:[phone] No Information Mar-2 6-202 2 No Information [facility], [address] [address], [place], [id number], [place] tel:[phone] [facility] No Information 0 Tamela Moffett. [address] [facility], [address] [address], [place], [place], [id number], [place]. tel:[phone] Referring Provider: Betina Knapp, [address] [address], [place], [address]. tel:[phone] Offic/outpt E&m Estab Low-mod [facility], [address] [address], [place], [id number], [place] tel:[phone] [facility] GI Symptoms or Concerns (chief complaint) DiarrheaDieta ry counseling and surveillanceE ssential (primary) hypertension 6 [place] Shivani. [address] [facility], [address], [id number], [place]. tel:[phone] Referring Provider: [place], [address] [place] [address], [address]. tel:[phone] [facility], [address] [address], [place], [id number], [place] tel:[phone] [facility] Diverticulosi s of colonDivertic ulosis Of Colon 4 Tamela Moffett. [address] [facility], [address], [id number], [place]. tel:[phone] Referring Provider: Referral Self, USE FOR SELF REFERRALS. Offic/outpt E&m Estab Mod-hi 2 [facility], [address] [address], [place], [id number], [place] tel:[phone] [facility] GI Symptoms or Concerns (chief complaint) DiarrheaDieta ry Surveil/couns el 6201 4 Earle [place]. [address] [facility], [address] [address], [place], [place], [id number], [place]. tel:[phone] Alessia Wong CNP. tel:[phone] ng Provider: Alessia Wong CNP M, [address], [place], [address]. tel:[phone] [facility], [address] [address], [place], [place], [id number], [place] tel:[phone] [facility] Gastroesophag eal RefluxGastroe sophageal Reflux 3 Katie Mark. [address] [facility], [facility] [address], [place], [id number], [place]. tel:[phone] Init Inpt Cons New/est Mod-hi [facility], [address] [address], [place], [place], [id number], [place] tel:[phone] No Information No Information Referring Provider: Gerson Dias, [address] [place], [address]. tel:[phone] Family History Family Member Type Diagnosis Age At Onset Brother Problem (finding) diverticulitis of colon Mother Problem (finding) Alive and well Father Problem (finding) Reflux Father Problem (finding) IBS Problem (finding) Family history of Neuroendocrine carcinoma (Cause Of ) Brother Problem (finding) Colon polyps Immunizations Vaccine Date Status Comments Fluzone Quad 6mo or older administered Note: [facility] bi-direct ional interface ; Source: Other Registry Fluzone Quad 6mo or older administered Note: [facility] bi-direct ional interface ; Source: Other Registry Fluzone Quad 6mo or older administered Note: [facility] bi-direct ional interface ; Source: Other Registry Fluzone Quad 6mo or older administered Note: [facility] bi-direct ional interface ; Source: Other Registry Fluzone Quad 6mo or older administered Note: [facility] bi-direct ional interface ; Source: Other Registry Influenza virus vaccine, injectable, quadrivalent, split virus, preservative free, 3 years or older Fluarix Quad [id number] administered Source: Other Provid er influenza virus vaccine, unspecified formulation administered Note: [facility] bi-di rectional interface ; Source: Other Registry Influenza, seasonal, injectable administe red Note: [facility] bi- directional interface ; Source: Other Registry tetanus toxoid, reduced diphtheria toxoid, and acellular pertussis vaccine, adsorbed administered Note: [facility] b i-directional interface ; Source: Other Registry influenza virus vaccine, unspecified formulation administered Note: [facility] bi-di rectional interface ; Source: Other Registry Payers Payer name Insurance type Covered libertarian ID Authoriza tion(s) No Information Social History Type Description Quantity Date Captured Comments Sex Female Smoking Status No Information Chief Complaint And Reason For Visit No Information Reason For Referral Reason For Referral No Information Plan Of Treatment Date Type Action Status Goal Lifestyle education regardin g diet completed Goal Lifestyle education regardin g diet completed History Of Present Illness Encounter Date Complaint History Of Prese nt Illness GI Symptoms or Concerns Yenni riley is a 45-year-old female with a history of chronic diarrhea, who presents today in followup. The patient initially established care in 2012. She does carry history of diverticulitis as well as irritable bowel syndrome. She describes symptoms of loose watery stool for at least the past seven to 10 years. Currently, she can have three or five bowel movements each day on a good day. On a bad day upwards of 10. She describes that these can be very urgent as well. She takes Imodium anywhere between 4 and 8 mg each day. This somewhat improves her stooling frequency. Additional symptoms do include some lower abdominal cramping. This comes on prior to bowel movement. After having a bowel movement, she has resolution of her abdominal discomfort. The patient denies any black or bloody stool. She was apparently instructed back in 2006 that after being told she had diverticulosis she was instructed to stop eating fruits, vegetables, seeds and nuts. She believes that these f GI Symptoms or Concerns The symp toms began 7 years ago. The symptoms are reported as being moderate. The symptoms occur daily. The location is stool, colon. She states the symptoms are chronic. Ms. Dyson is a 43-year-old woman with a history of anxiety/depression, irritable bowel syndrome, diverticulosis/diverticulitis, chronic pain (prior laminectomy), and hysterectomy/oophorectomy with bladder sling (June 2007), who is seen to discuss symptoms of diverticulitis and diarrhea.She has had diarrhea symptoms for at least seven years. She states this predated her pelvic surgery in 2006. She describes frequent, urgent, explosive stools occurring up to seven or eight times per day. Her bowel movements most commonly occur shortly after eating most meals. The stools are nonbloody, but are somewhat open dark. She did have colonoscopy back in 2006, at which time she was told she had diverticulosis and was instructed to stop eating fruits, vegetables, and seeds/nuts.In addition, she reports Functional Status Date Functional Assessmen t No Information Instructions Date Instruction Additional Infor lara Lifestyle education regarding di et Related to Dietary counseling and surveillance IBS Related to Diarr hea Colon Cancer Prevention Related to Diverticulosis of colon Diverticulosis/Diverticulitis Re lated to Diverticulosis of colon 1.) Colonoscopy will look for evidence of microscopic colitis, inflammatory bowel disease, new polyps, and the extent of the diverticulosis.2.) If all of the testing is looking good (normal) then we might consider a trial of the bile acid binding medication. Related to Diarrhea Lifestyle education regarding di et Related to Dietary surveillance and counseling Assessments Type Assessment Date No Information Patient Care Teams Name Effective Dates (start - stop) Status Members No Information
--- OUTSIDE RECORDS SUMMARY | 2021-12-09 23:30 | XMS_ITS | Continuity of Care Document ---
Author Organization [facility] Address [address] [address] [place] [address] Phone Care Team Providers Care Grip Boss Name Role Phone No Information Unavailable Unavailable [...] Encounter [facility] [address] [address], [place], [id number], [place] tel:[phone] No Information Mar-2 6-202 2 No Information [facility], [address] [address], [place], [id number], [place] tel:[phone] [facility] No Information 0 Tamela Moffett. [address] [facility], [address] [address], [place], [place], [id number], [place]. tel:[phone] Referring Provider: Betina Knapp, [address] [address], [place], [address]. tel:[phone] Offic/outpt E&m Estab Low-mod [facility], [address] [address], [place], [id number], [place] tel:[phone] [facility] GI Symptoms or Concerns (chief complaint) DiarrheaDieta ry counseling and surveillanceE ssential (primary) hypertension 6 [place] [facility] Shivani. [address] [facility], [address], [id number], [place]. tel:[phone] Referring Provider: [place], [address] [place] [address], [address]. tel:[phone] [facility], [address] [address], [place], [id number], [place] tel:[phone] [facility] Diverticulosi s of colonDivertic ulosis Of Colon 4 Tamela Moffett. [address] [facility], [address], [id number], [place]. tel:[phone] Referring Provider: Referral Self, USE FOR SELF REFERRALS. Offic/outpt E&m Estab Mod-hi 2 [facility], [address] [address], [place], [id number], [place] tel:[phone] [facility] GI Symptoms or Concerns (chief complaint) DiarrheaDieta ry Surveil/couns el 6201 4 Earle [place]. [address] [facility], [address] [address], [place], [place], [id number], [place]. tel:[phone] Alessia Wong CNP. tel:[phone] ng Provider: Alessia Wong CNP M, [address], [place], [address]. tel:[phone] [facility], [address] [address], [place], [place], [id number], [place] tel:[phone] [facility] Gastroesophag eal RefluxGastroe sophageal Reflux 3 Katie Mark. [address] [facility], [facility] [address], [place], [id number], [place]. tel:[phone] Init Inpt Cons New/est Mod-hi [facility], [address] [address], [place], [place], [address], [place] tel:[phone] No Information No Information Referring Provider: Gerson Dias, [address] [place], [address]. tel:[phone] Family History Family Member Type Diagnosis Age [...] free, 3 years or older Fluarix Quad [id number] administered Source: Other Provid er influenza virus [...]
--- OUTSIDE RECORDS SUMMARY | 2025-03-31 06:32 | XMS_ITS | Continuity of Care Document ---
Author Organization [facility] christine Address 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 Role Phone Will MD VILLARREAL, George Unavailable Unavailabl e Allergies, Adverse Reactions, Alerts Substance Reaction Status [...] dissolve, then swallow 4 MG - Active pregabalin 225 mg capsule take 1 capsule by oral route every day 225 MG - Active duloxetine 20 mg capsule,delayed release take 1 capsule by oral route 2 times every day 20 MG - Active diclofenac sodium 75 mg tablet,delayed release take 1 tablet by oral route 2 times every day 75 MG - Active pravastatin 20 mg tablet take 1 tablet b y oral route every day 20 MG - Active Wal-itin D 10 mg-240 mg tablet,extended release take 1 tablet by oral route every day 1.00 tablet - Active CALCIUM CITRATE-VIT D3 (unknown strength) Not Available - Active bupropion HCl XL 150 mg 24 hr tablet, extended release take 1 tablet by oral route every day 150 MG - Active Procedures Procedure Date OFFICE VISIT, EST TELEMEDICINE OFFICE/OUTPATIENT VISIT, EST OFFICE/OUTPATIENT VISIT, EST Drug test def 8-14 classes Drug Urine Toxology With Chromatography OFFICE/OUTPATIENT VISIT, EST INJ TRIGGER POINT, 09/18 MUSCL OFFICE/OUTPATIENT VISIT, EST Drug test def 8-14 [...] a per unit OFFICE VISIT, EST TELEMEDICINE Foll-up eval q3mo opiod tx INJECT TRIGGER [...] 21 Foll-up eval q3mo opiod tx Drug test def 8-14 classes Drug Urine Toxology With Chromatography Botulinum toxin a per unit Destroy Nerve Face For Chronic Migraine Botulinum toxin a per unit OFFICE VISIT, EST TELEMEDICINE 20 Foll-up eval q3mo opiod tx Foll-up eval q3mo opiod tx OFFICE VISIT, EST TELEMEDICINE 20 OFFICE VISIT, EST TELEMEDICINE 20 Foll-up eval [...] Diagnoses Date Provider Providers Copied on Encounter [facility], [address] [place] [address], [id number] , [place] tel:[phone] [facility] No Information 5 Evelio Vazquez. [address] [place] [address], [id number], [place]. tel:[phone] OFFICE VISIT, [facility] TELEMEDICINE [facility], [address] [place] [address], [id number] , [place] tel:[phone] [facility] low back pain (chief complaint) Chronic pain syndromePostlami nectomy syndrome, not elsewhere classifiedMyalgi a, other siteLong term (current) use of opiate analgesicPain in left hipPain in right hip Nov-0 5 Fernando Oliver. [address], [address], [place], [place], [id number], [place]. tel:[phone] Referring Provider: George Zurita, [address] [place], [address] . tel:[phone] OFFICE/OUTPAT IENT VISIT, [facility], [address] [place] [address], [id number] , [place] tel:[phone] [facility] low back pain (chief complaint) Chronic pain syndromePostlami nectomy syndrome, not elsewhere classifiedMyalgi a, other siteLong term (current) use of opiate analgesic 4 Jin Summers. [address], [place], [place], [id number], [place]. tel:[phone] Referring Provider: George Zurita, [address] [place] [address] [place], [address] . tel:[phone] OFFICE/OUTPAT IENT VISIT, [facility], [address] [place] [address], [id number] , [place] tel:[phone] [facility] low back pain (chief complaint) Chronic pain syndromePostlami nectomy syndrome, not elsewhere classifiedMyalgi a, other siteLong term (current) use of opiate analgesicBody mass index [BMI]30.0-30.9, adultEncounter for therapeutic drug level monitoring 4 Andrew Gallardo. [address] [place] [address], [id number], [place]. tel:[phone] Referring Provider: George Zurita, [address] [place] [address] [place], [address] . tel:[phone] [facility], [address] [place] [address], [id number] , [place] tel:[phone] [facility] No Information 4 Jacquelyn Rhoades. [place], [address] [place], [address], [place]. tel:[phone] OFFICE/OUTPAT IENT VISIT, [facility], [address] [place] [address], [id number] , [place] tel:[phone] [facility] low back pain (chief complaint) Chronic pain syndromePostlami nectomy syndrome, not elsewhere classifiedMyalgi a, other siteLong term (current) use of opiate analgesic 4 Leatha Dinero. [address], [place], [place], [id number], [place]. tel:[phone] Referring Provider: George Zurita, [address] [place], [address] . tel:[phone] OFFICE/OUTPAT IENT VISIT, [facility], [address] [place] [address], [id number] , [place] tel: [phone] [facility] low back pain (chief complaint) Chronic pain syndromePostlami nectomy syndrome, not elsewhere classifiedMyalgi a, other siteLong term (current) use of opiate analgesicEncount er for therapeutic drug level monitoring 4 Sdcholo Summers. [address], [place], [place], [id number], [place]. [phone] Referring Provider: George Zurita, [address] [place] [address] [place], [address] . tel:[phone] OFFICE/OUTPAT IENT VISIT, [facility], [address] [place] [address], [id number] , [place] tel: [phone] [facility] bilateral hip pain (chief complaint) Chronic migraine without aura, intractable, without status migrainosusChron ic pain syndromeTrochant jatin bursitis, right hipMyalgia, other sitePostlaminect asuncion syndrome, not elsewhere classifiedLong term (current) use of opiate analgesicEncount er for therapeutic drug level monitoring 3 Jacquelyn Rhoades. [place], [address] [place], [address], [place]. [phone] Referring Provider: George Zurita, [address] [place] [address] [place], [address] . tel:[phone] [facility], [address] [place] [address], [id number] , [place] tel:[phone] [facility] No Information 3 Jacquelyn Rhoades. [place], [address] [place], [address], [place]. [phone] Referring Provider: George Zurita, [address] [place] [address] [place], [address] . tel:[phone] [facility], [address] [place], [id number] , [place] tel:[phone] [facility] No Information [address] [place], [place], [id number], [place]. [phone] OFFICE VISIT, EST TELEMEDICINE [facility], [address] [place] [address] [place], [place], [id number] , [place] tel:[phone] [facility] bilateral hip pain (chief complaint) Chronic migraine without aura, intractable, without status migrainosusChron ic pain syndromeTrochant jatin bursitis, right hipMyalgia, other sitePostlaminect asuncion syndrome, not elsewhere classifiedLong term (current) use of opiate analgesic 3 Jacquelyn Hutson [place], [address] [place], [address], [place]. tel:[phone] Referring Provider: George Zurita, [address] [place] [address] [place], [address] . tel:[phone] OFFICE VISIT, EST TELEMEDICINE [facility], [address] [place] [address], [id number] , [place] tel:[phone] [facility] bilateral hip pain (chief complaint) Chronic migraine without aura, intractable, without status migrainosusChron ic pain syndromeTrochant jatin bursitis, right hipMyalgia, other sitePostlaminect asuncion syndrome, not elsewhere classifiedLong term (current) use of opiate analgesic 3 Jacquelyn Hutson [place], [address] [place], [address], [place]. tel:[phone] Referring Provider: George Zurita, [address] [place] [address] [place], [address] . tel:[phone] [facility], [address] [place] [address], [id number] , [place] tel:[phone] [facility] No Information 3 Jacquelyn Hutson [place], [address] [place], [place], [facility], [place]. tel:[phone] OFFICE/OUTPAT IENT VISIT, [facility], [address] [place] [address], [id number] , [place] [phone] [facility] bilateral hip pain (chief complaint) Chronic migraine without aura, intractable, without status migrainosusChron ic pain syndromeTrochant jatin bursitis, right hipMyalgia, other sitePostlaminect asuncion syndrome, not elsewhere classifiedLong term (current) use of opiate analgesicEncount er for therapeutic drug level monitoringEncoun ter for screening for other disorder 3 Jacquelyn Hutson [place], [address] [place], [place], [facility], [place]. tel:[phone] Referring Provider: George Zurita, [address] [place], [place] [address], [address] . tel:[phone] OFFICE VISIT, [facility], [address] [place] [address], [id number] , [place] tel:[phone] [facility] Hip pain (chief complaint) Chronic migraine without aura, intractable, without status migrainosusChron ic pain syndromeTrochant jatin bursitis, right hipMyalgia, other sitePostlaminect asuncion syndrome, not elsewhere classifiedLong term (current) use of opiate analgesic 2 Tigre Velasquez. [address], [place], [place], [id number], [place]. tel:[phone] Referring Provider: George Zurita, [address] [place], [place] [address], [address] . tel:[phone] OFFICE VISIT, [facility], [address] [place] [address], [id number] , [place] tel:[phone] [facility] bilateral hip pain (chief complaint) Chronic migraine without aura, intractable, without status migrainosusChron ic pain syndromeTrochant jatin bursitis, right hipMyalgia, other sitePostlaminect asuncion syndrome, not elsewhere classifiedLong term (current) use of opiate analgesic Nov-1 0- 2 Tigre Velasquez. [address], [place], [place], [id number], [place]. tel:[phone] Referring Provider: George Zurita, [address] [place], [place] [address], [address] . tel:[phone] [facility], [address] [place] [address], [id number] , [place] tel:[phone] [facility] No Information Sep-0 2 Jacquelyn [place], [address] [place], [address], [place]. [phone] OFFICE/OUTPAT IENT VISIT, [facility], [address] [place] [address], [id number] , [place] tel:[phone] [facility] bilateral hip pain (chief complaint) Chronic migraine without aura, intractable, without status migrainosusChron ic pain syndromeTrochant jatin bursitis, right hipMyalgia, other sitePostlaminect asuncion syndrome, not elsewhere classifiedLong term (current) use of opiate analgesic Sep-0 2 Jacquelyn [place], [address] [facility], [place], [address], [place]. [phone] Referring Provider: George Zurita, [address] [place], [address] . tel:[phone] OFFICE VISIT, EST TELEMEDICINE [facility], [address] [place] [address], [id number] , [place] tel:[phone] [facility] Hip Pain (chief complaint) Chronic migraine without aura, intractable, without status migrainosusChron ic pain syndromeTrochant jatin bursitis, right hipMyalgia, other sitePostlaminect asuncion syndrome, not elsewhere classifiedLong term (current) use of opiate analgesic Mar-2 2 Jacquelyn Suggs, [address] [place], [address], [place]. tel:[phone] [facility], [address] [place] [address], [id number] , [place] tel: [phone] [facility] Chronic migraine without aura, intractable, without status migrainosus 2 Valladaresgreg [place], [address] [facility], [place], [address], [place]. tel: [phone] Referring Provider: George Zurita, [address] [place], [place] [address], [address] . tel:[phone] OFFICE VISIT, [facility] TELEMEDICINE [facility], [address] [place] [address], [id number] , [place] tel: [phone] [facility] Hip Pain (chief complaint) Chronic pain syndromePostlami nectomy syndrome, not elsewhere classifiedTrocha nteric bursitis, right hipLong term (current) use of opiate analgesicChronic migraine without aura, intractable, without status migrainosusMyalg ia, other site 2 Valladaresgreg [place], [address] [facility], [place], [address], [place]. tel:[phone] OFFICE VISIT, EST TELEMEDICINE [facility], [address] [place] [address], [id number] , [place] tel: [phone] [facility] bilateral hip pain (chief complaint) Chronic pain syndromePostlami nectomy syndrome, not elsewhere classifiedTrocha nteric bursitis, right hipLong term (current) use of opiate analgesicChronic migraine without aura, intractable, without status migrainosusMyalg ia, other site 1 Valladaresgreg [place], [address], [place], [address], [place]. tel:[phone] [facility], [address] [place] [address], [id number] , [place] tel: [phone] [facility] Chronic migraine without aura, intractable, without status migrainosus 1 Jacquelyn Suggs, [address] [place], [address], [place]. tel:[phone] Referring Provider: George Zurita, [address] [place] [address] [place], [address] . tel:[phone] OFFICE VISIT, [facility] TELEMEDICINE [facility], [address] [place] [address], [id number] , [place] tel:[phone] [facility] bilateral hip pain (chief complaint) Chronic pain syndromePostlami nectomy syndrome, not elsewhere classifiedTrocha nteric bursitis, right hipLong term (current) use of opiate analgesicChronic migraine without aura, intractable, without status migrainosusMyalg ia, other site 1 Valladaresgreg Rhoades. [place], [address] [place], [address], [place]. tel:[phone] OFFICE VISIT, EST [facility], [address] [place] [address], [id number] , [place] tel:[phone] [facility] Leg Pain (chief complaint) Chronic pain syndromePostlami nectomy syndrome, not elsewhere classifiedTrocha nteric bursitis, right hipLong term (current) use of opiate analgesicChronic migraine without aura, intractable, without status migrainosusMyalg ia, other site 1 Jacquelyn Rhoades. [place], [address] [place], [address], [place]. [phone] Referring Provider: George Zurita, [address] [place], [place] [address], [address] . tel:[phone] [facility], [address] [place] [address], [id number] , [place] [phone] [facility] Postlaminectomy syndrome, not elsewhere classified 1 Jacquelyn Hutson [place], [address] [place], [address], [place]. [phone] Referring Provider: George Zurita, [address] [place] [address] [place], [address] . tel:[phone] OFFICE/OUTPAT IENT VISIT, [facility], [address] [place] [address], [id number] , [place] [phone] [facility] right leg pain (chief complaint) Postlaminectomy syndrome, not elsewhere classifiedChroni c pain syndromeTrochant jatin bursitis, right hipLong term (current) use of opiate analgesicChronic migraine without aura, intractable, without status migrainosusMyalg ia, other site 1 Jacquelyn Hutson [place], [address] [place], [address], [place]. tel:[phone] Referring Provider: George Zurita, [address] [place], [place] [address], [address] . tel:[phone] [facility], [address] [place] [address], [id number] , [place] [phone] [facility] Chronic migraine without aura, intractable, without status migrainosus 1 Jacquelyn Hutson [place], [address] [place], [address], [place]. tel:[phone] Referring Provider: George Zurita, [address] [place], [place] [address], [address] . tel:[phone] OFFICE VISIT, [facility] TELEMEDICINE [facility], [address] [place], [place], [id number] , [place] [phone] [facility] Leg Pain (chief complaint) Postlaminectomy syndrome, not elsewhere classifiedChroni c pain syndromeTrochant jatin bursitis, right hipLong term (current) use of opiate analgesicChronic migraine without aura, intractable, without status migrainosusMyalg ia, other site 1 Jacquelyn Hutson [place], [address] [place], [address], [place]. tel:[phone] Referring Provider: George Zurita, [address] [facility] [place], [address] . tel:[phone] OFFICE/OUTPAT IENT VISIT, [facility], [address] [place] [address], [id number] , [place] tel: [phone] [facility] Leg Pain (chief complaint) Postlaminectomy syndrome, not elsewhere classifiedChroni c pain syndromeTrochant jatin bursitis, right hipLong term (current) use of opiate analgesicChronic migraine without aura, intractable, without status migrainosusMyalg ia, other site 1 Valladares Jf. [place], [address] [place], [address], [place]. tel:[phone] Referring Provider: George Zurita, [address] [place], [place] [address], [address] . tel:[phone] OFFICE VISIT, [facility] TELEMEDICINE [facility], [address] [place] [address], [id number] , [place] tel: [phone] [facility] Leg Pain (chief complaint) Chronic migraine without aura, intractable, without status migrainosusMyalg ia, other sitePostlaminect asuncion syndrome, not elsewhere classifiedChroni c pain syndromeTrochant jatin bursitis, right hipLong term (current) use of opiate analgesic Dec- 1 Valladares Jf. [place], [address] [place], [address], [place]. tel:[phone] Referring Provider: George Zurita, [address] [place], [place] [address], [address] . tel:[phone] [facility], [address] [place] [address], [id number] , [place] [phone] [facility] Chronic migraine without aura, intractable, without status migrainosus Apr-0 1 Valladares Jf. [place], [address] [place], [address], [place]. tel:[phone] Referring Provider: George Zurita, [address] [place] [address] [place], [address] . tel:[phone] OFFICE VISIT, [facility], [address] [place], [place], [id number] , [place] tel:[phone] [facility] Leg Pain (chief complaint) Chronic migraine without aura, intractable, without status migrainosusMyalg ia, other sitePostlaminect asuncion syndrome, not elsewhere classifiedTrocha nteric bursitis, right hipChronic pain syndromeLong term (current) use of opiate analgesic 1 Jacquelyn Hutson [place], [address] [place], [address], [place]. tel:[phone] Referring Provider: George Zurita, [address] [place], [place] [address], [address] . tel:[phone] OFFICE VISIT, [facility], [address] [place] [address], [id number] , [place] tel:[phone] [facility] Leg Pain (chief complaint) Chronic migraine without aura, intractable, without status migrainosusMyalg ia, other sitePostlaminect asuncion syndrome, not elsewhere classifiedTrocha nteric bursitis, right hipChronic pain syndromeLong term (current) use of opiate analgesic 1 Jacquelyn [place], [address] [place], [address], [place]. tel:[phone] Referring Provider: George Zurita, [address] [place], [address] . tel:[phone] OFFICE/OUTPAT IENT VISIT, [facility], [address] [place] [address], [id number] , [place] [phone] [facility] Leg Pain (chief complaint) Chronic migraine without aura, intractable, without status migrainosusMyalg ia, other sitePostlaminect asuncion syndrome, not elsewhere classifiedTrocha nteric bursitis, right hipChronic pain syndromeLong term (current) use of opiate analgesic 1 Jacquelyn Hutson [place], [address] [place], [address], [place]. tel:[phone] Referring Provider: George Zurita, [address] [place] [address] [place], [address] . tel:[phone] OFFICE VISIT, [facility] TELEMEDICINE [facility], [address] [place] [address], [id number] , [place] [phone] [facility] Leg Pain (chief complaint) Chronic migraine without aura, intractable, without status migrainosusMyalg ia, other sitePostlaminect asuncion syndrome, not elsewhere classifiedTrocha nteric bursitis, right hipChronic pain syndromeLong term (current) use of opiate analgesic 1 Jacquelyn Rhoades. [place], [address] [place], [address], [place]. tel:[phone] Referring Provider: George Zurita, [address] [place] [address] [place], [address] . tel:[phone] [facility], [address] [place] [address], [id number] , [place] [phone] [facility] No Information 1 Jacquelyn Rhoades. [place], [address] [place], [address], [place]. tel:[phone] Referring Provider: George Zurita, [address] [place] [address] [place], [address] . tel:[phone] [facility], [address] [place] [address], [id number] , [place] [phone] [facility] Chronic migraine without aura, intractable, without status migrainosus 1 Jacquelyn Hutson [place], [address] [place], [address], [place]. tel:[phone] Referring Provider: George Zurita, [address] [place] [address] [place], [address] . tel:[phone] OFFICE VISIT, EST TELEMEDICINE [facility], [address] [place], [place], [id number] , [place] tel: [phone] [facility] [place] Leg Pain (chief complaint) Myalgia, other siteChronic migraine without aura, intractable, without status migrainosusPostl aminectomy syndrome, not elsewhere classifiedChroni c pain syndromeTrochant jatin bursitis, right hipLong term (current) use of opiate analgesic Dec-3 0- 0 Jacquelyn [place], [address] [place], [address], [place]. [phone] Referring Provider: George Zurita, [address] [place], [place] [address], [address] . tel:[phone] OFFICE VISIT, [facility], [address] [place] [address], [id number] , [place] tel:[phone] [facility] [place] Leg Pain (chief complaint) Myalgia, other siteChronic migraine without aura, intractable, without status migrainosusPostl aminectomy syndrome, not elsewhere classifiedChroni c pain syndromeTrochant jatin bursitis, right hipLong term (current) use of opiate analgesic Nov-2 0 0 Jacquelyn Suggs, [address] [place], [address], [place]. [phone] Referring Provider: George Zurita, [address] [place], [place] [address], [address] . tel:[phone] OFFICE VISIT, EST TELEMEDICINE [facility], [address] [place] [address], [id number] , [place] tel:[phone] [facility] Leg Pain (chief complaint) Chronic migraine without aura, intractable, without status migrainosusPostl aminectomy syndrome, not elsewhere classifiedChroni c pain syndromeTrochant jatin bursitis, right hipLong term (current) use of opiate analgesicMyalgia , other site Oct- 0 Jacquelyn Suggs, [address] [place], [address], [place]. tel:[phone] Referring Provider: George Zurita, [address] [place], [place] [address], [address] . tel:[phone] [facility], [address] [place] [address], [id number] , [place] tel:[phone] [facility] Chronic migraine without aura, intractable, without status migrainosus 0 Jacquelyn [place], [address] [place], [address], [place]. tel:[phone] Referring Provider: George Zurita, [address] [place], [place] [address], [address] . tel:[phone] OFFICE VISIT, [facility] TELEMEDICINE [facility], [address] [place] [address], [id number] , [place] [phone] [facility] Leg Pain (chief complaint) Chronic migraine w/o aura, intractable, w/o stat migrPostlaminect asuncion syndrome, not elsewhere classifiedChroni c pain syndromeTrochant jatin bursitis, right hipLong term (current) use of opiate analgesicMyalgia , other site 0 Jacquelyn Suggs, [address] [place], [address], [place]. tel:[phone] Referring Provider: George Zurita, [address] [place], [place] [address], [address] . tel:[phone] OFFICE/OUTPAT IENT VISIT, [facility], [address] [place] [address], [id number] , [place] [phone] [facility] Leg Pain (chief complaint) Chronic migraine w/o aura, intractable, w/o stat migrPostlaminect asuncion syndrome, not elsewhere classifiedChroni c pain syndromeTrochant jatin bursitis, right hipLong term (current) use of opiate analgesicMyalgia , other site 0 Jacquelyn [place], [address] [place], [address], [place]. tel:[phone] Referring Provider: George Zurita, [address] [place], [place] [address], [address] . tel:[phone] OFFICE VISIT, [facility] TELEMEDICINE [facility], [address] [place] [address], [id number] , [place] [phone] [facility] Leg Pain (chief complaint) Chronic migraine w/o aura, intractable, w/o stat migrPostlaminect asuncion syndrome, not elsewhere classifiedChroni c pain syndromeTrochant jatin bursitis, right hipLong term (current) use of opiate analgesic Apr- 0 Valladares Dan. [place], [address] [place], [address], [place]. tel:[phone] Referring Provider: George Zurita, [address] [place], [place] [address], [address] . tel:[phone] OFFICE VISIT, [facility] TELEMEDICINE [facility], [address] [place] [address], [id number] , [place] [phone] [facility]) Chronic migraine w/o aura, intractable, w/o stat migrPostlaminect asuncion syndrome, not elsewhere classifiedChroni c pain syndromeTrochant jatin bursitis, right hipLong term (current) use of opiate analgesic 0 Jacquelyn [place], [address] [place], [address], [place]. tel:[phone] Referring Provider: George Zurita, [address] [place], [place] [address], [address] . tel:[phone] [facility], [address] [place] [address], [id number] , [place] tel:[phone] [facility] Chronic migraine w/o aura, intractable, w/o stat migr Dell- 0 Valladaresgreg [place], [address] [place], [address], [place]. tel:[phone] Referring Provider: George Zurita, [address] [place] [address] [facility] [place], [address] . tel:[phone] OFFICE/OUTPAT IENT VISIT, [facility], [address] [place] [address], [id number] , tel:[phone] [facility] Leg Pain (chief complaint) Postlaminectomy syndrome, not elsewhere classifiedTrocha nteric bursitis, right hipChronic migraine w/o aura, intractable, w/o stat migrLong term (current) use of opiate analgesicChronic pain syndromeMyalgia, other site 0 Jacquelyn [place], [address] [place], [address], [place]. tel:[phone] Referring Provider: George Zurita, [address] [place] [address] [place], [address] . tel:[phone] OFFICE VISIT, [facility], [address] [place] [address], [id number] , [place] tel:[phone] [facility] Leg Pain (chief complaint) headache (chief complaint) Postlaminectomy syndrome, not elsewhere classifiedTrocha nteric bursitis, right hipChronic migraine w/o aura, intractable, w/o stat migrLong term (current) use of opiate analgesic 0 Jacquelyn Suggs, [address] [place], [address], [place]. tel:[phone] Referring Provider: George Zurita, [address] [place] [address] [facility] [place], [address] . tel:[phone] OFFICE VISIT, [facility], [address] [place] [address], [id number] , [place] tel:[phone] [facility] Leg Pain (chief complaint) Postlaminectomy syndrome, not elsewhere classifiedTrocha nteric bursitis, right hipChronic migraine w/o aura, intractable, w/o stat migrLong term (current) use of opiate analgesic 0 Jacquelyn Suggs, [address] [facility], [place], [address], [place]. [phone] Referring Provider: George Zurita, [address] [place] [address] [place], [address] . tel:[phone] OFFICE VISIT, [facility] TELEMEDICINE [facility], [address] [place] [address], [id number] , [place] tel:[phone] [facility] Leg Pain (chief complaint) Postlaminectomy syndrome, not elsewhere classifiedTrocha nteric bursitis, right hipChronic migraine w/o aura, intractable, w/o stat migrLong term (current) use of opiate analgesic Mar-3 0- 0 Jacquelyn [place], [address] [place], [address], [place]. tel:[phone] Referring Provider: George Zurita, [address] [place] [address] [place], [address] . tel:[phone] [facility], [address] [place] [address], [id number] , [place] tel:[phone] [facility] No Information 0 Glenys Mcfarlane. [facility], [address] [facility] [address] [facility] [address], [place], [address], [place]. tel:[phone] Referring Provider: George Zurita, [address] [place] [address] [place], [address] . tel:[phone] OFFICE/OUTPAT IENT VISIT, [facility], [address] [place] [address], [id number] , [place] [phone] [facility] Leg Pain (chief complaint) international organizer (current) use of opiate analgesicPostlam inectomy syndrome, not elsewhere classifiedTrocha nteric bursitis, right hipChronic migraine w/o aura, intractable, w/o stat migr Feb-0 0 Jacquelyn [place], [address] [facility], [place], [address], [place]. tel:[phone] Referring Provider: George Zurita, [address] [place] [address] [place], [address] . tel:[phone] [facility], [address] [place] [address], [id number] , tel:[phone] [facility] Chronic migraine w/o aura, intractable, w/o stat migr Dec-3 0-201 9 Valladares JfKodi [place], [address] [place], [place], [facility], [place]. [phone] Referring Provider: George Zurita, [address] [place] [address] [place], [address] . tel:[phone] OFFICE/OUTPAT IENT VISIT, [facility], [address] [place] [address], [id number] , [place] tel: [phone] [facility] Leg Pain (chief complaint) [facility]FP (current) use of opiate analgesicPostlam inectomy syndrome, not elsewhere classifiedTrocha nteric bursitis, right hipChronic migraine w/o aura, intractable, w/o stat migr Dec-0 2-201 9 Valladares Jf. [place], [address] [place], [place], [facility], [place]. [phone] Referring Provider: George Zurita, [address] [place] [address] [place], [address] . tel:[phone] OFFICE/OUTPAT IENT VISIT, [facility], [address] [place] [address], [id number] , [place] tel:[phone] [facility] Leg Pain (chief complaint) [facility]FP (current) use of opiate analgesicPostlam inectomy syndrome, not elsewhere classifiedTrocha nteric bursitis, right hipChronic migraine w/o aura, intractable, w/o stat migr Nov-0 6-201 9 Valladares Jf. [place], [address] [place], [place], [facility], [place]. [phone] Referring Provider: George Zurita, [address] [place] [address] [place], [address] . tel:[phone] OFFICE/OUTPAT IENT VISIT, [facility], [address] [place] [address] [place], [id number] , [place] tel:[phone] [facility] Leg Pain (chief complaint) Chronic pain syndromeChronic migraine w/o aura, intractable, w/o stat migrTrochanteric bursitis, right hipPostlaminecto my syndrome, not elsewhere classifiedLong term (current) use of opiate analgesic Oct- 0-201 9 Valladares Jf. [place], [address] [place], [address], [place]. [phone] Referring Provider: George Zurita, [address] [place] [address] [place], [address] . [phone] [facility], [address] [place] [address], [id number] , [place] [phone] [facility] Chronic migraine w/o aura, intractable, w/o stat migr Sep-2 3-201 9 Valladares Jf. [place], [address] [place], [address], [place]. tel:[phone] Referring Provider: George Zurita, [address] [place] [address] [place], [address] . [phone] [facility], [address] [place] [address], [id number] , [place] [phone] [facility] No Information Sep-0 9-201 9 Glenys Mcfarlane. [facility], [address] [facility] [address] [facility] [address], [place], [address], [place]. tel:[phone] Referring Provider: George Zurita, [address] [place] [address] [place], [address] . tel:[phone] OFFICE/OUTPAT IENT VISIT, [facility], [address] [place] [address] [place], [id number] , [place] tel:[phone] [facility] [place] Leg Pain (chief complaint) Chronic pain syndromeTrochant jatin bursitis, right hipChronic migraine w/o aura, intractable, w/o stat migrPostlaminect asuncion syndrome, not elsewhere classifiedLong term (current) use of opiate analgesic 9 Jacquelyn Rhoades. [place], [address] [facility], [place], [address], [place]. tel:[phone] Referring Provider: George Zurita, [address] [place], [address] . tel:[phone] OFFICE CONSULTATION [facility], [address] [place], [place], [id number] , [place] [phone] [facility] Leg Pain (chief complaint) Chronic pain syndromeTrochant jatin bursitis, right hipChronic migraine w/o aura, intractable, w/o stat migrPostlaminect asuncion syndrome, not elsewhere classifiedEncoun ter for therapeutic drug level monitoringLong term (current) use of opiate analgesic 9 Veronica Denys. [facility], [address] [facility] [address], [place], [address], [place]. tel:[phone] Referring Provider: Tan Chapa, [facility] [address], [address], [place], [address]. tel:[phone] Family History Family Member Type Diagnosis Age At Onset Father Problem (finding) back pain Payers Payer name Insurance type Covered constitution party ID Maegan osborn(s) [facility] [id number] Social History Type Description Quantity Date Captured Comments Alcohol Use Details Unknown Caffeine Use Details Unknown Tobacco Use Status Smoking Status No Information Sex Female Chief Complaint And Reason For Visit No Information Reason For Referral Reason For Referral No Information Plan Of Treatment Date Type Action Status Goal FIT. Due on due Goal Medication Recon ciliation. Due on due Goal Hepatitis C scre ening. Due on due Goal Tobacco screenin g. Due on due Goal Update Social Hi story. Due on due Goal CT-Colonography. Due on due Goal Height. Due on d ue Goal Tobacco Use. Due on 022 due Goal UDT. Due on due Goal Order Annual PT. Due on due Goal MENS LOCKER ROOM ATTENDANT Scanned. Due on 020 due Goal OARS. Due on due Goal ALT (SGPT). Due on due Goal AST (SGOT). Due on due Goal Creatinine. Due on due Goal BUSINESS OBJECTS ARCHITECT Paperwork. Due on due Goal Weight. Due on d ue Goal Zoster vaccine ( 1st). Due on due Goal Review Allergy L ist. Due on due Goal FIT-DNA. Due on due Goal PHQ-9. Due on du e Goal Unhealthy drug u se screening. Due on due Goal Order Annual PT. Due on due Goal Review Allergy L ist. Due on due Goal Weight. Due on d ue Goal Lipid panel. Due on 025 due Goal FIT. Due on due Goal FIT-DNA. Due on due Goal Height. Due on d ue Goal Medication Recon ciliation. Due on due Goal Hepatitis C scre ening. Due on due Goal Tobacco Use. Due on due Goal Update Social Hi story. Due on due Goal PHQ-9. Due on du e Goal CT-Colonography. Due on due Goal Zoster vaccine ( ). Due on due Goal UDT. Due on due Goal MENS LOCKER ROOM ATTENDANT Scanned. Due on due Goal OARS. Due on due Goal Creatinine. Due on due Goal AST (SGOT). Due on due Goal ALT (SGPT). Due on due Goal BUSINESS OBJECTS ARCHITECT Paperwork. Due on due Goal Unhealthy drug u se screening. Due on due Goal MENS LOCKER ROOM ATTENDANT Scanned. Due on due Goal BUSINESS OBJECTS ARCHITECT Paperwork. Due on due Goal AST (SGOT). Due on due Goal Creatinine. Due on due Goal OARS. Due on due Goal UDT. Due on due Goal Order Annual PT. Due on due Goal ALT (SGPT). Due on due Goal Weight. Due on d ue Goal Height. Due on d ue Goal Medication Recon ciliation. Due on due Goal FIT. Due on due Goal Zoster vaccine ( ). Due on due Goal Unhealthy drug u se screening. Due on due Goal CT-Colonography. Due on due Goal Review Allergy L ist. Due on due Goal Hepatitis C scre ening. Due on due Goal Update Social Hi story. Due on due Goal FIT-DNA. Due on due Goal PHQ-9. Due on du e Goal Tobacco Use. Due on due Goal Lipid panel. Due on due Goal ALT (SGPT). Due on due Goal Medication Recon ciliation. Due on due Goal Hepatitis C scre ening. Due on due Goal Review Allergy L ist. Due on due Goal Unhealthy drug u se screening. Due on due Goal Zoster vaccine ( ). Due on due Goal Height. Due on d ue Goal FIT. Due on due Goal Weight. Due on d ue Goal Lipid panel. Due on due Goal Tobacco Use. Due on due Goal Update Social Hi story. Due on due Goal CT-Colonography. Due on due Goal FIT-DNA. Due on due Goal PHQ-9. Due on du e Goal Creatinine. Due on due Goal MENS LOCKER ROOM ATTENDANT Scanned. Due on due Goal UDT. Due on due Goal Order Annual PT. Due on due Goal OARS. Due on due Goal AST (SGOT). Due on due Goal BUSINESS OBJECTS ARCHITECT Paperwork. Due on due Goal Lifestyle educat ion regarding diet completed Goal Tobacco cessation counseling completed Goal MENS LOCKER ROOM ATTENDANT Scanned. Due on due Goal BUSINESS OBJECTS ARCHITECT Paperwork. Due on due Goal AST (SGOT). Due on due Goal CT-Colonography. Due on due Goal FIT. Due on due Goal Hepatitis C scre ening. Due on due Goal Lipid panel. Due on due Goal PHQ-9. Due on du e Goal Height. Due on d ue Goal Review Allergy L ist. Due on due Goal Medication Recon ciliation. Due on due Goal Zoster vaccine ( 1st). Due on due Goal Update Social Hi story. Due on due Goal Weight. Due on d ue Goal Tobacco Use. Due on due Goal Unhealthy drug u se screening. Due on due Goal FIT-DNA. Due on due Goal Order Annual PT. Due on due Goal UDT. Due on due Goal Creatinine. Due on due Goal ALT (SGPT). Due on due Goal OARS. Due on due Goal Unhealthy drug u se screening. Due on due Goal CT-Colonography. Due on due Goal HPV. Due on due Goal FIT. Due on due Goal Medication Recon ciliation. Due on due Goal Height. Due on d ue Goal Update Social Hi story. Due on due Goal Review Allergy L ist. Due on due Goal Weight. Due on d ue Goal Zoster vaccine ( 1st). Due on due Goal Lipid panel. Due on due Goal Order Annual PT. Due on due Goal OARS. Due on due Goal ALT (SGPT). Due on due Goal BUSINESS OBJECTS ARCHITECT Paperwork. Due on due Goal UDT. Due on due Goal MENS LOCKER ROOM ATTENDANT Scanned. Due on due Goal AST (SGOT). Due on due Goal Creatinine. Due on due Goal FIT-DNA. Due on due Goal Tobacco Use. Due on due Goal PHQ-9. Due on du e Goal Hepatitis C scre ening. Due on due Goal Lifestyle educat ion regarding diet completed Goal Zoster vaccine ( ). Due on due Goal Medication Recon ciliation. Due on due Goal Unhealthy drug u se screening. Due on due Goal FIT-DNA. Due on due Goal Review Allergy L ist. Due on due Goal Hepatitis C scre [...] Goal AST (SGOT). Due on due Goal MENS LOCKER ROOM ATTENDANT Scanned. Due on due Goal OARS. Due on due Goal Creatinine. Due on due Goal BUSINESS OBJECTS ARCHITECT Paperwork. Due on due Goal Tobacco Use. Due on due Goal HPV. Due on due Goal Update Social Hi story. Due on due Goal PHQ-9. Due on du e Goal MENS LOCKER ROOM ATTENDANT Scanned. Due on due Goal Creatinine. Due on due Goal Zoster vaccine ( 1st). Due on due Goal Lipid panel. Due on due Goal UDT. Due on due Goal BUSINESS OBJECTS ARCHITECT Paperwork. Due on due Goal AST (SGOT). Due on due Goal Order Annual PT. Due on due Goal OARS. Due on due Goal ALT (SGPT). Due on due Goal Height. Due on d ue Goal Medication Recon ciliation. Due on due Goal FIT. Due on due Goal HPV. Due on due Goal Tobacco Use. Due on due Goal Review Allergy L ist. Due on due Goal CT-Colonography. Due on due Goal Hepatitis C scre ening. Due on due Goal Weight. Due on d ue Goal FIT-DNA. Due on due Goal Unhealthy drug u se screening. Due on due Goal Update Social Hi story. Due on due Goal AST (SGOT). Due on due Goal Zoster vaccine ( 1st). Due on due Goal Weight. Due on d ue Goal MENS LOCKER ROOM ATTENDANT Scanned. Due on due Goal UDT. Due on due Goal OARS. Due on due Goal ALT (SGPT). Due on due Goal Creatinine. Due on due Goal Tobacco Use. Due on due Goal Review Allergy L ist. Due on due Goal Hepatitis C scre [...] Order Annual PT. Due on due Goal BUSINESS OBJECTS ARCHITECT Paperwork. Due on due Goal Medication Recon ciliation. Due on due Goal MENS LOCKER ROOM ATTENDANT Scanned. Due on 020 due Goal Zoster vaccine ( 1st). Due on due Goal Order Annual PT. Due on due Goal Creatinine. Due on due Goal AST (SGOT). Due on due Goal OARS. Due on due Goal UDT. Due on due Goal ALT (SGPT). Due on due Goal BUSINESS OBJECTS ARCHITECT Paperwork. Due on due Goal Tobacco Use. Due on [address]-Colonography. Due on due Goal [...] Due on 023 due Goal Review Allergy L ist. Due on due Goal Lipid panel. Due on 023 due Goal HPV. Due on due Goal Zoster vaccine ( 1st). Due on due Goal FIT-DNA. Due on due Goal AST (SGOT). Due on due Goal Order Annual PT. Due on due Goal Creatinine. Due on due Goal FIT. Due on due Goal PHQ-9. Due on du e Goal BUSINESS OBJECTS ARCHITECT Paperwork. Due on due Goal UDT. Due on due Goal MENS LOCKER ROOM ATTENDANT Scanned. Due on 020 due Goal OARS. Due on due Goal ALT (SGPT). Due on due Goal CT-Colonography. Due on due Goal Review Allergy L ist. Due on due Goal Height. Due on d ue Goal Weight. Due on d ue Goal Medication Recon ciliation. Due on due Goal Update Social Hi story. Due on due Goal Tobacco Use. Due on due Goal Unhealthy drug u se screening. Due on due Goal Hepatitis C scre ening. Due on due Goal Height. Due on d ue Goal Review Allergy L ist. Due on due Goal Weight. Due on d ue Goal Medication Recon ciliation. Due on due Goal Update Social Hi story. Due on due Goal Zoster vaccine ( ). Due on due Goal FIT. Due on due Goal FIT-DNA. Due on due Goal HPV. Due on due Goal Hepatitis C scre ening. Due on due Goal Tobacco Use. Due on due Goal Unhealthy drug u se screening. Due on due Goal PHQ-9. Due on du e Goal Creatinine. Due on due Goal Order Annual PT. Due on due Goal ALT (SGPT). Due on due Goal AST (SGOT). Due on due Goal OARS. Due on due Goal UDT. Due on due Goal BUSINESS OBJECTS ARCHITECT Paperwork. Due on due Goal MENS LOCKER ROOM ATTENDANT Scanned. Due on due Goal CT-Colonography. Due on due Goal Lipid panel. Due on due Goal Review Allergy L ist. Due on due Goal Tobacco Use. Due on due Goal Medication Recon ciliation. Due on due Goal HPV. Due on due Goal Weight. Due on d ue Goal FIT. Due on due Goal Hepatitis C scre ening. Due on due Goal CT-Colonography. Due on due Goal Update Social Hi story. Due on due Goal Height. Due on d ue Goal OARS. Due on due Goal Creatinine. Due on due Goal UDT. Due on due Goal AST (SGOT). Due on due Goal MENS LOCKER ROOM ATTENDANT Scanned. Due on due Goal Zoster vaccine ( 1st). Due on due Goal FIT-DNA. Due on due Goal Lipid panel. Due on due Goal PHQ-9. Due on du e Goal Unhealthy drug u se screening. Due on due Goal BUSINESS OBJECTS ARCHITECT Paperwork. Due on due Goal ALT (SGPT). [...] Due on d ue Goal Review Allergy L ist. Due on due Goal HPV. Due on due Goal Medication Recon ciliation. Due on due Goal PHQ-9. Due on du e Goal ALT (SGPT). Due on due Goal BUSINESS OBJECTS ARCHITECT Paperwork. Due on due Goal Creatinine. Due on due Goal OARS. Due on due Goal MENS LOCKER ROOM ATTENDANT Scanned. Due on due Goal AST (SGOT). Due on due Goal Order Annual PT. Due on due Goal UDT. Due on due Goal Lipid panel. Due on due Goal FIT-DNA. Due on due Goal Lipid panel. Due on due Goal CT-Colonography. Due on due Goal PHQ-9. Due on du e Goal Hepatitis C scre ening. Due on due Goal AST (SGOT). Due on due Goal Creatinine. Due on due Goal UDT. Due on due Goal Order Annual PT. Due on due Goal ALT (SGPT). Due on due Goal OARS. Due on due Goal MENS LOCKER ROOM ATTENDANT Scanned. Due on 020 due Goal BUSINESS OBJECTS ARCHITECT Paperwork. Due on due Goal Height. Due [...] screening. Due on due Goal Review Allergy L ist. Due on due Goal PHQ-9. Due on du e Goal Medication Recon ciliation. Due on due Goal Review Allergy L ist. Due on due Goal Height. Due on d ue Goal Tobacco Use. Due on due Goal CT-Colonography. Due on due Goal FIT. Due on due Goal FIT-DNA. Due on due Goal Hepatitis C scre ening. Due on due Goal HPV. Due on due Goal Lipid panel. Due on due Goal Unhealthy drug u se screening. Due on due Goal Zoster vaccine ( ). Due on due Goal Update Social Hi story. Due on due Goal Weight. Due on d ue Goal MENS LOCKER ROOM ATTENDANT Scanned. Due on due Goal UDT. Due on due Goal Order Annual PT. Due on due Goal BUSINESS OBJECTS ARCHITECT Paperwork. Due on due Goal ALT (SGPT). Due on due Goal AST (SGOT). Due on due Goal Creatinine. Due on due Goal OARS. Due on due Goal Medication Recon ciliation. Due on due Goal Weight. Due on d ue Goal Tobacco Use. Due on due Goal Update Social Hi story. Due on due Goal Order Annual PT. Due on due Goal MENS LOCKER ROOM ATTENDANT Scanned. Due on due Goal AST (SGOT). Due on due Goal BUSINESS OBJECTS ARCHITECT Paperwork. Due on due Goal Creatinine. Due on due Goal ALT (SGPT). Due on due Goal UDT. Due on due Goal OARS. Due on due Goal PHQ-9. Due on du e Goal Review Allergy L ist. Due on due Goal Height. Due on d ue Goal PHQ-9. Due on du e Goal Height. Due on d ue Goal Medication Recon ciliation. Due on due Goal Weight. Due on d ue Goal Tobacco Use. Due on due Goal Update Social Hi story. Due on due Goal Order Annual PT. Due on due Goal MENS LOCKER ROOM ATTENDANT Scanned. Due on due Goal Review Allergy L ist. Due on due Goal AST (SGOT). Due on due Goal BUSINESS OBJECTS ARCHITECT Paperwork. Due on due Goal Creatinine. Due on due Goal ALT (SGPT). Due on due Goal UDT. Due on due Goal OARS. Due on due Goal OARS. Due on due Goal PHQ-9. Due on du e Goal Review Allergy L ist. Due on due Goal Height. Due on d ue Goal Medication Recon ciliation. Due on due Goal Weight. Due on d ue Goal Tobacco Use. Due on due Goal Update Social Hi story. Due on due Goal Order Annual PT. Due on due Goal MENS LOCKER ROOM ATTENDANT Scanned. Due on due Goal AST (SGOT). Due on due Goal BUSINESS OBJECTS ARCHITECT Paperwork. Due on due Goal Creatinine. Due on due Goal ALT (SGPT). Due on due Goal UDT. Due on due Goal AST (SGOT). Due on due Goal BUSINESS OBJECTS ARCHITECT Paperwork. Due on due Goal MENS LOCKER ROOM ATTENDANT Scanned. Due on due Goal Order Annual PT. Due on due Goal Creatinine. Due on due Goal ALT (SGPT). Due on due Goal UDT. Due on due Goal OARS. Due on due Goal PHQ-9. Due on du e Goal Review Allergy L ist. Due on due Goal Height. Due on d ue Goal Medication Recon ciliation. Due on due Goal Weight. Due on d ue Goal Tobacco Use. Due on due Goal Update Social Hi story. Due on due Goal Order Annual PT. Due on due Goal MENS LOCKER ROOM ATTENDANT Scanned. Due on due Goal AST (SGOT). Due on due Goal BUSINESS OBJECTS ARCHITECT Paperwork. Due on due Goal Creatinine. Due on due Goal ALT (SGPT). Due on due Goal UDT. Due on due Goal OARS. Due on due Goal PHQ-9. Due on du e Goal Review Allergy L ist. Due on due Goal Height. Due on [...] Social Hi story. Due on due Goal ALT (SGPT). Due on due Goal UDT. Due on due Goal OARS. Due on due Goal PHQ-9. Due on du e Goal Review Allergy L ist. Due on due Goal Order Annual PT. Due on due Goal MENS LOCKER ROOM ATTENDANT Scanned. Due on due Goal AST (SGOT). Due on due Goal BUSINESS OBJECTS ARCHITECT Paperwork. Due on due Goal Creatinine. Due on due Goal Review Allergy L ist. Due on due Goal Height. Due on d ue Goal Medication Recon ciliation. Due on due Goal Weight. Due on d ue Goal Tobacco Use. Due on due Goal UDT. Due on due Goal OARS. Due on due Goal PHQ-9. Due on du e Goal Order Annual PT. Due on due Goal MENS LOCKER ROOM ATTENDANT Scanned. Due on due Goal AST (SGOT). Due on due Goal BUSINESS OBJECTS ARCHITECT Paperwork. Due on due Goal Creatinine. Due on due Goal ALT (SGPT). Due on due Goal Update Social Hi story. Due on due Goal Order Annual PT. Due on due Goal MENS LOCKER ROOM ATTENDANT Scanned. Due on due Goal AST (SGOT). Due on due Goal BUSINESS OBJECTS ARCHITECT Paperwork. Due on due Goal Creatinine. Due on due Goal ALT (SGPT). Due on due Goal UDT. Due on due Goal OARS. Due on due Goal PHQ-9. Due on du e Goal Review Allergy L ist. Due on due Goal Height. Due on d ue Goal Medication Recon ciliation. Due on due Goal Weight. Due on d ue Goal Tobacco Use. Due on due Goal Update Social Hi story. Due on due Goal Review Allergy L ist. Due on due Goal Height. Due on d ue Goal UDT. Due on due Goal OARS. Due on due Goal PHQ-9. Due on du e Goal Medication Recon ciliation. Due on due Goal Weight. Due on d ue Goal Tobacco Use. Due on due Goal Update Social Hi story. Due on due Goal Order Annual PT. Due on due Goal MENS LOCKER ROOM ATTENDANT Scanned. Due on due Goal AST (SGOT). Due on due Goal BUSINESS OBJECTS ARCHITECT Paperwork. Due on due Goal Creatinine. Due on due Goal ALT (SGPT). Due on due Goal Medication Recon ciliation. Due on due Goal Weight. Due on d ue Goal Tobacco Use. Due on due Goal Order Annual PT. Due on due Goal MENS LOCKER ROOM ATTENDANT Scanned. Due on due Goal AST (SGOT). Due on due Goal BUSINESS OBJECTS ARCHITECT Paperwork. Due on due Goal Creatinine. Due on due Goal ALT (SGPT). Due on due Goal UDT. Due on due Goal OARS. Due on due Goal PHQ-9. Due on du e Goal Review Allergy L ist. Due on due Goal Height. Due on d ue Goal Update Social Hi story. Due on due Goal Tobacco Use. Due on due Goal Update Social Hi story. Due on due Goal UDT. Due on due Goal OARS. Due on due Goal PHQ-9. Due on du e Goal Review Allergy L ist. Due on due Goal Height. Due on d ue Goal Medication Recon ciliation. Due on due Goal Weight. Due on d ue Goal Order Annual PT. Due on due Goal MENS LOCKER ROOM ATTENDANT Scanned. Due on due Goal AST (SGOT). Due on due Goal BUSINESS OBJECTS ARCHITECT Paperwork. Due on due Goal Creatinine. Due on due Goal ALT (SGPT). Due on due Goal OARS. Due on due Goal UDT. Due on due Goal ALT (SGPT). Due on due Goal Creatinine. Due on due Goal BUSINESS OBJECTS ARCHITECT Paperwork. Due on due Goal AST (SGOT). Due on due Goal MENS LOCKER ROOM ATTENDANT Scanned. Due on due Goal Order Annual PT. Due on due Goal Update Social Hi story. Due on due Goal Tobacco Use. Due on due Goal Weight. Due on d ue Goal Medication Recon ciliation. Due on due Goal Height. Due on d ue Goal Review Allergy L ist. Due on due Goal PHQ-9. Due on du e Referral Ordered: Kathy Glover -Family Medicine (related to Chronic migraine w/o aura, intractable, w/o stat migr) ordered Referral Referred To: Kathy Glover [facility] [place], [address] [phone] Ordered: Referrals: Family Medicine. Kathy Glover ordered Future Order: Radiology Order XR Hips [employer] Pelvis 2V ([id number]), Sent on: Sent Future Order: Lab Order Drug Kasia t Def 22+ Classes ([id number]), Ordered on: Ordered Future Order: Lab Order COMPLIAN CE DRUG ANALYSIS, URINE, WITH MED REPORT ([id number]), Ordered on: Ordered Future Order: Lab Order Drug Kasia t Def 22+ Classes ([id number]), Ordered on: Ordered History Of Present Illness Encounter Date Complaint History Of Prese nt Illness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
--- OUTSIDE RECORDS SUMMARY | 2025-03-31 06:32 | XMS_ITS | Continuity of Care Document ---
Author Organization [facility] christine Address [address] 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, [address] [place] [address], [id number] , [place] tel:[phone] [facility] No Information 5 Evelio Vazquez. [address] [place] [address], [id number], [place]. tel:[phone] OFFICE VISIT, [facility] TELEMEDICINE [facility], [address] [place] [address], [id number] , [place] tel:[phone] [facility] low back pain (chief complaint) Chronic pain syndromePostlami nectomy syndrome, not elsewhere classifiedMyalgi a, other siteLong term (current) use of opiate analgesicPain in left hipPain in right hip Nov-0 5 Fernando Oliver. [address], [address], [place], [place], [id number], [place]. tel:[phone] Referring Provider: George Zurita, [address] [facility] [place], [address] . tel:[phone] OFFICE/OUTPAT IENT VISIT, [facility], [address] [place] [address], [id number] , [place] tel:[phone] [facility] low back pain (chief complaint) Chronic pain syndromePostlami nectomy syndrome, not elsewhere classifiedMyalgi a, other siteLong term (current) use of opiate analgesic 4 Jin Summers. [address], [place], [place], [id number], [place]. tel:[phone] Referring Provider: George Zurita, [address] [place] [address] [place], [address] . tel:[phone] OFFICE/OUTPAT IENT VISIT, [facility], [address] [place] [address], [id number] , [place] tel:[phone] [facility] low back pain (chief complaint) Chronic pain syndromePostlami nectomy syndrome, not elsewhere classifiedMyalgi a, other siteLong term (current) use of opiate analgesicBody mass index [BMI]30.0-30.9, adultEncounter for therapeutic drug level monitoring 4 Andrew Gallardo. [address] [place] [address], [id number], [place]. tel:[phone] Referring Provider: George Zurita, [address] [place] [address] [place], [address] . tel:[phone] [facility], [address] [place] [address], [id number] , [place] tel:[phone] [facility] No Information 4 Jacquelyn Rhoades. [place], [address] [place], [address], [place]. tel:[phone] OFFICE/OUTPAT IENT VISIT, [facility], [address] [place] [address], [id number] , [place] tel:[phone] [facility] low back pain (chief complaint) Chronic pain syndromePostlami nectomy syndrome, not elsewhere classifiedMyalgi a, other siteLong term (current) use of opiate analgesic 4 Leatha Dinero. [address], [place], [place], [id number], [place]. tel:[phone] Referring Provider: George Zurita, [address] [facility] [place], [address] . tel:[phone] OFFICE/OUTPAT IENT VISIT, [facility], [address] [place] [address], [id number] , [place] tel: [phone] [facility] low back pain (chief complaint) Chronic pain syndromePostlami nectomy syndrome, not elsewhere classifiedMyalgi a, other siteLong term (current) use of opiate analgesicEncount er for therapeutic drug level monitoring 4 Vacholo Summers. [address], [place], [place], [id number], [place]. [phone] Referring Provider: George Zurita, [address] [place] [address] [place], [address] . tel:[phone] OFFICE/OUTPAT IENT VISIT, [facility], [address] [place] [address], [id number] , [place] tel: [phone] [facility] bilateral hip pain (chief complaint) Chronic migraine without aura, intractable, without status migrainosusChron ic pain syndromeTrochant jatin bursitis, right hipMyalgia, other sitePostlaminect asuncion syndrome, not elsewhere classifiedLong term (current) use of opiate analgesicEncount er for therapeutic drug level monitoring 3 Jacquelyn Rhoades. [place], [address] [place], [address], [place]. [phone] Referring Provider: George Zurita, [address] [place] [address] [place], [address] . tel:[phone] [facility], [address] [place] [address], [id number] , [place] tel: [phone] [facility] No Information 3 Jacquelyn Rhoades. [place], [address] [place], [address], [place]. [phone] Referring Provider: George Zurita, [address] [place] [address] [place], [address] . tel:[phone] [facility], [address] [place], [id number] , [place] tel:[phone] [facility] No Information [address] [facility] [place], [id number], [place]. [phone] OFFICE VISIT, EST TELEMEDICINE [facility], [address] [place] [address] [place], [place], [id number] , [place] tel:[phone] [facility] bilateral hip pain (chief complaint) Chronic migraine without aura, intractable, without status migrainosusChron ic pain syndromeTrochant jatin bursitis, right hipMyalgia, other sitePostlaminect asuncion syndrome, not elsewhere classifiedLong term (current) use of opiate analgesic 3 Jacquelyn Hutson [place], [address] [place], [address], [place]. tel:[phone] Referring Provider: George Zurita, [address] [place] [address] [place], [address] . tel:[phone] OFFICE VISIT, EST TELEMEDICINE [facility], [address] [place] [address], [id number] , [place] tel:[phone] [facility] bilateral hip pain (chief complaint) Chronic migraine without aura, intractable, without status migrainosusChron ic pain syndromeTrochant jatin bursitis, right hipMyalgia, other sitePostlaminect asuncion syndrome, not elsewhere classifiedLong term (current) use of opiate analgesic 3 Jacquelyn Hutson [place], [address] [place], [address], [place]. tel:[phone] Referring Provider: George Zurita, [address] [place] [address] [place], [address] . tel:[phone] [facility], [address] [place] [address], [id number] , [place] tel:[phone] [facility] No Information 3 Jacquelyn Hutson [place], [address] [place], [place], [facility], [place]. tel:[phone] OFFICE/OUTPAT IENT VISIT, [facility], [address] [place] [address], [id number] , [place] [phone] [facility] bilateral hip pain (chief complaint) Chronic migraine without aura, intractable, without status migrainosusChron ic pain syndromeTrochant jatin bursitis, right hipMyalgia, other sitePostlaminect asuncion syndrome, not elsewhere classifiedLong term (current) use of opiate analgesicEncount er for therapeutic drug level monitoringEncoun ter for screening for other disorder 3 Jacquelyn Hutson [place], [address] [place], [place], [facility], [place]. tel:[phone] Referring Provider: George Zurita, [address] [place], [place] [address], [address] . tel:[phone] OFFICE VISIT, [facility], [address] [place] [address], [id number] , [place] tel:[phone] [facility] Hip pain (chief complaint) Chronic migraine without aura, intractable, without status migrainosusChron ic pain syndromeTrochant jatin bursitis, right hipMyalgia, other sitePostlaminect asuncion syndrome, not elsewhere classifiedLong term (current) use of opiate analgesic 2 Tigre Velasquez. [address], [place], [place], [id number], [place]. tel:[phone] Referring Provider: George Zurita, [address] [place], [place] [address], [address] . tel:[phone] OFFICE VISIT, [facility], [address] [place] [address], [id number] , [place] tel:[phone] [facility] bilateral hip pain (chief complaint) Chronic migraine without aura, intractable, without status migrainosusChron ic pain syndromeTrochant jatin bursitis, right hipMyalgia, other sitePostlaminect asuncion syndrome, not elsewhere classifiedLong term (current) use of opiate analgesic Nov-1 0- 2 Tigre Velasquez. [address], [place], [place], [id number], [place]. tel:[phone] Referring Provider: George Zurita, [address] [place], [place] [address], [address] . tel:[phone] [facility], [address] [place] [address], [id number] , [place] tel:[phone] [facility] No Information Sep-0 2 Jacquelyn [place], [address] [place], [address], [place]. [phone] OFFICE/OUTPAT IENT VISIT, [facility], [address] [place] [address], [id number] , [place] tel:[phone] [facility] bilateral hip pain (chief complaint) Chronic migraine without aura, intractable, without status migrainosusChron ic pain syndromeTrochant jatin bursitis, right hipMyalgia, other sitePostlaminect asuncion syndrome, not elsewhere classifiedLong term (current) use of opiate analgesic Sep-0 2 Jacquelyn [place], [address] [facility], [place], [address], [place]. [phone] Referring Provider: George Zurita, [address] [facility] [place], [address] . tel:[phone] OFFICE VISIT, EST TELEMEDICINE [facility], [address] [place] [address], [id number] , [place] tel:[phone] [facility] Hip Pain (chief complaint) Chronic migraine without aura, intractable, without status migrainosusChron ic pain syndromeTrochant jatin bursitis, right hipMyalgia, other sitePostlaminect asuncion syndrome, not elsewhere classifiedLong term (current) use of opiate analgesic Mar-2 2 Jacquelyn Suggs, [address] [place], [address], [place]. tel:[phone] [facility], [address] [place] [address], [id number] , [place] tel: [phone] [facility] Chronic migraine without aura, intractable, without status migrainosus 2 Valladaresgreg [place], [address] [facility], [place], [address], [place]. tel: [phone] Referring Provider: George Zurita, [address] [place], [place] [address], [place], [address] . tel:[phone] OFFICE VISIT, [facility] TELEMEDICINE [facility], [address] [place] [address], [id number] , [place] tel: [phone] [facility] Hip Pain (chief complaint) Chronic pain syndromePostlami nectomy syndrome, not elsewhere classifiedTrocha nteric bursitis, right hipLong term (current) use of opiate analgesicChronic migraine without aura, intractable, without status migrainosusMyalg ia, other site 2 Valladaresgreg [place], [address] [facility], [place], [address], [place]. tel:[phone] OFFICE VISIT, EST TELEMEDICINE [facility], [address] [place] [address], [id number] , [place] tel: [phone] [facility] bilateral hip pain (chief complaint) Chronic pain syndromePostlami nectomy syndrome, not elsewhere classifiedTrocha nteric bursitis, right hipLong term (current) use of opiate analgesicChronic migraine without aura, intractable, without status migrainosusMyalg ia, other site 1 Valladaresgreg [place], [address], [place], [address], [place]. tel:[phone] [facility], [address] [place] [address], [id number] , [place] tel: [phone] [facility] Chronic migraine without aura, intractable, without status migrainosus 1 Jacquelyn Suggs, [address] [place], [address], [place]. tel:[phone] Referring Provider: George Zurita, [address] [place] [address] [place], [address] . tel:[phone] OFFICE VISIT, [facility] TELEMEDICINE [facility], [address] [place] [address], [id number] , [place] tel:[phone] [facility] bilateral hip pain (chief complaint) Chronic pain syndromePostlami nectomy syndrome, not elsewhere classifiedTrocha nteric bursitis, right hipLong term (current) use of opiate analgesicChronic migraine without aura, intractable, without status migrainosusMyalg ia, other site 1 Valladaresgreg Rhoades. [place], [address] [place], [address], [place]. tel:[phone] OFFICE VISIT, EST [facility], [address] [place] [address], [id number] , [place] tel:[phone] [facility] Leg Pain (chief complaint) Chronic pain syndromePostlami nectomy syndrome, not elsewhere classifiedTrocha nteric bursitis, right hipLong term (current) use of opiate analgesicChronic migraine without aura, intractable, without status migrainosusMyalg ia, other site 1 Jacquelyn Rhoades. [place], [address] [place], [address], [place]. [phone] Referring Provider: George Zurita, [address] [place], [place] [address], [address] . tel:[phone] [facility], [address] [place] [address], [id number] , [place] [phone] [facility] Postlaminectomy syndrome, not elsewhere classified 1 Jacquelyn Hutson [place], [address] [place], [address], [place]. [phone] Referring Provider: George Zurita, [address] [place] [address] [place], [address] . tel:[phone] OFFICE/OUTPAT IENT VISIT, [facility], [address] [place] [address], [id number] , [place] [phone] [facility] right leg pain (chief complaint) Postlaminectomy syndrome, not elsewhere classifiedChroni c pain syndromeTrochant jatin bursitis, right hipLong term (current) use of opiate analgesicChronic migraine without aura, intractable, without status migrainosusMyalg ia, other site 1 Jacquelyn Hutosn [place], [address] [place], [address], [place]. tel:[phone] Referring Provider: George Zurita, [address] [place], [place] [address], [address] . tel:[phone] [facility], [address] [place] [address], [id number] , [place] [phone] [facility] Chronic migraine without aura, intractable, without status migrainosus 1 Jacquelyn Hutson [place], [address] [place], [address], [place]. tel:[phone] Referring Provider: George Zurita, [address] [place], [place] [address], [address] . tel:[phone] OFFICE VISIT, [facility] TELEMEDICINE [facility], [address] [place], [place], [id number] , [place] [phone] [facility] Leg Pain (chief complaint) Postlaminectomy syndrome, not elsewhere classifiedChroni c pain syndromeTrochant jatin bursitis, right hipLong term (current) use of opiate analgesicChronic migraine without aura, intractable, without status migrainosusMyalg ia, other site 1 Jacquelyn Hutson [place], [address] [place], [address], [place]. tel:[phone] Referring Provider: George Zurita, [address] [facility] [place], [address] . tel:[phone] OFFICE/OUTPAT IENT VISIT, [facility], [address] [place] [address], [id number] , [place] tel: [phone] [facility] Leg Pain (chief complaint) Postlaminectomy syndrome, not elsewhere classifiedChroni c pain syndromeTrochant jatin bursitis, right hipLong term (current) use of opiate analgesicChronic migraine without aura, intractable, without status migrainosusMyalg ia, other site 1 Valladares Jf. [place], [address] [place], [address], [place]. tel:[phone] Referring Provider: George Zurita, [address] [place], [place] [address], [address] . tel:[phone] OFFICE VISIT, [facility] TELEMEDICINE [facility], [address] [place] [address], [id number] , [place] tel: [phone] [facility] Leg Pain (chief complaint) Chronic migraine without aura, intractable, without status migrainosusMyalg ia, other sitePostlaminect asuncion syndrome, not elsewhere classifiedChroni c pain syndromeTrochant jatin bursitis, right hipLong term (current) use of opiate analgesic Dec- 1 Valladares Jf. [place], [address] [place], [address], [place]. tel:[phone] Referring Provider: George Zurita, [address] [place], [place] [address], [address] . tel:[phone] [facility], [address] [place] [address], [id number] , [place] [phone] [facility] Chronic migraine without aura, intractable, without status migrainosus Apr-0 1 Valladares Jf. [place], [address] [place], [address], [place]. tel:[phone] Referring Provider: George Zurita, [address] [place] [address] [place], [address] . tel:[phone] OFFICE VISIT, [facility], [address] [place], [place], [id number] , [place] tel:[phone] [facility] Leg Pain (chief complaint) Chronic migraine without aura, intractable, without status migrainosusMyalg ia, other sitePostlaminect asuncion syndrome, not elsewhere classifiedTrocha nteric bursitis, right hipChronic pain syndromeLong term (current) use of opiate analgesic 1 Jacquelyn Hutson [place], [address] [place], [address], [place]. tel:[phone] Referring Provider: George Zurita, [address] [place], [place] [address], [address] . tel:[phone] OFFICE VISIT, [facility], [address] [place] [address], [id number] , [place] tel:[phone] [facility] Leg Pain (chief complaint) Chronic migraine without aura, intractable, without status migrainosusMyalg ia, other sitePostlaminect asuncion syndrome, not elsewhere classifiedTrocha nteric bursitis, right hipChronic pain syndromeLong term (current) use of opiate analgesic 1 Jacquelyn [place], [address] [place], [address], [place]. tel:[phone] Referring Provider: George Zurita, [address] [facility], [address] . tel:[phone] OFFICE/OUTPAT IENT VISIT, [facility], [address] [place] [address], [id number] , [place] [phone] [facility] Leg Pain (chief complaint) Chronic migraine without aura, intractable, without status migrainosusMyalg ia, other sitePostlaminect asuncion syndrome, not elsewhere classifiedTrocha nteric bursitis, right hipChronic pain syndromeLong term (current) use of opiate analgesic 1 Jacquelyn Hutson [place], [address] [place], [address], [place]. tel:[phone] Referring Provider: George Zurita, [address] [place] [address] [place], [address] . tel:[phone] OFFICE VISIT, [facility] TELEMEDICINE [facility], [address] [place] [address], [id number] , [place] [phone] [facility] Leg Pain (chief complaint) Chronic migraine without aura, intractable, without status migrainosusMyalg ia, other sitePostlaminect asuncion syndrome, not elsewhere classifiedTrocha nteric bursitis, right hipChronic pain syndromeLong term (current) use of opiate analgesic 1 Jacquelyn Rhoades. [place], [address] [place], [address], [place]. tel:[phone] Referring Provider: George Zurita, [address] [place] [address] [place], [address] . tel:[phone] [facility], [address] [place] [address], [id number] , [place] [phone] [facility] No Information 1 Jacquelyn Rhoades. [place], [address] [place], [address], [place]. tel:[phone] Referring Provider: George Zurita, [address] [place] [address] [place], [address] . tel:[phone] [facility], [address] [place] [address], [id number] , [place] [phone] [facility] Chronic migraine without aura, intractable, without status migrainosus 1 Jacquelyn Hutson [place], [address] [place], [address], [place]. tel:[phone] Referring Provider: George Zurita, [address] [place] [address] [place], [address] . tel:[phone] OFFICE VISIT, EST TELEMEDICINE [facility], [address] [place], [place], [id number] , [place] tel: [phone] [facility] [place] Leg Pain (chief complaint) Myalgia, other siteChronic migraine without aura, intractable, without status migrainosusPostl aminectomy syndrome, not elsewhere classifiedChroni c pain syndromeTrochant jatin bursitis, right hipLong term (current) use of opiate analgesic Dec-3 0- 0 Jacquelyn [place], [address] [place], [address], [place]. [phone] Referring Provider: George Zurita, [address] [place], [place] [address], [address] . tel:[phone] OFFICE VISIT, [facility], [address] [place] [address], [id number] , [place] tel:[phone] [facility] [place] Leg Pain (chief complaint) Myalgia, other siteChronic migraine without aura, intractable, without status migrainosusPostl aminectomy syndrome, not elsewhere classifiedChroni c pain syndromeTrochant jatin bursitis, right hipLong term (current) use of opiate analgesic Nov-2 0 0 Jacquelyn Suggs, [address] [place], [address], [place]. [phone] Referring Provider: George Zurita, [address] [place], [place] [address], [address] . tel:[phone] OFFICE VISIT, EST TELEMEDICINE [facility], [address] [place] [address], [id number] , [place] tel:[phone] [facility] Leg Pain (chief complaint) Chronic migraine without aura, intractable, without status migrainosusPostl aminectomy syndrome, not elsewhere classifiedChroni c pain syndromeTrochant jatin bursitis, right hipLong term (current) use of opiate analgesicMyalgia , other site Oct- 0 Jacquelyn Suggs, [address] [place], [address], [place]. tel:[phone] Referring Provider: George Zurita, [address] [place], [place] [address], [address] . tel:[phone] [facility], [address] [place] [address], [id number] , [place] tel:[phone] [facility] Chronic migraine without aura, intractable, without status migrainosus 0 Jacquelyn [place], [address] [place], [address], [place]. tel:[phone] Referring Provider: George Zurita, [address] [place], [place] [address], [address] . tel:[phone] OFFICE VISIT, [facility] TELEMEDICINE [facility], [address] [place] [address], [id number] , [place] [phone] [facility] Leg Pain (chief complaint) Chronic migraine w/o aura, intractable, w/o stat migrPostlaminect asuncion syndrome, not elsewhere classifiedChroni c pain syndromeTrochant jatin bursitis, right hipLong term (current) use of opiate analgesicMyalgia , other site 0 Jacquelyn Suggs, [address] [place], [address], [place]. tel:[phone] Referring Provider: George Zurita, [address] [place], [place] [address], [address] . tel:[phone] OFFICE/OUTPAT IENT VISIT, [facility], [address] [place] [address], [id number] , [place] [phone] [facility] Leg Pain (chief complaint) Chronic migraine w/o aura, intractable, w/o stat migrPostlaminect asuncion syndrome, not elsewhere classifiedChroni c pain syndromeTrochant jatin bursitis, right hipLong term (current) use of opiate analgesicMyalgia , other site 0 Jacquelyn [place], [address] [place], [address], [place]. tel:[phone] Referring Provider: George Zurita, [address] [place], [place] [address], [address] . tel:[phone] OFFICE VISIT, [facility] TELEMEDICINE [facility], [address] [place] [address], [id number] , [place] [phone] [facility] Leg Pain (chief complaint) Chronic migraine w/o aura, intractable, w/o stat migrPostlaminect asuncion syndrome, not elsewhere classifiedChroni c pain syndromeTrochant jatin bursitis, right hipLong term (current) use of opiate analgesic Apr- 0 Valladares Dan. [place], [address] [place], [address], [place]. tel:[phone] Referring Provider: George Zurita, [address] [place], [place] [address], [address] . tel:[phone] OFFICE VISIT, [facility] TELEMEDICINE [facility], [address] [place] [address], [id number] , [place] [phone] [facility]) Chronic migraine w/o aura, intractable, w/o stat migrPostlaminect asuncion syndrome, not elsewhere classifiedChroni c pain syndromeTrochant jatin bursitis, right hipLong term (current) use of opiate analgesic 0 Jacquelyn [place], [address] [place], [address], [place]. tel:[phone] Referring Provider: George Zurita, [address] [place], [place] [address], [address] . tel:[phone] [facility], [address] [place] [address], [id number] , [place] tel:[phone] [facility] Chronic migraine w/o aura, intractable, w/o stat migr Dell- 0 Valladaresgreg Hutson [place], [address] [place], [address], [place]. tel:[phone] Referring Provider: George Zurita, [address] [place] [address] [facility] [place], [address] . tel:[phone] OFFICE/OUTPAT IENT VISIT, [facility], [address] [place] [address], [id number] , tel:[phone] [facility] Leg Pain (chief complaint) Postlaminectomy syndrome, not elsewhere classifiedTrocha nteric bursitis, right hipChronic migraine w/o aura, intractable, w/o stat migrLong term (current) use of opiate analgesicChronic pain syndromeMyalgia, other site 0 Jacquelyn [place], [address] [place], [address], [place]. tel:[phone] Referring Provider: George Zurita, [address] [place] [address] [place], [address] . tel:[phone] OFFICE VISIT, [facility], [address] [place] [address], [id number] , [place] tel:[phone] [facility] Leg Pain (chief complaint) headache (chief complaint) Postlaminectomy syndrome, not elsewhere classifiedTrocha nteric bursitis, right hipChronic migraine w/o aura, intractable, w/o stat migrLong term (current) use of opiate analgesic 0 Jacquelyn Suggs, [address] [place], [address], [place]. tel:[phone] Referring Provider: George Zurita, [address] [place] [address] [facility] [place], [address] . tel:[phone] OFFICE VISIT, [facility], [address] [place] [address], [id number] , [place] tel:[phone] [facility] Leg Pain (chief complaint) Postlaminectomy syndrome, not elsewhere classifiedTrocha nteric bursitis, right hipChronic migraine w/o aura, intractable, w/o stat migrLong term (current) use of opiate analgesic 0 Jacquelyn Suggs, [address] [facility], [place], [address], [place]. [phone] Referring Provider: George Zurita, [address] [place] [address] [place], [address] . tel:[phone] OFFICE VISIT, [facility] TELEMEDICINE [facility], [address] [place] [address], [id number] , [place] tel:[phone] [facility] Leg Pain (chief complaint) Postlaminectomy syndrome, not elsewhere classifiedTrocha nteric bursitis, right hipChronic migraine w/o aura, intractable, w/o stat migrLong term (current) use of opiate analgesic Mar-3 0- 0 Jacquelyn [place], [address] [place], [address], [place]. tel:[phone] Referring Provider: George Zurita, [address] [place] [address] [place], [address] . tel:[phone] [facility], [address] [place] [address], [id number] , [place] tel:[phone] [facility] No Information 0 Glenys Mcfarlane. [facility], [address] [facility] [address] [facility] [address], [place], [address], [place]. tel:[phone] Referring Provider: George Zurita, [address] [place] [address] [place], [address] . tel:[phone] OFFICE/OUTPAT IENT VISIT, [facility], [address] [place] [address], [id number] , [place] [phone] [facility] Leg Pain (chief complaint) superintendent [employer] (current) use of opiate analgesicPostlam inectomy syndrome, not elsewhere classifiedTrocha nteric bursitis, right hipChronic migraine w/o aura, intractable, w/o stat migr Feb-0 0 Jacquelyn [place], [address] [facility], [place], [address], [place]. tel:[phone] Referring Provider: George Zurita, [address] [place] [address] [place], [address] . tel:[phone] [facility], [address] [place] [address], [id number] , tel:[phone] [facility] Chronic migraine w/o aura, intractable, w/o stat migr Dec-3 0-201 9 Valladares JfKodi [place], [address] [place], [place], [facility], [place]. [phone] Referring Provider: George Zurita, [address] [place] [address] [place], [address] . tel:[phone] OFFICE/OUTPAT IENT VISIT, [facility], [address] [place] [address], [id number] , [place] tel: [phone] [facility] Leg Pain (chief complaint) FDC (current) use of opiate analgesicPostlam inectomy syndrome, not elsewhere classifiedTrocha nteric bursitis, right hipChronic migraine w/o aura, intractable, w/o stat migr Dec-0 2-201 9 Valladares Jf. [place], [address] [place], [place], [facility], [place]. [phone] Referring Provider: George Zurita, [address] [place] [address] [place], [address] . tel:[phone] OFFICE/OUTPAT IENT VISIT, [facility], [address] [place] [address], [id number] , [place] tel:[phone] [facility] Leg Pain (chief complaint) FDC (current) use of opiate analgesicPostlam inectomy syndrome, not elsewhere classifiedTrocha nteric bursitis, right hipChronic migraine w/o aura, intractable, w/o stat migr Nov-0 6-201 9 Valladares Jf. [place], [address] [place], [place], [facility], [place]. [phone] Referring Provider: George Zurita, [address] [place] [address] [place], [address] . tel:[phone] OFFICE/OUTPAT IENT VISIT, [facility], [address] [place] [address] [place], [id number] , [place] tel:[phone] [facility] Leg Pain (chief complaint) Chronic pain syndromeChronic migraine w/o aura, intractable, w/o stat migrTrochanteric bursitis, right hipPostlaminecto my syndrome, not elsewhere classifiedLong term (current) use of opiate analgesic Oct- 0-201 9 Valladares Jf. [place], [address] [place], [address], [place]. [phone] Referring Provider: George Zurita, [address] [place] [address] [place], [address] . tel:[phone] [facility], [address] [place] [address], [id number] , [place] [phone] [facility] Chronic migraine w/o aura, intractable, w/o stat migr Sep-2 3-201 9 Valladares Jf. [place], [address] [place], [address], [place]. tel:[phone] Referring Provider: George Zurita, [address] [place] [address] [place], [address] . tel:[phone] [facility], [address] [place] [address], [id number] , [place] [phone] [facility] No Information Sep-0 9-201 9 Glenys Mcfarlane. [facility], [address] [facility] [address] [facility] [address], [place], [address], [place]. tel:[phone] Referring Provider: George Zurita, [address] [place] [address] [place], [address] . tel:[phone] OFFICE/OUTPAT IENT VISIT, [facility], [address] [place] [address] [place], [id number] , [place] tel:[phone] [facility] [place] Leg Pain (chief complaint) Chronic pain syndromeTrochant jatin bursitis, right hipChronic migraine w/o aura, intractable, w/o stat migrPostlaminect asuncion syndrome, not elsewhere classifiedLong term (current) use of opiate analgesic 9 Jacquelyn Rhoades. [place], [address] [facility], [place], [address], [place]. tel:[phone] Referring Provider: George Zurita, [address] [place], [address] . tel:[phone] [facility], [address] [place], [place], [id number] , [place] [phone] [facility] Leg Pain (chief complaint) Chronic pain syndromeTrochant jatin bursitis, right hipChronic migraine w/o aura, intractable, w/o stat migrPostlaminect ausncion syndrome, not elsewhere classifiedEncoun ter for therapeutic drug level monitoringLong term (current) use of opiate analgesic 9 Veronica Denys. [place] [facility], [address] [facility] [address], [place], [address], [place]. tel:[phone] Referring Provider: Tan Chapa, [facility] [address], [place], [address]. tel:[phone] Family History Family Member Type Diagnosis Age At Onset Father Problem (finding) back pain Payers Payer name Insurance type Covered constitution party ID Maegan osborn(s) [facility] [id number] Social History Type Description Quantity Date Captured Comments Alcohol Use Details Unknown Caffeine Use Details Unknown Tobacco Use Status Smoking Status No Information Sex Female Chief Complaint And Reason For Visit No Information Reason For Referral Reason For Referral No Information Plan Of Treatment Date Type Action Status Goal UDT. Due on due Goal Order Annual PT. Due on due Goal DIRECTOR AUTOMOTIVE Scanned. Due on due Goal OARS. Due on due Goal ALT (SGPT). Due on due Goal AST (SGOT). Due on due Goal Creatinine. Due on due Goal ASSET PROTECTION LEAD Paperwork. Due on due Goal Weight. Due [...] due Goal UDT. Due on due Goal DIRECTOR AUTOMOTIVE Scanned. Due on due Goal OARS. Due on due Goal Creatinine. Due on due Goal AST (SGOT). Due on due Goal ALT (SGPT). Due on due Goal ASSET PROTECTION LEAD Paperwork. Due on due Goal Order Annual [...] u se screening. Due on due Goal ASSET PROTECTION LEAD Paperwork. Due on due Goal AST (SGOT). Due on due Goal Creatinine. Due on due Goal OARS. Due on due Goal UDT. Due on due Goal Order Annual PT. Due on due Goal ALT (SGPT). Due on due Goal DIRECTOR AUTOMOTIVE Scanned. Due on due Goal Height. Due [...] ue Goal Creatinine. Due on due Goal DIRECTOR AUTOMOTIVE Scanned. Due on due Goal UDT. Due on due Goal Order Annual PT. Due on due Goal OARS. Due on due Goal AST (SGOT). Due on due Goal ASSET PROTECTION LEAD Paperwork. Due on due Goal ALT (SGPT). [...] Order Annual PT. Due on due Goal DIRECTOR AUTOMOTIVE Scanned. Due on due Goal ASSET PROTECTION LEAD Paperwork. Due on due Goal AST (SGOT). [...] Goal ALT (SGPT). Due on due Goal ASSET PROTECTION LEAD Paperwork. Due on due Goal UDT. Due on due Goal DIRECTOR AUTOMOTIVE Scanned. Due on due Goal AST (SGOT). [...] Goal AST (SGOT). Due on due Goal DIRECTOR AUTOMOTIVE Scanned. Due on due Goal OARS. Due on due Goal Creatinine. Due on due Goal ASSET PROTECTION LEAD Paperwork. Due on due Goal Tobacco Use. [...] due Goal UDT. Due on due Goal ASSET PROTECTION LEAD Paperwork. Due on due Goal AST (SGOT). Due on due Goal Order Annual PT. Due on due Goal OARS. Due on due Goal ALT (SGPT). Due on due Goal DIRECTOR AUTOMOTIVE Scanned. Due on due Goal Creatinine. Due [...] Order Annual PT. Due on due Goal ASSET PROTECTION LEAD Paperwork. Due on due Goal AST (SGOT). Due on due Goal DIRECTOR AUTOMOTIVE Scanned. Due on due Goal UDT. Due [...] Goal Weight. Due on d ue Goal DIRECTOR AUTOMOTIVE Scanned. Due on 020 due Goal Order Annual PT. Due on due Goal Creatinine. Due on due Goal AST (SGOT). Due on due Goal OARS. Due on due Goal UDT. Due on due Goal ALT (SGPT). Due on due Goal ASSET PROTECTION LEAD Paperwork. Due on due Goal Medication Recon [...] due Goal Creatinine. Due on due Goal ASSET PROTECTION LEAD Paperwork. Due on due Goal UDT. Due on due Goal DIRECTOR AUTOMOTIVE Scanned. Due on due Goal OARS. Due [...] due Goal UDT. Due on due Goal ASSET PROTECTION LEAD Paperwork. Due on due Goal DIRECTOR AUTOMOTIVE Scanned. Due on [address]-Colonography. [...] Goal Tobacco Use. Due on due Goal ASSET PROTECTION LEAD Paperwork. Due on due Goal ALT (SGPT). Due on due Goal Order Annual PT. Due on due Goal OARS. Due on due Goal Creatinine. Due on due Goal UDT. Due on due Goal AST (SGOT). Due on due Goal DIRECTOR AUTOMOTIVE Scanned. Due on due Goal Zoster vaccine [...] Goal ALT (SGPT). Due on due Goal ASSET PROTECTION LEAD Paperwork. Due on due Goal Creatinine. Due on due Goal OARS. Due on due Goal DIRECTOR AUTOMOTIVE Scanned. Due on due Goal AST (SGOT). [...] due Goal OARS. Due on due Goal DIRECTOR AUTOMOTIVE Scanned. Due on due Goal ASSET PROTECTION LEAD Paperwork. Due on due Goal Tobacco Use. [...] Goal PHQ-9. Due on du e Goal DIRECTOR AUTOMOTIVE Scanned. Due on due Goal UDT. Due on due Goal Order Annual PT. Due on due Goal ASSET PROTECTION LEAD Paperwork. Due on due Goal ALT (SGPT). [...] Order Annual PT. Due on due Goal DIRECTOR AUTOMOTIVE Scanned. Due on due Goal AST (SGOT). Due on due Goal ASSET PROTECTION LEAD Paperwork. Due on due Goal Creatinine. Due [...] Order Annual PT. Due on due Goal DIRECTOR AUTOMOTIVE Scanned. Due on 020 due Goal AST (SGOT). Due on due Goal ASSET PROTECTION LEAD Paperwork. Due on due Goal Creatinine. Due [...] Order Annual PT. Due on due Goal DIRECTOR AUTOMOTIVE Scanned. Due on due Goal AST (SGOT). Due on due Goal ASSET PROTECTION LEAD Paperwork. Due on due Goal Creatinine. Due [...] Order Annual PT. Due on due Goal DIRECTOR AUTOMOTIVE Scanned. Due on due Goal AST (SGOT). Due on due Goal ASSET PROTECTION LEAD Paperwork. Due on due Goal Creatinine. Due [...] Order Annual PT. Due on due Goal DIRECTOR AUTOMOTIVE Scanned. Due on due Goal AST (SGOT). Due on due Goal ASSET PROTECTION LEAD Paperwork. Due on due Goal Creatinine. Due [...] Order Annual PT. Due on due Goal DIRECTOR AUTOMOTIVE Scanned. Due on due Goal AST (SGOT). Due on due Goal ASSET PROTECTION LEAD Paperwork. Due on due Goal Creatinine. Due [...] Order Annual PT. Due on due Goal DIRECTOR AUTOMOTIVE Scanned. Due on due Goal AST (SGOT). Due on due Goal ASSET PROTECTION LEAD Paperwork. Due on due Goal Creatinine. Due [...] Order Annual PT. Due on due Goal DIRECTOR AUTOMOTIVE Scanned. Due on due Goal AST (SGOT). Due on due Goal ASSET PROTECTION LEAD Paperwork. Due on due Goal Creatinine. Due [...] Order Annual PT. Due on due Goal DIRECTOR AUTOMOTIVE Scanned. Due on due Goal AST (SGOT). Due on due Goal ASSET PROTECTION LEAD Paperwork. Due on due Goal Creatinine. Due [...] Order Annual PT. Due on due Goal DIRECTOR AUTOMOTIVE Scanned. Due on due Goal AST (SGOT). Due on due Goal ASSET PROTECTION LEAD Paperwork. Due on due Goal Creatinine. Due [...] Order Annual PT. Due on due Goal DIRECTOR AUTOMOTIVE Scanned. Due on due Goal AST (SGOT). Due on due Goal ASSET PROTECTION LEAD Paperwork. Due on due Goal Creatinine. Due [...] Order Annual PT. Due on due Goal DIRECTOR AUTOMOTIVE Scanned. Due on due Goal AST (SGOT). Due on due Goal ASSET PROTECTION LEAD Paperwork. Due on due Goal Creatinine. Due on due Goal ALT (SGPT). Due on due Goal UDT. Due on due Goal OARS. Due on due Referral Ordered: Kathy Glover -Family Medicine (related to Chronic migraine w/o aura, intractable, w/o stat migr) ordered Referral Referred To: Kathy Glover [address] [place], [address] [phone] Ordered: Referrals: Family Medicine. Kathy Glover ordered Future Order: Radiology Order XR Hips [employer] Pelvis 2V ([id number]), Sent on: Sent Future Order: Lab Order Drug Kasia t Def 22+ Classes ([id number]), Ordered on: Ordered Future Order: Lab Order COMPLIAN CE DRUG ANALYSIS, URINE, WITH MED REPORT ([id number]), Ordered on: Ordered Future Order: Lab Order [...] allowing for increased functionality. Continues to use [place] 5/325 sparingly. Presents on track today. No [...] interested at this time. Continues to use [place] sparingly. Presents with a surplus. Also utilizes [...] changes to her pain. Continues to use [place] sparingly. No other concerns today. low back [...] changes to her pain. Continues to use [place] sparingly. 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 Notes she was trying to vacuum the [...] she is enjoying her new job at [employer] in [place]. She will be switching insurances at the [...] other concerns today. bilateral hip pain Duration technical coordinator christine. The problem is worsening. The pain [...] other concerns today. bilateral hip pain Duration technical coordinator christine. The problem is worsening. It occurs [...] RADHA provided significant benefit.Completed Botox at [facility] in [place] on 09/26/22.Current medication regimen provides 75% pain relief and allows increased functionality. Presents on track with prescribed medication. Will hold off on starting Qulipta and Ubrelvy for now. Denies side effects from current medication regimen. No other concerns today. bilateral hip pain Severity leve l is mild. Duration chronic. The problem is worsening. It occurs constantly. Location of pain is bilateral. bilateral hip pain Duration technical coordinator christine. Location of pain is bilateral. Pertinent [...] 09/30/22 while out shoveling.Completed Botox at [facility] in [place] on 09/26/22.Requests provider to check her back [...] pain level.Scheduled to have Botox at [facility] in [place] on 09/26/22.Current medication regimen provides 85% pain [...] other concerns today. bilateral hip pain Duration technical coordinator christine. The problem is worsening. It occurs [...] States she has a consult scheduled with [facility] and is hopeful they [...] not yet established with neurology and requests [facility] to do one last Botox [...] stable since last OV. 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 Current medication provides [...] more than 3 months. 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 [...] mother back and forth from the [facility] which has aggravated her pain. Notes that she had TPIs on 01/2021 which were very beneficial for her hip and is requesting to repeat them today.Reports current medication regimen provides >50% pain relief and allows for increased functionality. Denies side effects from current medication regimen. Requests a refill of her [place] which she uses sparingly.Patient is not accompanied. [...] [facility] not [facility]. [facility] [...] been occurring since 10/09. She has tried [place], cannabis and Levetiracetam and the migraine is [...] has been helpful. Continues to use her [place] sparingly to maintain her lowest effective dose.Patient [...] is planning on going to the chiropractor [facility]. 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 Continues to utilize [place] 5mg tablets sparingly which has been very [...] and medication refill. She presents with #1 [place]- surplus. Current medication regimen provides 70% relief. Denies side effects from current medication regimen. Pain today is improving s/p Botox injections 06/09/19. States she has only had three migraines since her injections, and was previously having up to 6 migraines per week. Does report recent R rib fx and inquires about a temporary increase in her [place] dose as she recovers.Patient is not accompanied [...] SI joint injections, previously completed at [facility], to [facility] in the future. Patient is [...] the end of the day.Underwent PT at [facility] in 2016 and [facility] in 2019-- helpful. Completed LESI with [facility]--helpful for 5 months. Reports previous imaging at [facility] and [facility]. Currently managed on Lyrica 150mg 3 tabs nightly. Has also trialed and failed Gabapentin, Cymbalta, codeine, and oxycodone for additional pain relief. Previously following with PCP regarding hydrocodone 5/325mg for PRN use which effectively controls her RLE pain and chronic migraines.Yenni is interested in medication management and would like [facility] to assume management of pain [...]
--- OUTSIDE RECORDS SUMMARY | 2025-04-03 06:43 | XMS_ITS | Patient Health Record ---
Author Organization [facility] Address [address] [place] [address] Care Team Providers Care Community Health Navigator Name Role Phone MelisatylerKathy perez Primary Care Provider KARISSA Velasquez Unavailable [phone] Allergies Allergen (clinical drug ingredient) Drug/Non Drug Allergy documented on EMR Reaction Allergy Type Onset Date Status metronidazole Flagyl Unknown Drug Allergy Act danie Adhesive Bandages Unknown Drug Allergy Active Reason For Referral No Information Medications Medication SIG (Take, Route, Frequency, Duration) Notes Start Date End Date Status Metoprolol Succinate ER Active Tdwtgzpywfrfp-Ltqeuazrf-BXIY Active HYDROcodone-Acetaminophen Active Calcium Active Vitamin D3 [...] Status W/U Status Risk Notes Problem Mass of neck (987850239) Mass in neck (R22.1) Active confirmed Plan Of Treatment No Information Insurance Providers Payer Name Payer Address Payer Phone Subscriber Number Group Number Insured Name Patient Relationship to Insured Coverage Start Date Coverage End Date PREFERRED ONE [address] [place], [place] [id number] Yenni Dyson Self - patient is the insured Medical (General) History Medical History History ICD Code Sleep apnea Easy bleeding or bruising Surgical History Surgery Date(Month/Year) Back fusion 2017 Tonsilectomy 1975 Appendectomy 1984 Partial hysterectomy 1992
--- OUTSIDE RECORDS SUMMARY | 2025-04-03 06:43 | XMS_ITS | Encounter Summary ---
Author Organization [place] Address [address] [facility] [place] [address] Care Team Providers Care Medical Office Representative Name Role Phone Kathy Glover MD Primary Care Provider Toma Arguello NP Unavailable [phone] Kathy Glover MD Unavailable [phone] Kathy Glover MD Unavailable [phone] Laura Us MD Unavailable Luh Acharya PA-C Unavailable [phone] Kathy Glover MD Unavailable [phone] Luh Acharya PA-C Unavailable +[phone] Edward Marlow MD Unavailable [facility] Primary Care Provider Jas Bojorquez DO Unavailable [phone] Haven Buckner CNP Unavailable Jenise España MD Unavailable Unavailable Tierra CancinoC Unavailable [phone] Luh Acharya PA-C Primary Care Provider + Luh Acharya-C Unavailable [phone] Tierra Cancinojose guadalupe UDMONT-C Unavailable Haven Buckner CNP Unavailable +[phone] Marck Luh DUMONT-C Unavailable +1- BucknerHaven lofton CNP Unavailable +1- Encounter Details Date Type Department Care Team (Late st Contact Info) Description 02/28/2017 MyC Medical Advice [address] [phone] Marcy Smith RN Social History [...] AM CDT Legal Sex Female 3:41 AM 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 Gender Identity Female 01/18/2019 9:01 AM CDT [...] as of this encounter Care Teams Medical Office Representative Relationship Specialty Start Date End Date Kathy Glover MD [address] [place] [address] [phone] PCP - General Family Practice 06/03/15 10/05/20 Kathy Glover MD [address] [place] [address] PCP - Assigned PCP 07/25/15 11/19/[address] [address] PCP - General 10/06/20 11/20/21 Luh Acharya PA-C [address] [place] [address] PCP - General Family Medicine 11/21/21 01/02/23 Toma Arguello NP [address] 905917 Nurse Practitioner Nurse Practitioner Psych/Mental Health 04/11/17 Kathy Glover MD [address] [place] [address] Assigned PCP 07/25/15 12/20/19 Laura Us MD [address] [place] [address] Gastroenterology 12/20/18 Luh Acharya PA-C [address] [place] [address] Assigned PCP 12/21/19 01/17/20 Kathy Glover MD [address] [place] [address] 80058 Assigned PCP 01/18/20 06/19/20 Luh Acharya PA-C [address] [place] [address] 37918 Assigned PCP 06/20/20 03/31/21 Edward [place] [address] Assigned Surgical Provider 07/09/20 07/31/20 Jas Bojorquez DO [address] [place] [address] 425392 Assigned PCP 04/01/21 05/21/21 Haven Buckner, IRONWORKER HELPER SHOP [address] [place] [address] 412532 Assigned PCP 05/22/21 11/26/21 Jenise España MD Assigned Heart and Vascular Provider 07/24/21 11/17/22 Tierra Cancino PA-C [address] [place] [address] Physician Child Welfare Assistant Urology 11/17/21 Luh Acharya PA-C [address] [place] [address] Assigned PCP 11/27/21 12/31/21 Tierra Cancino PA-C [address] [place] [address] Assigned Surgical Provider 12/11/21 06/08/23 Haven Buckner, IRONWORKER HELPER SHOP [address] [place] [address] Assigned PCP 01/01/22 12/22/22 Luh Acharya PA-C [address] [place] [address], [place] [address] Assigned PCP 12/23/22 05/18/23 Haven Buckner, IRONWORKER HELPER SHOP [address] [place] [address], [place] [address] Assigned PCP 05/19/23 02/05/25 documented as of this encounter
--- OUTSIDE RECORDS SUMMARY | 2025-04-03 06:43 | XMS_ITS | Encounter Summary ---
Author Organization [place] Address [address] [facility] [place] [address] Care Team Providers Care Beef Cattle Grazier Name Role Phone Toma Arguello YESICA Unavailable [phone] Laura Us MD Unavailable Tierra Cancino PA-C Unavailable Luh Acharya PA-C Primary Care Provider + Tierra Cancino PA-C Unavailable Luh Acharya PA-C Unavailable Haven Buckner CNP Unavailable Reason for Visit * Reason Comments Medication Refill Encounter Details Date Type Department Care Team (Late st Contact Info) Description 12/30/[address] [phone] Luh Acharya PA-C [address] [place] [address] [phone] Medication Refill Social History Tobacco Use Types [...] AM CDT Legal Sex Female 3:41 AM 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 Luh Acahrya MBA, MS, PAConsuelo [facility] * Telephone Encounter - Haven Pike [...] be provided Drug does not pass the [facility] refill protocol Thank you! Ellen Lemon RN [facility] Triage documented in this encounter Plan of Treatment Not on file documented as of this encounter Visit Diagnoses Diagnosis Gastroesophageal reflux disease, unspecified whether esophagitis present documented in this encounter Additional Health Concerns Assessment Noted Time PHQ-9 Depression Total Score: 5 10/25/19 22 7:03 AM NURSING OFFICER documented as of this encounter Care Teams Beef Cattle Grazier Relationship Specialty Start Date End Date Luh Acharya PA-C [address] [place] [address] PCP - General Family Medicine 11/21/21 01/02/23 Toma Arguello NP [place] [address] [place] [address] Nurse Practitioner Nurse Practitioner Psych/Mental Health 04/11/17 Laura Us MD [place] [address] [place] [address] Gastroenterology 12/20/18 Tierra Cancino PA-C [address] [place] [address] Physician Manager Actuarial Urology 11/17/21 Tierra Cancino PA-C [address] [place] [address] Assigned Surgical Provider 12/11/21 06/08/23 Luh Acharya PA-C [address] [place] [address] Assigned PCP 12/23/22 05/18/23 Haven Buckner, MEMBERSHIP COUNSELOR [address] [place] [address] Assigned PCP 05/19/23 02/05/25 documented as of this encounter
--- OUTSIDE RECORDS SUMMARY | 2025-04-03 06:43 | XMS_ITS | Encounter Summary ---
Author Organization [place] Address [address] [facility] [address] Care Team Providers Care Pail Tester Name Role Phone Kathy Glover MD Primary Care Provider Toma Arguello NP Unavailable [phone] Kathy Glover MD Unavailable [phone] Kathy Glover MD Unavailable [phone] Laura Us MD Unavailable Luh Acharya PA-C Unavailable [phone] Kathy Glover MD Unavailable [phone] Luh Acharya PA-C Unavailable +[phone] Edward Marlow MD Unavailable [facility] Primary Care Provider Jas Bojorquez DO Unavailable [phone] Haven Buckner CNP Unavailable Jenise España MD Unavailable Unavailable Tierra CancinoC Unavailable Luh Acharya PA-C Primary Care Provider + Luh Acharya-C Unavailable [phone] Tierra Cancinovandana DUMONT-C Unavailable BucknerHaven Meaghan CNP Unavailable [phone] Luh Acharya Enedina DUMONT-C Unavailable [phone] Haven Bucknerlolita RIVERA Unavailable [phone] Reason for Visit * Reason Onset Date Comments MyChart Communication 01/18/2017 referrals Encounter Details Date Type Department Care Team (Late st Contact Info) Description 01/18/2017 MyC Medical Advice [address] [phone] [place] [address] [place] [address] MyChart Communication (referrals) Social History Tobacco [...] AM CDT 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 Sex Female 3:41 AM 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 Gender Identity Female 01/18/2019 9:01 AM CDT [...] documented as of this encounter Care Teams Pail Tester Relationship Specialty Start Date End Date Kathy Glover MD [address] [place] [address] PCP - General Family Practice 06/03/15 10/05/20 Kathy Glover MD [address] [place] [address] [phone] PCP - Assigned PCP 07/25/15 11/19/[address] [phone] PCP - General 10/06/20 11/20/21 Luh Acharya PA-C [address] [place] [address] [phone] PCP - General Family Medicine 11/21/21 01/02/23 Toma Arguello NP [address] 819387 Nurse Practitioner Nurse Practitioner Psych/Mental Health 04/11/17 Kathy Glover MD [address] [place] [address] [phone] Assigned PCP 07/25/15 12/20/19 Laura Us MD [address] [place] [address] 422222 Gastroenterology 12/20/18 Luh Acharya PA-C [address] [place] [address] 747592 Assigned PCP 12/21/19 01/17/20 Kathy Glover MD [address] [place] [address] 157582 Assigned PCP 01/18/20 06/19/20 Luh Acharya PA-C [address] [place] [address] 899032 Assigned PCP 06/20/20 03/31/21 Edward Marlow MD [address] [place] [address] Assigned Surgical Provider 07/09/20 07/31/20 Jas Bojorquez DO [address] [place] [address] [phone] Assigned PCP 04/01/21 05/21/21 Haven Buckner, SUPERVISOR EXTRUDING DEPARTMENT [address] [place] [address] [phone] Assigned PCP 05/22/21 11/26/21 Jenise España MD Assigned Heart and Vascular Provider 07/24/21 11/17/22 Tierra Cancino PA-C [address] [facility] [place] [address] Physician Soaking Room Operator Urology 11/17/21 Luh Acharya PA-C [address] [place] [address], [place] [address] Assigned PCP 11/27/21 12/31/21 Tierra Cancino PA-C [address] [place] [address] Assigned Surgical Provider 12/11/21 06/08/23 Haven Buckner, SUPERVISOR EXTRUDING DEPARTMENT [address] [place] [address], [place] [address] Assigned PCP 01/01/22 12/22/22 Luh Acharya PA-C [address] [place] [address], [place] [address] Assigned PCP 12/23/22 05/18/23 Haven Buckner, SUPERVISOR EXTRUDING DEPARTMENT [address] [place] [address], [place] [address] Assigned PCP 05/19/23 02/05/25 documented as of this encounter
--- OUTSIDE RECORDS SUMMARY | 2025-04-03 06:43 | XMS_ITS | Clinical Summary ---
Author Organization [employer] Address [address] [place] [address] Care Team Providers Care Assistant Family Teacher Name Role Phone Kathy Glover MD Primary Care Provider [phone] Allergies Active Allergy Reactions Criticality Noted Date Comments Ciprofloxacin Itching 07/23/2017 Cipro and flagyl together Metronidazole In Nacl (Iso-Os) Itching 07/23/2017 Cipro and Flagyl together. Medications MULTIVIT,THX,C ALCIUM,IRON,CO NS (THERA PAUL M ORAL) Take 1 [...] 3 PER DAY 0 8 Active Multivits,Ca,M vajzvki-Tqnn-H A (THERA M PLUS, FERROUS FUMARAT,) 9 mg iron-400 mcg tablet Take 1 tablet by mouth. Active omega 9-olg-mgy-fish oil (FISH OIL) 300-1,000 mg cpDR Take 1,000 mg by mouth. Active AFLURIA QUAD [id number], PF, 60 mcg/0.5 mL IM syringe ADM [...] on file Legal Sex Female 6:50 AM INDUSTRIAL TRACTOR DRIVER Gender Identity Not on file Sexual Orientation [...] 11/22/2023, 2023 Medical Devices Implanted Type Area Chief Librarian Extension Department Device Identifier Shelf Expiration Date Model / Serial / Lot Bone Matrix Md Infuse Bmp - [id number] Implanted:Qty: 1 on 07/24/2017 by Danish Sosa MD at [facility] N/A: Spine Medtronic Spine/Ortho 11/14/2018 [id number]# / / [id number] Bone 15cc Allosource Crushed Canclls - [id number] Implanted:Qty: 1 on 07/24/2017 by Danish Sosa MD at [facility] N/A: Spine Allosource 11/21/2020 [id number]# / / [id number] Bone Matrix 5cc Progenix Plus Putty Dbm - [id number] Implanted:Qty: 1 on 07/24/2017 by Danish Sosa MD at [facility] N/A: Spine Medtronic Spine/Ortho 12/27/2018 [id number]# / / [id number] Plate Lmbr [place]-L Stand Alone Lock - [id number] Implanted:Qty: 1 on 07/24/2017 by Danish Sosa MD at [facility] N/A: Spine [place] Spine [id number] 00# / / Screw Lmbr 6x25mm Ancr-L Standalone - [id number] Implanted:Qty: 3 on 07/24/2017 by Danish Sosa MD at [facility] N/A: Spine [place] Spine [id number]# / / Spacer Lmbr [id number] 12deg Avs-L Stand Alone - [id number] Implanted:Qty: 1 on 07/24/2017 by Danish Sosa MD at [facility] N/A: Spine [place] Spine [id number] 62# / / Explanted Type Area Chief Librarian Extension Department Device Identifier Shelf Expiration Date Model / Serial / Lot Hardware Removal Explanted:Qty: 1 on 07/24/2017 by Danish Sosa MD at [facility] N/A: Spine Description:One Piece Spinal Hardware Removed Procedures Procedure Name Priority Date/Time Associated Diagnosis Comments HPV HIGH RISK Routine 11/22/2023 8:06 AM INDUSTRIAL TRACTOR DRIVER from Last 3 Months or Most Recently Relevant to Health Maintenance Results * HPV HIGH RISK (11/22/2023 8:06 AM INDUSTRIAL TRACTOR DRIVER) TYPE 16 Negative Negative 11/26/2023 5:04 PM CDT [facility] TRAL LABORATORY TYPE 18 Negative Negative 11/26/2023 5:04 PM CDT [facility] TRAL LABORATORY OTHER HIGH RISK TYPES Negative Negative 11/26/2023 5:04 PM CDT [facility] TRA LABORATORY Other (Cervical/Vagina l) 11/22/2023 8:06 AM INDUSTRIAL TRACTOR DRIVER 11/23/2023 8:22 AM INDUSTRIAL TRACTOR DRIVER Narrative [facility] - 11/26/2023 5:04 PM CDT HPV types 16, 18, 31, 33, 35, 39, 45, 51, 52, 56, 58, 59, 66 and 68 DNA were undetectable or below the pre-set threshold. Methodology: Duane Fatoumata 4800 HPV Test us Lela Giraldo MD MICROBIOLOGY Final Re sult [facility] [address] [place] [address], from Last 3 Months or Most Recently Relevant to Health Maintenance Advance Directives * Full Code (Latest Code Status on File) Date Activated Date Inactivated Comments 09/27/2018 3:08 PM 09/27/2018 5:47 PM Care Teams Assistant Family Teacher Relationship Specialty Start Date End Date Kathy Glover MD PCP - General Family Practice 09/25/18
--- OUTSIDE RECORDS SUMMARY | 2025-04-03 06:43 | XMS_ITS | Encounter Summary ---
Author Organization [place] Address [address] [facility] [place] [address] Care Team Providers Care Tennis Instructor Name Role Phone Kathy Glover MD Primary Care Provider Toma Arguello NP Unavailable [phone] Kathy Glover MD Unavailable [phone] Kathy Glover MD Unavailable [phone] Laura Us MD Unavailable Luh Acharya PA-C Unavailable [phone] Kathy Glover MD Unavailable [phone] Luh Acharya PA-C Unavailable +[phone] Edward Marlow MD Unavailable [phone] [facility] Primary Care Provider Jas Bojorquez DO Unavailable [phone] Haven Buckner CNP Unavailable Jenise España MD Unavailable Unavailable Tierra CancinoC Unavailable Luh Acharya PA-C Primary Care Provider + Luh Acharya-C Unavailable [phone] Tierra Cancinovandana BAUTISTAC Unavailable BucknerHaven lofton Meaghan CNP Unavailable +-[phone] Luh Acharya Enedina DUMONT-C Unavailable + Sita Haven Harding CNP Unavailable +- Reason for Visit * Reason Onset Date Comments Medication Request 05/23/2016 Encounter Details Date Type Department Care Team (Late st Contact Info) Description 05/23/2016 [facility] Medical Advice [address] [phone] Dona Davidson, tab card press operator Request Social History Tobacco Use Types Packs/Day Years Used Date Smoking Tobacco: Former Cigarettes 1 20 Smokeless Tobacco: Never Alcohol Use Standard Drinks/Week Comments Yes 0 (1 standard drink = 0.6 oz pur e alcohol) 1 glass wine daily Comments No Sex and Gender Information Value Date Recorded Sex Assigned at Female 01/18/2019 9:01 AM CDT 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 Gender Identity Female 01/18/2019 9:01 AM CDT Sexual Orientation Straight 01/18/2019 9: 01 AM CDT documented as of this encounter Miscellaneous Notes * Telephone Encounter - Dona Davidson RN - 06/01/2016 4:28 PM CDT Medication had been sent to Luh Acharya for review and refilled Dona Davidson RN, BSN [facility] documented in this encounter Plan of Treatment [...] documented as of this encounter Care Teams Tennis Instructor Relationship Specialty Start Date End Date Kathy Glover MD [address] [place] [address] PCP - General Family Practice 06/03/15 10/05/20 Kathy Glover MD [address] [place] [address] PCP - Assigned PCP 07/25/15 11/19/[address] [address] PCP - General 10/06/20 11/20/21 Luh Acharya PA-C [address] [place] [address] PCP - General Family Medicine 11/21/21 01/02/23 Toma Arguello NP [address] [address] Nurse Practitioner Nurse Practitioner Psych/Mental Health 04/11/17 Kathy Glover MD [address] [place] [address]83 Assigned PCP 07/25/15 12/20/19 Laura Us MD [address] [place] [address] Gastroenterology 12/20/18 Luh Acharya PA-C [address] [place] [address], [place] [address] Assigned PCP 12/21/19 01/17/20 Kathy Glover MD [address] [place] [address]49 Assigned PCP 01/18/20 06/19/20 Lhu Acharya PA-C [address] [place] [address] 706052 Assigned PCP 06/20/20 03/31/21 [place] [address] Assigned Surgical Provider 07/09/20 07/31/20 Jas Bojorquez DO [address] [place] [address] 307692 Assigned PCP 04/01/21 05/21/21 Haven Buckner, NICOLE [address] [place] [address] 592052 Assigned PCP 05/22/21 11/26/21 Jenise España MD Assigned Heart and Vascular Provider 07/24/21 11/17/22 Tierra Cancino PA-C [address] [place] [address] Physician Hand Paint Mixer Urology 11/17/21 Luh Acharya PA-C [address] [place] [address]45 Assigned PCP 11/27/21 12/31/21 Tierra Cancino PA-C [address] [place] [address] Assigned Surgical Provider 12/11/21 06/08/23 Haven Buckner, FRAUD REPRESENTATIVE [address] [place] [address], [place] [address] Assigned PCP 01/01/22 12/22/22 Luh Acharya PA-C [address] [place] [address], [place] [address] Assigned PCP 12/23/22 05/18/23 Haven Buckner, FRAUD REPRESENTATIVE [address] [place] [address], [place] [address] Assigned PCP 05/19/23 02/05/25 documented as of this encounter
--- OUTSIDE RECORDS SUMMARY | 2025-04-03 06:43 | XMS_ITS | Encounter Summary ---
Author Organization [place] Address [address] [facility] [place] [address] Care Team Providers Care Coating Inspector Name Role Phone Kathy Glover MD Primary Care Provider Toma Arguello NP Unavailable [phone] Kathy Glover MD Unavailable [phone] Kathy Glover MD Unavailable [phone] Laura Us MD Unavailable Luh Acharya PA-C Unavailable [phone] Kathy Glover MD Unavailable [phone] Luh Acharya PA-C Unavailable [phone] Edward Marlow MD Unavailable [facility] Primary Care Provider Jas Bojorquez DO Unavailable [phone] Haven Buckner CNP Unavailable Jenise España MD Unavailable Unavailable Tierra CancinoC Unavailable Luh Acharya PA-C Primary Care Provider + Luh Acharya-C Unavailable [phone] Tierra Cancino MICHELEC Unavailable Haven Buckner CNP Unavailable [phone] Luh Acharya-C Unavailable [phone] BucknerHaven lofton CNP Unavailable [phone] Reason for Visit * Reason Onset Date Comments MyChart Communication 01/23/2017 Re: TIM for Midtheresa Encounter Details Date Type Department Care Team (Late st Contact Info) Description 01/23/2017 [facility] Medical Advice [address] [address] Kathy Glover MD [address] [place] [address] MyChart Communication (Re: TIM for Midrin) [...] AM CDT 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 You can call [phone] and ask that on-call provider be paged. Coty Doan, BS, RN, PHN [place] Triage * Telephone Encounter - Coty Doan RN - 01/26/2017 4:17 PM CDT VM left for nurses line at [facility] to call us back. Detailed message left with PCP note below. Coty Doan, BS, RN, PHN [place] Triage * Telephone Encounter - Kathy Glover MD - 01/26/2017 3:26 PM CDT BP Readings from Last 6 Encounters: 01/05/17 130/80 10/16/16 132/85 09/16/16 116/82 07/14/16 116/66 07/07/16 116/66 06/30/16 120/86 bp well controlled. Please call [facility] re: pt's increasing creatinine and [...] documented as of this encounter Care Teams Coating Inspector Relationship Specialty Start Date End Date Kathy Glover MD [address] [place] [address] [phone] PCP - General Family Practice 06/03/15 10/05/20 Kathy Glover MD [address] [place] [address] 751002 PCP - Assigned PCP 07/25/15 11/19/[address] 812492 PCP - General 10/06/20 11/20/21 Luh Acharya PA-C [address] [place] [address] 61713 PCP - General Family Medicine 11/21/21 01/02/23 Toma Arguello NP [address] [phone] Nurse Practitioner Nurse Practitioner Psych/Mental Health 04/11/17 Kathy Glover MD [address] [place] [address] 20319 Assigned PCP 07/25/15 12/20/19 Laura Us MD [address] [place] [address] 96484 Gastroenterology 12/20/18 Luh Acharya PA-C [address] [place] [address] 56354 Assigned PCP 12/21/19 01/17/20 Kathy Glover MD [address] [place] [address] 97280 Assigned PCP 01/18/20 06/19/20 Luh Acharya PA-C [address] [place] [address] 26584 Assigned PCP 06/20/20 03/31/21 Edward Marlow MD [address] [place] [address] 32810 Assigned Surgical Provider 07/09/20 07/31/20 Jas Bojorquez DO [address] [place] [address] 27899 Assigned PCP 04/01/21 05/21/21 Haven Buckner, BUS MONITOR [address] [place] [address] 49874 Assigned PCP 05/22/21 11/26/21 Jenise España MD Assigned Heart and Vascular Provider 07/24/21 11/17/22 Tierra Cancino PA-C [address] [place] [address] Physician Log Loader Urology 11/17/21 Luh Acharya PA-C [address] [place] [address] 92324 Assigned PCP 11/27/21 12/31/21 Tierra Cancino PA-C [address] [place] [address] Assigned Surgical Provider 12/11/21 06/08/23 Haven Buckner, NICOLE [address] [place] [address] 20477 Assigned PCP 01/01/22 12/22/22 Luh Acharya PA-C [address] [place] [address] 65249 Assigned PCP 12/23/22 05/18/23 Hvaen Buckner, BUS MONITOR [address] [place] [address] 12286 Assigned PCP 05/19/23 02/05/25 documented as of this encounter
--- OUTSIDE RECORDS SUMMARY | 2025-04-03 06:43 | XMS_ITS | Encounter Summary ---
Author Organization [place] Address [address] [place] [address] Care Team Providers Care Control Officer Manager Name Role Phone Kathy Glover MD Primary Care Provider Toma Arguello NP Unavailable [phone] Kathy Glover MD Unavailable [phone] Kathy Glover MD Unavailable [phone] Laura Us MD Unavailable Luh Acharya PA-C Unavailable [phone] Kathy Glover MD Unavailable [phone] Luh Acharya PA-C Unavailable [phone] Edward Marlow MD Unavailable [phone] [facility] Primary Care Provider Jas Bojorquez DO Unavailable [phone] Haven Buckner CNP Unavailable Jenise España MD Unavailable Unavailable Tierra CancinoC Unavailable [phone] Luh Acharya PA-C Primary Care Provider + Luh AcharyaC Unavailable [phone] Tierra Cancinojose guadalupe BAUTISTAC Unavailable Haven Buckner CNP Unavailable +[phone] Luh AcharyaC Unavailable +1- BucknerHaven lofton CNP Unavailable +1- Encounter Details Date Type Department Care Team (Late st Contact Info) Description 03/16/2017 My[facility] Medical Advice [address] [address] Kathy Glover MD [address] [place] [address] Social History Tobacco Use Types Packs/Day Years Used Date Smoking Tobacco: Former Cigarettes 1 20 Smokeless Tobacco: Never Alcohol Use Standard Drinks/Week Comments Yes 0 (1 standard drink = 0.6 oz pur e alcohol) 1 glass wine daily Comments No Sex and Gender Information Value Date Recorded Sex Assigned at Female 01/18/2019 9:01 AM CDT Legal Sex Female 3:41 AM 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 SUPPORT REP Gender Identity Female 01/18/2019 9:01 AM [...] documented as of this encounter Care Teams Control Officer Manager Relationship Specialty Start Date End Date Kathy Glover MD [address] [place] [address] PCP - General Family Practice 06/03/15 10/05/20 Kathy Glover MD [address] [place] [address] 64920 PCP - Assigned PCP 07/25/15 11/19/[address] 132312 PCP - General 10/06/20 11/20/21 Luh Acharya PA-C [address] [place] [address] 010062 PCP - General Family Medicine 11/21/21 01/02/23 Toma Arguello NP [address] [address] Nurse Practitioner Nurse Practitioner Psych/Mental Health 04/11/17 Kathy Glover MD [address] [place] [address] 93888 Assigned PCP 07/25/15 12/20/19 Laura Us MD [address] [place] [address] 65657 Gastroenterology 12/20/18 Luh Acharya PA-C [address] [place] [address] 01215 Assigned PCP 12/21/19 01/17/20 Kathy Glover MD [address] [place] [address] 16887 Assigned PCP 01/18/20 06/19/20 Luh Acharya PA-C [address] [place] [address] 35907 Assigned PCP 06/20/20 03/31/21 Edward Mar[place] [address] Assigned Surgical Provider 07/09/20 07/31/20 Jas Bojorquez DO [address] [place] [address] 76786 Assigned PCP 04/01/21 05/21/21 Haven Buckner CNP [address] [place] [address] 36729 Assigned PCP 05/22/21 11/26/21 Jenise España MD Assigned Heart and Vascular Provider 07/24/21 11/17/22 Tierra Cancino PA-C [address] [place] [address] Physician Power Cleaner Operator Urology 11/17/21 Luh Acharya PA-C [address] [place] [address] 80070 Assigned PCP 11/27/21 12/31/21 Tierra Cancino PA-C [address] [place] [address] Assigned Surgical Provider 12/11/21 06/08/23 Haven Buckner, NICOLE [address] [place] [address] 16765 Assigned PCP 01/01/22 12/22/22 Luh Acharya PA-C [address] [place] [address] 43510 Assigned PCP 12/23/22 05/18/23 Haven Buckner, NICOLE [address] [place] [address] 85725 Assigned PCP 05/19/23 02/05/25 documented as of this encounter
--- OUTSIDE RECORDS SUMMARY | 2025-04-03 06:43 | XMS_ITS | Encounter Summary ---
Author Organization [place] Address [address] [facility] [address] Care Team Providers Care Warehouse Laborer Name Role Phone Kathy Glover MD Primary Care Provider Toma Arguello NP Unavailable [phone] Kathy Glover MD Unavailable [phone] Kathy Glover MD Unavailable [phone] Laura Us MD Unavailable Luh Acharya PA-C Unavailable [phone] Kathy Glover MD Unavailable [phone] Luh Acharya PA-C Unavailable [phone] Edward Marlow MD Unavailable [phone] [facility] Primary Care Provider Jas Bojorquez DO Unavailable [phone] Haven Buckner CNP Unavailable Jenise España MD Unavailable Unavailable Tierra CancinoC Unavailable Luh Acharya PA-C Primary Care Provider + Luh Acharya-C Unavailable [phone] Tierra Cancino TIM-C Unavailable Sita Haven Harding CLEARING TUB WORKER Unavailable [phone] Luh Acharya Enedina DUMONT-C Unavailable [phone] Haven Buckner CLEARING TUB WORKER Unavailable [phone] Reason for Visit * Reason Onset Date Comments MyChart Communication 02/15/2017 migraine t reatments Encounter Details Date Type Department Care Team (Late st Contact Info) Description 02/15/2017 My[facility] Medical Advice [address] [address] Kathy Glover MD [address] [place] [address] MyChart Communication (migraine treatments) Social History [...] AM CDT Legal Sex Female 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 TAYLA Simmons, RN, PHN [place] Triage * Telephone Encounter - Kathy Glover [...] of PCP recommendations below. Script walked to [facility]. Patient asked if appeal letter had been written for her Midrin. I see that Midrin PA was denied on 01/17/2017. I do not see an appeal letter in chart so unsure of status. Will route to . TAYLA Simmons, RN, N [place] Triage * Telephone Encounter - Marcy Smith RN - 02/21/2017 8:28 AM CDT Received signed script. Attempt #1 to call pt. Marcy Smith contacted Yenni on 02/21/17 and left a message. If patient calls back please contact RN team. Put script on [employer] desk incase pt calls back. Dona Smith RN * Telephone Encounter - Marcy Smith RN - 02/21/2017 7:55 AM CDT Prescription put on [facility] desk for signature to then give to triage to alert pt of below. Dona Smith RN * Telephone Encounter - Kathy Glover MD - 02/21/2017 12:20 AM CDT Done for #20 tabs for severe pain - try to just take 1/2 tab for migraines, if needed. rx at [facility], please bring to me later this am when back in clinic and I'll sign. rx needs to bi picked up or walked over to our pharmacy. Await results of referral from neurology. * Telephone Encounter - Coty Doan RN - 02/16/2017 3:28 PM CDT Please review patient's Submitnethart message. TAYLA Simmons, RN, PHN [place] Triage * Telephone Encounter - Coty Doan RN - 02/16/2017 2:40 PM CDT Mychart note sent to patient with provider recommendations below. TAYLA Simmons, RN, PHN [place] Triage * Telephone Encounter - Kathy Glover MD - 02/16/2017 2:29 PM CDT ? Is pt doing the postconcussion program either through [facility] or via [facility] concussion technical operations specialist? Would highly recommend the [facility] program. If pt desires to do medical [...] documented as of this encounter Care Teams Warehouse Laborer Relationship Specialty Start Date End Date Kathy Glover MD [address] [place] [address] 165552 PCP - General Family Practice 06/03/15 10/05/20 Kathy Glover MD [address] [place] [address] [id number] PCP - Assigned PCP 07/25/15 11/19/[address] 752182 PCP - General 10/06/20 11/20/21 Luh Acharya PA-C [address] [place] [address] 915252 PCP - General Family Medicine 11/21/21 01/02/23 Toma Arguello NP [address] 115657 Nurse Practitioner Nurse Practitioner Psych/Mental Health 04/11/17 Kathy Glover MD [address] [place] [address] 497332 Assigned PCP 07/25/15 12/20/19 Laura Us MD [address] [place] [address] 30296 Gastroenterology 12/20/18 Luh Acharya PA-C [address] [place] [address] 76311 Assigned PCP 12/21/19 01/17/20 Kathy Glover MD [address] [place] [address] 20342 Assigned PCP 01/18/20 06/19/20 Luh Acharya PA-C [address] [place] [address] 91843 Assigned PCP 06/20/20 03/31/21 Edward Marlow MD [address] [place] [address] 48429 Assigned Surgical Provider 07/09/20 07/31/20 Jas Bojorquez DO [address] [place] [address] 96671 Assigned PCP 04/01/21 05/21/21 Haven Buckner, CLEARING TUB WORKER [address] [place] [address] 20147 Assigned PCP 05/22/21 11/26/21 Jenise España MD Assigned Heart and Vascular Provider 07/24/21 11/17/22 Tierra Cancino PA-C [address] [place] [address] Physician Blender / Cook Urology 11/17/21 Luh Acharya PA-C [address] [place] [address], [place] [address] Assigned PCP 11/27/21 12/31/21 Tierra Cancino PA-C [address] [place] [address] Assigned Surgical Provider 12/11/21 06/08/23 Haven Buckner, NICOLE [address] [place] [address], [place] [address] Assigned PCP 01/01/22 12/22/22 Luh Acharya PA-C [address] [place] [address], [place] [address] Assigned PCP 12/23/22 05/18/23 Haven Buckner, CLEARING TUB WORKER [address] [place] [address], [place] [address] Assigned PCP 05/19/23 02/05/25 documented as of this encounter
--- OUTSIDE RECORDS SUMMARY | 2025-04-03 06:43 | XMS_ITS | Encounter Summary ---
Author Organization [place] Address [address] [facility] [place] [address] Care Team Providers Care Drier Feeder Name Role Phone Kathy Glover MD Primary Care Provider Toma Arguello NP Unavailable [phone] Kathy Glover MD Unavailable [phone] Kathy Glover MD Unavailable [phone] Laura Us MD Unavailable Luh Acharya PA-C Unavailable [phone] Kathy Glover MD Unavailable [phone] Luh Acharya PA-C Unavailable [phone] Edward Marlow MD Unavailable [phone] [facility] Primary Care Provider Jas Bojorquez DO Unavailable [phone] Haven Buckner CNP Unavailable Jenise España MD Unavailable Unavailable Tierra CancinoC Unavailable Luh Acharya PA-C Primary Care Provider + Luh AcharyaC Unavailable [phone] Tierra Cancinojose guadalupe BAUTISTAC Unavailable Haven Buckner CNP Unavailable +[phone] Marck Luh DUMONT-C Unavailable +1- BucknerHaven lofton CNP Unavailable +1- Encounter Details Date Type Department Care Team (Late st Contact Info) Description 06/30/2016 MyC Medical Advice [address] [address] Mahesh Cuevas Jr., MD [address] [place] [address] Social History Tobacco Use Types Packs/Day Years Used Date Smoking Tobacco: Former Cigarettes 1 20 Smokeless Tobacco: Never Alcohol Use Standard Drinks/Week Comments Yes 0 (1 standard drink = 0.6 oz pur e alcohol) 1 glass wine daily Comments No Sex and Gender Information Value Date Recorded Sex Assigned at Female 01/18/2019 9:01 AM CDT 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 Gender Identity Female 01/18/2019 9:01 AM CDT [...] documented as of this encounter Care Teams Drier Feeder Relationship Specialty Start Date End Date Kathy Glover MD [address] [place] [address] PCP - General Family Practice 06/03/15 10/05/20 Kathy Glover MD [address] [place] [address] [phone] PCP - Assigned PCP 07/25/15 11/19/[address] 928792 PCP - General 10/06/20 11/20/21 Luh Acharya PA-C [address] [place] [address] [phone] PCP - General Family Medicine 11/21/21 01/02/23 Toma Arguello NP [address] [address] Nurse Practitioner Nurse Practitioner Psych/Mental Health 04/11/17 Kathy Glover MD [address] [place] [address] 30354 Assigned PCP 07/25/15 12/20/19 Laura Us MD [address] [place] [address] 44629 Gastroenterology 12/20/18 Luh Acharya PA-C [address] [place] [address] 50090 Assigned PCP 12/21/19 01/17/20 Kathy Glover MD [address] [place] [address] 48241 Assigned PCP 01/18/20 06/19/20 Luh Acharya PA-C [address] [place] [address] 90212 Assigned PCP 06/20/20 03/31/21 Edward Marlow MD [address] [place] [address] Assigned Surgical Provider 07/09/20 07/31/20 Jas Bojorquez DO [address] [place] [address] 90215 Assigned PCP 04/01/21 05/21/21 Haven Buckner, NICOLE [address] [place] [address] 48641 Assigned PCP 05/22/21 11/26/21 Jenise España MD Assigned Heart and Vascular Provider 07/24/21 11/17/22 Tierra Cancino PA-C [address] [place] [address] Physician Knitting Machine Fixer Urology 11/17/21 Luh Acharya PA-C [address] [place] [address] 81216 Assigned PCP 11/27/21 12/31/21 Tierra Cancino PA-C [address] [place] [address] Assigned Surgical Provider 12/11/21 06/08/23 Haven Buckner, NICOLE [address] [place] [address] 62115 Assigned PCP 01/01/22 12/22/22 Luh Acharya PA-C [address] [place] [address] 39145 Assigned PCP 12/23/22 05/18/23 Haven Buckner, NICOLE [address] [place] [address] 15783 Assigned PCP 05/19/23 02/05/25 documented as of this encounter
--- OUTSIDE RECORDS SUMMARY | 2025-04-03 06:43 | XMS_ITS | Encounter Summary ---
Author Organization [place] Address [address] [facility] [place] [address] Care Team Providers Care Life Skills Instructor Name Role Phone Kathy Glover MD Primary Care Provider Toma Arguello NP Unavailable [phone] Kathy Glover MD Unavailable [phone] Kathy Glover MD Unavailable [phone] Laura Us MD Unavailable Luh Acharya PA-C Unavailable [phone] Kathy Glover MD Unavailable [phone] Luh Acharya PA-C Unavailable [phone] Edward Marlow MD Unavailable [facility] Primary Care Provider Jas Bojorquez DO Unavailable [phone] Haven Buckner CNP Unavailable Jenise España MD Unavailable Unavailable Tierra CancinoC Unavailable Luh Acharya PA-C Primary Care Provider + Luh AcharyaC Unavailable [phone] Tierra Cancinovonnvandana BAUTISTAC Unavailable Haven Buckner CNP Unavailable +[phone] AcharyaLuh-C Unavailable [phone] BucknerHaven lofton CNP Unavailable +[phone] Reason for Referral * Diagnostic Imaging MRI - Closed Specialty Diagnoses / Procedures Referred By Rafa t Referred To Contact Radiology. Diagnoses Complex cyst of right ovary Procedures MR Pelvis (PHYSICIAN REPRESENTATIVE) wo & w Contrast MR Pelvis (PHYSICIAN REPRESENTATIVE) w Contrast Kathy Glover MD [address] [place] [address] Phone: tel: fax: [facility] [address] [place] [address] Phone: tel: fax: Referral ID Status Reason Start Date Expiration Date Visits Re quested Visits Authorized [id number] Closed 08/19/2018 08/19/2019 1 1 OF MUSIC Reason for Visit * Reason Onset Date Comments MyChart Communication 08/15/2018 Re: MRI re sults back specialist Encounter Details Date Type Department Care Team (Late st Contact Info) Description 08/15/2018 MyC Medical Advice [address] [place] [phone] Kathy Glover MD [address] [place] [address] MyChart Communication (Re: MRI results bennett... [...] AM CDT Legal Sex Female 3:41 AM HEAD OF MUSIC Gender Identity Female 01/18/2019 9:01 AM CDT [...] Doan RN - 08/19/2018 9:42 AM CST Gizmoz message sent to patient with recommendation below. TAYLA Simmons, RN, PHN [facility] [phone] OF MUSIC * Telephone Encounter - Kathy Glover MD - 08/19/2018 6:19 AM HEAD OF MUSIC Possible hemorrhagic right adnexal cysts noted on MRI lumbar spine - radiology recommended MR of pelvis to better discern. Ordered. Please inform patient. OF MUSIC * Telephone Encounter - Coty Doan RN - 08/15/2018 12:56 PM HEAD OF MUSIC Forwarded to J. Please review patient's hiogit message and advise. Coty Doan RN, BS, PHN [place] documented in this encounter Plan of Treatment Not on file documented as of this encounter Results * MR Pelvis (PHYSICIAN REPRESENTATIVE) wo & w Contrast (08/27/2018 8:13 AM HEAD OF MUSIC) Anatomical Region Laterality Modality Abdomen/Pelvis, SUBRAD MR BODY, UMP MR BODY, RAD MR Magnetic Resonance Impressions 08/27/2018 4:09 PM HEAD OF MUSIC IMPRESSION: 1. Grouping of cysts at the right upper pelvis may arise from the right ovary versus adnexa. Two of these have elevated T1 signal suggesting hemorrhagic cysts while another is a small simple cyst. 2. The uterus is absent. The left ovary is not visualized for assessment. 3. A few scattered colonic diverticula. JAXON STAPLES MD Narrative 08/27/2018 4:09 PM HEAD OF MUSIC MR PELVIS (PHYSICIAN REPRESENTATIVE) WITH AND WITHOUT CONTRAST August 27, 2018 8:13 AM HISTORY: Complex cysts near right adnexa noted on MRI lumbar spine. Rule out hemorrhagic/endometriosis. TECHNIQUE: Multiplanar, multiecho MRI was performed using T1, T2, and in- and tdj-fc-jfzmw imaging. Pre- and postcontrast T1 images were [...] Jaxon Staples MD - 08/27/2018 MR PELVIS (PHYSICIAN REPRESENTATIVE) WITH AND WITHOUT CONTRAST August 27, 2018 8:13 AM HISTORY: Complex cysts near right adnexa noted on MRI lumbar spine. Rule out hemorrhagic/endometriosis. TECHNIQUE: Multiplanar, multiecho MRI was performed using T1, T2, and in- and scl-is-zfcjy imaging. Pre- and postcontrast T1 images were [...] documented as of this encounter Care Teams Life Skills Instructor Relationship Specialty Start Date End Date Kathy Glover MD [address] [place] [address] PCP - General Family Practice 06/03/15 10/05/20 Kathy Glover MD [address] [place] [address] 78655 PCP - Assigned PCP 07/25/15 11/19/[address] [address] PCP - General 10/06/20 11/20/21 Luh Acharya PA-C [address] [place] [address] 21165 PCP - General Family Medicine 11/21/21 01/02/23 Toma Arguello NP [address] [address] Nurse Practitioner Nurse Practitioner Psych/Mental Health 04/11/17 Kathy Glover MD [address] [place] [address] 44271 Assigned PCP 07/25/15 12/20/19 Laura Us MD [address] [place] [address] 50311 Gastroenterology 12/20/18 Luh Acharya PA-C [address] [place] [address] 97859 Assigned PCP 12/21/19 01/17/20 Kathy Glover MD [address] [place] [address] 66235 Assigned PCP 01/18/20 06/19/20 Luh Acharya PA-C [address] [place] [address] 41920 Assigned PCP 06/20/20 03/31/21 Edward Marlow MD [address] [place] [address]25 Assigned Surgical Provider 07/09/20 07/31/20 Jas Bojorquez DO [address] [place] [address], [place] [address] Assigned PCP 04/01/21 05/21/21 Haven Buckner, NICOLE [address] [place] [address], [place] [address] Assigned PCP 05/22/21 11/26/21 Jenise España MD Assigned Heart and Vascular Provider 07/24/21 11/17/22 Tierra Cancino PA-C [address] [place] [address] Physician Pharmacy Aide Urology 11/17/21 Luh Acharya PA-C [address] [place] [address] Assigned PCP 11/27/21 12/31/21 Tierra Cancino PA-C [address] [place] [address] Assigned Surgical Provider 12/11/21 06/08/23 Haven Buckner, NICOLE [address] [place] [address], [place] [address] Assigned PCP 01/01/22 12/22/22 Luh Acharya PA-C [address] [place] [address], [place] [address] Assigned PCP 12/23/22 05/18/23 Haven Buckner, NICOLE [address] [place] [address] Assigned PCP 05/19/23 02/05/25 documented as of this encounter
--- OUTSIDE RECORDS SUMMARY | 2025-04-03 06:43 | XMS_ITS | Encounter Summary ---
Author Organization [place] Address [address] [facility] [place] [address] Care Team Providers Care Instrument Lens Generator Name Role Phone Kathy Glover MD Primary Care Provider Toma Arguello NP Unavailable [phone] Kathy Glover MD Unavailable +[phone] Kathy Glover MD Unavailable [phone] Laura Us MD Unavailable Luh Acharya PA-C Unavailable +[phone] Kathy Glover MD Unavailable +[phone] Luh Acharya PA-C Unavailable +[phone] Edward Marlow MD Unavailable [facility] Primary Care Provider Jas Bojorquez DO Unavailable [phone] Haven Buckner CNP Unavailable Jenise España MD Unavailable Unavailable Tierra CancinoC Unavailable [phone] Luh Acharya PA-C Primary Care Provider + Luh Acharya-C Unavailable [phone] Tierra Cancino TIM-C Unavailable [phone] SitaHaven Meaghan SUPERINTENDENT POLICE Unavailable +[phone] Luh Acharya Enedina PA-C Unavailable [phone] Haven Bucknerth SUPERINTENDENT POLICE Unavailable +[phone] Reason for Visit * Reason Onset Date Comments MyChart Communication 02/22/[address] recommendation Encounter Details Date Type Department Care Team (Late st Contact Info) Description 02/22/2017 MyC Medical Advice [address] [phone] [place] [address] [place] [address] MyChart Communication (psychiatrist recomm... 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 Gender Identity Female 01/18/2019 9:01 AM CDT [...] documented as of this encounter Care Teams Instrument Lens Generator Relationship Specialty Start Date End Date Kathy Glover MD [address] [place] [address] PCP - General Family Practice 06/03/15 10/05/20 Kathy Glover MD [address] [place] [address] PCP - Assigned PCP 07/25/15 11/19/[address] 730492 PCP - General 10/06/20 11/20/21 Luh Acharya PA-C [address] [place] [address] [phone] PCP - General Family Medicine 11/21/21 01/02/23 Toma Arguello NP [address] [address] Nurse Practitioner Nurse Practitioner Psych/Mental Health 04/11/17 Kathy Glover MD [address] [place] [address], [place] [address] Assigned PCP 07/25/15 12/20/19 Laura Us MD [address] [place] [address], [place] [address] Gastroenterology 12/20/18 Luh Acharya PA-C [address] [place] [address], [place] [address] Assigned PCP 12/21/19 01/17/20 Kathy Glover MD [address] [place] [address], [place] [address] Assigned PCP 01/18/20 06/19/20 Luh Acharya PA-C [address] [place] [address], [place] [address] Assigned PCP 06/20/20 03/31/21 Edward Marlow MD [facility] [place] [address] Assigned Surgical Provider 07/09/20 07/31/20 Jas Bojorquez DO [address] [place] [address], [place] [address] Assigned PCP 04/01/21 05/21/21 Haven Buckner, SUPERINTENDENT POLICE [address] [place] [address], [place] [address] Assigned PCP 05/22/21 11/26/21 Jenise España MD Assigned Heart and Vascular Provider 07/24/21 11/17/22 Tierra Cancino PA-C [address] [place] [address] Physician Draft Roller Picker Urology 11/17/21 Luh Acharya PA-C [address] [place] [address] Assigned PCP 11/27/21 12/31/21 Tierra Cancino PA-C [address] [place] [address] Assigned Surgical Provider 12/11/21 06/08/23 Haven Buckner, NICOLE [address] [place] [address] Assigned PCP 01/01/22 12/22/22 Luh Acharya PA-C [address] [place] [address] Assigned PCP 12/23/22 05/18/23 Haven Buckner, NICOLE [address] [place] [address] 364[address] Assigned PCP 05/19/23 02/05/25 documented as of this encounter
--- OUTSIDE RECORDS SUMMARY | 2025-04-03 06:44 | XMS_ITS | Encounter Summary ---
Author Organization [place] Address [address] [facility] [place] [address] Care Team Providers Care Foundation Relations Manager Name Role Phone Kathy Glover MD Primary Care Provider Toma Arguello NP Unavailable [phone] Kathy Glover MD Unavailable +[phone] Laura Us MD Unavailable Luh AcharyaC Unavailable + [phone] Kathy Glover MD Unavailable +[phone] Luh AcharyaC Unavailable + [phone] Edward Marlow MD Unavailable [phone] [facility] Primary Care Provider Jas Bojorquez DO Unavailable +[phone] Haven Buckner ACOUSTICAL ENGINEER Unavailable +[phone] Jenise España MD Unavailable Unavailable Tierra Cancino-C Unavailable Luh AcharyaC Primary Care Provider + Luh AcharyaC Unavailable + [phone] Tierra Cancino PA-C Unavailable [phone] Haven Buckner CNP Unavailable + Luh Acharya PA-C Unavailable + Haven Buckner CNP Unavailable + Encounter Details Date Type Department Care Team (Late st Contact Info) Description 01/08/2019 MyC Medical Advice [address] [phone] Marcy Smith RN Social History Tobacco Use [...] AM CDT 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 Gender Identity Female 01/18/2019 9:01 AM CDT [...] Total Score: 5 11/22/19 19 7:06 AM REGISTERED MAIL CLERK documented as of this encounter Care Teams Foundation Relations Manager Relationship Specialty Start Date End Date Kathy Glover MD [address] [place] [address] [phone] PCP - General Family Practice 06/03/15 10/05/20 [facility] - [address] 396322 PCP - General 10/06/20 11/20/21 Luh Acharya PA-C [address] [place] [address] PCP - General Family Medicine 11/21/21 01/02/23 Toma Arguello NP [address] [address] Nurse Practitioner Nurse Practitioner Psych/Mental Health 04/11/17 Kathy Glover MD [address] [place] [address] Assigned PCP 07/25/15 12/20/19 Laura Us MD [address] [place] [address] Gastroenterology 12/20/18 Luh Acharya PA-C [address] [place] [address] Assigned PCP 12/21/19 01/17/20 Kathy Glover MD [address] [place] [address] Assigned PCP 01/18/20 06/19/20 Luh Acharya PA-C [address] [place] [address] Assigned PCP 06/20/20 03/31/21 Edward Marlow MD [address] [place] [address] Assigned Surgical Provider 07/09/20 07/31/20 Jas Bojorquez DO [address] [place] [address] Assigned PCP 04/01/21 05/21/21 Haven Buckner, ACOUSTICAL ENGINEER [address] [place] [address] Assigned PCP 05/22/21 11/26/21 Jenise España MD Assigned Heart and Vascular Provider 07/24/21 11/17/22 Tierra Cancino PA-C [address] [place] [address] Physician Bleacher Lard Urology 11/17/21 Luh Acharya PA-C [address] [place] [address] Assigned PCP 11/27/21 12/31/21 Tierra Cancino PA-C [address] [place] [address] Assigned Surgical Provider 12/11/21 06/08/23 Haven Buckner, NICOLE [address] [place] [address] Assigned PCP 01/01/22 12/22/22 Luh Acharya PA-C [address] [place] [address], [place] [address] Assigned PCP 12/23/22 05/18/23 Haven Buckner, ACOUSTICAL ENGINEER [address] [place] [address], [place] [address] Assigned PCP 05/19/23 02/05/25 documented as of this encounter
--- OUTSIDE RECORDS SUMMARY | 2025-04-03 06:44 | XMS_ITS | Encounter Summary ---
Author Organization [place] Address [address] [facility] [address] Care Team Providers Care Principal Associate Name Role Phone Toma Arguello YESICA Unavailable [phone] Laura Us MD Unavailable [facility] Primary Care Provider Haven Buckner CNP Unavailable +[phone] Jenise España MD Unavailable Unavailable Tierra Cancino-C Unavailable [phone] Luh Acharya-C Primary Care Provider + Luh Acharya-C Unavailable +[phone] Tierra Cancino-C Unavailable +[phone] Haven Buckner CNP Unavailable [phone] Luh Acharya PA-C Unavailable +[phone] Haven Bucknre CNP Unavailable [phone] Reason for Visit * Reason Onset Date Comments Refill Request 08/26/2021 Encounter Details Date Type Department Care Team (Late st Contact Info) Description 08/26/[address] [facility] [address] [place] [address] Luh Acharya PA-C [address] [place] [address] [phone] Refill Request Social History Tobacco Use Types [...] AM CDT Legal Sex Female 3:41 AM ABSTRACT WRITER Gender Identity Female 01/18/2019 9:01 AM CDT [...] Manisha Patel RN - 08/31/2021 10:35 AM ABSTRACT WRITER Due for an Office visit for further refills, only fill for 30 days Manisha Patel RN, BSN [facility] Triage RACT WRITER documented in this encounter Plan of Treatment [...] documented as of this encounter Care Teams Principal Associate Relationship Specialty Start Date End Date Clinic - Home [facility] [address] [address] PCP - General 10/06/20 11/20/21 Luh Acharya PA-C [address] [place] [address] PCP - General Family Medicine 11/21/21 01/02/23 Toma Arguello, CERTIFIED ENERGY MANAGER [place] [address] [place] [address] Nurse Practitioner Nurse Practitioner Psych/Mental Health 04/11/17 Laura Us MD [place] [address] [place] [address] Gastroenterology 12/20/18 Haven Buckner, NICOLE [address] [place] [address] Assigned PCP 05/22/21 11/26/21 Jenise España MD Assigned Heart and Vascular Provider 07/24/21 11/17/22 Tierra Cancino PA-C [address] [place] [address] Physician Switchboard And Control Room Operator Urology 11/17/21 Luh Acharya PA-C [address] [place] [address] 518292 Assigned PCP 11/27/21 12/31/21 Tierra Cancino PA-C [address] [place] [address] Assigned Surgical Provider 12/11/21 06/08/23 Haven Buckner, NICOLE [address] [place] [address] Assigned PCP 01/01/22 12/22/22 Luh Acharya PA-C [address] [place] [address] Assigned PCP 12/23/22 05/18/23 Haven Buckner, NICOLE [address] [place] [address] Assigned PCP 05/19/23 02/05/25 documented as of this encounter
--- OUTSIDE RECORDS SUMMARY | 2025-04-03 06:44 | XMS_ITS | Clinical Summary ---
Author Organization [facility] Address [address] [place] [phone] Phone Care Team Providers Care Travel Pta Name Role Phone Kathy Glover MD Primary [...] 8 Active ergocalciferol (VITAMIN D2) 1.25 MG (96813 UT) capsule Take 1 tab weekly 0 [...] Comments Blood Pressure 114/84 11/23/2017 12:01 AM TRANSIT MIXER DRIVER Si tting, Left Pulse 80 11/23/2017 12:01 AM TRANSIT MIXER DRIVER Brac hial Temperature 37 C (98.6 F) 11/23/2017 12:01 AM TRANSIT MIXER DRIVER Respiratory Rate - - Oxygen Saturation - - Inhaled Oxygen Concentration - - Weight 79.4 kg (175 lb) 11/23/2017 12:01 AM TRANSIT MIXER DRIVER Height 167.6 cm (5' 6) 11/23/2017 12:01 AM TRANSIT MIXER DRIVER Body Mass Index 28.25 11/23/2017 12:01 AM TRANSIT MIXER DRIVER Plan of Treatment Not on file Insurance PM [employer] INSURANCE Care Teams Travel Pta Relationship Specialty Start Date End Date Kathy Glover MD [address] [place] [address] PCP - General 05/11/21
--- OUTSIDE RECORDS SUMMARY | 2025-04-03 06:44 | XMS_ITS | Encounter Summary ---
Author Organization [place] Address [address] [place] [address] Care Team Providers Care Pt Escort Name Role Phone Toma Arguello YESICA Unavailable [phone] Laura Us MD Unavailable [facility] Primary Care Provider Haven Buckner CNP Unavailable [phone] Jenise España MD Unavailable Unavailable Tierra Cancino-C Unavailable [phone] Luh Acharya-C Primary Care Provider + Luh Acharya-Melissa Unavailable +- [phone] Tierra Cancino-Melissa Unavailable [phone] Haven Buckner CNP Unavailable [phone] Luh Acharya PA-C Unavailable +[phone] Haven Buckner CNP Unavailable +[phone] Reason for Visit * Reason Comments Medication Refill Encounter Details Date Type Department Care Team (Late st Contact Info) Description 09/07/[address] [phone] Haven Buckner, MANAGER ADMINISTRATIVE [address] [place], [place] 5487[address] Medication Refill Social History Tobacco Use Types [...] AM CDT Legal Sex Female 3:41 AM MEDICAL OFFICE COORDINATOR Gender Identity Female 01/18/2019 9:01 AM CDT [...] 09/08/2021 3:35 PM CST Prescription approved per [facility] Refill Protocol. CAL OFFICE COORDINATOR documented in this encounter Plan of Treatment [...] documented as of this encounter Care Teams Pt Escort Relationship Specialty Start Date End Date Clinic - [facility] [address] 639192 PCP - General 10/06/20 11/20/21 Luh Acharya PA-C [address] [place] [address] PCP - General Family Medicine 11/21/21 01/02/23 Toma Arguello ASSEMBLY PRESS OPERATOR [facility] [address] [place] [address] Nurse Practitioner Nurse Practitioner Psych/Mental Health 04/11/17 Laura Us MD [facility] [address] [place] [address] Gastroenterology 12/20/18 Haven Buckner, NICOLE [address] [place] [address] Assigned PCP 05/22/21 11/26/21 Jenise España MD Assigned Heart and Vascular Provider 07/24/21 11/17/22 Tierra Cancino PA-C [address] [place] [address] Physician Executive Housekeeper Urology 11/17/21 Luh Acharya PA-C [address] [place] [address] Assigned PCP 11/27/21 12/31/21 Tierra Cancino PA-C [address] [place] [address] Assigned Surgical Provider 12/11/21 06/08/23 Haven Buckner, NICOLE [address] [place] [address], [place] [address] Assigned PCP 01/01/22 12/22/22 Luh Acharya PA-C [address] [place] [address] Assigned PCP 12/23/22 05/18/23 Haven Buckner, MANAGER ADMINISTRATIVE [address] [place] [address] Assigned PCP 05/19/23 02/05/25 documented as of this encounter
--- OUTSIDE RECORDS SUMMARY | 2025-04-03 06:44 | XMS_ITS | Encounter Summary ---
Author Organization [place] Address [address] [facility] [place] [address] Care Team Providers Care Packing And Wrapping Supervisor Name Role Phone Toma Arguello YESICA Unavailable [phone] Laura Us MD Unavailable [facility] Primary Care Provider Haven Buckner CNP Unavailable [phone] Jenise España MD Unavailable Unavailable Tierra Cancino-C Unavailable +[phone] Luh Acharya-C Primary Care Provider + Luh Acharya-Melissa Unavailable +- [phone] Tierra Cancino-eMlissa Unavailable [phone] Haven Buckner CNP Unavailable [phone] Luh Acharya PA-C Unavailable +[phone] Haven Buckner CNP Unavailable +[phone] Reason for Visit * Reason Comments Medication Refill Encounter Details Date Type Department Care Team (Late st Contact Info) Description 08/30/[address] [phone] BucknerHaven lotfon Meaghan, COMMUNICATION EQUIPMENT REPAIRER [address] [place], [place] [address] Medication Refill Social History Tobacco Use Types [...] AM CDT Legal Sex Female 3:41 AM TRAFFIC MAINTENANCE SUPERVISOR Gender Identity Female 01/18/2019 9:01 AM [...] Manisha Patel RN - 09/01/2021 10:07 PM TRAFFIC MAINTENANCE SUPERVISOR Due for an Office visit for further refills, only fill for 30 days Manisha Patel RN, BSN [facility] Triage FIC MAINTENANCE SUPERVISOR documented in this encounter Plan of [...] documented as of this encounter Care Teams Packing And Wrapping Supervisor Relationship Specialty Start Date End Date Clinic - Home [facility] [address] [place] [address] PCP - General 10/06/20 11/20/21 Luh Acharya PA-C [address] [place] [address] PCP - General Family Medicine 11/21/21 01/02/23 Toma Arguello MANAGER OF DRILLING [facility] [address] [place] [address] Nurse Practitioner Nurse Practitioner Psych/Mental Health 04/11/17 Laura Us MD [place] [address] [place] [address] Gastroenterology 12/20/18 Haven Buckner, COMMUNICATION EQUIPMENT REPAIRER [address] [place] [address] Assigned PCP 05/22/21 11/26/21 Jenise España MD Assigned Heart and Vascular Provider 07/24/21 11/17/22 Tierra Cancino PA-C [address] [place] [address] Physician Rip/Mould Operator Urology 11/17/21 Luh Acharya PA-C [address] [place] [address] Assigned PCP 11/27/21 12/31/21 Tierra Cancino PA-C [address] [place] [address] Assigned Surgical Provider 12/11/21 06/08/23 Haven Buckner, COMMUNICATION EQUIPMENT REPAIRER [address] [place] [address] Assigned PCP 01/01/22 12/22/22 Luh Acharya PA-C [address] [place] [address] Assigned PCP 12/23/22 05/18/23 Haven Buckner, COMMUNICATION EQUIPMENT REPAIRER [address] [place] [address] Assigned PCP 05/19/23 02/05/25 documented as of this encounter
--- OUTSIDE RECORDS SUMMARY | 2025-04-03 06:44 | XMS_ITS | Encounter Summary ---
Author Organization [place] Address [address] [place] [address] Care Team Providers Care Pad Hand Name Role Phone Toma Arguello YESICA Unavailable [phone] Laura Us MD Unavailable Luh Acharya-C Unavailable + [phone] [facility] Primary Care Provider Jas Bojorquez DO Unavailable [phone] Haven Buckner CNP Unavailable +-[phone] Jenise España MD Unavailable Unavailable Tierra Cancino-C Unavailable Luh Acharya-C Primary Care Provider + Luh Acharya-C Unavailable + [phone] Tierra Cancino-C Unavailable +[phone] Haven Buckner CNP Unavailable +-[phone] Luh Acharya-C Unavailable + [phone] Haven Buckner CNP Unavailable +-[phone] Reason for Visit * Reason Onset Date Comments MyChart Communication 02/21/2021 Encounter Details Date Type Department Care Team (Late st Contact Info) Description 02/21/2021 MyC Medical Advice [facility] [address] [place] [phone] Haven Buckner, THEATER EDUCATION TEACHER [address] [place] [address] MyChart Communication Social History Tobacco Use Types [...] AM CDT Legal Sex Female 3:41 AM CERAMICS ARTIST Gender Identity Female 01/18/2019 9:01 AM CDT [...] advise Thank you Manisha Patel RN, BSN [facility] Triage documented in this encounter Plan of [...] Total Score: 1 07/27/20 20 2:05 PM CERAMICS ARTIST documented as of this encounter Care Teams Pad Hand Relationship Specialty Start Date End Date Clinic - [facility] [address] [place] [address] PCP - General 10/06/20 11/20/21 Luh Acharya PA-C [address] [place] [address] PCP - General Family Medicine 11/21/21 01/02/23 Toma Arguello NP [address] [address] Nurse Practitioner Nurse Practitioner Psych/Mental Health 04/11/17 Laura Us MD [address] [address] Gastroenterology 12/20/18 Luh Acharya PA-C [address] [place] [address] Assigned PCP 06/20/20 03/31/21 Jas Bojorquez DO [address] [place] [address] [phone] Assigned PCP 04/01/21 05/21/21 Haven Buckner, NICOLE [address] [place] [address] [id number] Assigned PCP 05/22/21 11/26/21 Jenise España MD Assigned Heart and Vascular Provider 07/24/21 11/17/22 Tierra Cancino PA-C [address] [place] [address] Physician General Production Worker Urology 11/17/21 Luh Acharya PA-C [address] [place] [address], [place] [address] Assigned PCP 11/27/21 12/31/21 Tierra Cancino PA-C [address] [place] [address] Assigned Surgical Provider 12/11/21 06/08/23 Haven Buckner, THEATER EDUCATION TEACHER [address] [place] [address] Assigned PCP 01/01/22 12/22/22 Luh Acharya PA-C [address] [place] [address] Assigned PCP 12/23/22 05/18/23 Haven Bukcner, THEATER EDUCATION TEACHER [address] [place] [address] Assigned PCP 05/19/23 02/05/25 documented as of this encounter
--- OUTSIDE RECORDS SUMMARY | 2025-04-03 06:44 | XMS_ITS | Encounter Summary ---
Author Organization [place] Address [address] [facility] [place] [address] Care Team Providers Care Chemical Operations And Training Name Role Phone Kathy Glover MD Primary Care Provider Toma Arguello NP Unavailable [phone] Kathy Glover MD Unavailable +[phone] Laura Us MD Unavailable Luh AcharyaC Unavailable + [phone] Kathy Glover MD Unavailable +[phone] Luh AcharyaC Unavailable + [phone] Edward Marlow MD Unavailable [phone] [facility] Primary Care Provider Jas Bojorquez DO Unavailable +[phone] Haven Buckner DIRECTOR OF PREMIUM SEAT SALES Unavailable +[phone] Jenise España MD Unavailable Unavailable Tierra Cancino-C Unavailable Luh AcharyaC Primary Care Provider + Luh AcharyaC Unavailable + [phone] Tierra Cancino PA-C Unavailable [phone] Haven Buckner CNP Unavailable + Luh Acharya PA-C Unavailable + BucknerHaven lofton CNP Unavailable + Encounter Details Date Type Department Care Team (Late st Contact Info) Description 07/14/2019 MyC Medical Advice [address] [place] [phone] Renay [place] RN Social History Tobacco Use [...] AM CDT Legal Sex Female 3:41 AM TRADING FLOOR OPERATOR Gender Identity Female 01/18/2019 9:01 AM [...] documented as of this encounter Care Teams Chemical Operations And Training Relationship Specialty Start Date End Date Kathy Glover MD [address] [place] [address] [id number] PCP - General Family Practice 06/03/15 10/05/20 [facility] - [address] [phone] PCP - General 10/06/20 11/20/21 Luh Acharya PA-C [address] [place] [address] PCP - General Family Medicine 11/21/21 01/02/23 Toma Arguello NP [address] [address] Nurse Practitioner Nurse Practitioner Psych/Mental Health 04/11/17 Kathy Glover MD [address] [place] [address] Assigned PCP 07/25/15 12/20/19 Laura Us MD [address] [place] [address] Gastroenterology 12/20/18 Luh Acharya PA-C [address] [place] [address] Assigned PCP 12/21/19 01/17/20 Kathy Glover MD [address] [place] [address] Assigned PCP 01/18/20 06/19/20 Luh Acharya PA-C [address] [place] [address] Assigned PCP 06/20/20 03/31/21 Edward [place] [address] Assigned Surgical Provider 07/09/20 07/31/20 Jas Bojorquez DO [address] [place] [address] Assigned PCP 04/01/21 05/21/21 Haven Buckner, DIRECTOR OF PREMIUM SEAT SALES [address] [place] [address] Assigned PCP 05/22/21 11/26/21 Jenise España MD Assigned Heart and Vascular Provider 07/24/21 11/17/22 Tierra Cancino PA-C [address] [place] [address] Physician Donor Relations Coordinator Urology 11/17/21 Luh Acharya PA-C [address] [place] [address] Assigned PCP 11/27/21 12/31/21 Tierra Cancino PA-C [address] [place] [address] Assigned Surgical Provider 12/11/21 06/08/23 Haven Buckner CNP [address] [place] [address] Assigned PCP 01/01/22 12/22/22 Luh Acharya PA-C [address] [place] [address] Assigned PCP 12/23/22 05/18/23 Haven Buckner, DIRECTOR OF PREMIUM SEAT SALES [address] [place] [address] Assigned PCP 05/19/23 02/05/25 documented as of this encounter
--- OUTSIDE RECORDS SUMMARY | 2025-04-03 06:44 | XMS_ITS | Encounter Summary ---
Author Organization [place] Address [address] [facility] [place] [address] Care Team Providers Care Associate Professor Of Economics Name Role Phone Kathy Glover MD Primary Care Provider Toam Arguello NP Unavailable [phone] Kathy Glover MD Unavailable [phone] Kathy Glover MD Unavailable [phone] Laura Us MD Unavailable Luh Acharya PA-C Unavailable [phone] Kathy Glover MD Unavailable [phone] Luh Acharya PA-C Unavailable +[phone] Edward Marlow MD Unavailable [phone] [facility] Primary Care Provider Jas Bojorquez DO Unavailable [phone] Haven Buckner CNP Unavailable Jenise España [...] (Late st Contact Info) Description 06/27/2018 Refill [facility] [address] [place] [address] [place] [address] [place] [address] Medication Refill Social History Tobacco Use Types Packs/Day Years Used Date Smoking Tobacco: Former Cigarettes 1 20 Smokeless Tobacco: Never Alcohol Use Standard Drinks/Week Comments No 0 (1 standard drink = 0.6 oz pur e alcohol) Comments No Sex and Gender Information Value Date Recorded Sex Assigned at Female 01/18/2019 9:01 AM CDT Legal Sex Female 3:41 AM LOCOMOTIVE ENGINEER ELECTRIC Gender Identity Female 01/18/2019 9:01 AM CDT [...] as of this encounter Care Teams Associate Professor Of Economics Relationship Specialty Start Date End Date Kathy Glover MD [address] [place] [address] 46059 PCP - General Family Practice 06/03/15 10/05/20 Kathy Glover MD [address] [place] [address] 52301 PCP - Assigned PCP 07/25/15 11/19/[address] [address] PCP - General 10/06/20 11/20/21 Luh Acharya PA-C [address] [place] [address] [phone] PCP - General Family Medicine 11/21/21 01/02/23 Toma Arguello NP [address] [phone] Nurse Practitioner Nurse Practitioner Psych/Mental Health 04/11/17 Kathy Glover MD [address] [place] [address] 19251 Assigned PCP 07/25/15 12/20/19 Laura Us MD [address] [place] [address] [id number] Gastroenterology 12/20/18 Luh Acharya PA-C [address] [place] [address] 57398 Assigned PCP 12/21/19 01/17/20 Kathy Glover MD [address] [place] [address] 564102 Assigned PCP 01/18/20 06/19/20 Luh Acharya PA-C [address] [place] [address] [phone] Assigned PCP 06/20/20 03/31/21 Edward Marlow [place] [address] Assigned Surgical Provider 07/09/20 07/31/20 Jas Bojorquez DO [address] [place] [address] 968752 Assigned PCP 04/01/21 05/21/21 Haven Buckner, NICOLE [address] [place] [address] 929302 Assigned PCP 05/22/21 11/26/21 Jenise España MD Assigned Heart and Vascular Provider 07/24/21 11/17/22 Tierra Cancino PA-C [address] [address] Physician Air And Water Tester Urology 11/17/21 Luh Acharya PA-C [address] [place] [address] 75213 Assigned PCP 11/27/21 12/31/21 Tierra Cancino PA-C [address] [place] [place] [address] Assigned Surgical Provider 12/11/21 06/08/23 Haven Buckner, COLOR MAKER FORMULATOR [address] [place] [address], [place] [address] Assigned PCP 01/01/22 12/22/22 Luh Acharya PA-C [address] [place] [address] [phone] Assigned PCP 12/23/22 05/18/23 Haven Buckner, COLOR MAKER FORMULATOR [address] [place] [address] 98905 Assigned PCP 05/19/23 02/05/25 documented as of this encounter
--- OUTSIDE RECORDS SUMMARY | 2025-04-03 06:44 | XMS_ITS | Encounter Summary ---
Author Organization [place] Address [address] [facility] [place] [address] Care Team Providers Care Diet Assistant Name Role Phone Toma Arguello YESICA Unavailable [phone] Laura Us MD Unavailable [facility] Primary Care Provider Haven Buckner CNP Unavailable [phone] Jenise España MD Unavailable Unavailable Tierra Cancino-C Unavailable [phone] Luh Acharya-C Primary Care Provider + Luh Acharya-Melissa Unavailable +[phone] Tierra Cancino-Melissa Unavailable [phone] Haven Buckner CNP Unavailable [phone] Luh Acharya PA-C Unavailable [phone] Haven Buckner CNP Unavailable [phone] Reason for Visit * Reason Comments Medication Refill Encounter Details Date Type Department Care Team (Late st Contact Info) Description 10/14/[address] [phone] Luh Acharya PA-C [address] [place] [address] Medication Refill Social History Tobacco Use Types [...] AM CDT Legal Sex Female 3:41 AM BALLPOINT PEN ASSEMBLY MACHINE OPERATOR Gender Identity Female 01/18/2019 9:01 AM [...] COVID-19? No / Unsure 10/13/2021 3:21 PM BALLPOINT PEN ASSEMBLY MACHINE OPERATOR documented as of this encounter Miscellaneous Notes * Telephone Encounter - Nancy Monte RN - 10/17/2021 5:44 PM CST Prescription approved per [facility] Refill Protocol. Next 5 appointments (look out 90 days) Nov 15, 2021 1:40 PM (Arrive by 1:20 PM) Adult Preventative Visit with Luh Acharya PA-C [facility] [address] [place] [address]. [facility] [phone] Nancy Monte RN [facility] POINT PEN ASSEMBLY MACHINE OPERATOR documented in this encounter Plan [...] documented as of this encounter Care Teams Diet Assistant Relationship Specialty Start Date End Date Clinic - [facility] [address] [place] [address] [id number] PCP - General 10/06/20 11/20/21 Luh Acharya PA-C [address] [place] [address] [phone] PCP - General Family Medicine 11/21/21 01/02/23 Toma Arguello NP [place] [address] [place], [place] 453877 Nurse Practitioner Nurse Practitioner Psych/Mental Health 04/11/17 Laura Us MD [address] 810107 Gastroenterology 12/20/18 Haven Buckner, QA AUDITOR [address] [place] [address] [phone] Assigned PCP 05/22/21 11/26/21 Jenise España MD Assigned Heart and Vascular Provider 07/24/21 11/17/22 Tierra Cancino PA-C [address] [place] [address] Physician Continuing Education Instructor Urology 11/17/21 Luh Acharya PA-C [facility] [place] [address] Assigned PCP 11/27/21 12/31/21 Tierra Cancino PA-C [address] [place] [address] [place] [address] Assigned Surgical Provider 12/11/21 06/08/23 Haven Buckner, QA AUDITOR [address] [place] [address] Assigned PCP 01/01/22 12/22/22 Luh Acharya PA-C [address] [place] [address], [place] [address] Assigned PCP 12/23/22 05/18/23 Haven Buckner, QA AUDITOR [facility] [place] [address] Assigned PCP 05/19/23 02/05/25 documented as of this encounter
--- OUTSIDE RECORDS SUMMARY | 2025-04-03 06:44 | XMS_ITS | Encounter Summary ---
Author Organization [place] Address [address] [place] [address] Care Team Providers Care Immigration Services Officer Name Role Phone Toma Arguello SWAGE TOOLSETTER Unavailable [phone] Laura Us MD Unavailable [facility] Primary Care Provider Haven Buckner IN HOME BABY SITTER Unavailable [phone] Jenise España MD Unavailable Unavailable Tierra Cancino-C Unavailable [phone] Luh Acharya-C Primary Care Provider + Luh Acharya-C Unavailable +[phone] Tierra Cancino-C Unavailable [phone] Haven Buckner IN HOME BABY SITTER Unavailable +[phone] Luh AcharyaC Unavailable +[phone] Haven Buckner CNP Unavailable [phone] Encounter Details Date Type Department Care Team (Late st Contact Info) Description 10/23/2021 [facility] [address] [address] Shivani Sparrow RN Social History [...] AM CDT Legal Sex Female 3:41 AM BUSINESS DEVELOPMENT CONSULTANT Gender Identity Female 01/18/2019 9:01 AM CDT [...] COVID-19? No / Unsure 10/13/2021 3:21 PM BUSINESS DEVELOPMENT CONSULTANT documented as of this encounter Plan of Treatment Not on file documented as of this encounter Visit Diagnoses Not on filedocumented in this encounter Additional Health Concerns Infection Onset Date Last Indicated Resolved Time Rule Out COVID-19 12/19/2021 12/19/2021 12/20/2021 1:02 PM CDT Assessment Noted Time PHQ-9 Depression Total Score: 5 10/25/19 22 7:03 AM BUSINESS DEVELOPMENT CONSULTANT documented as of this encounter Care Teams Immigration Services Officer Relationship Specialty Start Date End Date Clinic - [address] [address]555[address] PCP - General 10/06/20 11/20/21 Luh Acharya PA-C [address] [place] [address] [phone] PCP - General Family Medicine 11/21/21 01/02/23 Toma Arguello NP [facility] [address] [place] [address] Nurse Practitioner Nurse Practitioner Psych/Mental Health 04/11/17 Laura Us MD [place] [address] [place] [address] Gastroenterology 12/20/18 Haven Buckner, IN HOME BABY SITTER [address] [place] [address] [phone] Assigned PCP 05/22/21 11/26/21 Jenise España MD Assigned Heart and Vascular Provider 07/24/21 11/17/22 Tierra Cancino PA-C [address] [place] [address] Physician Radio Dispatcher Urology 11/17/21 Luh Acharya PA-C [address] [place] [address] Assigned PCP 11/27/21 12/31/21 Tierra Cancino PA-C [address] [facility] [address] [place] [address] Assigned Surgical Provider 12/11/21 06/08/23 Haven Buckner, NICOLE [address] [place] [address] Assigned PCP 01/01/22 12/22/22 Luh Acharya PA-C [address] [place] [address] Assigned PCP 12/23/22 05/18/23 Haven Buckner, IN HOME BABY SITTER [address] [place] [address] Assigned PCP 05/19/23 02/05/25 documented as of this encounter
--- OUTSIDE RECORDS SUMMARY | 2025-04-03 06:44 | XMS_ITS | Encounter Summary ---
Author Organization [place] Address [address] [facility] [place] [address] Care Team Providers Care Supply Chain Generalist Name Role Phone Kathy Glover MD Primary Care Provider Toma Arguello NP Unavailable [phone] Kathy Glover MD Unavailable [phone] Kathy Glover MD Unavailable [phone] Laura Us MD Unavailable Luh Acharya PA-C Unavailable [phone] Kathy Glover MD Unavailable [phone] Luh Acharya PA-C Unavailable +[phone] Edward Marlow MD Unavailable [facility] Primary Care Provider Jas Bojorquez DO Unavailable [phone] Haven Buckner CNP Unavailable Jenise España MD Unavailable Unavailable Tierra CancinoC Unavailable Luh Acharya PA-C Primary Care Provider + Luh Acharya PA-C Unavailable Barak Tierra Man PA-C Unavailable [phone] BucknerHaven lofton CNP Unavailable [phone] Luh Acharya PA-C Unavailable [phone] BucknerHaven lofton CNP Unavailable [phone] Reason for Visit * Reason Comments Medication Refill Gabapentin Encounter Details Date Type Department Care Team (Late st Contact Info) Description 03/05/[address] [address] [place] [address] [place] [address] [phone] Medication Refill (Gabapentin) Social History Tobacco Use Types Packs/Day Years Used Date Smoking Tobacco: Former Cigarettes 1 20 Smokeless Tobacco: Never Alcohol Use Standard Drinks/Week Comments Yes 0 (1 standard drink = 0.6 oz pur e alcohol) 1 glass wine daily Comments No Sex and Gender Information Value Date Recorded Sex Assigned at Female 01/18/2019 9:01 AM CDT Legal Sex Female 3:41 AM SOFTWARE QUALITY ASSURANCE ENGINEER Gender Identity Female 01/18/2019 9:01 AM CDT Sexual Orientation Straight 01/18/2019 9: 01 AM CDT documented as of this encounter Miscellaneous Notes * Telephone Encounter - Gracie Gipson CMA - 03/05/2017 2:13 PM CDT Controlled Substance Refill Request for Gabapentin Problem List Complete: Yes Last Written Prescription Date: 02/07/2017 Last Fill Quantity: 90, # refills: 0 Last Office Visit with [facility] primary care provider: 02/22/17 (evisit) 01/05/17 (in- office visit) Clinic visit frequency required: Q 6 months Future Office visit: Controlled substance agreement on file: Yes: Date 01/05/17. Processing: [facility]ER checked in past 6 months? No, route [...] of this encounter Care Teams Supply Chain Generalist Relationship Specialty Start Date End Date Kathy Glover MD [address] [place] [address] PCP - General Family Practice 06/03/15 10/05/20 Kathy Glover MD [address] [place] [address] PCP - Assigned PCP 07/25/15 11/19/[address] [address] PCP - General 10/06/20 11/20/21 Luh Acharya PA-C [address] [place] [address] PCP - General Family Medicine 11/21/21 01/02/23 Toma Arguello NP [address] [address] Nurse Practitioner Nurse Practitioner Psych/Mental Health 04/11/17 Kathy Glover MD [address] [place] [address], [place] [address] Assigned PCP 07/25/15 12/20/19 Laura Us MD [address] [place] [address], [place] [address] Gastroenterology 12/20/18 Luh Acharya PA-C [address] [place] [address], [place] [phone] Assigned PCP 12/21/19 01/17/20 Kathy Glover MD [address] [place] [address] Assigned PCP 01/18/20 06/19/20 Luh Acharya, REFUGIO [address] [place] [address] [phone] Assigned PCP 06/20/20 03/31/21 Edward Marlow MD [facility] [place] [address] Assigned Surgical Provider 07/09/20 07/31/20 Jas Bojorquez DO [address] [place] [address] 615902 Assigned PCP 04/01/21 05/21/21 Haven Buckner, [employer] BOATMAN [address] [place] [address] Assigned PCP 05/22/21 11/26/21 Jenise España MD Assigned Heart and Vascular Provider 07/24/21 11/17/22 Tierra Cancino PA-C [address] [place] [address] Physician Upholsterer Assembly Line Urology 11/17/21 Luh Acharya PA-C [address] [place] [address], [place] [address] Assigned PCP 11/27/21 12/31/21 Tierra Cancino PA-C [address] [place] [address] Assigned Surgical Provider 12/11/21 06/08/23 Haven Buckner, NICOLE [address] [place] [address], [place] [address] Assigned PCP 01/01/22 12/22/22 Luh Acharya PA-C [address] [place] [address] Assigned PCP 12/23/22 05/18/23 Haven Buckner, [employer]IVERS [employer] LAKES BOATMAN [address] [place] [address], [place] [address] Assigned PCP 05/19/23 02/05/25 documented as of this encounter
--- OUTSIDE RECORDS SUMMARY | 2025-04-03 06:44 | XMS_ITS | Encounter Summary ---
Author Organization [place] Address [address] [facility] [place] [address] Care Team Providers Care Broomcorn Sorter Name Role Phone Toma Arguello YESICA Unavailable [phone] Laura Us MD Unavailable Luh Acharya-C Unavailable + [phone] [facility] Primary Care Provider Jas Bojorquez DO Unavailable [phone] Haven Buckner CNP Unavailable [phone] Jenise España MD Unavailable Unavailable Tierra Cancino-C Unavailable Luh Acharya-C Primary Care Provider + Luh Acharya-C Unavailable + [phone] Tierra Cancino-C Unavailable [phone] Haven Buckner CNP Unavailable +[phone] Luh Acharya-C Unavailable + [phone] Haven Buckner CNP Unavailable [phone] Reason for Visit * Reason Onset Date Comments MyChart Communication 12/22/2020 Encounter Details Date Type Department Care Team (Late st Contact Info) Description 12/22/2020 MyC Medical Advice [address] [phone] Luh Acharya PA-C [address] [place] [address] [id number] MyChart Communication Social History Tobacco Use Types [...] AM CDT Legal Sex Female 3:41 AM POLYMERIZATION SUPERVISOR Gender Identity Female 01/18/2019 9:01 AM [...] OV/VV Awaiting reply. Juan Pablo Hernandez RN [facility] [place] Triage * Telephone Encounter - Haven Navarro [...] last office notes. Persistent insomnia- managed by [facility] Clinic of Neurology - Dr. Nash [...] advise Thank you Manisha Patel RN, BSN [place] Triage documented in this encounter Plan of [...] Total Score: 1 07/27/20 20 2:05 PM POLYMERIZATION SUPERVISOR documented as of this encounter Care Teams Broomcorn Sorter Relationship Specialty Start Date End Date Clinic - [facility] [address] [place] [address] 124382 PCP - General 10/06/20 11/20/21 Luh Acharya PA-C [address] [place] [address] PCP - General Family Medicine 11/21/21 01/02/23 Toma Arguello NP [place] [address] [place] [address] Nurse Practitioner Nurse Practitioner Psych/Mental Health 04/11/17 Laura Us MD [place] [address] [place] [address] Gastroenterology 12/20/18 Luh Acharya PA-C [address] [place] [address] 329872 Assigned PCP 06/20/20 03/31/21 Jas Bojorquez DO [address] [place] [address] 579422 Assigned PCP 04/01/21 05/21/21 Haven Buckner, HOUSE MOVING SUPERVISOR [address] [place] [address] [phone] Assigned PCP 05/22/21 11/26/21 Jenise España MD Assigned Heart and Vascular Provider 07/24/21 11/17/22 Tierra Cancino PA-C [address] [address] Physician Casino Cashier Urology 11/17/21 Luh Acharya PA-C [address] [place] [address] Assigned PCP 11/27/21 12/31/21 Tierra Cancino PA-C [address] [place] [address] Assigned Surgical Provider 12/11/21 06/08/23 Haven Buckner, HOUSE MOVING SUPERVISOR [address] [place] [address] Assigned PCP 01/01/22 12/22/22 Luh Acharya PA-C [address] [place] [address] Assigned PCP 12/23/22 05/18/23 Haven Buckner, HOUSE MOVING SUPERVISOR [address] [place] [address] Assigned PCP 05/19/23 02/05/25 documented as of this encounter
--- OUTSIDE RECORDS SUMMARY | 2025-04-03 06:44 | XMS_ITS | Encounter Summary ---
Author Organization [place] Address [address] [facility] [place] [address] Care Team Providers Care Tabulating Supervisor Name Role Phone Toma Arguello YESICA Unavailable [phone] Laura Us MD Unavailable Jenise España MD Unavailable Unavailable Tierra Cancino PA-C Unavailable [phone] Luh Acharya PA-C Primary Care Provider + Luh Acharya PA-C Unavailable Tierra Cancino PA-C Unavailable Haven Buckner CNP Unavailable [phone] Luh Acharya PA-C Unavailable Haven Buckner CNP Unavailable Encounter Details Date Type Department Care Team (Late st Contact Info) Description 11/29/2021 MyC Medical Advice [address] [place] [phone] Luh Acharya PA-C [address] [place] [address] Social History Tobacco Use Types Packs/Day [...] AM CDT Legal Sex Female 3:41 AM RADIO RIGGER Gender Identity Female 01/18/2019 9:01 AM CDT [...] advise Thank you Manisha Patel RN, BSN [place] Triage documented in this encounter Plan of Treatment Not on file documented as of this encounter Visit Diagnoses Not on filedocumented in this encounter Additional Health Concerns Infection Onset Date Last Indicated Resolved Time Rule Out COVID-19 12/19/2021 12/19/2021 12/20/2021 1:02 PM CDT Assessment Noted Time PHQ-9 Depression Total Score: 5 10/25/19 22 7:03 AM RADIO RIGGER documented as of this encounter Care Teams Tabulating Supervisor Relationship Specialty Start Date End Date Luh Acharya PA-C [address] [place] [address] PCP - General Family Medicine 11/21/21 01/02/23 Toma Arguello OXYGEN THERAPY TEACHER [facility] [address] [place] [address] Nurse Practitioner Nurse Practitioner Psych/Mental Health 04/11/17 Laura Us MD [facility] [address] [place] [address] Gastroenterology 12/20/18 Jenise España MD Assigned Heart and Vascular Provider 07/24/21 11/17/22 Tierra Cancino PA-C [address] [place] [address] Physician Vending Machine Host/Hostess Urology 11/17/21 Luh Acharya PA-C [address] [place] [address] Assigned PCP 11/27/21 12/31/21 Tierra Cancino PA-C [address] [place] [address] Assigned Surgical Provider 12/11/21 06/08/23 Haven Buckner, NICOLE [address] [place] [address] [phone] Assigned PCP 01/01/22 12/22/22 Luh Acharya PA-C [address] [place] [address] Assigned PCP 12/23/22 05/18/23 Haven Buckner, PROJECT MANAGEMENT ENGINEER [address] [place] [address] Assigned PCP 05/19/23 02/05/25 documented as of this encounter
--- OUTSIDE RECORDS SUMMARY | 2025-04-03 06:44 | XMS_ITS | Encounter Summary ---
Author Organization [place] Address [address] [place] [address] Care Team Providers Care Sugar Coating Hand Name Role Phone Toma Arguello YESICA Unavailable [phone] Laura Us MD Unavailable [facility] Primary Care Provider Haven Buckner CNP Unavailable [phone] Jenise España MD Unavailable Unavailable Tierra Cancino-C Unavailable [phone] Luh Acharya-C Primary Care Provider + Luh Acharya-Melissa Unavailable +[phone] Tierra Cancino-Melissa Unavailable [phone] Haven Buckner CNP Unavailable [phone] Luh Acharya PA-C Unavailable [phone] Haven Buckner CNP Unavailable [phone] Reason for Visit * Reason Comments Medication Refill Encounter Details Date Type Department Care Team (Late st Contact Info) Description 10/20/[address] [phone] Luh Acharya PA-C [address] [place] [address] Medication Refill Social History Tobacco Use Types [...] AM CDT Legal Sex Female 3:41 AM GENETICS TEACHER Gender Identity Female 01/18/2019 9:01 AM [...] COVID-19? No / Unsure 10/13/2021 3:21 PM GENETICS TEACHER documented as of this encounter Miscellaneous Notes * Telephone Encounter - Ellen Retana RN - 10/21/2021 12:09 PM GENETICS TEACHER LDL Cholesterol Calculated Date Value Ref Range Status 09/23/2020 55 <100 mg/dL Final Comment: Desirable: <100 mg/dl [place] refill of 30 days given Appointments in Next Year Nov 15, 2021 1:40 PM (Arrive by 1:20 PM) Adult Preventative Visit with Luh Acharya PA-C [facility] ([facility] ) [phone] Ellen Lemon RN [facility] Clinic Triage TICS TEACHER documented in this encounter Plan of Treatment [...] documented as of this encounter Care Teams Sugar Coating Hand Relationship Specialty Start Date End Date Clinic - [address] [address] PCP - General 10/06/20 11/20/21 Luh Acharya PA-C [address] [place] [address] [phone] PCP - General Family Medicine 11/21/21 01/02/23 Toma Arguello NP [address] [address] Nurse Practitioner Nurse Practitioner Psych/Mental Health 04/11/17 Laura Us MD [address] [address] Gastroenterology 12/20/18 Haven Buckner, NICOLE [address] [place] [address] 297482 Assigned PCP 05/22/21 11/26/21 Jenise España MD Assigned Heart and Vascular Provider 07/24/21 11/17/22 Tierra Cancino PA-C [address] [place] [address] Physician Internal Grinder Set Up Operator Urology 11/17/21 Luh Acharya PA-C [address] [place] [address] Assigned PCP 11/27/21 12/31/21 Tierra Cancino PA-C [address] [place] [address] Assigned Surgical Provider 12/11/21 06/08/23 Haven Buckner, DIGITAL INTERN [address] [place] [address] Assigned PCP 01/01/22 12/22/22 Luh Acharya PA-C [address] [place] [address] Assigned PCP 12/23/22 05/18/23 Haven Buckner, DIGITAL INTERN [address] [place] [address] Assigned PCP 05/19/23 02/05/25 documented as of this encounter
--- OUTSIDE RECORDS SUMMARY | 2025-04-03 06:44 | XMS_ITS | Encounter Summary ---
Author Organization [place] Address [address] [facility] [place] [address] Care Team Providers Care Mingler Operator Name Role Phone Kathy Glover MD Primary Care Provider Toma Arguello NP Unavailable [phone] Kathy Glover MD Unavailable +-[phone] Laura Us MD Unavailable Luh AcharyaC Unavailable + [phone] Kathy Glover MD Unavailable +[phone] Luh AcharyaC Unavailable + [phone] Edward Marlow MD Unavailable +[phone] [facility] Primary Care Provider Jas Bojorquez DO Unavailable +[phone] Haven Buckner DIRECTOR OF CASEWORK DEPARTMENT Unavailable +[phone] Jenise España MD Unavailable Unavailable Tierra Cancino-C Unavailable Luh AcharyaC Primary Care Provider + Luh AcharyaC Unavailable + [phone] Tierra CancinoC Unavailable Haven Buckner CNP Unavailable +-2 Luh Acharya PA-C Unavailable + BucknerHaven lofton CNP Unavailable +- Reason for Visit * Reason Onset Date Comments MyChart Communication 01/09/2019 fibromyalg ia testing Encounter Details Date Type Department Care Team (Latest Contact Info) Description 01/09/2019 MyC Medical Advice [address] [phone] Marcy [place], RN MyChart Communication [...] AM CDT Legal Sex Female 3:41 AM MANUFACTURING INDUSTRIAL ENGINEER Gender Identity Female 01/18/2019 9:01 AM [...] 2:36 PM CDT Noted. Dona [place] RN [place] Triage documented in this encounter Plan of [...] Total Score: 5 11/22/19 19 7:06 AM MANUFACTURING INDUSTRIAL ENGINEER documented as of this encounter Care Teams Mingler Operator Relationship Specialty Start Date End Date Kathy Glover MD [address] [place] [address] 20335 PCP - General Family Practice 06/03/15 10/05/[address] 409222 PCP - General 10/06/20 11/20/21 Luh Acharya PA-C [address] [place] [address] 616942 PCP - General Family Medicine 11/21/21 01/02/23 Toma Arguello NP [address] 388707 Nurse Practitioner Nurse Practitioner Psych/Mental Health 04/11/17 Kathy Glover MD [address] [place] [address] 742372 Assigned PCP 07/25/15 12/20/19 Laura Us MD [address] [place] [address] [phone] Gastroenterology 12/20/18 Luh Acharya, PA-C [address] [place] [address] 330062 Assigned PCP 12/21/19 01/17/20 Kathy Glover MD [address] [place] [address] 210452 Assigned PCP 01/18/20 06/19/20 Luh Acharya PA-C [address] [place] [address] 065072 Assigned PCP 06/20/20 03/31/21 Edward [place] [address] Assigned Surgical Provider 07/09/20 07/31/20 Jas Bojorquez DO [address] [place] [address] 677692 Assigned PCP 04/01/21 05/21/21 Haven Buckner, DIRECTOR OF CASEWORK DEPARTMENT [address] [place] [address] 111182 Assigned PCP 05/22/21 11/26/21 Jenise España MD Assigned Heart and Vascular Provider 07/24/21 11/17/22 Tierra Cancino PA-C [address] 329655 Physician Seniour Insight Manager Urology 11/17/21 Luh Acharya PA-C [address] [place] [address] 40333 Assigned PCP 11/27/21 12/31/21 Tierra Cancino PA-C [address] [place] [address] Assigned Surgical Provider 12/11/21 06/08/23 Haven Buckner, DIRECTOR OF CASEWORK DEPARTMENT [address] [place] [address] 29155 Assigned PCP 01/01/22 12/22/22 Luh Acharya PA-C [address] [place] [address] 16591 Assigned PCP 12/23/22 05/18/23 Haven Buckner, DIRECTOR OF CASEWORK DEPARTMENT [address] [place] [address] 59868 Assigned PCP 05/19/23 02/05/25 documented as of this encounter
--- OUTSIDE RECORDS SUMMARY | 2025-04-03 06:44 | XMS_ITS | Encounter Summary ---
Author Organization [place] Address [address] [facility] [place] [address] Care Team Providers Care Supervisor Taping Name Role Phone Kathy Glover MD Primary Care Provider Toma Arguello NP Unavailable [phone] Laura Us MD Unavailable Luh Acharya-C Unavailable +-2600 [facility] Primary Care Provider Jas Bojorquez DO Unavailable +[phone] BucknerHaven lofton RATTAN WORKER Unavailable +[phone] [phone] Jenise España MD Unavailable Unavailable Tierra Cancino-C Unavailable +[phone] Luh Acharya-C Primary Care Provider + Luh Acharya-C Unavailable + [phone] Tierra Cancino-C Unavailable +[phone] Haven Buckner RATTAN WORKER Unavailable +[phone] Luh Acharya-C Unavailable +[phone] Haven Buckner RATTAN WORKER Unavailable +[phone] Encounter Details Date Type Department Care Team (Late st Contact Info) Description 08/18/2020 MyC Medical Advice [address] [phone] Raian Thomas Social History Tobacco Use Types Packs/Day [...] AM CDT Legal Sex Female 3:41 AM ESTHETICIAN/SPA COORDINATOR Gender Identity Female 01/18/2019 9:01 AM [...] Total Score: 1 07/27/20 20 2:05 PM ESTHETICIAN/SPA COORDINATOR documented as of this encounter Care Teams Supervisor Taping Relationship Specialty Start Date End Date Kathy Glover MD [address] [place] [address] PCP - General Family Practice 06/03/15 10/05/20 [facility] [address] [place] [address] PCP - General 10/06/20 11/20/21 Luh Acharya PA-C [address] [place] [address] 9[address] PCP - General Family Medicine 11/21/21 01/02/23 Toma Arguello NP [facility] [address] [place] [address] Nurse Practitioner Nurse Practitioner Psych/Mental Health 04/11/17 Laura Us MD [place] [address] [place] [address] Gastroenterology 12/20/18 Luh Acharya PA-C [address] [place] [address] 659152 Assigned PCP 06/20/20 03/31/21 Jas Bojorquez DO [address] [place] [address] 412592 Assigned PCP 04/01/21 05/21/21 Haven Buckner, NICOLE [address] [place] [address] 385902 Assigned PCP 05/22/21 11/26/21 Jenise España MD Assigned Heart and Vascular Provider 07/24/21 11/17/22 Tierra Cancino PA-C [address] [facility] Doyle [address] [address] Physician Paint Stripper Urology 11/17/21 Luh Acharya PA-C [address] [facility] [place] [address] Assigned PCP 11/27/21 12/31/21 Tierra Cancino PA-C [address] [place] [address] [place] [address] Assigned Surgical Provider 12/11/21 06/08/23 Haven Bcukner, RATTAN WORKER [address] [facility] [place] [address] Assigned PCP 01/01/22 12/22/22 Luh Acharya PA-C [facility] [place] [address] Assigned PCP 12/23/22 05/18/23 Haven Buckner, RATTAN WORKER [facility] [place] [address] Assigned PCP 05/19/23 02/05/25 documented as of this encounter
--- OUTSIDE RECORDS SUMMARY | 2025-04-03 06:44 | XMS_ITS | Encounter Summary ---
Author Organization [place] Address [address] [facility] [place] [address] Care Team Providers Care Medical Administrator Name Role Phone Kathy Glover MD Primary Care Provider Toma Arguello NP Unavailable [phone] Laura Us MD Unavailable Luh Acharya-C Unavailable +-[phone] Kathy Glover MD Unavailable +-2600 Luh Acharya-C Unavailable + [phone] dEward Marlow MD Unavailable [phone] [facility] Primary Care Provider Jas Bojorquez DO Unavailable +[phone] Haven Buckner CNP Unavailable +[phone] Jenise España MD Unavailable Unavailable Tierra Cancino-C Unavailable +[phone] Luh Acharya-C Primary Care Provider + Luh Acharya-C Unavailable + [phone] Tierra Cancino-C Unavailable +[phone] BucknerHaven lofton CNP Unavailable + Luh Acharya PA-C Unavailable +[phone] SitaHavenzarosa maria RIVERA Unavailable +[phone] Encounter Details Date Type Department Care Team (Late st Contact Info) Description 01/09/2020 MyC Medical Advice [address] [phone] Amebr Marc Social History Tobacco Use Types Packs/Day [...] AM CDT Legal Sex Female 3:41 AM ADJUNCT PROFESSOR Gender Identity Female 01/18/2019 9:01 AM CDT [...] as of this encounter Care Teams Medical Administrator Relationship Specialty Start Date End Date Kathy Glover MD [address] [place] [address] [phone] PCP - General Family Practice 06/03/15 10/05/20 [facility] [address] [place] [address] PCP - General 10/06/20 11/20/21 Luh Acharya PA-C [address] [place] [address] 65649 PCP - General Family Medicine 11/21/21 01/02/23 Toma Arguello NP [address] [address] Nurse Practitioner Nurse Practitioner Psych/Mental Health 04/11/17 Laura Us MD [address] [address] Gastroenterology 12/20/18 Luh Acharya PA-C [address] [place] [address] 22014 Assigned PCP 12/21/19 01/17/20 Kathy Glover MD [address] [place] [address] 15932 Assigned PCP 01/18/20 06/19/20 Luh Acharya PA-C [address] [place] [address] 83981 Assigned PCP 06/20/20 03/31/21 Edward Marlow MD [address] [place] [address] Assigned Surgical Provider 07/09/20 07/31/20 Jas Bojorquez DO [address] [place] [address], [place] [address] Assigned PCP 04/01/21 05/21/21 Haven Buckner, EQUIPMENT OPERATOR WAGE HAND [address] [place] [address], [place] [address] Assigned PCP 05/22/21 11/26/21 Jenise España MD Assigned Heart and Vascular Provider 07/24/21 11/17/22 Tierra Cancino PA-C [address] [place] [address] Physician Avionic Technician Urology 11/17/21 Luh Acharya PA-C [address] [place] [address], [place] [address] Assigned PCP 11/27/21 12/31/21 Tierra Cancino PA-C [address] [place] [address] Assigned Surgical Provider 12/11/21 06/08/23 Haven Buckner, EQUIPMENT OPERATOR WAGE HAND [address] [place] [address], [place] [address] Assigned PCP 01/01/22 12/22/22 Luh Acharya PA-C [address] [place] [address], [place] [address] Assigned PCP 12/23/22 05/18/23 Haven Buckner, EQUIPMENT OPERATOR WAGE HAND [address] [place] [address] Assigned PCP 05/19/23 02/05/25 documented as of this encounter
--- OUTSIDE RECORDS SUMMARY | 2025-04-03 06:44 | XMS_ITS | Encounter Summary ---
Author Organization [place] Address [address] [facility] [place] [address] Care Team Providers Care Heat Engineering Teacher Name Role Phone Toma Arguello YESICA Unavailable [phone] Laura Us MD Unavailable [facility] Primary Care Provider Jas Bojorquez DO Unavailable [phone] BucknerHaven lofton DE IONIZER OPERATOR Unavailable +-[phone] Jenise España MD Unavailable Unavailable Tierra Cancino PA-C Unavailable [phone] Luh Acharya-C Primary Care Provider + Luh Acharya PA-C Unavailable +- [phone] Tierra Cancino PA-C Unavailable +[phone] Haven Buckner DE IONIZER OPERATOR Unavailable +2-2 26-2600 Luh Acharya-C Unavailable + [phone] Haven Buckner CNP Unavailable +2-2 26-2600 Reason for Visit * Reason Onset Date Comments [facility] Communication 04/14/2021 Encounter Details Date Type Department Care Team (Latest Contact Info) Description 04/14/2021 [facility] [address] [phone] Judd Waller Communication Social History Tobacco Use [...] AM CDT Legal Sex Female 3:41 AM CAREER DEVELOPER Gender Identity Female 01/18/2019 9:01 AM CDT [...] documented as of this encounter Care Teams Heat Engineering Teacher Relationship Specialty Start Date End Date Clinic - [address] [phone] PCP - General 10/06/20 11/20/21 Luh Acharya PA-C [address] [place] [address] [phone] PCP - General Family Medicine 11/21/21 01/02/23 Toma Arguello NP [place] [address] [place] [address] Nurse Practitioner Nurse Practitioner Psych/Mental Health 04/11/17 Laura Us MD [place] [address] [place] [address] Gastroenterology 12/20/18 Jas Bojorquez DO [address] [place] [address] [phone] Assigned PCP 04/01/21 05/21/21 Haven Buckner, NICOLE [address] [place] [address] 61286 Assigned PCP 05/22/21 11/26/21 Jenise España MD Assigned Heart and Vascular Provider 07/24/21 11/17/22 Tierra Cancino PA-C [address] [place] [address] Physician Alterations Workroom Clerk Urology 11/17/21 Luh Acharya PA-C [address] [place] [address] Assigned PCP 11/27/21 12/31/21 Tierra Cancino PA-C [address] [place] [address] Assigned Surgical Provider 12/11/21 06/08/23 Haven Buckner CNP [address] [place] [address], [place] [address] Assigned PCP 01/01/22 12/22/22 Luh Acharya PA-C [address] [place] [address] Assigned PCP 12/23/22 05/18/23 Haven Buckner, DE IONIZER OPERATOR [address] [place] [address] 53267 Assigned PCP 05/19/23 02/05/25 documented as of this encounter
--- OUTSIDE RECORDS SUMMARY | 2025-04-03 06:44 | XMS_ITS | Encounter Summary ---
Author Organization [place] Address [address] [facility] [place] [address] Care Team Providers Care Learning Administrator Name Role Phone Toma Arguello YESICA Unavailable [phone] Laura Us MD Unavailable [facility] Primary Care Provider Jas Bojorquez DO Unavailable +[phone] BucknerHaven lofton SERVICE LINE LAYER Unavailable +-[phone] Jenise España MD Unavailable Unavailable Tierra Cancino PA-C Unavailable [phone] Luh Acharya-C Primary Care Provider + Luh Acharya-C Unavailable + [phone] Tierra Cancino-C Unavailable +[phone] Haven Buckner SERVICE LINE LAYER Unavailable +2-2 [phone] Luh Acharya-C Unavailable + [phone] Haven Buckner CNP Unavailable +-2 26-2600 Encounter Details Date Type Department Care Team (Late st Contact Info) Description 04/15/2021 [facility] Medical Advice [address] [place] [address] Luh Acharya PA-C [address] [place] [address] [phone] Social History Tobacco Use Types Packs/Day Years [...] AM CDT Legal Sex Female 3:41 AM VOLCANOLOGIST Gender Identity Female 01/18/2019 9:01 AM CDT [...] sent Awaiting reply Manisha Patel RN, BSN [facility] Triage documented in this [...] documented as of this encounter Care Teams Learning Administrator Relationship Specialty Start Date End Date Clinic - [facility] [address] [address] PCP - General 10/06/20 11/20/21 Luh Acharya PA-C [address] [place] [address] PCP - General Family Medicine 11/21/21 01/02/23 Toma Arguello, SENIOR DATA ANALYST [place] [address] [place] [address] Nurse Practitioner Nurse Practitioner Psych/Mental Health 04/11/17 Laura Us MD [place] [address] [place] [address] Gastroenterology 12/20/18 Jas Bojorquez DO [address] [place] [address] Assigned PCP 04/01/21 05/21/21 Haven Buckner, NICOLE [address] [place] [address] 420[address] Assigned PCP 05/22/21 11/26/21 Jenise España MD Assigned Heart and Vascular Provider 07/24/21 11/17/22 Tierra Cancino PA-C [address] [place], [place] 365[address] Physician Air Brush Decorator Urology 11/17/21 Luh Acharya PA-C [address] [place] [address] Assigned PCP 11/27/21 12/31/21 Tierra Cancino PA-C [address] [place] [address] Assigned Surgical Provider 12/11/21 06/08/23 Haven Buckner, SERVICE LINE LAYER [address] [place] [address] Assigned PCP 01/01/22 12/22/22 Luh Acharya PA-C [address] [place] [address] Assigned PCP 12/23/22 05/18/23 Haven Buckner, SERVICE LINE LAYER [address] [place] [address] 19251 Assigned PCP 05/19/23 02/05/25 documented as of this encounter
--- OUTSIDE RECORDS SUMMARY | 2025-04-03 06:44 | XMS_ITS | Encounter Summary ---
Author Organization [place] Address [address] [place] [address] Care Team Providers Care Salvage Inspector Name Role Phone Kathy Glover MD Primary Care Provider Toma Arguello NP Unavailable [phone] Laura Us MD Unavailable Luh Acharya PA-C Unavailable +-[phone] Edward Marlow MD Unavailable [phone] [facility] Primary Care Provider Jas Bojorquez DO Unavailable +[phone] BucknerHaven lofton COST ESTIMATING MANAGER Unavailable +-2 [phone] Jenise España MD Unavailable Unavailable Tierra Cancino PA-C Unavailable [phone] Luh Acharya PA-C Primary Care Provider + Luh Acharya-C Unavailable +-2600 Tierra Cancino PA-C Unavailable Haven Buckner CNP Unavailable +-2 [phone] Luh Acharya-C Unavailable Haven Buckner COST ESTIMATING MANAGER Unavailable Encounter Details Date Type Department Care Team (Late st Contact Info) Description 07/23/2020 MyC Medical Advice [address] [phone] Juan Pablo Hinton RN Social History Tobacco [...] AM CDT Legal Sex Female 3:41 AM UNIT NURSE Gender Identity Female 01/18/2019 9:01 AM CDT [...] Total Score: 1 07/27/20 20 2:05 PM UNIT NURSE documented as of this encounter Care Teams Salvage Inspector Relationship Specialty Start Date End Date Kathy Glover MD [address] [place] [address] PCP - General Family Practice 06/03/15 10/05/20 Clinic - [address] 910472 PCP - General 10/06/20 11/20/21 Luh Acharya PA-C [address] [place] [address] PCP - General Family Medicine 11/21/21 01/02/23 Toma Arguello NP [address] [address] Nurse Practitioner Nurse Practitioner Psych/Mental Health 04/11/17 Laura Us MD [address] [address] Gastroenterology 12/20/18 Luh Acharya PA-C [address] [place] [address] Assigned PCP 06/20/20 03/31/21 Edward Marlow MD [address] [place] [address] Assigned Surgical Provider 07/09/20 07/31/20 Jas Bojorquez DO [address] [place] [address] 40517 Assigned PCP 04/01/21 05/21/21 Haven Buckner, COST ESTIMATING MANAGER [address] [place] [address] 03275 Assigned PCP 05/22/21 11/26/21 Jenise Epsaña MD Assigned Heart and Vascular Provider 07/24/21 11/17/22 Tierra Cancino PA-C [address] [place] [address] Physician Customer Energy Specialist Urology 11/17/21 Luh Acharya PA-C [address] [place] [address] Assigned PCP 11/27/21 12/31/21 Tierra Cancino PA-C [address] [place] [address] Assigned Surgical Provider 12/11/21 06/08/23 Haven Buckner, NICOLE [address] [place] [address] 89683 Assigned PCP 01/01/22 12/22/22 Luh Acharya PA-C [address] [place] [address] Assigned PCP 12/23/22 05/18/23 Haven Buckner, NICOLE [address] [place] [address] Assigned PCP 05/19/23 02/05/25 documented as of this encounter
--- OUTSIDE RECORDS SUMMARY | 2025-04-03 06:44 | XMS_ITS | Encounter Summary ---
Author Organization [place] Address [address] [facility] [place] [address] Care Team Providers Care Fire Alarm Operator Name Role Phone Toma Arguello YESICA [...] (Late st Contact Info) Description 09/07/[address] [phone] Luh Acharya PA-C [address] [place] [address] [phone] Medication Refill Social History Tobacco Use Types [...] CDT Legal Sex Female 3:41 AM SENIOR SOLUTIONS WORKFLOW CONSULTANT Gender Identity Female 01/18/2019 9:01 AM [...] one refill on file Ellen Lemon RN [facility] Triage OR SOLUTIONS WORKFLOW CONSULTANT documented in this encounter Plan of Treatment Not on file documented as of this encounter Visit Diagnoses Diagnosis Gastroesophageal reflux disease, unspecified whether esophagitis present documented in this encounter Additional Health Concerns Assessment Noted Time PHQ-9 Depression Total Score: 5 10/25/19 22 7:03 AM SENIOR SOLUTIONS WORKFLOW CONSULTANT documented as of this encounter Care Teams Fire Alarm Operator Relationship Specialty Start Date End Date Luh Acharya PA-C [address] [place] [address] PCP - General Family Medicine 11/21/21 01/02/23 Toma Arguello NP [address] [address] Nurse Practitioner Nurse Practitioner Psych/Mental Health 04/11/17 Laura Us MD [address] [place] [address] Gastroenterology 12/20/18 Jenise España MD Assigned Heart and Vascular Provider 07/24/21 11/17/22 Tierra Cancino PA-C [address] [place] [address] Physician Stain Remover Urology 11/17/21 Tierra Cancino PA-C [address] [place] [address] Assigned Surgical Provider 12/11/21 06/08/23 Haven Buckner CNP [address] [place] [address] Assigned PCP 01/01/22 12/22/22 Luh Acharya PA-C [address] [place] [address] Assigned PCP 12/23/22 05/18/23 Haven Buckner CNP [address] [place] [address]157 Assigned PCP 05/19/23 02/05/25 documented as of this encounter
--- OUTSIDE RECORDS SUMMARY | 2025-04-03 06:44 | XMS_ITS | Encounter Summary ---
Author Organization [place] Address [address] [facility] [place] [address] Care Team Providers Care Stone Circular Sawyer Name Role Phone Toma Arguello YESICA Unavailable [phone] Laura Us MD Unavailable Jenise España MD Unavailable Unavailable Tierra CancinoC Unavailable Luh Acharya PA-C Primary Care Provider + Luh Acharya PA-C Unavailable Tierra CancinoC Unavailable Haven Buckner CNP Unavailable +[phone] Luh Acharya PA-C Unavailable [phone] Haven Buckner CNP Unavailable Reason for Visit * Reason Onset Date Comments MyChart Communication 12/06/2021 Encounter Details Date Type Department Care Team (Late st Contact Info) Description 12/06/2021 [facility] Advice [address] [phone] Luh Acahrya PA-C [address] [place] [address] MyChart Communication Social History Tobacco Use Types [...] AM CDT Legal Sex Female 3:41 AM CHARGE ATTENDANT Gender Identity Female 01/18/2019 9:01 AM [...] Total Score: 5 10/25/19 22 7:03 AM CHARGE ATTENDANT documented as of this encounter Care Teams Stone Circular Sawyer Relationship Specialty Start Date End Date Luh Acharya PA-C [address] [place] [address] PCP - General Family Medicine 11/21/21 01/02/23 Toma Arguello NP [place] [address] [place] [address] Nurse Practitioner Nurse Practitioner Psych/Mental Health 04/11/17 Laura Us MD [place] [address] [place] [address] Gastroenterology 12/20/18 Jenise España MD Assigned Heart and Vascular Provider 07/24/21 11/17/22 Tierra Cancino PA-C [address] [place] [address] Physician Car Sales Consultant Urology 11/17/21 Luh Acharya PA-C [address] [place] [address] Assigned PCP 11/27/21 12/31/21 Tierra Cancino PA-C [address] [place] [address] Assigned Surgical Provider 12/11/21 06/08/23 Haven Buckner CNP [address] [place] [address] Assigned PCP 01/01/22 12/22/22 Luh Acharya PA-C [address] [place] [address] Assigned PCP 12/23/22 05/18/23 Haven Buckner CNP [address] [place] [address] Assigned PCP 05/19/23 02/05/25 documented as of this encounter
--- OUTSIDE RECORDS SUMMARY | 2025-04-03 06:44 | XMS_ITS | Encounter Summary ---
Author Organization [place] Address [address] [facility] [place] [address] Care Team Providers Care Change Attendant Name Role Phone Toma Arguello YESICA Unavailable [phone] Laura Us MD Unavailable [facility] Primary Care Provider Haven Buckner CNP Unavailable +-2 Jenise España MD Unavailable Unavailable Tierra Cancino-C Unavailable [phone] Luh Acharya-C Primary Care Provider + Luh Acharya-C Unavailable +[phone] Tierra Cancino-C Unavailable [phone] Haven Buckner CNP Unavailable +[phone] Luh AcharyaC Unavailable +[phone] Haven Buckner CNP Unavailable [phone] Reason for Visit * Reason Comments Medication Refill Encounter Details Date Type Department Care Team (Late st Contact Info) Description 10/19/2021 [place] [address] [facility] [address] [place] [phone] Luh Acharya PA-C [address] [place], [place] 8[address] Medication Refill Social History Tobacco Use Types [...] AM CDT Legal Sex Female 3:41 AM MIDDLE STITCHER Gender Identity Female 01/18/2019 9:01 AM CDT [...] COVID-19? No / Unsure 10/13/2021 3:21 PM MIDDLE STITCHER documented as of this encounter Miscellaneous Notes * Telephone Encounter - Juan Pablo Hinton RN - 10/20/2021 1:29 PM CST Prescription approved per [facility] Refill Protocol. Juan Pablo Hinton RN [facility] Triage LE STITCHER documented in this encounter Plan of Treatment [...] documented as of this encounter Care Teams Change Attendant Relationship Specialty Start Date End Date Clinic - [facility] [address] [place] [address] [phone] PCP - General 10/06/20 11/20/21 Luh Acharya PA-C [address] [place] [address] PCP - General Family Medicine 11/21/21 01/02/23 Toma Arguello NP [place] [address] [place], [place] 9038[address] Nurse Practitioner Nurse Practitioner Psych/Mental Health 04/11/17 Laura Us MD [place] [place], [place] 7[address] Gastroenterology 12/20/18 Haven Buckner, PATIENT INTAKE REPRESENTATIVE [address] [place] [address] [phone] Assigned PCP 05/22/21 11/26/21 Jenise España MD Assigned Heart and Vascular Provider 07/24/21 11/17/22 Tierra Cancino PA-C [address] [address] Physician Bowstring Maker Urology 11/17/21 Luh Acharya PA-C [address] [place] [address] Assigned PCP 11/27/21 12/31/21 Tierra Cancino PA-C [address] [place] [place] [address] Assigned Surgical Provider 12/11/21 06/08/23 Haven Buckner, PATIENT INTAKE REPRESENTATIVE [address] [place] [address], [place] [address] Assigned PCP 01/01/22 12/22/22 Luh Acharya PA-C [address] [place] [address], [place] 633272 Assigned PCP 12/23/22 05/18/23 Haven Buckner, PATIENT INTAKE REPRESENTATIVE [address] [place] [address] Assigned PCP 05/19/23 02/05/25 documented as of this encounter
--- OUTSIDE RECORDS SUMMARY | 2025-04-03 06:44 | XMS_ITS | Encounter Summary ---
Author Organization [place] Address [address] [facility] [place] [address] Care Team Providers Care Acetylene Burner Name Role Phone Kathy Glover MD Primary Care Provider Toma Arguello NP Unavailable [phone] Kathy Glover MD Unavailable +[phone] Laura Us MD Unavailable Luh AcharyaC Unavailable + [phone] Kathy Glover MD Unavailable +[phone] Luh AcharyaC Unavailable + [phone] Edward Marlow MD Unavailable [phone] [facility] Primary Care Provider Jas Bojorquez DO Unavailable +[phone] Haven Buckner MASTER FISHER Unavailable +[phone] Jenise España MD Unavailable Unavailable Tierra Cancino-C Unavailable Luh AcharyaC Primary Care Provider + uLh AcharyaC Unavailable + [phone] Tierra Cancino PA-C Unavailable Haven Buckner CNP Unavailable [phone] Marck Luhkirsty BAUTISTAC Unavailable [phone] BucknerHaven lofton MASTER FISHER Unavailable +[phone] Reason for Visit * Reason Onset Date Comments MyChart Communication 01/17/2019 Encounter Details Date Type Department Care Team (Late st Contact Info) Description 01/17/2019 MyC Medical Advice [address] [address] [place] [address] [place] [address] MyChart Communication Social History Tobacco Use [...] AM CDT Legal Sex Female 3:41 AM BUILDING ILLUMINATING ENGINEER Gender Identity Female 01/18/2019 9:01 AM [...] AM CDT mychart sent. Dona Smith RN [place] Triage * Telephone Encounter - Renay Barlow RN - 01/17/2019 4:55 PM CDT MyChart Message sent Awaiting response Renay Barlow RN [place] Triage * Telephone Encounter - Coty Doan RN - 01/17/2019 9:40 AM CDT Mychart note sent to patient. TAYLA Simmons, RN, N [facility] Triage ) [phone] documented in this encounter Plan of Treatment Not on file documented as of this encounter Visit Diagnoses Not on filedocumented in this encounter Additional Health Concerns Infection Onset Date Last Indicated Resolved Time Rule Out COVID-19 06/06/2021 06/06/2021 06/06/2021 5:30 PM CDT Rule Out COVID-19 12/19/2021 12/19/2021 12/20/2021 1:02 PM CDT Assessment Noted Time PHQ-9 Depression Total Score: 5 11/22/19 19 7:06 AM BUILDING ILLUMINATING ENGINEER documented as of this encounter Care Teams Acetylene Burner Relationship Specialty Start Date End Date Kathy Glover MD [address] [place] [address] [id number] PCP - General Family Practice 06/03/15 10/05/[address] [address] PCP - General 10/06/20 11/20/21 Luh Acharya PA-C [address] [place] [address] 248642 PCP - General Family Medicine 11/21/21 01/02/23 Toma Arguello NP [address] [address] Nurse Practitioner Nurse Practitioner Psych/Mental Health 04/11/17 Kathy Glover MD [address] [place] [address] Assigned PCP 07/25/15 12/20/19 Laura Us MD [address] [place] [address] Gastroenterology 12/20/18 Luh Acharya PA-C [address] [place] [address] Assigned PCP 12/21/19 01/17/20 Kathy Glover MD [address] [place] [address] Assigned PCP 01/18/20 06/19/20 Luh Acharya PA-C [address] [place] [address] Assigned PCP 06/20/20 03/31/21 [place] [address] Assigned Surgical Provider 07/09/20 07/31/20 Jas Bojorquez DO [address] [place] [address] Assigned PCP 04/01/21 05/21/21 Haven Buckner, MASTER FISHER [address] [place] [address], [place] [address] Assigned PCP 05/22/21 11/26/21 Jenise España MD Assigned Heart and Vascular Provider 07/24/21 11/17/22 Tierra Cancino PA-C [address] [place] [address] Physician Net Repairer Urology 11/17/21 Luh Acharya PA-C [address] [place] [address], [place] [address] Assigned PCP 11/27/21 12/31/21 Tierra Cancino PA-C [address] [place] [address] Assigned Surgical Provider 12/11/21 06/08/23 Haven Buckner, NICOLE [address] [place] [address], [place] [address] Assigned PCP 01/01/22 12/22/22 Luh Acharya PA-C [address] [place] [address], [place] [address] Assigned PCP 12/23/22 05/18/23 Haven Buckner, NICOLE [address] [place] [address], [place] [address] Assigned PCP 05/19/23 02/05/25 documented as of this encounter
--- OUTSIDE RECORDS SUMMARY | 2025-04-03 06:44 | XMS_ITS | Encounter Summary ---
Author Organization [place] Address [address] [facility] [place] [address] Care Team Providers Care Pondman Name Role Phone Kathy Glover MD Primary Care Provider Toma Arguello NP Unavailable [phone] Laura Us MD Unavailable Kathy Glover MD Unavailable [phone] Luh Acharya-C Unavailable +-[phone] Edward Marlow MD Unavailable [phone] [facility] Primary Care Provider Jas Bojorquez DO Unavailable +[phone] Haven Buckner HULL GRINDER Unavailable +[phone] Jenise España MD Unavailable Unavailable Tierra Cancino-C Unavailable [phone] Luh Acharya PA-C Primary Care Provider + Luh Acharya-C Unavailable +-[phone] Tierra Cancino-C Unavailable [phone] Haven Buckner CNP Unavailable +-[phone] Luh Acharya PA-C Unavailable BucknerHavenflakito RIVERA Unavailable [phone] Encounter Details Date Type Department Care Team (Late st Contact Info) Description 04/14/2020 MyC Medical Advice [address] [phone] Kathy Glover MD [address] [place] [address] Social History Tobacco Use Types Packs/Day [...] AM CDT Legal Sex Female 3:41 AM SUPERVISOR TAN ROOM Gender Identity Female 01/18/2019 9:01 AM CDT [...] documented as of this encounter Care Teams Pondman Relationship Specialty Start Date End Date Kathy Glover MD [address] [place] [address] PCP - General Family Practice 06/03/15 10/05/20 Clinic - [address] [id number] PCP - General 10/06/20 11/20/21 Luh Acharya PA-C [address] [place] [address] PCP - General Family Medicine 11/21/21 01/02/23 Toma Arguello NP [address] [address] Nurse Practitioner Nurse Practitioner Psych/Mental Health 04/11/17 Laura Us MD [address] [address] Gastroenterology 12/20/18 Kathy Glover MD [address] [place] [address] Assigned PCP 01/18/20 06/19/20 Luh Acharya PA-C [address] [place] [address] Assigned PCP 06/20/20 03/31/21 Edward Marlow MD [address] [place] [address] Assigned Surgical Provider 07/09/20 07/31/20 Jas Bojorquez DO [address] [place] [address] Assigned PCP 04/01/21 05/21/21 Haven Buckner, NICOLE [address] [place] [address], [place] [address] Assigned PCP 05/22/21 11/26/21 Jenise España MD Assigned Heart and Vascular Provider 07/24/21 11/17/22 Tierra Cancino PA-C [address] [place] [address] Physician Gardener Florist Urology 11/17/21 Luh Acharya PA-C [address] [place] [address] Assigned PCP 11/27/21 12/31/21 Tierra Cancino PA-C [address] [place] [address] Assigned Surgical Provider 12/11/21 06/08/23 Haven Buckner CNP [address] [place] [address], [place] [address] Assigned PCP 01/01/22 12/22/22 Luh Acharya PA-C [address] [place] [address], [place] [address] Assigned PCP 12/23/22 05/18/23 Haven Buckner, NICOLE [address] [place] [address] Assigned PCP 05/19/23 02/05/25 documented as of this encounter
--- OUTSIDE RECORDS SUMMARY | 2025-04-03 06:44 | XMS_ITS | Encounter Summary ---
Author Organization [place] Address [address] [facility] [place] [address] Care Team Providers Care Hvac Lead Name Role Phone Toma Arguello YESICA Unavailable [phone] Luara Us MD Unavailable [facility] Primary Care Provider Haven Buckner CNP Unavailable +-2 Jenise España MD Unavailable Unavailable Tierra Cancino-C Unavailable [phone] Luh Acharya-C Primary Care Provider + Luh Acharya-C Unavailable +[phone] Tierra Cancino-C Unavailable [phone] Haven Buckner CNP Unavailable +-[phone] Luh Acharya PA-C Unavailable +[phone] Haven Buckner CNP Unavailable +[phone] Reason for Visit * Reason Comments Medication Refill Encounter Details Date Type Department Care Team (Late st Contact Info) Description 07/20/2021 [place] [address] [facility] [address] [place] [address] Luh Acharya PA-C [address] [place] [address] 744002 Medication Refill Social History Tobacco Use Types [...] AM CDT Legal Sex Female 3:41 AM AD COMPOSITOR Gender Identity Female 01/18/2019 9:01 AM CDT [...] per RN protocol Manisha Patel RN, BSN Center Triage documented in this encounter Plan [...] documented as of this encounter Care Teams Hvac Lead Relationship Specialty Start Date End Date Clinic - [address] [place] [address] PCP - General 10/06/20 11/20/21 Luh Acharya PA-C [address] [place] [address] PCP - General Family Medicine 11/21/21 01/02/23 Toma Arguello, LEASE ANALYST [place] [place] [address] Nurse Practitioner Nurse Practitioner Psych/Mental Health 04/11/17 Laura Us MD [address] [address] Gastroenterology 12/20/18 Haven Buckner, CURRICULUM AND INSTRUCTION SPECIALIST [address] [place] [address] 707202 Assigned PCP 05/22/21 11/26/21 Jenise España MD Assigned Heart and Vascular Provider 07/24/21 11/17/22 Tierra Cancino PA-C [address] [place] [address] Physician Cutch Cleaner Urology 11/17/21 Luh Acharya PA-C [address] [place] [address] Assigned PCP 11/27/21 12/31/21 Tierra Cancino PA-C [address] [place] [address] Assigned Surgical Provider 12/11/21 06/08/23 Haven Buckner, NICOLE [address] [place] [address] Assigned PCP 01/01/22 12/22/22 Luh Acharya PA-C [address] [place] [address], [place] [address] Assigned PCP 12/23/22 05/18/23 Haven Buckner, NICOLE [address] [place] [address] Assigned PCP 05/19/23 02/05/25 documented as of this encounter
--- OUTSIDE RECORDS SUMMARY | 2025-04-03 06:45 | XMS_ITS | Encounter Summary ---
Author Organization [place] Address [address] [facility] [place] [address] Care Team Providers Care Waiter/Waitress Room Service Name Role Phone Kathy Glover MD Primary Care Provider Toma Arguello NP Unavailable [phone] Kathy Glover MD Unavailable +[phone] Kathy Glover MD Unavailable [phone] Laura Us MD Unavailable Luh Acharya PA-C Unavailable +[phone] Kathy Glover MD Unavailable [phone] Luh Acharya PA-C Unavailable +[phone] Edward Marlow MD Unavailable [facility] Primary Care Provider Jas Bojorquez DO Unavailable [phone] Haven Buckner CNP Unavailable Jenise España MD Unavailable Unavailable Tierra CancinoC Unavailable Luh Acharya PA-C Primary Care Provider + Luh Acharya-C Unavailable [phone] Tierra Cancinojose guadalupe DUMONT-C Unavailable [phone] Haven Buckner PRIMARY TEACHING ASSISTANT Unavailable +[phone] Luh Acharya-C Unavailable +[phone] BucknerHaven lofton CNP Unavailable [phone] Reason for Visit * Reason Onset Date Comments Refill Request 04/18/2018 topiramate (TOPA MAX) 50 MG tablet Encounter Details Date Type Department Care Team (Late st Contact Info) Description 04/18/2018 Refill [facility] [address] [place] [address] Kathy Glover MD [address] [place] [address] Refill Request (topiramate (TOPAMAX) 50 [...] AM CDT 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 Dona Smith RN [place] Triage * Telephone Encounter - Giovanna Casey - 04/24/2018 3:24 PM CDT Left non-detailed message for patient to call back. Please schedule follow up when patient calls back. (see previous notes for details) Giovanna Casey Drugless Physician * Telephone Encounter - Tiffanie Darby [...] this from neurology? TAYLA Simmons, RN, PHN [facility]) [phone] * Telephone Encounter - Nery Chua - [...] HCT 38.9 PLT 342 For GICH ONLY: AJFZ227 = WBC, [id number] = RBC Passed - Normal ALT or [...] status migrainosus- now seeing Dr. Damian - [facility] - used to see Dr. Eliseo Dubon [facility] clinic of Neurology Migraine without aura, with [...] documented as of this encounter Care Teams Waiter/Waitress Room Service Relationship Specialty Start Date End Date Kathy Glover MD [address] [place] [address] PCP - General Family Practice 06/03/15 10/05/20 Kathy Glover MD [address] [place] [address] PCP - Assigned PCP 07/25/15 11/19/[address] [address] PCP - General 10/06/20 11/20/21 Luh Acharya PA-C [address] [place] [address] PCP - General Family Medicine 11/21/21 01/02/23 Toma Arguello NP [facility] [address] [place] [address] Nurse Practitioner Nurse Practitioner Psych/Mental Health 04/11/17 Kathy Glover MD [address] [place] [address] Assigned PCP 07/25/15 12/20/19 Laura Us MD [address] [place] [address] 141882 Gastroenterology 12/20/18 Luh Acharya PA-C [address] [place] [address] Assigned PCP 12/21/19 01/17/20 Kathy Glover MD [address] [place] [address] Assigned PCP 01/18/20 06/19/20 Luh Acharya PA-C [address] [place] [address] Assigned PCP 06/20/20 03/31/21 Edward Marlow MD [address] [place] [address] Assigned Surgical Provider 07/09/20 07/31/20 Jas Bojorquez DO [address] [place] [address] Assigned PCP 04/01/21 05/21/21 Haven Buckner, PRIMARY TEACHING ASSISTANT [address] [place] [address], [place] [address] Assigned PCP 05/22/21 11/26/21 Jenise España MD Assigned Heart and Vascular Provider 07/24/21 11/17/22 Tierra Cancino PA-C [address] [place] [address] Physician Casket Inspector Urology 11/17/21 Luh Acharya PA-C [address] [place] [address], [place] [address] Assigned PCP 11/27/21 12/31/21 Tierra Cancino PA-C [address] [place] [address] Assigned Surgical Provider 12/11/21 06/08/23 Haven Buckner, NICOLE [address] [place] [address], [place] [address] Assigned PCP 01/01/22 12/22/22 Luh Acharya PA-C [address] [place] [address], [place] [address] Assigned PCP 12/23/22 05/18/23 Haven Buckner, PRIMARY TEACHING ASSISTANT [address] [place] [address], [place] [address] Assigned PCP 05/19/23 02/05/25 documented as of this encounter
--- OUTSIDE RECORDS SUMMARY | 2025-04-03 06:45 | XMS_ITS | Clinical Summary ---
Author Organization [facility] Address [address] [place] [address] Care Team Providers Care Footwear Sales Associate Name Role Phone Elsewhere, Pcp Primary Care Provider Unavailabl e Source Comments Patient records contain information from all sites at [facility]. For routine questions regarding patient records, call [phone] during business hours, M-F 8:00 AM - 5:00 PM Central Time. 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 Gender Identity Not on file Sexual Orientation Not on file Last Filed Vital Signs Vital Sign Reading Time Taken Comments Blood Pressure 117/79 08/01/2022 2:07 PM BUTTON FACING MACHINE OPERATOR Pulse 101 08/01/2022 2:07 PM BUTTON FACING MACHINE OPERATOR Temperature 36.8 C (98.2 F) 07/10/2022 4:00 AM CDT Respiratory Rate 18 07/10/2022 4:00 AM CDT Oxygen Saturation 90% 07/10/2022 7:00 AM CDT Inhaled Oxygen Concentration - - Weight 96.1 kg (211 lb 13.8 oz) 08/01/2022 2:07 PM BUTTON FACING MACHINE OPERATOR Height 166.5 cm (5' 5.55) 08/01/2022 2:07 PM CS T Body Mass Index 34.67 08/01/2022 2:07 PM BUTTON FACING MACHINE OPERATOR Plan of Treatment Health Maintenance Due Date [...] M.S. LAB BLOOD ADD-ON Adalgisa l Result [facility] [address] [place] [address], [facility] NPRG [facility] [address] [place] [address] * BI Breast Screening Bilateral (01/21/2015 8:30 [...] suspected palpable masses. us Alessia Hernandez(R)(CT), RLizet(R)(M) [facility] PROC EDURES Edited Result - Final * [...] Health Maintenance Insurance [address] [place] [id number] [employer] [place] [id number] Care Teams Footwear Sales Associate Relationship Specialty Start Date End Date Elsewhere, Pcp PCP - General Internal Medicine 07/10/22
--- OUTSIDE RECORDS SUMMARY | 2025-04-03 06:45 | XMS_ITS | Encounter Summary ---
Author Organization [place] Address [address] [facility] [place] [address] Care Team Providers Care Graduate Assistant Name Role Phone Kathy Glover MD Primary Care Provider Toma Arguello NP Unavailable [phone] Kathy Glover MD Unavailable +[phone] Laura Us MD Unavailable Luh AcharyaC Unavailable + [phone] Kathy Glover MD Unavailable +[phone] Luh AcharyaC Unavailable + [phone] Edward Marlow MD Unavailable [phone] [facility] Primary Care Provider Jas Bojorquez DO Unavailable +[phone] Haven Buckner EPIC SPECIALIST Unavailable [phone] Jenise España MD Unavailable Unavailable Tierra Cancino-C Unavailable Luh AcharyaC Primary Care Provider + Luh AcharyaC Unavailable + [phone] Tierra Cancino PA-C Unavailable Haven Buckner CNP Unavailable [phone] Luh Acharya PA-C Unavailable + [phone] Haven Buckner CNP Unavailable [phone] Reason for Visit * Reason Comments Medication Refill Encounter Details Date Type Department Care Team (Late st Contact Info) Description 12/10/[address] [phone] Luh Acharya PA-C [address] [place] [address] Medication Refill Social History Tobacco Use [...] AM CDT 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 Gender Identity Female 01/18/2019 9:01 AM [...] documented as of this encounter Care Teams Graduate Assistant Relationship Specialty Start Date End Date Kathy Glover MD [address] [place] [address] PCP - General Family Practice 06/03/15 10/05/[address] 149572 PCP - General 10/06/20 11/20/21 Luh Acharya PA-C [address] [place] [address] [phone] PCP - General Family Medicine 11/21/21 01/02/23 Toma Arguello NP [address] [address] Nurse Practitioner Nurse Practitioner Psych/Mental Health 04/11/17 Kathy Glover MD [address] [place] [address] Assigned PCP 07/25/15 12/20/19 aLura Us MD [address] [place] [address] Gastroenterology 12/20/18 Luh Acharya PA-C [address] [place] [address] Assigned PCP 12/21/19 01/17/20 Kathy Glover MD [address] [place] [address] Assigned PCP 01/18/20 06/19/20 Luh cAharya PA-C [address] [place] [address] Assigned PCP 06/20/20 03/31/21 Edward Marlow MD [place] [address] Assigned Surgical Provider 07/09/20 07/31/20 Jas Bojorquez DO [address] [place] [address] Assigned PCP 04/01/21 05/21/21 Haven Buckner CNP [address] [place] [address] Assigned PCP 05/22/21 11/26/21 Jenise España MD Assigned Heart and Vascular Provider 07/24/21 11/17/22 Tierra Cancino PA-C [address] [place] [address] Physician Website Admin Urology 11/17/21 Luh Acharya PA-C [address] [place] [address] Assigned PCP 11/27/21 12/31/21 Tierra Cancino PA-C [address] [place] [address] Assigned Surgical Provider 12/11/21 06/08/23 Haven Buckner, NICOLE [address] [place] [address] Assigned PCP 01/01/22 12/22/22 Lhu Acharya PA-C [address] [place] [address] Assigned PCP 12/23/22 05/18/23 Haven Buckner, NICOLE [address] [place] [address] Assigned PCP 05/19/23 02/05/25 documented as of this encounter
--- OUTSIDE RECORDS SUMMARY | 2025-04-03 06:45 | XMS_ITS | Encounter Summary ---
Author Organization [place] Address [address] [facility] [place] [address] Care Team Providers Care Health Care Consultant Name Role Phone Kathy Glover MD Primary Care Provider Toma Arguello NP Unavailable [phone] Laura Us MD Unavailable Luh Acharya-C Unavailable [phone] [facility] Primary Care Provider Jas Bojorquez DO Unavailable [phone] [facility] [facility] HAND EXPANSION ENVELOPE MAKER Unavailable [phone] Jenise España MD Unavailable Unavailable Tierra Cancino-C Unavailable [phone] Luh Acharya-C Primary Care Provider + Luh Achayra-C Unavailable + [phone] Tierra Cancino-C Unavailable [phone] Haven Buckner HAND EXPANSION ENVELOPE MAKER Unavailable [phone] Luh Acharya-C Unavailable [phone] Haven Buckner HAND EXPANSION ENVELOPE MAKER Unavailable [phone] Encounter Details Date Type Department Care Team (Late st Contact Info) Description 09/28/2020 Orders Only [facility] [address] [place] [address] Diaz Camargo MD [facility] [address] [place] [address] Encounter for screening for other viral diseases [...] AM CDT Legal 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 No / Unsure 09/27/2020 9:59 AM DEPARTMENT SUPERVISOR documented as of this encounter Plan of Treatment Not on file documented as of this encounter Results * Asymptomatic COVID-19 Virus (Coronavirus) by PCR (10/03/2020 1:26 PM DEPARTMENT SUPERVISOR) COVID-19 Virus PCR to [facility] - Source Nasopharyngeal 10/03/2020 1:26 PM DEPARTMENT SUPERVISOR [facility] COVID-19 Virus PCR to [facility] - Result Test received-See reflex to IDDL test SARS CoV2 (COVID-19) Virus RT-PCR 10/03/2020 3:28 PM DEPARTMENT SUPERVISOR [facility] Specimen from nasopharyngeal structure (specimen) 10/03/2020 1:26 PM DEPARTMENT SUPERVISOR 10/03/2020 1:27 PM DEPARTMENT SUPERVISOR us Diaz Camargo MD LAB - MICRO GENERAL ORDERABL ES Final Result [facility], [facility] [address] [place] [address], [facility] [address] [place], [place] [address] [phone] documented in this encounter Visit Diagnoses Diagnosis Encounter for screening for other viral diseases documented in this encounter Additional Health Concerns Infection Onset Date Last Indicated Resolved Time Rule Out COVID-19 06/06/2021 06/06/2021 06/06/2021 5:30 PM CDT Rule Out COVID-19 12/19/2021 12/19/2021 12/20/2021 1:02 PM CDT Assessment Noted Time PHQ-9 Depression Total Score: 1 07/27/20 20 2:05 PM DEPARTMENT SUPERVISOR documented as of this encounter Care Teams Health Care Consultant Relationship Specialty Start Date End Date Kathy Glover MD [address] [place] [address] PCP - General Family Practice 06/03/15 10/05/[address] [address] PCP - General 10/06/20 11/20/21 Luh Acharya PA-C [address] [place] [address] PCP - General Family Medicine 11/21/21 01/02/23 Toma Arguello NP [facility] [address] [place] [address] Nurse Practitioner Nurse Practitioner Psych/Mental Health 04/11/17 Laura Us MD [address] [address] Gastroenterology 12/20/18 Luh Acharya PA-C [address] [place] [address] [id number] Assigned PCP 06/20/20 03/31/21 Jas Bojorquez DO [address] [place] [address] [id number] Assigned PCP 04/01/21 05/21/21 Haven Buckner, HAND EXPANSION ENVELOPE MAKER [address] [place] [address] [phone] Assigned PCP 05/22/21 11/26/21 Jenise España MD Assigned Heart and Vascular Provider 07/24/21 11/17/22 Tierra Cancino PA-C [address] [place] [address] Physician Mechanical Engineering Professor Urology 11/17/21 Luh Acharya PA-C [address] [place] [address] Assigned PCP 11/27/21 12/31/21 Tierra Cancino PA-C [address] [place] [address] Assigned Surgical Provider 12/11/21 06/08/23 Haven Buckner, NICOLE [address] [place] [address] Assigned PCP 01/01/22 12/22/22 Luh Acharya PA-C [address] [place] [address], [place] [address] Assigned PCP 12/23/22 05/18/23 Haven Buckner CNP [address] [place] [address], [place] [address] Assigned PCP 05/19/23 02/05/25 documented as of this encounter
--- OUTSIDE RECORDS SUMMARY | 2025-04-03 06:45 | XMS_ITS | Encounter Summary ---
Author Organization [place] Address [address] [facility] [place] [address] Care Team Providers Care Mixer Tender Name Role Phone Toma Arguello YESICA Unavailable [phone] Laura Us MD Unavailable Luh Acharya-C Unavailable [phone] [facility] Primary Care Provider Jas Bojorquez DO Unavailable [phone] Haven Buckner CNP Unavailable [phone] Jenise España MD Unavailable Unavailable Tierra Cancino-C Unavailable [phone] Luh Acharya-C Primary Care Provider + Luh Acharya-C Unavailable + [phone] Tierra Cancino-C Unavailable [phone] Haven Buckner CNP Unavailable [phone] Luh Acharya-C Unavailable +[phone] Haven Buckner CNP Unavailable [phone] Reason for Visit * Reason Comments Medication Refill Encounter Details Date Type Department Care Team (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 Order [id number] for confirmation or individual confirmation tests to [facility]. Amphetamine (d-Amphetamine) Date Value Ref Range Status [...] be used for medical purposes only. Order [id number] for confirmation or individual confirmation tests to [...] be electronically transmitted to pharmacy by provider [email or web address] Routing refill request to provider for review/approval because: Drug not on the [facility] refill protocol Renay Barlow RN [facility] documented in this encounter Plan [...] Total Score: 1 07/27/20 20 2:05 PM VETERINARY MEDICINE DOCTOR documented as of this encounter Care Teams Mixer Tender Relationship Specialty Start Date End Date Clinic - [address] [address] PCP - General 10/06/20 11/20/21 Luh Acharya PA-C [address] [place] [address] PCP - General Family Medicine 11/21/21 01/02/23 Toma Arguello COLLEGE ADMINISTRATOR [place] [address] [place] [address] Nurse Practitioner Nurse Practitioner Psych/Mental Health 04/11/17 Laura Us MD [place] [address] [place] [address] Gastroenterology 12/20/18 Luh Acharya PA-C [address] [place] [address] [phone] Assigned PCP 06/20/20 03/31/21 Jas Bojorquez DO [address] [place] [address] [phone] Assigned PCP 04/01/21 05/21/21 Haven Buckner, COILER [address] [place] [address] [id number] Assigned PCP 05/22/21 11/26/21 Jenise España MD Assigned Heart and Vascular Provider 07/24/21 11/17/22 Tierra Cancino PA-C [address] [address] Physician Team Assembler Urology 11/17/21 Luh Acharya PA-C [address] [place] [address] Assigned PCP 11/27/21 12/31/21 Tierra Cancino PA-C [address] [place] [address] Assigned Surgical Provider 12/11/21 06/08/23 Haven Buckner, NICOLE [address] [place] [address], [place] [address] Assigned PCP 01/01/22 12/22/22 Luh Acharya PA-C [address] [place] [address] Assigned PCP 12/23/22 05/18/23 Haven Buckner, NICOLE [address] [place] [address] Assigned PCP 05/19/23 02/05/25 documented as of this encounter
--- OUTSIDE RECORDS SUMMARY | 2025-04-03 06:45 | XMS_ITS | Clinical Summary ---
Author Organization [place] Address [address] [facility] [place] [address] Care Team Providers Care Business Executive Name Role Phone Toma Arguello Arun ROBERT Unavailable [phone] Laura Us MD Unavailable Tierra Cancino [...] 180 tablet 3 2 Active nystatin (MYCOSTATIN) [id number] UNIT/GM external creamIndication s:Intertriginou s candidiasis Apply [...] and replacement with titanium plate 07/24/2017 at [place] 07/11/2017 Class 1 obesity with serious comorbidity [...] her. She's working with her neurologist at [facility] and [place].for postconcussion therapy and evaluation. Did an EEG [...] Total Score(s): 06/03/2015 Total Score 20 Last [facility] website verification: done on 01/05/2017 [email or web address] Intractable migraine without aura and without status migrainosus- [facility] - every 4-6 weeks [...] c low back pain - managed by [facility] 06/03/2015 Skin cancer, basal [...] AM CDT Legal Sex Female 3:41 AM BATTING MACHINE OPERATOR INSULATION Gender Identity Female 01/18/2019 9:01 AM CDT [...] FREE T4 REFLEX Routine 11/17/2021 7:16 AM BATTING MACHINE OPERATOR INSULATION Other fatigue ALBUMIN RANDOM URINE QUANTITATIVE Routine 11/17/2021 7:16 AM BATTING MACHINE OPERATOR INSULATION Essential hypertension LIPID REFLEX TO DIRECT LDL PANEL Routine 11/17/2021 7:16 AM BATTING MACHINE OPERATOR INSULATION Hyperlipidemia LDL goal <130 COMPREHENSIVE METABOLIC PANEL Routine 11/17/2021 7:16 AM BATTING MACHINE OPERATOR INSULATION Hyperlipidemia LDL goal <130 Essential hypertension Essential hypertension with goal blood pressure less than 140/90 MA SCREENING BILATERAL W/ SUNNY Routine 10/13/2021 3:39 PM BATTING MACHINE OPERATOR INSULATION Visit for screening mammogram CBC WITH PLATELETS AND DIFFERENTIAL STAT 06/06/2021 1:10 PM CDT Tachycardia SOB (shortness of breath) CBC WITH PLATELETS & DIFFERENTIAL STAT 06/06/2021 1:10 PM CDT Tachycardia SOB (shortness of breath) HEPATITIS C SCREEN REFLEX TO HCV RNA QUANT AND GENOTYPE Routine 09/23/2020 9:03 AM BATTING MACHINE OPERATOR INSULATION Need for hepatitis C screening test PAP IMAGED THIN LAYER SCREEN Routine 09/23/2020 8:34 AM BATTING MACHINE OPERATOR INSULATION Screening for malignant neoplasm of cervix COLONOSCOPY Routine 09/29/2019 8:14 AM BATTING MACHINE OPERATOR INSULATION URINE DRUG SCREEN CLINIC Routine 07/11/2018 2:01 PM CDT Encounter for routine adult medical exam with abnormal findings HIV ANTIGEN ANTIBODY COMBO Routine 07/11/2018 10:09 AM CDT Screening for HIV (human immunodeficiency virus) CT CHEST/ABDOMEN/PELVIS W CONTRAST STAT 04/16/2016 3:09 PM CDT from Last 3 Months or Most Recently Relevant to Health Maintenance Results * (ABNORMAL) UA without Microscopic [[id number]] (12/02/2021 3:23 PM CDT) Color Urine Yellow [...] 3:57 PM CDT [facility] Specific [place] Urine 1.020 1.003 - 1.035 12/02/2021 3:57 [...] Final Result [facility] [address] [place] [address], [facility] [phone] * TSH with free T4 reflex (11/17/2021 7:16 AM BATTING MACHINE OPERATOR INSULATION) TSH 0.69 0.40 - 4.00 mU/L 11/18/2021 4:49 PM BATTING MACHINE OPERATOR INSULATION [facility] Blood STRUCTURE OF RIGHT UPPER LIMB / Unknown Venipuncture / Unknown 11/17/2021 7:16 AM BATTING MACHINE OPERATOR INSULATION 11/17/2021 7:16 AM BATTING MACHINE OPERATOR INSULATION Chance Bundy PA-C LAB - BLOOD ORDERABLES F inal Result [facility] Core Lab [address] [facility], [address] [place] [address], [facility] [phone] * Albumin Random Urine Quantitative with Creat Ratio (11/17/2021 7:16 AM BATTING MACHINE OPERATOR INSULATION) Creatinine Urine mg/dL 70 mg/dL 11/17/2021 4:27 PM BATTING MACHINE OPERATOR INSULATION [facility] Albumin Urine mg/L <5 mg/L 11/17/2021 4:27 PM BATTING MACHINE OPERATOR INSULATION [facility] Albumin Urine mg/g Cr 11/17/2021 4:27 PM BATTING MACHINE OPERATOR INSULATION [facility] Comment:Unable to calculate: Urine creatinine or albumin value below detectable level Urine MID-STREAM URINE SPECIMEN / Unknown Non-blood Collection / Unknown 11/17/2021 7:16 AM BATTING MACHINE OPERATOR INSULATION 11/17/2021 7:16 AM BATTING MACHINE OPERATOR INSULATION Chance Bundy PA-C LAB - URINE ORDERABLES F inal Result [facility] [address] Lab (no room number, 1st floor of clinic) [place] [address], [facility] [phone] * (ABNORMAL) Lipid panel reflex to direct LDL Fasting (11/17/2021 7:16 AM BATTING MACHINE OPERATOR INSULATION) Cholesterol 152 <200 mg/dL 11/18/2021 4:49 PM BATTING MACHINE OPERATOR INSULATION [facility] Triglycerides 308(H) <150 mg/dL 11/18/2021 4:49 PM BATTING MACHINE OPERATOR INSULATION [facility] Direct Measure HDL 36(L) >=50 mg/dL 11/18/2021 4:49 PM BATTING MACHINE OPERATOR INSULATION [facility] LDL Cholesterol Calculated 54 <=100 mg/dL 11/18/2021 4:49 PM BATTING MACHINE OPERATOR INSULATION [facility] Non HDL Cholesterol 116 <130 mg/dL 11/18/2021 4:49 PM BATTING MACHINE OPERATOR INSULATION [facility] Patient Fasting > 8hrs? Yes 11/18/2021 4:49 PM BATTING MACHINE OPERATOR INSULATION [facility] Blood STRUCTURE OF RIGHT UPPER LIMB / Unknown Venipuncture / Unknown 11/17/2021 7:16 AM BATTING MACHINE OPERATOR INSULATION 11/17/2021 7:16 AM BATTING MACHINE OPERATOR INSULATION Narrative [facility] - 11/18/2021 4:49 PM BATTING MACHINE OPERATOR INSULATION Cholesterol Desirable: <200 mg/dL Triglycerides Normal: Less [...] BLOOD ORDERABLES F inal Result [facility] [place] [facility] [address] [facility], [address] [place] [address], [place] [phone] [facility] [address] Lab (no room number, 1st floor of clinic) [place] [address], [facility] [phone] * (ABNORMAL) Comprehensive metabolic panel (BMP + Alb, Alk Phos, ALT, AST, Total. Bili, TP) (11/17/2021 7:16 AM BATTING MACHINE OPERATOR INSULATION) Sodium 138 133 - 144 mmol/L 11/18/2021 4:49 PM BATTING MACHINE OPERATOR INSULATION [facility] Potassium 4.7 3.4 - 5.3 mmol/L 11/18/2021 4:49 PM BATTING MACHINE OPERATOR INSULATION [facility] Chloride 103 94 - 109 mmol/L 11/18/2021 4:49 PM BATTING MACHINE OPERATOR INSULATION [facility] Carbon Dioxide (CO2) 27 20 - 32 mmol/L 11/18/2021 4:49 PM BATTING MACHINE OPERATOR INSULATION [facility] Anion Gap 8 3 - 14 mmol/L 11/18/2021 4:49 PM BATTING MACHINE OPERATOR INSULATION [facility] Urea Nitrogen 16 7 - 30 mg/dL 11/18/2021 4:49 PM BATTING MACHINE OPERATOR INSULATION [facility] Creatinine 1.24(H) 0.52 - 1.04 mg/dL 11/18/2021 4:49 PM BATTING MACHINE OPERATOR INSULATION [facility] Calcium 9.1 8.5 - 10.1 mg/dL 11/18/2021 4:49 PM BATTING MACHINE OPERATOR INSULATION [facility] Glucose 78 70 - 99 mg/dL 11/18/2021 4:49 PM BATTING MACHINE OPERATOR INSULATION [facility] Alkaline Phosphatase 100 40 - 150 U/L 11/18/2021 4:49 PM BATTING MACHINE OPERATOR INSULATION [facility] AST 21 0 - 45 U/L 11/18/2021 4:49 PM BATTING MACHINE OPERATOR INSULATION [facility] ALT 26 0 - 50 U/L 11/18/2021 4:49 PM BATTING MACHINE OPERATOR INSULATION [facility] Protein Total 7.4 6.8 - 8.8 g/dL 11/18/2021 4:49 PM BATTING MACHINE OPERATOR INSULATION [facility] Albumin 3.6 3.4 - 5.0 g/dL 11/18/2021 4:49 PM BATTING MACHINE OPERATOR INSULATION [facility] Bilirubin Total 0.4 0.2 - 1.3 mg/dL 11/18/2021 4:49 PM BATTING MACHINE OPERATOR INSULATION [facility] GFR Estimate 52(L) >60 mL/min/1.7 3m2 11/18/2021 4:49 PM BATTING MACHINE OPERATOR INSULATION [facility] Comment:Effective August 182020 eGFRcr in adults is calculated using the 2020 CKD-EPI creatinine equation which includes age and gender (Gloria et al., NEJ, DOI: 10.1056/YRMVxm1819802) Blood STRUCTURE OF RIGHT UPPER LIMB / Unknown Venipuncture / Unknown 11/17/2021 7:16 AM BATTING MACHINE OPERATOR INSULATION 11/17/2021 7:16 AM BATTING MACHINE OPERATOR INSULATION Chance Bundy PA-C LAB - BLOOD ORDERABLES F inal Result [facility] [place] [facility] [address] [facility], [address] [address], [facility] [phone] * MA Screen Bilateral w/Sunny (10/13/2021 3:39 PM BATTING MACHINE OPERATOR INSULATION) Anatomical Region Laterality Modality Breast Bilateral Mammography Narrative 10/14/2021 8:52 AM BATTING MACHINE OPERATOR INSULATION BILATERAL FULL FIELD DIGITAL SCREENING MAMMOGRAM WITH [...] - BLOOD ORDERABLES F inal Result LABORATORY [facility] Acute Care Lab [address] Lab (1st floor, no room number) [place] [address], [facility] [phone] * Hepatitis C Screen Reflex to HCV RNA Quant and Genotype (09/23/2020 9:03 AM BATTING MACHINE OPERATOR INSULATION) Hepatitis C Antibody Nonreactive NR^Nonre active 09/23/2020 4:55 PM BATTING MACHINE OPERATOR INSULATION [facility] Comment: Assay performance characteristics have not been established for newborns, infants, and children Blood specimen (specimen) 09/23/2020 9:03 AM BATTING MACHINE OPERATOR INSULATION 09/23/2020 9:04 AM BATTING MACHINE OPERATOR INSULATION us Chance Bundy PA-C LAB - BLOOD ORDERABLES F inal Result Performing Organization Address [facility]/ZIP Co de Phone Number [facility] [address] [place] [address] * Pap imaged thin layer screen with HPV - recommended age 30 - 65 years (select HPV order below) (09/23/2020 8:34 AM BATTING MACHINE OPERATOR INSULATION) PAP NIL COPATH Copath Report Patient Name: YENNI DYSON MR#: [id number] Specimen #: [id number] Collected: 09/23/2020 Received: 09/24/2020 [...] adenocarcinomas or other cancers. COLLECTION SITE: Client: [facility] Location: [facility] () The technical component of this testing was completed at the [facility], with the professional [facility], [address] [place] [phone] ([phone]) COPATH Cytologic material (specimen) 09/23/2020 8:34 AM BATTING MACHINE OPERATOR INSULATION 09/24/2020 11:15 AM BATTING MACHINE OPERATOR INSULATION Chance Bundy PA-C LAB - OPTIME CLINICAL SP ECIMEN Final Result COPATH * COLONOSCOPY (09/29/2019 8:14 AM BATTING MACHINE OPERATOR INSULATION) COLONOSCOPY [facility] Patient Name: Yenni Dyson Procedure Date: 09/29/2019 [...] # [id number], [place] # [id number], SN # [id number] was introduced through the anus and advanced [...] 9:20:27 AM RADIOLOGY RESULTS 09/29/2019 8:14 AM BATTING MACHINE OPERATOR INSULATION us Heber Glover MD PROCEDURES Final R esult RADIOLOGY RESULTS * (ABNORMAL) Drug Abuse Screen Panel 13, Urine (Pain Care Package) (07/11/2018 2:01 PM CDT) Cannabinoids (89-nrf-2-carboxy- 9-THC) Not Detected NDET^Not Detected ng/mL 07/11/2018 [...] be used for medical purposes only. Order [id number] for confirmation or individual confirmation tests to [...] NDET^Not Detected ng/mL 07/11/2018 5:33 PM T [facility] Comment: Cutoff for a positive tricyclic antidepressant is greater than 300 ng/ml. This is an unconfirmed screening result to be used for medical purposes only. Order [id number] for confirmation or individual confirmation tests to [...] MD LAB - URINE ORDERABLES Final Result [facility] [address] [place] [address] * HIV Screening (07/11/2018 10:09 AM CDT) HIV Antigen Antibody Combo Nonreactive NR^Nonrea ctive 07/12/2018 9:42 AM CDT [facility] Comment:HIV-1 p24 Ag & HIV-1 /HIV-2 Ab Not Detected Blood specimen (specimen) 07/11/2018 10:09 AM CDT 07/11/2018 10:10 AM CDT us Heber Glover MD LAB - BLOOD ORDERABLES Final Result [address] [address], [facility] * CT Chest/Abdomen/Pelvis w Contrast (04/16/2016 [...] Advance Directives For more information, please contact: [phone] * Full Code (Latest Code Status on File) Date Activated Date Inactivated Comments 06/27/2017 4:33 PM 06/28/2017 4:51 PM * Full Code Date Activated Date Inactivated Comments 07/07/2016 2:47 PM 06/27/2017 4:33 PM * Full Code Date Activated Date Inactivated Comments 07/06/2016 5:24 PM 07/07/2016 2:47 PM Care Teams Business Executive Relationship Specialty Start Date End Date Toma Arguello NP [facility] [address] [place] [address] Nurse Practitioner Nurse Practitioner Psych/Mental Health 04/11/17 Laura Us MD [facility] [address] [place] [address] Gastroenterology 12/20/18 Tierra Cancino PA-C [address] [place] [address] [place] [address] Physician Small Craft Operator Urology 3/3/22
--- OUTSIDE RECORDS SUMMARY | 2025-04-03 06:45 | XMS_ITS | Encounter Summary ---
Author Organization [place] Address [address] [facility] [place] [address] Care Team Providers Care Wool Hat Forming Machine Tender Name Role Phone Kathy Glover MD Primary Care Provider Toma Arguello NP Unavailable [phone] Kathy Glover MD Unavailable [phone] Kathy Glover MD Unavailable [phone] Laura sU MD Unavailable Luh Acharya PA-C Unavailable [phone] Kathy Glover MD Unavailable [phone] Luh Acharya PA-C Unavailable +[phone] Edward Marlow MD Unavailable [phone] [facility] Primary Care Provider Jas Bojorquez DO Unavailable [phone] Haven Buckner CNP Unavailable Jenise España MD Unavailable Unavailable Tierra CancinoC Unavailable Luh Acharya PA-C Primary Care Provider + Luh AcharyaC Unavailable +[phone] ShaniTierra goeljose guadalupe BAUTISTAC Unavailable Haven Buckner CAFE SERVER Unavailable +1--2 Luh AcharyaC Unavailable +1- BucknerHaven lofton CAFE SERVER Unavailable +1--2 Encounter Details Date Type Department [...] AM CDT Legal Sex Female 3:41 AM DRY CELL ASSEMBLY MACHINE TENDER Gender Identity Female 01/18/2019 9:01 AM CDT [...] documented as of this encounter Care Teams Wool Hat Forming Machine Tender Relationship Specialty Start Date End Date Kathy Glover MD [address] [place] [address] [phone] PCP - General Family Practice 06/03/15 10/05/20 Kathy Glover MD [address] [place] [address] [id number] PCP - Assigned PCP 07/25/15 11/19/[address] [phone] PCP - General 10/06/20 11/20/21 Luh Acharya PA-C [address] [place] [address] 28860 PCP - General Family Medicine 11/21/21 01/02/23 Toma Arguello NP [address] [address] Nurse Practitioner Nurse Practitioner Psych/Mental Health 04/11/17 Kathy Glover MD [address] [place] [address] 60664 Assigned PCP 07/25/15 12/20/19 Laura Us MD [address] [place] [address] 66977 Gastroenterology 12/20/18 Luh Acharya PA-C [address] [place] [address] 21364 Assigned PCP 12/21/19 01/17/20 Kathy Glover MD [address] [place] [address] 12693 Assigned PCP 01/18/20 06/19/20 Luh Acharya PA-C [address] [place] [address] 91710 Assigned PCP 06/20/20 03/31/21 Edward Marlow MD [place] [address] Assigned Surgical Provider 07/09/20 07/31/20 Jas Bojorquez DO [address] [place] [address] 88205 Assigned PCP 04/01/21 05/21/21 Haven Buckner, CAFE SERVER [address] [place] [address] 01838 Assigned PCP 05/22/21 11/26/21 Jenise España MD Assigned Heart and Vascular Provider 07/24/21 11/17/22 Tierra Cancino PA-C [address] [place] [address] Physician Weight Guesser Urology 11/17/21 Luh Acharya PA-C [address] [place] [address] 25747 Assigned PCP 11/27/21 12/31/21 Tierra Cancino PA-C [address] [place] [address] Assigned Surgical Provider 12/11/21 06/08/23 Haven Buckner, NICOLE [address] [place] [address] 78825 Assigned PCP 01/01/22 12/22/22 Luh Acharya PA-C [address] [place] [address] 02775 Assigned PCP 12/23/22 05/18/23 Haven Buckner, CAFE SERVER [address] [place] [address] 42932 Assigned PCP 05/19/23 02/05/25 documented as of this encounter
--- OUTSIDE RECORDS SUMMARY | 2025-04-03 06:45 | XMS_ITS | Encounter Summary ---
Author Organization [place] Address [address] [facility] [place] [address] Care Team Providers Care Exercise Equipment Repair Technician Name Role Phone Kathy Glover MD Primary Care Provider Toma Arguello NP Unavailable [phone] Kathy Glover MD Unavailable +[phone] Kathy Glover MD Unavailable [phone] Laura Us MD Unavailable Luh Acharya PA-C Unavailable +[phone] Kathy Glover MD Unavailable [phone] Luh Acharya PA-C Unavailable +[phone] Edward Marlow MD Unavailable [facility] Primary Care Provider Jas Bojorquez DO Unavailable [phone] Haven Buckner CNP Unavailable Jenise España MD Unavailable Unavailable Tierra CancinoC Unavailable Luh Acharya PA-C Primary Care Provider + Luh AcharyaC Unavailable [phone] Barak Tierra BAUTISTAC Unavailable +[phone] Haven Buckner CNP Unavailable +[phone] Luh AcharyaC Unavailable [phone] BucknerHaven lofton CNP Unavailable [phone] Reason for Visit * Reason Onset Date Comments Refill Request 05/09/2016 flexeril Encounter Details Date Type Department Care Team (Late st Contact Info) Description 05/09/[address] [address] [place] [address] [place] [address] Refill Request (flexeril) Social History Tobacco [...] CDT Legal Sex Female 3:41 AM MANAGER CORPORATE Gender Identity Female 01/18/2019 9:01 AM CDT Sexual Orientation Straight 01/18/2019 9: 01 AM CDT documented as of this encounter Miscellaneous Notes * Telephone Encounter - Marcy Smith RN - 05/09/2016 2:10 PM CDT Routing refill request to provider for review/approval because: Drug not on the [facility] refill protocol not on med list for RN protocol. Dona Smith RN * Telephone Encounter - Krunal Whitehead - 05/09/2016 9:18 AM CDT cyclobenzaprine (FLEXERIL) 5 MG tablet Last Written Prescription Date: 01.01.16 Last Fill Quantity: 42, # refills: 0 Last Office Visit with G, P or [facility] prescribing provider: 04.27.16 documented in this [...] Total Score: 5 11/19/19 16 7:51 AM MANAGER CORPORATE documented as of this encounter Care Teams Exercise Equipment Repair Technician Relationship Specialty Start Date End Date Kathy Glover MD [address] [place] [address] PCP - General Family Practice 06/03/15 10/05/20 Kathy Glover MD [address] [place] [address] PCP - Assigned PCP 07/25/15 11/19/[address] [address] PCP - General 10/06/20 11/20/21 Luh Acharya PA-C [address] [place] [address] PCP - General Family Medicine 11/21/21 01/02/23 Toma Arguello NP [facility] [address] [place] [address] Nurse Practitioner Nurse Practitioner Psych/Mental Health 04/11/17 Kathy Glover MD [address] [place] [address] Assigned PCP 07/25/15 12/20/19 Laura Us MD [address] [place] [address] Gastroenterology 12/20/18 Luh Acharya PA-C [address] [place] [address] 229[address] Assigned PCP 12/21/19 01/17/20 Kathy Glover MD [address] [place] [address] Assigned PCP 01/18/20 06/19/20 Luh Acharya PA-C [address] [place] [address] Assigned PCP 06/20/20 03/31/21 Edward Marlow MD [address] [place] [address] Assigned Surgical Provider 07/09/20 07/31/20 Jas Bojorquez DO [address] [place] [address] Assigned PCP 04/01/21 05/21/21 Haven Buckner, ORNAMENT STAPLER [address] [place] [address], [place] [address] Assigned PCP 05/22/21 11/26/21 Jneise España MD Assigned Heart and Vascular Provider 07/24/21 11/17/22 Tierra Cancino PA-C [address] [place] [address] Physician Field Servicer Urology 11/17/21 Luh Acharya PA-C [address] [place] [address], [place] [address] Assigned PCP 11/27/21 12/31/21 Tierra Cancino PA-C [address] [place] [address] Assigned Surgical Provider 12/11/21 06/08/23 Haven Buckner, ORNAMENT STAPLER [address] [place] [address], [place] [address] Assigned PCP 01/01/22 12/22/22 Luh Acharya PA-C [address] [place] [address], [place] [address] Assigned PCP 12/23/22 05/18/23 Haven Buckner, ORNAMENT STAPLER [address] [place] [address], [place] [address] Assigned PCP 05/19/23 02/05/25 documented as of this encounter
--- OUTSIDE RECORDS SUMMARY | 2025-04-03 06:45 | XMS_ITS | Encounter Summary ---
Author Organization [place] Address [address] [facility] [place] [address] Care Team Providers Care Childbirth And Infant Care Teacher Name Role Phone Kathy Glover MD Primary Care Provider Toma Arguello NP Unavailable [phone] Kathy Glover MD Unavailable [phone] Kathy Glover MD Unavailable [phone] Laura Us MD Unavailable Luh Acharya PA-C Unavailable +[phone] Kathy Glover MD Unavailable [phone] Luh Acharya PA-C Unavailable +[phone] Edward Marlow MD Unavailable [facility] Primary Care Provider Jas Bojorquez DO Unavailable [phone] Haven Buckner CNP Unavailable Jenise España MD Unavailable Unavailable Tierra CancinoC Unavailable [phone] Luh Acharya PA-C Primary Care Provider + Luh AcharyaC Unavailable [phone] Tierra Cancinovandana BAUTISTAC Unavailable BucknerHaven lofton CNP Unavailable +[phone] Marck Luh DUMONT-C Unavailable [phone] SitaHaven CNP Unavailable +1-2 Reason for Visit * Reason Comments Medication Refill traZODone (DESYREL) 100 MG tablet Encounter Details Date Type Department Care Team (Late st Contact Info) Description 01/19/[address] [address] [place] [address] [place] [address] Medication Refill (traZODone (DESYREL) 100 MG [...] AM CDT Legal Sex Female 3:41 AM PHYSIOLOGY TEACHER Gender Identity Female 01/18/2019 9:01 AM CDT Sexual Orientation Straight 01/18/2019 9: 01 AM CDT documented as of this encounter Miscellaneous Notes * Telephone Encounter - Manisha Patel RN - 01/20/2016 3:43 PM CDT Please see message below Please review and advise Thank you Manisha Patel RN, BSN [place] Triage * Telephone Encounter - Renay Barlow RN - 01/20/2016 11:32 AM CDT traZODone (DESYREL) 100 MG tablet Rx was D/C on 11/18/15 due to Dosage Adjustment - Pt wanted to go down to 50mg Last Written Prescription Date: 06/02/15 Last Fill Quantity: n/a; # refills: n/a Last Office Visit with [facility] or [facility] prescribing provider: 11/18/15 Next 5 appointments (look out 90 days) January 29, 2016 8:45 AM Office Visit with Kathy Glover MD [facility] [address] [place] [phone] Last PHQ-9 score on record= PHQ-9 SCORE 11/18/2015 Total Score 5 AST 39 11/18/2015 ALT 78 11/18/2015 Renay Barlow Patient Bore Miner Operator documented in this encounter Plan of Treatment [...] Total Score: 5 11/19/19 16 7:51 AM PHYSIOLOGY TEACHER documented as of this encounter Care Teams Childbirth And Infant Care Teacher Relationship Specialty Start Date End Date Kathy Glover MD [address] [place] [address] PCP - General Family Practice 06/03/15 10/05/20 Kathy Glover MD [address] [place] [address] PCP - Assigned PCP 07/25/15 11/19/[address] [address] PCP - General 10/06/20 11/20/21 Luh Acharya PA-C [address] [place] [address] PCP - General Family Medicine 11/21/21 01/02/23 Toma Arguello FOOD AND BEVERAGE ASSISTANT [address] [address] Nurse Practitioner Nurse Practitioner Psych/Mental Health 04/11/17 Kathy Glover MD [address] [place] [address] Assigned PCP 07/25/15 12/20/19 Laura Us MD [address] [place] [address] Gastroenterology 12/20/18 Luh Acharya PA-C [address] [place] [address] Assigned PCP 12/21/19 01/17/20 Kathy Glover MD [address] [place] [address] Assigned PCP 01/18/20 06/19/20 Luh Acharya PA-C [address] [place] [address] Assigned PCP 06/20/20 03/31/21 Edward Marlow MD [facility] [place] [address] Assigned Surgical Provider 07/09/20 07/31/20 Jas Bojorquez DO [address] [place] [address] Assigned PCP 04/01/21 05/21/21 Haven Buckner, CONTRACTS ANALYST [address] [place] [address] Assigned PCP 05/22/21 11/26/21 Jenise España MD Assigned Heart and Vascular Provider 07/24/21 11/17/22 Tierra Cancino PA-C [address] [place] [address] Physician Head Sampler Urology 11/17/21 Luh Acharya PA-C [address] [place] [address] Assigned PCP 11/27/21 12/31/21 Tierra Cancino PA-C [address] [place] [address] Assigned Surgical Provider 12/11/21 06/08/23 Haven Buckner, CONTRACTS ANALYST [address] [place] [address] Assigned PCP 01/01/22 12/22/22 Luh Acharya PA-C [address] [place] [address] [place] [address] Assigned PCP 12/23/22 05/18/23 Haven Buckner, CONTRACTS ANALYST [address] [place] [address] Assigned PCP 05/19/23 02/05/25 documented as of this encounter
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
--- OUTSIDE RECORDS SUMMARY | 2025-04-03 06:45 | XMS_ITS | Encounter Summary ---
Author Organization [place] Address [address] [facility] [place] [address] Care Team Providers Care Technology Development Intern Name Role Phone Kathy Glover MD Primary Care Provider Toma Arguello NP Unavailable [phone] Kathy Glover MD Unavailable [phone] Kathy Glover MD Unavailable [phone] Laura Us MD Unavailable Luh Acharya PA-C Unavailable [phone] Kathy Glover MD Unavailable [phone] Luh Acharya PA-C Unavailable +[phone] Edward Marlow MD Unavailable [facility] Primary Care Provider Jas Bojorquez DO Unavailable [phone] Haven Buckner CNP Unavailable Jenise España MD Unavailable Unavailable Tierra CancinoC Unavailable Luh Acharya PA-C Primary Care Provider + Luh AcharyaC Unavailable [phone] Shaniamando Tierra BAUTISTAC Unavailable [phone] Haven Buckner CNP Unavailable +1--2 Luh AcharyaC [...] AM CDT Legal Sex Female 3:41 AM SHOE LASTER Gender Identity Female 01/18/2019 9:01 AM CDT [...] documented as of this encounter Care Teams Technology Development Intern Relationship Specialty Start Date End Date Kathy Glover MD [address] [place] [address] [phone] PCP - General Family Practice 06/03/15 10/05/20 Kathy Glover MD [address] [place] [address] 336272 PCP - Assigned PCP 11/8/15 3/5/[address] [address] PCP - General 10/06/20 11/20/21 Luh Acharya PA-C [address] [place] [address] PCP - General Family Medicine 11/21/21 01/02/23 Toma Arguello NP [address] [address] Nurse Practitioner Nurse Practitioner Psych/Mental Health 04/11/17 Kathy Glover MD [address] [place] [address] Assigned PCP 07/25/15 12/20/19 Laura Us MD [address] [place] [address] Gastroenterology 12/20/18 Luh Acharya PA-C [address] [place] [address] Assigned PCP 12/21/19 01/17/20 Kathy Glover MD [address] [place] [address] Assigned PCP 01/18/20 06/19/20 Luh Acharya PA-C [address] [place] [address] Assigned PCP 06/20/20 03/31/21 Edward Mar[place] [address] Assigned Surgical Provider 07/09/20 07/31/20 Jas Bojorquez DO [address] [place] [address] Assigned PCP 04/01/21 05/21/21 Haven Buckner, ENVIRONMENTAL SCIENTISTS [address] [place] [address] Assigned PCP 05/22/21 11/26/21 Jenise España MD Assigned Heart and Vascular Provider 07/24/21 11/17/22 Tierra Cancino PA-C [address] [place] [address] Physician Mine Motor Operator Urology 11/17/21 Luh Acharya PA-C [address] [place] [address] Assigned PCP 11/27/21 12/31/21 Tierra Cancino PA-C [address] [place] [address] Assigned Surgical Provider 12/11/21 06/08/23 Haven Buckner, NICOLE [address] [place] [address] Assigned PCP 01/01/22 12/22/22 Luh Acharya PA-C [address] [place] [address] Assigned PCP 12/23/22 05/18/23 Haven Buckner, NICOLE [address] [place] [address] [phone] Assigned PCP 05/19/23 02/05/25 documented as of this encounter
--- OUTSIDE RECORDS SUMMARY | 2025-04-03 06:45 | XMS_ITS | Encounter Summary ---
Author Organization [place] Address [address] [facility] [address] Care Team Providers Care Scalder Name Role Phone Kathy Glover MD Primary Care Provider Toma Arguello NP Unavailable [phone] Kathy Glover MD Unavailable [phone] Kathy Glover MD Unavailable [phone] Laura Us MD Unavailable Luh Acharya PA-C Unavailable [phone] Kathy Glover MD Unavailable [phone] Luh Acharya PA-C Unavailable +[phone] Edward Marlow MD Unavailable [facility] Primary Care Provider Jas Bojorquez DO Unavailable [phone] Haven Buckner CNP Unavailable Jenise España MD Unavailable Unavailable Tierra CancinoC Unavailable [phone] Luh Acharya PA-C Primary Care Provider + Luh AcharyaC Unavailable +[phone] Tierra Cancinovonnvandana BAUTISTAC Unavailable Haven Buckner CNP Unavailable +1-2 Marck Luh BAUTISTAC Unavailable +[phone] BucknerHaven lofton CNP Unavailable +12-2 Reason for Visit * Reason Comments Medication Refill Encounter Details Date Type Department Care Team (Late st Contact Info) Description 03/14/2018 Refill [facility] Health & [facility] [address] [address] [place] [address] [place] [address] [place] [address] Medication Refill Social History Tobacco Use Types Packs/Day Years Used Date Smoking Tobacco: Former Cigarettes 1 20 Smokeless Tobacco: Never Alcohol Use Standard Drinks/Week Comments No 0 (1 standard drink = 0.6 oz pur e alcohol) Comments No Sex and Gender Information Value Date Recorded Sex Assigned at Female 01/18/2019 9:01 AM CDT Legal Sex Female 3:41 AM 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 HELPER Gender Identity Female 01/18/2019 9:01 AM CDT [...] documented as of this encounter Care Teams Scalder Relationship Specialty Start Date End Date Kathy Glover MD [address] [place] [address] PCP - General Family Practice 06/03/15 10/05/20 Kathy Glover MD [address] [place] [address] PCP - Assigned PCP 07/25/15 11/19/[address] [address] PCP - General 10/06/20 11/20/21 Luh Acharya PA-C [address] [place] [address] PCP - General Family Medicine 11/21/21 01/02/23 Toma Arguello NP [address] [address] Nurse Practitioner Nurse Practitioner Psych/Mental Health 04/11/17 Kathy Glover MD [address] [place] [address] Assigned PCP 07/25/15 12/20/19 Laura Us MD [address] [place] [address], [place] [address] Gastroenterology 12/20/18 Luh Acharya PA-C [address] [place] [address] Assigned PCP 12/21/19 01/17/20 Kathy Glover MD [address] [place] [address], [place] 184962 Assigned PCP 01/18/20 06/19/20 Luh Acharya PA-C [address] [place] [address] 368442 Assigned PCP 06/20/20 03/31/21 Edward Marlow MD [address] [place] [address] Assigned Surgical Provider 07/09/20 07/31/20 Jas Bojorquez DO [address] [place] [address] 026592 Assigned PCP 04/01/21 05/21/21 Haven Buckner, COAT BASTER [address] [place] [address], [place] 113412 Assigned PCP 05/22/21 11/26/21 Jenise España MD Assigned Heart and Vascular Provider 07/24/21 11/17/22 Tierra Cancino PA-C [address] [place] [address] Physician Roll Press Operator Urology 11/17/21 Luh Acharya PA-C [address] [place] [address], [place] [address] Assigned PCP 11/27/21 12/31/21 Tierra Cancino PA-C [address] [place] [address] Assigned Surgical Provider 12/11/21 06/08/23 Haven Buckner, NICOLE [address] [place] [address] Assigned PCP 01/01/22 12/22/22 Luh Acharya PA-C [address] [place] [address], [place] [address] Assigned PCP 12/23/22 05/18/23 Haven Buckner, NICOLE [address] [place] [address] Assigned PCP 05/19/23 02/05/25 documented as of this encounter
--- OUTSIDE RECORDS SUMMARY | 2025-04-03 06:45 | XMS_ITS | Encounter Summary ---
Author Organization [place] Address [address] [place] [address] Care Team Providers Care Rider Ticket Worker Name Role Phone Kathy Glover MD Primary Care Provider Toma Arguello NP Unavailable [phone] Laura Us MD Unavailable Luh Acharya-C Unavailable [phone] [facility] Primary Care Provider Jas Bojorquez DO Unavailable [phone] SALES REPRESENTATIVE BUSINESS COURSES Unavailable [phone] Jenise España MD Unavailable Unavailable Tierra Cancino-C Unavailable [phone] Luh Acharya-C Primary Care Provider + Luh Acharya-C Unavailable + [phone] Tierra Cancino-C Unavailable [phone] Haven Buckner SALES REPRESENTATIVE BUSINESS COURSES Unavailable [phone] Luh Acharya-C Unavailable [phone] Haven Buckner SALES REPRESENTATIVE BUSINESS COURSES Unavailable [phone] Reason for Visit * Reason Comments Medication Refill Encounter Details Date Type Department Care Team (Late st Contact Info) Description 08/15/[address] [phone] Kathy Glover MD [address] [place], [place] [address] Medication Refill Social History Tobacco Use Types [...] AM CDT Legal Sex Female 3:41 AM RIGGER Gender Identity Female 01/18/2019 9:01 AM [...] Raina Thomas - 08/18/2020 9:23 AM CST Collective Bias message sent to patient to call and schedule follow up visit Raina Thomas/ [facility] * Telephone Encounter - Haven Navarro APRN CNP - 08/16/2020 5:03 PM RIGGER Images from the original note were not included. Due for physical wellness exam with pap; please help patient get this set up. #90 day fill. [facility] * Telephone Encounter - Agustina Mares RN - 08/16/2020 2:09 PM CST Routing refill request to provider for review/approval because: Drug interaction warning ER documented in this encounter Plan of Treatment Not on file documented as of this encounter Visit Diagnoses Diagnosis Persistent insomnia- managed by [facility] Neurology - Dr. [...] Total Score: 1 07/27/20 20 2:05 PM RIGGER documented as of this encounter Care Teams Rider Ticket Worker Relationship Specialty Start Date End Date Kathy Glover MD [address] [place] [address] [id number] PCP - General Family Practice 06/03/15 10/05/20 [facility] [address] [place] [address] PCP - General 10/06/20 11/20/21 Luh Acharya PA-C [address] [place] [address] PCP - General Family Medicine 11/21/21 01/02/23 Toma Arguello NP [address] [address] Nurse Practitioner Nurse Practitioner Psych/Mental Health 04/11/17 Laura Us MD [address] [address] Gastroenterology 12/20/18 Luh Acharya PA-C [address] [place] [address] Assigned PCP 06/20/20 03/31/21 Jas Bojorquez DO [address] [place] [address] [id number] Assigned PCP 04/01/21 05/21/21 Haven Buckner, SALES REPRESENTATIVE BUSINESS COURSES [address] [place] [address] Assigned PCP 05/22/21 11/26/21 Jenise España MD Assigned Heart and Vascular Provider 07/24/21 11/17/22 Tierra Cancino PA-C [address] [place] [address] Physician Lay Out Maker Urology 11/17/21 Luh Acharya PA-C [address] [place] [address] Assigned PCP 11/27/21 12/31/21 Tierra Cancino PA-C [address] [place] [address] Assigned Surgical Provider 12/11/21 06/08/23 Haven Buckner, SALES REPRESENTATIVE BUSINESS COURSES [address] [place] [address] Assigned PCP 01/01/22 12/22/22 Luh Acharya PA-C [address] [place] [address], [place] [address] Assigned PCP 12/23/22 05/18/23 Haven Buckner, SALES REPRESENTATIVE BUSINESS COURSES [address] [place] [address], [place] [address] Assigned PCP 05/19/23 02/05/25 documented as of this encounter
--- OUTSIDE RECORDS SUMMARY | 2025-04-03 06:45 | XMS_ITS | Encounter Summary ---
Author Organization [place] Address [address] [facility] [place] [address] Care Team Providers Care Connie Cleaner Name Role Phone Kathy Glover MD Primary Care Provider Toma Arguello NP Unavailable [phone] Kathy Glover MD Unavailable [phone] Kathy Glover MD Unavailable [phone] Laura Us MD Unavailable Luh Acharya PA-C Unavailable [phone] Kathy Glover MD Unavailable [phone] Luh Acharya PA-C Unavailable [phone] Edward Marlow MD Unavailable [phone] [facility] Primary Care Provider Jas Bojorquez DO Unavailable [phone] Haven Bukcner CNP Unavailable Jenise España MD Unavailable Unavailable Tierra CancinoC Unavailable Luh Acharya PA-C Primary Care Provider + Luh Acharya-C Unavailable [phone] Tierra Cancinovonnvandana BAUTISTAC Unavailable [phone] Haven Buckner CNP Unavailable [phone] Karri Acharyakirsty DUMONT-C Unavailable [phone] SitaHaven CNP Unavailable [phone] Reason for Visit * Reason Comments Medication Refill Encounter Details Date Type Department Care Team (Late st Contact Info) Description 05/09/[address] [phone] Kathy Glover MD [address] [place] [address] Medication Refill Social History Tobacco Use Types Packs/Day Years Used Date Smoking Tobacco: Former Cigarettes 1 20 Smokeless Tobacco: Never Alcohol Use Standard Drinks/Week Comments Yes 0 (1 standard drink = 0.6 oz pur e alcohol) 1 glass wine daily Comments No Sex and Gender Information Value Date Recorded Sex Assigned at Female 01/18/2019 9:01 AM CDT Legal Sex Female 3:41 AM OTHER SPATIAL SCIENTIST Gender Identity Female 01/18/2019 9:01 AM CDT [...] Total Score: 5 11/19/19 16 7:51 AM OTHER SPATIAL SCIENTIST documented as of this encounter Care Teams Connie Cleaner Relationship Specialty Start Date End Date Kathy Glover MD [address] [place] [address] PCP - General Family Practice 06/03/15 10/05/20 Kathy Glover MD [address] [place] [address] PCP - Assigned PCP 07/25/15 11/19/[address] [address] PCP - General 10/06/20 11/20/21 Luh Acharya PA-C [address] [place] [address] PCP - General Family Medicine 11/21/21 01/02/23 Toma Arguello NP [address] [address] Nurse Practitioner Nurse Practitioner Psych/Mental Health 04/11/17 Kathy Glover MD [address] [place] [address] Assigned PCP 07/25/15 12/20/19 Laura Us MD [address] [place] [address] Gastroenterology 12/20/18 Luh Acharya PA-C [address] [place] [address] Assigned PCP 12/21/19 01/17/20 Kathy Glover MD [address] [place] [address], [place] [address] Assigned PCP 01/18/20 06/19/20 Luh Acharya PA-C [address] [place] [address], [place] [address] Assigned PCP 06/20/20 03/31/21 Edward Marlow [place] [address] Assigned Surgical Provider 07/09/20 07/31/20 Jas Bojorquez DO [address] [place] [address] Assigned PCP 04/01/21 05/21/21 Haven Buckner, NICOLE [address] [place] [address], [place] 019012 Assigned PCP 05/22/21 11/26/21 Jensie España MD Assigned Heart and Vascular Provider 07/24/21 11/17/22 Tierra Cancino PA-C [address] [place] [address] Physician Pump And Blower Operator Urology 11/17/21 Luh Acharya PA-C [address] [place] [address], [place] [address] Assigned PCP 11/27/21 12/31/21 Tierra Cancino PA-C [address] [place] [address] Assigned Surgical Provider 12/11/21 06/08/23 Haven Buckner, NICOLE [address] [place] [address] Assigned PCP 01/01/22 12/22/22 Luh Acharya PA-C [address] [place] [address] Assigned PCP 12/23/22 05/18/23 Haven Buckner, NICOLE [address] [place] [address] Assigned PCP 05/19/23 02/05/25 documented as of this encounter
[2025-04-03 06:58] VITALS: BP 92/66; PULSE 69; RESP 18; TEMP 36.3; O2SAT 95; BMI 30.3
--- NOTE | 2025-04-03 08:18 | ED.GENADULT ---
HPI - General Adult General Chief complaint: Extremity Pain/Injury, Lower Stated complaint: Shooting pain lower L side Time Seen by Provider: 04/03/25 07:49 History of Present Illness HPI narrative: Patient is a 54-year-old woman with history of partially fused lumbar spine who presents with bilateral radiculopathy which is positional in nature. Patient was in the emergency room yesterday was evaluated for flank pain unremarkable CT scan. Patient is currently being treated with antibiotics for outpatient treatment of a UTI in the form of ciprofloxacin. Patient was discharged yesterday and this morning had radicular symptoms down both legs. No bowel or bladder symptoms no fevers no chills no night sweats no cough no shortness of breath. Symptoms have largely resolved but her somewhat positional in nature still. Related Data Home Medications ?Medication ?Instructions ?Recorded ?Confirmed vitamin B complex (B 1 tab PO QDAY 10/17/22 04/03/25 Complex-Vitamin B12 tablet) ubrogepant 100 mg tablet (Ubrelvy) 100 mg PO ONCE PRN 11/22/23 04/03/25 amitriptyline 25 mg tablet 25 mg PO QDAY 01/21/24 04/03/25 topiramate 50 mg tablet 50 mg PO DAILY 03/26/24 04/03/25 buspirone 15 mg tablet 15 mg PO BID 09/11/24 04/03/25 duloxetine 20 mg capsule,delayed 20 mg PO QDAY 09/11/24 04/03/25 release pregabalin 225 mg capsule 225 mg PO DAILY 10/13/24 04/03/25 buspirone 30 mg tablet mg PO 03/30/25 03/30/25 topiramate 200 mg tablet mg PO 03/30/25 03/30/25 metoprolol succinate 25 mg 25 mg PO DAILY 04/02/25 04/03/25 tablet,extended release 24 hr omeprazole 20 mg capsule,delayed 20 mg PO DAILY 04/02/25 04/03/25 release rosuvastatin 20 mg tablet 20 mg PO DAILY 04/02/25 04/03/25 Previous Rx's ?Medication ?Instructions ?Recorded epinephrine 0.3 mg/0.3 mL 0.3 mg (0.3 mL) IM ONCE PRN 05/24/23 injection, auto-injector hypersensitivity reaction #2 ea lisinopril 10 1 tab PO QDAY #90 tabs 11/27/24 mg-hydrochlorothiazide 12.5 mg tablet omega-3 acid ethyl esters 1 gram 1 cap PO QDAY #90 caps 11/27/24 capsule ciprofloxacin HCl 500 mg tablet 500 mg PO BID 7 days #14 tabs 03/30/25 Allergies Allergy/AdvReac Type Severity Reaction Status Date / Time metronidazole (From Flagyl) Allergy Intermediate Verified 04/03/25 07:04 cetirizine (From Zyrtec-D) Allergy Verified 04/03/25 07:04 pseudoephedrine (From Allergy Verified 04/03/25 07:04 Zyrtec-D) Review of Systems Status of ROS: Reports: 10 or more systems reviewed and unremarkable except as noted in History and below PFSH [facility] Medical History Chronic migraine Cigarette smoker ?F17.210 - Nicotine dependence, cigarettes, uncomplicated (ICD-10) COVID-19 ?U07.1 - COVID-19 (ICD-10) Urinary tract infection ?N39.0 - Urinary tract infection, site not specified (ICD-10) Intertriginous candidiasis ?B37.2 - Candidiasis of skin and nail (ICD-10) History of diverticulitis of colon (2014) ?Z87.19 - Personal history of other diseases of the digestive system (ICD-10) Frequent UTI ?N39.0 - Urinary tract infection, site not specified (ICD-10) Persistent insomnia ?G47.00 - Insomnia, unspecified (ICD-10) CKD (chronic kidney disease) ?N18.9 - Chronic kidney disease, unspecified (ICD-10) History of basal cell carcinoma (BCC) (2013) ?Z85.828 - Personal history of other malignant neoplasm of skin (ICD-10) Post concussive syndrome (04/16/16) ?F07.81 - Postconcussional syndrome (ICD-10) Major depressive disorder, recurrent episode, moderate (1985) ?F33.1 - Major depressive disorder, recurrent, moderate (ICD-10) History of non anemic vitamin B12 deficiency ?Z86.39 - Personal history of other endocrine, nutritional and metabolic disease (ICD-10) Hyperlipidemia ?E78.5 - Hyperlipidemia, unspecified (ICD-10) History of adenomatous polyp of colon ?Z86.010 - Personal history of colonic polyps (ICD-10) GERD (gastroesophageal reflux disease) ?K21.9 - Gastro-esophageal reflux disease without esophagitis (ICD-10) Fibromyalgia ?M79.7 - Fibromyalgia (ICD-10) Essential hypertension ?I10 - Essential (primary) hypertension (ICD-10) Chronic pain syndrome ?G89.4 - Chronic pain syndrome (ICD-10) Surgical History History of cystoscopy (06/2024) ?Z98.890 - Other specified postprocedural states (ICD-10) History of appendectomy (1984) ?Z90.49 - Acquired absence of other specified parts of digestive tract (ICD-10) History of tonsillectomy (1974) ?Z90.89 - Acquired absence of other organs (ICD-10) History of open reduction and internal fixation (ORIF) procedure (2006) ?Z98.890 - Other specified postprocedural states (ICD-10) Hx of LASIK (1993) ?Z98.890 - Other specified postprocedural states (ICD-10) History of total abdominal hysterectomy (1999) ?Z90.710 - Acquired absence of both cervix and uterus (ICD-10) Swallowing study performed (11/24/21) ?Z13.810 - Encounter for screening for upper gastrointestinal disorder (ICD-10) History of lumbar fusion (07/06/16) ?Z98.1 - Arthrodesis status (ICD-10) Family History Unknown History of non anemic vitamin B12 deficiency Father Diabetes Coronary artery disease High blood pressure Anxiety and depression Neuroendocrine cancer Brother Diabetes Asthma High blood pressure Paternal Grandmother Diabetes Hyperlipidemia Mother History of anesthesia reaction Basal cell carcinoma Chronic fatigue syndrome Maternal Grandmother Osteoporosis Uncle Family history of prostate cancer Lymphoma Parkinsonism, Onset Age: 60 Aunt Breast cancer, Onset Age: 47 Ovarian cancer, Onset Age: 47 Family/Other Breast cancer, Onset Age: 62 Social History Narrative: Lives with significant other for of 9 years, 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 [employer], 2 adult children, [employer] steps daily work, Maritza Thomas quit smoking 09/2024 before then quit at age 29 with 25 pack years, drinks 7 drinks a week, uses marijuana daily What is your current living situation?: I presently have a place to live Problems where you live: no known problems In the past 12 months, utilities in danger of being shut off: no In past 12 months, lack of transportation kept you from medical appts, meetings, work, or getting things needed for daily living: no In the past 12 mos, have been you worried that your food would run out before you had money to buy more?: never true In the past 12 mos, the food you bought just didn't last and you didn't have money to buy more?: never true Smoking Status: Current every day smoker How often do you have a drink containing alcohol: 2-3 times a week How many standard drinks containing alcohol do you have on a typical day: 1 or 2 How often do you have six or more drinks on one occasion: Never AUDIT-C Alcohol total score: 3 Non-prescribed substance use: denies use How often does anyone, including family, friends and others, physically hurt you: never How often does anyone, including family, friends and others, insult or talk down to you: never How often does anyone, including family, friends and others, threaten you with harm: never How often does anyone, including family, friends and others, scream or curse at you: never Exam Narrative: Exam Narrative: EXAM GENERAL: Patient appears comfortable and well. EYES: No scleral icterus. ENT: Tympanic membranes and oropharynx normal. THYROID: no thyroid nodules or thyromegaly. LYMPH: No supraclavicular or cervical lymphadenopathy. SKIN: Visible skin seen during exam normal or with benign process only. EXT: No dependent lower extremity pedal edema. HEART: Regular rate and rhythm with no murmurs, rubs, or gallops. LUNGS: Clear to auscultation bilaterally with no crackles or wheezes. ABD: Soft, non tender, non distended. PSYCH: Good eye contact, speech is not pressured. Neurologic cranial nerves 2-12 grossly intact no focal defects Const: Vital Signs, click to edit/add: Vital Signs - 24 hr 04/03/25 06:58 Temperature 97.3 F L Pulse Rate [Right Pulse Oximeter] 69 Respiratory Rate 18 Blood Pressure [Ri ght Upper Arm] 92/66 Pulse Oximetry 95 Oxygen Delivery Me thod Room Air Course Course ED Course: Patient presents with symptoms of sciatica which no lower symptoms. She had imaging yesterday and I do not believe for repeating imaging today would be reasonable. She is currently being treated for urinary tract infection and I do think she can finish out the ciprofloxacin. In addition, she will receive 5 day course of prednisone take Tylenol and advanced activity as tolerated. She does C1 the primary physicians here at the hospital and did recommend she follow-up next week if symptoms persist and be scheduled for CT of her lumbar spine as she does have pins and screws that would affect the findings on MRI. Vital Signs Vital signs: Initial Vital Signs Temperature 97.3 F L 04/03/25 06:58 Temperature Source Temporal Artery Scan 04/03/25 06:58 Pulse Rate 69 04/03/25 06:58 Pulse Rhythm Regular 04/03/25 06:58 Pulse Strength 3+ Normal 04/03/25 06:58 Respiratory Rate 18 04/03/25 06:58 Blood Pressure 92/66 04/03/25 06:58 Blood Pressure Mean 74 04/03/25 06:58 Blood Pressure Position Sitting 04/03/25 06:58 Pulse Oximetry 95 04/03/25 06:58 Oxygen Delivery Method Room Air 04/03/25 06:58 Vital Signs Temperature 97.3 F L 04/03/25 06:58 Pulse Rate 69 04/03/25 06:58 Respiratory Rate 18 04/03/25 06:58 Blood Pressure 92/66 04/03/25 06:58 Pulse Oximetry 95 04/03/25 06:58 Oxygen Delivery Method Room Air 04/03/25 06:58 Temperature 97.3 F L 04/03/25 06:58 Pulse Rate 69 04/03/25 06:58 Respiratory Rate 18 04/03/25 06:58 Blood Pressure 92/66 04/03/25 06:58 Pulse Oximetry 95 04/03/25 06:58 Oxygen Delivery Method Room Air 04/03/25 06:58 Discharge Plan Discharge Clinical Impression: Sciatica Patient Disposition: Home, Self-Care Condition: Stable Instructions: Sciatica (ED) Additional Instructions: Tylenol as directed Prednisone as directed Continue current medications Contact your doctor next week to discuss further imaging if symptoms do not improve. Activity Level: No Restrictions Discharge Diet: Regular Prescriptions: No Action amitriptyline 25 mg tablet 25 mg PO QDAY duloxetine 20 mg capsule,delayed release(DR/EC) 20 mg PO QDAY buspirone 15 mg tablet 15 mg PO BID buspirone 30 mg tablet PO topiramate 200 mg tablet PO ciprofloxacin HCl 500 mg tablet 500 mg PO BID 7 Days Qty: 14 0RF vitamin B complex [B Complex-Vitamin B12] Tablet 1 tab PO QDAY epinephrine 0.3 mg/0.3 mL auto-injector 0.3 mg IM ONCE PRN (Reason: hypersensitivity reaction) Qty: 2 0RF Rx Instructions: as a single dose; may repeat once Ubrelvy 100 mg tablet 100 mg PO ONCE PRN Rx Instructions: as a single dose; may repeat once in >=2 hours after first dose if needed lisinopril-hydrochlorothiazide 10-12.5 mg tablet 1 tab PO QDAY Qty: 90 3RF omega-3 acid ethyl esters 1 gram capsule 1 cap PO QDAY Qty: 90 3RF topiramate 50 mg tablet 50 mg PO DAILY pregabalin 225 mg capsule 225 mg PO DAILY omeprazole 20 mg capsule,delayed release(DR/EC) 20 mg PO DAILY metoprolol succinate 25 mg tablet extended release 24 hr 25 mg PO DAILY rosuvastatin 20 mg tablet 20 mg PO DAILY Follow Up/Referrals: Lela Giraldo MD [Primary Care Provider, Family Practice] Stand Alone Forms: [facility] Info Instructions
== END 2025-04-03 08:30 | disposition home or self-care (01) ==
LOC: ED 08:25
PROVIDERS: Emergency Provider Internal Medicine; PCP Family Medicine
DX: M54.32 Sciatica, left side (principal); M54.31 Sciatica, right side
CPT/HCPCS: 99283

== ENCOUNTER 2025-05-07 07:31 | Outpatient (CLI) | payer BC, SELFPAY ==
--- NOTE | 2025-05-07 09:45 | CRLHL7_ITS ---
For Patients: As a result of the Century Cures Act, medical imaging exams and procedure reports are released immediately into your electronic medical record. You may view this report before your referring provider. If you have questions, please contact your health care provider. INDICATION: BILATERAL SCREENING MAMMOGRAM, ASYMPTOMATIC 54 Y/O FEMALE COMPARISON: 04/10/2024, 03/29/2023, 10/13/2021 TECHNIQUE: Digital mammogram in CC and MLO projections including computer-aided detection (CAD) and tomosynthesis. BREAST COMPOSITION: There are scattered areas of fibroglandular density. FINDINGS: No suspicious findings. ASSESSMENT: BI-RADS 1 Negative RECOMMENDATION: Annual screening mammogram. A lay language report of this examination will be provided to the patient. Dictated by: Teagan Lazo MD @ 05/08/2025 22:10:45 (Electronically Signed)
== END 2025-05-07 07:32 | disposition home or self-care (01) ==
LOC: MAMMO 07:32
PROVIDERS: PCP Family Medicine; Visit Provider Family Medicine
DX: Z12.31 Encounter for screening mammogram for malignant neoplasm of breast (principal)
CPT/HCPCS: 77063; 77067

== ENCOUNTER 2025-05-14 07:50 | Outpatient (CLI) | payer BC, SELFPAY ==
--- NOTE | 2025-05-14 08:00 | CRLHL7_ITS ---
For Patients: As a result of the Century Cures Act, medical imaging exams and procedure reports are released immediately into your electronic medical record. You may view this report before your referring provider. If you have questions, please contact your health care provider. INDICATION: Lung cancer screening. History of smoking. TECHNIQUE: Low-dose lung cancer screening non-contrast CT chest. Dose reduction techniques were used. COMPARISON: None. FINDINGS: NODULES: 4.6 millimeter nodule in the right lower lobe adjacent to the fissure, 3/65. 2.2 millimeter nodule in the anterior right lung, 3/44. LUNGS AND PLEURA: Left lower lobe scarring, mild. MEDIASTINUM: Minimal atherosclerotic change. No adenopathy. Visualized thyroid normal. CORONARY ARTERY CALCIFICATION: None. LIMITED UPPER ABDOMEN: Unremarkable. MUSCULOSKELETAL: Normal. IMPRESSION: Negative for lung cancer screening purposes. LUNG-RADS CATEGORY: 2: Benign. RADIOLOGIST RECOMMENDATION: Continue annual screening, if eligible, with low-dose CT chest in 12 months. Please note that all CT scans at this facility use dose modulation, iterative reconstruction, and/or weight-based dosing when appropriate to reduce radiation dose to as low as reasonably achievable. Dictated by Kirk Plunkett MD @ 05/14/2025 9:02:41 AM (Electronically Signed)
== END 2025-05-14 07:51 | disposition home or self-care (01) ==
LOC: CT 07:51
PROVIDERS: PCP Family Medicine; Visit Provider Family Medicine
DX: Z12.2 Encounter for screening for malignant neoplasm of respiratory organs (principal); F17.210 Nicotine dependence, cigarettes, uncomplicated
CPT/HCPCS: 71271

== ENCOUNTER 2025-05-28 07:35 | Outpatient (CLI) | payer BC, SELFPAY | END 2025-05-28 07:36 | disposition home or self-care (01) | LOC: NFLDREF 06-01 16:02 | PROVIDERS: PCP Family Medicine; Referring Provider Family Medicine; Visit Provider Family Medicine | DX: E53.8 Deficiency of other specified B group vitamins (principal); I12.9 Hypertensive chronic kidney disease with stage 1 through stage 4 chronic kidney disease, or unspecified chronic kidney disease; N18.2 Chronic kidney disease, stage 2 (mild); E78.2 Mixed hyperlipidemia | CPT/HCPCS: 80053; 82607 ==

== ENCOUNTER 2025-07-31 17:25 | Outpatient (CLI) | payer BC, SELFPAY | END 2025-07-31 17:26 | disposition home or self-care (01) | LOC: NFLDREF 08-05 19:36 | PROVIDERS: PCP Family Medicine; Referring Provider Family Medicine; Visit Provider Physician Assistant | DX: N39.0 Urinary tract infection, site not specified (principal) | CPT/HCPCS: 87086 ==

== ENCOUNTER 2025-09-12 09:34 | Outpatient (CLI) | payer BC, SELFPAY | END 2025-09-12 09:35 | disposition home or self-care (01) | LOC: NFLDREF 09-14 13:57 | PROVIDERS: PCP Family Medicine; Referring Provider Family Medicine; Visit Provider Family Medicine | DX: R30.0 Dysuria (principal); R35.0 Frequency of micturition | CPT/HCPCS: 87086 ==